=== PATIENT | female | born 1955 | race Caucasian/White ===

== ENCOUNTER 2017-08-08 10:49 | Day surgery (SDC) | payer MEDICARE, SELFPAY | END 2017-08-08 18:00 | disposition home or self-care (01) | PROVIDERS: Family Provider Family Medicine; PCP Family Medicine; Visit Provider Orthopaedic Surgery ==

== ENCOUNTER 2017-10-08 12:11 | Emergency (ER) | payer MEDICARE, MEDICAID, SELFPAY ==
[2017-10-08 12:27] VITALS: BP 122/83; PULSE 80; RESP 14; O2SAT 99
--- NOTE | 2017-10-08 12:49 | DI.CT.S_ITS ---
PROCEDURE: CT HEAD/BRAIN WO CON INDICATIONS: hx of cva headache one week TECHNIQUE: Noncontrast 4.5 mm thick angled axial sections acquired from the foramen magnum to the vertex, with coronal and sagittal reformats. For radiation dose reduction, the following was used: automated exposure control, adjustment of mA and/or kV according to patient size. COMPARISON: [facility], MR, STROKE PROTOCOL, 08/10/2017, 11:24. [facility], CT, HEAD WITHOUT CONTRAST, 08/10/2017, 6:31. [facility], CT, HEAD WITHOUT CONTRAST, 12/25/2014, 15:03. FINDINGS: Image quality: Excellent. CSF spaces: Basal cisterns are patent. No extra-axial fluid collections. The ventricles are symmetric in size and shape. Brain: No intracranial bleeds or masses. There is cerebral volume loss for age, with resultant ventricular and sulcal prominence. There are periventricular and deep white matter chronic small vessel ischemic changes. Old, small, lacunar infarcts involving the right globus pallidus, right internal capsule, right thalamus and right erickson radiata are stable compared to prior CT scan obtained 08/10/2017. Chronic infarct involving the left frontal centrum semiovale noted has undergone expected evolution in the interval since prior MRI obtained 08/10/17. There is intracranial internal carotid artery atherosclerosis. Skull and face: Calvarium and visualized facial bones appear intact, without suspicious lesions. Sinuses: Visualized sinuses and mastoids are clear. IMPRESSION: No acute intracranial disease process. Dictated by: Rosalinda Suazo MD, PhD on 10/08/2017 at 12:04 Approved by: Rosalinda Suazo MD, PhD on 10/08/2017 at 12:09
[2017-10-08 12:59] LABS: Hematocrit 39.6 % (36-46); Hemoglobin 13.3 g/dL (12.0-16.0); White Blood Cell Count 11.5 X10^3/uL (4.5-11.0)
[2017-10-08 13:00] VITALS: BP 122/83; PULSE 80; RESP 14; TEMP 36.9; O2SAT 99
[2017-10-08 13:00] LABS: Add Manual Diff / Slide Review NO; Basophils Percent Auto 0.2 % (0-2); Eosinophils Percent Auto 0.3 % (2-4); Mean Corpuscular HGB Conc 33.6 % (30-36); Mean Corpuscular Hemoglobin 30.9 PG (26-34); Mean Corpuscular Volume 92.1 fL (80-100); Monocytes Percent Auto 9.3 % (3-14); Neutrophils Absolute Auto 8600 /uL (3000-5900); Neutrophils Percent Auto 75.2 % (50-75); Platelet Count 269 X10^3/uL (150-400); Prothrombin Time 10.7 SECONDS (10.1-12.7); Red Cell Distribution Width 14.2 % (11.6-14.8)
--- NOTE | 2017-10-08 13:00 | ED_ITS ---
HPI - General Adult <Chucky GarciaGARY - Last Filed: 10/08/17 21:46> General Chief complaint: Diabetic Problem Stated complaint: LOW BLOOD PRESSURE, HIGH BLOOD SUGAR Time Seen by Provider: 10/08/17 12:16 History of Present Illness HPI narrative: 62-year-old female here for complaint of having high blood sugar and low blood pressure she was seen at her primary care provider office and sent to the emergency room for further evaluation. She was recently in [facility] due to recent history of a CVA secondary to hypertension. She reports that while she was there she was able to gain a 8-10 lb. However over the last few weeks she has been at home and she reports that she has lost 8 lb that she has not been eating while she just not has had the desire to eat and also having nausea. She denies any chest pain or shortness of breath she does report that she has had a headache on and off over the past week. No fevers or chills. She denies having any headache at this current time. She has a history of a poor diabetic control. She reports that she has been taking her insulin as prescribed and her blood pressure medicines as prescribed. Patient also complains that her left shoulder has been causing her pain and she is currently awaiting repair surgery to a previous fracture repair to left humerus. She states that she has a bump that feels different than it has before to her left shoulder she denies any trauma. She is alert and awake no acute distress Related Data Home Medications Medication Instructions Recorded Confirmed Marijuana 1 ea DAILY 10/08/17 10/08/17 acetaminophen 325 mg PO Q4HP PRN 10/08/17 10/08/17 atorvastatin 40 mg PO QPM 10/08/17 10/08/17 cholecalciferol (vitamin D3) 1,000 unit PO DAILY 10/08/17 10/08/17 [Vitamin D3] hydrocodone-acetaminophen 1 tab PO Q4H PRN 10/08/17 10/08/17 insulin aspart U-100 [Novolog 5 - 10 unit SQ QIDACHS 10/08/17 10/08/17 Flexpen U-100 Insulin] insulin glargine [Lantus Solostar 15 unit SQ HS 10/08/17 10/08/17 U-100 Insulin] multivitamin 1 tab PO DAILY 10/08/17 10/08/17 zolpidem 2.5 mg PO QHS 10/08/17 10/08/17 Previous Rx's Medication Instructions Recorded aspirin 325 mg PO QDAY #30 tab 08/13/17 mirtazapine 7.5 mg PO HS #30 d 08/13/17 ondansetron 4 mg PO Q6H PRN #10 tab 10/08/17 Allergies Allergy/AdvReac Type Severity Reaction Status Date / Time Iodine and Iodide Containing Allergy Unknown Verified 10/08/17 13:57 Produc [IODINE AND IODIDE CONTAINING PRODUC] latex [LATEX] Allergy Unknown Verified 10/08/17 13:57 Review of Systems <GARY Vincent - Last Filed: 10/08/17 21:46> Constitutional Reports headache(s) Eyes Denies change in vision, Denies eye discharge, Denies irritation and Denies loss of vision ENT Ears, Nose, Mouth, and Throat: Reports headache(s) Cardiovascular Denies dyspnea and Denies dyspnea on exertion Comments: Low blood pressure Respiratory Denies cough, Denies dyspnea, Denies dyspnea on exertion and Denies wheezing Gastrointestinal Gastrointestinal: Reports nausea Genitourinary Denies hematuria, Denies flank pain, Denies urinary incontinence and Denies urinary urgency Musculoskeletal Denies back pain, Denies muscle weakness, Denies numbness and Denies tingling Integumentary/Breasts Denies pruritus, Denies erythema, Denies rash and Denies wounds Neurologic Reports headache(s), Denies loss of vision, Denies numbness and Denies tingling Endocrine Comments: Elevated blood sugar Allergic/Immunologic Denies wheezing Exam <GARY Vincent - Last Filed: 10/08/17 21:46> Initial Vital Signs Initial Vital Signs: Vital Signs Pulse Rate 80 10/08/17 12:27 Respiratory Rate 14 10/08/17 12:27 Blood Pressure 122/83 H 10/08/17 12:27 Pulse Oximetry 99 10/08/17 12:27 Const General: frail appearing Nutritional Appearance: thin Orientation: alert, awake and oriented x3 HENMT Mouth: oral mucosae normal and moist mucous membranes Eyes General: appearance normal, both eyes and all related structures Eyelids: eyelids normal Conjunctivae: conjunctivae normal Sclera: sclerae normal Pupils: PERRL EOM: EOM intact bilaterally and No nystagmus Resp Effort & Inspection: normal respiratory effort, able to speak in complete sentences, no respiratory distress and no use of accessory muscles Auscultation: clear to auscultation bilaterally, no rales, no rhonchi and no wheezes Cardio Rate: regular rate Rhythm: regular rhythm Heart Sounds: no click, no gallops, no murmurs and no rubs GI Inspection: non-distended Palpation: soft, no hepatosplenomegaly, No guarding, No pulsatile mass and No tender Auscultation: normal bowel sounds Skin General: no rashes or lesions noted, No jaundice and No petechiae Neuro General: CN's II-XI intact bilaterally Cranial Nerves: tongue midline, hearing normal, able to rotate head bilaterally and No nystagmus Cognition: normal cognition Speech: speech normal Motor: strength 5/5 throughout Sensory Exam: no sensory deficits noted <Brown Gonsales DO - Last Filed: 10/15/17 18:12> Initial Vital Signs Initial Vital Signs: Vital Signs Pulse Rate 80 10/08/17 12:27 Respiratory Rate 14 10/08/17 12:27 Blood Pressure 122/83 H 10/08/17 12:27 Pulse Oximetry 99 10/08/17 12:27 Course <GARY Vincent - Last Filed: 10/08/17 21:46> Orders Ordered: Discontinued Medications Hydromorphone HCl (Dilaudid) 0.5 mg IV NOW ONE Stop: 10/08/17 13:47 Last Admin: 10/08/17 14:00 Dose: 0.5 mg Sodium Chloride (Normal Saline 0.9%) 1,000 mls @ 150 mls/hr IV CONT MIRIAM Last Infusion: 10/08/17 15:55 Dose: 150 mls/hr Admin: 10/08/17 14:01 Dose: 150 mls/hr Sodium Chloride (Normal Saline 0.9%) 500 mls @ 1,000 mls/hr IV BOLUS ONE Stop: 10/08/17 13:12 Last Infusion: 10/08/17 13:57 Dose: 0 mls/hr Admin: 10/08/17 13:41 Dose: 1,000 mls/hr Insulin Human Regular (Humulin R) 10 unit IV NOW ONE Stop: 10/08/17 12:45 Last Admin: 10/08/17 13:41 Dose: 10 unit Ondansetron HCl (Zofran) 4 mg IV NOW ONE Stop: 10/08/17 12:38 Last Admin: 10/08/17 13:41 Dose: 4 mg Vital Signs - 8 hr 10/08/17 14:00 10/08/17 14:53 10/08/17 15:46 Pulse Rate 81 73 76 Respiratory Rate 20 14 16 Blood Pressure [Left Arm] 112/64 106/70 107/69 Pulse Oximetry 98 98 98 <Brown Gonsales DO - Last Filed: 10/15/17 18:12> Orders Ordered: Discontinued Medications Hydromorphone HCl (Dilaudid) 0.5 mg IV NOW ONE Stop: 10/08/17 13:47 Last Admin: 10/08/17 14:00 Dose: 0.5 mg Sodium Chloride (Normal Saline 0.9%) 1,000 mls @ 150 mls/hr IV CONT MIRIAM Last Infusion: 10/08/17 15:55 Dose: 150 mls/hr Admin: 10/08/17 14:01 Dose: 150 mls/hr Sodium Chloride (Normal Saline 0.9%) 500 mls @ 1,000 mls/hr IV BOLUS ONE Stop: 10/08/17 13:12 Last Infusion: 10/08/17 13:57 Dose: 0 mls/hr Admin: 10/08/17 13:41 Dose: 1,000 mls/hr Insulin Human Regular (Humulin R) 10 unit IV NOW ONE Stop: 10/08/17 12:45 Last Admin: 10/08/17 13:41 Dose: 10 unit Ondansetron HCl (Zofran) 4 mg IV NOW ONE Stop: 10/08/17 12:38 Last Admin: 10/08/17 13:41 Dose: 4 mg Vital Signs - 8 hr 10/08/17 14:00 10/08/17 14:53 10/08/17 15:46 Pulse Rate 81 73 76 Respiratory Rate 20 14 16 Blood Pressure [Left Arm] 112/64 106/70 107/69 Pulse Oximetry 98 98 98 Medical Decision Making <GARY Vincent - Last Filed: 10/08/17 21:46> MDM Narrative Medical decision making narrative: Patient was given 500 mL fluids in the emergency room and 10 units of regular insulin which reduced her blood sugar. She had negative ketones in her urine or in her serum. Head CT was obtained and was negative for any acute findings. The x-ray of the left shoulder was obtained was also negative for any acute findings. Due to patient's weight loss and elevated blood sugar discussed case with hospitalist Dr. Vu about admission for failure to thrive and hyperglycemia and he would rather patient follow up with primary care provider with no admission at this time. Discussed case with Dr. Streeter for primary care provider who will follow up with patient here in the next day or 2. She is prescribed Zofran to help with the nausea.. She is instructed to hold her blood pressure medications until follow-up with primary care. Take insulin as directed. For any worsening symptoms return to the emergency room. Lab Data Result diagrams: 10/08/17 12:30 10/08/17 12:30 Lab Results 10/08/17 10/08/17 10/08/17 Range/Units 12:30 12:30 12:30 WBC 11.5 H (4.5-11.0) X10^3/uL RBC 4.30 (4.0-5.2) X10^6/uL Hgb 13.3 (12.0-16.0) g/dL Hct 39.6 (36-46) % MCV 92.1 (80-100) fL MCH 30.9 (26-34) PG MCHC 33.6 (30-36) % RDW 14.2 (11.6-14.8) % Plt Count 269 (150-400) X10^3/uL Neut % (Auto) 75.2 H (50-75) % Lymph % (Auto) 15.0 L (25-40) % Antelope % (Auto) 9.3 (3-14) % Eos % (Auto) 0.3 L (2-4) % Baso % (Auto) 0.2 (0-2) % Neut # (Auto) 8600 H (5085-9604) /uL PT (10.1-12.7) SECONDS INR (0.9-1.3) Sodium 133 L (137-145) mmol/L Potassium 5.5 H (3.4-5.1) mmol/L Chloride 93.0 L (98-107) mmol/L Carbon Dioxide 26.0 (22-32) mmol/L BUN 26.0 H (7-17) mg/dL Creatinine 0.70 (0.52-1.04) mg/dL Estimated GFR > 60.0 (>60) mL/min BUN/Creatinine Ratio 37.1 H (6-22) Glucose 477 H (80-110) mg/dL Calcium 9.4 (8.4-10.2) mg/dL Total Bilirubin 0.9 (0.2-1.3) mg/dL AST 74 H (14-36) IU/L ALT 113 H (9-52) IU/L Alkaline Phosphatase 127 H (38-126) U/L Total Creatine Kinase 42 (30-135) U/L Troponin I < 0.012 (0.01-0.034) ng/mL Total Protein 6.6 (6.3-8.2) g/dL Albumin 3.8 (3.5-5.0) g/dL Globulin 2.8 (1.7-4.1) g/dL Albumin/Globulin Ratio 1.4 (1.0-2.8) Ketones 0.09 (<0.27) mmol/L 10/08/17 Range/Units 12:30 WBC (4.5-11.0) X10^3/uL RBC (4.0-5.2) X10^6/uL Hgb (12.0-16.0) g/dL Hct (36-46) % MCV (80-100) fL MCH (26-34) PG MCHC (30-36) % RDW (11.6-14.8) % Plt Count (150-400) X10^3/uL Neut % (Auto) (50-75) % Lymph % (Auto) (25-40) % Antelope % (Auto) (3-14) % Eos % (Auto) (2-4) % Baso % (Auto) (0-2) % Neut # (Auto) (6562-7175) /uL PT 10.7 (10.1-12.7) SECONDS INR 1.0 (0.9-1.3) Sodium (137-145) mmol/L Potassium (3.4-5.1) mmol/L Chloride (98-107) mmol/L Carbon Dioxide (22-32) mmol/L BUN (7-17) mg/dL Creatinine (0.52-1.04) mg/dL Estimated GFR (>60) mL/min BUN/Creatinine Ratio (6-22) Glucose (80-110) mg/dL Calcium (8.4-10.2) mg/dL Total Bilirubin (0.2-1.3) mg/dL AST (14-36) IU/L ALT (9-52) IU/L Alkaline Phosphatase (38-126) U/L Total Creatine Kinase (30-135) U/L Troponin I (0.01-0.034) ng/mL Total Protein (6.3-8.2) g/dL Albumin (3.5-5.0) g/dL Globulin (1.7-4.1) g/dL Albumin/Globulin Ratio (1.0-2.8) Ketones (<0.27) mmol/L Imaging Data CT scan - head: Radiologist's impression: PROCEDURE: CT HEAD/BRAIN WO CON INDICATIONS: hx of cva headache one week TECHNIQUE: Noncontrast 4.5 mm thick angled axial sections acquired from the foramen magnum to the vertex, with coronal and sagittal reformats. For radiation dose reduction, the following was used: automated exposure control, adjustment of mA and/or kV according to patient size. COMPARISON: [facility], MR, STROKE PROTOCOL, 08/10/2017, 11:24. [facility], CT, HEAD WITHOUT CONTRAST, 08/10/2017, 6:31. [facility], CT, HEAD WITHOUT CONTRAST, 12/25/2014, 15:03. FINDINGS: Image quality: Excellent. CSF spaces: Basal cisterns are patent. No extra-axial fluid collections. The ventricles are symmetric in size and shape. Brain: No intracranial bleeds or masses. There is cerebral volume loss for age , with resultant ventricular and sulcal prominence. There are periventricular and deep white matter chronic small vessel ischemic changes. Old, small, lacunar infarcts involving the right globus pallidus, right internal capsule, right thalamus and right erickson radiata are stable compared to prior CT scan obtained 08/10/2017. Chronic infarct involving the left frontal centrum semiovale noted has undergone expected evolution in the interval since prior MRI obtained 08/10/17. There is intracranial internal carotid artery atherosclerosis. Skull and face: Calvarium and visualized facial bones appear intact, without suspicious lesions. Sinuses: Visualized sinuses and mastoids are clear. IMPRESSION: No acute intracranial disease process. Dictated by: Rosalinda Suazo MD, PhD on 10/08/2017 at 12:04 Approved by: Rosalinda Suazo MD, PhD on 10/08/2017 at 12:09 left shoulder: Radiologist's impression: PROCEDURE: XR SHOULDER LT MIN 2V INDICATIONS: ongoing pain to left shoulder TECHNIQUE: 3 views of the shoulder were acquired. COMPARISON: [facility], CR, SHOULDER MINIMUM 2 VIEW LEFT, 07/14/2017, 12: 42. [facility], CR, HUMERUS 2V LEFT, 07/17/2017, 20:04. [facility] [place], CR, XR SHOULDER 2+ VIEWS LEFT, 08/07/2017, 13:20. FINDINGS: Bones: There is a humeral head and neck fracture with superior migration of the humeral shaft. There is internal fixation with a surgical plate and multiple surgical screws. The alignment is unchanged from 08/07/18. No suspicious bony lesions. Visualized ribs appear intact. Soft tissues: No suspicious soft tissue calcifications. IMPRESSION: Stable alignment of left humeral head and neck fracture which is internally fixated. ECG Data Interpretation: EKG shows sinus rhythm with no ST elevation or depression. No ectopy. Ventricular rate is 75. Pr interval 158. QRS duration of 82. QTC of 422. <Brown Gonsales, DO - Last Filed: 10/15/17 18:12> Lab Data Lab Results 10/08/17 10/08/17 10/08/17 Range/Units 12:30 12:30 12:30 WBC 11.5 H (4.5-11.0) X10^3/uL RBC 4.30 (4.0-5.2) X10^6/uL Hgb 13.3 (12.0-16.0) g/dL Hct 39.6 (36-46) % MCV 92.1 (80-100) fL MCH 30.9 (26-34) PG MCHC 33.6 (30-36) % RDW 14.2 (11.6-14.8) % Plt Count 269 (150-400) X10^3/uL Neut % (Auto) 75.2 H (50-75) % Lymph % (Auto) 15.0 L (25-40) % Antelope % (Auto) 9.3 (3-14) % Eos % (Auto) 0.3 L (2-4) % Baso % (Auto) 0.2 (0-2) % Neut # (Auto) 8600 H (3322-3777) /uL PT (10.1-12.7) SECONDS INR (0.9-1.3) Sodium 133 L (137-145) mmol/L Potassium 5.5 H (3.4-5.1) mmol/L Chloride 93.0 L (98-107) mmol/L Carbon Dioxide 26.0 (22-32) mmol/L BUN 26.0 H (7-17) mg/dL Creatinine 0.70 (0.52-1.04) mg/dL Estimated GFR > 60.0 (>60) mL/min BUN/Creatinine Ratio 37.1 H (6-22) Glucose 477 H (80-110) mg/dL Calcium 9.4 (8.4-10.2) mg/dL Total Bilirubin 0.9 (0.2-1.3) mg/dL AST 74 H (14-36) IU/L ALT 113 H (9-52) IU/L Alkaline Phosphatase 127 H (38-126) U/L Total Creatine Kinase 42 (30-135) U/L Troponin I < 0.012 (0.01-0.034) ng/mL Total Protein 6.6 (6.3-8.2) g/dL Albumin 3.8 (3.5-5.0) g/dL Globulin 2.8 (1.7-4.1) g/dL Albumin/Globulin Ratio 1.4 (1.0-2.8) Ketones 0.09 (<0.27) mmol/L 10/08/17 Range/Units 12:30 WBC (4.5-11.0) X10^3/uL RBC (4.0-5.2) X10^6/uL Hgb (12.0-16.0) g/dL Hct (36-46) % MCV (80-100) fL MCH (26-34) PG MCHC (30-36) % RDW (11.6-14.8) % Plt Count (150-400) X10^3/uL Neut % (Auto) (50-75) % Lymph % (Auto) (25-40) % Antelope % (Auto) (3-14) % Eos % (Auto) (2-4) % Baso % (Auto) (0-2) % Neut # (Auto) (7396-5826) /uL PT 10.7 (10.1-12.7) SECONDS INR 1.0 (0.9-1.3) Sodium (137-145) mmol/L Potassium (3.4-5.1) mmol/L Chloride (98-107) mmol/L Carbon Dioxide (22-32) mmol/L BUN (7-17) mg/dL Creatinine (0.52-1.04) mg/dL Estimated GFR (>60) mL/min BUN/Creatinine Ratio (6-22) Glucose (80-110) mg/dL Calcium (8.4-10.2) mg/dL Total Bilirubin (0.2-1.3) mg/dL AST (14-36) IU/L ALT (9-52) IU/L Alkaline Phosphatase (38-126) U/L Total Creatine Kinase (30-135) U/L Troponin I (0.01-0.034) ng/mL Total Protein (6.3-8.2) g/dL Albumin (3.5-5.0) g/dL Globulin (1.7-4.1) g/dL Albumin/Globulin Ratio (1.0-2.8) Ketones (<0.27) mmol/L Discharge Plan Departure Patient Disposition: Home, Self-Care Clinical Impression: Hyperglycemia, Weight loss, non-intentional Discharge Date/Time: 10/08/17 15:59 Interventions: ED Discharge Assessment Last Done: 10/08/17 15:54 Instructions: DI for Hyperglycemia -- Adult Activity Restrictions/Additional Instructions: CT of the head was obtained was negative for any acute findings. X-ray of the left shoulder was also obtained was also negative. Blood sugar was elevated on arrival today year given fluids and insulin and it was able to lower the blood sugar. Blood pressure was normal today in the emergency room. However due to reported her blood pressure being low prior to arrival hold your blood pressure medicines until follow-up with primary care provider. Follow up with primary care provider tomorrow or the next day for re-evaluation. Continue use insulin as directed. You are prescribed Zofran to help with nausea also use as directed. Call primary care office tomorrow to schedule follow-up appointment tomorrow or the following day. For any worsening symptoms return to the emergency room. Prescriptions: New ondansetron 4 mg tablet,disintegrating 4 mg PO Q6H PRN (Reason: nausea and vomiting) Qty: 10 RF: 0 No Action aspirin 325 MG tablet,delayed release (DR/EC) 325 mg PO QDAY Qty: 30 RF: 0 mirtazapine 7.5 MG tablet 7.5 mg PO HS Qty: 30 RF: 0 Marijuana 1 ea DAILY RF: 0 multivitamin Tablet 1 tab PO DAILY RF: 0 atorvastatin 40 mg tablet 40 mg PO QPM RF: 0 hydrocodone-acetaminophen 5-325 mg tablet 1 tab PO Q4H PRN (Reason: humerus fx pain) RF: 0 zolpidem 5 mg tablet 2.5 mg PO QHS RF: 0 cholecalciferol (vitamin D3) [Vitamin D3] 1,000 unit Capsule 1,000 unit PO DAILY RF: 0 insulin aspart U-100 [Novolog Flexpen U-100 Insulin] 100 UNIT/1 ML insulin pen 5 - 10 unit SQ QIDACHS RF: 0 insulin glargine [Lantus Solostar U-100 Insulin] 100 UNIT/1 ML insulin pen 15 unit SQ HS RF: 0 acetaminophen 325 MG tablet 325 mg PO Q4HP PRN (Reason: Pain, Mild) RF: 0 Referrals: Jyoti Streeter MD [Primary Care Provider] - <Brown Gonsales DO - Last Filed: 10/15/17 18:12> Cosign ED Attending Shari Attestation: I was available for consultation during this patient's emergency department encounter
[2017-10-08 13:08] LABS: Alanine Aminotransferase 113 IU/L (9-52); Albumin 3.8 g/dL (3.5-5.0); Albumin Globulin Ratio 1.4 (1.0-2.8); Alkaline Phosphatase 127 U/L (38-126); Aspartate Aminotransferase 74 IU/L (14-36); BUN Creatinine Ratio 37.1 (6-22); Bilirubin Total 0.9 mg/dL (0.2-1.3); Calcium 9.4 mg/dL (8.4-10.2); Creatine Kinase 42 U/L (30-135); Estimated Glomerular Filt Rate > 60.0 mL/min (>60); Globulin 2.8 g/dL (1.7-4.1); Glucose 477 mg/dL (80-110); HEMOLYSIS < 15 (0-50); Sodium 133 mmol/L (137-145); Total Protein 6.6 g/dL (6.3-8.2)
[2017-10-08 13:18] LABS: Potassium 5.5 mmol/L (3.4-5.1)
[2017-10-08 13:20] LABS: Troponin I < 0.012 ng/mL (0.01-0.034)
[2017-10-08] MEDS: INSULIN REGULAR 100 UNIT/ML 3 ML VIAL 10 UNIT IV (13:41)
[2017-10-08] MEDS: ONDANSETRON 4 MG/2 ML INJ IV (13:41)
[2017-10-08] MEDS: SODIUM CHLORIDE 0.9% 500 ML 1000 ML IV (13:41)
[2017-10-08 13:43] LABS: Ketones (Beta-Hydroxybutyrate) 0.09 mmol/L (<0.27)
[2017-10-08 14:00] VITALS: BP 112/64; PULSE 81; RESP 20; O2SAT 98
[2017-10-08] MEDS: HYDROMORPHONE 0.5 MG INJ IV (14:00)
[2017-10-08] MEDS: SODIUM CHLORIDE 0.9% 1,000 ML 150 ML IV (14:01)
--- NOTE | 2017-10-08 14:14 | DI.RAD.S_ITS ---
PROCEDURE: XR SHOULDER LT MIN 2V INDICATIONS: ongoing pain to left shoulder TECHNIQUE: 3 views of the shoulder were acquired. COMPARISON: [facility], , SHOULDER MINIMUM 2 VIEW LEFT, 07/14/2017, 12:42. [facility], CR, HUMERUS 2V LEFT, 07/17/2017, 20:04. [facility] [place], CR, XR SHOULDER 2+ VIEWS LEFT, 08/07/2017, 13:20. FINDINGS: Bones: There is a humeral head and neck fracture with superior migration of the humeral shaft. There is internal fixation with a surgical plate and multiple surgical screws. The alignment is unchanged from 08/07/18. No suspicious bony lesions. Visualized ribs appear intact. Soft tissues: No suspicious soft tissue calcifications. IMPRESSION: Stable alignment of left humeral head and neck fracture which is internally fixated. Dictated by: Aristeo Mendoza M.D. on 10/08/2017 at 14:48 Approved by: Aristeo Mendoza M.D. on 10/08/2017 at 15:06
[2017-10-08 14:53] VITALS: BP 106/70; PULSE 73; RESP 14; O2SAT 98
[2017-10-08 15:46] VITALS: BP 107/69; PULSE 76; RESP 16; O2SAT 98
== END 2017-10-08 15:59 | disposition home or self-care (01) ==
PROVIDERS: Emergency Provider Nurse Practitioner Family; Family Provider Family Medicine; PCP Family Medicine
DX: R73.9 Hyperglycemia, unspecified (principal); R63.4 Abnormal weight loss; R51 Headache; R11.0 Nausea
CPT/HCPCS: 36591; 70450; 73030; 80053; 81003; 82009; 82550; 82553; 82962; 84484; 85025; 85610; 93005; 93041; 96361; 96374; 96375; 99285; J1170; J2405

== ENCOUNTER 2017-10-14 14:05 | Emergency (ER) | payer MEDICARE, MEDICAID, SELFPAY ==
[2017-10-14 14:12] VITALS: BP 130/75; PULSE 81; RESP 20; TEMP 36.6; O2SAT 100
[2017-10-14] MEDS: SODIUM CHLORIDE 0.9% 1,000 ML 1000 ML IV (14:25)
[2017-10-14 14:30] VITALS: BP 116/74; PULSE 76; RESP 18; O2SAT 99
[2017-10-14 14:35] LABS: pH VBG 7.37 (7.31-7.41)
--- NOTE | 2017-10-14 14:36 | PC.NURSE ---
bg >500 md aware
[2017-10-14 14:37] LABS: Add Manual Diff / Slide Review NO; Basophils Percent Auto 0.4 % (0-2); Eosinophils Percent Auto 0.8 % (2-4); Hematocrit 36.1 % (36-46); Lymphocytes Percent Auto 21.3 % (25-40); Mean Corpuscular HGB Conc 33.3 % (30-36); Mean Corpuscular Hemoglobin 31.5 PG (26-34); Mean Corpuscular Volume 94.5 fL (80-100); Monocytes Percent Auto 7.9 % (3-14); Neutrophils Absolute Auto 6000 /uL (3000-5900); Neutrophils Percent Auto 69.6 % (50-75); Platelet Count 191 X10^3/uL (150-400); Red Blood Cell Count 3.82 X10^6/uL (4.0-5.2); Red Cell Distribution Width 13.8 % (11.6-14.8); White Blood Cell Count 8.6 X10^3/uL (4.5-11.0)
[2017-10-14 14:52] LABS: Alanine Aminotransferase 170 IU/L (9-52); Albumin 3.1 g/dL (3.5-5.0); Albumin Globulin Ratio 1.1 (1.0-2.8); Alkaline Phosphatase 104 U/L (38-126); Aspartate Aminotransferase 187 IU/L (14-36); BUN Creatinine Ratio 23.3 (6-22); Bilirubin Total 0.5 mg/dL (0.2-1.3); Calcium 8.7 mg/dL (8.4-10.2); Estimated Glomerular Filt Rate > 60.0 mL/min (>60); Globulin 2.7 g/dL (1.7-4.1); HEMOLYSIS < 15 (0-50); Lactate (Lactic Acid) 2.7 mmol/L (0.7-2.1); Potassium 3.7 mmol/L (3.4-5.1); Sodium 134 mmol/L (137-145); Total Protein 5.8 g/dL (6.3-8.2)
[2017-10-14 14:58] LABS: Glucose 545 mg/dL (80-110)
[2017-10-14 15:13] LABS: Procalcitonin 0.08 ng/mL (<0.5)
[2017-10-14] MEDS: INSULIN REGULAR 100 UNIT/ML 3 ML VIAL 15 UNIT SUBCUT (15:20)
[2017-10-14 16:40] VITALS: BP 117/69; PULSE 67; RESP 18; O2SAT 99
[2017-10-14 16:57] VITALS: BP 109/61; PULSE 75; RESP 15; O2SAT 98
[2017-10-14 18:29] LABS: Reflexed Lactate in 2 Hours Y
--- NOTE | 2017-10-14 19:17 | ED_ITS ---
HPI - General Adult General Chief complaint: Diabetic Problem Stated complaint: 'SUGAR LVL IS OVER 600 AND WONT GO DOWN' Time Seen by Provider: 10/14/17 14:12 Source: patient and RN notes reviewed Mode of arrival: ambulatory Limitations: no limitations History of Present Illness HPI narrative: Patient is a 62-year-old female who presents with a high glucose. She is a very poorly controlled diabetic. She says she able of cinnamon toast crunch this morning on the noted that her blood sugar was more than 500. She denies any abdominal pain nausea or vomiting. They just noted that her Accu-Chek read high and they came to the emergency department. Her blood sugars yesterday have been about 250. Which is normal for her. She has no fever chills cough on or any other symptoms. Relieving factors: none Exacerbating factors: none Related Data Home Medications Medication Instructions Recorded Confirmed Marijuana 1 ea DAILY 10/08/17 10/08/17 acetaminophen 325 mg PO Q4HP PRN 10/08/17 10/08/17 atorvastatin 40 mg PO QPM 10/08/17 10/08/17 cholecalciferol (vitamin D3) 1,000 unit PO DAILY 10/08/17 10/08/17 [Vitamin D3] hydrocodone-acetaminophen 1 tab PO Q4H PRN 10/08/17 10/08/17 insulin aspart U-100 [Novolog 5 - 10 unit SQ QIDACHS 10/08/17 10/08/17 Flexpen U-100 Insulin] insulin glargine [Lantus Solostar 15 unit SQ HS 10/08/17 10/08/17 U-100 Insulin] multivitamin 1 tab PO DAILY 10/08/17 10/08/17 zolpidem 2.5 mg PO QHS 10/08/17 10/08/17 Previous Rx's Medication Instructions Recorded aspirin 325 mg PO QDAY #30 tab 08/13/17 mirtazapine 7.5 mg PO HS #30 d 08/13/17 ondansetron 4 mg PO Q6H PRN #10 tab 10/08/17 Allergies Allergy/AdvReac Type Severity Reaction Status Date / Time Iodine and Iodide Containing Allergy Unknown Verified 10/08/17 13:57 Produc [IODINE AND IODIDE CONTAINING PRODUC] latex [LATEX] Allergy Unknown Verified 10/08/17 13:57 Review of Systems Review of Systems All systems reviewed & are unremarkable except as noted in HPI and below Constitutional Denies chills, Denies fever(s), Denies lethargy and Denies weakness Cardiovascular Denies chest pain, Denies irregular heart rhythm, Denies lightheadedness, Denies palpitations, Denies dyspnea, Denies dyspnea on exertion and Denies orthopnea Respiratory Denies cough, Denies dyspnea, Denies dyspnea on exertion and Denies wheezing Gastrointestinal Gastrointestinal: Denies abdominal pain, Denies change in bowel habits, Denies diarrhea, Denies nausea and Denies vomiting Musculoskeletal Denies back pain, Denies muscle weakness, Denies numbness and Denies tingling Integumentary/Breasts Denies pruritus, Denies erythema, Denies rash and Denies wounds Neurologic Denies numbness, Denies tingling and Denies weakness Endocrine Denies palpitations Allergic/Immunologic Denies wheezing [facility] Medical History Diabetes (Acute) Exam Initial Vital Signs Initial Vital Signs: Vital Signs Temperature 97.8 F 10/14/17 14:12 Pulse Rate 81 10/14/17 14:12 Respiratory Rate 20 10/14/17 14:12 Blood Pressure 130/75 H 10/14/17 14:12 Pulse Oximetry 100 10/14/17 14:12 Const General: cooperative and well developed Nutritional Appearance: well nourished Orientation: alert, awake, oriented x3 and not confused Chest Chest: normal inspection of the chest Resp Effort & Inspection: normal respiratory effort, able to speak in complete sentences, no respiratory distress and no use of accessory muscles Auscultation: clear to auscultation bilaterally, no rales, no rhonchi and no wheezes Cardio Rate: regular rate Rhythm: regular rhythm Heart Sounds: no click, no gallops, no murmurs and no rubs Pulses: normal peripheral pulses GI Inspection: non-distended Palpation: soft, no hepatosplenomegaly, No guarding, No pulsatile mass and No tender Auscultation: normal bowel sounds Skin General: no rashes or lesions noted, No jaundice and No petechiae Neuro General: alert, oriented x3, gait normal and no focal motor deficits Speech: speech normal Course Orders Ordered: ED Orders 10/14/17 14:25 Complete Blood Count AUTO DIFF Stat Comprehensive Metabolic Panel Stat Ketones (Beta-Hydroxybutyrate) Stat Lactate (Lactic Acid) Stat Procalcitonin Stat 10/14/17 14:26 pH VBG Stat Discontinued Medications Sodium Chloride (Normal Saline 0.9%) 1,000 mls @ 1,000 mls/hr IV BOLUS ONE Stop: 10/14/17 15:13 Last Infusion: 10/14/17 16:18 Dose: 0 mls/hr Admin: 10/14/17 14:25 Dose: 1,000 mls/hr Insulin Human Regular (Humulin R) 15 unit SUBCUT NOW ONE Stop: 10/14/17 15:03 Last Admin: 10/14/17 15:20 Dose: 15 unit Vital Signs - 8 hr 10/14/17 14:12 10/14/17 14:30 10/14/17 16:40 Temperature 97.8 F Pulse Rate 81 76 67 Respiratory Rate 20 18 18 Blood Pressure 130/75 H 117/69 Blood Pressure [Right Arm] 116/74 Pulse Oximetry 100 99 99 10/14/17 16:57 Temperature Pulse Rate 75 Respiratory Rate 15 Blood Pressure Blood Pressure [Right Arm] 109/61 Pulse Oximetry 98 Medical Decision Making MDM Narrative Medical decision making narrative: She is given insulin Accu-Chek glucose is still falling. I recommended that she eat her dinner tonight and recheck her glucose. She probably does not need insulin tonight. This is follow her instructions from her primary care provider. She has no sign of DKA she is not acidotic. Lab Data Result diagrams: 10/14/17 14:25 10/14/17 14:25 Lab Results 10/14/17 10/14/17 10/14/17 Range/Units 14:25 14:25 14:25 WBC 8.6 (4.5-11.0) X10^3/uL RBC 3.82 L (4.0-5.2) X10^6/uL Hgb 12.0 (12.0-16.0) g/dL Hct 36.1 (36-46) % MCV 94.5 (80-100) fL MCH 31.5 (26-34) PG MCHC 33.3 (30-36) % RDW 13.8 (11.6-14.8) % Plt Count 191 (150-400) X10^3/uL Neut % (Auto) 69.6 (50-75) % Lymph % (Auto) 21.3 L (25-40) % [place] % (Auto) 7.9 (3-14) % Eos % (Auto) 0.8 L (2-4) % Baso % (Auto) 0.4 (0-2) % Neut # (Auto) 6000 H (0634-4836) /uL VBG pH (7.31-7.41) Sodium 134 L (137-145) mmol/L Potassium 3.7 D (3.4-5.1) mmol/L Chloride 97.0 L (98-107) mmol/L Carbon Dioxide 26.0 (22-32) mmol/L BUN 14.0 (7-17) mg/dL Creatinine 0.60 (0.52-1.04) mg/dL Estimated GFR > 60.0 (>60) mL/min BUN/Creatinine Ratio 23.3 H (6-22) Glucose 545 H* (80-110) mg/dL Lactate 2.7 H (0.7-2.1) mmol/L Calcium 8.7 (8.4-10.2) mg/dL Total Bilirubin 0.5 (0.2-1.3) mg/dL AST 187 H (14-36) IU/L ALT 170 H (9-52) IU/L Alkaline Phosphatase 104 (38-126) U/L Total Protein 5.8 L (6.3-8.2) g/dL Albumin 3.1 L (3.5-5.0) g/dL Globulin 2.7 (1.7-4.1) g/dL Albumin/Globulin Ratio 1.1 (1.0-2.8) Procalcitonin (<0.5) ng/mL Ketones 0.10 (<0.27) mmol/L 10/14/17 10/14/17 Range/Units 14:25 14:26 WBC (4.5-11.0) X10^3/uL RBC (4.0-5.2) X10^6/uL Hgb (12.0-16.0) g/dL Hct (36-46) % MCV (80-100) fL MCH (26-34) PG MCHC (30-36) % RDW (11.6-14.8) % Plt Count (150-400) X10^3/uL Neut % (Auto) (50-75) % Lymph % (Auto) (25-40) % [place] % (Auto) (3-14) % Eos % (Auto) (2-4) % Baso % (Auto) (0-2) % Neut # (Auto) (4735-5955) /uL VBG pH 7.37 (7.31-7.41) Sodium (137-145) mmol/L Potassium (3.4-5.1) mmol/L Chloride (98-107) mmol/L Carbon Dioxide (22-32) mmol/L BUN (7-17) mg/dL Creatinine (0.52-1.04) mg/dL Estimated GFR (>60) mL/min BUN/Creatinine Ratio (6-22) Glucose (80-110) mg/dL Lactate (0.7-2.1) mmol/L Calcium (8.4-10.2) mg/dL Total Bilirubin (0.2-1.3) mg/dL AST (14-36) IU/L ALT (9-52) IU/L Alkaline Phosphatase (38-126) U/L Total Protein (6.3-8.2) g/dL Albumin (3.5-5.0) g/dL Globulin (1.7-4.1) g/dL Albumin/Globulin Ratio (1.0-2.8) Procalcitonin 0.08 (<0.5) ng/mL Ketones (<0.27) mmol/L Discharge Plan Departure Patient Disposition: Home, Self-Care Clinical Impression: Hyperglycemia, Poorly controlled diabetes mellitus Discharge Date/Time: 10/14/17 16:40 Interventions: ED Discharge Assessment Last Done: 10/14/17 16:40 Instructions: Complications of Type 2 Diabetes, DI for Diabetes Type 1 -- Adult Activity Restrictions/Additional Instructions: *You have been diagnosed with hyperglycemia *What to do: -be sure to eat dinner tonight, check of glucose before dinner -Check glucose 3 times a day before meals, follow instructions from your primary care about when to give insulin *Take medications as directed *Follow up with your primary care provider in 2-3 days *Return to ER if you should have any new, worsening or concerning symptoms Prescriptions: No Action aspirin 325 MG tablet,delayed release (DR/EC) 325 mg PO QDAY Qty: 30 RF: 0 mirtazapine 7.5 MG tablet 7.5 mg PO HS Qty: 30 RF: 0 Marijuana 1 ea DAILY RF: 0 multivitamin Tablet 1 tab PO DAILY RF: 0 atorvastatin 40 mg tablet 40 mg PO QPM RF: 0 hydrocodone-acetaminophen 5-325 mg tablet 1 tab PO Q4H PRN (Reason: humerus fx pain) RF: 0 zolpidem 5 mg tablet 2.5 mg PO QHS RF: 0 cholecalciferol (vitamin D3) [Vitamin D3] 1,000 unit Capsule 1,000 unit PO DAILY RF: 0 insulin aspart U-100 [Novolog Flexpen U-100 Insulin] 100 UNIT/1 ML insulin pen 5 - 10 unit SQ QIDACHS RF: 0 insulin glargine [Lantus Solostar U-100 Insulin] 100 UNIT/1 ML insulin pen 15 unit SQ HS RF: 0 acetaminophen 325 MG tablet 325 mg PO Q4HP PRN (Reason: Pain, Mild) RF: 0 ondansetron 4 mg tablet,disintegrating 4 mg PO Q6H PRN (Reason: nausea and vomiting) Qty: 10 RF: 0 Referrals: Jyoti Streeter MD [Primary Care Provider] -
== END 2017-10-14 16:40 | disposition home or self-care (01) ==
PROVIDERS: Emergency Provider Emergency Medicine; Family Provider Family Medicine; PCP Family Medicine
DX: R73.9 Hyperglycemia, unspecified (principal); E10.65 Type 1 diabetes mellitus with hyperglycemia
CPT/HCPCS: 36415; 80053; 82009; 82962; 83605; 83986; 84145; 85025; 96360; 96361; 96372; 99283; 99284

== ENCOUNTER 2017-10-30 13:32 | Emergency (ER) | payer MEDICARE, MEDICAID, SELFPAY ==
--- NOTE | 2017-10-30 12:52 | PC.NURSE ---
pt having headche x 2 days, and a little out of it, smells of etoh, having hallucinations.
[2017-10-30 13:33] VITALS: BP 183/83; PULSE 64; RESP 17; TEMP 36.8; O2SAT 100
[2017-10-30 13:43] VITALS: BP 183/83; PULSE 64; RESP 17; TEMP 36.8; O2SAT 100; BMI 19.2
[2017-10-30 13:46] LABS: Bacteria Urine None Seen; WBC Urine None Seen (0-5/HPF)
--- NOTE | 2017-10-30 13:48 | ED.GENADULT ---
HPI - General Adult General Chief complaint: Hypertension Stated complaint: HALLUCINATIONS Time Seen by Provider: 10/30/17 13:48 Source: patient, family and EMS Mode of arrival: EMS Limitations: no limitations History of Present Illness HPI narrative: Patient is a 62-year-old female presenting with headache mom off and on for the last 2 days. She. Headache and then had a major stroke. She has no weakness no numbness or tingling or speech difficulty. Initial blood pressure was elevated but it does seem to be coming down now. She has not taken anything for her blood pressure. Home health thought that she was hallucinating. Her does not think that she has had change in mental status she does not seem to be hallucinating now. He appears alert and awake and not in any severe distress. She says this is not the worst headache of her life. Related Data Home Medications Medication Instructions Recorded Confirmed Marijuana 1 ea DAILY 10/08/17 10/30/17 acetaminophen 325 mg PO Q4HP PRN 10/08/17 10/30/17 atorvastatin 40 mg PO QPM 10/08/17 10/30/17 cholecalciferol (vitamin D3) 1,000 unit PO DAILY 10/08/17 10/30/17 [Vitamin D3] hydrocodone-acetaminophen 1 tab PO Q4H PRN 10/08/17 10/30/17 insulin aspart U-100 [Novolog 5 - 10 unit SQ QIDACHS 10/08/17 10/30/17 Flexpen U-100 Insulin] insulin glargine [Lantus Solostar 15 unit SQ HS 10/08/17 10/30/17 U-100 Insulin] multivitamin 1 tab PO DAILY 10/08/17 10/30/17 zolpidem 2.5 mg PO QHS 10/08/17 10/30/17 gabapentin 200 mg PO BID 10/30/17 10/30/17 lisinopril 40 mg PO DAILY 10/30/17 10/30/17 pen needle, diabetic [BD 10/30/17 10/30/17 Ultra-Fine Manuela Pen Needle] Previous Rx's Medication Instructions Recorded aspirin 325 mg PO QDAY #30 tab 08/13/17 mirtazapine 7.5 mg PO HS #30 d 08/13/17 Allergies Allergy/AdvReac Type Severity Reaction Status Date / Time Iodine and Iodide Containing Allergy Unknown Verified 10/08/17 13:57 Produc [IODINE AND IODIDE CONTAINING PRODUC] latex [LATEX] Allergy Unknown Verified 10/08/17 13:57 Review of Systems Review of Systems All systems reviewed & are unremarkable except as noted in HPI and below Constitutional Denies chills, Denies fever(s), Denies lethargy and Denies weakness Eyes Denies blurry vision, Denies change in vision, Denies diplopia, Denies eye discharge, Denies irritation and Denies loss of vision Cardiovascular Denies chest pain, Denies irregular heart rhythm, Denies lightheadedness, Denies palpitations, Denies dyspnea, Denies dyspnea on exertion and Denies orthopnea Respiratory Denies cough, Denies dyspnea, Denies dyspnea on exertion and Denies wheezing Musculoskeletal Denies back pain, Denies muscle weakness, Denies numbness and Denies tingling Integumentary/Breasts Denies pruritus, Denies erythema, Denies rash and Denies wounds Neurologic Reports system reviewed and no additional complaints, except as docu, Reports as per HPI, Denies loss of vision, Denies numbness, Denies tingling and Denies weakness Endocrine Denies palpitations Allergic/Immunologic Denies wheezing PFSH Medical History CVA (cerebral vascular accident) (Acute) Diabetes (Acute) Hypertension (Acute) Social History Smoking Status: Current every day smoker Exam Initial Vital Signs Initial Vital Signs: Vital Signs Temperature 98.2 F 10/30/17 13:33 Pulse Rate 64 10/30/17 13:33 Respiratory Rate 17 10/30/17 13:33 Blood Pressure 183/83 H 10/30/17 13:33 Pulse Oximetry 100 10/30/17 13:33 GENERAL: Well-appearing, well-nourished and in no acute distress. HEENT: Head atraumatic,EOMI, pupils reactive, face symmetric, CARDIOVASCULAR: Regular rate and rhythm without murmurs, rubs or gallops. RESPIRATORY: Breath sounds equal bilaterally, no wheezes rales or rhonchi. ABDOMEN: Soft, nontender. Normoactive bowel sounds all 4 quadrants. No guarding or rebound. EXTREMITIES: Normal range of motion, no clubbing or edema. Neurovascularly intact NEUROLOGICAL: Alert and oriented x4.Normal gait and speech. Cranial nerves II through XII grossly intact. Good [id number], good [id number], strength equal bilaterally, no dysarthria or aphasia, sensation in tact to soft touch bilaterally, no visual changes, no facial droop SKIN: Warm, dry, no laceration, no petechiae, no rashes or lesions. Scores NIH Stroke Scale Level of Conciousness: Alert, keenly responsive Ask month/age: Answers both questions correctly. Open/close eyes, close hand: Performs both tasks correctly Best gaze horizontal: Normal Visual cuevas: No visual loss Facial palsy: Normal symetrical movement Left arm drift: No drift for full 10 sec Right arm drift: No drift for full 10 sec Left leg drift: No drift for full 10 sec Right leg drift: No drift for full 10 sec Limb ataxia: Absent Sensory on face/arms/legs: Normal, no sensory loss Best language: No aphasia, normal Dysarthria: Normal Extinction or inattention: No abnormality Total NIH Stroke scale score: 0 Course Orders Ordered: ED Orders 10/30/17 13:30 Rapid Drug Screen, Urine Stat Urine Microscopic Stat 10/30/17 13:57 EKG-12 Lead Stat 10/30/17 14:03 CT head/brain wo con Stat 10/30/17 14:07 Complete Blood Count MAN DIFF Stat Comprehensive Metabolic Panel Stat Partial Thromboplastin Time Stat Prothrombin Time INR Stat Troponin I Stat Discontinued Medications Acetaminophen (Tylenol) 650 mg PO NOW ONE Stop: 10/30/17 13:59 Last Admin: 10/30/17 14:50 Dose: 650 mg Sodium Chloride (Normal Saline 0.9%) 1,000 mls @ 150 mls/hr IV CONT MIRIAM Last Infusion: 10/30/17 16:26 Dose: 0 mls/hr Infusion: 10/30/17 16:24 Dose: 150 mls/hr Admin: 10/30/17 14:50 Dose: 150 mls/hr Labetalol HCl (Trandate) 10 mg IV NOW ONE Stop: 10/30/17 14:55 Last Admin: 10/30/17 16:04 Dose: Not Given Vital Signs - 8 hr 10/30/17 13:33 10/30/17 13:43 10/30/17 14:30 Temperature 98.2 F 98.2 F Pulse Rate 64 64 63 Respiratory Rate 17 17 14 Blood Pressure 183/83 H Blood Pressure [Right Arm] 183/83 H 158/82 H Pulse Oximetry 100 100 98 10/30/17 15:00 10/30/17 15:30 10/30/17 16:00 Temperature Pulse Rate 62 63 63 Respiratory Rate 13 14 16 Blood Pressure Blood Pressure [Right Arm] 161/86 H 154/84 H 159/83 H Pulse Oximetry 98 98 98 Medical Decision Making MDM Narrative Medical decision making narrative: Patient's blood pressure has decreased without any intervention she has no focal deficits. She has a appears alert nontoxic her says that she is at baseline. Recommend continue with blood pressure medication. No changes at this time. Both feel ready and able to go. Lab Data Result diagrams: 10/30/17 14:07 10/30/17 14:07 Lab Results 10/30/17 10/30/17 10/30/17 Range/Units 13:30 13:30 13:30 WBC (4.5-11.0) X10^3/uL RBC (4.0-5.2) X10^6/uL Hgb (12.0-16.0) g/dL Hct (36-46) % MCV (80-100) fL MCH (26-34) PG MCHC (30-36) % RDW (11.6-14.8) % Plt Count (150-400) X10^3/uL Total Counted Seg Neutrophils % (38-70) % Lymphocytes % (Manual) (25-45) % Atypical Lymphs % ( - 0) % Monocytes % (Manual) (2-11) % Neutrophils # (Manual) ([id number]) /uL RBC Morphology PT (10.1-12.7) SECONDS INR (0.9-1.3) APTT (26.4-36.2) SECONDS Sodium (137-145) mmol/L Potassium (3.4-5.1) mmol/L Chloride (98-107) mmol/L Carbon Dioxide (22-32) mmol/L BUN (7-17) mg/dL Creatinine (0.52-1.04) mg/dL Estimated GFR (>60) mL/min BUN/Creatinine Ratio (6-22) Glucose (80-110) mg/dL Calcium (8.4-10.2) mg/dL Total Bilirubin (0.2-1.3) mg/dL AST (14-36) IU/L ALT (9-52) IU/L Alkaline Phosphatase (38-126) U/L Troponin I (0.01-0.034) ng/mL Total Protein (6.3-8.2) g/dL Albumin (3.5-5.0) g/dL Globulin (1.7-4.1) g/dL Albumin/Globulin Ratio (1.0-2.8) Urine RBC Cancelled 0-1/hpf Urine WBC Cancelled None seen Ur Squamous Epith Cells Cancelled 0-1 /hpf Ur Transition Epith Cell Cancelled Ur Renal Epithelial Cell Cancelled Calcium Oxalate Crystal Cancelled Uric Acid Crystals Cancelled Triple Phos Crystals Cancelled Other Crystals Cancelled Amorphous Sediment Cancelled Urine Bacteria Cancelled None seen Hyaline Casts Cancelled Granular Casts Cancelled RBC Casts Cancelled WBC Casts Cancelled Other Casts Cancelled Urine Mucus Cancelled Urine Trichomonas Cancelled Urine Yeast Cancelled Urine Sperm Cancelled Ur Culture Indicated? Cancelled Cult not indicated Micro UA Comment Cancelled Not Reportable Urine Opiates Screen Negative (Negative) Ur Oxycodone Screen Negative (Negative) Urine Methadone Screen Negative (Negative) Ur Barbiturates Screen Negative (Negative) U Tricyclic Antidepress Negative (Negative) Ur Phencyclidine Scrn Negative (Negative) Ur Amphetamines Screen Negative (Negative) U Methamphetamines Scrn Negative (Negative) Ur MDMA Scrn (Ecstasy) Negative (Negative) U Benzodiazepines Scrn Negative (Negative) Urine Cocaine Screen Negative (Negative) U Marijuana (THC) Screen Positive H (Negative) 10/30/17 10/30/17 10/30/17 Range/Units 14:07 14:07 14:07 WBC 9.6 (4.5-11.0) X10^3/uL RBC 3.56 L (4.0-5.2) X10^6/uL Hgb 11.3 L (12.0-16.0) g/dL Hct 32.9 L (36-46) % MCV 92.7 (80-100) fL MCH 31.7 (26-34) PG MCHC 34.2 (30-36) % RDW 14.4 (11.6-14.8) % Plt Count 197 (150-400) X10^3/uL Total Counted 100 Seg Neutrophils % 68.0 (38-70) % Lymphocytes % (Manual) 24.0 L (25-45) % Atypical Lymphs % 1.0 H ( - 0) % Monocytes % (Manual) 7.0 (2-11) % Neutrophils # (Manual) 6528 H (8309-4381) /uL RBC Morphology Normal morphology PT 10.9 (10.1-12.7) SECONDS INR 1.0 (0.9-1.3) APTT 25 L (26.4-36.2) SECONDS Sodium 140 (137-145) mmol/L Potassium 3.4 (3.4-5.1) mmol/L Chloride 105 (98-107) mmol/L Carbon Dioxide 25 (22-32) mmol/L BUN 8 (7-17) mg/dL Creatinine 0.40 L (0.52-1.04) mg/dL Estimated GFR > 60.0 (>60) mL/min BUN/Creatinine Ratio 20.0 (6-22) Glucose 120 H (80-110) mg/dL Calcium 8.8 (8.4-10.2) mg/dL Total Bilirubin 0.8 (0.2-1.3) mg/dL AST 48 H (14-36) IU/L ALT 71 H (9-52) IU/L Alkaline Phosphatase 82 (38-126) U/L Troponin I < 0.012 (0.01-0.034) ng/mL Total Protein 6.3 (6.3-8.2) g/dL Albumin 3.3 L (3.5-5.0) g/dL Globulin 3.0 (1.7-4.1) g/dL Albumin/Globulin Ratio 1.1 (1.0-2.8) Urine RBC Urine WBC Ur Squamous Epith Cells Ur Transition Epith Cell Ur Renal Epithelial Cell Calcium Oxalate Crystal Uric Acid Crystals Triple Phos Crystals Other Crystals Amorphous Sediment Urine Bacteria Hyaline Casts Granular Casts RBC Casts WBC Casts Other Casts Urine Mucus Urine Trichomonas Urine Yeast Urine Sperm Ur Culture Indicated? Micro UA Comment Urine Opiates Screen (Negative) Ur Oxycodone Screen (Negative) Urine Methadone Screen (Negative) Ur Barbiturates Screen (Negative) U Tricyclic Antidepress (Negative) Ur Phencyclidine Scrn (Negative) Ur Amphetamines Screen (Negative) U Methamphetamines Scrn (Negative) Ur MDMA Scrn (Ecstasy) (Negative) U Benzodiazepines Scrn (Negative) Urine Cocaine Screen (Negative) U Marijuana (THC) Screen (Negative) Imaging Data CT scan - head: Radiologist's impression: PROCEDURE: CT HEAD/BRAIN WO CON INDICATIONS: headache hx of cva TECHNIQUE: Noncontrast 4.5 mm thick angled axial sections acquired from the foramen magnum to the vertex, with coronal and sagittal reformats. For radiation dose reduction, the following was used: automated exposure control, adjustment of mA and/or kV according to patient size. COMPARISON: [facility], CT, CT HEAD/BRAIN WO CON, 10/08/2017, 12:43. FINDINGS: Image quality: Excellent. CSF spaces: Basal cisterns are patent. No extra-axial fluid collections. The ventricles are symmetric in size and shape. Brain: No intracranial bleeds or masses. There is cerebral volume loss for age, with resultant ventricular and sulcal prominence. There are periventricular and deep white matter chronic small vessel ischemic changes. There are small, comparing right basal ganglia lacunar infarcts. There is intracranial internal carotid artery atherosclerosis. Skull and face: Calvarium and visualized facial bones appear intact, without suspicious lesions. Sinuses: Visualized sinuses and mastoids are clear. IMPRESSION: 1. No acute intracranial findings. 2. Findings likely associated with chronic microvascular ischemic changes and old right basal ganglia lacunar infarcts. Dictated by: Marzena Starkey M.D. on 10/30/2017 at 14:12 ECG Data Attestation: I personally reviewed and interpreted this ECG as follows: Prior ECG tracings: available for review Interpretation: Normal sinus rhythm rate 55 no acute ischemia similar to previous EKGs Discharge Plan Departure Patient Disposition: Home, Self-Care Clinical Impression: Hypertension Discharge Date/Time: 10/30/17 16:27 Interventions: ED Discharge Assessment Last Done: 10/30/17 16:27 Activity Restrictions/Additional Instructions: *You have been diagnosed with high blood pressure *Continue to take medications as directed *Follow up with your primary care provider in 2-3 days *Return to ER if you should have weakness, worsening headache, persistent vomiting or any new, worsening or concerning symptoms Prescriptions: No Action aspirin 325 MG tablet,delayed release (DR/EC) 325 mg PO QDAY Qty: 30 RF: 0 mirtazapine 7.5 MG tablet 7.5 mg PO HS Qty: 30 RF: 0 Marijuana 1 ea DAILY RF: 0 multivitamin Tablet 1 tab PO DAILY RF: 0 atorvastatin 40 mg tablet 40 mg PO QPM RF: 0 hydrocodone-acetaminophen 5-325 mg tablet 1 tab PO Q4H PRN (Reason: humerus fx pain) RF: 0 zolpidem 5 mg tablet 2.5 mg PO QHS RF: 0 cholecalciferol (vitamin D3) [Vitamin D3] 1,000 unit Capsule 1,000 unit PO DAILY RF: 0 insulin aspart U-100 [Novolog Flexpen U-100 Insulin] 100 UNIT/1 ML insulin pen 5 - 10 unit SQ QIDACHS RF: 0 insulin glargine [Lantus Solostar U-100 Insulin] 100 UNIT/1 ML insulin pen 15 unit SQ HS RF: 0 acetaminophen 325 MG tablet 325 mg PO Q4HP PRN (Reason: Pain, Mild) RF: 0 gabapentin 100 mg Capsule 200 mg PO BID RF: 0 lisinopril 40 mg tablet 40 mg PO DAILY RF: 0 pen needle, diabetic [BD Ultra-Fine Manuela Pen Needle] 32 gauge x 5/32 needle RF: 0 Referrals: Jyoti Streeter MD [Primary Care Provider] -
[2017-10-30 13:54] LABS: Culture Indicated Urine Cult Not Indicated; RBC Urine 0-1/HPF (0-5/HPF); Squamous Epithelial Cell Urine 0-1 /HPF
[2017-10-30 13:55] LABS: Urine Amphetamines Negative (Negative); Urine Barbiturates Negative (Negative); Urine Benzodiazepines Negative (Negative); Urine Cocaine Negative (Negative); Urine MDMA Negative (Negative); Urine Methadone Negative (Negative); Urine Methamphetamines Negative (Negative); Urine Morphine/Opi cutoff 2000 Negative (Negative); Urine Oxycodone Negative (Negative); Urine Phencyclidine Negative (Negative); Urine Tetrahydrocannabinol Positive (Negative); Urine Tricyclic Antidepressant Negative (Negative)
--- NOTE | 2017-10-30 14:03 | DI.CT.S_ITS ---
PROCEDURE: CT HEAD/BRAIN WO CON INDICATIONS: headache hx of cva TECHNIQUE: Noncontrast 4.5 mm thick angled axial sections acquired from the foramen magnum to the vertex, with coronal and sagittal reformats. For radiation dose reduction, the following was used: automated exposure control, adjustment of mA and/or kV according to patient size. COMPARISON: [facility], CT, CT HEAD/BRAIN WO CON, 10/08/2017, 12:43. FINDINGS: Image quality: Excellent. CSF spaces: Basal cisterns are patent. No extra-axial fluid collections. The ventricles are symmetric in size and shape. Brain: No intracranial bleeds or masses. There is cerebral volume loss for age, with resultant ventricular and sulcal prominence. There are periventricular and deep white matter chronic small vessel ischemic changes. There are small, comparing right basal ganglia lacunar infarcts. There is intracranial internal carotid artery atherosclerosis. Skull and face: Calvarium and visualized facial bones appear intact, without suspicious lesions. Sinuses: Visualized sinuses and mastoids are clear. IMPRESSION: 1. No acute intracranial findings. 2. Findings likely associated with chronic microvascular ischemic changes and old right basal ganglia lacunar infarcts. Dictated by: Marzena Starkey M.D. on 10/30/2017 at 14:12 Approved by: Marzena Starkey M.D. on 10/30/2017 at 14:16
[2017-10-30 14:21] LABS: Hematocrit 32.9 % (36-46); Hemoglobin 11.3 g/dL (12.0-16.0); Mean Corpuscular HGB Conc 34.2 % (30-36); Mean Corpuscular Hemoglobin 31.7 PG (26-34); Mean Corpuscular Volume 92.7 fL (80-100); Platelet Count 197 X10^3/uL (150-400); Red Blood Cell Count 3.56 X10^6/uL (4.0-5.2); Red Cell Distribution Width 14.4 % (11.6-14.8); White Blood Cell Count 9.6 X10^3/uL (4.5-11.0)
[2017-10-30 14:29] LABS: Alanine Aminotransferase 71 IU/L (9-52); Albumin 3.3 g/dL (3.5-5.0); Albumin Globulin Ratio 1.1 (1.0-2.8); Alkaline Phosphatase 82 U/L (38-126); Aspartate Aminotransferase 48 IU/L (14-36); Bilirubin Total 0.8 mg/dL (0.2-1.3); Blood Urea Nitrogen 8 mg/dL (7-17); Calcium 8.8 mg/dL (8.4-10.2); Carbon Dioxide 25 mmol/L (22-32); Chloride 105 mmol/L (98-107); Estimated Glomerular Filt Rate > 60.0 mL/min (>60); Glucose 120 mg/dL (80-110); HEMOLYSIS < 15 (0-50); Potassium 3.4 mmol/L (3.4-5.1); Sodium 140 mmol/L (137-145); Total Protein 6.3 g/dL (6.3-8.2)
[2017-10-30 14:30] VITALS: BP 158/82; PULSE 63; RESP 14; O2SAT 98
[2017-10-30 14:40] LABS: Prothrombin Time 10.9 SECONDS (10.1-12.7); Troponin I < 0.012 ng/mL (0.01-0.034)
[2017-10-30 14:43] LABS: Neutrophils Absolute Manual 6528 /uL (3000-5900); PTT Partial Thromboplastin Tim 25 SECONDS (26.4-36.2); Total Cells Counted 100
[2017-10-30 14:44] LABS: RBC Morphology Normal Morphology
[2017-10-30] MEDS: ACETAMINOPHEN 325 MG TABLET 650 MG PO (14:50)
[2017-10-30] MEDS: SODIUM CHLORIDE 0.9% 1,000 ML 150 ML IV (14:50)
[2017-10-30 15:00] VITALS: BP 161/86; PULSE 62; RESP 13; O2SAT 98
[2017-10-30 15:30] VITALS: BP 154/84; PULSE 63; RESP 14; O2SAT 98
[2017-10-30 16:00] VITALS: BP 159/83; PULSE 63; RESP 16; O2SAT 98
== END 2017-10-30 16:27 | disposition home or self-care (01) ==
PROVIDERS: Nurse Practitioner Family; Emergency Provider Emergency Medicine; Family Provider Family Medicine; PCP Family Medicine
DX: I10 Essential (primary) hypertension (principal)
CPT/HCPCS: 36591; 70450; 80053; 80305; 81003; 81015; 84484; 85025; 85610; 85730; 93005; 96360; 96361; 99284; 99285

== ENCOUNTER 2017-11-10 15:20 | Emergency (ER) | payer MEDICARE, MEDICAID, SELFPAY ==
[2017-11-10 15:25] VITALS: BP 172/85; PULSE 81; RESP 16; TEMP 37.2; O2SAT 99; BMI 20.2
--- NOTE | 2017-11-10 15:45 | ED.HA ---
HPI - Headache General Chief Complaint: Headache Stated Complaint: Elevated BP Time Seen by Provider: 11/10/17 15:22 Source: patient Mode of arrival: EMS Limitations: no limitations History of Present Illness HPI Narrative: 62-year-old female who states that she has had a stroke in the past and since then has had high blood pressure and a daily headache here for evaluation by EMS for elevated blood pressure. Patient states that she is on 4 different blood pressure medicines that is managed by her primary doctor. She states that she did take her medicines this morning. She states that she is at her baseline headache. She is at her baseline numbness in her left hand. States that she took her blood pressure earlier today and the systolic blood pressure was in the 140s. She is unsure what her normal blood pressure runs at home. She called the hospital to see if she could come into the emergency department and was brought in by EMS. Related Data Home Medications Medication Instructions Recorded Confirmed Marijuana 1 ea DAILY 10/08/17 10/30/17 acetaminophen 325 mg PO Q4HP PRN 10/08/17 10/30/17 atorvastatin 40 mg PO QPM 10/08/17 10/30/17 cholecalciferol (vitamin D3) 1,000 unit PO DAILY 10/08/17 10/30/17 [Vitamin D3] hydrocodone-acetaminophen 1 tab PO Q4H PRN 10/08/17 10/30/17 insulin aspart U-100 [Novolog 5 - 10 unit SQ QIDACHS 10/08/17 10/30/17 Flexpen U-100 Insulin] insulin glargine [Lantus Solostar 15 unit SQ HS 10/08/17 10/30/17 U-100 Insulin] multivitamin 1 tab PO DAILY 10/08/17 10/30/17 zolpidem 2.5 mg PO QHS 10/08/17 10/30/17 gabapentin 200 mg PO BID 10/30/17 10/30/17 lisinopril 40 mg PO DAILY 10/30/17 10/30/17 pen needle, diabetic [BD 10/30/17 10/30/17 Ultra-Fine Manuela Pen Needle] Previous Rx's Medication Instructions Recorded aspirin 325 mg PO QDAY #30 tab 08/13/17 mirtazapine 7.5 mg PO HS #30 d 08/13/17 Allergies Allergy/AdvReac Type Severity Reaction Status Date / Time Iodine and Iodide Containing Allergy Unknown Verified 10/08/17 13:57 Produc [IODINE AND IODIDE CONTAINING PRODUC] latex [LATEX] Allergy Unknown Verified 10/08/17 13:57 Review of Systems Constitutional Denies fatigue, Denies fever(s), Reports headache(s) and Denies lethargy Eyes Denies blurry vision and Denies diplopia ENT Ears, Nose, Mouth, and Throat: Denies vertigo, Denies dizziness and Reports headache(s) Cardiovascular Denies chest pain, Denies edema, Denies palpitations, Denies dyspnea and Denies slow heart rate Respiratory Denies cough and Denies dyspnea Gastrointestinal Gastrointestinal: Denies constipation, Denies diarrhea, Denies nausea and Denies vomiting Genitourinary Denies dyspareunia and Denies dysuria Musculoskeletal Denies abnormal gait, Denies myalgias, Denies arthralgias and Reports numbness (Left hand but this is not new since her stroke) Integumentary/Breasts Denies lesions and Denies rash Neurologic Denies abnormal speech, Denies abnormal gait, Denies vertigo, Denies dizziness, Reports headache(s), Denies focal weakness, Reports numbness (Left hand but this is not new since her stroke) and Denies tremor(s) Endocrine Denies fatigue and Denies palpitations Hematologic/Lymphatic Denies easy bleeding and Denies easy bruising [facility] Medical History CVA (cerebral vascular accident) (Acute) Diabetes (Acute) Hypertension (Acute) Social History Smoking Status: Current every day smoker Exam Initial Vital Signs Initial Vital Signs: Vital Signs Temperature 98.9 F 11/10/17 15:25 Pulse Rate 81 11/10/17 15:25 Respiratory Rate 16 11/10/17 15:25 Blood Pressure 172/85 H 11/10/17 15:25 Pulse Oximetry 99 11/10/17 15:25 Const General: cooperative, healthy appearing, comfortable, well developed, well groomed and No acute distress Nutritional Appearance: average body habitus Orientation: alert, awake and oriented x3 Limitations: mental status not altered HENKY Head: normal to inspection, normocephalic and atraumatic Nose: external nose normal Face and sinus: normal facial exam Mouth: oral mucosae normal Resp Effort & Inspection: normal respiratory effort Auscultation: clear to auscultation bilaterally Cardio Rate: regular rate Rhythm: regular rhythm Pulses: radial pulses present GI Inspection: non-distended Palpation: soft, No firm and No guarding Back/Spine/Pelvis Back: normal to inspection and No CVA tenderness Skin Lesions: no lesions Rashes: no rashes Neuro General: alert, awake and oriented x3 Cranial Nerves: CN's II-XI intact bilaterally Cognition: normal cognition Speech: speech normal Gait: normal gait Motor: muscle tone normal throughout Other: Patient is alert oriented x3 GCS of 15 Numbness to palpation of the left hand from the fingers to the wrist circumferential otherwise normal neurologic exam Strength 5/5 bilateral upper and lower extremities Extrem General: normal to inspection Course Orders Ordered: Discontinued Medications Tramadol HCl (Ultram) 50 mg PO NOW ONE Stop: 11/10/17 15:53 Last Admin: 11/10/17 16:04 Dose: 50 mg Vital Signs - 8 hr 11/10/17 15:25 11/10/17 15:49 11/10/17 16:29 Temperature 98.9 F Pulse Rate 81 74 70 Respiratory Rate 16 14 12 Blood Pressure 172/85 H Blood Pressure [Right Arm] 171/90 H 171/82 H Pulse Oximetry 99 99 99 MDM - Headache MDM Narrative Medical decision making narrative: Patient arrived hypertensive with systolic blood pressures in the 180s. She is at her baseline with regard to her headache in her neurologic status. She is not having any chest pain or shortness of breath. During her stay here she did receive a tramadol for her headache. This was given because of elevated liver function test and the fact that she was told in the past that she should not take Tylenol. She states her headache is improving. Her blood pressure is improving as well. Had a long discussion with the patient and her who was at bedside regarding her symptoms and regarding blood pressure. She is on 4 different blood pressure medicine prescribed by her primary doctor. Will hold on head CT or any other workup for now. I have low suspicion for end-organ problem secondary to the blood pressure to include CVA, ACS, or pulmonary edema. Patient was given return precautions. Both the patient and the were in agreement with the plan and expressed understanding. Discharge Plan Departure Patient Disposition: Home, Self-Care Clinical Impression: Hypertension, Headache Instructions: High Blood Pressure (Hypertension) (Alternative Therapy), High Blood Pressure Activity Restrictions/Additional Instructions: I recommend that you take all of your medications as directed. Call your primary doctor tomorrow to discuss follow-up and to discuss your visit today. Return to the emergency department for any new symptoms, chest pain, problems breathing, change in her headache, change in the numbness in her hand, or any other concerning symptoms. Prescriptions: No Action aspirin 325 MG tablet,delayed release (DR/EC) 325 mg PO QDAY Qty: 30 RF: 0 mirtazapine 7.5 MG tablet 7.5 mg PO HS Qty: 30 RF: 0 Marijuana 1 ea DAILY RF: 0 multivitamin Tablet 1 tab PO DAILY RF: 0 atorvastatin 40 mg tablet 40 mg PO QPM RF: 0 hydrocodone-acetaminophen 5-325 mg tablet 1 tab PO Q4H PRN (Reason: humerus fx pain) RF: 0 zolpidem 5 mg tablet 2.5 mg PO QHS RF: 0 cholecalciferol (vitamin D3) [Vitamin D3] 1,000 unit Capsule 1,000 unit PO DAILY RF: 0 insulin aspart U-100 [Novolog Flexpen U-100 Insulin] 100 UNIT/1 ML insulin pen 5 - 10 unit SQ QIDACHS RF: 0 insulin glargine [Lantus Solostar U-100 Insulin] 100 UNIT/1 ML insulin pen 15 unit SQ HS RF: 0 acetaminophen 325 MG tablet 325 mg PO Q4HP PRN (Reason: Pain, Mild) RF: 0 gabapentin 100 mg Capsule 200 mg PO BID RF: 0 lisinopril 40 mg tablet 40 mg PO DAILY RF: 0 pen needle, diabetic [BD Ultra-Fine Manuela Pen Needle] 32 gauge x 5/32 needle RF: 0
[2017-11-10 15:49] VITALS: BP 171/90; PULSE 74; RESP 14; O2SAT 99
[2017-11-10] MEDS: TRAMADOL 50 MG TABLET PO (16:04)
[2017-11-10 16:29] VITALS: BP 171/82; PULSE 70; RESP 12; O2SAT 99
== END 2017-11-10 17:19 | disposition home or self-care (01) ==
PROVIDERS: Emergency Provider Emergency Medicine; Family Provider Family Medicine; PCP Family Medicine
DX: I10 Essential (primary) hypertension (principal); R51 Headache
CPT/HCPCS: 99282; 99283

== ENCOUNTER 2018-02-19 06:45 | Inpatient (IN) | payer MEDICARE, MEDICAID, SELFPAY ==
[2018-02-19] VITALS (8 sets, daily range): BP systolic 124–155; BP diastolic 71–88; PULSE 98–107; RESP 15–22; TEMP 36.4–36.8; O2SAT 96–99; BMI 18.2
--- NOTE | 2018-02-19 07:41 | ED.ABDPAIN ---
HPI - Abdominal Pain General Chief Complaint: Abdominal Pain Stated Complaint: vomiting not feeling well stroke in jun Time Seen by Provider: 02/19/18 07:00 Source: patient Mode of arrival: ambulatory Limitations: no limitations History of Present Illness HPI narrative: Patient states that she has been feeling that she has low energy lately. thinks this has been about 2 weeks. He also states that she has been a little more confused than usual for the last few days. Patient denies associated symptoms, other than vomiting, which has been going on for the last few days as. She has had no fevers; no abdominal pain, dysuria, cough, chest pain, shortness of breath, or back pain. Patient states she had a stroke back in June, and was in a rehab facility for several weeks. Since then, she has been home with her . She has had home health assistance several days a week since returning home, as well. states the patient has had some do agree of confusion since her CVA. He states that her manifestation of the CVA was aphasic, but that she did not have any motor deficits at the time. Patient and both deny any new symptoms concerning for a new CVA. No sick contacts. Severity scale (1-10): 1 Context: other ( See above) Related Data Home Medications Medication Instructions Recorded Confirmed Marijuana 1 ea DAILY 10/08/17 02/19/18 acetaminophen 325 mg PO Q4HP PRN 10/08/17 02/19/18 atorvastatin 40 mg PO QPM 10/08/17 02/19/18 cholecalciferol (vitamin D3) 3,000 unit PO DAILY 10/08/17 02/19/18 [Vitamin D3] insulin aspart U-100 [Novolog 5 - 10 unit SQ QIDACHS 10/08/17 02/19/18 Flexpen U-100 Insulin] insulin glargine [Lantus Solostar 16 unit SQ HS 10/08/17 02/19/18 U-100 Insulin] multivitamin 1 tab PO DAILY 10/08/17 02/19/18 zolpidem 2.5 mg PO QHS 10/08/17 02/19/18 lisinopril 40 mg PO DAILY 10/30/17 02/19/18 pen needle, diabetic [BD 10/30/17 02/19/18 Ultra-Fine Manuela Pen Needle] amlodipine 10 mg PO DAILY 02/19/18 02/19/18 chlorthalidone 25 mg PO DAILY 02/19/18 02/19/18 mirtazapine 3.75 mg PO HS 02/19/18 02/19/18 Allergies Allergy/AdvReac Type Severity Reaction Status Date / Time Iodine and Iodide Containing Allergy Unknown Verified 02/19/18 07:18 Produc [IODINE AND IODIDE CONTAINING PRODUC] latex [LATEX] Allergy Unknown Verified 02/19/18 07:18 Review of Systems Review of Systems All systems reviewed & are unremarkable except as noted in HPI and below Constitutional Denies chills, Denies fever(s), Denies lethargy and Denies weakness Eyes Denies change in vision, Denies eye discharge, Denies irritation and Denies loss of vision ENT Ears, Nose, Mouth, and Throat: Denies change in voice, Denies neck pain and Denies sore throat Cardiovascular Denies chest pain, Denies irregular heart rhythm, Denies lightheadedness, Denies palpitations, Denies dyspnea, Denies dyspnea on exertion and Denies orthopnea Respiratory Denies cough, Denies dyspnea, Denies dyspnea on exertion and Denies wheezing Gastrointestinal Gastrointestinal: Denies abdominal pain, Denies change in bowel habits, Denies diarrhea, Reports nausea and Reports vomiting Genitourinary Denies hematuria, Denies flank pain, Denies urinary incontinence and Denies urinary urgency Musculoskeletal Denies neck pain Integumentary/Breasts Denies pruritus, Denies erythema, Denies rash and Denies wounds Neurologic Denies confusion, Denies loss of vision and Denies weakness Psychiatric Denies anxiety, Denies confusion, Denies depression, Denies homicidal ideation and Denies suicidal ideation Endocrine Denies palpitations Hematologic/Lymphatic Denies easy bruising Allergic/Immunologic Denies wheezing [facility] Medical History CVA (cerebral vascular accident) (Acute) Diabetes (Acute) Hypertension (Acute) Surgical History No pertinent past surgical history (Acute) Social History household members: spouse Smoking Status: Current every day smoker alcohol intake: current Exam Initial Vital Signs Initial Vital Signs: Vital Signs Temperature 97.7 F 02/19/18 06:48 Pulse Rate 102 H 02/19/18 06:48 Respiratory Rate 18 02/19/18 06:48 Blood Pressure 124/86 02/19/18 06:48 Pulse Oximetry 99 02/19/18 06:48 Const General: cooperative and well developed Nutritional Appearance: well nourished Orientation: alert, awake, oriented x3 and not confused [facility] Head: normocephalic and atraumatic Ears: external ears normal Nose: external nose normal and No nasal discharge Face and sinus: face symmetric and No dry mucous membranes Mouth: oral mucosae normal and moist mucous membranes Teeth and gingiva: dentition normal Eyes General: appearance normal, both eyes and all related structures Eyelids: eyelids normal Conjunctivae: conjunctivae normal Sclera: sclerae normal Pupils: PERRL EOM: EOM intact bilaterally Neck Neck: normal visual inspection, trachea midline, No lymphadenopathy, No midline deformity and No JVD Lymphatic: No lymphedema Chest Chest: normal inspection of the chest Resp Effort & Inspection: normal respiratory effort, able to speak in complete sentences, no respiratory distress and no use of accessory muscles Auscultation: clear to auscultation bilaterally, no rales, no rhonchi and no wheezes Cardio Rate: regular rate Rhythm: regular rhythm Heart Sounds: no click, no gallops, no murmurs and no rubs Pulses: normal peripheral pulses GI Inspection: non-distended Palpation: soft, no hepatosplenomegaly, No guarding, No pulsatile mass and No tender Auscultation: normal bowel sounds Back/Spine/Pelvis Back: No CVA tenderness Cervical Spine: cervical ROM normal and No pain with cervical ROM Thoracic/Lumbar Spine: thoracic and lumbar spine normal to inspection Skin General: no rashes or lesions noted, No jaundice and No petechiae Neuro General: alert, oriented x3, gait normal and no focal motor deficits Speech: speech normal Extrem General: full ROM, no clubbing, cyanosis or edema, no pedal edema and no calf tenderness Psych Appearance: well kempt Mental Status: mental status grossly normal Attitude: cooperative Thought Content: normal and suicidality Judgment: judgment good Course Course Narrative: Patient was worked up with labs and UA. She was without specific complaints, other than the vomiting and weakness. She was given IV fluids and Zofran for symptomatic relief. The patient was found to have a creatinine that was elevated above her baseline. She was also found have a blood sugar of 522. She was given regular insulin 10 units IV for this, and this did bring her blood sugar down to 327. I did discuss the findings with the patient, and after speaking with patient and her , and felt that she patient should be admitted for observation, given her debility since her CVA, as well as her poorly controlled diabetes and recent vomiting. I am concerned that either her vomiting illness will cause her blood sugar to continued to climb, or that her use of the sliding scale as usual will be to severe, given her lack of p.o. intake with this illness. I feel this is better monitored in an inpatient setting. I spoke with Dr. Wolf, who agrees, and has agreed to admit the patient to her service. Patient is in agreement with this plan as is her . Orders Ordered: ED Orders 02/19/18 15:31 Consult to Dietitian, Adult Routine 02/19/18 15:36 Education, smoking cessation ONGOING 02/19/18 15:38 Consult to Occupational Therapy Evaluate & Treat Consult to Physical Therapy Evaluate & Treat 02/19/18 17:31 Amylase Routine CPK [Creatine Kinase] Routine Hemoglobin A1C % Routine Lipase Routine 02/20/18 05:00 Complete Blood Count AUTO DIFF Routine Comprehensive Metabolic Panel Routine Acetaminophen (Tylenol) 650 mg PO Q6HR PRN PRN Reason: As Needed for Fever/Mild Pain Hydrocodone Bitart/Acetaminophen ([place] 5/325) 1 tab PO Q4HR PRN PRN Reason: Pain, Moderate (4-6) Al Hydrox/Mg Hydrox/Simethicone (Maalox Plus) 30 ml PO Q6HR PRN PRN Reason: Dyspepsia Amlodipine Besylate (Norvasc) 10 mg PO DAILY MIRIAM Atorvastatin Calcium (Lipitor) 40 mg PO BEDTIME MIRIAM Chlorthalidone (Hygroton) 25 mg PO DAILY MIRIAM Dextrose (D50w) 25 gm IV PRN PRN; Protocol PRN Reason: Hypoglycemia Enoxaparin Sodium (Lovenox) 40 mg SUBCUT DAILY [facility] Sodium Chloride (Normal Saline 0.45%) 1,000 mls @ 100 mls/hr IV CONT MIRIAM Last Admin: 02/19/18 15:58 Dose: 100 mls/hr Insulin Aspart (Novolog Flexpen) 0 unit SUBCUT ACHS MIRIAM; Protocol Last Admin: 02/19/18 17:08 Dose: 4 unit Insulin Glargine (Lantus Solostar (Pen)) 20 unit SUBCUT BEDTIME [facility] Lisinopril (Zestril) 40 mg PO DAILY MIRIAM Metoclopramide HCl (Reglan) 10 mg IV Q6HR PRN PRN Reason: Nausea And Vomiting Mirtazapine (Remeron) 3.75 mg PO BEDTIME MIRIAM Morphine Sulfate (Morphine) 2 mg IV Q4HR PRN PRN Reason: Pain, Moderate (4-6) Ondansetron HCl (Zofran) 4 mg IV Q8HR PRN PRN Reason: Nausea And Vomiting Last Admin: 02/19/18 19:11 Dose: 4 mg Vitamin D (Vitamin D3) 4,000 unit PO DAILY [facility] Zolpidem Tartrate (Ambien) 2.5 mg PO BEDTIME PRN PRN Reason: Sleep Discontinued Medications Sodium Chloride (Normal Saline 0.9%) 1,000 mls @ 1,000 mls/hr IV BOLUS ONE Stop: 02/19/18 08:54 Last Infusion: 02/19/18 11:40 Dose: 0 mls/hr Admin: 02/19/18 08:43 Dose: 1,000 mls/hr Influenza Virus Vaccine (Flu Vaccine) 0.5 ml IM .ONCE ONE Stop: 02/19/18 15:32 Last Admin: 02/19/18 17:12 Dose: Insulin Human Regular (Humulin R) 10 unit IV NOW ONE Stop: 02/19/18 08:31 Last Admin: 02/19/18 09:17 Dose: 10 unit Ondansetron HCl (Zofran) 4 mg IV NOW ONE Stop: 02/19/18 07:56 Last Admin: 02/19/18 08:39 Dose: 4 mg Vital Signs - 8 hr 02/19/18 14:39 02/19/18 14:49 02/19/18 15:42 Temperature 97.6 F Pulse Rate 102 H 99 H 98 H Respiratory Rate 15 18 16 Blood Pressure 136/75 145/85 H Blood Pressure [Right Arm] 136/75 Pulse Oximetry 97 99 98 02/19/18 18:34 02/19/18 19:38 Temperature 97.7 F Pulse Rate 98 H Respiratory Rate 16 Blood Pressure 152/71 H Blood Pressure [Right Arm] Pulse Oximetry 96 98 MDM - Abdominal Pain Medical Records Attestation: I reviewed the patient's medical records. Lab Data Attestation: I reviewed the patient's lab results. Result diagrams: 02/19/18 07:50 02/19/18 07:50 Lab Results 02/19/18 02/19/18 02/19/18 Range/Units 07:50 07:50 07:50 WBC 11.7 H (4.5-11.0) X10^3/uL RBC 4.78 (4.0-5.2) X10^6/uL Hgb 14.8 (12.0-16.0) g/dL Hct 44.5 (36-46) % MCV 93.2 (80-100) fL MCH 31.0 (26-34) PG MCHC 33.3 (30-36) % RDW 14.0 (11.6-14.8) % Plt Count 252 (150-400) X10^3/uL Neut % (Auto) 74.8 (50-75) % Lymph % (Auto) 18.3 L (25-40) % [place] % (Auto) 6.5 (3-14) % Eos % (Auto) 0.1 L (2-4) % Baso % (Auto) 0.3 (0-2) % Neut # (Auto) 8800 H (2183-4048) /uL Sodium 136 L (137-145) mmol/L Potassium 4.8 (3.4-5.1) mmol/L Chloride 87 L (98-107) mmol/L Carbon Dioxide 17 L (22-32) mmol/L BUN 32 H (7-17) mg/dL Creatinine 1.10 H (0.52-1.04) mg/dL Estimated GFR 50.3 L (>60) mL/min BUN/Creatinine Ratio 29.1 H (6-22) Glucose 522 H* (80-110) mg/dL Hemoglobin A1c (4.0-6.0) % Calcium 9.4 (8.4-10.2) mg/dL Total Bilirubin 1.1 (0.2-1.3) mg/dL AST 68 H (14-36) IU/L ALT 58 H (9-52) IU/L Alkaline Phosphatase 114 (38-126) U/L Total Creatine Kinase (30-135) U/L Total Protein 7.3 (6.3-8.2) g/dL Albumin 4.5 (3.5-5.0) g/dL Globulin 2.8 (1.7-4.1) g/dL Albumin/Globulin Ratio 1.6 (1.0-2.8) Amylase (30-110) U/L Lipase (23-300) U/L Urine Color Yellow Urine Appearance Clear Urine pH 5.0 (4.5-8.0) Ur Specific [place] 1.025 (1.000-1.035) Urine Protein Trace H (Negative) Urine Glucose (UA) 2+ (Normal) g/dL Urine Ketones 3+ H (NEGATIVE) Urine Occult Blood Trace-lysed (Negative) Urine Nitrate Negative (Negative) Urine Bilirubin 1+ H (NEGATIVE) Urine Ictotest Negative (Negative) Urine Urobilinogen 0.2 (0.2) E.U./dL Ur Leukocyte Esterase Negative (NEGATIVE) Urine RBC 0-1/hpf (0-5/HPF) Urine WBC 0-1/hpf (0-5/HPF) Ur Squamous Epith Cells 1-5 /hpf Urine Bacteria Occasional (0-1) (None) Urine Yeast 1-5/hpf H (None) Ur Culture Indicated? Cult not indicated Micro UA Comment Not Reportable 02/19/18 02/19/18 02/19/18 Range/Units 17:31 17:31 17:31 WBC (4.5-11.0) X10^3/uL RBC (4.0-5.2) X10^6/uL Hgb (12.0-16.0) g/dL Hct (36-46) % MCV (80-100) fL MCH (26-34) PG MCHC (30-36) % RDW (11.6-14.8) % Plt Count (150-400) X10^3/uL Neut % (Auto) (50-75) % Lymph % (Auto) (25-40) % [place] % (Auto) (3-14) % Eos % (Auto) (2-4) % Baso % (Auto) (0-2) % Neut # (Auto) (1454-5029) /uL Sodium (137-145) mmol/L Potassium (3.4-5.1) mmol/L Chloride (98-107) mmol/L Carbon Dioxide (22-32) mmol/L BUN (7-17) mg/dL Creatinine (0.52-1.04) mg/dL Estimated GFR (>60) mL/min BUN/Creatinine Ratio (6-22) Glucose (80-110) mg/dL Hemoglobin A1c 11.3 H (4.0-6.0) % Calcium (8.4-10.2) mg/dL Total Bilirubin (0.2-1.3) mg/dL AST (14-36) IU/L ALT (9-52) IU/L Alkaline Phosphatase (38-126) U/L Total Creatine Kinase 104 (30-135) U/L Total Protein (6.3-8.2) g/dL Albumin (3.5-5.0) g/dL Globulin (1.7-4.1) g/dL Albumin/Globulin Ratio (1.0-2.8) Amylase 46 (30-110) U/L Lipase 20 L (23-300) U/L Urine Color Urine Appearance Urine pH (4.5-8.0) Ur Specific [place] (1.000-1.035) Urine Protein (Negative) Urine Glucose (UA) (Normal) g/dL Urine Ketones (NEGATIVE) Urine Occult Blood (Negative) Urine Nitrate (Negative) Urine Bilirubin (NEGATIVE) Urine Ictotest (Negative) Urine Urobilinogen (0.2) E.U./dL Ur Leukocyte Esterase (NEGATIVE) Urine RBC (0-5/HPF) Urine WBC (0-5/HPF) Ur Squamous Epith Cells Urine Bacteria (None) Urine Yeast (None) Ur Culture Indicated? Micro UA Comment Point of care testing: Point of Care Testing Glucose POC 348 Discharge Plan Departure Patient Disposition: Admitted as Observation Clinical Impression: Poorly controlled diabetes mellitus, Acute dehydration, Vomiting Discharge Date/Time: 02/19/18 14:49 Interventions: ED Discharge Assessment Last Done: 02/19/18 14:55 Admit Date/Time: 02/19/18 14:02 Admit Provider: Eliana Wolf
[2018-02-19 08:08] LABS: Add Manual Diff / Slide Review NO; Basophils Percent Auto 0.3 % (0-2); Eosinophils Percent Auto 0.1 % (2-4); Hematocrit 44.5 % (36-46); Hemoglobin 14.8 g/dL (12.0-16.0); Lymphocytes Percent Auto 18.3 % (25-40); Mean Corpuscular HGB Conc 33.3 % (30-36); Mean Corpuscular Volume 93.2 fL (80-100); Monocytes Percent Auto 6.5 % (3-14); Neutrophils Absolute Auto 8800 /uL (3000-5900); Neutrophils Percent Auto 74.8 % (50-75); Platelet Count 252 X10^3/uL (150-400); Red Blood Cell Count 4.78 X10^6/uL (4.0-5.2); White Blood Cell Count 11.7 X10^3/uL (4.5-11.0)
[2018-02-19 08:17] LABS: Alanine Aminotransferase 58 IU/L (9-52); Albumin 4.5 g/dL (3.5-5.0); Albumin Globulin Ratio 1.6 (1.0-2.8); Alkaline Phosphatase 114 U/L (38-126); Aspartate Aminotransferase 68 IU/L (14-36); BUN Creatinine Ratio 29.1 (6-22); Bilirubin Total 1.1 mg/dL (0.2-1.3); Blood Urea Nitrogen 32 mg/dL (7-17); Calcium 9.4 mg/dL (8.4-10.2); Carbon Dioxide 17 mmol/L (22-32); Chloride 87 mmol/L (98-107); Estimated Glomerular Filt Rate 50.3 mL/min (>60); Globulin 2.8 g/dL (1.7-4.1); Potassium 4.8 mmol/L (3.4-5.1); Sodium 136 mmol/L (137-145); Total Protein 7.3 g/dL (6.3-8.2)
[2018-02-19 08:27] LABS: HEMOLYSIS 43 (0-50)
[2018-02-19 08:29] LABS: Glucose 522 mg/dL (80-110)
[2018-02-19] MEDS: ONDANSETRON 4 MG/2 ML INJ IV ×2 (08:39→19:11)
[2018-02-19] MEDS: SODIUM CHLORIDE 0.9% 1,000 ML 1000 ML IV (08:43)
[2018-02-19] MEDS: INSULIN REGULAR 100 UNIT/ML 3 ML VIAL 10 UNIT IV (09:17)
[2018-02-19 09:33] LABS: Appearance Urine UA CLEAR; Bilirubin Urine UA 1+ (NEGATIVE); Color Urine UA YELLOW; Glucose Urine UA 2+ g/dL (Normal); Ketones Urine UA 3+ (NEGATIVE); Leukocyte Esterase Urine UA NEGATIVE (NEGATIVE); Nitrite Urine UA Negative (Negative); Occult Blood Urine UA TRACE-LYSED (Negative); Protein Urine UA TRACE (Negative); Specific Gravity Urine UA 1.025 (1.000-1.035); Urobilinogen Urine UA 0.2 E.U./dL (0.2)
[2018-02-19 09:38] LABS: RBC Urine 0-1/HPF (0-5/HPF); Squamous Epithelial Cell Urine 1-5 /HPF; WBC Urine 0-1/HPF (0-5/HPF)
[2018-02-19 09:39] LABS: Bacteria Urine Occasional (0-1); Ictotest Urine Negative (Negative)
[2018-02-19 09:40] LABS: Culture Indicated Urine Cult Not Indicated
--- NOTE | 2018-02-19 15:50 | PM.PN.1 ---
Subjective Date Patient Seen: 02/19/18 Interval history: Patient is a 63-year-old female with type 2 diabetes, hypertension, hyperlipidemia, recent stroke 4 months ago, who was previously at a rehab facility. Patient reports a week after she got home she became very weak. Since that time she has had persistent nausea. She had emesis x1 yesterday. She has been taking her insulin. However the patient does admit to being forgetful. She is unclear about what her blood sugars have been. And it is unclear whether she has been taking her sliding scale insulin appropriately. She does report taking 16 units of NPH at night. The patient reports 1 episode of vomiting yesterday.no hematemesis, melena, or bright red blood per rectum. Patient denies any dysphagia, odynophagia, or heartburn. She reports she has lost 10 lb since leaving rehab. She has poor appetite. She denies any shortness of breath. She denies chest pain. She denies palpitations. She denies fever or chills. She has no headache. She has chronic blurred vision. Patient is weak in her left arm and leg since her stroke. She has a walker at home which she uses intermittently. The patient denies any dysuria hematuria or pyuria. She has no joint pains or rashes. She denies any lower extremities. Further review of systems is negative. Exam Vital Signs (past 8 hours): - 02/19/18 11:29 02/19/18 14:39 02/19/18 14:49 Temperature Pulse Rate 107 H 102 H 99 H Respiratory Rate 15 15 18 Blood Pressure 136/75 Blood Pressure [Right Arm] 125/80 136/75 Pulse Oximetry 98 97 99 02/19/18 15:42 Temperature 97.6 F Pulse Rate 98 H Respiratory Rate 16 Blood Pressure 145/85 H Blood Pressure [Right Arm] Pulse Oximetry 98 Oxygen Delivery Method Room Air Narrative Exam Narrative: Pleasant female in no acute distress HEENT, normocephalic atraumatic, pupils equal and reactive to light, extraocular muscles are intact, no facial asymmetry, mucous membranes are moist. Neck neck supple, without adenopathy Lungs: Clear to auscultation Cardiac exam: Regular rate rhythm normal S1 and S2 Abdomen: Soft nontender nondistended without hepatosplenomegaly Extremities: No edema Neuro exam: Cranial nerves are intact, strength is 4/5 in the left upper extremity and left lower extremity, sensation grossly intact, reflexes are equal, gait is not assessed Objective Labs Result Diagrams: 02/19/18 07:50 02/19/18 07:50 Labs: Laboratory Results - last 24 hr 02/19/18 02/19/18 02/19/18 07:50 07:50 07:50 WBC 11.7 H RBC 4.78 Hgb 14.8 Hct 44.5 MCV 93.2 MCH 31.0 MCHC 33.3 RDW 14.0 Plt Count 252 Neut % (Auto) 74.8 Lymph % (Auto) 18.3 L [place] % (Auto) 6.5 Eos % (Auto) 0.1 L Baso % (Auto) 0.3 Neut # (Auto) 8800 H Sodium 136 L Potassium 4.8 Chloride 87 L Carbon Dioxide 17 L BUN 32 H Creatinine 1.10 H Estimated GFR 50.3 L BUN/Creatinine Ratio 29.1 H Glucose 522 H* Calcium 9.4 Total Bilirubin 1.1 AST 68 H ALT 58 H Alkaline Phosphatase 114 Total Protein 7.3 Albumin 4.5 Globulin 2.8 Albumin/Globulin Ratio 1.6 Urine Color Yellow Urine Appearance Clear Urine pH 5.0 Ur Specific [place] 1.025 Urine Protein Trace H Urine Glucose (UA) 2+ Urine Ketones 3+ H Urine Occult Blood Trace-lysed Urine Nitrate Negative Urine Bilirubin 1+ H Urine Ictotest Negative Urine Urobilinogen 0.2 Ur Leukocyte Esterase Negative Urine RBC 0-1/hpf Urine WBC 0-1/hpf Ur Squamous Epith Cells 1-5 /hpf Urine Bacteria Occasional (0-1) Urine Yeast 1-5/hpf H Ur Culture Indicated? Cult not indicated Micro UA Comment Not Reportable Assessment & Plan (1) Acute dehydration: Problem details: Continue IV hydration Current visit: Yes Status: Acute (2) Vomiting: Problem details: Continue Reglan. Will obtain abdominal ultrasound to rule out intra-abdominal pathology Qualifiers: Nausea presence: with nausea Vomiting Intractability: non-intractable Vomiting type: unspecified Qualified Code(s): R11.2 - Nausea with vomiting, unspecified Current visit: Yes Status: Acute (3) Poorly controlled diabetes mellitus: Problem details: Will start her on Lantus at 20 units. Will cover her with a sliding scale of insulin at and HS Current visit: Yes Status: Acute (4) Weight loss, non-intentional: Problem details: Likely related to poor oral intake Current visit: No Status: Acute (5) Nausea: Problem details: Continue Reglan Current visit: No Status: Acute (6) Fatigue: Problem details: PT OT consultation will obtain a CPK to rule out the possibility of myositis Current visit: No Status: Acute (7) Hypertension: Problem details: Continue usual medications Current visit: Yes Status: Acute (8) CVA, old, alterations of sensations: Current visit: Yes Status: Acute (9) Memory change: Current visit: Yes Status: Acute (10) Hyperlipidemia: Problem details: Continue statin Current visit: Yes Status: Acute Quality VTE Deep Vein Thrombosis/Pulmonary Embolism Present on Admission: No
[2018-02-19] MEDS: SODIUM CHLORIDE 0.45% 1,000 ML 100 ML IV (15:58)
[2018-02-19] MEDS: INSULIN ASPART 100 UNIT/ML INSULN PEN SUBCUT ×2 (17:08→21:14)
--- NOTE | 2018-02-19 17:32 | PT.IIE ---
Current Diagnoses Type 2 diabetes mellitus with hyperglycemia (02/19/18) Hyperlipidemia, unspecified (02/19/18) Dehydration (02/19/18) Essential (primary) hypertension (02/19/18) Other sequelae of cerebral infarction (02/19/18) Nausea (02/19/18) Nausea with vomiting, unspecified (02/19/18) Unspecified disturbances of skin sensation (02/19/18) Other amnesia (02/19/18) Other fatigue (02/19/18) Abnormal weight loss (02/19/18) Surgical History (Last Reviewed 02/19/18 @ 08:00 by Rosalie Peterson MD) No pertinent past surgical history (Acute) Medical History (Last Reviewed 02/19/18 @ 08:00 by Rosalie Peterson MD) CVA (cerebral vascular accident) (Acute) Diabetes (Acute) Hypertension (Acute) Physical Therapy Inpatient Evaluation/Re-Eval M1 PT/OT-IP Prior Functional Status Start: 02/19/18 17:06 Freq: NEEDED Status: Active Protocol: Document 02/19/18 17:08 EA (Rec: 02/19/18 17:32 EA [id number]) Medical Review Prior Functional Status Medical History Reviewed Yes Diet/Fluid Consistency Regular Communication Slight memory issue. Mobility and Gait Indep with no AD with abulity to ambulate withing the back yard Prior Functional Level (Other details) Lives with her Social History Household Members spouse Living Arrangements House Number of Floors (Floors) One Floor Home Equipment Four Wheel Walker Quad Cane Employment Status Retired M2 PT-IP Current Condition Start: 02/19/18 17:06 Freq: NEEDED Status: Active Protocol: Document 02/19/18 17:08 EA (Rec: 02/19/18 17:32 EA [id number]) Physical Therapy Current Condition Current Condition Evaluation Date 02/19/18 Treatment Diagnosis Muscle weakness Onset Date weeks ago Weight Bearing Status Weight Bearing Status Full Weight Bearing M3 PT-IP Subjective Start: 02/19/18 17:06 Freq: NEEDED Status: Active Protocol: Document 02/19/18 17:08 EA (Rec: 02/19/18 17:32 EA [id number]) Subjective Physical Therapy Visit Type Type Initial Evaluation Visit Start Time 16:35 Visit Stop Time 17:05 Total Visit Minutes 30 Physical Therapy Visit Comments Patient Comments Patient states that she was able to transfer in the bathroom with no support and assistive device today but with standy by assist; states she had no fall in the past 2- 3 months. Patient also reports she uses walker at home if she likes it. Patient Goals Patient wants to go home once nauseated feeling disappear. M4 PT-IP Mobility and Gait Start: 02/19/18 17:06 Freq: NEEDED Status: Active Protocol: Document 02/19/18 17:08 EA (Rec: 02/19/18 17:32 EA [id number]) PT-Bed Mobility Assessment Rolling Level of Assist Independent Supine to Sit Supine to Sit Independent Sit to Supine Sit to Supine Independent Scooting Scooting to Edge of Bed Independent PT-Transfer Assessment Sit to and From Stand Sit to and from Stand Standby Assistance Equipment Transfer Assistive Device None Transfers Transfer Destination Bed Chair Toilet Transfer Technique stepping Transfer Ability Level of Assist Standby Assistance Comments Mobility Comments Patient was able to mobilize with no sings of instability or SOB and able to navigate bathroom. Gait Assessment Gait Gait Assistance Required: Standby Assistance Distance (Feet) 30 Assistive Devices Assistive Device None Gait Deviations General Gait Pattern Within Normal Limits Comments Gait Comments No gait deviation noted at this time. PT-Balance Assessment Sitting Balance and Reactions Static Sitting Balance Ability Good Dynamic Sitting Balance Ability Good Standing Balance and Reactions Static Standing Balance Ability Good Dynamic Standing Balance Ability Good M5 PT-IP Objective Assessments Start: 02/19/18 17:06 Freq: NEEDED Status: Active Protocol: Document 02/19/18 17:08 EA (Rec: 02/19/18 17:32 EA [id number]) Orientation Orientation/Cognition Level of Alertness Alert Orientation Age Month Date Year Place Language Function Ability No Deficits Noted Safety Awareness Understands Safety Issues Memory Description No Deficits Noted Gross Range of Motion Upper Extremity ROM Assessment Left Impaired Impairments shoulder injury/pain Lower Extremity ROM Assessment Within Functional Limits Strength Upper Extremity Strength Assessment Left Impaired Shoulder LOM with pain Lower Extremity Strength Assessment Within Functional Limits Comments Strength Comments Patient strength to both LE's are WFL. Coordination Assessment Assessment Finger to Nose Test Normal Performance Heel on Price Test Normal Performance Sensation Assessment Sensation Gross Sensation WNL Light Touch Intact Proprioception (Position) Intact M6 PT-IP Treatment Start: 02/19/18 17:06 Freq: NEEDED Status: Active Protocol: Document 02/19/18 17:08 EA (Rec: 02/19/18 17:32 EA [id number]) Physical Therapy Treatment Education Education Provided Precautions M7 PT-IP Assessment and Plan Start: 02/19/18 17:06 Freq: NEEDED Status: Active Protocol: Document 02/19/18 17:08 KONSTANTIN (Rec: 02/19/18 17:32 EA [id number]) PT Summary Assessment and Plan Potential Status of Condition at Evaluation Stable Summary Impairments ROM Strength Assessment Summary Pt demonstrates safe mobility during transfers and ambulation with no use of assistive device with SBA. No instability and difficulty during mobility noted. Patient is not a good candidate for skilled physical therapy at this time. Patient will benefit with nursing staff hallway ambulation as tolerated to maintain mobility endurance. Frequency of Treatment Frequency Of Treatment Discharge Recommendations To Nursing Amount of Assist Needed Standby Assistance Discharge Recommendations PT Discharge Recommendations Outpatient PT
[2018-02-19 18:10] LABS: Hemoglobin A1C% w Est Avg Glu 11.3 % (4.0-6.0)
[2018-02-19 18:20] LABS: Amylase 46 U/L (30-110); Lipase 20 U/L (23-300)
[2018-02-19 18:27] LABS: Creatine Kinase 104 U/L (30-135)
[2018-02-19] MEDS: MIRTAZAPINE 7.5 MG TABLET 3.75 MG PO (21:13)
[2018-02-19] MEDS: ATORVASTATIN 20 MG TABLET 40 MG PO (21:13)
[2018-02-19] MEDS: INSULIN GLARGINE 100 UNIT/ML 3ML PEN 20 UNIT SUBCUT (21:13)
[2018-02-20] VITALS (8 sets, daily range): BP systolic 98–156; BP diastolic 62–86; PULSE 81–102; RESP 16–20; TEMP 36.5–36.9; O2SAT 94–97; BMI 16.5
--- NOTE | 2018-02-20 | DI.US.S_ITS ---
PROCEDURE: US ABDOMEN COMPLETE INDICATIONS: nausea/weightloss TECHNIQUE: Real-time scanning was performed of the abdominal and retroperitoneal organs, with image documentation. COMPARISON: [facility], CT, ABDOMEN/PELVIS WITH CONTRAST, 04/11/2017, 12:38. [facility], US, ABDOMEN COMPLETE, 08/04/2015, 16:15. FINDINGS: Liver: The liver is normal in size and echogenicity. No focal liver lesions are identified. Multiple thoracostomy his are identified within the region of the andreina hepatis, similar to the prior CT. Gallbladder: The gallbladder is surgically absent. Biliary ducts: No intrahepatic biliary dilatation is evident. The common bile duct was not definitely seen related to overlying bowel gas. Pancreas: Obscured by bowel gas. Spleen: Spleen is normal in size and homogeneous in echotexture. Kidneys: Kidneys are normal in size and echotexture. Right kidney measures 12.0 cm long; left kidney measures 12.0 cm long. No hydronephrosis or nephrolithiasis. No solid masses. Aorta: Obscured by bowel gas. Iliacs: Obscured by bowel gas. IVC: Obscured by bowel gas. Miscellaneous: No free abdominal fluid. Prominent gastric varicosities are evident. IMPRESSION: 1. 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 This is not well evaluated on this exam. The need for better characterization, utilizing three-phase contrast-enhanced CT of the abdomen may be determined clinically. 2. Status post cholecystectomy. 3. No ascites. Dictated by: Marvin Perez M.D. on 02/20/2018 at 9:59 Approved by: Marvin Perez M.D. on 02/20/2018 at 10:03
[2018-02-20 06:02] LABS: Add Manual Diff / Slide Review NO; Basophils Percent Auto 0.5 % (0-2); Hematocrit 40.7 % (36-46); Hemoglobin 13.8 g/dL (12.0-16.0); Mean Corpuscular HGB Conc 33.9 % (30-36); Mean Corpuscular Hemoglobin 30.6 PG (26-34); Mean Corpuscular Volume 90.1 fL (80-100); Monocytes Percent Auto 8.8 % (3-14); Neutrophils Absolute Auto 15600 /uL (3000-5900); Neutrophils Percent Auto 82.7 % (50-75); Platelet Count 226 X10^3/uL (150-400); Red Blood Cell Count 4.51 X10^6/uL (4.0-5.2); Red Cell Distribution Width 13.5 % (11.6-14.8); White Blood Cell Count 18.8 X10^3/uL (4.5-11.0)
[2018-02-20 06:30] LABS: Alanine Aminotransferase 49 IU/L (9-52); Albumin 3.6 g/dL (3.5-5.0); Albumin Globulin Ratio 1.3 (1.0-2.8); Alkaline Phosphatase 85 U/L (38-126); Aspartate Aminotransferase 43 IU/L (14-36); BUN Creatinine Ratio 38.9 (6-22); Bilirubin Total 0.8 mg/dL (0.2-1.3); Blood Urea Nitrogen 35 mg/dL (7-17); Calcium 8.6 mg/dL (8.4-10.2); Carbon Dioxide 28 mmol/L (22-32); Chloride 96 mmol/L (98-107); Estimated Glomerular Filt Rate > 60.0 mL/min (>60); Globulin 2.7 g/dL (1.7-4.1); Glucose 196 mg/dL (80-110); HEMOLYSIS < 15 (0-50); Potassium 3.4 mmol/L (3.4-5.1); Sodium 136 mmol/L (137-145); Total Protein 6.3 g/dL (6.3-8.2)
[2018-02-20] MEDS: ONDANSETRON 4 MG/2 ML INJ IV (08:36)
[2018-02-20] MEDS: ENOXAPARIN 40 MG/0.4 ML SYRINGE SUBCUT (08:50)
[2018-02-20] MEDS: CHLORTHALIDONE 25 MG TABLET PO (09:00)
[2018-02-20] MEDS: AMLODIPINE 5 MG TABLET 10 MG PO (09:00)
[2018-02-20] MEDS: LISINOPRIL 20 MG TABLET 40 MG PO (09:01)
[2018-02-20] MEDS: CHOLECALCIFEROL (VITAMIN D3) 1,000 UNIT TABLET 4000 UNIT PO (09:01)
[2018-02-20] MEDS: INSULIN ASPART 100 UNIT/ML INSULN PEN SUBCUT ×3 (09:02→21:26)
[2018-02-20] MEDS: HYDROCODONE/ACET 5/325 TABLET 1 TAB PO (09:03)
[2018-02-20] MEDS: MORPHINE 2 MG/ML INJ IV (11:33)
[2018-02-20] MEDS: METOCLOPRAMIDE 10 MG/2 ML INJ IV (11:34)
--- NOTE | 2018-02-20 11:46 | CM.DANOTE ---
DCP: Case received, EMR reviewed and met with patient. Introduced self and role. DCP template completed with information currently available. Patient is a 63 year old female who admitted yesterday afternoon to the care of the hospitalist team. PCP: Dr. Streeter, works for [email or web address]. Payer: confirmed: Medicare/Medicaid. Patient came in with symptoms of vomiting, as well as generalized weakness. Was noted to have high blood sugars as well. Patient lives at home with spouse, spouse is gone cardiology tech until afternoon, and patient is home along. Is to be checking her blood sugars 4 times a day. P: Discussed home health with in room. Stated that she has had [facility] before, but was not happy with them not always being on time. Stated that she had therapy last August. Gave him the Medicare Choice List, and he feels that [facility] may be beneficial for patient. Is in agreement that patient would benefit with some nursing visits to go over medications, and note blood sugars. DCP will continue to assess. If plan is for home health, will have provider sign face to face when ready to discharge. Anika Camarillo RN/[employer]
--- NOTE | 2018-02-20 12:02 | PC.NURSE ---
Am shift note Pt is A/o x2, forgetful at times. Spouse at bedside to assist in assessment. L sided weakness CVA Hx 4 months ago. Pain to ABD 5/10 Mild nausea. Medicated for both. IVF infusing. Call light in reach. BA active.
[2018-02-20] MEDS: SODIUM CHLORIDE 0.45% 1,000 ML 100 ML IV (12:32)
--- NOTE | 2018-02-20 15:37 | ST.IPIE ---
Current Diagnoses Type 2 diabetes mellitus with hyperglycemia (02/19/18) Hyperlipidemia, unspecified (02/19/18) Dehydration (02/19/18) Essential (primary) hypertension (02/19/18) Other sequelae of cerebral infarction (02/19/18) Nausea (02/19/18) Nausea with vomiting, unspecified (02/19/18) Unspecified disturbances of skin sensation (02/19/18) Other amnesia (02/19/18) Other fatigue (02/19/18) Abnormal weight loss (02/19/18) Past Medical History (Last Updated 02/20/18 @ 11:27 by Marnie Osborne RN) Gallbladder disease (Chronic Medical) Pt had gallbladder removed in 2009, reports the Surgeon clipped too close to the bile duct requiring stent procedures every 3 months x3 years, Pt stopped stents d/t financial strain, and overall lack of improvement after surgeries. CVA (cerebral vascular accident) (Acute Medical) Diabetes (Acute Medical) Hypertension (Acute Medical) ST IP Initial Evaulation Report PEDIATRIC UROLOGIST Cognitive/Memory Evaluation Start: 02/20/18 15:20 Freq: Status: Active Protocol: Document 02/20/18 15:20 TLC (Rec: 02/20/18 15:30 TLC [id number]) Evaluation of Cognition Session Time Visit Start Time 14:15 Visit Stop Time 14:50 Total Visit Minutes 35 Next Note Type Next Note Type Treatment Note Referral Referring Physician Dr. Wolf Reason for Referral Cognitive evaluation for discharge planning Past Medical History Patient History Medical History: see above Vision Comments Reading glasses Previous Therapy Previous Speech-Language Therapy Yes History of Therapy At [facility] in July during previous stay and at [facility] - - Cognition Orientation Skill Level WFL Attention Skill Level Mildly Impaired Problem Solving/Reasoning/Judgment Skill Level Moderately Impaired Divergent Naming Skill Level Mildly Impaired Auditory Math Skill Level Moderately Impaired Clock Drawing Skill Level Moderately Impaired - Memory Short Term Memory Skill Level Moderately Impaired Immediate Recall Skill Level Moderately Impaired - Findings Cognitive/Memory Impressions Patient scored 17/30 on Alcides Cognitive Assessment indicating moderate cognitive impairment. Patient had most difficulty completing executive function and short term memory tasks. She was oriented to self, place and date. She had difficulty with simple math such as 100-7 and was not able to recall 5 items immediately after presentation on 3 trials. Recommendations Recommendations It is recommended that patient receive speech therapy services upon discharge in order to assist in cognitive training for functional tasks such as medication management and managing finances at home and to increase safety awareness in her home environment. Patient would benefit from 1:1 supervision if she returns home in order to ensure her safety and compliance with medical recommendations including use of a sliding scale for managing her diabetes. Treatment Goals Short Term Goals Kristine will participate in immediate and short term memory tasks in order to improve functional recall related to medication management at home. Kristine will complete executive function tasks related to home activities (planning, sequencing tasks) in order to improve overall cognitive function for improved safety at home. Total Time Full Evaluation Time 35
--- NOTE | 2018-02-20 15:45 | PT.IPRE ---
Current Diagnoses Type 2 diabetes mellitus with hyperglycemia (02/19/18) Hyperlipidemia, unspecified (02/19/18) Dehydration (02/19/18) Essential (primary) hypertension (02/19/18) Other sequelae of cerebral infarction (02/19/18) Nausea (02/19/18) Nausea with vomiting, unspecified (02/19/18) Unspecified disturbances of skin sensation (02/19/18) Other amnesia (02/19/18) Other fatigue (02/19/18) Abnormal weight loss (02/19/18) Surgical History (Last Updated 02/20/18 @ 11:27 by Marnie Osborne, RN) No pertinent past surgical history (Acute) Medical History (Last Updated 02/20/18 @ 11:27 by Marnie Osborne, RN) Gallbladder disease (Chronic) CVA (cerebral vascular accident) (Acute) Diabetes (Acute) Hypertension (Acute) Physical Therapy Inpatient Evaluation/Re-Eval M1 PT/OT-IP Prior Functional Status Start: 02/19/18 17:06 Freq: NEEDED Status: Active Protocol: Document 02/20/18 15:45 DLM (Rec: 02/20/18 17:47 DLM [id number]) Medical Review Prior Functional Status Medical History Reviewed Yes Diet/Fluid Consistency Regular Communication Slight memory issue. Mobility and Gait Indep with no AD with ability to ambulate in the house, holds to furniture and holly, intermittently uses a wheeled walker but does not like it, more likely to use wheeled walker in community Activities of Daily Living and IADL's Pt states able to do all ADl' s and per pt only needing assist for medication management. Pt states at times uses 4WW. She pays bills online. She lets the dog out using a sliding patio door. She stands for showers but has a rail to hold. Has difficulty with sit-stand from toilet so using a raised seat . Prior Functional Level (Other details) Lives with her , works from 4AM to 3pm. Social History Household Members spouse Living Arrangements House Number of Floors (Floors) One Floor Home Environment Standard Height Toilet Tub/Shower Home Equipment Four Wheel Walker Straight Cane Shower Seat with Backrest Hand Held Shower Employment Status Retired Additional Social History Comment went to SNF then had HHC after her stroke M1 PT/OT-IP Prior Functional Status Start: 02/20/18 12:34 Freq: NEEDED Status: Active Protocol: Document 02/20/18 10:23 [facility] (Rec: 02/20/18 16:48 [facility] [id number]) Medical Review Prior Functional Status Medical History Reviewed Yes Diet/Fluid Consistency Regular Communication Slight memory issue. Mobility and Gait Indep with no AD with abulity to ambulate withing the back yard Activities of Daily Living and IADL's Pt states able to do all ADl' s and per pt only needing assist for medication management. Pt states at times uses 4WW. Prior Functional Level (Other details) Lives with her , works from 4AM to 3pm. Social History Household Members spouse Living Arrangements House Home Environment Standard Height Toilet Tub/Shower Home Equipment Four Wheel Walker Straight Cane Shower Seat with Backrest Hand Held Shower M2 PT-IP Current Condition Start: 02/19/18 17:06 Freq: NEEDED Status: Active Protocol: Document 02/20/18 15:45 DLM (Rec: 02/20/18 17:47 DLM [id number]) Physical Therapy Current Condition Current Condition Evaluation Date 02/19/18 Treatment Diagnosis Muscle weakness Onset Date 02/19/18 Weight Bearing Status Weight Bearing Status Full Weight Bearing M3 PT-IP Subjective Start: 02/19/18 17:06 Freq: NEEDED Status: Active Protocol: Document 02/20/18 15:45 DLM (Rec: 02/20/18 17:47 DLM [id number]) Subjective Physical Therapy Visit Type Type Re-Evaluation Visit Start Time 15:10 Visit Stop Time 15:45 Total Visit Minutes 35 Notes request by OT to reassess due to increased difficulty ambulating during OT eval Number of MULTI SKILLED OPERATOR Visits 0 Physical Therapy Visit Comments Patient Comments She reports she is tired Patient Goals wants to go back home Therapy Pain Assessment Pain When Pain Assessed At Rest Pain Present Pain Present Pain Reported Location Abdomen Intensity 4 Scale Used Numeric (1 - 10) Description Aching M4 PT-IP Mobility and Gait Start: 02/19/18 17:06 Freq: NEEDED Status: Active Protocol: Document 02/20/18 15:45 DLM (Rec: 02/20/18 17:47 DLM [id number]) PT-Bed Mobility Assessment Rolling Type of Rolling Roll to Right Level of Assist Independent Supine to Sit Supine to Sit Independent Sit to Supine Sit to Supine Independent Scooting Scooting to Edge of Bed Independent PT-Transfer Assessment Sit to and From Stand Sit to and from Stand Standby Assistance Equipment Transfer Assistive Device None Transfers Transfer Destination Chair Transfer Technique Stand Step Pivot Transfer Ability Level of Assist Standby Assistance Comments Mobility Comments lateral instability identified during mobility, pt reaches for things to hold to steady self Gait Assessment Gait Gait Assistance Required: Standby Assistance Distance (Feet) 240 Assistive Devices Assistive Device None Gait Deviations General Gait Pattern Wide Based Gait Factors Limiting Gait Function Factors Limiting Gait Function Decreased Activity Tolerance Decreased Strength Poor Balance Comments Gait Comments she shows decreased weight shift to left side and even in bilateral stance has most of her weight on the right side, lateral instability noted during gait and she reaches out for furniture and holly to steady herself, inconsistent step pattern during gait PT-Balance Assessment Sitting Balance and Reactions Static Sitting Balance Ability Good Dynamic Sitting Balance Ability Good Standing Balance and Reactions Static Standing Balance Ability Good Dynamic Standing Balance Ability Fair Balance Tests Single Limb Standing right can hold 3 sec, unable to hold on left Romberg increased sway but no loss of balance M5 PT-IP Objective Assessments Start: 02/19/18 17:06 Freq: NEEDED Status: Active Protocol: Document 02/20/18 15:45 DLM (Rec: 02/20/18 17:47 DLM [id number]) Orientation Orientation/Cognition Level of Alertness Alert Orientation Name Age Birthday Month Date Year Day of Week Place Situation Language Function Ability No Deficits Noted Safety Awareness Understands Safety Issues Memory Description Short Term Impaired Test Technician Impaired Comments slow speed of mental processing noted, cooperative, good effort with therapy, verbalizes frustration with her health problems but states no understanding of them Gross Range of Motion Upper Extremity ROM Assessment Left Impaired Impairments shoulder injury/pain Lower Extremity ROM Assessment Within Functional Limits Strength Upper Extremity Strength Assessment Left Impaired Lower Extremity Strength Assessment Bilaterally Impaired Hip hip flexion 4/5 Knee knees 4+/5 Ankle DF 5/5 Coordination Assessment Gross Coordination Gross Coordination WNL Sensation Assessment Sensation Gross Sensation WNL Muscle Tone Muscle Tone WNL Yes M6 PT-IP Treatment Start: 02/19/18 17:06 Freq: NEEDED Status: Active Protocol: Document 02/20/18 15:45 DLM (Rec: 02/20/18 17:47 DLM [id number]) Physical Therapy Treatment Education Education Provided Safety M7 PT-IP Assessment and Plan Start: 02/19/18 17:06 Freq: NEEDED Status: Active Protocol: Document 02/20/18 15:45 DLM (Rec: 02/20/18 17:47 DLM [id number]) PT Summary Assessment and Plan Potential Rehabilitation Potential Good Status of Condition at Evaluation Evolving Summary Impairments Pain ROM Strength Balance Transfers Gait Activity Tolerance Assessment Summary Per staff reports pt has been inconsistant in her ability to ambulate and her activity tolerance today. Unclear if fatigue is a significant factor in this variability. She is resistant to using an assistive device for gait and prefers to hold furniture when needed. Her was not present so home safety issues could not be discussed with him. Recommend home health PT at discharge to continue to address her deficits and assess her home safety. Goals Transfer Goal Independent Gait Goal Independent Cane Gait Distance 300 feet Days to Meet Goals 2 Frequency of Treatment Frequency Of Treatment Once a Day Treatment Plan Physical Therapy Treatment Plan Transfer Training Gait Training Therapeutic Exercise Balance Retraining Discharge Planning Neuromuscular Re-ed Recommendations To Nursing Amount of Assist Needed Standby Assistance Discharge Recommendations PT Discharge Recommendations Home with Assistance Home Health Other Discharge Recommendations she does not have rides to get to and from out-pt PT Equipment Needed for Home Before assess for possible cane Discharge
--- NOTE | 2018-02-20 16:17 | PM.PN.1 ---
Subjective Date Patient Seen: 02/20/18 Interval history: Still no appetite, No significant vomiting today. Patient is awake and alert, blood sugars are elevated. Exam Vital Signs (past 8 hours): - 02/20/18 10:51 02/20/18 12:00 02/20/18 15:34 Temperature 98.1 F 97.7 F Pulse Rate 86 84 Respiratory Rate 16 20 Blood Pressure 98/62 133/77 Pulse Oximetry 94 96 96 Oxygen Delivery Method Room Air Narrative Exam Narrative: Ill appearing female Lungs: clear to auscultation CV: RRR nl Sl S2 Abd: soft/nontender/non distended Ext: no edema Objective Labs Result Diagrams: 02/20/18 05:55 02/20/18 06:00 Labs: Laboratory Results - last 24 hr 02/19/18 02/19/18 02/19/18 17:31 17:31 17:31 WBC RBC Hgb Hct MCV MCH MCHC RDW Plt Count Neut % (Auto) Lymph % (Auto) [place] % (Auto) Eos % (Auto) Baso % (Auto) Neut # (Auto) Sodium Potassium Chloride Carbon Dioxide BUN Creatinine Estimated GFR BUN/Creatinine Ratio Glucose Hemoglobin A1c 11.3 H Calcium Total Bilirubin AST ALT Alkaline Phosphatase Total Creatine Kinase 104 Total Protein Albumin Globulin Albumin/Globulin Ratio Amylase 46 Lipase 20 L 02/20/18 02/20/18 05:55 06:00 WBC 18.8 H D RBC 4.51 Hgb 13.8 Hct 40.7 MCV 90.1 D MCH 30.6 MCHC 33.9 RDW 13.5 Plt Count 226 Neut % (Auto) 82.7 H Lymph % (Auto) 8.0 L [place] % (Auto) 8.8 Eos % (Auto) 0.0 L Baso % (Auto) 0.5 Neut # (Auto) 04976 H Sodium 136 L Potassium 3.4 D Chloride 96 L Carbon Dioxide 28 BUN 35 H Creatinine 0.90 Estimated GFR > 60.0 BUN/Creatinine Ratio 38.9 H Glucose 196 H D Hemoglobin A1c Calcium 8.6 Total Bilirubin 0.8 AST 43 H ALT 49 Alkaline Phosphatase 85 Total Creatine Kinase Total Protein 6.3 Albumin 3.6 Globulin 2.7 Albumin/Globulin Ratio 1.3 Amylase Lipase Assessment & Plan (1) Acute dehydration: Problem details: Continue IV hydration Current visit: Yes Status: Acute (2) Vomiting: Problem details: Continue Reglan. Will obtain abdominal ultrasound to rule out intra-abdominal pathology. Ultrasound negative. consider Surgery consult for EGD to r/o gastritis/ulcer etc Patient may benefit from solid food gastric emptying study as well Qualifiers: Nausea presence: with nausea Vomiting Intractability: non-intractable Vomiting type: unspecified Qualified Code(s): R11.2 - Nausea with vomiting, unspecified Current visit: Yes Status: Acute (3) Poorly controlled diabetes mellitus: Problem details: Will start her on Lantus at 20 units. Will cover her with a sliding scale of insulin at and HS Will adjust lantus Current visit: Yes Status: Acute (4) Hypertension: Problem details: Continue usual medications Current visit: Yes Status: Acute (5) Hyperlipidemia: Problem details: Continue statin Current visit: Yes Status: Acute (6) Memory change: Current visit: Yes Status: Acute Plan: Assessment/Plan Narrative: Hypokalemia- will replace Quality VTE Deep Vein Thrombosis/Pulmonary Embolism Present on Admission: No
--- NOTE | 2018-02-20 16:48 | OT.IP.EVAL ---
Current Diagnoses Type 2 diabetes mellitus with hyperglycemia (02/19/18) Hyperlipidemia, unspecified (02/19/18) Dehydration (02/19/18) Essential (primary) hypertension (02/19/18) Other sequelae of cerebral infarction (02/19/18) Nausea (02/19/18) Nausea with vomiting, unspecified (02/19/18) Unspecified disturbances of skin sensation (02/19/18) Other amnesia (02/19/18) Other fatigue (02/19/18) Abnormal weight loss (02/19/18) Past Medical History (Last Updated 02/20/18 @ 11:27 by Marnie Osborne, RN) Gallbladder disease (Chronic) CVA (cerebral vascular accident) (Acute) Diabetes (Acute) Hypertension (Acute) Surgical History (Last Updated 02/20/18 @ 11:27 by Marnie Osborne, RN) No pertinent past surgical history (Acute) Occupational Therapy Inpatient Evaluation/Re-Eval M1 PT/OT-IP Prior Functional Status Start: 02/19/18 17:06 Freq: NEEDED Status: Active Protocol: Document 02/19/18 17:08 EA (Rec: 02/19/18 17:32 EA [id number]) Medical Review Prior Functional Status Medical History Reviewed Yes Diet/Fluid Consistency Regular Communication Slight memory issue. Mobility and Gait Indep with no AD with ability to ambulate withing the back yard Prior Functional Level (Other details) Lives with her Social History Household Members spouse Living Arrangements House Number of Floors (Floors) One Floor Home Equipment Four Wheel Walker Quad Cane Employment Status Retired M1 PT/OT-IP Prior Functional Status Start: 02/20/18 12:34 Freq: NEEDED Status: Active Protocol: Document 02/20/18 10:23 [facility] (Rec: 02/20/18 16:48 [facility] [id number]) Medical Review Prior Functional Status Medical History Reviewed Yes Diet/Fluid Consistency Regular Communication Slight memory issue. Mobility and Gait Indep with no AD with ability to ambulate withing the back yard Activities of Daily Living and IADL's Pt states able to do all ADl' s and per pt only needing assist for medication management. Pt states at times uses 4WW. Prior Functional Level (Other details) Lives with her , works from 4AM to 3pm. Social History Household Members spouse Living Arrangements House Home Environment Standard Height Toilet Tub/Shower Home Equipment Four Wheel Walker Straight Cane Shower Seat with Backrest Hand Held Shower M2 OT-IP Current Condition Start: 02/20/18 12:34 Freq: Status: Active Protocol: Document 02/20/18 10:23 [facility] (Rec: 02/20/18 16:48 [facility] [id number]) Occupational Therapy Current Condition Current Condition Evaluation Date 02/20/18 Treatment Diagnosis Acuter dehydration, weakness Diagnosis Onset Date 02/19/18 Weight Bearing Status Weight Bearing Status Full Weight Bearing M3 OT- IP Subjective and Pain Start: 02/20/18 12:34 Freq: Status: Active Protocol: Document 02/20/18 10:23 [facility] (Rec: 02/20/18 16:48 [facility] [id number]) OT- Subjective Occupational Therapy Visit Type Type Initial Evaluation Visit Start Time 10: Visit Stop Time 11:00 Total Visit Minutes 47 Occupational Therapy Visit Comments Patient/Caregiver Goals Pt states would like to go home when medically stable. Pt 's states would like for pt to have home health nursing to assist for medication needs. OT Pain Assessment Pain When Pain Assessed At Rest Pain Present Pain Present Denied Pain M4 OT- IP ADL's Start: 02/20/18 12:34 Freq: Status: Active Protocol: Document 02/20/18 10:23 [facility] (Rec: 02/20/18 16:48 [facility] [id number]) OT ADL-Grooming General Evaluation Grooming Ability Standby Assistance Areas Needing Assistance Retrieving/Set-up of Grooming Items Comments OT Grooming Comments SBA at sink without device, pt needing to hold to counter for balance. OT ADL-Oral Care General Eval Oral Care Ability Independent OT ADL-Dressing General Eval Lower Body Dressing Ability Standby Assistance Comments OT Dressing Comments Pt able to bravo/doff socks from the edge of the bed. OT ADL-Toileting General Evaluation Toileting Ability Standby Assistance Comments OT Toileting Comments SBA for safety and to manage IV pole. M5 OT- IP IADL's Start: 02/20/18 12:34 Freq: Status: Active Protocol: Document 02/20/18 10:23 [facility] (Rec: 02/20/18 16:48 [facility] [id number]) OT-Instrumental Activities of Daily Living Home Safety Awareness Home Safety Comments Pt able to accurately answer home safety questions 75%. Medication Management Medication Management Caregiver Administers Money Management Money Management Comments Pt does automatic bill payment . Pt having trouble with subtracting two digit numbers. Driving Driving Comments Pt states no longer drives due to blurred vision. M6 OT- IP Functional Cognition Start: 02/20/18 12:34 Freq: Status: Active Protocol: Document 02/20/18 10:23 [facility] (Rec: 02/20/18 16:48 [facility] [id number]) Cognitive Factors Limiting Selfcare Function Cognitive Ability Level of Alertness Alert Patient Orientation Name Place Situation Attention Span Ability Capable of Focused Attention Capable of Sustained Attention Ability to Follow Commands Able to Follow One Step Commands Memory Description Short Term Impaired Working Impaired Safety Awareness Underestimates Need for Assistance Problem Solving Ability Needs Assist to Identify Solutions Executive Function Ability Unable to Make Plans Unable to Organize Plans Unable to Remember Details Cognitive Comments Cognitive Assessment Comments Per pt's , pt having increased difficulty with memory and thinking at home. OT- Vision and Hearing OT- Hearing Assessment OT- Hearing Assessment WFL OT- Vision Assessment Vision History Blurred Vision M7 OT- IP Mobility and Balance Start: 02/20/18 12:34 Freq: Status: Active Protocol: Document 02/20/18 10:23 [facility] (Rec: 02/20/18 16:48 [facility] [id number]) OT- Bed Mobility Assessment Rolling Type of Rolling Roll to Left Level of Assistance Standby Assistance Supine to Sit Supine to Sit Assist Standby Assistance Sit to Supine Sit to Supine Assist Standby Assistance OT-Transfer Assessment Sit to and From Stand Sit to and from Stand Standby Assistance Contact Guard Assistance Transfers Transfer Ability Standby Assistance Contact Guard Assistance Technique Transfer Destination Bed Chair Transfer Technique Stand Step Pivot Devices Transfer Assistive Devices None Gait Belt Comments Mobility Comments Pt has wide base of support for walking and at times needing CGA for unsteadiness while walking in the hallway. OT- Balance Assessment Sitting Balance and Reactions Static Sitting Balance Ability Normal Dynamic Sitting Balance Ability Normal Standing Balance and Reactions Static Standing Balance Ability Good Dynamic Standing Balance Ability Fair Comments Other Balance Tests/Deviations/Treatment Pt able to reach over to pick : up item from the floor, withstand min. perturbations, unable to stand on one foot. Pt states has been getting weaker and now has raised toilet seat to help stand from the toilet. M8 OT- IP Objective Assessments Start: 02/20/18 12:34 Freq: Status: Active Protocol: Document 02/20/18 10:23 [facility] (Rec: 02/20/18 16:48 [facility] [id number]) OT Gross Range of Motion Upper Extremity Range of Motion Assessment Left Impaired ROM Impairments LUE unable to raise arm up due to history of left proximal humerus fracture. OT Strength Comments Strength Comments RUE 4-/5 throughtout, LUE from elbow to distal 4-/5. M9 OT- IP Assessment and Plan Start: 02/20/18 12:34 Freq: Status: Active Protocol: Document 02/20/18 10:23 [facility] (Rec: 02/20/18 16:48 [facility] [id number]) OT Summary Assessment and Plan Potential Rehabilitation Potential Good Analytic Complexity at Evaluation Low Summary OT Impairments Range of Motion Strength Balance Functional Cognition Functional Mobility Dressing Toileting Bathing Shower Transfers Progress Towards Goals Slow Progress due to Medical Issues Slow Progress due to Activity Tolerance Slow Progress due to Cognition Assessment Summary Pt low complexity main barriers is decreased functional cognition, dynamic balance, strength, and safety awareness and would benefit from home health and 24/7 assist at this time at home. STG: Distant SBA for all dressing and toileting needs. LTG: see below Goals Grooming Goal Independent Dressing Goal Independent Toileting Goal Independent Bathing Goal Standby Assistance Toilet Transfer Goal Independent Shower Transfer Goal Standby Assistance Patient/Caregiver Education Goal Caregiver Independent Assisting Patient Days to Meet Goals 7 Frequency of Treatment Frequency Of Treatment Once a Day Treatment Plan OT Treatment Plan ADL Training Functional Cognition Training Functional Mobility Patient/Family Education Discharge Planning Other Treatment Recommendations and Next shower Treatment Focus Discharge Recommendations OT Discharge Recommendations Home with 24/7 Assist Home Health
--- NOTE | 2018-02-20 17:52 | PC.NURSE ---
Addendum entered by Cyndy Martínez R.N. 02/20/18 22:15: Appetite improved during dinner meal, tolerated clear diet. No nausea, no c/o abdominal discomfort. Original Note: Syeda shift note: Patient awake, and alert with slow to respond to questions. Reports generalized abdominal discomfort, unable to describe. Lack of appetite with poor PO intake. Sitting up in bed, taking small sips of soup. No nausea or vomiting. States she feels sleepy but not weak, however much improved from previous day. IVF infusing. ambulated to bathroom independently with SBA, steady gait.
[2018-02-20] MEDS: KCL 20 MEQ IN NS 1,000 ML 84 MEQ IV (19:04)
[2018-02-20] MEDS: MIRTAZAPINE 7.5 MG TABLET 3.75 MG PO (21:25)
[2018-02-20] MEDS: ATORVASTATIN 20 MG TABLET 40 MG PO (21:25)
[2018-02-20] MEDS: INSULIN GLARGINE 100 UNIT/ML 3ML PEN 30 UNIT SUBCUT (21:26)
[2018-02-21] VITALS (10 sets, daily range): BP systolic 113–131; BP diastolic 63–78; PULSE 72–89; RESP 14–20; TEMP 36.4–37; O2SAT 94–99
[2018-02-21] MEDS: KCL 20 MEQ IN NS 1,000 ML 84 MEQ IV ×2 (05:11→18:45)
[2018-02-21 05:39] LABS: Blood Urea Nitrogen 18 mg/dL (7-17); Calcium 8.3 mg/dL (8.4-10.2); Carbon Dioxide 26 mmol/L (22-32); Chloride 105 mmol/L (98-107); Estimated Glomerular Filt Rate > 60.0 mL/min (>60); HEMOLYSIS < 15 (0-50); Potassium 3.1 mmol/L (3.4-5.1); Sodium 139 mmol/L (137-145)
[2018-02-21 06:05] LABS: Glucose 38 mg/dL (80-110)
[2018-02-21] MEDS: DEXTROSE 50 % IN WATER 25 GM/50 ML SYRINGE IV (06:24)
--- NOTE | 2018-02-21 06:30 | PC.NURSE ---
assistant shift supervisor: 0600 notified by lab that glucose on AM labs was 38. Pt checks and easily aroused and alert and oriented, states that she is cold by is asymptomatic. Pt drinking apple juice with addition sugar. 0620 CBG 34, 1/2 amp Dextrose given as pt continues to be A/O. Will recheck CBG in 20 minutes.
[2018-02-21] MEDS: INSULIN ASPART 100 UNIT/ML INSULN PEN SUBCUT ×4 (08:46→21:28)
[2018-02-21] MEDS: LISINOPRIL 20 MG TABLET 40 MG PO (10:05)
[2018-02-21] MEDS: CHLORTHALIDONE 25 MG TABLET PO (10:05)
[2018-02-21] MEDS: CHOLECALCIFEROL (VITAMIN D3) 1,000 UNIT TABLET 4000 UNIT PO (10:05)
[2018-02-21] MEDS: ENOXAPARIN 40 MG/0.4 ML SYRINGE SUBCUT (10:05)
[2018-02-21] MEDS: AMLODIPINE 5 MG TABLET 10 MG PO (10:05)
--- NOTE | 2018-02-21 10:15 | OT.IP.TRT ---
Current Diagnoses Type 2 diabetes mellitus with hyperglycemia (02/19/18) Hyperlipidemia, unspecified (02/19/18) Dehydration (02/19/18) Essential (primary) hypertension (02/19/18) Other sequelae of cerebral infarction (02/19/18) Nausea (02/19/18) Nausea with vomiting, unspecified (02/19/18) Unspecified disturbances of skin sensation (02/19/18) Other amnesia (02/19/18) Other fatigue (02/19/18) Abnormal weight loss (02/19/18) Occupational Therapy Treatment Note M2 OT-IP Current Condition Start: 02/20/18 12:34 Freq: Status: Active Protocol: Document 02/20/18 10:23 [facility] (Rec: 02/20/18 16:48 [facility] [id number]) Occupational Therapy Current Condition Current Condition Evaluation Date 02/20/18 Treatment Diagnosis Acuter dehydration, weakness Diagnosis Onset Date 02/19/18 Weight Bearing Status Weight Bearing Status Full Weight Bearing M3 OT- IP Subjective and Pain Start: 02/20/18 12:34 Freq: Status: Active Protocol: Document 02/21/18 09:49 [facility] (Rec: 02/21/18 10:15 [facility] [id number]) OT- Subjective Occupational Therapy Visit Type Type Treatment Note Visit Start Time 09:00 Visit Stop Time 09:45 Total Visit Minutes 45 Occupational Therapy Visit Comments Patient/Caregiver Goals Pt wanting to go home when stable and would like to have PT and nursing for home health . OT Pain Assessment Pain When Pain Assessed At Rest Pain Present Pain Present Denied Pain M4 OT- IP ADL's Start: 02/20/18 12:34 Freq: Status: Active Protocol: Document 02/21/18 09:49 [facility] (Rec: 02/21/18 10:15 [facility] [id number]) OT ADL-Grooming General Evaluation Grooming Ability Independent Comments OT Grooming Comments Distant SBA, pt able to do all grooming need without device and good safety. OT ADL-Oral Care General Eval Oral Care Ability Independent OT ADL-Dressing General Eval Upper Body Dressing Ability Independent Lower Body Dressing Ability Standby Assistance Comments OT Dressing Comments vc for orientation of brief otherwise increased time for LB dressing needs. OT ADL-Toileting General Evaluation Toileting Ability Independent OT ADL-Bathing Bathing Type Bathing Type Shower General Evaluation Bathing Ability Minimal Assistance Areas Needing Assistance Wash/Dry Back Devices Bathing Equipment Hand Held Shower Sprayer Shower Chair without Arms Grab Bars Comments OT Bathing Comments Pt able to stand for most of showering needs and needing use of grab bar for balance to turn and while washing pericare needs. Pt having to sit while drying off and to bravo brief initially over hier feet. Suggested to shower at home when significant other present. M5 OT- IP IADL's Start: 02/20/18 12:34 Freq: Status: Active Protocol: Document 02/20/18 10:23 [facility] (Rec: 02/20/18 16:48 [facility] [id number]) OT-Instrumental Activities of Daily Living Home Safety Awareness Home Safety Comments Pt able to accurately answer home safety questions 75%. Medication Management Medication Management Caregiver Administers Money Management Money Management Comments Pt does automatic bill payment . Pt having trouble with subtracting two digit numbers. Driving Driving Comments Pt states no longer drives due to blurred vision. M6 OT- IP Functional Cognition Start: 02/20/18 12:34 Freq: Status: Active Protocol: Document 02/21/18 09:49 [facility] (Rec: 02/21/18 10:15 [facility] [id number]) Cognitive Factors Limiting Selfcare Function Cognitive Ability Level of Alertness Alert Patient Orientation Name Year Place Situation Attention Span Ability Capable of Focused Attention Capable of Sustained Attention Ability to Follow Commands Able to Follow Multi-Step Commands Memory Description Short Term Impaired Safety Awareness Underestimates Need for Assistance Cognitive Comments Cognitive Assessment Comments Pt's significant other had to remind pt that she has a shower chair at home. Pt intiating better for thinking and movement today. Pt still needing occasional vc for safety, sit ot dry off and bravo brief. M7 OT- IP Mobility and Balance Start: 02/20/18 12:34 Freq: Status: Active Protocol: Document 02/21/18 09:49 [facility] (Rec: 02/21/18 10:15 [facility] [id number]) OT- Bed Mobility Assessment Rolling Type of Rolling Roll to Left Level of Assistance Independent Supine to Sit Supine to Sit Assist Independent Sit to Supine Sit to Supine Assist Independent OT-Transfer Assessment Sit to and From Stand Sit to and from Stand Standby Assistance Transfers Transfer Ability Standby Assistance Technique Transfer Destination Bed Chair Shower Stall Toilet Transfer Technique Stand Step Pivot Devices Transfer Assistive Devices None Comments Mobility Comments Pt steadier on her feet today and only having to hold to wall to steady herself before sitting to the toilet. Pt states feels that she is moving better but still feeling weak. OT- Balance Assessment Sitting Balance and Reactions Static Sitting Balance Ability Normal Dynamic Sitting Balance Ability Normal Standing Balance and Reactions Static Standing Balance Ability Normal Dynamic Standing Balance Ability Good Comments Other Balance Tests/Deviations/Treatment Today pt able to carry flower : container from the sink counter to the ledge in front of the window witih good balance and safety. Still recommend pt to use 4WW as needed at home for safety. M8 OT- IP Objective Assessments Start: 02/20/18 12:34 Freq: Status: Active Protocol: Document 02/20/18 10:23 [facility] (Rec: 02/20/18 16:48 [facility] [id number]) OT Gross Range of Motion Upper Extremity Range of Motion Assessment Left Impaired ROM Impairments LUE unable to raise arm up due to history of left proximal humerus fracture. OT Strength Comments Strength Comments RUE 4-/5 throughtout, LUE from elbow to distal 4-/5. M9 OT- IP Assessment and Plan Start: 02/20/18 12:34 Freq: Status: Active Protocol: Document 02/21/18 09:49 [facility] (Rec: 02/21/18 10:15 [facility] [id number]) OT Summary Assessment and Plan Potential Rehabilitation Potential Excellent Analytic Complexity at Evaluation Low Summary OT Impairments Range of Motion Strength Balance Functional Cognition Functional Mobility Bathing Shower Transfers Progress Towards Goals Progressing Toward Goals Assessment Summary Pt much improved with initiation for thinking and movement today. Pt feels that she is closer to baseline, but still feeling weak overall. Pt would benefit from 24/7 at home and home health. Goals OT-Other Goals Pt to be independent for safety awareness, be able to state accurately what to do for her blood sugar needs, what to eat, etc... Days to Meet Goals 3 Frequency of Treatment Frequency Of Treatment Once a Day Treatment Plan OT Treatment Plan ADL Training Functional Cognition Training Functional Mobility Patient/Family Education Discharge Planning Discharge Recommendations OT Discharge Recommendations Home with 24/7 Assist Home Health
--- NOTE | 2018-02-21 12:15 | PT.IPTN ---
Current Diagnoses Type 2 diabetes mellitus with hyperglycemia (02/19/18) Hyperlipidemia, unspecified (02/19/18) Dehydration (02/19/18) Essential (primary) hypertension (02/19/18) Other sequelae of cerebral infarction (02/19/18) Nausea (02/19/18) Nausea with vomiting, unspecified (02/19/18) Unspecified disturbances of skin sensation (02/19/18) Other amnesia (02/19/18) Other fatigue (02/19/18) Abnormal weight loss (02/19/18) Physical Therapy Treatment Note M2 PT-IP Current Condition Start: 02/19/18 17:06 Freq: NEEDED Status: Active Protocol: Document 02/20/18 15:45 [facility] (Rec: 02/20/18 17:47 [facility] [id number]) Physical Therapy Current Condition Current Condition Evaluation Date 02/19/18 Treatment Diagnosis Muscle weakness Onset Date 02/19/18 Weight Bearing Status Weight Bearing Status Full Weight Bearing M3 PT-IP Subjective Start: 02/19/18 17:06 Freq: NEEDED Status: Active Protocol: Document 02/21/18 12:15 [facility] (Rec: 02/21/18 12:37 [facility] [id number]) Subjective Physical Therapy Visit Type Type Treatment Note Visit Start Time 11:55 Visit Stop Time 12:15 Total Visit Minutes 20 Number of RAILROAD TRACK MECHANIC Visits 1 Physical Therapy Visit Comments Patient Comments Pt states she would like to walk. M4 PT-IP Mobility and Gait Start: 02/19/18 17:06 Freq: NEEDED Status: Active Protocol: Document 02/21/18 12:15 [facility] (Rec: 02/21/18 12:37 [facility] [id number]) PT-Bed Mobility Assessment Supine to Sit Supine to Sit Independent Scooting Scooting to Edge of Bed Independent PT-Transfer Assessment Sit to and From Stand Sit to and from Stand Standby Assistance Equipment Transfer Assistive Device Gait Belt Transfers Transfer Destination Bed Gait Assessment Gait Gait Assistance Required: Standby Assistance Distance (Feet) 600 Assistive Devices Assistive Device Gait Belt Gait Deviations General Gait Pattern Wide Based Gait Factors Limiting Gait Function Factors Limiting Gait Function Decreased Sensation Poor Balance Comments Gait Comments Pt had mild unsteadiness with turning head during gait. M5 PT-IP Objective Assessments Start: 02/19/18 17:06 Freq: NEEDED Status: Active Protocol: Document 02/20/18 15:45 [facility] (Rec: 02/20/18 17:47 [facility] [id number]) Orientation Orientation/Cognition Level of Alertness Alert Orientation Name Age Birthday Month Date Year Day of Week Place Situation Language Function Ability No Deficits Noted Safety Awareness Understands Safety Issues Memory Description Short Term Impaired Custodial Impaired Comments slow speed of mental processing noted, cooperative, good effort with therapy, verbalizes frustration with her health problems but states no understanding of them Gross Range of Motion Upper Extremity ROM Assessment Left Impaired Impairments shoulder injury/pain Lower Extremity ROM Assessment Within Functional Limits Strength Upper Extremity Strength Assessment Left Impaired Lower Extremity Strength Assessment Bilaterally Impaired Hip hip flexion 4/5 Knee knees 4+/5 Ankle DF 5/5 Coordination Assessment Gross Coordination Gross Coordination WNL Sensation Assessment Sensation Gross Sensation WNL Muscle Tone Muscle Tone WNL Yes M6 PT-IP Treatment Start: 02/19/18 17:06 Freq: NEEDED Status: Active Protocol: Document 02/21/18 12:15 [facility] (Rec: 02/21/18 12:37 [facility] [id number]) Physical Therapy Treatment Education Education Provided Safety M7 PT-IP Assessment and Plan Start: 02/19/18 17:06 Freq: NEEDED Status: Active Protocol: Document 02/21/18 12:15 [facility] (Rec: 02/21/18 12:37 [facility] [id number]) PT Summary Assessment and Plan Summary Assessment Summary Pt improved with ambulation tolerance. She did have mild unsteadiness with gait with her turns left > Right. She is resistant to using an assistive device for gait and prefers to hold furniture when needed. Frequency of Treatment Frequency Of Treatment Once a Day Treatment Plan Physical Therapy Treatment Plan Transfer Training Gait Training Therapeutic Exercise Balance Retraining Discharge Planning Neuromuscular Re-ed Recommendations To Nursing Amount of Assist Needed Standby Assistance Discharge Recommendations PT Discharge Recommendations Home with Assistance Home Health
--- NOTE | 2018-02-21 12:42 | PC.NURSE ---
Monserrat's AM blood sugar was 278. Monserrat has been able to take in clear liquids today without any nausea/vomitting. She ate 75% of her breakfast and is asking for more solid food now. She was able to perform her own fingerstick blood sugar testing prior to lunch, which was 234, with staff observing. She then followed the Insulin protocol for administration of 2 units Aspart SQ herself with staff observing. Her supportive , Pablo, is at bedside. Per Dr. Cochran the gastric emptying test has been cancelled. (Radiology not able to schedule test until at least Saturday.) Will continue to closely monitor blood sugars and men's swim coach pt. in self-management as needed.
--- NOTE | 2018-02-21 13:18 | PM.PN.1 ---
Subjective Date Patient Seen: 02/21/18 Time Patient Seen: 08:24 Interval history: History of present illness Follow up on patient with uncontrolled diabetes on admission with a hemoglobin A1c of 11.3% Adjustments being made to the basal insulin. I adjusted the Lantus to 12 units subcu b.i.d. In view of the low serum glucose this morning will obtain a fasting cortisol level in a.m. tomorrow. I doubt there is a adrenal gland insufficiency. Review of system No chest pain or shortness of breath no nausea Exam Vital Signs (past 8 hours): - 02/21/18 07:58 02/21/18 11:58 Temperature 97.6 F 97.8 F Pulse Rate 79 87 Respiratory Rate 14 15 Blood Pressure 128/78 119/77 Pulse Oximetry 98 94 Oxygen Delivery Method Room Air Oxygen Flow Rate 0 Narrative Exam Narrative: General appearance patient is not awake and alert no apparent distress Respiratory fairly clear to auscultation no wheezes no crackles good air flow Psychiatric well oriented to time place person mood is pleasant patient is cooperative affect is appropriate Cardiovascular regular rate rhythm no murmurs +3 pulses to extremities GI is benign soft nontender positive bowel sounds no new masses no distention no bruits Neurologic no focal neurologic changes cranial nerves 2-12 grossly intact Objective Labs Result Diagrams: 02/20/18 05:55 02/21/18 05:21 Labs: Laboratory Results - last 24 hr 02/21/18 05:21 Sodium 139 Potassium 3.1 L Chloride 105 Carbon Dioxide 26 BUN 18 H Creatinine 0.60 Estimated GFR > 60.0 BUN/Creatinine Ratio 30.0 H Glucose 38 L* D Calcium 8.3 L Assessment & Plan Plan: Assessment/Plan Narrative: Uncontrolled Diabetes type 2 on long-term insulin therapy Note the hemoglobin A1c of 11.3% and a glucose level of 522 on admission Patient had a blood sugar of only 38 this morning at 5:30 a.m. Lantus was increased from 20 units up to 30 units last night and may have caused this morning's hypoglycemia Will adjust the insulin Lantus to 12 units subcu b.i.d. and closely monitor Insulin sliding scale as needed Advanced diet to ADA diet 1800 calorie per day Requested to nursing staff that patient's self administer all insulin as possible to demonstrate she can do so Gastric emptying study cannot be done until Saturday of next week. Nursing staff notes patient eating seemingly okay with no intolerance. Weakness and dehydration IV fluids being provided Continue to monitor labs PT requested to follow patient. History of stroke Patient had CVA 4 months ago. According to patient's significant other no cognitive decline over the past 4 months Time Spent With Patient Time with patient: 25 - 35 minutes (25 min) Quality VTE Deep Vein Thrombosis/Pulmonary Embolism Present on Admission: No
--- NOTE | 2018-02-21 13:25 | ST.IPTN ---
Care Team Visit Care Team Role Provider Type Jyoti Streeter MD Family Provider Physician Primary Care Provider Address: [address], [address] Rosalie Peterson MD Emergency Provider Physician Address: [address] [place] [address], [id number] Eliana Wolf MD Admit Provider Physician Attending Provider Address: [address] [place] [address], [id number] WRAPPING MACHINE HELPER Treatment Note WRAPPING MACHINE HELPER Treatment Note Start: 02/20/18 15:20 Freq: Status: Active Protocol: Document 02/21/18 13:06 [facility] (Rec: 02/21/18 13:24 [facility] [id number]) Speech Pathology Treatment Note Session Time Visit Start Time 09:30 Visit Stop Time 10:00 Total Visit Minutes 30 Setting Treatment Setting Acute Care Visit Type Note Type Treatment Note Next Note Type Next Note Type Treatment Note General Information General Information Pt has a history of CVA in June 2017. Cognition was assessed t aid in discharge planning. WRAPPING MACHINE HELPER reported that the patient scored 17/30 on Alcides Cognitive Assessment indicating moderate cognitive impairment. She had most difficulty completing executive function and short term memory tasks. She was oriented to self, place and date. She had difficulty with simple math such as 100-7 and was not able to recall 5 items immediately after presentation on 3 trials. Subjective Identification Type Name ID Wristband Others Present Family Observations/Patient Presentation Pt was in bed with at bedside. Chief Complaint(s) Cognitive Patient Knowledge/Awareness of WRAPPING MACHINE HELPER Role Fair in Treatment Objective Short Term Goals Pt will correctly recall three words immediately and after 5 minutes without error. Pt will participate in activities targeting working memory to improve cognitive skills. Prison Goals Pt will participate in outpatient therapy following discharge for cognitive skills addressing higher executive function skills (planning, memory, problem-solving) Treatment Activities Pt had difficulty remembering the WRAPPING MACHINE HELPER that saw her yesterday . She remembered some of the questions from the cognitive test. Additionally the pt noted that she has poor math skills and always uses a calculator She prefers lists to recalling items. Given 3 words to remember, the pt was able to recall 3/3 immediately after being told the words. After 5 minutes, the pt recalled 0/3 words. The pt was provided with activities she could do to improve her memory as well as improve memory (recite alphabet/months of the year/days of the week, etc., backwards). Assessment Patient Response to Treatment Fair Rehab Potential Good Impairments Identified Cognitive-Linguistic Skills Memory - Short Term Memory - Working Reviewed with Patient Goals Home Exercise Program Patient/Caregiver Understanding Good Plan Amount of Therapy Recommended 2-4 Weeks Frequency of Treatment Once a Week Length of Session 45 Minutes Therapeutic Contents Cognitive-Linguistic Training Provided Patient/Caregiver Instruction Home Exercise Program
--- NOTE | 2018-02-21 15:23 | DIET.PN ---
Met with patient to discuss home insulin regimen and dietary habits. Provided nutrition counseling related to carbohydrate counting, recommended amounts per meal, and encouraged to monitor BG prior to meals. Handouts provided. Pt with good understanding.
--- NOTE | 2018-02-21 15:49 | CM.DPC ---
DCP Cont: UR nurse will send status to EHR to review if patient's observation status could be changed, due to some co-morbidities. At this time, is still under observation status. Nursing staff is having patient administer her own insulin under their supervision. P: DCP continue to follow. Plan may change if her observation status changes. Otherwise, home health through [facility] may be the best option at discharge. Anika Camarillo RN/General Car Supervisor Yard
--- NOTE | 2018-02-21 18:24 | PC.NURSE ---
AMBULATING IN HALLS SBA WITH IRON PLASTIC BULLET MAKER,STEADY ON FEET
[2018-02-21] MEDS: POTASSIUM CHLORIDE 20 MEQ TAB 40 MEQ PO (18:46)
[2018-02-21] MEDS: INSULIN GLARGINE 100 UNIT/ML 3ML PEN 12 UNIT SUBCUT (21:27)
[2018-02-21] MEDS: MIRTAZAPINE 7.5 MG TABLET 3.75 MG PO (21:27)
[2018-02-21] MEDS: ATORVASTATIN 20 MG TABLET 40 MG PO (21:27)
[2018-02-22] VITALS (10 sets, daily range): BP systolic 122–132; BP diastolic 76–79; PULSE 69–84; RESP 14–21; TEMP 36.3–36.7; O2SAT 95–99
[2018-02-22] MEDS: HYDROCODONE/ACET 5/325 TABLET 1 TAB PO ×2 (00:02→15:37)
[2018-02-22] MEDS: ZOLPIDEM 5 MG TABLET 2.5 MG PO ×2 (00:02→20:17)
[2018-02-22] MEDS: KCL 20 MEQ IN NS 1,000 ML 84 MEQ IV (05:44)
[2018-02-22 05:49] LABS: Add Manual Diff / Slide Review NO; Basophils Percent Auto 0.3 % (0-2); Eosinophils Percent Auto 1.2 % (2-4); Hematocrit 33.1 % (36-46); Hemoglobin 11.2 g/dL (12.0-16.0); Lymphocytes Percent Auto 26.9 % (25-40); Mean Corpuscular Hemoglobin 31.1 PG (26-34); Mean Corpuscular Volume 91.5 fL (80-100); Monocytes Percent Auto 10.7 % (3-14); Neutrophils Absolute Auto 4000 /uL (3000-5900); Neutrophils Percent Auto 60.9 % (50-75); Platelet Count 135 X10^3/uL (150-400); Red Blood Cell Count 3.62 X10^6/uL (4.0-5.2); Red Cell Distribution Width 13.7 % (11.6-14.8); White Blood Cell Count 6.6 X10^3/uL (4.5-11.0)
[2018-02-22 06:01] LABS: Alanine Aminotransferase 49 IU/L (9-52); Albumin 2.5 g/dL (3.5-5.0); Alkaline Phosphatase 65 U/L (38-126); Aspartate Aminotransferase 47 IU/L (14-36); Bilirubin Total 0.6 mg/dL (0.2-1.3); Blood Urea Nitrogen 11 mg/dL (7-17); Calcium 7.9 mg/dL (8.4-10.2); Carbon Dioxide 27 mmol/L (22-32); Chloride 104 mmol/L (98-107); Estimated Glomerular Filt Rate > 60.0 mL/min (>60); Globulin 2.4 g/dL (1.7-4.1); Glucose 225 mg/dL (80-110); HEMOLYSIS < 15 (0-50); Potassium 3.7 mmol/L (3.4-5.1); Sodium 136 mmol/L (137-145); Total Protein 4.9 g/dL (6.3-8.2)
[2018-02-22 06:35] LABS: Cortisol AM (Before 10AM) 12.3 ug/dL (4.46-22.7)
[2018-02-22] MEDS: CHOLECALCIFEROL (VITAMIN D3) 1,000 UNIT TABLET 4000 UNIT PO (08:26)
[2018-02-22] MEDS: ENOXAPARIN 40 MG/0.4 ML SYRINGE SUBCUT (08:27)
[2018-02-22] MEDS: AMLODIPINE 5 MG TABLET 10 MG PO (08:27)
[2018-02-22] MEDS: CHLORTHALIDONE 25 MG TABLET PO (08:27)
[2018-02-22] MEDS: LISINOPRIL 20 MG TABLET 40 MG PO (08:27)
[2018-02-22] MEDS: INSULIN GLARGINE 100 UNIT/ML 3ML PEN 12 UNIT SUBCUT ×2 (08:35→21:44)
[2018-02-22] MEDS: INSULIN ASPART 100 UNIT/ML INSULN PEN SUBCUT ×4 (08:36→21:44)
--- NOTE | 2018-02-22 11:21 | CM.DPC ---
DCP: continued: Case received, EMR reviewed including PT/OT/TEMPORARY STAFF ACCOUNTANT notes and met with pt and her . Pt notes that she is pleased her is present as My memory is not reliable since the stroke and I like him to be present for any discussions. Went over the issues and options for d/c planning. OT and PT are both recommending pt have 24/7 assist at home. She does not have this. Her is gone from 0400 to 1700 most days. He works in [employer] at [employer]. They both see Dr. Jyoti Srteeter who is the [facility] physician. She has been working with both of them to manage the diabetes around the routine they have at home. Both acknowledge the impact the CVA pt had in Jun 2017. Pt reports she did her rehab at [facility] and it was an excellent experience. Both agree that a stay there again for continued PT/OT/TEMPORARY STAFF ACCOUNTANT plus intensive work on diabetic management would be very helpful. Conferred with UR RN re admission status: She states referral was sent to EHR review yesterday: determination: appropriate for INPT admission. She spoke with Dr. Cochran this morning just before Team Rounds and the order has now changed from OBS: as of 02/19 to INPT 02/22. Discussed case with Dr. Cochran in Team Rounds. He agrees a snf setting before home would be best unless pt over the next few days shows ability to manage all in her home setting with HH. (would benefit from HH RN after snf stay also). Discussed again with pt: SNF choice list: given: decision: [facility]: referral: [facility]: will review but expects to be able to take pt 02/25 or >. Pt is updated and states she is very pleased. P: FCC: 02/25 or > Need: [facility]
--- NOTE | 2018-02-22 11:25 | PT.IPTN ---
Current Diagnoses Type 2 diabetes mellitus with hyperglycemia (02/22/18) Hyperlipidemia, unspecified (02/22/18) Dehydration (02/22/18) Essential (primary) hypertension (02/22/18) Other sequelae of cerebral infarction (02/22/18) Nausea (02/22/18) Nausea with vomiting, unspecified (02/22/18) Unspecified disturbances of skin sensation (02/22/18) Other amnesia (02/22/18) Other fatigue (02/22/18) Abnormal weight loss (02/22/18) Physical Therapy Treatment Note M2 PT-IP Current Condition Start: 02/19/18 17:06 Freq: NEEDED Status: Active Protocol: Document 02/20/18 15:45 [facility] (Rec: 02/20/18 17:47 [facility] [id number]) Physical Therapy Current Condition Current Condition Evaluation Date 02/19/18 Treatment Diagnosis Muscle weakness Onset Date 02/19/18 Weight Bearing Status Weight Bearing Status Full Weight Bearing M3 PT-IP Subjective Start: 02/19/18 17:06 Freq: NEEDED Status: Active Protocol: Document 02/22/18 11:25 [facility] (Rec: 02/22/18 12:01 [facility] [email or web address]) Subjective Physical Therapy Visit Type Type Treatment Note Visit Start Time 11:00 Visit Stop Time 11:25 Total Visit Minutes 25 Number of [employer]PER[employer]ENT [employer] Visits 2 Physical Therapy Visit Comments Patient Comments Pt states she would like to use the bathroom without having to call for help. She states that she has tried a SPC and not able to use it. M4 PT-IP Mobility and Gait Start: 02/19/18 17:06 Freq: NEEDED Status: Active Protocol: Document 02/22/18 11:25 [facility] (Rec: 02/22/18 12:01 [facility] [email or web address]) PT-Bed Mobility Assessment Supine to Sit Supine to Sit Independent Sit to Supine Sit to Supine Independent Scooting Scooting to Edge of Bed Independent PT-Transfer Assessment Sit to and From Stand Sit to and from Stand Standby Assistance Equipment Transfer Assistive Device Gait Belt Transfers Transfer Destination Bed Gait Assessment Gait Gait Assistance Required: Standby Assistance Distance (Feet) 600 Assistive Devices Assistive Device Gait Belt Gait Deviations General Gait Pattern Wide Based Gait Factors Limiting Gait Function Factors Limiting Gait Function Decreased Sensation Poor Balance Comments Gait Comments pt pushed IV pole during gait. M5 PT-IP Objective Assessments Start: 02/19/18 17:06 Freq: NEEDED Status: Active Protocol: Document 02/20/18 15:45 [facility] (Rec: 02/20/18 17:47 DLM [id number]) Orientation Orientation/Cognition Level of Alertness Alert Orientation Name Age Birthday Month Date Year Day of Week Place Situation Language Function Ability No Deficits Noted Safety Awareness Understands Safety Issues Memory Description Short Term Impaired Stud Master/Mistress Impaired Comments slow speed of mental processing noted, cooperative, good effort with therapy, verbalizes frustration with her health problems but states no understanding of them Gross Range of Motion Upper Extremity ROM Assessment Left Impaired Impairments shoulder injury/pain Lower Extremity ROM Assessment Within Functional Limits Strength Upper Extremity Strength Assessment Left Impaired Lower Extremity Strength Assessment Bilaterally Impaired Hip hip flexion 4/5 Knee knees 4+/5 Ankle DF 5/5 Coordination Assessment Gross Coordination Gross Coordination WNL Sensation Assessment Sensation Gross Sensation WNL Muscle Tone Muscle Tone WNL Yes M6 PT-IP Treatment Start: 02/19/18 17:06 Freq: NEEDED Status: Active Protocol: Document 02/22/18 11:25 GGD (Rec: 02/22/18 12:01 GGD [email or web address]) Physical Therapy Treatment Education Education Provided Safety M7 PT-IP Assessment and Plan Start: 02/19/18 17:06 Freq: NEEDED Status: Active Protocol: Document 02/22/18 11:25 GGD (Rec: 02/22/18 12:01 [facility]GD [email or web address]) PT Summary Assessment and Plan Summary Assessment Summary Pt had improved stability with gait pushing the IV pull. She would benifit from a cane or walking stick for gait. She did refuse trial of SPC, state that she doesn't have the coordination. Frequency of Treatment Frequency Of Treatment Once a Day Treatment Plan Physical Therapy Treatment Plan Transfer Training Gait Training Therapeutic Exercise Balance Retraining Discharge Planning Neuromuscular Re-ed Recommendations To Nursing Amount of Assist Needed Standby Assistance Discharge Recommendations PT Discharge Recommendations Home with Assistance Home Health SNF Rehab
--- NOTE | 2018-02-22 15:48 | OT.IP.TRT ---
Current Diagnoses Type 2 diabetes mellitus with hyperglycemia (02/22/18) Hyperlipidemia, unspecified (02/22/18) Dehydration (02/22/18) Essential (primary) hypertension (02/22/18) Other sequelae of cerebral infarction (02/22/18) Nausea (02/22/18) Nausea with vomiting, unspecified (02/22/18) Unspecified disturbances of skin sensation (02/22/18) Other amnesia (02/22/18) Other fatigue (02/22/18) Abnormal weight loss (02/22/18) Occupational Therapy Treatment Note M2 OT-IP Current Condition Start: 02/20/18 12:34 Freq: Status: Active Protocol: Document 02/20/18 10:23 [facility] (Rec: 02/20/18 16:48 [facility] [email or web address]) Occupational Therapy Current Condition Current Condition Evaluation Date 02/20/18 Treatment Diagnosis Acuter dehydration, weakness Diagnosis Onset Date 02/19/18 Weight Bearing Status Weight Bearing Status Full Weight Bearing M3 OT- IP Subjective and Pain Start: 02/20/18 12:34 Freq: Status: Active Protocol: Document 02/22/18 15:37 [facility] (Rec: 02/22/18 15:47 [facility] [email or web address]) OT- Subjective Occupational Therapy Visit Type Type Treatment Note Visit Start Time 14:45 Visit Stop Time 15:10 Total Visit Minutes 25 Occupational Therapy Visit Comments Patient/Caregiver Goals Pt status has changed to inpt and would like to go to skilled rehab prior to going home. Pt's works and not able to provide 24/7 assist. OT Pain Assessment Pain When Pain Assessed During Mobility Pain Present Pain Present Pain Reported Location Left Shoulder Intensity 6 Scale Used Numeric (1 - 10) Description Throbbing With Movement Management Techniques Re-positioning Timing of Activity with Medications M4 OT- IP ADL's Start: 02/20/18 12:34 Freq: Status: Active Protocol: Document 02/22/18 15:37 [facility] (Rec: 02/22/18 15:47 [facility] [email or web address]) OT ADL-Toileting General Evaluation Toileting Ability Independent Comments OT Toileting Comments Pt able to safefy do toileting needs when BSC placed next to the bed. Nurse agreed that pt okay from bed to BSC transfer on her own and pt will call for assist when needed. M5 OT- IP IADL's Start: 02/20/18 12:34 Freq: Status: Active Protocol: Document 02/20/18 10:23 [facility] (Rec: 02/20/18 16:48 [facility] [email or web address]) OT-Instrumental Activities of Daily Living Home Safety Awareness Home Safety Comments Pt able to accurately answer home safety questions 75%. Medication Management Medication Management Caregiver Administers Money Management Money Management Comments Pt does automatic bill payment . Pt having trouble with subtracting two digit numbers. Driving Driving Comments Pt states no longer drives due to blurred vision. M6 OT- IP Functional Cognition Start: 02/20/18 12:34 Freq: Status: Active Protocol: Document 02/21/18 09:49 [facility] (Rec: 02/21/18 10:15 [facility] [id number]) Cognitive Factors Limiting Selfcare Function Cognitive Ability Level of Alertness Alert Patient Orientation Name Year Place Situation Attention Span Ability Capable of Focused Attention Capable of Sustained Attention Ability to Follow Commands Able to Follow Multi-Step Commands Memory Description Short Term Impaired Safety Awareness Underestimates Need for Assistance Cognitive Comments Cognitive Assessment Comments Pt's significant other had to remind pt that she has a shower chair at home. Pt intiating better for thinking and movement today. Pt still needing occasional vc for safety, sit ot dry off and bravo brief. M7 OT- IP Mobility and Balance Start: 02/20/18 12:34 Freq: Status: Active Protocol: Document 02/22/18 15:37 [facility] (Rec: 02/22/18 15:47 [facility] [email or web address]) OT- Bed Mobility Assessment Rolling Type of Rolling Roll to Right Level of Assistance Independent Supine to Sit Supine to Sit Assist Independent Sit to Supine Sit to Supine Assist Independent OT-Transfer Assessment Sit to and From Stand Sit to and from Stand Independent Standby Assistance Transfers Transfer Ability Independent Standby Assistance Technique Transfer Destination Bed Bedside Commode Transfer Technique Stand Step Pivot Devices Transfer Assistive Devices None Comments Mobility Comments Due to left shoulder pain it was determined with pt to get up from the right side of the bed and therefore easier to transfer/reach [facility]. OT- Balance Assessment Sitting Balance and Reactions Static Sitting Balance Ability Normal Dynamic Sitting Balance Ability Normal Standing Balance and Reactions Static Standing Balance Ability Normal Dynamic Standing Balance Ability Good M8 OT- IP Objective Assessments Start: 02/20/18 12:34 Freq: Status: Active Protocol: Document 02/20/18 10:23 [facility] (Rec: 02/20/18 16:48 [facility] [email or web address]) OT Gross Range of Motion Upper Extremity Range of Motion Assessment Left Impaired ROM Impairments LUE unable to raise arm up due to history of left proximal humerus fracture. OT Strength Comments Strength Comments RUE 4-/5 throughtout, LUE from elbow to distal 4-/5. M9 OT- IP Assessment and Plan Start: 02/20/18 12:34 Freq: Status: Active Protocol: Document 02/22/18 15:37 [facility] (Rec: 02/22/18 15:47 [facility] [email or web address]) OT Summary Assessment and Plan Potential Rehabilitation Potential Excellent Analytic Complexity at Evaluation Low Summary Assessment Summary Pt would benefit from skilled rehab to continues to work on blood sugar needs, increase overall safety and endurance, and increase function for LUE, and functional cognition for bill payment and medication management needs. Goals Bathing Goal Independent Shower Transfer Goal Independent OT-Other Goals Pt to be independent for safety awareness, be able to state accurately what to do for her blood sugar needs, what to eat, etc... Days to Meet Goals 5 Frequency of Treatment Frequency Of Treatment Once a Day Treatment Plan OT Treatment Plan ADL Training Functional Cognition Training Functional Mobility Patient/Family Education Discharge Planning Discharge Recommendations OT Discharge Recommendations SNF Rehab
--- NOTE | 2018-02-22 16:49 | P.PN_ITS ---
Subjective Date Patient Seen: 02/22/18 Time Patient Seen: 13:47 Interval history: History of present illness Follow-up on patient with uncontrolled diabetes. Note patient normally takes Lantus at 16 units at night. Patient has had varying dosing of her Lantus at night. 20 units did not seem sufficient. 30 units of Lantus at bedtime resulted in a sugar of 38 the following morning. I next played it safe by splitting the Lantus to 12 units b.i.d. Since his sugar in a.m. today was 250 I will give 20 units tonight since 12 units were given this morning and tomorrow night will have patient take 24 units At bedtime and thereafter if this turns out to be the appropriate dosing of Lantus Review of systems No chest pain or shortness of breath no nausea Appetite is good bowel movements are okay Exam Vital Signs (past 8 hours): - 02/22/18 11:50 02/22/18 15:27 Temperature 98.1 F 98.0 F Pulse Rate 84 74 Respiratory Rate 16 21 Blood Pressure 122/76 132/77 Pulse Oximetry 97 97 Oxygen Delivery Method Room Air Oxygen Flow Rate 0 Narrative Exam Narrative: General appearance patient is awake and alert no apparent distress at rest Psychiatric patient is well oriented to time place and person mood is pleasant Respiratory clear to auscultation with good airflow no wheezes no crackles Cardiovascular regular rate rhythm no murmurs +3 pulses to extremities GI is benign soft nontender positive bowel sounds no masses no distention no bruits Neurologic no focal neurologic changes cranial nerves 2-12 grossly intact Objective Labs Result Diagrams: 02/22/18 05:39 02/22/18 05:39 Labs: Laboratory Results - last 24 hr 02/22/18 02/22/18 02/22/18 05:39 05:39 05:39 WBC 6.6 D RBC 3.62 L Hgb 11.2 L Hct 33.1 L MCV 91.5 MCH 31.1 MCHC 34.0 RDW 13.7 Plt Count 135 L Neut % (Auto) 60.9 D Lymph % (Auto) 26.9 [place] % (Auto) 10.7 Eos % (Auto) 1.2 L Baso % (Auto) 0.3 Neut # (Auto) 4000 Sodium 136 L Potassium 3.7 Chloride 104 Carbon Dioxide 27 BUN 11 Creatinine 0.50 L Estimated GFR > 60.0 BUN/Creatinine Ratio 22.0 Glucose 225 H D Calcium 7.9 L Total Bilirubin 0.6 AST 47 H ALT 49 Alkaline Phosphatase 65 Total Protein 4.9 L Albumin 2.5 L Globulin 2.4 Albumin/Globulin Ratio 1.0 Cortisol AM Sample 12.3 Assessment & Plan Plan: Assessment/Plan Narrative: Uncontrolled Diabetes type 2 on long-term insulin therapy Note the hemoglobin A1c of 11.3% and a glucose level of 522 on admission Patient had a blood sugar of only 38 this morning at 5:30 a.m. 02/21 which may be explained by the increased dose of Lantus given at night, the night before hand Lantus was increased from 20 units up to 30 units at bedtime 02/20 and may have caused the hypoglycemia and a.m. on 02/21 On 02/21 adjusted the Lantus to 12 units b.i.d.. Insulin sliding scale as needed. Advanced diet to ADA diet 1800 calorie per day Requested to nursing staff that patient's self administer all insulin as possible to demonstrate she can do so Gastric emptying study cannot be done until Saturday of next week. Nursing staff notes patient eating seemingly okay with no intolerance. Will give 20 units of Lantus this evening on 02/22 and tomorrow evening increased to 24 units of Lantus at bedtime subcu. This may be the appropriate dosing at bedtime This remains to be seen Note an a.m. a fasting cortisol 02/22 was 12.3 Weakness and dehydration IV fluids being provided initially IV fluids to saline lock in a.m. on 02/22 since patient is taking fluids and by mouth adequately History of stroke Patient had CVA 4 months ago. According to patient's significant other no cognitive decline over the past 4 months Time Spent With Patient Time with patient: 25 - 35 minutes (30 min) Quality VTE Deep Vein Thrombosis/Pulmonary Embolism Present on Admission: No
[2018-02-22] MEDS: MIRTAZAPINE 7.5 MG TABLET 3.75 MG PO (20:17)
[2018-02-22] MEDS: ATORVASTATIN 20 MG TABLET 40 MG PO (20:17)
[2018-02-23 03:50] VITALS: BP 141/80; PULSE 73; RESP 14; TEMP 36.6; O2SAT 97
--- NOTE | 2018-02-23 04:12 | PC.NURSE ---
Addendum entered by Padmini Rodriguez R.N. 02/23/18 04:51: patient AO and able to tell me who she is, where she is, and what the date is appropriately, however did not use her call light when she needed to get up. Original Note: NOC patient has been up to BSC several times this shift and hasn't gotten a lot of sleep. Patient alert, but hasn't been using her call light appropriately and seems to be more confused now (701) then at the start of shift. Patient unsure of time, even after WELDING MANAGER and I have reoriented her to place and time. I pointed out the clock, yet she still asked if we wanted dinner. We have responded to the patient's bed alarm several times in the last couple hours, even though we asked her to use her call light.
[2018-02-23 06:07] LABS: Add Manual Diff / Slide Review NO; Basophils Percent Auto 0.1 % (0-2); Eosinophils Percent Auto 0.7 % (2-4); Hematocrit 35.6 % (36-46); Lymphocytes Percent Auto 13.4 % (25-40); Mean Corpuscular HGB Conc 33.9 % (30-36); Mean Corpuscular Hemoglobin 30.7 PG (26-34); Mean Corpuscular Volume 90.5 fL (80-100); Monocytes Percent Auto 7.1 % (3-14); Neutrophils Absolute Auto 9000 /uL (3000-5900); Neutrophils Percent Auto 78.7 % (50-75); Platelet Count 136 X10^3/uL (150-400); Red Blood Cell Count 3.93 X10^6/uL (4.0-5.2); Red Cell Distribution Width 13.9 % (11.6-14.8); White Blood Cell Count 11.4 X10^3/uL (4.5-11.0)
[2018-02-23 06:23] LABS: Alanine Aminotransferase 44 IU/L (9-52); Albumin 2.7 g/dL (3.5-5.0); Alkaline Phosphatase 68 U/L (38-126); Aspartate Aminotransferase 29 IU/L (14-36); Bilirubin Total 0.9 mg/dL (0.2-1.3); Blood Urea Nitrogen 11 mg/dL (7-17); Calcium 8.4 mg/dL (8.4-10.2); Carbon Dioxide 28 mmol/L (22-32); Chloride 100 mmol/L (98-107); Estimated Glomerular Filt Rate > 60.0 mL/min (>60); Globulin 2.7 g/dL (1.7-4.1); Glucose 158 mg/dL (80-110); HEMOLYSIS < 15 (0-50); Potassium 3.4 mmol/L (3.4-5.1); Sodium 135 mmol/L (137-145); Total Protein 5.4 g/dL (6.3-8.2)
[2018-02-23 07:30] VITALS: O2SAT 98
[2018-02-23 07:36] VITALS: BP 128/79; PULSE 73; RESP 16; TEMP 36.7; O2SAT 95
[2018-02-23 08:21] VITALS: BP 128/79; PULSE 73
[2018-02-23] MEDS: LISINOPRIL 20 MG TABLET 40 MG PO (08:21)
[2018-02-23] MEDS: AMLODIPINE 5 MG TABLET 10 MG PO (08:22)
[2018-02-23] MEDS: CHOLECALCIFEROL (VITAMIN D3) 1,000 UNIT TABLET 4000 UNIT PO (08:22)
[2018-02-23] MEDS: INSULIN ASPART 100 UNIT/ML INSULN PEN SUBCUT ×2 (08:22→12:22)
[2018-02-23] MEDS: ENOXAPARIN 40 MG/0.4 ML SYRINGE SUBCUT (08:22)
[2018-02-23] MEDS: CHLORTHALIDONE 25 MG TABLET PO (08:22)
--- NOTE | 2018-02-23 10:57 | OT.IP.TRT ---
Current Diagnoses Type 2 diabetes mellitus with hyperglycemia (02/22/18) Hyperlipidemia, unspecified (02/22/18) Dehydration (02/22/18) Essential (primary) hypertension (02/22/18) Other sequelae of cerebral infarction (02/22/18) Nausea (02/22/18) Nausea with vomiting, unspecified (02/22/18) Unspecified disturbances of skin sensation (02/22/18) Other amnesia (02/22/18) Other fatigue (02/22/18) Abnormal weight loss (02/22/18) Occupational Therapy Treatment Note M2 OT-IP Current Condition Start: 02/20/18 12:34 Freq: Status: Active Protocol: Document 02/20/18 10:23 [facility] (Rec: 02/20/18 16:48 [facility] [email or web address]) Occupational Therapy Current Condition Current Condition Evaluation Date 02/20/18 Treatment Diagnosis Acuter dehydration, weakness Diagnosis Onset Date 02/19/18 Weight Bearing Status Weight Bearing Status Full Weight Bearing M3 OT- IP Subjective and Pain Start: 02/20/18 12:34 Freq: Status: Active Protocol: Document 02/23/18 10:52 [facility] (Rec: 02/23/18 10:57 [facility] [email or web address]) OT- Subjective Occupational Therapy Visit Type Type Administrative Note Notes Pt now wanting to go home and agrees that pt is doing much better now. assistant department manager also present, pt and still requesting home health for nursing needs. Pt feels that she does not want any OT/PT home health at this time.
[2018-02-23 11:34] VITALS: BP 123/74; PULSE 82; RESP 14; TEMP 36.7; O2SAT 96
--- NOTE | 2018-02-23 13:11 | CM.DPC ---
Addendum entered by Verona Joya LPN 02/23/18 13:48: Spoke now with RN Glenda. She states she has been working with pt today on her insulin management and using tools such as the specifics of pen click and magnifying glass. Pt notes part of her issue have been her eyesight and she found all of this very helpful today. Pablo confirms his cell: [phone]. says he does not pick it up on ring. a vm must be left for him. Have provided the [facility] number and encouraged him to call them tomorrow to see when they will be out to see his . Original Note: DCP: continued: discussed case in Team Rounds this morning with Dr. Cochran. OT Carmen was also present. Dr. Cochran noted that the d/c dispo would be left to PT to decide as he stated that pt had a good grasp of her diabetic management and her was attentive. He stated he planned to d/c pt home today as her was off today. Requested consideration of HH RN and Dr. Cochran agreed and signed the Face/Face. Met then with pt and her in company of REJI Morales. Pt was found lying in bed looking lethargic. Discussed d/c dispo. Pt now says he wants to go home and her says she is actually doing much better that she has in quite some time. He does continue to want a HH RN and pt will only consider [facility]. They are cautioned that [facility] is closed today so that the referral can be called in and faxed (done) but that this DCPlanner cannot confirm when they will be able to see pt. They express understanding of same. Have left a vm with [facility] requesting that pt be called tomorrow with information on when [facility] would be able to see her. Checked in again now. Pt and are waiting to see Dr. Cochran. The d/c is still expected today.
--- NOTE | 2018-02-23 14:49 | PT.IPTN ---
Current Diagnoses Type 2 diabetes mellitus with hyperglycemia (02/22/18) Hyperlipidemia, unspecified (02/22/18) Dehydration (02/22/18) Essential (primary) hypertension (02/22/18) Other sequelae of cerebral infarction (02/22/18) Nausea (02/22/18) Nausea with vomiting, unspecified (02/22/18) Unspecified disturbances of skin sensation (02/22/18) Other amnesia (02/22/18) Other fatigue (02/22/18) Abnormal weight loss (02/22/18) Physical Therapy Treatment Note M2 PT-IP Current Condition Start: 02/19/18 17:06 Freq: NEEDED Status: Active Protocol: Document 02/20/18 15:45 [facility] (Rec: 02/20/18 17:47 [facility] [id number]) Physical Therapy Current Condition Current Condition Evaluation Date 02/19/18 Treatment Diagnosis Muscle weakness Onset Date 02/19/18 Weight Bearing Status Weight Bearing Status Full Weight Bearing M3 PT-IP Subjective Start: 02/19/18 17:06 Freq: NEEDED Status: Active Protocol: Document 02/23/18 13:45 [facility] (Rec: 02/23/18 14:49 [facility] [id number]) Subjective Physical Therapy Visit Type Type Treatment Note Visit Start Time 13:45 Visit Stop Time 14:05 Total Visit Minutes 20 Number of CHASSIS DRIVER Visits 3 Physical Therapy Visit Comments Patient Comments Pt states she wants to go home . M4 PT-IP Mobility and Gait Start: 02/19/18 17:06 Freq: NEEDED Status: Active Protocol: Document 02/23/18 13:45 [facility] (Rec: 02/23/18 14:49 [facility] [id number]) PT-Bed Mobility Assessment Sit to Supine Sit to Supine Independent Scooting Scooting to Edge of Bed Independent PT-Transfer Assessment Sit to and From Stand Sit to and from Stand Standby Assistance Equipment Transfer Assistive Device None Gait Belt 4 Wheeled Walker Transfers Transfer Destination Bed Transfer Technique Stand Step Pivot Transfer Ability Level of Assist Standby Assistance Comments Mobility Comments Pt steady with transfers using 4WW. Gait Assessment Gait Gait Assistance Required: Standby Assistance Distance (Feet) 250 Able to Maintain Weight Bearing Status Yes During Gait Assistive Devices Assistive Device Gait Belt 4 Wheeled Walker Factors Limiting Gait Function Factors Limiting Gait Function Decreased Activity Tolerance Decreased Strength Comments Gait Comments Pt trialed 4WW. Pt has 4WW at home that she uses when she is fatigued or going to the grocery store. Stair Climbing Assessment Evaluation Level of Assist On Stairs Contact Guard Assistance Technique/Endurance Stair Climbing Direction Ascend and Descend Stair Climbing Technique Step to Step Number of Steps Climbed 1 Query Text: Stair Climbing Set # Repetitions (reps) 2 Comments Stair Climbing Comments Pt able to step up onto platform step with CGA. M5 PT-IP Objective Assessments Start: 02/19/18 17:06 Freq: NEEDED Status: Active Protocol: Document 02/20/18 15:45 [facility] (Rec: 02/20/18 17:47 [facility] [id number]) Orientation Orientation/Cognition Level of Alertness Alert Orientation Name Age Birthday Month Date Year Day of Week Place Situation Language Function Ability No Deficits Noted Safety Awareness Understands Safety Issues Memory Description Short Term Impaired Dough Molder Hand Impaired Comments slow speed of mental processing noted, cooperative, good effort with therapy, verbalizes frustration with her health problems but states no understanding of them Gross Range of Motion Upper Extremity ROM Assessment Left Impaired Impairments shoulder injury/pain Lower Extremity ROM Assessment Within Functional Limits Strength Upper Extremity Strength Assessment Left Impaired Lower Extremity Strength Assessment Bilaterally Impaired Hip hip flexion 4/5 Knee knees 4+/5 Ankle DF 5/5 Coordination Assessment Gross Coordination Gross Coordination WNL Sensation Assessment Sensation Gross Sensation WNL Muscle Tone Muscle Tone WNL Yes M6 PT-IP Treatment Start: 02/19/18 17:06 Freq: NEEDED Status: Active Protocol: Document 02/22/18 11:25 [facility] (Rec: 02/22/18 12:01 [facility] [email or web address]) Physical Therapy Treatment Education Education Provided Safety M7 PT-IP Assessment and Plan Start: 02/19/18 17:06 Freq: NEEDED Status: Active Protocol: Document 02/23/18 13:45 [facility] (Rec: 02/23/18 14:49 [facility] [id number]) PT Summary Assessment and Plan Summary Assessment Summary Pt with improved gait with use of 4WW. Pt has 4WW at home that she uses at home and out in town. Pt was able to safely perform stair training and seems safe to d/c home with assist when medically stable. Goals Transfer Goal Independent Gait Goal Independent Cane Gait Distance 300 feet Days to Meet Goals 2 Frequency of Treatment Frequency Of Treatment Once a Day Treatment Plan Physical Therapy Treatment Plan Transfer Training Gait Training Therapeutic Exercise Balance Retraining Discharge Planning Neuromuscular Re-ed Recommendations To Nursing Amount of Assist Needed Standby Assistance Discharge Recommendations PT Discharge Recommendations Home with Assistance Home Health
--- NOTE | 2018-02-23 15:03 | PM.DS.1 ---
History of Present Illness Date Patient Seen: 02/23/18 Time Patient Seen: 15:04 Chief complaint: vomiting not feeling well stroke in jun Narrative: Patient is a very pleasant 63 years of age female that is admitted to the hospital with complaints of weakness. Patient is noted on admission to have a glucose level of 522 with a hemoglobin A1c of 11.3%. Initially there was a concern that patient may have been noncompliant her medication. Patient had a stroke about 4 months ago and patient was feared as having progressive cognitive decline and inability to self administer her insulin. Patient has a who is at work during the day and would not be able to attend to the patient's insulin needs himself. Patient was admitted to the hospital to manage her uncontrolled diabetes and to further assess her cognitive ability in terms of self administration of insulin. Discharge Providers Date of admission: 02/22/18 08:48 Primary care physician: Jyoti Streeter MD Consults: 02/19/18 15:31 Consult to Dietitian, Adult Routine Comment: Reason For Exam: decrease po intake 02/19/18 15:38 Consult to Occupational Therapy Evaluate & Treat Comment: Physician Instructions: Evaluate and treat Consult to Physical Therapy Evaluate & Treat Comment: Physician Instructions: Evaluate and Treat 02/20/18 11:14 Consult to Physical Therapy Evaluate & Treat Comment: cont. treatment from 02/19 Physician Instructions: Evaluate and Treat 02/20/18 13:22 Consult to Speech Therapy Evaluate & Treat Comment: congitive eval Physician Instructions: Evaluate and treat 02/23/18 13:35 Consult to Home Health Routine Comment: diabetic management. insulin dependent Reason For Exam: home health RN at d/c Discharge provider: Antonio Cochran MD Discharge Date: 02/23/18 Summary Discharge Diagnosis: Uncontrolled Diabetes type 2 on long-term insulin therapy Will discharge patient home on Lantus at 24 units each evening subcu With her usual sliding scale as needed Follow with the PCP advised in the next 1 week for next available Weakness and dehydration IV fluids provided initially. History of stroke Patient had CVA 4 months ago. Short-term memory loss problem since the stroke apparently Hospital Course: During the hospitalization patient was established as being capable of self administering her insulin. This was witnessed by the nursing staff repeatedly. Patient's cognitive function appears to be stable since her stroke. She does have memory problem but is fully aware of this limitation and has her instructions out to do her insulin. When her 's at work she actually text her the let him know she took her insulin and perhaps even how much. That reassures her that everything is okay at home. The problem was that patient was not taking a sufficient amount of Lantus. Patient was on 16 units at bedtime. It appears at 24 units at bedtime would be more effective for the patient. Eight dose of 30 units of Lantus was given 1 night and the following morning her sugar was 38. Has noted by the physical therapist the patient is safe for discharge to home. As noted by the nursing staff patient can self administer her insulin safely. Will proceed to discharge to home today Status at Discharge Cognitive/behavioral status at discharge: Patient is awake and alert no apparent distress with good cognitive function for time place and person. She does have some short-term memory issues but she appears to overcome did with being meticulous regarding her insulin therapy Functional status at discharge: independent ambulation Time Spent with Patient Greater than 30 minutes (40 min to discharge) Exam Vital Signs (past 8 hours): - 02/23/18 07:30 02/23/18 07:36 02/23/18 08:21 Temperature 98.1 F Pulse Rate 73 73 Respiratory Rate 16 Blood Pressure 128/79 128/79 Pulse Oximetry 98 95 02/23/18 11:34 Temperature 98.1 F Pulse Rate 82 Respiratory Rate 14 Blood Pressure 123/74 Pulse Oximetry 96 Oxygen Delivery Method Room Air Oxygen Flow Rate 0 Narrative Exam Narrative: Awake alert no apparent distress Psychiatric well oriented to time place person Respiratory clear to auscultation with good air flow Cardiovascular regular rate rhythm no murmurs +3 pulses GI is benign and soft nontender Neurologic no focal neurologic changes cranial nerves 2-12 grossly intact Objective Labs Result Diagrams: 02/23/18 05:26 02/23/18 05:26 Labs: Laboratory Results - last 24 hr 02/23/18 02/23/18 05:26 05:26 WBC 11.4 H D RBC 3.93 L Hgb 12.0 Hct 35.6 L MCV 90.5 MCH 30.7 MCHC 33.9 RDW 13.9 Plt Count 136 L Neut % (Auto) 78.7 H Lymph % (Auto) 13.4 L [place] % (Auto) 7.1 Eos % (Auto) 0.7 L Baso % (Auto) 0.1 Neut # (Auto) 9000 H Sodium 135 L Potassium 3.4 Chloride 100 Carbon Dioxide 28 BUN 11 Creatinine 0.50 L Estimated GFR > 60.0 BUN/Creatinine Ratio 22.0 Glucose 158 H Calcium 8.4 Total Bilirubin 0.9 AST 29 ALT 44 Alkaline Phosphatase 68 Total Protein 5.4 L Albumin 2.7 L Globulin 2.7 Albumin/Globulin Ratio 1.0 Discharge Plan Discharge Plan Patient Disposition: Home Discharge Med Rec/Prescriptions Prescriptions: New insulin glargine [Lantus Solostar U-100 Insulin] 100 unit/mL (3 mL) insulin pen 24 unit SUBCUT DAILY Qty: 15 RF: 1 Continue Marijuana 1 ea DAILY RF: 0 multivitamin Tablet 1 tab PO DAILY RF: 0 atorvastatin 40 mg tablet 40 mg PO QPM RF: 0 zolpidem 5 mg tablet 2.5 mg PO QHS RF: 0 cholecalciferol (vitamin D3) [Vitamin D3] 1,000 unit Capsule 3,000 unit PO DAILY RF: 0 insulin aspart U-100 [Novolog Flexpen U-100 Insulin] 100 UNIT/1 ML insulin pen 5 - 10 unit SQ QIDACHS RF: 0 acetaminophen 325 MG tablet 325 mg PO Q4HP PRN (Reason: Pain, Mild) RF: 0 lisinopril 40 mg tablet 40 mg PO DAILY RF: 0 pen needle, diabetic 32 gauge x 5/32 needle RF: 0 chlorthalidone 25 mg tablet 25 mg PO DAILY RF: 0 amlodipine 10 mg tablet 10 mg PO DAILY RF: 0 mirtazapine 7.5 MG tablet 3.75 mg PO HS RF: 0 Discontinued insulin glargine [Lantus Solostar U-100 Insulin] 100 UNIT/1 ML insulin pen 16 unit SQ HS RF: 0 Follow up/Referrals: Jyoti Streeter MD [Primary Care Provider] - Provider Discharge Instructions Diet: Carb-consistent/Diabetic Skin/Wound/Dressing Care Report to your healthcare provider any signs of infection, such as:: chills, fever, increased pain and unusual drainage Visit Report/Discharge Packet Instructions: Blood Glucose, How to Check Your Blood Glucose, Complications of Type 2 Diabetes, Complications of Diabetes (Alternative Therapy), Hypoglycemia, Type 2 Diabetes, DI for Hyperglycemia -- Adult Discharge Data Primary Care Provider: Jyoti Streeter Attending Provider: Eliana Wolf Admit Date/Time: 02/22/18 08:48 Quality VTE Deep Vein Thrombosis/Pulmonary Embolism Present on Admission: No
--- NOTE | 2018-02-23 15:22 | PC.NURSE ---
pt alert and oriented, answers questions appropriately, involved in care and accepting to teaching. VSS on RA. Education provided on insulin administration and habits at home with insulin management. Verified pt was able to self administer. Had trouble selecting dose on insulin pen. Utilized supplementary methods (counting clicks during rotation) and re-verification of dose with magnifying glass and was able to satisfactorily select correct doses during a practice section. Physical therapy also state pt is safe with ambulation to discharge today
--- NOTE | 2018-02-23 15:50 | PC.NURSE ---
Discharge Note Pt A&O, VSS, no complaints of pain or discomfort. IV removed by day shift nurse. Belongings packed and taken by pt's . Discharge instructions given to pt along w/ new prescription for Lantus. No questions or concerns from pt and . Pt wheeled down via wheelchair to personal vehicle.
== END 2018-02-23 15:45 | disposition home or self-care (01) | DRG 637 ==
LOC: ED 13:34 → AC 14:06
PROVIDERS: Internal Medicine; Admitting Provider Internal Medicine; Emergency Provider Emergency Medicine; Family Provider Family Medicine; PCP Family Medicine; Visit Provider Internal Medicine
DX: E11.65 Type 2 diabetes mellitus with hyperglycemia (principal); E43 Unspecified severe protein-calorie malnutrition; I69.354 Hemiplegia and hemiparesis following cerebral infarction affecting left non-dominant side; Z68.1 Body mass index [BMI] 19.9 or less, adult; Z79.4 Long term (current) use of insulin; E86.0 Dehydration; I10 Essential (primary) hypertension; F17.210 Nicotine dependence, cigarettes, uncomplicated; E78.5 Hyperlipidemia, unspecified
CPT/HCPCS: 36415; 76700; 80048; 80053; 81001; 82150; 82533; 82550; 82962; 83036; 83690; 85025; 96125; 96361; 96374; 96375; 97116; 97164; 97165; 97530; 97535; 99283; 99284; 99406; G0378; J1650; J2270; J2405; J2765; J7050

== ENCOUNTER 2018-07-25 07:16 | Emergency (ER) | payer MEDICARE, MEDICAID, SELFPAY ==
[2018-02-19 15:21] VITALS: BMI 18.2
[2018-07-25 07:22] VITALS: BP 164/83; PULSE 59; RESP 18; TEMP 36.3; O2SAT 100
[2018-07-25 07:35] VITALS: BP 148/85; PULSE 62; RESP 18; TEMP 36.3; O2SAT 100
--- NOTE | 2018-07-25 07:46 | DI.RAD.S_ITS ---
PROCEDURE: XR CHEST 1V INDICATIONS: hypoglycemia, altered mental status TECHNIQUE: One view of the chest was acquired. COMPARISON: [facility], CR, XR CHEST 1 VIEW, 05/13/2018, 16:02. FINDINGS: Surgical changes and devices: Status post ORIF of left proximal humerus fracture. Cholecystectomy clips. Lungs and pleura: Lungs are clear. No pleural effusions or pneumothorax. Mediastinum: Mediastinal contours appear normal. Heart size is normal. Bones and chest wall: No suspicious bony lesions. Overlying soft tissues appear unremarkable. IMPRESSION: No acute cardiopulmonary disease process. Dictated by: Rosalinda Suazo MD, PhD on 07/25/2018 at 8:17 Approved by: Rosalinda Suazo MD, PhD on 07/25/2018 at 8:18
[2018-07-25 08:10] LABS: Add Manual Diff / Slide Review NO; Basophils Absolute Auto 0 /uL (0-100); Basophils Percent Auto 0.2 % (0-2); Eosinophils Absolute Auto 0 /uL (0-450); Eosinophils Percent Auto 0.1 % (2-4); Hematocrit 34.5 % (36-46); Hemoglobin 11.5 g/dL (12.0-16.0); Lymphocytes Absolute Auto 900 /uL (1100-4500); Lymphocytes Percent Auto 8.4 % (25-40); Mean Corpuscular HGB Conc 33.2 % (30-36); Mean Corpuscular Hemoglobin 32.1 PG (26-34); Mean Corpuscular Volume 96.7 fL (80-100); Monocytes Absolute Auto 600 /uL (0-900); Monocytes Percent Auto 5.7 % (3-14); Neutrophils Absolute Auto 8700 /uL (1500-7000); Neutrophils Percent Auto 85.6 % (50-75); Platelet Count 161 X10^3/uL (150-400); Red Blood Cell Count 3.57 X10^6/uL (4.0-5.2); Red Cell Distribution Width 15.3 % (11.6-14.8); White Blood Cell Count 10.2 X10^3/uL (4.5-11.0)
[2018-07-25 08:13] LABS: INR 0.9 (0.9-1.3); Prothrombin Time 10.6 SECONDS (10.1-12.7)
[2018-07-25 08:16] LABS: PTT Partial Thromboplastin Tim 32 SECONDS (26.4-36.2)
[2018-07-25 08:18] LABS: Alanine Aminotransferase 199 IU/L (9-52); Albumin 3.7 g/dL (3.5-5.0); Albumin Globulin Ratio 1.2 (1.0-2.8); Alkaline Phosphatase 109 U/L (38-126); Aspartate Aminotransferase 165 IU/L (14-36); BUN Creatinine Ratio 32.9 (6-22); Bilirubin Total 0.7 mg/dL (0.2-1.3); Blood Urea Nitrogen 23 mg/dL (7-17); Calcium 8.4 mg/dL (8.4-10.2); Carbon Dioxide 23 mmol/L (22-32); Chloride 109 mmol/L (98-107); Estimated Glomerular Filt Rate > 60.0 mL/min (>60); Ethanol (ETOH) < 10 mg/dL; Glucose 85 mg/dL (80-110); HEMOLYSIS < 15 (0-50); Potassium 4.1 mmol/L (3.4-5.1); Sodium 142 mmol/L (137-145); Total Protein 6.7 g/dL (6.3-8.2)
--- NOTE | 2018-07-25 08:18 | ED.GENADULT ---
HPI - General Adult General Chief complaint: Diabetic Problem Stated complaint: change in LOC, hypoglycemia Time Seen by Provider: 07/25/18 07:37 Source: patient Mode of arrival: ambulatory Limitations: no limitations History of Present Illness HPI narrative: This is a 63-year-old female comes to the emergency department with complaint of hypoglycemia. Today she was sort of staring not really focusing, her states she would answer questions but was very slow to answer. I did initially check sugar and it was 150 but when EMS arrived was 29. Patient was given dextrose and immediately improved. Patient states that she seems sort of foggy. EMS states she was able to answer questions except she got the day of the week and thought it was Saturday. She stated later after the dextrose that she thought about Saturday because her was home and he is usually at work on a Saturday. She states that she realized that he had told her last night that he was not going to work today. She had low blood sugar yesterday as well EMS arrived was treated and patient stated home at that time. asked for her to be transported today because of the recurrent episode of hypoglycemia. Patient denies any headaches, no vision changes, no chest pain, no shortness of breath, no nausea no vomiting. No diarrhea or constipation. No major urinary issues. Patient has not had any new changes to her medications other than her Lantus was decreased to 10 units in the morning and evening yesterday after seeing her primary care physician Dr. Streeter. She was on 12 units morning and evening before. She has been on this dosage along with her sliding scale regularly for several months. She has not had any other new medication changes. No recent illnesses. Patient states she is feeling back to normal at this time and her agrees. Related Data Home Medications Medication Instructions Recorded Confirmed Marijuana 1 ea MISCELLANEOUS DAILY 10/08/17 07/25/18 Novolog Flexpen U-100 Insulin 1 dose SUBCUT QIDACHS 10/08/17 07/25/18 acetaminophen 325 mg PO Q4HP PRN 10/08/17 07/25/18 atorvastatin 40 mg PO QPM 10/08/17 07/25/18 cholecalciferol (vitamin D3) 3,000 unit PO DAILY 10/08/17 07/25/18 [Vitamin D3] lisinopril 40 mg PO DAILY 10/30/17 07/25/18 pen needle, diabetic 10/30/17 07/25/18 amlodipine 10 mg PO DAILY 02/19/18 07/25/18 mirtazapine 7.5 mg PO BEDTIME 02/19/18 07/25/18 Vitamin B-12 1 tab PO DAILY 07/25/18 07/25/18 aspirin 325 mg PO DAILY 07/25/18 07/25/18 insulin glargine [Lantus Solostar 12 unit SUBCUT BEDTIME 07/25/18 07/25/18 U-100 Insulin] Allergies Allergy/AdvReac Type Severity Reaction Status Date / Time Iodine and Iodide Containing Allergy Unknown Verified 02/19/18 07:18 Produc [IODINE AND IODIDE CONTAINING PRODUC] latex [LATEX] Allergy Unknown Verified 02/19/18 07:18 Review of Systems Constitutional Reports other (slow to answers, had hard time answering.) [facility] Medical History Gallbladder disease (Chronic) CVA (cerebral vascular accident) (Acute) Diabetes (Acute) Hypertension (Acute) Surgical History No pertinent past surgical history (Acute) Social History household members: spouse Smoking Status: Current every day smoker alcohol intake: current Social History household members: spouse Smoking Status: Current every day smoker alcohol intake: current Exam Narrative Exam Narrative: GEN: well nourished, well appearing female, alert and oriented x 3, patient appears to be in no acute distress. HEENT: Atraumatic, pupils are equal round reactive to light, extraocular movements are intact, nares are clear, throat is clear without any exudates, erythema, tonsillar enlargement or uvular deviation, no facial droop. HEART: Regular rate and rhythm without murmur, clicks, rubs. LUNGS:Lungs clear to auscultation, no wheezes, rales, crackles, chest moves symmetrically ABD:bowel sounds normal, soft, non-tender, no guarding, rebound, rigidity, no masses noted, no hepatosplenomegaly :No CVA tenderness MSCL: Non-tender, no muscle atrophy, muscles strength 5/5 upper and lower extremities, full range of motion, patient holds left arm closer to her side she had injury with fracture and surgical repair in the last couple months But during discussion patient was actually able to extend without issue. NEURO:CN 2-12 intact, sensation normal Initial Vital Signs Initial Vital Signs: Vital Signs Temperature 97.4 F L 07/25/18 07:22 Pulse Rate 59 L 07/25/18 07:22 Respiratory Rate 18 07/25/18 07:22 Blood Pressure 164/83 H 07/25/18 07:22 Pulse Oximetry 100 07/25/18 07:22 Course Orders Ordered: ED Orders 07/25/18 07:45 EKG-12 Lead Stat 07/25/18 07:46 XR chest 1V Stat 07/25/18 07:58 Complete Blood Count AUTO DIFF Stat Comprehensive Metabolic Panel Stat Ethanol (ETOH) Stat Partial Thromboplastin Time Stat Prothrombin Time INR Stat Thyroid Stimulating Hormone Stat Troponin I Stat 07/25/18 09:00 Urine Microscopic Stat 07/25/18 09:08 US abdomen complete Stat Discontinued Medications Sodium Chloride (Normal Saline 0.9%) 1,000 mls @ 150 mls/hr IV CONT MIRIAM Last Admin: 07/25/18 08:28 Dose: 150 mls/hr Vital Signs - 8 hr 07/25/18 07:22 07/25/18 07:35 07/25/18 10:15 Temperature 97.4 F L 97.4 F L Pulse Rate 59 L 62 68 Respiratory Rate 18 18 18 Blood Pressure 148/85 H Blood Pressure [Right Arm] 164/83 H 148/84 H Pulse Oximetry 100 100 99 07/25/18 11:02 Temperature Pulse Rate 67 Respiratory Rate 18 Blood Pressure Blood Pressure [Right Arm] 161/71 H Pulse Oximetry 98 Medical Decision Making Lab Data Lab results reviewed: Yes I reviewed the patient's lab results. Result diagrams: 07/25/18 07:58 07/25/18 07:58 Lab Results 07/25/18 07/25/18 07/25/18 Range/Units 07:58 07:58 07:58 WBC 10.2 (4.5-11.0) X10^3/uL RBC 3.57 L (4.0-5.2) X10^6/uL Hgb 11.5 L (12.0-16.0) g/dL Hct 34.5 L (36-46) % MCV 96.7 (80-100) fL MCH 32.1 (26-34) PG MCHC 33.2 (30-36) % RDW 15.3 H (11.6-14.8) % Plt Count 161 (150-400) X10^3/uL Neut % (Auto) 85.6 H (50-75) % Lymph % (Auto) 8.4 L (25-40) % [place] % (Auto) 5.7 (3-14) % Eos % (Auto) 0.1 L (2-4) % Baso % (Auto) 0.2 (0-2) % Neut # (Auto) 8700 H (8412-1645) /uL Lymph # (Auto) 900 L (5654-0153) /uL [place] # (Auto) 600 (0-900) /uL Eos # (Auto) 0 (0-450) /uL Baso # (Auto) 0 (0-100) /uL PT 10.6 (10.1-12.7) SECONDS INR 0.9 (0.9-1.3) APTT 32 D (26.4-36.2) SECONDS Sodium 142 (137-145) mmol/L Potassium 4.1 (3.4-5.1) mmol/L Chloride 109 H (98-107) mmol/L Carbon Dioxide 23 (22-32) mmol/L BUN 23 H (7-17) mg/dL Creatinine 0.70 (0.52-1.04) mg/dL Estimated GFR > 60.0 (>60) mL/min BUN/Creatinine Ratio 32.9 H (6-22) Glucose 85 (80-110) mg/dL Calcium 8.4 (8.4-10.2) mg/dL Total Bilirubin 0.7 (0.2-1.3) mg/dL AST 165 H (14-36) IU/L ALT 199 H (9-52) IU/L Alkaline Phosphatase 109 (38-126) U/L Troponin I < 0.012 (0.01-0.034) ng/mL Total Protein 6.7 (6.3-8.2) g/dL Albumin 3.7 (3.5-5.0) g/dL Globulin 3.0 (1.7-4.1) g/dL Albumin/Globulin Ratio 1.2 (1.0-2.8) TSH (0.47-4.68) uIU/mL Urine RBC (0-5/HPF) Urine WBC (0-5/HPF) Ur Squamous Epith Cells Urine Bacteria (None) Ur Culture Indicated? Ethyl Alcohol < 10 mg/dL 07/25/18 07/25/18 Range/Units 07:58 09:00 WBC (4.5-11.0) X10^3/uL RBC (4.0-5.2) X10^6/uL Hgb (12.0-16.0) g/dL Hct (36-46) % MCV (80-100) fL MCH (26-34) PG MCHC (30-36) % RDW (11.6-14.8) % Plt Count (150-400) X10^3/uL Neut % (Auto) (50-75) % Lymph % (Auto) (25-40) % [place] % (Auto) (3-14) % Eos % (Auto) (2-4) % Baso % (Auto) (0-2) % Neut # (Auto) (7291-0199) /uL Lymph # (Auto) (7739-8317) /uL [place] # (Auto) (0-900) /uL Eos # (Auto) (0-450) /uL Baso # (Auto) (0-100) /uL PT (10.1-12.7) SECONDS INR (0.9-1.3) APTT (26.4-36.2) SECONDS Sodium (137-145) mmol/L Potassium (3.4-5.1) mmol/L Chloride (98-107) mmol/L Carbon Dioxide (22-32) mmol/L BUN (7-17) mg/dL Creatinine (0.52-1.04) mg/dL Estimated GFR (>60) mL/min BUN/Creatinine Ratio (6-22) Glucose (80-110) mg/dL Calcium (8.4-10.2) mg/dL Total Bilirubin (0.2-1.3) mg/dL AST (14-36) IU/L ALT (9-52) IU/L Alkaline Phosphatase (38-126) U/L Troponin I (0.01-0.034) ng/mL Total Protein (6.3-8.2) g/dL Albumin (3.5-5.0) g/dL Globulin (1.7-4.1) g/dL Albumin/Globulin Ratio (1.0-2.8) TSH 1.80 (0.47-4.68) uIU/mL Urine RBC 5-10/hpf H (0-5/HPF) Urine WBC 0-1/hpf (0-5/HPF) Ur Squamous Epith Cells 0-1 /hpf Urine Bacteria None seen (None) Ur Culture Indicated? Cult not indicated Ethyl Alcohol mg/dL Point of Care Testing Glucose POC 108 Urine Dip Bedside Urine Glucose 100 mg/dl Bedside Urine Bilirubin - Negative Bedside Urine Ketone - Negative Urine Specific [place] 1.030 Bedside Urine Occult Blood ++ Bedside Urine pH 5.5 Bedside Urine Protein ++ 100 Bedside Urine Urobilinogen - Negative Bedside Urine Nitrite - Negative Bedside Urine Leukocytes - Negative Esterase Point of care testing: Point of Care Testing Glucose POC 108 Urine Dip Bedside Urine Glucose 100 mg/dl Bedside Urine Bilirubin - Negative Bedside Urine Ketone - Negative Urine Specific [place] 1.030 Bedside Urine Occult Blood ++ Bedside Urine pH 5.5 Bedside Urine Protein ++ 100 Bedside Urine Urobilinogen - Negative Bedside Urine Nitrite - Negative Bedside Urine Leukocytes - Negative Esterase Imaging Data Chest x-ray: Radiologist's impression: Kristine Moon Allyson 63 F 1955 [place] [address] XRay Report Signed Patient: Kristine Moon R#: [id number] : [id number]:[id number] Age/Sex: 63 / FDate of Service: 07/25/18 Loc: ED Accession Number: [id number] Procedure: XR chest 1V Ordering Provider: Shwetha Taylor D.O. PROCEDURE: XR CHEST 1V INDICATIONS: hypoglycemia, altered mental status TECHNIQUE: One view of the chest was acquired. COMPARISON: [facility], , XR CHEST 1 VIEW, 05/13/2018, 16:02. FINDINGS: Surgical changes and devices: Status post ORIF of left proximal humerus fracture. Cholecystectomy clips. Lungs and pleura: Lungs are clear. No pleural effusions or pneumothorax. Mediastinum: Mediastinal contours appear normal. Heart size is normal. Bones and chest wall: No suspicious bony lesions. Overlying soft tissues appear unremarkable. IMPRESSION: No acute cardiopulmonary disease process. Dictated by: Rosalinda Suazo MD, PhD on 07/25/2018 at 8:17 Approved by: Rosalinda Suazo MD, PhD on 07/25/2018 at 8:18 abd US: Radiologist's impression: Kristine Moon 63 F 1955 [place] [address] Ultrasound Report Signed Patient: Kristine Moon RMR#: [id number] : [id number]:[id number] Age/Sex: 63 / FDate of Service: 07/25/18 Loc: ED Accession Number: [id number] Procedure: US abdomen complete Ordering Provider: Shwetha Taylor D.O. PROCEDURE: US ABDOMEN COMPLETE INDICATIONS: ELEVATED LFT's, HX OF ETOH USE, HYPOGLYCEMIA TECHNIQUE: Real-time scanning was performed of the abdominal and retroperitoneal organs, with image documentation. COMPARISON: [facility], US, US ABDOMEN COMPLETE, 02/20/2018, 9:12. FINDINGS: Liver: Liver is at the upper limits of normal in size. There is a somewhat coarsened appearance. No focal mass is identified. There is appearance of varicosities at the andreina hepatis. Gallbladder: The gallbladder has been removed. Biliary ducts: Intrahepatic bile ducts are non-dilated. Extrahepatic bile duct caliber measures 4.8 mm. Normal is 6-7 mm or less in diameter, or 10 mm or less post-cholecystectomy. Pancreas: Visualized portions of the pancreas are sonographically normal. Spleen: Spleen is normal in size, measuring 8.9 cm. It is homogeneous in echotexture. No splenic varices are identified. Kidneys: Kidneys are normal in size and echotexture. Right kidney measures 11.9 cm long; left kidney measures 12.3 cm long. No hydronephrosis or nephrolithiasis. No solid masses. Aorta: Visualized aorta is normal in caliber at less than 3 cm. Iliacs: Proximal common iliac arteries are not well seen. IVC: Intrahepatic inferior vena cava is patent. Miscellaneous: No free abdominal fluid. IMPRESSION: 1. Heterogeneous appearance of the liver with varicosities at the andreina hepatis suggestive of cirrhosis with portal venous hypertension. Dictated by: Autumn Robledo M.D. on 07/25/2018 at 10:06 Approved by: Autumn Robledo M.D. on 07/25/2018 at 10:10 ECG Data Attestation: I personally reviewed and interpreted this ECG as follows: Interpretation: Sinus rhythm with a rate of 62 P are interval 161 QRS 89 and QTC of 477. T-wave changes in 1 and aVL. Patient has prior from 10/2017 that Appears somewhat similar but not as distinct and 1 in aVL. MDM Narrative Medical decision making narrative: Discussed with patient she does have cirrhotic like changes on ultrasound with elevated LFTs. She does continue to drink although per her and her significantly less than she did before. Discussed that this could be related to her hypoglycemia although not clearly the only potential cause. We did discussed backing off on her Lantus I recommended starting with 8 units but if they were uncomfortable we did discuss they could decrease to 5 units. I also asked him to call her primary care to continue to titrate her medications. Patient has been asymptomatic since arrival. Repeat glucose is in a appropriate range. Patient's lab work does not show any other major changes. Patient does not have any source of infection or other causes that are clearly causing her hypoglycemia. Discharge Plan Departure Patient Disposition: Home Clinical Impression: Hypoglycemia, Elevated LFTs Discharge Date/Time: 07/25/18 11:05 Interventions: ED Discharge Assessment Last Done: 07/25/18 11:05 Instructions: DI for Hypoglycemia Activity Restrictions/Additional Instructions: Follow-up with your primary care physician in next 3-4 days for recheck. Call this afternoon for an appointment. Decrease your Lantus to 8 units at bedtime. You may continue with your normal Lantus dose in the morning. Continue to monitor sugars closely. Your liver enzymes are elevated, they have been intermittently elevated according to her past labs this is likely secondary to prior alcohol use and current alcohol use. Return to the emergency department for fevers greater than 100.4, recurrent hypoglycemia, new chest pain, shortness of breath, persistent nausea or vomiting, weakness or other new or concerning symptoms. Prescriptions: No Action Marijuana 1 ea miscellaneous DAILY RF: 0 atorvastatin 40 mg tablet 40 mg PO QPM RF: 0 cholecalciferol (vitamin D3) [Vitamin D3] 1,000 unit Capsule 3,000 unit PO DAILY RF: 0 Novolog Flexpen U-100 Insulin 100 UNIT/1 ML insulin pen 1 dose subcut QIDACHS RF: 0 acetaminophen 325 MG tablet 325 mg PO Q4HP PRN (Reason: Pain, Mild) RF: 0 aspirin 325 mg Tablet 325 mg PO DAILY RF: 0 Vitamin B-12 1 tab PO DAILY RF: 0 Lantus Solostar U-100 Insulin 100 unit/mL (3 mL) insulin pen 12 unit SUBCUT BEDTIME RF: 0 lisinopril 40 mg tablet 40 mg PO DAILY RF: 0 pen needle, diabetic 32 gauge x 5/32 needle RF: 0 amlodipine 10 mg tablet 10 mg PO DAILY RF: 0 mirtazapine 7.5 MG tablet 7.5 mg PO BEDTIME RF: 0 Referrals: Jyoti Streeter MD [Primary Care Provider] -
[2018-07-25] MEDS: SODIUM CHLORIDE 0.9% 1,000 ML 150 ML IV (08:28)
[2018-07-25 08:29] LABS: Troponin I < 0.012 ng/mL (0.01-0.034)
--- NOTE | 2018-07-25 09:08 | DI.US.S_ITS ---
PROCEDURE: US ABDOMEN COMPLETE INDICATIONS: ELEVATED LFT's, HX OF ETOH USE, HYPOGLYCEMIA TECHNIQUE: Real-time scanning was performed of the abdominal and retroperitoneal organs, with image documentation. COMPARISON: [facility], , US ABDOMEN COMPLETE, 02/20/2018, 9:12. FINDINGS: Liver: Liver is at the upper limits of normal in size. There is a somewhat coarsened appearance. No focal mass is identified. There is appearance of varicosities at the andreina hepatis. Gallbladder: The gallbladder has been removed. Biliary ducts: Intrahepatic bile ducts are non-dilated. Extrahepatic bile duct caliber measures 4.8 mm. Normal is 6-7 mm or less in diameter, or 10 mm or less post-cholecystectomy. Pancreas: Visualized portions of the pancreas are sonographically normal. Spleen: Spleen is normal in size, measuring 8.9 cm. It is homogeneous in echotexture. No splenic varices are identified. Kidneys: Kidneys are normal in size and echotexture. Right kidney measures 11.9 cm long; left kidney measures 12.3 cm long. No hydronephrosis or nephrolithiasis. No solid masses. Aorta: Visualized aorta is normal in caliber at less than 3 cm. Iliacs: Proximal common iliac arteries are not well seen. IVC: Intrahepatic inferior vena cava is patent. Miscellaneous: No free abdominal fluid. IMPRESSION: 1. Heterogeneous appearance of the liver with varicosities at the andreina hepatis suggestive of cirrhosis with portal venous hypertension. Dictated by: Autumn Robledo M.D. on 07/25/2018 at 10:06 Approved by: Autumn Robledo M.D. on 07/25/2018 at 10:10
[2018-07-25 09:09] LABS: Bacteria Urine None Seen
[2018-07-25 09:16] LABS: RBC Urine 5-10/HPF (0-5/HPF); Squamous Epithelial Cell Urine 0-1 /HPF; WBC Urine 0-1/HPF (0-5/HPF)
[2018-07-25 09:17] LABS: Culture Indicated Urine Cult Not Indicated
[2018-07-25 10:15] VITALS: BP 148/84; PULSE 68; RESP 18; O2SAT 99
[2018-07-25 11:02] VITALS: BP 161/71; PULSE 67; RESP 18; O2SAT 98
--- NOTE | 2018-08-15 17:02 | PC.NURSE ---
normal saline 300 cc infused at 1100 wtihout incident.
== END 2018-07-25 11:05 | disposition home or self-care (01) ==
PROVIDERS: Emergency Provider Emergency Medicine; Family Provider Family Medicine; PCP Family Medicine
DX: E16.2 Hypoglycemia, unspecified (principal); R94.5 Abnormal results of liver function studies; I63.9 Cerebral infarction, unspecified; I10 Essential (primary) hypertension
CPT/HCPCS: 36415; 71045; 76700; 80053; 80320; 81003; 81015; 82962; 84443; 84484; 85025; 85610; 85730; 93005; 93010; 96360; 96361; 99283; 99285

== ENCOUNTER 2018-08-02 13:14 | Emergency (ER) | payer MEDICARE, SELFPAY ==
[2018-02-19 15:21] VITALS: BMI 18.2
[2018-08-02 13:17] VITALS: BP 136/79; PULSE 82; RESP 21; O2SAT 98
--- NOTE | 2018-08-02 13:42 | ED.AMS ---
HPI - Altered Mental Status General Chief Complaint: Altered Mental Status Stated Complaint: TIA Time Seen by Provider: 08/02/18 13:37 Source: patient Mode of arrival: ambulatory Limitations: no limitations History of Present Illness HPI narrative: This is a 63-year-old female comes to the emergency department with complaint that she could not remember her 's last name. states that has happened about noon. They did not notice any other changes. She did have a difficulty with speech she did have any word salad, no dysarthria, no other aphasia. Patient did not seem altered in any other way. She denies headache, no vision changes. No chest pain or shortness of breath. No nausea no vomiting no other GI symptoms. Patient had several hypoglycemic episodes recently which she was seen at the hospital for. She has not had any since. Today her sugar was 168 with this happened and was shortly checked afterwards by EMS and found to be 170. She has not continued to have any other symptoms. She has a history of alcohol abuse and per her has decreased alcohol intake but still does drink. She also uses marijuana daily. Related Data Home Medications Medication Instructions Recorded Confirmed Marijuana 1 ea MISCELLANEOUS DAILY 10/08/17 08/02/18 Novolog Flexpen U-100 Insulin 1 dose SUBCUT QIDACHS 10/08/17 08/02/18 acetaminophen 325 mg PO Q4HP PRN 10/08/17 08/02/18 atorvastatin 40 mg PO QPM 10/08/17 08/02/18 cholecalciferol (vitamin D3) 3,000 unit PO DAILY 10/08/17 08/02/18 [Vitamin D3] lisinopril 40 mg PO DAILY 10/30/17 08/02/18 pen needle, diabetic 10/30/17 08/02/18 amlodipine 10 mg PO DAILY 02/19/18 08/02/18 mirtazapine 7.5 mg PO BEDTIME 02/19/18 08/02/18 aspirin 325 mg PO DAILY 07/25/18 08/02/18 insulin glargine [Lantus Solostar 12 unit SUBCUT BEDTIME 07/25/18 08/02/18 U-100 Insulin] vitamin B complex [B 1 tab PO DAILY 08/02/18 08/02/18 Complex-Vitamin B12] Allergies Allergy/AdvReac Type Severity Reaction Status Date / Time Iodine and Iodide Containing Allergy Unknown Verified 08/02/18 13:25 Produc [IODINE AND IODIDE CONTAINING PRODUC] latex [LATEX] Allergy Unknown Verified 08/02/18 13:25 Review of Systems Review of Systems ROS Unobtainable: All systems reviewed & are unremarkable except as noted in HPI and below Constitutional Denies chills, Denies fever(s), Denies lethargy and Denies weakness ENT Ears, Nose, Mouth, and Throat: Denies other (Facial droop) Cardiovascular Denies chest pain, Denies diaphoresis, Denies syncope, Denies rapid heart rate, Denies edema, Denies irregular heart rhythm, Denies lightheadedness, Denies palpitations, Denies dyspnea, Denies dyspnea on exertion and Denies orthopnea Respiratory Denies chest congestion, Denies cough, Denies dyspnea, Denies dyspnea on exertion and Denies wheezing Gastrointestinal Gastrointestinal: Denies abdominal pain, Denies change in bowel habits, Denies diarrhea, Denies nausea and Denies vomiting Genitourinary Denies hematuria, Denies urinary frequency, Denies dysuria, Denies flank pain, Denies urinary incontinence and Denies urinary urgency Musculoskeletal Denies back pain, Denies muscle weakness, Denies numbness and Denies tingling Integumentary/Breasts Denies rash Neurologic Reports confusion (Could not remember significant others last name), Denies syncope, Denies focal weakness, Denies numbness, Denies sensory deficit, Denies tingling and Denies weakness Psychiatric Reports confusion (Could not remember significant others last name) Endocrine Denies palpitations Allergic/Immunologic Denies wheezing Exam Narrative Exam Narrative: GEN: well nourished, well appearing female, alert and oriented x 3, patient appears to be in no acute distress. HEENT: Atraumatic, pupils are equal round reactive to light, extraocular movements are intact, nares are clear, TMs are clear with no fluid, there is no conjunctival pallor. Throat is clear without any exudates, erythema, tonsillar enlargement or uvular deviation, no facial droop. HEART: Regular rate and rhythm without murmur, clicks, rubs. Pulses are equal in upper and lower extremities LUNGS:Lungs clear to auscultation, no wheezes, rales, crackles, chest moves symmetrically. ABD:bowel sounds normal, soft, non-tender, no guarding, rebound, rigidity, no masses noted, no hepatosplenomegaly :No CVA tenderness MSCL: Non-tender, no muscle atrophy, muscles strength 5/5 upper and lower extremities, full range of motion NEURO:CN 2-12 intact, sensation normal, reflexes 2/4 upper and lower extremities. finger nose finger test normal, heel lozada test normal Initial Vital Signs Initial Vital Signs: Vital Signs Pulse Rate 82 08/02/18 13:17 Respiratory Rate 21 08/02/18 13:17 Blood Pressure 136/79 08/02/18 13:17 Pulse Oximetry 98 08/02/18 13:17 Scores NIH Stroke Scale Level of Conciousness: Alert, keenly responsive Ask month/age: Answers both questions correctly. Open/close eyes, close hand: Performs both tasks correctly Best gaze horizontal: Normal Visual cuevas: No visual loss Facial palsy: Normal symetrical movement Left arm drift: No drift for full 10 sec Right arm drift: No drift for full 10 sec Left leg drift: No drift for full 10 sec Right leg drift: No drift for full 10 sec Limb ataxia: Absent Sensory on face/arms/legs: Normal, no sensory loss Best language: No aphasia, normal Dysarthria: Normal Extinction or inattention: No abnormality Total NIH Stroke scale score: 0 Course Orders Ordered: ED Orders 08/02/18 13:53 CT head/brain wo con Stat EKG-12 Lead Stat 08/02/18 14:10 Complete Blood Count AUTO DIFF Stat Comprehensive Metabolic Panel Stat Partial Thromboplastin Time Stat Prothrombin Time INR Stat Troponin I Stat 08/02/18 16:00 Urine Drug Screen, Rapid Stat Discontinued Medications Sodium Chloride (Normal Saline 0.9%) 1,000 mls @ 150 mls/hr IV CONT MIRIAM Last Admin: 08/02/18 16:16 Dose: Not Given Vital Signs - 8 hr 08/02/18 13:17 08/02/18 14:14 08/02/18 16:32 Temperature 98.2 F Pulse Rate 82 79 77 Respiratory Rate 21 16 18 Blood Pressure 136/79 123/80 Blood Pressure [Right Arm] 140/80 Pulse Oximetry 98 96 96 MDM - Altered Mental Status Lab Data Attestation: I reviewed the patient's lab results. Result diagrams: 08/02/18 14:10 08/02/18 14:10 Lab Results 08/02/18 08/02/18 08/02/18 Range/Units 14:10 14:10 14:10 WBC 7.0 (4.5-11.0) X10^3/uL RBC 4.08 (4.0-5.2) X10^6/uL Hgb 12.9 (12.0-16.0) g/dL Hct 38.4 (36-46) % MCV 93.9 (80-100) fL MCH 31.5 (26-34) PG MCHC 33.5 (30-36) % RDW 15.4 H (11.6-14.8) % Plt Count 115 L (150-400) X10^3/uL Neut % (Auto) 57.8 (50-75) % Lymph % (Auto) 24.0 L (25-40) % Porter % (Auto) 17.4 H (3-14) % Eos % (Auto) 0.1 L (2-4) % Baso % (Auto) 0.7 (0-2) % Neut # (Auto) 4000 (3245-2988) /uL Lymph # (Auto) 1700 (1648-8896) /uL Porter # (Auto) 1200 H (0-900) /uL Eos # (Auto) 0 (0-450) /uL Baso # (Auto) 100 (0-100) /uL PT 10.7 (10.1-12.7) SECONDS INR 0.9 (0.9-1.3) APTT 30 D (26.4-36.2) SECONDS Sodium 139 (137-145) mmol/L Potassium 3.7 (3.4-5.1) mmol/L Chloride 108 H (98-107) mmol/L Carbon Dioxide 20 L (22-32) mmol/L BUN 16 (7-17) mg/dL Creatinine 0.80 (0.52-1.04) mg/dL Estimated GFR > 60.0 (>60) mL/min BUN/Creatinine Ratio 20.0 (6-22) Glucose 184 H (80-110) mg/dL Calcium 8.4 (8.4-10.2) mg/dL Total Bilirubin 1.1 (0.2-1.3) mg/dL AST 49 H (14-36) IU/L ALT 49 (9-52) IU/L Alkaline Phosphatase 94 (38-126) U/L Troponin I < 0.012 (0.01-0.034) ng/mL Total Protein 6.4 (6.3-8.2) g/dL Albumin 3.2 L (3.5-5.0) g/dL Globulin 3.2 (1.7-4.1) g/dL Albumin/Globulin Ratio 1.0 (1.0-2.8) Urine Opiates Screen (Negative) Ur Oxycodone Screen (Negative) Urine Methadone Screen (Negative) Ur Barbiturates Screen (Negative) U Tricyclic Antidepress (Negative) Ur Phencyclidine Scrn (Negative) Ur Amphetamines Screen (Negative) U Methamphetamines Scrn (Negative) Ur MDMA Scrn (Ecstasy) (Negative) U Benzodiazepines Scrn (Negative) Urine Cocaine Screen (Negative) U Marijuana (THC) Screen (Negative) 08/02/18 Range/Units 16:00 WBC (4.5-11.0) X10^3/uL RBC (4.0-5.2) X10^6/uL Hgb (12.0-16.0) g/dL Hct (36-46) % MCV (80-100) fL MCH (26-34) PG MCHC (30-36) % RDW (11.6-14.8) % Plt Count (150-400) X10^3/uL Neut % (Auto) (50-75) % Lymph % (Auto) (25-40) % Porter % (Auto) (3-14) % Eos % (Auto) (2-4) % Baso % (Auto) (0-2) % Neut # (Auto) (4769-5917) /uL Lymph # (Auto) (2289-4195) /uL Porter # (Auto) (0-900) /uL Eos # (Auto) (0-450) /uL Baso # (Auto) (0-100) /uL PT (10.1-12.7) SECONDS INR (0.9-1.3) APTT (26.4-36.2) SECONDS Sodium (137-145) mmol/L Potassium (3.4-5.1) mmol/L Chloride (98-107) mmol/L Carbon Dioxide (22-32) mmol/L BUN (7-17) mg/dL Creatinine (0.52-1.04) mg/dL Estimated GFR (>60) mL/min BUN/Creatinine Ratio (6-22) Glucose (80-110) mg/dL Calcium (8.4-10.2) mg/dL Total Bilirubin (0.2-1.3) mg/dL AST (14-36) IU/L ALT (9-52) IU/L Alkaline Phosphatase (38-126) U/L Troponin I (0.01-0.034) ng/mL Total Protein (6.3-8.2) g/dL Albumin (3.5-5.0) g/dL Globulin (1.7-4.1) g/dL Albumin/Globulin Ratio (1.0-2.8) Urine Opiates Screen Negative (Negative) Ur Oxycodone Screen Negative (Negative) Urine Methadone Screen Negative (Negative) Ur Barbiturates Screen Negative (Negative) U Tricyclic Antidepress Negative (Negative) Ur Phencyclidine Scrn Negative (Negative) Ur Amphetamines Screen Negative (Negative) U Methamphetamines Scrn Negative (Negative) Ur MDMA Scrn (Ecstasy) Negative (Negative) U Benzodiazepines Scrn Negative (Negative) Urine Cocaine Screen Negative (Negative) U Marijuana (THC) Screen Positive H (Negative) Point of Care Testing Glucose POC 171 Urine Dip Bedside Urine Glucose Negative Bedside Urine Bilirubin + 1 Bedside Urine Ketone + 15 Urine Specific [place] 1.030 Bedside Urine Occult Blood + Bedside Urine pH 5.5 Bedside Urine Protein +++ 300 Bedside Urine Urobilinogen - Negative Bedside Urine Nitrite - Negative Bedside Urine Leukocytes - Negative Esterase Imaging Data CT scan - head: Radiologist's impression: [address] [address] [address] Scan Report Signed Patient: Kristine Moon RMR#: [id number] : 6Acct:[id number] Age/Sex: 63 / FDate of Service: 08/02/18 Loc: ED Accession Number: [id number] Procedure: CT head/brain wo con Ordering Provider: Shwetha Taylor D.O. PROCEDURE: CT HEAD/BRAIN WO CON INDICATIONS: confused, very short period, couldn't remember name TECHNIQUE: Noncontrast 4.5 mm thick angled axial sections acquired from the foramen magnum to the vertex, with coronal and sagittal reformats. For radiation dose reduction, the following was used: automated exposure control, adjustment of mA and/or kV according to patient size. COMPARISON: [facility], CT, CT HEAD/BRAIN WO YOHANNES, 10/08/2017, 12:43. FINDINGS: Image quality: Excellent. CSF spaces: Basal cisterns are patent. No extra-axial fluid collections. The ventricles are symmetric in size and shape. Brain: No intracranial bleeds or masses. There is cerebral volume loss for age, with resultant ventricular and sulcal prominence. There are periventricular and deep white matter chronic small vessel ischemic changes. Old, small, lacunar infarcts involving the right thalamus, right globus pallidus and right internal capsule are stable compared to 10/08/2017. Small, chronic heart sounds developed in the left erickson radiata and the milton the interval since prior exam. No acute infarcts are identified. There is intracranial internal carotid artery atherosclerosis. Skull and face: Calvarium and visualized facial bones appear intact, without suspicious lesions. Sinuses: Visualized sinuses and mastoids are clear. IMPRESSION: No acute intracranial disease process. Dictated by: Rosalinda Suazo MD, PhD on 08/02/2018 at 14:31 Approved by: Rosalinda Suazo MD, PhD on 08/02/2018 at 14:34 ECG Data Attestation: I personally reviewed and interpreted this ECG as follows: Interpretation: Sinus rhythm with short ME interval, nonspecific ST and T-wave abnormality. Ventricular rate of 75 P are interval of 107 QRS of 93 and QTC of 456. MDM Narrative Medical decision making narrative: patient's altered mental status was that she could not remember her 's or significant other's last name. She did not have any other neurologic changes by description from her or her . She also did not have any other type of confusion or altered mental. Discussed with patient and had CT was negative, lab work does not show major changes. Urine shows some ketones as well as hematuria, proteinuria but nothing such as a UTI. Discussed with Dr. Streeter her primary care who states she is continuing to drink alcohol regularly which she had told me although she had stated she drinks for less than she used to when she was an alcoholic, she also continues to use marijuana regularly. Um we discussed that these could be causing some of her symptoms although her states she has not had any more alcohol since last week. When she was last here for hypoglycemia. She has also not had any other hypoglycemic episodes and per EMS numbers as well as patient family checking her sugar they were normal at home. Plan to DC home with follow-up with Dr. Streeter who states that she has also been in process of setting up home health care so that she can be with them during the day. Dr. Arenas has been following with her and we discussed the wide differential for possible causes of her altered mental status and general medical problems including metabolic, neurologic, toxicologic, ect. Discharge Plan Departure Patient Disposition: Home Clinical Impression: Confusion Discharge Date/Time: 08/02/18 16:33 Interventions: ED Discharge Assessment Last Done: 08/02/18 16:32 Instructions: DI for Altered Mental Status Activity Restrictions/Additional Instructions: Follow-up with Dr. Streeter in the next week for recheck. Also follow up with home health, I spoke with Dr. Streeter and you should expect to see them either Saturday or Saturday. Continue home medication as prescribed. I would recommend avoiding marijuana and alcohol as this may exacerbate any symptoms. Return to the emergency department for fevers been 100.4, new confusion, no chest pain, shortness of breath, no vision changes, weakness or inability your arms or legs particularly on one side versus the other, persistent vomiting black or bloody stools or other new or concerning symptoms. Prescriptions: No Action Marijuana 1 ea miscellaneous DAILY RF: 0 atorvastatin 40 mg tablet 40 mg PO QPM RF: 0 cholecalciferol (vitamin D3) [Vitamin D3] 1,000 unit Capsule 3,000 unit PO DAILY RF: 0 Novolog Flexpen U-100 Insulin 100 UNIT/1 ML insulin pen 1 dose subcut QIDACHS RF: 0 acetaminophen 325 MG tablet 325 mg PO Q4HP PRN (Reason: Pain, Mild) RF: 0 aspirin 325 mg Tablet 325 mg PO DAILY RF: 0 Lantus Solostar U-100 Insulin 100 unit/mL (3 mL) insulin pen 12 unit SUBCUT BEDTIME RF: 0 lisinopril 40 mg tablet 40 mg PO DAILY RF: 0 pen needle, diabetic 32 gauge x 5/32 needle RF: 0 amlodipine 10 mg tablet 10 mg PO DAILY RF: 0 mirtazapine 7.5 MG tablet 7.5 mg PO BEDTIME RF: 0 vitamin B complex [B Complex-Vitamin B12] Tablet 1 tab PO DAILY RF: 0 Referrals: Jyoti Streeter MD [Primary Care Provider] -
--- NOTE | 2018-08-02 13:53 | DI.CT.S_ITS ---
PROCEDURE: CT HEAD/BRAIN WO CON INDICATIONS: confused, very short period, couldn't remember name TECHNIQUE: Noncontrast 4.5 mm thick angled axial sections acquired from the foramen magnum to the vertex, with coronal and sagittal reformats. For radiation dose reduction, the following was used: automated exposure control, adjustment of mA and/or kV according to patient size. COMPARISON: [facility], CT, CT HEAD/BRAIN WO CON, 10/08/2017, 12:43. FINDINGS: Image quality: Excellent. CSF spaces: Basal cisterns are patent. No extra-axial fluid collections. The ventricles are symmetric in size and shape. Brain: No intracranial bleeds or masses. There is cerebral volume loss for age, with resultant ventricular and sulcal prominence. There are periventricular and deep white matter chronic small vessel ischemic changes. Old, small, lacunar infarcts involving the right thalamus, right globus pallidus and right internal capsule are stable compared to 10/08/2017. Small, chronic heart sounds developed in the left erickson radiata and the milton the interval since prior exam. No acute infarcts are identified. There is intracranial internal carotid artery atherosclerosis. Skull and face: Calvarium and visualized facial bones appear intact, without suspicious lesions. Sinuses: Visualized sinuses and mastoids are clear. IMPRESSION: No acute intracranial disease process. Dictated by: Rosalinda Suazo MD, PhD on 08/02/2018 at 14:31 Approved by: Rosalinda Suazo MD, PhD on 08/02/2018 at 14:34
[2018-08-02 14:14] VITALS: BP 140/80; PULSE 79; RESP 16; O2SAT 96
[2018-08-02 14:19] LABS: Add Manual Diff / Slide Review NO; Basophils Absolute Auto 100 /uL (0-100); Basophils Percent Auto 0.7 % (0-2); Eosinophils Absolute Auto 0 /uL (0-450); Eosinophils Percent Auto 0.1 % (2-4); Hematocrit 38.4 % (36-46); Hemoglobin 12.9 g/dL (12.0-16.0); Lymphocytes Absolute Auto 1700 /uL (1100-4500); Mean Corpuscular HGB Conc 33.5 % (30-36); Mean Corpuscular Hemoglobin 31.5 PG (26-34); Mean Corpuscular Volume 93.9 fL (80-100); Monocytes Absolute Auto 1200 /uL (0-900); Monocytes Percent Auto 17.4 % (3-14); Neutrophils Absolute Auto 4000 /uL (1500-7000); Neutrophils Percent Auto 57.8 % (50-75); Platelet Count 115 X10^3/uL (150-400); Red Blood Cell Count 4.08 X10^6/uL (4.0-5.2); Red Cell Distribution Width 15.4 % (11.6-14.8)
[2018-08-02 14:22] LABS: INR 0.9 (0.9-1.3); Prothrombin Time 10.7 SECONDS (10.1-12.7)
[2018-08-02 14:24] LABS: PTT Partial Thromboplastin Tim 30 SECONDS (26.4-36.2)
[2018-08-02 14:28] LABS: Alanine Aminotransferase 49 IU/L (9-52); Albumin 3.2 g/dL (3.5-5.0); Alkaline Phosphatase 94 U/L (38-126); Aspartate Aminotransferase 49 IU/L (14-36); Bilirubin Total 1.1 mg/dL (0.2-1.3); Blood Urea Nitrogen 16 mg/dL (7-17); Calcium 8.4 mg/dL (8.4-10.2); Carbon Dioxide 20 mmol/L (22-32); Chloride 108 mmol/L (98-107); Estimated Glomerular Filt Rate > 60.0 mL/min (>60); Globulin 3.2 g/dL (1.7-4.1); Glucose 184 mg/dL (80-110); HEMOLYSIS < 15 (0-50); Potassium 3.7 mmol/L (3.4-5.1); Sodium 139 mmol/L (137-145); Total Protein 6.4 g/dL (6.3-8.2)
[2018-08-02 14:38] LABS: Troponin I < 0.012 ng/mL (0.01-0.034)
[2018-08-02 16:26] LABS: Urine Amphetamines Negative (Negative); Urine Barbiturates Negative (Negative); Urine Benzodiazepines Negative (Negative); Urine Cocaine Negative (Negative); Urine MDMA Negative (Negative); Urine Methadone Negative (Negative); Urine Methamphetamines Negative (Negative); Urine Morphine/Opi cutoff 2000 Negative (Negative); Urine Oxycodone Negative (Negative); Urine Phencyclidine Negative (Negative); Urine Tetrahydrocannabinol Positive (Negative); Urine Tricyclic Antidepressant Negative (Negative)
[2018-08-02 16:32] VITALS: BP 123/80; PULSE 77; RESP 18; TEMP 36.8; O2SAT 96
== END 2018-08-02 16:33 | disposition home or self-care (01) ==
PROVIDERS: Emergency Provider Emergency Medicine; PCP Family Medicine
DX: R41.0 Disorientation, unspecified (principal)
CPT/HCPCS: 36415; 70450; 80053; 80305; 81003; 84484; 85025; 85610; 85730; 93005; 99283; 99285

== ENCOUNTER 2019-02-20 12:53 | Emergency (ER) | payer MEDICARE, MEDICAID, SELFPAY ==
[2018-02-19 15:21] VITALS: BMI 18.2
[2019-02-20 13:05] VITALS: BP 137/73; PULSE 80; RESP 14; TEMP 36.6; O2SAT 98
[2019-02-20 13:57] LABS: Add Manual Diff / Slide Review NO; Basophils Absolute Auto 0 /uL (0-100); Basophils Percent Auto 0.3 % (0-2); Eosinophils Absolute Auto 0 /uL (0-450); Eosinophils Percent Auto 0.4 % (2-4); Hematocrit 43.3 % (36-46); Hemoglobin 14.4 g/dL (12.0-16.0); Lymphocytes Absolute Auto 1600 /uL (1100-4500); Mean Corpuscular HGB Conc 33.2 % (30-36); Mean Corpuscular Hemoglobin 30.8 PG (26-34); Mean Corpuscular Volume 92.9 fL (80-100); Monocytes Absolute Auto 800 /uL (0-900); Monocytes Percent Auto 9.3 % (3-14); Neutrophils Absolute Auto 6000 /uL (1500-7000); Platelet Count 215 X10^3/uL (150-400); Red Blood Cell Count 4.66 X10^6/uL (4.0-5.2); Red Cell Distribution Width 14.7 % (11.6-14.8); White Blood Cell Count 8.5 X10^3/uL (4.5-11.0)
[2019-02-20 14:00] VITALS: BP 136/80; PULSE 74; RESP 15; O2SAT 98
[2019-02-20 14:02] LABS: Alanine Aminotransferase 31 IU/L (9-52); Albumin 3.8 g/dL (3.5-5.0); Albumin Globulin Ratio 1.1 (1.0-2.8); Alkaline Phosphatase 109 U/L (38-126); Aspartate Aminotransferase 43 IU/L (14-36); BUN Creatinine Ratio 25.8 (6-22); Bilirubin Total 1.4 mg/dL (0.2-1.3); Blood Urea Nitrogen 31 mg/dL (7-17); Calcium 8.8 mg/dL (8.4-10.2); Carbon Dioxide 27 mmol/L (22-32); Chloride 91 mmol/L (98-107); Estimated Glomerular Filt Rate 45.4 mL/min (>60); Globulin 3.5 g/dL (1.7-4.1); Glucose 181 mg/dL (80-110); HEMOLYSIS 29 (0-50); Potassium 3.2 mmol/L (3.4-5.1); Sodium 135 mmol/L (137-145); Total Protein 7.3 g/dL (6.3-8.2)
[2019-02-20] MEDS: SODIUM CHLORIDE 0.9% 1,000 ML 1000 ML IV (14:02)
--- NOTE | 2019-02-20 14:02 | ED.DIZZY ---
HPI - Dizziness General Chief Complaint: Dizziness Stated Complaint: does not feel well, low blood sugar Time Seen by Provider: 02/20/19 13:07 Source: patient Mode of arrival: Wheelchair Limitations: no limitations History of Present Illness HPI Narrative: Patient is a 64-year-old female diabetic with history of hypo glycemia presenting with abdominal pain ongoing for about 4 days. She kept thinking that her sugar was low she took a glucose tablet this morning glucose seems to be normal. She is not eating or drinking very much she has not had a bowel movement for 4 days she feels nauseous but she is not vomiting. She feels a little dizzy and lightheaded whenever she stands up, it resolves if she sits down. She denies any still passing out. MD complaint: lightheadedness Related Data Home Medications Medication Instructions Recorded Confirmed Marijuana 1 ea INHALATION DAILY 10/08/17 02/20/19 Novolog Flexpen U-100 Insulin 1 dose SUBCUT QIDACHS 10/08/17 02/20/19 acetaminophen 325 mg PO Q4HP PRN 10/08/17 02/20/19 atorvastatin 40 mg PO QPM 10/08/17 02/20/19 cholecalciferol (vitamin D3) 3,000 unit PO DAILY 10/08/17 02/20/19 [Vitamin D3] lisinopril 40 mg PO DAILY 10/30/17 02/20/19 pen needle, diabetic 10/30/17 02/20/19 amlodipine 10 mg PO DAILY 02/19/18 02/20/19 mirtazapine 7.5 mg PO BEDTIME 02/19/18 02/20/19 aspirin 325 mg PO DAILY 07/25/18 02/20/19 vitamin B complex [B 1 tab PO DAILY 08/02/18 02/20/19 Complex-Vitamin B12] insulin glargine [Basaglar KwikPen 10 unit SUBCUT BID 02/20/19 02/20/19 U-100 Insulin] Allergies Allergy/AdvReac Type Severity Reaction Status Date / Time Iodine and Iodide Containing Allergy Unknown Verified 02/20/19 13:05 Produc [IODINE AND IODIDE CONTAINING PRODUC] latex [LATEX] Allergy Unknown Verified 02/20/19 13:05 Review of Systems Review of Systems Narrative: GENERAL: Denies chills, fatigue, malaise, fever, sweats, travel HEENT: Denies sinus pain, ear pain, sore throat, difficulty swallowing, neck pain RESPIRATORY: Denies dyspnea, cough, wheezing, hemoptysis, sputum. CARDIOVASCULAR: Denies chest pain, palpitations, orthopnea, edema GASTROINTESTINAL: See HPI : Denies dysuria, frequency, incontinence, hematuria, urinary retention, flank pain. MUSCULOSKELETAL: Denies weakness, joint pain, or bony pain SKIN: No rash, no erythema, no pruritus NEUROLOGIC: Denies weakness, dizziness, headache, numbness, change in speech, confusion PSYCHIATRIC: No concerning psychosocial issues. 12 point review of systems is negative except for those stated above and HPI [facility] Medical History CVA (cerebral vascular accident) (Acute) Diabetes (Acute) Gallbladder disease (Chronic) Hypertension (Acute) Surgical History No pertinent past surgical history (Acute) Social History household members: spouse Smoking Status: Current every day smoker alcohol intake: current Social History household members: spouse Smoking Status: Current every day smoker alcohol intake: current Exam Initial Vital Signs Initial Vital Signs: Vital Signs Temperature 97.8 F 02/20/19 13:05 Pulse Rate 80 02/20/19 13:05 Respiratory Rate 14 02/20/19 13:05 Blood Pressure 137/73 02/20/19 13:05 Pulse Oximetry 98 02/20/19 13:05 GENERAL: Well-appearing, well-nourished and in no acute distress. HEENT: Head atraumatic,EOMI, pupils reactive, face symmetric, moist mucous membranes CARDIOVASCULAR: Regular rate and rhythm without murmurs, rubs or gallops. RESPIRATORY: Breath sounds equal bilaterally, no wheezes rales or rhonchi. ABDOMEN: Soft, nontender. Normoactive bowel sounds all 4 quadrants. No guarding or rebound. EXTREMITIES: Normal range of motion, no clubbing or edema. Neurovascularly intact NEUROLOGICAL: Alert and oriented x4.Normal gait and speech. Cranial nerves II through XII grossly intact. SKIN: Warm, dry, no laceration, no petechiae, no rashes or lesions. Course Orders Ordered: ED Orders 02/20/19 13:37 Complete Blood Count AUTO DIFF Stat Comprehensive Metabolic Panel Stat Lipase Stat 02/20/19 14:15 CT abdomen pelvis w con Stat Discontinued Medications Diphenhydramine HCl (Benadryl) 25 mg IV NOW ONE Stop: 02/20/19 14:25 Last Admin: 02/20/19 14:36 Dose: 25 mg Documented by: FRANKO Sodium Chloride (Normal Saline 0.9%) 1,000 mls @ 1,000 mls/hr IV CONT MIRIAM Last Infusion: 02/20/19 15:52 Dose: 0 mls/hr Documented by: Admin: 02/20/19 14:02 Dose: 1,000 mls/hr Documented by: FRANKO Methylprednisolone (Solu-Medrol 125 Mg Vial) 125 mg IV NOW ONE Stop: 02/20/19 14:25 Last Admin: 02/20/19 14:36 Dose: 125 mg Documented by: FRANKO Vital Signs Vital signs: Vital Signs - 8 hr 02/20/19 13:05 02/20/19 14:00 02/20/19 15:00 Temperature 97.8 F Pulse Rate 80 74 69 Respiratory Rate 14 15 15 Blood Pressure 137/73 Blood Pressure [Left Arm] 136/80 166/81 H Pulse Oximetry 98 98 100 02/20/19 16:00 02/20/19 16:38 02/20/19 17:01 Temperature 98.0 F Pulse Rate 71 72 80 Respiratory Rate 15 15 16 Blood Pressure 154/84 H Blood Pressure [Left Arm] 163/82 H 158/84 H Pulse Oximetry 97 97 95 MDM - Dizziness Lab Data Attestation: I reviewed the patient's lab results. Result diagrams: 02/20/19 13:37 02/20/19 13:37 Labs: Lab Results 02/20/19 02/20/19 Range/Units 13:37 13:37 WBC 8.5 (4.5-11.0) X10^3/uL RBC 4.66 (4.0-5.2) X10^6/uL Hgb 14.4 (12.0-16.0) g/dL Hct 43.3 (36-46) % MCV 92.9 (80-100) fL MCH 30.8 (26-34) PG MCHC 33.2 (30-36) % RDW 14.7 (11.6-14.8) % Plt Count 215 (150-400) X10^3/uL Neut % (Auto) 71.0 (50-75) % Lymph % (Auto) 19.0 L (25-40) % [place] % (Auto) 9.3 (3-14) % Eos % (Auto) 0.4 L (2-4) % Baso % (Auto) 0.3 (0-2) % Neut # (Auto) 6000 (1343-6932) /uL Lymph # (Auto) 1600 (5861-1814) /uL [place] # (Auto) 800 (0-900) /uL Eos # (Auto) 0 (0-450) /uL Baso # (Auto) 0 (0-100) /uL Sodium 135 L (137-145) mmol/L Potassium 3.2 L (3.4-5.1) mmol/L Chloride 91 L (98-107) mmol/L Carbon Dioxide 27 (22-32) mmol/L BUN 31 H (7-17) mg/dL Creatinine 1.20 H (0.52-1.04) mg/dL Estimated GFR 45.4 L (>60) mL/min BUN/Creatinine Ratio 25.8 H (6-22) Glucose 181 H (80-110) mg/dL Calcium 8.8 (8.4-10.2) mg/dL Total Bilirubin 1.4 H (0.2-1.3) mg/dL AST 43 H (14-36) IU/L ALT 31 (9-52) IU/L Alkaline Phosphatase 109 (38-126) U/L Total Protein 7.3 (6.3-8.2) g/dL Albumin 3.8 (3.5-5.0) g/dL Globulin 3.5 (1.7-4.1) g/dL Albumin/Globulin Ratio 1.1 (1.0-2.8) Lipase < 10 L (23-300) U/L Point of Care Testing Glucose POC [address] scan - abdomen: Radiologist's impression: PROCEDURE: CT ABDOMEN PELVIS W CON INDICATIONS: ab pain TECHNIQUE: After the administration of intravenous contrast, 5 mm thick sections acquired from the diaphragm to the symphysis. 5 mm coronal and sagittal reformats were acquired. For radiation dose reduction, the following was used: automated exposure control, adjustment of mA and/or kV according to patient size. COMPARISON: [facility], CT, ABDOMEN/PELVIS WITH CONTRAST, 02/27/2016, 16:07. [facility], CT, ABDOMEN/PELVIS WITH CONTRAST, 04/11/2017, 12:38. FINDINGS: Image quality: Excellent. ABDOMEN: Lung bases: Lung bases are clear. Heart size is normal. Solid organs: Liver is normal in size and enhancement. Gallbladder is surgically absent. Chronically dilated biliary tree with air present in the biliary system, likely from remote surgery at the biliary sphincter. Extensive pancreatic calcifications from chronic pancreatitis. Spleen is normal in size and enhancement. No adrenal nodules. Kidneys demonstrate normal size and enhancement, without hydronephrosis. Peritoneum and bowel: Chronic marked thickening of the duodenal C-loop, not significantly changed. No free fluid or air. Nodes and vessels: No retroperitoneal or mesenteric adenopathy by size criteria. Aorta and inferior vena cava are normal in size. Extensive atherosclerotic calcifications of the aorta and bilateral iliac arteries. 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 Extensive periportal varicosities and anterior abdominal varicosities. Miscellaneous: No ventral hernias. PELVIS: Genitourinary: Bladder wall thickness is normal. Miscellaneous: No inguinal hernias or adenopathy. Bones: No suspicious bony lesions. No vertebral body compression fractures. Severe canal stenosis at L3-L4 and L4-L5. IMPRESSION: 1. Extensive changes of chronic pancreatitis. 2. Remote cholecystectomy, air in the biliary tree 3. 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 4. Marked thickening of the second portion of the duodenum, not significantly changed from the most recent prior study. This may potentially represent peritonitis. Duodenal lymphoma is not excluded. 5. Advanced aorto-biiliac atherosclerotic calcifications. 6. Severe canal stenosis at L3-L4 and L4-L5. Dictated by: Chito Arroyo M.D. on 02/20/2019 at 15:33 Approved by: Chito Arroyo M.D. on 02/20/2019 at 15:45 ECG Data Attestation: I personally reviewed and interpreted this ECG as follows: Prior ECG tracings: available for review Interpretation: Sinus rhythm rate 78 p.r. interval 144 QRS [address] elevations no T-wave inversions no ST depressions similar to previous EKG MDM Narrative Medical decision making narrative: Patient is noted to be slightly dehydrated creatinine of 1.2 previously 0.8 in July given a L of IV fluids tolerated oral fluids. CT showed chronic pancreatitis which she is known to have but lipase is negative and her pain is overall controlled. At this time no sign of acute pancreatitis. I recommended increasing her oral intake and fluids. Discussing strict return instructions with her and her . She has no localization of right upper quadrant pain bilirubin also noted to be slightly elevated 1.4 Discharge Plan Departure Patient Disposition: Home Clinical Impression: Acute dehydration Abdominal pain Qualifiers: Abdominal location: generalized Qualified Code(s): R10.84 - Generalized abdominal pain Discharge Date/Time: 02/20/19 17:02 Instructions: Dehydration, Acute Abdominal Pain Activity Restrictions/Additional Instructions: *You have been diagnosed with abdominal pain, dehydration *What to do: Increase fluid intake, recommend Gatorade or Gatorade like substance, Jell-O, applesauce. may advance diet as tolerated. CT and blood work overall reassuring today except showing some mild dehydration *Continue to take medications as directed *Follow up with your primary care provider in 2-3 days *Return to ER if you should have inability to tolerate fluids, worsening pain, persistent vomiting or any new, worsening or concerning symptoms Prescriptions: No Action Marijuana 1 ea inhalation DAILY RF: 0 atorvastatin 40 mg tablet 40 mg PO QPM RF: 0 cholecalciferol (vitamin D3) [Vitamin D3] 1,000 unit Capsule 3,000 unit PO DAILY RF: 0 Novolog Flexpen U-100 Insulin 100 UNIT/1 ML insulin pen 1 dose subcut QIDACHS RF: 0 acetaminophen 325 MG tablet 325 mg PO Q4HP PRN (Reason: Pain, Mild) RF: 0 aspirin 325 mg Tablet 325 mg PO DAILY RF: 0 Basaglar KwikPen U-100 Insulin 100 unit/mL (3 mL) insulin pen 10 unit SUBCUT BID RF: 0 lisinopril 40 mg tablet 40 mg PO DAILY RF: 0 (DME) pen needle, diabetic 32 gauge x 5/32 needle RF: 0 amlodipine 10 mg tablet 10 mg PO DAILY RF: 0 mirtazapine 7.5 MG tablet 7.5 mg PO BEDTIME RF: 0 vitamin B complex [B Complex-Vitamin B12] Tablet 1 tab PO DAILY RF: 0 Referrals: Jyoti Streeter MD [Primary Care Provider] -
[2019-02-20 14:03] LABS: Lipase < 10 U/L (23-300)
--- NOTE | 2019-02-20 14:15 | DI.CT.S_ITS ---
PROCEDURE: CT ABDOMEN PELVIS W CON INDICATIONS: ab pain TECHNIQUE: After the administration of intravenous contrast, 5 mm thick sections acquired from the diaphragm to the symphysis. 5 mm coronal and sagittal reformats were acquired. For radiation dose reduction, the following was used: automated exposure control, adjustment of mA and/or kV according to patient size. COMPARISON: [facility], CT, ABDOMEN/PELVIS WITH CONTRAST, 02/27/2016, 16:07. [facility], CT, ABDOMEN/PELVIS WITH CONTRAST, 04/11/2017, 12:38. FINDINGS: Image quality: Excellent. ABDOMEN: Lung bases: Lung bases are clear. Heart size is normal. Solid organs: Liver is normal in size and enhancement. Gallbladder is surgically absent. Chronically dilated biliary tree with air present in the biliary system, likely from remote surgery at the biliary sphincter. Extensive pancreatic calcifications from chronic pancreatitis. Spleen is normal in size and enhancement. No adrenal nodules. Kidneys demonstrate normal size and enhancement, without hydronephrosis. Peritoneum and bowel: Chronic marked thickening of the duodenal C-loop, not significantly changed. No free fluid or air. Nodes and vessels: No retroperitoneal or mesenteric adenopathy by size criteria. Aorta and inferior vena cava are normal in size. Extensive atherosclerotic calcifications of the aorta and bilateral iliac arteries. 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 Extensive periportal varicosities and anterior abdominal varicosities. Miscellaneous: No ventral hernias. PELVIS: Genitourinary: Bladder wall thickness is normal. Miscellaneous: No inguinal hernias or adenopathy. Bones: No suspicious bony lesions. No vertebral body compression fractures. Severe canal stenosis at L3-L4 and L4-L5. IMPRESSION: 1. Extensive changes of chronic pancreatitis. 2. Remote cholecystectomy, air in the biliary tree 3. 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 4. Marked thickening of the second portion of the duodenum, not significantly changed from the most recent prior study. This may potentially represent peritonitis. Duodenal lymphoma is not excluded. 5. Advanced aorto-biiliac atherosclerotic calcifications. 6. Severe canal stenosis at L3-L4 and L4-L5. Dictated by: Chito Arroyo M.D. on 02/20/2019 at 15:33 Approved by: Chito Arroyo M.D. on 02/20/2019 at 15:45
[2019-02-20] MEDS: diphenhydrAMINE 50 MG/ML VIAL 25 MG IV (14:36)
[2019-02-20] MEDS: methylPREDNISolone 125 MG/2 ML VIAL IV (14:36)
[2019-02-20 15:00] VITALS: BP 166/81; PULSE 69; RESP 15; O2SAT 100
[2019-02-20 16:00] VITALS: BP 163/82; PULSE 71; RESP 15; O2SAT 97
[2019-02-20 16:38] VITALS: BP 158/84; PULSE 72; RESP 15; O2SAT 97
[2019-02-20 17:01] VITALS: BP 154/84; PULSE 80; RESP 16; TEMP 36.7; O2SAT 95
== END 2019-02-20 17:02 | disposition home or self-care (01) ==
PROVIDERS: Emergency Provider Emergency Medicine; PCP Family Medicine
DX: E86.0 Dehydration (principal); R10.84 Generalized abdominal pain
CPT/HCPCS: 36415; 74177; 80053; 82962; 83690; 85025; 93005; 96361; 96374; 96375; 99283; 99285; J1200; J2930; Q9967

== ENCOUNTER 2019-04-12 19:03 | Emergency (ER) | payer MEDICARE, MEDICAID, SELFPAY ==
[2018-02-19 15:21] VITALS: BMI 18.2
[2019-04-12 19:10] VITALS: BP 178/97; PULSE 80; RESP 14; TEMP 36.8; O2SAT 98; BMI 20.2
--- NOTE | 2019-04-12 19:31 | DI.RAD.S_ITS ---
PROCEDURE: XR CHEST 1V INDICATIONS: chest pain TECHNIQUE: One view of the chest was acquired. COMPARISON: [facility], CR, XR CHEST 1V, 07/25/2018, 8:07. FINDINGS: Surgical changes and devices: ORIF of the left humerus is present. Lungs and pleura: Lungs are clear. No pleural effusions or pneumothorax. Mediastinum: Mediastinal contours appear normal. Heart size is normal. Bones and chest wall: No suspicious bony lesions. Overlying soft tissues appear unremarkable. IMPRESSION: No acute pulmonary process. Dictated by: Autumn Robledo M.D. on 04/12/2019 at 19:45 Approved by: Autumn Robledo M.D. on 04/12/2019 at 19:45
--- NOTE | 2019-04-12 19:34 | DI.CT.S_ITS ---
PROCEDURE: CT FACIAL BONES WO CON INDICATIONS: fall with trauma left orbit, memory issues TECHNIQUE: Noncontrast 2.5 mm thick axial images acquired from the mandible through the frontal sinuses, with coronal and sagittal reformatting. For radiation dose reduction, the following was used: automated exposure control, adjustment of mA and/or kV according to patient size. COMPARISON: [facility], CT, CT HEAD/BRAIN WO CON, 04/12/2019, 19:45. FINDINGS: Image quality: Excellent. Bones and teeth: Orbital holly are intact. Sinus holly show no fracture or deformity. Nasal bones and septum are intact. Visualized portions of the mandible demonstrate no fractures or subluxation. Zygomatic arches are intact. Pterygoid plates are intact. Visualized portions of the skull base and auditory canals are intact. Sinuses: Paranasal sinuses are aerated, without fluid levels, mucosal thickening, or mucoceles. Mastoid air cells are aerated. Soft tissues: Left facial soft tissue edema. No enlarged lymph nodes. No soft tissue lacerations or debris. Vascular: Visualized vascular structures appear normal in the absence of contrast. Bony vascular foramina and canals are intact. IMPRESSION: 1. Left facial soft tissue edema. No visualized underlying fracture. Dictated by: Autumn Robledo M.D. on 04/12/2019 at 20:03 Approved by: Autumn Robledo M.D. on 04/12/2019 at 20:05
--- NOTE | 2019-04-12 19:34 | DI.CT.S_ITS ---
PROCEDURE: CT HEAD/BRAIN WO CON INDICATIONS: glf, confused TECHNIQUE: Noncontrast 4.5 mm thick angled axial sections acquired from the foramen magnum to the vertex, with coronal and sagittal reformats. For radiation dose reduction, the following was used: automated exposure control, adjustment of mA and/or kV according to patient size. COMPARISON: [facility], CT, CT HEAD/BRAIN WO CON, 08/02/2018, 14:21. FINDINGS: Image quality: Excellent. CSF spaces: Basal cisterns are patent. No extra-axial fluid collections. The ventricles are symmetric in size and shape. Brain: No intracranial bleeds or masses. There is cerebral volume loss for age, with resultant ventricular and sulcal prominence. There are periventricular and deep white matter chronic small vessel ischemic changes. There is intracranial internal carotid artery atherosclerosis. Old ischemia is noted within the right basal ganglia and right thalamus. Skull and face: Calvarium and visualized facial bones appear intact, without suspicious lesions. Left facial scalp hematoma. Sinuses: Visualized sinuses and mastoids are clear. IMPRESSION: 1. No acute intracranial process. 2. Moderate atrophy and chronic microvascular ischemic changes, greater than expected for patient's stated age. 3. Left facial scalp hematoma. Dictated by: Autumn Robledo M.D. on 04/12/2019 at 20:00 Approved by: Autumn Robledo M.D. on 04/12/2019 at 20:02
[2019-04-12 19:41] LABS: Add Manual Diff / Slide Review NO; Basophils Absolute Auto 0 /uL (0-100); Basophils Percent Auto 0.4 % (0-2); Eosinophils Absolute Auto 100 /uL (0-450); Eosinophils Percent Auto 0.8 % (2-4); Hematocrit 41.6 % (36-46); Hemoglobin 13.9 g/dL (12.0-16.0); Lymphocytes Absolute Auto 2000 /uL (1100-4500); Lymphocytes Percent Auto 24.3 % (25-40); Mean Corpuscular HGB Conc 33.3 % (30-36); Mean Corpuscular Hemoglobin 30.9 PG (26-34); Mean Corpuscular Volume 92.8 fL (80-100); Monocytes Absolute Auto 700 /uL (0-900); Monocytes Percent Auto 8.9 % (3-14); Neutrophils Absolute Auto 5400 /uL (1500-7000); Neutrophils Percent Auto 65.6 % (50-75); Platelet Count 207 X10^3/uL (150-400); Red Blood Cell Count 4.48 X10^6/uL (4.0-5.2); Red Cell Distribution Width 15.8 % (11.6-14.8); White Blood Cell Count 8.2 X10^3/uL (4.5-11.0)
[2019-04-12 19:42] LABS: INR 0.9 (0.9-1.3); Prothrombin Time 10.1 SECONDS (10.1-12.7)
[2019-04-12 19:45] LABS: Alanine Aminotransferase 102 IU/L (<35); Albumin Globulin Ratio 1.1 (1.0-2.8); Alkaline Phosphatase 142 U/L (38-126); Aspartate Aminotransferase 78 IU/L (14-36); BUN Creatinine Ratio 17.8 (6-22); Blood Urea Nitrogen 16 mg/dL (7-17); Calcium 9.5 mg/dL (8.4-10.2); Carbon Dioxide 26 mmol/L (22-32); Chloride 104 mmol/L (98-107); Creatine Kinase 107 U/L (30-135); Estimated Glomerular Filt Rate > 60.0 mL/min (>60); Globulin 3.5 g/dL (1.7-4.1); Glucose 200 mg/dL (80-110); HEMOLYSIS 20 (0-50); Lipase 29 U/L (23-300); Potassium 3.3 mmol/L (3.4-5.1); Sodium 141 mmol/L (137-145); Total Protein 7.5 g/dL (6.3-8.2)
[2019-04-12 19:56] LABS: Troponin I < 0.012 ng/mL (0.01-0.034)
[2019-04-12 20:00] LABS: B Type Natriuretic Peptide 282 (<100); CKMB % Relative Index 1.5 % (1.5-5.0); Creatine Kinase MB 1.57 ng/mL (<2.37)
[2019-04-12 20:09] LABS: Magnesium 1.9 mg/dL (1.6-2.3)
--- NOTE | 2019-04-12 20:16 | ED_ITS ---
HPI - Fall <Shwetha Garcia CAREER TECHNICAL EDUCATION INSTRUCTOR-BC - Last Filed: 04/12/19 21:27> General Chief Complaint: Fall Stated Complaint: fall, hit head, does not feel well Time Seen by Provider: 04/12/19 19:24 Source: patient and family Mode of arrival: Wheelchair Limitations: no limitations History of Present Illness HPI Narrative: The patient is a 64-year-old female current smoker with history of stroke, diabetes, DKA, who presents with a chief complaint of a syncopal episode. She states she was walking to the bathroom, and her significant other heard her fall. He states that she was locked in the bathroom for 5 minutes or so and he was unable to open the door because she was either passed out, or too weak to get up. She denies remembering the incident states she does not know she felt dizzy or anything beforehand she states she feels chronically dizzy since her most recent stroke. She denies any neck pain she complains of pain around her left eye where she states she either hit the floor [id number]. Denies any visual deficit. Of note the patient did take her Remeron for sleep prior to this incident. She denies any fevers chest pain shortness of breath nausea vomiting diarrhea dysuria. The patient does have an DESIREE her for indicating multiple visits for alcohol abuse, chronic pancreatitis, DKA etc Related Data Home Medications Medication Instructions Recorded Confirmed Marijuana 1 ea INHALATION DAILY 10/08/17 02/20/19 Novolog Flexpen U-100 Insulin 1 dose SUBCUT QIDACHS 10/08/17 02/20/19 acetaminophen 325 mg PO Q4HP PRN 10/08/17 02/20/19 atorvastatin 40 mg PO QPM 10/08/17 02/20/19 cholecalciferol (vitamin D3) 3,000 unit PO DAILY 10/08/17 02/20/19 [Vitamin D3] lisinopril 40 mg PO DAILY 10/30/17 02/20/19 pen needle, diabetic 10/30/17 02/20/19 amlodipine 10 mg PO DAILY 02/19/18 02/20/19 mirtazapine 7.5 mg PO BEDTIME 02/19/18 02/20/19 aspirin 325 mg PO DAILY 07/25/18 02/20/19 vitamin B complex [B 1 tab PO DAILY 08/02/18 02/20/19 Complex-Vitamin B12] insulin glargine [Basaglar KwikPen 10 unit SUBCUT BID 02/20/19 02/20/19 U-100 Insulin] Allergies Allergy/AdvReac Type Severity Reaction Status Date / Time Iodine and Iodide Containing Allergy Unknown Verified 04/12/19 19:14 Produc [IODINE AND IODIDE CONTAINING PRODUC] latex [LATEX] Allergy Unknown Verified 04/12/19 19:14 Review of Systems <BEATA Mcdonnell - Last Filed: 04/12/19 21:27> Review of Systems Narrative: GENERAL: Denies chills, fatigue, malaise, fever, sweats. HEENT: Denies sinus pain, ear pain, sore throat, difficulty swallowing, dizziness. RESPIRATORY: Denies dyspnea, cough, wheezing, hemoptysis, sputum. CARDIOVASCULAR: Denies chest pain, palpitations, orthopnea, edema, GASTROINTESTINAL: Denies nausea, vomiting, abdominal pain, diarrhea, constipation, melena. : Denies dysuria, frequency, incontinence, hematuria, urinary retention. MUSCULOSKELETAL: denies weakness, joint pain, or bony pain SKIN: See HPI NEUROLOGIC: See HPI PSYCHIATRIC: No concerning psychosocial issues. 12 point review of systems is negative except for those stated above Patient History <BEATA Mcdonnell - Last Filed: 04/12/19 21:27> Medical History CVA (cerebral vascular accident) (Acute) Diabetes (Acute) Gallbladder disease (Chronic) Hypertension (Acute) Surgical History No pertinent past surgical history (Acute) Social History household members: spouse Smoking Status: Current every day smoker alcohol intake: current tobacco type: cigarettes alcohol intake frequency: holidays/special occasions only Alcohol type: hard liquor Substance Use Type: marijuana Exam <BEATA Mcdonnell - Last Filed: 04/12/19 21:27> Narrative Exam Narrative: GENERAL: This is a well-nourished, well-developed patient, no acute distress HEAD: Ecchymosis noted left lateral orbit. Pain patient. No pain to palpation rest of facial bones. EYES: Pupils equal round and reactive. Extraocular motions intact. No scleral icterus. No injection or drainage. ENT: Nose without bleeding, purulent drainage or septal hematoma. Throat without erythema, tonsillar hypertrophy or exudate. Uvula midline. Airway patent. NECK: Trachea midline. No JVD or lymphadenopathy. Supple, nontender, no men ingeal signs. CARDIOVASCULAR: Regular rate and rhythm RESPIRATORY: Coarse bilaterally to auscultation. Breath sounds equal bilaterally. No wheezes, rales, or rhonchi. No cough. No increased respiratory effort. No accessory muscle use GASTROINTESTINAL: Abdomen soft, non-tender, nondistended. No hepato- splenomegaly, or palpable masses. No guarding. EXTREMITIES: No clubbing, cyanosis, or edema. No joint tenderness, effusion, or edema noted. No pain to palpation of bilateral hips. Strength is equal upper and lower extremities bilaterally. No pain to palpation left hand by contusion. BACK: Nontender without deformity or crepitance. No flank tenderness. No pain to CT or L-spine palpation. NEURO: AOx3. Strength is equal upper and lower extremities bilaterally. Stable gait. No gross cranial nerve deficit. SKIN: No rash or erythema on visible skin. Ecchymosis noted to left lateral orb it. Contusion noted distal to left pointer finger, skin is intact Initial Vital Signs Initial Vital Signs: Vital Signs Temperature 98.3 F 04/12/19 19:10 Pulse Rate 80 04/12/19 19:10 Respiratory Rate 14 04/12/19 19:10 Blood Pressure 178/97 H 04/12/19 19:10 Pulse Oximetry 98 04/12/19 19:10 <Brown Gonsales DO - Last Filed: 04/12/19 21:47> Initial Vital Signs Initial Vital Signs: Vital Signs Temperature 98.3 F 04/12/19 19:10 Pulse Rate 80 04/12/19 19:10 Respiratory Rate 14 04/12/19 19:10 Blood Pressure 178/97 H 04/12/19 19:10 Pulse Oximetry 98 04/12/19 19:10 Course <OSKAR Mcdonnell-BC - Last Filed: 04/12/19 21:27> Orders Ordered: ED Orders 04/12/19 19:13 B Type Natriuretic Peptide Stat Complete Blood Count AUTO DIFF Stat Comprehensive Metabolic Panel Stat Ethanol (ETOH) Stat Lipase Stat Magnesium Stat Prothrombin Time INR Stat Troponin & CK Cardiac Panel Stat 04/12/19 19:31 XR chest 1V Stat 04/12/19 19:34 CT facial bones wo con Stat CT head/brain wo con Stat 04/12/19 20:40 Urinalysis Sreen (Dip Only) Stat Urine Drug Screen, Rapid Stat Urine Microscopic Stat Discontinued Medications Sodium Chloride (Normal Saline 0.9%) 500 mls @ 1,000 mls/hr IV BOLUS ONE Stop: 04/12/19 20:45 Last Infusion: 04/12/19 21:15 Dose: 0 mls/hr Documented by: Admin: 04/12/19 20:32 Dose: 1,000 mls/hr Documented by: DAVIDA Potassium Chloride (Potassium Chloride) 40 meq PO NOW ONE Stop: 04/12/19 21:01 Last Admin: 04/12/19 21:11 Dose: 40 meq Documented by: ADVIDA Vital Signs Vital signs: Vital Signs - 8 hr 04/12/19 19:10 04/12/19 20:32 04/12/19 21:28 Temperature 98.3 F Pulse Rate 80 74 76 Respiratory Rate 14 16 19 Blood Pressure 178/97 H Blood Pressure [Right Arm] 155/85 H 169/86 H Pulse Oximetry 98 97 97 04/12/19 21:46 Temperature Pulse Rate 96 H Respiratory Rate 16 Blood Pressure 159/91 H Blood Pressure [Right Arm] Pulse Oximetry 97 <Brown Gonsales, DO - Last Filed: 04/12/19 21:47> Orders Ordered: ED Orders 04/12/19 19:13 B Type Natriuretic Peptide Stat Complete Blood Count AUTO DIFF Stat Comprehensive Metabolic Panel Stat Ethanol (ETOH) Stat Lipase Stat Magnesium Stat Prothrombin Time INR Stat Troponin & CK Cardiac Panel Stat 04/12/19 19:31 XR chest 1V Stat 04/12/19 19:34 CT facial bones wo con Stat CT head/brain wo con Stat 04/12/19 20:40 Urinalysis Sreen (Dip Only) Stat Urine Drug Screen, Rapid Stat Urine Microscopic Stat Discontinued Medications Sodium Chloride (Normal Saline 0.9%) 500 mls @ 1,000 mls/hr IV BOLUS ONE Stop: 04/12/19 20:45 Last Infusion: 04/12/19 21:15 Dose: 0 mls/hr Documented by: Admin: 04/12/19 20:32 Dose: 1,000 mls/hr Documented by: DAVIDA Potassium Chloride (Potassium Chloride) 40 meq PO NOW ONE Stop: 04/12/19 21:01 Last Admin: 04/12/19 21:11 Dose: 40 meq Documented by: DAVIDA Vital Signs Vital signs: Vital Signs - 8 hr 04/12/19 19:10 04/12/19 20:32 04/12/19 21:28 Temperature 98.3 F Pulse Rate 80 74 76 Respiratory Rate 14 16 19 Blood Pressure 178/97 H Blood Pressure [Right Arm] 155/85 H 169/86 H Pulse Oximetry 98 97 97 04/12/19 21:46 Temperature Pulse Rate 96 H Respiratory Rate 16 Blood Pressure 159/91 H Blood Pressure [Right Arm] Pulse Oximetry 97 MDM - Fall <OSKAR Mcdonnell-BC - Last Filed: 04/12/19 21:27> Lab Data Result diagrams: 04/12/19 19:13 04/12/19 19:13 Labs: Lab Results 04/12/19 04/12/19 04/12/19 Range/Units 19:13 19:13 19:13 WBC 8.2 (4.5-11.0) X10^3/uL RBC 4.48 (4.0-5.2) X10^6/uL Hgb 13.9 (12.0-16.0) g/dL Hct 41.6 (36-46) % MCV 92.8 (80-100) fL MCH 30.9 (26-34) PG MCHC 33.3 (30-36) % RDW 15.8 H (11.6-14.8) % Plt Count 207 (150-400) X10^3/uL Neut % (Auto) 65.6 (50-75) % Lymph % (Auto) 24.3 L (25-40) % [place] % (Auto) 8.9 (3-14) % Eos % (Auto) 0.8 L (2-4) % Baso % (Auto) 0.4 (0-2) % Neut # (Auto) 5400 (5967-9604) /uL Lymph # (Auto) 2000 (7868-8415) /uL [place] # (Auto) 700 (0-900) /uL Eos # (Auto) 100 (0-450) /uL Baso # (Auto) 0 (0-100) /uL PT 10.1 (10.1-12.7) SECONDS INR 0.9 (0.9-1.3) Sodium 141 (137-145) mmol/L Potassium 3.3 L (3.4-5.1) mmol/L Chloride 104 (98-107) mmol/L Carbon Dioxide 26 (22-32) mmol/L BUN 16 (7-17) mg/dL Creatinine 0.90 (0.52-1.04) mg/dL Estimated GFR > 60.0 (>60) mL/min BUN/Creatinine Ratio 17.8 (6-22) Glucose 200 H (80-110) mg/dL Calcium 9.5 (8.4-10.2) mg/dL Magnesium (1.6-2.3) mg/dL Total Bilirubin 1.0 (0.2-1.3) mg/dL AST 78 H (14-36) IU/L ALT 102 H (<35) IU/L Alkaline Phosphatase 142 H (38-126) U/L Total Creatine Kinase 107 (30-135) U/L CK-MB (CK-2) 1.57 (<2.37) ng/mL CK-MB (CK-2) Rel Index 1.5 (1.5-5.0) % Troponin I < 0.012 (0.01-0.034) ng/mL B-Natriuretic Peptide (<100) Total Protein 7.5 (6.3-8.2) g/dL Albumin 4.0 (3.5-5.0) g/dL Globulin 3.5 (1.7-4.1) g/dL Albumin/Globulin Ratio 1.1 (1.0-2.8) Lipase (23-300) U/L Urine Color Urine Appearance Urine pH (4.5-8.0) Ur Specific [place] (1.000-1.035) Urine Protein (Negative) Urine Glucose (UA) (Negative) g/dL Urine Ketones (NEGATIVE) Urine Occult Blood (Negative) Urine Nitrate (Negative) Urine Bilirubin (NEGATIVE) Urine Urobilinogen (0.2) E.U./dL Ur Leukocyte Esterase (NEGATIVE) Urine RBC (0-5/HPF) Urine WBC (0-5/HPF) Ur Squamous Epith Cells (0-5/HPF) Urine Bacteria (None) Ur Culture Indicated? U Morph 300 ng/mL cutoff (Negative) Ur Oxycodone Screen (Negative) Urine Methadone Screen (Negative) Ur Barbiturates Screen (Negative) U Tricyclic Antidepress (Negative) Ur Phencyclidine Scrn (Negative) Ur Amphetamines Screen (Negative) U Methamphetamines Scrn (Negative) Ur MDMA Scrn (Ecstasy) (Negative) U Benzodiazepines Scrn (Negative) Urine Cocaine Screen (Negative) U Marijuana (THC) Screen (Negative) Ethyl Alcohol ( - 10) mg/dL 04/12/19 04/12/19 04/12/19 Range/Units 19:13 19:13 19:13 WBC (4.5-11.0) X10^3/uL RBC (4.0-5.2) X10^6/uL Hgb (12.0-16.0) g/dL Hct (36-46) % MCV (80-100) fL MCH (26-34) PG MCHC (30-36) % RDW (11.6-14.8) % Plt Count (150-400) X10^3/uL Neut % (Auto) (50-75) % Lymph % (Auto) (25-40) % [place] % (Auto) (3-14) % Eos % (Auto) (2-4) % Baso % (Auto) (0-2) % Neut # (Auto) (2639-9847) /uL Lymph # (Auto) (6828-1164) /uL [place] # (Auto) (0-900) /uL Eos # (Auto) (0-450) /uL Baso # (Auto) (0-100) /uL PT (10.1-12.7) SECONDS INR (0.9-1.3) Sodium (137-145) mmol/L Potassium (3.4-5.1) mmol/L Chloride (98-107) mmol/L Carbon Dioxide (22-32) mmol/L BUN (7-17) mg/dL Creatinine (0.52-1.04) mg/dL Estimated GFR (>60) mL/min BUN/Creatinine Ratio (6-22) Glucose (80-110) mg/dL Calcium (8.4-10.2) mg/dL Magnesium 1.9 (1.6-2.3) mg/dL Total Bilirubin (0.2-1.3) mg/dL AST (14-36) IU/L ALT (<35) IU/L Alkaline Phosphatase (38-126) U/L Total Creatine Kinase (30-135) U/L CK-MB (CK-2) (<2.37) ng/mL CK-MB (CK-2) Rel Index (1.5-5.0) % Troponin I (0.01-0.034) ng/mL B-Natriuretic Peptide 282 H (<100) Total Protein (6.3-8.2) g/dL Albumin (3.5-5.0) g/dL Globulin (1.7-4.1) g/dL Albumin/Globulin Ratio (1.0-2.8) Lipase 29 (23-300) U/L Urine Color Urine Appearance Urine pH (4.5-8.0) Ur Specific [place] (1.000-1.035) Urine Protein (Negative) Urine Glucose (UA) (Negative) g/dL Urine Ketones (NEGATIVE) Urine Occult Blood (Negative) Urine Nitrate (Negative) Urine Bilirubin (NEGATIVE) Urine Urobilinogen (0.2) E.U./dL Ur Leukocyte Esterase (NEGATIVE) Urine RBC (0-5/HPF) Urine WBC (0-5/HPF) Ur Squamous Epith Cells (0-5/HPF) Urine Bacteria (None) Ur Culture Indicated? U Morph 300 ng/mL cutoff (Negative) Ur Oxycodone Screen (Negative) Urine Methadone Screen (Negative) Ur Barbiturates Screen (Negative) U Tricyclic Antidepress (Negative) Ur Phencyclidine Scrn (Negative) Ur Amphetamines Screen (Negative) U Methamphetamines Scrn (Negative) Ur MDMA Scrn (Ecstasy) (Negative) U Benzodiazepines Scrn (Negative) Urine Cocaine Screen (Negative) U Marijuana (THC) Screen (Negative) Ethyl Alcohol ( - 10) mg/dL 04/12/19 04/12/19 04/12/19 Range/Units 19:13 20:40 20:40 WBC (4.5-11.0) X10^3/uL RBC (4.0-5.2) X10^6/uL Hgb (12.0-16.0) g/dL Hct (36-46) % MCV (80-100) fL MCH (26-34) PG MCHC (30-36) % RDW (11.6-14.8) % Plt Count (150-400) X10^3/uL Neut % (Auto) (50-75) % Lymph % (Auto) (25-40) % [place] % (Auto) (3-14) % Eos % (Auto) (2-4) % Baso % (Auto) (0-2) % Neut # (Auto) (8069-9119) /uL Lymph # (Auto) (1215-5403) /uL [place] # (Auto) (0-900) /uL Eos # (Auto) (0-450) /uL Baso # (Auto) (0-100) /uL PT (10.1-12.7) SECONDS INR (0.9-1.3) Sodium (137-145) mmol/L Potassium (3.4-5.1) mmol/L Chloride (98-107) mmol/L Carbon Dioxide (22-32) mmol/L BUN (7-17) mg/dL Creatinine (0.52-1.04) mg/dL Estimated GFR (>60) mL/min BUN/Creatinine Ratio (6-22) Glucose (80-110) mg/dL Calcium (8.4-10.2) mg/dL Magnesium (1.6-2.3) mg/dL Total Bilirubin (0.2-1.3) mg/dL AST (14-36) IU/L ALT (<35) IU/L Alkaline Phosphatase (38-126) U/L Total Creatine Kinase (30-135) U/L CK-MB (CK-2) (<2.37) ng/mL CK-MB (CK-2) Rel Index (1.5-5.0) % Troponin I (0.01-0.034) ng/mL B-Natriuretic Peptide (<100) Total Protein (6.3-8.2) g/dL Albumin (3.5-5.0) g/dL Globulin (1.7-4.1) g/dL Albumin/Globulin Ratio (1.0-2.8) Lipase (23-300) U/L Urine Color Yellow Urine Appearance Clear Urine pH 5.5 (4.5-8.0) Ur Specific [place] 1.010 (1.000-1.035) Urine Protein 3+ H (Negative) Urine Glucose (UA) Trace H (Negative) g/dL Urine Ketones Negative (NEGATIVE) Urine Occult Blood 3+ H (Negative) Urine Nitrate Negative (Negative) Urine Bilirubin Negative (NEGATIVE) Urine Urobilinogen 0.2 (0.2) E.U./dL Ur Leukocyte Esterase Negative (NEGATIVE) Urine RBC 1-5/hpf (0-5/HPF) Urine WBC 0-1/hpf (0-5/HPF) Ur Squamous Epith Cells 0-1 /hpf (0-5/HPF) Urine Bacteria None seen (None) Ur Culture Indicated? Cult not indicated U Morph 300 ng/mL cutoff Negative (Negative) Ur Oxycodone Screen Negative (Negative) Urine Methadone Screen Negative (Negative) Ur Barbiturates Screen Negative (Negative) U Tricyclic Antidepress Negative (Negative) Ur Phencyclidine Scrn Negative (Negative) Ur Amphetamines Screen Negative (Negative) U Methamphetamines Scrn Negative (Negative) Ur MDMA Scrn (Ecstasy) Negative (Negative) U Benzodiazepines Scrn Negative (Negative) Urine Cocaine Screen Negative (Negative) U Marijuana (THC) Screen Positive H (Negative) Ethyl Alcohol 117 H ( - 10) mg/dL Point of Care Testing Glucose POC 173 Urine Dip Bedside Urine Glucose 100 mg/dl Bedside Urine Bilirubin - Negative Bedside Urine Ketone - Negative Urine Specific [place] 1.015 Bedside Urine Occult Blood ++ Bedside Urine pH 6.0 Bedside Urine Protein +++ 300 Bedside Urine Urobilinogen - Negative Bedside Urine Nitrite - Negative Bedside Urine Leukocytes - Negative Esterase Imaging Data Chest x-ray: Radiologist's impression: [address] [address] XRay Report Signed Patient: Kristine Moon RMR#: [id number] : [id number]:[id number] Age/Sex: 64 / FDate of Service: 04/12/19 Loc: ED Accession Number: [id number] Procedure: XR chest 1V Ordering Provider: Brown Gonsales D.O. PROCEDURE: XR CHEST 1V INDICATIONS: chest pain TECHNIQUE: One view of the chest was acquired. COMPARISON: [facility], JOSÉ, XR CHEST 1V, 07/25/2018, 8:07. FINDINGS: Surgical changes and devices: ORIF of the left humerus is present. Lungs and pleura: Lungs are clear. No pleural effusions or pneumothorax. Mediastinum: Mediastinal contours appear normal. Heart size is normal. Bones and chest wall: No suspicious bony lesions. Overlying soft tissues appear unremarkable. IMPRESSION: No acute pulmonary process. Dictated by: Autumn Robledo M.D. on 04/12/2019 at 19:45 Approved by: Autumn Robledo M.D. on 04/12/2019 at 19:[address]: Radiologist's impression: Kristine Moon 64 F 1955 [place] [address] CT Scan Report Signed Patient: Kristine Moon RMR#: [id number] : 1955cct:[id number] Age/Sex: 64 / FDate of Service: 04/12/19 Loc: ED Accession Number: [id number] Procedure: CT facial bones wo con Ordering Provider: Shwetha Garcia- PROCEDURE: CT FACIAL BONES WO CON INDICATIONS: fall with trauma left orbit, memory issues TECHNIQUE: Noncontrast 2.5 mm thick axial images acquired from the mandible through the frontal sinuses, with coronal and sagittal reformatting. For radiation dose reduction, the following was used: automated exposure control, adjustment of mA and/or kV according to patient size. COMPARISON: [facility], CT, CT HEAD/BRAIN WO CON, 04/12/2019, 19:45. FINDINGS: Image quality: Excellent. Bones and teeth: Orbital holly are intact. Sinus holly show no fracture or deformity. Nasal bones and septum are intact. Visualized portions of the mandible demonstrate no fractures or subluxation. Zygomatic arches are intact. Pterygoid plates are intact. Visualized portions of the skull base and auditory canals are intact. Sinuses: Paranasal sinuses are aerated, without fluid levels, mucosal thickening, or mucoceles. Mastoid air cells are aerated. Soft tissues: Left facial soft tissue edema. No enlarged lymph nodes. No soft tissue lacerations or debris. Vascular: Visualized vascular structures appear normal in the absence of contrast. Bony vascular foramina and canals are intact. IMPRESSION: 1. Left facial soft tissue edema. No visualized underlying fracture. Dictated by: Autumn Robledo M.D. on 04/12/2019 at 20:03 Approved by: Autumn Robledo M.D. on 04/12/2019 at 20:05 CT scan - head: Radiologist's impression: [address] [address] [address] Scan Report Signed Patient: Kristine Moon RMR#: [id number] : [id number]:[id number] Age/Sex: 64 / FDate of Service: 04/12/19 Loc: ED Accession Number: [id number] Procedure: CT head/brain wo con Ordering Provider: Shwetha Garcia PROCEDURE: CT HEAD/BRAIN WO CON INDICATIONS: glf, confused TECHNIQUE: Noncontrast 4.5 mm thick angled axial sections acquired from the foramen magnum to the vertex, with coronal and sagittal reformats. For radiation dose reduction, the following was used: automated exposure control, adjustment of mA and/or kV according to patient size. COMPARISON: [facility], CT, CT HEAD/BRAIN WO CON, 08/02/2018, 14:21. FINDINGS: Image quality: Excellent. CSF spaces: Basal cisterns are patent. No extra-axial fluid collections. The ventricles are symmetric in size and shape. Brain: No intracranial bleeds or masses. There is cerebral volume loss for age, with resultant ventricular and sulcal prominence. There are periventricular and deep white matter chronic small vessel ischemic changes. There is intracranial internal carotid artery atherosclerosis. Old ischemia is noted within the right basal ganglia and right thalamus. Skull and face: Calvarium and visualized facial bones appear intact, without suspicious lesions. Left facial scalp hematoma. Sinuses: Visualized sinuses and mastoids are clear. IMPRESSION: 1. No acute intracranial process. 2. Moderate atrophy and chronic microvascular ischemic changes, greater than expected for patient's stated age. 3. Left facial scalp hematoma. Dictated by: Autumn Robledo M.D. on 04/12/2019 at 20:00 Approved by: Autumn Robledo M.D. on 04/12/2019 at 20:02 [facility] Narrative Medical decision making narrative: The patient is a 64-year-old female with extensive medical history presents after syncopal episode in the bathroom. She presents with ecchymosis to her face, and does not remember the event. Thus imaging was obtained of her head and face which came back with no acute findings or indications of a head bleed. EKG is normal sinus rhythm, troponin is negative. Overall her lab work is benign, worse passing a slightly low so was replaced in the emergency department. It is concerning that the patient is intoxicated at this point, has marijuana in her system and took her Remeron tonight. I believe that her syncopal episode could likely be related to combining alcohol and Remeron. I discussed at length that this is very dangerous, that she should not drink alcohol when taking sleep medication. Also discussed the being intoxicated increases or chance of falling. The patient was able to ambulate around the emergency department with no complication. <Brown Gonsales, DO - Last Filed: 04/12/19 21:47> Lab Data Labs: Lab Results 04/12/19 04/12/19 04/12/19 Range/Units 19:13 19:13 19:13 WBC 8.2 (4.5-11.0) X10^3/uL RBC 4.48 (4.0-5.2) X10^6/uL Hgb 13.9 (12.0-16.0) g/dL Hct 41.6 (36-46) % MCV 92.8 (80-100) fL MCH 30.9 (26-34) PG MCHC 33.3 (30-36) % RDW 15.8 H (11.6-14.8) % Plt Count 207 (150-400) X10^3/uL Neut % (Auto) 65.6 (50-75) % Lymph % (Auto) 24.3 L (25-40) % [place] % (Auto) 8.9 (3-14) % Eos % (Auto) 0.8 L (2-4) % Baso % (Auto) 0.4 (0-2) % Neut # (Auto) 5400 (7425-7435) /uL Lymph # (Auto) 2000 (8395-5689) /uL [place] # (Auto) 700 (0-900) /uL Eos # (Auto) 100 (0-450) /uL Baso # (Auto) 0 (0-100) /uL PT 10.1 (10.1-12.7) SECONDS INR 0.9 (0.9-1.3) Sodium 141 (137-145) mmol/L Potassium 3.3 L (3.4-5.1) mmol/L Chloride 104 (98-107) mmol/L Carbon Dioxide 26 (22-32) mmol/L BUN 16 (7-17) mg/dL Creatinine 0.90 (0.52-1.04) mg/dL Estimated GFR > 60.0 (>60) mL/min BUN/Creatinine Ratio 17.8 (6-22) Glucose 200 H (80-110) mg/dL Calcium 9.5 (8.4-10.2) mg/dL Magnesium (1.6-2.3) mg/dL Total Bilirubin 1.0 (0.2-1.3) mg/dL AST 78 H (14-36) IU/L ALT 102 H (<35) IU/L Alkaline Phosphatase 142 H (38-126) U/L Total Creatine Kinase 107 (30-135) U/L CK-MB (CK-2) 1.57 (<2.37) ng/mL CK-MB (CK-2) Rel Index 1.5 (1.5-5.0) % Troponin I < 0.012 (0.01-0.034) ng/mL B-Natriuretic Peptide (<100) Total Protein 7.5 (6.3-8.2) g/dL Albumin 4.0 (3.5-5.0) g/dL Globulin 3.5 (1.7-4.1) g/dL Albumin/Globulin Ratio 1.1 (1.0-2.8) Lipase (23-300) U/L Urine Color Urine Appearance Urine pH (4.5-8.0) Ur Specific [place] (1.000-1.035) Urine Protein (Negative) Urine Glucose (UA) (Negative) g/dL Urine Ketones (NEGATIVE) Urine Occult Blood (Negative) Urine Nitrate (Negative) Urine Bilirubin (NEGATIVE) Urine Urobilinogen (0.2) E.U./dL Ur Leukocyte Esterase (NEGATIVE) Urine RBC (0-5/HPF) Urine WBC (0-5/HPF) Ur Squamous Epith Cells (0-5/HPF) Urine Bacteria (None) Ur Culture Indicated? U Morph 300 ng/mL cutoff (Negative) Ur Oxycodone Screen (Negative) Urine Methadone Screen (Negative) Ur Barbiturates Screen (Negative) U Tricyclic Antidepress (Negative) Ur Phencyclidine Scrn (Negative) Ur Amphetamines Screen (Negative) U Methamphetamines Scrn (Negative) Ur MDMA Scrn (Ecstasy) (Negative) U Benzodiazepines Scrn (Negative) Urine Cocaine Screen (Negative) U Marijuana (THC) Screen (Negative) Ethyl Alcohol ( - 10) mg/dL 04/12/19 04/12/19 04/12/19 Range/Units 19:13 19:13 19:13 WBC (4.5-11.0) X10^3/uL RBC (4.0-5.2) X10^6/uL Hgb (12.0-16.0) g/dL Hct (36-46) % MCV (80-100) fL MCH (26-34) PG MCHC (30-36) % RDW (11.6-14.8) % Plt Count (150-400) X10^3/uL Neut % (Auto) (50-75) % Lymph % (Auto) (25-40) % [place] % (Auto) (3-14) % Eos % (Auto) (2-4) % Baso % (Auto) (0-2) % Neut # (Auto) (0787-0366) /uL Lymph # (Auto) (0691-4401) /uL [place] # (Auto) (0-900) /uL Eos # (Auto) (0-450) /uL Baso # (Auto) (0-100) /uL PT (10.1-12.7) SECONDS INR (0.9-1.3) Sodium (137-145) mmol/L Potassium (3.4-5.1) mmol/L Chloride (98-107) mmol/L Carbon Dioxide (22-32) mmol/L BUN (7-17) mg/dL Creatinine (0.52-1.04) mg/dL Estimated GFR (>60) mL/min BUN/Creatinine Ratio (6-22) Glucose (80-110) mg/dL Calcium (8.4-10.2) mg/dL Magnesium 1.9 (1.6-2.3) mg/dL Total Bilirubin (0.2-1.3) mg/dL AST (14-36) IU/L ALT (<35) IU/L Alkaline Phosphatase (38-126) U/L Total Creatine Kinase (30-135) U/L CK-MB (CK-2) (<2.37) ng/mL CK-MB (CK-2) Rel Index (1.5-5.0) % Troponin I (0.01-0.034) ng/mL B-Natriuretic Peptide 282 H (<100) Total Protein (6.3-8.2) g/dL Albumin (3.5-5.0) g/dL Globulin (1.7-4.1) g/dL Albumin/Globulin Ratio (1.0-2.8) Lipase 29 (23-300) U/L Urine Color Urine Appearance Urine pH (4.5-8.0) Ur Specific [place] (1.000-1.035) Urine Protein (Negative) Urine Glucose (UA) (Negative) g/dL Urine Ketones (NEGATIVE) Urine Occult Blood (Negative) Urine Nitrate (Negative) Urine Bilirubin (NEGATIVE) Urine Urobilinogen (0.2) E.U./dL Ur Leukocyte Esterase (NEGATIVE) Urine RBC (0-5/HPF) Urine WBC (0-5/HPF) Ur Squamous Epith Cells (0-5/HPF) Urine Bacteria (None) Ur Culture Indicated? U Morph 300 ng/mL cutoff (Negative) Ur Oxycodone Screen (Negative) Urine Methadone Screen (Negative) Ur Barbiturates Screen (Negative) U Tricyclic Antidepress (Negative) Ur Phencyclidine Scrn (Negative) Ur Amphetamines Screen (Negative) U Methamphetamines Scrn (Negative) Ur MDMA Scrn (Ecstasy) (Negative) U Benzodiazepines Scrn (Negative) Urine Cocaine Screen (Negative) U Marijuana (THC) Screen (Negative) Ethyl Alcohol ( - 10) mg/dL 04/12/19 04/12/19 04/12/19 Range/Units 19:13 20:40 20:40 WBC (4.5-11.0) X10^3/uL RBC (4.0-5.2) X10^6/uL Hgb (12.0-16.0) g/dL Hct (36-46) % MCV (80-100) fL MCH (26-34) PG MCHC (30-36) % RDW (11.6-14.8) % Plt Count (150-400) X10^3/uL Neut % (Auto) (50-75) % Lymph % (Auto) (25-40) % [place] % (Auto) (3-14) % Eos % (Auto) (2-4) % Baso % (Auto) (0-2) % Neut # (Auto) (6884-0290) /uL Lymph # (Auto) (3903-5614) /uL [place] # (Auto) (0-900) /uL Eos # (Auto) (0-450) /uL Baso # (Auto) (0-100) /uL PT (10.1-12.7) SECONDS INR (0.9-1.3) Sodium (137-145) mmol/L Potassium (3.4-5.1) mmol/L Chloride (98-107) mmol/L Carbon Dioxide (22-32) mmol/L BUN (7-17) mg/dL Creatinine (0.52-1.04) mg/dL Estimated GFR (>60) mL/min BUN/Creatinine Ratio (6-22) Glucose (80-110) mg/dL Calcium (8.4-10.2) mg/dL Magnesium (1.6-2.3) mg/dL Total Bilirubin (0.2-1.3) mg/dL AST (14-36) IU/L ALT (<35) IU/L Alkaline Phosphatase (38-126) U/L Total Creatine Kinase (30-135) U/L CK-MB (CK-2) (<2.37) ng/mL CK-MB (CK-2) Rel Index (1.5-5.0) % Troponin I (0.01-0.034) ng/mL B-Natriuretic Peptide (<100) Total Protein (6.3-8.2) g/dL Albumin (3.5-5.0) g/dL Globulin (1.7-4.1) g/dL Albumin/Globulin Ratio (1.0-2.8) Lipase (23-300) U/L Urine Color Yellow Urine Appearance Clear Urine pH 5.5 (4.5-8.0) Ur Specific [place] 1.010 (1.000-1.035) Urine Protein 3+ H (Negative) Urine Glucose (UA) Trace H (Negative) g/dL Urine Ketones Negative (NEGATIVE) Urine Occult Blood 3+ H (Negative) Urine Nitrate Negative (Negative) Urine Bilirubin Negative (NEGATIVE) Urine Urobilinogen 0.2 (0.2) E.U./dL Ur Leukocyte Esterase Negative (NEGATIVE) Urine RBC 1-5/hpf (0-5/HPF) Urine WBC 0-1/hpf (0-5/HPF) Ur Squamous Epith Cells 0-1 /hpf (0-5/HPF) Urine Bacteria None seen (None) Ur Culture Indicated? Cult not indicated U Morph 300 ng/mL cutoff Negative (Negative) Ur Oxycodone Screen Negative (Negative) Urine Methadone Screen Negative (Negative) Ur Barbiturates Screen Negative (Negative) U Tricyclic Antidepress Negative (Negative) Ur Phencyclidine Scrn Negative (Negative) Ur Amphetamines Screen Negative (Negative) U Methamphetamines Scrn Negative (Negative) Ur MDMA Scrn (Ecstasy) Negative (Negative) U Benzodiazepines Scrn Negative (Negative) Urine Cocaine Screen Negative (Negative) U Marijuana (THC) Screen Positive H (Negative) Ethyl Alcohol 117 H ( - 10) mg/dL Point of Care Testing Glucose POC 173 Urine Dip Bedside Urine Glucose 100 mg/dl Bedside Urine Bilirubin - Negative Bedside Urine Ketone - Negative Urine Specific [place] 1.015 Bedside Urine Occult Blood ++ Bedside Urine pH 6.0 Bedside Urine Protein +++ 300 Bedside Urine Urobilinogen - Negative Bedside Urine Nitrite - Negative Bedside Urine Leukocytes - Negative Esterase Discharge Plan Departure Patient Disposition: Home Clinical Impression: Fall from ground level Syncope Qualifiers: Syncope type: unspecified Qualified Code(s): R55 - Syncope and collapse Alcohol intoxication Qualifiers: Complication of substance-induced condition: uncomplicated Qualified Code(s): F10.920 - Alcohol use, unspecified with intoxication, uncomplicated Discharge Date/Time: 04/12/19 21:46 Instructions: DI for Syncope in Adults (Fainting), DI for Alcohol Abuse, How to Prevent Falls Activity Restrictions/Additional Instructions: Please follow up with primary care provider in the next few days All of your imaging and lab work came back grossly normal. Please come back to the emergency department for any acute concerns such as chest pain, shortness of breath Please do not combine alcohol in sleep medications. This is very dangerous. Please rest and use [id number] medications as needed and able. Prescriptions: No Action Marijuana 1 ea inhalation DAILY RF: 0 atorvastatin 40 mg tablet 40 mg PO QPM RF: 0 cholecalciferol (vitamin D3) [Vitamin D3] 1,000 unit Capsule 3,000 unit PO DAILY RF: 0 Novolog Flexpen U-100 Insulin 100 UNIT/1 ML insulin pen 1 dose subcut QIDACHS RF: 0 acetaminophen 325 MG tablet 325 mg PO Q4HP PRN (Reason: Pain, Mild) RF: 0 aspirin 325 mg Tablet 325 mg PO DAILY RF: 0 Basaglar KwikPen U-100 Insulin 100 unit/mL (3 mL) insulin pen 10 unit SUBCUT BID RF: 0 lisinopril 40 mg tablet 40 mg PO DAILY RF: 0 (DME) pen needle, diabetic 32 gauge x 5/32 needle RF: 0 amlodipine 10 mg tablet 10 mg PO DAILY RF: 0 mirtazapine 7.5 MG tablet 7.5 mg PO BEDTIME RF: 0 vitamin B complex [B Complex-Vitamin B12] Tablet 1 tab PO DAILY RF: 0 Referrals: Jyoti Streeter MD [Primary Care Provider] - <Brown Gonsales DO - Last Filed: 04/12/19 21:47> Sign Out Provider Sign Out Attestation: Dr Gonsales Co-Sign Statement: I was available for consultation during this patient's emergency department visit. This chart is signed by myself for administrative purposes only. I did not have direct contact with this patient during this visit. They were seen independently by the APC.
[2019-04-12 20:31] LABS: Ethanol (ETOH) 117 mg/dL
[2019-04-12 20:32] VITALS: BP 155/85; PULSE 74; RESP 16; O2SAT 97
[2019-04-12] MEDS: SODIUM CHLORIDE 0.9% 500 ML 1000 ML IV (20:32)
[2019-04-12 20:59] LABS: Appearance Urine UA CLEAR; Bilirubin Urine UA NEGATIVE (NEGATIVE); Color Urine UA YELLOW; Glucose Urine UA TRACE g/dL (Negative); Ketones Urine UA NEGATIVE (NEGATIVE); Leukocyte Esterase Urine UA NEGATIVE (NEGATIVE); Nitrite Urine UA NEGATIVE (Negative); Occult Blood Urine UA 3+ (Negative); Protein Urine UA 3+ (Negative); Urobilinogen Urine UA 0.2 E.U./dL (0.2)
[2019-04-12 21:00] LABS: pH Urine UA 5.5 (4.5-8.0)
[2019-04-12 21:01] LABS: Bacteria Urine None Seen
[2019-04-12 21:06] LABS: UR Morphine/Opiate cutoff 300 Negative (Negative); Ur Creatinine 20 (Normal); Ur Specific Gravity 1.015 (Normal); Urine Amphetamines Negative (Negative); Urine Barbiturates Negative (Negative); Urine Benzodiazepines Negative (Negative); Urine Cocaine Negative (Negative); Urine MDMA Negative (Negative); Urine Methadone Negative (Negative); Urine Methamphetamines Negative (Negative); Urine Phencyclidine Negative (Negative); Urine Tetrahydrocannabinol Positive (Negative); Urine Tricyclic Antidepressant Negative (Negative); Urine pH 5 (Normal)
[2019-04-12 21:07] LABS: Urine Oxycodone Negative (Negative)
--- NOTE | 2019-04-12 21:09 | PC.NURSE ---
SBA with walker. Walked down the hallway and back.
[2019-04-12] MEDS: POTASSIUM CHLORIDE 20 MEQ/15 ML UDC 40 MEQ PO (21:11)
[2019-04-12 21:28] VITALS: BP 169/86; PULSE 76; RESP 19; O2SAT 97
[2019-04-12 21:46] VITALS: BP 159/91; PULSE 96; RESP 16; O2SAT 97
[2019-04-12 21:46] LABS: Culture Indicated Urine Cult Not Indicated; RBC Urine 1-5/HPF (0-5/HPF); Squamous Epithelial Cell Urine 0-1 /HPF (0-5/HPF); WBC Urine 0-1/HPF (0-5/HPF)
== END 2019-04-12 21:46 | disposition home or self-care (01) ==
PROVIDERS: Emergency Provider Nurse Practitioner Family; PCP Family Medicine
DX: R55 Syncope and collapse (principal); F10.920 Alcohol use, unspecified with intoxication, uncomplicated; W18.30XA Fall on same level, unspecified, initial encounter; E11.9 Type 2 diabetes mellitus without complications; Z79.4 Long term (current) use of insulin; R07.9 Chest pain, unspecified; R41.0 Disorientation, unspecified; F12.99 Cannabis use, unspecified with unspecified cannabis-induced disorder; S09.90XA Unspecified injury of head, initial encounter; S05.92XA Unspecified injury of left eye and orbit, initial encounter
CPT/HCPCS: 36415; 70450; 70486; 71045; 80053; 80305; 80320; 81003; 81015; 82550; 82553; 82962; 83690; 83735; 83880; 84484; 85025; 85610; 93005; 96360; 99283; 99285

== ENCOUNTER 2019-04-19 11:27 | Emergency (ER) | payer MEDICARE, MEDICAID, SELFPAY ==
[2018-02-19 15:21] VITALS: BMI 18.2
--- NOTE | 2019-04-19 11:32 | DI.RAD.S_ITS ---
PROCEDURE: XR THORACIC SPINE 2V INDICATIONS: fall pain TECHNIQUE: 2 views of the thoracic spine were acquired. COMPARISON: [facility], CT, CT CHEST WITHOUT CONTRAST, 05/13/2018, 18:40. FINDINGS: Bones: No acute fractures or dislocations. Wedge compression deformities at T10 and T11 are unchanged from prior studies. No suspicious bony lesions. 12 pairs of ribs are noted, and appear intact where visualized. Soft tissues: No paravertebral stripe thickening. IMPRESSION: No acute radiographic findings. If there is continued pain, followup exam or additional imaging such as MRI or CT could be performed for further assessment. Dictated by: Marzena Starkey M.D. on 04/19/2019 at 10:53 Approved by: Marzena Starkey M.D. on 04/19/2019 at 10:58
--- NOTE | 2019-04-19 11:32 | DI.CT.S_ITS ---
PROCEDURE: CT HEAD/BRAIN WO CON INDICATIONS: syncope etoh TECHNIQUE: Noncontrast 4.5 mm thick angled axial sections acquired from the foramen magnum to the vertex, with coronal and sagittal reformats. For radiation dose reduction, the following was used: automated exposure control, adjustment of mA and/or kV according to patient size. COMPARISON: [facility], CT, CT HEAD/BRAIN WO CON, 04/12/2019, 19:45. FINDINGS: Image quality: Excellent. High density fluid layers along the posterior falx cerebri and the left aspect of the tentorium consistent with subdural bleed. A convex 0.9 x 2.8 cm high density fluid collection is present adjacent to the left temporal lobe anterior to the left lambdoid suture. It is unclear whether this is within the subdural or epidural space. There is mild sulcal effacement suggesting mild mass effect on the adjacent temporal lobe. No midline shift. No intraparenchymal hemorrhage. There is marked cerebral volume loss for age, with resultant ventricular and sulcal prominence. There are extensive periventricular and deep white matter chronic small vessel ischemic changes. There is intracranial internal carotid artery atherosclerosis. Calvarium and visualized facial bones appear intact, without suspicious lesions. Visualized sinuses and mastoids are clear. IMPRESSION: 1. Subdural hematoma as above. Convex high density fluid likely within the subdural space; however epidural hematoma cannot be excluded. The findings were discussed with Dr. Guerrero at 11:11 AM on 04/19/19. Dictated by: Marzena Starkey M.D. on 04/19/2019 at 11:08 Approved by: Marzena Starkey M.D. on 04/19/2019 at 11:15
--- NOTE | 2019-04-19 11:32 | DI.CT.S_ITS ---
PROCEDURE: CT CERVICAL SPINE WO CON INDICATIONS: pain syncope TECHNIQUE: Noncontrast 3 mm thick sections acquired from the skull base to the T4 level. Sagittal and coronal reformats were then constructed. For radiation dose reduction, the following was used: automated exposure control, adjustment of mA and/or kV according to patient size. COMPARISON: None. FINDINGS: Image quality: Excellent. Bones: No fractures or dislocations. Degenerative change is present in the lower cervical spine. Visualized superior ribs are intact. Soft tissues: Prevertebral soft tissues are normal in thickness. No paravertebral hematomas. No apical pneumothoraces. Scattered atheromatous calcifications are present within the aortic arch. IMPRESSION: 1. No acute cervical spine injury. 2. Degenerative changes. Dictated by: Marzena Starkey M.D. on 04/19/2019 at 10:59 Approved by: Marzena Starkey M.D. on 04/19/2019 at 11:03
--- NOTE | 2019-04-19 11:37 | ED_ITS ---
HPI - Syncope General Chief Complaint: GI Bleed Stated Complaint: Possible GI Bleed Time Seen by Provider: 04/19/19 11:31 Source: EMS Mode of arrival: EMS Limitations: no limitations History of Present Illness HPI narrative: Patient is a 64-year-old female history alcoholism, diabetes, CVA presenting with syncopal episode. She states she does not remember what happened but she fell in the bathroom. She is unsure if she hit her head she does have a contusion noted over her left eye however she says that is old from her last fall. She is also having some neck pain as well. EMS reports that she vomited coffee-ground like emesis while in route. She states she has not had anything to eat or drink for about 1 week she vomits at least 3 to 4 times a day. She has had normal bowel movements. She was actually seen evaluated here 04/12/2019 after syncopal episode combining Remeron with alcohol. During today 's fall she is unsure if she lost consciousness she has has no numbness tingling or weakness MD complaint: collapsed Onset (ago): hour(s) Related Data Home Medications Medication Instructions Recorded Confirmed Marijuana 1 ea INHALATION DAILY 10/08/17 02/20/19 Novolog Flexpen U-100 Insulin 1 dose SUBCUT QIDACHS 10/08/17 02/20/19 acetaminophen 325 mg PO Q4HP PRN 10/08/17 02/20/19 atorvastatin 40 mg PO QPM 10/08/17 02/20/19 cholecalciferol (vitamin D3) 3,000 unit PO DAILY 10/08/17 02/20/19 [Vitamin D3] lisinopril 40 mg PO DAILY 10/30/17 02/20/19 pen needle, diabetic 10/30/17 02/20/19 amlodipine 10 mg PO DAILY 02/19/18 02/20/19 mirtazapine 7.5 mg PO BEDTIME 02/19/18 02/20/19 aspirin 325 mg PO DAILY 07/25/18 02/20/19 vitamin B complex [B 1 tab PO DAILY 08/02/18 02/20/19 Complex-Vitamin B12] insulin glargine [Basaglar KwikPen 10 unit SUBCUT BID 02/20/19 02/20/19 U-100 Insulin] Allergies Allergy/AdvReac Type Severity Reaction Status Date / Time Iodine and Iodide Containing Allergy Unknown Verified 04/12/19 19:14 Produc [IODINE AND IODIDE CONTAINING PRODUC] latex [LATEX] Allergy Unknown Verified 04/12/19 19:14 Review of Systems Constitutional Constitutional: Denies chills, Denies fever(s), Denies lethargy and Denies weakness Eyes Eyes: Denies change in vision, Denies eye discharge, Denies irritation and Denies loss of vision ENT Ears, Nose, Mouth, and Throat: Denies change in voice, Denies vertigo, Denies dizziness, Denies neck pain and Denies sore throat Cardiovascular Cardiovascular: Denies chest pain, Reports syncope, Denies edema and Denies dyspnea on exertion Respiratory Respiratory: Denies dyspnea on exertion Gastrointestinal Gastrointestinal: Reports as per HPI Genitourinary Genitourinary: Denies hematuria, Denies flank pain, Denies urinary incontinence and Denies urinary urgency Musculoskeletal Musculoskeletal: Denies neck pain Integumentary/Breasts Skin/Breast: Denies pruritus, Denies erythema, Denies rash and Denies wounds Neurologic Neurologic: Denies vertigo, Denies dizziness, Reports syncope, Denies loss of vision, Denies convulsions and Denies weakness Patient History Medical History CVA (cerebral vascular accident) (Acute) Diabetes (Acute) Gallbladder disease (Chronic) Hypertension (Acute) Surgical History No pertinent past surgical history (Acute) Social History household members: spouse Smoking Status: Current every day smoker alcohol intake: current tobacco type: cigarettes alcohol intake frequency: holidays/special occasions only Alcohol type: hard liquor Substance Use Type: marijuana Exam Initial Vital Signs Initial Vital Signs: Vital Signs Temperature 97.6 F 04/19/19 11:42 Pulse Rate 117 H 04/19/19 11:42 Respiratory Rate 14 04/19/19 11:42 Blood Pressure 100/67 04/19/19 11:42 Pulse Oximetry 96 04/19/19 11:42 GENERAL: Chronically ill week pale female HEENT: Head atraumatic,EOMI, pupils reactive, contusion noted around left eye no swelling appears to be healing face symmetric, moist mucous membranes CARDIOVASCULAR: Regular rate and rhythm without murmurs, rubs or gallops. RESPIRATORY: Breath sounds equal bilaterally, no wheezes rales or rhonchi. ABDOMEN: Soft, nontender. Normoactive bowel sounds all 4 quadrants. No guarding or rebound. BACK: Mid thoracic pain no sign of trauma no vertebral tenderness EXTREMITIES: Normal range of motion, no clubbing or edema. Neurovascularly intact NEUROLOGICAL: Alert and oriented x4.Normal gait and speech. Cranial nerves II through XII grossly intact. production pattern maker strength equal bilaterally SKIN: Warm, dry, no laceration, no petechiae, no rashes or lesions. contusion over left shoulder also appears to be healed Scores NIH Stroke Scale Level of Conciousness: Alert, keenly responsive Ask month/age: Answers both questions correctly. Open/close eyes, close hand: Performs both tasks correctly Best gaze horizontal: Normal Visual cuevas: No visual loss Facial palsy: Normal symetrical movement Left arm drift: No drift for full 10 sec Right arm drift: No drift for full 10 sec Left leg drift: No drift for full 10 sec Right leg drift: No drift for full 10 sec Limb ataxia: Absent Sensory on face/arms/legs: Normal, no sensory loss Best language: No aphasia, normal Dysarthria: Normal Extinction or inattention: No abnormality Total NIH Stroke scale score: 0 Course Orders Ordered: ED Orders 04/19/19 11:32 CT cervical spine wo con Stat CT head/brain wo con Stat XR thoracic spine 2V Stat 04/19/19 12:10 Complete Blood Count AUTO DIFF Stat Comprehensive Metabolic Panel Stat Ethanol (ETOH) Stat Lactate (Lactic Acid) Stat Lipase Stat Partial Thromboplastin Time Stat Prothrombin Time INR Stat Troponin I Stat Type and Screen Stat 04/19/19 13:02 EKG-12 Lead Stat Discontinued Medications Sodium Chloride (Normal Saline 0.9%) 1,000 mls @ 150 mls/hr IV CONT MIRIAM Last Admin: 04/19/19 11:59 Dose: 150 mls/hr Documented by: AARON Ondansetron HCl (Zofran) 4 mg IV NOW ONE Stop: 04/19/19 11:33 Last Admin: 04/19/19 12:00 Dose: 4 mg Documented by: AARON Pantoprazole Sodium (Protonix) 40 mg IV NOW ONE Stop: 04/19/19 11:33 Last Admin: 04/19/19 12:00 Dose: 40 mg Documented by: AARON Consultations Consultation #1: Dr. De Dios trauma surgeon, updated on patient's symptoms test results accepts for transfer Time: 12:55 Consultation #2: Dr. Samuels, ER physician at [place] updated on patient's symptoms test results accepts for transfer Time: 12:55 Vital Signs Vital signs: Vital Signs - 8 hr 04/19/19 11:42 04/19/19 12:00 04/19/19 12:55 Temperature 97.6 F Pulse Rate 117 H 104 H 105 H Respiratory Rate 14 20 18 Blood Pressure 100/67 Blood Pressure [Right Arm] 103/63 104/65 Pulse Oximetry 96 97 98 04/19/19 13:25 Temperature Pulse Rate 114 H Respiratory Rate 20 Blood Pressure Blood Pressure [Right Arm] 88/62 L Pulse Oximetry 98 MDM - Syncope Lab Data Attestation: I reviewed the patient's lab results. Result diagrams: 04/19/19 12:10 04/19/19 12:10 Labs: Lab Results 04/19/19 04/19/19 04/19/19 Range/Units 12:10 12:10 12:10 WBC 22.5 H (4.5-11.0) X10^3/uL RBC 3.08 L (4.0-5.2) X10^6/uL Hgb 9.4 L (12.0-16.0) g/dL Hct 28.1 L (36-46) % MCV 91.5 (80-100) fL MCH 30.7 (26-34) PG MCHC 33.5 (30-36) % RDW 15.6 H (11.6-14.8) % Plt Count 252 (150-400) X10^3/uL Neut % (Auto) 87.4 H (50-75) % Lymph % (Auto) 5.4 L (25-40) % [place] % (Auto) 7.0 (3-14) % Eos % (Auto) 0.0 L (2-4) % Baso % (Auto) 0.2 (0-2) % Neut # (Auto) 36413 H (0512-5104) /uL Lymph # (Auto) 1200 (9769-3850) /uL [place] # (Auto) 1600 H (0-900) /uL Eos # (Auto) 0 (0-450) /uL Baso # (Auto) 100 (0-100) /uL PT (10.1-12.7) SECONDS INR (0.9-1.3) APTT (26.4-36.2) SECONDS Sodium (137-145) mmol/L Potassium (3.4-5.1) mmol/L Chloride (98-107) mmol/L Carbon Dioxide (22-32) mmol/L BUN (7-17) mg/dL Creatinine (0.52-1.04) mg/dL Estimated GFR (>60) mL/min BUN/Creatinine Ratio (6-22) Glucose (80-110) mg/dL Lactate 1.4 (0.7-2.1) mmol/L Calcium (8.4-10.2) mg/dL Total Bilirubin (0.2-1.3) mg/dL AST (14-36) IU/L ALT (<35) IU/L Alkaline Phosphatase (38-126) U/L Troponin I (0.01-0.034) ng/mL Total Protein (6.3-8.2) g/dL Albumin (3.5-5.0) g/dL Globulin (1.7-4.1) g/dL Albumin/Globulin Ratio (1.0-2.8) Lipase 12 L D (23-300) U/L Ethyl Alcohol ( - 10) mg/dL Blood Type Antibody Screen 04/19/19 04/19/19 04/19/19 Range/Units 12:10 12:10 12:10 WBC (4.5-11.0) X10^3/uL RBC (4.0-5.2) X10^6/uL Hgb (12.0-16.0) g/dL Hct (36-46) % MCV (80-100) fL MCH (26-34) PG MCHC (30-36) % RDW (11.6-14.8) % Plt Count (150-400) X10^3/uL Neut % (Auto) (50-75) % Lymph % (Auto) (25-40) % [place] % (Auto) (3-14) % Eos % (Auto) (2-4) % Baso % (Auto) (0-2) % Neut # (Auto) (9628-2849) /uL Lymph # (Auto) (2416-0486) /uL [place] # (Auto) (0-900) /uL Eos # (Auto) (0-450) /uL Baso # (Auto) (0-100) /uL PT 11.6 (10.1-12.7) SECONDS INR 1.0 (0.9-1.3) APTT 26 L D (26.4-36.2) SECONDS Sodium 134 L (137-145) mmol/L Potassium 3.3 L (3.4-5.1) mmol/L Chloride 93 L (98-107) mmol/L Carbon Dioxide 32 (22-32) mmol/L BUN 35 H (7-17) mg/dL Creatinine 0.90 (0.52-1.04) mg/dL Estimated GFR > 60.0 (>60) mL/min BUN/Creatinine Ratio 38.9 H (6-22) Glucose 358 H D (80-110) mg/dL Lactate (0.7-2.1) mmol/L Calcium 8.0 L (8.4-10.2) mg/dL Total Bilirubin 1.3 (0.2-1.3) mg/dL AST 29 (14-36) IU/L ALT 41 H (<35) IU/L Alkaline Phosphatase 124 (38-126) U/L Troponin I 0.070 H (0.01-0.034) ng/mL Total Protein 5.3 L (6.3-8.2) g/dL Albumin 2.7 L (3.5-5.0) g/dL Globulin 2.6 (1.7-4.1) g/dL Albumin/Globulin Ratio 1.0 (1.0-2.8) Lipase (23-300) U/L Ethyl Alcohol ( - 10) mg/dL Blood Type A Positive Antibody Screen Negative 04/19/19 Range/Units 12:10 WBC (4.5-11.0) X10^3/uL RBC (4.0-5.2) X10^6/uL Hgb (12.0-16.0) g/dL Hct (36-46) % MCV (80-100) fL MCH (26-34) PG MCHC (30-36) % RDW (11.6-14.8) % Plt Count (150-400) X10^3/uL Neut % (Auto) (50-75) % Lymph % (Auto) (25-40) % [place] % (Auto) (3-14) % Eos % (Auto) (2-4) % Baso % (Auto) (0-2) % Neut # (Auto) (9605-5272) /uL Lymph # (Auto) (1343-3268) /uL [place] # (Auto) (0-900) /uL Eos # (Auto) (0-450) /uL Baso # (Auto) (0-100) /uL PT (10.1-12.7) SECONDS INR (0.9-1.3) APTT (26.4-36.2) SECONDS Sodium (137-145) mmol/L Potassium (3.4-5.1) mmol/L Chloride (98-107) mmol/L Carbon Dioxide (22-32) mmol/L BUN (7-17) mg/dL Creatinine (0.52-1.04) mg/dL Estimated GFR (>60) mL/min BUN/Creatinine Ratio (6-22) Glucose (80-110) mg/dL Lactate (0.7-2.1) mmol/L Calcium (8.4-10.2) mg/dL Total Bilirubin (0.2-1.3) mg/dL AST (14-36) IU/L ALT (<35) IU/L Alkaline Phosphatase (38-126) U/L Troponin I (0.01-0.034) ng/mL Total Protein (6.3-8.2) g/dL Albumin (3.5-5.0) g/dL Globulin (1.7-4.1) g/dL Albumin/Globulin Ratio (1.0-2.8) Lipase (23-300) U/L Ethyl Alcohol < 10 ( - 10) mg/dL Blood Type Antibody Screen Point of Care Testing Glucose POC [address] scan - head: Radiologist's impression: PROCEDURE: CT HEAD/BRAIN WO CON INDICATIONS: syncope etoh TECHNIQUE: Noncontrast 4.5 mm thick angled axial sections acquired from the foramen magnum to the vertex, with coronal and sagittal reformats. For radiation dose reduction, the following was used: automated exposure control, adjustment of mA and/or kV according to patient size. COMPARISON: [facility], CT, CT HEAD/BRAIN WO CON, 04/12/2019, 19:45. FINDINGS: Image quality: Excellent. High density fluid layers along the posterior falx cerebri and the left aspect of the tentorium consistent with subdural bleed. A convex 0.9 x 2.8 cm high density fluid collection is present adjacent to the left temporal lobe anterior to the left lambdoid suture. It is unclear whether this is within the subdural or epidural space. There is mild sulcal effacement suggesting mild mass effect on the adjacent temporal lobe. No midline shift. No intraparenchymal hemorrhage. There is marked cerebral volume loss for age, with resultant ventricular and sulcal prominence. There are extensive periventricular and deep white matter chronic small vessel ischemic changes. There is intracranial internal carotid artery atherosclerosis. Calvarium and visualized facial bones appear intact, without suspicious lesions. Visualized sinuses and mastoids are clear. IMPRESSION: 1. Subdural hematoma as above. Convex high density fluid likely within the subdural space; however epidural hematoma cannot be excluded. The findings were discussed with Dr. Guerrero at 11:11 AM on 04/19/19. Dictated by: Marzena Starkey M.D. on 04/19/2019 at 11:08 Approved by: Marzena Starkey M.D. on 04/19/2019 at 11:15 CT cervical: Radiologist's impression: PROCEDURE: CT CERVICAL SPINE WO CON INDICATIONS: pain syncope TECHNIQUE: Noncontrast 3 mm thick sections acquired from the skull base to the T4 level. Sagittal and coronal reformats were then constructed. For radiation dose reduction, the following was used: automated exposure control, adjustment of mA and/or kV according to patient size. COMPARISON: None. FINDINGS: Image quality: Excellent. Bones: No fractures or dislocations. Degenerative change is present in the lower cervical spine. Visualized superior ribs are intact. Soft tissues: Prevertebral soft tissues are normal in thickness. No paravertebral hematomas. No apical pneumothoraces. Scattered atheromatous calcifications are present within the aortic arch. IMPRESSION: 1. No acute cervical spine injury. 2. Degenerative changes. Dictated by: Marzena Starkey M.D. on 04/19/2019 at 10:59 thoracic XR: Radiologist's impression: PROCEDURE: XR THORACIC SPINE 2V INDICATIONS: fall pain TECHNIQUE: 2 views of the thoracic spine were acquired. COMPARISON: [facility], CT, CT CHEST WITHOUT CONTRAST, 05/13/2018, 18:40. FINDINGS: Bones: No acute fractures or dislocations. Wedge compression deformities at T10 and T11 are unchanged from prior studies. No suspicious bony lesions. 12 pairs of ribs are noted, and appear intact where visualized. Soft tissues: No paravertebral stripe thickening. IMPRESSION: No acute radiographic findings. If there is continued pain, fol lowup exam or additional imaging such as MRI or CT could be performed for further assessment. Dictated by: Marzena Starkey M.D. on 04/19/2019 at 10:53 Approved by: Marzena Starkey M.D. on 04/19/2019 at 10:58 ECG Data Attestation: I personally reviewed and interpreted this ECG as follows: Prior ECG tracings: available for review Interpretation: Sinus tachycardia rate [address] elevation, slight depression noted in precordial leads V5 and V6, no T-wave inversion MDM Narrative Medical decision making narrative: Patient is neurovascularly intact and hemodynamically stable. She is found to have a subdural on CT radiologist could not completely exclude an epidural. The patient also likely has GI bleed. She has had vomiting and diarrhea every day for about the last week she had coffee-ground emesis per EMS no vomiting in the ED she is given a dose of Protonix. Hemoglobin hematocrit dropped slightly previously 13.9/41, today 9.4/28. The patient does take aspirin for history of CVA. No other blood thinners Noted to have leukocytosis, no obvious source of infection she is afebrile do n ot think sepsis at this time normal acid Troponin is noted to be indeterminate (cut off is 0.12), possibly related to demand ischemia or stress Patient being transferred to [facility] for high level of care for subdural and is all likely GI bleed. Critical Care Time Critical Care Time Critical Care Time: Yes Total Critical Care Time: 30 Attestation: The high probability of a clinically significant, sudden or life threatening deterioration of the [cardiovascular] system(s) required my full and direct attention, intervention and personal management. The aggregate critical care time was 30 minutes. This time is in addition to time spent performing reported procedures but includes the following: [x] Data Review and interpretation [x] Patient assessment and monitoring of vital signs [x] Documentation [x] Medication orders and management Discharge Plan Departure Patient Disposition: [facility] Clinical Impression: Acute subdural hematoma, Acute GI bleeding Discharge Date/Time: 04/19/19 13:44 Prescriptions: No Action Marijuana 1 ea inhalation DAILY RF: 0 atorvastatin 40 mg tablet 40 mg PO QPM RF: 0 cholecalciferol (vitamin D3) [Vitamin D3] 1,000 unit Capsule 3,000 unit PO DAILY RF: 0 Novolog Flexpen U-100 Insulin 100 UNIT/1 ML insulin pen 1 dose subcut QIDACHS RF: 0 acetaminophen 325 MG tablet 325 mg PO Q4HP PRN (Reason: Pain, Mild) RF: 0 aspirin 325 mg Tablet 325 mg PO DAILY RF: 0 Basaglar KwikPen U-100 Insulin 100 unit/mL (3 mL) insulin pen 10 unit SUBCUT BID RF: 0 lisinopril 40 mg tablet 40 mg PO DAILY RF: 0 (DME) pen needle, diabetic 32 gauge x 5/32 needle RF: 0 amlodipine 10 mg tablet 10 mg PO DAILY RF: 0 mirtazapine 7.5 MG tablet 7.5 mg PO BEDTIME RF: 0 vitamin B complex [B Complex-Vitamin B12] Tablet 1 tab PO DAILY RF: 0 Referrals: Jyoti Streeter MD [Primary Care Provider] -
[2019-04-19 11:42] VITALS: BP 100/67; PULSE 117; RESP 14; TEMP 36.4; O2SAT 96; BMI 19.3
[2019-04-19] MEDS: SODIUM CHLORIDE 0.9% 1,000 ML 150 ML IV (11:59)
[2019-04-19 12:00] VITALS: BP 103/63; PULSE 104; RESP 20; O2SAT 97
[2019-04-19] MEDS: ONDANSETRON 4 MG/2 ML INJ IV (12:00)
[2019-04-19] MEDS: PANTOPRAZOLE 40 MG VIAL IV (12:00)
[2019-04-19 12:23] LABS: Add Manual Diff / Slide Review NO; Basophils Absolute Auto 100 /uL (0-100); Basophils Percent Auto 0.2 % (0-2); Eosinophils Absolute Auto 0 /uL (0-450); Hematocrit 28.1 % (36-46); Hemoglobin 9.4 g/dL (12.0-16.0); Lymphocytes Absolute Auto 1200 /uL (1100-4500); Lymphocytes Percent Auto 5.4 % (25-40); Mean Corpuscular HGB Conc 33.5 % (30-36); Mean Corpuscular Hemoglobin 30.7 PG (26-34); Mean Corpuscular Volume 91.5 fL (80-100); Monocytes Absolute Auto 1600 /uL (0-900); Neutrophils Absolute Auto 19700 /uL (1500-7000); Neutrophils Percent Auto 87.4 % (50-75); Platelet Count 252 X10^3/uL (150-400); Red Blood Cell Count 3.08 X10^6/uL (4.0-5.2); Red Cell Distribution Width 15.6 % (11.6-14.8); White Blood Cell Count 22.5 X10^3/uL (4.5-11.0)
[2019-04-19 12:30] LABS: Prothrombin Time 11.6 SECONDS (10.1-12.7)
[2019-04-19 12:32] LABS: PTT Partial Thromboplastin Tim 26 SECONDS (26.4-36.2)
[2019-04-19 12:34] LABS: Alanine Aminotransferase 41 IU/L (<35); Albumin 2.7 g/dL (3.5-5.0); Alkaline Phosphatase 124 U/L (38-126); Aspartate Aminotransferase 29 IU/L (14-36); BUN Creatinine Ratio 38.9 (6-22); Bilirubin Total 1.3 mg/dL (0.2-1.3); Blood Urea Nitrogen 35 mg/dL (7-17); Carbon Dioxide 32 mmol/L (22-32); Chloride 93 mmol/L (98-107); Estimated Glomerular Filt Rate > 60.0 mL/min (>60); Globulin 2.6 g/dL (1.7-4.1); Glucose 358 mg/dL (80-110); HEMOLYSIS 21 (0-50); Lactate (Lactic Acid) 1.4 mmol/L (0.7-2.1); Potassium 3.3 mmol/L (3.4-5.1); Sodium 134 mmol/L (137-145); Total Protein 5.3 g/dL (6.3-8.2)
[2019-04-19 12:35] LABS: Ethanol (ETOH) < 10 mg/dL
[2019-04-19 12:47] LABS: Lipase 12 U/L (23-300)
[2019-04-19 12:55] VITALS: BP 104/65; PULSE 105; RESP 18; O2SAT 98
[2019-04-19 13:25] VITALS: BP 88/62; PULSE 114; RESP 20; O2SAT 98
== END 2019-04-19 13:44 | disposition short-term general hospital (02) ==
PROVIDERS: Emergency Provider Emergency Medicine; PCP Family Medicine
DX: S06.5X9A Traumatic subdural hemorrhage with loss of consciousness of unspecified duration, initial encounter (principal); K92.2 Gastrointestinal hemorrhage, unspecified; W19.XXXA Unspecified fall, initial encounter
CPT/HCPCS: 36415; 70450; 72070; 72125; 80053; 80320; 83605; 83690; 84484; 85025; 85610; 85730; 86850; 86900; 86901; 93005; 96374; 96375; 99283; 99291; C9113; J2405

== ENCOUNTER → 2019-06-28 15:06 | Outpatient (ROUT) | payer MEDICARE, MEDICAID, SELFPAY ==
[2018-02-19 15:21] VITALS: BMI 18.2
[2019-06-28 15:13] LABS: Add Manual Diff / Slide Review NO; Basophils Absolute Auto 0 /uL (0-100); Basophils Percent Auto 0.4 % (0-2); Eosinophils Absolute Auto 0 /uL (0-450); Eosinophils Percent Auto 0.6 % (2-4); Hemoglobin 9.8 g/dL (12.0-16.0); Lymphocytes Absolute Auto 1600 /uL (1100-4500); Lymphocytes Percent Auto 23.4 % (25-40); Mean Corpuscular HGB Conc 33.5 % (30-36); Mean Corpuscular Hemoglobin 30.9 PG (26-34); Mean Corpuscular Volume 92.3 fL (80-100); Monocytes Absolute Auto 500 /uL (0-900); Neutrophils Absolute Auto 4600 /uL (1500-7000); Neutrophils Percent Auto 67.6 % (50-75); Platelet Count 264 X10^3/uL (150-400); Red Blood Cell Count 3.17 X10^6/uL (4.0-5.2); Red Cell Distribution Width 14.7 % (11.6-14.8); White Blood Cell Count 6.8 X10^3/uL (4.5-11.0)
[2019-06-28 15:16] LABS: Hematocrit 29.2 % (36-46)
[2019-06-28 15:24] LABS: Blood Urea Nitrogen 20 mg/dL (7-17); Calcium 8.1 mg/dL (8.4-10.2); Carbon Dioxide 26 mmol/L (22-32); Chloride 105 mmol/L (98-107); Glucose 368 mg/dL (80-110); HEMOLYSIS < 15 (0-50); Potassium 4.6 mmol/L (3.4-5.1); Sodium 134 mmol/L (137-145)
== END ==
PROVIDERS: PCP Family Medicine; Visit Provider Nurse Practitioner
DX: R41.3 Other amnesia (principal); R41.0 Disorientation, unspecified
CPT/HCPCS: 80048; 85025

== ENCOUNTER → 2019-06-30 09:36 | Outpatient (CLI) | payer MEDICARE, MEDICAID, SELFPAY ==
[2018-02-19 15:21] VITALS: BMI 18.2
--- NOTE | 2019-06-30 | DI.CT.S_ITS ---
PROCEDURE: CT HEAD/BRAIN WO CON INDICATIONS: Other amnesia TECHNIQUE: Noncontrast 4.5 mm thick angled axial sections acquired from the foramen magnum to the vertex, with coronal and sagittal reformats. For radiation dose reduction, the following was used: automated exposure control, adjustment of mA and/or kV according to patient size. COMPARISON: [facility], CT, CT HEAD/BRAIN WO CON, 04/19/2019, 11:38. [facility], CT, CT HEAD/BRAIN WO CON, 04/12/2019, 19:45. [facility], CT, CT HEAD/BRAIN WO CON, 08/02/2018, 14:21. FINDINGS: Image quality: Excellent. CSF spaces: Basal cisterns are patent. No extra-axial fluid collections. The ventricles are symmetric in size and shape. Brain: No intracranial bleeds or masses. There is cerebral volume loss for age, with resultant ventricular and sulcal prominence. There are periventricular and deep white matter chronic small vessel ischemic changes. There is intracranial internal carotid artery atherosclerosis. Skull and face: Calvarium and visualized facial bones appear intact, without suspicious lesions. Sinuses: Visualized sinuses and mastoids are clear. IMPRESSION: Unremarkable intracranial study. No acute intracranial hemorrhage is seen. The previously seen hemorrhage has resolved. Dictated by: Chase Mensah M.D. on 06/30/2019 at 8:50 Approved by: Chase Mensah M.D. on 06/30/2019 at 8:52
== END ==
PROVIDERS: PCP Family Medicine; Referring Provider Licensed Practical Nurse; Visit Provider Licensed Practical Nurse
DX: R41.3 Other amnesia (principal)
CPT/HCPCS: 70450

== ENCOUNTER 2019-07-23 04:43 | Emergency (ER) | payer MEDICARE, MEDICAID, SELFPAY ==
[2018-02-19 15:21] VITALS: BMI 18.2
[2019-07-23 04:53] VITALS: BP 231/119; PULSE 90; RESP 18; TEMP 36.4; O2SAT 99
--- NOTE | 2019-07-23 04:54 | DI.RAD.S_ITS ---
PROCEDURE: XR CHEST 1V INDICATIONS: chest pain TECHNIQUE: One view of the chest was acquired. COMPARISON: [facility], CR, XR CHEST 1V, 04/12/2019, 19:34. FINDINGS: Surgical changes and devices: Status post ORIF of left humerus fracture and cholecystectomy. Lungs and pleura: Lungs are clear. No pleural effusions or pneumothorax. Mediastinum: Mediastinal contours appear normal. Heart size is normal. Bones and chest wall: No suspicious bony lesions. Overlying soft tissues appear unremarkable. IMPRESSION: No acute cardiopulmonary disease process. Dictated by: Rosalinda Suazo MD, PhD on 07/23/2019 at 8:21 Approved by: Rosalinda Suazo MD, PhD on 07/23/2019 at 8:22
--- NOTE | 2019-07-23 04:55 | ED_ITS ---
HPI - Nausea/Vomiting/Diarrhea General Chief complaint: Weakness Stated complaint: really sick/throwing up 3 days/high bp Time Seen by Provider: 07/23/19 04:45 Source: patient and family Mode of arrival: Ambulatory Limitations: no limitations History of Present Illness HPI Narrative: 64-year-old female smoker with history of hypertension diabetes and stroke presents with her in the chief complaint of 2-3 days of nausea, vomiting, diarrhea, headache and feeling generally unwell. She feels fatigued and weak. She states she has been taking all of her medications as directed. She denies any fever or chills nor exposure to ill persons. She denies any recent antibiotics, bad food or other significant risk MD complaint: nausea, vomiting and diarrhea Onset (ago): day(s) Description of Vomiting: food contents Description of Diarrhea: watery Associated Abdominal Pain: No Severity: mild Quality: cramping Exacerbating factors: none Associated symptoms: headaches, malaise and nausea/vomiting Related Data Home Medications Medication Instructions Recorded Confirmed Marijuana 1 ea INHALATION DAILY 10/08/17 02/20/19 Novolog Flexpen U-100 Insulin 1 dose SUBCUT QIDACHS 10/08/17 02/20/19 acetaminophen 325 mg PO Q4HP PRN 10/08/17 02/20/19 atorvastatin 40 mg PO QPM 10/08/17 02/20/19 cholecalciferol (vitamin D3) 3,000 unit PO DAILY 10/08/17 02/20/19 [Vitamin D3] lisinopril 40 mg PO DAILY 10/30/17 02/20/19 pen needle, diabetic 10/30/17 02/20/19 amlodipine 10 mg PO DAILY 02/19/18 02/20/19 mirtazapine 7.5 mg PO BEDTIME 02/19/18 02/20/19 aspirin 325 mg PO DAILY 07/25/18 02/20/19 vitamin B complex [B 1 tab PO DAILY 08/02/18 02/20/19 Complex-Vitamin B12] insulin glargine [Basaglar KwikPen 10 unit SUBCUT BID 02/20/19 02/20/19 U-100 Insulin] Previous Rx's Medication Instructions Recorded cephalexin [Keflex] 500 mg PO QID 7 Days #28 cap 07/23/19 Allergies Allergy/AdvReac Type Severity Reaction Status Date / Time Iodine and Iodide Containing Allergy Unknown Verified 04/12/19 19:14 Produc [IODINE AND IODIDE CONTAINING PRODUC] latex [LATEX] Allergy Unknown Verified 04/12/19 19:14 Review of Systems Constitutional Constitutional: Denies chills, Denies fatigue, Denies fever(s), Denies frequent falls, Reports headache(s), Denies lethargy and Denies weakness Eyes Eyes: Denies change in vision, Denies eye discharge, Denies irritation and Denies loss of vision ENT Ears, Nose, Mouth, and Throat: Denies change in voice, Denies dizziness, Reports headache(s), Denies neck pain, Denies sore throat and Denies throat swelling Cardiovascular Cardiovascular: Denies chest pain, Denies irregular heart rhythm, Denies lightheadedness, Denies palpitations, Denies dyspnea, Denies dyspnea on exertion and Denies orthopnea Respiratory Respiratory: Denies cough, Denies dyspnea, Denies dyspnea on exertion and Denies wheezing Gastrointestinal Gastrointestinal: Denies abdominal pain, Denies change in bowel habits, Reports diarrhea, Reports nausea and Reports vomiting Genitourinary Genitourinary: Denies hematuria, Denies flank pain, Denies urinary incontinence and Denies urinary urgency Musculoskeletal Musculoskeletal: Denies back pain, Denies muscle weakness, Denies neck pain, Denies numbness and Denies tingling Integumentary/Breasts Skin/Breast: Denies pruritus, Denies erythema, Denies rash and Denies wounds Neurologic Neurologic: Denies behavioral changes, Denies confusion, Denies dizziness, Denies frequent falls, Reports headache(s), Denies loss of vision, Denies numbness, Denies tingling and Denies weakness Psychiatric Psychiatric: Denies anxiety, Denies behavioral changes, Denies confusion, Denies depression, Denies homicidal ideation and Denies suicidal ideation Endocrine Endocrine: Denies fatigue, Denies flushing and Denies palpitations Hematologic/Lymphatic Hematologic/Lymphatic: Denies easy bruising Allergic/Immunologic Allergic/Immunologic: Denies urticaria, Denies throat swelling and Denies wheezing Patient History Medical History CVA (cerebral vascular accident) (Acute) Diabetes (Acute) Gallbladder disease (Chronic) Hypertension (Acute) Surgical History No pertinent past surgical history (Acute) Social History household members: spouse Smoking Status: Current every day smoker alcohol intake: current Smoking Status: Current every day smoker tobacco type: cigarettes alcohol intake frequency: holidays/special occasions only Alcohol type: hard liquor Substance Use Type: marijuana Exam Narrative Exam Narrative: GENERAL: [64] year old patient appears stated age. Well- nourished, well-developed patient, in mild distress. HEAD: Atraumatic. Normocephalic. EYES: Pupils equal round and reactive. Extraocular motions intact. No scleral icterus. No injection or drainage. ENT: Nose without bleeding, purulent drainage. Throat without erythema, tonsillar hypertrophy or exudate. Airway patent. NECK: Trachea midline. Non tender CARDIOVASCULAR: Regular rate and rhythm without murmurs, gallops, or rubs. RESPIRATORY: Clear to auscultation. Breath sounds equal bilaterally. No wheezes, rales, or rhonchi. GASTROINTESTINAL: Abdomen soft, non-tender, nondistended. EXTREMITIES: No edema or joint tenderness. BACK: Nontender without deformity or crepitance. No flank tenderness. NEURO: AOx3. SKIN: No rash or erythema of visible areas Initial Vital Signs Initial Vital Signs: Vital Signs Temperature 97.5 F L 07/23/19 04:53 Pulse Rate 90 07/23/19 04:53 Respiratory Rate 18 07/23/19 04:53 Blood Pressure 231/119 H 07/23/19 04:53 Pulse Oximetry 99 07/23/19 04:53 Course Orders Ordered: Discontinued Medications Cefazolin Sodium (Keflex 250 Mg Prepack) 1 bottle MISC SEEINSTR ONE Stop: 07/23/19 06:49 Last Admin: 07/23/19 06:55 Dose: 1 bottle Documented by: MMCFARL Sodium Chloride (Normal Saline 0.9%) 1,000 mls @ 1,000 mls/hr IV BOLUS ONE Stop: 07/23/19 07:09 Last Infusion: 07/23/19 06:56 Dose: 0 mls/hr Documented by: Admin: 07/23/19 06:14 Dose: 1,000 mls/hr Documented by: MMCFARL Labetalol HCl (Trandate) 10 mg IV NOW ONE Stop: 07/23/19 05:23 Last Admin: 07/23/19 05:34 Dose: 10 mg Documented by: MMCFARL MDM - Nausea/Vomiting/Diarrhea Lab Data Result diagrams: 07/23/19 05:30 07/23/19 05:00 Labs: Lab Results 07/23/19 07/23/19 07/23/19 Range/Units 05:00 05:00 05:30 WBC 17.4 H (4.5-11.0) X10^3/uL RBC 3.61 L (4.0-5.2) X10^6/uL Hgb 10.9 L (12.0-16.0) g/dL Hct 33.3 L (36-46) % MCV 92.4 (80-100) fL MCH 30.3 (26-34) PG MCHC 32.8 (30-36) % RDW 14.4 (11.6-14.8) % Plt Count 322 (150-400) X10^3/uL Neut % (Auto) 87.4 H (50-75) % Lymph % (Auto) 5.3 L (25-40) % [place] % (Auto) 6.4 (3-14) % Eos % (Auto) 0.0 L (2-4) % Baso % (Auto) 0.9 (0-2) % Neut # (Auto) 21611 H (3399-0310) /uL Lymph # (Auto) 900 L (7767-2641) /uL [place] # (Auto) 1100 H (0-900) /uL Eos # (Auto) 0 (0-450) /uL Baso # (Auto) 200 H (0-100) /uL Sodium 140 (137-145) mmol/L Potassium 3.4 (3.4-5.1) mmol/L Chloride 101 (98-107) mmol/L Carbon Dioxide 31 (22-32) mmol/L BUN 23 H (7-17) mg/dL Creatinine 0.90 (0.52-1.04) mg/dL Estimated GFR > 60.0 (>60) mL/min BUN/Creatinine Ratio 25.6 H (6-22) Glucose 185 H (80-110) mg/dL Lactate (0.7-2.1) mmol/L Calcium 8.8 (8.4-10.2) mg/dL Total Bilirubin 0.9 (0.2-1.3) mg/dL AST 36 (14-36) IU/L ALT 20 (<35) IU/L Alkaline Phosphatase 97 (38-126) U/L Total Creatine Kinase 70 (30-135) U/L CK-MB (CK-2) TNP CK-MB (CK-2) Rel Index TNP Troponin I 0.028 (0.01-0.034) ng/mL NT-Pro-B Natriuret Pep 30677 H (<125) pg/mL Total Protein 7.5 (6.3-8.2) g/dL Albumin 3.8 (3.5-5.0) g/dL Globulin 3.7 (1.7-4.1) g/dL Albumin/Globulin Ratio 1.0 (1.0-2.8) Urine Color Urine Appearance Urine pH (4.5-8.0) Ur Specific [place] (1.000-1.035) Urine Protein (Negative) Urine Glucose (UA) (Negative) g/dL Urine Ketones (NEGATIVE) Urine Occult Blood (Negative) Urine Nitrate (Negative) Urine Bilirubin (NEGATIVE) Urine Urobilinogen (0.2) E.U./dL Ur Leukocyte Esterase (NEGATIVE) Urine RBC (0-5/HPF) Urine WBC (0-5/HPF) Ur Squamous Epith Cells (0-5/HPF) Urine Bacteria (None) Ur Culture Indicated? Influenza A (RT-PCR) Flu a negative (NEGATIVE) Influenza B (RT-PCR) Flu b negative (NEGATIVE) 07/23/19 07/23/19 Range/Units 05:30 06:15 WBC (4.5-11.0) X10^3/uL RBC (4.0-5.2) X10^6/uL Hgb (12.0-16.0) g/dL Hct (36-46) % MCV (80-100) fL MCH (26-34) PG MCHC (30-36) % RDW (11.6-14.8) % Plt Count (150-400) X10^3/uL Neut % (Auto) (50-75) % Lymph % (Auto) (25-40) % [place] % (Auto) (3-14) % Eos % (Auto) (2-4) % Baso % (Auto) (0-2) % Neut # (Auto) (9766-6231) /uL Lymph # (Auto) (7593-6821) /uL [place] # (Auto) (0-900) /uL Eos # (Auto) (0-450) /uL Baso # (Auto) (0-100) /uL Sodium (137-145) mmol/L Potassium (3.4-5.1) mmol/L Chloride (98-107) mmol/L Carbon Dioxide (22-32) mmol/L BUN (7-17) mg/dL Creatinine (0.52-1.04) mg/dL Estimated GFR (>60) mL/min BUN/Creatinine Ratio (6-22) Glucose (80-110) mg/dL Lactate 1.7 (0.7-2.1) mmol/L Calcium (8.4-10.2) mg/dL Total Bilirubin (0.2-1.3) mg/dL AST (14-36) IU/L ALT (<35) IU/L Alkaline Phosphatase (38-126) U/L Total Creatine Kinase (30-135) U/L CK-MB (CK-2) CK-MB (CK-2) Rel Index Troponin I (0.01-0.034) ng/mL NT-Pro-B Natriuret Pep (<125) pg/mL Total Protein (6.3-8.2) g/dL Albumin (3.5-5.0) g/dL Globulin (1.7-4.1) g/dL Albumin/Globulin Ratio (1.0-2.8) Urine Color Yellow Urine Appearance Slightly cloudy Urine pH 7.0 (4.5-8.0) Ur Specific [place] 1.020 (1.000-1.035) Urine Protein 3+ H (Negative) Urine Glucose (UA) Negative (Negative) g/dL Urine Ketones Negative (NEGATIVE) Urine Occult Blood 2+ H (Negative) Urine Nitrate Negative (Negative) Urine Bilirubin Negative (NEGATIVE) Urine Urobilinogen 0.2 (0.2) E.U./dL Ur Leukocyte Esterase Negative (NEGATIVE) Urine RBC 10-30/hpf H (0-5/HPF) Urine WBC 30-100/hpf H (0-5/HPF) Ur Squamous Epith Cells 1-5 /hpf (0-5/HPF) Urine Bacteria Many (>30) H (None) Ur Culture Indicated? Specimen cultured Influenza A (RT-PCR) (NEGATIVE) Influenza B (RT-PCR) (NEGATIVE) Discharge Plan Departure Patient Disposition: Home Clinical Impression: Nausea, Acute dehydration, Acute UTI Hypertension Qualifiers: Hypertension type: essential hypertension Qualified Code(s): I10 - Essential (primary) hypertension Discharge Date/Time: 07/23/19 07:00 Instructions: DI for Dehydration -- Adult, DI for Urinary Tract Infection (UTI) Activity Restrictions/Additional Instructions: 1. Drink plenty of fluids with frequent small sips. 2. For the next 24 hours a clear liquid diet is advised. After that please employ a brat diet which would include bananas, rice, apples, toast. 3. Please take medications as directed. 4. Please follow-up with your doctor in the next 1-2 days. Call the office for an appointment. 5. Please return to the emergency Department for any worsening or persistent symptoms, such as increasing pain or fever. Prescriptions: New cephalexin [Keflex] 500 mg capsule 500 mg PO QID 7 Days Qty: 28 RF: 0 No Action Marijuana 1 ea inhalation DAILY RF: 0 atorvastatin 40 mg tablet 40 mg PO QPM RF: 0 cholecalciferol (vitamin D3) [Vitamin D3] 1,000 unit Capsule 3,000 unit PO DAILY RF: 0 Novolog Flexpen U-100 Insulin 100 UNIT/1 ML insulin pen 1 dose subcut QIDACHS RF: 0 acetaminophen 325 MG tablet 325 mg PO Q4HP PRN (Reason: Pain, Mild) RF: 0 aspirin 325 mg Tablet 325 mg PO DAILY RF: 0 Basaglar KwikPen U-100 Insulin 100 unit/mL (3 mL) insulin pen 10 unit SUBCUT BID RF: 0 lisinopril 40 mg tablet 40 mg PO DAILY RF: 0 (DME) pen needle, diabetic 32 gauge x needle RF: 0 amlodipine 10 mg tablet 10 mg PO DAILY RF: 0 mirtazapine 7.5 MG tablet 7.5 mg PO BEDTIME RF: 0 vitamin B complex [B Complex-Vitamin B12] Tablet 1 tab PO DAILY RF: 0 Referrals: Jyoti Streeter MD [Primary Care Provider] -
--- NOTE | 2019-07-23 04:56 | DI.CT.S_ITS ---
PROCEDURE: CT HEAD/BRAIN WO CON INDICATIONS: Hypertension, headache, confusion, vomiting TECHNIQUE: Noncontrast 4.5 mm thick angled axial sections acquired from the foramen magnum to the vertex, with coronal and sagittal reformats. For radiation dose reduction, the following was used: automated exposure control, adjustment of mA and/or kV according to patient size. COMPARISON: [facility], CT, CT HEAD/BRAIN WO CON, 06/30/2019, 9:38. FINDINGS: Image quality: Excellent. CSF spaces: Basal cisterns are patent. No extra-axial fluid collections. The ventricles are symmetric in size and shape. Brain: No intracranial bleeds or masses. There is cerebral volume loss for age, with resultant ventricular and sulcal prominence. There are periventricular and deep white matter chronic small vessel ischemic changes. Small chronic right thalamic and right globus pallidus lacunar infarcts are stable compared to prior exam. There is intracranial internal carotid artery atherosclerosis. Skull and face: Calvarium and visualized facial bones appear intact, without suspicious lesions. Sinuses: Visualized sinuses and mastoids are clear. IMPRESSION: No acute intracranial disease process. Dictated by: Rosalinda Suazo MD, PhD on 07/23/2019 at 7:33 Approved by: Rosalinda Suazo MD, PhD on 07/23/2019 at 7:35
[2019-07-23 05:13] VITALS: BP 219/107; PULSE 86; RESP 15; O2SAT 99
[2019-07-23 05:34] VITALS: BP 219/107; PULSE 86
[2019-07-23] MEDS: LABETALOL 20 MG/4 ML SYRINGE 10 MG IV (05:34)
[2019-07-23 05:49] LABS: Add Manual Diff / Slide Review NO; Basophils Absolute Auto 200 /uL (0-100); Basophils Percent Auto 0.9 % (0-2); Eosinophils Absolute Auto 0 /uL (0-450); Hematocrit 33.3 % (36-46); Hemoglobin 10.9 g/dL (12.0-16.0); Lymphocytes Absolute Auto 900 /uL (1100-4500); Lymphocytes Percent Auto 5.3 % (25-40); Mean Corpuscular HGB Conc 32.8 % (30-36); Mean Corpuscular Hemoglobin 30.3 PG (26-34); Mean Corpuscular Volume 92.4 fL (80-100); Monocytes Absolute Auto 1100 /uL (0-900); Monocytes Percent Auto 6.4 % (3-14); Neutrophils Absolute Auto 15200 /uL (1500-7000); Neutrophils Percent Auto 87.4 % (50-75); Platelet Count 322 X10^3/uL (150-400); Red Blood Cell Count 3.61 X10^6/uL (4.0-5.2); Red Cell Distribution Width 14.4 % (11.6-14.8); White Blood Cell Count 17.4 X10^3/uL (4.5-11.0)
[2019-07-23 05:58] LABS: Lactate (Lactic Acid) 1.7 mmol/L (0.7-2.1)
[2019-07-23 05:59] VITALS: BP 200/98; PULSE 72; RESP 15; O2SAT 98
[2019-07-23 05:59] LABS: Alanine Aminotransferase 20 IU/L (<35); Albumin 3.8 g/dL (3.5-5.0); Alkaline Phosphatase 97 U/L (38-126); Aspartate Aminotransferase 36 IU/L (14-36); BUN Creatinine Ratio 25.6 (6-22); Bilirubin Total 0.9 mg/dL (0.2-1.3); Blood Urea Nitrogen 23 mg/dL (7-17); Calcium 8.8 mg/dL (8.4-10.2); Carbon Dioxide 31 mmol/L (22-32); Chloride 101 mmol/L (98-107); Creatine Kinase 70 U/L (30-135); Estimated Glomerular Filt Rate > 60.0 mL/min (>60); Globulin 3.7 g/dL (1.7-4.1); Glucose 185 mg/dL (80-110); HEMOLYSIS 34 (0-50); Potassium 3.4 mmol/L (3.4-5.1); Sodium 140 mmol/L (137-145); Total Protein 7.5 g/dL (6.3-8.2)
[2019-07-23 06:05] VITALS: BP 196/99; PULSE 72; RESP 15; O2SAT 98
[2019-07-23 06:11] LABS: NT-proBNP (BNP-Adult 18+) 13000 pg/mL (<125); Troponin I 0.028 ng/mL (0.01-0.034)
[2019-07-23] MEDS: SODIUM CHLORIDE 0.9% 1,000 ML 1000 ML IV (06:14)
[2019-07-23 06:17] LABS: Influenza A - CEPHEID Flu A NEGATIVE (NEGATIVE); Influenza B - CEPHEID Flu B NEGATIVE (NEGATIVE)
[2019-07-23 06:42] LABS: Bilirubin Urine UA NEGATIVE (NEGATIVE); Color Urine UA YELLOW; Glucose Urine UA NEGATIVE (Negative); Ketones Urine UA NEGATIVE (NEGATIVE); Leukocyte Esterase Urine UA NEGATIVE (NEGATIVE); Nitrite Urine UA NEGATIVE (Negative); Occult Blood Urine UA 2+ (Negative); Protein Urine UA 3+ (Negative); Urobilinogen Urine UA 0.2 E.U./dL (0.2)
[2019-07-23] MEDS: cephALEXin 250 MG PREPACK 1 BOTTLE MISC (06:55)
[2019-07-23 06:57] LABS: Appearance Urine UA Slightly Cloudy
[2019-07-23 06:58] LABS: Bacteria Urine Many (>30); Culture Indicated Urine Specimen Cultured; RBC Urine 10-30/HPF (0-5/HPF); Squamous Epithelial Cell Urine 1-5 /HPF (0-5/HPF); WBC Urine 30-100/HPF (0-5/HPF)
[2019-07-23 07:00] VITALS: BP 189/93; PULSE 70; RESP 15; O2SAT 99
== END 2019-07-23 07:00 | disposition home or self-care (01) ==
PROVIDERS: Emergency Provider Emergency Medicine; PCP Family Medicine
DX: N39.0 Urinary tract infection, site not specified (principal); R11.0 Nausea; E86.0 Dehydration; I10 Essential (primary) hypertension; R07.9 Chest pain, unspecified; R51 Headache; R53.1 Weakness; R41.0 Disorientation, unspecified
CPT/HCPCS: 36415; 70450; 71045; 80053; 81001; 82550; 83605; 83880; 84484; 85025; 87077; 87086; 87186; 87502; 93005; 93010; 96361; 96374; 99285

== ENCOUNTER 2019-08-01 06:32 | Inpatient (IN) | payer MEDICARE, MEDICAID, SELFPAY ==
[2018-02-19 15:21] VITALS: BMI 18.2
[2019-08-01] VITALS (8 sets, daily range): BP systolic 128–159; BP diastolic 68–87; PULSE 91–107; RESP 10–20; TEMP 36.6–37.1; O2SAT 95–100; BMI 20.7
--- NOTE | 2019-08-01 06:46 | ED_ITS ---
HPI - General Adult General Chief complaint: Abdominal Pain Stated complaint: possible stomach bleeding Time Seen by Provider: 08/01/19 06:33 Source: patient Mode of arrival: Wheelchair Limitations: no limitations History of Present Illness HPI narrative: 64-year-old female. Insulin-dependent diabetic. Has a history of alcohol use but has not had anything to drink since the end of last year. Also has a history of high blood pressure. Not on anticoagulation. Currently being treated with antibiotics for urinary tract infection. Came in today with for evaluation of 3-4 days of vomiting and abdominal pain associated with vomiting. Over the past 24-36 hours has noticed some dark colored vomit. No diarrhea. No recent travel. Related Data Home Medications Medication Instructions Recorded Confirmed Marijuana 1 ea INHALATION DAILY 10/08/17 02/20/19 Novolog Flexpen U-100 Insulin 1 dose SUBCUT QIDACHS 10/08/17 02/20/19 acetaminophen 325 mg PO Q4HP PRN 10/08/17 02/20/19 atorvastatin 40 mg PO QPM 10/08/17 02/20/19 cholecalciferol (vitamin D3) 3,000 unit PO DAILY 10/08/17 02/20/19 [Vitamin D3] lisinopril 40 mg PO DAILY 10/30/17 02/20/19 pen needle, diabetic 10/30/17 02/20/19 amlodipine 10 mg PO DAILY 02/19/18 02/20/19 mirtazapine 7.5 mg PO BEDTIME 02/19/18 02/20/19 aspirin 325 mg PO DAILY 07/25/18 02/20/19 vitamin B complex [B 1 tab PO DAILY 08/02/18 02/20/19 Complex-Vitamin B12] insulin glargine [Basaglar KwikPen 10 unit SUBCUT BID 02/20/19 02/20/19 U-100 Insulin] Previous Rx's Medication Instructions Recorded cephalexin [Keflex] 500 mg PO QID 7 Days #28 cap 07/23/19 Allergies Allergy/AdvReac Type Severity Reaction Status Date / Time Iodine and Iodide Containing Allergy Unknown Verified 04/12/19 19:14 Produc [IODINE AND IODIDE CONTAINING PRODUC] latex [LATEX] Allergy Unknown Verified 04/12/19 19:14 Review of Systems Constitutional Constitutional: Denies fever(s) and Denies headache(s) ENT Ears, Nose, Mouth, and Throat: Denies headache(s) Cardiovascular Cardiovascular: Denies chest pain and Denies dyspnea Respiratory Respiratory: Denies dyspnea Gastrointestinal Gastrointestinal: Reports abdominal pain, Denies melena, Reports hematochezia, Denies change in stool character, Reports coffee ground emesis, Reports nausea and Reports vomiting Genitourinary Genitourinary: Denies dysuria Musculoskeletal Musculoskeletal: Denies myalgias and Denies arthralgias Integumentary/Breasts Skin/Breast: Denies lesions and Denies rash Neurologic Neurologic: Denies behavioral changes and Denies headache(s) Psychiatric Psychiatric: Denies behavioral changes Hematologic/Lymphatic Hematologic/Lymphatic: Denies easy bleeding and Denies easy bruising Patient History Medical History CVA (cerebral vascular accident) (Acute) Diabetes (Acute) Gallbladder disease (Chronic) Hypertension (Acute) Social History household members: significant other Smoking Status: Current every day smoker alcohol intake: former Smoking Status: Current every day smoker tobacco type: cigarettes alcohol intake frequency: holidays/special occasions only Alcohol type: hard liquor Substance Use Type: marijuana Exam Initial Vital Signs Initial Vital Signs: Vital Signs Temperature 98 F 08/01/19 06:42 Pulse Rate 107 H 08/01/19 06:42 Respiratory Rate 20 08/01/19 06:42 Blood Pressure 128/82 08/01/19 06:42 Pulse Oximetry 100 08/01/19 06:42 Const General: No acute distress and frail appearing Limitations: mental status not altered HENDE Head: normal to inspection and normocephalic Resp Effort & Inspection: normal respiratory effort Auscultation: clear to auscultation bilaterally Cardio Rate: tachycardic Rhythm: regular rhythm GI Inspection: non-distended Palpation: soft and No firm Skin General: pallor Lesions: no lesions Rashes: no rashes Neuro General: alert, awake and oriented x3 Cognition: normal cognition Speech: speech normal Gait: normal gait Extrem General: normal to inspection and capillary refill normal Psych Appearance: grossly normal and well kempt Course Orders Ordered: ED Orders 08/01/19 10:22 XR chest 2V Stat Dextrose (D50w) 25 gm IV PRN PRN PRN Reason: Hypoglycemia Enoxaparin Sodium (Lovenox) 40 mg SUBCUT DAILY [facility] Insulin Aspart (Novolog Flexpen) 0 unit SUBCUT ACHS [facility]; Protocol Last Admin: 08/01/19 17:11 Dose: 2 unit Documented by: SIMONA Cosigned by: CHAY Insulin Glargine (Lantus Solostar (Pen)) 8 unit SUBCUT 0800 [facility] Ondansetron HCl (Zofran) 4 mg IV Q8HR PRN PRN Reason: Nausea And Vomiting Pantoprazole Sodium (Protonix) 40 mg IV BID [facility] Discontinued Medications Al Hydrox/Mg Hydrox/Simethicone 30 ml/ Lidocaine HCl 15 ml 0 ml PO NOW ONE Stop: 08/01/19 07:57 Last Admin: 08/01/19 08:19 Dose: 45 ml Documented by: FRANKO Sodium Chloride (Normal Saline 0.9%) 1,000 mls @ 500 mls/hr IV BOLUS ONE Stop: 08/01/19 08:36 Last Infusion: 08/01/19 12:02 Dose: 0 mls/hr Documented by: Admin: 08/01/19 07:10 Dose: 500 mls/hr Documented by: AVNI Insulin Human Regular (Humulin R) 4 unit IV NOW ONE Stop: 08/01/19 07:42 Last Admin: 08/01/19 08:18 Dose: 4 unit Documented by: FRANKO Cosigned by: BENNY Pantoprazole Sodium (Protonix) 40 mg IV NOW ONE Stop: 08/01/19 06:51 Last Admin: 08/01/19 07:11 Dose: 40 mg Documented by: AVNI Vital Signs Vital signs: Vital Signs - 8 hr 08/01/19 06:42 Temperature 98 F Pulse Rate 107 H Respiratory Rate 20 Blood Pressure 128/82 Pulse Oximetry 100 Medical Decision Making Lab Data Result diagrams: 08/01/19 12:40 08/01/19 12:40 Labs: Lab Results 08/01/19 08/01/19 08/01/19 Range/Units 06:56 06:56 06:56 WBC 20.6 H (4.5-11.0) X10^3/uL RBC 3.94 L (4.0-5.2) X10^6/uL Hgb 11.8 L (12.0-16.0) g/dL Hct 36.2 (36-46) % MCV 92.0 (80-100) fL MCH 30.0 (26-34) PG MCHC 32.6 (30-36) % RDW 14.2 (11.6-14.8) % Plt Count 463 H (150-400) X10^3/uL Neut % (Auto) 89.9 H (50-75) % Lymph % (Auto) 4.8 L (25-40) % [place] % (Auto) 4.9 (3-14) % Eos % (Auto) 0.0 L (2-4) % Baso % (Auto) 0.4 (0-2) % Neut # (Auto) 94598 H (4061-4390) /uL Lymph # (Auto) 1000 L (0157-8543) /uL [place] # (Auto) 1000 H (0-900) /uL Eos # (Auto) 0 (0-450) /uL Baso # (Auto) 100 (0-100) /uL PT 10.2 (10.1-12.7) SECONDS INR 0.9 (0.9-1.3) APTT 17 L D (26.4-36.2) SECONDS VBG pH (7.33-7.43) VBG pCO2 (45-50) mmHg VBG pO2 (35-45) mmHg VBG HCO3 (23-28) mmol/L VBG Total CO2 (24-29) mmol/L VBG O2 Saturation (70-75) % VBG Base Excess (0-4) mmol/L Sodium 138 (137-145) mmol/L Potassium 3.9 (3.4-5.1) mmol/L Chloride 92 L (98-107) mmol/L Carbon Dioxide 27 (22-32) mmol/L BUN 33 H (7-17) mg/dL Creatinine 1.34 H (0.52-1.04) mg/dL Estimated GFR 39.9 L (>60) mL/min BUN/Creatinine Ratio 24.6 H (6-22) Glucose 302 H D (80-110) mg/dL Lactate (0.7-2.1) mmol/L Calcium 9.0 (8.4-10.2) mg/dL Phosphorus (2.8-4.1) mg/dL Magnesium (1.6-2.3) mg/dL Total Bilirubin 0.7 (0.2-1.3) mg/dL AST 31 (14-36) IU/L ALT 20 (<35) IU/L Alkaline Phosphatase 88 (38-126) U/L Total Protein 6.9 (6.3-8.2) g/dL Albumin 3.7 (3.5-5.0) g/dL Globulin 3.2 (1.7-4.1) g/dL Albumin/Globulin Ratio 1.2 (1.0-2.8) Lipase (23-300) U/L Ethyl Alcohol < 10 ( - 10) mg/dL Ketones (<0.27) mmol/L Blood Type Antibody Screen 08/01/19 08/01/19 08/01/19 Range/Units 06:56 06:56 06:56 WBC (4.5-11.0) X10^3/uL RBC (4.0-5.2) X10^6/uL Hgb (12.0-16.0) g/dL Hct (36-46) % MCV (80-100) fL MCH (26-34) PG MCHC (30-36) % RDW (11.6-14.8) % Plt Count (150-400) X10^3/uL Neut % (Auto) (50-75) % Lymph % (Auto) (25-40) % [place] % (Auto) (3-14) % Eos % (Auto) (2-4) % Baso % (Auto) (0-2) % Neut # (Auto) (1666-3318) /uL Lymph # (Auto) (8808-7388) /uL [place] # (Auto) (0-900) /uL Eos # (Auto) (0-450) /uL Baso # (Auto) (0-100) /uL PT (10.1-12.7) SECONDS INR (0.9-1.3) APTT (26.4-36.2) SECONDS VBG pH (7.33-7.43) VBG pCO2 (45-50) mmHg VBG pO2 (35-45) mmHg VBG HCO3 (23-28) mmol/L VBG Total CO2 (24-29) mmol/L VBG O2 Saturation (70-75) % VBG Base Excess (0-4) mmol/L Sodium (137-145) mmol/L Potassium (3.4-5.1) mmol/L Chloride (98-107) mmol/L Carbon Dioxide (22-32) mmol/L BUN (7-17) mg/dL Creatinine (0.52-1.04) mg/dL Estimated GFR (>60) mL/min BUN/Creatinine Ratio (6-22) Glucose (80-110) mg/dL Lactate 1.5 (0.7-2.1) mmol/L Calcium (8.4-10.2) mg/dL Phosphorus (2.8-4.1) mg/dL Magnesium (1.6-2.3) mg/dL Total Bilirubin (0.2-1.3) mg/dL AST (14-36) IU/L ALT (<35) IU/L Alkaline Phosphatase (38-126) U/L Total Protein (6.3-8.2) g/dL Albumin (3.5-5.0) g/dL Globulin (1.7-4.1) g/dL Albumin/Globulin Ratio (1.0-2.8) Lipase < 10 L (23-300) U/L Ethyl Alcohol ( - 10) mg/dL Ketones (<0.27) mmol/L Blood Type A Positive Antibody Screen Negative 08/01/19 08/01/19 Range/Units 06:56 07:45 WBC (4.5-11.0) X10^3/uL RBC (4.0-5.2) X10^6/uL Hgb (12.0-16.0) g/dL Hct (36-46) % MCV (80-100) fL MCH (26-34) PG MCHC (30-36) % RDW (11.6-14.8) % Plt Count (150-400) X10^3/uL Neut % (Auto) (50-75) % Lymph % (Auto) (25-40) % [place] % (Auto) (3-14) % Eos % (Auto) (2-4) % Baso % (Auto) (0-2) % Neut # (Auto) (8600-2042) /uL Lymph # (Auto) (5095-9815) /uL [place] # (Auto) (0-900) /uL Eos # (Auto) (0-450) /uL Baso # (Auto) (0-100) /uL PT (10.1-12.7) SECONDS INR (0.9-1.3) APTT (26.4-36.2) SECONDS VBG pH 7.48 H (7.33-7.43) VBG pCO2 39.2 L (45-50) mmHg VBG pO2 34 L (35-45) mmHg VBG HCO3 29 H (23-28) mmol/L VBG Total CO2 31 H (24-29) mmol/L VBG O2 Saturation 71 (70-75) % VBG Base Excess 6.0 H (0-4) mmol/L Sodium (137-145) mmol/L Potassium (3.4-5.1) mmol/L Chloride (98-107) mmol/L Carbon Dioxide (22-32) mmol/L BUN (7-17) mg/dL Creatinine (0.52-1.04) mg/dL Estimated GFR (>60) mL/min BUN/Creatinine Ratio (6-22) Glucose (80-110) mg/dL Lactate (0.7-2.1) mmol/L Calcium (8.4-10.2) mg/dL Phosphorus 4.3 H (2.8-4.1) mg/dL Magnesium 1.9 (1.6-2.3) mg/dL Total Bilirubin (0.2-1.3) mg/dL AST (14-36) IU/L ALT (<35) IU/L Alkaline Phosphatase (38-126) U/L Total Protein (6.3-8.2) g/dL Albumin (3.5-5.0) g/dL Globulin (1.7-4.1) g/dL Albumin/Globulin Ratio (1.0-2.8) Lipase (23-300) U/L Ethyl Alcohol ( - 10) mg/dL Ketones 6.81 H (<0.27) mmol/L Blood Type Antibody Screen Point of Care Testing Glucose POC 227 Point of care testing: Point of Care Testing Glucose POC 227 [facility] Narrative Medical decision making narrative: Patient with 3-4 days of vomiting however only about 1 day of dark colored vomit. No diarrhea. Denies use of alcohol. Does take ibuprofen every now and then but it has been several days since she has taken any. Epigastric abdominal pain. Labs ordered. Protonix ordered. Care turned over to Dr. Rowell at 0700 to follow-up on labs and disposition. Discharge Plan Departure Patient Disposition: Admitted as Observation Clinical Impression: Pneumobilia, Chronic alcoholic pancreatitis, Epigastric abdominal pain, Sinus tachycardia Leukocytosis Qualifiers: Leukocytosis type: bandemia Qualified Code(s): D72.825 - Bandemia Nausea and vomiting Qualifiers: Vomiting type: unspecified Vomiting Intractability: non-intractable Qualified Code(s): R11.2 - Nausea with vomiting, unspecified Discharge Date/Time: 08/01/19 12:10 Referrals: Jyoti Streeter MD [Primary Care Provider] - Admit Date/Time: 08/01/19 11:51 Admit Provider: Fabio Pichardo
[2019-08-01 07:02] LABS: Add Manual Diff / Slide Review NO; Basophils Absolute Auto 100 /uL (0-100); Basophils Percent Auto 0.4 % (0-2); Eosinophils Absolute Auto 0 /uL (0-450); Hematocrit 36.2 % (36-46); Hemoglobin 11.8 g/dL (12.0-16.0); Lymphocytes Absolute Auto 1000 /uL (1100-4500); Lymphocytes Percent Auto 4.8 % (25-40); Mean Corpuscular HGB Conc 32.6 % (30-36); Monocytes Absolute Auto 1000 /uL (0-900); Monocytes Percent Auto 4.9 % (3-14); Neutrophils Absolute Auto 18500 /uL (1500-7000); Neutrophils Percent Auto 89.9 % (50-75); Platelet Count 463 X10^3/uL (150-400); Red Blood Cell Count 3.94 X10^6/uL (4.0-5.2); Red Cell Distribution Width 14.2 % (11.6-14.8); White Blood Cell Count 20.6 X10^3/uL (4.5-11.0)
[2019-08-01 07:07] LABS: INR 0.9 (0.9-1.3); Prothrombin Time 10.2 SECONDS (10.1-12.7)
[2019-08-01 07:10] LABS: Lactate (Lactic Acid) 1.5 mmol/L (0.7-2.1); PTT Partial Thromboplastin Tim 17 SECONDS (26.4-36.2)
[2019-08-01] MEDS: SODIUM CHLORIDE 0.9% 1,000 ML 500 ML IV (07:10)
[2019-08-01 07:11] LABS: Lipase < 10 U/L (23-300); Magnesium 1.9 mg/dL (1.6-2.3); Phosphorous 4.3 mg/dL (2.8-4.1)
[2019-08-01] MEDS: PANTOPRAZOLE 40 MG VIAL IV ×2 (07:11→21:49)
[2019-08-01 07:12] LABS: Alanine Aminotransferase 20 IU/L (<35); Albumin 3.7 g/dL (3.5-5.0); Albumin Globulin Ratio 1.2 (1.0-2.8); Alkaline Phosphatase 88 U/L (38-126); Aspartate Aminotransferase 31 IU/L (14-36); BUN Creatinine Ratio 24.6 (6-22); Bilirubin Total 0.7 mg/dL (0.2-1.3); Blood Urea Nitrogen 33 mg/dL (7-17); Carbon Dioxide 27 mmol/L (22-32); Chloride 92 mmol/L (98-107); Estimated Glomerular Filt Rate 39.9 mL/min (>60); Ethanol (ETOH) < 10 mg/dL; Globulin 3.2 g/dL (1.7-4.1); Glucose 302 mg/dL (80-110); HEMOLYSIS < 15 (0-50); Potassium 3.9 mmol/L (3.4-5.1); Sodium 138 mmol/L (137-145); Total Protein 6.9 g/dL (6.3-8.2)
[2019-08-01 07:14] LABS: Ketones (Beta-Hydroxybutyrate) 6.81 mmol/L (<0.27)
--- NOTE | 2019-08-01 07:42 | ED_ITS ---
HPI - Abdominal Pain General Chief Complaint: Abdominal Pain Stated Complaint: possible stomach bleeding Time Seen by Provider: 08/01/19 06:33 Source: patient Mode of arrival: Wheelchair Limitations: no limitations History of Present Illness HPI narrative: The patient is a 64-year-old female with past history of alcohol consumption who presents to the emergency department with midepigastric abdominal pain persistent nausea and vomiting. She is also an insulin-dependent diabetic. The patient was seen and evaluated by Dr. Gonsales and report provided me at the change of shift. Related Data Home Medications Medication Instructions Recorded Confirmed Marijuana 1 ea INHALATION DAILY 10/08/17 08/02/19 atorvastatin 40 mg PO QPM 10/08/17 08/02/19 cholecalciferol (vitamin D3) 3,000 unit PO DAILY 10/08/17 08/02/19 [Vitamin D3] insulin aspart U-100 [Novolog 1 dose SUBCUT QIDACHS 10/08/17 08/02/19 Flexpen U-100 Insulin] pen needle, diabetic 10/30/17 08/02/19 mirtazapine 15 mg PO BEDTIME 02/19/18 08/02/19 aspirin 325 mg PO DAILY 07/25/18 08/02/19 insulin glargine [Basaglar KwikPen 8 unit SUBCUT BID 02/20/19 08/02/19 U-100 Insulin] amlodipine 2.5 mg PO DAILY 08/02/19 08/02/19 cyanocobalamin (vitamin B-12) 1,000 mcg PO DAILY 08/02/19 08/02/19 hydralazine 20 mg PO BID 08/02/19 08/02/19 lisinopril 30 mg PO DAILY 08/02/19 08/02/19 mirabegron [Myrbetriq] 25 mg PO DAILY 08/02/19 08/02/19 oxybutynin chloride 5 mg PO BEDTIME 08/02/19 08/02/19 sucralfate 1 g PO QID 08/02/19 08/02/19 tizanidine 2 mg PO Q8H PRN 08/02/19 08/02/19 Allergies Allergy/AdvReac Type Severity Reaction Status Date / Time Iodine and Iodide Containing Allergy Unknown Verified 04/12/19 19:14 Produc [IODINE AND IODIDE CONTAINING PRODUC] latex [LATEX] Allergy Unknown Verified 04/12/19 19:14 Review of Systems Constitutional Constitutional: Denies headache(s) ENT Ears, Nose, Mouth, and Throat: Denies headache(s) Neurologic Neurologic: Denies behavioral changes and Denies headache(s) Psychiatric Psychiatric: Denies behavioral changes Patient History Medical History CVA (cerebral vascular accident) (Acute) Diabetes (Acute) Gallbladder disease (Chronic) Hypertension (Acute) Social History household members: significant other Smoking Status: Current every day smoker alcohol intake: former Smoking Status: Current every day smoker tobacco type: cigarettes alcohol intake frequency: holidays/special occasions only Alcohol type: hard liquor Substance Use Type: marijuana Exam Narrative Exam Narrative: PHYSICAL EXAM: Re-examination. CONSTITUTIONAL: Awake, Alert, Oriented, Coherent, Cooperative in NAD. Appears chronically ill, pale, thin. Heart rate monitor reveals the patient's heart rate is 109. LUNGS: Clear with symmetrical breath sounds without respiratory distress HEART: Normal heart tones, regular rhythm mildly tachycardic. Distant heart tones. No murmur. ABDOMEN: Soft, tender in the epigastrium and right upper quadrant with mild guarding no rebound no rigidity no palpable organomegaly NEURO: Awake, alert, oriented, conversive, cranial nerves II-XII are symmetrical and normal, moves all 4 extremities and is ambulatory Initial Vital Signs Initial Vital Signs: Vital Signs Temperature 98 F 08/01/19 06:42 Pulse Rate 107 H 08/01/19 06:42 Respiratory Rate 20 08/01/19 06:42 Blood Pressure 128/82 08/01/19 06:42 Pulse Oximetry 100 08/01/19 06:42 Course Course Course Narrative: 0744 the patient has an anion gap of 19. Glucose is 300 into magnesium 1.9 lactate 1.5 [place] [address].6 which is probably secondary to her retching vomiting and de margination. She was started on Protonix 40 mg IV. Venous pH has been ordered on the patient. The patient's hemoglobin is 11.8. 0753 the patient was complaining of persistent pain and discomfort. She pointed to the epigastric area. Because of the physical findings being very tender and her elevated white blood count I will obtain a CT of the abdomen without IV contrast since the patient has a GFR of only 39.9. Her venous pH is 7.483. Lipase is less than 10. [address] scan of the abdomen pelvis have been completed however the report remains pending. 0901 the patient is sleeping so I assume her pain and discomfort has improved after receiving her GI cocktail. Her heart rate has also slow to 90 [address]. 0927: CT scan is limited because the patient cannot have IV contrast. CT scan of the solid organs reveals the liver to be normal in size. The gallbladder has been surgically removed. Biliary gas can be seen. Pancreas is normal in contours. Dense calcifications can be seen throughout the pancreas. Spleen is normal in size. No adrenal nodules. Kidneys are normal in size without hydronephrosis or nephrolithiasis. Appendix is normal. There is no free air and no fluid seen in the abdomen. No active process is identified, chronic pancreatitis without nicolette findings of active pancreatitis. Status post cholecystectomy with biliary gas. There are remote left posterior rib fractures. And there are focal lumbar spine degenerative changes. There are no acute diagnostic findings. The plan is to discharge the patient home on Protonix 40 mg per day and antacids as necessary every 4 hours. If the patient develops fever, worsening pain or discomfort, bloody stools she would will need to return to the emergency department. She needs to be re-evaluated by her primary care physician in 48-72 hours. 0938 I discussed the patient with general surgery on-call. He agrees that the patient should not have air in the biliary tree. Even though the jimbo ent's lipase is normal and CT scan of the pancreas reveals chronic pancreatitis the patient may have acute on chronic pancreatitis with epigastric pain. With a normal bilirubin and normal liver function tests the patient does not require surgery. There was no dilated bile ducts noted. He recommended discussing it with medicine and admitting the patient observation status. 1021 Discussed the patient with Dr. Naqvi who will come down and examine the patient and discussed the patient with GI himself before he decides to admit the patient. He would like us to check a urinalysis on the patient and will order a chest x-ray. Orders Ordered: Dextrose (D50w) 25 gm IV PRN PRN PRN Reason: Hypoglycemia Sodium Chloride (Normal Saline 0.9%) 1,000 mls @ 75 mls/hr IV CONT MIRIAM Last Admin: 08/02/19 06:34 Dose: 75 mls/hr Documented by: Infusion: 08/02/19 06:34 Dose: 75 mls/hr Documented by: Admin: 08/02/19 00:00 Dose: 75 mls/hr Documented by: NATALIA Insulin Aspart (Novolog Flexpen) 0 unit SUBCUT Q6H MIRIAM; Protocol Insulin Glargine (Lantus Solostar (Pen)) 8 unit SUBCUT 0800 MIRIAM Ondansetron HCl (Zofran) 4 mg IV Q8HR PRN PRN Reason: Nausea And Vomiting Pantoprazole Sodium (Protonix) 40 mg IV BID [facility] Last Admin: 08/01/19 21:49 Dose: 40 mg Documented by: SIMONA Discontinued Medications Al Hydrox/Mg Hydrox/Simethicone 30 ml/ Lidocaine HCl 15 ml 0 ml PO NOW ONE Stop: 08/01/19 07:57 Last Admin: 08/01/19 08:19 Dose: 45 ml Documented by: FRANKO Enoxaparin Sodium (Lovenox) 40 mg SUBCUT DAILY [facility] Sodium Chloride (Normal Saline 0.9%) 1,000 mls @ 500 mls/hr IV BOLUS ONE Stop: 08/01/19 08:36 Last Infusion: 08/01/19 12:02 Dose: 0 mls/hr Documented by: Admin: 08/01/19 07:10 Dose: 500 mls/hr Documented by: AVNI Insulin Aspart (Novolog Flexpen) 0 unit SUBCUT ACHS [facility]; Protocol Last Admin: 08/02/19 08:27 Dose: Not Given Documented by: Admin: 08/01/19 21:13 Dose: Not Given Documented by: Admin: 08/01/19 17:11 Dose: 2 unit Documented by: SIMONA Cosigned by: CHAY Insulin Human Regular (Humulin R) 4 unit IV NOW ONE Stop: 08/01/19 07:42 Last Admin: 08/01/19 08:18 Dose: 4 unit Documented by: FRANKO Cosigned by: BENNY Pantoprazole Sodium (Protonix) 40 mg IV NOW ONE Stop: 08/01/19 06:51 Last Admin: 08/01/19 07:11 Dose: 40 mg Documented by: AVNI Vital Signs Vital signs: Vital Signs - 8 hr 08/01/19 06:42 08/01/19 08:05 08/01/19 08:39 Temperature 98 F Pulse Rate 107 H 91 H 97 H Respiratory Rate 20 18 18 Blood Pressure 128/82 Blood Pressure [Right Arm] 128/82 159/76 H Pulse Oximetry 100 99 98 08/01/19 10:19 Temperature Pulse Rate 98 H Respiratory Rate 14 Blood Pressure Blood Pressure [Right Arm] 159/87 H Pulse Oximetry 100 MDM - Abdominal Pain Medical Records Attestation: I reviewed the patient's medical records. Lab Data Attestation: I reviewed the patient's lab results. Result diagrams: 08/02/19 04:30 08/02/19 04:30 Labs: Lab Results 08/01/19 08/01/19 08/01/19 Range/Units 06:56 06:56 06:56 WBC 20.6 H (4.5-11.0) X10^3/uL RBC 3.94 L (4.0-5.2) X10^6/uL Hgb 11.8 L (12.0-16.0) g/dL Hct 36.2 (36-46) % MCV 92.0 (80-100) fL MCH 30.0 (26-34) PG MCHC 32.6 (30-36) % RDW 14.2 (11.6-14.8) % Plt Count 463 H (150-400) X10^3/uL Neut % (Auto) 89.9 H (50-75) % Lymph % (Auto) 4.8 L (25-40) % [place] % (Auto) 4.9 (3-14) % Eos % (Auto) 0.0 L (2-4) % Baso % (Auto) 0.4 (0-2) % Neut # (Auto) 03551 H (6750-3602) /uL Lymph # (Auto) 1000 L (5470-5776) /uL [place] # (Auto) 1000 H (0-900) /uL Eos # (Auto) 0 (0-450) /uL Baso # (Auto) 100 (0-100) /uL PT 10.2 (10.1-12.7) SECONDS INR 0.9 (0.9-1.3) APTT 17 L D (26.4-36.2) SECONDS VBG pH (7.33-7.43) VBG pCO2 (45-50) mmHg VBG pO2 (35-45) mmHg VBG HCO3 (23-28) mmol/L VBG Total CO2 (24-29) mmol/L VBG O2 Saturation (70-75) % VBG Base Excess (0-4) mmol/L Sodium 138 (137-145) mmol/L Potassium 3.9 (3.4-5.1) mmol/L Chloride 92 L (98-107) mmol/L Carbon Dioxide 27 (22-32) mmol/L BUN 33 H (7-17) mg/dL Creatinine 1.34 H (0.52-1.04) mg/dL Estimated GFR 39.9 L (>60) mL/min BUN/Creatinine Ratio 24.6 H (6-22) Glucose 302 H D (80-110) mg/dL Lactate (0.7-2.1) mmol/L Calcium 9.0 (8.4-10.2) mg/dL Phosphorus (2.8-4.1) mg/dL Magnesium (1.6-2.3) mg/dL Total Bilirubin 0.7 (0.2-1.3) mg/dL AST 31 (14-36) IU/L ALT 20 (<35) IU/L Alkaline Phosphatase 88 (38-126) U/L Total Protein 6.9 (6.3-8.2) g/dL Albumin 3.7 (3.5-5.0) g/dL Globulin 3.2 (1.7-4.1) g/dL Albumin/Globulin Ratio 1.2 (1.0-2.8) Lipase (23-300) U/L Ethyl Alcohol < 10 ( - 10) mg/dL Ketones (<0.27) mmol/L Blood Type Antibody Screen 08/01/19 08/01/19 08/01/19 Range/Units 06:56 06:56 06:56 WBC (4.5-11.0) X10^3/uL RBC (4.0-5.2) X10^6/uL Hgb (12.0-16.0) g/dL Hct (36-46) % MCV (80-100) fL MCH (26-34) PG MCHC (30-36) % RDW (11.6-14.8) % Plt Count (150-400) X10^3/uL Neut % (Auto) (50-75) % Lymph % (Auto) (25-40) % [place] % (Auto) (3-14) % Eos % (Auto) (2-4) % Baso % (Auto) (0-2) % Neut # (Auto) (6035-1954) /uL Lymph # (Auto) (5784-4442) /uL [place] # (Auto) (0-900) /uL Eos # (Auto) (0-450) /uL Baso # (Auto) (0-100) /uL PT (10.1-12.7) SECONDS INR (0.9-1.3) APTT (26.4-36.2) SECONDS VBG pH (7.33-7.43) VBG pCO2 (45-50) mmHg VBG pO2 (35-45) mmHg VBG HCO3 (23-28) mmol/L VBG Total CO2 (24-29) mmol/L VBG O2 Saturation (70-75) % VBG Base Excess (0-4) mmol/L Sodium (137-145) mmol/L Potassium (3.4-5.1) mmol/L Chloride (98-107) mmol/L Carbon Dioxide (22-32) mmol/L BUN (7-17) mg/dL Creatinine (0.52-1.04) mg/dL Estimated GFR (>60) mL/min BUN/Creatinine Ratio (6-22) Glucose (80-110) mg/dL Lactate 1.5 (0.7-2.1) mmol/L Calcium (8.4-10.2) mg/dL Phosphorus (2.8-4.1) mg/dL Magnesium (1.6-2.3) mg/dL Total Bilirubin (0.2-1.3) mg/dL AST (14-36) IU/L ALT (<35) IU/L Alkaline Phosphatase (38-126) U/L Total Protein (6.3-8.2) g/dL Albumin (3.5-5.0) g/dL Globulin (1.7-4.1) g/dL Albumin/Globulin Ratio (1.0-2.8) Lipase < 10 L (23-300) U/L Ethyl Alcohol ( - 10) mg/dL Ketones (<0.27) mmol/L Blood Type A Positive Antibody Screen Negative 08/01/19 08/01/19 Range/Units 06:56 07:45 WBC (4.5-11.0) X10^3/uL RBC (4.0-5.2) X10^6/uL Hgb (12.0-16.0) g/dL Hct (36-46) % MCV (80-100) fL MCH (26-34) PG MCHC (30-36) % RDW (11.6-14.8) % Plt Count (150-400) X10^3/uL Neut % (Auto) (50-75) % Lymph % (Auto) (25-40) % [place] % (Auto) (3-14) % Eos % (Auto) (2-4) % Baso % (Auto) (0-2) % Neut # (Auto) (0646-6025) /uL Lymph # (Auto) (9462-7989) /uL [place] # (Auto) (0-900) /uL Eos # (Auto) (0-450) /uL Baso # (Auto) (0-100) /uL PT (10.1-12.7) SECONDS INR (0.9-1.3) APTT (26.4-36.2) SECONDS VBG pH 7.48 H (7.33-7.43) VBG pCO2 39.2 L (45-50) mmHg VBG pO2 34 L (35-45) mmHg VBG HCO3 29 H (23-28) mmol/L VBG Total CO2 31 H (24-29) mmol/L VBG O2 Saturation 71 (70-75) % VBG Base Excess 6.0 H (0-4) mmol/L Sodium (137-145) mmol/L Potassium (3.4-5.1) mmol/L Chloride (98-107) mmol/L Carbon Dioxide (22-32) mmol/L BUN (7-17) mg/dL Creatinine (0.52-1.04) mg/dL Estimated GFR (>60) mL/min BUN/Creatinine Ratio (6-22) Glucose (80-110) mg/dL Lactate (0.7-2.1) mmol/L Calcium (8.4-10.2) mg/dL Phosphorus 4.3 H (2.8-4.1) mg/dL Magnesium 1.9 (1.6-2.3) mg/dL Total Bilirubin (0.2-1.3) mg/dL AST (14-36) IU/L ALT (<35) IU/L Alkaline Phosphatase (38-126) U/L Total Protein (6.3-8.2) g/dL Albumin (3.5-5.0) g/dL Globulin (1.7-4.1) g/dL Albumin/Globulin Ratio (1.0-2.8) Lipase (23-300) U/L Ethyl Alcohol ( - 10) mg/dL Ketones 6.81 H (<0.27) mmol/L Blood Type Antibody Screen Point of care testing: Point of Care Testing Glucose POC 227 Discharge Plan Departure Patient Disposition: Admitted as Observation Clinical Impression: Pneumobilia, Chronic alcoholic pancreatitis, Epigastric abdominal pain, Sinus tachycardia Leukocytosis Qualifiers: Leukocytosis type: bandemia Qualified Code(s): D72.825 - Bandemia Nausea and vomiting Qualifiers: Vomiting type: unspecified Vomiting Intractability: non-intractable Qualified Code(s): R11.2 - Nausea with vomiting, unspecified Discharge Date/Time: 08/01/19 12:10 Referrals: Jyoti Streeter MD [Primary Care Provider] - Admit Date/Time: 08/01/19 11:51 Admit Provider: Fabio Pichardo
--- NOTE | 2019-08-01 07:55 | DI.CT.S_ITS ---
PROCEDURE: CT ABDOMEN PELVIS WO CON INDICATIONS: persistent epigastric abdominal pain with leukocytosis TECHNIQUE: Noncontrast 5 mm thick sections acquired from the diaphragms to the symphysis. 5 mm coronal and sagittal reformats were then performed. For radiation dose reduction, the following was used: automated exposure control, adjustment of mA and/or kV according to patient size. COMPARISON: [facility], CT, CT ABDOMEN PELVIS W CON, 02/20/2019, 14:58. [facility], CT, ABDOMEN/PELVIS WITHOUT CONTRAS, 04/08/2013, 15:53. FINDINGS: Image quality: Excellent. ABDOMEN: Lung bases: Lung bases are clear. Heart size is normal. Coronary artery calcifications are seen. Remote left posterior rib fractures can be seen. Solid organs: Liver is normal in size. The gallbladder has been removed. Biliary gas can be seen. Pancreas is normal in contours. Dense calcification can be seen throughout the pancreas. Spleen is normal in size. No adrenal nodules. Kidneys are normal in size, without hydronephrosis or nephrolithiasis. Peritoneum and bowel: Unenhanced bowel loops demonstrate normal wall thickness and caliber. No free fluid or air. Incidental note is made of a normal-appearing appendix. Nodes and vessels: No retroperitoneal or mesenteric adenopathy by size criteria. Aorta and inferior vena cava are normal in caliber. Atherosclerotic calcification is noted. Miscellaneous: No ventral hernias. PELVIS: Genitourinary: Bladder wall thickness is normal. Gas can be seen within the urinary bladder. Please correlate with recent instrumentation. Miscellaneous: No inguinal hernias or adenopathy. Bones: No suspicious bony lesions. There is a remote T11 central compression deformity. Mild grade 1 anterolisthesis is seen at L3-L4, without associated pars defects. No acute vertebral body compression fractures. Degenerative changes are seen throughout, particularly affecting the lower lumbar spine. IMPRESSION: No active process is identified, to the limits of the study performed without IV or oral contrast. Chronic pancreatitis, without nicolette findings of active pancreatitis. Status post cholecystectomy, with biliary gas. Incidental note is made of: Dense atherosclerotic calcification, including coronary artery calcification Remote left posterior rib fractures Focal lumbar spine degenerative change Dictated by: Chase Mensah M.D. on 08/01/2019 at 7:51 Approved by: Chase Mensah M.D. on 08/01/2019 at 7:55
[2019-08-01 08:05] LABS: HCO3 VBG 29 mmol/L (23-28); PCO2 VBG 39.2 mmHg (45-50); PO2 VBG 34 mmHg (35-45); Total CO2 VBG 31 mmol/L (24-29); pH VBG 7.48 (7.33-7.43)
[2019-08-01 08:08] LABS: Oxygen Saturation VBG 71 % (70-75)
[2019-08-01] MEDS: INSULIN REGULAR 100 UNIT/ML 3 ML VIAL IV (08:18)
[2019-08-01] MEDS: MAG HYDROX/ALUMINUM/SIMETH SUS 30 ML, LIDOCAINE VISCOUS 2% 15 ML PO (08:19)
--- NOTE | 2019-08-01 10:22 | DI.RAD.S_ITS ---
PROCEDURE: XR CHEST 2V INDICATIONS: epigastric pain with leukocytosis TECHNIQUE: 2 views of the chest were acquired. COMPARISON: [facility], CR, XR CHEST 1V, 07/23/2019, 4:57. FINDINGS: Surgical changes and devices: ORIF left proximal humerus. Surgical clips in the gallbladder fossa. Lungs and pleura: Lungs are clear. No pleural effusions or pneumothorax. Mediastinum: Mediastinal contours are normal. Heart size is normal. Bones and chest wall: No suspicious bony abnormalities. Soft tissues appear unremarkable. IMPRESSION: No acute cardiopulmonary disease. Dictated by: Sun Jiang M.D. on 08/01/2019 at 10:51 Approved by: Sun Jiang M.D. on 08/01/2019 at 10:53
--- NOTE | 2019-08-01 12:28 | PC.NURSE ---
ADMISSION COMPLETE, PT ALERT/ORIENTED BUT FORGETFUL- IVF RUNNING AT 150CC/H SHE DENIES PAIN OR NEED TO VOID- WILL COLLECT SPEC UPON VOID- SHE DID REPORT BEING RELEASED FROM [facility] 2 WEEKS AGO TO HOME FOLLOWING 2 MONTH STAY FOLLOWING 10DAY TREATMENT FOR FALL AT HOME AT [facility]. SHE IS ALSO WISHING FOR FLU VACCINE THIS ADMISSION- AWAITING LABS TO BE RESULTED TO DETERMINE COURSE OF CARE
--- NOTE | 2019-08-01 12:35 | P.HP_ITS ---
History of Present Illness History of Present Illness Date Patient Seen: 08/01/19 Time Patient Seen: 13:22 Chief complaint: possible stomach bleeding Narrative: Kristine Moon is a 64-year-old female with past medical history of diabetes, hypertension, hyperlipidemia, prior CVA, subdural hematoma, peptic ulcer disease (recently with endoscopy 04/2019), Cholecystectomy complicated by biliary duct injury with prior stent placement who presented with nausea and possible brown vomiting for the past 2 days, subjective fever, and 1 day of epigastric abdominal pain. Patient states that she has been nauseous and having clear emesis for the past 2 days. did measure her temperature and it was reportedly 102.8 a couple of days ago but has not been elevated since. She had a recent ER presentation with similar symptoms and was diagnosed with a urinary tract infection and was discharged on oral cephalexin on July 22. She came into the emergency room today because her vomiting became more dark and possibly coffee-ground in nature and began developing a dull epigastric abdominal pain. Her pain does not radiate, but she does complain of a back ache as well. It does not seem to be better or worse with anything. She states her glucoses have been elevated in the 270s for the past couple of days at home, and she has been taking her usual dose of 8 units of Lantus in the morning. She denies any chest pain, cough, shortness of breath, recent sick contacts, muscle aches or joint pains, lower extremity edema. She denies any dysuria or urinary frequency. In the emergency room, patient was afebrile, mildly hypertensive, and tachycardic. She was saturating well on room air. Laboratory evaluation was notable for a WBC of 20.6, hemoglobin of 11.8 (increased from prior ED visit), platelet 463. VBG showed a pH of 7.48, pCO2 of 39. Chemistries initially showed an anion gap 19, glucose of 302, positive ketones, negative lipase, and normal hepatic function testing. Troponin was not obtained but is currently pending. Initial CT abdomen pelvis showed evidence chronic pancreatitis, but no active pancreatitis as well as pneumobilia which is present on prior abdominal CTs. Chest x-ray was negative. EKG was not obtained but is currently pending. Patient was given a small dose of regular insulin, 4 units, as well as fluids, and her anion gap closed upon repeat evaluation on the floor. Patient was admitted under observation status for likely mild DKA on admission that quickly resolved and possible upper GI bleeding. Patient History Medical History CVA (cerebral vascular accident) (Acute) Diabetes (Acute) Gallbladder disease (Chronic) Hypertension (Acute) Family & Social History Social History: household members significant other Prior Living Arrangements House Safety & Behavioral: Feels Safe in Current Yes Environment Been Physically Hurt or No Threatened By a Person Suicidal Ideation Description None Suicide Plan Description No Plan Tobacco & Substance use: Tobacco type cigarettes,cannabis/marijuana Smoking Status Current every day smoker alcohol intake former alcohol intake frequency holiday/special occasion Substance Use Type marijuana Meds Home Medications and Allergies Home Medications Medication Instructions Recorded Confirmed Type Marijuana 1 ea INHALATION DAILY 10/08/17 02/20/19 History Novolog Flexpen U-100 Insulin 1 dose SUBCUT QIDACHS 10/08/17 02/20/19 History acetaminophen 325 mg PO Q4HP PRN 10/08/17 02/20/19 History atorvastatin 40 mg PO QPM 10/08/17 02/20/19 History cholecalciferol (vitamin D3) 3,000 unit PO DAILY 10/08/17 02/20/19 History [Vitamin D3] lisinopril 40 mg PO DAILY 10/30/17 02/20/19 History pen needle, diabetic 10/30/17 02/20/19 History amlodipine 10 mg PO DAILY 02/19/18 02/20/19 History mirtazapine 7.5 mg PO BEDTIME 02/19/18 02/20/19 History aspirin 325 mg PO DAILY 07/25/18 02/20/19 History vitamin B complex [B 1 tab PO DAILY 08/02/18 02/20/19 History Complex-Vitamin B12] insulin glargine [Basaglar KwikPen 10 unit SUBCUT BID 02/20/19 02/20/19 History U-100 Insulin] cephalexin [Keflex] 500 mg PO QID 7 Days #28 cap 07/23/19 Rx Allergies Allergy/AdvReac Type Severity Reaction Status Date / Time Iodine and Iodide Containing Allergy Unknown Verified 04/12/19 19:14 Produc [IODINE AND IODIDE CONTAINING PRODUC] latex [LATEX] Allergy Unknown Verified 04/12/19 19:14 Review of Systems Review of Systems Narrative: All other systems reviewed with the patient and are negative unless otherwise stated. Exam Vital Signs (past 8 hours): - 08/01/19 06:42 08/01/19 08:05 08/01/19 08:39 Temperature 98 F Pulse Rate 107 H 91 H 97 H Respiratory Rate 20 18 18 Blood Pressure 128/82 Blood Pressure [Right Arm] 128/82 159/76 H Pulse Oximetry 100 99 98 08/01/19 10:19 08/01/19 11:59 Temperature Pulse Rate 98 H 101 H Respiratory Rate 14 18 Blood Pressure Blood Pressure [Right Arm] 159/87 H 142/68 H Pulse Oximetry 100 95 Oxygen Delivery Method Room Air Narrative Exam Narrative: GENERAL APPEARANCE: Thin appearing elderly female in no acute distress. Appears mildly pale. SKIN: Inspection of the skin reveals no rashes, ulcerations or petechiae. HEENT: Normocephalic atraumatic, extraocular muscles are intact, oropharynx is clear and mucous membranes are moist, neck is supple without adenopathy NECK: Supple and symmetric. There was no thyroid enlargement, and no tenderness, or masses were felt. CHEST: Normal AP diameter and normal contour without any kyphoscoliosis. LUNGS: Auscultation of the lungs revealed no wheezes, rhonchi, or rales. CARDIOVASCULAR: There was a regular rate and rhythm without any murmurs, gallops, rubs. Peripheral pulses were 2+ and symmetric. ABDOMEN: Soft, mild epigastric tenderness. No ascites was noted. MUSCULOSKELETAL: There was no tenderness or effusions noted. Muscle strength and tone were normal. EXTREMITIES: No cyanosis, clubbing or edema. NEUROLOGIC: Alert and oriented x 3. Normal affect. Sensation to touch was normal. Objective ECG Impression: pending Imaging CT scan - abdomen: Radiologist's impression: No active process is identified, to the limits of the study performed without IV or oral contrast. Chronic pancreatitis, without nicolette findings of active pancreatitis. Status post cholecystectomy, with biliary gas. Incidental note is made of: Dense atherosclerotic calcification, including coronary artery calcification Remote left posterior rib fractures Focal lumbar spine degenerative change Chest x-ray: My impression: No acute cardiopulmonary process Radiologist's impression: No acute cardiopulmonary disease Labs Result Diagrams: 08/01/19 06:56 08/01/19 12:40 Labs: Laboratory Results - last 24 hr 08/01/19 08/01/19 08/01/19 06:56 06:56 06:56 WBC 20.6 H RBC 3.94 L Hgb 11.8 L Hct 36.2 MCV 92.0 MCH 30.0 MCHC 32.6 RDW 14.2 Plt Count 463 H Neut % (Auto) 89.9 H Lymph % (Auto) 4.8 L [place] % (Auto) 4.9 Eos % (Auto) 0.0 L Baso % (Auto) 0.4 Neut # (Auto) 84459 H Lymph # (Auto) 1000 L [place] # (Auto) 1000 H Eos # (Auto) 0 Baso # (Auto) 100 PT 10.2 INR 0.9 APTT 17 L D VBG pH VBG pCO2 VBG pO2 VBG HCO3 VBG Total CO2 VBG O2 Saturation VBG Base Excess Sodium 138 Potassium 3.9 Chloride 92 L Carbon Dioxide 27 BUN 33 H Creatinine 1.34 H Estimated GFR 39.9 L BUN/Creatinine Ratio 24.6 H Glucose 302 H D Lactate Calcium 9.0 Phosphorus Magnesium Total Bilirubin 0.7 AST 31 ALT 20 Alkaline Phosphatase 88 Total Protein 6.9 Albumin 3.7 Globulin 3.2 Albumin/Globulin Ratio 1.2 Lipase Ethyl Alcohol < 10 Ketones Blood Type Antibody Screen 08/01/19 08/01/19 08/01/19 06:56 06:56 06:56 WBC RBC Hgb Hct MCV MCH MCHC RDW Plt Count Neut % (Auto) Lymph % (Auto) [place] % (Auto) Eos % (Auto) Baso % (Auto) Neut # (Auto) Lymph # (Auto) [place] # (Auto) Eos # (Auto) Baso # (Auto) PT INR APTT VBG pH VBG pCO2 VBG pO2 VBG HCO3 VBG Total CO2 VBG O2 Saturation VBG Base Excess Sodium Potassium Chloride Carbon Dioxide BUN Creatinine Estimated GFR BUN/Creatinine Ratio Glucose Lactate 1.5 Calcium Phosphorus Magnesium Total Bilirubin AST ALT Alkaline Phosphatase Total Protein Albumin Globulin Albumin/Globulin Ratio Lipase < 10 L Ethyl Alcohol Ketones Blood Type A Positive Antibody Screen Negative 08/01/19 08/01/19 06:56 07:45 WBC RBC Hgb Hct MCV MCH MCHC RDW Plt Count Neut % (Auto) Lymph % (Auto) [place] % (Auto) Eos % (Auto) Baso % (Auto) Neut # (Auto) Lymph # (Auto) [place] # (Auto) Eos # (Auto) Baso # (Auto) PT INR APTT VBG pH 7.48 H VBG pCO2 39.2 L VBG pO2 34 L VBG HCO3 29 H VBG Total CO2 31 H VBG O2 Saturation 71 VBG Base Excess 6.0 H Sodium Potassium Chloride Carbon Dioxide BUN Creatinine Estimated GFR BUN/Creatinine Ratio Glucose Lactate Calcium Phosphorus 4.3 H Magnesium 1.9 Total Bilirubin AST ALT Alkaline Phosphatase Total Protein Albumin Globulin Albumin/Globulin Ratio Lipase Ethyl Alcohol Ketones 6.81 H Blood Type Antibody Screen Assessment & Plan Assessment & Plan narrative: Kristine Moon is a 64-year-old female with past medical history of diabetes, hypertension, hyperlipidemia, prior CVA, subdural hematoma, peptic ulcer disease (recently with endoscopy 04/2019), Cholecys tectomy complicated by biliary duct injury with prior stent placement who presented with nausea and possible brown vomiting for the past 2 days, subjective fever, and 1 day of epigastric abdominal pain who was admitted under observation status for possible upper GI bleeding. 1. Possible upper GI bleeding, acute -patient presented with change in her vomiting with possible coffee-grounds this morning. She has that history of peptic ulcer disease with recent endoscopy a few months ago at [place]. She has prescriptions for a PPI and sucralfate, however she is clear if she is still taking this. -etiology includes possible viral gastroenteritis that is resolving with a corresponding gastritis or Joyce-Cifuentes tear, previous peptic ulcer disease. -repeat h/h to see if Hg is decreasing, if stable can recheck in the morning, although I do expect a drop after receiving IV fluids. -continue IV PPI BID, okay for clear liquids at this time given no further emesis and that patient is well appearing but low threshold to restart NPO diet. -other etiology of abdominal pain and emesis may be mild DKA as noted below. 2. Diabetes, type 2, with long-term insulin use, with hyperglycemia, present on admission -patient did present with an elevated anion gap, elevated glucose in the 300s. However, there was no acidosis however this may be secondary to a metabolic alkalosis from her volume loss. She was given 4 units of regular insulin in the emergency room with improvement of her glucose as well as anion gap. This may represent 80 very mild diabetic ketoacidosis as she also has ketones. Lactate was also normal ruling out that as a cause of her elevated anion gap. -continue Lantus 8 units in the morning, with low-dose insulin sliding scale and fingersticks a.c. HS. 3. Leukocytosis, present on admission -patient does report a fever 2 days ago, but none since. Her elevated WBC count may be in the setting of mild DKA. She does have pneumobilia but this is chronic and there are no elevations in her LFTs. Chest x-ray is negative, and UA is pending given that she was recently treated for urinary tract infection. 4. Hypertension -will obtain and reconcile home medication list when returns but will resume as able given possible GI bleeding. 5. Chronic pancreatitis -seen on abdominal imaging before, however patient does not relate a history of pancreatitis. She has had multiple ERCPs however and this may be her source. She has no evidence of active disease currently, other than epigastric pain which can be in the setting of vomiting as noted above. Further evidence against active pancreatitis include a low lipase level. 6. Acute kidney injury, present on admission -patient with baseline creatinine of 0.9 and on admission creatinine was 1.34. -patient received adequate IV fluids, will encourage oral rehydration at this time. 7. HLD - hold home lipitor given pancreatitis. 8. Prior CVA - hold home asa given bleeding 9. Nausea / vomiting - - likely viral gastroenteritis as noted above. However other etiologies include mild DKA, PUD, acute on chronic pancreatitis. - EKG and troponin to rule out atypical presentation of [place] Code: Full, states significant other is surrogate decision maker, Pablo Dowd. Dispo: Admitted under observation status. If patient improves and tolerates diet she may be able to be discharged home later today or more likely tomorrow AM.
[2019-08-01 13:09] LABS: Alanine Aminotransferase 17 IU/L (<35); Albumin 3.4 g/dL (3.5-5.0); Albumin Globulin Ratio 1.1 (1.0-2.8); Alkaline Phosphatase 79 U/L (38-126); Aspartate Aminotransferase 27 IU/L (14-36); BUN Creatinine Ratio 29.5 (6-22); Bilirubin Total 0.6 mg/dL (0.2-1.3); Bilirubin Unconjugated 0.3 mg/dL (0.0-1.1); Blood Urea Nitrogen 38 mg/dL (7-17); Calcium 8.7 mg/dL (8.4-10.2); Carbon Dioxide 32 mmol/L (22-32); Chloride 94 mmol/L (98-107); Estimated Glomerular Filt Rate 41.7 mL/min (>60); Globulin 3.1 g/dL (1.7-4.1); Glucose 188 mg/dL (80-110); HEMOLYSIS < 15 (0-50); Magnesium 1.9 mg/dL (1.6-2.3); Potassium 3.9 mmol/L (3.4-5.1); Sodium 136 mmol/L (137-145); Total Protein 6.5 g/dL (6.3-8.2)
[2019-08-01 14:20] LABS: Troponin I 0.053 ng/mL (0.01-0.034)
[2019-08-01 14:30] LABS: Add Manual Diff / Slide Review NO; Basophils Absolute Auto 0 /uL (0-100); Basophils Percent Auto 0.3 % (0-2); Eosinophils Absolute Auto 0 /uL (0-450); Eosinophils Percent Auto 0.1 % (2-4); Hematocrit 35.4 % (36-46); Hemoglobin 11.4 g/dL (12.0-16.0); Lymphocytes Absolute Auto 1400 /uL (1100-4500); Lymphocytes Percent Auto 7.4 % (25-40); Mean Corpuscular HGB Conc 32.1 % (30-36); Mean Corpuscular Hemoglobin 29.7 PG (26-34); Mean Corpuscular Volume 92.7 fL (80-100); Monocytes Absolute Auto 1800 /uL (0-900); Monocytes Percent Auto 9.4 % (3-14); Neutrophils Absolute Auto 15400 /uL (1500-7000); Neutrophils Percent Auto 82.8 % (50-75); Platelet Count 414 X10^3/uL (150-400); Red Blood Cell Count 3.82 X10^6/uL (4.0-5.2); Red Cell Distribution Width 14.3 % (11.6-14.8); White Blood Cell Count 18.6 X10^3/uL (4.5-11.0)
[2019-08-01 15:03] LABS: Appearance Urine UA CLEAR; Bacteria Urine None Seen; Bilirubin Urine UA 1+ (NEGATIVE); Color Urine UA YELLOW; Glucose Urine UA TRACE g/dL (Negative); Ketones Urine UA 1+ (NEGATIVE); Leukocyte Esterase Urine UA NEGATIVE (NEGATIVE); Nitrite Urine UA NEGATIVE (Negative); Occult Blood Urine UA TRACE-LYSED (Negative); Protein Urine UA 3+ (Negative); Specific Gravity Urine UA 1.025 (1.000-1.035); Urobilinogen Urine UA 0.2 E.U./dL (0.2)
[2019-08-01 15:17] LABS: Culture Indicated Urine Cult Not Indicated; Hyaline Casts Urine 5-10/LPF; Ictotest Urine Positive (Negative); RBC Urine 1-5/HPF (0-5/HPF); Squamous Epithelial Cell Urine 5-10 /HPF (0-5/HPF); WBC Urine 1-5/HPF (0-5/HPF)
[2019-08-01] MEDS: INSULIN ASPART 100 UNIT/ML INSULN PEN SUBCUT (17:11)
[2019-08-01 20:46] LABS: Add Manual Diff / Slide Review NO; Basophils Absolute Auto 100 /uL (0-100); Basophils Percent Auto 0.5 % (0-2); Eosinophils Absolute Auto 0 /uL (0-450); Eosinophils Percent Auto 0.1 % (2-4); Hematocrit 28.4 % (36-46); Hemoglobin 9.2 g/dL (12.0-16.0); Lymphocytes Absolute Auto 2300 /uL (1100-4500); Lymphocytes Percent Auto 12.7 % (25-40); Mean Corpuscular HGB Conc 32.3 % (30-36); Mean Corpuscular Hemoglobin 29.6 PG (26-34); Mean Corpuscular Volume 91.4 fL (80-100); Monocytes Absolute Auto 1800 /uL (0-900); Monocytes Percent Auto 9.9 % (3-14); Neutrophils Absolute Auto 13900 /uL (1500-7000); Neutrophils Percent Auto 76.8 % (50-75); Platelet Count 334 X10^3/uL (150-400); Red Blood Cell Count 3.11 X10^6/uL (4.0-5.2); Red Cell Distribution Width 14.2 % (11.6-14.8); White Blood Cell Count 18.1 X10^3/uL (4.5-11.0)
[2019-08-01 21:09] LABS: Troponin I 0.059 ng/mL (0.01-0.034)
--- NOTE | 2019-08-01 22:21 | PC.NURSE ---
Pt with decreased H/H 02/14. Asymptomatic. IVF @75cc/hr via new PIV. NPO for now. Pt denies pain. Sleeping well when not disturbed. HR 81. BP 130/73
[2019-08-02] VITALS (7 sets, daily range): BP systolic 114–160; BP diastolic 55–82; PULSE 70–92; RESP 10–22; TEMP 36–37.2; O2SAT 95–99
[2019-08-02 05:03] LABS: Add Manual Diff / Slide Review NO; Basophils Absolute Auto 0 /uL (0-100); Basophils Percent Auto 0.2 % (0-2); Eosinophils Absolute Auto 0 /uL (0-450); Eosinophils Percent Auto 0.3 % (2-4); Hematocrit 27.3 % (36-46); Hemoglobin 8.8 g/dL (12.0-16.0); Lymphocytes Absolute Auto 2300 /uL (1100-4500); Lymphocytes Percent Auto 18.1 % (25-40); Mean Corpuscular HGB Conc 32.3 % (30-36); Mean Corpuscular Hemoglobin 29.8 PG (26-34); Mean Corpuscular Volume 92.3 fL (80-100); Monocytes Absolute Auto 1300 /uL (0-900); Monocytes Percent Auto 9.8 % (3-14); Neutrophils Absolute Auto 9300 /uL (1500-7000); Neutrophils Percent Auto 71.6 % (50-75); Platelet Count 299 X10^3/uL (150-400); Red Blood Cell Count 2.95 X10^6/uL (4.0-5.2); Red Cell Distribution Width 14.2 % (11.6-14.8); White Blood Cell Count 12.9 X10^3/uL (4.5-11.0)
[2019-08-02 05:09] LABS: Alanine Aminotransferase 11 IU/L (<35); Albumin 2.3 g/dL (3.5-5.0); Albumin Globulin Ratio 0.9 (1.0-2.8); Alkaline Phosphatase 63 U/L (38-126); Aspartate Aminotransferase 21 IU/L (14-36); BUN Creatinine Ratio 27.5 (6-22); Bilirubin Total 0.4 mg/dL (0.2-1.3); Bilirubin Unconjugated 0.4 mg/dL (0.0-1.1); Blood Urea Nitrogen 33 mg/dL (7-17); Carbon Dioxide 31 mmol/L (22-32); Chloride 98 mmol/L (98-107); Estimated Glomerular Filt Rate 45.4 mL/min (>60); Globulin 2.6 g/dL (1.7-4.1); Glucose 152 mg/dL (80-110); HEMOLYSIS < 15 (0-50); Magnesium 2.3 mg/dL (1.6-2.3); Potassium 3.6 mmol/L (3.4-5.1); Sodium 132 mmol/L (137-145); Total Protein 4.9 g/dL (6.3-8.2)
[2019-08-02 05:19] LABS: Troponin I 0.052 ng/mL (0.01-0.034)
[2019-08-02] MEDS: SODIUM CHLORIDE 0.9% 1,000 ML 75 ML IV ×3 (06:34→19:27)
[2019-08-02] MEDS: PANTOPRAZOLE 40 MG VIAL IV ×2 (08:52→22:04)
[2019-08-02] MEDS: INSULIN GLARGINE 100 UNIT/ML 3ML PEN 8 UNIT SUBCUT ×2 (08:53→22:05)
--- NOTE | 2019-08-02 09:05 | CM.DANOTE ---
Addendum entered by Anika Camarillo R.N. 08/02/19 13:01: Met with patient in her room during team rounds. She was laying in bed, pleasant, alert and oriented. She stated that [facility] has worked wonders with her at home, for she has been improving in her walking. Miguelito from [facility] confirmed that patient is receiving P.T, O.T, and nursing. Original Note: DCP: Case received, EMR reviewed and met with patient. Patient sleeping, but significant other, Pablo, was at bedside. Introduced self and role. He confirmed that he is also patient's DPOA, as well as daughter, Amelia. He was able to provide information regarding baseline activity, health, and living situation. DCP assessment completed with information currently available. Patient is a 64 year old female who admitted yesterday morning to the care of the hospitalist team. PCP: Dr. Streeter. Payer: confirmed: Medicare/Medicaid. Patient came to the hospital via private vehicle secondary to abdominal pain, emesis that was coffee ground colored. Patient has history of diabetes, as well as alcohol use. Patient holds current diagnosis of acute alcoholic pancreatitis, as well as mild DKA. She also has history of CVA, according to significant other, and is stated that she has smoking history, as well as cannabis use. Met with Pablo in patient's room. He stated that he is also caregiver for patient. Stated that she had recently been at [facility], and was just discharged on 's day. He stated that he and daughter, Amelia, hold patient's DPOA. Patient is currently under home health services with [facility]. Left Kay a message to confirm type of services that she is receiving, and how often. At this time, is unclear if patient has any Medicare days left, if she needed to go back to skilled. Patient uses a walker at home, and has history of falls. She also has life alert, that Pablo stated, was recently set up. He assists her with showers, have shower bars in the bathroom, drives her to appointments, and helps with meals. P: DCP to follow closely. Will discuss at team rounds, and will ask if P.T/O.T. can be ordered. Anika Camarillo RN/Producer Assistant
--- NOTE | 2019-08-02 12:29 | PM.PN.1 ---
Subjective Subjective Date Patient Seen: 08/02/19 Time Patient Seen: 12:29 Interval history: Kristine Moon is a 64-year-old female with past medical history of diabetes, hypertension, hyperlipidemia, prior CVA, subdural hematoma, peptic ulcer disease (recently with endoscopy 04/2019), Cholecystectomy complicated by biliary duct injury with prior stent placement who presented with nausea and possible brown vomiting for the past 2 days, subjective fever, and 1 day of epigastric abdominal pain. She was admitted under observation status, however her hemoglobin has continued to decline. She is still pending a stool guaiac. Hemoglobin of 11.8 on admission has now fallen to 8.8. She has been started on Protonix and is NPO at this time. Medications were able to be reconciled, and it appears she was not taking an oral PPI. Exam Vital Signs (past 8 hours): - 08/02/19 04:35 08/02/19 09:07 08/02/19 11:39 Temperature 97.3 F L 98.7 F 98.9 F Pulse Rate 92 H 88 82 Respiratory Rate 18 18 16 Blood Pressure 160/82 H 144/77 H 147/77 H Pulse Oximetry 99 99 97 Oxygen Delivery Method Room Air Oxygen Flow Rate 0 Narrative Exam Narrative: GENERAL APPEARANCE: Thin appearing elderly female in no acute distress. Appears mildly pale. SKIN: Inspection of the skin reveals no rashes, ulcerations or petechiae. HEENT: Normocephalic atraumatic, extraocular muscles are intact, oropharynx is clear and mucous membranes are moist, neck is supple without adenopathy NECK: Supple and symmetric. There was no thyroid enlargement, and no tenderness, or masses were felt. CHEST: Normal AP diameter and normal contour without any kyphoscoliosis. LUNGS: Auscultation of the lungs revealed no wheezes, rhonchi, or rales. CARDIOVASCULAR: There was a regular rate and rhythm without any murmurs, gallops, rubs. Peripheral pulses were 2+ and symmetric. ABDOMEN: Soft, mild epigastric tenderness. No ascites was noted. MUSCULOSKELETAL: There was no tenderness or effusions noted. Muscle strength and tone were normal. EXTREMITIES: No cyanosis, clubbing or edema. NEUROLOGIC: Alert and oriented x 3. Normal affect. Sensation to touch was normal. Objective Labs Result Diagrams: 08/02/19 04:30 08/02/19 04:30 Labs: Laboratory Results - last 24 hr 08/01/19 08/01/19 08/01/19 12:20 12:40 12:40 WBC RBC Hgb Hct MCV MCH MCHC RDW Plt Count Neut % (Auto) Lymph % (Auto) [place] % (Auto) Eos % (Auto) Baso % (Auto) Neut # (Auto) Lymph # (Auto) [place] # (Auto) Eos # (Auto) Baso # (Auto) Sodium 136 L Potassium 3.9 Chloride 94 L Carbon Dioxide 32 BUN 38 H Creatinine 1.29 H Estimated GFR 41.7 L BUN/Creatinine Ratio 29.5 H Glucose 188 H D Calcium 8.7 Magnesium 1.9 Total Bilirubin 0.6 Conjugated Bilirubin 0.0 Unconjugated Bilirubin 0.3 AST 27 ALT 17 Alkaline Phosphatase 79 Troponin I 0.053 H Total Protein 6.5 Albumin 3.4 L Globulin 3.1 Albumin/Globulin Ratio 1.1 Urine Color Urine Appearance Urine pH Ur Specific [place] Urine Protein Urine Glucose (UA) Urine Ketones Urine Occult Blood Urine Nitrate Urine Bilirubin Ur Bilirubin Confirm Urine Urobilinogen Ur Leukocyte Esterase Urine RBC Urine WBC Ur Squamous Epith Cells Urine Bacteria Hyaline Casts Ur Culture Indicated? Nasal Screen MRSA (PCR) Negative for mrsa 08/01/19 08/01/19 08/01/19 12:40 14:59 20:34 WBC 18.6 H 18.1 H RBC 3.82 L 3.11 L Hgb 11.4 L 9.2 L Hct 35.4 L 28.4 L MCV 92.7 91.4 MCH 29.7 29.6 MCHC 32.1 32.3 RDW 14.3 14.2 Plt Count 414 H 334 Neut % (Auto) 82.8 H 76.8 H Lymph % (Auto) 7.4 L 12.7 L [place] % (Auto) 9.4 9.9 Eos % (Auto) 0.1 L 0.1 L Baso % (Auto) 0.3 0.5 Neut # (Auto) 48866 H 21677 H Lymph # (Auto) 1400 2300 [place] # (Auto) 1800 H 1800 H Eos # (Auto) 0 0 Baso # (Auto) 0 100 Sodium Potassium Chloride Carbon Dioxide BUN Creatinine Estimated GFR BUN/Creatinine Ratio Glucose Calcium Magnesium Total Bilirubin Conjugated Bilirubin Unconjugated Bilirubin AST ALT Alkaline Phosphatase Troponin I Total Protein Albumin Globulin Albumin/Globulin Ratio Urine Color Yellow Urine Appearance Clear Urine pH 5.0 Ur Specific [place] 1.025 Urine Protein 3+ H Urine Glucose (UA) Trace H Urine Ketones 1+ H Urine Occult Blood Trace-lysed Urine Nitrate Negative Urine Bilirubin 1+ H Ur Bilirubin Confirm Positive H Urine Urobilinogen 0.2 Ur Leukocyte Esterase Negative Urine RBC 1-5/hpf D Urine WBC 1-5/hpf Ur Squamous Epith Cells 5-10 /hpf H Urine Bacteria None seen Hyaline Casts 5-10/lpf Ur Culture Indicated? Cult not indicated Nasal Screen MRSA (PCR) 08/01/19 08/02/19 08/02/19 20:34 04:30 04:30 WBC 12.9 H RBC 2.95 L Hgb 8.8 L Hct 27.3 L MCV 92.3 MCH 29.8 MCHC 32.3 RDW 14.2 Plt Count 299 Neut % (Auto) 71.6 Lymph % (Auto) 18.1 L [place] % (Auto) 9.8 Eos % (Auto) 0.3 L Baso % (Auto) 0.2 Neut # (Auto) 9300 H Lymph # (Auto) 2300 [place] # (Auto) 1300 H Eos # (Auto) 0 Baso # (Auto) 0 Sodium 132 L Potassium 3.6 Chloride 98 Carbon Dioxide 31 BUN 33 H Creatinine 1.20 H Estimated GFR 45.4 L BUN/Creatinine Ratio 27.5 H Glucose 152 H Calcium 8.0 L Magnesium 2.3 Total Bilirubin 0.4 Conjugated Bilirubin 0.0 Unconjugated Bilirubin 0.4 AST 21 ALT 11 Alkaline Phosphatase 63 Troponin I 0.059 H Total Protein 4.9 L Albumin 2.3 L Globulin 2.6 Albumin/Globulin Ratio 0.9 L Urine Color Urine Appearance Urine pH Ur Specific [place] Urine Protein Urine Glucose (UA) Urine Ketones Urine Occult Blood Urine Nitrate Urine Bilirubin Ur Bilirubin Confirm Urine Urobilinogen Ur Leukocyte Esterase Urine RBC Urine WBC Ur Squamous Epith Cells Urine Bacteria Hyaline Casts Ur Culture Indicated? Nasal Screen MRSA (PCR) 08/02/19 04:30 WBC RBC Hgb Hct MCV MCH MCHC RDW Plt Count Neut % (Auto) Lymph % (Auto) [place] % (Auto) Eos % (Auto) Baso % (Auto) Neut # (Auto) Lymph # (Auto) [place] # (Auto) Eos # (Auto) Baso # (Auto) Sodium Potassium Chloride Carbon Dioxide BUN Creatinine Estimated GFR BUN/Creatinine Ratio Glucose Calcium Magnesium Total Bilirubin Conjugated Bilirubin Unconjugated Bilirubin AST ALT Alkaline Phosphatase Troponin I 0.052 H Total Protein Albumin Globulin Albumin/Globulin Ratio Urine Color Urine Appearance Urine pH Ur Specific [place] Urine Protein Urine Glucose (UA) Urine Ketones Urine Occult Blood Urine Nitrate Urine Bilirubin Ur Bilirubin Confirm Urine Urobilinogen Ur Leukocyte Esterase Urine RBC Urine WBC Ur Squamous Epith Cells Urine Bacteria Hyaline Casts Ur Culture Indicated? Nasal Screen MRSA (PCR) Assessment & Plan Assessment & Plan narrative: Kristine Moon is a 64-year-old female with past medical history of diabetes, hypertension, hyperlipidemia, prior CVA, subdural hematoma, peptic ulcer disease (recently with endoscopy 04/2019), Cholecystectomy complicated by biliary duct injury with prior stent placement who presented with nausea and possible brown vomiting for the past 2 days, subjective fever, and 1 day of epigastric abdominal pain who was admitted under observation status for possible upper GI bleeding. 1. Acute blood loss anemia, present on admission, active -patient presented with change in her vomiting with possible coffee-grounds. She has that history of peptic ulcer disease with recent endoscopy a few months ago at [facility]. She has prescriptions for a PPI and sucralfate however no PPI on her medication list. She appears to be taking sucralfate only. -etiology includes possible viral gastroenteritis that is resolving with a corresponding gastritis or Joyce-Cifuentes tear, previous peptic ulcer disease. Tbili is normal and not consistent with hemolysis. Differential does include lower GI bleeding. -Hg has fallen from 11.8 > 8.8 today, continue to trend, a component of her presenting h/h is likely due to dehydration. -continue IV PPI BID, NPO for now, resume clears if h/h is stable -other etiology of abdominal pain and emesis on admission may be mild DKA as noted below. -consider surgical consultation if continued decline, did discuss today with solution design and analysis manager surgeon and would not scope at this point. 2. Diabetes, type 2, with long-term insulin use, with hyperglycemia, present on admission -patient did present with an elevated anion gap, elevated glucose in the 300s. However, there was no acidosis however this may be secondary to a metabolic alkalosis from her volume loss. She was given 4 units of regular insulin in the emergency room with improvement of her glucose as well as anion gap. This may represent a very mild diabetic ketoacidosis as she also has ketones. Lactate was also normal ruling out that as a cause of her elevated anion gap. -continue Lantus 8 units BID, with low-dose insulin sliding scale and fingersticks a.c. HS. 3. Leukocytosis, present on admission -patient does report a fever 2 days ago, but none since. Her elevated WBC count may be in the setting of mild DKA. She does have pneumobilia but this is chronic and there are no elevations in her LFTs. Chest x-ray is negative, and UA was unremarkable for infection. 4. Hypertension -home amlodipine 2.5, hydralazine 20 mg BID, and lisinopril 30 mg daily. Will hold for now given possible GI bleeding. BPs currently are in the 140s. 5. Chronic pancreatitis -seen on abdominal imaging before, however patient does not relate a history of pancreatitis in the past. She has had multiple ERCPs after bile duct injury in the past and this may be her source. She has no evidence of active disease currently, other than epigastric pain which can be in the setting of vomiting as noted above. Further evidence against active pancreatitis include a low lipase level. 6. Acute kidney injury, present on admission -patient with baseline creatinine of 0.9 and on admission creatinine was 1.34. Improved to 1.2 today. -patient received adequate IV fluids, will encourage oral rehydration at this time. 7. HLD - hold home lipitor given pancreatitis on abdominal imaging. 8. Prior CVA - hold home asa given bleeding, lipitor held as well. 9. Nausea / vomiting, improved - - possibly viral etiology, mild DKA, PUD, acute on chronic pancreatitis. - EKG and troponin were negative for evidence of ischemia. She did have mild troponinemia to 0.059 but downtrended. Code: Full, states significant other is surrogate decision maker, Pablo Dowd. Dispo: Patient changed to inpatient status for persistent Hg decline.
--- NOTE | 2019-08-02 15:02 | PT.IIE ---
Surgical History (Last Reviewed 07/23/19 @ 04:58 by Bruce Nguyễn DO) No pertinent past surgical history (Acute) Medical History (Last Reviewed 08/01/19 @ 06:48 by Brown Gonsales DO) CVA (cerebral vascular accident) (Acute) Diabetes (Acute) Gallbladder disease (Chronic) Hypertension (Acute) Physical Therapy Inpatient Evaluation/Re-Eval M1 PT/OT-IP Prior Functional Status Start: 08/02/19 11:47 Freq: NEEDED Status: Active Protocol: Document 08/02/19 14:30 AW (Rec: 08/02/19 15:02 AW [id number]) Medical Review Prior Functional Status Medical History Reviewed Yes Diet/Fluid Consistency NPO Communication Pt is an effective verbal communicator. She has history of CVA and subdural hematoma. Unable to determine if any known cognitive impairments resulting from those events. Mobility and Gait Pt reports she is modified independent with quad cane and 4WW. She states she could walk around [facility] with her cane. Activities of Daily Living and IADL's Pt states she is independent with all dressing, shower, and toileting tasks without the use of any modifications other than a shower chair. However, per CM notes, pt's partner Pablo, states he assists with showers, drives her to appointments, and helps with meals Social History Household Members significant other Living Arrangements House Number of Floors (Floors) One Floor Number of Stairs To Enter/Railing? 1 JOSE with no railing but house can be contacted on the right side (ascending) for support if needed. Home Environment Standard Height Toilet Home Equipment Four Wheel Walker,Quad Cane, Shower Seat with Backrest,Hand Held Shower,Grab Bars In Shower Additional Social History Comment Pt lives with her partner, Pablo, who works maritime officer at [employer]. While he is gone , she is home alone though she notes her neighbor, Altaf, and Pablo's sister check in on her occasionally. M2 PT-IP Current Condition Start: 08/02/19 11:47 Freq: NEEDED Status: Active Protocol: Document 08/02/19 14:30 AW (Rec: 08/02/19 15:02 AW [id number]) Physical Therapy Current Condition Current Condition Evaluation Date 08/02/19 Treatment Diagnosis acute anemia, possible upper GI bleed, weakness, difficulty walking Onset Date 08/01/2019 M3 PT-IP Subjective Start: 08/02/19 11:47 Freq: NEEDED Status: Active Protocol: Document 08/02/19 14:30 AW (Rec: 08/02/19 15:02 AW [id number]) Subjective Physical Therapy Visit Type Type Initial Evaluation Visit Start Time 13:57 Visit Stop Time 14:23 Total Visit Minutes 26 Physical Therapy Visit Comments Patient Comments Pt willing to participate with PT Patient Goals Pt hopes to return home with resumed home health Therapy Pain Assessment Pain When Pain Assessed At Rest Pain Present Pain Present Denied Pain M4 PT-IP Mobility and Gait Start: 08/02/19 11:47 Freq: NEEDED Status: Active Protocol: Document 08/02/19 14:30 AW (Rec: 08/02/19 15:02 AW [id number]) PT-Bed Mobility Assessment Rolling Type of Rolling Roll to Left Level of Assist Standby Assistance Supine to Sit Supine to Sit Standby Assistance Scooting Scooting to Edge of Bed Standby Assistance PT-Transfer Assessment Sit to and From Stand Sit to and from Stand Contact Guard Assistance,Use of Upper Extremities Equipment Transfer Assistive Device Gait Belt,Front Wheeled Walker Orthotic/Prosthetic Devices or Brace: No Transfers Transfer Destination Chair Transfer Technique Stand Step Pivot Transfer Ability Level of Assist Contact Guard Assistance Comments Mobility Comments Pt completed bed mobility SBA and sat EOB without UE support , good seated balance. She stood using FWW CGA for slight unsteadiness and transferred to chair CGA using FWW. She was positioned in the chair with call light and all needs within reach. BP prior to activity was 144/103 HR 97. BP sitting after activity was 142/70 HR 92. Gait Assessment Gait Gait Assistance Required: Contact Guard Assist Distance (Feet) 10 Able to Maintain Weight Bearing Status Yes During Gait Assistive Devices Assistive Device Gait Belt,Front Wheeled Walker Orthotic/Prosthetic Devices or Brace: No Gait Deviations General Gait Pattern Antalgic,Decreased Stride Length,Decreased Feet Clearance,Flexed Trunk,Narrow Based Gait Factors Limiting Gait Function Factors Limiting Gait Function Decreased Activity Tolerance, Decreased Strength,Poor Balance,Poor Safety Awareness Comments Gait Comments Pt ambulated ~10 feet in the room with FWW CGA, requiring cues to keep walker closer to her trunk and to keep the walker with her during turns and transfers. Stair Climbing Assessment Comments Stair Climbing Comments Not assessed. PT-Balance Assessment Sitting Balance and Reactions Static Sitting Balance Ability Good Dynamic Sitting Balance Ability Good Standing Balance and Reactions Static Standing Balance Ability Fair Dynamic Standing Balance Ability Fair Device Used FWW M5 PT-IP Objective Assessments Start: 08/02/19 11:47 Freq: NEEDED Status: Active Protocol: Document 08/02/19 14:30 AW (Rec: 08/02/19 15:02 AW [id number]) Orientation Orientation/Cognition Level of Alertness Alert Orientation Name,Date,Day of Week,Place, Situation Language Function Ability No Deficits Noted Safety Awareness Decreased Safety Awareness Comments Pt alert and oriented but vague in some details of history. She required cues for walker and line management due to decreased safety awareness. Gross Range of Motion Lower Extremity ROM Assessment Within Functional Limits Strength Lower Extremity Strength Assessment Bilaterally Impaired Hip 4-/5 Knee 4-/5 Ankle 4/5 Comments Strength Comments Strength was symmetrical Coordination Assessment Gross Coordination Gross Coordination WNL Sensation Assessment Sensation Gross Sensation WNL Muscle Tone Muscle Tone WNL Yes M6 PT-IP Treatment Start: 08/02/19 11:47 Freq: NEEDED Status: Active Protocol: Document 08/02/19 14:30 AW (Rec: 08/02/19 15:02 AW [id number]) Physical Therapy Treatment Education Education Provided Precautions,Safety M7 PT-IP Assessment and Plan Start: 08/02/19 11:47 Freq: NEEDED Status: Active Protocol: Document 08/02/19 14:30 AW (Rec: 08/02/19 15:02 AW [id number]) PT Summary Assessment and Plan Potential Rehabilitation Potential Good Status of Condition at Evaluation Stable Summary Impairments Strength,Balance,Cognition,Bed Mobility,Transfers,Gait, Activity Tolerance Assessment Summary Monserrat is a 64 yo woman admitted with acute anemia due to possible upper GI bleed. She has history of CVA and subdural hematoma but it is unclear is she had any residual deficits. She had a recent stay at [facility] following a fall and was discharged on 07/03/19. At baseline, pt requires standby assist with showers and ambulates modified independent with quad cane or 4WW. On evaluation, she required CGA for transfers and demonstrated poor safety awareness requiring cues and assist for safe use of FWW and line management. She will likely be safe to discharge home with increased mcc support and resumption of home health services. PT will continue to assess and refine discharge recommendation. Goals Bed Mobility Goal Independent Transfer Goal Independent,Four Wheeled Walker Gait Goal Independent,Four Wheel Walker Gait Distance 150 Other Goals - up/down platform step without railing and with least restrictive assistive device SBA Days to Meet Goals 5 Frequency of Treatment Frequency Of Treatment Once a Day Treatment Plan Physical Therapy Treatment Plan Bed Mobility Training,Transfer Training,Gait Training, Therapeutic Exercise,Balance Retraining,Discharge Planning, Hot or Cold Pack,Neuromuscular Re-ed Other Recommendations and Next Treatment transfers and ambulation Focus Recommendations To Nursing Amount of Assist Needed 1 Person Assist Discharge Recommendations PT Discharge Recommendations Home with Assistance,Home Health Transportation Needs at Discharge Private Vehicle
[2019-08-02 16:22] LABS: Add Manual Diff / Slide Review NO; Basophils Absolute Auto 0 /uL (0-100); Basophils Percent Auto 0.2 % (0-2); Eosinophils Absolute Auto 0 /uL (0-450); Eosinophils Percent Auto 0.1 % (2-4); Hematocrit 29.2 % (36-46); Hemoglobin 9.6 g/dL (12.0-16.0); Lymphocytes Absolute Auto 700 /uL (1100-4500); Lymphocytes Percent Auto 4.9 % (25-40); Mean Corpuscular Hemoglobin 31.6 PG (26-34); Mean Corpuscular Volume 95.8 fL (80-100); Monocytes Absolute Auto 700 /uL (0-900); Monocytes Percent Auto 4.4 % (3-14); Neutrophils Absolute Auto 13700 /uL (1500-7000); Neutrophils Percent Auto 90.4 % (50-75); Platelet Count 196 X10^3/uL (150-400); Red Blood Cell Count 3.05 X10^6/uL (4.0-5.2); Red Cell Distribution Width 14.6 % (11.6-14.8); White Blood Cell Count 15.2 X10^3/uL (4.5-11.0)
[2019-08-03] VITALS (20 sets, daily range): BP systolic 118–187; BP diastolic 67–95; PULSE 64–89; RESP 12–24; TEMP 36.4–37.1; O2SAT 96–100
--- NOTE | 2019-08-03 01:09 | PC.NURSE ---
Addendum entered by Rafa Ram R.N. 08/03/19 07:04: 0700: KCL 40mEq given. Pt c/o chest pain. RT notified and coming to do EKG. Benja VEGA also notified. Addendum entered by Rafa Ram R.N. 08/03/19 06:30: 0625: Benja VEGA notified of 0300 low blood sugar and of this mornings K+ reported by lab of 2.7. New orders are to hold this dose of sliding scale insulin, and give KCL 40 mEq po. Addendum entered by Rafa Ram R.N. 08/03/19 06:21: 0300: CBG 49. Pt given Ensure Clear juice to drink. 0600: CBG 216. Original Note: [employer] Note: 0030: Awake, resting in bed. Vital signs stable. CBG 114. IV in place in rt finger. Remains on telemetry.
[2019-08-03 05:14] LABS: Add Manual Diff / Slide Review NO; Basophils Absolute Auto 0 /uL (0-100); Basophils Percent Auto 0.3 % (0-2); Eosinophils Absolute Auto 100 /uL (0-450); Eosinophils Percent Auto 0.7 % (2-4); Hematocrit 24.6 % (36-46); Lymphocytes Absolute Auto 1900 /uL (1100-4500); Mean Corpuscular HGB Conc 32.7 % (30-36); Mean Corpuscular Hemoglobin 30.3 PG (26-34); Mean Corpuscular Volume 92.5 fL (80-100); Monocytes Absolute Auto 700 /uL (0-900); Monocytes Percent Auto 9.3 % (3-14); Neutrophils Absolute Auto 5000 /uL (1500-7000); Neutrophils Percent Auto 64.7 % (50-75); Platelet Count 264 X10^3/uL (150-400); Red Blood Cell Count 2.65 X10^6/uL (4.0-5.2); Red Cell Distribution Width 14.2 % (11.6-14.8); White Blood Cell Count 7.7 X10^3/uL (4.5-11.0)
[2019-08-03 05:22] LABS: Alanine Aminotransferase 12 IU/L (<35); Albumin 2.2 g/dL (3.5-5.0); Albumin Globulin Ratio 0.8 (1.0-2.8); Alkaline Phosphatase 54 U/L (38-126); Aspartate Aminotransferase 28 IU/L (14-36); BUN Creatinine Ratio 22.7 (6-22); Bilirubin Total 0.3 mg/dL (0.2-1.3); Bilirubin Unconjugated 0.3 mg/dL (0.0-1.1); Blood Urea Nitrogen 20 mg/dL (7-17); Calcium 7.6 mg/dL (8.4-10.2); Carbon Dioxide 30 mmol/L (22-32); Chloride 103 mmol/L (98-107); Estimated Glomerular Filt Rate > 60.0 mL/min (>60); Globulin 2.7 g/dL (1.7-4.1); Glucose 164 mg/dL (80-110); HEMOLYSIS < 15 (0-50); Sodium 133 mmol/L (137-145); Total Protein 4.9 g/dL (6.3-8.2)
[2019-08-03 05:36] LABS: Potassium 2.7 mmol/L (3.4-5.1)
[2019-08-03] MEDS: POTASSIUM CHLORIDE 20 MEQ TAB 40 MEQ PO (06:53)
[2019-08-03] MEDS: NITROGLYCERIN 0.4 MG SL TAB SL ×6 (07:25→14:40)
[2019-08-03] MEDS: MORPHINE 2 MG/ML INJ (07:52)
[2019-08-03] MEDS: MORPHINE 2 MG/ML INJ IV ×4 (08:09→14:39)
[2019-08-03 08:24] LABS: INR 0.9 (0.9-1.3); Prothrombin Time 10.1 SECONDS (10.1-12.7)
[2019-08-03 08:27] LABS: Creatine Kinase 44 U/L (30-135); PTT Partial Thromboplastin Tim 26 SECONDS (26.4-36.2)
[2019-08-03] MEDS: PANTOPRAZOLE 40 MG VIAL IV ×2 (08:29→21:07)
[2019-08-03 08:30] LABS: Troponin I 0.038 ng/mL (0.01-0.034)
[2019-08-03] MEDS: INSULIN GLARGINE 100 UNIT/ML 3ML PEN 8 UNIT SUBCUT (08:34)
[2019-08-03 08:40] LABS: Troponin I 0.033 ng/mL (0.01-0.034)
[2019-08-03] MEDS: SODIUM CHLORIDE 0.9% 1,000 ML 75 ML IV (08:49)
--- NOTE | 2019-08-03 09:53 | PC.NURSE ---
Addendum entered by Giorgio Enriquez R.N. 08/03/19 15:29: Pt again c/o CP 9/[address] Wolf notified and orders received for ntg, morphine, O2, troponin, and transfuse 2 units PRBCs. Pt rec'd ntg x3 and 2 doses of morphine with only mild improvement in pain level. Dr. Wolf instructs to administer PRBCs per order. Dr. Wolf notified of UOP 175 this shift. Will monitor. Original Note: Rec'd pt laying in bed AAO x 3 with c/o r side chest pain radiating to back. She rates the pain as 10/10 and sharp. EKG and VS obtained and Dr. Wolf notified of pt c/o chest pain with EKG results and VS. Orders received for SL NTG, morphine, O2 and repeat EKG after interventions. Pt was given ntg SL x3 as well as morphine x3 with CP decreasing to 7/10 evaluated 5 minutes post 3rd morphine dose. Pt states she feels like she could go to sleep at this point and appears quite drowsy. Pt able to rest and on f/u at 0900, pt reports complete relief of CP. VSS. Pt removed O2 and remains 98-100% on RA. Placed call light in reach and bed alarm on. Instructed pt to call for any further CP or concerns and prior to getting OOB. She verbalizes understanding.
--- NOTE | 2019-08-03 11:53 | OT.IP.EVAL ---
Past Medical History (Last Reviewed 08/01/19 @ 06:48 by Brown Gonsales DO) CVA (cerebral vascular accident) (Acute) Diabetes (Acute) Gallbladder disease (Chronic) Hypertension (Acute) Surgical History (Last Reviewed 07/23/19 @ 04:58 by Bruce Nguyễn DO) No pertinent past surgical history (Acute) Occupational Therapy Inpatient Evaluation/Re-Eval M1 PT/OT-IP Prior Functional Status Start: 08/03/19 12:21 Freq: NEEDED Status: Active Protocol: Document 08/03/19 11:35 [facility] (Rec: 08/03/19 12:50 [facility] [id number]) Medical Review Prior Functional Status Medical History Reviewed Yes Diet/Fluid Consistency NPO Communication Pt is an effective verbal communicator. She has history of CVA and subdural hematoma. Unable to determine if any known cognitive impairments resulting from those events. Mobility and Gait Pt reports she is modified independent with quad cane and 4WW. She states she could walk around [facility] with her cane. Activities of Daily Living and IADL's Pt states she is independent with all dressing, shower, and toileting tasks without the use of any modifications other than a shower chair. However, per CM notes, pt's partner Pablo, states he assists with showers, drives her to appointments, and helps with meals, finances and medications. Pt states makes a sandwich or has soup with Pablo is at work. Social History Household Members significant other Living Arrangements House Number of Floors (Floors) One Floor Number of Stairs To Enter/Railing? 1 JOSE with no railing but house can be contacted on the right side (ascending) for support if needed. Home Environment Standard Height Toilet Home Equipment Four Wheel Walker,Quad Cane, Shower Seat with Backrest,Hand Held Shower,Grab Bars In Shower Additional Social History Comment Pt lives with her partner, Pablo, who works fork operator at [employer]. While he is gone , she is home alone though she notes her neighbor, Altaf, and Pablo's sister check in on her occasionally. M2 OT-IP Current Condition Start: 08/03/19 12:21 Freq: Status: Active Protocol: Document 08/03/19 11:35 [facility] (Rec: 08/03/19 12:50 [facility] [id number]) Occupational Therapy Current Condition Current Condition Evaluation Date 08/03/19 Treatment Diagnosis Acute anemia Diagnosis Onset Date 08/02/19 Weight Bearing Status Weight Bearing Status Weight Bear as Tolerated M3 OT- IP Subjective and Pain Start: 08/03/19 12:21 Freq: Status: Active Protocol: Document 08/03/19 11:35 [facility] (Rec: 08/03/19 12:50 [facility] [id number]) OT- Subjective Occupational Therapy Visit Type Type Initial Evaluation Visit Start Time 11:35 Visit Stop Time 11:53 Total Visit Minutes 18 Occupational Therapy Visit Comments Patient Comments Initially pt refusing to get out of bed, however when [employer] DRIVER states that pt having to use the BSC and then was agreeable to get up with OT for OT eval . Patient/Caregiver Goals To go home. OT Pain Assessment Pain When Pain Assessed At Rest Pain Present Pain Present Denied Pain M4 OT- IP ADL's Start: 08/03/19 12:21 Freq: Status: Active Protocol: Document 08/03/19 11:35 [facility] (Rec: 08/03/19 12:50 [facility] [id number]) OT ADL-Grooming Comments OT Grooming Comments Not performed. OT ADL-Dressing General Eval Lower Body Dressing Ability Standby Assistance Comments OT Dressing Comments SBA while pt able to bravo/doff socks and brief while sitting on the BSC. OT ADL-Toileting General Evaluation Toileting Ability Standby Assistance Comments OT Toileting Comments SBA mainly for set-up of wipes . OT ADL-Bathing Comments OT Bathing Comments Pt states too tired at this time. M5 OT- IP IADL's Start: 08/03/19 12:21 Freq: Status: Active Protocol: Document 08/03/19 11:35 [facility] (Rec: 08/03/19 12:50 [facility] [id number]) OT-Instrumental Activities of Daily Living Home Safety Awareness Home Safety Comments Pt able to answer all home safety situations with good accuracy what to do in case of a fire, stranger at the door, someone asking for credit card information, and what to do if the toilet floods. Medication Management Medication Management Caregiver Administers Money Management Money Management Caregiver Provides Assistance Audio Specialist Audio Specialist Caregiver Provides Assist Driving Driving Caregiver Provides Assist M6 OT- IP Functional Cognition Start: 08/03/19 12:21 Freq: Status: Active Protocol: Document 08/03/19 11:35 [facility] (Rec: 08/03/19 12:50 [facility] [id number]) Cognitive Factors Limiting Selfcare Function Cognitive Ability Level of Alertness Alert,Confusional State Patient Orientation Name,Place,Situation Attention Span Ability Capable of Focused Attention, Capable of Sustained Attention Ability to Follow Commands Able to Follow One Step Commands Memory Description Short Term Impaired Cognitive Comments Cognitive Assessment Comments When therapist stepped out of the room to talk to nursing and when coming back, pt did not recall that therapist was the same person and preceded to said, the OT was just here but I did not want to get up as I was too tired. However, pt also just given Morphine earlier due to chest pain. Nursing states okay to work with pt. Pt however able to follow directions appropriately to use the commode and answer all home safety appropriately. OT- Vision and Hearing OT- Hearing Assessment OT- Hearing Assessment WFL OT- Vision Assessment Visual Acuity Glasses For Reading M7 OT- IP Mobility and Balance Start: 08/03/19 12:21 Freq: Status: Active Protocol: Document 08/03/19 11:35 [facility] (Rec: 08/03/19 12:50 [facility] [id number]) OT- Bed Mobility Assessment Rolling Type of Rolling Roll to Left Level of Assistance Independent Supine to Sit Supine to Sit Assist Independent Sit to Supine Sit to Supine Assist Independent OT-Transfer Assessment Sit to and From Stand Sit to and from Stand Standby Assistance Transfers Transfer Ability Standby Assistance Technique Transfer Destination Bed,Bedside Commode Transfer Technique Stand Step Pivot Devices Transfer Assistive Devices Gait Belt Comments Mobility Comments Pt able to independently get into and out of the bed and SBA for stand pivot to the from the commode, mainly assist to help manage all the hospital lines for the pt. OT- Balance Assessment Sitting Balance and Reactions Static Sitting Balance Ability Normal Dynamic Sitting Balance Ability Good Standing Balance and Reactions Static Standing Balance Ability Good M8 OT- IP Objective Assessments Start: 08/03/19 12:21 Freq: Status: Active Protocol: Document 08/03/19 11:35 [facility] (Rec: 08/03/19 12:50 [facility] [id number]) OT Gross Range of Motion Upper Extremity Range of Motion Assessment Left Impaired ROM Impairments Pt from elbow to distal mostly WFL. Pt has swollen left and difficulty to close her hand all the way. Pt unable to lift her left shoulder up against gravity. Pt has history of left proximal humerus fracture 07/17/2017. OT Strength Upper Extremity Strength Assessment Left Impaired OT-Muscle Tone Assessment Muscle Tone WNL Yes M9 OT- IP Assessment and Plan Start: 08/03/19 12:21 Freq: Status: Active Protocol: Document 08/03/19 11:35 [facility] (Rec: 08/03/19 12:50 [facility] [id number]) OT Summary Assessment and Plan Potential Rehabilitation Potential Good Analytic Complexity at Evaluation Low Summary OT Impairments Functional Mobility,Grooming, Dressing,Toileting,Bathing, Toilet Transfers,Shower Transfers,Activity Tolerance Progress Towards Goals Slow Progress due to Medical Issues,Slow Progress due to Activity Tolerance Assessment Summary Pt low complexity and main barrier is decreased activity tolerance and feeling tired. Pt's Hgb 8.0 and Hct 24.6 at this time. Pt lives with who assists pt when not at work, otherwise pt has a neighbor and 's sister that check on her occasionally. Suggest home with assist when medically stable. Goals Self-Feeding Goal Independent Grooming Goal Independent Dressing Goal Independent Toileting Goal Independent Bathing Goal Standby Assistance Toilet Transfer Goal Independent Shower Transfer Goal Standby Assistance Days to Meet Goals 7 Frequency of Treatment Frequency Of Treatment Once a Day Treatment Plan OT Treatment Plan ADL Training,Functional Mobility,Patient/Family Education,Discharge Planning Other Treatment Recommendations and Next Standing for grooming, toilet Treatment Focus in the bathroom. Discharge Recommendations OT Discharge Recommendations Home with Assistance Transportation Needs at Discharge Private Vehicle
--- NOTE | 2019-08-03 14:18 | DI.ECHO.S_ITS ---
[place] +---------+ [facility] +---------+ : : [address] : : : : [id number] : : : : Phone: [phone] Echocardiogram Report + + :Name: KIMBERLY BONILLA Study Date: 08/04/2019 Height: 63 in : :[facility] Weight: 143 lb : : Gender: Female BSA: 1.7 m2 : :: 1955 Age: 64 yrs BP: 156/84 mmHg: :Reason For Study: Acute TN : :Ordering Physician: Emilie : :Hospitalist Performed By: Juju Rosado : :Referring: AUBRIE BELTRÁN : + + Interpretation Summary Sinus bradycardia; heart rate is 50-60 bpm. Normal LV size and mild concentric LVH. There is mild distal septal and mid- anteroseptal hypokinesis. EF is 50-55%. Stage I diastolic dysfunction. There is mild MAC. Aortic sclerosis with mild associated AI. Compared to prior study 08/12/2017 no significant changes have occurred. Procedure: A two-dimensional transthoracic echocardiogram with color flow and Doppler was performed. There is no prior echocardiogram noted for this patient. The study quality was technically adequate. The patient was in normal sinus rhythm during the exam. Left Ventricle: The left ventricle is normal in size. Left ventricular wall thickness is mildly increased. Proximal septal thickening is noted. The ejection fraction is estimated to be 50-55%. Right Ventricle: The right ventricle is normal in size and function. Atria: The left atrium is borderline dilated. Right atrial size is normal. The interatrial septum is intact with no evidence for an atrial septal defect. Mitral Valve: The mitral valve is normal in structure and function. There is mild mitral annular calcification. There is mild mitral regurgitation. Aortic Valve: The aortic valve is trileaflet. The aortic valve opens well. There is no aortic valve stenosis. There is mild aortic regurgitation. Tricuspid Valve: The tricuspid valve is normal in structure and function. There is trace tricuspid regurgitation. The right ventricular systolic pressure is estimated to be at least 22 mmHg based on an estimated right atrial pressure of 3 mm Hg. Pulmonic Valve: The pulmonic valve is normal in structure and function. There is trace pulmonic regurgitation. Great Vessels: The aortic root is normal size. The aortic root is mildly dilated. The ascending aorta could not be visualized. The IVC is of normal diameter and collapses greater than 50% with a sniff. This suggests a low right atrial pressure of 3 mm Hg. Pericardium/ Pleura There is no pericardial effusion. There is no pleural effusion. MMode/2D Measurements & Calculations LVIDd: 4.6 cm LVOT diam: 2.0 cm LVIDs: 3.2 cm Ao root diam: 3.8 cm FS: 30.8 % Ao Arch Diam (Prox Trans): 2.6 cm EPSS: 1.4 cm IVSd: 1.2 cm LVPWd: 1.1 cm LV barrios. diameter/BSA (cm/m^2): 2.7 LV sys. diameter/BSA (cm/m^2): 1.9 LA A2 area: 22.3 cm2 RA long axis: 5.0 cm LA A4 area: 14.7 cm2 RA area: 12.5 cm2 LA length (vol): 5.0 cm RA vol: 26.4 ml LA vol: 56.0 ml RA : 15.8 ml/m2 LA vol index: 33.4 ml/m2 IVC diam: 1.7 cm RVD1 (basal): 2.1 cm TAPSE: 2.0 cm Doppler Measurements & Calculations Ao V2 max: 131.8 cm/sec LVOT Max Krunal: 114.8 cm/sec Ao V2 mean: 93.5 cm/sec LV V1 max P.3 mmHg Ao max P.0 mmHg LV V1 VTI: 24.2 cm Ao mean P.9 mmHg ARETHA(I,D): 2.6 cm2 Ao V2 VTI: 28.5 cm ARETHA(V,D): 2.7 cm2 sev ratio: 0.85 ARETHA indexed to BSA (cm^2/m^2): 1.6 AI P1/2t: 846.4 msec AI dec slope: 158.9 cm/sec2 MV E max krunal: 62.4 cm/sec TR max krunal: 217.2 cm/sec MV A max krunal: 122.7 cm/sec TR max P.9 mmHg MV E/A: 0.51 PA V2 max: 75.4 cm/sec Med Peak E' Krunal: 3.4 cm/sec PA V2 mean: 51.6 cm/sec E/E' med: 18.5 PA mean P.2 mmHg Lat Peak E' Krunal: 5.3 cm/sec PA pr(Accel): 26.1 mmHg E/E' lat: 11.8 E/e' average: 15.2 MV dec time: 0.21 sec MV P1/2t: 64.1 msec MV P1/2t max krunal: 63.3 cm/sec SV(LVOT): 75.2 ml MVA(P12t): 3.4 cm2 Electronically signed by: Isidra Zheng M.D. on Reading Physician:08/04/2019 12:52 PM
[2019-08-03] MEDS: DEXTROSE 50 % IN WATER 25 GM/50 ML SYRINGE IV ×3 (14:31→21:07)
[2019-08-03 14:41] LABS: Add Manual Diff / Slide Review NO; Basophils Absolute Auto 0 /uL (0-100); Basophils Percent Auto 0.3 % (0-2); Eosinophils Absolute Auto 0 /uL (0-450); Eosinophils Percent Auto 0.4 % (2-4); Hematocrit 27.1 % (36-46); Hemoglobin 8.7 g/dL (12.0-16.0); Lymphocytes Absolute Auto 2200 /uL (1100-4500); Lymphocytes Percent Auto 25.6 % (25-40); Mean Corpuscular HGB Conc 32.1 % (30-36); Mean Corpuscular Hemoglobin 29.9 PG (26-34); Monocytes Absolute Auto 700 /uL (0-900); Monocytes Percent Auto 8.5 % (3-14); Neutrophils Absolute Auto 5600 /uL (1500-7000); Neutrophils Percent Auto 65.2 % (50-75); Platelet Count 299 X10^3/uL (150-400); Red Blood Cell Count 2.92 X10^6/uL (4.0-5.2); Red Cell Distribution Width 14.5 % (11.6-14.8); White Blood Cell Count 8.6 X10^3/uL (4.5-11.0)
[2019-08-03 14:44] LABS: Creatine Kinase 43 U/L (30-135)
[2019-08-03 14:57] LABS: Troponin I 0.023 ng/mL (0.01-0.034)
[2019-08-03] MEDS: ONDANSETRON 4 MG/2 ML INJ IV (15:39)
--- NOTE | 2019-08-03 16:44 | PT-IP ANOTE ---
Checked on pt three times today. On first and second attempts, nitro was being administered for acute chest pain. On third attempt, pt was vomiting and about to receive blood transfusion. PT will follow up morning of 08/04/19.
--- NOTE | 2019-08-03 17:59 | P.PN_ITS ---
Subjective Subjective Date Patient Seen: 08/03/19 Interval history: Patient is a 64-year-old female with a history of hypertension hyperlipidemia type 2 diabetes admitted to the hospital after having dark- colored emesis. The patient did have a drop in her hemoglobin and hematocrit. Today she complained of substernal chest pain. The pain did not radiate. Is not associated with shortness of breath. Her hemoglobin was 8. At 1 point her EKG showed some ST T wave abnormalities. Her cardiac enzymes were unremarkable. Patient is currently getting 2 units of packed RBCs. Plans are underway for an upper endoscopy to evaluate for upper GI bleeding. Patient has had 1 stool, that was guaiac positive Exam Vital Signs (past 8 hours): - 08/03/19 11:00 08/03/19 14:07 08/03/19 14:24 Temperature 98.4 F Pulse Rate 73 72 76 Respiratory Rate 16 Blood Pressure 139/80 126/79 119/68 Pulse Oximetry 99 08/03/19 14:40 08/03/19 16:57 08/03/19 17:32 Temperature 98.1 F 98.2 F Pulse Rate 78 69 68 Respiratory Rate 12 14 Blood Pressure 118/67 120/77 120/77 Pulse Oximetry 100 08/03/19 17:46 Temperature 98.0 F Pulse Rate 70 Respiratory Rate 14 Blood Pressure 123/88 Pulse Oximetry Oxygen Delivery Method Room Air Oxygen Flow Rate 0 Narrative Exam Narrative: Pale ill-appearing female lying in bed Lungs: Clear to auscultation Cardiac exam: Regular rate and rhythm normal S1-S2 with a 2/6 systolic ejection murmur Abdomen: Soft nontender nondistended Extremities: No edema Objective Labs Result Diagrams: 08/03/19 14:20 08/03/19 04:50 Labs: Laboratory Results - last 24 hr 08/01/19 08/03/19 08/03/19 06:56 04:50 04:50 WBC 7.7 RBC 2.65 L Hgb 8.0 L Hct 24.6 L MCV 92.5 D MCH 30.3 MCHC 32.7 RDW 14.2 Plt Count 264 Neut % (Auto) 64.7 D Lymph % (Auto) 25.0 D [place] % (Auto) 9.3 Eos % (Auto) 0.7 L Baso % (Auto) 0.3 Neut # (Auto) 5000 Lymph # (Auto) 1900 [place] # (Auto) 700 Eos # (Auto) 100 Baso # (Auto) 0 PT INR APTT Sodium 133 L Potassium 2.7 L* Chloride 103 Carbon Dioxide 30 BUN 20 H Creatinine 0.88 Estimated GFR > 60.0 BUN/Creatinine Ratio 22.7 H Glucose 164 H Calcium 7.6 L Magnesium 2.0 Total Bilirubin 0.3 Conjugated Bilirubin 0.0 Unconjugated Bilirubin 0.3 AST 28 ALT 12 Alkaline Phosphatase 54 Total Creatine Kinase CK-MB (CK-2) CK-MB (CK-2) Rel Index Troponin I Total Protein 4.9 L Albumin 2.2 L Globulin 2.7 Albumin/Globulin Ratio 0.8 L Blood Type A Positive Antibody Screen Negative Crossmatch See Detail 08/03/19 08/03/19 08/03/19 04:50 07:43 07:43 WBC RBC Hgb Hct MCV MCH MCHC RDW Plt Count Neut % (Auto) Lymph % (Auto) [place] % (Auto) Eos % (Auto) Baso % (Auto) Neut # (Auto) Lymph # (Auto) [place] # (Auto) Eos # (Auto) Baso # (Auto) PT 10.1 INR 0.9 APTT 26 L D Sodium Potassium Chloride Carbon Dioxide BUN Creatinine Estimated GFR BUN/Creatinine Ratio Glucose Calcium Magnesium Total Bilirubin Conjugated Bilirubin Unconjugated Bilirubin AST ALT Alkaline Phosphatase Total Creatine Kinase 44 CK-MB (CK-2) TNP CK-MB (CK-2) Rel Index TNP Troponin I 0.038 H 0.033 Total Protein Albumin Globulin Albumin/Globulin Ratio Blood Type Antibody Screen Crossmatch 08/03/19 08/03/19 14:20 14:20 WBC 8.6 RBC 2.92 L Hgb 8.7 L Hct 27.1 L MCV 93.0 MCH 29.9 MCHC 32.1 RDW 14.5 Plt Count 299 Neut % (Auto) 65.2 Lymph % (Auto) 25.6 [place] % (Auto) 8.5 Eos % (Auto) 0.4 L Baso % (Auto) 0.3 Neut # (Auto) 5600 Lymph # (Auto) 2200 [place] # (Auto) 700 Eos # (Auto) 0 Baso # (Auto) 0 PT INR APTT Sodium Potassium Chloride Carbon Dioxide BUN Creatinine Estimated GFR BUN/Creatinine Ratio Glucose Calcium Magnesium Total Bilirubin Conjugated Bilirubin Unconjugated Bilirubin AST ALT Alkaline Phosphatase Total Creatine Kinase 43 CK-MB (CK-2) TNP CK-MB (CK-2) Rel Index TNP Troponin I 0.023 Total Protein Albumin Globulin Albumin/Globulin Ratio Blood Type Antibody Screen Crossmatch Assessment & Plan Assessment & Plan narrative: 64-year-old female admitted to the hospital with dark colored emesis, question upper GI bleed -patient had a significant drop in her hemoglobin from 11-8 -no further evidence of bleeding, no melena or bright red blood per rectum, 1 guaiac-positive stool last night -given her cardiac risk factors chest pain, and EKG changes will transfuse 2 units -as her cardiac enzymes are negative anticipate EGD to look for source of bleeding -will recheck hemoglobin and hematocrit -continue proton pump inhibitor Chest pain -EKG showed some hyperdynamic ST changes in V2 V3 -cardiac enzymes negative -will transfuse -await cardiac echo -no intervention at this time given possible upper GI bleed Hypertension -continue on low Hypokalemia -will Type 2 diabetes -patient hypoglycemic earlier today -will decrease her Lantus -continue sliding scale Discharge home depending on EGD finding
--- NOTE | 2019-08-03 20:17 | P.CONS_ITS ---
History of Present Illness Consult details Date Patient Seen: 08/03/19 Time Patient Seen: 20:17 Chief complaint: possible stomach bleeding Reason for consult: upper gi bleed Requesting provider: Eliana Wolf Narrative: The patient is a 64-year-old woman who was admitted with a history of dark brown emesis and chest pain developed. Her chest 50 pain is felt to be related to anemia from her GI bleed causing ischemic heart symptoms. His not felt that she has had an IN. It is felt that this would resolve with tra nsfusion. I was asked to see her regarding her intestinal bleeding. She denies having had this before. She denies any abdominal pain. She told me that she has not vomited today but affect the nurse reports that she had some very dark emesis but not coffee-ground emesis. She had a guaiac positive stool yesterday. It apparently however was not black. Meds Home Medications and Allergies Home Medications Medication Instructions Recorded Confirmed Type Marijuana 1 ea INHALATION DAILY 10/08/17 08/02/19 History atorvastatin 40 mg PO QPM 10/08/17 08/02/19 History cholecalciferol (vitamin D3) 3,000 unit PO DAILY 10/08/17 08/02/19 History [Vitamin D3] insulin aspart U-100 [Novolog 1 dose SUBCUT QIDACHS 10/08/17 08/02/19 History Flexpen U-100 Insulin] pen needle, diabetic 10/30/17 08/02/19 History mirtazapine 15 mg PO BEDTIME 02/19/18 08/02/19 History aspirin 325 mg PO DAILY 07/25/18 08/02/19 History insulin glargine [Basaglar KwikPen 8 unit SUBCUT BID 02/20/19 08/02/19 History U-100 Insulin] amlodipine 2.5 mg PO DAILY 08/02/19 08/02/19 History cyanocobalamin (vitamin B-12) 1,000 mcg PO DAILY 08/02/19 08/02/19 History hydralazine 20 mg PO BID 08/02/19 08/02/19 History lisinopril 30 mg PO DAILY 08/02/19 08/02/19 History mirabegron [Myrbetriq] 25 mg PO DAILY 08/02/19 08/02/19 History oxybutynin chloride 5 mg PO BEDTIME 08/02/19 08/02/19 History sucralfate 1 g PO QID 08/02/19 08/02/19 History tizanidine 2 mg PO Q8H PRN 08/02/19 08/02/19 History Allergies Allergy/AdvReac Type Severity Reaction Status Date / Time Iodine and Iodide Containing Allergy Unknown Verified 04/12/19 19:14 Produc [IODINE AND IODIDE CONTAINING PRODUC] latex [LATEX] Allergy Unknown Verified 04/12/19 19:14 Review of Systems Review of Systems Narrative: No cough or cold at this time. No bloody bowel movements. She has not had a bowel movement today. No seizures or blackouts. She does suffer from hypertension. She is a diabetic. Exam Vital Signs (past 8 hours): - 08/03/19 14:07 08/03/19 14:24 08/03/19 14:40 Temperature Pulse Rate 72 76 78 Respiratory Rate Blood Pressure 126/79 119/68 118/67 Pulse Oximetry 08/03/19 16:57 08/03/19 17:32 08/03/19 17:46 Temperature 98.1 F 98.2 F 98.0 F Pulse Rate 69 68 70 Respiratory Rate 12 14 14 Blood Pressure 120/77 120/77 123/88 Pulse Oximetry 100 08/03/19 19:48 08/03/19 20:03 Temperature 98.7 F 98.6 F Pulse Rate 66 64 Respiratory Rate 24 14 Blood Pressure 152/77 H 148/71 H Pulse Oximetry 100 Oxygen Delivery Method Room Air Oxygen Flow Rate 0 Narrative Exam Narrative: Thin very pale woman in no apparent distress. Lungs are clear to auscultation no rales or rhonchi could percussion heart regular rate and rhythm no murmur gallop no bruit in the neck there are no masses in the neck or supraclavicular areas no nodes abdomen is soft and doughy no obvious hernias no tenderness no guarding Objective Labs Result Diagrams: 08/03/19 14:20 08/03/19 04:50 Labs: Laboratory Results - last 24 hr 08/01/19 08/03/19 08/03/19 06:56 04:50 04:50 WBC 7.7 RBC 2.65 L Hgb 8.0 L Hct 24.6 L MCV 92.5 D MCH 30.3 MCHC 32.7 RDW 14.2 Plt Count 264 Neut % (Auto) 64.7 D Lymph % (Auto) 25.0 D [place] % (Auto) 9.3 Eos % (Auto) 0.7 L Baso % (Auto) 0.3 Neut # (Auto) 5000 Lymph # (Auto) 1900 [place] # (Auto) 700 Eos # (Auto) 100 Baso # (Auto) 0 PT INR APTT Sodium 133 L Potassium 2.7 L* Chloride 103 Carbon Dioxide 30 BUN 20 H Creatinine 0.88 Estimated GFR > 60.0 BUN/Creatinine Ratio 22.7 H Glucose 164 H Calcium 7.6 L Magnesium 2.0 Total Bilirubin 0.3 Conjugated Bilirubin 0.0 Unconjugated Bilirubin 0.3 AST 28 ALT 12 Alkaline Phosphatase 54 Total Creatine Kinase CK-MB (CK-2) CK-MB (CK-2) Rel Index Troponin I Total Protein 4.9 L Albumin 2.2 L Globulin 2.7 Albumin/Globulin Ratio 0.8 L Blood Type A Positive Antibody Screen Negative Crossmatch See Detail 08/03/19 08/03/19 08/03/19 04:50 07:43 07:43 WBC RBC Hgb Hct MCV MCH MCHC RDW Plt Count Neut % (Auto) Lymph % (Auto) [place] % (Auto) Eos % (Auto) Baso % (Auto) Neut # (Auto) Lymph # (Auto) [place] # (Auto) Eos # (Auto) Baso # (Auto) PT 10.1 INR 0.9 APTT 26 L D Sodium Potassium Chloride Carbon Dioxide BUN Creatinine Estimated GFR BUN/Creatinine Ratio Glucose Calcium Magnesium Total Bilirubin Conjugated Bilirubin Unconjugated Bilirubin AST ALT Alkaline Phosphatase Total Creatine Kinase 44 CK-MB (CK-2) TNP CK-MB (CK-2) Rel Index TNP Troponin I 0.038 H 0.033 Total Protein Albumin Globulin Albumin/Globulin Ratio Blood Type Antibody Screen Crossmatch 08/03/19 08/03/19 14:20 14:20 WBC 8.6 RBC 2.92 L Hgb 8.7 L Hct 27.1 L MCV 93.0 MCH 29.9 MCHC 32.1 RDW 14.5 Plt Count 299 Neut % (Auto) 65.2 Lymph % (Auto) 25.6 [place] % (Auto) 8.5 Eos % (Auto) 0.4 L Baso % (Auto) 0.3 Neut # (Auto) 5600 Lymph # (Auto) 2200 [place] # (Auto) 700 Eos # (Auto) 0 Baso # (Auto) 0 PT INR APTT Sodium Potassium Chloride Carbon Dioxide BUN Creatinine Estimated GFR BUN/Creatinine Ratio Glucose Calcium Magnesium Total Bilirubin Conjugated Bilirubin Unconjugated Bilirubin AST ALT Alkaline Phosphatase Total Creatine Kinase 43 CK-MB (CK-2) TNP CK-MB (CK-2) Rel Index TNP Troponin I 0.023 Total Protein Albumin Globulin Albumin/Globulin Ratio Blood Type Antibody Screen Crossmatch Assessment & Plan Assessment & Plan narrative: Patient with anemia chest pain felt related to that anemia with a possible upper GI source of her bleeding. I recommended an EGD will probably do this in conjunction with anesthesia. I have discussed the procedure with her including risks of bleeding, perforation heart problems I would like her transfusions to be completed and a stable crit before a subject her to an endoscopy. That process is underway. I presume her potassium is being corrected as it is quite low.
--- NOTE | 2019-08-03 23:16 | PC.NURSE ---
Patient is alert but very forgetful, bed alarm is on. Emesis x1 100ml, dark brown. Voided only 200, SALES DEPARTMENT MANAGER aware. Received 2 units PRBCs. Room air. No complaints of chest pain for evening. NPO, two low blood sugars that responded well to 25ml dextrose. Asked SALES DEPARTMENT MANAGER for continuous D5,1/2 to help manage sugars, awaiting order. EGD planned for tomorrow.
[2019-08-03 23:30] LABS: Add Manual Diff / Slide Review NO; Basophils Absolute Auto 0 /uL (0-100); Basophils Percent Auto 0.3 % (0-2); Eosinophils Absolute Auto 100 /uL (0-450); Hemoglobin 11.6 g/dL (12.0-16.0); Lymphocytes Absolute Auto 2100 /uL (1100-4500); Lymphocytes Percent Auto 25.4 % (25-40); Mean Corpuscular HGB Conc 33.4 % (30-36); Mean Corpuscular Hemoglobin 30.1 PG (26-34); Monocytes Absolute Auto 700 /uL (0-900); Monocytes Percent Auto 8.9 % (3-14); Neutrophils Absolute Auto 5300 /uL (1500-7000); Neutrophils Percent Auto 64.4 % (50-75); Platelet Count 274 X10^3/uL (150-400); Red Blood Cell Count 3.85 X10^6/uL (4.0-5.2); White Blood Cell Count 8.2 X10^3/uL (4.5-11.0)
[2019-08-03 23:38] LABS: Hematocrit 34.7 % (36-46)
[2019-08-03 23:41] LABS: BUN Creatinine Ratio 16.7 (6-22); Blood Urea Nitrogen 14 mg/dL (7-17); Calcium 7.9 mg/dL (8.4-10.2); Carbon Dioxide 29 mmol/L (22-32); Chloride 106 mmol/L (98-107); Estimated Glomerular Filt Rate > 60.0 mL/min (>60); Glucose 73 mg/dL (80-110); HEMOLYSIS < 15 (0-50); Potassium 3.2 mmol/L (3.4-5.1); Sodium 137 mmol/L (137-145)
[2019-08-04] VITALS (13 sets, daily range): BP systolic 111–169; BP diastolic 59–87; PULSE 64–87; RESP 11–18; TEMP 36.2–37.1; O2SAT 90–100; BMI 27.3
--- NOTE | 2019-08-04 | PATH_ITS ---
[facility] Accession Number: [id number] . 01 Material submitted: . PART A: esophagus, E-G Junction - GE JUNCTION PART B: esophagus - ESOPHAGEAL BIOPSY . 01 Clinical history: . POSSIBLE STOMACH BLEEDING . 02 Diagnosis: A. Gastroesophageal Junction, Biopsy: Squamocolumnar junctional mucosa with specialized intestinal metaplasia; please see comment. Negative for dysplasia and malignancy. . B. Esophagus, Biopsy: Predominantly fibrinopurulent exudate/ulcer. Fragment of proximal gastric-type mucosa with no diagnostic abnormality. No fungal organisms or specialized intestinal metaplasia identified on AB/PAS stain. Negative for dysplasia or malignancy. [facility] 08/06/2019 1452 Local . 02 Comment: A) The findings in the GE junction biopsy would be consistent with Barretts esophagus in the appropriate endoscopic setting. . 02 Electronically signed: . Jonathon Gray MD, PhD, Pathologist NPI- [id number] . 01 Gross description: . Part A: GE JUNCTION: Received in formalin are 4 fragment(s) of ceron, soft tissue measuring 0.1 x 0.1 x 0.1 cm to 0.2 x 0.2 x 0.2 cm submitted entirely in 1 cassette(s) Part B: ESOPHAGEAL BIOPSY: Received in formalin are 2 fragment(s) of ceron, soft tissue measuring 0.1 x 0.1 x 0.1 cm to 0.2 x 0.2 x 0.1 cm submitted entirely in 1 cassette(s) [place] [place]20192027 Local . 02 Microscopic: . A. An Alcian blue stain is performed to evaluate for specialized intestinal metaplasia, and highlights a focus of goblet cells. A control stain shows appropriate reactivity. . B. No fungal organisms or goblet cells are identified on an AB/PAS stain. A control stain shows appropriate reactivity. . 02 Pathologist provided ICD-10: K22.70, K20.9 . 02 CPT . 060111, [id number], [id number], [id number] Performed at: 01 [facility] [address] [address], [place], [place] [id number] MD Landon Grier MD Phone: [phone] Performed at: 02 [facility] [address] [place], [place] [id number] MD Nasima Correia MD Phone: [phone]
[2019-08-04] MEDS: MORPHINE 2 MG/ML INJ IV (00:54)
[2019-08-04] MEDS: DEXTROSE 5%-0.45% NS 1,000 ML 100 ML IV (01:15)
--- NOTE | 2019-08-04 01:49 | PC.NURSE ---
Night Notes-0000 CBG 61, gave patient oj, attempt to page Martín VEGA, rechecked CBG=57, called Kelly VEGA via cell phone, received order to start D5 1/2NS @ 100ml/hr, patient denies lightheadedness, she is calm but forgetful and c/o back pain, IV morphine given with effect.
[2019-08-04 04:46] LABS: Add Manual Diff / Slide Review NO; Basophils Absolute Auto 0 /uL (0-100); Basophils Percent Auto 0.4 % (0-2); Eosinophils Absolute Auto 100 /uL (0-450); Hematocrit 32.8 % (36-46); Hemoglobin 10.9 g/dL (12.0-16.0); Lymphocytes Absolute Auto 1900 /uL (1100-4500); Lymphocytes Percent Auto 25.4 % (25-40); Mean Corpuscular HGB Conc 33.1 % (30-36); Mean Corpuscular Hemoglobin 29.9 PG (26-34); Mean Corpuscular Volume 90.2 fL (80-100); Monocytes Absolute Auto 800 /uL (0-900); Neutrophils Absolute Auto 4700 /uL (1500-7000); Neutrophils Percent Auto 63.2 % (50-75); Platelet Count 247 X10^3/uL (150-400); Red Blood Cell Count 3.64 X10^6/uL (4.0-5.2); Red Cell Distribution Width 16.1 % (11.6-14.8); White Blood Cell Count 7.5 X10^3/uL (4.5-11.0)
[2019-08-04 04:51] LABS: Alanine Aminotransferase 15 IU/L (<35); Albumin 2.2 g/dL (3.5-5.0); Albumin Globulin Ratio 0.8 (1.0-2.8); Alkaline Phosphatase 59 U/L (38-126); Aspartate Aminotransferase 31 IU/L (14-36); BUN Creatinine Ratio 15.5 (6-22); Bilirubin Total 1.2 mg/dL (0.2-1.3); Bilirubin Unconjugated 1.3 mg/dL (0.0-1.1); Blood Urea Nitrogen 13 mg/dL (7-17); Calcium 7.7 mg/dL (8.4-10.2); Carbon Dioxide 29 mmol/L (22-32); Chloride 105 mmol/L (98-107); Estimated Glomerular Filt Rate > 60.0 mL/min (>60); Globulin 2.8 g/dL (1.7-4.1); Glucose 202 mg/dL (80-110); HEMOLYSIS < 15 (0-50); Magnesium 1.8 mg/dL (1.6-2.3); Potassium 3.4 mmol/L (3.4-5.1); Sodium 134 mmol/L (137-145)
[2019-08-04] MEDS: INSULIN ASPART 100 UNIT/ML INSULN PEN SUBCUT (05:50)
[2019-08-04] MEDS: INSULIN GLARGINE 100 UNIT/ML 3ML PEN 8 UNIT SUBCUT (09:18)
[2019-08-04] MEDS: PANTOPRAZOLE 40 MG VIAL IV (09:19)
--- NOTE | 2019-08-04 10:29 | PC.NURSE ---
Addendum entered by Giorgio Enriquez R.N. 08/04/19 13:15: Rec'd pt to room 228 from PACU s/p EGD. Pt was assisted from stretcher to bed with CGA and slow/steady gait. Denies pain. VSS. RA. SR on bedside monitor. Per order, pt able to have clear liquids and is requesting apple juice and chicken broth. Will monitor. Original Note: Pt transferred from bed to w/c with SBA. Escorted to pre-op area by RN at 1028 in no apparent distress. Bedside report given. Reported pt is diabetic with frequent hypoglycemic episodes.
--- NOTE | 2019-08-04 11:02 | PM.PREOP ---
Pre-operative Note Interval Note History & Physical reviewed/Exam performed by Physician: Yes Changes to H&P: Yes H&P completed within 30 days and has changed as indicated here:: Hematocrit markedly improved post transfusion. Patient asymptomatic. ASA Class (for procedural sedation): III
[2019-08-04] MEDS: LIDOCAINE 4% SOLN 50 ML 20 ML TOP (11:20)
[2019-08-04] MEDS: fentaNYL 250 MCG/5 ML INJ IV (11:42)
--- NOTE | 2019-08-04 11:42 | PM.OP.ENDO ---
Operative Date/Time/Diagnoses Date of procedure: 08/04/19 Time of procedure: 11:42 Pre-op diagnosis: Upper GI bleed Post-op diagnosis: same (Severe esophageal mucosal ischemia with deformed duodenum) Procedure & Clinicians Study performed: EGD with cold biopsy Same procedure as scheduled: Yes Indications: Determine cause of upper GI bleed/hematemesis Surgeon: Cruz Serrano Procedure Notes SCOAP/Timeout: Performed Procedure in detail: The patient is placed in left lateral decubitus position underwent IV sedation directed by the surgeon consisting of fentanyl and Versed. A bite block was inserted and the scope was advanced through it into the esophagus under direct vision. The esophagus was normal to lay reach the distal 3rd. There was circumferential fibrinous exudate and areas that appeared ischemic from here to the GE junction. There was fleshy growth at the GE junction suggesting inflammation or possibly tumor. It however was quite soft. The stomach insufflated well. The GE junction was noted at 30 6 cm from the incisors. The stomach was unremarkable. There were no ulcers seen there was no blood in the stomach the duodenal bulb was quite deformed the pyloric channel was widely patent. I could actually not negotiate out of the 1st part of the duodenum. I could not dilate the intestine enough to find the lumen. I do not know if this is because of primary duodenal pathology or perhaps due to the patient's alcoholic pancreatitis causing a mass effect adjacent to the duodenum. In any event after trying to repeatedly to negotiate through the bulb into the 2nd part of the duodenum I finally abandoned the attempt. The scope was brought back into the stomach and retroflexed. There was a small hiatal hernia seen from below. The scope was straightened and brought up through to the distal esophagus. I biopsied the fleshy appearing area just below the GE junction and then biopsied the esophagus. The mucosa was covered in a blankenship issue exudate and there were streaks of dark material suggesting ischemia. The scope was removed and the patient tolerated the procedure well. No blood was seen in the upper tract at this time. Scope withdrawal time: Not applicable Sedation minutes: 18 Findings: other findings (Esophagitis suggesting ischemia. Biopsies taken. Deformed duodenum. Unable to get outside of the 1st part of the duodenum) Specimen(s): other (Biopsies near the GE junction and of the esophagus) Complications: none Post-procedure Recommendations: Continue medication(s) (Recommend double doses proton pump inhibitor for at least 12 weeks and a repeat EGD at that time.) and Other recommendation (Consider evaluation of her duodenum with a CT scan and a upper GI. I would wait a week or 2 for her to recover from this episode of bleeding) Plan for aftercare: Follow up with her primary care provider more acutely and with me in a month. Follow up: months (One) Disposition: PACU
[2019-08-04] MEDS: MIDAZOLAM 5 MG/5 ML VIAL IV (11:43)
--- NOTE | 2019-08-04 13:36 | PT-IP ANOTE ---
Unavailable pt scheduled for EGD @ 7248. Will check back with pt later today or tomorrow morning.
--- NOTE | 2019-08-04 13:37 | OT.IP.TRT ---
Surgery Performed Operation Date: 08/04/19 13:45 Actual Procedures p Esophagogastroduodenoscopy w/biopsy - Cruz Serrano MD Occupational Therapy Treatment Note M2 OT-IP Current Condition Start: 08/03/19 12:21 Freq: Status: Active Protocol: Document 08/03/19 11:35 [facility] (Rec: 08/03/19 12:50 [facility] [id number]) Occupational Therapy Current Condition Current Condition Evaluation Date 08/03/19 Treatment Diagnosis Acute anemia Diagnosis Onset Date 08/02/19 Weight Bearing Status Weight Bearing Status Weight Bear as Tolerated M3 OT- IP Subjective and Pain Start: 08/03/19 12:21 Freq: Status: Active Protocol: Document 08/04/19 13:31 [facility] (Rec: 08/04/19 13:37 [facility] [id number]) OT- Subjective Occupational Therapy Visit Type Type Administrative Note Visit Start Time 09:10 Notes Attempted to see pt for self care tasks but she adamantly declined stating she was too tired. Attempted later but pt out of room at EGD.
--- NOTE | 2019-08-04 13:38 | P.DS_ITS ---
History of Present Illness History of Present Illness Chief complaint: possible stomach bleeding Narrative: Kristine Moon is a 64-year-old female with past medical history of diabetes, hypertension, hyperlipidemia, prior CVA, subdural hematoma, peptic ulcer disease (recently with endoscopy 04/2019), Cholecystectomy complicated by biliary duct injury with prior stent placement who presented with nausea and possible brown vomiting for the past 2 days, subjective fever, and 1 day of epigastric abdominal pain. Patient states that she has been nauseous and having clear emesis for the past 2 days. did measure her temperature and it was reportedly 102.8 a couple of days ago but has not been elevated since. She had a recent ER presentation with similar symptoms and was diagnosed with a urinary tract infection and was discharged on oral cephalexin on July 22. She came into the emergency room today because her vomiting became more dark and possibly coffee-ground in nature and began developing a dull epigastric abdominal pain. Her pain does not radiate, but she does complain of a back ache as well. It does not seem to be better or worse with anything. She states her glucoses have been elevated in the 270s for the past couple of days at home, and she has been taking her usual dose of 8 units of Lantus in the morning. She denies any chest pain, cough, shortness of breath, recent sick contacts, muscle aches or joint pains, lower extremity edema. She denies any dysuria or urinary frequency. In the emergency room, patient was afebrile, mildly hypertensive, and tachycardic. She was saturating well on room air. Laboratory evaluation was notable for a WBC of 20.6, hemoglobin of 11.8 (increased from prior ED visit), platelet 463. VBG showed a pH of 7.48, pCO2 of 39. Chemistries initially showed an anion gap 19, glucose of 302, positive ketones, negative lipase, and normal hepatic function testing. Troponin was not obtained but is currently pending. Initial CT abdomen pelvis showed evidence chronic pancreatitis, but no active pancreatitis as well as pneumobilia which is present on prior abdominal CTs. Chest x-ray was negative. EKG was not obtained but is currently pending. Patient was given a small dose of regular insulin, 4 units, as well as fluids, and her anion gap closed upon repeat evaluation on the floor. Patient was admitted under observation status for likely mild DKA on admission that quickly resolved and possible upper GI bleeding. Discharge Providers Provider Date of admission: 08/02/19 14:10 Discharge Date: 08/04/19 Primary care physician: Jyoti Sloan MD Consults: 08/02/19 11:44 Consult to Occupational Therapy Evaluate & Treat Comment: Physician Instructions: Evaluate and treat Consult to Physical Therapy Evaluate & Treat Comment: Physician Instructions: Evaluate and Treat Discharge provider: Harsh Huber MD Summary Hospital Course Discharge Diagnosis: 1. Acute blood loss anemia secondary to upper GI bleed 2. Severe esophagitis 3. Hypertension 4. Diabetes insulin dependent 5. Acute chest pain, cardiac source, secondary to anemia Hospital Course: Patient was admitted due to GI bleed. She dropped her hemoglobin from 11 down to 8 and got transfused 2 units PRBC. Her hemoglobin on a.m. of discharge is 10.9. Dr. Serrano was consulted and performed upper endoscopy which showed changes of severe esophagitis and appearance of esophageal ischemia in the distal 3rd of the esophagus. He did not see any gastric ulcers. He also was unable to advance the scope into the 2nd portion of the duodenum due to duodenal deformity. He thought possibly patient has duodenal deformity secondary to previous history of pancreatitis. Patient quit smoking and drinking any alcohol a few months ago. Patient is stable for discharge. She needs to stay on twice daily PPI for at least the next [address] Serrano recommended a CT scan and barium upper GI in a couple of weeks to further evaluate the duodenal deformity. The studies can be scheduled through PCP. Dr. Serrano would like to see patient in a month for follow-up. Patient has history of CVA a couple of years ago. I lowered her aspirin dose from 325 mg down to 81 mg daily to reduce risk of GI bleed. Patient had episode of acute chest pain in hospital with mild nonspecific ST-T wave changes. She had negative serial troponin. The chest pain was thought secondary to severe anemia and she had no further incidence after her gonzalez sfusions. Her echo showed LVEF 50-55%, mild MAC, aortic sclerosis with mild associated AI, stage I diastolic dysfunction, and mild distal septal and mid anteroseptal hypokinesis. There was no change in comparison to echo study 08/12/2017. Patient is on appropriate treatments with statin, antihypertensive, and as noted above aspirin was changed to 81 mg daily. Status at Discharge Cognitive/behavioral status at discharge: oriented Functional status at discharge: independent ambulation Overall status at discharge: patient is back to baseline Time Spent with Patient Time spent: Greater than 30 minutes Exam Vital Signs (past 8 hours): - 08/04/19 08:12 08/04/19 10:20 08/04/19 10:39 Temperature 97.6 F 98.0 F Pulse Rate 66 66 68 Respiratory Rate 16 16 16 Blood Pressure 156/84 H 138/75 151/87 H Pulse Oximetry 100 99 99 08/04/19 11:47 08/04/19 11:50 08/04/19 11:53 Temperature 97.2 F L Pulse Rate 76 73 73 Respiratory Rate 13 12 12 Blood Pressure 123/73 122/69 120/75 Pulse Oximetry 91 92 90 L 08/04/19 11:56 08/04/19 12:05 08/04/19 12:21 Temperature Pulse Rate 67 67 87 Respiratory Rate 14 13 15 Blood Pressure 121/71 120/68 111/59 L Pulse Oximetry 92 92 94 08/04/19 12:25 08/04/19 13:00 08/04/19 13:07 Temperature 98.1 F 98.7 F Pulse Rate 72 65 67 Respiratory Rate 15 12 18 Blood Pressure 142/73 H 126/65 169/79 H Pulse Oximetry 92 94 98 Oxygen Delivery Method Room Air Oxygen Flow Rate 0 Objective Labs Result Diagrams: 08/04/19 04:25 08/04/19 04:25 Labs: Laboratory Results - last 24 hr 08/01/19 08/03/19 08/03/19 06:56 14:20 14:20 WBC 8.6 RBC 2.92 L Hgb 8.7 L Hct 27.1 L MCV 93.0 MCH 29.9 MCHC 32.1 RDW 14.5 Plt Count 299 Neut % (Auto) 65.2 Lymph % (Auto) 25.6 [place] % (Auto) 8.5 Eos % (Auto) 0.4 L Baso % (Auto) 0.3 Neut # (Auto) 5600 Lymph # (Auto) 2200 [place] # (Auto) 700 Eos # (Auto) 0 Baso # (Auto) 0 Sodium Potassium Chloride Carbon Dioxide BUN Creatinine Estimated GFR BUN/Creatinine Ratio Glucose Calcium Magnesium Total Bilirubin Conjugated Bilirubin Unconjugated Bilirubin AST ALT Alkaline Phosphatase Total Creatine Kinase 43 CK-MB (CK-2) TNP CK-MB (CK-2) Rel Index TNP Troponin I 0.023 Total Protein Albumin Globulin Albumin/Globulin Ratio Blood Type A Positive Antibody Screen Negative Crossmatch See Detail 08/03/19 08/03/19 08/04/19 23:20 23:20 04:25 WBC 8.2 7.5 RBC 3.85 L 3.64 L Hgb 11.6 L 10.9 L Hct 34.7 L 32.8 L MCV 90.0 D 90.2 MCH 30.1 29.9 MCHC 33.4 33.1 RDW 16.0 H 16.1 H Plt Count 274 247 Neut % (Auto) 64.4 63.2 Lymph % (Auto) 25.4 25.4 [place] % (Auto) 8.9 10.0 Eos % (Auto) 1.0 L 1.0 L Baso % (Auto) 0.3 0.4 Neut # (Auto) 5300 4700 Lymph # (Auto) 2100 1900 [place] # (Auto) 700 800 Eos # (Auto) 100 100 Baso # (Auto) 0 0 Sodium 137 Potassium 3.2 L Chloride 106 Carbon Dioxide 29 BUN 14 Creatinine 0.84 Estimated GFR > 60.0 BUN/Creatinine Ratio 16.7 Glucose 73 L Calcium 7.9 L Magnesium Total Bilirubin Conjugated Bilirubin Unconjugated Bilirubin AST ALT Alkaline Phosphatase Total Creatine Kinase CK-MB (CK-2) CK-MB (CK-2) Rel Index Troponin I Total Protein Albumin Globulin Albumin/Globulin Ratio Blood Type Antibody Screen Crossmatch 08/04/19 04:25 WBC RBC Hgb Hct MCV MCH MCHC RDW Plt Count Neut % (Auto) Lymph % (Auto) [place] % (Auto) Eos % (Auto) Baso % (Auto) Neut # (Auto) Lymph # (Auto) [place] # (Auto) Eos # (Auto) Baso # (Auto) Sodium 134 L Potassium 3.4 Chloride 105 Carbon Dioxide 29 BUN 13 Creatinine 0.84 Estimated GFR > 60.0 BUN/Creatinine Ratio 15.5 Glucose 202 H D Calcium 7.7 L Magnesium 1.8 Total Bilirubin 1.2 Conjugated Bilirubin 0.0 Unconjugated Bilirubin 1.3 H AST 31 ALT 15 Alkaline Phosphatase 59 Total Creatine Kinase CK-MB (CK-2) CK-MB (CK-2) Rel Index Troponin I Total Protein 5.0 L Albumin 2.2 L Globulin 2.8 Albumin/Globulin Ratio 0.8 L Blood Type Antibody Screen Crossmatch Discharge Plan Discharge Plan Patient Disposition: Home Discharge comment: You were admitted due to upper GI bleed. We gave you [address] Serrano performed EGD which showed severe inflammation in your esophagus as well as deformed duodenum. Biopsies were obtained. You have been prescribed pantoprazole twice daily which you will need to take for at least 12 weeks. I have also reduced your aspirin dose to 81 mg daily. Avoid NSAID pain relievers (ibuprofen, naproxen) but okay to take acetaminophen (Tylenol) as needed. You should continue not smoking and avoiding any alcohol because these can cause severe damage your esophagus. Dr Serrano recommended an abdominal CT scan and upper GI barium in a couple of weeks to further evaluate deformity of duodenum (could be due to previous pancreatitis). Your PCP can schedule these studies. Dr Serrano would like to see you back in 1 month for follow up. Discharge orders & Medications Prescriptions: New aspirin [Aspirin Low Dose] 81 mg tablet,delayed release (DR/EC) 81 mg PO DAILY Qty: 30 RF: 0 pantoprazole 40 mg tablet,delayed release (DR/EC) 40 mg PO BID 60 Days Qty: 120 RF: 0 Continued Marijuana 1 ea inhalation DAILY RF: 0 atorvastatin 40 mg tablet 40 mg PO QPM RF: 0 cholecalciferol (vitamin D3) [Vitamin D3] 1,000 unit Capsule 3,000 unit PO DAILY RF: 0 insulin aspart U-100 [Novolog Flexpen U-100 Insulin] 100 UNIT/1 ML insulin pen 1 dose subcut QIDACHS RF: 0 Basaglar KwikPen U-100 Insulin 100 unit/mL (3 mL) insulin pen 8 unit SUBCUT BID RF: 0 hydralazine 10 mg Tablet 20 mg PO BID RF: 0 tizanidine 2 mg Tablet 2 mg PO Q8H PRN (Reason: Muscle Spasm) RF: 0 sucralfate 1 gram Tablet 1 g PO QID RF: 0 cyanocobalamin (vitamin B-12) 1,000 mcg Tablet 1,000 mcg PO DAILY RF: 0 amlodipine 2.5 mg Tablet 2.5 mg PO DAILY RF: 0 lisinopril 30 mg Tablet 30 mg PO DAILY RF: 0 oxybutynin chloride 5 mg Tablet 5 mg PO BEDTIME RF: 0 Myrbetriq 25 mg Tablet Extended Release 24 Hr 25 mg PO DAILY RF: 0 (DME) pen needle, diabetic 32 gauge x 5/32 needle RF: 0 mirtazapine 7.5 MG tablet 15 mg PO BEDTIME RF: 0 Discontinued aspirin 325 mg Tablet 325 mg PO DAILY RF: 0 Follow up/Referrals: Jyoti Sloan MD [Primary Care Provider] - 1 Week (appt:08/10 @ [address] sloan if this will not work please call clinic to reschedule) Cruz Serrano MD [Physician] - 1 Month (please call & schedule follow up appointment with dr serrano for 1 month) Diet/Activity/Treatments Diet: Diet as Tolerated Visit Report/Discharge Packet Instructions: Taking Care of Your Diabetes When You Are Sick, DI for Chest Diamante n, Diabetes and Alcohol: Caution When Mixing, DI for Esophagitis, Pantoprazole (By mouth) Discharge Data Primary Care Provider: Jyoti Sloan
--- NOTE | 2019-08-04 13:47 | PT-IP ANOTE ---
Attempted to see pt as pt had returned from EDG. 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 Pt currently had discharge order for today.
--- NOTE | 2019-08-04 14:48 | CM.DPC ---
DCP: continued: case received, EMR reviewed. Discussed in Team Rounds with Dr. Huber noting pt may be stable to d/c today after her procedure with Dr. Serrano. A d/c order in now noted. Went to room to check in. CARY Alvares states pt has already left for home. [facility] is updated via phone discussion with Antony. DC order specifics and resume HH orders are being faxed today by [facility]. She will also fax d/c summary when available.
--- NOTE | 2019-08-04 14:53 | PC.NURSE ---
Pt d/c'ing home per MD order. S/O, Pablo, present for d/c teaching. Provided written and verbal instruction. Reviewed need for f/u and scheduled appt, need to schedule appt with Dr. Serrano for 1 month. Reviewed new rx and provided education on same. Reviewed continued med list. Provided education regarding disease process, stroke, diabetes. Pt and s/o verbalize understanding and have no questions at this time. Pt transferred from bed to w/c with steady gait and was escorted to POV (by this RN) with all belongings and in no acute distress. D/c time 1430.
== END 2019-08-04 14:30 | disposition home health service (06) | DRG 391 ==
LOC: ED 11:23 → ICU 08-02 08:39
PROVIDERS: Emergency Medicine; Internal Medicine; Nurse Practitioner Family; Specialist; Admitting Provider Internal Medicine; Emergency Provider Emergency Medicine; PCP Family Medicine; Referring Provider Emergency Medicine; Visit Provider Internal Medicine
PROC: 0DJ08ZZ Inspection of Upper Intestinal Tract, Via Natural or Artificial Opening Endoscopic (ICD-10-PCS; CPT 43235; principal; 2019-08-04 13:45)
DX: K20.8 Other esophagitis (principal); I21.A1 Myocardial infarction type 2; D62 Acute posthemorrhagic anemia; N17.9 Acute kidney failure, unspecified; Q43.9 Congenital malformation of intestine, unspecified; K22.8 Other specified diseases of esophagus; E11.65 Type 2 diabetes mellitus with hyperglycemia; I10 Essential (primary) hypertension; E78.5 Hyperlipidemia, unspecified; Z86.73 Personal history of transient ischemic attack (TIA), and cerebral infarction without residual deficits; F17.210 Nicotine dependence, cigarettes, uncomplicated; F12.90 Cannabis use, unspecified, uncomplicated; Z79.4 Long term (current) use of insulin; R07.9 Chest pain, unspecified
CPT/HCPCS: 36415; 36430; 43239; 71046; 74176; 80048; 80053; 80076; 80320; 81001; 82009; 82550; 82805; 82962; 83605; 83690; 83735; 84100; 84484; 85025; 85610; 85730; 86850; 86900; 86901; 87797; 93005; 93306; 96361; 96374; 96375; 97161; 97165; 99152; 99232; 99284; 99285; G0378; P9016; C9113; J2250; J2270; J2405; J3010

== ENCOUNTER 2019-08-23 18:39 | Observation (INO) | payer MEDICARE, MEDICAID, SELFPAY ==
[2019-08-01 12:07] VITALS: BMI 20.7
[2019-08-23 18:50] VITALS: BP 176/91; PULSE 75; RESP 17; TEMP 36.6; O2SAT 100
--- NOTE | 2019-08-23 18:52 | ED_ITS ---
HPI - Abdominal Pain General Chief Complaint: Headache Stated Complaint: Not Feeling Good Time Seen by Provider: 08/23/19 18:40 Source: patient Mode of arrival: Wheelchair Limitations: no limitations History of Present Illness HPI narrative: 64F smoker and daily drinker presents with her in the chief complaint of generally not feeling well. She tends to be a terrible historian and has little to contribute to the story other than this. She does have bit of a headache and denies any provocation or palliation. She denies any recent falls or injuries. She denies chest pain or shortness of breath. She denies any nausea, vomiting or diarrhea. She feels weak and fatigued. She denies any new medications or dietary change. MD complaint: other Related Data Home Medications Medication Instructions Recorded Confirmed Marijuana 1 ea INHALATION DAILY 10/08/17 08/02/19 atorvastatin 40 mg PO QPM 10/08/17 08/02/19 cholecalciferol (vitamin D3) 3,000 unit PO DAILY 10/08/17 08/02/19 [Vitamin D3] insulin aspart U-100 [Novolog 1 dose SUBCUT QIDACHS 10/08/17 08/02/19 Flexpen U-100 Insulin] pen needle, diabetic 10/30/17 08/02/19 mirtazapine 15 mg PO BEDTIME 02/19/18 08/02/19 Basaglar KwikPen U-100 Insulin 8 unit SUBCUT BID 02/20/19 08/02/19 Myrbetriq 25 mg PO DAILY 08/02/19 08/02/19 amlodipine 2.5 mg PO DAILY 08/02/19 08/02/19 cyanocobalamin (vitamin B-12) 1,000 mcg PO DAILY 08/02/19 08/02/19 hydralazine 20 mg PO BID 08/02/19 08/02/19 lisinopril 30 mg PO DAILY 08/02/19 08/02/19 oxybutynin chloride 5 mg PO BEDTIME 08/02/19 08/02/19 sucralfate 1 g PO QID 08/02/19 08/02/19 tizanidine 2 mg PO Q8H PRN 08/02/19 08/02/19 Previous Rx's Medication Instructions Recorded aspirin [Aspirin Low Dose] 81 mg PO DAILY #30 tab 03/17/20 pantoprazole 40 mg PO BID 60 Days #120 tab 08/04/19 Allergies Allergy/AdvReac Type Severity Reaction Status Date / Time Iodine and Iodide Containing Allergy Unknown Verified 04/12/19 19:14 Produc [IODINE AND IODIDE CONTAINING PRODUC] latex [LATEX] Allergy Unknown Verified 04/12/19 19:14 Review of Systems Constitutional Constitutional: Denies chills, Reports fatigue, Denies fever(s), Denies frequent falls, Reports headache(s), Denies lethargy and Reports weakness Eyes Eyes: Denies change in vision, Denies eye discharge, Denies irritation and Denies loss of vision ENT Ears, Nose, Mouth, and Throat: Denies change in voice, Denies dizziness, Reports headache(s), Denies neck pain, Denies sore throat and Denies throat swelling Cardiovascular Cardiovascular: Denies chest pain, Denies irregular heart rhythm, Denies lightheadedness, Denies palpitations, Denies dyspnea, Denies dyspnea on exertion and Denies orthopnea Respiratory Respiratory: Denies cough, Denies dyspnea, Denies dyspnea on exertion and Denies wheezing Gastrointestinal Gastrointestinal: Denies abdominal pain, Denies change in bowel habits, Denies diarrhea, Denies nausea and Denies vomiting Genitourinary Genitourinary: Denies hematuria, Denies flank pain, Denies urinary incontinence and Denies urinary urgency Musculoskeletal Musculoskeletal: Denies back pain, Denies muscle weakness, Denies neck pain, Denies numbness and Denies tingling Integumentary/Breasts Skin/Breast: Denies pruritus, Denies erythema, Denies rash and Denies wounds Neurologic Neurologic: Denies behavioral changes, Denies confusion, Denies dizziness, Denies frequent falls, Reports headache(s), Denies loss of vision, Denies numbness, Denies tingling and Reports weakness Psychiatric Psychiatric: Denies anxiety, Denies behavioral changes, Denies confusion, Denies depression, Denies homicidal ideation and Denies suicidal ideation Endocrine Endocrine: Reports fatigue, Denies flushing and Denies palpitations Hematologic/Lymphatic Hematologic/Lymphatic: Denies easy bruising Allergic/Immunologic Allergic/Immunologic: Denies urticaria, Denies throat swelling and Denies wheezing Patient History Medical History CVA (cerebral vascular accident) (Acute) Diabetes (Acute) Gallbladder disease (Chronic) Hypertension (Acute) Surgical History No pertinent past surgical history (Acute) Tubal ligation status (Acute) Family History Mother Heart disease Social History household members: significant other Smoking Status: Current every day smoker alcohol intake: former Smoking Status: Current every day smoker tobacco type: cigarettes alcohol intake frequency: holidays/special occasions only Alcohol type: hard liquor Substance Use Type: marijuana Exam Narrative Exam Narrative: GENERAL: [64] year old patient appears stated age. Well-nourish ed, well-developed patient, in mild distress. Flat affect HEAD: Atraumatic. Normocephalic. EYES: Pupils equal round and reactive. Extraocular motions intact. No scleral icterus. No injection or drainage. ENT: Dry mucous membranes Nose without bleeding, purulent drainage. Throat without erythema, tonsillar hypertrophy or exudate. Airway patent. NECK: Trachea midline. Non tender CARDIOVASCULAR: Regular rate and rhythm without murmurs, gallops, or rubs. RESPIRATORY: Clear to auscultation. Breath sounds equal bilaterally. No wheezes, rales, or rhonchi. GASTROINTESTINAL: Abdomen soft, non-tender, nondistended. EXTREMITIES: No edema or joint tenderness. BACK: Nontender without deformity or crepitance. No flank tenderness. NEURO: AOx3. SKIN: No rash or erythema of visible areas Initial Vital Signs Initial Vital Signs: Vital Signs Temperature 97.9 F 08/23/19 18:50 Pulse Rate 75 08/23/19 18:50 Respiratory Rate 17 08/23/19 18:50 Blood Pressure 176/91 H 08/23/19 18:50 Pulse Oximetry 100 08/23/19 18:50 Course Orders Ordered: ED Orders 08/23/19 18:55 CT head/brain wo con Stat 08/23/19 19:02 C-Reactive Protein Quant Stat Complete Blood Count AUTO DIFF Stat Comprehensive Metabolic Panel Stat Ethanol (ETOH) Stat Ferritin Stat Ketones (Beta-Hydroxybutyrate) Stat Lactate (Lactic Acid) Stat Lipase Stat Magnesium Stat NT-proBNP (BNP-Adult 18+) Stat Prothrombin Time INR Stat Troponin & CK Cardiac Panel Stat 08/23/19 19:20 Venous Blood Gas Stat 08/23/19 19:32 Blood Culture Stat 08/23/19 20:47 EKG-12 Lead Stat Acetaminophen (Tylenol) 650 mg PO Q6HR PRN PRN Reason: Fever/Mild Pain (1-3) Amlodipine Besylate (Norvasc) 2.5 mg PO DAILY [facility] Aspirin (Aspirin Ec) 81 mg PO DAILY [facility] Atorvastatin Calcium (Lipitor) 40 mg PO QPM [facility] Dextrose (D50w) 25 gm IV PRN PRN PRN Reason: Hypoglycemia Enoxaparin Sodium (Lovenox) 40 mg SUBCUT DAILY [facility] Potassium Chloride 80 meq/ (Sodium Chloride) 1,040 mls @ 130 mls/hr IV NOW ONE Stop: 08/24/19 04:14 Last Infusion: 08/23/19 21:10 Dose: 130 mls/hr Documented by: DONALD Cosigned by: JAYSON Admin: 08/23/19 21:03 Dose: 130 mls/hr Documented by: DONALD Cosigned by: JAYSON Insulin Aspart (Novolog Flexpen) 0 unit SUBCUT ACHS [facility]; Protocol Insulin Glargine (Lantus Solostar (Pen)) 8 unit SUBCUT BID [facility] Lisinopril (Zestril) 30 mg PO DAILY [facility] Naloxone HCl (Narcan) 0.2 mg IV Q2MIN PRN PRN Reason: Opiate Reversal Ondansetron HCl (Zofran) 4 mg IV Q8HR PRN PRN Reason: Nausea And Vomiting Discontinued Medications Amlodipine Besylate (Norvasc) 2.5 mg PO NOW ONE Stop: 08/23/19 23:45 Last Admin: 08/24/19 00:57 Dose: Not Given Documented by: LYNNE Amlodipine Besylate (Norvasc) 2.5 mg PO NOW ONE Stop: 08/23/19 23:45 Last Admin: 08/24/19 00:42 Dose: 2.5 mg Documented by: LYNNE Dextrose (D50w) 25 gm IV NOW ONE Stop: 08/23/19 20:16 Last Admin: 08/23/19 20:25 Dose: 25 gm Documented by: DONALD Potassium Chloride (Potassium Chloride) 40 meq PO NOW ONE Stop: 08/23/19 20:16 Last Admin: 04/05/20 20:26 Dose: 40 meq Documented by: DONALD Potassium Chloride (Potassium Chloride) 20 meq PO NOW ONE Stop: 08/23/19 20:32 Last Admin: 08/23/19 21:02 Dose: Not Given Documented by: DONALD Vital Signs Vital signs: Vital Signs - 8 hr 08/23/19 19:57 08/23/19 20:35 Pulse Rate 67 67 Respiratory Rate 19 23 Blood Pressure [Right Arm] 143/75 H 187/100 H Pulse Oximetry 97 99 MDM - Abdominal Pain Lab Data Result diagrams: 08/23/19 19:02 08/23/19 23:46 Labs: Lab Results 08/23/19 08/23/19 08/23/19 Range/Units 19:02 19:02 19:02 WBC 10.3 (4.5-11.0) X10^3/uL RBC 4.04 (4.0-5.2) X10^6/uL Hgb 12.0 (12.0-16.0) g/dL Hct 36.1 (36-46) % MCV 89.4 (80-100) fL MCH 29.7 (26-34) PG MCHC 33.2 (30-36) % RDW 15.0 H (11.6-14.8) % Plt Count 239 (150-400) X10^3/uL Neut % (Auto) 72.3 (50-75) % Lymph % (Auto) 20.0 L (25-40) % Becker % (Auto) 6.9 (3-14) % Eos % (Auto) 0.4 L (2-4) % Baso % (Auto) 0.4 (0-2) % Neut # (Auto) 7400 H (6375-1767) /uL Lymph # (Auto) 2100 (1302-6218) /uL Becker # (Auto) 700 (0-900) /uL Eos # (Auto) 0 (0-450) /uL Baso # (Auto) 0 (0-100) /uL PT 10.8 (10.1-12.7) SECONDS INR 0.9 (0.9-1.3) VBG pH (7.33-7.43) VBG pCO2 (45-50) mmHg VBG pO2 (35-45) mmHg VBG HCO3 (23-28) mmol/L VBG Total CO2 (24-29) mmol/L VBG O2 Saturation (70-75) % VBG Base Excess (0-4) mmol/L Sodium (137-145) mmol/L Potassium (3.4-5.1) mmol/L Chloride (98-107) mmol/L Carbon Dioxide (22-32) mmol/L BUN (7-17) mg/dL Creatinine (0.52-1.04) mg/dL Estimated GFR (>60) mL/min BUN/Creatinine Ratio (6-22) Glucose (80-110) mg/dL Lactate (0.7-2.1) mmol/L Calcium (8.4-10.2) mg/dL Magnesium (1.6-2.3) mg/dL Ferritin (11-264) ng/mL Total Bilirubin (0.2-1.3) mg/dL AST (14-36) IU/L ALT (<35) IU/L Alkaline Phosphatase (38-126) U/L Total Creatine Kinase (30-135) U/L CK-MB (CK-2) CK-MB (CK-2) Rel Index Troponin I (0.01-0.034) ng/mL C-Reactive Protein (<1.0) mg/dL NT-Pro-B Natriuret Pep (<125) pg/mL Total Protein (6.3-8.2) g/dL Albumin (3.5-5.0) g/dL Globulin (1.7-4.1) g/dL Albumin/Globulin Ratio (1.0-2.8) Lipase (23-300) U/L Ethyl Alcohol < 10 ( - 10) mg/dL Ketones 0.16 (<0.27) mmol/L 08/23/19 08/23/19 08/23/19 Range/Units 19:02 19:02 19:20 WBC (4.5-11.0) X10^3/uL RBC (4.0-5.2) X10^6/uL Hgb (12.0-16.0) g/dL Hct (36-46) % MCV (80-100) fL MCH (26-34) PG MCHC (30-36) % RDW (11.6-14.8) % Plt Count (150-400) X10^3/uL Neut % (Auto) (50-75) % Lymph % (Auto) (25-40) % Becker % (Auto) (3-14) % Eos % (Auto) (2-4) % Baso % (Auto) (0-2) % Neut # (Auto) (1133-6192) /uL Lymph # (Auto) (0236-8447) /uL Becker # (Auto) (0-900) /uL Eos # (Auto) (0-450) /uL Baso # (Auto) (0-100) /uL PT (10.1-12.7) SECONDS INR (0.9-1.3) VBG pH 7.44 H (7.33-7.43) VBG pCO2 39.9 L (45-50) mmHg VBG pO2 43 (35-45) mmHg VBG HCO3 27 (23-28) mmol/L VBG Total CO2 29 (24-29) mmol/L VBG O2 Saturation 81 H (70-75) % VBG Base Excess 3.0 (0-4) mmol/L Sodium 138 (137-145) mmol/L Potassium 2.6 L* (3.4-5.1) mmol/L Chloride 108 H (98-107) mmol/L Carbon Dioxide 27 (22-32) mmol/L BUN 10 (7-17) mg/dL Creatinine 0.71 (0.52-1.04) mg/dL Estimated GFR > 60.0 (>60) mL/min BUN/Creatinine Ratio 14.1 (6-22) Glucose 43 L* (80-110) mg/dL Lactate 0.6 L (0.7-2.1) mmol/L Calcium 8.1 L (8.4-10.2) mg/dL Magnesium 1.7 (1.6-2.3) mg/dL Ferritin 47 (11-264) ng/mL Total Bilirubin 0.6 (0.2-1.3) mg/dL AST 30 (14-36) IU/L ALT 15 (<35) IU/L Alkaline Phosphatase 81 (38-126) U/L Total Creatine Kinase 47 (30-135) U/L CK-MB (CK-2) TNP CK-MB (CK-2) Rel Index TNP Troponin I < 0.012 (0.01-0.034) ng/mL C-Reactive Protein < 0.5 (<1.0) mg/dL NT-Pro-B Natriuret Pep 6030 H (<125) pg/mL Total Protein 5.9 L (6.3-8.2) g/dL Albumin 2.7 L (3.5-5.0) g/dL Globulin 3.2 (1.7-4.1) g/dL Albumin/Globulin Ratio 0.8 L (1.0-2.8) Lipase 11 L (23-300) U/L Ethyl Alcohol ( - 10) mg/dL Ketones (<0.27) mmol/L Point of care testing: Point of Care Testing Glucose POC [address] scan - head: Radiologist's Impression: Kristine Moon 64 F 1955 [place] [address] CT Scan Report Signed Patient: Kristine Moon RMR#: [id number] : [id number] Age/Sex: 64 / FDate of Service: 08/23/19 Loc: ED Accession Number: [id number] Procedure: CT head/brain wo con Ordering Provider: Bruce Nguyễn D.O. PROCEDURE: CT HEAD/BRAIN WO CON INDICATIONS: headache, alcohol history, mental status change TECHNIQUE: Noncontrast 4.5 mm thick angled axial sections acquired from the foramen magnum to the vertex, with coronal and sagittal reformats. For radiation dose reduction, the following was used: automated exposure control, adjustment of mA and/or kV according to patient size. COMPARISON: [facility], CT, CT HEAD/BRAIN WO CON, 07/23/2019, 5:12. FINDINGS: Image quality: Excellent. CSF spaces: Basal cisterns are patent. No extra-axial fluid collections. The ventricles are symmetric in size and shape. Brain: No intracranial bleeds or masses. There is cerebral volume loss for age, with resultant ventricular and sulcal prominence. There are moderate periventricular and deep white matter chronic small vessel ischemic changes. Small lacunar infarcts are present bilaterally in the basal ganglia and thalami. There is intracranial internal carotid artery atherosclerosis. Skull and face: Calvarium and visualized facial bones appear intact, without suspicious lesions. Sinuses: Visualized sinuses and mastoids are clear. IMPRESSION: 1. No CT evidence of acute intracranial process. 2. Cerebral cortical volume loss and chronic changes of moderate microvascular ischemic disease. This includes multiple bilateral lacunar infarcts in the deep blank[place] lynette er. Dictated by: Sun Jiang M.D. on 08/23/2019 at 19:44 Approved by: Sun Jiang M.D. on 08/23/2019 at 19:47 Discharge Plan Departure Patient Disposition: Admitted As Inpatient Clinical Impression: Acute hypokalemia, Hypoglycemia Discharge Date/Time: 08/23/19 21:10 Admit Date/Time: 08/23/19 20:40 Admit Provider: Kelly Resendiz
--- NOTE | 2019-08-23 18:55 | DI.CT.S_ITS ---
PROCEDURE: CT HEAD/BRAIN WO CON INDICATIONS: headache, alcohol history, mental status change TECHNIQUE: Noncontrast 4.5 mm thick angled axial sections acquired from the foramen magnum to the vertex, with coronal and sagittal reformats. For radiation dose reduction, the following was used: automated exposure control, adjustment of mA and/or kV according to patient size. COMPARISON: [facility], CT, CT HEAD/BRAIN WO CON, 07/23/2019, 5:12. FINDINGS: Image quality: Excellent. CSF spaces: Basal cisterns are patent. No extra-axial fluid collections. The ventricles are symmetric in size and shape. Brain: No intracranial bleeds or masses. There is cerebral volume loss for age, with resultant ventricular and sulcal prominence. There are moderate periventricular and deep white matter chronic small vessel ischemic changes. Small lacunar infarcts are present bilaterally in the basal ganglia and thalami. There is intracranial internal carotid artery atherosclerosis. Skull and face: Calvarium and visualized facial bones appear intact, without suspicious lesions. Sinuses: Visualized sinuses and mastoids are clear. IMPRESSION: 1. No CT evidence of acute intracranial process. 2. Cerebral cortical volume loss and chronic changes of moderate microvascular ischemic disease. This includes multiple bilateral lacunar infarcts in the deep blank[place] matter. Dictated by: Sun Jiang M.D. on 08/23/2019 at 19:44 Approved by: Sun Jiang M.D. on 08/23/2019 at 19:47
[2019-08-23 19:36] LABS: Add Manual Diff / Slide Review NO; Basophils Absolute Auto 0 /uL (0-100); Basophils Percent Auto 0.4 % (0-2); Eosinophils Absolute Auto 0 /uL (0-450); Eosinophils Percent Auto 0.4 % (2-4); Hematocrit 36.1 % (36-46); Lymphocytes Absolute Auto 2100 /uL (1100-4500); Mean Corpuscular HGB Conc 33.2 % (30-36); Mean Corpuscular Hemoglobin 29.7 PG (26-34); Mean Corpuscular Volume 89.4 fL (80-100); Monocytes Absolute Auto 700 /uL (0-900); Monocytes Percent Auto 6.9 % (3-14); Neutrophils Absolute Auto 7400 /uL (1500-7000); Neutrophils Percent Auto 72.3 % (50-75); Platelet Count 239 X10^3/uL (150-400); Red Blood Cell Count 4.04 X10^6/uL (4.0-5.2); White Blood Cell Count 10.3 X10^3/uL (4.5-11.0)
[2019-08-23 19:51] LABS: INR 0.9 (0.9-1.3); Prothrombin Time 10.8 SECONDS (10.1-12.7)
[2019-08-23 19:53] LABS: Lactate (Lactic Acid) 0.6 mmol/L (0.7-2.1)
[2019-08-23 19:55] LABS: Ethanol (ETOH) < 10 mg/dL
[2019-08-23 19:57] VITALS: BP 143/75; PULSE 67; RESP 19; O2SAT 97
[2019-08-23 19:59] LABS: Alanine Aminotransferase 15 IU/L (<35); Albumin 2.7 g/dL (3.5-5.0); Albumin Globulin Ratio 0.8 (1.0-2.8); Alkaline Phosphatase 81 U/L (38-126); Aspartate Aminotransferase 30 IU/L (14-36); BUN Creatinine Ratio 14.1 (6-22); Bilirubin Total 0.6 mg/dL (0.2-1.3); Blood Urea Nitrogen 10 mg/dL (7-17); Calcium 8.1 mg/dL (8.4-10.2); Carbon Dioxide 27 mmol/L (22-32); Chloride 108 mmol/L (98-107); Creatine Kinase 47 U/L (30-135); Estimated Glomerular Filt Rate > 60.0 mL/min (>60); Globulin 3.2 g/dL (1.7-4.1); HEMOLYSIS < 15 (0-50); Lipase 11 U/L (23-300); Magnesium 1.7 mg/dL (1.6-2.3); Sodium 138 mmol/L (137-145); Total Protein 5.9 g/dL (6.3-8.2)
[2019-08-23 20:08] LABS: NT-proBNP (BNP-Adult 18+) 6030 pg/mL (<125); Troponin I < 0.012 ng/mL (0.01-0.034)
[2019-08-23 20:13] LABS: C-Reactive Protein Quant < 0.5 mg/dL (<1.0)
[2019-08-23 20:14] LABS: Glucose 43 mg/dL (80-110); Potassium 2.6 mmol/L (3.4-5.1)
[2019-08-23 20:16] LABS: Ketones (Beta-Hydroxybutyrate) 0.16 mmol/L (<0.27)
[2019-08-23 20:16] LABS: PCO2 VBG 39.9 mmHg (45-50); PO2 VBG 43 mmHg (35-45); pH VBG 7.44 (7.33-7.43)
[2019-08-23 20:17] LABS: HCO3 VBG 27 mmol/L (23-28); Oxygen Saturation VBG 81 % (70-75); Total CO2 VBG 29 mmol/L (24-29)
[2019-08-23] MEDS: DEXTROSE 50 % IN WATER 25 GM/50 ML SYRINGE IV (20:25)
[2019-08-23] MEDS: POTASSIUM CHLORIDE 20 MEQ/15 ML UDC 40 MEQ PO (20:26)
[2019-08-23 20:31] LABS: Ferritin 47 ng/mL (11-264)
[2019-08-23 20:35] VITALS: BP 187/100; PULSE 67; RESP 23; O2SAT 99
[2019-08-23 21:00] VITALS: BP 181/90; PULSE 69; RESP 19; O2SAT 100
--- NOTE | 2019-08-23 21:00 | PC.NURSE ---
Pt Pablo updated on pt admission status and can be reached at [phone] for additional updates and or questions.
[2019-08-23] MEDS: POTASSIUM CHLORIDE 80 MEQ in SODIUM CHLORIDE 0.9% 1,000 ML 130 ML IV (21:03)
[2019-08-23 21:25] VITALS: BP 107/97; PULSE 71; RESP 14; TEMP 36.7; O2SAT 99
[2019-08-23 22:02] VITALS: BMI 18.5
[2019-08-23 23:42] VITALS: BP 177/110; PULSE 73; RESP 16; TEMP 36.4; O2SAT 95
[2019-08-24 00:09] LABS: HEMOLYSIS < 15 (0-50); Potassium 3.7 mmol/L (3.4-5.1)
[2019-08-24] MEDS: AMLODIPINE 2.5 MG TABLET PO ×2 (00:42→06:23)
[2019-08-24 01:02] LABS: Appearance Urine UA CLEAR; Bilirubin Urine UA NEGATIVE (NEGATIVE); Color Urine UA YELLOW; Glucose Urine UA TRACE g/dL (Negative); Ketones Urine UA NEGATIVE (NEGATIVE); Leukocyte Esterase Urine UA NEGATIVE (NEGATIVE); Nitrite Urine UA NEGATIVE (Negative); Occult Blood Urine UA TRACE-INTACT (Negative); Protein Urine UA 3+ (Negative); Urobilinogen Urine UA 0.2 E.U./dL (0.2)
[2019-08-24 01:09] LABS: Bacteria Urine Few (2-10); RBC Urine 1-5/HPF (0-5/HPF); Squamous Epithelial Cell Urine 1-5 /HPF (0-5/HPF); WBC Urine 0-1/HPF (0-5/HPF)
[2019-08-24 01:11] LABS: Culture Indicated Urine Cult Not Indicated; Hyaline Casts Urine 1-5/LPF
[2019-08-24 01:53] VITALS: BMI 18.5
--- NOTE | 2019-08-24 02:20 | PM.HP.1 ---
History of Present Illness History of Present Illness Date Patient Seen: 08/23/19 Time Patient Seen: 23:15 Chief complaint: Not Feeling Good Narrative: Kristine Moon is a 64-year-old female with multiple ED visits and admissions presents today with a headache. She states that she has been sick for week mostly staying at home. She is a difficult historian and does not seem to remember details of why she is even here. She states that her boyfriend gives her insulin daily however review of previous records indicate that it sexually her that she texts every day with her glucose readings and how much insulin she has given herself so it is unclear as to what her story really is. The ED requested admission due to the patient's hypokalemia of 2.6 and a blood sugar of 40. They did give her juice and her blood sugar went back up to 80. Patient denies fevers sweats or chills, vision changes, chest pain, shortness of breath, nausea or vomiting, dysuria, muscle aches and pains, skin lesions, she does endorse having numbness in her left hand for the past few months. Patient History Medical History CVA (cerebral vascular accident) (Acute) Diabetes (Acute) Gallbladder disease (Chronic) Hypertension (Acute) Surgical History No pertinent past surgical history (Acute) Tubal ligation status (Acute) Family & Social History Family History Mother Heart disease Social History: household members significant other Prior Living Arrangements House Safety & Behavioral: Feels Safe in Current Yes Environment Been Physically Hurt or No Threatened By a Person Suicidal Ideation Description None Suicide Plan Description No Plan Tobacco & Substance use: Tobacco type cigarettes,cannabis/marijuana states 2 cigarettes a day Smoking Status Current every day smoker alcohol intake former alcohol intake frequency holiday/special occasion Substance Use Type marijuana Meds Home Medications and Allergies Home Medications Medication Instructions Recorded Confirmed Type Marijuana 1 ea INHALATION DAILY 10/08/17 08/02/19 History atorvastatin 40 mg PO QPM 10/08/17 08/02/19 History cholecalciferol (vitamin D3) 3,000 unit PO DAILY 10/08/17 08/02/19 History [Vitamin D3] insulin aspart U-100 [Novolog 1 dose SUBCUT QIDACHS 10/08/17 08/02/19 History Flexpen U-100 Insulin] pen needle, diabetic 10/30/17 08/02/19 History mirtazapine 15 mg PO BEDTIME 02/19/18 08/02/19 History Basaglar KwikPen U-100 Insulin 8 unit SUBCUT BID 02/20/19 08/02/19 History Myrbetriq 25 mg PO DAILY 08/02/19 08/02/19 History amlodipine 2.5 mg PO DAILY 08/02/19 08/02/19 History cyanocobalamin (vitamin B-12) 1,000 mcg PO DAILY 08/02/19 08/02/19 History hydralazine 20 mg PO BID 08/02/19 08/02/19 History lisinopril 30 mg PO DAILY 08/02/19 08/02/19 History oxybutynin chloride 5 mg PO BEDTIME 08/02/19 08/02/19 History sucralfate 1 g PO QID 08/02/19 08/02/19 History tizanidine 2 mg PO Q8H PRN 08/02/19 08/02/19 History aspirin [Aspirin Low Dose] 81 mg PO DAILY #30 tab 08/04/19 Rx pantoprazole 40 mg PO BID 60 Days #120 tab 08/04/19 Rx Allergies Allergy/AdvReac Type Severity Reaction Status Date / Time Iodine and Iodide Containing Allergy Unknown Verified 04/12/19 19:14 Produc [IODINE AND IODIDE CONTAINING PRODUC] latex [LATEX] Allergy Unknown Verified 04/12/19 19:14 Review of Systems Review of Systems ROS: Yes All systems reviewed with the patient and are negative except as otherwise documented Exam Vital Signs (past 8 hours): - 08/23/19 18:50 08/23/19 19:57 08/23/19 20:35 Temperature 97.9 F Pulse Rate 75 67 67 Respiratory Rate 17 19 23 Blood Pressure 176/91 H Blood Pressure [Right Arm] 143/75 H 187/100 H Pulse Oximetry 100 97 99 08/23/19 21:00 08/23/19 21:25 08/23/19 23:42 Temperature 98.0 F 97.5 F L Pulse Rate 69 71 73 Respiratory Rate 19 14 16 Blood Pressure 107/97 H 177/110 H Blood Pressure [Right Arm] 181/90 H Pulse Oximetry 100 99 95 Oxygen Delivery Method Room Air Narrative Exam Narrative: Gen: Alert, oriented, well-developed 64 y.o. female, appears older than stated a HEENT: normocephalic, atraumatic, conjunctiva clear, sclera non-icteric, oral mucosa pink and moist Neck: supple, full ROM, no JVD Resp: Lungs CTA, non-labored breathing CV: RRR, no murmur or rubs Abd: soft, non-tender, normoactive BTs Skin: no lesions or rashes, dry and intact Neuro: Appears mildly delayed. Alert and oriented X 4 w/no focal deficits Extremities: moves all 4 extremities, is ambulatory, negative Driss?s sign Psyche: normal mood and affect. Objective Labs Result Diagrams: 08/23/19 19:02 08/23/19 23:46 Labs: Laboratory Results - last 24 hr 08/23/19 08/23/19 08/23/19 19:02 19:02 19:02 WBC 10.3 RBC 4.04 Hgb 12.0 Hct 36.1 MCV 89.4 MCH 29.7 MCHC 33.2 RDW 15.0 H Plt Count 239 Neut % (Auto) 72.3 Lymph % (Auto) 20.0 L [place] % (Auto) 6.9 Eos % (Auto) 0.4 L Baso % (Auto) 0.4 Neut # (Auto) 7400 H Lymph # (Auto) 2100 [place] # (Auto) 700 Eos # (Auto) 0 Baso # (Auto) 0 PT 10.8 INR 0.9 VBG pH VBG pCO2 VBG pO2 VBG HCO3 VBG Total CO2 VBG O2 Saturation VBG Base Excess Sodium Potassium Chloride Carbon Dioxide BUN Creatinine Estimated GFR BUN/Creatinine Ratio Glucose Lactate Calcium Magnesium Ferritin Total Bilirubin AST ALT Alkaline Phosphatase Total Creatine Kinase CK-MB (CK-2) CK-MB (CK-2) Rel Index Troponin I C-Reactive Protein NT-Pro-B Natriuret Pep Total Protein Albumin Globulin Albumin/Globulin Ratio Lipase Urine Color Urine Appearance Urine pH Ur Specific [place] Urine Protein Urine Glucose (UA) Urine Ketones Urine Occult Blood Urine Nitrate Urine Bilirubin Urine Urobilinogen Ur Leukocyte Esterase Urine RBC Urine WBC Ur Squamous Epith Cells Urine Bacteria Hyaline Casts Ur Culture Indicated? Ethyl Alcohol < 10 Ketones 0.16 08/23/19 08/23/19 08/23/19 19:02 19:02 19:20 WBC RBC Hgb Hct MCV MCH MCHC RDW Plt Count Neut % (Auto) Lymph % (Auto) [place] % (Auto) Eos % (Auto) Baso % (Auto) Neut # (Auto) Lymph # (Auto) [place] # (Auto) Eos # (Auto) Baso # (Auto) PT INR VBG pH 7.44 H VBG pCO2 39.9 L VBG pO2 43 VBG HCO3 27 VBG Total CO2 29 VBG O2 Saturation 81 H VBG Base Excess 3.0 Sodium 138 Potassium 2.6 L* Chloride 108 H Carbon Dioxide 27 BUN 10 Creatinine 0.71 Estimated GFR > 60.0 BUN/Creatinine Ratio 14.1 Glucose 43 L* Lactate 0.6 L Calcium 8.1 L Magnesium 1.7 Ferritin 47 Total Bilirubin 0.6 AST 30 ALT 15 Alkaline Phosphatase 81 Total Creatine Kinase 47 CK-MB (CK-2) TNP CK-MB (CK-2) Rel Index TNP Troponin I < 0.012 C-Reactive Protein < 0.5 NT-Pro-B Natriuret Pep 6030 H Total Protein 5.9 L Albumin 2.7 L Globulin 3.2 Albumin/Globulin Ratio 0.8 L Lipase 11 L Urine Color Urine Appearance Urine pH Ur Specific [place] Urine Protein Urine Glucose (UA) Urine Ketones Urine Occult Blood Urine Nitrate Urine Bilirubin Urine Urobilinogen Ur Leukocyte Esterase Urine RBC Urine WBC Ur Squamous Epith Cells Urine Bacteria Hyaline Casts Ur Culture Indicated? Ethyl Alcohol Ketones 08/23/19 08/24/19 23:46 00:59 WBC RBC Hgb Hct MCV MCH MCHC RDW Plt Count Neut % (Auto) Lymph % (Auto) [place] % (Auto) Eos % (Auto) Baso % (Auto) Neut # (Auto) Lymph # (Auto) [place] # (Auto) Eos # (Auto) Baso # (Auto) PT INR VBG pH VBG pCO2 VBG pO2 VBG HCO3 VBG Total CO2 VBG O2 Saturation VBG Base Excess Sodium Potassium 3.7 Chloride Carbon Dioxide BUN Creatinine Estimated GFR BUN/Creatinine Ratio Glucose Lactate Calcium Magnesium Ferritin Total Bilirubin AST ALT Alkaline Phosphatase Total Creatine Kinase CK-MB (CK-2) CK-MB (CK-2) Rel Index Troponin I C-Reactive Protein NT-Pro-B Natriuret Pep Total Protein Albumin Globulin Albumin/Globulin Ratio Lipase Urine Color Yellow Urine Appearance Clear Urine pH 7.0 Ur Specific [place] 1.020 Urine Protein 3+ H Urine Glucose (UA) Trace H Urine Ketones Negative Urine Occult Blood Trace-intact Urine Nitrate Negative Urine Bilirubin Negative Urine Urobilinogen 0.2 Ur Leukocyte Esterase Negative Urine RBC 1-5/hpf Urine WBC 0-1/hpf Ur Squamous Epith Cells 1-5 /hpf Urine Bacteria Few (2-10) H Hyaline Casts 1-5/lpf Ur Culture Indicated? Cult not indicated Ethyl Alcohol Ketones Assessment & Plan Assessment & Plan narrative: Kristine Moon is admitted as an inpatient for metabolic encephalopathy associated with severe hypokalemia and hypoglycemia. Acute metabolic encephalopathy secondary to electrolyte disturbances -patient will be admitted as inpatient tonight, but may need to change to observation if she shows enough improvement to be discharged tomorrow. Acute hypokalemia with a potassium of 2.6, acute, present on admission now resolved -she was given potassium 40 mEq orally and 80 mEq IV in the ED -potassium was corrected to 3.7. -repeat potassium in the morning as part of a BMP panel Acute hypoglycemia with a glucose of 43, acute, present on admission -reportedly normalized per ED Potential medical noncompliance -I have requested a social work consult to find out who is monitoring her insulin and glucose readings as the patient was unable to tell me what she was actually taking Consults: none Patient is admitted to an inpatient bed. Stay is likely to exceed 2 midnights. FEN: IV saline lock, carb control diet, C/BMP in the am. VTE prophylaxis: Bilateral SCDs Enoxaparin 40 mg subQ daily Dispo: Probable discharge to home Code Status: Full Code as discussed with patient Quality VTE Deep Vein Thrombosis/Pulmonary Embolism Present on Admission: No
[2019-08-24 04:21] VITALS: BP 187/94; PULSE 70; RESP 16; TEMP 36.2; O2SAT 95
[2019-08-24 05:42] LABS: Add Manual Diff / Slide Review NO; Basophils Absolute Auto 0 /uL (0-100); Basophils Percent Auto 0.3 % (0-2); Eosinophils Absolute Auto 100 /uL (0-450); Eosinophils Percent Auto 1.3 % (2-4); Hematocrit 33.6 % (36-46); Hemoglobin 11.2 g/dL (12.0-16.0); Lymphocytes Absolute Auto 1700 /uL (1100-4500); Lymphocytes Percent Auto 27.9 % (25-40); Mean Corpuscular HGB Conc 33.4 % (30-36); Mean Corpuscular Hemoglobin 29.9 PG (26-34); Mean Corpuscular Volume 89.6 fL (80-100); Monocytes Absolute Auto 500 /uL (0-900); Monocytes Percent Auto 8.2 % (3-14); Neutrophils Absolute Auto 3800 /uL (1500-7000); Neutrophils Percent Auto 62.3 % (50-75); Platelet Count 211 X10^3/uL (150-400); Red Blood Cell Count 3.75 X10^6/uL (4.0-5.2); Red Cell Distribution Width 15.4 % (11.6-14.8); White Blood Cell Count 6.1 X10^3/uL (4.5-11.0)
[2019-08-24 05:52] LABS: BUN Creatinine Ratio 13.2 (6-22); Blood Urea Nitrogen 9 mg/dL (7-17); Carbon Dioxide 25 mmol/L (22-32); Chloride 111 mmol/L (98-107); Estimated Glomerular Filt Rate > 60.0 mL/min (>60); Glucose 132 mg/dL (80-110); HEMOLYSIS < 15 (0-50); Potassium 4.4 mmol/L (3.4-5.1); Sodium 136 mmol/L (137-145)
[2019-08-24 05:57] LABS: Hemoglobin A1C% w Est Avg Glu 7.7 % (4.0-6.0)
[2019-08-24 06:05] VITALS: BP 185/84
[2019-08-24 08:00] VITALS: BP 161/97; PULSE 73; RESP 17; TEMP 37.3; O2SAT 98
[2019-08-24] MEDS: INSULIN ASPART 100 UNIT/ML INSULN PEN SUBCUT (08:31)
[2019-08-24] MEDS: lisinopriL 10 MG TABLET 30 MG PO (08:35)
[2019-08-24] MEDS: ENOXAPARIN 40 MG/0.4 ML SYRINGE SUBCUT (08:35)
[2019-08-24] MEDS: ASPIRIN EC 81 MG TABLET PO (08:35)
[2019-08-24] MEDS: INSULIN GLARGINE 100 UNIT/ML 3ML PEN 8 UNIT SUBCUT (08:35)
--- NOTE | 2019-08-24 11:50 | DIET.PN ---
Dietary Progress Note Assessment: Ms. Moon is a 64-year-old female with multiple ED visits and admissions presents 1 day ago with a headache. She is a history of type 2 diabetes. She states that her boyfriend gives her insulin daily or she texts him with her glucose readings and he advises on how much insulin is needed. The ED requested admission due to the patient's hypokalemia of 2.6 and a blood sugar of 40. They did give her juice and her blood sugar went back up to 80. Pt reports no formal diabetes education, but her PCP Dr. Streeter at [facility] manages her diabetes care. HT: 162.56cm WT: 48.9kg UBW: 53.5kg BMI: 18.5 Labs: A1c: 7.7 Gluc: 43, 132 K: 2.6 MNA: 10 Ty: 20 Nutrition Diagnosis: Altered Nutrition related labs related to impaired glucose metabolism, lack of previous exposure to accurate nutrition information as evidenced by pt report, dx of diabetes, previous diet high in refined carbohydrates.? Interventions: 1. Reviewed pathophysiology of diabetes. Reviewed A1c and its correlation to blood glucose numbers. Discussed recommended BG ranges. 2. Discussed importance of self-monitoring, how often, and when to check. Recommended pt check before each meal to determine SSI. 3. Reviewed hyper/hypoglycemia and treatment. 4. Discussed impact of nutrition/diet on blood sugar control.? Discussed fed versus non-fed state. 5. Discussed the effect of carbohydrates/protein/fat on blood sugar control.? Stressed importance of consistent carbohydrate intake at each meal and provided instructions for recommended servings/portions of carbohydrates/protein per meal. Provided pt with educational material. 6. Reviewed carbohydrate counting and measuring carbohydrate content via serving sizes and reading nutrition labels.? Provided handouts.?? 7. Stressed importance of meal timing and not going >4-5 hours between meals. Encouraged adding protein to each meal to support glucose control. 8. Suggested pt request referral for [facility] diabetes education program. Pt interested and agreeable. Provided brochure and this RD's contact information. Diet Order: CCD Monitoring/Evaluations: weight, PO's, BG, rec referral to outpatient diabetes education program.
--- NOTE | 2019-08-24 11:59 | PC.NURSE ---
Day shift: Pt left unit in WC with VENDING SERVICE TECHNICIAN to car driven by Pt's spouse at approx 1150. Paperwork signed and all questions answered. Pt has personal belongings as well as MD scrips. Pt also was able to talk with field operations technician prior to leaving today.
--- NOTE | 2019-08-24 12:27 | CM.DANOTE ---
DCP assessment: EMR Reviewed: Patient is a 64 yr old female who was admitted for Hypoglycemia and Hypokalemia. Patients PCP is Dr Streeter with the [facility]. CM/RN met with patient briefly prior to D/C. Patient was alert and oriented x3 at time of CM/Rn visit. Patient currently lives with her significant other Pablo. Patient states she is feeling much better today and wants to go home. Patient states she is currently independent with all ADL's and can drive at baseline. patient states she preferrs not to drive and Pablo gives her daily DM medications including her insulin. patient states that she was interested in the DM education course here at and might be taking it with her but wants to talk with her PCP first. I: Medicare and Medicaid Plan: D/C home with Significant other Pablo. Patient intends to follow up with PCP within the next week. No identified D/C planning needs noted at this time. Asia Castaneda RN Discharge Planning/Care Management CM Discharge Assessment Start: 08/24/19 12:25 Freq: Status: Active Protocol: Document 08/24/19 12:25 HS (Rec: 08/24/19 12:27 HS [id number]) Discharge Planning Assessment Assigned Community Youth Secretary Asia Castaneda Rn DPOA/Assigned Designee Name Pablo (Significant other) Contact Information [phone] Advance Directives? Yes: DPOA, CPR RESUSCITATION Advance Directives on File Yes History Provided By Patient,Family Member,Medical Record Has Patient been admitted in last 30 No days? Prior Living Arrangements House Household Members significant other Type of transporation used prior to Relies on Others admit Independent with ADL's Yes Is patient alert and oriented? Yes Caregiver for Another No Patient/Family Preference Home with Home Health Comment Patient is weak, if she needs long term, may have used up her Medicare services at [facility]. Will need to follow up with [facility] Discharge Plan Home with Home Health Transportation Arrangement Spouse Additional Comment Patient is already under home health services, with [facility] Updated in Patient Room with Yes name and ext. # of Community Youth Secretary Review Status In Process Next Review Type Continued Stay Review
--- NOTE | 2019-08-24 15:53 | P.DS_ITS ---
History of Present Illness History of Present Illness Date Patient Seen: 08/24/19 Chief complaint: Not Feeling Good Narrative: Kristine Moon is a 64-year-old female with multiple ED visits and admissions presents today with a headache. She states that she has been sick for week mostly staying at home. She is a difficult historian and does not seem to remember details of why she is even here. She states that her boyfriend gives her insulin daily however review of previous records indicate that it sexually her that she texts every day with her glucose readings and how much insulin she has given herself so it is unclear as to what her story really is. The ED requested admission due to the patient's hypokalemia of 2.6 and a blood sugar of 40. They did give her juice and her blood sugar went back up to 80. Patient denies fevers sweats or chills, vision changes, chest pain, shortness of breath, nausea or vomiting, dysuria, muscle aches and pains, skin lesions, she does endorse having numbness in her left hand for the past few months. Discharge Providers Provider Date of admission: 08/23/19 20:40 Discharge Date: 08/24/19 Primary care physician: Jyoti Streeter MD Consults: 08/23/19 23:14 Consult to [facility] [place] - Automatic Buffer Routine Comment: Concern previous admissions and now of her complia 08/24/19 10:48 Consult to Dietitian, Adult Routine Comment: Reason For Exam: diabetic education Discharge provider: Eliana Wolf MD Summary Hospital Course Discharge Diagnosis: 1. Hypoglycemia secondary to poor compliance with insulin regimen 2. Hypokalemia 3. Hypertension 4 hyperlipidemia 5. GERD 6. History of GI bleed 7. Urge incontinence Hospital Course: Patient was admitted to the hospital with a chief complaint of not feeling well. She was found have a blood sugar of 43 on admission, and a potassium of 2.6. Her potassium was replaced in the emergency department, and her glucose improved with IV dextrose and IV fluids. In discussion with the patient she reports that her manages her blood sugars. She takes 8 units of Lantus in the morning plus a sliding scale. She does admit to intermittently not eating when her is at work and she is home alone. Patient has poor insight in to her diabetic regimen and insulin management. I did speak to her primary care provider Dr. Streeter. She confirmed that the patient is a type 1 diabetic. As such she will require insulin despite difficulty in doing so. We agreed that the patient should be discharged home on 8 units of Lantus, in addition to her sliding scale of insulin as before. The patient has a home health nurse who will check on her. The patient and her were instructed to call Dr. Streeter is office daily with her blood sugars for instructions on how to manage her blood sugars. The patient was seen by a public health prior to discharge. The goal was diabetic Education regarding her diet and blood sugars. Patient was awake alert and agreeable. She was deemed appropriate for discharge home. Status at Discharge Cognitive/behavioral status at discharge: oriented Functional status at discharge: independent ambulation Overall status at discharge: patient is back to baseline Time Spent with Patient Time spent: Less than 30 minutes Exam Vital Signs (past 8 hours): - 08/24/19 08:00 Temperature 99.1 F Pulse Rate 73 Respiratory Rate 17 Blood Pressure 161/97 H Pulse Oximetry 98 Oxygen Delivery Method Room Air Oxygen Flow Rate 0 Narrative Exam Narrative: Pleasant female resting comfortably in no obvious distress Lungs: Clear to auscultation Cardiac exam: Regular rate and rhythm normal S1-S2 with a 2/6 systolic ejection murmur Abdomen: Soft nontender nondistended Extremities: No edema Objective Labs Result Diagrams: 08/24/19 05:11 08/24/19 05:11 Labs: Laboratory Results - last 24 hr 08/23/19 08/23/19 08/23/19 19:02 19:02 19:02 WBC 10.3 RBC 4.04 Hgb 12.0 Hct 36.1 MCV 89.4 MCH 29.7 MCHC 33.2 RDW 15.0 H Plt Count 239 Neut % (Auto) 72.3 Lymph % (Auto) 20.0 L [place] % (Auto) 6.9 Eos % (Auto) 0.4 L Baso % (Auto) 0.4 Neut # (Auto) 7400 H Lymph # (Auto) 2100 [place] # (Auto) 700 Eos # (Auto) 0 Baso # (Auto) 0 PT 10.8 INR 0.9 VBG pH VBG pCO2 VBG pO2 VBG HCO3 VBG Total CO2 VBG O2 Saturation VBG Base Excess Sodium Potassium Chloride Carbon Dioxide BUN Creatinine Estimated GFR BUN/Creatinine Ratio Glucose Hemoglobin A1c Lactate Calcium Magnesium Ferritin Total Bilirubin AST ALT Alkaline Phosphatase Total Creatine Kinase CK-MB (CK-2) CK-MB (CK-2) Rel Index Troponin I C-Reactive Protein NT-Pro-B Natriuret Pep Total Protein Albumin Globulin Albumin/Globulin Ratio Lipase Urine Color Urine Appearance Urine pH Ur Specific [place] Urine Protein Urine Glucose (UA) Urine Ketones Urine Occult Blood Urine Nitrate Urine Bilirubin Urine Urobilinogen Ur Leukocyte Esterase Urine RBC Urine WBC Ur Squamous Epith Cells Urine Bacteria Hyaline Casts Ur Culture Indicated? Ethyl Alcohol < 10 Ketones 0.16 08/23/19 08/23/19 08/23/19 19:02 19:02 19:20 WBC RBC Hgb Hct MCV MCH MCHC RDW Plt Count Neut % (Auto) Lymph % (Auto) [place] % (Auto) Eos % (Auto) Baso % (Auto) Neut # (Auto) Lymph # (Auto) [place] # (Auto) Eos # (Auto) Baso # (Auto) PT INR VBG pH 7.44 H VBG pCO2 39.9 L VBG pO2 43 VBG HCO3 27 VBG Total CO2 29 VBG O2 Saturation 81 H VBG Base Excess 3.0 Sodium 138 Potassium 2.6 L* Chloride 108 H Carbon Dioxide 27 BUN 10 Creatinine 0.71 Estimated GFR > 60.0 BUN/Creatinine Ratio 14.1 Glucose 43 L* Hemoglobin A1c Lactate 0.6 L Calcium 8.1 L Magnesium 1.7 Ferritin 47 Total Bilirubin 0.6 AST 30 ALT 15 Alkaline Phosphatase 81 Total Creatine Kinase 47 CK-MB (CK-2) TNP CK-MB (CK-2) Rel Index TNP Troponin I < 0.012 C-Reactive Protein < 0.5 NT-Pro-B Natriuret Pep 6030 H Total Protein 5.9 L Albumin 2.7 L Globulin 3.2 Albumin/Globulin Ratio 0.8 L Lipase 11 L Urine Color Urine Appearance Urine pH Ur Specific [place] Urine Protein Urine Glucose (UA) Urine Ketones Urine Occult Blood Urine Nitrate Urine Bilirubin Urine Urobilinogen Ur Leukocyte Esterase Urine RBC Urine WBC Ur Squamous Epith Cells Urine Bacteria Hyaline Casts Ur Culture Indicated? Ethyl Alcohol Ketones 08/23/19 08/24/19 08/24/19 23:46 00:59 05:11 WBC 6.1 RBC 3.75 L Hgb 11.2 L Hct 33.6 L MCV 89.6 MCH 29.9 MCHC 33.4 RDW 15.4 H Plt Count 211 Neut % (Auto) 62.3 Lymph % (Auto) 27.9 [place] % (Auto) 8.2 Eos % (Auto) 1.3 L Baso % (Auto) 0.3 Neut # (Auto) 3800 Lymph # (Auto) 1700 [place] # (Auto) 500 Eos # (Auto) 100 Baso # (Auto) 0 PT INR VBG pH VBG pCO2 VBG pO2 VBG HCO3 VBG Total CO2 VBG O2 Saturation VBG Base Excess Sodium Potassium 3.7 Chloride Carbon Dioxide BUN Creatinine Estimated GFR BUN/Creatinine Ratio Glucose Hemoglobin A1c Lactate Calcium Magnesium Ferritin Total Bilirubin AST ALT Alkaline Phosphatase Total Creatine Kinase CK-MB (CK-2) CK-MB (CK-2) Rel Index Troponin I C-Reactive Protein NT-Pro-B Natriuret Pep Total Protein Albumin Globulin Albumin/Globulin Ratio Lipase Urine Color Yellow Urine Appearance Clear Urine pH 7.0 Ur Specific [place] 1.020 Urine Protein 3+ H Urine Glucose (UA) Trace H Urine Ketones Negative Urine Occult Blood Trace-intact Urine Nitrate Negative Urine Bilirubin Negative Urine Urobilinogen 0.2 Ur Leukocyte Esterase Negative Urine RBC 1-5/hpf Urine WBC 0-1/hpf Ur Squamous Epith Cells 1-5 /hpf Urine Bacteria Few (2-10) H Hyaline Casts 1-5/lpf Ur Culture Indicated? Cult not indicated Ethyl Alcohol Ketones 08/24/19 08/24/19 05:11 05:11 WBC RBC Hgb Hct MCV MCH MCHC RDW Plt Count Neut % (Auto) Lymph % (Auto) [place] % (Auto) Eos % (Auto) Baso % (Auto) Neut # (Auto) Lymph # (Auto) [place] # (Auto) Eos # (Auto) Baso # (Auto) PT INR VBG pH VBG pCO2 VBG pO2 VBG HCO3 VBG Total CO2 VBG O2 Saturation VBG Base Excess Sodium 136 L Potassium 4.4 Chloride 111 H Carbon Dioxide 25 BUN 9 Creatinine 0.68 Estimated GFR > 60.0 BUN/Creatinine Ratio 13.2 Glucose 132 H Hemoglobin A1c 7.7 H Lactate Calcium 8.0 L Magnesium Ferritin Total Bilirubin AST ALT Alkaline Phosphatase Total Creatine Kinase CK-MB (CK-2) CK-MB (CK-2) Rel Index Troponin I C-Reactive Protein NT-Pro-B Natriuret Pep Total Protein Albumin Globulin Albumin/Globulin Ratio Lipase Urine Color Urine Appearance Urine pH Ur Specific [place] Urine Protein Urine Glucose (UA) Urine Ketones Urine Occult Blood Urine Nitrate Urine Bilirubin Urine Urobilinogen Ur Leukocyte Esterase Urine RBC Urine WBC Ur Squamous Epith Cells Urine Bacteria Hyaline Casts Ur Culture Indicated? Ethyl Alcohol Ketones Discharge Plan Discharge Plan Patient Disposition: Home Discharge orders & Medications Prescriptions: New insulin aspart U-100 [Novolog Flexpen U-100 Insulin] 100 unit/mL (3 mL) Insulin Pen 0 unit SUBCUT ACHS 30 Days RF: 0 Lantus U-100 Insulin 100 unit/mL solution 8 unit SUBCUT BEDTIME 30 Days RF: 0 Continued Marijuana 1 ea inhalation DAILY RF: 0 atorvastatin 40 mg tablet 40 mg PO QPM RF: 0 cholecalciferol (vitamin D3) [Vitamin D3] 1,000 unit Capsule 3,000 unit PO DAILY RF: 0 insulin aspart U-100 [Novolog Flexpen U-100 Insulin] 100 UNIT/1 ML insulin pen 1 dose subcut QIDACHS RF: 0 Basaglar KwikPen U-100 Insulin 100 unit/mL (3 mL) insulin pen 8 unit SUBCUT BID RF: 0 hydralazine 10 mg Tablet 20 mg PO BID RF: 0 tizanidine 2 mg Tablet 2 mg PO Q8H PRN (Reason: Muscle Spasm) RF: 0 sucralfate 1 gram Tablet 1 g PO QID RF: 0 cyanocobalamin (vitamin B-12) 1,000 mcg Tablet 1,000 mcg PO DAILY RF: 0 amlodipine 2.5 mg Tablet 2.5 mg PO DAILY RF: 0 lisinopril 30 mg Tablet 30 mg PO DAILY RF: 0 oxybutynin chloride 5 mg Tablet 5 mg PO BEDTIME RF: 0 Myrbetriq 25 mg Tablet Extended Release 24 Hr 25 mg PO DAILY RF: 0 aspirin [Aspirin Low Dose] 81 mg tablet,delayed release (DR/EC) 81 mg PO DAILY Qty: 30 RF: 0 pantoprazole 40 mg tablet,delayed release (DR/EC) 40 mg PO BID 60 Days Qty: 120 RF: 0 mirtazapine 7.5 MG tablet 15 mg PO BEDTIME RF: 0 No Action (DME) pen needle, diabetic 32 gauge x 5/32 needle RF: 0 Follow up/Referrals: Jyoti Streeter MD [Primary Care Provider] - Diet/Activity/Treatments Diet: Carb-consistent/Diabetic Activity: as tolerated Other treatments: Please have Home Health RN notify Dr. Brumfield for all Hypoglycemic episodes ( especially when Medics are called_) Patient or to call Dr. Brumfield daily regarding Diabetic Management. [phone] Visit Report/Discharge Packet Instructions: Blood Glucose, Insulin, How to Check Your Blood Glucose, Type 2 Diabetes, DI for Hypoglycemia, How to Prevent Falls Visit Report Forms: Patient Portal/API, Stroke Signs & Symptoms Discharge Data Primary Care Provider: Jyoti Streeter Attending Provider: Kelly Resendiz Admit Date/Time: 08/23/19 20:40 Discharges patient from system. Discharge Date/Time: 08/24/19 12:01 Quality VTE Deep Vein Thrombosis/Pulmonary Embolism Present on Admission: No
== END 2019-08-24 12:01 | disposition home or self-care (01) ==
LOC: ED 18:49 → AC 22:55
PROVIDERS: Admitting Provider Nurse Practitioner Family; Emergency Provider Emergency Medicine; PCP Family Medicine; Referring Provider Emergency Medicine; Visit Provider Nurse Practitioner Family
DX: E10.649 Type 1 diabetes mellitus with hypoglycemia without coma (principal); R51 Headache; E87.6 Hypokalemia; I10 Essential (primary) hypertension; E78.5 Hyperlipidemia, unspecified; K21.9 Gastro-esophageal reflux disease without esophagitis; N39.41 Urge incontinence; F17.210 Nicotine dependence, cigarettes, uncomplicated; Z86.73 Personal history of transient ischemic attack (TIA), and cerebral infarction without residual deficits; Z79.4 Long term (current) use of insulin
CPT/HCPCS: 36415; 70450; 80048; 80053; 80320; 81001; 82009; 82550; 82728; 82805; 82962; 83036; 83605; 83690; 83735; 83880; 84132; 84484; 85025; 85610; 86140; 87040; 93005; 96372; 96374; 99284; G0378; J1650; J3480

== ENCOUNTER 2019-08-26 17:46 | Emergency (ER) | payer MEDICARE, MEDICAID, SELFPAY ==
[2019-08-26 18:03] VITALS: BP 192/103; PULSE 78; RESP 15; TEMP 36.7; O2SAT 98; BMI 18.5
--- NOTE | 2019-08-26 18:17 | ED.DIZZY ---
HPI - Dizziness General Chief Complaint: Dizziness Stated Complaint: dizzy, exhausted Time Seen by Provider: 08/26/19 18:05 Source: patient Mode of arrival: Wheelchair Limitations: no limitations History of Present Illness HPI Narrative: The patient fell April 2019. She suffered a left shoulder injury, and a subdural hematoma. Following the subdural hematoma she has had issues with recurring periods of dizziness. She has no focal numbness weakness. 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 She is diabetic, her glucose has been elevated. She has had no associated URI symptoms, respiratory illness, abdominal discomfort, nausea vomiting. She has a history of UTI, she currently has no dysuria. She drinks alcohol daily and continues to smoke daily. She was recently admitted with hypoglycemia. Related Data Home Medications Medication Instructions Recorded Confirmed Marijuana 1 ea INHALATION DAILY 10/08/17 08/02/19 atorvastatin 40 mg PO QPM 10/08/17 08/02/19 cholecalciferol (vitamin D3) 3,000 unit PO DAILY 10/08/17 08/02/19 [Vitamin D3] insulin aspart U-100 [Novolog 1 dose SUBCUT QIDACHS 10/08/17 08/02/19 Flexpen U-100 Insulin] pen needle, diabetic 10/30/17 08/02/19 mirtazapine 15 mg PO BEDTIME 02/19/18 08/02/19 Basaglar KwikPen U-100 Insulin 8 unit SUBCUT BID 02/20/19 08/02/19 Myrbetriq 25 mg PO DAILY 08/02/19 08/02/19 amlodipine 2.5 mg PO DAILY 08/02/19 08/02/19 cyanocobalamin (vitamin B-12) 1,000 mcg PO DAILY 08/02/19 08/02/19 hydralazine 20 mg PO BID 08/02/19 08/02/19 lisinopril 30 mg PO DAILY 08/02/19 08/02/19 oxybutynin chloride 5 mg PO BEDTIME 08/02/19 08/02/19 sucralfate 1 g PO QID 08/02/19 08/02/19 tizanidine 2 mg PO Q8H PRN 08/02/19 08/02/19 Previous Rx's Medication Instructions Recorded aspirin [Aspirin Low Dose] 81 mg PO DAILY #30 tab 08/04/19 pantoprazole 40 mg PO BID 60 Days #120 tab 08/04/19 insulin aspart U-100 [Novolog 0 unit SUBCUT ACHS 30 Days ml 08/24/19 Flexpen U-100 Insulin] insulin glargine [Lantus U-100 8 unit SUBCUT BEDTIME 30 Days ml 08/24/19 Insulin] Allergies Allergy/AdvReac Type Severity Reaction Status Date / Time Iodine and Iodide Containing Allergy Unknown Verified 08/26/19 18:03 Produc [IODINE AND IODIDE CONTAINING PRODUC] latex [LATEX] Allergy Unknown Verified 08/26/19 18:03 Review of Systems Review of Systems ROS Unobtainable: All systems reviewed & are unremarkable except as noted in HPI and below Constitutional Constitutional: Denies chills, Denies fever(s), Denies lethargy and Denies weakness Eyes Eyes: Denies change in vision and Denies loss of vision ENT Ears, Nose, Mouth, and Throat: Denies change in voice, Denies vertigo, Reports dizziness, Denies neck pain and Denies sore throat Cardiovascular Cardiovascular: Denies chest pain, Denies irregular heart rhythm, Denies lightheadedness, Denies palpitations, Denies dyspnea, Denies dyspnea on exertion and Denies orthopnea Respiratory Respiratory: Denies cough, Denies dyspnea, Denies dyspnea on exertion and Denies wheezing Gastrointestinal Gastrointestinal: Denies abdominal pain, Denies change in bowel habits, Denies diarrhea, Denies nausea and Denies vomiting Genitourinary Genitourinary: Denies dysuria Musculoskeletal Musculoskeletal: Denies back pain, Denies myalgias, Denies arthralgias and Denies neck pain Integumentary/Breasts Skin/Breast: Denies erythema and Denies rash Neurologic Neurologic: Reports confusion, Denies vertigo, Reports dizziness, Denies loss of vision and Denies weakness Psychiatric Psychiatric: Reports confusion Endocrine Endocrine: Denies palpitations Allergic/Immunologic Allergic/Immunologic: Denies wheezing Patient History Medical History CVA (cerebral vascular accident) (Acute) Diabetes (Acute) Gallbladder disease (Chronic) Hypertension (Acute) Surgical History No pertinent past surgical history (Acute) Tubal ligation status (Acute) Family History Mother Heart disease Social History household members: significant other Smoking Status: Current every day smoker alcohol intake: former Smoking Status: Current every day smoker tobacco type: cigarettes alcohol intake frequency: holidays/special occasions only Alcohol type: hard liquor Substance Use Type: marijuana Exam Initial Vital Signs Initial Vital Signs: Vital Signs Temperature 98.0 F 08/26/19 18:03 Pulse Rate 78 08/26/19 18:03 Respiratory Rate 15 08/26/19 18:03 Blood Pressure 192/103 H 08/26/19 18:03 Pulse Oximetry 98 08/26/19 18:03 Const General: cooperative and well developed Nutritional Appearance: well nourished Other: Limited historian. Her helps quite a bit. [facility] Head: normocephalic and atraumatic Nose: external nose normal Face and sinus: sinuses nontender, face symmetric, no sinus tenderness and No dry mucous membranes Mouth: oral mucosae normal and moist mucous membranes Teeth and gingiva: dentition normal Throat: tonsils normal and uvula midline Eyes General: appearance normal, both eyes and all related structures Eyelids: eyelids normal Conjunctivae: conjunctivae normal Sclera: sclerae normal Pupils: PERRL EOM: EOM intact bilaterally Neck Neck: supple, No midline deformity and No tender Thyroid: thyroid normal Chest Chest: normal inspection of the chest Resp Effort & Inspection: normal respiratory effort and able to speak in complete sentences Auscultation: clear to auscultation bilaterally, no rales, no rhonchi and no wheezes Cardio Rate: regular rate Rhythm: regular rhythm Heart Sounds: S1 normal, S2 normal, no click, no gallops, no murmurs and no rubs Pulses: normal peripheral pulses GI Inspection: non-distended Palpation: soft, no hepatosplenomegaly, No guarding and No tender Auscultation: normal bowel sounds Skin General: no rashes or lesions noted and No jaundice Neuro General: alert, oriented x3, gait normal and no focal motor deficits Speech: speech normal Extrem General: full ROM, no pedal edema and no calf tenderness Psych Appearance: well kempt Mental Status: mental status grossly normal Attitude: cooperative Thought Content: normal Course Course Course Narrative: The patient was IV hydrated. Hyperglycemia improved after receiving a small dose of insulin. Her glucose improved from 379 to 276. She was clinically feeling better after the IV fluids were given. But is a stable time of discharge. She is more alert, better historian. Orders Ordered: ED Orders 08/26/19 18:25 Basic Metabolic Panel Stat Complete Blood Count AUTO DIFF Stat Prothrombin Time INR Stat Troponin I Stat 08/26/19 19:06 Urine Microscopic Stat Discontinued Medications Sodium Chloride (Normal Saline 0.9%) 1,000 mls @ 150 mls/hr IV CONT MIRIAM Last Infusion: 08/26/19 21:07 Dose: 0 mls/hr Documented by: Infusion: 08/26/19 20:18 Dose: 999 mls/hr Documented by: Admin: 08/26/19 18:24 Dose: 150 mls/hr Documented by: CRISTA Sodium Chloride (Normal Saline 0.9%) 1,000 mls @ 1,000 mls/hr IV BOLUS ONE Stop: 08/26/19 20:44 Last Admin: 08/26/19 20:17 Dose: Not Given Documented by: CRISTA Insulin Human Regular (Humulin R) 5 unit IV NOW ONE Stop: 08/26/19 19:46 Last Admin: 08/26/19 20:50 Dose: Not Given Documented by: CRISTA Insulin Human Regular (Humulin R) 5 unit SUBCUT NOW ONE Stop: 08/26/19 20:43 Last Admin: 08/26/19 21:01 Dose: 2 unit Documented by: CRISTA Cosigned by: AVNI Vital Signs Vital signs: Vital Signs - 8 hr 08/26/19 20:36 08/26/19 21:49 Pulse Rate 71 77 Respiratory Rate 15 Blood Pressure 172/91 H Blood Pressure [Right Arm] 170/97 H Pulse Oximetry 98 99 MDM - Dizziness Lab Data Result diagrams: 08/26/19 18:25 08/26/19 18:25 Labs: Lab Results 08/26/19 08/26/19 08/26/19 Range/Units 18:25 18:25 18:25 WBC 5.7 (4.5-11.0) X10^3/uL RBC 3.65 L (4.0-5.2) X10^6/uL Hgb 10.8 L (12.0-16.0) g/dL Hct 32.8 L (36-46) % MCV 89.8 (80-100) fL MCH 29.7 (26-34) PG MCHC 33.0 (30-36) % RDW 15.2 H (11.6-14.8) % Plt Count 224 (150-400) X10^3/uL Neut % (Auto) 60.4 (50-75) % Lymph % (Auto) 28.4 (25-40) % [place] % (Auto) 9.9 (3-14) % Eos % (Auto) 0.9 L (2-4) % Baso % (Auto) 0.4 (0-2) % Neut # (Auto) 3400 (0490-3883) /uL Lymph # (Auto) 1600 (2888-4386) /uL [place] # (Auto) 600 (0-900) /uL Eos # (Auto) 100 (0-450) /uL Baso # (Auto) 0 (0-100) /uL PT 10.8 (10.1-12.7) SECONDS INR 0.9 (0.9-1.3) Sodium 132 L (137-145) mmol/L Potassium 3.8 (3.4-5.1) mmol/L Chloride 105 (98-107) mmol/L Carbon Dioxide 24 (22-32) mmol/L BUN 17 (7-17) mg/dL Creatinine 0.96 (0.52-1.04) mg/dL Estimated GFR 58.7 L (>60) mL/min BUN/Creatinine Ratio 17.7 (6-22) Glucose 379 H D (80-110) mg/dL Calcium 8.1 L (8.4-10.2) mg/dL Troponin I < 0.012 (0.01-0.034) ng/mL Urine RBC (0-5/HPF) Urine WBC (0-5/HPF) Ur Squamous Epith Cells (0-5/HPF) Urine Bacteria (None) Ur Culture Indicated? 08/26/19 Range/Units 19:06 WBC (4.5-11.0) X10^3/uL RBC (4.0-5.2) X10^6/uL Hgb (12.0-16.0) g/dL Hct (36-46) % MCV (80-100) fL MCH (26-34) PG MCHC (30-36) % RDW (11.6-14.8) % Plt Count (150-400) X10^3/uL Neut % (Auto) (50-75) % Lymph % (Auto) (25-40) % [place] % (Auto) (3-14) % Eos % (Auto) (2-4) % Baso % (Auto) (0-2) % Neut # (Auto) (4259-8333) /uL Lymph # (Auto) (4337-2939) /uL [place] # (Auto) (0-900) /uL Eos # (Auto) (0-450) /uL Baso # (Auto) (0-100) /uL PT (10.1-12.7) SECONDS INR (0.9-1.3) Sodium (137-145) mmol/L Potassium (3.4-5.1) mmol/L Chloride (98-107) mmol/L Carbon Dioxide (22-32) mmol/L BUN (7-17) mg/dL Creatinine (0.52-1.04) mg/dL Estimated GFR (>60) mL/min BUN/Creatinine Ratio (6-22) Glucose (80-110) mg/dL Calcium (8.4-10.2) mg/dL Troponin I (0.01-0.034) ng/mL Urine RBC 1-5/hpf (0-5/HPF) Urine WBC 0-1/hpf (0-5/HPF) Ur Squamous Epith Cells 1-5 /hpf (0-5/HPF) Urine Bacteria Few (2-10) H (None) Ur Culture Indicated? Cult not indicated Point of Care Testing Glucose POC 276 Urine Dip Bedside Urine Glucose 1000 mg/dl Bedside Urine Bilirubin - Negative Bedside Urine Ketone - Negative Urine Specific [place] 1.020 Bedside Urine Occult Blood + Bedside Urine pH 6.0 Bedside Urine Protein + 30 Bedside Urine Urobilinogen - Negative Bedside Urine Nitrite - Negative Bedside Urine Leukocytes - Negative Esterase Discharge Plan Departure Patient Disposition: Home Clinical Impression: Acute hyperglycemia, Dizziness, Dehydration, History of subdural hematoma Discharge Date/Time: 08/26/19 21:58 Instructions: DI for Hyperglycemia -- Adult, DI for Dizziness-Nonvertigo Activity Restrictions/Additional Instructions: Be sure you are drinking plenty of water daily, you should have to urinate several times through the course of the day. Avoid drinks with glucose in them, such as Gatorade. Be sure you are on a well-balanced diabetic diet. Call your doctor Saturday for follow-up. Return the ER as needed steady. Prescriptions: No Action Marijuana 1 ea inhalation DAILY RF: 0 atorvastatin 40 mg tablet 40 mg PO QPM RF: 0 cholecalciferol (vitamin D3) [Vitamin D3] 1,000 unit Capsule 3,000 unit PO DAILY RF: 0 insulin aspart U-100 [Novolog Flexpen U-100 Insulin] 100 UNIT/1 ML insulin pen 1 dose subcut QIDACHS RF: 0 Basaglar KwikPen U-100 Insulin 100 unit/mL (3 mL) insulin pen 8 unit SUBCUT BID RF: 0 hydralazine 10 mg Tablet 20 mg PO BID RF: 0 tizanidine 2 mg Tablet 2 mg PO Q8H PRN (Reason: Muscle Spasm) RF: 0 sucralfate 1 gram Tablet 1 g PO QID RF: 0 cyanocobalamin (vitamin B-12) 1,000 mcg Tablet 1,000 mcg PO DAILY RF: 0 amlodipine 2.5 mg Tablet 2.5 mg PO DAILY RF: 0 lisinopril 30 mg Tablet 30 mg PO DAILY RF: 0 oxybutynin chloride 5 mg Tablet 5 mg PO BEDTIME RF: 0 Myrbetriq 25 mg Tablet Extended Release 24 Hr 25 mg PO DAILY RF: 0 aspirin [Aspirin Low Dose] 81 mg tablet,delayed release (DR/EC) 81 mg PO DAILY Qty: 30 RF: 0 pantoprazole 40 mg tablet,delayed release (DR/EC) 40 mg PO BID 60 Days Qty: 120 RF: 0 (DME) pen needle, diabetic 32 gauge x 5/32 needle RF: 0 mirtazapine 7.5 MG tablet 15 mg PO BEDTIME RF: 0 insulin aspart U-100 [Novolog Flexpen U-100 Insulin] 100 unit/mL (3 mL) Insulin Pen 0 unit SUBCUT ACHS 30 Days RF: 0 Lantus U-100 Insulin 100 unit/mL solution 8 unit SUBCUT BEDTIME 30 Days RF: 0 Referrals: Jyoti Streeter MD [Primary Care Provider] -
[2019-08-26] MEDS: SODIUM CHLORIDE 0.9% 1,000 ML 150 ML IV (18:24)
[2019-08-26 18:50] LABS: Add Manual Diff / Slide Review NO; Basophils Absolute Auto 0 /uL (0-100); Basophils Percent Auto 0.4 % (0-2); Eosinophils Absolute Auto 100 /uL (0-450); Eosinophils Percent Auto 0.9 % (2-4); Hematocrit 32.8 % (36-46); Hemoglobin 10.8 g/dL (12.0-16.0); Lymphocytes Absolute Auto 1600 /uL (1100-4500); Lymphocytes Percent Auto 28.4 % (25-40); Mean Corpuscular Hemoglobin 29.7 PG (26-34); Mean Corpuscular Volume 89.8 fL (80-100); Monocytes Absolute Auto 600 /uL (0-900); Monocytes Percent Auto 9.9 % (3-14); Neutrophils Absolute Auto 3400 /uL (1500-7000); Neutrophils Percent Auto 60.4 % (50-75); Platelet Count 224 X10^3/uL (150-400); Red Blood Cell Count 3.65 X10^6/uL (4.0-5.2); Red Cell Distribution Width 15.2 % (11.6-14.8); White Blood Cell Count 5.7 X10^3/uL (4.5-11.0)
[2019-08-26 18:54] LABS: INR 0.9 (0.9-1.3); Prothrombin Time 10.8 SECONDS (10.1-12.7)
[2019-08-26 18:57] LABS: BUN Creatinine Ratio 17.7 (6-22); Blood Urea Nitrogen 17 mg/dL (7-17); Calcium 8.1 mg/dL (8.4-10.2); Carbon Dioxide 24 mmol/L (22-32); Chloride 105 mmol/L (98-107); Estimated Glomerular Filt Rate 58.7 mL/min (>60); Glucose 379 mg/dL (80-110); HEMOLYSIS < 15 (0-50); Potassium 3.8 mmol/L (3.4-5.1); Sodium 132 mmol/L (137-145)
[2019-08-26 19:09] LABS: Troponin I < 0.012 ng/mL (0.01-0.034)
[2019-08-26 19:59] LABS: Bacteria Urine Few (2-10); Culture Indicated Urine Cult Not Indicated; RBC Urine 1-5/HPF (0-5/HPF); Squamous Epithelial Cell Urine 1-5 /HPF (0-5/HPF); WBC Urine 0-1/HPF (0-5/HPF)
[2019-08-26 20:36] VITALS: BP 170/97; PULSE 71; RESP 15; O2SAT 98
[2019-08-26] MEDS: INSULIN REGULAR 100 UNIT/ML 3 ML VIAL SUBCUT (21:01)
[2019-08-26 21:49] VITALS: BP 172/91; PULSE 77; O2SAT 99
== END 2019-08-26 21:58 | disposition home or self-care (01) ==
PROVIDERS: Emergency Provider Emergency Medicine; PCP Family Medicine
DX: E11.65 Type 2 diabetes mellitus with hyperglycemia (principal); Z79.4 Long term (current) use of insulin; R42 Dizziness and giddiness; E86.0 Dehydration; Z86.79 Personal history of other diseases of the circulatory system
CPT/HCPCS: 36415; 80048; 81003; 81015; 82962; 84484; 85025; 85610; 93005; 96360; 96361; 96372; 99284

== ENCOUNTER 2019-09-05 13:50 | Emergency (ER) | payer MEDICARE, MEDICAID, SELFPAY ==
[2019-09-05 14:20] VITALS: BP 183/100; PULSE 88; RESP 13; TEMP 37.3; O2SAT 98
--- NOTE | 2019-09-05 14:31 | ED_ITS ---
HPI - General Adult General Chief complaint: Diabetic Problem Stated complaint: blood sugar level not good and dont feel good Time Seen by Provider: 09/05/19 14:30 Source: patient and family Mode of arrival: Wheelchair Limitations: no limitations History of Present Illness HPI narrative: This is a 64-year-old female comes to the emergency department with complaint of not feeling well and hyperglycemia. Patient's sugar was in the 500 range at home. She had her normal 80 units of Lantus as well as 2 doses of Humalog. Patient came down to the 300 range at home and has not been check since. Patient has not had any fevers. No cold, cough or congestion. No chest pain, no chest pressure or shortness of breath. Her abdomen felt a little bloated. She has not had any vomiting but has felt slightly nauseated. She denies any changes to bowel movements. No diarrhea, no constipation, no black or bloody stools. She has noticed some frequency with urination but no dysuria, urgency or large or small amounts of urine output. She does have a [id number] headache today. She states that she was treated for a bladder infection about 3 weeks ago and has completed her antibiotics. Patient family were concerned because of her hyperglycemia and that she just was not feeling well so she is brought in for eval. She has not had any other medication changes other than her Lantus dose was increased to 80 units. Related Data Home Medications Medication Instructions Recorded Confirmed Marijuana 1 ea INHALATION DAILY 10/08/17 08/02/19 atorvastatin 40 mg PO QPM 10/08/17 08/02/19 cholecalciferol (vitamin D3) 3,000 unit PO DAILY 10/08/17 08/02/19 [Vitamin D3] insulin aspart U-100 [Novolog 1 dose SUBCUT QIDACHS 10/08/17 08/02/19 Flexpen U-100 Insulin] pen needle, diabetic 10/30/17 08/02/19 mirtazapine 15 mg PO BEDTIME 02/19/18 08/02/19 Basaglar KwikPen U-100 Insulin 8 unit SUBCUT BID 02/20/19 08/02/19 Myrbetriq 25 mg PO DAILY 08/02/19 08/02/19 amlodipine 2.5 mg PO DAILY 08/02/19 08/02/19 cyanocobalamin (vitamin B-12) 1,000 mcg PO DAILY 08/02/19 08/02/19 hydralazine 20 mg PO BID 08/02/19 08/02/19 lisinopril 30 mg PO DAILY 08/02/19 08/02/19 oxybutynin chloride 5 mg PO BEDTIME 08/02/19 08/02/19 sucralfate 1 g PO QID 08/02/19 08/02/19 tizanidine 2 mg PO Q8H PRN 08/02/19 08/02/19 Previous Rx's Medication Instructions Recorded aspirin [Aspirin Low Dose] 81 mg PO DAILY #30 tab 08/04/19 pantoprazole 40 mg PO BID 60 Days #120 tab 08/04/19 insulin aspart U-100 [Novolog 0 unit SUBCUT ACHS 30 Days ml 08/24/19 Flexpen U-100 Insulin] insulin glargine [Lantus U-100 8 unit SUBCUT BEDTIME 30 Days ml 08/24/19 Insulin] Allergies Allergy/AdvReac Type Severity Reaction Status Date / Time Iodine and Iodide Containing Allergy Unknown Verified 08/26/19 18:03 Produc [IODINE AND IODIDE CONTAINING PRODUC] latex [LATEX] Allergy Unknown Verified 08/26/19 18:03 Review of Systems Review of Systems ROS Unobtainable: All systems reviewed & are unremarkable except as noted in HPI and below Patient History Medical History CVA (cerebral vascular accident) (Acute) Diabetes (Acute) Gallbladder disease (Chronic) Hypertension (Acute) Surgical History No pertinent past surgical history (Acute) Tubal ligation status (Acute) Social History household members: significant other Smoking Status: Current every day smoker alcohol intake: former Smoking Status: Current every day smoker tobacco type: cigarettes alcohol intake frequency: holidays/special occasions only Alcohol type: hard liquor Substance Use Type: marijuana Exam Narrative Exam Narrative: GENERAL: Alert and oriented x three, well-appearing female in mild distress. HEENT: Head normocephalic, atraumatic, EOMI, pupils reactive, face symmetric, moist mucous membranes NECK: Supple, full range of motion CARDIOVASCULAR: Regular rate and rhythm without murmurs, rubs or gallops. RESPIRATORY: Breath sounds equal bilaterally, no wheezes rales or rhonchi. ABDOMEN: Soft, nontender. Mildly distended. Normoactive bowel sounds all 4 quadrants. No guarding or rebound, rigidity, no mass. : No CVA tenderness EXTREMITIES: Normal range of motion, no clubbing or edema. Neurovascularly intact NEUROLOGICAL: Cranial nerves II through XII grossly intact. Moving all extremities SKIN: Warm, dry, no petechiae, no rashes or lesions. Initial Vital Signs Initial Vital Signs: Vital Signs Temperature 99.1 F 09/05/19 14:20 Pulse Rate 88 09/05/19 14:20 Respiratory Rate 13 09/05/19 14:20 Blood Pressure 183/100 H 09/05/19 14:20 Pulse Oximetry 98 09/05/19 14:20 Course Orders Ordered: ED Orders 09/05/19 14:00 CBC Auto Diff [Complete Blood Count AUTO DIFF] Stat Comprehensive Metabolic Panel Stat Ketones (Beta-Hydroxybutyrate) Stat Lipase Stat 09/05/19 14:55 US abdomen complete Stat 09/05/19 15:17 EKG-12 Lead Stat 09/05/19 15:34 UA dip and micro [Urinalysis and Microscopic] Stat Discontinued Medications Sodium Chloride (Normal Saline 0.9%) 1,000 mls @ 1,000 mls/hr IV BOLUS ONE Stop: 09/05/19 15:54 Last Infusion: 09/05/19 17:26 Dose: 0 mls/hr Documented by: Admin: 09/05/19 15:34 Dose: 1,000 mls/hr Documented by: ALETA Tramadol HCl (Ultram) 50 mg PO NOW ONE Stop: 09/05/19 15:21 Last Admin: 09/05/19 15:34 Dose: 50 mg Documented by: ALETA Vital Signs Vital signs: Vital Signs - 8 hr 09/05/19 14:20 09/05/19 16:46 Temperature 99.1 F Pulse Rate 88 76 Respiratory Rate 13 16 Blood Pressure 183/100 H Blood Pressure [Right Arm] 187/97 H Pulse Oximetry 98 99 Medical Decision Making Lab Data Lab results reviewed: Yes I reviewed the patient's lab results. Result diagrams: 09/05/19 14:00 09/05/19 14:00 Labs: Lab Results 09/05/19 09/05/19 09/05/19 Range/Units 14:00 14:00 14:00 WBC 9.8 (4.5-11.0) X10^3/uL RBC 3.86 L (4.0-5.2) X10^6/uL Hgb 11.3 L (12.0-16.0) g/dL Hct 34.9 L (36-46) % MCV 90.2 (80-100) fL MCH 29.3 (26-34) PG MCHC 32.4 (30-36) % RDW 15.4 H (11.6-14.8) % Plt Count 256 (150-400) X10^3/uL Neut % (Auto) 68.6 (50-75) % Lymph % (Auto) 22.1 L (25-40) % Glasscock % (Auto) 7.9 (3-14) % Eos % (Auto) 0.6 L (2-4) % Baso % (Auto) 0.8 (0-2) % Neut # (Auto) 6700 (8386-0199) /uL Lymph # (Auto) 2200 (2690-5983) /uL Glasscock # (Auto) 800 (0-900) /uL Eos # (Auto) 100 (0-450) /uL Baso # (Auto) 100 (0-100) /uL Sodium 137 (137-145) mmol/L Potassium 3.4 (3.4-5.1) mmol/L Chloride 109 H (98-107) mmol/L Carbon Dioxide 26 (22-32) mmol/L BUN 16 (7-17) mg/dL Creatinine 0.83 (0.52-1.04) mg/dL Estimated GFR > 60.0 (>60) mL/min BUN/Creatinine Ratio 19.3 (6-22) Glucose 217 H D (80-110) mg/dL Calcium 8.6 (8.4-10.2) mg/dL Total Bilirubin 0.5 (0.2-1.3) mg/dL AST 36 (14-36) IU/L ALT 29 (<35) IU/L Alkaline Phosphatase 79 (38-126) U/L Total Protein 6.4 (6.3-8.2) g/dL Albumin 3.0 L (3.5-5.0) g/dL Globulin 3.4 (1.7-4.1) g/dL Albumin/Globulin Ratio 0.9 L (1.0-2.8) Lipase (23-300) U/L Urine Color Urine Appearance Urine pH (4.5-8.0) Ur Specific Elgin (1.000-1.035) Urine Protein (Negative) Urine Glucose (UA) (Negative) g/dL Urine Ketones (NEGATIVE) Urine Occult Blood (Negative) Urine Nitrate (Negative) Urine Bilirubin (NEGATIVE) Urine Urobilinogen (0.2) E.U./dL Ur Leukocyte Esterase (NEGATIVE) Urine RBC (0-5/HPF) Urine WBC (0-5/HPF) Ur Squamous Epith Cells (0-5/HPF) Amorphous Sediment Urine Bacteria (None) Urine Mucus (Negative) Ur Culture Indicated? Ketones 0.09 (<0.27) mmol/L 09/05/19 09/05/19 Range/Units 14:00 15:34 WBC (4.5-11.0) X10^3/uL RBC (4.0-5.2) X10^6/uL Hgb (12.0-16.0) g/dL Hct (36-46) % MCV (80-100) fL MCH (26-34) PG MCHC (30-36) % RDW (11.6-14.8) % Plt Count (150-400) X10^3/uL Neut % (Auto) (50-75) % Lymph % (Auto) (25-40) % Glasscock % (Auto) (3-14) % Eos % (Auto) (2-4) % Baso % (Auto) (0-2) % Neut # (Auto) (8625-2022) /uL Lymph # (Auto) (3328-4879) /uL Glasscock # (Auto) (0-900) /uL Eos # (Auto) (0-450) /uL Baso # (Auto) (0-100) /uL Sodium (137-145) mmol/L Potassium (3.4-5.1) mmol/L Chloride (98-107) mmol/L Carbon Dioxide (22-32) mmol/L BUN (7-17) mg/dL Creatinine (0.52-1.04) mg/dL Estimated GFR (>60) mL/min BUN/Creatinine Ratio (6-22) Glucose (80-110) mg/dL Calcium (8.4-10.2) mg/dL Total Bilirubin (0.2-1.3) mg/dL AST (14-36) IU/L ALT (<35) IU/L Alkaline Phosphatase (38-126) U/L Total Protein (6.3-8.2) g/dL Albumin (3.5-5.0) g/dL Globulin (1.7-4.1) g/dL Albumin/Globulin Ratio (1.0-2.8) Lipase 19 L (23-300) U/L Urine Color Yellow Urine Appearance Clear Urine pH 5.5 (4.5-8.0) Ur Specific Elgin 1.020 (1.000-1.035) Urine Protein 2+ H (Negative) Urine Glucose (UA) 1+ H (Negative) g/dL Urine Ketones Negative (NEGATIVE) Urine Occult Blood 1+ H (Negative) Urine Nitrate Negative (Negative) Urine Bilirubin Negative (NEGATIVE) Urine Urobilinogen 0.2 (0.2) E.U./dL Ur Leukocyte Esterase Negative (NEGATIVE) Urine RBC 1-5/hpf (0-5/HPF) Urine WBC 1-5/hpf (0-5/HPF) Ur Squamous Epith Cells 5-10 /hpf H (0-5/HPF) Amorphous Sediment 1+ Urine Bacteria None seen (None) Urine Mucus 1+ H (Negative) Ur Culture Indicated? Cult not indicated Ketones (<0.27) mmol/L Point of Care Testing Glucose POC 213 Urine Dip Bedside Urine Glucose 250 mg/dl Bedside Urine Bilirubin - Negative Bedside Urine Ketone - Negative Urine Specific Elgin 1.025 Bedside Urine Occult Blood - Negative Bedside Urine pH 6.0 Bedside Urine Protein +++ 300 Bedside Urine Urobilinogen - Negative Bedside Urine Nitrite - Negative Bedside Urine Leukocytes - Negative Esterase Point of care testing: Point of Care Testing Glucose POC 213 Urine Dip Bedside Urine Glucose 250 mg/dl Bedside Urine Bilirubin - Negative Bedside Urine Ketone - Negative Urine Specific Elgin 1.025 Bedside Urine Occult Blood - Negative Bedside Urine pH 6.0 Bedside Urine Protein +++ 300 Bedside Urine Urobilinogen - Negative Bedside Urine Nitrite - Negative Bedside Urine Leukocytes - Negative Esterase Imaging Data US - abdomen: Radiologist's Impression: 25 Shwetha Taylor, DO Find Patient Imaging - Kristine Moon 64 F 1955 ACTIVITY DATE EXAM STATUS AUTHOR 09/05/19 14:55 Signed Marvin Perez [address] [address] Ultrasound Report Signed Patient: Kristine Moon RMR#: [id number] : 1955cct:[id number] Age/Sex: 64 / FDate of Service: 09/05/19 Loc: ED Accession Number: [id number] Procedure: US abdomen complete Ordering Provider: Shwetha Taylor D.O. PROCEDURE: US ABDOMEN COMPLETE INDICATIONS: BLOATED,NOT FEELING WELL,HYPERGLYCEMIA TECHNIQUE: Real-time scanning was performed of the abdominal and retroperitoneal organs, with image documentation. COMPARISON: [facility], CT, CT ABDOMEN PELVIS WO CON, 08/01/2019, 8:04. FINDINGS: Liver: The liver appears to be normal in size. No obvious liver lesions are identified. Increased vascularity is identified within the region of the andreina hepatis. The portal vein was not adequately evaluated, however. Gallbladder: Surgically absent Biliary ducts: Mild intrahepatic biliary dilatation is identified. The common bile duct was not definitely identified. Pancreas: Visualized portions of the pancreas are sonographically normal. Spleen: Spleen is normal in size and homogeneous in echotexture. Kidneys: Kidneys are normal in size and echotexture. Right kidney measures 11.6 cm long; left kidney measures 11.4 cm long. No hydronephrosis or shadowing nephrolithiasis. No solid masses. Aorta: Obscured by bowel gas Iliacs: Obscured by bowel gas IVC: Intrahepatic inferior vena cava is patent. Miscellaneous: There is a moderate amount of a parenchymal ascites. IMPRESSION: 1. Moderate amount of abdominal ascites. The origin is uncertain. 2. Increased vascularity within the region of the andreina hepatis is not adequately evaluated, but may be seen in the setting of portal venous hypertension or chronic portal vein thrombosis with corresponding cavernous transformation. Please consider contrast enhanced CT or MRI of the abdomen following a liver protocol, which may be performed on an outpatient basis, if indicated. Dictated by: Marvin Perez M.D. on 09/05/2019 at 15:46 Approved by: Marvin Perez M.D. on 09/05/2019 at 15:49 ECG Data Attestation: I personally reviewed and interpreted this ECG as follows: Interpretation: Sinus rhythm with a rate 81, P are 156 QRS of 95 and QTC of 428. Nonspecific ST change. Patient has prior EKG from 08/23/2019 that appears similar. MDM Narrative Medical decision making narrative: Patient poc glucose was 213 in department on arrival. Labs show anemia with hemoglobin 11 which appears stable. No elevation in white count. RDW is a little bit left. Platelets are normal. Patient does have 22% lymphocytes, sodiums 137 with a normal potassium chloride 109 with normal CO2 of 26. Renal function is in normal range and glucose is 217 serum. Calcium is improved from priors to 8.6 and LFTs are normal. Lipase shows no acute change. Urine does not show any infectious changes. Abdominal US shows moderate ascites. Increased vascularity in the origin of the andreina hepatis could be seen with portal venous hypertension or chronic portal venous thrombosis with corresponding cavernous transformation. Patient may bennett efit from contrast CT or MRI of the abdomen with liver protocol on outpatient basis. A CT of abdomen pelvis without ascites noted in July 2019. Discussed findings with patient. No clear cause, discussed need for follow up. Repeat glucose is appropriate with no other major changes. Patient states she is feeling much better at this time. She was given a dose of tramadol which I did verify with her pharmacy at [facility] she has taken in the past for pain and she felt much improved. Discharge Plan Departure Patient Disposition: Home Clinical Impression: Hyperglycemia, Ascites Discharge Date/Time: 09/05/19 17:42 Instructions: Ascites Activity Restrictions/Additional Instructions: Follow-up with your physician, your labs today do not show any major changes to her liver but you do have some fluid in her abdomen called ascites. This is likely why her abdomen is distended. Call Saturday morning to set up follow up. Radiology recommends you may benefit from a CT or MRI of your abdomen with a liver protocol to evaluate for portal venous hypertension or chronic portal vein thrombosis, call to discuss with your physician. Continue your home medications as prescribed. Return to the ER for fevers, altered mental status, new abdominal pain, rapidly worsening swelling of belly, persistent vomiting, black or bloody stools or other new or concerning symptoms. Prescriptions: No Action Marijuana 1 ea inhalation DAILY RF: 0 atorvastatin 40 mg tablet 40 mg PO QPM RF: 0 cholecalciferol (vitamin D3) [Vitamin D3] 1,000 unit Capsule 3,000 unit PO DAILY RF: 0 insulin aspart U-100 [Novolog Flexpen U-100 Insulin] 100 UNIT/1 ML insulin pen 1 dose subcut QIDACHS RF: 0 Basaglar KwikPen U-100 Insulin 100 unit/mL (3 mL) insulin pen 8 unit SUBCUT BID RF: 0 hydralazine 10 mg Tablet 20 mg PO BID RF: 0 tizanidine 2 mg Tablet 2 mg PO Q8H PRN (Reason: Muscle Spasm) RF: 0 sucralfate 1 gram Tablet 1 g PO QID RF: 0 cyanocobalamin (vitamin B-12) 1,000 mcg Tablet 1,000 mcg PO DAILY RF: 0 amlodipine 2.5 mg Tablet 2.5 mg PO DAILY RF: 0 lisinopril 30 mg Tablet 30 mg PO DAILY RF: 0 oxybutynin chloride 5 mg Tablet 5 mg PO BEDTIME RF: 0 Myrbetriq 25 mg Tablet Extended Release 24 Hr 25 mg PO DAILY RF: 0 aspirin [Aspirin Low Dose] 81 mg tablet,delayed release (DR/EC) 81 mg PO DAILY Qty: 30 RF: 0 pantoprazole 40 mg tablet,delayed release (DR/EC) 40 mg PO BID 60 Days Qty: 120 RF: 0 (DME) pen needle, diabetic 32 gauge x 5/32 needle RF: 0 mirtazapine 7.5 MG tablet 15 mg PO BEDTIME RF: 0 insulin aspart U-100 [Novolog Flexpen U-100 Insulin] 100 unit/mL (3 mL) Insulin Pen 0 unit SUBCUT ACHS 30 Days RF: 0 Lantus U-100 Insulin 100 unit/mL solution 8 unit SUBCUT BEDTIME 30 Days RF: 0 Referrals: Jyoti Streeter MD [Primary Care Provider] -
[2019-09-05 14:43] LABS: Add Manual Diff / Slide Review NO; Basophils Absolute Auto 100 /uL (0-100); Basophils Percent Auto 0.8 % (0-2); Eosinophils Absolute Auto 100 /uL (0-450); Eosinophils Percent Auto 0.6 % (2-4); Hematocrit 34.9 % (36-46); Hemoglobin 11.3 g/dL (12.0-16.0); Lymphocytes Absolute Auto 2200 /uL (1100-4500); Lymphocytes Percent Auto 22.1 % (25-40); Mean Corpuscular HGB Conc 32.4 % (30-36); Mean Corpuscular Hemoglobin 29.3 PG (26-34); Mean Corpuscular Volume 90.2 fL (80-100); Monocytes Absolute Auto 800 /uL (0-900); Monocytes Percent Auto 7.9 % (3-14); Neutrophils Absolute Auto 6700 /uL (1500-7000); Neutrophils Percent Auto 68.6 % (50-75); Platelet Count 256 X10^3/uL (150-400); Red Blood Cell Count 3.86 X10^6/uL (4.0-5.2); Red Cell Distribution Width 15.4 % (11.6-14.8); White Blood Cell Count 9.8 X10^3/uL (4.5-11.0)
[2019-09-05 14:53] LABS: Alanine Aminotransferase 29 IU/L (<35); Albumin Globulin Ratio 0.9 (1.0-2.8); Alkaline Phosphatase 79 U/L (38-126); Aspartate Aminotransferase 36 IU/L (14-36); BUN Creatinine Ratio 19.3 (6-22); Bilirubin Total 0.5 mg/dL (0.2-1.3); Blood Urea Nitrogen 16 mg/dL (7-17); Calcium 8.6 mg/dL (8.4-10.2); Carbon Dioxide 26 mmol/L (22-32); Chloride 109 mmol/L (98-107); Estimated Glomerular Filt Rate > 60.0 mL/min (>60); Globulin 3.4 g/dL (1.7-4.1); Glucose 217 mg/dL (80-110); HEMOLYSIS 31 (0-50); Potassium 3.4 mmol/L (3.4-5.1); Sodium 137 mmol/L (137-145); Total Protein 6.4 g/dL (6.3-8.2)
--- NOTE | 2019-09-05 14:55 | DI.US.S_ITS ---
PROCEDURE: US ABDOMEN COMPLETE INDICATIONS: BLOATED,NOT FEELING WELL,HYPERGLYCEMIA TECHNIQUE: Real-time scanning was performed of the abdominal and retroperitoneal organs, with image documentation. COMPARISON: [facility], CT, CT ABDOMEN PELVIS WO CON, 08/01/2019, 8:04. FINDINGS: Liver: The liver appears to be normal in size. No obvious liver lesions are identified. Increased vascularity is identified within the region of the andreina hepatis. The portal vein was not adequately evaluated, however. Gallbladder: Surgically absent Biliary ducts: Mild intrahepatic biliary dilatation is identified. The common bile duct was not definitely identified. Pancreas: Visualized portions of the pancreas are sonographically normal. Spleen: Spleen is normal in size and homogeneous in echotexture. Kidneys: Kidneys are normal in size and echotexture. Right kidney measures 11.6 cm long; left kidney measures 11.4 cm long. No hydronephrosis or shadowing nephrolithiasis. No solid masses. Aorta: Obscured by bowel gas Iliacs: Obscured by bowel gas IVC: Intrahepatic inferior vena cava is patent. Miscellaneous: There is a moderate amount of a parenchymal ascites. IMPRESSION: 1. Moderate amount of abdominal ascites. The origin is uncertain. 2. Increased vascularity within the region of the andreina hepatis is not adequately evaluated, but may be seen in the setting of portal venous hypertension or chronic portal vein thrombosis with corresponding cavernous transformation. Please consider contrast enhanced CT or MRI of the abdomen following a liver protocol, which may be performed on an outpatient basis, if indicated. Dictated by: Marvin Perez M.D. on 09/05/2019 at 15:46 Approved by: Marvin Perez M.D. on 09/05/2019 at 15:49
[2019-09-05 15:13] LABS: Lipase 19 U/L (23-300)
[2019-09-05 15:15] LABS: Ketones (Beta-Hydroxybutyrate) 0.09 mmol/L (<0.27)
[2019-09-05] MEDS: SODIUM CHLORIDE 0.9% 1,000 ML 1000 ML IV (15:34)
[2019-09-05] MEDS: TRAMADOL 50 MG TABLET PO (15:34)
[2019-09-05 15:51] LABS: Bacteria Urine None Seen
[2019-09-05 15:57] LABS: Appearance Urine UA CLEAR; Bilirubin Urine UA NEGATIVE (NEGATIVE); Color Urine UA YELLOW; Glucose Urine UA 1+ g/dL (Negative); Ketones Urine UA NEGATIVE (NEGATIVE); Leukocyte Esterase Urine UA NEGATIVE (NEGATIVE); Nitrite Urine UA NEGATIVE (Negative); Occult Blood Urine UA 1+ (Negative); Protein Urine UA 2+ (Negative); Urobilinogen Urine UA 0.2 E.U./dL (0.2)
[2019-09-05 15:59] LABS: pH Urine UA 5.5 (4.5-8.0)
[2019-09-05 16:01] LABS: Amorphous Sediment Urine 1+; Culture Indicated Urine Cult Not Indicated; Mucus Urine 1+ (Negative); RBC Urine 1-5/HPF (0-5/HPF); Squamous Epithelial Cell Urine 5-10 /HPF (0-5/HPF); WBC Urine 1-5/HPF (0-5/HPF)
[2019-09-05 16:46] VITALS: BP 187/97; PULSE 76; RESP 16; O2SAT 99
== END 2019-09-05 17:42 | disposition home or self-care (01) ==
PROVIDERS: Emergency Provider Emergency Medicine; PCP Family Medicine
DX: E11.65 Type 2 diabetes mellitus with hyperglycemia (principal); Z79.4 Long term (current) use of insulin; R18.8 Other ascites; D64.9 Anemia, unspecified; R51 Headache; I10 Essential (primary) hypertension; E11.10 Type 2 diabetes mellitus with ketoacidosis without coma
CPT/HCPCS: 36415; 76700; 80053; 81001; 81003; 82009; 82962; 83690; 85025; 93005; 93010; 96360; 96361; 99285

== ENCOUNTER → 2019-10-26 08:41 | Outpatient (CLI) | payer MEDICARE, MEDICAID, SELFPAY ==
--- NOTE | 2019-10-26 08:44 | DI.MRI.S_ITS ---
PROCEDURE: MR ABDOMEN WO/W CON INDICATIONS: Malignant ascites TECHNIQUE: Coronal HASTE, axial 2D FLASH in- and [id number]; axial breath-hold T2 FSE. Dynamic axial VIBE during the administration of contrast; post-contrast coronal VIBE or 2D FLASH with fat saturation from the hepatic dome to the iliac crests. Optional diffusion weighted imaging and ADC may be performed. COMPARISON: [facility], US, US ABDOMEN COMPLETE, 09/05/2019, 16:13. [facility], CT, CT ABDOMEN PELVIS W CON, 02/20/2019, 14:58. [facility], CT, CT ABDOMEN PELVIS WO CON, 08/01/2019, 8:04. FINDINGS: Image quality: Excellent. Lung bases: No basal pleural effusions. Heart size is normal. Solid organs: Liver is normal in size and enhancement. Punctate cysts in segment 4. Gallbladder is absent. Biliary system is non dilated. Pneumobilia is again seen. Pancreas is atrophic with susceptibility artifact related to chronic calcific pancreatitis as seen on prior CT. No focal enhancement or restricted diffusion appreciated within the pancreas or andreina hepatis. Spleen is normal in size and enhancement. No adrenal nodules. Both kidneys demonstrate normal size and enhancement, without hydronephrosis. Nodes and vessels: No retroperitoneal or mesenteric adenopathy by size criteria. 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 Multiple varices. Aorto iliac atherosclerotic plaque. No aortic aneurysm. Bowel and peritoneum: Unenhanced bowel loops are normal in caliber. No free fluid. Bones and soft tissues: No ventral hernias. Bone marrow is normal in overall signal. IMPRESSION: 1. Resolution of the previously seen ascites on ultrasound 08/26/2019. 2. No enhancing mass or suspicious restricted diffusion. 3. Cavernous transformation. 4. Findings of chronic calcific pancreatitis. 5. Expected pneumobilia from presumed prior sphincterotomy. Dictated by: Eagle Alonso M.D. on 10/26/2019 at 10:40 Approved by: Eagle Alonso M.D. on 10/26/2019 at 11:12
== END ==
PROVIDERS: PCP Family Medicine; Referring Provider Family Medicine; Visit Provider Family Medicine
DX: R18.0 Malignant ascites (principal); K86.1 Other chronic pancreatitis
CPT/HCPCS: 74183; A9579

== ENCOUNTER 2019-11-12 10:48 | Emergency (ER) | payer MEDICARE, MEDICAID, SELFPAY ==
[2019-11-12 11:14] VITALS: BP 184/86; PULSE 64; RESP 16; TEMP 36.2; O2SAT 100; BMI 18.5
[2019-11-12 13:56] LABS: Add Manual Diff / Slide Review NO; Basophils Absolute Auto 0 /uL (0-100); Basophils Percent Auto 0.6 % (0-2); Eosinophils Absolute Auto 0 /uL (0-450); Eosinophils Percent Auto 0.6 % (2-4); Hematocrit 34.4 % (36-46); Hemoglobin 11.4 g/dL (12.0-16.0); Lymphocytes Absolute Auto 1600 /uL (1100-4500); Lymphocytes Percent Auto 23.5 % (25-40); Mean Corpuscular Hemoglobin 28.7 PG (26-34); Mean Corpuscular Volume 86.8 fL (80-100); Monocytes Absolute Auto 400 /uL (0-900); Monocytes Percent Auto 6.4 % (3-14); Neutrophils Absolute Auto 4700 /uL (1500-7000); Neutrophils Percent Auto 68.9 % (50-75); Platelet Count 222 X10^3/uL (150-400); Red Blood Cell Count 3.96 X10^6/uL (4.0-5.2); Red Cell Distribution Width 15.4 % (11.6-14.8); White Blood Cell Count 6.7 X10^3/uL (4.5-11.0)
[2019-11-12 14:01] LABS: PTT Partial Thromboplastin Tim 28 SECONDS (26.4-36.2)
[2019-11-12 14:03] VITALS: BP 180/103; PULSE 62; RESP 16; O2SAT 98
[2019-11-12 14:03] LABS: Alanine Aminotransferase 21 IU/L (<35); Albumin Globulin Ratio 0.9 (1.0-2.8); Alkaline Phosphatase 82 U/L (38-126); Aspartate Aminotransferase 35 IU/L (14-36); BUN Creatinine Ratio 12.3 (6-22); Bilirubin Total 0.8 mg/dL (0.2-1.3); Blood Urea Nitrogen 13 mg/dL (7-17); Calcium 8.7 mg/dL (8.4-10.2); Carbon Dioxide 23 mmol/L (22-32); Chloride 104 mmol/L (98-107); Estimated Glomerular Filt Rate 52.4 mL/min (>60); Globulin 3.2 g/dL (1.7-4.1); Glucose 156 mg/dL (80-110); HEMOLYSIS < 15 (0-50); Lipase < 10 U/L (23-300); Potassium 3.8 mmol/L (3.4-5.1); Sodium 133 mmol/L (137-145); Total Protein 6.2 g/dL (6.3-8.2)
[2019-11-12 14:30] VITALS: BP 225/105; PULSE 72; RESP 18; O2SAT 98
[2019-11-12 14:36] VITALS: BP 197/97; PULSE 70; RESP 17; O2SAT 98
[2019-11-12 14:41] LABS: Ethanol (ETOH) < 10 mg/dL
--- NOTE | 2019-11-12 15:07 | DI.RAD.S_ITS ---
PROCEDURE: XR ACUTE ABDOMEN SERIES INDICATIONS: vomiting TECHNIQUE: One view chest and two views of the abdomen were acquired. COMPARISON: [facility], , ABDOMEN ACUTE SERIES, 09/09/2014, 19:52. FINDINGS: Surgical changes and devices: Cholecystectomy clips. Chest: Lungs are clear. Heart size is normal. No pleural effusions. No pneumoperitoneum. Abdomen: Bowel gas pattern is normal. No suspicious calcifications. Visualized solid organ contours appear normal. Bones: No suspicious bony lesions. IMPRESSION: Nonobstructive gas pattern. No free air. Dictated by: Autumn Robledo M.D. on 11/12/2019 at 15:49 Approved by: Autumn Robledo M.D. on 11/12/2019 at 15:49
[2019-11-12] MEDS: ONDANSETRON 4 MG ODT SL (15:17)
[2019-11-12 16:04] VITALS: BP 191/96; PULSE 63; RESP 16; O2SAT 98
[2019-11-12 17:10] VITALS: BP 196/92; PULSE 64; RESP 18; O2SAT 98
--- NOTE | 2019-11-12 17:35 | ED.NAVMDI ---
HPI - Nausea/Vomiting/Diarrhea <Shwetha Garcia, [employer] - Last Filed: 11/12/19 17:39> General Chief complaint: Nausea/Vomiting/Diarrhea Stated complaint: HAD FLU FOR COUPLE OF DAYS Time Seen by Provider: 11/12/19 14:27 Source: patient Mode of arrival: Wheelchair Limitations: no limitations History of Present Illness HPI Narrative: The patient is a 64-year-old female current smoker with a complicated medical history including hypertension, acute dehydration, CVA who presents with a chief complaint of nausea for the past few days. She states that 2 days ago she had some nausea and vomiting and diarrhea. She had a normal bowel movement last night. She vomited a few times yesterday and once today. She has been able to keep down 3 bottles of water today. She denies any fevers. She denies any dysuria urgency or frequency. She denies any chest pain or shortness of breath. She denies any abdominal pain, though notes that she had some cramping when she had diarrhea few days ago. Related Data Home Medications Medication Instructions Recorded Confirmed Marijuana 1 ea INHALATION DAILY 10/08/17 08/02/19 atorvastatin 40 mg PO QPM 10/08/17 08/02/19 cholecalciferol (vitamin D3) 3,000 unit PO DAILY 10/08/17 08/02/19 [Vitamin D3] insulin aspart U-100 [Novolog 1 dose SUBCUT QIDACHS 10/08/17 08/02/19 Flexpen U-100 Insulin] pen needle, diabetic 10/30/17 08/02/19 mirtazapine 15 mg PO BEDTIME 02/19/18 08/02/19 Basaglar KwikPen U-100 Insulin 8 unit SUBCUT BID 02/20/19 08/02/19 Myrbetriq 25 mg PO DAILY 08/02/19 08/02/19 amlodipine 2.5 mg PO DAILY 08/02/19 08/02/19 cyanocobalamin (vitamin B-12) 1,000 mcg PO DAILY 08/02/19 08/02/19 hydralazine 20 mg PO BID 08/02/19 08/02/19 lisinopril 30 mg PO DAILY 08/02/19 08/02/19 oxybutynin chloride 5 mg PO BEDTIME 08/02/19 08/02/19 sucralfate 1 g PO QID 08/02/19 08/02/19 tizanidine 2 mg PO Q8H PRN 08/02/19 08/02/19 Previous Rx's Medication Instructions Recorded aspirin [Aspirin Low Dose] 81 mg PO DAILY #30 tab 08/04/19 ondansetron 4 mg PO Q6H PRN #14 tab 11/12/19 Allergies Allergy/AdvReac Type Severity Reaction Status Date / Time Iodine and Iodide Containing Allergy Unknown Verified 08/26/19 18:03 Produc [IODINE AND IODIDE CONTAINING PRODUC] latex [LATEX] Allergy Unknown Verified 08/26/19 18:03 Review of Systems <BEATA Mcdonnell - Last Filed: 11/12/19 17:39> Review of Systems Narrative: GENERAL: Denies chills, fatigue, malaise, fever, sweats. HEENT: Denies sinus pain, ear pain, sore throat, difficulty swallowing, dizziness. RESPIRATORY: Denies dyspnea, cough, wheezing, hemoptysis, sputum. CARDIOVASCULAR: Denies chest pain, palpitations, orthopnea, edema, GASTROINTESTINAL: See HPI : Denies dysuria, frequency, incontinence, hematuria, urinary retention. MUSCULOSKELETAL: denies weakness, joint pain, or bony pain SKIN: Denies rash, skin lesions, or other NEUROLOGIC: Denies weakness, headache, numbness, change in speech, confusion, seizures, incoordination. PSYCHIATRIC: No concerning psychosocial issues. 12 point review of systems is negative except for those stated above Patient History <BEATA Mcdonnell - Last Filed: 11/12/19 17:39> Medical History CVA (cerebral vascular accident) (Acute) Diabetes (Acute) Gallbladder disease (Chronic) Hypertension (Acute) Surgical History No pertinent past surgical history (Acute) Tubal ligation status (Acute) Family History Mother Heart disease Social History household members: significant other Smoking Status: Current every day smoker alcohol intake: former Smoking Status: Current every day smoker tobacco type: cigarettes alcohol intake frequency: holidays/special occasions only Alcohol type: hard liquor Substance Use Type: marijuana Exam <BEATA Mcdonnell - Last Filed: 11/12/19 17:39> Narrative Exam Narrative: GENERAL: Elderly chronically ill-appearing female in no acute distress HEAD: Atraumatic. Normocephalic. No temporal or scalp tenderness. EYES: Pupils equal round and reactive. Extraocular motions intact. No scleral icterus. No injection or drainage. ENT: Nose without bleeding, purulent drainage or septal hematoma. Throat without erythema, tonsillar hypertrophy or exudate. Uvula midline. Airway patent. NECK: Trachea midline. No JVD or lymphadenopathy. Supple, nontender, no meningeal signs. CARDIOVASCULAR: Regular rate and rhythm RESPIRATORY: Coarse to auscultation. Breath sounds equal bilaterally. No wheezes, rales, or rhonchi. No cough. No increased respiratory effort. No accessory muscle use. GASTROINTESTINAL: Abdomen soft, non-tender, nondistended. No hepato-splenomegaly, or palpable masses. No guarding. Soft nontender to palpation. Active bowel sounds all 4 quadrants. EXTREMITIES: No clubbing, cyanosis, or edema. No joint tenderness, effusion, or edema noted. BACK: Nontender without deformity or crepitance. No flank tenderness. NEURO: AOx3. SKIN: No rash or erythema on visible skin Initial Vital Signs Initial Vital Signs: Vital Signs Temperature 97.2 F L 11/12/19 11:14 Pulse Rate 64 11/12/19 11:14 Respiratory Rate 16 11/12/19 11:14 Blood Pressure 184/86 H 11/12/19 11:14 Pulse Oximetry 100 11/12/19 11:14 <Rafaela Guerrero DO - Last Filed: 11/15/19 08:17> Initial Vital Signs Initial Vital Signs: Vital Signs Temperature 97.2 F L 11/12/19 11:14 Pulse Rate 64 11/12/19 11:14 Respiratory Rate 16 11/12/19 11:14 Blood Pressure 184/86 H 11/12/19 11:14 Pulse Oximetry 100 11/12/19 11:14 Scores <BEATA Mcdonnell - Last Filed: 11/12/19 17:39> GCS [place] coma scale eye opening: Spontaneous [place] coma scale verbal response: Orientated Maira coma scale motor response: Obey commands [place] coma scale total score: 15 Course <BEATA Mcdonnell - Last Filed: 11/12/19 17:39> Orders Ordered: Discontinued Medications Ondansetron HCl (Zofran Odt) 4 mg SL NOW ONE Stop: 11/12/19 15:08 Last Admin: 11/12/19 15:17 Dose: 4 mg Documented by: KAMALJIT Vital Signs Vital signs: Vital Signs - 8 hr 11/12/19 11:14 11/12/19 14:03 11/12/19 14:30 Temperature 97.2 F L Pulse Rate 64 62 72 Respiratory Rate 16 16 18 Blood Pressure 184/86 H Blood Pressure [Right Arm] 180/103 H 225/105 H Pulse Oximetry 100 98 98 11/12/19 14:36 11/12/19 16:04 11/12/19 17:10 Temperature Pulse Rate 70 63 64 Respiratory Rate 17 16 18 Blood Pressure 196/92 H Blood Pressure [Right Arm] 197/97 H 191/96 H Pulse Oximetry 98 98 98 <Rafaela Guerrero DO - Last Filed: 11/15/19 08:17> Orders Ordered: Discontinued Medications Ondansetron HCl (Zofran Odt) 4 mg SL NOW ONE Stop: 11/12/19 15:08 Last Admin: 11/12/19 15:17 Dose: 4 mg Documented by: KAMALJIT Vital Signs Vital signs: Vital Signs - 8 hr 11/12/19 11:14 11/12/19 14:03 11/12/19 14:30 Temperature 97.2 F L Pulse Rate 64 62 72 Respiratory Rate 16 16 18 Blood Pressure 184/86 H Blood Pressure [Right Arm] 180/103 H 225/105 H Pulse Oximetry 100 98 98 11/12/19 14:36 11/12/19 16:04 11/12/19 17:10 Temperature Pulse Rate 70 63 64 Respiratory Rate 17 16 18 Blood Pressure 196/92 H Blood Pressure [Right Arm] 197/97 H 191/96 H Pulse Oximetry 98 98 98 MDM - Nausea/Vomiting/Diarrhea <BEATA Mcdonnell - Last Filed: 11/12/19 17:39> Lab Data Result diagrams: 11/12/19 13:40 06/25/20 13:40 Labs: Lab Results 11/12/19 11/12/19 11/12/19 Range/Units 13:40 13:40 13:40 WBC 6.7 (4.5-11.0) X10^3/uL RBC 3.96 L (4.0-5.2) X10^6/uL Hgb 11.4 L (12.0-16.0) g/dL Hct 34.4 L (36-46) % MCV 86.8 (80-100) fL MCH 28.7 (26-34) PG MCHC 33.0 (30-36) % RDW 15.4 H (11.6-14.8) % Plt Count 222 (150-400) X10^3/uL Neut % (Auto) 68.9 (50-75) % Lymph % (Auto) 23.5 L (25-40) % [place] % (Auto) 6.4 (3-14) % Eos % (Auto) 0.6 L (2-4) % Baso % (Auto) 0.6 (0-2) % Neut # (Auto) 4700 (9894-7439) /uL Lymph # (Auto) 1600 (1333-7096) /uL [place] # (Auto) 400 (0-900) /uL Eos # (Auto) 0 (0-450) /uL Baso # (Auto) 0 (0-100) /uL PT 11.0 (10.1-12.7) SECONDS INR 1.0 (0.9-1.3) APTT 28 D (26.4-36.2) SECONDS Sodium 133 L (137-145) mmol/L Potassium 3.8 (3.4-5.1) mmol/L Chloride 104 (98-107) mmol/L Carbon Dioxide 23 (22-32) mmol/L BUN 13 (7-17) mg/dL Creatinine 1.06 H (0.52-1.04) mg/dL Estimated GFR 52.4 L (>60) mL/min BUN/Creatinine Ratio 12.3 (6-22) Glucose 156 H (80-110) mg/dL Calcium 8.7 (8.4-10.2) mg/dL Total Bilirubin 0.8 (0.2-1.3) mg/dL AST 35 (14-36) IU/L ALT 21 (<35) IU/L Alkaline Phosphatase 82 (38-126) U/L Total Protein 6.2 L (6.3-8.2) g/dL Albumin 3.0 L (3.5-5.0) g/dL Globulin 3.2 (1.7-4.1) g/dL Albumin/Globulin Ratio 0.9 L (1.0-2.8) Lipase < 10 L (23-300) U/L Ethyl Alcohol ( - 10) mg/dL 11/11/ Range/Units 14:32 WBC (4.5-11.0) X10^3/uL RBC (4.0-5.2) X10^6/uL Hgb (12.0-16.0) g/dL Hct (36-46) % MCV (80-100) fL MCH (26-34) PG MCHC (30-36) % RDW (11.6-14.8) % Plt Count (150-400) X10^3/uL Neut % (Auto) (50-75) % Lymph % (Auto) (25-40) % [place] % (Auto) (3-14) % Eos % (Auto) (2-4) % Baso % (Auto) (0-2) % Neut # (Auto) (9588-3689) /uL Lymph # (Auto) (2366-4462) /uL [place] # (Auto) (0-900) /uL Eos # (Auto) (0-450) /uL Baso # (Auto) (0-100) /uL PT (10.1-12.7) SECONDS INR (0.9-1.3) APTT (26.4-36.2) SECONDS Sodium (137-145) mmol/L Potassium (3.4-5.1) mmol/L Chloride (98-107) mmol/L Carbon Dioxide (22-32) mmol/L BUN (7-17) mg/dL Creatinine (0.52-1.04) mg/dL Estimated GFR (>60) mL/min BUN/Creatinine Ratio (6-22) Glucose (80-110) mg/dL Calcium (8.4-10.2) mg/dL Total Bilirubin (0.2-1.3) mg/dL AST (14-36) IU/L ALT (<35) IU/L Alkaline Phosphatase (38-126) U/L Total Protein (6.3-8.2) g/dL Albumin (3.5-5.0) g/dL Globulin (1.7-4.1) g/dL Albumin/Globulin Ratio (1.0-2.8) Lipase (23-300) U/L Ethyl Alcohol < 10 ( - 10) mg/dL Imaging Data Abdominal x-ray: Radiologist's Impression: [address] [place] [id number] XRay Report Signed Patient: Kristine Moon RMR#: [id number] : 6Acct:[id number] Age/Sex: 64 / FDate of Service: 11/12/19 Loc: ED Accession Number: [id number] Procedure: XR acute abdomen series Ordering Provider: Shwetha Garcia PROCEDURE: XR ACUTE ABDOMEN SERIES INDICATIONS: vomiting TECHNIQUE: One view chest and two views of the abdomen were acquired. COMPARISON: [facility], , ABDOMEN ACUTE SERIES, 09/09/2014, 19:52. FINDINGS: Surgical changes and devices: Cholecystectomy clips. Chest: Lungs are clear. Heart size is normal. No pleural effusions. No pneumoperitoneum. Abdomen: Bowel gas pattern is normal. No suspicious calcifications. Visualized solid organ contours appear normal. Bones: No suspicious bony lesions. IMPRESSION: Nonobstructive gas pattern. No free air. Dictated by: Autumn Robledo M.D. on 11/12/2019 at 15:49 Approved by: Autumn Robledo M.D. on 11/12/2019 at 15:49 [facility] Narrative Medical decision making narrative: The patient is a 64-year-old female who presents with a chief complaint of abdominal pain, nausea vomiting and diarrhea. Her abdominal pain has resolved, she states it was only a few days ago when she was having diarrhea. She has had 1 episode of vomiting today, but is keeping down fluids well and feels much improved after single dose of Zofran. Her labs are overall well, with no leukocytosis. Her abdominal exam is not acute, she is soft and nontender throughout. X-ray of abdomen has no findings indicating obstruction. I discussed at length the importance of following up with primary care provider, especially given that she is slightly hypertensive during her stay in the emergency department. However she is asymptomatic with no headache chest pain shortness of breath etcetera. I encouraged her to follow up and have a blood pressure recheck. I also discussed come back to the emergency department for any acute concerns such as chest pain, shortness of breath, abdominal pain with fever, inability keep down fluids etcetera. Patient has no questions or concerns upon discharge and states understanding of return precautions as well as follow-up care. <Rafaela Guerrero, DO - Last Filed: 11/15/19 08:17> Lab Data Labs: Lab Results 11/12/19 11/12/19 11/12/19 Range/Units 13:40 13:40 13:40 WBC 6.7 (4.5-11.0) X10^3/uL RBC 3.96 L (4.0-5.2) X10^6/uL Hgb 11.4 L (12.0-16.0) g/dL Hct 34.4 L (36-46) % MCV 86.8 (80-100) fL MCH 28.7 (26-34) PG MCHC 33.0 (30-36) % RDW 15.4 H (11.6-14.8) % Plt Count 222 (150-400) X10^3/uL Neut % (Auto) 68.9 (50-75) % Lymph % (Auto) 23.5 L (25-40) % [place] % (Auto) 6.4 (3-14) % Eos % (Auto) 0.6 L (2-4) % Baso % (Auto) 0.6 (0-2) % Neut # (Auto) 4700 (0324-6124) /uL Lymph # (Auto) 1600 (4131-6702) /uL [place] # (Auto) 400 (0-900) /uL Eos # (Auto) 0 (0-450) /uL Baso # (Auto) 0 (0-100) /uL PT 11.0 (10.1-12.7) SECONDS INR 1.0 (0.9-1.3) APTT 28 D (26.4-36.2) SECONDS Sodium 133 L (137-145) mmol/L Potassium 3.8 (3.4-5.1) mmol/L Chloride 104 (98-107) mmol/L Carbon Dioxide 23 (22-32) mmol/L BUN 13 (7-17) mg/dL Creatinine 1.06 H (0.52-1.04) mg/dL Estimated GFR 52.4 L (>60) mL/min BUN/Creatinine Ratio 12.3 (6-22) Glucose 156 H (80-110) mg/dL Calcium 8.7 (8.4-10.2) mg/dL Total Bilirubin 0.8 (0.2-1.3) mg/dL AST 35 (14-36) IU/L ALT 21 (<35) IU/L Alkaline Phosphatase 82 (38-126) U/L Total Protein 6.2 L (6.3-8.2) g/dL Albumin 3.0 L (3.5-5.0) g/dL Globulin 3.2 (1.7-4.1) g/dL Albumin/Globulin Ratio 0.9 L (1.0-2.8) Lipase < 10 L (23-300) U/L Ethyl Alcohol ( - 10) mg/dL // Range/Units 14:32 WBC (4.5-11.0) X10^3/uL RBC (4.0-5.2) X10^6/uL Hgb (12.0-16.0) g/dL Hct (36-46) % MCV (80-100) fL MCH (26-34) PG MCHC (30-36) % RDW (11.6-14.8) % Plt Count (150-400) X10^3/uL Neut % (Auto) (50-75) % Lymph % (Auto) (25-40) % [place] % (Auto) (3-14) % Eos % (Auto) (2-4) % Baso % (Auto) (0-2) % Neut # (Auto) (8139-6163) /uL Lymph # (Auto) (6099-8767) /uL [place] # (Auto) (0-900) /uL Eos # (Auto) (0-450) /uL Baso # (Auto) (0-100) /uL PT (10.1-12.7) SECONDS INR (0.9-1.3) APTT (26.4-36.2) SECONDS Sodium (137-145) mmol/L Potassium (3.4-5.1) mmol/L Chloride (98-107) mmol/L Carbon Dioxide (22-32) mmol/L BUN (7-17) mg/dL Creatinine (0.52-1.04) mg/dL Estimated GFR (>60) mL/min BUN/Creatinine Ratio (6-22) Glucose (80-110) mg/dL Calcium (8.4-10.2) mg/dL Total Bilirubin (0.2-1.3) mg/dL AST (14-36) IU/L ALT (<35) IU/L Alkaline Phosphatase (38-126) U/L Total Protein (6.3-8.2) g/dL Albumin (3.5-5.0) g/dL Globulin (1.7-4.1) g/dL Albumin/Globulin Ratio (1.0-2.8) Lipase (23-300) U/L Ethyl Alcohol < 10 ( - 10) mg/dL Discharge Plan Departure Patient Disposition: Home Clinical Impression: Nausea Discharge Date/Time: 11/12/19 17:10 Instructions: DI for Nausea -- Adult, DI for Vomiting -- Adult, DI for Vomiting -- Activity Restrictions/Additional Instructions: Thank you for trusting us with your care today. As I discussed, your lab work and imaging came back well. You feel much improved throughout your stay here. I sent a prescription of nausea medicine to [facility]. Please come back to the emergency department for any acute concerns. Please follow-up with primary care provider. Please especially do this as your blood pressure has been elevated and will need to be rechecked. Prescriptions: New ondansetron 4 mg tablet,disintegrating 4 mg PO Q6H PRN (Reason: nausea and vomiting) Qty: 14 RF: 0 No Action Marijuana 1 ea inhalation DAILY RF: 0 atorvastatin 40 mg tablet 40 mg PO QPM RF: 0 cholecalciferol (vitamin D3) [Vitamin D3] 1,000 unit Capsule 3,000 unit PO DAILY RF: 0 insulin aspart U-100 [Novolog Flexpen U-100 Insulin] 100 UNIT/1 ML insulin pen 1 dose subcut QIDACHS RF: 0 Basaglar KwikPen U-100 Insulin 100 unit/mL (3 mL) insulin pen 8 unit SUBCUT BID RF: 0 hydralazine 10 mg Tablet 20 mg PO BID RF: 0 tizanidine 2 mg Tablet 2 mg PO Q8H PRN (Reason: Muscle Spasm) RF: 0 sucralfate 1 gram Tablet 1 g PO QID RF: 0 cyanocobalamin (vitamin B-12) 1,000 mcg Tablet 1,000 mcg PO DAILY RF: 0 amlodipine 2.5 mg Tablet 2.5 mg PO DAILY RF: 0 lisinopril 30 mg Tablet 30 mg PO DAILY RF: 0 oxybutynin chloride 5 mg Tablet 5 mg PO BEDTIME RF: 0 Myrbetriq 25 mg Tablet Extended Release 24 Hr 25 mg PO DAILY RF: 0 aspirin [Aspirin Low Dose] 81 mg tablet,delayed release (DR/EC) 81 mg PO DAILY Qty: 30 RF: 0 (DME) pen needle, diabetic 32 gauge x 5/32 needle RF: 0 mirtazapine 7.5 MG tablet 15 mg PO BEDTIME RF: 0 Referrals: Jyoti Streeter MD [Primary Care Provider] - <Rafaela Guerrero DO - Last Filed: 11/15/19 08:17> Cosign ED Attending Amaature Attestation: I was immediately available in the department for consultation. Documentation has been reviewed. I agree with assessment and plan.
== END 2019-11-12 17:10 | disposition home or self-care (01) ==
PROVIDERS: Emergency Medicine; Emergency Provider Nurse Practitioner Family; PCP Family Medicine
DX: R11.2 Nausea with vomiting, unspecified (principal); R10.9 Unspecified abdominal pain; I10 Essential (primary) hypertension
CPT/HCPCS: 36415; 74022; 80053; 80320; 83690; 85025; 85610; 85730; 93005; 99284

== ENCOUNTER 2019-12-26 07:57 | Inpatient (IN) | payer MEDICARE, MEDICAID, SELFPAY ==
[2019-12-26] VITALS (26 sets, daily range): BP systolic 132–212; BP diastolic 62–98; PULSE 52–94; RESP 13–20; TEMP 36.1–37.1; O2SAT 95–100; BMI 20.2; BMI 19.1
--- NOTE | 2019-12-26 | DI.RAD.S_ITS ---
PROCEDURE: XR PELVIS 1-2V INDICATIONS: INTER OP UNIPOLAR LEFT HIP PLACEMENT TECHNIQUE: 1 view of the lower pelvis acquired. COMPARISON: None. FINDINGS: Bones: Patient is status post left hip arthroplasty, with hardware components in expected positions. The hip joint appears congruent. The visualized bony structures appear intact. Soft tissues: Overlying postoperative changes are noted. No suspicious soft tissue densities. Vascular calcifications. IMPRESSION: Expected immediate postoperative appearance of left hip arthroplasty. Dictated by: Sun Jiang M.D. on 12/26/2019 at 14:57 Approved by: Sun Jiang M.D. on 12/26/2019 at 14:58
--- NOTE | 2019-12-26 08:20 | ED_ITS ---
HPI - Extremity Injury (Lower) General Chief Complaint: Extremity Injury, Lower Stated Complaint: GLF Time Seen by Provider: 12/26/19 08:17 Source: patient and EMS Mode of arrival: Ambulatory Limitations: no limitations History of Present Illness HPI Narrative: The patient fell at her bedside about midnight last night, she apparently just slipped. She went to the floor and has left hip pain. She did not feel a snap or pop the cannot use the left leg. There was no head, neck, or chest injury. She has no discomfort in her head, neck, back or torso. She denies chest pain or dyspnea. There are no other injuries. She denies recent URI symptoms, sore throat, cough for fever. She has no dyspnea. She has no obvious exposure to COVID-19. She is on multiple medications, but has taken only a dose of insulin this morning. Her other morning meds are pending. She is currently treated hyperlipidemia, hypertension and diabetes. She has a prior history of stroke. She has no cardiac history. Related Data Home Medications Medication Instructions Recorded Confirmed atorvastatin 40 mg PO QPM 10/08/17 12/26/19 cholecalciferol (vitamin D3) 3,000 unit PO DAILY 10/08/17 12/26/19 [Vitamin D3] insulin aspart U-100 [Novolog 1 dose SUBCUT QIDACHS 10/08/17 12/26/19 Flexpen U-100 Insulin] mirtazapine 15 mg PO BEDTIME 02/19/18 12/26/19 Basaglar KwikPen U-100 Insulin 11 unit SUBCUT BID 02/20/19 12/26/19 cyanocobalamin (vitamin B-12) 1,000 mcg PO DAILY 08/02/19 12/26/19 hydralazine 20 mg PO BID 08/02/19 12/26/19 lisinopril 30 mg PO DAILY 08/02/19 12/26/19 oxybutynin chloride 5 mg PO BEDTIME 08/02/19 12/26/19 sucralfate 1 g PO QID 08/02/19 12/26/19 tizanidine 2 mg PO Q8H PRN 08/02/19 12/26/19 ondansetron 8 mg PO Q6H PRN 12/26/19 12/26/19 pantoprazole 40 mg PO POSTTR 12/26/19 12/26/19 propranolol 20 mg PO DAILY 12/26/19 12/26/19 spironolactone 25 mg PO DAILY 12/26/19 12/26/19 tramadol 50 mg PO BID PRN 12/26/19 12/26/19 Previous Rx's Medication Instructions Recorded aspirin [Aspirin Low Dose] 81 mg PO DAILY #30 tab 08/04/19 Allergies Allergy/AdvReac Type Severity Reaction Status Date / Time Iodine and Iodide Containing Allergy Unknown Verified 12/26/19 12:01 Produc [IODINE AND IODIDE CONTAINING PRODUC] latex [LATEX] Allergy Unknown Verified 12/26/19 12:01 Review of Systems Constitutional Constitutional: Denies chills, Denies fever(s), Denies lethargy and Denies weakness Comments: No recent illness. Eyes Eyes: Denies change in vision ENT Ears, Nose, Mouth, and Throat: Denies dizziness Comments: No ENT complaints. Cardiovascular Cardiovascular: Denies chest pain, Denies syncope and Denies dyspnea Respiratory Respiratory: Denies cough and Denies dyspnea Gastrointestinal Gastrointestinal: Denies abdominal pain, Denies nausea and Denies vomiting Genitourinary Comments: No urinary complaints. Musculoskeletal Comments: No neck or back pain. No extremity injuries. She has left hip pain with decreased motion left leg. There are no injuries to to the right leg. Integumentary/Breasts Skin/Breast: Denies pruritus, Denies erythema, Denies rash and Denies wounds Neurologic Neurologic: Denies confusion, Denies dizziness, Denies syncope and Denies weakness Psychiatric Psychiatric: Denies anxiety and Denies confusion Patient History Medical History (Updated 12/26/19 @ 15:14 by Socrates Faustin MD) CVA (cerebral vascular accident) (Acute) Diabetes (Acute) Esophagitis (Acute) Gallbladder disease (Chronic) GERD (gastroesophageal reflux disease) (Acute) Hyperlipidemia (Acute) Hypertension (Acute) Overactive bladder (Acute) Upper GI bleed (Acute) Surgical History History of cholecystectomy (Acute) Tubal ligation status (Acute) Family History Mother Heart disease Father No problems noted. Social History household members: significant other Smoking Status: Current every day smoker alcohol intake: former Smoking Status: Current every day smoker tobacco type: cigarettes alcohol intake frequency: holidays/special occasions only Alcohol type: hard liquor Substance Use Type: marijuana Exam Initial Vital Signs Initial Vital Signs: Vital Signs Temperature 98.1 F 12/26/19 08:13 Pulse Rate 94 H 12/26/19 08:13 Respiratory Rate 16 12/26/19 08:13 Blood Pressure 212/98 H 12/26/19 08:13 Pulse Oximetry 99 12/26/19 08:13 Const General: cooperative and well developed Nutritional Appearance: well nourished [facility] Head: normal to inspection, normocephalic and atraumatic Eyes Pupils: PERRL EOM: EOM intact bilaterally Neck Neck: No tender Chest Chest: normal palpation of entire chest wall and No crepitus Resp Effort & Inspection: normal respiratory effort and able to speak in complete sentences Auscultation: clear to auscultation bilaterally Cardio Rate: regular rate Rhythm: regular rhythm Heart Sounds: S1 normal, S2 normal, no click, no gallops, no murmurs and no rubs Pulses: normal peripheral pulses GI Inspection: non-distended Palpation: soft, no hepatosplenomegaly, No guarding and No tender Auscultation: normal bowel sounds Back/Spine/Pelvis Back: No back tenderness and other (No obvious injury) Skin General: no rashes or lesions noted Neuro General: patient alert, patient oriented x3, gait normal and no focal motor deficits Speech: speech normal Extrem Other: Upper extremities are atraumatic. The left hip is acutely tender, with significant decreased motion due to hip pain. There is shortening to the left leg, with no significant malrotation. The right leg is atraumatic. Both lower extremities are neurovascularly intact. Psych Appearance: well kempt Mental Status: mental status grossly normal Attitude: cooperative Judgment: judgment good Course Course Course Narrative: The patient was advised she had a left hip fracture. Of note, she has not had her morning medications, initial systolic pressure is greater than 200, her glucose levels greater than 400. Orthopedic consultation was obtained from Dr. Lopez, he has seen the patient ER. In our initial discussion he indicated he would be a day or 2 before he did surgery, allowing comprehensive medical evaluation. I initially treated her hypertension with her listed oral meds, hydralazine, lisinopril, and Norvasc. She is asymptomatic of chest pain, dyspnea, headache, or visual changes. He had an initial poor response to the medications, her blood pressure was addressed again when she remain in the 190s despite the oral meds. Labetalol 10 mg IV was given. Her systolic blood pressure improved to 146/81 prior to admission. Her told me insulin was given this morning, initial POC testing was greater than 400. Lab testing confirmed glucose level of 495. Insulin 10 mg IV was given. Her glucose level improved to [address] Lopez, orthopedic surgery, was consulted. I discussed the patient with the hospitalist, Dr. Gauthier. Dr. Gauthier and I had a couple discussions about her blood pressure and glucose. Dr. Lopez had indicated to Dr. Gauthier that he may do surgery later today, different than the 1st indication I received. Her numbers have improved as indicated prior to admission. Her pain is reasonably controlled prior to admission. Dr. Gauthier accepted the patient as the admitting physician. Orders Ordered: ED Orders 12/26/19 08:25 XR hip w pel if done LT 2V Stat 12/26/19 08:26 XR chest 1V Stat 12/26/19 10:00 Complete Blood Count AUTO DIFF Stat 12/26/19 11:18 Comprehensive Metabolic Panel Stat Partial Thromboplastin Time Stat Prothrombin Time INR Stat Acetaminophen (Tylenol) 650 mg PO Q6HR MIRIAM Al Hydrox/Mg Hydrox/Simethicone (Maalox Plus) 30 ml PO Q6HR PRN PRN Reason: Dyspepsia Bisacodyl (Dulcolax) 10 mg [place] DAILY PRN PRN Reason: Constipation Calcium Carbonate (Tums) 1,000 mg PO Q4HR PRN PRN Reason: Dyspepsia Docusate Sodium (Colace) 100 mg PO BID MIRIAM Hydromorphone HCl (Dilaudid) 0.5 mg IV Q6HR PRN PRN Reason: Pain, Moderate (4-6) Sodium Chloride (Normal Saline 0.9%) 1,000 mls @ 100 mls/hr IV CONT MIRIAM Last Infusion: 12/26/19 12:38 Dose: 100 mls/hr Documented by: Infusion: 12/26/19 12:03 Dose: 0 mls/hr Documented by: Infusion: 12/26/19 11:50 Dose: 100 mls/hr Documented by: Admin: 12/26/19 09:00 Dose: 150 mls/hr Documented by: TOMER INSULIN DRIP PREMIX (Myxredlin Drip Premix) 100 unit in 100 mls @ 1 mls/hr IV TITRATE MIRIAM; Protocol Last Admin: 12/26/19 13:25 Dose: Not Given Documented by: PETTY Ketorolac Tromethamine (Toradol) 30 mg IV Q6HR PRN PRN Reason: Pain, Severe (7-10) Stop: 12/31/19 11:37 Labetalol HCl (Trandate) 10 mg IV Q4HR PRN PRN Reason: Hypertension Magnesium Hydroxide (Milk Of Magnesia) 30 ml PO DAILY PRN PRN Reason: Constipation Naloxone HCl (Narcan) 0.2 mg IV Q2MIN PRN PRN Reason: Opiate Reversal Ondansetron HCl (Zofran) 4 mg IV Q6HR PRN PRN Reason: Nausea And Vomiting Discontinued Medications Amlodipine Besylate (Norvasc) 2.5 mg PO NOW ONE Stop: 12/26/19 08:29 Last Admin: 12/26/19 09:03 Dose: 2.5 mg Documented by: TOMER Hydralazine HCl (Apresoline) 20 mg PO NOW ONE Stop: 12/26/19 08:29 Last Admin: 12/26/19 09:06 Dose: 20 mg Documented by: ANURAGARTIN Hydromorphone HCl (Dilaudid) 0.5 mg IV NOW ONE Stop: 12/26/19 08:27 Last Admin: 12/26/19 09:01 Dose: 0.5 mg Documented by: ANURAGARTIN Hydromorphone HCl (Dilaudid) 0.5 mg IV NOW ONE Stop: 12/26/19 11:30 Last Admin: 12/26/19 11:37 Dose: 0.5 mg Documented by: YARIEL Cefazolin Sodium/Dextrose (Ancef) 1 gm in 50 mls @ 200 mls/hr IV NOW ONE Stop: 12/26/19 14:17 Insulin Human Regular (Humulin R) 10 unit IV NOW ONE Stop: 12/26/19 10:32 Last Admin: 12/26/19 11:14 Dose: 10 unit Documented by: YARIEL Cosigned by: SANDRINE Insulin Human Regular (Humulin R) 5 unit IV NOW ONE Stop: 12/26/19 13:46 Last Admin: 12/26/19 13:37 Dose: 5 unit Documented by: PETTY Cosigned by: VERONA Labetalol HCl (Trandate) 10 mg IV NOW ONE Stop: 12/26/19 11:34 Last Admin: 12/26/19 11:37 Dose: 10 mg Documented by: YARIEL Lisinopril (Zestril) 30 mg PO NOW ONE Stop: 12/26/19 08:29 Last Admin: 12/26/19 09:04 Dose: 30 mg Documented by: TOMER Vital Signs Vital signs: Vital Signs - 8 hr 12/26/19 08:13 12/26/19 09:04 12/26/19 10:29 Temperature 98.1 F Pulse Rate 94 H 88 85 Respiratory Rate 16 20 Blood Pressure 212/98 H 202/94 H 203/95 H Pulse Oximetry 99 97 MDM - Extremity Injury (Lower) Lab Data Result diagrams: 12/26/19 10:00 12/26/19 11:18 Labs: Lab Results 12/26/19 12/26/19 Range/Units 10:00 10:25 WBC 13.9 H (4.5-11.0) X10^3/uL RBC 4.13 (4.0-5.2) X10^6/uL Hgb 11.6 L (12.0-16.0) g/dL Hct 36.0 (36-46) % MCV 87.2 (80-100) fL MCH 28.1 (26-34) PG MCHC 32.2 (30-36) % RDW 16.5 H (11.6-14.8) % Plt Count 193 (150-400) X10^3/uL Neut % (Auto) 86.9 H (50-75) % Lymph % (Auto) 4.7 L (25-40) % [place] % (Auto) 8.0 (3-14) % Eos % (Auto) 0.0 L (2-4) % Baso % (Auto) 0.4 (0-2) % Neut # (Auto) 55530 H (1919-2109) /uL Lymph # (Auto) 700 L (3008-3883) /uL [place] # (Auto) 1100 H (0-900) /uL Eos # (Auto) 0 (0-450) /uL Baso # (Auto) 100 (0-100) /uL COVID-19 PCR Negative (Negative) Point of Care Testing Glucose POC 295 Imaging Data Chest x-ray: Radiologist's Impression: [address] [address] XRay Report Signed Patient: Kristine Moon RMR#: [id number] : [id number]:[id number] Age/Sex: 64 / FDate of Service: 12/26/19 Loc: ED Accession Number: [id number] Procedure: XR chest 1V Ordering Provider: Socrates Faustin MD PROCEDURE: XR CHEST 1V INDICATIONS: Fall. TECHNIQUE: One view of the chest was acquired. COMPARISON: [facility], , XR CHEST 2V, 08/01/2019, 10:23. FINDINGS: Surgical changes and devices: Partially imaged left proximal humerus hardware. Lungs and pleura: Lungs are clear. No pleural effusions or pneumothorax. Mediastinum: Mediastinal contours appear normal for patient's supine position. Heart size is normal. Bones and chest wall: No suspicious bony lesions. Overlying soft tissues appear unremarkable. IMPRESSION: No acute cardiopulmonary disease. Dictated by: Sun Jiang M.D. on 12/26/2019 at 8:03 Approved by: Sun Jiang M.D. on 12/26/2019 at 8:04 Pelvis/left hip x-ray:: Radiologist's Impression: [address] [address] XRay Report Signed Patient: Kristine Moon RMR#: [id number] : [id number]:[id number] Age/Sex: 64 / FDate of Service: 12/26/19 Loc: ED Accession Number: [id number] Procedure: XR hip w pel if done LT 2V Ordering Provider: Socrates Faustin MD PROCEDURE: XR HIP W PEL IF DONE LT 2V INDICATIONS: Fall. Left hip pain. TECHNIQUE: AP pelvis with lateral view(s) of the left hip(s). COMPARISON: None. FINDINGS: Bones: Decreased mineralization. There is no impacted subcapital left femoral neck fracture or resulting in slightly valgus deformity of the left hip. No other fractures identified. Pelvic ring appears intact. No suspicious bony lesions. Soft tissues: The visualized bowel gas pattern is normal. No suspicious soft tissue calcifications. Heavy abdominal aortic and iliac calcification. IMPRESSION: 1. Impacted subcapital left femoral neck fracture. Dictated by: Sun Jiang M.D. on 12/26/2019 at 8:01 Approved by: Sun Jiang M.D. on 12/26/2019 at 8:02 Critical Care Time Critical Care Time Critical Care Time: Yes Total Critical Care Time: 50 Attestation: Critical care time included initial evaluation of patient, evaluation past medical records, evaluation of lab and x-ray data. Time included reviewing the data with the patient as well as consultation with the orthopedic surgeon and admitting hospitalist. Discharge Plan Departure Patient Disposition: Admitted As Inpatient Clinical Impression: Closed fracture of left hip Qualifiers: Encounter type: initial encounter Qualified Code(s): S72.002A - Fracture of unspecified part of neck of left femur, initial encounter for closed fracture Hypertension Qualifiers: Hypertension type: essential hypertension Qualified Code(s): I10 - Essential (primary) hypertension Type 2 diabetes mellitus Qualifiers: Diabetes mellitus intermodal customer service insulin use: with intermodal customer service use Diabetes mellitus complication status: with hyperglycemia Qualified Code(s): E11.65 - Type 2 diabetes mellitus with hyperglycemia Admit Date/Time: 12/26/19 10:39 Admit Provider: Sivan Gauthier
--- NOTE | 2019-12-26 08:25 | DI.RAD.S_ITS ---
PROCEDURE: XR HIP W PEL IF DONE LT 2V INDICATIONS: Fall. Left hip pain. TECHNIQUE: AP pelvis with lateral view(s) of the left hip(s). COMPARISON: None. FINDINGS: Bones: Decreased mineralization. There is no impacted subcapital left femoral neck fracture or resulting in slightly valgus deformity of the left hip. No other fractures identified. Pelvic ring appears intact. No suspicious bony lesions. Soft tissues: The visualized bowel gas pattern is normal. No suspicious soft tissue calcifications. Heavy abdominal aortic and iliac calcification. IMPRESSION: 1. Impacted subcapital left femoral neck fracture. Dictated by: Sun Jiang M.D. on 12/26/2019 at 8:01 Approved by: Sun Jiang M.D. on 12/26/2019 at 8:02
--- NOTE | 2019-12-26 08:26 | DI.RAD.S_ITS ---
PROCEDURE: XR CHEST 1V INDICATIONS: Fall. TECHNIQUE: One view of the chest was acquired. COMPARISON: [facility], CR, XR CHEST 2V, 08/01/2019, 10:23. FINDINGS: Surgical changes and devices: Partially imaged left proximal humerus hardware. Lungs and pleura: Lungs are clear. No pleural effusions or pneumothorax. Mediastinum: Mediastinal contours appear normal for patient's supine position. Heart size is normal. Bones and chest wall: No suspicious bony lesions. Overlying soft tissues appear unremarkable. IMPRESSION: No acute cardiopulmonary disease. Dictated by: Sun Jiang M.D. on 12/26/2019 at 8:03 Approved by: Sun Jiang M.D. on 12/26/2019 at 8:04
[2019-12-26] MEDS: SODIUM CHLORIDE 0.9% 1,000 ML 150 ML IV (09:00)
[2019-12-26] MEDS: HYDROMORPHONE 1 MG INJ 0.5 MG IV (09:01)
[2019-12-26] MEDS: AMLODIPINE 2.5 MG TABLET PO (09:03)
[2019-12-26] MEDS: lisinopriL 20 MG TABLET 30 MG PO (09:04)
[2019-12-26] MEDS: HYDRALAZINE 10 MG TABLET 20 MG PO ×2 (09:06→20:35)
[2019-12-26 10:10] LABS: Add Manual Diff / Slide Review NO; Basophils Absolute Auto 100 /uL (0-100); Basophils Percent Auto 0.4 % (0-2); Eosinophils Absolute Auto 0 /uL (0-450); Hemoglobin 11.6 g/dL (12.0-16.0); Lymphocytes Absolute Auto 700 /uL (1100-4500); Lymphocytes Percent Auto 4.7 % (25-40); Mean Corpuscular HGB Conc 32.2 % (30-36); Mean Corpuscular Hemoglobin 28.1 PG (26-34); Mean Corpuscular Volume 87.2 fL (80-100); Monocytes Absolute Auto 1100 /uL (0-900); Neutrophils Absolute Auto 12100 /uL (1500-7000); Neutrophils Percent Auto 86.9 % (50-75); Platelet Count 193 X10^3/uL (150-400); Red Blood Cell Count 4.13 X10^6/uL (4.0-5.2); Red Cell Distribution Width 16.5 % (11.6-14.8); White Blood Cell Count 13.9 X10^3/uL (4.5-11.0)
--- NOTE | 2019-12-26 10:48 | PM.CN ---
History of Present Illness Consult details Date Patient Seen: 12/26/19 Time Patient Seen: 10:48 Chief complaint: GLF Reason for consult: Left hip pain, left subcapital femoral fracture. 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 She fell from bed last night sustaining an injury to her left hip. She was unable to get up independently and emergency services were called for transport to [facility] Emergency Department. Radiographs have revealed a significant angulated, impacted left femoral neck fracture. Meds Home Medications and Allergies Home Medications Medication Instructions Recorded Confirmed Type Marijuana 1 ea INHALATION DAILY 10/08/17 08/02/19 History atorvastatin 40 mg PO QPM 10/08/17 08/02/19 History cholecalciferol (vitamin D3) 3,000 unit PO DAILY 10/08/17 08/02/19 History [Vitamin D3] insulin aspart U-100 [Novolog 1 dose SUBCUT QIDACHS 10/08/17 08/02/19 History Flexpen U-100 Insulin] pen needle, diabetic 10/30/17 08/02/19 History mirtazapine 15 mg PO BEDTIME 02/19/18 08/02/19 History Basaglar KwikPen U-100 Insulin 8 unit SUBCUT BID 02/20/19 08/02/19 History Myrbetriq 25 mg PO DAILY 08/02/19 08/02/19 History amlodipine 2.5 mg PO DAILY 08/02/19 08/02/19 History cyanocobalamin (vitamin B-12) 1,000 mcg PO DAILY 08/02/19 08/02/19 History hydralazine 20 mg PO BID 08/02/19 08/02/19 History lisinopril 30 mg PO DAILY 08/02/19 08/02/19 History oxybutynin chloride 5 mg PO BEDTIME 08/02/19 08/02/19 History sucralfate 1 g PO QID 08/02/19 08/02/19 History tizanidine 2 mg PO Q8H PRN 08/02/19 08/02/19 History aspirin [Aspirin Low Dose] 81 mg PO DAILY #30 tab 08/04/19 Rx ondansetron 4 mg PO Q6H PRN #14 tab 11/12/19 Rx Allergies Allergy/AdvReac Type Severity Reaction Status Date / Time Iodine and Iodide Containing Allergy Unknown Verified 08/26/19 18:03 Produc [IODINE AND IODIDE CONTAINING PRODUC] latex [LATEX] Allergy Unknown Verified 08/26/19 18:03 Review of Systems Review of Systems ROS: Yes All systems reviewed with the patient and are negative except as otherwise documented Exam Vital Signs (past 8 hours): - 12/26/19 08:13 12/26/19 09:04 12/26/19 10:29 Temperature 98.1 F Pulse Rate 94 H 88 85 Respiratory Rate 16 20 Blood Pressure 212/98 H 202/94 H 203/95 H Pulse Oximetry 99 97 Oxygen Delivery Method Room Air Narrative Exam Narrative: HEENT examination is normocephalic atraumatic. Chest is clear to auscultation. Coronary exam is regular rate and rhythm. Abdomen is soft nontender. Left leg is at appropriate length. There are no skin lesions over the proposed site of incision. Rotation of the leg is painful. Light touch and motion are intact in the left foot. She has a 1+ dorsalis pedis and posterior tibial pulse. Objective Labs Result Diagrams: 12/26/19 10:00 12/26/19 10:00 Labs: Laboratory Results - last 24 hr 12/26/19 10:00 WBC 13.9 H RBC 4.13 Hgb 11.6 L Hct 36.0 MCV 87.2 MCH 28.1 MCHC 32.2 RDW 16.5 H Plt Count 193 Neut % (Auto) 86.9 H Lymph % (Auto) 4.7 L [place] % (Auto) 8.0 Eos % (Auto) 0.0 L Baso % (Auto) 0.4 Neut # (Auto) 30037 H Lymph # (Auto) 700 L [place] # (Auto) 1100 H Eos # (Auto) 0 Baso # (Auto) 100 Assessment & Plan Assessment & Plan narrative: The patient has brittle diabetes and hypertension as well as a impacted but moderately angulated subcapital femoral fracture. This would be best addressed with a hemiarthroplasty. I have discussed her medical care with the hospitalist on duty and they believe they can get her blood sugar into reasonable control by this afternoon. We will plan to proceed at that point with the hemiarthroplasty. The risks benefits and alternatives to surgery were discussed with the patient. Risks discussed included but were not limited to: Failure to provide pain relief, dislocation, infection, stiffness, leg-length discrepancy, nerve damage, deep venous thrombosis, pulmonary embolism, stroke, myocardial infarction, permanent paralysis and . A COVID-19 test has been ordered but is pending at the time of this dictation.
[2019-12-26] MEDS: INSULIN REGULAR 100 UNIT/ML 3 ML VIAL 10 UNIT IV (11:14)
[2019-12-26 11:36] LABS: INR 0.9 (0.9-1.3); Prothrombin Time 10.8 SECONDS (10.1-12.7)
[2019-12-26] MEDS: LABETALOL 20 MG/4 ML SYRINGE 10 MG IV (11:37)
[2019-12-26] MEDS: HYDROMORPHONE 0.5 MG INJ IV (11:37)
[2019-12-26 11:39] LABS: PTT Partial Thromboplastin Tim 31 SECONDS (26.4-36.2)
[2019-12-26 11:41] LABS: Alanine Aminotransferase 23 IU/L (<35); Albumin 3.3 g/dL (3.5-5.0); Albumin Globulin Ratio 1.1 (1.0-2.8); Alkaline Phosphatase 121 U/L (38-126); Aspartate Aminotransferase 26 IU/L (14-36); BUN Creatinine Ratio 27.2 (6-22); Bilirubin Total 1.1 mg/dL (0.2-1.3); Blood Urea Nitrogen 28 mg/dL (7-17); Calcium 9.5 mg/dL (8.4-10.2); Carbon Dioxide 28 mmol/L (22-32); Chloride 104 mmol/L (98-107); Estimated Glomerular Filt Rate 54.1 mL/min (>60); Globulin 3.1 g/dL (1.7-4.1); Potassium 3.9 mmol/L (3.4-5.1); Sodium 135 mmol/L (137-145); Total Protein 6.4 g/dL (6.3-8.2)
[2019-12-26 11:52] LABS: COVID19 -Nasal RAPID Negative (Negative)
[2019-12-26 11:58] LABS: HEMOLYSIS 28 (0-50)
[2019-12-26 12:07] LABS: Glucose 495 mg/dL (80-110)
--- NOTE | 2019-12-26 12:17 | PC.NURSE ---
Catheter placed by Mandi TOWNSEND
--- NOTE | 2019-12-26 12:35 | PC.NURSE ---
Day shift: Pt on unit from ED at approx 1220. Justin in [address]. Oriented to room and call light. Hip surgery planned for 1400 today. Call light in reach. Pt agrees to not get OOB w/o help from staff. BP elevated as well as BG and Dr Gauthier is aware. Will continue to monitor.
[2019-12-26 12:37] LABS: Magnesium 1.6 mg/dL (1.6-2.3)
[2019-12-26 12:45] LABS: Hemoglobin A1C% w Est Avg Glu 10.4 % (4.0-6.0)
[2019-12-26] MEDS: INSULIN REGULAR 100 UNIT/ML 3 ML VIAL IV (13:37)
--- NOTE | 2019-12-26 13:50 | PC.NURSE ---
Day shift: Pt off unit for surgery at approx 1345.
[2019-12-26] MEDS: CEFAZOLIN 1 GM/50 ML FROZ.PIGGY IV (14:04)
--- NOTE | 2019-12-26 14:36 | PM.HP.1 ---
History of Present Illness History of Present Illness Date Patient Seen: 12/26/19 Chief complaint: GLF Narrative: Kristine Moon is a 64-year-old female is a poor historian with a past medical history significant for hypertension, hyperlipidemia, prior CVA with residual left-sided weakness and subdural hematoma (04/2019) with probable yugj-yt-ogqwasgs dementia, diabetes mellitus type 2, insulin using, former alcohol dependence reportedly in remission with history of chronic calcific pancreatitis, peptic ulcer disease with prior GI bleed, GERD, Dow's esophagitis, and cholecystectomy complicated by biliary ductal injury with prior stenting and pneumobilia, and overactive bladder who presented to the ED via EMS after ground level fall with subsequent left hip pain and inability to ambulate. The patient reports that last night around 10:30 she was walking into her bedroom and sat down at the edge of the bed and slid off the bed onto the floor due to her silk underwear. She began having immediate left hip pain. She was unable to walk and her significant other, Pablo Dowd, helped her into bed. She reports she went to sleep but then her significant other Pablo Dowd decided to call EMS due to intractable pain. The patient is a poor historian and has what appears to be sdzf-np-ndlrezep dementia with short and long-term memory impairment. She is alert oriented to person and place. She is unable to tell me the current date and time of year or the current season of year. She reports that she believes it is May 2001. She endorses previous alcoholism with alcohol dependence that has been in remission since she broke her left humerus and had a protracted stay at [facility] which she believes was recently but appears to be dated back to 2017. Previous speech therapy evaluation documented MOCA of +17/30 which would put her in dementia category. She has no complaints other than chronic daily headache. She denies sore throat, chest pain or pressure, shortness of breath, abdominal pain, nausea, vomiting, fever, chills, dysuria, diarrhea or constipation. She denied nausea but then had an episode of emesis in the room with food contents. She reports she has not eaten since yesterday and reports she did not eat dinner last night. PCP is Jyoti Streeter MD Patient History Medical History (Updated 12/26/19 @ 15:38 by Sivan Gauthier DO) Dow's esophagus with esophagitis (Acute) CVA (cerebral vascular accident) (Acute) Dementia (Acute) Diabetes (Acute) Gallbladder disease (Chronic) GERD (gastroesophageal reflux disease) (Acute) Hyperlipidemia (Acute) Hypertension (Acute) Overactive bladder (Acute) Subdural hematoma (Acute) Upper GI bleed (Acute) Surgical History History of cholecystectomy (Acute) Tubal ligation status (Acute) Family & Social History Family History Mother Heart disease Father No problems noted. Social History: household members significant other Safety & Behavioral: Feels Safe in Current Yes Environment Been Physically Hurt or No Threatened By a Person Tobacco & Substance use: Tobacco type 1 PPD x 40 years cigarettes,cannabis/marijuana Smoking Status Current every day smoker alcohol intake former alcohol intake frequency holiday/special occasion Substance Use Type marijuana The patient has a significant other, Pablo Dowd, for 10 years and designates him her surrogate decision maker. She has 3 children, 2 sons and 1 daughter, who are all healthy. Meds Home Medications and Allergies Home Medications Medication Instructions Recorded Confirmed Type atorvastatin 40 mg PO QPM 10/08/17 12/26/19 History cholecalciferol (vitamin D3) 3,000 unit PO DAILY 10/08/17 12/26/19 History [Vitamin D3] insulin aspart U-100 [Novolog 1 dose SUBCUT QIDACHS 10/08/17 12/26/19 History Flexpen U-100 Insulin] mirtazapine 15 mg PO BEDTIME 02/19/18 12/26/19 History Basaglar KwikPen U-100 Insulin 11 unit SUBCUT BID 02/20/19 12/26/19 History cyanocobalamin (vitamin B-12) 1,000 mcg PO DAILY 08/02/19 12/26/19 History hydralazine 20 mg PO BID 08/02/19 12/26/19 History lisinopril 30 mg PO DAILY 08/02/19 12/26/19 History sucralfate 1 g PO QID 08/02/19 12/26/19 History tizanidine 2 mg PO Q8H PRN 08/02/19 12/26/19 History aspirin [Aspirin Low Dose] 81 mg PO DAILY #30 tab 08/04/19 12/26/19 Rx ondansetron 8 mg PO Q6H PRN 12/26/19 12/26/19 History pantoprazole 40 mg PO POSTTR 12/26/19 12/26/19 History propranolol 20 mg PO DAILY 12/26/19 12/26/19 History spironolactone 25 mg PO DAILY 12/26/19 12/26/19 History tramadol 50 mg PO BID PRN 12/26/19 12/26/19 History Allergies Allergy/AdvReac Type Severity Reaction Status Date / Time Iodine and Iodide Containing Allergy Unknown Verified 12/26/19 12:01 Produc [IODINE AND IODIDE CONTAINING PRODUC] latex [LATEX] Allergy Unknown Verified 12/26/19 12:01 Review of Systems Review of Systems Narrative: A 10 system comprehensive review of systems was conducted with the patient and found to be negative except as above in the History of Present Illness. Exam Vital Signs (past 8 hours): - 12/26/19 08:13 12/26/19 09:04 12/26/19 10:29 Temperature 98.1 F Pulse Rate 94 H 88 85 Respiratory Rate 16 20 Blood Pressure 212/98 H 202/94 H 203/95 H Pulse Oximetry 99 97 12/26/19 10:41 12/26/19 11:37 12/26/19 11:49 Temperature Pulse Rate 88 80 82 Respiratory Rate 15 Blood Pressure 196/95 H 209/75 H 204/96 H Pulse Oximetry 95 12/26/19 12:01 12/26/19 12:04 12/26/19 12:30 Temperature 98.8 F Pulse Rate 81 82 79 Respiratory Rate 18 18 Blood Pressure 146/81 H 146/67 H 151/89 H Pulse Oximetry 98 99 12/26/19 13:54 Temperature Pulse Rate 78 Respiratory Rate 16 Blood Pressure 151/69 H Pulse Oximetry 100 Oxygen Delivery Method Room Air Oxygen Flow Rate 98 Narrative Exam Narrative: General: Older thin and frail-appearing female lying in bed and in no acute distress, appears older than stated age in chronically ill, zzaq-na-pcgyohlb dementia with short and long-term memory impairment otherwise appropriately interactive HEENT: Normocephalic, atraumatic. External ears without defect. Pupils equal, round, and reactive to light. Anicteric sclerae, moist conjunctivae, and no lid lag. Oropharynx free of erythema and cobble stoning with moist mucosa. Neck: Supple with full range of motion. No jugular venous distension. No lymphadenopathy or thyromegaly. Cardiovascular: Regular rate and rhythm without murmurs, rubs, or gallops appreciated Pulmonary: Clear to auscultation bilaterally without crackles, wheezes, or rhonchi. Normal respiratory effort with no use of accessory muscles. Abdomen: Soft, bowel sounds present, nontender, nondistended. No hepatosplenomegaly or masses appreciated. Extremities: No clubbing, cyanosis, or edema. No palpable tenderness or obvious deformity of left hip. Distal pulses and movement intact. Skin: Normal temperature, turgor, and texture; no rash, ulcers, or subcutaneous nodules appreciated. Neurological: Cranial nerves grossly intact. Psychiatric: Normal mood and affect. Alert and oriented to person and place. Wgvy-lr-lgovmvsw dementia with short and long-term memory impairment. Objective Labs Result Diagrams: 12/26/19 10:00 12/26/19 11:18 Labs: Laboratory Results - last 24 hr 12/26/19 12/26/19 12/26/19 10:00 10:25 11:18 WBC 13.9 H RBC 4.13 Hgb 11.6 L Hct 36.0 MCV 87.2 MCH 28.1 MCHC 32.2 RDW 16.5 H Plt Count 193 Neut % (Auto) 86.9 H Lymph % (Auto) 4.7 L [place] % (Auto) 8.0 Eos % (Auto) 0.0 L Baso % (Auto) 0.4 Neut # (Auto) 20541 H Lymph # (Auto) 700 L [place] # (Auto) 1100 H Eos # (Auto) 0 Baso # (Auto) 100 PT 10.8 INR 0.9 APTT 31 D Sodium Potassium Chloride Carbon Dioxide BUN Creatinine Estimated GFR BUN/Creatinine Ratio Glucose Hemoglobin A1c Calcium Magnesium Total Bilirubin AST ALT Alkaline Phosphatase Total Protein Albumin Globulin Albumin/Globulin Ratio COVID-19 PCR Negative 12/26/19 12/26/19 12/26/19 11:18 11:18 11:18 WBC RBC Hgb Hct MCV MCH MCHC RDW Plt Count Neut % (Auto) Lymph % (Auto) Harnett % (Auto) Eos % (Auto) Baso % (Auto) Neut # (Auto) Lymph # (Auto) [place] # (Auto) Eos # (Auto) Baso # (Auto) PT INR APTT Sodium 135 L Potassium 3.9 Chloride 104 Carbon Dioxide 28 BUN 28 H Creatinine 1.03 Estimated GFR 54.1 L BUN/Creatinine Ratio 27.2 H Glucose 495 H* Hemoglobin A1c 10.4 H Calcium 9.5 Magnesium 1.6 Total Bilirubin 1.1 AST 26 ALT 23 Alkaline Phosphatase 121 Total Protein 6.4 Albumin 3.3 L Globulin 3.1 Albumin/Globulin Ratio 1.1 COVID-19 PCR Assessment & Plan Assessment & Plan narrative: Kristine Moon is a 64-year-old female is a poor historian with a past medical history significant for hypertension, hyperlipidemia, prior CVA with residual left-sided weakness and subdural hematoma (04/2019) with probable gmuv-vx-cqbdznec dementia, diabetes mellitus type 2, insulin using, former alcohol dependence reportedly in remission with history of chronic calcific pancreatitis, peptic ulcer disease with prior GI bleed, GERD, Dow's esophagitis, and cholecystectomy complicated by biliary ductal injury with prior stenting and pneumobilia, and overactive bladder who presented to the ED via EMS after ground level fall with subsequent left hip pain and inability to ambulate. 1. Acute pathological left hip fracture, present on admission. Active. -Patient presented after ground level fall with left hip pain and inability to ambulate. -Left hip x-ray demonstrated impacted subcapital left femoral neck fracture. -Continue vitamin D3 and calcium supplementation. Patient will need be treated for osteoporosis as an outpatient by her PCP or orthopedic surgery. -Orthopedic surgery consulted, Dr. Lopez, who plans to perform surgical repair later this afternoon as long as blood glucose and blood pressure have improved. Continue postoperative management, pain control and DVT prophylaxis per Orthopedic surgery. 2. Hypertension, chronic, present on admission. Stable. -Patient's initial blood pressure was highly elevated 212/98 likely due to pain response. -Orthopedic surgery allowed for patient to have previous listed antihypertensives including amlodipine 2.5 mg x1, hydralazine 20 mg x 1, and lisinopril 30 mg x 1 with a sip of water and additionally received labetalol 10 mg IV x1 with improvement in SBP 140s. -Continue home antihypertensives (list updated) which include: Hydralazine 20 mg twice daily, lisinopril 30 mg daily, propanolol 20 mg daily and spironolactone 25 mg daily. 3. Diabetes mellitus type 2, insulin using, chronic, present on admission. Stable. -Hemoglobin A1c 10.4% indicative of poor glycemic control. -Initial blood glucose of 495 on admission and received regular insulin 10 units IV x1 with improvement of blood glucose to 345. Plan to give another regular insulin 5 units IV x1 preoperatively. -Continue every 6 hour blood glucose checks while NPO and then ACHS once patient taking in PO intake and low-dose correctional scale insulin. -Plan to restart home Lantus once patient is taking in PO intake adequately possibly tonight postoperatively. -Continue heart healthy/carbohydrate consistent diet. 4. Hyperlipidemia and history of CVA with residual left-sided weakness and subdural hematoma with probable gjwm-cl-cnfbgakl dementia, chronic, present on admission. Stable. -Continue home aspirin 81 mg daily and atorvastatin 40 mg daily at bedtime. -Continue home mirtazapine 15 mg daily at bedtime. -Continue to reorient frequently and limit PANTRY WORKER active medications as much as possible. -Ordered occupational therapy to evaluate cognition with SLUMS, pending. Previously speech therapy evaluated patient with MO CA in 2018 which the patient scored a +17/30. 5. GERD with history of Dow's esophagitis and peptic ulcer disease with previous GI bleed, chronic, present on admission. Stable. -Continue Protonix 40 mg daily and Carafate 1 g 4 times daily. 6. Overactive bladder, chronic, present on admission. Stable. -Continue oxybutynin 5 mg daily at bedtime. 7. Underweight, chronic, present on admission. Stable. -BMI 19.1. -Consulted dietitian, pending. We appreciate her time and recommendations. Code status: Full code, patient designates her significant other Pablo Dowd as heard surrogate decision maker VTE prophylaxis: SCDs, held chemical prophylaxis for planned surgery Patient is admitted under inpatient status with expected length of stay greater than 2 midnights due to severity of presenting symptoms, risk of adverse event, and complexity of treatment plan.
[2019-12-26] MEDS: TRANEXAMIC ACID 1,000 MG VIAL 2000 MG INJ (14:42)
--- NOTE | 2019-12-26 15:02 | SUR.OPER ---
BG 188 AT 1456
--- NOTE | 2019-12-26 15:09 | SUR.OPER ---
Lateral on padded OR bed. Gel axillary roll. Arms secured on padded armboard with pillow supporting top arm. Padded hip positioner braces x4 - anterior and posterior chest and pelvis. Additional gel pad used anterior pelvis. Gel pad under bottom leg from knee to foot and secured with tape over sheet.
[2019-12-26] MEDS: BUPIVACAINE 0.5% W/ EPI (PF) 30 ML VIAL INJ (15:24)
[2019-12-26] MEDS: SODIUM CHLORIDE IRRIG SOLUTION 250 ML, EPINEPHrine 1 MG IRR (15:24)
--- NOTE | 2019-12-26 15:52 | P.OP_ITS ---
Operative Date/Time/Diagnoses Date of procedure: 12/26/19 Time of procedure: 15:52 Pre-op diagnosis: Left subcapital femoral fracture Post-op diagnosis: same Procedure & Clinicians Procedure: Left hip hemiarthroplasty Same procedure as scheduled: Yes Indications: The patient is a debilitated 64-year-old woman who suffered a fall from bed last night and was unable to arise. Radiographs revealed a impacted but significantly angulated subcapital femoral neck fracture of the left hip. She has agreed to hemiarthroplasty after discussion the risks benefits and alternatives. Risks are documented in my preoperative consult note. Surgeon: Enrique Lopez [employer] Sales Agent: Ankit Andrew Click Yes if Unassisted: No Anesthesia Type: General, Spinal and Local Operative Notes Findings: Significantly valgus and retroverted femoral head with soft, osteoporotic bone. Closure Type: primary Specimen(s): none sent Prosthetic devices, grafts, tissues, transplants, or devices: Implants used in this procedure were manufactured by the [employer] and included a cemented Synergy total hip stem, size 13, with a 10 mm distal cement centralizer, a +0 modular sleeve and a 45 mm Tandem unipolar cobalt chromium femoral head. Applied: catheter and implant(s) Estimated Blood Loss (mL): 150 Blood products transfused: none Procedure in detail: The patient was seen in the pre-operative area, where the patient identified the left hip as the operative site and this was marked with my initials. The patient received pre-operative antibiotics and was taken to the operating room and placed on the operative table in the right lateral decubitus position after satisfactory anesthesia. A full timeout was performed. The left leg was prepared from the ankle to the iliac crest with ChloroPrep in the usual fashion and draped through sterile drapes. The hip was approached through an approximately 15 cm incision centered over the greater trochanter and curving gently posteriorly as it went proximally. This was carried sharply to the fascia rex, which was divided and retracted with a self-retaining retractor. The trochanteric bursa was excised with care being taken to avoid the sciatic nerve, which was identified and protected throughout the case. The short external rotators were incised and the capsulomuscular flap was raised and tagged for later repair. The hip was dislocated, and a femoral neck osteotomy performed approximately 15 mm above the lesser trochanter. Retractors were placed to expose the acetabulum. The femoral head was measured and a trial femoral head inserted into the acetabulum. The appropriate size was chosen. We then turned our attention to the femur. The canal was opened with a box cutting osteotome, followed by a T-handled reamer and a lateralizing reamer. The tapered reamers were then used, followed by sequential broaching. A trial head and neck were then placed and the hip relocated and checked for leg length and stability. The patient was stable in the position of sleep, of squatting, and could be put through a range of motion with 45 degrees internal rotation without dislocation. At 90 degrees flexion, internal rotation to 70? was possible before dislocation. This was felt to be satisfactory and the appropriate components were opened, and the trials were removed. The femoral canal was plugged with a distal cement plug and irrigated with pulsatile lavaged and dried with a vaginal packing sponge. Cement was then retrograde injected and pressurized. The final stem was then impacted into the prepared femoral canal. Finally the femoral head was impacted onto the stem. The acetabulum was cleared of all material and the hip relocated one final time. Radiographs were obtained intra- operatively confirming the position of all components and confirming that there were no iatrogenic fractures. The capsulomuscular flap was then repaired to the greater trochanter though an awl hole using the tag sutures. The fascia rex was closed with running and interrupted 0 Vicryl. A subcutaneous drain was placed. The subcutaneous layer was closed with interrupted 3-0 Vicryl, and the skin with a running 3-0 V-Lock suture and SteriStrips. An Aquacel Ag dressing was applied and the patient was taken to recovery having tolerated the procedure well. Complications: none Post-operative Condition: stable Disposition: PACU Plan for aftercare: The patient will be maintained on posterior hip precautions. She will likely be maintained in the hospital for approximately 3 days but may be discharged earlier should she make satisfactory progress with physical therapy. Her brittle diabetes will be under the evaluation and treatment of the medical service.
[2019-12-26] MEDS: LACTATED RINGERS 1,000 ML 125 ML IV (17:00)
[2019-12-26] MEDS: ONDANSETRON 4 MG/2 ML INJ IV (17:26)
[2019-12-26] MEDS: ATORVASTATIN 20 MG TABLET 40 MG PO (20:05)
[2019-12-26] MEDS: MIRTAZAPINE 15 MG TABLET PO (20:05)
[2019-12-26] MEDS: ASPIRIN EC 81 MG TABLET PO (20:06)
[2019-12-26] MEDS: ACETAMINOPHEN 325 MG TABLET 650 MG PO (20:06)
[2019-12-26] MEDS: SUCRALFATE 1 GM TABLET PO (20:33)
[2019-12-26] MEDS: OXYBUTYNIN 5 MG TABLET PO (20:33)
[2019-12-26] MEDS: IBUPROFEN 400 MG TABLET PO (20:40)
[2019-12-26] MEDS: DOCUSATE 100 MG CAPSULE PO (20:53)
--- NOTE | 2019-12-26 21:11 | PC.NURSE ---
Addendum entered by Faiza Liu R.N. 12/26/19 21:16: Tele shows NSR/BBB per ICU staff. Original Note: Pt arrived back to floor @ 1640. Alert/oriented, denies any discomfort. IV LR infusing via pump @ 125cc/hr into LAC w/o incidence. Med @ 1730 w/zofran for nausea, w/good relief. Aquacell dsg to left hip CDI. Anderson cath patent emi urine. Satisfactory post op course. Call light w/in reach, bed alarm on for pt safety.
[2019-12-26] MEDS: MAGNESIUM SULFATE 2 GM/50 ML PIGGYBACK IV (22:41)
[2019-12-27] VITALS (15 sets, daily range): BP systolic 142–162; BP diastolic 75–99; PULSE 69–90; RESP 15–18; TEMP 36.1–36.9; O2SAT 95–100
[2019-12-27] MEDS: IBUPROFEN 400 MG TABLET PO ×3 (00:34→08:48)
[2019-12-27] MEDS: LACTATED RINGERS 1,000 ML 125 ML IV (02:38)
--- NOTE | 2019-12-27 05:33 | PC.NURSE ---
Addendum entered by Mellisa Zelaya R.N. 12/27/19 06:55: Dressing on L hip is C/D/I. Pt has had no c/o of pain throughout shift. Addendum entered by Mellisa Zelaya R.N. 12/27/19 05:54: CHASIDY Resendiz notified, no new orders Original Note: Pt terrazas draining 125mL emi clear urine. Bladder scan = 9mL. Pt encouraged to drink water.
[2019-12-27 06:20] LABS: Add Manual Diff / Slide Review NO; Basophils Absolute Auto 0 /uL (0-100); Basophils Percent Auto 0.2 % (0-2); Eosinophils Absolute Auto 0 /uL (0-450); Eosinophils Percent Auto 0.4 % (2-4); Hematocrit 30.5 % (36-46); Lymphocytes Absolute Auto 1800 /uL (1100-4500); Lymphocytes Percent Auto 14.2 % (25-40); Mean Corpuscular Hemoglobin 28.6 PG (26-34); Mean Corpuscular Volume 86.7 fL (80-100); Monocytes Absolute Auto 1100 /uL (0-900); Monocytes Percent Auto 8.8 % (3-14); Neutrophils Absolute Auto 9500 /uL (1500-7000); Neutrophils Percent Auto 76.4 % (50-75); Platelet Count 160 X10^3/uL (150-400); Red Blood Cell Count 3.52 X10^6/uL (4.0-5.2); Red Cell Distribution Width 16.5 % (11.6-14.8); White Blood Cell Count 12.5 X10^3/uL (4.5-11.0)
[2019-12-27 06:31] LABS: BUN Creatinine Ratio 23.3 (6-22); Blood Urea Nitrogen 27 mg/dL (7-17); Calcium 8.1 mg/dL (8.4-10.2); Carbon Dioxide 25 mmol/L (22-32); Chloride 107 mmol/L (98-107); Estimated Glomerular Filt Rate 47.2 mL/min (>60); Glucose 155 mg/dL (80-110); HEMOLYSIS < 15 (0-50); Magnesium 2.2 mg/dL (1.6-2.3); Potassium 3.2 mmol/L (3.4-5.1); Sodium 136 mmol/L (137-145)
--- NOTE | 2019-12-27 08:04 | P.PN_ITS ---
Subjective Subjective Date Patient Seen: 12/27/19 Time Patient Seen: 08:05 Interval history: The patient reports she feels like her hip is ?bruised? but that her pain level is less than when it was originally fractured. Exam Vital Signs (past 8 hours): - 12/27/19 00:10 12/27/19 03:03 12/27/19 04:00 Temperature 96.9 F L 96.9 F L Pulse Rate 90 86 Respiratory Rate 16 16 Blood Pressure 147/75 H 142/89 H Pulse Oximetry 99 100 100 12/27/19 07:29 Temperature Pulse Rate Respiratory Rate Blood Pressure Pulse Oximetry 99 Oxygen Delivery Method Room Air Oxygen Flow Rate 0 Narrative Exam Narrative: Leg length and rotation appear appropriate. No pain on logroll of the left lower extremity. Calf is soft. Light touch and motion are intact in the left foot. Objective Labs Result Diagrams: 12/27/19 06:09 12/27/19 06:09 Labs: Laboratory Results - last 24 hr 12/26/19 12/26/19 12/26/19 10:00 10:25 11:18 WBC 13.9 H RBC 4.13 Hgb 11.6 L Hct 36.0 MCV 87.2 MCH 28.1 MCHC 32.2 RDW 16.5 H Plt Count 193 Neut % (Auto) 86.9 H Lymph % (Auto) 4.7 L [place] % (Auto) 8.0 Eos % (Auto) 0.0 L Baso % (Auto) 0.4 Neut # (Auto) 30076 H Lymph # (Auto) 700 L [place] # (Auto) 1100 H Eos # (Auto) 0 Baso # (Auto) 100 PT 10.8 INR 0.9 APTT 31 D Sodium Potassium Chloride Carbon Dioxide BUN Creatinine Estimated GFR BUN/Creatinine Ratio Glucose Hemoglobin A1c Calcium Magnesium Total Bilirubin AST ALT Alkaline Phosphatase Total Protein Albumin Globulin Albumin/Globulin Ratio COVID-19 PCR Negative 12/26/19 12/26/19 12/26/19 11:18 11:18 11:18 WBC RBC Hgb Hct MCV MCH MCHC RDW Plt Count Neut % (Auto) Lymph % (Auto) [place] % (Auto) Eos % (Auto) Baso % (Auto) Neut # (Auto) Lymph # (Auto) [place] # (Auto) Eos # (Auto) Baso # (Auto) PT INR APTT Sodium 135 L Potassium 3.9 Chloride 104 Carbon Dioxide 28 BUN 28 H Creatinine 1.03 Estimated GFR 54.1 L BUN/Creatinine Ratio 27.2 H Glucose 495 H* Hemoglobin A1c 10.4 H Calcium 9.5 Magnesium 1.6 Total Bilirubin 1.1 AST 26 ALT 23 Alkaline Phosphatase 121 Total Protein 6.4 Albumin 3.3 L Globulin 3.1 Albumin/Globulin Ratio 1.1 COVID-19 PCR 12/27/19 12/27/19 06:09 06:09 WBC 12.5 H RBC 3.52 L Hgb 10.0 L Hct 30.5 L MCV 86.7 MCH 28.6 MCHC 33.0 RDW 16.5 H Plt Count 160 Neut % (Auto) 76.4 H Lymph % (Auto) 14.2 L [place] % (Auto) 8.8 Eos % (Auto) 0.4 L Baso % (Auto) 0.2 Neut # (Auto) 9500 H Lymph # (Auto) 1800 [place] # (Auto) 1100 H Eos # (Auto) 0 Baso # (Auto) 0 PT INR APTT Sodium 136 L Potassium 3.2 L Chloride 107 Carbon Dioxide 25 BUN 27 H Creatinine 1.16 H Estimated GFR 47.2 L BUN/Creatinine Ratio 23.3 H Glucose 155 H D Hemoglobin A1c Calcium 8.1 L Magnesium 2.2 Total Bilirubin AST ALT Alkaline Phosphatase Total Protein Albumin Globulin Albumin/Globulin Ratio COVID-19 PCR Assessment & Plan Post-op Postoperative Procedures: Procedures Operation Date: 12/26/19 14:00 Actual Procedures Side Surgeon p Hip Hemiarthroplasty Left Enrique Lopez MD Postoperative day: 1 Postoperative status: doing well and anemia Postoperative status narrative: The patient is stable with the anticipated postoperative blood loss anemia. She is debilitated and has difficulty with her vision. She will require physical therapy prior to discharge and may require senior care. Postoperative plan: routine post-op care and ambulate Postoperative plan narrative: Up with physical therapy. Depending on her progr ess with therapy her discharge disposition will be determined as home versus senior care. Time Spent With Patient Time with patient: less than 15 minutes
[2019-12-27] MEDS: INSULIN ASPART 100 UNIT/ML INSULN PEN SUBCUT ×3 (08:42→16:41)
[2019-12-27] MEDS: SUCRALFATE 1 GM TABLET PO ×4 (08:42→20:21)
[2019-12-27] MEDS: HYDRALAZINE 10 MG TABLET 20 MG PO ×2 (08:42→20:22)
[2019-12-27] MEDS: PROPRANOLOL 10 MG TABLET 20 MG PO (08:43)
[2019-12-27] MEDS: INSULIN GLARGINE 100 UNIT/ML 3ML PEN 11 UNIT SUBCUT ×2 (08:43→20:24)
[2019-12-27] MEDS: CYANOCOBALAMIN (VITAMIN B-12) 500 MCG TABLET 1000 MCG PO (08:47)
[2019-12-27] MEDS: ACETAMINOPHEN 325 MG TABLET 650 MG PO ×3 (08:47→20:17)
[2019-12-27] MEDS: SPIRONOLACTONE 25 MG TABLET PO (08:47)
[2019-12-27] MEDS: DOCUSATE 100 MG CAPSULE PO ×2 (08:47→20:17)
[2019-12-27] MEDS: ASPIRIN EC 81 MG TABLET PO ×2 (08:47→20:17)
[2019-12-27] MEDS: lisinopriL 10 MG TABLET 30 MG PO (08:48)
[2019-12-27] MEDS: CHOLECALCIFEROL (VITAMIN D3) 1,000 UNIT TABLET 3000 UNIT PO (08:48)
[2019-12-27] MEDS: PANTOPRAZOLE 40 MG TABLET PO ×2 (08:48→20:17)
--- NOTE | 2019-12-27 10:15 | PT.IIE ---
Surgery Performed Operation Date: 12/26/19 14:00 Actual Procedures p Hip Hemiarthroplasty(Left) - Enrique Lopez MD Surgical History (Last Reviewed 12/26/19 @ 15:33 by Sivan Gauthier DO) History of cholecystectomy (Acute) Tubal ligation status (Acute) Medical History (Last Updated 12/26/19 @ 15:38 by Sivan Gauthier DO) Dow's esophagus with esophagitis (Acute) CVA (cerebral vascular accident) (Acute) Dementia (Acute) Diabetes (Acute) Gallbladder disease (Chronic) GERD (gastroesophageal reflux disease) (Acute) Hyperlipidemia (Acute) Hypertension (Acute) Overactive bladder (Acute) Subdural hematoma (Acute) Upper GI bleed (Acute) Physical Therapy Inpatient Evaluation/Re-Eval M1 PT/OT-IP Prior Functional Status Start: 12/27/19 08:38 Freq: NEEDED Status: Active Protocol: Document 12/27/19 10:00 AW (Rec: 12/27/19 11:58 AW [id number]) Medical Review Prior Functional Status Medical History Reviewed Yes Communication Pt had a CVA in 2018 and subdural hematoma in 2019. She has residual memory deficits vs dementia. Thought and speech content are tangential at baseline. Speech is intelligible. Mobility and Gait Pt and her significant other, Pablo, report the patient is very limited in her mobility. She spends most of her time in the bed. Her bathroom is located <10 feet from the bed. She has residual left-sided weakness from her stroke. When she walks, she typically does not use an assistive device. Instead, she depends on furniture or holly for support as needed. Activities of Daily Living and IADL's Pt claims she is independent to modified independent with ADL's. She uses a shower chair for showers. Pt's partner, Pablo, states he assists with showers, drives her to appointments, and helps with meals. Prior Functional Level (Other details) Pt has caregiver support ( Peyman) on , , for ~2.5 hours each day. Pt's partner, Pablo, also states that there is a PT who comes to the house but they are unable to provide agency name. Social History Household Members significant other Living Arrangements House Number of Stairs To Enter/Railing? 1 short step to enter through the garage with no railing. Home Environment Standard Height Toilet,Tub/ Shower Home Equipment Four Wheel Walker,Quad Cane, Bedside Commode,Shower Seat with Backrest,Hand Held Shower ,Grab Bars In Shower Additional Social History Comment Pt lives with her partner, Pablo, who works multimedia teacher at [employer] (4 10-hour days). While he is gone , she is home alone though she notes her neighbor, Altaf, and Pablo's sister check in on her occasionally. She also has caregiver assist ~2.5 hours per day, three days per week. M2 PT-IP Current Condition Start: 12/27/19 08:38 Freq: NEEDED Status: Active Protocol: Document 12/27/19 10:00 AW (Rec: 12/27/19 11:58 AW [id number]) Physical Therapy Current Condition Current Condition Evaluation Date 12/27/19 Treatment Diagnosis L femur fracture s/p hemiarthroplasty; difficulty in walking Onset Date 12/26/19 Precautions Posterior Hip Precautions No Hip Flexion > 90 degrees,No Hip Internal Rotation,No Hip Adduction Other Precautions high falls risk; osteoporosis Weight Bearing Status Weight Bearing Status Weight Bear as Tolerated M3 PT-IP Subjective Start: 12/27/19 08:38 Freq: NEEDED Status: Active Protocol: Document 12/27/19 10:00 AW (Rec: 12/27/19 11:58 AW [id number]) Subjective Physical Therapy Visit Type Type Initial Evaluation Visit Start Time 09:13 Visit Stop Time 09:56 Total Visit Minutes 43 Notes Pt's partner, Pablo, present throughout evaluation. He contributed heavily to PLOF information as pt is a difficult historian. Physical Therapy Visit Comments Patient Comments Pt willing to participate with PT Therapy Pain Assessment Pain When Pain Assessed During Mobility Pain Present Pain Present Pain Reported Location left hip Scale Used pain not rated Pain Behaviors Facial Grimacing,Wincing Pain Management Techniques Re-positioning,Timing of Activity with Medications M4 PT-IP Mobility and Gait Start: 12/27/19 08:38 Freq: NEEDED Status: Active Protocol: Document 12/27/19 10:00 AW (Rec: 12/27/19 11:58 AW [id number]) PT-Bed Mobility Assessment Supine to Sit Supine to Sit Minimal Assistance,Bedrails Scooting Scooting to Edge of Bed Moderate Assistance PT-Transfer Assessment Sit to and From Stand Sit to and from Stand Minimal Assistance,1 Person Assistance,Use of Upper Extremities Equipment Transfer Assistive Device Gait Belt,Front Wheeled Walker Orthotic/Prosthetic Devices or Brace: No Transfers Transfer Destination Chair Transfer Technique Stand Step Pivot Transfer Ability Level of Assist Minimal Assistance,1 Person Assistance,Use of Upper Extremities Comments Mobility Comments Pt was sitting up in bed upon PT arrival. With HOB flat, pt was able to complete supine to sit with heavy use of bed rail and therapist min assist to move her operative leg. She scooted toward EOB min assist with PT using draw sheet to pull forward enough to get pt' s feet on the floor. Pt was educated about posterior hip precautions but pt has poor recall, requiring frequent reminders and cues. Pt then stood at EOB with FWW min assist x 1. She was able to bear weight bilaterally and to take small marching steps in place. She then ambulated ~3 feet to the chair with short, shuffling steps. She required cues to set up for transfer to the chair and to reach back with her arms to contact the chair prior to sitting. Pt sat with poor eccentric control requiring min assist. She was positioned on the chair with call light and all needs within reach. Chair alarm was armed for safety. Gait Assessment Gait Gait Assistance Required: Minimum Assistance,1 Person Assist Distance (Feet) 3 Able to Maintain Weight Bearing Status Yes During Gait Assistive Devices Assistive Device Gait Belt,Front Wheeled Walker Orthotic/Prosthetic Devices or Brace: No Gait Deviations General Gait Pattern Antalgic,Decreased Stride Length,Decreased Feet Clearance,Flexed Trunk,Step-to Gait Factors Limiting Gait Function Factors Limiting Gait Function Decreased Activity Tolerance, Decreased Sensation,Decreased Strength,Difficulty Following Directions,Limited Range of Motion,Pain,Poor Balance,Poor Safety Awareness Comments Gait Comments See mobility comments for details. Stair Climbing Assessment Comments Stair Climbing Comments Not assessed PT-Balance Assessment Sitting Balance and Reactions Static Sitting Balance Ability Normal Dynamic Sitting Balance Ability Good Standing Balance and Reactions Static Standing Balance Ability Fair Dynamic Standing Balance Ability Poor Device Used FWW M5 PT-IP Objective Assessments Start: 12/27/19 08:38 Freq: NEEDED Status: Active Protocol: Document 12/27/19 10:00 AW (Rec: 12/27/19 11:58 AW [id number]) Orientation Orientation/Cognition Level of Alertness Confusional State Orientation Name,Situation Safety Awareness Decreased Safety Awareness Memory Description Short Term Impaired,[facility] Impaired Comments Pt is unable to tell this PT where she is or the year. Gross Range of Motion Upper Extremity ROM Assessment Left Impaired Impairments History of left humerus fracture Lower Extremity ROM Assessment Within Functional Limits Strength Lower Extremity Strength Assessment Bilaterally Impaired Hip 3+/5 Knee 4-/5 Ankle 4-/5 Coordination Assessment Gross Coordination Gross Coordination WNL Sensation Assessment Sensation Gross Sensation WNL Muscle Tone Muscle Tone WNL Yes M6 PT-IP Treatment Start: 12/27/19 08:38 Freq: NEEDED Status: Active Protocol: Document 12/27/19 10:00 AW (Rec: 12/27/19 11:58 AW [id number]) Physical Therapy Treatment Exercises Exercises Ankle Pumps,Gluteal Sets,Quad Sets,Heel Slides Education Education Provided Precautions,Weight Bearing Status,Post-Op Packet,Safety Other Treatments Other Treatment Performed Provided eduation on role of PT, plan of care, and safe use of FWW. Spent considerable time reviewing posterior hip precautions with pt unable to retain much for carryover. M7 PT-IP Assessment and Plan Start: 12/27/19 08:38 Freq: NEEDED Status: Active Protocol: Document 12/27/19 10:00 AW (Rec: 12/27/19 11:58 AW [id number]) PT Summary Assessment and Plan Potential Rehabilitation Potential Fair Status of Condition at Evaluation Evolving Summary Impairments Pain,ROM,Strength,Balance, Sensation,Cognition,Bed Mobility,Transfers,Gait, Activity Tolerance Assessment Summary Kristine is a 64 yo woman seen for PT evaluation on POD1 following left hemiarthroplasty for repair of subcapital femur fracture. She is on posterior hip precautions. She has history of CVA and subdural hematoma with cognitive impairments vs dementia and left-sided weakness noted in her chart. She has limited mobility at baseline. She and her partner, Pablo, agree that she walks a maximum of 50 feet without assistive device and that she uses furniture and holly to balance as necessary. Pt has caregiver support ~35 hours per month and her partner works full-time. On evaluation , pt required min assist for all mobility. Due to the nature of her injury, posterior hip precautions, pt' s cognitive status, and need for increased assist with mobility, she will require SNF rehab to increase her functional strength and indepenence before return to home with eventual resumption of home health services. Goals Bed Mobility Goal Standby Assistance Transfer Goal Standby Assistance,Front Wheeled Walker Gait Goal Standby Assistance,Front Wheel Walker Gait Distance 50 Other Goals - up/down one step with FWW SBA Days to Meet Goals 10 Frequency of Treatment Frequency Of Treatment Twice a Day Treatment Plan Physical Therapy Treatment Plan Bed Mobility Training,Transfer Training,Gait Training, Therapeutic Exercise,Balance Retraining,Post Op Education, Discharge Planning,Hot or Cold Pack,Neuromuscular Re-ed Other Recommendations and Next Treatment ther ex; transfers, gait Focus training with FWW Recommendations To Nursing Amount of Assist Needed 1 Person Assist Discharge Recommendations PT Discharge Recommendations SNF Rehab Transportation Needs at Discharge Wheelchair/Cabulance
[2019-12-27] MEDS: POTASSIUM CHLORIDE 20 MEQ TAB 40 MEQ PO ×2 (11:55→16:40)
[2019-12-27] MEDS: OXYCODONE IR 5 MG TABLET PO (12:19)
--- NOTE | 2019-12-27 12:47 | P.PN_ITS ---
Subjective Subjective Date Patient Seen: 12/27/19 Interval history: Kristine Moon is a 64-year-old female is a poor historian with a past medical history significant for hypertension, hyperlipidemia, prior CVA with residual left-sided weakness and subdural hematoma (04/2019) with probable nkoc-im-vksesybh dementia, diabetes mellitus type 2, insulin using, former alcohol dependence reportedly in remission with history of chronic calcific pancreatitis, peptic ulcer disease with prior GI bleed, GERD, Dow's esophagitis, and cholecystectomy complicated by biliary ductal injury with prior stenting and , pneumobilia, and overactive bladder who presented to the ED via EMS after ground level fall with subsequent left hip pain and inability to ambulate. The patient is resting in bedside chair comfortably. She reports her bottom hurts because of the surgery. Her left hip pain is a +6/10 and control with pain medication. She has no other complaints and denies headache, chest pain, shortness of breath, abdominal pain, nausea, vomiting, fever, chills, dysuria, diarrhea or constipation. She is voiding via Anderson catheter. She has not had a bowel movement since admission and a bowel regimen has been implemented. Plan for PT and OT. Exam Vital Signs (past 8 hours): - 12/27/19 07:29 12/27/19 07:40 12/27/19 10:09 Temperature 97.8 F Pulse Rate 86 73 Respiratory Rate 15 Blood Pressure 151/77 H 162/99 H Pulse Oximetry 99 99 12/27/19 10:56 12/27/19 11:35 Temperature 98.5 F Pulse Rate 69 Respiratory Rate 16 Blood Pressure 156/92 H Pulse Oximetry 99 98 Oxygen Delivery Method Room Air Oxygen Flow Rate 0 Narrative Exam Narrative: General: Older thin and frail-appearing female sitting in bedside chair and in no acute distress, appears older than stated age and chronically ill, appropriately interactive HEENT: Normocephalic, atraumatic. External ears without defect. Pupils equal, round, and reactive to light. Anicteric sclerae, moist conjunctivae, and no lid lag. Oropharynx free of erythema and cobble stoning with moist mucosa. Neck: Supple with full range of motion. No jugular venous distension. No lymphadenopathy or thyromegaly. Cardiovascular: Regular rate and rhythm without murmurs, rubs, or gallops appreciated. Pulmonary: Clear to auscultation bilaterally without crackles, wheezes, or rhonchi. Normal respiratory effort with no use of accessory muscles. Abdomen: Soft, bowel sounds present, nontender, nondistended. No hepatosplenomegaly or masses appreciated. Extremities: No clubbing, cyanosis, or edema. Left hip with dressing in place C/D/I without surrounding erythema or edema and distal movement and pulses inta ct. Skin: Normal temperature, turgor, and texture; no rash, ulcers, or subcutaneous nodules appreciated. Neurological: Cranial nerves grossly intact. Psychiatric: Normal mood and affect. Alert and oriented to person and place. Probable tctz-rq-ngihmmlx dementia with short and long-term memory impairment. Objective Labs Result Diagrams: 12/27/19 06:09 12/27/19 06:09 Labs: Laboratory Results - last 24 hr 12/27/19 12/27/19 06:09 06:09 WBC 12.5 H RBC 3.52 L Hgb 10.0 L Hct 30.5 L MCV 86.7 MCH 28.6 MCHC 33.0 RDW 16.5 H Plt Count 160 Neut % (Auto) 76.4 H Lymph % (Auto) 14.2 L [place] % (Auto) 8.8 Eos % (Auto) 0.4 L Baso % (Auto) 0.2 Neut # (Auto) 9500 H Lymph # (Auto) 1800 [place] # (Auto) 1100 H Eos # (Auto) 0 Baso # (Auto) 0 Sodium 136 L Potassium 3.2 L Chloride 107 Carbon Dioxide 25 BUN 27 H Creatinine 1.16 H Estimated GFR 47.2 L BUN/Creatinine Ratio 23.3 H Glucose 155 H D Calcium 8.1 L Magnesium 2.2 Assessment & Plan Assessment & Plan narrative: Kristine Moon is a 64-year-old female is a poor historian with a past medical history significant for hypertension, hyperlipidemia, prior CVA with residual left-sided weakness and subdural hematoma (04/2019) with probable omud-av-wehjhtir dementia, diabetes mellitus type 2, insulin using, former alcohol dependence reportedly in remission with history of chronic calcific pancreatitis, peptic ulcer disease with prior GI bleed, GERD, Dow's esophagi tis, and cholecystectomy complicated by biliary ductal injury with prior stenting and , pneumobilia, and overactive bladder who presented to the ED via EMS after ground level fall with subsequent left hip pain and inability to ambulate. 1. Acute pathological left hip fracture, status post left hip hemiarthroplasty, present on admission. Active. -Patient presented after ground level fall with left hip pain and inability to ambulate. -Left hip x-ray demonstrated impacted subcapital left femoral neck fracture. -Continue vitamin D3 and calcium supplementation. Patient will need be treated for osteoporosis as an outpatient by her PCP or orthopedic surgery. -Orthopedic surgery consulted, Dr. Lopez, who performed left hip hemiarthroplasty. Continue postoperative management, pain control and DVT prophylaxis per Orthopedic surgery. -Ordered physical and occupational therapy evaluation treatment, pending. Continue posterior hip precautions. 2. Acute blood loss anemia on anemia of chronic disease, present on admission. Active. -Initial hemoglobin 11.6 which is baseline. Hemoglobin trended down now 10.0 likely due to hemodilution and acute blood loss from left hemiarthroplasty. No overt signs of bleeding. Transfusion goal < 8.0 due to cardiovascular disease. -Continue to monitor CBC daily. 3. Hypertension, chronic, present on admission. Stable. -Continue home hydralazine 20 mg twice daily, lisinopril 30 mg daily, propanolol 20 mg daily and spironolactone 25 mg daily. 4. Diabetes mellitus type 2, insulin using, chronic, present on admission. Stable. -Hemoglobin A1c 10.4% indicative of poor glycemic control. -Continue [facility] blood glucose checks and low-dose correctional scale insulin. -Continue home Lantus 11 units daily. -Continue heart healthy/carbohydrate consistent diet. 5. Hyperlipidemia and history of CVA with residual left-sided weakness and subdural hematoma with probable dementia, chronic, present on admission. Stable. -Continue home aspirin 81 mg increased to twice daily by orthopedic surgery for VTE prophylaxis (decrease back to once daily in 6 weeks or at discretion of orthopedic surgery) and atorvastatin 40 mg daily at bedtime. -Continue home mirtazapine 15 mg daily at bedtime (unclear what patient takes for depression versus insomnia versus headaches). -Continue to reorient frequently and limit [employer]IOR AUT[employer]ATION [employer] active medications as much as possible. -Ordered occupational therapy to evaluate cognition with SLUMS, pending. Previously speech therapy evaluated patient with MOCA in 2018 which the patient scored a +17/30. 6. GERD with history of Dow's esophagitis and peptic ulcer disease with previous GI bleed, chronic, present on admission. Stable. -Continue home Protonix 40 mg increased from once to twice daily for GI prophylaxis in setting of aspirin 81 mg twice daily for VTE prophylaxis as above. Continue home Carafate 1 g 4 times daily. 7. Overactive bladder, chronic, present on admission. Stable. -Continue oxybutynin 5 mg daily at bedtime. 8. Underweight with probable protein calorie malnutrition, chronic, present on admission. Stable. -BMI 19.1. -Consulted dietitian, pending. We appreciate her time and recommendations. Code status: Full code, patient designates her significant other Pablo Dowd as heard surrogate decision maker VTE prophylaxis: ASA, SCDs Disposition:
--- NOTE | 2019-12-27 13:32 | PT.IPTN ---
Surgery Performed Operation Date: 12/26/19 14:00 Actual Procedures p Hip Hemiarthroplasty(Left) - Enrique Lopez MD Physical Therapy Treatment Note M2 PT-IP Current Condition Start: 12/27/19 08:38 Freq: NEEDED Status: Active Protocol: Document 12/27/19 10:00 AW (Rec: 12/27/19 11:58 AW [id number]) Physical Therapy Current Condition Current Condition Evaluation Date 12/27/19 Treatment Diagnosis L femur fracture s/p hemiarthroplasty; difficulty in walking Onset Date 12/26/19 Precautions Posterior Hip Precautions No Hip Flexion > 90 degrees,No Hip Internal Rotation,No Hip Adduction Other Precautions high falls risk; osteoporosis Weight Bearing Status Weight Bearing Status Weight Bear as Tolerated M3 PT-IP Subjective Start: 12/27/19 08:38 Freq: NEEDED Status: Active Protocol: Document 12/27/19 13:10 CLB (Rec: 12/27/19 15:28 CLB [id number]) Subjective Physical Therapy Visit Type Type Treatment Note Visit Start Time 13:10 Visit Stop Time 13:32 Total Visit Minutes 22 Notes In room extended time as pt was emotional and discussing her disappointment about losing the gains she had made physically before her fall. Physical Therapy Visit Comments Patient Comments Pt had just returned to bed and respectfully refused ambulation but was agreeable to therapeutic exercises in bed. Therapy Pain Assessment Pain When Pain Assessed At Rest Pain Present Pain Present Pain Reported Location left hip Scale Used pain not rated M4 PT-IP Mobility and Gait Start: 12/27/19 08:38 Freq: NEEDED Status: Active Protocol: Document 12/27/19 13:10 CLB (Rec: 12/27/19 15:28 CLB [id number]) PT-Transfer Assessment Comments Mobility Comments Pt refused to get up OOB. Pt performed therapeutic exercises in bed. Pt left in bed with bed alarm on, call light and all other needs within reach, SCD's on. Gait Assessment Comments Gait Comments pt refused. Stair Climbing Assessment Comments Stair Climbing Comments Not assessed M5 PT-IP Objective Assessments Start: 12/27/19 08:38 Freq: NEEDED Status: Active Protocol: Document 12/27/19 10:00 AW (Rec: 12/27/19 11:58 AW [id number]) Orientation Orientation/Cognition Level of Alertness Confusional State Orientation Name,Situation Safety Awareness Decreased Safety Awareness Memory Description Short Term Impaired,[facility] Impaired Comments Pt is unable to tell this PT where she is or the year. Gross Range of Motion Upper Extremity ROM Assessment Left Impaired Impairments History of left humerus fracture Lower Extremity ROM Assessment Within Functional Limits Strength Lower Extremity Strength Assessment Bilaterally Impaired Hip 3+/5 Knee 4-/5 Ankle 4-/5 Coordination Assessment Gross Coordination Gross Coordination WNL Sensation Assessment Sensation Gross Sensation WNL Muscle Tone Muscle Tone WNL Yes M6 PT-IP Treatment Start: 12/27/19 08:38 Freq: NEEDED Status: Active Protocol: Document 12/27/19 13:10 CLB (Rec: 12/27/19 15:28 CLB [id number]) Physical Therapy Treatment Exercises Exercises Ankle Pumps,Gluteal Sets,Quad Sets,Heel Slides,Supine Hip Abduction Education Education Provided Precautions,Weight Bearing Status,Post-Op Packet,Safety Other Treatments Other Treatment Performed Educated pt on posterior hip precautions. M7 PT-IP Assessment and Plan Start: 12/27/19 08:38 Freq: NEEDED Status: Active Protocol: Document 12/27/19 13:10 CLB (Rec: 12/27/19 15:28 CLB [id number]) PT Summary Assessment and Plan Potential Rehabilitation Potential Fair Status of Condition at Evaluation Evolving Summary Impairments Pain,ROM,Strength,Balance, Sensation,Cognition,Bed Mobility,Transfers,Gait, Activity Tolerance Assessment Summary Pt required extra time for education of posterior hip precautions, pt able to perform posterior hip therapeutic exercises with cues for muscle activation and AAROM for hip abduction. Pt is very talkative and gets emotional about feeling she has lost all the gains she made before her fall. Goals Bed Mobility Goal Standby Assistance Transfer Goal Standby Assistance,Front Wheeled Walker Gait Goal Standby Assistance,Front Wheel Walker Gait Distance 50 Other Goals - up/down one step with FWW SBA Days to Meet Goals 10 Frequency of Treatment Frequency Of Treatment Twice a Day Treatment Plan Physical Therapy Treatment Plan Bed Mobility Training,Transfer Training,Gait Training, Therapeutic Exercise,Balance Retraining,Post Op Education, Discharge Planning,Hot or Cold Pack,Neuromuscular Re-ed Other Recommendations and Next Treatment ther ex; transfers, gait Focus training with FWW Recommendations To Nursing Amount of Assist Needed 1 Person Assist Discharge Recommendations PT Discharge Recommendations SNF Rehab Transportation Needs at Discharge Wheelchair/Cabulance
--- NOTE | 2019-12-27 16:16 | PC.NURSE ---
Addendum entered by Faiza Liu R.N. 12/27/19 21:00: Pt resting at intervals. Denies discomfort when asked. HS CBG = 118, no coverage required, Recieved 11u lantus as usual HS dose. Dsg remains CDI. Stable post op course. Call light w/in reach, bed alarm on for pt safety. Continue w/plan of care. Original Note: Pt watching TV. Denies discomfort @ this time. Pt alert/forgetful. thinking she is at home. Reorients easily. HL LAC intact/patent. Dsh to left hip CDI Anderson cath patent emi urine. Stable post op course. Call light w/in reach, bed alarm on for pt safety.
[2019-12-27] MEDS: polyethylene glycoL 3350 17 GM POWD.PACK PO (18:52)
[2019-12-27] MEDS: ATORVASTATIN 20 MG TABLET 40 MG PO (20:17)
[2019-12-27] MEDS: MIRTAZAPINE 15 MG TABLET PO (20:18)
[2019-12-27] MEDS: OXYBUTYNIN 5 MG TABLET PO (21:06)
[2019-12-28] VITALS (15 sets, daily range): BP systolic 145–201; BP diastolic 76–102; PULSE 63–76; RESP 14–19; TEMP 36.1–37.3; O2SAT 96–100
--- NOTE | 2019-12-28 02:36 | PC.NURSE ---
INTERNAL CONTROL SPECIALIST noted that pt. was diaphoretic, checked her CBG only 28. Pt. was wide awake given snacks 1/2 egg sandwich, apple & cranberry juice, milk & yogurt. Pt. also pulled out her IV access. GARY Resendiz notified ordered to leave IV access out, states she's going to transfer to SNF today'. Also ordered to report to her the second recheck of her CBG. Will cont. POC & monitor.
--- NOTE | 2019-12-28 03:13 | PC.NURSE ---
GARY Resendiz notified with the second CBG of 57. Pt. requested chocolate Ensure, will recheck her CBG again & monitor.
[2019-12-28 06:56] LABS: Add Manual Diff / Slide Review NO; Basophils Absolute Auto 100 /uL (0-100); Basophils Percent Auto 0.7 % (0-2); Eosinophils Absolute Auto 0 /uL (0-450); Eosinophils Percent Auto 0.1 % (2-4); Hematocrit 35.7 % (36-46); Hemoglobin 11.5 g/dL (12.0-16.0); Lymphocytes Absolute Auto 800 /uL (1100-4500); Lymphocytes Percent Auto 6.5 % (25-40); Mean Corpuscular HGB Conc 32.2 % (30-36); Mean Corpuscular Hemoglobin 27.8 PG (26-34); Mean Corpuscular Volume 86.4 fL (80-100); Monocytes Absolute Auto 900 /uL (0-900); Monocytes Percent Auto 7.1 % (3-14); Neutrophils Absolute Auto 11100 /uL (1500-7000); Neutrophils Percent Auto 85.6 % (50-75); Platelet Count 112 X10^3/uL (150-400); Red Blood Cell Count 4.13 X10^6/uL (4.0-5.2); Red Cell Distribution Width 16.5 % (11.6-14.8)
[2019-12-28 07:08] LABS: Alanine Aminotransferase 19 IU/L (<35); Albumin Globulin Ratio 0.9 (1.0-2.8); Alkaline Phosphatase 110 U/L (38-126); Aspartate Aminotransferase 32 IU/L (14-36); BUN Creatinine Ratio 25.2 (6-22); Bilirubin Total 0.8 mg/dL (0.2-1.3); Blood Urea Nitrogen 29 mg/dL (7-17); Calcium 8.7 mg/dL (8.4-10.2); Carbon Dioxide 24 mmol/L (22-32); Chloride 105 mmol/L (98-107); Estimated Glomerular Filt Rate 47.7 mL/min (>60); Globulin 3.4 g/dL (1.7-4.1); Glucose 260 mg/dL (80-110); HEMOLYSIS 37 (0-50); Magnesium 2.3 mg/dL (1.6-2.3); Sodium 133 mmol/L (137-145); Total Protein 6.4 g/dL (6.3-8.2)
[2019-12-28 07:24] LABS: Potassium 5.1 mmol/L (3.4-5.1)
--- NOTE | 2019-12-28 08:26 | P.PN_ITS ---
Subjective Subjective Date Patient Seen: 12/28/19 Time Patient Seen: 08:26 Interval history: The patient reports that she is comfortable in having minimal pain from her left hip. Exam Vital Signs (past 8 hours): - 12/28/19 04:00 12/28/19 08:00 12/28/19 08:20 Temperature 97.0 F L 97.6 F Pulse Rate 76 66 Respiratory Rate 18 16 Blood Pressure 166/78 H 189/88 H Pulse Oximetry 98 98 96 Oxygen Delivery Method Room Air Oxygen Flow Rate 0 Narrative Exam Narrative: Left hip wound is dressed with no significant drainage on the bandage. [place]roll of the left hip is without pain. Leg length and rotation appear appropriate. Calf is soft. Light touch and motion are intact in the left foot. Objective Labs Result Diagrams: 12/28/19 06:40 12/28/19 06:40 Labs: Laboratory Results - last 24 hr 12/28/19 12/28/19 06:40 06:40 WBC 13.0 H RBC 4.13 Hgb 11.5 L Hct 35.7 L MCV 86.4 MCH 27.8 MCHC 32.2 RDW 16.5 H Plt Count 112 L Neut % (Auto) 85.6 H Lymph % (Auto) 6.5 L [place] % (Auto) 7.1 Eos % (Auto) 0.1 L Baso % (Auto) 0.7 Neut # (Auto) 12097 H Lymph # (Auto) 800 L [place] # (Auto) 900 Eos # (Auto) 0 Baso # (Auto) 100 Sodium 133 L Potassium 5.1 D Chloride 105 Carbon Dioxide 24 BUN 29 H Creatinine 1.15 H Estimated GFR 47.7 L BUN/Creatinine Ratio 25.2 H Glucose 260 H D Calcium 8.7 Magnesium 2.3 Total Bilirubin 0.8 AST 32 ALT 19 Alkaline Phosphatase 110 Total Protein 6.4 Albumin 3.0 L Globulin 3.4 Albumin/Globulin Ratio 0.9 L Assessment & Plan Post-op Postoperative Procedures: Procedures Operation Date: 12/26/19 14:00 Actual Procedures Side Surgeon p Hip Hemiarthroplasty Left Enrique Lopez MD Postoperative day: 2 Postoperative status: doing well and anemia Postoperative status narrative: Patient is stable postoperative day 2 status post left hip hemiarthroplasty for a femoral neck fracture. She has the anticipated post hemorrhagic anemia. Her progress with physical therapy has been slow. She was minimally ambulatory and had extensive physical therapy in order to be safe at home prior to surgery. Patient also has brittle diabetes mellitus. Postoperative plan: routine post-op care and ambulate Postoperative plan narrative: Continue physical therapy. She is not a safe candidate for discharge to home and will require care home facility care for rehab. She will be eligible for transfer tomorrow. She is under the care of the hospitalist service for her diabetes. Time Spent With Patient Time with patient: less than 15 minutes
[2019-12-28] MEDS: INSULIN ASPART 100 UNIT/ML INSULN PEN SUBCUT ×3 (09:22→16:58)
[2019-12-28] MEDS: PROPRANOLOL 10 MG TABLET 20 MG PO (09:23)
[2019-12-28] MEDS: SUCRALFATE 1 GM TABLET PO ×4 (09:23→20:29)
[2019-12-28] MEDS: DOCUSATE 100 MG CAPSULE PO ×2 (09:23→20:33)
[2019-12-28] MEDS: CYANOCOBALAMIN (VITAMIN B-12) 500 MCG TABLET 1000 MCG PO (09:35)
[2019-12-28] MEDS: lisinopriL 10 MG TABLET 30 MG PO (09:35)
[2019-12-28] MEDS: ASPIRIN EC 81 MG TABLET PO ×2 (09:35→20:32)
[2019-12-28] MEDS: polyethylene glycoL 3350 17 GM POWD.PACK PO (09:35)
[2019-12-28] MEDS: CHOLECALCIFEROL (VITAMIN D3) 1,000 UNIT TABLET 3000 UNIT PO (09:35)
[2019-12-28] MEDS: ACETAMINOPHEN 325 MG TABLET 650 MG PO ×3 (09:36→20:32)
[2019-12-28] MEDS: INSULIN GLARGINE 100 UNIT/ML 3ML PEN 11 UNIT SUBCUT (09:36)
[2019-12-28] MEDS: SPIRONOLACTONE 25 MG TABLET PO (09:36)
[2019-12-28] MEDS: PANTOPRAZOLE 40 MG TABLET PO ×2 (09:36→20:32)
[2019-12-28] MEDS: HYDRALAZINE 10 MG TABLET 20 MG PO ×2 (09:37→20:28)
[2019-12-28] MEDS: OXYCODONE IR 5 MG TABLET PO ×3 (10:14→23:19)
--- NOTE | 2019-12-28 11:19 | OT.IP.EVAL ---
Current Diagnoses Age-related osteoporosis with current pathological fracture, left femur, initial encounter for fracture (12/26/19) Surgery Performed Operation Date: 12/26/19 14:00 Actual Procedures p Hip Hemiarthroplasty(Left) - Enrique Lopez MD Past Medical History (Last Updated 12/26/19 @ 15:38 by Sivan Gauthier DO) Dow's esophagus with esophagitis (Acute) CVA (cerebral vascular accident) (Acute) Dementia (Acute) Diabetes (Acute) Gallbladder disease (Chronic) GERD (gastroesophageal reflux disease) (Acute) Hyperlipidemia (Acute) Hypertension (Acute) Overactive bladder (Acute) Subdural hematoma (Acute) Upper GI bleed (Acute) Surgical History (Last Reviewed 12/26/19 @ 15:33 by Sivan Gauthier DO) History of cholecystectomy (Acute) Tubal ligation status (Acute) Occupational Therapy Inpatient Evaluation/Re-Eval M1 PT/OT-IP Prior Functional Status Start: 12/27/19 08:38 Freq: NEEDED Status: Active Protocol: Document 12/28/19 15:36 CGR (Rec: 12/28/19 15:50 CGR [email or web address]) Medical Review Prior Functional Status Medical History Reviewed Yes Communication Pt had a CVA in 2018 and subdural hematoma in 2019. She has residual memory deficits vs dementia. Thought and speech content are tangential at baseline. Speech is intelligible. Mobility and Gait Pt and her significant other, Pablo, report the patient is very limited in her mobility. She spends most of her time in the bed. Her bathroom is located <10 feet from the bed. She has residual left-sided weakness from her stroke. When she walks, she typically does not use an assistive device. Instead, she depends on furniture or holly for support as needed. Activities of Daily Living and IADL's Pt claims she is independent to modified independent with ADL's. She uses a shower chair for showers. Pt's partner, Pablo, states he assists with showers, drives her to appointments, and helps with meals. Prior Functional Level (Other details) Pt has caregiver support ( [place]yman) on M, W, Th for ~2.5 hours each day. Pt's partner, Pablo, also states that there is a PT who comes to the house but they are unable to provide agency name. All information obtained from P.T. note and confirmed with pt and pt's significant other. Social History Household Members significant other Living Arrangements House Number of Floors (Floors) One Floor Number of Stairs To Enter/Railing? 1 step to enter Home Environment Standard Height Toilet,Tub/ Shower Doors Home Equipment Four Wheel Walker,Straight Cane,Bedside Commode,Shower Seat with Backrest,Hand Held Shower,Grab Bars In Shower Employment Status Retired Additional Social History Comment Pt states that she typically stays in bed for most of the day but is able to get up and down to the toilet as needed. M2 OT-IP Current Condition Start: 12/28/19 15:32 Freq: Status: Active Protocol: Document 12/28/19 15:36 CGR (Rec: 12/28/19 15:50 CGR [email or web address]) Occupational Therapy Current Condition Current Condition Evaluation Date 12/28/19 Treatment Diagnosis GLF with hip fx s/p sx. Diagnosis Onset Date 12/26/19 Weight Bearing Status Weight Bearing Status Weight Bear as Tolerated M3 OT- IP Subjective and Pain Start: 12/28/19 15:32 Freq: Status: Active Protocol: Document 12/28/19 15:36 CGR (Rec: 12/28/19 15:50 CGR [email or web address]) OT- Subjective Occupational Therapy Visit Type Type Initial Evaluation Visit Start Time 10:08 Visit Stop Time 11:19 Total Visit Minutes 71 Notes Pt's sig other present for most of session except cog assessment. Occupational Therapy Visit Comments Patient Comments I just woke up so my brain isn 't working yet. OT Pain Assessment Pain When Pain Assessed At Rest Pain Present Pain Present Pain Reported Location left hip Scale Used did not rate Management Techniques Modification of Treatment,Re- positioning,Timing of Activity with Medications M4 OT- IP ADL's Start: 12/28/19 15:32 Freq: Status: Active Protocol: Document 12/28/19 15:36 CGR (Rec: 12/28/19 15:50 CGR [email or web address]) OT [id number] General Evaluation Self-Feeding Ability Independent OT ADL-Grooming General Evaluation Grooming Ability Standby Assistance Areas Needing Assistance Combing/Brushing Hair,Face Washing Comments OT Grooming Comments standing at sink OT ADL-Oral Care General Eval Oral Care Ability Standby Assistance Comments Oral Care Comments standing at sink OT ADL-Dressing General Eval Lower Body Dressing Ability Total Assistance Areas Needing Assistance Socks OT ADL-Toileting General Evaluation Toileting Ability Minimal Assistance Areas Needing Assistance Manage Clothing Devices Toileting Assistive Devices Grab Bars Comments OT Toileting Comments urination and BM seated on toilet. Nursing notified. OT ADL-Bathing Comments OT Bathing Comments Not performed M5 OT- IP IADL's Start: 12/28/19 15:32 Freq: Status: Active Protocol: Document 12/28/19 15:36 CGR (Rec: 12/28/19 15:50 CGR [email or web address]) OT-Instrumental Activities of Daily Living Deficits IADL Deficits Identified Deficits Home Safety Awareness Awareness of Need for Assistance at Home Decreased Awareness Ability to Problem Solve Emergency Unable to Problem Solve Situations Medication Management Medication Management Caregiver Administers Money Management Money Management Caregiver Provides Assistance Meal Preparation Meal Preparation Caregiver Provides Assist Head Trimmer Head Trimmer Caregiver Provides Assist Driving Driving Comments Pt does not drive M6 OT- IP Functional Cognition Start: 12/28/19 15:32 Freq: Status: Active Protocol: Document 12/28/19 15:36 CGR (Rec: 12/28/19 15:50 CGR [email or web address]) Cognitive Factors Limiting Selfcare Function Cognitive Ability Level of Alertness Alert Patient Orientation Name,Age,Birthday,Year,Day of Week,Place,Situation Attention Span Ability Capable of Focused Attention Ability to Follow Commands Able to Follow One Step Commands with Increased Time, Able to Follow One Step Commands with Repetition Memory Description Immediate Impaired,Short Term Impaired,Working Impaired Safety Awareness No Deficits Noted,Decreased Recall of Precautions, Decreased Ability to Apply Precautions,Underestimates Need for Assistance Problem Solving Ability Unable to Identify Errors, Needs Assist to Identify Solutions Cognitive Tests MOCA MOCA performed for easy comparison to previous score of 20/30 ~2 years ago. On this date pt scored a 10/30 achievign a full score only on abstraction. OT- Vision and Hearing OT- Hearing Assessment OT- Hearing Assessment WFL OT- Vision Assessment Visual Acuity Glasses For Reading Visual Attentiveness WFL Occular Pursuits WFL M7 OT- IP Mobility and Balance Start: 12/28/19 15:32 Freq: Status: Active Protocol: Document 12/28/19 15:36 CGR (Rec: 12/28/19 15:50 CGR [email or web address]) OT- Bed Mobility Assessment Supine to Sit Supine to Sit Assist Maximum Assistance,Bedrails Scooting Scooting to Edge of Bed Moderate Assistance OT-Transfer Assessment Sit to and From Stand Sit to and from Stand Minimal Assistance Transfers Transfer Ability Minimal Assistance Technique Transfer Destination Bed,Chair,Toilet Transfer Technique Stand Step Pivot Devices Transfer Assistive Devices Gait Belt,Front Wheeled Walker Comments Mobility Comments Pt mobilized around the room with min a but needed more assist for bed mobility. OT- Balance Assessment Sitting Balance and Reactions Static Sitting Balance Ability Good Dynamic Sitting Balance Ability Fair M8 OT- IP Objective Assessments Start: 12/28/19 15:32 Freq: Status: Active Protocol: Document 12/28/19 15:36 CGR (Rec: 12/28/19 15:50 CGR [email or web address]) OT Gross Range of Motion Upper Extremity Range of Motion Assessment Within Functional Limits OT Strength Upper Extremity Strength Assessment Within Functional Limits OT- Coordination Assessment Upper Extremity Finger to Nose Test Within Functional Limits Finger Tapping Test Within Functional Limits OT-Muscle Tone Assessment Muscle Tone WNL Yes OT Sensation Assessment Edema Edema Absent M9 OT- IP Assessment and Plan Start: 12/28/19 15:32 Freq: Status: Active Protocol: Document 12/28/19 15:36 CGR (Rec: 12/28/19 15:50 CGR [email or web address]) OT Summary Assessment and Plan Potential Rehabilitation Potential Good Analytic Complexity at Evaluation Moderate Summary OT Impairments Pain,Balance,Functional Cognition,Functional Mobility, Dressing,Toileting,Bathing, Toilet Transfers,Shower Transfers,Activity Tolerance Progress Towards Goals Slow Progress due to Pain,Slow Progress due to Cognition Assessment Summary Pt presents as a mod complexity evaluation s/p fall and hip fx requiring sx. Pt is progressing with activity but will benefit from further OT services. Pt would benefit from SNF upon discharge. Updated MOCA performed on this date with score of 10/30. Goals Grooming Goal Independent Dressing Goal Independent Toileting Goal Independent Bathing Goal Independent Toilet Transfer Goal Independent Shower Transfer Goal Independent Days to Meet Goals 10 Frequency of Treatment Frequency Of Treatment Once a Day Treatment Plan OT Treatment Plan ADL Training,Functional Cognition Training,Functional Mobility,Patient/Family Education,Discharge Planning Other Treatment Recommendations and Next LB dressing and shower Treatment Focus Discharge Recommendations OT Discharge Recommendations SNF Rehab Home Equipment Needs TBD Transportation Needs at Discharge Private Vehicle
[2019-12-28] MEDS: LABETALOL 20 MG/4 ML SYRINGE 10 MG IV ×2 (11:59→14:47)
--- NOTE | 2019-12-28 11:59 | PT.IPTN ---
Current Diagnoses Age-related osteoporosis with current pathological fracture, left femur, initial encounter for fracture (12/26/19) Surgery Performed Operation Date: 12/26/19 14:00 Actual Procedures p Hip Hemiarthroplasty(Left) - Enrique Lopez MD Physical Therapy Treatment Note M2 PT-IP Current Condition Start: 12/27/19 08:38 Freq: NEEDED Status: Active Protocol: Document 12/27/19 10:00 AW (Rec: 12/27/19 11:58 AW [id number]) Physical Therapy Current Condition Current Condition Evaluation Date 12/27/19 Treatment Diagnosis L femur fracture s/p hemiarthroplasty; difficulty in walking Onset Date 12/26/19 Precautions Posterior Hip Precautions No Hip Flexion > 90 degrees,No Hip Internal Rotation,No Hip Adduction Other Precautions high falls risk; osteoporosis Weight Bearing Status Weight Bearing Status Weight Bear as Tolerated M3 PT-IP Subjective Start: 12/27/19 08:38 Freq: NEEDED Status: Active Protocol: Document 12/28/19 11:42 CLB (Rec: 12/28/19 12:23 CLB [id number]) Subjective Physical Therapy Visit Type Type Treatment Note Visit Start Time 11:42 Visit Stop Time 11:59 Total Visit Minutes 17 Number of DIRECTOR SECURITY MANAGEMENT Visits 2 Physical Therapy Visit Comments Patient Comments After encouragement pt agreeable to work with therapy . Therapy Pain Assessment Pain When Pain Assessed At Rest Pain Present Pain Present Pain Reported Location left hip Scale Used pain not rated Pain Behaviors Facial Grimacing,Wincing Pain Management Techniques Re-positioning,Timing of Activity with Medications M4 PT-IP Mobility and Gait Start: 12/27/19 08:38 Freq: NEEDED Status: Active Protocol: Document 12/28/19 11:42 CLB (Rec: 12/28/19 12:23 CLB [id number]) PT-Transfer Assessment Sit to and From Stand Sit to and from Stand Minimal Assistance,1 Person Assistance,Use of Upper Extremities Equipment Transfer Assistive Device Gait Belt,Front Wheeled Walker Orthotic/Prosthetic Devices or Brace: No Transfers Transfer Destination Chair Transfer Ability Level of Assist Minimal Assistance,1 Person Assistance,Use of Upper Extremities Comments Mobility Comments Pt in chair upon arrival, SO Pablo present, with encouragement from Pablo pt agreed to participate with therapy.Pt unable to recall any of the three posterior hip precautions. CARY Pichardo requested BP during tx due to hypertension. BP in sitting 188/99, BP in standing 193/100 , due to BP pt returned to seated position RN informed. BP in sitting after sit<>stand 162/97. Pt required Min A for sit<>stand and max cues for pushing up from arms of chair and reaching back for arms of chair for controlled descent. Pt was left in chair upright with lunch on table, call light within reach and chair alarm on. RN informed of all BP readings. Gait Assessment Comments Gait Comments unable due to BP Stair Climbing Assessment Comments Stair Climbing Comments Not assessed M5 PT-IP Objective Assessments Start: 12/27/19 08:38 Freq: NEEDED Status: Active Protocol: Document 12/27/19 10:00 AW (Rec: 12/27/19 11:58 AW [id number]) Orientation Orientation/Cognition Level of Alertness Confusional State Orientation Name,Situation Safety Awareness Decreased Safety Awareness Memory Description Short Term Impaired,Merchandising Assistant Impaired Comments Pt is unable to tell this PT where she is or the year. Gross Range of Motion Upper Extremity ROM Assessment Left Impaired Impairments History of left humerus fracture Lower Extremity ROM Assessment Within Functional Limits Strength Lower Extremity Strength Assessment Bilaterally Impaired Hip 3+/5 Knee 4-/5 Ankle 4-/5 Coordination Assessment Gross Coordination Gross Coordination WNL Sensation Assessment Sensation Gross Sensation WNL Muscle Tone Muscle Tone WNL Yes M6 PT-IP Treatment Start: 12/27/19 08:38 Freq: NEEDED Status: Active Protocol: Document 12/27/19 13:10 CLB (Rec: 12/27/19 15:28 CLB [id number]) Physical Therapy Treatment Exercises Exercises Ankle Pumps,Gluteal Sets,Quad Sets,Heel Slides,Supine Hip Abduction Education Education Provided Precautions,Weight Bearing Status,Post-Op Packet,Safety Other Treatments Other Treatment Performed Educated pt on posterior hip precautions. M7 PT-IP Assessment and Plan Start: 12/27/19 08:38 Freq: NEEDED Status: Active Protocol: Document 12/28/19 11:42 CLB (Rec: 12/28/19 12:23 CLB [id number]) PT Summary Assessment and Plan Potential Rehabilitation Potential Fair Status of Condition at Evaluation Evolving Summary Impairments Pain,ROM,Strength,Balance, Sensation,Cognition,Bed Mobility,Transfers,Gait, Activity Tolerance Goals Bed Mobility Goal Standby Assistance Transfer Goal Standby Assistance,Front Wheeled Walker Gait Goal Standby Assistance,Front Wheel Walker Gait Distance 50 Other Goals - up/down one step with FWW SBA Days to Meet Goals 10 Frequency of Treatment Frequency Of Treatment Twice a Day Treatment Plan Physical Therapy Treatment Plan Bed Mobility Training,Transfer Training,Gait Training, Therapeutic Exercise,Balance Retraining,Post Op Education, Discharge Planning,Hot or Cold Pack,Neuromuscular Re-ed Other Recommendations and Next Treatment monitor BP, ther ex; transfers Focus , gait training with FWW Recommendations To Nursing Amount of Assist Needed 1 Person Assist Discharge Recommendations PT Discharge Recommendations SNF Rehab Transportation Needs at Discharge Wheelchair/Cabulance
--- NOTE | 2019-12-28 13:12 | CM.DANOTE ---
Addendum entered by THALIA Oscar 12/28/19 15:56: ADD: SW contacted evening RN and updated that new COVID needed for d/c tomorrow to SNF as it expires at 1000 tomorrow and likely will not be discharged in time. Evening RN kindly will plan to get new COVID tonight. BF Original Note: Patient is a 64 yo female who was admitted on 12/26/19 for GLF. Pt has [facility] and [facility] for insurance and her PCP is Dr. Jyoti Streeter. EMR was reviewed. Per Ortho Consult, pt in need of L Hip Hemiarthroplasty. Per PT, recommending d/c to SNF prior to home. SW met bedside with pt and sig other Pablo during MD rounding and they confirm that they live at home and Pablo provides a good amount of assist with ADL's although pt ambulates with the use of furniture surfing and has begun showing signs of increased memory issues. Pt has hx of [facility] previously and [facility] and currently has assist of Sig Other Pablo and a caregiver who comes in about 3x a week for about 2 hours to help assist. Pt and Sig Other agreeable with SNF at d/c and preference is [facility] from SNF Choice List. SW called [facility] admissions with new referral and they reviewed and can accept pt when stable for d/c, likely tomorrow if pt remains stable overnight. PASRR completed in anticipation of SNF tomorrow. OT ordered to complete another SLUMS/MOKA as last one was around 2018 and score was 17/30. Pt pleasant but forgetful and easily redirectable. Plan: SW to follow for likely d/c to [facility] tomorrow if remains medically stable. THALIA Oscar Discharge Planning/Care Management CM Discharge Assessment Start: 12/28/19 13:09 Freq: Status: Active Protocol: Document 12/28/19 13:10 BF (Rec: 12/28/19 13:12 [id number]) Discharge Planning Assessment Assigned Grain Broker THALIA Altamirano Advance Directives? Yes: DPOA, CPR RESUSCITATION Advance Directives on File Yes History Provided By Patient,Family Member,Medical Record Has Patient been admitted in last 30 No days? Prior Living Arrangements House Household Members significant other Type of transporation used prior to Relies on Others admit Comment May still drive at times? Independent with ADL's No: SO provides assist Is patient alert and oriented? No: dementia, memory issues Needs Assistance With Meal Prep,Managing Medications ,Home Chores / Shopping Caregiver for Another No Patient/Family Preference Senior Care Facility Barriers to Discharge No Discharge Plan Senior Care Facility Transportation Arrangement SNF w/c van Referrals Initiated Senior Care If patient plan is SNF: Has PASSR been Yes completed? Medicare Choice List Provided Yes SNF/HH Preference [facility] Has Agency SNF been contacted Yes Review Status In Process Please Provide Date Initial DC 12/28/19 Assessment Was Performed Next Review Type Continued Stay Review
--- NOTE | 2019-12-28 14:39 | PM.PN.1 ---
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 The patient is resting in bed comfortably. 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 She continues to have left hip pain controlled with pain medication. She has no other complaints and denies headache, chest pain, shortness of breath, abdominal pain, nausea, vomiting, fever, chills, dysuria, diarrhea or constipation. She is voiding via Anderson catheter and eliminating without difficulty. Continue PT and OT. Exam Vital Signs (past 8 hours): - 12/28/19 08:00 12/28/19 08:20 12/28/19 10:56 Temperature 97.6 F Pulse Rate 66 71 Respiratory Rate 16 Blood Pressure 189/88 H 201/102 H Pulse Oximetry 98 96 12/28/19 12:00 12/28/19 12:10 Temperature 98.7 F Pulse Rate 75 Respiratory Rate 17 Blood Pressure 188/99 H Pulse Oximetry 97 97 Oxygen Delivery Method Room Air Oxygen Flow Rate 0 Narrative Exam Narrative: General: Older thin and frail-appearing female sitting in bedside chair and in no acute distress, appears older than stated age and chronically ill, pale, appropriately interactive. HEENT: Normocephalic, atraumatic. External ears without defect. Pupils equal, round, and reactive to light. Anicteric sclerae, moist conjunctivae, and no lid lag. Oropharynx free of erythema and cobble stoning with moist mucosa. Neck: Supple with full range of motion. No lymphadenopathy or thyromegaly. Cardiovascular: Regular rate and rhythm without murmurs, rubs, or gallops appreciated. Pulmonary: Clear to auscultation bilaterally without crackles, wheezes, or rhonchi. Normal respiratory effort with no use of accessory muscles. Abdomen: Soft, bowel sounds present, nontender, nondistended. No hepatosplenomegaly or masses appreciated. Extremities: No clubbing, cyanosis, or edema. Left hip with dressing in place C/D/I without surrounding erythema or edema and distal movement and pulses intact. Skin: Normal temperature, turgor, and texture; no rash, ulcers, or subcutaneous nodules appreciated. Neurological: Cranial nerves grossly intact. Psychiatric: Normal mood and affect. Alert and oriented to person and place. Moderate dementia with short and long-term memory impairment. Objective Labs Result Diagrams: 12/28/19 06:40 12/28/19 06:40 Labs: Laboratory Results - last 24 hr 12/28/19 12/28/19 06:40 06:40 WBC 13.0 H RBC 4.13 Hgb 11.5 L Hct 35.7 L MCV 86.4 MCH 27.8 MCHC 32.2 RDW 16.5 H Plt Count 112 L Neut % (Auto) 85.6 H Lymph % (Auto) 6.5 L Fergus % (Auto) 7.1 Eos % (Auto) 0.1 L Baso % (Auto) 0.7 Neut # (Auto) 81501 H Lymph # (Auto) 800 L Fergus # (Auto) 900 Eos # (Auto) 0 Baso # (Auto) 100 Sodium 133 L Potassium 5.1 D Chloride 105 Carbon Dioxide 24 BUN 29 H Creatinine 1.15 H Estimated GFR 47.7 L BUN/Creatinine Ratio 25.2 H Glucose 260 H D Calcium 8.7 Magnesium 2.3 Total Bilirubin 0.8 AST 32 ALT 19 Alkaline Phosphatase 110 Total Protein 6.4 Albumin 3.0 L Globulin 3.4 Albumin/Globulin Ratio 0.9 L Assessment & Plan Assessment & Plan narrative: Kristine Moon is a 64-year-old female is a poor historian with a past medical history significant for hypertension, hyperlipidemia, 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 1. Acute pathological left hip fracture, status post left hip hemiarthroplasty, present on admission. Active. -Patient presented after ground level fall with left hip pain and inability to ambulate. -Left hip x-ray demonstrated impacted subcapital left femoral neck fracture. -Continue vitamin D3 and calcium supplementation. Patient will need be treated for osteoporosis as an outpatient by her PCP or orthopedic surgery. -Orthopedic surgery consulted, Dr. Lopez, who performed left hip hemiarthroplasty. Continue postoperative management, pain control and DVT prophylaxis per Orthopedic surgery. -Continue physical and occupational therapy evaluation treatment. Continue posterior hip precautions. 2. Acute blood loss anemia on anemia of chronic disease, present on admission. Stable. Secondary to hemodilution from IV fluids and acute blood loss from left hemiarthroplasty. -Initial hemoglobin 11.6 which is baseline. Hemoglobin trended down and now trending back up to 11.5. No overt signs of bleeding. Transfusion goal < 8.0 due to cardiovascular disease. -Continue to monitor CBC daily. 3. Hypertension, chronic, present on admission. Stable. -Continue home hydralazine 20 mg twice daily, lisinopril increased from 30 mg to 40 mg daily for better BP control, propanolol 20 mg daily and spironolactone 25 mg daily. 4. Diabetes mellitus type 2, insulin using, chronic, present on admission. Stable. -Hemoglobin A1c 10.4% indicative of poor glycemic control. -Continue [facility] blood glucose checks and high-dose correctional scale insulin. Patient should likely be on correctional at home but has moderate dementia and spouse works throughout the day with caregiver a couple days a week so environment is not the safest. -Continue home Lantus 11 units daily (NOT twice daily). -Continue heart healthy/carbohydrate consistent diet. 5. ASCVD, hyperlipidemia, with previous CVA with residual left-sided weakness and subdural hematoma with dementia, chronic, present on admission. Stable. -Continue home aspirin 81 mg increased to twice daily by orthopedic surgery for VTE prophylaxis (decrease back to once daily in 6 weeks or at discretion of orthopedic surgery) and atorvastatin 40 mg daily at bedtime. -Continue home mirtazapine 15 mg daily at bedtime (unclear what patient takes for depression versus insomnia versus headaches). -Continue to reorient frequently and limit DEPUTY BAILIFF active medications as much as possible. -Occupational therapy to evaluate cognition with MOCA which is now 10/30 and previously speech therapy evaluated patient with MOCA in 2018 which the patient scored a +17/30 so memory impairment has significantly declined since subdural hematoma in 04/2019. 6. GERD with history of Dow's esophagitis and peptic ulcer disease with previous GI bleed, chronic, present on admission. Stable. -Continue home Protonix 40 mg increased from once to twice daily for GI prophylaxis in setting of aspirin 81 mg twice daily for VTE prophylaxis as above. Continue home Carafate 1 g 4 times daily. 7. Overactive bladder, chronic, present on admission. Stable. -Continue oxybutynin 5 mg daily at bedtime. 8. Underweight with probable protein calorie malnutrition, chronic, present on admission. Stable. -BMI 19.1. -Consulted dietitian and we appreciate her time and recommendations. Code status: Full code, patient designates her significant other Pablo Dowd as heard surrogate decision maker VTE prophylaxis: ASA, SCDs Disposition: Patient will likely discharge to longterm facility for continued rehabilitation tomorrow.
--- NOTE | 2019-12-28 14:59 | DIET.PN ---
Dietary Progress Note Assessment: is a 64-year-old female with a past medical history significant for hypertension, hyperlipidemia, prior CVA with residual left-sided weakness and with probable ksbo-ey-avhdqmop dementia, diabetes mellitus type 2, insulin using, former alcohol dependence, peptic ulcer disease with prior GI bleed, GERD, Dow's esophagitis, and cholecystectomy who presented to the ED after ground level fall with subsequent left hip pain. She is SP day 2 for hip hemiarthroplasty. She is a poor historian and admits she is becoming increasingly forgetful. She was very tearful during out interaction stating everything is going wrong with her health. She states she has been experiencing hypoglycemia lately and she is very scared of related to poor glycemia control. Nearly all evening meals are take out as she no longer does any cooking due to fearfulness of forgetting she is cooking. She will sometimes make a sandwich or eggs during the day, but most evening meals her significant other picks up [employer], pizza, or burgers. HT: 64in WT: 112lb UBW: 120lb BMI: 19.3 Labs: A1c: 10.4 Gluc: 495, 155, 260 MNA: 11 Ty: 18 Nutrition Diagnosis: Altered nutrition related lab values r/t endocrine dysfunction aeb elevated a1c and plasma glucose levels, food- and nutrition-related knowledge deficit, history of alcohol abuse. Underweight r/t inadequate energy intake aeb pt report difficulty with meal preparation, reduced appetite. Interventions: 1. Discussed high calorie/high protein nutrition therapy. Provided handout on high protein/majo food list. 2. Reviewed carb counting and high fiber food sources. Recommended purchasing easy to prepare produce for eating during the day. 3. Discussed easy prep meal options including crockpotting, frozen vegetables, canned protein (chicken/tuna salad sandwiches) 4. ONS glucerna or ensure max BID. Provided coupons. Diet Order: [facility] EER: [id number] majo (30-33cal/kg); 60g Pro (1.2) Monitoring/Evaluations: weight, PO's, ons acceptance, labs.
--- NOTE | 2019-12-28 15:58 | PT.IPTN ---
Current Diagnoses Age-related osteoporosis with current pathological fracture, left femur, initial encounter for fracture (12/26/19) Surgery Performed Operation Date: 12/26/19 14:00 Actual Procedures p Hip Hemiarthroplasty(Left) - Enrique Lopez MD Physical Therapy Treatment Note M2 PT-IP Current Condition Start: 12/27/19 08:38 Freq: NEEDED Status: Active Protocol: Document 12/27/19 10:00 AW (Rec: 12/27/19 11:58 AW [id number]) Physical Therapy Current Condition Current Condition Evaluation Date 12/27/19 Treatment Diagnosis L femur fracture s/p hemiarthroplasty; difficulty in walking Onset Date 12/26/19 Precautions Posterior Hip Precautions No Hip Flexion > 90 degrees,No Hip Internal Rotation,No Hip Adduction Other Precautions high falls risk; osteoporosis Weight Bearing Status Weight Bearing Status Weight Bear as Tolerated M3 PT-IP Subjective Start: 12/27/19 08:38 Freq: NEEDED Status: Active Protocol: Document 12/28/19 15:21 CLB (Rec: 12/28/19 16:32 CLB [id number]) Subjective Physical Therapy Visit Type Type Treatment Note Visit Start Time 15:21 Visit Stop Time 15:58 Total Visit Minutes 37 Number of INDIGO VAT TENDER CLOTH Visits 3 Physical Therapy Visit Comments Patient Comments Pt agreeable to participate with therapy. Therapy Pain Assessment Pain When Pain Assessed During Mobility Pain Present Pain Present Pain Reported Location left hip Intensity 8 Scale Used Numeric (0 - 10) Pain Behaviors Facial Grimacing,Wincing Pain Management Techniques Re-positioning,Timing of Activity with Medications M4 PT-IP Mobility and Gait Start: 12/27/19 08:38 Freq: NEEDED Status: Active Protocol: Document 12/28/19 15:21 CLB (Rec: 12/28/19 16:32 CLB [id number]) PT-Bed Mobility Assessment Supine to Sit Supine to Sit Moderate Assistance,1 Person Assistance Sit to Supine Sit to Supine Moderate Assistance,2 Person Assistance Scooting Scooting to Edge of Bed Moderate Assistance,Maximum Assistance PT-Transfer Assessment Sit to and From Stand Sit to and from Stand Contact Guard Assistance,Use of Upper Extremities Equipment Transfer Assistive Device Gait Belt,Front Wheeled Walker Orthotic/Prosthetic Devices or Brace: No Transfers Transfer Destination Bed Transfer Technique Stand Step Pivot Transfer Ability Level of Assist Minimal Assistance,1 Person Assistance,Use of Upper Extremities Comments Mobility Comments Pt BP in supine 174/68, pt performed HS and AP in supine. Continued education of posterior hip precautions, pt can not recall any of her precautions. Pt required max cuing for sequencing to sit and Max A to come to EOB. Pt BP in sitting 158/95, BP in standing 130/93. Pt able to stand CGA with cues for hand placement for safety. Pt ambulated ~60ft w/FWW/CGA with cues to stay inside walker and making turns to the right. Pt returned to room sitting on EOB CGA, pt required Mod A x2 for sit-supine. Pt BP in supine at end of tx 153/85. Left pt in bed with bed alarm and SCD's on, call light and all needs within reach. Gait Assessment Gait Gait Assistance Required: Contact Guard Assist,1 Person Assist Distance (Feet) 60 Able to Maintain Weight Bearing Status Yes During Gait Assistive Devices Assistive Device Gait Belt,Front Wheeled Walker Orthotic/Prosthetic Devices or Brace: No Gait Deviations General Gait Pattern Antalgic,Decreased Stride Length,Decreased Feet Clearance,Flexed Trunk,Narrow Based Gait,Step-to Gait Factors Limiting Gait Function Factors Limiting Gait Function Decreased Activity Tolerance, Decreased Strength,Difficulty Following Directions,Limited Range of Motion,Pain,Poor Balance,Poor Safety Awareness Comments Gait Comments Pt required CGA for gait with cues to stay inside walker, pt walked with small step through gait pattern then step to with fatigue. Stair Climbing Assessment Comments Stair Climbing Comments Not assessed M5 PT-IP Objective Assessments Start: 12/27/19 08:38 Freq: NEEDED Status: Active Protocol: Document 12/27/19 10:00 AW (Rec: 12/27/19 11:58 AW [id number]) Orientation Orientation/Cognition Level of Alertness Confusional State Orientation Name,Situation Safety Awareness Decreased Safety Awareness Memory Description Short Term Impaired,Fci Impaired Comments Pt is unable to tell this PT where she is or the year. Gross Range of Motion Upper Extremity ROM Assessment Left Impaired Impairments History of left humerus fracture Lower Extremity ROM Assessment Within Functional Limits Strength Lower Extremity Strength Assessment Bilaterally Impaired Hip 3+/5 Knee 4-/5 Ankle 4-/5 Coordination Assessment Gross Coordination Gross Coordination WNL Sensation Assessment Sensation Gross Sensation WNL Muscle Tone Muscle Tone WNL Yes M6 PT-IP Treatment Start: 12/27/19 08:38 Freq: NEEDED Status: Active Protocol: Document 12/28/19 15:21 CLB (Rec: 12/28/19 16:32 CLB [id number]) Physical Therapy Treatment Exercises Exercises Ankle Pumps,Heel Slides Education Education Provided Precautions,Weight Bearing Status,Safety Other Treatments Other Treatment Performed Educated pt on posterior hip precautions. Pt cannot recall precautions. M7 PT-IP Assessment and Plan Start: 12/27/19 08:38 Freq: NEEDED Status: Active Protocol: Document 12/28/19 15:21 CLB (Rec: 12/28/19 16:32 CLB [id number]) PT Summary Assessment and Plan Potential Rehabilitation Potential Fair Status of Condition at Evaluation Evolving Summary Impairments Pain,ROM,Strength,Balance, Sensation,Cognition,Bed Mobility,Transfers,Gait, Activity Tolerance Assessment Summary Pt does not recall hip precautions, pt has increased pain in WB but was able to increase gait distance to ~ 60ft with CGA but continues to require max cues for safety during bed mobility, transfers and gait. Goals Bed Mobility Goal Standby Assistance Transfer Goal Standby Assistance,Front Wheeled Walker Gait Goal Standby Assistance,Front Wheel Walker Gait Distance 50 Other Goals - up/down one step with FWW SBA Days to Meet Goals 10 Frequency of Treatment Frequency Of Treatment Twice a Day Treatment Plan Physical Therapy Treatment Plan Bed Mobility Training,Transfer Training,Gait Training, Therapeutic Exercise,Balance Retraining,Post Op Education, Discharge Planning,Hot or Cold Pack,Neuromuscular Re-ed Other Recommendations and Next Treatment monitor BP, ther ex; transfers Focus , gait training with FWW Recommendations To Nursing Amount of Assist Needed 1 Person Assist Discharge Recommendations PT Discharge Recommendations SNF Rehab Transportation Needs at Discharge Wheelchair/Cabulance
--- NOTE | 2019-12-28 16:18 | PC.NURSE ---
Addendum entered by Faiza Liu R.N. 12/28/19 22:34: Pt had uneventful evening, Resting at intervals. Satifactory post op course. Call light w/in reach, bed alarm on for pt safety Continue w/plan of care. Original Note: Pt amb. in hallway w/PT w/o incidence. Lungs clear/slightly dim @ bases, SpO2 6% RA. Aquacell dsg left hip CDI HL RAC intact/patent. Anderson cath patent clear yellow urine. B/P currently 157/93. Call light w/in reach, bed alarm on for pt safety.
[2019-12-28] MEDS: CALCIUM CARB/VIT D3 500/200 TABLET 1 EACH PO (17:34)
[2019-12-28 18:47] LABS: COVID19 -Nasal RAPID Negative (Negative)
[2019-12-28] MEDS: OXYBUTYNIN 5 MG TABLET PO (20:29)
[2019-12-28] MEDS: ATORVASTATIN 20 MG TABLET 40 MG PO (20:32)
[2019-12-28] MEDS: MIRTAZAPINE 15 MG TABLET PO (20:33)
[2019-12-29 00:20] VITALS: BP 147/67; PULSE 66; RESP 18; TEMP 36.5; O2SAT 100
--- NOTE | 2019-12-29 01:53 | PC.NURSE ---
0043 Patient seen and assessed. Is oriented to self, birthdate, place, month and situation. Is very animated and goes into great detail about everything. Breath sounds CTA with RA sat of 100%. HRR. BP elevated at 147/67 but trends high. Denies nausea. BT present and states she had a BM yesterday. Indwelling catheter is patent; urine is clear yellow. Needs assistance to reposition q2h. Aquacel dressing to left hip is CDI. Had pain medication at shift change and states pain has improved to 5/10 and is currently asleep. Has chronic numbness in left hand. Reports numbness in bilateral feet left > right; pedal pulses are weak. Unable to lift left leg off bed. Adhering to posterior hip precautions. Wearing bilateral calf SCD's. Fall risk score is high and bed alarm is activated.
[2019-12-29 04:27] VITALS: BP 152/87; PULSE 63; RESP 15; TEMP 36.4; O2SAT 99
[2019-12-29] MEDS: OXYCODONE IR 5 MG TABLET PO ×2 (05:17→09:08)
[2019-12-29 06:59] LABS: Add Manual Diff / Slide Review NO; Basophils Absolute Auto 0 /uL (0-100); Basophils Percent Auto 0.3 % (0-2); Eosinophils Absolute Auto 100 /uL (0-450); Eosinophils Percent Auto 1.6 % (2-4); Hematocrit 30.3 % (36-46); Lymphocytes Absolute Auto 1600 /uL (1100-4500); Lymphocytes Percent Auto 18.9 % (25-40); Mean Corpuscular HGB Conc 33.1 % (30-36); Mean Corpuscular Hemoglobin 28.5 PG (26-34); Monocytes Absolute Auto 800 /uL (0-900); Monocytes Percent Auto 9.3 % (3-14); Neutrophils Absolute Auto 6000 /uL (1500-7000); Neutrophils Percent Auto 69.9 % (50-75); Platelet Count 178 X10^3/uL (150-400); Red Blood Cell Count 3.52 X10^6/uL (4.0-5.2); Red Cell Distribution Width 16.3 % (11.6-14.8); White Blood Cell Count 8.5 X10^3/uL (4.5-11.0)
[2019-12-29 07:08] LABS: BUN Creatinine Ratio 24.4 (6-22); Blood Urea Nitrogen 30 mg/dL (7-17); Calcium 8.6 mg/dL (8.4-10.2); Carbon Dioxide 27 mmol/L (22-32); Chloride 104 mmol/L (98-107); Estimated Glomerular Filt Rate 44.1 mL/min (>60); Glucose 209 mg/dL (80-110); HEMOLYSIS 27 (0-50); Potassium 4.3 mmol/L (3.4-5.1); Sodium 132 mmol/L (137-145)
--- NOTE | 2019-12-29 07:52 | P.PN_ITS ---
Subjective Subjective Date Patient Seen: 12/29/19 Time Patient Seen: 07:52 Interval history: The patient continues to be comfortable with her left hip. She has made slow progress with therapy but will require additional rehab before going home. Exam Vital Signs (past 8 hours): - 12/29/19 00:20 12/29/19 04:27 Temperature 97.7 F 97.6 F Pulse Rate 66 63 Respiratory Rate 18 15 Blood Pressure 147/67 H 152/87 H Pulse Oximetry 100 99 Oxygen Delivery Method Room Air Oxygen Flow Rate 0 Narrative Exam Narrative: Left leg length appears appropriate. There is no significant pain with logroll of the hip. Calf is soft. Light touch and motion are intact in the left lower extremity. 2+ dorsalis pedis pulse. Objective Labs Result Diagrams: 12/29/19 06:48 12/29/19 06:48 Labs: Laboratory Results - last 24 hr 12/28/19 12/29/19 12/29/19 17:40 06:48 06:48 WBC 8.5 RBC 3.52 L Hgb 10.0 L Hct 30.3 L MCV 86.0 MCH 28.5 MCHC 33.1 RDW 16.3 H Plt Count 178 Neut % (Auto) 69.9 Lymph % (Auto) 18.9 L Clare % (Auto) 9.3 Eos % (Auto) 1.6 L Baso % (Auto) 0.3 Neut # (Auto) 6000 Lymph # (Auto) 1600 Clare # (Auto) 800 Eos # (Auto) 100 Baso # (Auto) 0 Sodium 132 L Potassium 4.3 Chloride 104 Carbon Dioxide 27 BUN 30 H Creatinine 1.23 H Estimated GFR 44.1 L BUN/Creatinine Ratio 24.4 H Glucose 209 H Calcium 8.6 Magnesium COVID-19 PCR Negative 12/29/19 06:48 WBC RBC Hgb Hct MCV MCH MCHC RDW Plt Count Neut % (Auto) Lymph % (Auto) Clare % (Auto) Eos % (Auto) Baso % (Auto) Neut # (Auto) Lymph # (Auto) Clare # (Auto) Eos # (Auto) Baso # (Auto) Sodium Potassium Chloride Carbon Dioxide BUN Creatinine Estimated GFR BUN/Creatinine Ratio Glucose Calcium Magnesium 2.0 COVID-19 PCR Assessment & Plan Post-op Postoperative Procedures: Procedures Operation Date: 12/26/19 14:00 Actual Procedures Side Surgeon p Hip Hemiarthroplasty Left Enrique Lopez MD Postoperative day: 3 Postoperative status: doing well and anemia Postoperative status narrative: Patient is stable postoperative day 3 status post left hip hemiarthroplasty for femoral neck fracture. She has the anticipated post hemorrhagic anemia. She has not made enough progress in physical therapy to be safe to go home and will require residential facility placement. She also has diabetes mellitus which is being cared for by the hospitalist service. Postoperative plan: routine post-op care, ambulate and discharge Postoperative plan narrative: The patient will be transferred today to residential. She should follow up with me in 2 weeks. If she is still at the [facility] this can be accomplished by video consultation. Would continue low-dose aspirin prophylaxis for DVT for 6 weeks. Time Spent With Patient Time with patient: less than 15 minutes
[2019-12-29 08:15] VITALS: O2SAT 96
--- NOTE | 2019-12-29 08:32 | P.DS_ITS ---
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 The patient reports that last night around 10:30 she was walking into her bedroom and sat down at the edge of the bed and slid off the bed onto the floor due to her silk underwear. She began having immediate left hip pain. She was unable to walk and her significant other, Pablo Dowd, helped her into bed. She reports she went to sleep but then her significant other Pablo Dowd dec ided to call EMS due to intractable pain. The patient is a poor historian and has what appears to be leeb-go-rihqopee dementia with short and long-term memory impairment. She is alert oriented to person and place. She is unable to tell me the current date and time of year or the current season of year. She reports that she believes it is May 2001. She endorses previous alcoholism with alco hol dependence that has been in remission since she broke her left humerus and had a protracted stay at [facility] nursing [facility] which she believes was recently but appears to be dated back to 2018. Previous speech therapy evaluation documented MOCA of +17/30 which would put her in dementia category. She has no complaints other than chronic daily headache. She denies sore throat, chest pain or pressure, shortness of breath, abdominal pain, nausea, vomiting, fever, chills, dysuria, diarrhea or constipation. She denied nausea but then had an episode of emesis in the room with food contents. She reports she has not eaten since yesterday and reports she did not eat dinner last night. Discharge Providers Provider Date of admission: 12/26/19 10:39 Discharge Date: 12/29/19 Primary care physician: Jyoti Streeter MD Consults: 12/26/19 17:15 Consult to Discharge Planning Routine Comment: Consult to Physical Therapy Evaluate & Treat Comment: Physician Instructions: post op SHARMIN protocol Consult to Respiratory Therapy Evaluate & Treat Comment: Physician Instructions: Evaluate and treat 12/27/19 12:25 Consult to Occupational Therapy Evaluate & Treat Comment: Please perform SLUMS Physician Instructions: Evaluate and treat 12/28/19 09:00 Consult to Dietitian, Adult Routine Comment: OK to see Pt on Saturday Reason For Exam: BMI 19.4 Discharge provider: Eliana Wolf MD Summary Hospital Course Discharge Diagnosis: 1. Status post left hip hemiarthroplasty for a left subcapital fracture 2. Osteoporosis 3. Anemia of chronic disease versus acute blood loss, no transfusion required 4. Hyperlipidemia 5. CVA with residual left-sided weakness 6. Protein calorie malnutrition 7. Type 2 diabetes 8. Dementia 9. History of subdural hematoma April 2019 10. Overactive bladder 11. Peptic ulcer disease, Dow's esophagitis, and GERD 12. Hyponatremia 13. Stage 3 chronic kidney disease Hospital Course: Patient is a 64-year-old female who was admitted to the hospital following a fall. She had intractable left hip pain and was brought into the hospital for evaluation. She was diagnosed with a left subcapital fracture. The patient underwent operative repair to include a left hip E me arthroplasty. She tolerated the procedure without difficulty. Patient does have some known moderate dementia. She had an episode of constipation which improved with bowel regimen. She was able to ambulate with PT and OT. Her chronic medical problems were managed medically. She was deemed to have osteoporosis and anemia of chronic disease. Patient was placed on vitamin D and calcium for this. The patient had a drop in her hemoglobin from 11.5-10. This was felt to be acute blood loss anemia. She did not require transfusion. The patient made slow but steady progress. She was deemed appropriate for discharge. Arrangements were made for her to discharge to correction at [facility]. At the time of this dictation she has no specific complaints. Her pain is well controlled. Status at Discharge Cognitive/behavioral status at discharge: confused Functional status at discharge: uses cane/walker Overall status at discharge: patient is back to baseline Time Spent with Patient Time spent: Less than 30 minutes Exam Vital Signs (past 8 hours): - 12/29/19 04:27 08/11/20 08:15 Temperature 97.6 F Pulse Rate 63 Respiratory Rate 15 Blood Pressure 152/87 H Pulse Oximetry 99 96 Oxygen Delivery Method Room Air Oxygen Flow Rate 0 Narrative Exam Narrative: Pleasant elderly female in no obvious distress Lungs: Clear to auscultation Cardiac exam: Regular rate and rhythm normal S1-S2 with a 2/6 systolic ejection murmur Abdomen: Soft nontender nondistended Extremities: No edema, left hip with bandage in place, no oozing, Objective Labs Result Diagrams: 12/29/19 06:48 12/29/19 06:48 Labs: Laboratory Results - last 24 hr 12/28/19 12/29/19 12/29/19 17:40 06:48 06:48 WBC 8.5 RBC 3.52 L Hgb 10.0 L Hct 30.3 L MCV 86.0 MCH 28.5 MCHC 33.1 RDW 16.3 H Plt Count 178 Neut % (Auto) 69.9 Lymph % (Auto) 18.9 L [place] % (Auto) 9.3 Eos % (Auto) 1.6 L Baso % (Auto) 0.3 Neut # (Auto) 6000 Lymph # (Auto) 1600 [place] # (Auto) 800 Eos # (Auto) 100 Baso # (Auto) 0 Sodium 132 L Potassium 4.3 Chloride 104 Carbon Dioxide 27 BUN 30 H Creatinine 1.23 H Estimated GFR 44.1 L BUN/Creatinine Ratio 24.4 H Glucose 209 H Calcium 8.6 Magnesium COVID-19 PCR Negative 12/29/19 06:48 WBC RBC Hgb Hct MCV MCH MCHC RDW Plt Count Neut % (Auto) Lymph % (Auto) [place] % (Auto) Eos % (Auto) Baso % (Auto) Neut # (Auto) Lymph # (Auto) [place] # (Auto) Eos # (Auto) Baso # (Auto) Sodium Potassium Chloride Carbon Dioxide BUN Creatinine Estimated GFR BUN/Creatinine Ratio Glucose Calcium Magnesium 2.0 COVID-19 PCR Discharge Assessment & Plan Assessment and Plan Assessment: 1. Left subcapital fracture, status post left hemiarthroplasty 2. Hypertension 3. Hyperlipidemia 4. Moderate dementia 5. Type 2 diabetes Plan of Treatment: Continue current treatment plan Discharged to [facility] for ongoing care Discharge Plan Discharge Plan Patient Disposition: SNF Transfer to: [facility] Consult as needed: Dental and Hearing Discharge orders & Medications Prescriptions: New oxycodone 5 mg Tablet 5 mg PO Q3HR PRN (Reason: Pain, Moderate (4-6)) Qty: 15 RF: 0 aspirin 81 mg Tablet,Delayed Release (Dr/Ec) 81 mg PO BID Qty: 30 RF: 0 polyethylene glycol 3350 17 gram Powder In Packet 17 gm PO DAILY 15 Days RF: 0 docusate sodium [DOK] 100 mg Capsule 100 mg PO BID Qty: 14 RF: 0 mirtazapine 15 mg Tablet 15 mg PO BEDTIME 30 Days RF: 0 oxybutynin chloride 5 mg Tablet 5 mg PO BEDTIME 30 Days RF: 0 calcium carbonate-vitamin D3 [Oyster Shell Calcium-Vit D3] 500 mg(1,250mg) - 200 unit Tablet 1 ea PO BIDWM 30 Days Qty: 30 RF: 0 lisinopril 20 mg Tablet 40 mg PO DAILY 30 Days RF: 0 Continued atorvastatin 40 mg tablet 40 mg PO QPM RF: 0 cholecalciferol (vitamin D3) [Vitamin D3] 1,000 unit Capsule 3,000 unit PO DAILY RF: 0 insulin aspart U-100 [Novolog Flexpen U-100 Insulin] 100 UNIT/1 ML insulin pen 1 dose subcut QIDACHS RF: 0 hydralazine 10 mg Tablet 20 mg PO BID RF: 0 tizanidine 2 mg Tablet 2 mg PO Q8H PRN (Reason: Muscle Spasm) RF: 0 sucralfate 1 gram Tablet 1 g PO QID RF: 0 cyanocobalamin (vitamin B-12) 1,000 mcg Tablet 1,000 mcg PO DAILY RF: 0 tramadol 50 mg tablet 50 mg PO BID PRN (Reason: Pain (Scale Score 7-10)) RF: 0 spironolactone 25 mg tablet 25 mg PO DAILY RF: 0 pantoprazole 40 mg tablet,delayed release (DR/EC) 40 mg PO BID RF: 0 ondansetron 4 mg tablet,disintegrating 8 mg PO Q6H PRN (Reason: nausea and vomiting) RF: 0 propranolol 20 mg tablet 20 mg PO DAILY RF: 0 Lantus U-100 Insulin 100 unit/mL Solution 11 unit SUBCUT DAILY RF: 0 Discontinued lisinopril 30 mg Tablet 30 mg PO DAILY RF: 0 aspirin [Aspirin Low Dose] 81 mg tablet,delayed release (DR/EC) 81 mg PO DAILY Qty: 30 RF: 0 mirtazapine 7.5 MG tablet 15 mg PO BEDTIME RF: 0 Follow up/Referrals: Jyoti Streeter MD [Primary Care Provider] - Enrique Lopez MD [Physician] - 2 Weeks (Can do a video consultation for follow up if still at correction facility.) Discharge Health Status Multidrug resistant organism: No MDRO Diet/Activity/Treatments Diet: Carb-consistent/Diabetic and Low-sodium Liquid consistency: Normal/Thin Food texture: Regular Activity: per ortho [facility] Reason for rehabilitation: Post-operative therapy Rehab type: Physical therapy and Occupational therapy Discharge Data Primary Care Provider: Jyoti Streeter
[2019-12-29 08:52] VITALS: BP 157/89; PULSE 68; RESP 16; TEMP 36.4; O2SAT 97
[2019-12-29] MEDS: INSULIN ASPART 100 UNIT/ML INSULN PEN SUBCUT (08:52)
[2019-12-29] MEDS: INSULIN GLARGINE 100 UNIT/ML 3ML PEN 11 UNIT SUBCUT (08:52)
[2019-12-29 08:53] VITALS: BP 153/96; PULSE 74
[2019-12-29] MEDS: CALCIUM CARB/VIT D3 500/200 TABLET 1 EACH PO (08:53)
[2019-12-29] MEDS: HYDRALAZINE 10 MG TABLET 20 MG PO (08:53)
[2019-12-29] MEDS: SUCRALFATE 1 GM TABLET PO (08:53)
[2019-12-29] MEDS: PROPRANOLOL 10 MG TABLET 20 MG PO (08:53)
[2019-12-29 08:56] VITALS: BP 153/96; PULSE 74
[2019-12-29] MEDS: lisinopriL 20 MG TABLET 40 MG PO (08:56)
[2019-12-29] MEDS: ASPIRIN EC 81 MG TABLET PO (08:56)
[2019-12-29] MEDS: CYANOCOBALAMIN (VITAMIN B-12) 500 MCG TABLET 1000 MCG PO (08:56)
[2019-12-29] MEDS: PANTOPRAZOLE 40 MG TABLET PO (08:56)
[2019-12-29] MEDS: SPIRONOLACTONE 25 MG TABLET PO (08:57)
[2019-12-29] MEDS: ACETAMINOPHEN 325 MG TABLET 650 MG PO (08:57)
[2019-12-29] MEDS: DOCUSATE 100 MG CAPSULE PO (08:57)
--- NOTE | 2019-12-29 09:11 | CM.DPC ---
DCP continued: EMR reviewed: D/C orders placed and Cm/RN called [facility] at [facility] and they can pick patient up at 11:30 AM. Nurse report number is [phone]- RN miah will take report- PRODUCT MARKETING CONSULTANT notified, RN notified and COVID results, PASRR, D/C summary, SNF Order and medication list faxed to [facility]. PASRR original placed in folder to go to [facility] and copy given to Maria Teresa DELEON to scan into patients record. Asia mcallister RN
--- NOTE | 2019-12-29 09:42 | OT.IP.TRT ---
Current Diagnoses Age-related osteoporosis with current pathological fracture, left femur, initial encounter for fracture (12/26/19) Surgery Performed Operation Date: 12/26/19 14:00 Actual Procedures p Hip Hemiarthroplasty(Left) - Enrique Lopez MD Occupational Therapy Treatment Note M2 OT-IP Current Condition Start: 12/28/19 15:32 Freq: Status: Active Protocol: Document 12/28/19 15:36 CGR (Rec: 12/28/19 15:50 CGR [email or web address]) Occupational Therapy Current Condition Current Condition Evaluation Date 12/28/19 Treatment Diagnosis GLF with hip fx s/p sx. Diagnosis Onset Date 12/26/19 Weight Bearing Status Weight Bearing Status Weight Bear as Tolerated M3 OT- IP Subjective and Pain Start: 12/28/19 15:32 Freq: Status: Active Protocol: Document 12/29/19 10:52 CCC (Rec: 12/29/19 11:00 CCC [email or web address]) OT- Subjective Occupational Therapy Visit Type Type Treatment Note Visit Start Time 08:44 Visit Stop Time 09:42 Total Visit Minutes 58 Occupational Therapy Visit Comments Patient Comments Pt agreeable to shower. Pt not remembering that she is going to rehab and at times thinks she is going home. Patient/Caregiver Goals Pt wanting to go home. OT Pain Assessment Pain When Pain Assessed At Rest Pain Present Pain Present Pain Reported Location left hip Intensity 8 Scale Used Numeric (0 - 10) M4 OT- IP ADL's Start: 12/28/19 15:32 Freq: Status: Active Protocol: Document 12/29/19 10:52 CCC (Rec: 12/29/19 11:00 [facility] [email or web address]) OT ADL-Grooming General Evaluation Grooming Ability Standby Assistance Areas Needing Assistance Combing/Brushing Hair,Face Washing OT ADL-Dressing General Eval Lower Body Dressing Ability Maximum Assistance Areas Needing Assistance Underpants/Brief,Pants/Shorts, Socks OT ADL-Bathing Bathing Type Bathing Type Shower General Evaluation Bathing Ability Moderate Assistance Areas Needing Assistance Retrieving/Setting Up Items, Wash/Dry Back,Wash/Dry Lower Extremities Comments OT Bathing Comments Due to posterior hip precautions, pt needing assist to wash LE, educated would be beneficial to have a long handled sponge. Pt does not recall her hip precautions and at this time best for pt to have assist for all her needs. M5 OT- IP IADL's Start: 12/28/19 15:32 Freq: Status: Active Protocol: Document 12/28/19 15:36 CGR (Rec: 12/28/19 15:50 CGR [email or web address]) OT-Instrumental Activities of Daily Living Deficits IADL Deficits Identified Deficits Home Safety Awareness Awareness of Need for Assistance at Home Decreased Awareness Ability to Problem Solve Emergency Unable to Problem Solve Situations Medication Management Medication Management Caregiver Administers Money Management Money Management Caregiver Provides Assistance Meal Preparation Meal Preparation Caregiver Provides Assist Analysis Reporting Developer Analysis Reporting Developer Caregiver Provides Assist Driving Driving Comments Pt does not drive M6 OT- IP Functional Cognition Start: 12/28/19 15:32 Freq: Status: Active Protocol: Document 12/29/19 10:52 [facility] (Rec: 12/29/19 11:00 [facility] [email or web address]) Cognitive Factors Limiting Selfcare Function Cognitive Ability Level of Alertness Alert Patient Orientation Name,Place,Situation Attention Span Ability Capable of Focused Attention Ability to Follow Commands Able to Follow One Step Commands with Increased Time, Able to Follow One Step Commands with Repetition Memory Description Short Term Impaired,Working Impaired Safety Awareness No Deficits Noted,Decreased Recall of Precautions, Decreased Ability to Apply Precautions,Underestimates Need for Assistance Problem Solving Ability Unable to Identify Errors, Needs Assist to Identify Solutions Cognitive Comments Cognitive Assessment Comments Pt decreased memory and not able to recall hip precautions and needing step by step cues to incorporate hip precautions during ADl and functional mobility needs. M7 OT- IP Mobility and Balance Start: 12/28/19 15:32 Freq: Status: Active Protocol: Document 12/29/19 10:52 [facility] (Rec: 12/29/19 11:00 [facility] [email or web address]) OT- Bed Mobility Assessment Scooting Scooting to Edge of Bed Moderate Assistance OT-Transfer Assessment Sit to and From Stand Sit to and from Stand Minimal Assistance Transfers Transfer Ability Minimal Assistance,Moderate Assistance Technique Transfer Destination Bed,Chair,Shower Stall Devices Transfer Assistive Devices Gait Belt,Front Wheeled Walker Comments Mobility Comments Assist for balance especially when stepping over the threshold of the shower. MODA to stand from lower surfaces especially if not able to use armrest of grab bar to assist. OT- Balance Assessment Sitting Balance and Reactions Static Sitting Balance Ability Good Dynamic Sitting Balance Ability Fair M8 OT- IP Objective Assessments Start: 12/28/19 15:32 Freq: Status: Active Protocol: Document 12/28/19 15:36 CGR (Rec: 12/28/19 15:50 CGR [email or web address]) OT Gross Range of Motion Upper Extremity Range of Motion Assessment Within Functional Limits OT Strength Upper Extremity Strength Assessment Within Functional Limits OT- Coordination Assessment Upper Extremity Finger to Nose Test Within Functional Limits Finger Tapping Test Within Functional Limits OT-Muscle Tone Assessment Muscle Tone WNL Yes OT Sensation Assessment Edema Edema Absent M9 OT- IP Assessment and Plan Start: 12/28/19 15:32 Freq: Status: Active Protocol: Document 12/29/19 10:52 [facility] (Rec: 12/29/19 11:00 [facility] [email or web address]) OT Summary Assessment and Plan Potential Rehabilitation Potential Good Analytic Complexity at Evaluation Moderate Summary OT Impairments Pain,Balance,Functional Cognition,Functional Mobility, Dressing,Toileting,Bathing, Toilet Transfers,Shower Transfers,Activity Tolerance Progress Towards Goals Slow Progress due to Pain,Slow Progress due to Cognition Assessment Summary Pt able to tolerate shower and dressing today. Pt will strongly benefit from skilled rehab continue to practice hip precautions for all ADl and functional mobility needs. Pt looking to discharge to SNF today. Treatment Plan OT Treatment Plan ADL Training,Functional Cognition Training,Functional Mobility,Patient/Family Education,Discharge Planning Discharge Recommendations OT Discharge Recommendations SNF Rehab Home Equipment Needs TBD Transportation Needs at Discharge Private Vehicle
--- NOTE | 2019-12-29 10:06 | PT.IPTN ---
Current Diagnoses Age-related osteoporosis with current pathological fracture, left femur, initial encounter for fracture (12/26/19) Surgery Performed Operation Date: 12/26/19 14:00 Actual Procedures p Hip Hemiarthroplasty(Left) - Enrique Lopez MD Physical Therapy Treatment Note M2 PT-IP Current Condition Start: 12/27/19 08:38 Freq: NEEDED Status: Active Protocol: Document 12/27/19 10:00 AW (Rec: 12/27/19 11:58 AW [id number]) Physical Therapy Current Condition Current Condition Evaluation Date 12/27/19 Treatment Diagnosis L femur fracture s/p hemiarthroplasty; difficulty in walking Onset Date 12/26/19 Precautions Posterior Hip Precautions No Hip Flexion > 90 degrees,No Hip Internal Rotation,No Hip Adduction Other Precautions high falls risk; osteoporosis Weight Bearing Status Weight Bearing Status Weight Bear as Tolerated M3 PT-IP Subjective Start: 12/27/19 08:38 Freq: NEEDED Status: Active Protocol: Document 12/28/19 15:21 CLB (Rec: 12/28/19 16:32 CLB [id number]) Subjective Physical Therapy Visit Type Type Treatment Note Visit Start Time 15:21 Visit Stop Time 15:58 Total Visit Minutes 37 Number of IT AUDIT MANAGER Visits 3 Physical Therapy Visit Comments Patient Comments Pt agreeable to participate with therapy. Therapy Pain Assessment Pain When Pain Assessed During Mobility Pain Present Pain Present Pain Reported Location left hip Intensity 8 Scale Used Numeric (0 - 10) Pain Behaviors Facial Grimacing,Wincing Pain Management Techniques Re-positioning,Timing of Activity with Medications M4 PT-IP Mobility and Gait Start: 12/27/19 08:38 Freq: NEEDED Status: Active Protocol: Document 12/28/19 15:21 CLB (Rec: 12/28/19 16:32 CLB [id number]) PT-Bed Mobility Assessment Supine to Sit Supine to Sit Moderate Assistance,1 Person Assistance Sit to Supine Sit to Supine Moderate Assistance,2 Person Assistance Scooting Scooting to Edge of Bed Moderate Assistance,Maximum Assistance PT-Transfer Assessment Sit to and From Stand Sit to and from Stand Contact Guard Assistance,Use of Upper Extremities Equipment Transfer Assistive Device Gait Belt,Front Wheeled Walker Orthotic/Prosthetic Devices or Brace: No Transfers Transfer Destination Bed Transfer Technique Stand Step Pivot Transfer Ability Level of Assist Minimal Assistance,1 Person Assistance,Use of Upper Extremities Comments Mobility Comments Pt BP in supine 174/68, pt performed HS and AP in supine. Continued education of posterior hip precautions, pt can not recall any of her precautions. Pt required max cuing for sequencing to sit and Max A to come to EOB. Pt BP in sitting 158/95, BP in standing 130/93. Pt able to stand CGA with cues for hand placement for safety. Pt ambulated ~60ft w/FWW/CGA with cues to stay inside walker and making turns to the right. Pt returned to room sitting on EOB CGA, pt required Mod A x2 for sit-supine. Pt BP in supine at end of tx 153/85. Left pt in bed with bed alarm and SCD's on, call light and all needs within reach. Gait Assessment Gait Gait Assistance Required: Contact Guard Assist,1 Person Assist Distance (Feet) 60 Able to Maintain Weight Bearing Status Yes During Gait Assistive Devices Assistive Device Gait Belt,Front Wheeled Walker Orthotic/Prosthetic Devices or Brace: No Gait Deviations General Gait Pattern Antalgic,Decreased Stride Length,Decreased Feet Clearance,Flexed Trunk,Narrow Based Gait,Step-to Gait Factors Limiting Gait Function Factors Limiting Gait Function Decreased Activity Tolerance, Decreased Strength,Difficulty Following Directions,Limited Range of Motion,Pain,Poor Balance,Poor Safety Awareness Comments Gait Comments Pt required CGA for gait with cues to stay inside walker, pt walked with small step through gait pattern then step to with fatigue. Stair Climbing Assessment Comments Stair Climbing Comments Not assessed M5 PT-IP Objective Assessments Start: 12/27/19 08:38 Freq: NEEDED Status: Active Protocol: Document 12/27/19 10:00 AW (Rec: 12/27/19 11:58 AW [id number]) Orientation Orientation/Cognition Level of Alertness Confusional State Orientation Name,Situation Safety Awareness Decreased Safety Awareness Memory Description Short Term Impaired,[place] Impaired Comments Pt is unable to tell this PT where she is or the year. Gross Range of Motion Upper Extremity ROM Assessment Left Impaired Impairments History of left humerus fracture Lower Extremity ROM Assessment Within Functional Limits Strength Lower Extremity Strength Assessment Bilaterally Impaired Hip 3+/5 Knee 4-/5 Ankle 4-/5 Coordination Assessment Gross Coordination Gross Coordination WNL Sensation Assessment Sensation Gross Sensation WNL Muscle Tone Muscle Tone WNL Yes M6 PT-IP Treatment Start: 12/27/19 08:38 Freq: NEEDED Status: Active Protocol: Document 12/28/19 15:21 CLB (Rec: 12/28/19 16:32 CLB [id number]) Physical Therapy Treatment Exercises Exercises Ankle Pumps,Heel Slides Education Education Provided Precautions,Weight Bearing Status,Safety Other Treatments Other Treatment Performed Educated pt on posterior hip precautions. Pt cannot recall precautions. M7 PT-IP Assessment and Plan Start: 12/27/19 08:38 Freq: NEEDED Status: Active Protocol: Document 12/28/19 15:21 CLB (Rec: 12/28/19 16:32 CLB [id number]) PT Summary Assessment and Plan Potential Rehabilitation Potential Fair Status of Condition at Evaluation Evolving Summary Impairments Pain,ROM,Strength,Balance, Sensation,Cognition,Bed Mobility,Transfers,Gait, Activity Tolerance Assessment Summary Pt does not recall hip precautions, pt has increased pain in WB but was able to increase gait distance to ~ 60ft with CGA but continues to require max cues for safety during bed mobility, transfers and gait. Goals Bed Mobility Goal Standby Assistance Transfer Goal Standby Assistance,Front Wheeled Walker Gait Goal Standby Assistance,Front Wheel Walker Gait Distance 50 Other Goals - up/down one step with FWW SBA Days to Meet Goals 10 Frequency of Treatment Frequency Of Treatment Twice a Day Treatment Plan Physical Therapy Treatment Plan Bed Mobility Training,Transfer Training,Gait Training, Therapeutic Exercise,Balance Retraining,Post Op Education, Discharge Planning,Hot or Cold Pack,Neuromuscular Re-ed Other Recommendations and Next Treatment monitor BP, ther ex; transfers Focus , gait training with FWW Recommendations To Nursing Amount of Assist Needed 1 Person Assist Discharge Recommendations PT Discharge Recommendations SNF Rehab Transportation Needs at Discharge Wheelchair/Cabulance Note reviewed by Neha Curry PTA
--- NOTE | 2019-12-29 10:58 | PC.NURSE ---
Day shift: [facility] at approx [facility].
--- NOTE | 2019-12-29 11:59 | PC.NURSE ---
Day shift: Pt left unit at approx 1200 to [facility]. Paperwork is w/ transport person in packet. Pt has all personal belongings. SO is here as well and will go to [facility] today to help. Irvin is CDI. No c/o of pain when moved to .
== END 2019-12-29 12:02 | DRG 470 ==
LOC: ED 08:30 → AC 10:40
PROVIDERS: Admitting Provider Internal Medicine; Emergency Provider Emergency Medicine; PCP Family Medicine; Referring Provider Orthopaedic Surgery; Visit Provider Internal Medicine
PROC: 0SRS0JZ Replacement of Left Hip Joint, Femoral Surface with Synthetic Substitute, Open Approach (ICD-10-PCS; CPT 27125; principal; 2019-12-26 14:00)
DX: M80.052A Age-related osteoporosis with current pathological fracture, left femur, initial encounter for fracture (principal); D62 Acute posthemorrhagic anemia; I69.354 Hemiplegia and hemiparesis following cerebral infarction affecting left non-dominant side; Z68.1 Body mass index [BMI] 19.9 or less, adult; E87.1 Hypo-osmolality and hyponatremia; F03.90 Unspecified dementia, unspecified severity, without behavioral disturbance, psychotic disturbance, mood disturbance, and anxiety; N18.3 Chronic kidney disease, stage 3 (moderate); E11.65 Type 2 diabetes mellitus with hyperglycemia; R63.6 Underweight; E11.22 Type 2 diabetes mellitus with diabetic chronic kidney disease; I12.9 Hypertensive chronic kidney disease with stage 1 through stage 4 chronic kidney disease, or unspecified chronic kidney disease; K21.9 Gastro-esophageal reflux disease without esophagitis; W18.30XA Fall on same level, unspecified, initial encounter; F17.210 Nicotine dependence, cigarettes, uncomplicated; N32.81 Overactive bladder; Z79.4 Long term (current) use of insulin; Z11.59 Encounter for screening for other viral diseases
CPT/HCPCS: 36415; 51701; 71045; 72170; 73502; 80048; 80053; 82962; 83036; 83735; 85025; 85610; 85730; 87635; 96361; 96374; 96375; 97110; 97116; 97162; 97166; 97530; 97535; 99285; 99291; C1776; J0171; J1170; J2250; J2405; J2704; J3010

== ENCOUNTER 2020-01-05 12:09 | Emergency (ER) | payer MEDICARE, MEDICAID, SELFPAY ==
[2019-12-26 16:38] VITALS: BMI 19.1
[2020-01-05] VITALS (13 sets, daily range): BP systolic 142–206; BP diastolic 83–103; PULSE 65–80; RESP 14–25; O2SAT 97–99
--- NOTE | 2020-01-05 12:25 | DI.RAD.S_ITS ---
PROCEDURE: XR CHEST 1V INDICATIONS: chest pain TECHNIQUE: One view of the chest was acquired. COMPARISON: [facility], [place], CHEST 2 VIEW, 04/11/2017, 10:46. [facility], [place], SHOULDER MINIMUM 2 VIEW LEFT, 07/14/2017, 12:42. [facility], [place], XR CHEST 1V, 12/26/2019, 8:18. FINDINGS: Surgical changes and devices: None. Lungs and pleura: Lungs are clear. No pleural effusions or pneumothorax. Mediastinum: Mediastinal contours appear normal. Heart size is normal. Bones and chest wall: No suspicious bony lesions. Overlying soft tissues appear unremarkable. IMPRESSION: No acute cardiopulmonary disease. Dictated by: Aristeo Mendoza M.D. on 01/05/2020 at 13:18 Approved by: Aristeo Mendoza M.D. on 01/05/2020 at 13:23
--- NOTE | 2020-01-05 12:26 | ED.GENADULT ---
HPI - General Adult <ROBIN CisnerosP - Last Filed: 01/05/20 20:17> General Chief complaint: Hypertension Stated complaint: Hypertension Time Seen by Provider: 01/05/20 12:18 Source: patient and EMS Mode of arrival: EMS Limitations: no limitations History of Present Illness HPI narrative: 64yo female with a history of left femur fracture CVA with left hemiplegia, osteoporosis, high blood pressure, chronic kidney disease, anemia, depression, hypertension, presents to the emergency department via EMS for elevated blood pressure. Patient states she woke up this morning with a slight headache, she frequently has headaches and this felt similar. Patient states she is from [facility], initially the staff noticed high blood pressure. She was given blood pressure medication that her BP did not decreased. Patient denies any symptoms at this time such as headache, double vision, difficulty moving, recent falls, chest pain, shortness of breath, dizziness, nausea, vomiting, diarrhea, or other concerns. Related Data Home Medications Medication Instructions Recorded Confirmed atorvastatin 40 mg PO QPM 10/08/17 12/26/19 cholecalciferol (vitamin D3) 3,000 unit PO DAILY 10/08/17 12/26/19 [Vitamin D3] insulin aspart U-100 [Novolog 1 dose SUBCUT QIDACHS 10/08/17 12/26/19 Flexpen U-100 Insulin] cyanocobalamin (vitamin B-12) 1,000 mcg PO DAILY 08/02/19 12/26/19 hydralazine 20 mg PO BID 08/02/19 12/26/19 sucralfate 1 g PO QID 08/02/19 12/26/19 tizanidine 2 mg PO Q8H PRN 08/02/19 12/26/19 Lantus U-100 Insulin 11 unit SUBCUT DAILY 12/26/19 12/26/19 ondansetron 8 mg PO Q6H PRN 12/26/19 12/26/19 pantoprazole 40 mg PO BID 12/26/19 12/26/19 propranolol 20 mg PO DAILY 12/26/19 12/26/19 spironolactone 25 mg PO DAILY 12/26/19 12/26/19 tramadol 50 mg PO BID PRN 12/26/19 12/26/19 Previous Rx's Medication Instructions Recorded aspirin 81 mg PO BID #30 tab 12/29/19 calcium carbonate-vitamin D3 1 ea PO BIDWM 30 Days #30 tab 12/29/19 [Oyster Shell Calcium-Vit D3] docusate sodium [DOK] 100 mg PO BID #14 cap 12/29/19 lisinopril 40 mg PO DAILY 30 Days tab 12/29/19 mirtazapine 15 mg PO BEDTIME 30 Days tab 12/29/19 oxybutynin chloride 5 mg PO BEDTIME 30 Days tab 12/29/19 oxycodone 5 mg PO Q3HR PRN #15 tab 12/29/19 polyethylene glycol 3350 17 gm PO DAILY 15 Days each 12/29/19 Allergies Allergy/AdvReac Type Severity Reaction Status Date / Time Iodine and Iodide Containing Allergy Unknown Verified 01/05/20 12:16 Produc [IODINE AND IODIDE CONTAINING PRODUC] latex [LATEX] Allergy Unknown Verified 01/05/20 12:16 Review of Systems <GARY Cisneros - Last Filed: 01/05/20 20:17> Review of Systems Narrative: REVIEW OF SYSTEMS: GENERAL: Denies fever or chills. HENT: No head trauma, hearing loss or sore throat. EYES: No loss of vision, double vision, eye pain, or irritation. CARDIOVASCULAR: No chest pain or syncope. RESPIRATORY: No shortness of breath or cough. GASTROINTESTINAL: No nausea, vomiting, diarrhea, or constipation. GENITOURINARY: No flank pain or dysuria. MUSCULOSKELETAL: No pain. INTEGUMENTARY: No rash, lesions, or pruritus. NEURO: No numbness, tingling, memory loss, or confusion. PSYCH: No behavior or mood changes. Patient History <GARY Cisneros - Last Filed: 01/05/20 20:17> Medical History Dow's esophagus with esophagitis (Acute) CVA (cerebral vascular accident) (Acute) Dementia (Acute) Diabetes (Acute) Gallbladder disease (Chronic) GERD (gastroesophageal reflux disease) (Acute) Hyperlipidemia (Acute) Hypertension (Acute) Overactive bladder (Acute) Subdural hematoma (Acute) Upper GI bleed (Acute) Surgical History History of cholecystectomy (Acute) Tubal ligation status (Acute) Family History Mother Heart disease Father No problems noted. Social History household members: significant other Smoking Status: Current every day smoker alcohol intake: former Smoking Status: Current every day smoker tobacco type: cigarettes alcohol intake frequency: holidays/special occasions only Alcohol type: hard liquor Substance Use Type: does not use Exam <GARY Cisneros - Last Filed: 01/05/20 20:17> Initial Vital Signs Initial Vital Signs: Vital Signs Pulse Rate 69 01/05/20 12:11 Respiratory Rate 14 01/05/20 12:11 Blood Pressure 203/103 H 01/05/20 12:11 Pulse Oximetry 99 01/05/20 12:11 PHYSICAL EXAMINATION: GENERAL: Well groomed, alert, and cooperative. Answers questions promptly and appropriately. Vital signs noted. HENT: Normocephalic, atraumatic. Ear canals patent. Oral mucosa is pink and moist. EYES: Conjunctiva pink, sclera white, no periorbital swelling. CHEST: Normal to inspection and without deformities. CARDIOVASCULAR: S1 and S2 sounds normal. Regular rate and rhythm, no murmurs, clicks, or bruits. No pedal edema. RESPIRATORY: Normal respiratory rate, trachea midline, airway patent. No stridor, nasal flaring or accessory muscle use. Lungs are clear in all cuevas without wheeze, rhonchi, or crackles. GASTROINTESTINAL: Bowel sounds normoactive. Abdomen is soft and non-tender. No organomegaly. MUSCULOSKELETAL: Normal gait and coordination. Equal tone and mass bilaterally. EXTREMITIES: CMS intact. Moves all extremities. SKIN: Warm, dry, soft, appropriate color for ethnicity. No lesions, rashes, or wounds. NEURO: Alert and Oriented X 3. Good coordination. No ataxia, or sensory deficits, or cognitive issues. PSYCH: Appropriate affect and mood. <Corey Leon MD - Last Filed: 01/06/20 13:19> Initial Vital Signs Initial Vital Signs: Vital Signs Pulse Rate 69 01/05/20 12:11 Respiratory Rate 14 01/05/20 12:11 Blood Pressure 203/103 H 01/05/20 12:11 Pulse Oximetry 99 01/05/20 12:11 Course <GARY Cisneros - Last Filed: 01/05/20 20:17> Course Course Narrative: 10 mg of hydralazine given, blood pressure significantly improved with her time in the emergency department. Continued to deny symptoms. Orders Ordered: Discontinued Medications Hydralazine HCl (Apresoline) 10 mg IV NOW ONE Stop: 01/05/20 13:30 Last Admin: 01/05/20 13:38 Dose: 10 mg Documented by: DAVIDA Vital Signs Vital signs: Vital Signs - 8 hr 01/05/20 12:16 01/05/20 12:30 01/05/20 13:00 Pulse Rate 69 68 65 Respiratory Rate 18 25 H 20 Blood Pressure 206/102 H 200/97 H Pulse Oximetry 98 97 99 01/05/20 13:30 01/05/20 13:38 01/05/20 13:56 Pulse Rate 67 78 79 Respiratory Rate 21 20 Blood Pressure 184/100 H 183/100 H 142/83 H Pulse Oximetry 98 97 01/05/20 14:00 01/05/20 14:20 01/05/20 14:30 Pulse Rate 77 75 77 Respiratory Rate 21 23 21 Blood Pressure 158/88 H 155/90 H Pulse Oximetry 99 98 98 01/05/20 14:40 01/05/20 15:00 01/05/20 15:01 Pulse Rate 77 78 80 Respiratory Rate 17 19 Blood Pressure 149/88 H 152/89 H 148/85 H Pulse Oximetry 98 98 <Corey Leon MD - Last Filed: 01/06/20 13:19> Orders Ordered: Discontinued Medications Hydralazine HCl (Apresoline) 10 mg IV NOW ONE Stop: 01/05/20 13:30 Last Admin: 01/05/20 13:38 Dose: 10 mg Documented by: DAVIDA Vital Signs Vital signs: Vital Signs - 8 hr 01/05/20 12:16 01/05/20 12:30 01/05/20 13:00 Pulse Rate 69 68 65 Respiratory Rate 18 25 H 20 Blood Pressure 206/102 H 200/97 H Pulse Oximetry 98 97 99 01/05/20 13:30 01/05/20 13:38 01/05/20 13:56 Pulse Rate 67 78 79 Respiratory Rate 21 20 Blood Pressure 184/100 H 183/100 H 142/83 H Pulse Oximetry 98 97 01/05/20 14:00 01/05/20 14:20 01/05/20 14:30 Pulse Rate 77 75 77 Respiratory Rate 21 23 21 Blood Pressure 158/88 H 155/90 H Pulse Oximetry 99 98 98 01/05/20 14:40 01/05/20 15:00 01/05/20 15:01 Pulse Rate 77 78 80 Respiratory Rate 17 19 Blood Pressure 149/88 H 152/89 H 148/85 H Pulse Oximetry 98 98 Medical Decision Making <AmeliaGARY Anguiano - Last Filed: 01/05/20 20:17> Medical Records Medical records reviewed: Yes I reviewed the patient's medical records. Lab Data Lab results reviewed: Yes I reviewed the patient's lab results. Result diagrams: 01/05/20 12:23 01/05/20 12:23 Labs: Lab Results 01/05/20 01/05/20 01/05/20 Range/Units 12:23 12:23 12:23 WBC 10.7 (4.5-11.0) X10^3/uL RBC 3.98 L (4.0-5.2) X10^6/uL Hgb 11.0 L (12.0-16.0) g/dL Hct 33.9 L (36-46) % MCV 85.2 (80-100) fL MCH 27.6 (26-34) PG MCHC 32.3 (30-36) % RDW 15.8 H (11.6-14.8) % Plt Count 485 H (150-400) X10^3/uL Neut % (Auto) 69.6 (50-75) % Lymph % (Auto) 20.2 L (25-40) % Rhea % (Auto) 7.4 (3-14) % Eos % (Auto) 2.3 (2-4) % Baso % (Auto) 0.5 (0-2) % Neut # (Auto) 7400 H (2077-3174) /uL Lymph # (Auto) 2200 (8885-0016) /uL Rhea # (Auto) 800 (0-900) /uL Eos # (Auto) 200 (0-450) /uL Baso # (Auto) 100 (0-100) /uL PT 9.7 L (10.1-12.7) SECONDS INR 0.8 L (0.9-1.3) APTT 24 L D (26.4-36.2) SECONDS Sodium 135 L (137-145) mmol/L Potassium 4.4 (3.4-5.1) mmol/L Chloride 107 (98-107) mmol/L Carbon Dioxide 25 (22-32) mmol/L BUN 18 H (7-17) mg/dL Creatinine 1.13 H (0.52-1.04) mg/dL Estimated GFR 48.6 L (>60) mL/min BUN/Creatinine Ratio 15.9 (6-22) Glucose 142 H (80-110) mg/dL Calcium 8.9 (8.4-10.2) mg/dL Magnesium (1.6-2.3) mg/dL Total Bilirubin 0.6 (0.2-1.3) mg/dL AST 27 (14-36) IU/L ALT 14 (<35) IU/L Alkaline Phosphatase 94 (38-126) U/L Total Creatine Kinase 57 (30-135) U/L CK-MB (CK-2) TNP CK-MB (CK-2) Rel Index TNP Troponin I 0.020 (0.01-0.034) ng/mL Total Protein 6.6 (6.3-8.2) g/dL Albumin 3.1 L (3.5-5.0) g/dL Globulin 3.5 (1.7-4.1) g/dL Albumin/Globulin Ratio 0.9 L (1.0-2.8) Lipase 12 L (23-300) U/L 01/05/20 Range/Units 12:23 WBC (4.5-11.0) X10^3/uL RBC (4.0-5.2) X10^6/uL Hgb (12.0-16.0) g/dL Hct (36-46) % MCV (80-100) fL MCH (26-34) PG MCHC (30-36) % RDW (11.6-14.8) % Plt Count (150-400) X10^3/uL Neut % (Auto) (50-75) % Lymph % (Auto) (25-40) % Rhea % (Auto) (3-14) % Eos % (Auto) (2-4) % Baso % (Auto) (0-2) % Neut # (Auto) (3409-7396) /uL Lymph # (Auto) (3732-6437) /uL Rhea # (Auto) (0-900) /uL Eos # (Auto) (0-450) /uL Baso # (Auto) (0-100) /uL PT (10.1-12.7) SECONDS INR (0.9-1.3) APTT (26.4-36.2) SECONDS Sodium (137-145) mmol/L Potassium (3.4-5.1) mmol/L Chloride (98-107) mmol/L Carbon Dioxide (22-32) mmol/L BUN (7-17) mg/dL Creatinine (0.52-1.04) mg/dL Estimated GFR (>60) mL/min BUN/Creatinine Ratio (6-22) Glucose (80-110) mg/dL Calcium (8.4-10.2) mg/dL Magnesium 1.7 (1.6-2.3) mg/dL Total Bilirubin (0.2-1.3) mg/dL AST (14-36) IU/L ALT (<35) IU/L Alkaline Phosphatase (38-126) U/L Total Creatine Kinase (30-135) U/L CK-MB (CK-2) CK-MB (CK-2) Rel Index Troponin I (0.01-0.034) ng/mL Total Protein (6.3-8.2) g/dL Albumin (3.5-5.0) g/dL Globulin (1.7-4.1) g/dL Albumin/Globulin Ratio (1.0-2.8) Lipase (23-300) U/L Imaging Data Chest x-ray: Radiologist's Impression: [address] [address] XRay Report Signed Patient: Kristine Moon RMR#: [id number] : 6Acct:[id number] Age/Sex: 64 / FDate of Service: 01/05/20 Loc: ED Accession Number: [id number] Procedure: XR chest 1V Ordering Provider: Amelia Schultz PROCEDURE: XR CHEST 1V INDICATIONS: chest pain TECHNIQUE: One view of the chest was acquired. COMPARISON: [facility], CR, CHEST 2 VIEW, 04/11/2017, 10:46. [facility], CR, SHOULDER MINIMUM 2 VIEW LEFT, 07/14/2017, 12:42. [facility], CR, XR CHEST 1V, 12/26/2019, 8:18. FINDINGS: Surgical changes and devices: None. Lungs and pleura: Lungs are clear. No pleural effusions or pneumothorax. Mediastinum: Mediastinal contours appear normal. Heart size is normal. Bones and chest wall: No suspicious bony lesions. Overlying soft tissues appear unremarkable. IMPRESSION: No acute cardiopulmonary disease. Dictated by: Aristeo Mendoza M.D. on 01/05/2020 at 13:18 Approved by: Aristeo Mendoza M.D. on 01/05/2020 at 13:23 ECG Data Interpretation: 1229: Sinus rhythm, rate 63, FL interval 151, QTC 439. No ST elevation or ST depression. T-wave inversion noted in Lead III and V@ which is consistent with past EKGs, however, T-wave inversion also noted in V2, new since past EKG in10/11/2018. EKG also viewed by Dr. Leon per protocol. 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 Patient is asymptomatic on arrival, mentating appropriately. Blood pressure lowered with an additional dose of hydralazine. No concerns for cardiac compromise or cranial etiology. Laboratory work is within normal limits for patient. Chest x-ray is non-remarkable. Patient was discharged with instruction to follow-up for continued management and further treatment of hypertension. Return precautions given for new or worsening symptoms. Patient agreed to plan of care verbalized understanding. <Corey Leon MD - Last Filed: 01/06/20 13:19> Lab Data Labs: Lab Results 01/05/20 01/05/20 01/05/20 Range/Units 12:23 12:23 12:23 WBC 10.7 (4.5-11.0) X10^3/uL RBC 3.98 L (4.0-5.2) X10^6/uL Hgb 11.0 L (12.0-16.0) g/dL Hct 33.9 L (36-46) % MCV 85.2 (80-100) fL MCH 27.6 (26-34) PG MCHC 32.3 (30-36) % RDW 15.8 H (11.6-14.8) % Plt Count 485 H (150-400) X10^3/uL Neut % (Auto) 69.6 (50-75) % Lymph % (Auto) 20.2 L (25-40) % Rhea % (Auto) 7.4 (3-14) % Eos % (Auto) 2.3 (2-4) % Baso % (Auto) 0.5 (0-2) % Neut # (Auto) 7400 H (5315-3922) /uL Lymph # (Auto) 2200 (7306-1056) /uL Rhea # (Auto) 800 (0-900) /uL Eos # (Auto) 200 (0-450) /uL Baso # (Auto) 100 (0-100) /uL PT 9.7 L (10.1-12.7) SECONDS INR 0.8 L (0.9-1.3) APTT 24 L D (26.4-36.2) SECONDS Sodium 135 L (137-145) mmol/L Potassium 4.4 (3.4-5.1) mmol/L Chloride 107 (98-107) mmol/L Carbon Dioxide 25 (22-32) mmol/L BUN 18 H (7-17) mg/dL Creatinine 1.13 H (0.52-1.04) mg/dL Estimated GFR 48.6 L (>60) mL/min BUN/Creatinine Ratio 15.9 (6-22) Glucose 142 H (80-110) mg/dL Calcium 8.9 (8.4-10.2) mg/dL Magnesium (1.6-2.3) mg/dL Total Bilirubin 0.6 (0.2-1.3) mg/dL AST 27 (14-36) IU/L ALT 14 (<35) IU/L Alkaline Phosphatase 94 (38-126) U/L Total Creatine Kinase 57 (30-135) U/L CK-MB (CK-2) TNP CK-MB (CK-2) Rel Index TNP Troponin I 0.020 (0.01-0.034) ng/mL Total Protein 6.6 (6.3-8.2) g/dL Albumin 3.1 L (3.5-5.0) g/dL Globulin 3.5 (1.7-4.1) g/dL Albumin/Globulin Ratio 0.9 L (1.0-2.8) Lipase 12 L (23-300) U/L /18/ Range/Units 12:23 WBC (4.5-11.0) X10^3/uL RBC (4.0-5.2) X10^6/uL Hgb (12.0-16.0) g/dL Hct (36-46) % MCV (80-100) fL MCH (26-34) PG MCHC (30-36) % RDW (11.6-14.8) % Plt Count (150-400) X10^3/uL Neut % (Auto) (50-75) % Lymph % (Auto) (25-40) % Rhea % (Auto) (3-14) % Eos % (Auto) (2-4) % Baso % (Auto) (0-2) % Neut # (Auto) (9123-7571) /uL Lymph # (Auto) (5438-7525) /uL Rhea # (Auto) (0-900) /uL Eos # (Auto) (0-450) /uL Baso # (Auto) (0-100) /uL PT (10.1-12.7) SECONDS INR (0.9-1.3) APTT (26.4-36.2) SECONDS Sodium (137-145) mmol/L Potassium (3.4-5.1) mmol/L Chloride (98-107) mmol/L Carbon Dioxide (22-32) mmol/L BUN (7-17) mg/dL Creatinine (0.52-1.04) mg/dL Estimated GFR (>60) mL/min BUN/Creatinine Ratio (6-22) Glucose (80-110) mg/dL Calcium (8.4-10.2) mg/dL Magnesium 1.7 (1.6-2.3) mg/dL Total Bilirubin (0.2-1.3) mg/dL AST (14-36) IU/L ALT (<35) IU/L Alkaline Phosphatase (38-126) U/L Total Creatine Kinase (30-135) U/L CK-MB (CK-2) CK-MB (CK-2) Rel Index Troponin I (0.01-0.034) ng/mL Total Protein (6.3-8.2) g/dL Albumin (3.5-5.0) g/dL Globulin (1.7-4.1) g/dL Albumin/Globulin Ratio (1.0-2.8) Lipase (23-300) U/L Discharge Plan Departure Patient Disposition: Home Clinical Impression: Hypertension Qualifiers: Hypertension type: unspecified Qualified Code(s): I10 - Essential (primary) hypertension Clinical Impression: (Ruled Out): Nausea and vomiting Discharge Date/Time: 01/05/20 15:15 Instructions: DI for High Blood Pressure Activity Restrictions/Additional Instructions: Thank you for entrusting me with your care today. As discussed, your blood pressure was high today. However, your laboratory work, chest x-ray, and EKG are non-remarkable. Please follow-up with your primary care provider in the next few days for further evaluation and continued management of your high blood pressure. Return emergency department for any new or worsening symptoms such as has severe headaches, vision changes, uncontrollable vomiting, or any other concerns. Prescriptions: No Action atorvastatin 40 mg tablet 40 mg PO QPM RF: 0 cholecalciferol (vitamin D3) [Vitamin D3] 1,000 unit Capsule 3,000 unit PO DAILY RF: 0 insulin aspart U-100 [Novolog Flexpen U-100 Insulin] 100 UNIT/1 ML insulin pen 1 dose subcut QIDACHS RF: 0 hydralazine 10 mg Tablet 20 mg PO BID RF: 0 tizanidine 2 mg Tablet 2 mg PO Q8H PRN (Reason: Muscle Spasm) RF: 0 sucralfate 1 gram Tablet 1 g PO QID RF: 0 cyanocobalamin (vitamin B-12) 1,000 mcg Tablet 1,000 mcg PO DAILY RF: 0 tramadol 50 mg tablet 50 mg PO BID PRN (Reason: Pain (Scale Score 7-10)) RF: 0 spironolactone 25 mg tablet 25 mg PO DAILY RF: 0 pantoprazole 40 mg tablet,delayed release (DR/EC) 40 mg PO BID RF: 0 ondansetron 4 mg tablet,disintegrating 8 mg PO Q6H PRN (Reason: nausea and vomiting) RF: 0 propranolol 20 mg tablet 20 mg PO DAILY RF: 0 Lantus U-100 Insulin 100 unit/mL Solution 11 unit SUBCUT DAILY RF: 0 polyethylene glycol 3350 17 gram Powder In Packet 17 gm PO DAILY 15 Days RF: 0 lisinopril 20 mg Tablet 40 mg PO DAILY 30 Days RF: 0 aspirin 81 mg Tablet,Delayed Release (Dr/Ec) 81 mg PO BID Qty: 30 RF: 0 docusate sodium [DOK] 100 mg Capsule 100 mg PO BID Qty: 14 RF: 0 mirtazapine 15 mg Tablet 15 mg PO BEDTIME 30 Days RF: 0 oxybutynin chloride 5 mg Tablet 5 mg PO BEDTIME 30 Days RF: 0 oxycodone 5 mg Tablet 5 mg PO Q3HR PRN (Reason: Pain, Moderate (4-6)) Qty: 15 RF: 0 calcium carbonate-vitamin D3 [Oyster Shell Calcium-Vit D3] 500 mg(1,250mg) -200 unit Tablet 1 ea PO BIDWM 30 Days Qty: 30 RF: 0 Referrals: Jyoti Streeter MD [Primary Care Provider] - <Corey Leon MD - Last Filed: 01/06/20 13:19> Cosign ED Attending Cosignature Attestation: I was immediately available in the department for consultation. This documentation has been reviewed and I agree with assessment and plan. Supervised by Corey Leon MD
[2020-01-05 12:40] LABS: HEMOLYSIS 15 (0-50)
[2020-01-05 12:41] LABS: INR 0.8 (0.9-1.3); Prothrombin Time 9.7 SECONDS (10.1-12.7)
[2020-01-05 12:42] LABS: Add Manual Diff / Slide Review NO; Basophils Absolute Auto 100 /uL (0-100); Basophils Percent Auto 0.5 % (0-2); Eosinophils Absolute Auto 200 /uL (0-450); Eosinophils Percent Auto 2.3 % (2-4); Hematocrit 33.9 % (36-46); Lymphocytes Absolute Auto 2200 /uL (1100-4500); Lymphocytes Percent Auto 20.2 % (25-40); Mean Corpuscular HGB Conc 32.3 % (30-36); Mean Corpuscular Hemoglobin 27.6 PG (26-34); Mean Corpuscular Volume 85.2 fL (80-100); Monocytes Absolute Auto 800 /uL (0-900); Monocytes Percent Auto 7.4 % (3-14); Neutrophils Absolute Auto 7400 /uL (1500-7000); Neutrophils Percent Auto 69.6 % (50-75); Platelet Count 485 X10^3/uL (150-400); Red Blood Cell Count 3.98 X10^6/uL (4.0-5.2); Red Cell Distribution Width 15.8 % (11.6-14.8); White Blood Cell Count 10.7 X10^3/uL (4.5-11.0)
[2020-01-05 12:44] LABS: PTT Partial Thromboplastin Tim 24 SECONDS (26.4-36.2)
[2020-01-05 12:45] LABS: Alanine Aminotransferase 14 IU/L (<35); Albumin 3.1 g/dL (3.5-5.0); Albumin Globulin Ratio 0.9 (1.0-2.8); Alkaline Phosphatase 94 U/L (38-126); Aspartate Aminotransferase 27 IU/L (14-36); BUN Creatinine Ratio 15.9 (6-22); Bilirubin Total 0.6 mg/dL (0.2-1.3); Blood Urea Nitrogen 18 mg/dL (7-17); Calcium 8.9 mg/dL (8.4-10.2); Carbon Dioxide 25 mmol/L (22-32); Chloride 107 mmol/L (98-107); Creatine Kinase 57 U/L (30-135); Estimated Glomerular Filt Rate 48.6 mL/min (>60); Globulin 3.5 g/dL (1.7-4.1); Glucose 142 mg/dL (80-110); Lipase 12 U/L (23-300); Potassium 4.4 mmol/L (3.4-5.1); Sodium 135 mmol/L (137-145); Total Protein 6.6 g/dL (6.3-8.2)
[2020-01-05 12:46] LABS: Magnesium 1.7 mg/dL (1.6-2.3)
[2020-01-05] MEDS: HYDRALAZINE 20 MG/ML VIAL 10 MG IV (13:38)
== END 2020-01-05 15:15 | disposition home or self-care (01) ==
PROVIDERS: Emergency Provider Nurse Practitioner; PCP Family Medicine
DX: I12.9 Hypertensive chronic kidney disease with stage 1 through stage 4 chronic kidney disease, or unspecified chronic kidney disease (principal); N18.9 Chronic kidney disease, unspecified; R07.9 Chest pain, unspecified
CPT/HCPCS: 36415; 71045; 80053; 82550; 83690; 83735; 84484; 85025; 85610; 85730; 93005; 93010; 96374; 99284; J0360

== ENCOUNTER → 2020-01-08 10:32 | Outpatient (ROUT) | payer MEDICARE, MEDICAID, SELFPAY ==
[2019-12-26 16:38] VITALS: BMI 19.1
[2020-01-09 08:59] LABS: COVID19 Sendout Not Detected (Not Detect)
== END ==
PROVIDERS: PCP Family Medicine; Visit Provider Internal Medicine
DX: Z11.59 Encounter for screening for other viral diseases (principal)
CPT/HCPCS: 87635

== ENCOUNTER → 2020-01-13 11:43 | Outpatient (CLI) | payer MEDICARE, MEDICAID, SELFPAY ==
[2019-12-26 16:38] VITALS: BMI 19.1
--- NOTE | 2020-01-13 | DI.RAD.S_ITS ---
PROCEDURE: XR HIP W PEL IF DONE LT 2V INDICATIONS: XR AP PELVIS AND LEFT HIP TECHNIQUE: AP pelvis and lateral view of the left hip acquired. COMPARISON: [facility], [place], XR PELVIS 1-2V, 12/26/2019, 15:27. [facility], [place], XR HIP W PEL IF DONE LT 2V, 12/26/2019, 8:18. FINDINGS: Bones: Patient is status post left hip arthroplasty, with hardware components in expected positions. The hip joint appears congruent. The visualized bony structures appear intact. Soft tissues: Recent postoperative changes are noted. No suspicious soft tissue densities. IMPRESSION: Normal alignment maintained after left total hip arthroplasty 12/26/19. Dictated by: Merrick Toussaint M.D. on 01/13/2020 at 12:19 Approved by: Merrick Toussaint M.D. on 01/13/2020 at 12:20
== END ==
PROVIDERS: PCP Family Medicine; Referring Provider Family Medicine; Visit Provider Orthopaedic Surgery
DX: M84.452D Pathological fracture, left femur, subsequent encounter for fracture with routine healing (principal); Z96.642 Presence of left artificial hip joint
CPT/HCPCS: 73502

== ENCOUNTER 2020-03-07 15:26 | Emergency (ER) | payer MEDICARE, MEDICAID, SELFPAY ==
[2019-12-26 16:38] VITALS: BMI 19.1
[2020-03-07] VITALS (10 sets, daily range): BP systolic 133–167; BP diastolic 62–82; PULSE 62–81; RESP 8–26; TEMP 36.8; O2SAT 97–100; BMI 20.5
--- NOTE | 2020-03-07 15:57 | DI.RAD.S_ITS ---
PROCEDURE: XR CHEST 1V INDICATIONS: fall TECHNIQUE: One view of the chest was acquired. COMPARISON: [facility], CR, XR CHEST 1V, 01/05/2020, 12:34. FINDINGS: Surgical changes and devices: None. Lungs and pleura: Lungs are clear. No pleural effusions or pneumothorax. Mediastinum: Mediastinal contours appear normal. Heart size is normal. Bones and chest wall: There is an old left femoral neck fracture with internal fixation. No suspicious bony lesions. Overlying soft tissues appear unremarkable. IMPRESSION: No acute cardiopulmonary disease. Dictated by: Aristeo Mendoza M.D. on 03/07/2020 at 17:11 Approved by: Aristeo Mendoza M.D. on 03/07/2020 at 17:12
--- NOTE | 2020-03-07 15:57 | DI.RAD.S_ITS ---
PROCEDURE: XR PELVIS 1-2V INDICATIONS: fall TECHNIQUE: 1 view(s) of the pelvis acquired. COMPARISON: [facility], CR, XR HIP W PEL IF DONE LT 2V, 01/13/2020, 11:37. [facility], CR, XR PELVIS 1-2V, 12/26/2019, 15:27. FINDINGS: Bones: No fractures or dislocations. No suspicious bony lesions. There is moderate bilateral SI joint and right hip joint degeneration. Soft tissues: Visualized bowel gas pattern is normal. Vascular calcifications consistent with atherosclerosis. IMPRESSION: No fracture or dislocation. If clinical symptoms persist or clinical suspicion for fracture is high, advanced imaging such as CT or MRI is suggested for further evaluation. Dictated by: Aristeo Mendoza M.D. on 03/07/2020 at 17:15 Approved by: Aristeo Mendoza M.D. on 03/07/2020 at 17:17
--- NOTE | 2020-03-07 15:57 | DI.CT.S_ITS ---
PROCEDURE: CT CERVICAL SPINE WO CON INDICATIONS: fall, cofusion TECHNIQUE: Noncontrast 3 mm thick sections acquired from the skull base to the T4 level. Sagittal and coronal reformats were then constructed. For radiation dose reduction, the following was used: automated exposure control, adjustment of mA and/or kV according to patient size. COMPARISON: [facility], CT, CT CHEST WITHOUT CONTRAST, 05/13/2018, 18:40. [facility], CT, CT CERVICAL SPINE WO CON, 04/19/2019, 11:38. FINDINGS: Image quality: Excellent. Bones: No fractures or dislocations. There is grade 1 anterolisthesis of C4 on C5 and C5 on C6. Mild -to-moderate degenerative disc disease is present in cervical spine, most pronounced at C6-C7. There is bilateral facet arthropathy at C3-C4, C4-C5, C5-C6 and C6-C7. Visualized superior ribs are intact. Soft tissues: Prevertebral soft tissues are normal in thickness. No paravertebral hematomas. No apical pneumothoraces. There is a 7 mm ground-glass density in the left upper lobe. Moderate atherosclerosis. IMPRESSION: 1. No cervical spine fractures. 2. A 7 mm ground-glass density in the left upper lobe. Please see in close follow-up recommendation. Fleischner Society criteria for SUB-SOLID lung nodule followup. Solitary pure ground-glass nodules5 mm or lessNo followup needed. >5 mm3 mo follow-up CT to confirm persistence. Then annual CT for 3 years. Part-solid nodules3 mo follow-up CT to confirm persistence. If persistent with solid component <5 mm, annual CT for at least 3 years. If solid component is 5 mm or more, biopsy or surgical resection. Consider PET-CT for lesions > 10 mm. Multiple sub-solid nodulesPure ground glass nodules [address] at 2 and 4 years. Pure ground glass nodules >5 mm without dominant lesion. [address] to confirm persistence, then annual followup CT for at least 3 years. Dominant nodule(s) with part-solid or solid component. [address] to confirm persistence. If persistent, consider biopsy or surgical resection, cole if lesions have >5 mm solid component. Dictated by: Aristeo Mendoza M.D. on 03/07/2020 at 16:59 Approved by: Aristeo Mendoza M.D. on 03/07/2020 at 17:11
--- NOTE | 2020-03-07 15:58 | DI.CT.S_ITS ---
PROCEDURE: CT HEAD/BRAIN WO CON INDICATIONS: confusion, fall TECHNIQUE: Noncontrast 4.5 mm thick angled axial sections acquired from the foramen magnum to the vertex, with coronal and sagittal reformats. For radiation dose reduction, the following was used: automated exposure control, adjustment of mA and/or kV according to patient size. COMPARISON: [facility], CT, CT HEAD/BRAIN WO CON, 08/23/2019, 19:19. FINDINGS: Image quality: Excellent. CSF spaces: Basal cisterns are patent. No extra-axial fluid collections. The ventricles are symmetric in size and shape. Brain: No intracranial bleeds or masses. Old lacunar infarcts are noted in bilateral basal ganglia and right thalamus. There is cerebral volume loss for age, with resultant ventricular and sulcal prominence. There are periventricular and deep white matter chronic small vessel ischemic changes. There is intracranial internal carotid artery atherosclerosis. Skull and face: Calvarium and visualized facial bones appear intact, without suspicious lesions. Sinuses: Visualized sinuses and mastoids are clear. IMPRESSION: 1. No CT evidence of acute intracranial pathology. 2. No significant changes from 2019 study. Dictated by: Antwon Redd M.D. on 03/07/2020 at 15:32 Approved by: Antwon Redd M.D. on 03/07/2020 at 15:33
[2020-03-07 16:49] LABS: Add Manual Diff / Slide Review NO; Basophils Absolute Auto 0 /uL (0-100); Basophils Percent Auto 0.2 % (0-2); Eosinophils Absolute Auto 0 /uL (0-450); Hematocrit 33.5 % (36-46); Lymphocytes Absolute Auto 1000 /uL (1100-4500); Lymphocytes Percent Auto 7.2 % (25-40); Mean Corpuscular HGB Conc 32.8 % (30-36); Mean Corpuscular Hemoglobin 27.9 PG (26-34); Mean Corpuscular Volume 84.9 fL (80-100); Monocytes Absolute Auto 1100 /uL (0-900); Monocytes Percent Auto 7.8 % (3-14); Neutrophils Absolute Auto 12400 /uL (1500-7000); Neutrophils Percent Auto 84.8 % (50-75); Platelet Count 245 X10^3/uL (150-400); Red Blood Cell Count 3.94 X10^6/uL (4.0-5.2); Red Cell Distribution Width 16.7 % (11.6-14.8); White Blood Cell Count 14.6 X10^3/uL (4.5-11.0)
[2020-03-07 16:59] LABS: Prothrombin Time 11.6 SECONDS (10.1-12.7)
[2020-03-07 17:02] LABS: PTT Partial Thromboplastin Tim 26 SECONDS (26.4-36.2)
[2020-03-07 17:04] LABS: Alanine Aminotransferase 479 IU/L (<35); Albumin 3.2 g/dL (3.5-5.0); Alkaline Phosphatase 290 U/L (38-126); Aspartate Aminotransferase 576 IU/L (14-36); BUN Creatinine Ratio 29.1 (6-22); Bilirubin Total 0.7 mg/dL (0.2-1.3); Blood Urea Nitrogen 30 mg/dL (7-17); Calcium 9.2 mg/dL (8.4-10.2); Carbon Dioxide 17 mmol/L (22-32); Chloride 108 mmol/L (98-107); Creatine Kinase 46 U/L (30-135); Estimated Glomerular Filt Rate 53.9 mL/min (>60); Ethanol (ETOH) < 10 mg/dL; Globulin 3.1 g/dL (1.7-4.1); Glucose 289 mg/dL (80-110); HEMOLYSIS 26 (0-50); Potassium 3.3 mmol/L (3.4-5.1); Sodium 131 mmol/L (137-145); Total Protein 6.3 g/dL (6.3-8.2)
[2020-03-07 17:05] LABS: Lactate (Lactic Acid) 1.8 mmol/L (0.7-2.1)
[2020-03-07 17:15] LABS: NT-proBNP (BNP-Adult 18+) 12900 pg/mL (<125); Troponin I 0.029 ng/mL (0.01-0.034)
[2020-03-07 17:33] LABS: Ammonia (NH3) < 9 umol/L (9-30)
[2020-03-07 17:35] LABS: Thyroid Stimulating Hormone 1.45 uIU/mL (0.47-4.68)
[2020-03-07 18:09] LABS: Lipase 11 U/L (23-300)
[2020-03-07] MEDS: SODIUM CHLORIDE 0.9% 500 ML 1000 ML IV (18:20)
[2020-03-07 19:23] LABS: UR Morphine/Opiate cutoff 300 Negative (Negative); Ur Creatinine Normal (Normal); Ur Specific Gravity Normal (Normal); Urine Amphetamines Negative (Negative); Urine Barbiturates Negative (Negative); Urine Benzodiazepines Negative (Negative); Urine Cocaine Negative (Negative); Urine MDMA Negative (Negative); Urine Methadone Negative (Negative); Urine Methamphetamines Negative (Negative); Urine Oxycodone Negative (Negative); Urine Phencyclidine Negative (Negative); Urine Tetrahydrocannabinol Negative (Negative); Urine Tricyclic Antidepressant Negative (Negative); Urine pH Normal (Normal)
[2020-03-07 20:00] LABS: RBC Urine 0-1/HPF (0-5/HPF); Squamous Epithelial Cell Urine 1-5 /HPF (0-5/HPF); WBC Urine 0-1/HPF (0-5/HPF)
[2020-03-07 20:01] LABS: Amorphous Sediment Urine 1+; Bacteria Urine Occasional (0-1); Culture Indicated Urine Cult Not Indicated
--- NOTE | 2020-03-07 20:19 | PC.NURSE ---
pt walked with walker, steady gait without assist
--- NOTE | 2020-03-07 20:55 | ED.FALL ---
HPI - Fall <Shwetha Garcia AMMUNITION OFFICER-BC - Last Filed: 03/07/20 21:11> General Chief Complaint: Fall Stated Complaint: GLF Time Seen by Provider: 03/07/20 15:37 Source: patient and EMS Mode of arrival: EMS Limitations: no limitations History of Present Illness HPI Narrative: The patient is a 65-year-old female current smoker with a complicated medical history including type 2 diabetes, hyperlipidemia, memory changes, chronic alcoholic pancreatitis, alcohol abuse, early cirrhosis, and a head bleed who presents with a chief complaint concern after sliding out of bed. She has history of a hip fracture and is concerned that she slid out of her bed while sitting on the side landing on her backside. Her is also concerned about her steady decline in mental status and physical capabilities ongoing since 2007. He states that today she ?shit her pants and did not know why. The patient admits that she had a bowel movement in her briefs today. Additionally her blood sugars for over 600 at home this morning. He is concerned that the patient does not know year it is and is concerned about her mental status. The patient herself denies any pain, denies any complaints. She denies any chest pain shortness of breath nausea vomiting diarrhea abdominal pain. She is requesting that her hips be checked because she fell. She denies hitting her head, any neck or back pain. Related Data Home Medications Medication Instructions Recorded Confirmed atorvastatin 40 mg PO QPM 10/08/17 12/26/19 cholecalciferol (vitamin D3) 3,000 unit PO DAILY 10/08/17 12/26/19 [Vitamin D3] insulin aspart U-100 [Novolog 1 dose SUBCUT QIDACHS 10/08/17 12/26/19 Flexpen U-100 Insulin] cyanocobalamin (vitamin B-12) 1,000 mcg PO DAILY 08/02/19 12/26/19 hydralazine 20 mg PO BID 08/02/19 12/26/19 sucralfate 1 g PO QID 08/02/19 12/26/19 tizanidine 2 mg PO Q8H PRN 08/02/19 12/26/19 Lantus U-100 Insulin 11 unit SUBCUT DAILY 12/26/19 12/26/19 ondansetron 8 mg PO Q6H PRN 12/26/19 12/26/19 pantoprazole 40 mg PO BID 12/26/19 12/26/19 propranolol 20 mg PO DAILY 12/26/19 12/26/19 spironolactone 25 mg PO DAILY 12/26/19 12/26/19 tramadol 50 mg PO BID PRN 12/26/19 12/26/19 Previous Rx's Medication Instructions Recorded aspirin 81 mg PO BID #30 tab 12/29/19 docusate sodium [DOK] 100 mg PO BID #14 cap 12/29/19 oxycodone 5 mg PO Q3HR PRN #15 tab 12/29/19 Allergies Allergy/AdvReac Type Severity Reaction Status Date / Time Iodine and Iodide Containing Allergy Unknown Verified 01/05/20 12:16 Produc [IODINE AND IODIDE CONTAINING PRODUC] latex [LATEX] Allergy Unknown Verified 01/05/20 12:16 Review of Systems <BEATA Mcdonnell - Last Filed: 03/07/20 21:11> Review of Systems Narrative: GENERAL: See HPI. HEENT: Denies sinus pain, ear pain, sore throat, difficulty swallowing, dizziness. RESPIRATORY: Denies dyspnea, cough, wheezing, hemoptysis, sputum. CARDIOVASCULAR: Denies chest pain, palpitations, orthopnea, edema, GASTROINTESTINAL: See HPI : Denies dysuria, frequency, incontinence, hematuria, urinary retention. MUSCULOSKELETAL: denies weakness, joint pain, or bony pain SKIN: Denies rash, skin lesions, or other NEUROLOGIC: See HPI PSYCHIATRIC: No concerning psychosocial issues. 12 point review of systems is negative except for those stated above Patient History <BEATA Mcdonnell - Last Filed: 03/07/20 21:11> Medical History Dow's esophagus with esophagitis (Acute) CVA (cerebral vascular accident) (Acute) Dementia (Acute) Diabetes (Acute) Gallbladder disease (Chronic) GERD (gastroesophageal reflux disease) (Acute) Hyperlipidemia (Acute) Hypertension (Acute) Overactive bladder (Acute) Subdural hematoma (Acute) Upper GI bleed (Acute) Surgical History History of cholecystectomy (Acute) Tubal ligation status (Acute) Family History Mother Heart disease Father No problems noted. Social History household members: significant other Smoking Status: Current some day smoker alcohol intake: former Smoking Status: Current some day smoker tobacco type: cigarettes alcohol intake frequency: holidays/special occasions only Alcohol type: hard liquor Substance Use Type: does not use Exam <BEATA Mcdonnell - Last Filed: 03/07/20 21:11> Narrative Exam Narrative: GENERAL: This is a well-nourished, well-developed patient, no acute distress HEAD: Atraumatic. Normocephalic. No temporal or scalp tenderness. EYES: Pupils equal round and reactive. Extraocular motions intact. No scleral icterus. No injection or drainage. ENT: Nose without bleeding, purulent drainage or septal hematoma. Throat without erythema, tonsillar hypertrophy or exudate. Uvula midline. Airway patent. Dry mucous membranes noted NECK: Trachea midline. No JVD or lymphadenopathy. Supple, nontender, no meningeal signs. CARDIOVASCULAR: Regular rate and rhythm RESPIRATORY: Clear to auscultation. Breath sounds equal bilaterally. No wheezes, rales, or rhonchi. No cough. No increased respiratory effort. No accessory muscle use. GASTROINTESTINAL: Abdomen soft, non-tender, nondistended. No hepato-splenomegaly, or palpable masses. No guarding. EXTREMITIES: No clubbing, cyanosis, or edema. No joint tenderness, effusion, or edema noted. BACK: No CT or L-spine pain to palpation Nontender without deformity or crepitance. No flank tenderness. NEURO: Alert to name, location, month, day of week. Not oriented to year. Knows her birthday but not her spouse's. Negative Romberg. Steady gait. Strength is equal upper and lower extremities bilaterally. SKIN: No rash or erythema. Initial Vital Signs Initial Vital Signs: Vital Signs Temperature 98.3 F 03/07/20 15:26 Pulse Rate 81 03/07/20 15:26 Respiratory Rate 16 03/07/20 15:26 Blood Pressure 154/76 H 03/07/20 15:26 Pulse Oximetry 99 03/07/20 15:26 <Brown Gonsales DO - Last Filed: 03/08/20 07:04> Initial Vital Signs Initial Vital Signs: Vital Signs Temperature 98.3 F 03/07/20 15:26 Pulse Rate 81 03/07/20 15:26 Respiratory Rate 16 03/07/20 15:26 Blood Pressure 154/76 H 03/07/20 15:26 Pulse Oximetry 99 03/07/20 15:26 Scores <BEATA Mcdonnell - Last Filed: 03/07/20 21:11> GCS Maira coma scale eye opening: Spontaneous Jackson coma scale verbal response: Orientated Jackson coma scale motor response: Obey commands Maira coma scale total score: 15 NIH Stroke Scale Level of Conciousness: Alert, keenly responsive Ask month/age: Answers both questions correctly. Open/close eyes, close hand: Performs both tasks correctly Best gaze horizontal: Normal Visual cuevas: No visual loss Facial palsy: Normal symetrical movement Left arm drift: No drift for full 10 sec Right arm drift: No drift for full 10 sec Left leg drift: No drift for full 5 sec Right leg drift: No drift for full 5 sec Limb ataxia: Absent Sensory on face/arms/legs: Normal, no sensory loss Best language: No aphasia, normal Dysarthria: Normal Extinction or inattention: No abnormality Total NIH Stroke scale score: 0 Course <EBATA Mcdonnell - Last Filed: 03/07/20 21:11> Orders Ordered: Discontinued Medications Sodium Chloride (Normal Saline 0.9%) 500 mls @ 1,000 mls/hr IV BOLUS ONE Stop: 03/07/20 18:54 Last Infusion: 03/07/20 19:30 Dose: 0 mls/hr Documented by: Admin: 03/07/20 18:20 Dose: 1,000 mls/hr Documented by: BREANNE Vital Signs Vital signs: Vital Signs - 8 hr 03/07/20 15:26 03/07/20 16:22 03/07/20 16:30 Temperature 98.3 F Pulse Rate 81 72 70 Respiratory Rate 16 8 L Blood Pressure 154/76 H 167/80 H 154/82 H Pulse Oximetry 99 99 99 03/07/20 17:00 03/07/20 17:30 03/07/20 18:00 Temperature Pulse Rate 68 66 69 Respiratory Rate 25 H 24 24 Blood Pressure 167/80 H 161/73 H 149/68 H Pulse Oximetry 100 100 99 03/07/20 18:30 03/07/20 19:00 03/07/20 19:30 Temperature Pulse Rate 67 64 64 Respiratory Rate 22 26 H 18 Blood Pressure 133/62 142/78 H 138/73 Pulse Oximetry 100 97 100 03/07/20 20:00 Temperature Pulse Rate 62 Respiratory Rate 21 Blood Pressure 135/74 Pulse Oximetry 100 <Brown Gonsales DO - Last Filed: 03/08/20 07:04> Orders Ordered: Discontinued Medications Sodium Chloride (Normal Saline 0.9%) 500 mls @ 1,000 mls/hr IV BOLUS ONE Stop: 03/07/20 18:54 Last Infusion: 03/07/20 19:30 Dose: 0 mls/hr Documented by: Admin: 03/07/20 18:20 Dose: 1,000 mls/hr Documented by: BREANNE Vital Signs Vital signs: Vital Signs - 8 hr 03/07/20 15:26 03/07/20 16:22 03/07/20 16:30 Temperature 98.3 F Pulse Rate 81 72 70 Respiratory Rate 16 8 L Blood Pressure 154/76 H 167/80 H 154/82 H Pulse Oximetry 99 99 99 03/07/20 17:00 03/07/20 17:30 03/07/20 18:00 Temperature Pulse Rate 68 66 69 Respiratory Rate 25 H 24 24 Blood Pressure 167/80 H 161/73 H 149/68 H Pulse Oximetry 100 100 99 03/07/20 18:30 03/07/20 19:00 03/07/20 19:30 Temperature Pulse Rate 67 64 64 Respiratory Rate 22 26 H 18 Blood Pressure 133/62 142/78 H 138/73 Pulse Oximetry 100 97 100 03/07/20 20:00 Temperature Pulse Rate 62 Respiratory Rate 21 Blood Pressure 135/74 Pulse Oximetry 100 MDM - Fall <NESSA McdonnellBC - Last Filed: 03/07/20 21:11> Lab Data Attestation: I reviewed the patient's lab results. Result diagrams: 03/07/20 16:39 03/07/20 16:39 Labs: Lab Results 03/07/20 03/07/20 03/07/20 Range/Units 16:39 16:39 16:39 WBC 14.6 H (4.5-11.0) X10^3/uL RBC 3.94 L (4.0-5.2) X10^6/uL Hgb 11.0 L (12.0-16.0) g/dL Hct 33.5 L (36-46) % MCV 84.9 (80-100) fL MCH 27.9 (26-34) PG MCHC 32.8 (30-36) % RDW 16.7 H (11.6-14.8) % Plt Count 245 (150-400) X10^3/uL Neut % (Auto) 84.8 H (50-75) % Lymph % (Auto) 7.2 L (25-40) % [place] % (Auto) 7.8 (3-14) % Eos % (Auto) 0.0 L (2-4) % Baso % (Auto) 0.2 (0-2) % Neut # (Auto) 23517 H (1976-8899) /uL Lymph # (Auto) 1000 L (2139-8863) /uL [place] # (Auto) 1100 H (0-900) /uL Eos # (Auto) 0 (0-450) /uL Baso # (Auto) 0 (0-100) /uL PT 11.6 (10.1-12.7) SECONDS INR 1.0 (0.9-1.3) APTT 26 L D (26.4-36.2) SECONDS Sodium 131 L (137-145) mmol/L Potassium 3.3 L (3.4-5.1) mmol/L Chloride 108 H (98-107) mmol/L Carbon Dioxide 17 L (22-32) mmol/L BUN 30 H (7-17) mg/dL Creatinine 1.03 (0.52-1.04) mg/dL Estimated GFR 53.9 L (>60) mL/min BUN/Creatinine Ratio 29.1 H (6-22) Glucose 289 H (80-110) mg/dL Lactate (0.7-2.1) mmol/L Calcium 9.2 (8.4-10.2) mg/dL Total Bilirubin 0.7 (0.2-1.3) mg/dL AST 576 H (14-36) IU/L ALT 479 H (<35) IU/L Alkaline Phosphatase 290 H (38-126) U/L Ammonia (9-30) umol/L Total Creatine Kinase 46 (30-135) U/L CK-MB (CK-2) TNP CK-MB (CK-2) Rel Index TNP Troponin I 0.029 (0.01-0.034) ng/mL NT-Pro-B Natriuret Pep 10821 H (<125) pg/mL Total Protein 6.3 (6.3-8.2) g/dL Albumin 3.2 L (3.5-5.0) g/dL Globulin 3.1 (1.7-4.1) g/dL Albumin/Globulin Ratio 1.0 (1.0-2.8) Lipase (23-300) U/L TSH (0.47-4.68) uIU/mL Urine RBC (0-5/HPF) Urine WBC (0-5/HPF) Ur Squamous Epith Cells (0-5/HPF) Amorphous Sediment Urine Bacteria (None) Ur Culture Indicated? U Opiates 300ng/mL cut (Negative) Ur Oxycodone Screen (Negative) Urine Methadone Screen (Negative) Ur Barbiturates Screen (Negative) U Tricyclic Antidepress (Negative) Ur Phencyclidine Scrn (Negative) Ur Amphetamines Screen (Negative) U Methamphetamines Scrn (Negative) Ur MDMA Scrn (Ecstasy) (Negative) U Benzodiazepines Scrn (Negative) Urine Cocaine Screen (Negative) U Marijuana (THC) Screen (Negative) Ethyl Alcohol < 10 ( - 10) mg/dL 03/07/20 03/07/20 03/07/20 Range/Units 16:39 16:39 16:39 WBC (4.5-11.0) X10^3/uL RBC (4.0-5.2) X10^6/uL Hgb (12.0-16.0) g/dL Hct (36-46) % MCV (80-100) fL MCH (26-34) PG MCHC (30-36) % RDW (11.6-14.8) % Plt Count (150-400) X10^3/uL Neut % (Auto) (50-75) % Lymph % (Auto) (25-40) % [place] % (Auto) (3-14) % Eos % (Auto) (2-4) % Baso % (Auto) (0-2) % Neut # (Auto) (1268-6172) /uL Lymph # (Auto) (6878-7677) /uL [place] # (Auto) (0-900) /uL Eos # (Auto) (0-450) /uL Baso # (Auto) (0-100) /uL PT (10.1-12.7) SECONDS INR (0.9-1.3) APTT (26.4-36.2) SECONDS Sodium (137-145) mmol/L Potassium (3.4-5.1) mmol/L Chloride (98-107) mmol/L Carbon Dioxide (22-32) mmol/L BUN (7-17) mg/dL Creatinine (0.52-1.04) mg/dL Estimated GFR (>60) mL/min BUN/Creatinine Ratio (6-22) Glucose (80-110) mg/dL Lactate 1.8 (0.7-2.1) mmol/L Calcium (8.4-10.2) mg/dL Total Bilirubin (0.2-1.3) mg/dL AST (14-36) IU/L ALT (<35) IU/L Alkaline Phosphatase (38-126) U/L Ammonia (9-30) umol/L Total Creatine Kinase (30-135) U/L CK-MB (CK-2) CK-MB (CK-2) Rel Index Troponin I (0.01-0.034) ng/mL NT-Pro-B Natriuret Pep (<125) pg/mL Total Protein (6.3-8.2) g/dL Albumin (3.5-5.0) g/dL Globulin (1.7-4.1) g/dL Albumin/Globulin Ratio (1.0-2.8) Lipase 11 L (23-300) U/L TSH 1.45 (0.47-4.68) uIU/mL Urine RBC (0-5/HPF) Urine WBC (0-5/HPF) Ur Squamous Epith Cells (0-5/HPF) Amorphous Sediment Urine Bacteria (None) Ur Culture Indicated? U Opiates 300ng/mL cut (Negative) Ur Oxycodone Screen (Negative) Urine Methadone Screen (Negative) Ur Barbiturates Screen (Negative) U Tricyclic Antidepress (Negative) Ur Phencyclidine Scrn (Negative) Ur Amphetamines Screen (Negative) U Methamphetamines Scrn (Negative) Ur MDMA Scrn (Ecstasy) (Negative) U Benzodiazepines Scrn (Negative) Urine Cocaine Screen (Negative) U Marijuana (THC) Screen (Negative) Ethyl Alcohol ( - 10) mg/dL 03/07/20 03/07/20 03/07/20 Range/Units 17:06 18:45 18:45 WBC (4.5-11.0) X10^3/uL RBC (4.0-5.2) X10^6/uL Hgb (12.0-16.0) g/dL Hct (36-46) % MCV (80-100) fL MCH (26-34) PG MCHC (30-36) % RDW (11.6-14.8) % Plt Count (150-400) X10^3/uL Neut % (Auto) (50-75) % Lymph % (Auto) (25-40) % [place] % (Auto) (3-14) % Eos % (Auto) (2-4) % Baso % (Auto) (0-2) % Neut # (Auto) (4534-7885) /uL Lymph # (Auto) (7863-2386) /uL [place] # (Auto) (0-900) /uL Eos # (Auto) (0-450) /uL Baso # (Auto) (0-100) /uL PT (10.1-12.7) SECONDS INR (0.9-1.3) APTT (26.4-36.2) SECONDS Sodium (137-145) mmol/L Potassium (3.4-5.1) mmol/L Chloride (98-107) mmol/L Carbon Dioxide (22-32) mmol/L BUN (7-17) mg/dL Creatinine (0.52-1.04) mg/dL Estimated GFR (>60) mL/min BUN/Creatinine Ratio (6-22) Glucose (80-110) mg/dL Lactate (0.7-2.1) mmol/L Calcium (8.4-10.2) mg/dL Total Bilirubin (0.2-1.3) mg/dL AST (14-36) IU/L ALT (<35) IU/L Alkaline Phosphatase (38-126) U/L Ammonia < 9 L (9-30) umol/L Total Creatine Kinase (30-135) U/L CK-MB (CK-2) CK-MB (CK-2) Rel Index Troponin I (0.01-0.034) ng/mL NT-Pro-B Natriuret Pep (<125) pg/mL Total Protein (6.3-8.2) g/dL Albumin (3.5-5.0) g/dL Globulin (1.7-4.1) g/dL Albumin/Globulin Ratio (1.0-2.8) Lipase (23-300) U/L TSH (0.47-4.68) uIU/mL Urine RBC 0-1/hpf (0-5/HPF) Urine WBC 0-1/hpf (0-5/HPF) Ur Squamous Epith Cells 1-5 /hpf (0-5/HPF) Amorphous Sediment 1+ Urine Bacteria Occasional (0-1) (None) Ur Culture Indicated? Cult not indicated U Opiates 300ng/mL cut Negative (Negative) Ur Oxycodone Screen Negative (Negative) Urine Methadone Screen Negative (Negative) Ur Barbiturates Screen Negative (Negative) U Tricyclic Antidepress Negative (Negative) Ur Phencyclidine Scrn Negative (Negative) Ur Amphetamines Screen Negative (Negative) U Methamphetamines Scrn Negative (Negative) Ur MDMA Scrn (Ecstasy) Negative (Negative) U Benzodiazepines Scrn Negative (Negative) Urine Cocaine Screen Negative (Negative) U Marijuana (THC) Screen Negative (Negative) Ethyl Alcohol ( - 10) mg/dL Point of Care Testing Glucose POC 272 Urine Dip Bedside Urine Glucose 1000 mg/dl Bedside Urine Bilirubin - Negative Bedside Urine Ketone - Negative Urine Specific [place] 1.025 Bedside Urine Occult Blood + Bedside Urine pH 6.0 Bedside Urine Protein ++ 100 Bedside Urine Urobilinogen - Negative Bedside Urine Nitrite - Negative Bedside Urine Leukocytes - Negative Esterase Imaging Data CT scan - head: Radiologist's Impression: [address] [place] [id number] Scan Report Signed Patient: Kristine Moon RMR#: [id number] : 6Acct:[id number] Age/Sex: 65 / FDate of Service: 03/07/20 Loc: ED Accession Number: [id number] Procedure: CT head/brain wo con Ordering Provider: Shwetha Garcia-BC PROCEDURE: CT HEAD/BRAIN WO CON INDICATIONS: confusion, fall TECHNIQUE: Noncontrast 4.5 mm thick angled axial sections acquired from the foramen magnum to the vertex, with coronal and sagittal reformats. For radiation dose reduction, the following was used: automated exposure control, adjustment of mA and/or kV according to patient size. COMPARISON: [facility], CT, CT HEAD/BRAIN WO CON, 08/23/2019, 19:19. FINDINGS: Image quality: Excellent. CSF spaces: Basal cisterns are patent. No extra-axial fluid collections. The ventricles are symmetric in size and shape. Brain: No intracranial bleeds or masses. Old lacunar infarcts are noted in bilateral basal ganglia and right thalamus. There is cerebral volume loss for age, with resultant ventricular and sulcal prominence. There are periventricular and deep white matter chronic small vessel ischemic changes. There is intracranial internal carotid artery atherosclerosis. Skull and face: Calvarium and visualized facial bones appear intact, without suspicious lesions. Sinuses: Visualized sinuses and mastoids are clear. IMPRESSION: 1. No CT evidence of acute intracranial pathology. 2. No significant changes from 2019 study. Dictated by: Antwon Redd M.D. on 03/07/2020 at 15:32 Approved by: Antwon Redd M.D. on 03/07/2020 at 15:33 Pelvis x-ray: Radiologist's Impression: [address] [place] [address] XRay Report Signed Patient: Kristine Moon R#: [id number] : 6Acct:[id number] Age/Sex: 65 / FDate of Service: 03/07/20 Loc: ED Accession Number: [id number] Procedure: XR pelvis 1-2V Ordering Provider: Shwetha Garcia AMMUNITION OFFICER-BC PROCEDURE: XR PELVIS 1-2V INDICATIONS: fall TECHNIQUE: 1 view(s) of the pelvis acquired. COMPARISON: [facility], CR, XR HIP W PEL IF DONE LT 2V, 01/13/2020, 11:37. [facility], CR, XR PELVIS 1-2V, 12/26/2019, 15:27. FINDINGS: Bones: No fractures or dislocations. No suspicious bony lesions. There is moderate bilateral SI joint and right hip joint degeneration. Soft tissues: Visualized bowel gas pattern is normal. Vascular calcifications consistent with atherosclerosis. IMPRESSION: No fracture or dislocation. If clinical symptoms persist or clinical suspicion for fracture is high, advanced imaging such as CT or MRI is suggested for further evaluation. Dictated by: Aristeo Mendoza M.D. on 03/07/2020 at 17:15 Approved by: Aristeo Mendoza M.D. on 03/07/2020 at 17:17 Chest x-ray: Radiologist's Impression: [address] [place] [id number] XRay Report Signed Patient: Kristine Moon RMR#: [id number] : 1955cct:[id number] Age/Sex: 65 / FDate of Service: 03/07/20 Loc: ED Accession Number: [id number] Procedure: XR chest 1V Ordering Provider: Shwetha Garcia PROCEDURE: XR CHEST 1V INDICATIONS: fall TECHNIQUE: One view of the chest was acquired. COMPARISON: [facility], XR CHEST 1V, 01/05/2020, 12:34. FINDINGS: Surgical changes and devices: None. Lungs and pleura: Lungs are clear. No pleural effusions or pneumothorax. Mediastinum: Mediastinal contours appear normal. Heart size is normal. Bones and chest wall: There is an old left femoral neck fracture with internal fixation. No suspicious bony lesions. Overlying soft tissues appear unremarkable. IMPRESSION: No acute cardiopulmonary disease. Dictated by: Aristeo Mendoza M.D. on 03/07/2020 at 17:11 Approved by: Aristeo Mendoza M.D. on 03/07/2020 at 17:12 CT - cervical spine: Radiologist's Impression: [address] [place] [id number] Scan Report Signed Patient: Kristine Moon RMR#: [id number] : 6Acct:[id number] Age/Sex: 65 / FDate of Service: 03/07/20 Loc: ED Accession Number: [id number] Procedure: CT cervical spine wo con Ordering Provider: Shwetha Garcia PROCEDURE: CT CERVICAL SPINE WO CON INDICATIONS: fall, cofusion TECHNIQUE: Noncontrast 3 mm thick sections acquired from the skull base to the T4 level. Sagittal and coronal reformats were then constructed. For radiation dose reduction, the following was used: automated exposure control, adjustment of mA and/or kV according to patient size. COMPARISON: [facility], CT, CT CHEST WITHOUT CONTRAST, 05/13/2018, 18:40. [facility], CT, CT CERVICAL SPINE WO CON, 04/19/2019, 11:38. FINDINGS: Image quality: Excellent. Bones: No fractures or dislocations. There is grade 1 anterolisthesis of C4 on C5 and C5 on C6. Mild -to-moderate degenerative disc disease is present in cervical spine, most pronounced at C6-C7. There is bilateral facet arthropathy at C3-C4, C4-C5, C5-C6 and C6-C7. Visualized superior ribs are intact. Soft tissues: Prevertebral soft tissues are normal in thickness. No paravertebral hematomas. No apical pneumothoraces. There is a 7 mm ground-glass density in the left upper lobe. Moderate atherosclerosis. IMPRESSION: 1. No cervical spine fractures. 2. A 7 mm ground-glass density in the left upper lobe. Please see in close follow-up recommendation. Fleischner Society criteria for SUB-SOLID lung nodule followup. Solitary pure ground-glass nodules5 mm or lessNo followup needed. >5 mm3 mo follow-up CT to confirm persistence. Then annual CT for 3 years. Part-solid nodules3 mo follow-up CT to confirm persistence. If persistent with solid component <5 mm, annual CT for at least 3 years. If solid component is 5 mm or more, biopsy or surgical resection. Consider PET-CT for lesions > 10 mm. Multiple sub-solid nodulesPure ground glass nodules [address] at 2 and 4 years. Pure ground glass nodules >5 mm without dominant lesion. [address] to confirm persistence, then annual followup CT for at least 3 years. Dominant nodule(s) with part-solid or solid component. [address] to confirm persistence. If persistent, consider biopsy or surgical resection, cole if lesions have >5 mm solid component. Dictated by: Aristeo Mendoza M.D. on 03/07/2020 at 16:59 Approved by: Aristeo Mendoza M.D. on 03/07/2020 at 17:11 ECG Data Attestation: I personally reviewed and interpreted this ECG as follows: Interpretation: Sinus rhythm. Ventricular rate 72. P.r. interval 170. QRS 87.Viewed By Dr Gonsales MDM Narrative Medical decision making narrative: The patient is a 65-year-old female with a complicated medical history who presents with multiple concerns. The patient fell out of bed earlier today, does have history of a hip fracture. X-rays came back negative and the patient is ambulatory with steady gait and her walker. Her is concerned that her blood sugar was elevated over 600, but her anion gap is 6 in the emergency department, so she is not diabetic ketoacidosis. He is concerned about her mental status, but her urine has no signs of infection, her head CT is negative, and her NIH is 0. Her chest x-ray did find a lung nodule which I encouraged them to follow up with primary care provider regarding as she may need repeat imaging. Her labs illustrated transaminitis, but she has no abdominal pain to palpation has history of a cholecystectomy. She is afebrile slight leukocytosis but no obvious infection source. The patient denies pain throughout her stay in the emergency department requesting to go home. I discussed at length the patient's workup, lab work, transaminitis and findings with Dr Gonsales. Given that the patient does not have any acute findings, and is able to ambulate steadily with a walker, she was discharged with strict return precautions for any acute concerns as well as follow-up with primary care provider in the next few days. Her blood sugars have been in the 200s throughout her stay in the ER. I encouraged close follow-up of her blood sugars at home as well as coming back to the ER for any acute concerns. Patient has been of no questions or concerns upon discharge and state understanding of return precautions as well as follow-up care. <Brown Gonsales, DO - Last Filed: 03/08/20 07:04> Lab Data Labs: Lab Results 03/07/20 03/07/20 03/07/20 Range/Units 16:39 16:39 16:39 WBC 14.6 H (4.5-11.0) X10^3/uL RBC 3.94 L (4.0-5.2) X10^6/uL Hgb 11.0 L (12.0-16.0) g/dL Hct 33.5 L (36-46) % MCV 84.9 (80-100) fL MCH 27.9 (26-34) PG MCHC 32.8 (30-36) % RDW 16.7 H (11.6-14.8) % Plt Count 245 (150-400) X10^3/uL Neut % (Auto) 84.8 H (50-75) % Lymph % (Auto) 7.2 L (25-40) % [place] % (Auto) 7.8 (3-14) % Eos % (Auto) 0.0 L (2-4) % Baso % (Auto) 0.2 (0-2) % Neut # (Auto) 06756 H (7227-6520) /uL Lymph # (Auto) 1000 L (8448-9302) /uL [place] # (Auto) 1100 H (0-900) /uL Eos # (Auto) 0 (0-450) /uL Baso # (Auto) 0 (0-100) /uL PT 11.6 (10.1-12.7) SECONDS INR 1.0 (0.9-1.3) APTT 26 L D (26.4-36.2) SECONDS Sodium 131 L (137-145) mmol/L Potassium 3.3 L (3.4-5.1) mmol/L Chloride 108 H (98-107) mmol/L Carbon Dioxide 17 L (22-32) mmol/L BUN 30 H (7-17) mg/dL Creatinine 1.03 (0.52-1.04) mg/dL Estimated GFR 53.9 L (>60) mL/min BUN/Creatinine Ratio 29.1 H (6-22) Glucose 289 H (80-110) mg/dL Lactate (0.7-2.1) mmol/L Calcium 9.2 (8.4-10.2) mg/dL Total Bilirubin 0.7 (0.2-1.3) mg/dL AST 576 H (14-36) IU/L ALT 479 H (<35) IU/L Alkaline Phosphatase 290 H (38-126) U/L Ammonia (9-30) umol/L Total Creatine Kinase 46 (30-135) U/L CK-MB (CK-2) TNP CK-MB (CK-2) Rel Index TNP Troponin I 0.029 (0.01-0.034) ng/mL NT-Pro-B Natriuret Pep 61167 H (<125) pg/mL Total Protein 6.3 (6.3-8.2) g/dL Albumin 3.2 L (3.5-5.0) g/dL Globulin 3.1 (1.7-4.1) g/dL Albumin/Globulin Ratio 1.0 (1.0-2.8) Lipase (23-300) U/L TSH (0.47-4.68) uIU/mL Urine RBC (0-5/HPF) Urine WBC (0-5/HPF) Ur Squamous Epith Cells (0-5/HPF) Amorphous Sediment Urine Bacteria (None) Ur Culture Indicated? U Opiates 300ng/mL cut (Negative) Ur Oxycodone Screen (Negative) Urine Methadone Screen (Negative) Ur Barbiturates Screen (Negative) U Tricyclic Antidepress (Negative) Ur Phencyclidine Scrn (Negative) Ur Amphetamines Screen (Negative) U Methamphetamines Scrn (Negative) Ur MDMA Scrn (Ecstasy) (Negative) U Benzodiazepines Scrn (Negative) Urine Cocaine Screen (Negative) U Marijuana (THC) Screen (Negative) Ethyl Alcohol < 10 ( - 10) mg/dL 03/07/20 03/07/20 03/07/20 Range/Units 16:39 16:39 16:39 WBC (4.5-11.0) X10^3/uL RBC (4.0-5.2) X10^6/uL Hgb (12.0-16.0) g/dL Hct (36-46) % MCV (80-100) fL MCH (26-34) PG MCHC (30-36) % RDW (11.6-14.8) % Plt Count (150-400) X10^3/uL Neut % (Auto) (50-75) % Lymph % (Auto) (25-40) % [place] % (Auto) (3-14) % Eos % (Auto) (2-4) % Baso % (Auto) (0-2) % Neut # (Auto) (8670-4223) /uL Lymph # (Auto) (3732-9566) /uL [place] # (Auto) (0-900) /uL Eos # (Auto) (0-450) /uL Baso # (Auto) (0-100) /uL PT (10.1-12.7) SECONDS INR (0.9-1.3) APTT (26.4-36.2) SECONDS Sodium (137-145) mmol/L Potassium (3.4-5.1) mmol/L Chloride (98-107) mmol/L Carbon Dioxide (22-32) mmol/L BUN (7-17) mg/dL Creatinine (0.52-1.04) mg/dL Estimated GFR (>60) mL/min BUN/Creatinine Ratio (6-22) Glucose (80-110) mg/dL Lactate 1.8 (0.7-2.1) mmol/L Calcium (8.4-10.2) mg/dL Total Bilirubin (0.2-1.3) mg/dL AST (14-36) IU/L ALT (<35) IU/L Alkaline Phosphatase (38-126) U/L Ammonia (9-30) umol/L Total Creatine Kinase (30-135) U/L CK-MB (CK-2) CK-MB (CK-2) Rel Index Troponin I (0.01-0.034) ng/mL NT-Pro-B Natriuret Pep (<125) pg/mL Total Protein (6.3-8.2) g/dL Albumin (3.5-5.0) g/dL Globulin (1.7-4.1) g/dL Albumin/Globulin Ratio (1.0-2.8) Lipase 11 L (23-300) U/L TSH 1.45 (0.47-4.68) uIU/mL Urine RBC (0-5/HPF) Urine WBC (0-5/HPF) Ur Squamous Epith Cells (0-5/HPF) Amorphous Sediment Urine Bacteria (None) Ur Culture Indicated? U Opiates 300ng/mL cut (Negative) Ur Oxycodone Screen (Negative) Urine Methadone Screen (Negative) Ur Barbiturates Screen (Negative) U Tricyclic Antidepress (Negative) Ur Phencyclidine Scrn (Negative) Ur Amphetamines Screen (Negative) U Methamphetamines Scrn (Negative) Ur MDMA Scrn (Ecstasy) (Negative) U Benzodiazepines Scrn (Negative) Urine Cocaine Screen (Negative) U Marijuana (THC) Screen (Negative) Ethyl Alcohol ( - 10) mg/dL 1003/07/20 03/07/20 Range/Units 17:06 18:45 18:45 WBC (4.5-11.0) X10^3/uL RBC (4.0-5.2) X10^6/uL Hgb (12.0-16.0) g/dL Hct (36-46) % MCV (80-100) fL MCH (26-34) PG MCHC (30-36) % RDW (11.6-14.8) % Plt Count (150-400) X10^3/uL Neut % (Auto) (50-75) % Lymph % (Auto) (25-40) % [place] % (Auto) (3-14) % Eos % (Auto) (2-4) % Baso % (Auto) (0-2) % Neut # (Auto) (8463-6445) /uL Lymph # (Auto) (6500-1676) /uL [place] # (Auto) (0-900) /uL Eos # (Auto) (0-450) /uL Baso # (Auto) (0-100) /uL PT (10.1-12.7) SECONDS INR (0.9-1.3) APTT (26.4-36.2) SECONDS Sodium (137-145) mmol/L Potassium (3.4-5.1) mmol/L Chloride (98-107) mmol/L Carbon Dioxide (22-32) mmol/L BUN (7-17) mg/dL Creatinine (0.52-1.04) mg/dL Estimated GFR (>60) mL/min BUN/Creatinine Ratio (6-22) Glucose (80-110) mg/dL Lactate (0.7-2.1) mmol/L Calcium (8.4-10.2) mg/dL Total Bilirubin (0.2-1.3) mg/dL AST (14-36) IU/L ALT (<35) IU/L Alkaline Phosphatase (38-126) U/L Ammonia < 9 L (9-30) umol/L Total Creatine Kinase (30-135) U/L CK-MB (CK-2) CK-MB (CK-2) Rel Index Troponin I (0.01-0.034) ng/mL NT-Pro-B Natriuret Pep (<125) pg/mL Total Protein (6.3-8.2) g/dL Albumin (3.5-5.0) g/dL Globulin (1.7-4.1) g/dL Albumin/Globulin Ratio (1.0-2.8) Lipase (23-300) U/L TSH (0.47-4.68) uIU/mL Urine RBC 0-1/hpf (0-5/HPF) Urine WBC 0-1/hpf (0-5/HPF) Ur Squamous Epith Cells 1-5 /hpf (0-5/HPF) Amorphous Sediment 1+ Urine Bacteria Occasional (0-1) (None) Ur Culture Indicated? Cult not indicated U Opiates 300ng/mL cut Negative (Negative) Ur Oxycodone Screen Negative (Negative) Urine Methadone Screen Negative (Negative) Ur Barbiturates Screen Negative (Negative) U Tricyclic Antidepress Negative (Negative) Ur Phencyclidine Scrn Negative (Negative) Ur Amphetamines Screen Negative (Negative) U Methamphetamines Scrn Negative (Negative) Ur MDMA Scrn (Ecstasy) Negative (Negative) U Benzodiazepines Scrn Negative (Negative) Urine Cocaine Screen Negative (Negative) U Marijuana (THC) Screen Negative (Negative) Ethyl Alcohol ( - 10) mg/dL Point of Care Testing Glucose POC 272 Urine Dip Bedside Urine Glucose 1000 mg/dl Bedside Urine Bilirubin - Negative Bedside Urine Ketone - Negative Urine Specific [place] 1.025 Bedside Urine Occult Blood + Bedside Urine pH 6.0 Bedside Urine Protein ++ 100 Bedside Urine Urobilinogen - Negative Bedside Urine Nitrite - Negative Bedside Urine Leukocytes - Negative Esterase Discharge Plan Departure Patient Disposition: Home Clinical Impression: Transaminitis Fall Qualifiers: Encounter type: initial encounter Qualified Code(s): W19.XXXA - Unspecified fall, initial encounter Discharge Date/Time: 03/07/20 20:40 Instructions: How to Prevent Falls, DI for Muscle Weakness, Liver Function Tests Activity Restrictions/Additional Instructions: I thank you for trusting us with your care today. As discussed, please follow-up with primary care provider in the next few days regarding your emergency department visit and elevated liver enzymes. Today we found no evidence of hip fracture, heart attack, stroke, head injury urinary tract infection or other concerning findings Please come back to the emergency department for any acute concerns. As discussed, we did note a small lung nodule in your left upper lobe that might need follow-up Prescriptions: No Action atorvastatin 40 mg tablet 40 mg PO QPM RF: 0 cholecalciferol (vitamin D3) [Vitamin D3] 1,000 unit Capsule 3,000 unit PO DAILY RF: 0 insulin aspart U-100 [Novolog Flexpen U-100 Insulin] 100 UNIT/1 ML insulin pen 1 dose subcut QIDACHS RF: 0 hydralazine 10 mg Tablet 20 mg PO BID RF: 0 tizanidine 2 mg Tablet 2 mg PO Q8H PRN (Reason: Muscle Spasm) RF: 0 sucralfate 1 gram Tablet 1 g PO QID RF: 0 cyanocobalamin (vitamin B-12) 1,000 mcg Tablet 1,000 mcg PO DAILY RF: 0 tramadol 50 mg tablet 50 mg PO BID PRN (Reason: Pain (Scale Score 7-10)) RF: 0 spironolactone 25 mg tablet 25 mg PO DAILY RF: 0 pantoprazole 40 mg tablet,delayed release (DR/EC) 40 mg PO BID RF: 0 ondansetron 4 mg tablet,disintegrating 8 mg PO Q6H PRN (Reason: nausea and vomiting) RF: 0 propranolol 20 mg tablet 20 mg PO DAILY RF: 0 Lantus U-100 Insulin 100 unit/mL Solution 11 unit SUBCUT DAILY RF: 0 aspirin 81 mg Tablet,Delayed Release (Dr/Ec) 81 mg PO BID Qty: 30 RF: 0 docusate sodium [DOK] 100 mg Capsule 100 mg PO BID Qty: 14 RF: 0 oxycodone 5 mg Tablet 5 mg PO Q3HR PRN (Reason: Pain, Moderate (4-6)) Qty: 15 RF: 0 Referrals: Jyoti Streeter MD [Primary Care Provider] - <Brown Gonsales DO - Last Filed: 03/08/20 07:04> [facility]: Dr Gonsales Co-Sign Statement: I was available for consultation during this patient's emergency department visit. This chart is signed by myself for administrative purposes only. I did not have direct contact with this patient during this visit. They were seen independently by the APC.
== END 2020-03-07 20:40 | disposition home or self-care (01) ==
PROVIDERS: Emergency Provider Nurse Practitioner Family; PCP Family Medicine
DX: R74.01 Elevation of levels of liver transaminase levels (principal); R41.0 Disorientation, unspecified; M54.2 Cervicalgia; W19.XXXA Unspecified fall, initial encounter; E11.9 Type 2 diabetes mellitus without complications; E78.5 Hyperlipidemia, unspecified; K70.30 Alcoholic cirrhosis of liver without ascites; K86.0 Alcohol-induced chronic pancreatitis
CPT/HCPCS: 36415; 70450; 71045; 72125; 72170; 80053; 80305; 80320; 81003; 81015; 82140; 82550; 82962; 83605; 83690; 83880; 84443; 84484; 85025; 85610; 85730; 93005; 93010; 96360; 99284; 99285

== ENCOUNTER 2020-04-04 05:07 | Emergency (ER) | payer MEDICARE, MEDICAID, SELFPAY ==
[2019-12-26 16:38] VITALS: BMI 19.1
[2020-04-04 05:15] VITALS: BP 184/84; PULSE 90; RESP 18; TEMP 36.8; O2SAT 98
--- NOTE | 2020-04-04 06:47 | ED_ITS ---
HPI - General Adult General Chief complaint: GI Bleed Stated complaint: blood in stool Time Seen by Provider: 04/04/20 06:45 Source: patient Mode of arrival: Wheelchair Limitations: no limitations History of Present Illness HPI narrative: Patient is a 65-year-old female here in the emergency department with her for evaluation of diarrhea and dizziness blood in her stool. Patient reports that she woke up this morning had 1 episode of diarrhea that she states was red in color. She is also dizzy but this is not new for her. Has had issues with GI bleeding in the past that she reports this was secondary to alcohol use. She no longer uses alcohol. She states the dizziness she is having this morning is slightly more intense than what it normally is for her. Related Data Home Medications Medication Instructions Recorded Confirmed atorvastatin 40 mg PO QPM 10/08/17 12/26/19 cholecalciferol (vitamin D3) 3,000 unit PO DAILY 10/08/17 12/26/19 [Vitamin D3] insulin aspart U-100 [Novolog 1 dose SUBCUT QIDACHS 10/08/17 12/26/19 Flexpen U-100 Insulin] cyanocobalamin (vitamin B-12) 1,000 mcg PO DAILY 08/02/19 12/26/19 hydralazine 20 mg PO BID 08/02/19 12/26/19 sucralfate 1 g PO QID 08/02/19 12/26/19 tizanidine 2 mg PO Q8H PRN 08/02/19 12/26/19 Lantus U-100 Insulin 11 unit SUBCUT DAILY 12/26/19 12/26/19 ondansetron 8 mg PO Q6H PRN 12/26/19 12/26/19 pantoprazole 40 mg PO BID 12/26/19 12/26/19 propranolol 20 mg PO DAILY 12/26/19 12/26/19 spironolactone 25 mg PO DAILY 12/26/19 12/26/19 tramadol 50 mg PO BID PRN 12/26/19 12/26/19 Previous Rx's Medication Instructions Recorded aspirin 81 mg PO BID #30 tab 12/29/19 docusate sodium [DOK] 100 mg PO BID #14 cap 12/29/19 oxycodone 5 mg PO Q3HR PRN #15 tab 08/11/20 Allergies Allergy/AdvReac Type Severity Reaction Status Date / Time Iodine and Iodide Containing Allergy Unknown Verified 01/05/20 12:16 Produc [IODINE AND IODIDE CONTAINING PRODUC] latex [LATEX] Allergy Unknown Verified 01/05/20 12:16 Review of Systems Constitutional Constitutional: Denies chills, Denies fever(s) and Reports headache(s) Eyes Eyes: Denies change in vision ENT Ears, Nose, Mouth, and Throat: Reports vertigo, Reports dizziness, Reports headache(s), Denies tinnitus, Denies sinus pain and Denies sore throat Cardiovascular Cardiovascular: Denies chest pain, Reports lightheadedness and Denies dyspnea Respiratory Respiratory: Denies cough and Denies dyspnea Gastrointestinal Gastrointestinal: Denies abdominal pain, Reports hematochezia, Reports diarrhea, Denies nausea and Denies vomiting Genitourinary Genitourinary: Denies dysuria Genitourinary: Denies dysuria Musculoskeletal Musculoskeletal: Denies arthralgias and Denies myalgias Integumentary/Breasts Skin/Breast: Denies lesions and Denies rash Neurologic Neurologic: Reports vertigo, Reports dizziness and Reports headache(s) Hematologic/Lymphatic Hematologic/Lymphatic: Denies easy bleeding and Denies easy bruising Allergic/Immunologic Allergic/Immunologic: Denies urticaria Patient History Medical History (Updated 04/04/20 @ 08:24 by Shwetha Taylor DO) Dow's esophagus with esophagitis CVA (cerebral vascular accident) Dementia Diabetes Gallbladder disease GERD (gastroesophageal reflux disease) Hyperlipidemia Hypertension Overactive bladder Subdural hematoma Upper GI bleed Surgical History History of cholecystectomy Tubal ligation status Family History Mother Heart disease Father No problems noted. Social History household members: significant other Smoking Status: Current some day smoker alcohol intake: former Smoking Status: Current some day smoker tobacco type: cigarettes alcohol intake frequency: holidays/special occasions only Alcohol type: hard liquor Substance Use Type: does not use Exam Initial Vital Signs Initial Vital Signs: Vital Signs Temperature 98.2 F 04/04/20 05:15 Pulse Rate 90 04/04/20 05:15 Respiratory Rate 18 04/04/20 05:15 Blood Pressure 184/84 H 04/04/20 05:15 Pulse Oximetry 98 04/04/20 05:15 Const General: cooperative, comfortable and well developed Limitations: mental status not altered HENIL Head: normal to inspection and normocephalic Resp Effort & Inspection: normal respiratory effort Auscultation: clear to auscultation bilaterally Cardio Rate: regular rate Rhythm: regular rhythm GI Inspection: non-distended Palpation: soft and No tender Rectal Exam: heme positive stool Skin Lesions: no lesions Rashes: no rashes Neuro General: patient alert, patient awake and patient oriented x3 Cranial Nerves: CN's II-XI intact bilaterally Cognition: normal cognition Speech: speech normal Sensory Exam: no sensory deficits noted Extrem General: normal to inspection and capillary refill normal Psych Appearance: grossly normal and well kempt Scores GCS [place] coma scale eye opening: Spontaneous [place] coma scale verbal response: Orientated [place] coma scale motor response: Obey commands [place] coma scale total score: 15 Course Orders Ordered: ED Orders 04/04/20 05:22 EKG-12 Lead Stat 04/04/20 06:21 Complete Blood Count AUTO DIFF Stat Comprehensive Metabolic Panel Stat Ethanol (ETOH) Stat Lipase Stat Troponin & CK Cardiac Panel Stat Medical Decision Making Lab Data Result diagrams: 04/04/20 06:21 04/04/20 06:21 Labs: Lab Results 04/04/20 04/04/20 04/04/20 Range/Units 06:21 06:21 06:21 WBC 10.0 (4.5-11.0) X10^3/uL RBC 3.95 L (4.0-5.2) X10^6/uL Hgb 10.9 L (12.0-16.0) g/dL Hct 33.9 L (36-46) % MCV 86.0 (80-100) fL MCH 27.6 (26-34) PG MCHC 32.1 (30-36) % RDW 16.9 H (11.6-14.8) % Plt Count 281 (150-400) X10^3/uL Neut % (Auto) Not Reportable Lymph % (Auto) Not Reportable [place] % (Auto) Not Reportable Eos % (Auto) Not Reportable Baso % (Auto) Not Reportable Lymph # (Auto) Not Reportable [place] # (Auto) Not Reportable Baso # (Auto) Not Reportable Total Counted 100 Seg Neutrophils % 79.0 H (38-70) % Band Neutrophils % 1.0 L (3-7) % Lymphocytes % (Manual) 11.0 L (25-45) % Monocytes % (Manual) 7.0 (2-11) % Eosinophils % (Manual) 1.0 L (2-4) % Basophils % (Manual) 1.0 (0-1) % Neutrophils # (Manual) 8000 H (1758-5509) /uL RBC Morphology See below Poikilocytosis 1+ H Anisocytosis 1+ H Sodium 135 L (137-145) mmol/L Potassium 4.4 (3.4-5.1) mmol/L Chloride 112 H (98-107) mmol/L Carbon Dioxide 24 (22-32) mmol/L BUN 25 H (7-17) mg/dL Creatinine 1.14 H (0.52-1.04) mg/dL Estimated GFR 48.0 L (>60) mL/min BUN/Creatinine Ratio 21.9 (6-22) Glucose 45 L* (80-110) mg/dL Calcium 8.5 (8.4-10.2) mg/dL Total Bilirubin 0.5 (0.2-1.3) mg/dL AST 186 H (14-36) IU/L ALT 158 H (<35) IU/L Alkaline Phosphatase 315 H (38-126) U/L Total Creatine Kinase 74 (30-135) U/L CK-MB (CK-2) TNP CK-MB (CK-2) Rel Index TNP Troponin I 0.018 (0.01-0.034) ng/mL Total Protein 6.2 L (6.3-8.2) g/dL Albumin 3.1 L (3.5-5.0) g/dL Globulin 3.1 (1.7-4.1) g/dL Albumin/Globulin Ratio 1.0 (1.0-2.8) Lipase 14 L (23-300) U/L Ethyl Alcohol < 10 ( - 10) mg/dL Point of Care Testing Stool Occult Blood Positive Glucose POC 180 Point of care testing: Point of Care Testing Stool Occult Blood Positive Glucose POC 180 ECG Data Attestation: I personally reviewed and interpreted this ECG as follows: Prior ECG tracings: not available for review Interpretation: Sinus rhythm Ventricular rate 87 LVH Normal axis Normal QRS Normal QTC Nonspecific ST T wave changes MDM Narrative Medical decision making narrative: Patient states that the dizziness that she is experiencing is not new for her but potentially more intense than what her baseline is. She has had 1 episode of bright red blood in she was Hemoccult positive. She has benign exam. Her EKG is unremarkable. He had an H unremarkable. Has a nonfocal neurologic exam. Patient is an insulin-dependent diabetic. The asked that we check a blood sugar and a point of care blood sugar was 38. She was given glucose replacement by mouth as she did not have an IV secondary to difficulty with obtaining blood and starting an IV. Car e turned over to Dr. Taylor at change shift to follow up. Discharge Plan Departure Patient Disposition: Home Clinical Impression: Hypoglycemia, Acute GI bleeding Instructions: DI for Hypoglycemia Activity Restrictions/Additional Instructions: Follow-up with your physician for recheck, if you continue to noticed any black or bloody stools I would recommend a colonoscopy. I would hold any blood thinners at this time including aspirin until seen by your physician. You may continue your other home medications as prescribed. Return to the ER for fevers, lightheadedness, abdominal pain, recurrent bloody or black stools especially with large clots, lightheadedness, passing out, new chest pain or shortness of breath or other new or concerning symptoms. Prescriptions: No Action atorvastatin 40 mg tablet 40 mg PO QPM RF: 0 cholecalciferol (vitamin D3) [Vitamin D3] 1,000 unit Capsule 3,000 unit PO DAILY RF: 0 insulin aspart U-100 [Novolog Flexpen U-100 Insulin] 100 UNIT/1 ML insulin pen 1 dose subcut QIDACHS RF: 0 hydralazine 10 mg Tablet 20 mg PO BID RF: 0 tizanidine 2 mg Tablet 2 mg PO Q8H PRN (Reason: Muscle Spasm) RF: 0 sucralfate 1 gram Tablet 1 g PO QID RF: 0 cyanocobalamin (vitamin B-12) 1,000 mcg Tablet 1,000 mcg PO DAILY RF: 0 tramadol 50 mg tablet 50 mg PO BID PRN (Reason: Pain (Scale Score 7-10)) RF: 0 spironolactone 25 mg tablet 25 mg PO DAILY RF: 0 pantoprazole 40 mg tablet,delayed release (DR/EC) 40 mg PO BID RF: 0 ondansetron 4 mg tablet,disintegrating 8 mg PO Q6H PRN (Reason: nausea and vomiting) RF: 0 propranolol 20 mg tablet 20 mg PO DAILY RF: 0 Lantus U-100 Insulin 100 unit/mL Solution 11 unit SUBCUT DAILY RF: 0 aspirin 81 mg Tablet,Delayed Release (Dr/Ec) 81 mg PO BID Qty: 30 RF: 0 docusate sodium [DOK] 100 mg Capsule 100 mg PO BID Qty: 14 RF: 0 oxycodone 5 mg Tablet 5 mg PO Q3HR PRN (Reason: Pain, Moderate (4-6)) Qty: 15 RF: 0 Referrals: Jyoti Streeter MD [Primary Care Provider] -
--- NOTE | 2020-04-04 06:48 | PC.NURSE ---
See Downtime Paper charting
[2020-04-04 06:50] LABS: Add Manual Diff / Slide Review YES; Hematocrit 33.9 % (36-46); Hemoglobin 10.9 g/dL (12.0-16.0); Mean Corpuscular HGB Conc 32.1 % (30-36); Mean Corpuscular Hemoglobin 27.6 PG (26-34); Platelet Count 281 X10^3/uL (150-400); Red Blood Cell Count 3.95 X10^6/uL (4.0-5.2); Red Cell Distribution Width 16.9 % (11.6-14.8)
[2020-04-04 06:52] LABS: Anisocytosis 1+; Neutrophils Absolute Manual 8000 /uL (3000-5900); Total Cells Counted 100
[2020-04-04 06:53] LABS: Poikilocytosis 1+
[2020-04-04 06:56] LABS: Alanine Aminotransferase 158 IU/L (<35); Albumin 3.1 g/dL (3.5-5.0); Alkaline Phosphatase 315 U/L (38-126); Aspartate Aminotransferase 186 IU/L (14-36); BUN Creatinine Ratio 21.9 (6-22); Bilirubin Total 0.5 mg/dL (0.2-1.3); Blood Urea Nitrogen 25 mg/dL (7-17); Calcium 8.5 mg/dL (8.4-10.2); Carbon Dioxide 24 mmol/L (22-32); Chloride 112 mmol/L (98-107); Creatine Kinase 74 U/L (30-135); Globulin 3.1 g/dL (1.7-4.1); HEMOLYSIS < 15 (0-50); Lipase 14 U/L (23-300); Potassium 4.4 mmol/L (3.4-5.1); Sodium 135 mmol/L (137-145); Total Protein 6.2 g/dL (6.3-8.2)
[2020-04-04 06:58] LABS: Ethanol (ETOH) < 10 mg/dL
[2020-04-04 07:01] LABS: Troponin I 0.018 ng/mL (0.01-0.034)
[2020-04-04 07:07] LABS: Glucose 45 mg/dL (80-110)
[2020-04-04 07:08] VITALS: BP 144/67; PULSE 87; RESP 18; O2SAT 98
--- NOTE | 2020-04-04 07:10 | PC.NURSE ---
+ Dr. Ilda Yanes aware Pt cool, pale, dry Unable to obtain IV access; Dr Gonsales made aware
--- NOTE | 2020-04-04 08:16 | ED_ITS ---
HPI - GI Bleed General Chief complaint: GI Bleed Stated complaint: blood in stool Time Seen by Provider: 04/04/20 06:45 Source: patient Mode of arrival: Wheelchair Limitations: no limitations Related Data Home Medications Medication Instructions Recorded Confirmed atorvastatin 40 mg PO QPM 10/08/17 12/26/19 cholecalciferol (vitamin D3) 3,000 unit PO DAILY 10/08/17 12/26/19 [Vitamin D3] insulin aspart U-100 [Novolog 1 dose SUBCUT QIDACHS 10/08/17 12/26/19 Flexpen U-100 Insulin] cyanocobalamin (vitamin B-12) 1,000 mcg PO DAILY 08/02/19 12/26/19 hydralazine 20 mg PO BID 08/02/19 12/26/19 sucralfate 1 g PO QID 08/02/19 12/26/19 tizanidine 2 mg PO Q8H PRN 08/02/19 12/26/19 Lantus U-100 Insulin 11 unit SUBCUT DAILY 12/26/19 12/26/19 ondansetron 8 mg PO Q6H PRN 12/26/19 12/26/19 pantoprazole 40 mg PO BID 12/26/19 12/26/19 propranolol 20 mg PO DAILY 12/26/19 12/26/19 spironolactone 25 mg PO DAILY 12/26/19 12/26/19 tramadol 50 mg PO BID PRN 12/26/19 12/26/19 Previous Rx's Medication Instructions Recorded aspirin 81 mg PO BID #30 tab 12/29/19 docusate sodium [DOK] 100 mg PO BID #14 cap 12/29/19 oxycodone 5 mg PO Q3HR PRN #15 tab 12/29/19 Allergies Allergy/AdvReac Type Severity Reaction Status Date / Time Iodine and Iodide Containing Allergy Unknown Verified 01/05/20 12:16 Produc [IODINE AND IODIDE CONTAINING PRODUC] latex [LATEX] Allergy Unknown Verified 01/05/20 12:16 Review of Systems Constitutional Constitutional: Reports headache(s) ENT Ears, Nose, Mouth, and Throat: Reports vertigo, Reports dizziness and Reports headache(s) Neurologic Neurologic: Reports vertigo, Reports dizziness and Reports headache(s) Patient History Medical History (Updated 04/04/20 @ 08:24 by Shwetha Taylor DO) Dow's esophagus with esophagitis CVA (cerebral vascular accident) Dementia Diabetes Gallbladder disease GERD (gastroesophageal reflux disease) Hyperlipidemia Hypertension Overactive bladder Subdural hematoma Upper GI bleed Surgical History History of cholecystectomy Tubal ligation status Family History Mother Heart disease Father No problems noted. Social History household members: significant other Smoking Status: Current some day smoker alcohol intake: former Smoking Status: Current some day smoker tobacco type: cigarettes alcohol intake frequency: holidays/special occasions only Alcohol type: hard liquor Substance Use Type: does not use Exam Initial Vital Signs Initial Vital Signs: Vital Signs Temperature 98.2 F 04/04/20 05:15 Pulse Rate 90 04/04/20 05:15 Respiratory Rate 18 04/04/20 05:15 Blood Pressure 184/84 H 04/04/20 05:15 Pulse Oximetry 98 04/04/20 05:15 Course Orders Ordered: ED Orders 04/04/20 05:22 EKG-12 Lead Stat 04/04/20 06:21 Complete Blood Count AUTO DIFF Stat Comprehensive Metabolic Panel Stat Ethanol (ETOH) Stat Lipase Stat Troponin & CK Cardiac Panel Stat Vital Signs Vital signs: Vital Signs - 8 hr 04/04/20 05:15 04/04/20 07:08 04/04/20 09:01 Temperature 98.2 F Pulse Rate 90 87 84 Respiratory Rate 18 18 24 Blood Pressure 184/84 H 144/67 H 145/71 H Pulse Oximetry 98 98 99 MDM - GI Bleed Lab Data Attestation: I reviewed the patient's lab results. Result diagrams: 04/04/20 06:21 04/04/20 06:21 Labs: Lab Results 04/04/20 04/04/20 04/04/20 Range/Units 06:21 06:21 06:21 WBC 10.0 (4.5-11.0) X10^3/uL RBC 3.95 L (4.0-5.2) X10^6/uL Hgb 10.9 L (12.0-16.0) g/dL Hct 33.9 L (36-46) % MCV 86.0 (80-100) fL MCH 27.6 (26-34) PG MCHC 32.1 (30-36) % RDW 16.9 H (11.6-14.8) % Plt Count 281 (150-400) X10^3/uL Neut % (Auto) Not Reportable Lymph % (Auto) Not Reportable [place] % (Auto) Not Reportable Eos % (Auto) Not Reportable Baso % (Auto) Not Reportable Lymph # (Auto) Not Reportable [place] # (Auto) Not Reportable Baso # (Auto) Not Reportable Total Counted 100 Seg Neutrophils % 79.0 H (38-70) % Band Neutrophils % 1.0 L (3-7) % Lymphocytes % (Manual) 11.0 L (25-45) % Monocytes % (Manual) 7.0 (2-11) % Eosinophils % (Manual) 1.0 L (2-4) % Basophils % (Manual) 1.0 (0-1) % Neutrophils # (Manual) 8000 H (2383-4842) /uL RBC Morphology See below Poikilocytosis 1+ H Anisocytosis 1+ H Sodium 135 L (137-145) mmol/L Potassium 4.4 (3.4-5.1) mmol/L Chloride 112 H (98-107) mmol/L Carbon Dioxide 24 (22-32) mmol/L BUN 25 H (7-17) mg/dL Creatinine 1.14 H (0.52-1.04) mg/dL Estimated GFR 48.0 L (>60) mL/min BUN/Creatinine Ratio 21.9 (6-22) Glucose 45 L* (80-110) mg/dL Calcium 8.5 (8.4-10.2) mg/dL Total Bilirubin 0.5 (0.2-1.3) mg/dL AST 186 H (14-36) IU/L ALT 158 H (<35) IU/L Alkaline Phosphatase 315 H (38-126) U/L Total Creatine Kinase 74 (30-135) U/L CK-MB (CK-2) TNP CK-MB (CK-2) Rel Index TNP Troponin I 0.018 (0.01-0.034) ng/mL Total Protein 6.2 L (6.3-8.2) g/dL Albumin 3.1 L (3.5-5.0) g/dL Globulin 3.1 (1.7-4.1) g/dL Albumin/Globulin Ratio 1.0 (1.0-2.8) Lipase 14 L (23-300) U/L Ethyl Alcohol < 10 ( - 10) mg/dL Point of Care Testing Stool Occult Blood Positive Glucose POC 180 MDM Narrative Medical decision making narrative: Patient comes in for complaint of dizziness and one episode of diarrhea with blood. Was initially seen by Dr. Gonsales followed by myself. Patient is on daily aspirin, she has had issues GI bleeding the past states it was secondary to alcohol use. She no longer uses alcohol. She also is feeling slightly dizzy which she normally has and this is not new for her. But that she felt it was slightly worse. It was noted that her glucose was quite low, she was given oral sugar replacement and recheck here in the department x2 was in normal range. She did have positive stool occult, her hemoglobin is stable with normal vitals in the department. She has had a EGD in July [address] Serrano and there was noted of esophagitis and a deformed what numb with biopsies taken but no varices. Discussed with patient she has had not had any new changes to her insulin dosing. They did give her her insulin at 4:30 a.m. this morning she had not had anything to eat prior 0 or overnight. Plan to hold her aspirin, she is on a PPI, and have her follow-up for colonoscopy. She sees Jyoti Streeter they will talk to her about getting this arranged. Patient has been both feel comfortable here in the department. We did discuss rechecking hemoglobin if they were anxious but her vitals have been stable and she has had no additional bowel movements. Discharge Plan Departure Clinical Impression: Hypoglycemia, Acute GI bleeding Instructions: DI for Hypoglycemia Activity Restrictions/Additional Instructions: Follow-up with your physician for recheck, if you continue to noticed any black or bloody stools I would recommend a colonoscopy. I would hold any blood thinners at this time including aspirin until seen by your physician. You may continue your other home medications as prescribed. Return to the ER for fevers, lightheadedness, abdominal pain, recurrent bloody or black stools especially with large clots, lightheadedness, passing out, new chest pain or shortness of breath or other new or concerning symptoms. Prescriptions: No Action atorvastatin 40 mg tablet 40 mg PO QPM RF: 0 cholecalciferol (vitamin D3) [Vitamin D3] 1,000 unit Capsule 3,000 unit PO DAILY RF: 0 insulin aspart U-100 [Novolog Flexpen U-100 Insulin] 100 UNIT/1 ML insulin pen 1 dose subcut QIDACHS RF: 0 hydralazine 10 mg Tablet 20 mg PO BID RF: 0 tizanidine 2 mg Tablet 2 mg PO Q8H PRN (Reason: Muscle Spasm) RF: 0 sucralfate 1 gram Tablet 1 g PO QID RF: 0 cyanocobalamin (vitamin B-12) 1,000 mcg Tablet 1,000 mcg PO DAILY RF: 0 tramadol 50 mg tablet 50 mg PO BID PRN (Reason: Pain (Scale Score 7-10)) RF: 0 spironolactone 25 mg tablet 25 mg PO DAILY RF: 0 pantoprazole 40 mg tablet,delayed release (DR/EC) 40 mg PO BID RF: 0 ondansetron 4 mg tablet,disintegrating 8 mg PO Q6H PRN (Reason: nausea and vomiting) RF: 0 propranolol 20 mg tablet 20 mg PO DAILY RF: 0 Lantus U-100 Insulin 100 unit/mL Solution 11 unit SUBCUT DAILY RF: 0 aspirin 81 mg Tablet,Delayed Release (Dr/Ec) 81 mg PO BID Qty: 30 RF: 0 docusate sodium [DOK] 100 mg Capsule 100 mg PO BID Qty: 14 RF: 0 oxycodone 5 mg Tablet 5 mg PO Q3HR PRN (Reason: Pain, Moderate (4-6)) Qty: 15 RF: 0 Referrals: Jyoti Streeter MD [Primary Care Provider] -
[2020-04-04 09:01] VITALS: BP 145/71; PULSE 84; RESP 24; O2SAT 99
== END 2020-04-04 09:20 | disposition home or self-care (01) ==
PROVIDERS: Emergency Medicine; Emergency Provider Emergency Medicine; PCP Family Medicine
DX: E11.649 Type 2 diabetes mellitus with hypoglycemia without coma (principal); Z79.4 Long term (current) use of insulin; K92.2 Gastrointestinal hemorrhage, unspecified; R19.5 Other fecal abnormalities; R19.7 Diarrhea, unspecified; R42 Dizziness and giddiness; R07.9 Chest pain, unspecified
CPT/HCPCS: 36415; 80053; 80320; 82272; 82550; 82962; 83690; 84484; 85025; 93005; 99283; 99284

== ENCOUNTER → 2020-05-02 13:23 | Outpatient (ROUT) | payer MEDICARE, MEDICAID, SELFPAY ==
[2020-05-02 13:45] LABS: COVID19 -Nasal RAPID Negative (Negative)
== END ==
PROVIDERS: PCP Family Medicine; Visit Provider Family Medicine
DX: R05 Cough (principal)
CPT/HCPCS: 87635

== ENCOUNTER 2020-07-09 22:48 | Emergency (ER) | payer MEDICARE, MEDICAID, SELFPAY ==
[2019-12-26 16:38] VITALS: BMI 19.1
[2020-07-09 22:58] VITALS: BP 135/68; PULSE 84; RESP 17; TEMP 36.6; O2SAT 98; BMI 26.4
--- NOTE | 2020-07-09 23:31 | ED_ITS ---
HPI - Weakness General Chief complaint: Weakness Stated complaint: weakness, speech trouble Time Seen by Provider: 07/09/20 23:13 Source: patient Mode of arrival: Ambulatory Limitations: no limitations History of Present Illness HPI Narrative: This is a 65-year-old female comes emergency department complaint of generalized weakness, some difficulty with word finding and speech. Per patient and she has seems slower and has had more memory issues than normal for the past few days. Patient denies any fevers or chills. No cold, cough or congestion. Patient denies any chest pain or shortness of breath. She states she did have some nausea and vomited yesterday. She ate without any issues today. She has had decreased appetite. Um she initially denies any abdominal within states she has tenderness with palpation. She denies any black or bloody she has been having regular bowel movements. She denies any frequency, dysuria or urgency. Patient denies any swelling in her extremities. She denies any localized or lateralized weakness in her extremities. No numbness or tingling. Patient has a history of cirrhosis secondary to alcohol abuse. She stopped drinking in May of last year. She has type 2 diabetes, dyslipidemia, prior CVA or TIA and had a left hip fracture which was repaired in July of 2019. Patient has also had a cholecystectomy. She is accompanied by her . No current tobacco, alcohol or illicit. She is on aspirin daily. She see's Dr. Streeter for her primary care. Related Data Home Medications Medication Instructions Recorded Confirmed atorvastatin 40 mg PO QPM 10/08/17 12/26/19 cholecalciferol (vitamin D3) 3,000 unit PO DAILY 10/08/17 12/26/19 [Vitamin D3] insulin aspart U-100 [Novolog 1 dose SUBCUT QIDACHS 10/08/17 12/26/19 Flexpen U-100 Insulin] cyanocobalamin (vitamin B-12) 1,000 mcg PO DAILY 08/02/19 12/26/19 hydralazine 20 mg PO BID 08/02/19 12/26/19 sucralfate 1 g PO QID 08/02/19 12/26/19 tizanidine 2 mg PO Q8H PRN 08/02/19 12/26/19 Lantus U-100 Insulin 11 unit SUBCUT DAILY 12/26/19 12/26/19 ondansetron 8 mg PO Q6H PRN 12/26/19 12/26/19 pantoprazole 40 mg PO BID 12/26/19 12/26/19 propranolol 20 mg PO DAILY 12/26/19 12/26/19 spironolactone 25 mg PO DAILY 12/26/19 12/26/19 tramadol 50 mg PO BID PRN 12/26/19 12/26/19 Previous Rx's Medication Instructions Recorded aspirin 81 mg PO BID #30 tab 12/29/19 docusate sodium [DOK] 100 mg PO BID #14 cap 12/29/19 oxycodone 5 mg PO Q3HR PRN #15 tab 12/29/19 Allergies Allergy/AdvReac Type Severity Reaction Status Date / Time Iodine and Iodide Containing Allergy Unknown Verified 05/02/20 14:24 Produc [IODINE AND IODIDE CONTAINING PRODUC] latex [LATEX] Allergy Unknown Verified 05/02/20 14:24 Review of Systems Review of Systems ROS Unobtainable: All systems reviewed & are unremarkable except as noted in HPI and below Patient History Medical History Dow's esophagus with esophagitis CVA (cerebral vascular accident) Dementia Diabetes Gallbladder disease GERD (gastroesophageal reflux disease) Hyperlipidemia Hypertension Overactive bladder Subdural hematoma Upper GI bleed Surgical History History of cholecystectomy Tubal ligation status Family History (System 05/02/20 @ 14:24 by Shauna Moyer) Mother Heart disease Father No problems noted. Social History household members: significant other Smoking Status: Current some day smoker alcohol intake: former Smoking Status: Current some day smoker tobacco type: cigarettes alcohol intake frequency: holidays/special occasions only Alcohol type: hard liquor Substance Use Type: does not use Exam Narrative Exam Narrative: GEN: Frail, elderly appearing female, alert and oriented, patient appears to be in mild distress. HEENT: Atraumatic, pupils are equal round reactive to light, extraocular movements are intact, nares are clear, TMs are clear with no fluid, there is no conjunctival pallor. Throat is clear without any exudates, erythema, tonsillar enlargement or uvular deviation, no facial droop is appreciated with smile but when she puffs her cheeks her right nasal labial fold does appears slightly less obvious than the left but this is very mild. Her is unsure if this is new or old. HEART: Regular rate and rhythm without murmur, clicks, rubs. Pulses are equal in upper and lower extremities LUNGS:Lungs clear to auscultation, no wheezes, rales, crackles, chest moves symmetrically, no tachypnea, speaks in full sentences. ABD:bowel sounds normal, soft, mild right upper quadrant tenderness to palpation, no guarding, rebound, rigidity, no masses noted, + hepatomegaly :No CVA tenderness MSCL: Non-tender, no muscle atrophy, muscles strength 5/5 upper and lower extremities, full range of motion. NEURO:CN 2-12 intact, sensation normal, finger nose finger test normal, heel lozada test normal SKIN: Pale, no rashes, erythema or other skin changes appreciated. Initial Vital Signs Initial Vital Signs: Vital Signs Temperature 98 F 07/09/20 22:58 Pulse Rate 84 07/09/20 22:58 Respiratory Rate 17 07/09/20 22:58 Blood Pressure 135/68 07/09/20 22:58 Pulse Oximetry 98 07/09/20 22:58 Scores NIH Stroke Scale Level of Conciousness: Alert, keenly responsive Ask month/age: Answers both questions correctly. Open/close eyes, close hand: Performs both tasks correctly Best gaze horizontal: Normal Visual cuevas: No visual loss Facial palsy: Normal symetrical movement (? flattened but no asymmetry w/ smiling) Left arm drift: No drift for full 10 sec Right arm drift: No drift for full 10 sec Left leg drift: No drift for full 5 sec Right leg drift: No drift for full 5 sec Limb ataxia: Absent Sensory on face/arms/legs: Normal, no sensory loss Best language: No aphasia, normal Dysarthria: Normal Extinction or inattention: No abnormality Total NIH Stroke scale score: 0 Course Orders Ordered: ED Orders 07/09/20 23:31 CT head/brain wo con Stat EKG-12 Lead Stat 07/09/20 23:55 Blood Culture Stat Complete Blood Count AUTO DIFF Stat Comprehensive Metabolic Panel Stat Ethanol (ETOH) Stat Lactate (Lactic Acid) Stat Lipase Stat Troponin & CK Cardiac Panel Stat 07/09/20 23:59 Ammonia (NH3) Stat Partial Thromboplastin Time Stat Prothrombin Time INR Stat 07/10/20 00:52 XR chest 1V Stat 07/10/20 01:15 COVID19 Stat 07/10/20 02:11 EKG-12 Lead Stat 07/10/20 02:20 Troponin & CK Cardiac Panel Stat Discontinued Medications Aspirin (Aspirin 81 Mg Chew Tab) 324 mg PO NOW ONE Stop: 07/10/20 00:53 Last Admin: 07/10/20 01:06 Dose: 324 mg Documented by: [employer] [facility] Heparin Sodium (Porcine) (Heparin 5,000 Unit/Ml Vial) 5,400 unit 80 unit/kg (5400 unit) IV NOW ONE Stop: 07/10/20 03:33 Last Admin: 07/10/20 03:37 Dose: 5,400 unit Documented by: [employer] Sodium Chloride (Normal Saline 0.9%) 1,000 mls @ 150 mls/hr IV CONT MIRIAM Last Infusion: 07/10/20 04:51 Dose: 0 mls/hr Documented by: Admin: 07/10/20 01:05 Dose: 150 mls/hr Documented by: [employer] Heparin Sodium/Dextrose (Heparin Drip) 25,000 unit in 500 mls @ 20 mls/hr IV CONT MIRIAM; Protocol Last Titration: 07/10/20 04:51 Dose: 0 units/hr, 0 mls/hr Documented by: Admin: 07/10/20 03:36 Dose: 1,000 units/hr, 20 mls/hr Documented by: [employer] [facility] Consultations Consultation #1: Dr. Hernadez, discussed patients findings, labs an EKG as well as recent history. Recommends observation, serial enzymes, echo tomorrow and stress testing on Saturday. Time: 01:58 Consultation #2: CHASIDY Resendiz asks for repeat troponin if trending upwards she asked for transfer. Consultation #3: Dr. Stratton from [facility], he accepts for transfer. Plan for heparin drip. Patient and family aware of plan and comfortable with plan at this time. Patient continues to be asymptomatic. Vital Signs Vital signs: Vital Signs - 8 hr 07/09/20 22:58 07/10/20 02:29 07/10/20 03:05 Temperature 98 F Pulse Rate 84 75 72 Respiratory Rate 17 15 18 Blood Pressure 135/68 123/68 109/67 Pulse Oximetry 98 97 07/10/20 03:30 07/10/20 04:00 07/10/20 04:30 Temperature Pulse Rate 72 76 71 Respiratory Rate 19 25 H 12 Blood Pressure 112/68 113/68 118/69 Pulse Oximetry 98 99 MDM - Weakness Lab Data Attestation: I reviewed the patient's lab results. Result diagrams: 07/09/20 23:55 07/09/20 23:55 Labs: Lab Results 07/09/20 07/09/20 07/09/20 Range/Units 23:55 23:55 23:55 WBC 8.7 (4.5-11.0) X10^3/uL RBC 4.27 (4.0-5.2) X10^6/uL Hgb 11.8 L (12.0-16.0) g/dL Hct 36.9 (36-46) % MCV 86.4 (80-100) fL MCH 27.6 (26-34) PG MCHC 32.0 (30-36) % RDW 16.0 H (11.6-14.8) % Plt Count 259 (150-400) X10^3/uL Neut % (Auto) 65.7 (50-75) % Lymph % (Auto) 23.7 L (25-40) % [place] % (Auto) 8.8 (3-14) % Eos % (Auto) 0.8 L (2-4) % Baso % (Auto) 1.0 (0-2) % Neut # (Auto) 5700 (4267-1721) /uL Lymph # (Auto) 2100 (9346-3631) /uL [place] # (Auto) 800 (0-900) /uL Eos # (Auto) 100 (0-450) /uL Baso # (Auto) 100 (0-100) /uL PT (10.1-12.7) SECONDS INR (0.9-1.3) APTT (26.4-36.2) SECONDS Sodium 135 L (137-145) mmol/L Potassium 4.0 (3.4-5.1) mmol/L Chloride 111 H (98-107) mmol/L Carbon Dioxide 22 (22-32) mmol/L BUN 30 H (7-17) mg/dL Creatinine 1.58 H (0.52-1.04) mg/dL Estimated GFR 32.9 L (>60) mL/min BUN/Creatinine Ratio 19.0 (6-22) Glucose 213 H (80-110) mg/dL Lactate 1.0 (0.7-2.1) mmol/L Calcium 9.4 (8.4-10.2) mg/dL Total Bilirubin 0.3 (0.2-1.3) mg/dL AST 31 (14-36) IU/L ALT 14 (<35) IU/L Alkaline Phosphatase 64 (38-126) U/L Ammonia (9-30) umol/L Total Creatine Kinase 84 (30-135) U/L CK-MB (CK-2) TNP CK-MB (CK-2) Rel Index TNP Troponin I 0.426 H* (0.01-0.034) ng/mL Total Protein 6.0 L (6.3-8.2) g/dL Albumin 3.0 L (3.5-5.0) g/dL Globulin 3.0 (1.7-4.1) g/dL Albumin/Globulin Ratio 1.0 (1.0-2.8) Lipase (23-300) U/L Ethyl Alcohol < 10 ( - 10) mg/dL SARS-CoV-2 (PCR) (Negative) 07/09/20 07/09/20 07/09/20 Range/Units 23:55 23:59 23:59 WBC (4.5-11.0) X10^3/uL RBC (4.0-5.2) X10^6/uL Hgb (12.0-16.0) g/dL Hct (36-46) % MCV (80-100) fL MCH (26-34) PG MCHC (30-36) % RDW (11.6-14.8) % Plt Count (150-400) X10^3/uL Neut % (Auto) (50-75) % Lymph % (Auto) (25-40) % [place] % (Auto) (3-14) % Eos % (Auto) (2-4) % Baso % (Auto) (0-2) % Neut # (Auto) (6112-7447) /uL Lymph # (Auto) (0195-0483) /uL [place] # (Auto) (0-900) /uL Eos # (Auto) (0-450) /uL Baso # (Auto) (0-100) /uL PT 10.7 (10.1-12.7) SECONDS INR 0.9 (0.9-1.3) APTT 33 D (26.4-36.2) SECONDS Sodium (137-145) mmol/L Potassium (3.4-5.1) mmol/L Chloride (98-107) mmol/L Carbon Dioxide (22-32) mmol/L BUN (7-17) mg/dL Creatinine (0.52-1.04) mg/dL Estimated GFR (>60) mL/min BUN/Creatinine Ratio (6-22) Glucose (80-110) mg/dL Lactate (0.7-2.1) mmol/L Calcium (8.4-10.2) mg/dL Total Bilirubin (0.2-1.3) mg/dL AST (14-36) IU/L ALT (<35) IU/L Alkaline Phosphatase (38-126) U/L Ammonia < 9 L (9-30) umol/L Total Creatine Kinase (30-135) U/L CK-MB (CK-2) CK-MB (CK-2) Rel Index Troponin I (0.01-0.034) ng/mL Total Protein (6.3-8.2) g/dL Albumin (3.5-5.0) g/dL Globulin (1.7-4.1) g/dL Albumin/Globulin Ratio (1.0-2.8) Lipase 14 L (23-300) U/L Ethyl Alcohol ( - 10) mg/dL SARS-CoV-2 (PCR) (Negative) 07/10/20 07/10/20 Range/Units 01:15 02:20 WBC (4.5-11.0) X10^3/uL RBC (4.0-5.2) X10^6/uL Hgb (12.0-16.0) g/dL Hct (36-46) % MCV (80-100) fL MCH (26-34) PG MCHC (30-36) % RDW (11.6-14.8) % Plt Count (150-400) X10^3/uL Neut % (Auto) (50-75) % Lymph % (Auto) (25-40) % [place] % (Auto) (3-14) % Eos % (Auto) (2-4) % Baso % (Auto) (0-2) % Neut # (Auto) (2732-7711) /uL Lymph # (Auto) (3085-9643) /uL [place] # (Auto) (0-900) /uL Eos # (Auto) (0-450) /uL Baso # (Auto) (0-100) /uL PT (10.1-12.7) SECONDS INR (0.9-1.3) APTT (26.4-36.2) SECONDS Sodium (137-145) mmol/L Potassium (3.4-5.1) mmol/L Chloride (98-107) mmol/L Carbon Dioxide (22-32) mmol/L BUN (7-17) mg/dL Creatinine (0.52-1.04) mg/dL Estimated GFR (>60) mL/min BUN/Creatinine Ratio (6-22) Glucose (80-110) mg/dL Lactate (0.7-2.1) mmol/L Calcium (8.4-10.2) mg/dL Total Bilirubin (0.2-1.3) mg/dL AST (14-36) IU/L ALT (<35) IU/L Alkaline Phosphatase (38-126) U/L Ammonia (9-30) umol/L Total Creatine Kinase 90 (30-135) U/L CK-MB (CK-2) TNP CK-MB (CK-2) Rel Index TNP Troponin I 0.461 H* (0.01-0.034) ng/mL Total Protein (6.3-8.2) g/dL Albumin (3.5-5.0) g/dL Globulin (1.7-4.1) g/dL Albumin/Globulin Ratio (1.0-2.8) Lipase (23-300) U/L Ethyl Alcohol ( - 10) mg/dL SARS-CoV-2 (PCR) Negative (Negative) Point of Care Testing Glucose POC [address] scan - head: Radiologist Impression: No acute disease in the brain. Remote infarcts in the right thalamus and right lentiform nucleoli. Chronic small-vessel ischemic changes and parenchymal atrophy noted. Chest x-ray: Radiologist Impression: No cardiomegaly. Normal mediastinal contours. No pneumo. No opacity. No pleural effusion. Normal upper abdomen. No acute fracture. Fixation of the left proximal humerus. No acute findings. ECG Data Attestation: I personally reviewed and interpreted this ECG as follows: Interpretation: Sinus rhythm rate of 81, NH 152 QRS 88 QTC of 450. T wave inversion 1 and avL, flattened t waves lateral leads. Similar appearing EKG from 04/04/2020 with no new EKG changes appreciated today. EKG2. Sinus rhythm rate of 72, NH 52 QRS 86 and QTC 442. Patient has T-wave inversion in 1 and aVL once again demonstrated. She also has the 1-3 changes still present, patient may have some increased depression in 4,5,6. Discharge Plan Departure Patient Disposition: [facility] Clinical Impression: Myocardial infarction, Weakness, Acute on chronic kidney failure, Elevated troponin Prescriptions: No Action atorvastatin 40 mg tablet 40 mg PO QPM RF: 0 cholecalciferol (vitamin D3) [Vitamin D3] 1,000 unit Capsule 3,000 unit PO DAILY RF: 0 insulin aspart U-100 [Novolog Flexpen U-100 Insulin] 100 UNIT/1 ML insulin pen 1 dose subcut QIDACHS RF: 0 hydralazine 10 mg Tablet 20 mg PO BID RF: 0 tizanidine 2 mg Tablet 2 mg PO Q8H PRN (Reason: Muscle Spasm) RF: 0 sucralfate 1 gram Tablet 1 g PO QID RF: 0 cyanocobalamin (vitamin B-12) 1,000 mcg Tablet 1,000 mcg PO DAILY RF: 0 tramadol 50 mg tablet 50 mg PO BID PRN (Reason: Pain (Scale Score 7-10)) RF: 0 spironolactone 25 mg tablet 25 mg PO DAILY RF: 0 pantoprazole 40 mg tablet,delayed release (DR/EC) 40 mg PO BID RF: 0 ondansetron 4 mg tablet,disintegrating 8 mg PO Q6H PRN (Reason: nausea and vomiting) RF: 0 propranolol 20 mg tablet 20 mg PO DAILY RF: 0 Lantus U-100 Insulin 100 unit/mL Solution 11 unit SUBCUT DAILY RF: 0 aspirin 81 mg Tablet,Delayed Release (Dr/Ec) 81 mg PO BID Qty: 30 RF: 0 docusate sodium [DOK] 100 mg Capsule 100 mg PO BID Qty: 14 RF: 0 oxycodone 5 mg Tablet 5 mg PO Q3HR PRN (Reason: Pain, Moderate (4-6)) Qty: 15 RF: 0 Referrals: Jyoti Streeter MD [Primary Care Provider] -
--- NOTE | 2020-07-09 23:31 | DI.CT.S_ITS ---
PROCEDURE: CT HEAD/BRAIN WO CON INDICATIONS: weakness generalized TECHNIQUE: Noncontrast 4.5 mm thick angled axial sections acquired from the foramen magnum to the vertex, with coronal and sagittal reformats. For radiation dose reduction, the following was used: automated exposure control, adjustment of mA and/or kV according to patient size. COMPARISON: [facility], CT, CT HEAD/BRAIN WO CON, 03/07/2020, 16:08. FINDINGS: Image quality: Excellent. CSF spaces: Basal cisterns are patent. No extra-axial fluid collections. The ventricles are symmetric in size and shape. Brain: No intracranial bleeds or masses. There is moderate cerebral volume loss for age, with resultant ventricular and sulcal prominence. There are severe periventricular and deep white matter chronic small vessel ischemic changes. Small chronic right thalamic and right internal capsule lacunar infarcts. There is intracranial internal carotid artery atherosclerosis. Skull and face: Calvarium and visualized facial bones appear intact, without suspicious lesions. Sinuses: Visualized sinuses and mastoids are clear. IMPRESSION: No acute intracranial disease process. Dictated by: Rosalinda Suazo MD, PhD on 07/10/2020 at 7:23 Approved by: Rosalinda Suazo MD, PhD on 07/10/2020 at 7:25
[2020-07-10 00:17] LABS: Add Manual Diff / Slide Review NO; Basophils Absolute Auto 100 /uL (0-100); Eosinophils Absolute Auto 100 /uL (0-450); Eosinophils Percent Auto 0.8 % (2-4); Hematocrit 36.9 % (36-46); Hemoglobin 11.8 g/dL (12.0-16.0); Lymphocytes Absolute Auto 2100 /uL (1100-4500); Lymphocytes Percent Auto 23.7 % (25-40); Mean Corpuscular Hemoglobin 27.6 PG (26-34); Mean Corpuscular Volume 86.4 fL (80-100); Monocytes Absolute Auto 800 /uL (0-900); Monocytes Percent Auto 8.8 % (3-14); Neutrophils Absolute Auto 5700 /uL (1500-7000); Neutrophils Percent Auto 65.7 % (50-75); Platelet Count 259 X10^3/uL (150-400); Red Blood Cell Count 4.27 X10^6/uL (4.0-5.2); White Blood Cell Count 8.7 X10^3/uL (4.5-11.0)
[2020-07-10 00:29] LABS: Alanine Aminotransferase 14 IU/L (<35); Alkaline Phosphatase 64 U/L (38-126); Aspartate Aminotransferase 31 IU/L (14-36); Bilirubin Total 0.3 mg/dL (0.2-1.3); Blood Urea Nitrogen 30 mg/dL (7-17); Calcium 9.4 mg/dL (8.4-10.2); Carbon Dioxide 22 mmol/L (22-32); Chloride 111 mmol/L (98-107); Creatine Kinase 84 U/L (30-135); Estimated Glomerular Filt Rate 32.9 mL/min (>60); Glucose 213 mg/dL (80-110); HEMOLYSIS < 15 (0-50); Sodium 135 mmol/L (137-145)
[2020-07-10 00:31] LABS: INR 0.9 (0.9-1.3); Prothrombin Time 10.7 SECONDS (10.1-12.7)
[2020-07-10 00:34] LABS: PTT Partial Thromboplastin Tim 33 SECONDS (26.4-36.2)
[2020-07-10 00:43] LABS: Lipase 14 U/L (23-300)
[2020-07-10 00:51] LABS: Ammonia (NH3) < 9 umol/L (9-30)
--- NOTE | 2020-07-10 00:52 | DI.RAD.S_ITS ---
PROCEDURE: XR CHEST 1V INDICATIONS: weakness TECHNIQUE: One view of the chest was acquired. COMPARISON: [facility], CR, XR CHEST 1 VIEW, 07/10/2020, 7:38. [facility], CT, CT HEAD/BRAIN WO CON, 07/10/2020, 0:06. [facility], CR, XR CHEST 1V, 03/07/2020, 15:50. FINDINGS: Surgical changes and devices: Left proximal humerus postoperative change can be seen. Lungs and pleura: On this semiupright portable chest examination, no large pneumothorax or large pleural effusions are seen. No focal infiltrates are seen. Mediastinum: The cardiac contours are within normal limits. The aorta demonstrates calcification and tortuosity. Bones and chest wall: No suspicious bony lesions. Overlying soft tissues appear unremarkable. IMPRESSION: No nicolette, acute abnormality can be seen. Postoperative and degenerative changes are seen. Note: No significant discrepancy from the preliminary report. Dictated by: Chase Mensah M.D. on 07/10/2020 at 7:09 Approved by: Chase Mensah M.D. on 07/10/2020 at 7:10
[2020-07-10 00:55] LABS: Ethanol (ETOH) < 10 mg/dL
[2020-07-10 01:05] LABS: Troponin I 0.426 ng/mL (0.01-0.034)
[2020-07-10] MEDS: SODIUM CHLORIDE 0.9% 1,000 ML 150 ML IV (01:05)
[2020-07-10] MEDS: ASPIRIN 81 MG CHEW TAB 324 MG PO (01:06)
[2020-07-10 01:39] LABS: COVID19 -Nasal RAPID Negative (Negative)
[2020-07-10 02:29] VITALS: BP 123/68; PULSE 75; RESP 15; O2SAT 97
[2020-07-10 02:41] LABS: Creatine Kinase 90 U/L (30-135)
[2020-07-10 02:55] LABS: Troponin I 0.461 ng/mL (0.01-0.034)
[2020-07-10 03:05] VITALS: BP 109/67; PULSE 72; RESP 18
[2020-07-10 03:30] VITALS: BP 112/68; PULSE 72; RESP 19
[2020-07-10] MEDS: HEPARIN DRIP 25,000 UNIT/500 ML IV.SOLN 20 UNIT IV (03:36)
[2020-07-10] MEDS: HEPARIN 5,000 UNIT/ML VIAL 5400 UNIT IV (03:37)
[2020-07-10 04:00] VITALS: BP 113/68; PULSE 76; RESP 25; O2SAT 98
[2020-07-10 04:30] VITALS: BP 118/69; PULSE 71; RESP 12; O2SAT 99
== END 2020-07-10 04:50 | disposition short-term general hospital (02) ==
PROVIDERS: Emergency Provider Emergency Medicine; PCP Family Medicine
DX: I21.9 Acute myocardial infarction, unspecified (principal); R77.8 Other specified abnormalities of plasma proteins; N17.9 Acute kidney failure, unspecified; R53.1 Weakness; E11.9 Type 2 diabetes mellitus without complications; E78.5 Hyperlipidemia, unspecified; Z86.73 Personal history of transient ischemic attack (TIA), and cerebral infarction without residual deficits; Z79.82 Long term (current) use of aspirin; K70.30 Alcoholic cirrhosis of liver without ascites; I10 Essential (primary) hypertension; Z20.822 Contact with and (suspected) exposure to COVID-19
CPT/HCPCS: 36415; 70450; 71045; 80053; 80320; 82140; 82550; 82962; 83605; 83690; 84484; 85025; 85610; 85730; 87040; 87635; 93005; 93010; 96361; 96365; 96375; 99284; C9803; J1644

== ENCOUNTER 2020-08-17 16:26 | Inpatient (IN) | payer MEDICARE, MEDICAID, SELFPAY ==
[2019-12-26 16:38] VITALS: BMI 19.1
[2020-08-17] VITALS (15 sets, daily range): BP systolic 74–132; BP diastolic 50–72; PULSE 114–130; RESP 14–30; TEMP 36.3–37; O2SAT 93–100; BMI 24.7
--- NOTE | 2020-08-17 16:42 | ED_ITS ---
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 has been keeping track of glucose 2 days ago it was doing well in the 100 yesterday it seemed to creep up to about 250 and today day this morning it was 523 and has increased to greater than 600. They have home health available who has come in to check on her today home health noted that her heart rate was quite elevated and had a glucose greater than 600 at which point she was transferred to the ER for further evaluation. Patient is feeling weak but has actually no complaints. She denies palpitations chest pain shortness of breath nausea or vomiting. She does have cirrhosis but has not had paracentesis it is managed currently with diuretics. She has no abdominal pain and has not had any increase in abdominal distention. She was at [facility] July 10 through the with CVA and and STEMI. Related Data Home Medications Medication Instructions Recorded Confirmed atorvastatin 40 mg PO QPM 10/08/17 12/26/19 cholecalciferol (vitamin D3) 3,000 unit PO DAILY 10/08/17 12/26/19 [Vitamin D3] insulin aspart U-100 [Novolog 1 dose SUBCUT QIDACHS 10/08/17 12/26/19 Flexpen U-100 Insulin] cyanocobalamin (vitamin B-12) 1,000 mcg PO DAILY 08/02/19 12/26/19 hydralazine 20 mg PO BID 08/02/19 12/26/19 sucralfate 1 g PO QID 08/02/19 12/26/19 tizanidine 2 mg PO Q8H PRN 08/02/19 12/26/19 Lantus U-100 Insulin 11 unit SUBCUT DAILY 12/26/19 12/26/19 ondansetron 8 mg PO Q6H PRN 12/26/19 12/26/19 pantoprazole 40 mg PO BID 12/26/19 12/26/19 propranolol 20 mg PO DAILY 12/26/19 12/26/19 spironolactone 25 mg PO DAILY 12/26/19 12/26/19 tramadol 50 mg PO BID PRN 12/26/19 12/26/19 Previous Rx's Medication Instructions Recorded aspirin 81 mg PO BID #30 tab 12/29/19 docusate sodium [DOK] 100 mg PO BID #14 cap 12/29/19 oxycodone 5 mg PO Q3HR PRN #15 tab 12/29/19 Allergies Allergy/AdvReac Type Severity Reaction Status Date / Time Iodine and Iodide Containing Allergy Unknown Verified 05/02/20 14:24 Produc [IODINE AND IODIDE CONTAINING PRODUC] latex [LATEX] Allergy Unknown Verified 05/02/20 14:24 Review of Systems Review of Systems ROS Unobtainable: All systems reviewed & are unremarkable except as noted in HPI and below Constitutional Constitutional: Denies chills, Denies fever(s), Denies lethargy and Reports weakness Cardiovascular Cardiovascular: Denies chest pain, Denies syncope, Denies leg edema, Denies lightheadedness, Denies dyspnea and Denies dyspnea on exertion Respiratory Respiratory: Denies cough, Denies dyspnea, Denies dyspnea on exertion and Denies wheezing Gastrointestinal Gastrointestinal: Denies abdominal pain, Denies change in bowel habits, Denies diarrhea, Denies nausea and Denies vomiting Musculoskeletal Musculoskeletal: Denies back pain and Denies myalgias Integumentary/Breasts Skin/Breast: Denies pruritus, Denies erythema, Denies rash and Denies wounds Neurologic Neurologic: Denies syncope and Reports weakness Allergic/Immunologic Allergic/Immunologic: Denies wheezing Patient History Medical History Dow's esophagus with esophagitis CVA (cerebral vascular accident) Dementia Diabetes Gallbladder disease GERD (gastroesophageal reflux disease) Hyperlipidemia Hypertension Overactive bladder Subdural hematoma Upper GI bleed Surgical History History of cholecystectomy Tubal ligation status Family History Mother Heart disease Father No problems noted. Social History household members: significant other Smoking Status: Current some day smoker alcohol intake: former Smoking Status: Current some day smoker tobacco type: cigarettes alcohol intake frequency: holidays/special occasions only Alcohol type: hard liquor Substance Use Type: does not use Exam Initial Vital Signs Initial Vital Signs: Vital Signs Pulse Rate 125 H 08/17/20 16:32 Respiratory Rate 26 H 08/17/20 16:32 Pulse Oximetry 97 08/17/20 16:32 GENERAL: Week 65-year-old female HEENT: Head atraumatic,EOMI, pupils reactive, face symmetric, moist mucous membranes CARDIOVASCULAR: Regular rate and rhythm without murmurs, rubs or gallops. RESPIRATORY: Breath sounds equal bilaterally, no wheezes rales or rhonchi. ABDOMEN: Soft, mild distention but no tenderness no guarding no rebound EXTREMITIES: Normal range of motion, no clubbing or edema. Neurovascularly intact NEUROLOGICAL: Alert and oriented x3, java jsf developer strength equal bilaterally SKIN: Warm, dry, no laceration, no petechiae, no rashes or lesions. Course Orders Ordered: ED Orders 08/17/20 16:30 Blood Culture Stat 08/17/20 16:41 XR chest 1V Stat 08/17/20 16:42 Venous Blood Gas Stat 08/17/20 16:53 Complete Blood Count AUTO DIFF Stat Comprehensive Metabolic Panel Stat Ketones (Beta-Hydroxybutyrate) Stat Lactate (Lactic Acid) Stat Lipase Stat Procalcitonin Stat Troponin & CK Cardiac Panel Stat 08/17/20 17:05 COVID19 - ADMIT (IT INVESTMENT/PORTFOLIO MANAGER swab/PCR) Stat 08/17/20 18:00 Urinalysis and Microscopic Stat Urine Culture Stat Discontinued Medications Sodium Chloride (Normal Saline 0.9%) 1,000 mls @ 1,000 mls/hr IV BOLUS ONE Stop: 08/17/20 17:39 Last Infusion: 08/17/20 19:06 Dose: 0 mls/hr Documented by: Admin: 08/17/20 17:03 Dose: 1,000 mls/hr Documented by: FRANKO Insulin Human Regular (Insulin Regular 100 Unit/Ml 3 Ml Vial) 10 unit SUBCUT NOW ONE Stop: 08/17/20 18:47 Last Admin: 08/17/20 18:56 Dose: 10 unit Documented by: FRANKO Cosigned by: SHERRIE Vital Signs Vital signs: Vital Signs - 8 hr 08/17/20 16:32 08/17/20 16:40 08/17/20 17:00 Temperature 98.6 F Pulse Rate 125 H 125 H 125 H Respiratory Rate 26 H 14 25 H Blood Pressure 111/66 111/66 Pulse Oximetry 97 97 95 08/17/20 17:30 08/17/20 18:00 08/17/20 18:30 Temperature Pulse Rate 126 H 123 H 115 H Respiratory Rate 28 H 28 H 21 Blood Pressure 117/69 101/68 Pulse Oximetry 98 MDM - Altered Mental Status Lab Data Attestation: I reviewed the patient's lab results. Result diagrams: 08/17/20 16:53 08/17/20 16:53 Labs: Lab Results 08/17/20 08/17/20 08/17/20 Range/Units 16:42 16:53 16:53 WBC 26.6 H (4.5-11.0) X10^3/uL RBC 3.32 L (4.0-5.2) X10^6/uL Hgb 9.3 L (12.0-16.0) g/dL Hct 29.7 L (36-46) % MCV 89.6 (80-100) fL MCH 28.1 (26-34) PG MCHC 31.3 (30-36) % RDW 15.6 H (11.6-14.8) % Plt Count 261 (150-400) X10^3/uL Neut % (Auto) 90.0 H (50-75) % Lymph % (Auto) 3.6 L (25-40) % [place] % (Auto) 6.1 (3-14) % Eos % (Auto) 0.0 L (2-4) % Baso % (Auto) 0.3 (0-2) % Neut # (Auto) 51289 H (5666-3955) /uL Lymph # (Auto) 1000 L (5533-8266) /uL [place] # (Auto) 1600 H (0-900) /uL Eos # (Auto) 0 (0-450) /uL Baso # (Auto) 100 (0-100) /uL VBG pH 7.41 (7.33-7.43) VBG pCO2 30.0 L (45-50) mmHg VBG pO2 46 H (35-45) mmHg VBG HCO3 19 L (23-28) mmol/L VBG Total CO2 20 L (24-29) mmol/L VBG O2 Saturation 83 H (70-75) % VBG Base Excess -6.0 L (0-4) mmol/L Sodium 129 L (137-145) mmol/L Potassium 4.4 (3.4-5.1) mmol/L Chloride 88 L (98-107) mmol/L Carbon Dioxide 16 L (22-32) mmol/L BUN 86 H (7-17) mg/dL Creatinine 2.18 H (0.52-1.04) mg/dL Estimated GFR 22.7 L (>60) mL/min BUN/Creatinine Ratio 39.4 H (6-22) Glucose 773 H* (80-110) mg/dL Lactate (0.7-2.1) mmol/L Calcium 9.0 (8.4-10.2) mg/dL Total Bilirubin 0.7 (0.2-1.3) mg/dL AST 30 (14-36) IU/L ALT 21 (<35) IU/L Alkaline Phosphatase 63 (38-126) U/L Total Creatine Kinase 132 (30-135) U/L CK-MB (CK-2) 10.90 H (<2.37) ng/mL CK-MB (CK-2) Rel Index 8.3 H* (1.5-5.0) % Troponin I 0.192 H* (0.01-0.034) ng/mL Total Protein 5.7 L (6.3-8.2) g/dL Albumin 3.4 L (3.5-5.0) g/dL Globulin 2.3 (1.7-4.1) g/dL Albumin/Globulin Ratio 1.5 (1.0-2.8) Lipase (23-300) U/L Procalcitonin 0.33 (<0.5) ng/mL Urine Color Urine Appearance Urine pH (4.5-8.0) Ur Specific [place] (1.000-1.035) Urine Protein (Negative) Urine Glucose (UA) (Negative) g/dL Urine Ketones (NEGATIVE) Urine Occult Blood (Negative) Urine Nitrate (Negative) Urine Bilirubin (NEGATIVE) Urine Urobilinogen (0.2) E.U./dL Ur Leukocyte Esterase (NEGATIVE) Urine RBC (0-5/HPF) Urine WBC (0-5/HPF) Ur Squamous Epith Cells (0-5/HPF) Amorphous Sediment Urine Bacteria (None) Urine Mucus (Negative) Ur Culture Indicated? Ketones 9.33 H (<0.27) mmol/L SARS-CoV-2 (PCR) (Negative) 08/17/20 08/17/20 08/17/20 Range/Units 16:53 16:53 17:05 WBC (4.5-11.0) X10^3/uL RBC (4.0-5.2) X10^6/uL Hgb (12.0-16.0) g/dL Hct (36-46) % MCV (80-100) fL MCH (26-34) PG MCHC (30-36) % RDW (11.6-14.8) % Plt Count (150-400) X10^3/uL Neut % (Auto) (50-75) % Lymph % (Auto) (25-40) % [place] % (Auto) (3-14) % Eos % (Auto) (2-4) % Baso % (Auto) (0-2) % Neut # (Auto) (9747-1497) /uL Lymph # (Auto) (6127-2791) /uL [place] # (Auto) (0-900) /uL Eos # (Auto) (0-450) /uL Baso # (Auto) (0-100) /uL VBG pH (7.33-7.43) VBG pCO2 (45-50) mmHg VBG pO2 (35-45) mmHg VBG HCO3 (23-28) mmol/L VBG Total CO2 (24-29) mmol/L VBG O2 Saturation (70-75) % VBG Base Excess (0-4) mmol/L Sodium (137-145) mmol/L Potassium (3.4-5.1) mmol/L Chloride (98-107) mmol/L Carbon Dioxide (22-32) mmol/L BUN (7-17) mg/dL Creatinine (0.52-1.04) mg/dL Estimated GFR (>60) mL/min BUN/Creatinine Ratio (6-22) Glucose (80-110) mg/dL Lactate 2.5 H (0.7-2.1) mmol/L Calcium (8.4-10.2) mg/dL Total Bilirubin (0.2-1.3) mg/dL AST (14-36) IU/L ALT (<35) IU/L Alkaline Phosphatase (38-126) U/L Total Creatine Kinase (30-135) U/L CK-MB (CK-2) (<2.37) ng/mL CK-MB (CK-2) Rel Index (1.5-5.0) % Troponin I (0.01-0.034) ng/mL Total Protein (6.3-8.2) g/dL Albumin (3.5-5.0) g/dL Globulin (1.7-4.1) g/dL Albumin/Globulin Ratio (1.0-2.8) Lipase 20 L (23-300) U/L Procalcitonin (<0.5) ng/mL Urine Color Urine Appearance Urine pH (4.5-8.0) Ur Specific [place] (1.000-1.035) Urine Protein (Negative) Urine Glucose (UA) (Negative) g/dL Urine Ketones (NEGATIVE) Urine Occult Blood (Negative) Urine Nitrate (Negative) Urine Bilirubin (NEGATIVE) Urine Urobilinogen (0.2) E.U./dL Ur Leukocyte Esterase (NEGATIVE) Urine RBC (0-5/HPF) Urine WBC (0-5/HPF) Ur Squamous Epith Cells (0-5/HPF) Amorphous Sediment Urine Bacteria (None) Urine Mucus (Negative) Ur Culture Indicated? Ketones (<0.27) mmol/L SARS-CoV-2 (PCR) Negative (Negative) 08/17/20 Range/Units 18:00 WBC (4.5-11.0) X10^3/uL RBC (4.0-5.2) X10^6/uL Hgb (12.0-16.0) g/dL Hct (36-46) % MCV (80-100) fL MCH (26-34) PG MCHC (30-36) % RDW (11.6-14.8) % Plt Count (150-400) X10^3/uL Neut % (Auto) (50-75) % Lymph % (Auto) (25-40) % [place] % (Auto) (3-14) % Eos % (Auto) (2-4) % Baso % (Auto) (0-2) % Neut # (Auto) (4247-6839) /uL Lymph # (Auto) (4313-8589) /uL [place] # (Auto) (0-900) /uL Eos # (Auto) (0-450) /uL Baso # (Auto) (0-100) /uL VBG pH (7.33-7.43) VBG pCO2 (45-50) mmHg VBG pO2 (35-45) mmHg VBG HCO3 (23-28) mmol/L VBG Total CO2 (24-29) mmol/L VBG O2 Saturation (70-75) % VBG Base Excess (0-4) mmol/L Sodium (137-145) mmol/L Potassium (3.4-5.1) mmol/L Chloride (98-107) mmol/L Carbon Dioxide (22-32) mmol/L BUN (7-17) mg/dL Creatinine (0.52-1.04) mg/dL Estimated GFR (>60) mL/min BUN/Creatinine Ratio (6-22) Glucose (80-110) mg/dL Lactate (0.7-2.1) mmol/L Calcium (8.4-10.2) mg/dL Total Bilirubin (0.2-1.3) mg/dL AST (14-36) IU/L ALT (<35) IU/L Alkaline Phosphatase (38-126) U/L Total Creatine Kinase (30-135) U/L CK-MB (CK-2) (<2.37) ng/mL CK-MB (CK-2) Rel Index (1.5-5.0) % Troponin I (0.01-0.034) ng/mL Total Protein (6.3-8.2) g/dL Albumin (3.5-5.0) g/dL Globulin (1.7-4.1) g/dL Albumin/Globulin Ratio (1.0-2.8) Lipase (23-300) U/L Procalcitonin (<0.5) ng/mL Urine Color Yellow Urine Appearance Cloudy Urine pH 5.5 (4.5-8.0) Ur Specific [place] 1.015 (1.000-1.035) Urine Protein 2+ H (Negative) Urine Glucose (UA) 2+ H (Negative) g/dL Urine Ketones 1+ H (NEGATIVE) Urine Occult Blood 1+ H (Negative) Urine Nitrate Negative (Negative) Urine Bilirubin Negative (NEGATIVE) Urine Urobilinogen 0.2 (0.2) E.U./dL Ur Leukocyte Esterase Trace H (NEGATIVE) Urine RBC 1-5/hpf (0-5/HPF) Urine WBC 30-100/hpf H (0-5/HPF) Ur Squamous Epith Cells 0-1 /hpf (0-5/HPF) Amorphous Sediment 1+ Urine Bacteria Many (>30) H (None) Urine Mucus 1+ H (Negative) Ur Culture Indicated? Specimen cultured Ketones (<0.27) mmol/L SARS-CoV-2 (PCR) (Negative) Point of Care Testing Glucose POC 500 Imaging Data Chest x-ray: Radiologist's Impression: PROCEDURE: XR CHEST 1V INDICATIONS: dka TECHNIQUE: One view of the chest was acquired. COMPARISON: [facility], CR, XR CHEST 1V, 03/07/2020, 15:50. [facility], CR, XR CHEST 1 VIEW, 07/10/2020, 7:38. [facility], CR, XR CHEST 1V, 07/10/2020, 0:59. FINDINGS: Surgical changes and devices: Postoperative change of the left proximal humerus can be seen. Cholecystectomy clips are seen. Lungs and pleura: Lungs are clear. No pleural effusions or pneumothorax. Mediastinum: Mediastinal contours appear normal. Heart size is normal. Bones and chest wall: No suspicious bony lesions. Age-appropriate bony degenerative changes are seen. Overlying soft tissues appear unremarkable. IMPRESSION: Clear lungs. Postoperative and degenerative changes are seen. Dictated by: Chase Mensah M.D. on 08/17/2020 at 16:06 ECG Data Attestation: I personally reviewed and interpreted this ECG as follows: Prior ECG tracings: available for review Interpretation: Sinus tachycardia rate 118 p.r. interval 146 QRS [address] changes MDM Narrative Medical decision making narrative: Anion gap of 25 but pH of 7.4 lactic acid 2.5 and glucose of 773. Patient does have ketones. She is found to be hyperglycemic. She is also found to have positive troponin. I have discussed case with Dr. Charles mcqueen on-call Cardiology, he has reviewed records from [facility] last month. He does suspect that there is probably coronary artery disease patient states he has multiple risk factors for it. However at this time he states patient diabetes should get better under controlled. At this time he does not recommend heparin or Lovenox but agrees with aspirin and Plavix. Patient does have leukocytosis of 26,000 however no acute infection has been found. Possibly from elevated glucose chest x-ray is clear. She has been afebrile. His at this time I have discussed case with Dr. wolf who agrees with no antibiotics. She has been updated on Cardiology recommendations and will follow troponin. Discharge Plan Departure Patient Disposition: Admitted As Inpatient Clinical Impression: Acute hyperglycemia, Non-ST elevation [place] (NSTEMI) Admit Date/Time: 08/17/20 18:44 Admit Provider: Eliana Wolf
[2020-08-17 16:50] LABS: pH VBG 7.41 (7.33-7.43)
[2020-08-17 16:51] LABS: HCO3 VBG 19 mmol/L (23-28); Oxygen Saturation VBG 83 % (70-75); PO2 VBG 46 mmHg (35-45); Total CO2 VBG 20 mmol/L (24-29)
[2020-08-17] MEDS: SODIUM CHLORIDE 0.9% 1,000 ML 1000 ML IV (17:03)
[2020-08-17 17:18] LABS: Add Manual Diff / Slide Review NO; Basophils Absolute Auto 100 /uL (0-100); Basophils Percent Auto 0.3 % (0-2); Eosinophils Absolute Auto 0 /uL (0-450); Hematocrit 29.7 % (36-46); Hemoglobin 9.3 g/dL (12.0-16.0); Lactate (Lactic Acid) 2.5 mmol/L (0.7-2.1); Lipase 20 U/L (23-300); Lymphocytes Absolute Auto 1000 /uL (1100-4500); Lymphocytes Percent Auto 3.6 % (25-40); Mean Corpuscular HGB Conc 31.3 % (30-36); Mean Corpuscular Hemoglobin 28.1 PG (26-34); Mean Corpuscular Volume 89.6 fL (80-100); Monocytes Absolute Auto 1600 /uL (0-900); Monocytes Percent Auto 6.1 % (3-14); Neutrophils Absolute Auto 24000 /uL (1500-7000); Platelet Count 261 X10^3/uL (150-400); Red Blood Cell Count 3.32 X10^6/uL (4.0-5.2); Red Cell Distribution Width 15.6 % (11.6-14.8); White Blood Cell Count 26.6 X10^3/uL (4.5-11.0)
[2020-08-17 17:35] LABS: Alanine Aminotransferase 21 IU/L (<35); Albumin 3.4 g/dL (3.5-5.0); Albumin Globulin Ratio 1.5 (1.0-2.8); Alkaline Phosphatase 63 U/L (38-126); Aspartate Aminotransferase 30 IU/L (14-36); BUN Creatinine Ratio 39.4 (6-22); Bilirubin Total 0.7 mg/dL (0.2-1.3); Blood Urea Nitrogen 86 mg/dL (7-17); Carbon Dioxide 16 mmol/L (22-32); Chloride 88 mmol/L (98-107); Creatine Kinase 132 U/L (30-135); Estimated Glomerular Filt Rate 22.7 mL/min (>60); Globulin 2.3 g/dL (1.7-4.1); HEMOLYSIS < 15 (0-50); Potassium 4.4 mmol/L (3.4-5.1); Sodium 129 mmol/L (137-145); Total Protein 5.7 g/dL (6.3-8.2)
[2020-08-17 17:37] LABS: Ketones (Beta-Hydroxybutyrate) 9.33 mmol/L (<0.27)
[2020-08-17 17:45] LABS: Glucose 773 mg/dL (80-110)
[2020-08-17 17:51] LABS: Procalcitonin 0.33 ng/mL (<0.5)
[2020-08-17 18:14] LABS: Troponin I 0.192 ng/mL (0.01-0.034)
[2020-08-17 18:15] LABS: CKMB % Relative Index 8.3 % (1.5-5.0)
[2020-08-17 18:39] LABS: Appearance Urine UA CLOUDY; Bilirubin Urine UA NEGATIVE (NEGATIVE); Color Urine UA YELLOW; Glucose Urine UA 2+ g/dL (Negative); Ketones Urine UA 1+ (NEGATIVE); Leukocyte Esterase Urine UA TRACE (NEGATIVE); Nitrite Urine UA NEGATIVE (Negative); Occult Blood Urine UA 1+ (Negative); Protein Urine UA 2+ (Negative); Specific Gravity Urine UA 1.015 (1.000-1.035); Urobilinogen Urine UA 0.2 E.U./dL (0.2)
[2020-08-17 18:49] LABS: pH Urine UA 5.5 (4.5-8.0)
[2020-08-17 18:53] LABS: Amorphous Sediment Urine 1+; Bacteria Urine Many (>30); Culture Indicated Urine Specimen Cultured; Mucus Urine 1+ (Negative); RBC Urine 1-5/HPF (0-5/HPF); Squamous Epithelial Cell Urine 0-1 /HPF (0-5/HPF); WBC Urine 30-100/HPF (0-5/HPF)
[2020-08-17] MEDS: INSULIN REGULAR 100 UNIT/ML 3 ML VIAL 10 UNIT SUBCUT (18:56)
[2020-08-17 18:57] LABS: Reflexed Lactate in 2 Hours Y
[2020-08-17 19:03] LABS: COVID19 - ADMIT (NP swab/PCR) Negative (Negative)
[2020-08-17 19:36] LABS: Lactate 2HR (Lactic Acid Rflx) 2.3 mmol/L (0.7-2.1)
--- NOTE | 2020-08-17 20:03 | PC.NURSE ---
BG greater than 500, finger stick blood glucose unable to read. glucose lab draw ordered.
[2020-08-17 20:50] LABS: Hemoglobin A1C% w Est Avg Glu 10.8 % (4.0-6.0)
[2020-08-17 20:53] LABS: Glucose 750 mg/dL (80-110)
[2020-08-17 20:55] LABS: Salicylate 1.2 mg/dL (<20)
[2020-08-17 20:56] LABS: Amylase 41 U/L (30-110); Creatine Kinase 138 U/L (30-135)
[2020-08-17 21:06] LABS: Glucose 757 mg/dL (80-110)
[2020-08-17] MEDS: SODIUM CHLORIDE 0.45% 1,000 ML 150 ML IV (21:10)
[2020-08-17 21:11] LABS: Troponin I 0.275 ng/mL (0.01-0.034)
[2020-08-17] MEDS: INSULIN REGULAR, HUMAN 100 UNIT in SODIUM CHLORIDE 0.9% 100 ML 8.48 ML IV (21:13)
[2020-08-17 21:15] LABS: CKMB % Relative Index 7.8 % (1.5-5.0)
[2020-08-17] MEDS: ONDANSETRON 4 MG/2 ML INJ IV (21:17)
[2020-08-17 21:28] LABS: Carbon Dioxide 16 mmol/L (22-32); Chloride 90 mmol/L (98-107); HEMOLYSIS < 15 (0-50); Lipase 19 U/L (23-300); Potassium 4.2 mmol/L (3.4-5.1); Sodium 129 mmol/L (137-145)
--- NOTE | 2020-08-17 21:44 | PM.HP.1 ---
History of Present Illness History of Present Illness Date Patient Seen: 08/17/20 Time Patient Seen: 20:11 Chief complaint: Tachycardia Narrative: Patient is a 65-year-old female who is insulin-dependent diabetic who is known to be a brittle diabetic she also has a history of cirrhosis is presented to the ED with elevated heart rate in decreasing mental status. ED reported that has been keeping track of glucose 2 days ago it was doing well in the 100 yesterday it seemed to creep up to about 250 and today day this morning it was 523 and has increased to greater than 600. They have home health available who has come in to check on her today home health noted that her heart rate was quite elevated and had a glucose greater than 600 at which point she was transferred to the ER for further evaluation. Patient is feeling weak but has actually no complaints. She denies palpitations chest pain shortness of breath nausea or vomiting. She does have cirrhosis but has not had paracentesis it is managed currently with diuretics. She has no abdominal pain and has not had any increase in abdominal distention. She was at [facility] July 10 through the with CVA and and STEMI. ED Consult note:Anion gap of 25 but pH of 7.4 lactic acid 2.5 and glucose of 773. Patient does have ketones. She is found to be hyperglycemic. She is also found to have positive troponin. I have discussed case with Dr. Hernadez on-call Cardiology, he has reviewed records from [facility] last month. He does suspect that there is probably coronary artery disease patient states he has multiple risk factors for it. However at this time he states patient diabetes should get better under controlled. At this time he does not recommend heparin or Lovenox but agrees with aspirin and Plavix. Patient has a history of Cardiovascular disease, gallbladder disease, hypertention, Hyperlipidemia, insulin dependent type 2 diabetes, GERD, Cirrhosis, and Barrettes esophagus. Upon admit to the floor patient is lethargic, pale, skin is cool to the touch, arousable and responds to questions, some appropriately others are word salads, patient has impaired cognitive function baseline due to dementia. pt denies any CP, SOB, abd Pain, fever, body aches, or chills. Pt did complain of some mild nausea and feeling sick, pt never demonstrated vomiting or dry heaves, pt demonstarates no discomfort -pt was sent up from the ER without IV fluids running or insulin drip. admitting vital signs from ER temp 98.6? BP 108/72, HR 115, RR 20, O2 saturation 100% on room air. EKG: Sinus tachycardia rate 118 p.r. interval 146 QRS [address] changes. Patient had a glucose of 773 in ER was given 10 units of insulin and 1 bolus of fluid, repeat glucose on floor at 9:00 p.m. was 750. Patient's labs are as follows VBG pCO2 30 PO2 46 HC03 19, total CO2 20, O2 saturation 83%, base excess -6, WBC 26.6 with Neut# 20431, RBC 3.32 RDW 15.6, HGB 9.3, HCT 29.7, sodium 129, Cl 88, BUN 86, HC03 16, creatinine 2.18, EGFR 22.7, BUN creatinine ratio 39.4, lactic acid 2.3, albumin 3.4, initial troponin 0.192, repeat demonstrated an increase of 0.275, initial CK 10.90, repeat 10.80, CK-MB initial 8.3 repeat 7.8, lipase 20, procal 0.33, Ketones 9.33, u/a positive with glucose, ketones, blood, and wbc- culture pending. I suspect UTI causing sepsis/MARY Sofa score 6, anion gap 25, Patient's vital signs once on the floor for admit BP 87/55, HR 119, RR 22, O2 saturation 97% on room air. Patient's IV infiltrated, placed a 2nd line very tenious in the right hand after multiple attempts,PICC line team has been called & ordered. Pt was puling at the IV site and tubing, attempted to bandage hand & applied socks, had to apply wrist restraints to maintain IV access. Trop #1 0.192, #2 0.275 ordered EKG and compared with EKG from ED interupitation ealier today and reviewed 07/10/2020 EKG and EKG: Sinus tachycardia with PACs ventricular rate 120, TN interval 138, QRS duration 86, noted increased voltage in ST and T-wave changes in lead II, III, and AVF possible ischemia. Consulted with Dr. Cox on-call Cardioligist:I provided cardiac enzymes trends and ekg ST & T wave changes on EKG, pt denies CP or SOB, he advised to no longer track cardiac enzymes unless pt develops symptoms of cardiac distress, if patient becomes symptomatic start heparin drip. As transfer would not be approriate until DKA and sepsis stabalized. Patient History Medical History Dow's esophagus with esophagitis CVA (cerebral vascular accident) Dementia Diabetes Gallbladder disease GERD (gastroesophageal reflux disease) Hyperlipidemia Hypertension Overactive bladder Subdural hematoma Upper GI bleed Surgical History History of cholecystectomy Tubal ligation status Family & Social History Family History Mother Heart disease Father No problems noted. Social History: household members spouse Prior Living Arrangements House Safety & Behavioral: Feels Safe in Current Yes Environment Been Physically Hurt or No Threatened By a Person Tobacco & Substance use: Tobacco type cigarettes,cannabis/marijuana Smoking Status Current some day smoker alcohol intake former alcohol intake frequency holiday/special occasion Substance Use Type does not use Meds Home Medications and Allergies Home Medications Medication Instructions Recorded Confirmed Type atorvastatin 40 mg PO QPM 10/08/17 08/17/20 History cholecalciferol (vitamin D3) 3,000 unit PO DAILY 10/08/17 08/17/20 History [Vitamin D3] insulin aspart U-100 [Novolog 1 dose SUBCUT QIDACHS 10/08/17 08/17/20 History Flexpen U-100 Insulin] cyanocobalamin (vitamin B-12) 1,000 mcg PO DAILY 08/02/19 08/17/20 History hydralazine 20 mg PO BID 08/02/19 08/17/20 History sucralfate 1 g PO QID 08/02/19 08/17/20 History tizanidine 2 mg PO Q8H PRN 08/02/19 08/17/20 History Lantus U-100 Insulin 11 unit SUBCUT DAILY 12/26/19 08/17/20 History ondansetron 8 mg PO Q6H PRN 12/26/19 08/17/20 History pantoprazole 40 mg PO BID 12/26/19 08/17/20 History propranolol 20 mg PO DAILY 12/26/19 08/17/20 History spironolactone 25 mg PO DAILY 12/26/19 08/17/20 History tramadol 50 mg PO BID PRN 12/26/19 08/17/20 History aspirin 81 mg PO BID #30 tab 12/29/19 08/17/20 Rx docusate sodium [DOK] 100 mg PO BID #14 cap 12/29/19 08/17/20 Rx oxycodone 5 mg PO Q3HR PRN #15 tab 12/29/19 08/17/20 Rx Allergies Allergy/AdvReac Type Severity Reaction Status Date / Time Iodine and Iodide Containing Allergy Unknown Verified 05/02/20 14:24 Produc [IODINE AND IODIDE CONTAINING PRODUC] latex [LATEX] Allergy Unknown Verified 05/02/20 14:24 Review of Systems Review of Systems ROS: Yes unobtainable due to mental status Exam Vital Signs (past 8 hours): - 08/17/20 16:32 08/17/20 16:40 08/17/20 17:00 Temperature 98.6 F Pulse Rate 125 H 125 H 125 H Respiratory Rate 26 H 14 25 H Blood Pressure 111/66 111/66 Pulse Oximetry 97 97 95 08/17/20 17:30 08/17/20 18:00 08/17/20 18:30 Temperature Pulse Rate 126 H 123 H 115 H Respiratory Rate 28 H 28 H 21 Blood Pressure 117/69 101/68 Pulse Oximetry 98 08/17/20 19:00 08/17/20 20:13 Temperature 97.3 F L Pulse Rate 115 H 114 H Respiratory Rate 20 20 Blood Pressure 108/72 132/69 Pulse Oximetry 100 100 Oxygen Delivery Method Room Air Oxygen Flow Rate 0 Narrative Exam Narrative: General: Patient is a thin fragile apnic lethargic female poorly mourished who verbally denies distress but is in clear clinical distress at this time. HEENT: Normocephalic, atraumatic, extraocular muscles intact, oral pharynx is clear and mucous membranes are dry. Neck is supple and symmetric, trachea is midline, no adenopathy, Negative for JVD Chest: Normal AP diameter and contour without kyphoscoliosis, no nasal flaring, retractions, or tachypneic labored Lungs: Auscultation of all lung cuevas are clear without adventitious sounds, wheezes, rhonchi, or rales. Cardio: Tachy irregular rate and rhythm without murmur, rubs, or gallops, no carotid bruit, no cardiac pulsations present. Abdomen: Soft nontender, negative for organomegaly, or masses. Bowel sounds are hypoactive present in all 4 quadrants without guarding or rebound, no CVA tenderness. Musculoskeletal: Muscle strength and tone are equal within normal limits, no deformity, crepitus, effusions, cyanosis, clubbing or edema present. Full range of motion intact radial and pedal pulses are normal. Skin: Cool pale dry decreased turger and intact without rashes, ulcerations or petechiae. Neuro: Lethargic but wakes to stimuli, orientated x3, strength is +5/5 in all extremities, sensation to touch intact, no gross deficits noted of cranial nerves. Psych: Patient has a well-kept appearance, flat affect, impaired cognitive function. Objective Labs Result Diagrams: 08/17/20 16:53 08/17/20 20:30 Labs: Laboratory Results - last 24 hr 08/17/20 08/17/20 08/17/20 16:42 16:53 16:53 WBC 26.6 H RBC 3.32 L Hgb 9.3 L Hct 29.7 L MCV 89.6 MCH 28.1 MCHC 31.3 RDW 15.6 H Plt Count 261 Neut % (Auto) 90.0 H Lymph % (Auto) 3.6 L [place] % (Auto) 6.1 Eos % (Auto) 0.0 L Baso % (Auto) 0.3 Neut # (Auto) 07677 H Lymph # (Auto) 1000 L [place] # (Auto) 1600 H Eos # (Auto) 0 Baso # (Auto) 100 VBG pH 7.41 VBG pCO2 30.0 L VBG pO2 46 H VBG HCO3 19 L VBG Total CO2 20 L VBG O2 Saturation 83 H VBG Base Excess -6.0 L Sodium 129 L Potassium 4.4 Chloride 88 L Carbon Dioxide 16 L BUN 86 H Creatinine 2.18 H Estimated GFR 22.7 L BUN/Creatinine Ratio 39.4 H Glucose 773 H* Hemoglobin A1c Lactate Calcium 9.0 Total Bilirubin 0.7 AST 30 ALT 21 Alkaline Phosphatase 63 Total Creatine Kinase 132 CK-MB (CK-2) 10.90 H CK-MB (CK-2) Rel Index 8.3 H* Troponin I 0.192 H* Total Protein 5.7 L Albumin 3.4 L Globulin 2.3 Albumin/Globulin Ratio 1.5 Amylase Lipase Procalcitonin 0.33 Urine Color Urine Appearance Urine pH Ur Specific [place] Urine Protein Urine Glucose (UA) Urine Ketones Urine Occult Blood Urine Nitrate Urine Bilirubin Urine Urobilinogen Ur Leukocyte Esterase Urine RBC Urine WBC Ur Squamous Epith Cells Amorphous Sediment Urine Bacteria Urine Mucus Ur Culture Indicated? Salicylates Ketones 9.33 H SARS-CoV-2 (PCR) 08/17/20 08/17/20 08/17/20 16:53 16:53 17:05 WBC RBC Hgb Hct MCV MCH MCHC RDW Plt Count Neut % (Auto) Lymph % (Auto) [place] % (Auto) Eos % (Auto) Baso % (Auto) Neut # (Auto) Lymph # (Auto) [place] # (Auto) Eos # (Auto) Baso # (Auto) VBG pH VBG pCO2 VBG pO2 VBG HCO3 VBG Total CO2 VBG O2 Saturation VBG Base Excess Sodium Potassium Chloride Carbon Dioxide BUN Creatinine Estimated GFR BUN/Creatinine Ratio Glucose Hemoglobin A1c Lactate 2.5 H Calcium Total Bilirubin AST ALT Alkaline Phosphatase Total Creatine Kinase CK-MB (CK-2) CK-MB (CK-2) Rel Index Troponin I Total Protein Albumin Globulin Albumin/Globulin Ratio Amylase Lipase 20 L Procalcitonin Urine Color Urine Appearance Urine pH Ur Specific [place] Urine Protein Urine Glucose (UA) Urine Ketones Urine Occult Blood Urine Nitrate Urine Bilirubin Urine Urobilinogen Ur Leukocyte Esterase Urine RBC Urine WBC Ur Squamous Epith Cells Amorphous Sediment Urine Bacteria Urine Mucus Ur Culture Indicated? Salicylates Ketones SARS-CoV-2 (PCR) Negative 08/17/20 08/17/20 08/17/20 18:00 19:14 20:18 WBC RBC Hgb Hct MCV MCH MCHC RDW Plt Count Neut % (Auto) Lymph % (Auto) [place] % (Auto) Eos % (Auto) Baso % (Auto) Neut # (Auto) Lymph # (Auto) [place] # (Auto) Eos # (Auto) Baso # (Auto) VBG pH VBG pCO2 VBG pO2 VBG HCO3 VBG Total CO2 VBG O2 Saturation VBG Base Excess Sodium Potassium Chloride Carbon Dioxide BUN Creatinine Estimated GFR BUN/Creatinine Ratio Glucose 750 H* Hemoglobin A1c Lactate 2.3 H Calcium Total Bilirubin AST ALT Alkaline Phosphatase Total Creatine Kinase CK-MB (CK-2) CK-MB (CK-2) Rel Index Troponin I Total Protein Albumin Globulin Albumin/Globulin Ratio Amylase Lipase Procalcitonin Urine Color Yellow Urine Appearance Cloudy Urine pH 5.5 Ur Specific [place] 1.015 Urine Protein 2+ H Urine Glucose (UA) 2+ H Urine Ketones 1+ H Urine Occult Blood 1+ H Urine Nitrate Negative Urine Bilirubin Negative Urine Urobilinogen 0.2 Ur Leukocyte Esterase Trace H Urine RBC 1-5/hpf Urine WBC 30-100/hpf H Ur Squamous Epith Cells 0-1 /hpf Amorphous Sediment 1+ Urine Bacteria Many (>30) H Urine Mucus 1+ H Ur Culture Indicated? Specimen cultured Salicylates Ketones SARS-CoV-2 (PCR) 08/17/20 08/17/20 08/17/20 20:30 20:30 20:30 WBC RBC Hgb Hct MCV MCH MCHC RDW Plt Count Neut % (Auto) Lymph % (Auto) [place] % (Auto) Eos % (Auto) Baso % (Auto) Neut # (Auto) Lymph # (Auto) [place] # (Auto) Eos # (Auto) Baso # (Auto) VBG pH VBG pCO2 VBG pO2 VBG HCO3 VBG Total CO2 VBG O2 Saturation VBG Base Excess Sodium Potassium Chloride Carbon Dioxide BUN Creatinine Estimated GFR BUN/Creatinine Ratio Glucose Hemoglobin A1c 10.8 H Lactate Calcium Total Bilirubin AST ALT Alkaline Phosphatase Total Creatine Kinase CK-MB (CK-2) CK-MB (CK-2) Rel Index Troponin I Total Protein Albumin Globulin Albumin/Globulin Ratio Amylase 41 Lipase Procalcitonin Urine Color Urine Appearance Urine pH Ur Specific [place] Urine Protein Urine Glucose (UA) Urine Ketones Urine Occult Blood Urine Nitrate Urine Bilirubin Urine Urobilinogen Ur Leukocyte Esterase Urine RBC Urine WBC Ur Squamous Epith Cells Amorphous Sediment Urine Bacteria Urine Mucus Ur Culture Indicated? Salicylates 1.2 Ketones SARS-CoV-2 (PCR) 08/17/20 08/17/20 08/17/20 20:30 20:30 20:30 WBC RBC Hgb Hct MCV MCH MCHC RDW Plt Count Neut % (Auto) Lymph % (Auto) [place] % (Auto) Eos % (Auto) Baso % (Auto) Neut # (Auto) Lymph # (Auto) [place] # (Auto) Eos # (Auto) Baso # (Auto) VBG pH VBG pCO2 VBG pO2 VBG HCO3 VBG Total CO2 VBG O2 Saturation VBG Base Excess Sodium 129 L Potassium 4.2 Chloride 90 L Carbon Dioxide 16 L BUN Creatinine Estimated GFR BUN/Creatinine Ratio Glucose 757 H* Hemoglobin A1c Lactate Calcium Total Bilirubin AST ALT Alkaline Phosphatase Total Creatine Kinase 138 H CK-MB (CK-2) 10.80 H CK-MB (CK-2) Rel Index 7.8 H* Troponin I 0.275 H* Total Protein Albumin Globulin Albumin/Globulin Ratio Amylase Lipase 19 L Procalcitonin Urine Color Urine Appearance Urine pH Ur Specific [place] Urine Protein Urine Glucose (UA) Urine Ketones Urine Occult Blood Urine Nitrate Urine Bilirubin Urine Urobilinogen Ur Leukocyte Esterase Urine RBC Urine WBC Ur Squamous Epith Cells Amorphous Sediment Urine Bacteria Urine Mucus Ur Culture Indicated? Salicylates Ketones SARS-CoV-2 (PCR) Assessment & Plan Assessment & Plan narrative: This patient requires acute ICU care inpatient hospital management for DKA, MARY, sepsis, and hypomagnesium, fter failing outpatient management. The patient is at much higher risk for medical and surgical complications because of patient's June 2020 history of CVA and STEMI, dementia, insulin-dependent type 2 diabetes, hypertension, hyperlipidemia, cirrhosis, gallbladder disease, Dow's esophagus, and history of a subdural hematoma. These factors increase the difficulty and complexity of medical and surgical interventions and increases the chances of poor outcomes such as morbidity and mortality. 1. DKA, acute, present on admission secondary to insulin-dependent type 2 diabetes, acute, present admission, uncontrolled Patient's labs: VBG pCO2 30 PO2 46 HC03 19, total CO2 20, O2 saturation 83%, base excess -6,RBC 3.32 RDW 15.6, HGB 9.3, HCT 29.7, sodium 129, Cl 88, BUN 86, HC03 16, creatinine 2.18, EGFR 22.7, BUN creatinine ratio 39.4, lactic acid 2.3, albumin 3.4, initial troponin 0.192, repeat demonstrated an increase of 0.275, initial CK 10.90, repeat 10.80, CK-MB initial 8.3 repeat 7.8, lipase 20, procal 0.33, Ketones 9.33, u/a positive with glucose, ketones, blood, and wbc- culture pending. I suspect UTI causing sepsis/MARY Sofa score 6, anion gap 25, Patient's vital signs once on the floor for admit BP 87/55, HR 119, RR 22, O2 saturation 97% on room air. Patient's IV infiltrated, placed a 2nd line very tenious in the right hand after multiple attempts,PICC line team has been called & ordered. Pt was puling at the IV site and tubing, attempted to bandage hand & applied socks, had to apply wrist restraints to maintain IV access. Trop #1 0.192, #2 0.275 ordered EKG and compared with EKG from ED interupitation ealier today and reviewed 07/10/2020 EKG and EKG: noted increased voltage in ST and T-wave changes in lead II, III, and AVF possible ischemia. Consulted with Dr. Cox on-call Cardioligist:I provided cardiac enzymes trends and ekg ST & T wave changes on EKG, pt denies CP or SOB, he advised to no longer track cardiac enzymes unless pt develops symptoms of cardiac distress, then begin heparin drip. As transfer would not be approriate until DKA and sepsis stabalized. -patient to be monitored on tele medicine, vital signs q.4 hours, blood sugar checks Q 1 hour, BNP q.4 hours, intake and output monitored Q shift, weight measure daily, diet: low carbohydrate, -IV fluid initial normal saline 150 cc/hour-patient's initial blood sugar was 773 in the ER, was given 10 units R insulin SQ, -blood sugar 750 with an anion gap 25, ketones -Insulin drip was initiated at 6 units/hour with half-normal saline continue to titrate up to 15 units an hour. Check blood sugar Q 4 hour monitoring for the acidosis, PICC line was ordered. Midline placed @ 1215am ordered a norepinephrine 8 mcg/min drip to titrate to a map>65 -once blood sugar is below 250 change IV fluids to D5 and half at 150 cc, keep potassium above 3.3, once anion gap is less than 18 started on regular diet. -monitor blood sugar checks q.1 hour until blood sugar below 150, BMP q.4 hours checking for closing of the anion gap and potassium also monitor phosphorus and bicarb and assess for acute pancreatitis, cardiac arrhythmias and hyper osmolality -medications and IV fluids provided in the emergency room: Patient had 1000 cc normal saline bolus & 10 units R insulin subQ -labs ordered in a.m. ketones lactate, phosphorus, Mag, C-peptide, osmolality, salicylate 2.Sepsis, acute, present on admission, unstable SOFA score 6 -suspect sepsis secondary to UTI, urine and blood cultures pending Sepsis protocol initiated, Levophed drip 4 mg, normal saline 50 cc/hour Of 1 g Rocephin acute 24 hours 1st dose given Sepsis bundle not initiated in 3.Acute kidney injury:condition guarded -Abrupt increase in creatinine within the past 48 hours greater than 0.3, increasing creatinine >1.5x above -BUN 86, Framing Inspector 2.18, EGFR 22.7, Bun/Framing Inspector Ratio 39.4, total lidding machine operator Kinase 138. - High BUN and creatinine next pre renal, - admit to ICU- terrazas placed in ED, Terrazas care Q shift, strict I&O, daily weights, call for urinary output less than 200 mL per shift or an SaO2 less than 92%. -AVOID- nephrotoxic medications 4. Acute upper GI bleed, acute, not present on admission that demonstrated during in-patient stay -at approximately 2:10 a.m. the patient vomited up dark coffee ground blood approximately 300 cc, V/S BP 91/42 MAP (56) , HR 120, RR 23, O2 saturation 95% on room air -to be BC 25.9, RBC 2.49, HGB 6.8, HCT 21.5, PLT 263, PT 15.2, INR 1.3, VBG is a pH 7.38, pCO2 27.5, PO2 23, HC03 16 total CO2 17, O2 sat 41%, base excess -9.0, sodium 133, K 2.8, chlo97, bicarb 19, BUN 106, creatinine 2.45 E GFR 19.8., 20 units drip -Medications initiated: Reglan 10 mg, Protonix 80 mg IV drip, vasopressin 20 units drip,Octreotide 50mcg drip Levophed 4 mg IV drip -2 units of O-negative blood initiated type and cross ordered but not could be completed in a timely manner. -patient vomited 2 additional times coffee-grounds approximately 4-500 cc in total 5. Hypomagnesium, acute, not present on admission -Mag 1.2, Mag rider 6 g initiated. 6. Hypokalemia, acute, not present on admission Consult: Spoke to the hospitalist business intelligence administrator/ Dr. Kubisty hospitalist and ITZEL Silva who ED individually except patient for transfer-patient to be transferred to [facility] via [facility] Code status:Full Surrogate/plan of care:Arturo Guido spouse COVID PCR:negative VTE prophylaxis: Scores GCS [place] coma scale eye opening: Spontaneous [place] coma scale verbal response: Words [place] coma scale motor response: Localising [place] coma scale total score: 12 SOFA PaO2/FIO2: >=400 mmHg Platelets: >= 150 Bilirubin: < 1.2 mg/dL Hypotension: MAP >= 70 mmHg [place]a Coma Scale: 13-14 Renal: Creatinine 2.0-3.4 mg/dL SOFA Score: 3
[2020-08-17 22:38] LABS: Glucose 707 mg/dL (80-110)
[2020-08-18] VITALS (28 sets, daily range): BP systolic 75–145; BP diastolic 50–80; PULSE 92–126; RESP 18–37; TEMP 36.6; O2SAT 93–100
[2020-08-18 00:03] LABS: Glucose 586 mg/dL (80-110)
[2020-08-18] MEDS: SODIUM CHLORIDE 0.9% 1,000 ML 1000 ML IV (00:54)
[2020-08-18] MEDS: NOREPINEPHRINE 4 MG in DEXTROSE 5% IN WATER 250 ML IV (01:02)
[2020-08-18 01:06] LABS: Ketones (Beta-Hydroxybutyrate) 2.28 mmol/L (<0.27)
[2020-08-18 01:08] LABS: Glucose 475 mg/dL (80-110)
[2020-08-18] MEDS: CEFTRIAXONE 1 GM/50 ML FROZ.PIGGY IV (01:20)
[2020-08-18 01:43] LABS: Magnesium 1.2 mg/dL (1.6-2.3)
[2020-08-18] MEDS: MAGNESIUM SULFATE 2 GM/50 ML PIGGYBACK IV (02:09)
[2020-08-18 02:47] LABS: Basophils Absolute Auto 100 /uL (0-100); Basophils Percent Auto 0.2 % (0-2); Eosinophils Absolute Auto 0 /uL (0-450); Hematocrit 21.5 % (36-46); Lymphocytes Absolute Auto 2000 /uL (1100-4500); Lymphocytes Percent Auto 7.5 % (25-40); Mean Corpuscular HGB Conc 31.7 % (30-36); Mean Corpuscular Hemoglobin 27.4 PG (26-34); Mean Corpuscular Volume 86.5 fL (80-100); Monocytes Absolute Auto 2100 /uL (0-900); Monocytes Percent Auto 7.9 % (3-14); Neutrophils Absolute Auto 21800 /uL (1500-7000); Neutrophils Percent Auto 84.4 % (50-75); Platelet Count 263 X10^3/uL (150-400); Red Blood Cell Count 2.49 X10^6/uL (4.0-5.2); Red Cell Distribution Width 15.2 % (11.6-14.8); White Blood Cell Count 25.9 X10^3/uL (4.5-11.0)
[2020-08-18 02:48] LABS: Reflexed Lactate in 2 Hours Y
[2020-08-18 02:48] LABS: Add Manual Diff / Slide Review SLIDE REVIEW; Hemoglobin 6.8 g/dL (12.0-16.0)
[2020-08-18 02:49] LABS: INR 1.3 (0.9-1.3); Prothrombin Time 15.2 SECONDS (10.1-12.7)
[2020-08-18 02:53] LABS: Albumin 2.5 g/dL (3.5-5.0); Albumin Globulin Ratio 1.2 (1.0-2.8); Alkaline Phosphatase 51 U/L (38-126); Aspartate Aminotransferase 32 IU/L (14-36); BUN Creatinine Ratio 43.3 (6-22); Bilirubin Total 0.3 mg/dL (0.2-1.3); Calcium 8.1 mg/dL (8.4-10.2); Carbon Dioxide 19 mmol/L (22-32); Chloride 97 mmol/L (98-107); Estimated Glomerular Filt Rate 19.8 mL/min (>60); Globulin 2.1 g/dL (1.7-4.1); Glucose 315 mg/dL (80-110); HEMOLYSIS < 15 (0-50); Sodium 133 mmol/L (137-145); Total Protein 4.6 g/dL (6.3-8.2)
[2020-08-18 02:55] LABS: Blood Urea Nitrogen 106 mg/dL (7-17)
[2020-08-18 02:56] LABS: Potassium 2.8 mmol/L (3.4-5.1)
[2020-08-18 03:00] LABS: Alanine Aminotransferase 25 IU/L (<35)
--- NOTE | 2020-08-18 03:03 | DI.RAD.S_ITS ---
PROCEDURE: XR CHEST 1V INDICATIONS: mental status change TECHNIQUE: One view of the chest was acquired. COMPARISON: [facility], CR, XR CHEST 1V, 08/17/2020, 16:53. FINDINGS: Surgical changes and devices: Stable left humerus fixation hardware. Lungs and pleura: Lungs are clear. No pleural effusions or pneumothorax. Mediastinum: Mediastinal contours appear normal. Heart size is normal. Bones and chest wall: No suspicious bony lesions. Overlying soft tissues appear unremarkable. IMPRESSION: No acute cardiopulmonary disease process. Dictated by: Rosalinda Suazo MD, PhD on 08/18/2020 at 7:11 Approved by: Rosalinda Suazo MD, PhD on 08/18/2020 at 7:13
[2020-08-18] MEDS: PANTOPRAZOLE 80 MG in SODIUM CHLORIDE 0.9% 100 ML 10 ML IV (03:17)
[2020-08-18 03:18] LABS: HCO3 VBG 16 mmol/L (23-28); PCO2 VBG 27.5 mmHg (45-50); PO2 VBG 23 mmHg (35-45); Total CO2 VBG 17 mmol/L (24-29); pH VBG 7.38 (7.33-7.43)
[2020-08-18 03:19] LABS: Oxygen Saturation VBG 41 % (70-75)
[2020-08-18] MEDS: OCTREOTIDE 100 MCG/ML VIAL 50 MCG IV (03:27)
[2020-08-18] MEDS: OCTREOTIDE 500 MCG in SODIUM CHLORIDE 0.9% 100 ML 5.05 ML IV (03:34)
[2020-08-18] MEDS: METOCLOPRAMIDE 10 MG/2 ML INJ IV (03:47)
[2020-08-18] MEDS: VASOPRESSIN 20 UNIT in SODIUM CHLORIDE 0.9% 100 ML 60.6 ML IV (04:30)
[2020-08-18] MEDS: POTASSIUM CHLORIDE 40 MEQ in SODIUM CHLORIDE 0.9% 500 ML 130 ML IV (04:47)
[2020-08-18 05:22] LABS: Anisocytosis 2+; Ovalocytes 1+; Schistocytes 1+
--- NOTE | 2020-08-18 05:24 | PM.DDS.1 ---
Discharge Summary History of Illness Narrative: Patient is a 65-year-old female who is insulin-dependent diabetic who is known to be a brittle diabetic she also has a history of cirrhosis is presented to the ED with elevated heart rate in decreasing mental status. ED reported that has been keeping track of glucose 2 days ago it was doing well in the 100 yesterday it seemed to creep up to about 250 and today day this morning it was 523 and has increased to greater than 600. They have home health available who has come in to check on her today home health noted that her heart rate was quite elevated and had a glucose greater than 600 at which point she was transferred to the ER for further evaluation. Patient is feeling weak but has actually no complaints. She denies palpitations chest pain shortness of breath nausea or vomiting. She does have cirrhosis but has not had paracentesis it is managed currently with diuretics. She has no abdominal pain and has not had any increase in abdominal distention. She was at [facility] July 10 through the with CVA and and STEMI. ED Consult note:Anion gap of 25 but pH of 7.4 lactic acid 2.5 and glucose of 773. Patient does have ketones. She is found to be hyperglycemic. She is also found to have positive troponin. I have discussed case with Dr. Hernadez on-call Cardiology, he has reviewed records from [facility] last month. He does suspect that there is probably coronary artery disease patient states he has multiple risk factors for it. However at this time he states patient diabetes should get better under controlled. At this time he does not recommend heparin or Lovenox but agrees with aspirin and Plavix. Patient has a history of Cardiovascular disease, gallbladder disease, hypertention, Hyperlipidemia, insulin dependent type 2 diabetes, GERD, Cirrhosis, and Barrettes esophagus. Upon admit to the floor patient is lethargic, pale, skin is cool to the touch, arousable and responds to questions, some appropriately others are word salads, patient has impaired cognitive function baseline due to dementia. pt denies any CP, SOB, abd Pain, fever, body aches, or chills. Pt did complain of some mild nausea and feeling sick, pt never demonstrated vomiting or dry heaves, pt demonstarates no discomfort -pt was sent up from the ER without IV fluids running or insulin drip. admitting vital signs from ER temp 98.6? BP 108/72, HR 115, RR 20, O2 saturation 100% on room air. EKG: Sinus tachycardia rate 118 p.r. interval 146 QRS [address] changes. Patient had a glucose of 773 in ER was given 10 units of insulin and 1 bolus of fluid, repeat glucose on floor at 9:00 p.m. was 750. Patient's labs are as follows VBG pCO2 30 PO2 46 HC03 19, total CO2 20, O2 saturation 83%, base excess -6, WBC 26.6 with Neut# [id number], RBC 3.32 RDW 15.6, HGB 9.3, HCT 29.7, sodium 129, Cl 88, BUN 86, HC03 16, creatinine 2.18, EGFR 22.7, BUN creatinine ratio 39.4, lactic acid 2.3, albumin 3.4, initial troponin 0.192, repeat demonstrated an increase of 0.275, initial CK 10.90, repeat 10.80, CK-MB initial 8.3 repeat 7.8, lipase 20, procal 0.33, Ketones 9.33, u/a positive with glucose, ketones, blood, and wbc- culture pending. I suspect UTI causing sepsis/MARY Sofa score 6, anion gap 25, Patient's vital signs once on the floor for admit BP 87/55, HR 119, RR 22, O2 saturation 97% on room air. Patient's IV infiltrated, placed a 2nd line very tenious in the right hand after multiple attempts,PICC line team has been called & ordered. Pt was puling at the IV site and tubing, attempted to bandage hand & applied socks, had to apply wrist restraints to maintain IV access. Trop #1 0.192, #2 0.275 ordered EKG and compared with EKG from ED interupitation ealier today and reviewed 07/10/2020 EKG and EKG: Sinus tachycardia with PACs ventricular rate 120, DE interval 138, QRS duration 86, noted increased voltage in ST and T-wave changes in lead II, III, and AVF possible ischemia. Consulted with Dr. Cox on-call Cardioligist:I provided cardiac enzymes trends and ekg ST & T wave changes on EKG, pt denies CP or SOB, he advised to no longer track cardiac enzymes unless pt develops symptoms of cardiac distress, if patient becomes symptomatic start heparin drip. As transfer would not be approriate until DKA and sepsis stabalized. Hospital Course Date of Admission: 08/17/20 18:44Assessment & Plan narrative: This patient requires acute ICU care inpatient hospital management for DKA, MARY, sepsis, and hypomagnesium, fter failing outpatient management. The patient is at much higher risk for medical and surgical complications because of patient's June 2020 history of CVA and STEMI, dementia, insulin-dependent type 2 diabetes, hypertension, hyperlipidemia, cirrhosis, gallbladder disease, Dow's esophagus, and history of a subdural hematoma. These factors increase the difficulty and complexity of medical and surgical interventions and increases the chances of poor outcomes such as morbidity and mortality. 1. DKA, acute, present on admission secondary to insulin-dependent type 2 diabetes, acute, present admission, uncontrolled Patient's labs: VBG pCO2 30 PO2 46 HC03 19, total CO2 20, O2 saturation 83%, base excess -6,RBC 3.32 RDW 15.6, HGB 9.3, HCT 29.7, sodium 129, Cl 88, BUN 86, HC03 16, creatinine 2.18, EGFR 22.7, BUN creatinine ratio 39.4, lactic acid 2.3, albumin 3.4, initial troponin 0.192, repeat demonstrated an increase of 0.275, initial CK 10.90, repeat 10.80, CK-MB initial 8.3 repeat 7.8, lipase 20, procal 0.33, Ketones 9.33, u/a positive with glucose, ketones, blood, and wbc- culture pending. I suspect UTI causing sepsis/MARY Sofa score 6, anion gap 25, Patient's vital signs once on the floor for admit BP 87/55, HR 119, RR 22, O2 saturation 97% on room air. Patient's IV infiltrated, placed a 2nd line very tenious in the right hand after multiple attempts,PICC line team has been called & ordered. Pt was puling at the IV site and tubing, attempted to bandage hand & applied socks, had to apply wrist restraints to maintain IV access. Trop #1 0.192, #2 0.275 ordered EKG and compared with EKG from ED interupitation ealier today and reviewed 07/10/2020 EKG and EKG: noted increased voltage in ST and T-wave changes in lead II, III, and AVF possible ischemia. Consulted with Dr. Cox on-call Cardioligist:I provided cardiac enzymes trends and ekg ST & T wave changes on EKG, pt denies CP or SOB, he advised to no longer track cardiac enzymes unless pt develops symptoms of cardiac distress, then begin heparin drip. As transfer would not be approriate until DKA and sepsis stabalized. -patient to be monitored on tele medicine, vital signs q.4 hours, blood sugar checks Q 1 hour, BNP q.4 hours, intake and output monitored Q shift, weight measure daily, diet: low carbohydrate, -IV fluid initial normal saline 150 cc/hour-patient's initial blood sugar was 773 in the ER, was given 10 units R insulin SQ, -blood sugar 750 with an anion gap 25, ketones -Insulin drip was initiated at 6 units/hour with half-normal saline continue to titrate up to 15 units an hour. Check blood sugar Q 4 hour monitoring for the acidosis, PICC line was ordered. Midline placed @ 1215am ordered a norepinephrine 8 mcg/min drip to titrate to a map>65 -once blood sugar is below 250 change IV fluids to D5 and half at 150 cc, keep potassium above 3.3, once anion gap is less than 18 started on regular diet. -monitor blood sugar checks q.1 hour until blood sugar below 150, BMP q.4 hours checking for closing of the anion gap and potassium also monitor phosphorus and bicarb and assess for acute pancreatitis, cardiac arrhythmias and hyper osmolality -medications and IV fluids provided in the emergency room: Patient had 1000 cc normal saline bolus & 10 units R insulin subQ -labs ordered in a.m. ketones lactate, phosphorus, Mag, C-peptide, osmolality, salicylate 2.Sepsis, acute, present on admission, unstable SOFA score 6 -suspect sepsis secondary to UTI, urine and blood cultures pending Sepsis protocol initiated, Levophed drip 4 mg, normal saline 50 cc/hour Of 1 g Rocephin acute 24 hours 1st dose given Sepsis bundle not initiated in 3.Acute kidney injury:condition guarded -Abrupt increase in creatinine within the past 48 hours greater than 0.3, increasing creatinine >1.5x above -BUN 86, Cooperative Education Director 2.18, EGFR 22.7, Bun/Cooperative Education Director Ratio 39.4, total meter reader inspector Kinase 138. - High BUN and creatinine next pre renal, - admit to ICU- terrazas placed in ED, Terrazas care Q shift, strict I&O, daily weights, call for urinary output less than 200 mL per shift or an SaO2 less than 92%. -AVOID- nephrotoxic medications 4. Acute upper GI bleed, acute, not present on admission that demonstrated during in-patient stay -at approximately 2:10 a.m. the patient vomited up dark coffee ground blood approximately 300 cc, V/S BP 91/42 MAP (56) , HR 120, RR 23, O2 saturation 95% on room air -to be BC 25.9, RBC 2.49, HGB 6.8, HCT 21.5, PLT 263, PT 15.2, INR 1.3, VBG is a pH 7.38, pCO2 27.5, PO2 23, HC03 16 total CO2 17, O2 sat 41%, base excess -9.0, sodium 133, K 2.8, chlo97, bicarb 19, BUN 106, creatinine 2.45 E GFR 19.8., 20 units drip -Medications initiated: Reglan 10 mg, Protonix 80 mg IV drip, vasopressin 20 units drip,Octreotide 50mcg drip Levophed 4 mg IV drip -2 units of O-negative blood initiated type and cross ordered but not could be completed in a timely manner. -patient vomited 2 additional times coffee-grounds approximately 4-500 cc in total 5. Hypomagnesium, acute, not present on admission -Mag 1.2, Mag rider 6 g initiated. 6. Hypokalemia, acute, not present on admission Consult: Spoke to the hospitalist collection administrator/ Dr. Young hospitalist and GI Dr. Silva who ED individually except patient for transfer-patient to be transferred to [facility] via [facility] [id number] pt being transferred by EMS at this time Code status:Full Surrogate/plan of care:Arturo Guido spouse COVID PCR:negative VTE prophylaxis: Scores GCS Maira coma scale eye opening: Spontaneous Maira coma scale verbal response: Words Roberts coma scale motor response: Localising Maira coma scale total score: 12 SOFA PaO2/FIO2: >=400 mmHg Platelets: >= 150 Bilirubin: < 1.2 mg/dL Hypotension: MAP >= 70 mmHg Maira Coma Scale: 13-14 Renal: Creatinine 2.0-3.4 mg/dL SOFA Score: 3 Primary care provider: Jyoti Streeter MD Objective Labs Result Diagrams: 08/18/20 02:25 08/18/20 02:25 Labs: Laboratory Results - last 24 hr 08/17/20 08/17/20 08/17/20 16:42 16:53 16:53 WBC 26.6 H RBC 3.32 L Hgb 9.3 L Hct 29.7 L MCV 89.6 MCH 28.1 MCHC 31.3 RDW 15.6 H Plt Count 261 Neut % (Auto) 90.0 H Lymph % (Auto) 3.6 L [place] % (Auto) 6.1 Eos % (Auto) 0.0 L Baso % (Auto) 0.3 Neut # (Auto) 49988 H Lymph # (Auto) 1000 L [place] # (Auto) 1600 H Eos # (Auto) 0 Baso # (Auto) 100 RBC Morphology Anisocytosis Ovalocytes Schistocytes PT INR VBG pH 7.41 VBG pCO2 30.0 L VBG pO2 46 H VBG HCO3 19 L VBG Total CO2 20 L VBG O2 Saturation 83 H VBG Base Excess -6.0 L Sodium 129 L Potassium 4.4 Chloride 88 L Carbon Dioxide 16 L BUN 86 H Creatinine 2.18 H Estimated GFR 22.7 L BUN/Creatinine Ratio 39.4 H Glucose 773 H* Hemoglobin A1c Lactate Calcium 9.0 Magnesium Total Bilirubin 0.7 AST 30 ALT 21 Alkaline Phosphatase 63 Total Creatine Kinase 132 CK-MB (CK-2) 10.90 H CK-MB (CK-2) Rel Index 8.3 H* Troponin I 0.192 H* Total Protein 5.7 L Albumin 3.4 L Globulin 2.3 Albumin/Globulin Ratio 1.5 Amylase Lipase Procalcitonin 0.33 Urine Color Urine Appearance Urine pH Ur Specific [place] Urine Protein Urine Glucose (UA) Urine Ketones Urine Occult Blood Urine Nitrate Urine Bilirubin Urine Urobilinogen Ur Leukocyte Esterase Urine RBC Urine WBC Ur Squamous Epith Cells Amorphous Sediment Urine Bacteria Urine Mucus Ur Culture Indicated? Nasal Screen MRSA (PCR) Salicylates Ketones 9.33 H SARS-CoV-2 (PCR) Blood Type Antibody Screen Crossmatch 08/17/20 08/17/20 08/17/20 16:53 16:53 17:05 WBC RBC Hgb Hct MCV MCH MCHC RDW Plt Count Neut % (Auto) Lymph % (Auto) [place] % (Auto) Eos % (Auto) Baso % (Auto) Neut # (Auto) Lymph # (Auto) [place] # (Auto) Eos # (Auto) Baso # (Auto) RBC Morphology Anisocytosis Ovalocytes Schistocytes PT INR VBG pH VBG pCO2 VBG pO2 VBG HCO3 VBG Total CO2 VBG O2 Saturation VBG Base Excess Sodium Potassium Chloride Carbon Dioxide BUN Creatinine Estimated GFR BUN/Creatinine Ratio Glucose Hemoglobin A1c Lactate 2.5 H Calcium Magnesium Total Bilirubin AST ALT Alkaline Phosphatase Total Creatine Kinase CK-MB (CK-2) CK-MB (CK-2) Rel Index Troponin I Total Protein Albumin Globulin Albumin/Globulin Ratio Amylase Lipase 20 L Procalcitonin Urine Color Urine Appearance Urine pH Ur Specific [place] Urine Protein Urine Glucose (UA) Urine Ketones Urine Occult Blood Urine Nitrate Urine Bilirubin Urine Urobilinogen Ur Leukocyte Esterase Urine RBC Urine WBC Ur Squamous Epith Cells Amorphous Sediment Urine Bacteria Urine Mucus Ur Culture Indicated? Nasal Screen MRSA (PCR) Salicylates Ketones SARS-CoV-2 (PCR) Negative Blood Type Antibody Screen Crossmatch 08/17/20 08/17/20 08/17/20 18:00 19:14 20:18 WBC RBC Hgb Hct MCV MCH MCHC RDW Plt Count Neut % (Auto) Lymph % (Auto) [place] % (Auto) Eos % (Auto) Baso % (Auto) Neut # (Auto) Lymph # (Auto) [place] # (Auto) Eos # (Auto) Baso # (Auto) RBC Morphology Anisocytosis Ovalocytes Schistocytes PT INR VBG pH VBG pCO2 VBG pO2 VBG HCO3 VBG Total CO2 VBG O2 Saturation VBG Base Excess Sodium Potassium Chloride Carbon Dioxide BUN Creatinine Estimated GFR BUN/Creatinine Ratio Glucose 750 H* Hemoglobin A1c Lactate 2.3 H Calcium Magnesium Total Bilirubin AST ALT Alkaline Phosphatase Total Creatine Kinase CK-MB (CK-2) CK-MB (CK-2) Rel Index Troponin I Total Protein Albumin Globulin Albumin/Globulin Ratio Amylase Lipase Procalcitonin Urine Color Yellow Urine Appearance Cloudy Urine pH 5.5 Ur Specific [place] 1.015 Urine Protein 2+ H Urine Glucose (UA) 2+ H Urine Ketones 1+ H Urine Occult Blood 1+ H Urine Nitrate Negative Urine Bilirubin Negative Urine Urobilinogen 0.2 Ur Leukocyte Esterase Trace H Urine RBC 1-5/hpf Urine WBC 30-100/hpf H Ur Squamous Epith Cells 0-1 /hpf Amorphous Sediment 1+ Urine Bacteria Many (>30) H Urine Mucus 1+ H Ur Culture Indicated? Specimen cultured Nasal Screen MRSA (PCR) Salicylates Ketones SARS-CoV-2 (PCR) Blood Type Antibody Screen Crossmatch 08/17/20 08/17/20 08/17/20 20:30 20:30 20:30 WBC RBC Hgb Hct MCV MCH MCHC RDW Plt Count Neut % (Auto) Lymph % (Auto) [place] % (Auto) Eos % (Auto) Baso % (Auto) Neut # (Auto) Lymph # (Auto) [place] # (Auto) Eos # (Auto) Baso # (Auto) RBC Morphology Anisocytosis Ovalocytes Schistocytes PT INR VBG pH VBG pCO2 VBG pO2 VBG HCO3 VBG Total CO2 VBG O2 Saturation VBG Base Excess Sodium Potassium Chloride Carbon Dioxide BUN Creatinine Estimated GFR BUN/Creatinine Ratio Glucose Hemoglobin A1c 10.8 H Lactate Calcium Magnesium Total Bilirubin AST ALT Alkaline Phosphatase Total Creatine Kinase CK-MB (CK-2) CK-MB (CK-2) Rel Index Troponin I Total Protein Albumin Globulin Albumin/Globulin Ratio Amylase 41 Lipase Procalcitonin Urine Color Urine Appearance Urine pH Ur Specific [place] Urine Protein Urine Glucose (UA) Urine Ketones Urine Occult Blood Urine Nitrate Urine Bilirubin Urine Urobilinogen Ur Leukocyte Esterase Urine RBC Urine WBC Ur Squamous Epith Cells Amorphous Sediment Urine Bacteria Urine Mucus Ur Culture Indicated? Nasal Screen MRSA (PCR) Salicylates 1.2 Ketones SARS-CoV-2 (PCR) Blood Type Antibody Screen Crossmatch 08/17/20 08/17/20 08/17/20 20:30 20:30 20:30 WBC RBC Hgb Hct MCV MCH MCHC RDW Plt Count Neut % (Auto) Lymph % (Auto) [place] % (Auto) Eos % (Auto) Baso % (Auto) Neut # (Auto) Lymph # (Auto) [place] # (Auto) Eos # (Auto) Baso # (Auto) RBC Morphology Anisocytosis Ovalocytes Schistocytes PT INR VBG pH VBG pCO2 VBG pO2 VBG HCO3 VBG Total CO2 VBG O2 Saturation VBG Base Excess Sodium 129 L Potassium 4.2 Chloride 90 L Carbon Dioxide 16 L BUN Creatinine Estimated GFR BUN/Creatinine Ratio Glucose 757 H* Hemoglobin A1c Lactate Calcium Magnesium Total Bilirubin AST ALT Alkaline Phosphatase Total Creatine Kinase 138 H CK-MB (CK-2) 10.80 H CK-MB (CK-2) Rel Index 7.8 H* Troponin I 0.275 H* Total Protein Albumin Globulin Albumin/Globulin Ratio Amylase Lipase 19 L Procalcitonin Urine Color Urine Appearance Urine pH Ur Specific [place] Urine Protein Urine Glucose (UA) Urine Ketones Urine Occult Blood Urine Nitrate Urine Bilirubin Urine Urobilinogen Ur Leukocyte Esterase Urine RBC Urine WBC Ur Squamous Epith Cells Amorphous Sediment Urine Bacteria Urine Mucus Ur Culture Indicated? Nasal Screen MRSA (PCR) Salicylates Ketones SARS-CoV-2 (PCR) Blood Type Antibody Screen Crossmatch 08/17/20 08/17/20 08/17/20 20:43 22:10 23:45 WBC RBC Hgb Hct MCV MCH MCHC RDW Plt Count Neut % (Auto) Lymph % (Auto) [place] % (Auto) Eos % (Auto) Baso % (Auto) Neut # (Auto) Lymph # (Auto) [place] # (Auto) Eos # (Auto) Baso # (Auto) RBC Morphology Anisocytosis Ovalocytes Schistocytes PT INR VBG pH VBG pCO2 VBG pO2 VBG HCO3 VBG Total CO2 VBG O2 Saturation VBG Base Excess Sodium Potassium Chloride Carbon Dioxide BUN Creatinine Estimated GFR BUN/Creatinine Ratio Glucose 707 H* 586 H* Hemoglobin A1c Lactate Calcium Magnesium Total Bilirubin AST ALT Alkaline Phosphatase Total Creatine Kinase CK-MB (CK-2) CK-MB (CK-2) Rel Index Troponin I Total Protein Albumin Globulin Albumin/Globulin Ratio Amylase Lipase Procalcitonin Urine Color Urine Appearance Urine pH Ur Specific [place] Urine Protein Urine Glucose (UA) Urine Ketones Urine Occult Blood Urine Nitrate Urine Bilirubin Urine Urobilinogen Ur Leukocyte Esterase Urine RBC Urine WBC Ur Squamous Epith Cells Amorphous Sediment Urine Bacteria Urine Mucus Ur Culture Indicated? Nasal Screen MRSA (PCR) Negative for mrsa Salicylates Ketones SARS-CoV-2 (PCR) Blood Type Antibody Screen Crossmatch 08/18/20 08/18/20 08/18/20 00:40 00:40 00:40 WBC RBC Hgb Hct MCV MCH MCHC RDW Plt Count Neut % (Auto) Lymph % (Auto) [place] % (Auto) Eos % (Auto) Baso % (Auto) Neut # (Auto) Lymph # (Auto) [place] # (Auto) Eos # (Auto) Baso # (Auto) RBC Morphology Anisocytosis Ovalocytes Schistocytes PT INR VBG pH VBG pCO2 VBG pO2 VBG HCO3 VBG Total CO2 VBG O2 Saturation VBG Base Excess Sodium Potassium Chloride Carbon Dioxide BUN Creatinine Estimated GFR BUN/Creatinine Ratio Glucose 475 H D Hemoglobin A1c Lactate 6.0 H* Calcium Magnesium 1.2 L Total Bilirubin AST ALT Alkaline Phosphatase Total Creatine Kinase CK-MB (CK-2) CK-MB (CK-2) Rel Index Troponin I Total Protein Albumin Globulin Albumin/Globulin Ratio Amylase Lipase Procalcitonin Urine Color Urine Appearance Urine pH Ur Specific [place] Urine Protein Urine Glucose (UA) Urine Ketones Urine Occult Blood Urine Nitrate Urine Bilirubin Urine Urobilinogen Ur Leukocyte Esterase Urine RBC Urine WBC Ur Squamous Epith Cells Amorphous Sediment Urine Bacteria Urine Mucus Ur Culture Indicated? Nasal Screen MRSA (PCR) Salicylates Ketones SARS-CoV-2 (PCR) Blood Type Antibody Screen Crossmatch 08/18/20 08/18/20 08/18/20 00:40 02:25 02:25 WBC 25.9 H RBC 2.49 L Hgb 6.8 L* Hct 21.5 L MCV 86.5 D MCH 27.4 MCHC 31.7 RDW 15.2 H Plt Count 263 Neut % (Auto) 84.4 H Lymph % (Auto) 7.5 L [place] % (Auto) 7.9 Eos % (Auto) 0.0 L Baso % (Auto) 0.2 Neut # (Auto) 04227 H Lymph # (Auto) 2000 [place] # (Auto) 2100 H Eos # (Auto) 0 Baso # (Auto) 100 RBC Morphology See below Anisocytosis 2+ H Ovalocytes 1+ H Schistocytes 1+ H PT INR VBG pH VBG pCO2 VBG pO2 VBG HCO3 VBG Total CO2 VBG O2 Saturation VBG Base Excess Sodium 133 L Potassium 2.8 L D Chloride 97 L Carbon Dioxide 19 L BUN 106 H* Creatinine 2.45 H Estimated GFR 19.8 L BUN/Creatinine Ratio 43.3 H Glucose 315 H D Hemoglobin A1c Lactate Calcium 8.1 L Magnesium Total Bilirubin 0.3 AST 32 ALT 25 Alkaline Phosphatase 51 Total Creatine Kinase CK-MB (CK-2) CK-MB (CK-2) Rel Index Troponin I Total Protein 4.6 L Albumin 2.5 L Globulin 2.1 Albumin/Globulin Ratio 1.2 Amylase Lipase Procalcitonin Urine Color Urine Appearance Urine pH Ur Specific [place] Urine Protein Urine Glucose (UA) Urine Ketones Urine Occult Blood Urine Nitrate Urine Bilirubin Urine Urobilinogen Ur Leukocyte Esterase Urine RBC Urine WBC Ur Squamous Epith Cells Amorphous Sediment Urine Bacteria Urine Mucus Ur Culture Indicated? Nasal Screen MRSA (PCR) Salicylates Ketones 2.28 H SARS-CoV-2 (PCR) Blood Type Antibody Screen Crossmatch 08/18/20 08/18/20 08/18/20 02:25 02:25 02:32 WBC RBC Hgb Hct MCV MCH MCHC RDW Plt Count Neut % (Auto) Lymph % (Auto) [place] % (Auto) Eos % (Auto) Baso % (Auto) Neut # (Auto) Lymph # (Auto) [place] # (Auto) Eos # (Auto) Baso # (Auto) RBC Morphology Anisocytosis Ovalocytes Schistocytes PT 15.2 H INR 1.3 VBG pH 7.38 VBG pCO2 27.5 L VBG pO2 23 L VBG HCO3 16 L VBG Total CO2 17 L VBG O2 Saturation 41 L VBG Base Excess -9.0 L Sodium Potassium Chloride Carbon Dioxide BUN Creatinine Estimated GFR BUN/Creatinine Ratio Glucose Hemoglobin A1c Lactate Calcium Magnesium Total Bilirubin AST ALT Alkaline Phosphatase Total Creatine Kinase CK-MB (CK-2) CK-MB (CK-2) Rel Index Troponin I Total Protein Albumin Globulin Albumin/Globulin Ratio Amylase Lipase Procalcitonin Urine Color Urine Appearance Urine pH Ur Specific [place] Urine Protein Urine Glucose (UA) Urine Ketones Urine Occult Blood Urine Nitrate Urine Bilirubin Urine Urobilinogen Ur Leukocyte Esterase Urine RBC Urine WBC Ur Squamous Epith Cells Amorphous Sediment Urine Bacteria Urine Mucus Ur Culture Indicated? Nasal Screen MRSA (PCR) Salicylates Ketones SARS-CoV-2 (PCR) Blood Type A Positive Antibody Screen Negative Crossmatch See Detail
--- NOTE | 2020-08-18 05:30 | PM.DS.1 ---
History of Present Illness History of Present Illness Date Patient Seen: 08/18/20 Time Patient Seen: 05:00 Chief complaint: Tachycardia Narrative: Patient is a 65-year-old female who is insulin-dependent diabetic who is known to be a brittle diabetic she also has a history of cirrhosis is presented to the ED with elevated heart rate in decreasing mental status. ED reported that has been keeping track of glucose 2 days ago it was doing well in the 100 yesterday it seemed to creep up to about 250 and today day this morning it was 523 and has increased to greater than 600. They have home health available who has come in to check on her today home health noted that her heart rate was quite elevated and had a glucose greater than 600 at which point she was transferred to the ER for further evaluation. Patient is feeling weak but has actually no complaints. She denies palpitations chest pain shortness of breath nausea or vomiting. She does have cirrhosis but has not had paracentesis it is managed currently with diuretics. She has no abdominal pain and has not had any increase in abdominal distention. She was at [facility] July 10 through the with CVA and and STEMI. ED Consult note:Anion gap of 25 but pH of 7.4 lactic acid 2.5 and glucose of 773. Patient does have ketones. She is found to be hyperglycemic. She is also found to have positive troponin. I have discussed case with Dr. Hernadez on-call Cardiology, he has reviewed records from [facility] last month. He does suspect that there is probably coronary artery disease patient states he has multiple risk factors for it. However at this time he states patient diabetes should get better under controlled. At this time he does not recommend heparin or Lovenox but agrees with aspirin and Plavix. Patient has a history of Cardiovascular disease, gallbladder disease, hypertention, Hyperlipidemia, insulin dependent type 2 diabetes, GERD, Cirrhosis, and Barrettes esophagus. Upon admit to the floor patient is lethargic, pale, skin is cool to the touch, arousable and responds to questions, some appropriately others are word salads, patient has impaired cognitive function baseline due to dementia. pt denies any CP, SOB, abd Pain, fever, body aches, or chills. Pt did complain of some mild nausea and feeling sick, pt never demonstrated vomiting or dry heaves, pt demonstarates no discomfort -pt was sent up from the ER without IV fluids running or insulin drip. admitting vital signs from ER temp 98.6? BP 108/72, HR 115, RR 20, O2 saturation 100% on room air. EKG: Sinus tachycardia rate 118 p.r. interval 146 QRS [address] changes. Patient had a glucose of 773 in ER was given 10 units of insulin and 1 bolus of fluid, repeat glucose on floor at 9:00 p.m. was 750. Patient's labs are as follows VBG pCO2 30 PO2 46 HC03 19, total CO2 20, O2 saturation 83%, base excess -6, WBC 26.6 with Neut# [id number], RBC 3.32 RDW 15.6, HGB 9.3, HCT 29.7, sodium 129, Cl 88, BUN 86, HC03 16, creatinine 2.18, EGFR 22.7, BUN creatinine ratio 39.4, lactic acid 2.3, albumin 3.4, initial troponin 0.192, repeat demonstrated an increase of 0.275, initial CK 10.90, repeat 10.80, CK-MB initial 8.3 repeat 7.8, lipase 20, procal 0.33, Ketones 9.33, u/a positive with glucose, ketones, blood, and wbc- culture pending. I suspect UTI causing sepsis/MARY Sofa score 3, and pt deteriorating in to DKA anion gap 25. Patient admitted for DKA, MARY, and sepsis. Patient's vital signs once on the floor for admit BP 87/55, HR 119, RR 22, O2 saturation 97% on room air MAP 60. Discharge Providers Provider Date of admission: 08/17/20 18:44 Discharge Date: 08/18/20 Primary care physician: Jyoti Streeter MD [facility] Hospital Course Discharge Diagnosis: Acute onset during hospitalization upper GI bleed, likely secondary to patient's hx of Dow's esophagus, GERD, history of alcohol abuse and cirrhosis secondary to DKA resulting in MARY due to uncontrolled insulin-dependent diabetes, in addition to sepsis likely caused by UTI. Hospital Course: See assessment and plan below Status at Discharge Cognitive/behavioral status at discharge: at baseline, confused and calm Functional status at discharge: bed bound Overall status at discharge: other (Patient's cognitive behavioral status was deteriorating due to upper GI bleed, and deteriorating hemodynamics.) Time Spent with Patient Time spent: Greater than 30 minutes Exam Vital Signs (past 8 hours): - 08/17/20 22:52 08/17/20 23:00 08/17/20 23:05 Temperature Pulse Rate 118 H 125 H 130 H Respiratory Rate 28 H 29 H 22 Blood Pressure 74/50 L 89/54 L Pulse Oximetry 97 97 99 08/17/20 23:15 08/17/20 23:30 08/17/20 23:46 Temperature Pulse Rate 123 H 119 H 120 H Respiratory Rate 30 H 25 H 30 H Blood Pressure 82/50 L 83/51 L 74/50 L Pulse Oximetry 97 93 95 08/17/20 23:55 08/18/20 00:00 08/18/20 00:15 Temperature Pulse Rate 120 H 123 H 121 H Respiratory Rate 28 H 27 H 18 Blood Pressure 75/51 L 79/52 L Pulse Oximetry 95 97 98 08/18/20 00:19 08/18/20 01:00 08/18/20 01:01 Temperature 97.8 F Pulse Rate 107 H 126 H Respiratory Rate 24 22 Blood Pressure 81/50 L Pulse Oximetry 93 08/18/20 01:08 08/18/20 01:30 08/18/20 01:45 Temperature Pulse Rate 108 H 101 H 104 H Respiratory Rate 26 H 28 H 30 H Blood Pressure 77/51 L 92/50 L 92/50 L Pulse Oximetry 97 100 100 08/18/20 02:55 08/18/20 03:00 08/18/20 04:00 Temperature Pulse Rate 119 H 117 H 106 H Respiratory Rate 33 H 22 26 H Blood Pressure 93/59 L 96/53 L 85/53 L Pulse Oximetry 97 96 96 08/18/20 04:05 08/18/20 04:10 08/18/20 04:15 Temperature Pulse Rate 104 H 104 H 102 H Respiratory Rate 28 H 37 H 33 H Blood Pressure 78/52 L 89/55 L 87/51 L Pulse Oximetry 97 94 94 08/18/20 04:20 08/18/20 04:25 08/18/20 04:29 Temperature Pulse Rate 100 H 98 H 99 H Respiratory Rate 34 H 34 H 32 H Blood Pressure 87/53 L 87/51 L Pulse Oximetry 95 95 96 08/18/20 04:30 04/01/21 04:31 08/18/20 04:35 Temperature Pulse Rate 97 H 99 H Respiratory Rate 27 H 29 H Blood Pressure 87/52 L 95/52 L Pulse Oximetry 97 95 08/18/20 04:40 08/18/20 04:45 08/18/20 04:50 Temperature Pulse Rate 97 H 92 H 92 H Respiratory Rate 26 H 23 22 Blood Pressure 96/56 L 96/60 103/67 Pulse Oximetry 96 95 96 08/18/20 04:55 08/18/20 05:00 08/18/20 05:05 Temperature Pulse Rate 92 H 94 H 92 H Respiratory Rate 27 H 31 H 28 H Blood Pressure 110/69 145/78 H 118/71 Pulse Oximetry 96 96 95 Oxygen Delivery Method Room Air Oxygen Flow Rate 0 Narrative Exam Narrative: General: Patient is a thin fragile apnic lethargic female poorly mourished who verbally denies distress but is in clear clinical distress at this time. HEENT: Normocephalic, atraumatic, extraocular muscles intact, oral pharynx is clear and mucous membranes are dry with coffee ground sediment. Neck is supple and symmetric, trachea is midline, no adenopathy, Negative for JVD Chest: Normal AP diameter and contour without kyphoscoliosis, no nasal flaring, retractions, or tachypneic labored Lungs: Auscultation of all lung cuevas are clear without adventitious sounds, wheezes, rhonchi, or rales. no aspiration noted on physical exam Cardio: regular rate and rhythm without murmur, rubs, or gallops, no carotid bruit, no cardiac pulsations present. Abdomen: Soft nontender, negative for organomegaly, or masses. Bowel sounds are hypoactive present in all 4 quadrants without guarding or rebound, no CVA tenderness. Musculoskeletal: no deformity, crepitus, effusions, cyanosis, clubbing or edema present. Full range of motion intact radial and pedal pulses are normal. Skin: Cool pale dry decreased turger and intact without rashes, ulcerations or petechiae. Neuro: Lethargic but wakes to stimuli, confused, no gross deficits noted of cranial nerves. Psych: Patient is stuporous, impaired cognitive function. Objective Labs Result Diagrams: 08/18/20 02:25 04/01/21 02:25 Labs: Laboratory Results - last 24 hr 08/17/20 08/17/20 08/17/20 16:42 16:53 16:53 WBC 26.6 H RBC 3.32 L Hgb 9.3 L Hct 29.7 L MCV 89.6 MCH 28.1 MCHC 31.3 RDW 15.6 H Plt Count 261 Neut % (Auto) 90.0 H Lymph % (Auto) 3.6 L [place] % (Auto) 6.1 Eos % (Auto) 0.0 L Baso % (Auto) 0.3 Neut # (Auto) 98304 H Lymph # (Auto) 1000 L [place] # (Auto) 1600 H Eos # (Auto) 0 Baso # (Auto) 100 RBC Morphology Anisocytosis Ovalocytes Schistocytes PT INR VBG pH 7.41 VBG pCO2 30.0 L VBG pO2 46 H VBG HCO3 19 L VBG Total CO2 20 L VBG O2 Saturation 83 H VBG Base Excess -6.0 L Sodium 129 L Potassium 4.4 Chloride 88 L Carbon Dioxide 16 L BUN 86 H Creatinine 2.18 H Estimated GFR 22.7 L BUN/Creatinine Ratio 39.4 H Glucose 773 H* Hemoglobin A1c Lactate Calcium 9.0 Magnesium Total Bilirubin 0.7 AST 30 ALT 21 Alkaline Phosphatase 63 Total Creatine Kinase 132 CK-MB (CK-2) 10.90 H CK-MB (CK-2) Rel Index 8.3 H* Troponin I 0.192 H* Total Protein 5.7 L Albumin 3.4 L Globulin 2.3 Albumin/Globulin Ratio 1.5 Amylase Lipase Procalcitonin 0.33 Urine Color Urine Appearance Urine pH Ur Specific [place] Urine Protein Urine Glucose (UA) Urine Ketones Urine Occult Blood Urine Nitrate Urine Bilirubin Urine Urobilinogen Ur Leukocyte Esterase Urine RBC Urine WBC Ur Squamous Epith Cells Amorphous Sediment Urine Bacteria Urine Mucus Ur Culture Indicated? Nasal Screen MRSA (PCR) Salicylates Ketones 9.33 H SARS-CoV-2 (PCR) Blood Type Antibody Screen Crossmatch 08/17/20 08/17/20 08/17/20 16:53 16:53 17:05 WBC RBC Hgb Hct MCV MCH MCHC RDW Plt Count Neut % (Auto) Lymph % (Auto) [place] % (Auto) Eos % (Auto) Baso % (Auto) Neut # (Auto) Lymph # (Auto) [place] # (Auto) Eos # (Auto) Baso # (Auto) RBC Morphology Anisocytosis Ovalocytes Schistocytes PT INR VBG pH VBG pCO2 VBG pO2 VBG HCO3 VBG Total CO2 VBG O2 Saturation VBG Base Excess Sodium Potassium Chloride Carbon Dioxide BUN Creatinine Estimated GFR BUN/Creatinine Ratio Glucose Hemoglobin A1c Lactate 2.5 H Calcium Magnesium Total Bilirubin AST ALT Alkaline Phosphatase Total Creatine Kinase CK-MB (CK-2) CK-MB (CK-2) Rel Index Troponin I Total Protein Albumin Globulin Albumin/Globulin Ratio Amylase Lipase 20 L Procalcitonin Urine Color Urine Appearance Urine pH Ur Specific [place] Urine Protein Urine Glucose (UA) Urine Ketones Urine Occult Blood Urine Nitrate Urine Bilirubin Urine Urobilinogen Ur Leukocyte Esterase Urine RBC Urine WBC Ur Squamous Epith Cells Amorphous Sediment Urine Bacteria Urine Mucus Ur Culture Indicated? Nasal Screen MRSA (PCR) Salicylates Ketones SARS-CoV-2 (PCR) Negative Blood Type Antibody Screen Crossmatch 08/17/20 08/17/20 08/17/20 18:00 19:14 20:18 WBC RBC Hgb Hct MCV MCH MCHC RDW Plt Count Neut % (Auto) Lymph % (Auto) [place] % (Auto) Eos % (Auto) Baso % (Auto) Neut # (Auto) Lymph # (Auto) [place] # (Auto) Eos # (Auto) Baso # (Auto) RBC Morphology Anisocytosis Ovalocytes Schistocytes PT INR VBG pH VBG pCO2 VBG pO2 VBG HCO3 VBG Total CO2 VBG O2 Saturation VBG Base Excess Sodium Potassium Chloride Carbon Dioxide BUN Creatinine Estimated GFR BUN/Creatinine Ratio Glucose 750 H* Hemoglobin A1c Lactate 2.3 H Calcium Magnesium Total Bilirubin AST ALT Alkaline Phosphatase Total Creatine Kinase CK-MB (CK-2) CK-MB (CK-2) Rel Index Troponin I Total Protein Albumin Globulin Albumin/Globulin Ratio Amylase Lipase Procalcitonin Urine Color Yellow Urine Appearance Cloudy Urine pH 5.5 Ur Specific [place] 1.015 Urine Protein 2+ H Urine Glucose (UA) 2+ H Urine Ketones 1+ H Urine Occult Blood 1+ H Urine Nitrate Negative Urine Bilirubin Negative Urine Urobilinogen 0.2 Ur Leukocyte Esterase Trace H Urine RBC 1-5/hpf Urine WBC 30-100/hpf H Ur Squamous Epith Cells 0-1 /hpf Amorphous Sediment 1+ Urine Bacteria Many (>30) H Urine Mucus 1+ H Ur Culture Indicated? Specimen cultured Nasal Screen MRSA (PCR) Salicylates Ketones SARS-CoV-2 (PCR) Blood Type Antibody Screen Crossmatch 08/17/20 08/17/20 08/17/20 20:30 20:30 20:30 WBC RBC Hgb Hct MCV MCH MCHC RDW Plt Count Neut % (Auto) Lymph % (Auto) [place] % (Auto) Eos % (Auto) Baso % (Auto) Neut # (Auto) Lymph # (Auto) [place] # (Auto) Eos # (Auto) Baso # (Auto) RBC Morphology Anisocytosis Ovalocytes Schistocytes PT INR VBG pH VBG pCO2 VBG pO2 VBG HCO3 VBG Total CO2 VBG O2 Saturation VBG Base Excess Sodium Potassium Chloride Carbon Dioxide BUN Creatinine Estimated GFR BUN/Creatinine Ratio Glucose Hemoglobin A1c 10.8 H Lactate Calcium Magnesium Total Bilirubin AST ALT Alkaline Phosphatase Total Creatine Kinase CK-MB (CK-2) CK-MB (CK-2) Rel Index Troponin I Total Protein Albumin Globulin Albumin/Globulin Ratio Amylase 41 Lipase Procalcitonin Urine Color Urine Appearance Urine pH Ur Specific [place] Urine Protein Urine Glucose (UA) Urine Ketones Urine Occult Blood Urine Nitrate Urine Bilirubin Urine Urobilinogen Ur Leukocyte Esterase Urine RBC Urine WBC Ur Squamous Epith Cells Amorphous Sediment Urine Bacteria Urine Mucus Ur Culture Indicated? Nasal Screen MRSA (PCR) Salicylates 1.2 Ketones SARS-CoV-2 (PCR) Blood Type Antibody Screen Crossmatch 08/17/20 08/17/20 08/17/20 20:30 20:30 20:30 WBC RBC Hgb Hct MCV MCH MCHC RDW Plt Count Neut % (Auto) Lymph % (Auto) [place] % (Auto) Eos % (Auto) Baso % (Auto) Neut # (Auto) Lymph # (Auto) [place] # (Auto) Eos # (Auto) Baso # (Auto) RBC Morphology Anisocytosis Ovalocytes Schistocytes PT INR VBG pH VBG pCO2 VBG pO2 VBG HCO3 VBG Total CO2 VBG O2 Saturation VBG Base Excess Sodium 129 L Potassium 4.2 Chloride 90 L Carbon Dioxide 16 L BUN Creatinine Estimated GFR BUN/Creatinine Ratio Glucose 757 H* Hemoglobin A1c Lactate Calcium Magnesium Total Bilirubin AST ALT Alkaline Phosphatase Total Creatine Kinase 138 H CK-MB (CK-2) 10.80 H CK-MB (CK-2) Rel Index 7.8 H* Troponin I 0.275 H* Total Protein Albumin Globulin Albumin/Globulin Ratio Amylase Lipase 19 L Procalcitonin Urine Color Urine Appearance Urine pH Ur Specific [place] Urine Protein Urine Glucose (UA) Urine Ketones Urine Occult Blood Urine Nitrate Urine Bilirubin Urine Urobilinogen Ur Leukocyte Esterase Urine RBC Urine WBC Ur Squamous Epith Cells Amorphous Sediment Urine Bacteria Urine Mucus Ur Culture Indicated? Nasal Screen MRSA (PCR) Salicylates Ketones SARS-CoV-2 (PCR) Blood Type Antibody Screen Crossmatch 08/17/20 08/17/20 08/17/20 20:43 22:10 23:45 WBC RBC Hgb Hct MCV MCH MCHC RDW Plt Count Neut % (Auto) Lymph % (Auto) [place] % (Auto) Eos % (Auto) Baso % (Auto) Neut # (Auto) Lymph # (Auto) [place] # (Auto) Eos # (Auto) Baso # (Auto) RBC Morphology Anisocytosis Ovalocytes Schistocytes PT INR VBG pH VBG pCO2 VBG pO2 VBG HCO3 VBG Total CO2 VBG O2 Saturation VBG Base Excess Sodium Potassium Chloride Carbon Dioxide BUN Creatinine Estimated GFR BUN/Creatinine Ratio Glucose 707 H* 586 H* Hemoglobin A1c Lactate Calcium Magnesium Total Bilirubin AST ALT Alkaline Phosphatase Total Creatine Kinase CK-MB (CK-2) CK-MB (CK-2) Rel Index Troponin I Total Protein Albumin Globulin Albumin/Globulin Ratio Amylase Lipase Procalcitonin Urine Color Urine Appearance Urine pH Ur Specific [place] Urine Protein Urine Glucose (UA) Urine Ketones Urine Occult Blood Urine Nitrate Urine Bilirubin Urine Urobilinogen Ur Leukocyte Esterase Urine RBC Urine WBC Ur Squamous Epith Cells Amorphous Sediment Urine Bacteria Urine Mucus Ur Culture Indicated? Nasal Screen MRSA (PCR) Negative for mrsa Salicylates Ketones SARS-CoV-2 (PCR) Blood Type Antibody Screen Crossmatch 08/18/20 08/18/20 08/18/20 00:40 00:40 00:40 WBC RBC Hgb Hct MCV MCH MCHC RDW Plt Count Neut % (Auto) Lymph % (Auto) [place] % (Auto) Eos % (Auto) Baso % (Auto) Neut # (Auto) Lymph # (Auto) [place] # (Auto) Eos # (Auto) Baso # (Auto) RBC Morphology Anisocytosis Ovalocytes Schistocytes PT INR VBG pH VBG pCO2 VBG pO2 VBG HCO3 VBG Total CO2 VBG O2 Saturation VBG Base Excess Sodium Potassium Chloride Carbon Dioxide BUN Creatinine Estimated GFR BUN/Creatinine Ratio Glucose 475 H D Hemoglobin A1c Lactate 6.0 H* Calcium Magnesium 1.2 L Total Bilirubin AST ALT Alkaline Phosphatase Total Creatine Kinase CK-MB (CK-2) CK-MB (CK-2) Rel Index Troponin I Total Protein Albumin Globulin Albumin/Globulin Ratio Amylase Lipase Procalcitonin Urine Color Urine Appearance Urine pH Ur Specific [place] Urine Protein Urine Glucose (UA) Urine Ketones Urine Occult Blood Urine Nitrate Urine Bilirubin Urine Urobilinogen Ur Leukocyte Esterase Urine RBC Urine WBC Ur Squamous Epith Cells Amorphous Sediment Urine Bacteria Urine Mucus Ur Culture Indicated? Nasal Screen MRSA (PCR) Salicylates Ketones SARS-CoV-2 (PCR) Blood Type Antibody Screen Crossmatch 08/18/20 08/18/20 08/18/20 00:40 02:25 02:25 WBC 25.9 H RBC 2.49 L Hgb 6.8 L* Hct 21.5 L MCV 86.5 D MCH 27.4 MCHC 31.7 RDW 15.2 H Plt Count 263 Neut % (Auto) 84.4 H Lymph % (Auto) 7.5 L [place] % (Auto) 7.9 Eos % (Auto) 0.0 L Baso % (Auto) 0.2 Neut # (Auto) 06287 H Lymph # (Auto) 2000 [place] # (Auto) 2100 H Eos # (Auto) 0 Baso # (Auto) 100 RBC Morphology See below Anisocytosis 2+ H Ovalocytes 1+ H Schistocytes 1+ H PT INR VBG pH VBG pCO2 VBG pO2 VBG HCO3 VBG Total CO2 VBG O2 Saturation VBG Base Excess Sodium 133 L Potassium 2.8 L D Chloride 97 L Carbon Dioxide 19 L BUN 106 H* Creatinine 2.45 H Estimated GFR 19.8 L BUN/Creatinine Ratio 43.3 H Glucose 315 H D Hemoglobin A1c Lactate Calcium 8.1 L Magnesium Total Bilirubin 0.3 AST 32 ALT 25 Alkaline Phosphatase 51 Total Creatine Kinase CK-MB (CK-2) CK-MB (CK-2) Rel Index Troponin I Total Protein 4.6 L Albumin 2.5 L Globulin 2.1 Albumin/Globulin Ratio 1.2 Amylase Lipase Procalcitonin Urine Color Urine Appearance Urine pH Ur Specific [place] Urine Protein Urine Glucose (UA) Urine Ketones Urine Occult Blood Urine Nitrate Urine Bilirubin Urine Urobilinogen Ur Leukocyte Esterase Urine RBC Urine WBC Ur Squamous Epith Cells Amorphous Sediment Urine Bacteria Urine Mucus Ur Culture Indicated? Nasal Screen MRSA (PCR) Salicylates Ketones 2.28 H SARS-CoV-2 (PCR) Blood Type Antibody Screen Crossmatch 08/18/20 08/18/20 08/18/20 02:25 02:25 02:32 WBC RBC Hgb Hct MCV MCH MCHC RDW Plt Count Neut % (Auto) Lymph % (Auto) [place] % (Auto) Eos % (Auto) Baso % (Auto) Neut # (Auto) Lymph # (Auto) [place] # (Auto) Eos # (Auto) Baso # (Auto) RBC Morphology Anisocytosis Ovalocytes Schistocytes PT 15.2 H INR 1.3 VBG pH 7.38 VBG pCO2 27.5 L VBG pO2 23 L VBG HCO3 16 L VBG Total CO2 17 L VBG O2 Saturation 41 L VBG Base Excess -9.0 L Sodium Potassium Chloride Carbon Dioxide BUN Creatinine Estimated GFR BUN/Creatinine Ratio Glucose Hemoglobin A1c Lactate Calcium Magnesium Total Bilirubin AST ALT Alkaline Phosphatase Total Creatine Kinase CK-MB (CK-2) CK-MB (CK-2) Rel Index Troponin I Total Protein Albumin Globulin Albumin/Globulin Ratio Amylase Lipase Procalcitonin Urine Color Urine Appearance Urine pH Ur Specific [place] Urine Protein Urine Glucose (UA) Urine Ketones Urine Occult Blood Urine Nitrate Urine Bilirubin Urine Urobilinogen Ur Leukocyte Esterase Urine RBC Urine WBC Ur Squamous Epith Cells Amorphous Sediment Urine Bacteria Urine Mucus Ur Culture Indicated? Nasal Screen MRSA (PCR) Salicylates Ketones SARS-CoV-2 (PCR) Blood Type A Positive Antibody Screen Negative Crossmatch See Detail [facility] Medical History Dow's esophagus with esophagitis CVA (cerebral vascular accident) Dementia Diabetes Gallbladder disease GERD (gastroesophageal reflux disease) Hyperlipidemia Hypertension Overactive bladder Subdural hematoma Upper GI bleed Surgical History History of cholecystectomy Tubal ligation status Family History Mother Heart disease Father No problems noted. Social History household members: spouse Smoking Status: Current some day smoker alcohol intake: former Discharge Assessment & Plan Assessment and Plan Assessment: This patient requires acute ICU care inpatient hospital management for DKA, MARY, sepsis, and hypomagnesium, after failing outpatient management. In the course of the cut off machine helper hours patient developed acute onset upper GI bleed, the patient continued to deteriorate requiring transfer to [facility] for a higher level of care for gastroenterology. As patient was being transported out via EMS the patient began to have onset of lower acute GI bleed. Consult: Spoke to the hospitalist siebel administrator/ Dr. Young hospitalist and GI who all excepted care of the patient for transfer-patient to be transferred to [facility] via [facility] The patient is at much higher risk for medical and surgical complications because of patient's June 2020 history of CVA and STEMI, dementia, insulin-dependent type 2 diabetes, hypertension, hyperlipidemia, cirrhosis, gallbladder disease, Dow's esophagus, and history of a subdural hematoma. These factors increase the difficulty and complexity of medical and surgical interventions and increases the chances of poor outcomes such as morbidity and mortality. - Patient's IV infiltrated after arriving to the floor at which time the patient had no fluids running and insulin drip at not been initiated yet, placed a 2nd line very tenuous in the right hand after multiple attempts,PICC line team has been called & ordered. Pt was puling at the IV site and tubing, attempted to bandage hand & applied socks, had to apply wrist restraints to maintain IV access. Please see note under DKA as to final placement of main line at 12:15 a.m.. Patients acute upper GI bleed did not present until vomiting of blood began approximately 2:10 a.m. when a ariana walker was called. ED Dr. Bingham responded to code, based on ongoing assessments patient did not require intubation or ACLS interventions. Nor did patient require oxygenation, respiratory function remained stable throughout the night. 1.Acute onset upper GI bleed during inpatient hospitalization, acute, not present on admission, uncontrolled -at approximately 2:10 a.m. the patient vomited up dark coffee ground blood approximately 300 cc, V/S BP 91/42 MAP (56) , HR 120, RR 23, O2 saturation 95% on room air -to be WBC 25.9, RBC 2.49, HGB 6.8, HCT 21.5, PLT 263, PT 15.2, INR 1.3, VBG is a pH 7.38, pCO2 27.5, PO2 23, HC03 16 total CO2 17, O2 sat 41%, base excess -9.0, sodium 133, K 2.8, chlo97, bicarb 19, BUN 106, creatinine 2.45 E GFR 19.8., 20 units drip -Medications initiated: Reglan 10 mg, Protonix 80 mg IV drip, vasopressin 20 units drip,Octreotide 50mcg drip, Levophed 4 mg IV drip -2 units of O-negative blood initiated type and cross ordered but not could be completed in a timely manner. -patient vomited 2 additional times coffee-grounds approximately 4-500 cc in total, CXR ordered to evaluate for aspiration, lung sounds remained clear patient's respiratory status remained stable as evidence by O2 saturation remained in the 90s on room air. 2. DKA, acute, present on admission secondary to insulin-dependent type 2 diabetes, acute, present admission, uncontrolled Patient's labs: VBG pCO2 30 PO2 46 HC03 19, total CO2 20, O2 saturation 83%, base excess -6,RBC 3.32 RDW 15.6, HGB 9.3, HCT 29.7, sodium 129, Cl 88, BUN 86, HC03 16, creatinine 2.18, EGFR 22.7, BUN creatinine ratio 39.4, lactic acid 2.3, albumin 3.4, initial troponin 0.192, repeat demonstrated an increase of 0.275, initial CK 10.90, repeat 10.80, CK-MB initial 8.3 repeat 7.8, lipase 20, procal 0.33, Ketones 9.33, u/a positive with glucose, ketones, blood, and wbc- culture pending. I suspect UTI causing sepsis/MARY Sofa score 3, anion gap 25, Patient's vital signs once on the floor for admit BP 87/55, HR 119, RR 22, O2 saturation 97% on room air. Patient's IV infiltrated, placed a 2nd line very tenious in the right hand after multiple attempts,PICC line team has been called & ordered. Pt was puling at the IV site and tubing, attempted to bandage hand & applied socks, had to apply wrist restraints to maintain IV access. -patient to be monitored on tele medicine, vital signs q.4 hours, blood sugar checks Q 1 hour, BNP q.4 hours, intake and output monitored Q shift, weight measure daily, diet: low carbohydrate, -IV fluid initial normal saline 150 cc/hour-patient's initial blood sugar was 773 in the ER, was given 10 units R insulin SQ, -blood sugar 750 with an anion gap 25, ketones 9.33 -Insulin drip was initiated at 6 units/hour with half-normal saline continue to titrate up to 15 units an hour. Check blood sugar Q 4 hour monitoring for the acidosis, PICC line was ordered. Midline placed @ 1215am ordered a norepinephrine 8 mcg/min drip to titrate to a map>65 -once blood sugar is below 250 change IV fluids to D5 and half at 150 cc, keep potassium above 3.3, once anion gap is less than 18 started on regular diet. -monitor blood sugar checks q.1 hour until blood sugar below 150, BMP q.4 hours checking for closing of the anion gap and potassium also monitor phosphorus and bicarb and assess for acute pancreatitis, cardiac arrhythmias and hyper osmolality -medications and IV fluids provided in the emergency room: Patient had 1000 cc normal saline bolus & 10 units R insulin subQ -labs ordered in a.m. ketones lactate, phosphorus, Mag, C-peptide, osmolality, salicylate 3..Sepsis with profound hypotension, acute, present on admission, unstable SOFA score 3, patient demonstrated a b/p as low as 74/50 with a map of 55, and heart rate as high as 130 -suspect sepsis secondary to UTI, urine and blood cultures pending -initial WBC 26.6,Neut % 90, Lymph % 3.6, Eos% 0, Neut# [id number], Lymph #1000, [place] # 1600, anisocytosis 2+, ovalocytes 1+, Schistocytes 1+. Sepsis protocol initiated, Levophed drip 4 mg, normal saline Bolus then 150 cc/hour -Rocephin 1 g provided for broad-spectrum UTI possible covered. 4..Acute kidney injury, acute, present on admission, condition guarded -Abrupt increase in creatinine within the past 48 hours greater than 0.3, increasing creatinine >1.5x above -BUN 86, Offset Lithographic Press Setter 2.18, EGFR 22.7, Bun/Offset Lithographic Press Setter Ratio 39.4, total language translator Kinase 138. - High BUN and creatinine next pre renal, - admit to ICU- terrazas placed in ED, Terrazas care Q shift, strict I&O, daily weights, call for urinary output less than 200 mL per shift or an SaO2 less than 92%. -AVOID- nephrotoxic medications 5. Elevated troponins with noted EKG ST and T-wave changes with a history of CVA an NSTEMI treated at [facility] June of 2020, acute, present on admission ED Consult Dr. Guerrero:She is also found to have positive troponin. I have discussed case with Dr. Hernadez on-call Cardiology, he has reviewed records from [facility] last month. He does suspect that there is probably coronary artery disease patient states he has multiple risk factors for it. However at this time he states patient diabetes should get better under controlled. At this time he does not recommend heparin or Lovenox but agrees with aspirin and Plavix. -CK-MB #10.90, #10.80 CK-MB relative in tax #1. 8.3, #2 7.8 -Trop #1 0.192, #2 0.275 ordered EKG and compared with EKG from ED interupitation ealier today and reviewed 07/10/2020 EKG and EKG: Sinus tachycardia with a ventricular rate 120, AR interval 138, QRS duration 86, noted increased voltage in ST and T-wave changes in lead II, III, and AVF possible ischemia. Consulted with Dr. Cox on-call Cardioligist: Approximately 2129 I provided cardiac enzymes trends and ekg ST & T wave changes on EKG, pt denies CP or SOB, he advised to no longer track cardiac enzymes unless pt develops symptoms of cardiac distress, then begin heparin drip. As transfer would not be approriate until DKA and sepsis resolved. Patient remains on symptomatic for cardiac issues. 5. Hypomagnesium, acute, not present on admission -Mag 1.2, Mag rider 6 g initiated. 6. Hypokalemia, acute, not present on admission -potassium 2.8 -potassium rider initiated Consult: Spoke to the hospitalist siebel administrator/ Dr. Young hospitalist and GI who all excepted care of the patient for transfer-patient to be transferred to [facility] via [facility] EMS Code status:Full Surrogate/plan of care:Arturo spouse COVID PCR:negative VTE prophylaxis: Contraindicated, SCDs in place Scores SOFA PaO2/FIO2: >=400 mmHg Platelets: >= 150 Bilirubin: < 1.2 mg/dL Hypotension: MAP >= 70 mmHg Anchor Coma Scale: 13-14 Renal: Creatinine 2.0-3.4 mg/dL SOFA Score: 3 Discharge Plan Discharge Plan Patient Disposition: [facility] Other facility: [facility] Under care of provider: Dr. Kramer Provider Discharge Comment: Patient has developed a lower GI bleed as patient is being transferred on to [facility] for transport Discharge Health Status Multidrug resistant organism: No MDRO Diet/Activity/Treatments Diet: Nothing by Mouth Discharge Data Primary Care Provider: Jyoti Streeter
--- NOTE | 2020-08-18 06:33 | PC.NURSE ---
Patient admitted to from ER to [facility] ([id number]). Patient A/O to self only and would respond to some questions appropriately and to others with word salad. Patient has hx of dementia, cirrhosis, and esophageal varices. Due to BG being in the 700's, ketones and bacteria in the urine, and an anion gap of 24, the patient was moved to the ICU. At this time the patient had one peripheral IV and nothing running. The insulin drip was started however the IV access was compromised. After multiple attempts at restarting the IV, a midline was ordered and [facility] was called (2099), they were 2 hours away. While waiting, a 22g IV was successfully placed and the insulin and 150 NS .45% was started. Urine output was approximately 300ml since admission. The patient's BP began to drop significantly, the lowest MAP approximately 56, HR was sustaining in 120-130's ST but SpO2 steady upper 90's on RA. HOSPITAL RECEIVING CLERK was aware and at bedside, however it was decided that it was not worth the risk of losing the small IV to run a bolus through it. Once the midline was placed a 1L bolus NS and zofran was given and levophed started, titrating to MAP of >65. Patient's BP became more stable. Multiple labs drawn, mag was low and was replaced. At approximately 2am patient began projectile vomiting what appeared to be a mix of coffee emesis and nicolette blood. Patient was still responding to name but her mentation was significantly decreased and she was pale. A rapid response was called, patient was turned to side and was suctioned. ER doc, hospitalist, RT, lab, and multiple RNs from and ED responded. Orders were received for ceftriaxone, reglan, octreotide IV, vasopressin IV, protonix IV were received and two units PRBCs of O- to be given stat. Later potassium IV was ordered for a drop in potassium from 4.2 to 2.8. Patient got a chest xray due to possible aspiration when vomiting. At this time the decision was made to transfer the patient and hospitalist/coordinator began to make arrangements. Patient's BP began to stabilize until she began to vomit blood again. [facility] output had decreased to less than 25ml/hr. The levophed drip was titrated ranging 1-5 mcg/min. Patient had two more episodes of vomiting before [facility] arrived at 5am to transfer patient to [facility] CCU Room 2020 (Sakshi RN called for report). At this time patient was sometimes responding to name and sometimes requiring sternal rub to get a response. Significant other, Pablo came to bedside just prior to EMS's arrival and was informed about transfer and patient's new room/location. While transferring patient from bed to [facility] it was discovered that she was having bloody stool. HOSPITAL RECEIVING CLERK aware. Meanwhile, patient's BG has been decreasing and insulin drip was titrated accordingly. Last BG checked was 171 and insulin drip was turned off before transfer. Patient's BP was also WNL before transfer and levophed was titrated off and blood finished. Potassium, protonix, octreotide, and vasopressin transferred with patient. HOSPITAL RECEIVING CLERK Marnie Douglas was at bedside throughout and ER MD Nguyễn was at bedside intermittently. See nurse note, MAR, and chart for more details.
[2020-08-19 12:14] LABS: Osmolality, Serum 356 mOsmol/kg (280-301)
== END 2020-08-18 06:32 | disposition short-term general hospital (02) | DRG 637 ==
LOC: ED 16:57 → AC 18:45 → ICU 20:51 → AC 08-22 09:02
PROVIDERS: Emergency Medicine; Nurse Practitioner Family; Admitting Provider Internal Medicine; Emergency Provider Emergency Medicine; PCP Family Medicine; Referring Provider Emergency Medicine; Visit Provider Internal Medicine
DX: E11.10 Type 2 diabetes mellitus with ketoacidosis without coma (principal); A41.9 Sepsis, unspecified organism; R57.1 Hypovolemic shock; R65.21 Severe sepsis with septic shock; G93.41 Metabolic encephalopathy; N39.0 Urinary tract infection, site not specified; N17.9 Acute kidney failure, unspecified; K92.0 Hematemesis; D62 Acute posthemorrhagic anemia; Z79.899 Other long term (current) drug therapy; E87.6 Hypokalemia; E83.42 Hypomagnesemia; F03.90 Unspecified dementia, unspecified severity, without behavioral disturbance, psychotic disturbance, mood disturbance, and anxiety; I10 Essential (primary) hypertension; E78.5 Hyperlipidemia, unspecified; K22.70 Barrett's esophagus without dysplasia; Z86.73 Personal history of transient ischemic attack (TIA), and cerebral infarction without residual deficits; Z20.822 Contact with and (suspected) exposure to COVID-19; I25.2 Old myocardial infarction; I25.9 Chronic ischemic heart disease, unspecified
CPT/HCPCS: 36415; 36430; 71045; 80051; 80053; 80329; 81001; 82009; 82150; 82550; 82553; 82805; 82947; 82962; 83036; 83605; 83690; 83735; 83930; 84145; 84484; 85025; 85610; 86850; 86900; 86901; 87040; 87077; 87086; 87186; 87635; 87797; 93005; 96360; 96361; 96372; 99284; 99285; P9016; C9113; G0480; J2354; J2405; J2765; J3475; J3480; J7050

== ENCOUNTER 2020-09-18 19:40 | Emergency (ER) | payer MEDICARE, MEDICAID, SELFPAY ==
[2020-08-17 19:42] VITALS: BMI 24.7
[2020-09-18] VITALS (11 sets, daily range): BP systolic 123–186; BP diastolic 65–93; PULSE 74–114; RESP 8–28; TEMP 36.9; O2SAT 94–100
--- NOTE | 2020-09-18 19:42 | ED.CHESTPAIN ---
HPI - Chest Pain General Chief Complaint: GI Bleed Stated Complaint: coughing up brown stuff Time Seen by Provider: 09/18/20 19:41 Source: patient and family Mode of arrival: Ambulatory Limitations: no limitations History of Present Illness HPI narrative: 65-year-old female smoker, former heavy drinker with history of recent extended hospitalization including myocardial infarction, kidney failure, sepsis, upper GI bleed, she was transferred to [facility] for definitive care and recently was discharged home from detention. Patient presents with her and a chief complaint of feeling weak and lightheaded over the course of the day and having multiple episodes of nausea and vomiting. She is a poor historian at baseline which is normal per her . She states that there has been no bright red blood but she has had coffee-ground type emesis on a few occasions. She has had no fever chills. She denies any chest pain but does have some mild shortness of breath. She denies of abdominal pain, diarrhea or constipation. Related Data Home Medications Medication Instructions Recorded Confirmed atorvastatin 40 mg PO QPM 10/08/17 08/17/20 cholecalciferol (vitamin D3) 3,000 unit PO DAILY 10/08/17 08/17/20 [Vitamin D3] insulin aspart U-100 [Novolog 1 dose SUBCUT QIDACHS 10/08/17 08/17/20 Flexpen U-100 Insulin] cyanocobalamin (vitamin B-12) 1,000 mcg PO DAILY 08/02/19 08/17/20 hydralazine 20 mg PO BID 08/02/19 08/17/20 sucralfate 1 g PO QID 08/02/19 08/17/20 tizanidine 2 mg PO Q8H PRN 08/02/19 08/17/20 Lantus U-100 Insulin 11 unit SUBCUT DAILY 12/26/19 08/17/20 ondansetron 8 mg PO Q6H PRN 12/26/19 08/17/20 pantoprazole 40 mg PO BID 12/26/19 08/17/20 propranolol 20 mg PO DAILY 12/26/19 08/17/20 spironolactone 25 mg PO DAILY 12/26/19 08/17/20 tramadol 50 mg PO BID PRN 12/26/19 08/17/20 Previous Rx's Medication Instructions Recorded aspirin 81 mg PO BID #30 tab 12/29/19 docusate sodium [DOK] 100 mg PO BID #14 cap 12/29/19 oxycodone 5 mg PO Q3HR PRN #15 tab 12/29/19 Allergies Allergy/AdvReac Type Severity Reaction Status Date / Time Iodine and Iodide Containing Allergy Unknown Verified 05/02/20 14:24 Produc [IODINE AND IODIDE CONTAINING PRODUC] latex [LATEX] Allergy Unknown Verified 05/02/20 14:24 Review of Systems Constitutional Constitutional: Denies chills, Reports fatigue, Denies fever(s), Denies frequent falls, Denies lethargy and Reports weakness Eyes Eyes: Denies change in vision, Denies eye discharge, Denies irritation and Denies loss of vision ENT Ears, Nose, Mouth, and Throat: Denies change in voice, Denies dizziness, Denies neck pain, Denies sore throat and Denies throat swelling Cardiovascular Cardiovascular: Denies chest pain, Denies irregular heart rhythm, Denies lightheadedness, Denies palpitations, Denies dyspnea, Denies dyspnea on exertion and Denies orthopnea Respiratory Respiratory: Denies cough, Denies dyspnea, Denies dyspnea on exertion and Denies wheezing Gastrointestinal Gastrointestinal: Denies abdominal pain, Denies change in bowel habits, Reports coffee ground emesis, Denies diarrhea, Reports nausea and Reports vomiting Musculoskeletal Musculoskeletal: Denies neck pain and Denies numbness Integumentary/Breasts Skin/Breast: Denies pruritus, Denies erythema, Denies rash and Denies wounds Neurologic Neurologic: Denies behavioral changes, Denies confusion, Denies dizziness, Denies frequent falls, Denies loss of vision, Denies numbness and Reports weakness Psychiatric Psychiatric: Denies anxiety, Denies behavioral changes, Denies confusion, Denies depression, Denies homicidal ideation and Denies suicidal ideation Endocrine Endocrine: Reports fatigue, Denies flushing and Denies palpitations Hematologic/Lymphatic Hematologic/Lymphatic: Denies easy bruising Allergic/Immunologic Allergic/Immunologic: Denies urticaria, Denies throat swelling and Denies wheezing Patient History Medical History Dow's esophagus with esophagitis CVA (cerebral vascular accident) Dementia Diabetes Gallbladder disease GERD (gastroesophageal reflux disease) Hyperlipidemia Hypertension Overactive bladder Subdural hematoma Upper GI bleed Surgical History History of cholecystectomy Tubal ligation status Family History Mother Heart disease Father No problems noted. Social History household members: spouse Smoking Status: Current some day smoker alcohol intake: former Smoking Status: Current some day smoker tobacco type: cigarettes alcohol intake frequency: holidays/special occasions only Alcohol type: hard liquor Substance Use Type: does not use Exam Narrative Exam Narrative: GENERAL: [] 65 year old patient appears older than stated age. Thin, pale, ill-appearing HEAD: Atraumatic. Normocephalic. EYES: Pale conjunctiva Pupils equal round and reactive. Extraocular motions intact. No scleral icterus. No injection or drainage. ENT: Nose without bleeding, purulent drainage. Throat without erythema, tonsillar hypertrophy or exudate. Airway patent. NECK: Trachea midline. Non tender CARDIOVASCULAR: Regular rate and rhythm without murmurs, gallops, or rubs. RESPIRATORY: Clear to auscultation. Breath sounds equal bilaterally. No wheezes, rales, or rhonchi. GASTROINTESTINAL: Abdomen soft, mild generalized tender, nondistended. EXTREMITIES: No edema or joint tenderness. BACK: Nontender without deformity or crepitance. No flank tenderness. NEURO: AOx3, but slow to respond, this is baseline per SKIN: No rash or erythema of visible areas Initial Vital Signs Initial Vital Signs: Vital Signs Temperature 98.5 F 09/18/20 19:47 Pulse Rate 114 H 09/18/20 19:47 Respiratory Rate 16 09/18/20 19:47 Blood Pressure 123/65 09/18/20 19:47 Pulse Oximetry 100 09/18/20 19:47 Course Orders Ordered: ED Orders 09/18/20 19:43 XR chest 1V Stat EKG-12 Lead Stat 09/18/20 20:22 Complete Blood Count AUTO DIFF Stat Comprehensive Metabolic Panel Stat D Dimer Stat Lipase Stat Magnesium Stat NT-proBNP (BNP-Adult 18+) Stat Prothrombin Time INR Stat Troponin & CK Cardiac Panel Stat 09/18/20 20:47 Blood Culture Stat 09/18/20 21:02 CT angio chest PE protocol Stat 09/18/20 23:00 COVID19 -Nasal swab/Pre-Proc Stat Sodium Chloride (Normal Saline 0.9%) 1,000 mls @ 125 mls/hr IV CONT MIRIAM Last Infusion: 09/19/20 02:23 Dose: 0 mls/hr Documented by: Admin: 09/18/20 20:56 Dose: 125 mls/hr Documented by: UTE Sodium Chloride (Normal Saline 0.9%) 1,000 mls @ 125 mls/hr IV CONT MIRIAM Last Admin: 09/18/20 20:59 Dose: Not Given Documented by: UTE Pantoprazole Sodium 80 mg/ (Sodium Chloride) 100 mls @ 10 mls/hr IV CONT MIRIAM Last Admin: 09/19/20 00:16 Dose: 8 mg/hr, 10 mls/hr Documented by: AWAIS Octreotide Acetate 500 mcg/ (Sodium Chloride) 101 mls @ 5.05 mls/hr IV CONT MIRIAM; Protocol Last Admin: 09/19/20 02:05 Dose: 25 mcg/hr, 5.05 mls/hr Documented by: AWAIS Discontinued Medications Diphenhydramine HCl (Diphenhydramine 50 Mg/Ml Vial) 25 mg IV NOW ONE Stop: 09/18/20 19:43 Last Admin: 09/18/20 20:55 Dose: 25 mg Documented by: UTE Diphenhydramine HCl (Diphenhydramine 50 Mg/Ml Vial) 25 mg IV NOW ONE Stop: 09/18/20 20:52 Last Admin: 09/18/20 20:59 Dose: Not Given Documented by: UTE Methylprednisolone (Methylprednisolone 125 Mg/2 Ml Vial) 125 mg IV NOW ONE Stop: 09/18/20 19:43 Last Admin: 09/18/20 20:56 Dose: 125 mg Documented by: UTE Methylprednisolone (Methylprednisolone 125 Mg/2 Ml Vial) 125 mg IV NOW ONE Stop: 09/18/20 20:52 Last Admin: 09/18/20 20:59 Dose: Not Given Documented by: UTE Metoclopramide HCl (Metoclopramide 10 Mg/2 Ml Inj) 10 mg IV NOW ONE Stop: 09/18/20 21:10 Last Admin: 09/18/20 21:14 Dose: 10 mg Documented by: UTE Octreotide Acetate (Octreotide 100 Mcg/Ml Vial) 50 mcg IV NOW ONE Stop: 09/18/20 21:10 Last Admin: 09/18/20 21:23 Dose: 50 mcg Documented by: UTE Pantoprazole Sodium (Pantoprazole 40 Mg Vial) 40 mg IV NOW ONE Stop: 09/18/20 21:10 Last Admin: 09/18/20 21:14 Dose: 40 mg Documented by: UTE Consultations Consultation #1: call to [facility] given hx GI bleed, they cannot accept given question of esophageal abnormality and possible Boerhaave syndrome Consultation #2: call to [place]. Initial call to thoracic surgery, they have reviewed the images and case and have low suspicion of perforation given lack of pneumomediastinum, fever, elevated white blood cell count or chest pain. They do state that they would be happy to be involved in consultation but suggest gastroenterology is a more important consultation initially call to GI. Happy to accept. Happy with PPI/octreotide. Will evaluate patient and likely coordinate oral contrasted study prior to endoscopy. Request admission to hospitalist Hospitalist at [facility] happy to accept patient. Vital Signs Vital signs: Vital Signs - 8 hr 09/18/20 19:47 09/18/20 19:48 09/18/20 20:27 Temperature 98.5 F Pulse Rate 114 H 104 H Respiratory Rate 16 16 Blood Pressure 123/65 180/86 H 177/88 H Pulse Oximetry 100 100 09/18/20 20:30 09/18/20 21:00 09/18/20 21:30 Temperature Pulse Rate 104 H 104 H 110 H Respiratory Rate 8 L 28 H 16 Blood Pressure 172/89 H 179/88 H 186/93 H Pulse Oximetry 99 99 99 09/18/20 22:15 09/18/20 22:24 09/18/20 22:30 Temperature Pulse Rate 87 84 83 Respiratory Rate 16 22 22 Blood Pressure 164/79 H 164/74 H 142/70 H Pulse Oximetry 98 99 97 09/18/20 23:00 09/18/20 23:30 09/19/20 00:00 Temperature Pulse Rate 83 74 72 Respiratory Rate 20 21 21 Blood Pressure 142/77 H 136/71 149/72 H Pulse Oximetry 94 96 09/19/20 00:30 09/19/20 01:00 09/19/20 02:01 Temperature Pulse Rate 68 66 66 Respiratory Rate 21 12 Blood Pressure 141/74 H 136/75 163/76 H Pulse Oximetry 96 97 97 MDM - Chest Pain Lab Data Result diagrams: 09/18/20 20:22 09/18/20 20:22 Labs: Lab Results 09/18/20 09/18/20 09/18/20 Range/Units 20:22 20:22 20:22 WBC 9.6 (4.5-11.0) X10^3/uL RBC 3.86 L (4.0-5.2) X10^6/uL Hgb 11.4 L (12.0-16.0) g/dL Hct 33.8 L (36-46) % MCV 87.4 (80-100) fL MCH 29.5 (26-34) PG MCHC 33.8 (30-36) % RDW 15.2 H (11.6-14.8) % Plt Count 215 (150-400) X10^3/uL Neut % (Auto) 83.8 H (50-75) % Lymph % (Auto) 8.2 L (25-40) % [place] % (Auto) 7.6 (3-14) % Eos % (Auto) 0.2 L (2-4) % Baso % (Auto) 0.2 (0-2) % Neut # (Auto) 8000 H (5877-8179) /uL Lymph # (Auto) 800 L (6355-0394) /uL [place] # (Auto) 700 (0-900) /uL Eos # (Auto) 0 (0-450) /uL Baso # (Auto) 0 (0-100) /uL PT 11.6 (10.1-12.7) SECONDS INR 1.0 (0.9-1.3) D-Dimer 874 H (<230) ng/mL Sodium (137-145) mmol/L Potassium (3.4-5.1) mmol/L Chloride (98-107) mmol/L Carbon Dioxide (22-32) mmol/L BUN (7-17) mg/dL Creatinine (0.52-1.04) mg/dL Estimated GFR (>60) mL/min BUN/Creatinine Ratio (6-22) Glucose (80-110) mg/dL Calcium (8.4-10.2) mg/dL Magnesium (1.6-2.3) mg/dL Total Bilirubin (0.2-1.3) mg/dL AST (14-36) IU/L ALT (<35) IU/L Alkaline Phosphatase (38-126) U/L Total Creatine Kinase (30-135) U/L CK-MB (CK-2) CK-MB (CK-2) Rel Index Troponin I (0.01-0.034) ng/mL NT-Pro-B Natriuret Pep (<125) pg/mL Total Protein (6.3-8.2) g/dL Albumin (3.5-5.0) g/dL Globulin (1.7-4.1) g/dL Albumin/Globulin Ratio (1.0-2.8) Lipase (23-300) U/L SARS-CoV-2 (PCR) (Negative) 09/18/20 09/18/20 Range/Units 20:22 23:00 WBC (4.5-11.0) X10^3/uL RBC (4.0-5.2) X10^6/uL Hgb (12.0-16.0) g/dL Hct (36-46) % MCV (80-100) fL MCH (26-34) PG MCHC (30-36) % RDW (11.6-14.8) % Plt Count (150-400) X10^3/uL Neut % (Auto) (50-75) % Lymph % (Auto) (25-40) % [place] % (Auto) (3-14) % Eos % (Auto) (2-4) % Baso % (Auto) (0-2) % Neut # (Auto) (3062-0699) /uL Lymph # (Auto) (2986-2817) /uL [place] # (Auto) (0-900) /uL Eos # (Auto) (0-450) /uL Baso # (Auto) (0-100) /uL PT (10.1-12.7) SECONDS INR (0.9-1.3) D-Dimer (<230) ng/mL Sodium 138 (137-145) mmol/L Potassium 3.7 (3.4-5.1) mmol/L Chloride 110 H (98-107) mmol/L Carbon Dioxide 19 L (22-32) mmol/L BUN 19 H (7-17) mg/dL Creatinine 1.11 H (0.52-1.04) mg/dL Estimated GFR 49.5 L (>60) mL/min BUN/Creatinine Ratio 17.1 (6-22) Glucose 156 H (80-110) mg/dL Calcium 9.6 (8.4-10.2) mg/dL Magnesium 1.6 (1.6-2.3) mg/dL Total Bilirubin 1.2 (0.2-1.3) mg/dL AST 1249 H (14-36) IU/L ALT 624 H (<35) IU/L Alkaline Phosphatase 365 H (38-126) U/L Total Creatine Kinase 41 (30-135) U/L CK-MB (CK-2) TNP CK-MB (CK-2) Rel Index TNP Troponin I 0.018 (0.01-0.034) ng/mL NT-Pro-B Natriuret Pep 2230 H (<125) pg/mL Total Protein 7.4 (6.3-8.2) g/dL Albumin 3.9 (3.5-5.0) g/dL Globulin 3.5 (1.7-4.1) g/dL Albumin/Globulin Ratio 1.1 (1.0-2.8) Lipase 22 L (23-300) U/L SARS-CoV-2 (PCR) Negative (Negative) Point of Care Testing Glucose POC [address] scan - chest: Radiologist's Impression: Esophagitis, consider Boerhaave syndrome. No PE seen MDM Narrative Medical decision making narrative: Patient with longstanding history of alcoholic cirrhosis presents with what initially sounds like emoptysis, with elevated D-dimer and recent hospitalizations patient sent to CT scan for CT angiogram and PE rule out. Patient clarifies that it was coffee-ground emesis and not cough which is consistent with her findings. Vitals remain stable, H&H remained stable Patient with known liver disease is high risk upper GI bleed and possible esophageal perforation requires a higher level of care and we thank the various providers and staff at [facility] for helping care for this unfortunate patient. Critical Care Time Critical Care Time Critical Care Time: Yes Total Critical Care Time: 30 Attestation: The high probability of a clinically significant, sudden or life threatening deterioration of the [GI/CV] system(s) required my full and direct attention, intervention and personal management. The aggregate critical care time was [30] minutes. This time is in addition to time spent performing reported procedures but includes the following: [x] Data Review and interpretation [x] Patient assessment and monitoring of vital signs [x] Documentation [x] Medication orders and management Discharge Plan Departure [facility] Clinical Impression: Acute upper gastrointestinal bleeding, Esophagitis Prescriptions: No Action atorvastatin 40 mg tablet 40 mg PO QPM RF: 0 cholecalciferol (vitamin D3) [Vitamin D3] 1,000 unit Capsule 3,000 unit PO DAILY RF: 0 insulin aspart U-100 [Novolog Flexpen U-100 Insulin] 100 UNIT/1 ML insulin pen 1 dose subcut QIDACHS RF: 0 hydralazine 10 mg Tablet 20 mg PO BID RF: 0 tizanidine 2 mg Tablet 2 mg PO Q8H PRN (Reason: Muscle Spasm) RF: 0 sucralfate 1 gram Tablet 1 g PO QID RF: 0 cyanocobalamin (vitamin B-12) 1,000 mcg Tablet 1,000 mcg PO DAILY RF: 0 tramadol 50 mg tablet 50 mg PO BID PRN (Reason: Pain (Scale Score 7-10)) RF: 0 spironolactone 25 mg tablet 25 mg PO DAILY RF: 0 pantoprazole 40 mg tablet,delayed release (DR/EC) 40 mg PO BID RF: 0 ondansetron 4 mg tablet,disintegrating 8 mg PO Q6H PRN (Reason: nausea and vomiting) RF: 0 propranolol 20 mg tablet 20 mg PO DAILY RF: 0 Lantus U-100 Insulin 100 unit/mL Solution 11 unit SUBCUT DAILY RF: 0 aspirin 81 mg Tablet,Delayed Release (Dr/Ec) 81 mg PO BID Qty: 30 RF: 0 docusate sodium [DOK] 100 mg Capsule 100 mg PO BID Qty: 14 RF: 0 oxycodone 5 mg Tablet 5 mg PO Q3HR PRN (Reason: Pain, Moderate (4-6)) Qty: 15 RF: 0 Referrals: Jyoti Streeter MD [Primary Care Provider] -
--- NOTE | 2020-09-18 19:43 | DI.RAD.S_ITS ---
PROCEDURE: XR CHEST 1V INDICATIONS: cough, hemoptysis TECHNIQUE: One view of the chest was acquired. COMPARISON: [facility], CR, XR CHEST 1V, 08/18/2020, 3:09. FINDINGS: Surgical changes and devices: None. Lungs and pleura: Lungs are clear. No pleural effusions or pneumothorax. Mediastinum: Mediastinal contours appear normal. Heart size is normal. Aortic calcifications. Bones and chest wall: No suspicious bony lesions. Overlying soft tissues appear unremarkable. IMPRESSION: No acute cardiopulmonary disease. Dictated by: Aristeo Mendoza M.D. on 09/18/2020 at 20:25 Approved by: Aristeo Mendoza M.D. on 09/18/2020 at 20:25
[2020-09-18 20:40] LABS: Add Manual Diff / Slide Review NO; Basophils Absolute Auto 0 /uL (0-100); Basophils Percent Auto 0.2 % (0-2); Eosinophils Absolute Auto 0 /uL (0-450); Eosinophils Percent Auto 0.2 % (2-4); Hematocrit 33.8 % (36-46); Hemoglobin 11.4 g/dL (12.0-16.0); Lymphocytes Absolute Auto 800 /uL (1100-4500); Lymphocytes Percent Auto 8.2 % (25-40); Mean Corpuscular HGB Conc 33.8 % (30-36); Mean Corpuscular Hemoglobin 29.5 PG (26-34); Mean Corpuscular Volume 87.4 fL (80-100); Monocytes Absolute Auto 700 /uL (0-900); Monocytes Percent Auto 7.6 % (3-14); Neutrophils Absolute Auto 8000 /uL (1500-7000); Neutrophils Percent Auto 83.8 % (50-75); Platelet Count 215 X10^3/uL (150-400); Red Blood Cell Count 3.86 X10^6/uL (4.0-5.2); Red Cell Distribution Width 15.2 % (11.6-14.8); White Blood Cell Count 9.6 X10^3/uL (4.5-11.0)
[2020-09-18 20:46] LABS: Prothrombin Time 11.6 SECONDS (10.1-12.7)
[2020-09-18 20:52] LABS: Alanine Aminotransferase 624 IU/L (<35); Albumin 3.9 g/dL (3.5-5.0); Albumin Globulin Ratio 1.1 (1.0-2.8); Alkaline Phosphatase 365 U/L (38-126); BUN Creatinine Ratio 17.1 (6-22); Bilirubin Total 1.2 mg/dL (0.2-1.3); Blood Urea Nitrogen 19 mg/dL (7-17); Calcium 9.6 mg/dL (8.4-10.2); Carbon Dioxide 19 mmol/L (22-32); Chloride 110 mmol/L (98-107); Creatine Kinase 41 U/L (30-135); Estimated Glomerular Filt Rate 49.5 mL/min (>60); Globulin 3.5 g/dL (1.7-4.1); Glucose 156 mg/dL (80-110); HEMOLYSIS < 15 (0-50); Lipase 22 U/L (23-300); Magnesium 1.6 mg/dL (1.6-2.3); Potassium 3.7 mmol/L (3.4-5.1); Sodium 138 mmol/L (137-145); Total Protein 7.4 g/dL (6.3-8.2)
[2020-09-18] MEDS: diphenhydrAMINE 50 MG/ML VIAL 25 MG IV (20:55)
[2020-09-18] MEDS: methylPREDNISolone 125 MG/2 ML VIAL IV (20:56)
[2020-09-18] MEDS: SODIUM CHLORIDE 0.9% 1,000 ML 125 ML IV (20:56)
[2020-09-18 20:58] LABS: D Dimer 874 ng/mL (<230)
[2020-09-18 20:59] LABS: Aspartate Aminotransferase 1249 IU/L (14-36)
--- NOTE | 2020-09-18 21:02 | DI.CT.S_ITS ---
PROCEDURE: CT ANGIO CHEST PE PROTOCOL INDICATIONS: hemoptysis, recent hospitalization, SOB, tachypnea TECHNIQUE: After the administration of intravenous contrast, 2 mm thick sections acquired from the pulmonary apices to the posterior costophrenic angles. 3-dimensional maximum intensity projection (MIP) coronal and sagittal reformats were then acquired through the thorax. For radiation dose reduction, the following was used: automated exposure control, adjustment of mA and/or kV according to patient size. COMPARISON: [facility], MR, MR ABDOMEN PANCREAS PROTOCOL, 08/22/2020, 10:07. FINDINGS: Image quality: Excellent. Pulmonary arteries: Pulmonary arteries are normal in size, and demonstrate no intraluminal filling defects to suggest central pulmonary embolism. Lungs and pleura: Lungs are clear. No pleural effusions or pneumothorax. Central and peripheral airways are patent. Mediastinum: Heart size is normal, without pericardial effusion. Left ventricular hypertrophy. Atherosclerotic calcifications are noted in the aorta, great vessels and the coronary vasculature. No mediastinal or hilar adenopathy. Thoracic aorta is normal in caliber and enhancement. Esophagus is normal in caliber, without hiatal hernia. Bones and chest wall: Postsurgical changes compatible ORIF of left humerus rib fracture. No suspicious bony lesions. Ribs and thoracic spine appear intact throughout. Spine degenerative disc disease and facet arthropathy. Thyroid gland is within normal limits. No axillary or supraclavicular adenopathy. Abdomen: Small hiatal hernia. Long segment circumferential wall thickening involving the mid and distal thoracic esophagus. Liver has slightly nodular margins suggesting hepatic cirrhosis. Pneumobilia noted which could be related to prior sphincterotomy versus infectious process. IMPRESSION: 1. No pulmonary embolus. 2. No lung consolidation or pleural effusions. 3. Long segment circumferential wall thickening which could be due to esophagitis or neoplastic process. Recommend gastroenterology consultation. 4. Atherosclerosis including the coronary vasculature. 5. Cardiac left ventricular hypertrophy. 6. Hepatic cirrhosis. 7. Pneumobilia which could be due to prior sphincterotomy versus infectious cholangitis. Recommend correlation with clinical history and laboratory data. Dictated by: Rosalinda Suazo MD, PhD on 09/19/2020 at 7:01 Approved by: Rosalinda Suazo MD, PhD on 09/19/2020 at 7:11
[2020-09-18 21:03] LABS: NT-proBNP (BNP-Adult 18+) 2230 pg/mL (<125); Troponin I 0.018 ng/mL (0.01-0.034)
--- NOTE | 2020-09-18 21:06 | PC.NURSE ---
Patient was treated once before for low blood levels. She began throwing up today, what she describes was brown vomit. Today she states that she is not lightheaded, dizzy, SOB, or having any abdominal pain.
[2020-09-18] MEDS: METOCLOPRAMIDE 10 MG/2 ML INJ IV (21:14)
[2020-09-18] MEDS: PANTOPRAZOLE 40 MG VIAL IV (21:14)
[2020-09-18] MEDS: OCTREOTIDE 100 MCG/ML VIAL 50 MCG IV (21:23)
--- NOTE | 2020-09-18 21:28 | PC.NURSE ---
patient was medicated and still continues to vomit. provider aware. Suction at bedside and emesis bag at bedside
[2020-09-19] VITALS: BP 149/72; PULSE 72; RESP 21; O2SAT 96
[2020-09-19] MEDS: PANTOPRAZOLE 80 MG in SODIUM CHLORIDE 0.9% 100 ML 10 ML IV (00:16)
[2020-09-19 00:30] VITALS: BP 141/74; PULSE 68; O2SAT 96
[2020-09-19 00:37] LABS: COVID19 -Nasal RAPID Negative (Negative)
[2020-09-19 01:00] VITALS: BP 136/75; PULSE 66; RESP 21; O2SAT 97
[2020-09-19 02:01] VITALS: BP 163/76; PULSE 66; RESP 12; O2SAT 97
[2020-09-19] MEDS: OCTREOTIDE 500 MCG in SODIUM CHLORIDE 0.9% 100 ML 5.05 ML IV (02:05)
[2020-09-22 14:49] LABS: Acinetobacter baumannii Not Detected (Not Detect); Candida albicans Not Detected (Not Detect); Candida glabrata Not Detected (Not Detect); Candida krusei Not Detected (Not Detect); Candida parapsilosis Not Detected (Not Detect); Candida tropicalis Not Detected (Not Detect); E. coli Not Detected (Not Detect); Enterobacter cloacae complex Not Detected (Not Detect); Enterobacteriaceae species Detected (Not Detect); Enterococcus species Not Detected (Not Detect); Haemophilus influenzae Not Detected (Not Detect); KPC (carbapenem-resist gene) Not Detected (Not Detect); Listeria monocytogenes Not Detected (Not Detect); Methicillin-resistant gene Not Detected (Not Detect); Neisseria meningitidis Not Detected (Not Detect); Proteus species Not Detected (Not Detect); Pseudomonas aeruginosa Not Detected (Not Detect); Serratia marcescens Not Detected (Not Detect); Staphylococcus species Not Detected (Not Detect); Streptococcus agalactiae (Gr B Not Detected (Not Detect); Streptococcus pneumonia Not Detected (Not Detect); Streptococcus pyogenes (Gr A) Not Detected (Not Detect); Streptococcus species Not Detected (Not Detect); Vancomycin-rest genes A/B Not Detected (Not Detect)
== END 2020-09-19 03:40 | disposition short-term general hospital (02) ==
PROVIDERS: Emergency Provider Emergency Medicine; PCP Family Medicine
DX: K92.2 Gastrointestinal hemorrhage, unspecified (principal); K20.90 Esophagitis, unspecified without bleeding; Z20.822 Contact with and (suspected) exposure to COVID-19
CPT/HCPCS: 36415; 71045; 71275; 80053; 82550; 82962; 83690; 83735; 83880; 84484; 85025; 85379; 85610; 87040; 87150; 87186; 87205; 87635; 93005; 96361; 96365; 96366; 96368; 96375; 99284; 99291; C9803; C9113; J1200; J2354; J2765; J2930; Q9967

== ENCOUNTER → 2020-10-03 11:50 | Outpatient (CLI) | payer MEDICARE, MEDICAID, SELFPAY ==
[2020-08-17 19:42] VITALS: BMI 24.7
[2020-10-03 12:37] LABS: Add Manual Diff / Slide Review NO; Basophils Absolute Auto 100 /uL (0-100); Basophils Percent Auto 1.1 % (0-2); Eosinophils Absolute Auto 100 /uL (0-450); Eosinophils Percent Auto 1.1 % (2-4); Hematocrit 26.4 % (36-46); Hemoglobin 8.6 g/dL (12.0-16.0); Lymphocytes Absolute Auto 1500 /uL (1100-4500); Lymphocytes Percent Auto 19.8 % (25-40); Mean Corpuscular HGB Conc 32.6 % (30-36); Mean Corpuscular Hemoglobin 28.5 PG (26-34); Mean Corpuscular Volume 87.5 fL (80-100); Monocytes Absolute Auto 500 /uL (0-900); Monocytes Percent Auto 7.1 % (3-14); Neutrophils Absolute Auto 5300 /uL (1500-7000); Neutrophils Percent Auto 70.9 % (50-75); Platelet Count 289 X10^3/uL (150-400); Red Blood Cell Count 3.02 X10^6/uL (4.0-5.2); Red Cell Distribution Width 15.1 % (11.6-14.8); White Blood Cell Count 7.4 X10^3/uL (4.5-11.0)
[2020-10-03 12:47] LABS: Iron 44 ug/dL (37-170)
[2020-10-03 12:48] LABS: Alanine Aminotransferase 25 IU/L (<35); Albumin 3.1 g/dL (3.5-5.0); Alkaline Phosphatase 100 U/L (38-126); Aspartate Aminotransferase 23 IU/L (14-36); BUN Creatinine Ratio 16.3 (6-22); Bilirubin Total 0.5 mg/dL (0.2-1.3); Blood Urea Nitrogen 20 mg/dL (7-17); Carbon Dioxide 22 mmol/L (22-32); Chloride 110 mmol/L (98-107); Globulin 3.2 g/dL (1.7-4.1); Glucose 177 mg/dL (80-110); HEMOLYSIS < 15 (0-50); Potassium 4.4 mmol/L (3.4-5.1); Sodium 136 mmol/L (137-145); Total Protein 6.3 g/dL (6.3-8.2)
[2020-10-03 12:49] LABS: Hemoglobin A1C% w Est Avg Glu 7.9 % (4.0-6.0)
== END ==
PROVIDERS: PCP Family Medicine; Referring Provider Family Medicine; Visit Provider Family Medicine
DX: E10.8 Type 1 diabetes mellitus with unspecified complications (principal); K20.0 Eosinophilic esophagitis; N18.30 Chronic kidney disease, stage 3 unspecified
CPT/HCPCS: 36415; 80053; 83036; 83540; 85025

== ENCOUNTER 2020-10-22 21:23 | Emergency (ER) | payer MEDICARE, MEDICAID, SELFPAY ==
[2020-08-17 19:42] VITALS: BMI 24.7
[2020-10-22 21:41] VITALS: BP 183/88; PULSE 64; RESP 18; TEMP 36.6; O2SAT 100; BMI 22.4
--- NOTE | 2020-10-22 22:39 | PC.NURSE ---
BG 83
[2020-10-22 22:40] VITALS: PULSE 64; O2SAT 100
[2020-10-22 23:00] VITALS: PULSE 66; O2SAT 100
[2020-10-22] MEDS: ONDANSETRON 4 MG ODT SL (23:12)
--- NOTE | 2020-10-22 23:20 | PC.NURSE ---
Pt given zofran, then crackers with peanut butter and milk. Pt now eating.
[2020-10-22 23:30] VITALS: PULSE 68; O2SAT 99
[2020-10-23] VITALS: PULSE 67; O2SAT 99
[2020-10-23 00:30] VITALS: PULSE 64; O2SAT 99
--- NOTE | 2020-10-23 00:44 | PC.NURSE ---
Pt BG 99
--- NOTE | 2020-10-23 00:45 | ED.GENADULT ---
HPI - General Adult General Chief complaint: Diabetic Problem Stated complaint: low blood sugar - low 60s Time Seen by Provider: 10/22/20 21:35 Source: family Mode of arrival: Wheelchair History of Present Illness HPI narrative: 65-year-old type 1 diabetic with a history of hyperlipidemia hypertension reflux and prior myocardial infarction presents with relative hypoglycemia. Her keeps excellent records of her blood sugars. They use a sliding scale if she is over 200 and 14 units of Lantus either in the morning or the evening if her numbers are high. She has significant dramatic swings in blood sugars and can easily go from 450-45 within a few hours. She has not had any signs or symptoms of infection, fevers, chills, abdominal pain, vomiting, diarrhea, chest pain, dyspnea, lower extremity edema. She has felt like her usual self over the course of the day. Her notes that last evening her blood sugar was in the 400 range and she was given 14 units of Lantus. This morning it was 123 by noon it had not changed and no additional insulin was given today. She does have a history of gastroparesis with associated nausea and vomiting. She had a small dinner and then an episode of nausea with vomiting and afterwards her blood sugar was it 66. Her gave her some orange use which did not change her sugars so he brought her to the emergency department. She was alert and appropriate, no diaphoresis and at time of arrival, with blood sugar still in the mid 60s. Related Data Home Medications Medication Instructions Recorded Confirmed atorvastatin 40 mg PO QPM 10/08/17 08/17/20 cholecalciferol (vitamin D3) 3,000 unit PO DAILY 10/08/17 08/17/20 [Vitamin D3] insulin aspart U-100 [Novolog 1 dose SUBCUT QIDACHS 10/08/17 08/17/20 Flexpen U-100 Insulin] cyanocobalamin (vitamin B-12) 1,000 mcg PO DAILY 08/02/19 08/17/20 hydralazine 20 mg PO BID 08/02/19 08/17/20 sucralfate 1 g PO QID 08/02/19 08/17/20 tizanidine 2 mg PO Q8H PRN 08/02/19 08/17/20 Lantus U-100 Insulin 11 unit SUBCUT DAILY 12/26/19 08/17/20 ondansetron 8 mg PO Q6H PRN 12/26/19 08/17/20 pantoprazole 40 mg PO BID 12/26/19 08/17/20 propranolol 20 mg PO DAILY 12/26/19 08/17/20 spironolactone 25 mg PO DAILY 12/26/19 08/17/20 tramadol 50 mg PO BID PRN 12/26/19 08/17/20 Previous Rx's Medication Instructions Recorded aspirin 81 mg PO BID #30 tab 12/29/19 docusate sodium [DOK] 100 mg PO BID #14 cap 12/29/19 oxycodone 5 mg PO Q3HR PRN #15 tab 12/29/19 Allergies Allergy/AdvReac Type Severity Reaction Status Date / Time Iodine and Iodide Containing Allergy Unknown Verified 05/02/20 14:24 Produc [IODINE AND IODIDE CONTAINING PRODUC] latex [LATEX] Allergy Unknown Verified 05/02/20 14:24 Review of Systems Review of Systems Narrative: Remainder of complete review of systems is otherwise unremarkable except for that included in the HPI. Patient History Medical History Dow's esophagus with esophagitis CVA (cerebral vascular accident) Dementia Diabetes Gallbladder disease GERD (gastroesophageal reflux disease) Hyperlipidemia Hypertension Overactive bladder Subdural hematoma Upper GI bleed Surgical History History of cholecystectomy Tubal ligation status Family History Mother Heart disease Father No problems noted. Social History household members: spouse Smoking Status: Current some day smoker alcohol intake: former Smoking Status: Current some day smoker tobacco type: cigarettes alcohol intake frequency: holidays/special occasions only Alcohol type: hard liquor Substance Use Type: does not use Exam Narrative Exam Narrative: General: Frail-appearing but in no acute distress. Able to give a complete and coherent history. Well-nourished well-developed HEENT: Moist mucous membranes, normal sclera with reactive pupils, Neck: No JVD, supple Respiratory: Lungs are clear to auscultation, no wheezing no rales no rhonchi. Full and symmetrical air movement Cardiac: Regular rate and rhythm no murmurs no bruits Abdomen: Soft, nontender, good bowel tones, no flank pain Skin: Pale, Warm and dry, no rashes Neurologic: Grossly neurologically intact with no obvious asymmetries or abnormalities Extremities: No trauma, well perfused Psych: Cooperative, appropriate insight and affect Initial Vital Signs Initial Vital Signs: Vital Signs Temperature 97.8 F 10/22/20 21:41 Pulse Rate 64 10/22/20 21:41 Respiratory Rate 18 10/22/20 21:41 Blood Pressure 183/88 H 10/22/20 21:41 Pulse Oximetry 100 10/22/20 21:41 Course Orders Ordered: Discontinued Medications Ondansetron HCl (Ondansetron 4 Mg Odt) 4 mg SL NOW ONE Stop: 10/22/20 23:05 Last Admin: 10/22/20 23:12 Dose: 4 mg Documented by: SHIRA Vital Signs Vital signs: Vital Signs - 8 hr 10/22/20 21:41 10/22/20 22:40 10/22/20 23:00 Temperature 97.8 F Pulse Rate 64 64 66 Respiratory Rate 18 Blood Pressure 183/88 H Pulse Oximetry 100 100 100 10/22/20 23:30 10/23/20 00:00 10/23/20 00:30 Temperature Pulse Rate 68 67 64 Respiratory Rate Blood Pressure Pulse Oximetry 99 99 99 10/23/20 01:22 Temperature Pulse Rate 65 Respiratory Rate 18 Blood Pressure 192/90 H Pulse Oximetry 99 Medical Decision Making Medical Records Medical records reviewed: Yes I reviewed the patient's medical records. Lab Data Labs: Point of Care Testing Glucose POC 64 Point of care testing: Point of Care Testing Glucose POC 64 [facility] Narrative Medical decision making narrative: 65-year-old woman presents with hypoglycemia with no additional insulin given today. She has had similar episodes and has no indication of infection or cardiovascular abnormalities such is stroke or myocardial infarction. Multiple attempts were made at starting an IV as well as blood draws and we were not successful. She was able to have some orange juice and her sugars have continued to increase over the course of her ER stay. She was given a dose of Zofran and than a small meal when her sugar is currently up to 100. We shared decision making, we opted to not proceed with more invasive vascular options to obtain additional blood work or not give any fluids. By time of discharge she is alert, feeling back to normal has a blood sugar of 100 and is safe for home discharge. Her will continue to check blood sugars regularly over the course of the evening and make sure that she is having snacks as necessary. They had been seeing Dr. Streeter but he was laid off from [facility] so they are working on establishing care with a new physician. They have an established appointment already with Dr. Arroyo on October 25. Discharge Plan Departure Patient Disposition: Home Clinical Impression: Hypoglycemia Instructions: DI for Diabetes Type 1 -- Adult Activity Restrictions/Additional Instructions: Thank you for coming in today Your blood sugar is now seeming to come up nicely. We did not find any evidence for infection or other significant pathology to explain your low blood sugars. I am going to suggest that you decrease your Lantus dose to 12 units from 14 and continue the regular checking and current short-acting insulin coverage Please make sure you keep your new patient appointment with Dr. Arroyo on the . If it seems like you are getting worse or your having more difficulties with low blood sugars, please feel free to return to the ER Prescriptions: No Action atorvastatin 40 mg tablet 40 mg PO QPM RF: 0 cholecalciferol (vitamin D3) [Vitamin D3] 1,000 unit Capsule 3,000 unit PO DAILY RF: 0 insulin aspart U-100 [Novolog Flexpen U-100 Insulin] 100 UNIT/1 ML insulin pen 1 dose subcut QIDACHS RF: 0 hydralazine 10 mg Tablet 20 mg PO BID RF: 0 tizanidine 2 mg Tablet 2 mg PO Q8H PRN (Reason: Muscle Spasm) RF: 0 sucralfate 1 gram Tablet 1 g PO QID RF: 0 cyanocobalamin (vitamin B-12) 1,000 mcg Tablet 1,000 mcg PO DAILY RF: 0 tramadol 50 mg tablet 50 mg PO BID PRN (Reason: Pain (Scale Score 7-10)) RF: 0 spironolactone 25 mg tablet 25 mg PO DAILY RF: 0 pantoprazole 40 mg tablet,delayed release (DR/EC) 40 mg PO BID RF: 0 ondansetron 4 mg tablet,disintegrating 8 mg PO Q6H PRN (Reason: nausea and vomiting) RF: 0 propranolol 20 mg tablet 20 mg PO DAILY RF: 0 Lantus U-100 Insulin 100 unit/mL Solution 11 unit SUBCUT DAILY RF: 0 aspirin 81 mg Tablet,Delayed Release (Dr/Ec) 81 mg PO BID Qty: 30 RF: 0 docusate sodium [DOK] 100 mg Capsule 100 mg PO BID Qty: 14 RF: 0 oxycodone 5 mg Tablet 5 mg PO Q3HR PRN (Reason: Pain, Moderate (4-6)) Qty: 15 RF: 0 Referrals: Jyoti Streeter MD [Primary Care Provider] -
[2020-10-23 01:22] VITALS: BP 192/90; PULSE 65; RESP 18; O2SAT 99
== END 2020-10-23 01:22 | disposition home or self-care (01) ==
PROVIDERS: Emergency Provider Emergency Medicine; PCP Family Medicine
DX: E10.649 Type 1 diabetes mellitus with hypoglycemia without coma (principal); Z79.4 Long term (current) use of insulin
CPT/HCPCS: 99282; 99283

== ENCOUNTER 2020-12-13 18:36 | Observation (INO) | payer MEDICARE, MEDICAID, SELFPAY ==
[2020-08-17 19:42] VITALS: BMI 24.7
[2020-12-13] VITALS (11 sets, daily range): BP systolic 144–186; BP diastolic 70–91; PULSE 63–75; RESP 14–20; TEMP 37.1; O2SAT 87–99; BMI 23.6
--- NOTE | 2020-12-13 18:58 | DI.CT.S_ITS ---
PROCEDURE: CT HEAD/BRAIN WO CON INDICATIONS: Altered mental status TECHNIQUE: Noncontrast 4.5 mm thick angled axial sections acquired from the foramen magnum to the vertex, with coronal and sagittal reformats. For radiation dose reduction, the following was used: automated exposure control, adjustment of mA and/or kV according to patient size. COMPARISON: [facility], CT, CT HEAD/BRAIN WO CON, 07/10/2020, 0:06. FINDINGS: Image quality: Excellent. CSF spaces: Basal cisterns are patent. No extra-axial fluid collections. The ventricles are symmetric in size and shape. Brain: No intracranial bleeds or masses. Old lacunar infarct is again seen in right basal ganglia and right thalamus. There is cerebral volume loss for age, with resultant ventricular and sulcal prominence. There are periventricular and deep white matter chronic small vessel ischemic changes. There is intracranial internal carotid artery atherosclerosis. Skull and face: Calvarium and visualized facial bones appear intact, without suspicious lesions. Sinuses: Visualized sinuses and mastoids are clear. IMPRESSION: No CT evidence of acute intracranial pathology. No significant changes from previous study. Dictated by: Antwon Redd M.D. on 12/13/2020 at 19:17 Approved by: Antwon Redd M.D. on 12/13/2020 at 19:18
[2020-12-13 19:05] LABS: Add Manual Diff / Slide Review NO; Basophils Absolute Auto 0 /uL (0-100); Basophils Percent Auto 0.6 % (0-2); Eosinophils Absolute Auto 100 /uL (0-450); Eosinophils Percent Auto 1.8 % (2-4); Hematocrit 29.6 % (36-46); Hemoglobin 9.4 g/dL (12.0-16.0); Lymphocytes Absolute Auto 1500 /uL (1100-4500); Lymphocytes Percent Auto 26.6 % (25-40); Mean Corpuscular HGB Conc 31.7 % (30-36); Mean Corpuscular Hemoglobin 25.5 PG (26-34); Mean Corpuscular Volume 80.4 fL (80-100); Monocytes Absolute Auto 600 /uL (0-900); Monocytes Percent Auto 10.5 % (3-14); Neutrophils Absolute Auto 3500 /uL (1500-7000); Neutrophils Percent Auto 60.5 % (50-75); Platelet Count 277 X10^3/uL (150-400); Red Blood Cell Count 3.67 X10^6/uL (4.0-5.2); Red Cell Distribution Width 14.6 % (11.6-14.8); White Blood Cell Count 5.8 X10^3/uL (4.5-11.0)
[2020-12-13 19:30] LABS: Lactate (Lactic Acid) 0.8 mmol/L (0.7-2.1)
[2020-12-13 19:32] LABS: Alanine Aminotransferase 12 IU/L (<35); Albumin Globulin Ratio 0.9 (1.0-2.8); Alkaline Phosphatase 89 U/L (38-126); Aspartate Aminotransferase 20 IU/L (14-36); BUN Creatinine Ratio 10.4 (6-22); Bilirubin Total 0.4 mg/dL (0.2-1.3); Blood Urea Nitrogen 17 mg/dL (7-17); Calcium 8.8 mg/dL (8.4-10.2); Carbon Dioxide 24 mmol/L (22-32); Chloride 108 mmol/L (98-107); Creatine Kinase 56 U/L (30-135); Estimated Glomerular Filt Rate 31.5 mL/min (>60); Ethanol (ETOH) < 10 mg/dL; Globulin 3.2 g/dL (1.7-4.1); Glucose 324 mg/dL (80-110); HEMOLYSIS < 15 (0-50); Potassium 4.5 mmol/L (3.4-5.1); Sodium 136 mmol/L (137-145); Total Protein 6.2 g/dL (6.3-8.2)
[2020-12-13 19:44] LABS: Troponin I < 0.012 ng/mL (0.01-0.034)
[2020-12-13 20:03] LABS: Thyroid Stimulating Hormone 1.69 uIU/mL (0.47-4.68)
[2020-12-13] MEDS: SODIUM CHLORIDE 0.9% 1,000 ML 1000 ML IV (20:03)
--- NOTE | 2020-12-13 20:05 | ED.AMS ---
HPI - Altered Mental Status General Chief Complaint: Altered Mental Status Stated Complaint: tired, weak legs Time Seen by Provider: 12/13/20 18:44 Source: patient Mode of arrival: Wheelchair Limitations: no limitations History of Present Illness HPI narrative: Patient here for altered mental status generalized malaise weakness. Patient and state feels the same when she had UTI earlier this month. Was seen in [place] November 23 and formerly [facility] 5 days for UTI. Improved on traveling by car back home. Has been home and doing well until today she had appointment with a provider and on the way back from the office states she fell sleep. Unusual for her. An all day long very tired and not herself. No nausea vomiting. Patient is awake alert oriented to self date of and where she is at. However month and year is incorrect. Has clear speech no facial droop. Denies any pain, no headache no chest pain abdominal pain or back pain. No numbness tingling or weakness. Patient is baseline incontinent of urine. Stroke in the past and IL in the past. states this is not remnant or any the similarity to stroke in the past 5 years. Had a IL according to because of a esophageal bleed. Denies any alcohol or drug abuse. Otherwise no cough cold congestion fever chills. Related Data Home Medications Medication Instructions Recorded Confirmed cholecalciferol (vitamin D3) 25 1,000 unit PO BID 10/08/17 12/14/20 mcg (1,000 unit) capsule (Vitamin D3) insulin aspart U-100 100 unit/mL 1 dose SUBCUT QIDACHS 10/08/17 12/14/20 (3 mL) subcutaneous pen (Novolog Flexpen U-100 Insulin aspart) cyanocobalamin (vitamin B-12) 1,000 mcg PO DAILY 08/02/19 12/14/20 1,000 mcg tablet sucralfate 1 gram tablet 1 g PO QID 08/02/19 12/14/20 insulin glargine 100 unit/mL 12 unit SUBCUT BID 12/26/19 12/14/20 subcutaneous solution (Lantus U-100 Insulin) pantoprazole 40 mg tablet,delayed 20 mg PO BID 12/26/19 12/14/20 release amlodipine 10 mg tablet 10 mg PO DAILY 12/14/20 12/14/20 lisinopril 20 mg tablet 20 mg PO DAILY 12/14/20 12/14/20 metoclopramide HCl 5 mg tablet 5 mg PO QAC 12/14/20 12/14/20 (Reglan) oxybutynin chloride 5 mg tablet 5 mg PO DAILY 12/14/20 12/14/20 Allergies Allergy/AdvReac Type Severity Reaction Status Date / Time Iodine and Iodide Containing Allergy Unknown Verified 12/13/20 18:54 Produc [IODINE AND IODIDE CONTAINING PRODUC] latex [LATEX] Allergy Unknown Verified 12/13/20 18:54 Review of Systems Review of Systems Narrative: GENERAL: Denies chills, complains fatigue, malaise, denies fever, sweats. HEENT: Denies sinus pain, ear pain, sore throat RESPIRATORY: Denies dyspnea, cough CARDIOVASCULAR: Denies chest pain, palpitations GASTROINTESTINAL: Denies nausea, vomiting, abdominal pain : Denies dysuria, frequency, hematuria MUSCULOSKELETAL: denies muscle or bony pain SKIN: Denies rash, skin lesions NEUROLOGIC: Denies weakness, numbness, complaints altered mental status/confusion Patient History Medical History Dow's esophagus with esophagitis CVA (cerebral vascular accident) Dementia Diabetes Gallbladder disease GERD (gastroesophageal reflux disease) Hyperlipidemia Hypertension Overactive bladder Subdural hematoma Upper GI bleed Surgical History History of cholecystectomy Tubal ligation status Family History Mother Heart disease Father No problems noted. Social History household members: spouse Smoking Status: Former smoker alcohol intake: former Smoking Status: Former smoker tobacco type: cigarettes alcohol intake frequency: holidays/special occasions only Alcohol type: hard liquor Substance Use Type: marijuana Exam Narrative Exam Narrative: GENERAL: in no distress, not toxic not dyspneic HEAD: Normocephalic. EYES: Pupils equal round No scleral icterus. No injection no discharge ENT: Mucous membranes moist. NECK: Trachea midline. CARDIOVASCULAR: Regular rate and rhythm without murmurs RESPIRATORY: Clear to auscultation. Breath sounds equal bilaterally. No wheezes, rales, or rhonchi. GASTROINTESTINAL: Abdomen soft, non-tender EXTREMITIES: No gross deformities. BACK: No flank tenderness. NEURO: AOx4. Clear speech no facial droop. Light touch intact to bilateral face hands and feet. Strong equal rehabilitation worker bilaterally and ankle flexion hip flexion and knee flexion. Strong bilateral patellar reflexes. No pronator drift. Strong bilateral leg lifts SKIN: Warm and dry PSYCH: Not anxious, is cooperative Initial Vital Signs Initial Vital Signs: Vital Signs Temperature 98.7 F 12/13/20 18:54 Pulse Rate 74 12/13/20 18:54 Respiratory Rate 20 12/13/20 18:54 Blood Pressure 150/70 H 12/13/20 18:54 Pulse Oximetry 99 12/13/20 18:54 Course Orders Ordered: Acetaminophen (Acetaminophen 325 Mg Tablet) 650 mg PO Q6HR PRN PRN Reason: Fever/Mild Pain (1-3) Amlodipine Besylate (Amlodipine 5 Mg Tablet) 10 mg PO DAILY [facility] Dextrose (Dextrose 50 % In Water 25 Gm/50 Ml Syringe) 25 gm IV PRN PRN PRN Reason: Hypoglycemia Last Admin: 12/14/20 08:21 Dose: 12.5 gm Documented by: EMMY Hydralazine HCl (Hydralazine 20 Mg/Ml Vial) 10 mg IV Q6HR PRN PRN Reason: Hypertension Last Admin: 12/14/20 04:08 Dose: 10 mg Documented by: JUNIOR Ceftriaxone Sodium 1,000 mg/ (Sodium Chloride) 100 mls @ 200 mls/hr IV Q24H [facility] Stop: 12/16/20 21:59 Last Admin: 12/14/20 23:46 Dose: 200 mls/hr Documented by: MONO Insulin Glargine (Insulin Glargine 100 Unit/Ml 3ml Pen) 9 unit SUBCUT 2100 MIRIAM Last Admin: 12/14/20 20:50 Dose: 9 unit Documented by: OVIDIO Cosigned by: JOHN Insulin Human Lispro (Insulin Lispro 100 Unit/Ml 3ml Vial) 0 unit SUBCUT ACHS [facility]; Protocol Last Admin: 12/14/20 20:49 Dose: 2 unit Documented by: OVIDIO Cosigned by: JOHN Admin: 12/14/20 17:24 Dose: 1 unit Documented by: EUN Cosigned by: ADBIAS Admin: 12/14/20 12:24 Dose: Not Given Documented by: Admin: 12/14/20 07:45 Dose: Not Given Documented by: STARR Lisinopril (Lisinopril 20 Mg Tablet) 20 mg PO DAILY [facility] Metoclopramide HCl (Metoclopramide Hcl 10 Mg Tablet) 5 mg PO AC [facility] Naloxone HCl (Naloxone 0.4 Mg/Ml Vial) 0.2 mg IV Q2MIN PRN PRN Reason: Opiate Reversal Ondansetron HCl (Ondansetron 4 Mg/2 Ml Inj) 4 mg IV Q8HR PRN PRN Reason: Nausea And Vomiting Oxybutynin (Oxybutynin 5 Mg Tablet) 5 mg PO DAILY [facility] Pantoprazole Sodium (Pantoprazole 40 Mg Vial) 20 mg IV DAILY [facility] Last Admin: 12/14/20 09:56 Dose: 20 mg Documented by: EUN Pantoprazole Sodium (Pantoprazole Dr 40 Mg Tablet) 20 mg PO 0700,2100 [facility] Last Admin: 12/14/20 20:46 Dose: 20 mg Documented by: OVIDIO Sodium Chloride (Sodium Chloride 0.9% Flush) 10 ml IV PRN PRN PRN Reason: Flush Sodium Chloride (Sodium Chloride 0.9% Flush) 10 ml IV BID [facility] Last Admin: 12/14/20 20:58 Dose: 10 ml Documented by: OVIDIO Sucralfate (Sucralfate 1 Gm Tablet) 1 gm PO QID [facility] Last Admin: 12/14/20 20:46 Dose: 1 gm Documented by: Admin: 12/14/20 17:17 Dose: 1 gm Documented by: EUN Discontinued Medications Amlodipine Besylate (Amlodipine 5 Mg Tablet) 10 mg PO NOW ONE Stop: 12/14/20 17:10 Last Admin: 12/14/20 17:19 Dose: 10 mg Documented by: EUN Sodium Chloride (Normal Saline 0.9%) 1,000 mls @ 1,000 mls/hr IV BOLUS ONE Stop: 12/13/20 20:56 Last Infusion: 12/13/20 22:07 Dose: 0 mls/hr Documented by: Admin: 12/13/20 20:03 Dose: 1,000 mls/hr Documented by: JUNIOR Ceftriaxone Sodium 2,000 mg/ (Sodium Chloride) 100 mls @ 200 mls/hr IV NOW ONE Stop: 12/13/20 23:08 Last Infusion: 12/14/20 01:08 Dose: 0 mls/hr Documented by: Admin: 12/13/20 23:24 Dose: 200 mls/hr Documented by: NEGRA Sodium Chloride (Normal Saline 0.9%) 1,000 mls @ 1,000 mls/hr IV BOLUS ONE Stop: 12/14/20 00:54 Last Infusion: 12/14/20 02:39 Dose: 0 mls/hr Documented by: Admin: 12/14/20 01:14 Dose: 1,000 mls/hr Documented by: JUNIOR Sodium Chloride (Normal Saline 0.9%) 1,000 mls @ 125 mls/hr IV CONT [facility] Last Admin: 12/14/20 09:55 Dose: 125 mls/hr Documented by: Admin: 12/14/20 01:08 Dose: Not Given Documented by: JUNIOR Ceftriaxone Sodium 1,000 mg/ (Sodium Chloride) 100 mls @ 200 mls/hr IV Q24H [facility] Last Admin: 12/14/20 10:14 Dose: Not Given Documented by: EUN Ceftriaxone Sodium 1,000 mg/ (Sodium Chloride) 100 mls @ 200 mls/hr IV Q24H [facility] Insulin Glargine (Insulin Glargine 100 Unit/Ml 3ml Pen) 20 unit SUBCUT 2100 [facility] Last Admin: 12/14/20 01:14 Dose: 20 unit Documented by: JUNIOR Cosigned by: HGUBERN Insulin Glargine (Insulin Glargine 100 Unit/Ml 3ml Pen) 10 unit SUBCUT 2100 [facility] Reevaluation(s) Reevaluation #1: Reviewed results with patient and . Agree for admit. Time: 23:18 Consultations Consultation #1: Spoke with nurse practitioner hospitalist. Will admit patient. Time: 23:27 Vital Signs Vital signs: Vital Signs - 8 hr 12/13/20 18:54 12/13/20 19:47 12/13/20 20:05 Temperature 98.7 F Pulse Rate 74 66 70 Respiratory Rate 20 18 Blood Pressure 150/70 H Pulse Oximetry 99 96 96 12/13/20 20:30 12/13/20 21:00 12/13/20 21:30 Temperature Pulse Rate 69 67 75 Respiratory Rate 14 17 18 Blood Pressure 186/80 H 144/86 H 164/81 H Pulse Oximetry 99 96 92 12/13/20 22:00 Temperature Pulse Rate 74 Respiratory Rate 18 Blood Pressure 180/91 H Pulse Oximetry 96 MDM - Altered Mental Status Differential Diagnosis Differential diagnosis: Likely altered mental status and other (UTI/stroke/electrolyte imbalance) Lab Data Result diagrams: 12/15/20 05:22 12/15/20 05:22 Labs: Lab Results 12/13/20 12/13/20 12/13/20 Range/Units 19:00 19:00 19:00 WBC 5.8 (4.5-11.0) X10^3/uL RBC 3.67 L (4.0-5.2) X10^6/uL Hgb 9.4 L (12.0-16.0) g/dL Hct 29.6 L (36-46) % MCV 80.4 (80-100) fL MCH 25.5 L (26-34) PG MCHC 31.7 (30-36) % RDW 14.6 (11.6-14.8) % Plt Count 277 (150-400) X10^3/uL Neut % (Auto) 60.5 (50-75) % Lymph % (Auto) 26.6 (25-40) % Warrick % (Auto) 10.5 (3-14) % Eos % (Auto) 1.8 L (2-4) % Baso % (Auto) 0.6 (0-2) % Neut # (Auto) 3500 (3243-6191) /uL Lymph # (Auto) 1500 (8263-7127) /uL Warrick # (Auto) 600 (0-900) /uL Eos # (Auto) 100 (0-450) /uL Baso # (Auto) 0 (0-100) /uL Sodium 136 L (137-145) mmol/L Potassium 4.5 (3.4-5.1) mmol/L Chloride 108 H (98-107) mmol/L Carbon Dioxide 24 (22-32) mmol/L BUN 17 (7-17) mg/dL Creatinine 1.64 H (0.52-1.04) mg/dL Estimated GFR 31.5 L (>60) mL/min BUN/Creatinine Ratio 10.4 (6-22) Glucose 324 H (80-110) mg/dL Hemoglobin A1c (4.0-6.0) % Lactate 0.8 (0.7-2.1) mmol/L Calcium 8.8 (8.4-10.2) mg/dL Magnesium (1.6-2.3) mg/dL Total Bilirubin 0.4 (0.2-1.3) mg/dL AST 20 (14-36) IU/L ALT 12 (<35) IU/L Alkaline Phosphatase 89 (38-126) U/L Total Creatine Kinase 56 (30-135) U/L CK-MB (CK-2) TNP CK-MB (CK-2) Rel Index TNP Troponin I < 0.012 (0.01-0.034) ng/mL Total Protein 6.2 L (6.3-8.2) g/dL Albumin 3.0 L (3.5-5.0) g/dL Globulin 3.2 (1.7-4.1) g/dL Albumin/Globulin Ratio 0.9 L (1.0-2.8) Procalcitonin (<0.5) ng/mL TSH (0.47-4.68) uIU/mL Prolactin 15.0 (3.0-18.6) ng/mL Urine Color Urine Appearance Urine pH (4.5-8.0) Ur Specific Reader (1.000-1.035) Urine Protein (Negative) Urine Glucose (UA) (Negative) g/dL Urine Ketones (NEGATIVE) Urine Occult Blood (Negative) Urine Nitrate (Negative) Urine Bilirubin (NEGATIVE) Urine Urobilinogen (0.2) E.U./dL Ur Leukocyte Esterase (NEGATIVE) Urine RBC (0-5/HPF) Urine WBC (0-5/HPF) Ur Squamous Epith Cells (0-5/HPF) Urine Bacteria (None) Hyaline Casts (None) Urine Yeast (None) Ur Culture Indicated? U Opiates 300ng/mL cut (Negative) Ur Oxycodone Screen (Negative) Urine Methadone Screen (Negative) Ur Barbiturates Screen (Negative) U Tricyclic Antidepress (Negative) Ur Phencyclidine Scrn (Negative) Ur Amphetamines Screen (Negative) U Methamphetamines Scrn (Negative) Ur MDMA Scrn (Ecstasy) (Negative) U Benzodiazepines Scrn (Negative) Urine Cocaine Screen (Negative) U Marijuana (THC) Screen (Negative) Ethyl Alcohol < 10 ( - 10) mg/dL Ketones (<0.27) mmol/L SARS-CoV-2 (PCR) (Negative) 12/13/20 12/13/20 12/13/20 Range/Units 19:00 19:00 19:00 WBC (4.5-11.0) X10^3/uL RBC (4.0-5.2) X10^6/uL Hgb (12.0-16.0) g/dL Hct (36-46) % MCV (80-100) fL MCH (26-34) PG MCHC (30-36) % RDW (11.6-14.8) % Plt Count (150-400) X10^3/uL Neut % (Auto) (50-75) % Lymph % (Auto) (25-40) % Warrick % (Auto) (3-14) % Eos % (Auto) (2-4) % Baso % (Auto) (0-2) % Neut # (Auto) (2484-1215) /uL Lymph # (Auto) (2793-4978) /uL Warrick # (Auto) (0-900) /uL Eos # (Auto) (0-450) /uL Baso # (Auto) (0-100) /uL Sodium (137-145) mmol/L Potassium (3.4-5.1) mmol/L Chloride (98-107) mmol/L Carbon Dioxide (22-32) mmol/L BUN (7-17) mg/dL Creatinine (0.52-1.04) mg/dL Estimated GFR (>60) mL/min BUN/Creatinine Ratio (6-22) Glucose (80-110) mg/dL Hemoglobin A1c 10.9 H (4.0-6.0) % Lactate (0.7-2.1) mmol/L Calcium (8.4-10.2) mg/dL Magnesium 1.7 (1.6-2.3) mg/dL Total Bilirubin (0.2-1.3) mg/dL AST (14-36) IU/L ALT (<35) IU/L Alkaline Phosphatase (38-126) U/L Total Creatine Kinase (30-135) U/L CK-MB (CK-2) CK-MB (CK-2) Rel Index Troponin I (0.01-0.034) ng/mL Total Protein (6.3-8.2) g/dL Albumin (3.5-5.0) g/dL Globulin (1.7-4.1) g/dL Albumin/Globulin Ratio (1.0-2.8) Procalcitonin (<0.5) ng/mL TSH 1.69 (0.47-4.68) uIU/mL Prolactin (3.0-18.6) ng/mL Urine Color Urine Appearance Urine pH (4.5-8.0) Ur Specific Reader (1.000-1.035) Urine Protein (Negative) Urine Glucose (UA) (Negative) g/dL Urine Ketones (NEGATIVE) Urine Occult Blood (Negative) Urine Nitrate (Negative) Urine Bilirubin (NEGATIVE) Urine Urobilinogen (0.2) E.U./dL Ur Leukocyte Esterase (NEGATIVE) Urine RBC (0-5/HPF) Urine WBC (0-5/HPF) Ur Squamous Epith Cells (0-5/HPF) Urine Bacteria (None) Hyaline Casts (None) Urine Yeast (None) Ur Culture Indicated? U Opiates 300ng/mL cut (Negative) Ur Oxycodone Screen (Negative) Urine Methadone Screen (Negative) Ur Barbiturates Screen (Negative) U Tricyclic Antidepress (Negative) Ur Phencyclidine Scrn (Negative) Ur Amphetamines Screen (Negative) U Methamphetamines Scrn (Negative) Ur MDMA Scrn (Ecstasy) (Negative) U Benzodiazepines Scrn (Negative) Urine Cocaine Screen (Negative) U Marijuana (THC) Screen (Negative) Ethyl Alcohol ( - 10) mg/dL Ketones (<0.27) mmol/L SARS-CoV-2 (PCR) (Negative) 12/13/20 12/13/20 12/13/20 Range/Units 19:00 19:00 22:36 WBC (4.5-11.0) X10^3/uL RBC (4.0-5.2) X10^6/uL Hgb (12.0-16.0) g/dL Hct (36-46) % MCV (80-100) fL MCH (26-34) PG MCHC (30-36) % RDW (11.6-14.8) % Plt Count (150-400) X10^3/uL Neut % (Auto) (50-75) % Lymph % (Auto) (25-40) % Warrick % (Auto) (3-14) % Eos % (Auto) (2-4) % Baso % (Auto) (0-2) % Neut # (Auto) (4035-3849) /uL Lymph # (Auto) (0129-3219) /uL Warrick # (Auto) (0-900) /uL Eos # (Auto) (0-450) /uL Baso # (Auto) (0-100) /uL Sodium (137-145) mmol/L Potassium (3.4-5.1) mmol/L Chloride (98-107) mmol/L Carbon Dioxide (22-32) mmol/L BUN (7-17) mg/dL Creatinine (0.52-1.04) mg/dL Estimated GFR (>60) mL/min BUN/Creatinine Ratio (6-22) Glucose (80-110) mg/dL Hemoglobin A1c (4.0-6.0) % Lactate (0.7-2.1) mmol/L Calcium (8.4-10.2) mg/dL Magnesium (1.6-2.3) mg/dL Total Bilirubin (0.2-1.3) mg/dL AST (14-36) IU/L ALT (<35) IU/L Alkaline Phosphatase (38-126) U/L Total Creatine Kinase (30-135) U/L CK-MB (CK-2) CK-MB (CK-2) Rel Index Troponin I (0.01-0.034) ng/mL Total Protein (6.3-8.2) g/dL Albumin (3.5-5.0) g/dL Globulin (1.7-4.1) g/dL Albumin/Globulin Ratio (1.0-2.8) Procalcitonin 0.12 (<0.5) ng/mL TSH (0.47-4.68) uIU/mL Prolactin (3.0-18.6) ng/mL Urine Color Yellow Urine Appearance Clear Urine pH 5.5 (4.5-8.0) Ur Specific Reader 1.015 (1.000-1.035) Urine Protein 3+ H (Negative) Urine Glucose (UA) 2+ H (Negative) g/dL Urine Ketones Negative (NEGATIVE) Urine Occult Blood 1+ H (Negative) Urine Nitrate Negative (Negative) Urine Bilirubin Negative (NEGATIVE) Urine Urobilinogen 0.2 (0.2) E.U./dL Ur Leukocyte Esterase 2+ H (NEGATIVE) Urine RBC 0-1/hpf (0-5/HPF) Urine WBC 1-5/hpf (0-5/HPF) Ur Squamous Epith Cells 5-10 /hpf H (0-5/HPF) Urine Bacteria Moderate (10-30) H (None) Hyaline Casts 0-1/lpf (None) Urine Yeast 5-10/hpf H (None) Ur Culture Indicated? Cult not indicated U Opiates 300ng/mL cut (Negative) Ur Oxycodone Screen (Negative) Urine Methadone Screen (Negative) Ur Barbiturates Screen (Negative) U Tricyclic Antidepress (Negative) Ur Phencyclidine Scrn (Negative) Ur Amphetamines Screen (Negative) U Methamphetamines Scrn (Negative) Ur MDMA Scrn (Ecstasy) (Negative) U Benzodiazepines Scrn (Negative) Urine Cocaine Screen (Negative) U Marijuana (THC) Screen (Negative) Ethyl Alcohol ( - 10) mg/dL Ketones 0.10 (<0.27) mmol/L SARS-CoV-2 (PCR) (Negative) 12/13/20 12/13/20 Range/Units 22:36 23:35 WBC (4.5-11.0) X10^3/uL RBC (4.0-5.2) X10^6/uL Hgb (12.0-16.0) g/dL Hct (36-46) % MCV (80-100) fL MCH (26-34) PG MCHC (30-36) % RDW (11.6-14.8) % Plt Count (150-400) X10^3/uL Neut % (Auto) (50-75) % Lymph % (Auto) (25-40) % Warrick % (Auto) (3-14) % Eos % (Auto) (2-4) % Baso % (Auto) (0-2) % Neut # (Auto) (8943-2553) /uL Lymph # (Auto) (1277-6843) /uL Warrick # (Auto) (0-900) /uL Eos # (Auto) (0-450) /uL Baso # (Auto) (0-100) /uL Sodium (137-145) mmol/L Potassium (3.4-5.1) mmol/L Chloride (98-107) mmol/L Carbon Dioxide (22-32) mmol/L BUN (7-17) mg/dL Creatinine (0.52-1.04) mg/dL Estimated GFR (>60) mL/min BUN/Creatinine Ratio (6-22) Glucose (80-110) mg/dL Hemoglobin A1c (4.0-6.0) % Lactate (0.7-2.1) mmol/L Calcium (8.4-10.2) mg/dL Magnesium (1.6-2.3) mg/dL Total Bilirubin (0.2-1.3) mg/dL AST (14-36) IU/L ALT (<35) IU/L Alkaline Phosphatase (38-126) U/L Total Creatine Kinase (30-135) U/L CK-MB (CK-2) CK-MB (CK-2) Rel Index Troponin I (0.01-0.034) ng/mL Total Protein (6.3-8.2) g/dL Albumin (3.5-5.0) g/dL Globulin (1.7-4.1) g/dL Albumin/Globulin Ratio (1.0-2.8) Procalcitonin (<0.5) ng/mL TSH (0.47-4.68) uIU/mL Prolactin (3.0-18.6) ng/mL Urine Color Urine Appearance Urine pH (4.5-8.0) Ur Specific Reader (1.000-1.035) Urine Protein (Negative) Urine Glucose (UA) (Negative) g/dL Urine Ketones (NEGATIVE) Urine Occult Blood (Negative) Urine Nitrate (Negative) Urine Bilirubin (NEGATIVE) Urine Urobilinogen (0.2) E.U./dL Ur Leukocyte Esterase (NEGATIVE) Urine RBC (0-5/HPF) Urine WBC (0-5/HPF) Ur Squamous Epith Cells (0-5/HPF) Urine Bacteria (None) Hyaline Casts (None) Urine Yeast (None) Ur Culture Indicated? U Opiates 300ng/mL cut Negative (Negative) Ur Oxycodone Screen Negative (Negative) Urine Methadone Screen Negative (Negative) Ur Barbiturates Screen Negative (Negative) U Tricyclic Antidepress Negative (Negative) Ur Phencyclidine Scrn Negative (Negative) Ur Amphetamines Screen Negative (Negative) U Methamphetamines Scrn Negative (Negative) Ur MDMA Scrn (Ecstasy) Negative (Negative) U Benzodiazepines Scrn Negative (Negative) Urine Cocaine Screen Negative (Negative) U Marijuana (THC) Screen Negative (Negative) Ethyl Alcohol ( - 10) mg/dL Ketones (<0.27) mmol/L SARS-CoV-2 (PCR) Negative (Negative) Point of Care Testing Glucose POC [address] scan - head: Radiologist's Impression: [address] [id number] Scan ReportSigned Patient: Kristine Moon RMR#: [id number]: 6Acct:[id number]/Sex: 65 / FDate of Service: 12/13/20Loc: EDAccession Number: [id number] Procedure: CT head/brain wo con Ordering Provider: Corey Leon MD PROCEDURE: CT HEAD/BRAIN WO CON INDICATIONS: Altered mental status TECHNIQUE: Noncontrast 4.5 mm thick angled axial sections acquired from the foramen magnum to the vertex, with coronal and sagittal reformats. For radiation dose reduction, the following was used: automated exposure control, adjustment of mA and/or kV according to patient size. COMPARISON: [facility], CT, CT HEAD/BRAIN WO CON, 07/10/2020, 0:06. FINDINGS: Image quality: Excellent. CSF spaces: Basal cisterns are patent. No extra-axial fluid collections. The ventricles are symmetric in size and shape. Brain: No intracranial bleeds or masses. Old lacunar infarct is again seen in right basal ganglia and right thalamus. There is cerebral volume loss for age, with resultant ventricular and sulcal prominence. There are periventricular and deep white matter chronic small vessel ischemic changes. There is intracranial internal carotid artery atherosclerosis. Skull and face: Calvarium and visualized facial bones appear intact, without suspicious lesions. Sinuses: Visualized sinuses and mastoids are clear. IMPRESSION: No CT evidence of acute intracranial pathology. No significant changes from previous study. Dictated by: Antwon Redd M.D. on 12/13/2020 at 19:17 Approved by: Antwon Redd M.D. on 12/13/2020 at 19:18 ECG Data Interpretation: Normal sinus rhythm rate [address] elevation or depression. MDM Narrative Medical decision making narrative: Appropriate for admission as likely early onset of UTI which may worsen to symptoms as she was admitted earlier this month. Will need IV antibiotics Discharge Plan Departure Patient Disposition: Admitted as Observation Clinical Impression: Poorly controlled diabetes mellitus, Acute UTI Admit Date/Time: 12/13/20 23:36 Admit Provider: Marnie Douglas
[2020-12-13 22:41] LABS: Appearance Urine UA CLEAR; Bilirubin Urine UA NEGATIVE (NEGATIVE); Color Urine UA YELLOW; Glucose Urine UA 2+ g/dL (Negative); Ketones Urine UA NEGATIVE (NEGATIVE); Leukocyte Esterase Urine UA 2+ (NEGATIVE); Nitrite Urine UA NEGATIVE (Negative); Occult Blood Urine UA 1+ (Negative); Protein Urine UA 3+ (Negative); Specific Gravity Urine UA 1.015 (1.000-1.035); Urobilinogen Urine UA 0.2 E.U./dL (0.2)
[2020-12-13 22:45] LABS: UR Morphine/Opiate cutoff 300 Negative (Negative); Ur Creatinine Normal (Normal); Ur Specific Gravity Normal (Normal); Urine Amphetamines Negative (Negative); Urine Barbiturates Negative (Negative); Urine Benzodiazepines Negative (Negative); Urine Cocaine Negative (Negative); Urine MDMA Negative (Negative); Urine Methadone Negative (Negative); Urine Methamphetamines Negative (Negative); Urine Phencyclidine Negative (Negative); Urine Tetrahydrocannabinol Negative (Negative); Urine pH Normal (Normal)
[2020-12-13 22:46] LABS: Urine Oxycodone Negative (Negative); Urine Tricyclic Antidepressant Negative (Negative)
[2020-12-13 22:48] LABS: RBC Urine 0-1/HPF (0-5/HPF); Squamous Epithelial Cell Urine 5-10 /HPF (0-5/HPF); WBC Urine 1-5/HPF (0-5/HPF); pH Urine UA 5.5 (4.5-8.0)
[2020-12-13 22:49] LABS: Bacteria Urine Moderate (10-30); Culture Indicated Urine Cult Not Indicated; Hyaline Casts Urine 0-1/LPF
[2020-12-13] MEDS: cefTRIAXone 2,000 MG in SODIUM CHLORIDE 0.9% 100 ML 200 ML IV (23:24)
[2020-12-14] VITALS (28 sets, daily range): BP systolic 143–196; BP diastolic 72–88; PULSE 59–71; RESP 13–19; TEMP 36–36.8; O2SAT 94–100; BMI 23.3
--- NOTE | 2020-12-14 00:05 | PM.HP.1 ---
History of Present Illness History of Present Illness Date Patient Seen: 12/14/20 Time Patient Seen: 00:05 Chief complaint: tired, weak legs Narrative: Patient is a 65-year-old female Kristine Moon who presented to the ED with altered mental status generalized malaise weakness. Patient and state feels the same when she had UTI earlier this month. Was hospitalized in [facility] on November 23 for 5 days for UTI. Improved on traveling by car back home. Has been home and doing well until today she had appointment with a provider and on the way back from the office states she fell sleep, which was unusual for her. An all day long very tired and not herself. No nausea vomiting. Patient is awake alert oriented to self, date of , and where she is at, however month and year are incorrect. Has clear speech no facial droop. Denies any pain, no headache no chest pain abdominal pain or back pain. No numbness tingling or weakness. Patient is baseline incontinent of urine. Denies any alcohol or drug abuse. No cough cold congestion fever chills. Patient has a history of dementia, cardiovascular disease, gallbladder disease, hypertention, Hyperlipidemia, insulin dependent type 2 diabetes, GERD, Cirrhosis, Barrettes esophagus with Upper GI bleed x2, NSTEMI, and CVA. Patient has a recent admit from 08/2020 of DKA, septic shock with profound hypotension, MARY, NSTEMI and further developed acute upper GI bleed. Patient's vitals upon admit today patient is hypertensive with a BP 180/91, HR 74, R 18, O2 saturation 96% on room air. Patient's HGB 9.4, HCT 29.6, MCV normal at 80.4 and platelets 277. Patient's creatinine in on 10/03/2020 was 1.23, elevated today at 1.64. Patient's GFR on 10/03/2020 44, today GFR is decreased at 31.5, patient's glucose 324, albumin 3. No DKA, and gap 7, sofa score: 1, patient's lactate, prolactin are within normal limits. Urine had +3 protein, negative ketone, negative nitrates, positive leuko Estrace, moderate bacteria 10-30. Neither blood cultures or urine culture ordered in ED prior to Rocephin 2 g given. Patient History Medical History Dow's esophagus with esophagitis CVA (cerebral vascular accident) Dementia Diabetes Gallbladder disease GERD (gastroesophageal reflux disease) Hyperlipidemia Hypertension Overactive bladder Subdural hematoma Upper GI bleed Surgical History History of cholecystectomy Tubal ligation status Family & Social History Family History Mother Heart disease Father No problems noted. Social History: household members spouse Safety & Behavioral: Feels Safe in Current Yes Environment Tobacco & Substance use: Tobacco type cigarettes,cannabis/marijuana Smoking Status Former smoker alcohol intake former alcohol intake frequency holiday/special occasion Substance Use Type marijuana Meds Home Medications and Allergies Home Medications Medication Instructions Recorded Confirmed Type atorvastatin 40 mg tablet 40 mg PO QPM 10/08/17 08/17/20 History cholecalciferol (vitamin D3) 25 3,000 unit PO DAILY 10/08/17 08/17/20 History mcg (1,000 unit) capsule (Vitamin D3) insulin aspart U-100 100 unit/mL 1 dose SUBCUT QIDACHS 10/08/17 08/17/20 History (3 mL) subcutaneous pen (Novolog Flexpen U-100 Insulin aspart) cyanocobalamin (vitamin B-12) 1,000 mcg PO DAILY 08/02/19 08/17/20 History 1,000 mcg tablet hydralazine 10 mg tablet 20 mg PO BID 08/02/19 08/17/20 History sucralfate 1 gram tablet 1 g PO QID 08/02/19 08/17/20 History tizanidine 2 mg tablet 2 mg PO Q8H PRN 08/02/19 08/17/20 History insulin glargine 100 unit/mL 11 unit SUBCUT DAILY 12/26/19 08/17/20 History subcutaneous solution (Lantus U-100 Insulin) ondansetron 4 mg disintegrating 8 mg PO Q6H PRN 12/26/19 08/17/20 History tablet pantoprazole 40 mg tablet,delayed 40 mg PO BID 12/26/19 08/17/20 History release propranolol 20 mg tablet 20 mg PO DAILY 12/26/19 08/17/20 History spironolactone 25 mg tablet 25 mg PO DAILY 12/26/19 08/17/20 History tramadol 50 mg tablet 50 mg PO BID PRN 12/26/19 08/17/20 History aspirin 81 mg tablet,delayed 81 mg PO BID #30 tab 12/29/19 08/17/20 Rx release docusate sodium 100 mg capsule 100 mg PO BID #14 cap 12/29/19 08/17/20 Rx (DOK) oxycodone 5 mg tablet 5 mg PO Q3HR PRN #15 tab 12/29/19 08/17/20 Rx Allergies Allergy/AdvReac Type Severity Reaction Status Date / Time Iodine and Iodide Containing Allergy Unknown Verified 12/13/20 18:54 Produc [IODINE AND IODIDE CONTAINING PRODUC] latex [LATEX] Allergy Unknown Verified 12/13/20 18:54 Exam Vital Signs (past 8 hours): - 12/13/20 18:54 12/13/20 19:47 12/13/20 20:05 Temperature 98.7 F Pulse Rate 74 66 70 Respiratory Rate 20 18 Blood Pressure 150/70 H Pulse Oximetry 99 96 96 12/13/20 20:30 12/13/20 21:00 12/13/20 21:30 Temperature Pulse Rate 69 67 75 Respiratory Rate 14 17 18 Blood Pressure 186/80 H 144/86 H 164/81 H Pulse Oximetry 99 96 92 12/13/20 22:00 12/13/20 23:00 12/13/20 23:02 Temperature Pulse Rate 74 72 65 Respiratory Rate 18 16 Blood Pressure 180/91 H 155/77 H Pulse Oximetry 96 12/13/20 23:30 12/13/20 23:49 Temperature Pulse Rate 63 Respiratory Rate 16 Blood Pressure 158/77 H Pulse Oximetry 87 L 95 Oxygen Delivery Method Nasal Cannula Oxygen Flow Rate 1 Objective Labs Result Diagrams: 12/13/20 19:00 12/13/20 19:00 Labs: Laboratory Results - last 24 hr 12/13/20 12/13/20 12/13/20 19:00 19:00 19:00 WBC 5.8 RBC 3.67 L Hgb 9.4 L Hct 29.6 L MCV 80.4 MCH 25.5 L MCHC 31.7 RDW 14.6 Plt Count 277 Neut % (Auto) 60.5 Lymph % (Auto) 26.6 [place] % (Auto) 10.5 Eos % (Auto) 1.8 L Baso % (Auto) 0.6 Neut # (Auto) 3500 Lymph # (Auto) 1500 [place] # (Auto) 600 Eos # (Auto) 100 Baso # (Auto) 0 Sodium 136 L Potassium 4.5 Chloride 108 H Carbon Dioxide 24 BUN 17 Creatinine 1.64 H Estimated GFR 31.5 L BUN/Creatinine Ratio 10.4 Glucose 324 H Lactate 0.8 Calcium 8.8 Total Bilirubin 0.4 AST 20 ALT 12 Alkaline Phosphatase 89 Total Creatine Kinase 56 CK-MB (CK-2) TNP CK-MB (CK-2) Rel Index TNP Troponin I < 0.012 Total Protein 6.2 L Albumin 3.0 L Globulin 3.2 Albumin/Globulin Ratio 0.9 L TSH Prolactin 15.0 Urine Color Urine Appearance Urine pH Ur Specific [place] Urine Protein Urine Glucose (UA) Urine Ketones Urine Occult Blood Urine Nitrate Urine Bilirubin Urine Urobilinogen Ur Leukocyte Esterase Urine RBC Urine WBC Ur Squamous Epith Cells Urine Bacteria Hyaline Casts Urine Yeast Ur Culture Indicated? U Opiates 300ng/mL cut Ur Oxycodone Screen Urine Methadone Screen Ur Barbiturates Screen U Tricyclic Antidepress Ur Phencyclidine Scrn Ur Amphetamines Screen U Methamphetamines Scrn Ur MDMA Scrn (Ecstasy) U Benzodiazepines Scrn Urine Cocaine Screen U Marijuana (THC) Screen Ethyl Alcohol < 10 12/13/20 12/13/20 12/13/20 19:00 22:36 22:36 WBC RBC Hgb Hct MCV MCH MCHC RDW Plt Count Neut % (Auto) Lymph % (Auto) [place] % (Auto) Eos % (Auto) Baso % (Auto) Neut # (Auto) Lymph # (Auto) [place] # (Auto) Eos # (Auto) Baso # (Auto) Sodium Potassium Chloride Carbon Dioxide BUN Creatinine Estimated GFR BUN/Creatinine Ratio Glucose Lactate Calcium Total Bilirubin AST ALT Alkaline Phosphatase Total Creatine Kinase CK-MB (CK-2) CK-MB (CK-2) Rel Index Troponin I Total Protein Albumin Globulin Albumin/Globulin Ratio TSH 1.69 Prolactin Urine Color Yellow Urine Appearance Clear Urine pH 5.5 Ur Specific [place] 1.015 Urine Protein 3+ H Urine Glucose (UA) 2+ H Urine Ketones Negative Urine Occult Blood 1+ H Urine Nitrate Negative Urine Bilirubin Negative Urine Urobilinogen 0.2 Ur Leukocyte Esterase 2+ H Urine RBC 0-1/hpf Urine WBC 1-5/hpf Ur Squamous Epith Cells 5-10 /hpf H Urine Bacteria Moderate (10-30) H Hyaline Casts 0-1/lpf Urine Yeast 5-10/hpf H Ur Culture Indicated? Cult not indicated U Opiates 300ng/mL cut Negative Ur Oxycodone Screen Negative Urine Methadone Screen Negative Ur Barbiturates Screen Negative U Tricyclic Antidepress Negative Ur Phencyclidine Scrn Negative Ur Amphetamines Screen Negative U Methamphetamines Scrn Negative Ur MDMA Scrn (Ecstasy) Negative U Benzodiazepines Scrn Negative Urine Cocaine Screen Negative U Marijuana (THC) Screen Negative Ethyl Alcohol
[2020-12-14 00:39] LABS: COVID19 - ADMIT (NP swab/PCR) Negative (Negative)
[2020-12-14 00:48] LABS: Magnesium 1.7 mg/dL (1.6-2.3)
[2020-12-14 01:07] LABS: Procalcitonin 0.12 ng/mL (<0.5)
[2020-12-14] MEDS: INSULIN GLARGINE 100 UNIT/ML 3ML PEN 20 UNIT SUBCUT (01:14)
[2020-12-14] MEDS: SODIUM CHLORIDE 0.9% 1,000 ML 1000 ML IV (01:14)
[2020-12-14 02:01] LABS: Hemoglobin A1C% w Est Avg Glu 10.9 % (4.0-6.0)
[2020-12-14] MEDS: HYDRALAZINE 20 MG/ML VIAL 10 MG IV (04:08)
[2020-12-14 07:05] LABS: Add Manual Diff / Slide Review NO; Basophils Absolute Auto 100 /uL (0-100); Basophils Percent Auto 1.1 % (0-2); Eosinophils Absolute Auto 100 /uL (0-450); Hematocrit 29.8 % (36-46); Hemoglobin 9.6 g/dL (12.0-16.0); Lymphocytes Absolute Auto 1500 /uL (1100-4500); Lymphocytes Percent Auto 25.8 % (25-40); Mean Corpuscular HGB Conc 32.1 % (30-36); Mean Corpuscular Hemoglobin 25.8 PG (26-34); Mean Corpuscular Volume 80.3 fL (80-100); Monocytes Absolute Auto 700 /uL (0-900); Monocytes Percent Auto 11.6 % (3-14); Neutrophils Absolute Auto 3500 /uL (1500-7000); Neutrophils Percent Auto 59.5 % (50-75); Platelet Count 277 X10^3/uL (150-400); Red Cell Distribution Width 14.8 % (11.6-14.8); White Blood Cell Count 5.9 X10^3/uL (4.5-11.0)
[2020-12-14 07:27] LABS: Alanine Aminotransferase 12 IU/L (<35); Albumin 2.7 g/dL (3.5-5.0); Albumin Globulin Ratio 0.8 (1.0-2.8); Alkaline Phosphatase 69 U/L (38-126); Aspartate Aminotransferase 22 IU/L (14-36); BUN Creatinine Ratio 13.1 (6-22); Bilirubin Total 0.2 mg/dL (0.2-1.3); Blood Urea Nitrogen 18 mg/dL (7-17); Calcium 8.6 mg/dL (8.4-10.2); Carbon Dioxide 24 mmol/L (22-32); Chloride 114 mmol/L (98-107); Estimated Glomerular Filt Rate 38.8 mL/min (>60); Globulin 3.3 g/dL (1.7-4.1); Glucose 74 mg/dL (80-110); HEMOLYSIS 20 (0-50); Magnesium 1.7 mg/dL (1.6-2.3); Potassium 3.6 mmol/L (3.4-5.1); Sodium 141 mmol/L (137-145)
[2020-12-14] MEDS: DEXTROSE 50 % IN WATER 25 GM/50 ML SYRINGE IV (08:21)
[2020-12-14] MEDS: SODIUM CHLORIDE 0.9% 1,000 ML 125 ML IV (09:55)
[2020-12-14] MEDS: PANTOPRAZOLE 40 MG VIAL 20 MG IV (09:56)
--- NOTE | 2020-12-14 10:27 | PM.HP.1 ---
History of Present Illness History of Present Illness Date Patient Seen: 12/14/20 Time Patient Seen: 10:29 Chief complaint: tired, weak legs Narrative: Kristine Moon is a 64-year-old female is a poor historian with a past medical history significant for hypertension, hyperlipidemia, prior CVA with prior residual left-sided weakness (now seemingly improved) and subdural hematoma (04/2019) with dementia (SLUMS testing 03/18 last year), diabetes mellitus type 2, insulin using, former alcohol dependence reportedly in remission with history of chronic calcific pancreatitis, peptic ulcer disease with prior GI bleed, probable alcoholic cirrhosis with recent admit and transfer for esophageal bleeding, GERD, Dow's esophagitis, and cholecystectomy complicated by biliary ductal injury with prior stenting and pneumobilia, and overactive bladder and apparent recent admission for UTI in [place] who presented to the ER with fatigue and weakness and possible confusion per ER report. Patient is unaware as to why she is in the hospital. Patient's spouse not available for review at the moment. She denies current chest pain, shortness of breath, nausea, vomiting, abdominal pain, LE edema, orthopnea. Denies dysuria or urinary frequency. Despite her baseline dementia prior documentation from 4 months ago show the patient as alert and oriented x3 when she was admitted for GI bleeding. In the emergency room, initially she was hypertensive, with the remainder of her vital signs being unremarkable. Her UA was positive for infection. She was planned to be admitted for possible encephalopathy due to acute cystitis. She also had a mild bump in her creatinine due to probable dehydration from her UTI. Her home medications were ordered as best as able overnight, in the ER she became hypoglycemic in the ER to 30, improved with treatment. She had been given 20 units of lantus yesterday evening, which appears to be more than her usual home dose. Patient does admit now that her sugars are quite variable at home. Patient History Medical History Dow's esophagus with esophagitis CVA (cerebral vascular accident) Dementia Diabetes Gallbladder disease GERD (gastroesophageal reflux disease) Hyperlipidemia Hypertension Overactive bladder Subdural hematoma Upper GI bleed Surgical History History of cholecystectomy Tubal ligation status Comment: review of history limited to chart review, patient's history is unreliable due to possible delirium and / or dementia. Family & Social History Family History Mother Heart disease Father No problems noted. Social History: household members spouse Safety & Behavioral: Feels Safe in Current Yes Environment Tobacco & Substance use: Tobacco type cigarettes,cannabis/marijuana Smoking Status Former smoker alcohol intake former alcohol intake frequency holiday/special occasion Substance Use Type marijuana Meds Home Medications and Allergies Home Medications Medication Instructions Recorded Confirmed Type cholecalciferol (vitamin D3) 25 1,000 unit PO BID 10/08/17 12/14/20 History mcg (1,000 unit) capsule (Vitamin D3) insulin aspart U-100 100 unit/mL 1 dose SUBCUT QIDACHS 10/08/17 12/14/20 History (3 mL) subcutaneous pen (Novolog Flexpen U-100 Insulin aspart) cyanocobalamin (vitamin B-12) 1,000 mcg PO DAILY 08/02/19 12/14/20 History 1,000 mcg tablet sucralfate 1 gram tablet 1 g PO QID 08/02/19 12/14/20 History insulin glargine 100 unit/mL 12 unit SUBCUT BID 12/26/19 12/14/20 History subcutaneous solution (Lantus U-100 Insulin) pantoprazole 40 mg tablet,delayed 20 mg PO BID 12/26/19 12/14/20 History release amlodipine 10 mg tablet 10 mg PO DAILY 12/14/20 12/14/20 History lisinopril 20 mg tablet 20 mg PO DAILY 12/14/20 12/14/20 History metoclopramide HCl 5 mg tablet 5 mg PO QAC 12/14/20 12/14/20 History (Reglan) oxybutynin chloride 5 mg tablet 5 mg PO DAILY 12/14/20 12/14/20 History Allergies Allergy/AdvReac Type Severity Reaction Status Date / Time Iodine and Iodide Containing Allergy Unknown Verified 12/13/20 18:54 Produc [IODINE AND IODIDE CONTAINING PRODUC] latex [LATEX] Allergy Unknown Verified 12/13/20 18:54 Review of Systems Review of Systems Narrative: All other systems reviewed with the patient and are negative unless otherwise stated. However, this is limited due the patient's underlying baseline dementia Exam Vital Signs (past 8 hours): - 12/14/20 02:30 12/14/20 03:00 12/14/20 03:30 Temperature Pulse Rate 68 64 68 Respiratory Rate 17 16 16 Blood Pressure 150/83 H 168/77 H 152/86 H Blood Pressure [Right Arm] Pulse Oximetry 98 98 12/14/20 04:00 12/14/20 04:08 12/14/20 04:30 Temperature Pulse Rate 63 59 L 70 Respiratory Rate 15 15 Blood Pressure 193/83 H 193/83 H 159/75 H Blood Pressure [Right Arm] Pulse Oximetry 100 98 12/14/20 05:00 12/14/20 05:10 12/14/20 05:19 Temperature Pulse Rate 68 63 64 Respiratory Rate 15 14 Blood Pressure 151/85 H 151/85 H Blood Pressure [Right Arm] Pulse Oximetry 98 99 12/14/20 05:30 12/14/20 06:00 12/14/20 06:30 Temperature Pulse Rate 67 63 62 Respiratory Rate 15 14 13 Blood Pressure 148/82 H 145/73 H 158/72 H Blood Pressure [Right Arm] Pulse Oximetry 99 99 98 12/14/20 07:00 12/14/20 07:30 12/14/20 07:35 Temperature Pulse Rate 63 61 63 Respiratory Rate 16 13 13 Blood Pressure 152/74 H 158/75 H Blood Pressure [Right Arm] Pulse Oximetry 99 100 100 12/14/20 07:46 12/14/20 09:04 12/14/20 10:01 Temperature 97.4 F L Pulse Rate 67 69 Respiratory Rate 17 16 Blood Pressure 146/78 H Blood Pressure [Right Arm] 158/75 H Pulse Oximetry 99 100 95 Oxygen Delivery Method Room Air Oxygen Flow Rate 0 Narrative Exam Narrative: Gen: Alert, oriented, well-developed 64 y.o. female, appears older than stated age HEENT: normocephalic, atraumatic, conjunctiva clear, sclera non-icteric, oral mucosa pink and moist Neck: supple, full ROM, no JVD Resp: Lungs CTA, non-labored breathing CV: RRR, no murmur or rubs Abd: soft, non-tender, normoactive BTs Skin: no lesions or rashes, dry and intact Neuro: alert, oriented to name and hospital, incorrect date and stated [place] as location. No focal deficits, strength +5/5 bilateral upper and lower extremities. Extremities: moves all 4 extremities, no tenderness Psyche: normal mood and affect. Objective Labs Result Diagrams: 12/14/20 06:55 12/14/20 06:55 Labs: Laboratory Results - last 24 hr 12/13/20 12/13/20 12/13/20 19:00 19:00 19:00 WBC 5.8 RBC 3.67 L Hgb 9.4 L Hct 29.6 L MCV 80.4 MCH 25.5 L MCHC 31.7 RDW 14.6 Plt Count 277 Neut % (Auto) 60.5 Lymph % (Auto) 26.6 [place] % (Auto) 10.5 Eos % (Auto) 1.8 L Baso % (Auto) 0.6 Neut # (Auto) 3500 Lymph # (Auto) 1500 [place] # (Auto) 600 Eos # (Auto) 100 Baso # (Auto) 0 Sodium 136 L Potassium 4.5 Chloride 108 H Carbon Dioxide 24 BUN 17 Creatinine 1.64 H Estimated GFR 31.5 L BUN/Creatinine Ratio 10.4 Glucose 324 H Hemoglobin A1c Lactate 0.8 Calcium 8.8 Magnesium Total Bilirubin 0.4 AST 20 ALT 12 Alkaline Phosphatase 89 Total Creatine Kinase 56 CK-MB (CK-2) TNP CK-MB (CK-2) Rel Index TNP Troponin I < 0.012 Total Protein 6.2 L Albumin 3.0 L Globulin 3.2 Albumin/Globulin Ratio 0.9 L Procalcitonin TSH Prolactin 15.0 Urine Color Urine Appearance Urine pH Ur Specific [place] Urine Protein Urine Glucose (UA) Urine Ketones Urine Occult Blood Urine Nitrate Urine Bilirubin Urine Urobilinogen Ur Leukocyte Esterase Urine RBC Urine WBC Ur Squamous Epith Cells Urine Bacteria Hyaline Casts Urine Yeast Ur Culture Indicated? U Opiates 300ng/mL cut Ur Oxycodone Screen Urine Methadone Screen Ur Barbiturates Screen U Tricyclic Antidepress Ur Phencyclidine Scrn Ur Amphetamines Screen U Methamphetamines Scrn Ur MDMA Scrn (Ecstasy) U Benzodiazepines Scrn Urine Cocaine Screen U Marijuana (THC) Screen Ethyl Alcohol < 10 Ketones SARS-CoV-2 (PCR) 12/13/20 12/13/20 12/13/20 19:00 19:00 19:00 WBC RBC Hgb Hct MCV MCH MCHC RDW Plt Count Neut % (Auto) Lymph % (Auto) [place] % (Auto) Eos % (Auto) Baso % (Auto) Neut # (Auto) Lymph # (Auto) [place] # (Auto) Eos # (Auto) Baso # (Auto) Sodium Potassium Chloride Carbon Dioxide BUN Creatinine Estimated GFR BUN/Creatinine Ratio Glucose Hemoglobin A1c 10.9 H Lactate Calcium Magnesium 1.7 Total Bilirubin AST ALT Alkaline Phosphatase Total Creatine Kinase CK-MB (CK-2) CK-MB (CK-2) Rel Index Troponin I Total Protein Albumin Globulin Albumin/Globulin Ratio Procalcitonin TSH 1.69 Prolactin Urine Color Urine Appearance Urine pH Ur Specific [place] Urine Protein Urine Glucose (UA) Urine Ketones Urine Occult Blood Urine Nitrate Urine Bilirubin Urine Urobilinogen Ur Leukocyte Esterase Urine RBC Urine WBC Ur Squamous Epith Cells Urine Bacteria Hyaline Casts Urine Yeast Ur Culture Indicated? U Opiates 300ng/mL cut Ur Oxycodone Screen Urine Methadone Screen Ur Barbiturates Screen U Tricyclic Antidepress Ur Phencyclidine Scrn Ur Amphetamines Screen U Methamphetamines Scrn Ur MDMA Scrn (Ecstasy) U Benzodiazepines Scrn Urine Cocaine Screen U Marijuana (THC) Screen Ethyl Alcohol Ketones SARS-CoV-2 (PCR) 12/13/20 12/13/20 12/13/20 19:00 19:00 22:36 WBC RBC Hgb Hct MCV MCH MCHC RDW Plt Count Neut % (Auto) Lymph % (Auto) [place] % (Auto) Eos % (Auto) Baso % (Auto) Neut # (Auto) Lymph # (Auto) [place] # (Auto) Eos # (Auto) Baso # (Auto) Sodium Potassium Chloride Carbon Dioxide BUN Creatinine Estimated GFR BUN/Creatinine Ratio Glucose Hemoglobin A1c Lactate Calcium Magnesium Total Bilirubin AST ALT Alkaline Phosphatase Total Creatine Kinase CK-MB (CK-2) CK-MB (CK-2) Rel Index Troponin I Total Protein Albumin Globulin Albumin/Globulin Ratio Procalcitonin 0.12 TSH Prolactin Urine Color Yellow Urine Appearance Clear Urine pH 5.5 Ur Specific [place] 1.015 Urine Protein 3+ H Urine Glucose (UA) 2+ H Urine Ketones Negative Urine Occult Blood 1+ H Urine Nitrate Negative Urine Bilirubin Negative Urine Urobilinogen 0.2 Ur Leukocyte Esterase 2+ H Urine RBC 0-1/hpf Urine WBC 1-5/hpf Ur Squamous Epith Cells 5-10 /hpf H Urine Bacteria Moderate (10-30) H Hyaline Casts 0-1/lpf Urine Yeast 5-10/hpf H Ur Culture Indicated? Cult not indicated U Opiates 300ng/mL cut Ur Oxycodone Screen Urine Methadone Screen Ur Barbiturates Screen U Tricyclic Antidepress Ur Phencyclidine Scrn Ur Amphetamines Screen U Methamphetamines Scrn Ur MDMA Scrn (Ecstasy) U Benzodiazepines Scrn Urine Cocaine Screen U Marijuana (THC) Screen Ethyl Alcohol Ketones 0.10 SARS-CoV-2 (PCR) 12/13/20 12/13/20 12/14/20 22:36 23:35 06:55 WBC 5.9 RBC 3.70 L Hgb 9.6 L Hct 29.8 L MCV 80.3 MCH 25.8 L MCHC 32.1 RDW 14.8 Plt Count 277 Neut % (Auto) 59.5 Lymph % (Auto) 25.8 [place] % (Auto) 11.6 Eos % (Auto) 2.0 Baso % (Auto) 1.1 Neut # (Auto) 3500 Lymph # (Auto) 1500 [place] # (Auto) 700 Eos # (Auto) 100 Baso # (Auto) 100 Sodium Potassium Chloride Carbon Dioxide BUN Creatinine Estimated GFR BUN/Creatinine Ratio Glucose Hemoglobin A1c Lactate Calcium Magnesium Total Bilirubin AST ALT Alkaline Phosphatase Total Creatine Kinase CK-MB (CK-2) CK-MB (CK-2) Rel Index Troponin I Total Protein Albumin Globulin Albumin/Globulin Ratio Procalcitonin TSH Prolactin Urine Color Urine Appearance Urine pH Ur Specific [place] Urine Protein Urine Glucose (UA) Urine Ketones Urine Occult Blood Urine Nitrate Urine Bilirubin Urine Urobilinogen Ur Leukocyte Esterase Urine RBC Urine WBC Ur Squamous Epith Cells Urine Bacteria Hyaline Casts Urine Yeast Ur Culture Indicated? U Opiates 300ng/mL cut Negative Ur Oxycodone Screen Negative Urine Methadone Screen Negative Ur Barbiturates Screen Negative U Tricyclic Antidepress Negative Ur Phencyclidine Scrn Negative Ur Amphetamines Screen Negative U Methamphetamines Scrn Negative Ur MDMA Scrn (Ecstasy) Negative U Benzodiazepines Scrn Negative Urine Cocaine Screen Negative U Marijuana (THC) Screen Negative Ethyl Alcohol Ketones SARS-CoV-2 (PCR) Negative 12/14/20 06:55 WBC RBC Hgb Hct MCV MCH MCHC RDW Plt Count Neut % (Auto) Lymph % (Auto) [place] % (Auto) Eos % (Auto) Baso % (Auto) Neut # (Auto) Lymph # (Auto) [place] # (Auto) Eos # (Auto) Baso # (Auto) Sodium 141 Potassium 3.6 Chloride 114 H Carbon Dioxide 24 BUN 18 H Creatinine 1.37 H Estimated GFR 38.8 L BUN/Creatinine Ratio 13.1 Glucose 74 L D Hemoglobin A1c Lactate Calcium 8.6 Magnesium 1.7 Total Bilirubin 0.2 AST 22 ALT 12 Alkaline Phosphatase 69 Total Creatine Kinase CK-MB (CK-2) CK-MB (CK-2) Rel Index Troponin I Total Protein 6.0 L Albumin 2.7 L Globulin 3.3 Albumin/Globulin Ratio 0.8 L Procalcitonin TSH Prolactin Urine Color Urine Appearance Urine pH Ur Specific [place] Urine Protein Urine Glucose (UA) Urine Ketones Urine Occult Blood Urine Nitrate Urine Bilirubin Urine Urobilinogen Ur Leukocyte Esterase Urine RBC Urine WBC Ur Squamous Epith Cells Urine Bacteria Hyaline Casts Urine Yeast Ur Culture Indicated? U Opiates 300ng/mL cut Ur Oxycodone Screen Urine Methadone Screen Ur Barbiturates Screen U Tricyclic Antidepress Ur Phencyclidine Scrn Ur Amphetamines Screen U Methamphetamines Scrn Ur MDMA Scrn (Ecstasy) U Benzodiazepines Scrn Urine Cocaine Screen U Marijuana (THC) Screen Ethyl Alcohol Ketones SARS-CoV-2 (PCR) Assessment & Plan Assessment & Plan narrative: Kristine Moon is a 64-year-old female is a poor historian with a past medical history significant for hypertension, hyperlipidemia, prior CVA with prior residual left-sided weakness (now seemingly improved) and subdural hematoma (04/2019) with dementia (SLUMS testing 03/18 last year), diabetes mellitus type 2, insulin using, former alcohol dependence reportedly in remission with history of chronic calcific pancreatitis, peptic ulcer disease with prior GI bleed, possible cirrhosis with recent admit and transfer for esophageal bleeding, GERD, Dow's esophagitis, and cholecystectomy complicated by biliary ductal injury with prior stenting and pneumobilia, and overactive bladder and apparent recent admission for UTI in [place] who presented to the ER with fatigue and weakness and possible confusion per ER report. She is more confused than her previously documented baseline from 3 months ago. 1. Likely metabolic encephalopathy, acute, present on admission, in the setting of chronic (probable vascular) dementia. - previous documentation has the patient as alert and oriented. Currently only oriented to name. Unable to confirm with patient's partner today about her current mental status today. She has baseline dementia with SLUMS of 03/18 in 2019. - possibilities include hyper or hypoglycemic episodes leading to confusion, or from cystitis, amongst other metabolic issues. - continue IV antibiotics for treatment of acute cystitis. follow up cultures. - DM management as noted below. - will check ammonia level given prior ? dx of cirrhosis however tbili and LFTs are normal. 2. Acute cystitis - follow up urine and blood cultures. continue ceftriaxone x3 days total for uncomplicated cystitis. 3. Type 2 diabetes with insulin use and poor control with hypoglycemia - Difficult to reconcile with patient. Previously patient on 20 on lantus, now apparently 12 per med recc in ER but outside Rx is for basaglar 9 units. She was given 20 units of lantus yesterday evening and BG dropped to 30 in the ER which required treatment. Patient has hypoglycemic unawareness. - continue lantus 9 units at night, continue sliding scale insulin. - A1c >10%, but with hypoglycemia. Recommend endocrine evaluation as an outpatient though control may be difficult with her baseline cognitive impairment. 4. HTN - continue home medications. 5. PUD - continue home PPI and sucralfate. 6. Dementia, chronic Code: Full, surrogate decision maker is the patient's spouse. DPOA is scanned into chart. DVT: Lovenox daily Dispo: Admit under observation, suspect discharge home tomorrow if blood sugars improved and mental status improves. COVID-19 COVID-19 status: Negative Quality MIPS - Admit I confirm the patient?s Advance Care Plan is present, Code status is documented, Surrogate decision maker is in patient?s record [If Yes, STOP here]: Yes
--- NOTE | 2020-12-14 12:52 | PC.NURSE ---
Patient alert, oriented to self, place unsure of why she's here and how she got here. Reoriented, patient is calm cooperative, denies pain.Bed alarm on.
[2020-12-14] MEDS: SUCRALFATE 1 GM TABLET PO ×2 (17:17→20:46)
[2020-12-14] MEDS: AMLODIPINE 5 MG TABLET 10 MG PO (17:19)
[2020-12-14] MEDS: INSULIN LISPRO 100 UNIT/ML 3ML VIAL SUBCUT ×2 (17:24→20:49)
[2020-12-14] MEDS: PANTOPRAZOLE DR 40 MG TABLET 20 MG PO (20:46)
[2020-12-14] MEDS: INSULIN GLARGINE 100 UNIT/ML 3ML PEN 9 UNIT SUBCUT (20:50)
[2020-12-14] MEDS: SODIUM CHLORIDE 0.9% FLUSH 10 ML IV (20:58)
[2020-12-14] MEDS: cefTRIAXone 1,000 MG in SODIUM CHLORIDE 0.9% 100 ML 200 ML IV (23:46)
[2020-12-15] VITALS: BP 157/87; PULSE 80; RESP 18; TEMP 36.3; O2SAT 96
[2020-12-15 03:03] VITALS: O2SAT 96
[2020-12-15 05:37] VITALS: BP 147/77; PULSE 76; RESP 18; TEMP 36.7; O2SAT 97
[2020-12-15 05:37] LABS: Add Manual Diff / Slide Review NO; Basophils Absolute Auto 100 /uL (0-100); Eosinophils Absolute Auto 100 /uL (0-450); Eosinophils Percent Auto 1.5 % (2-4); Hematocrit 27.5 % (36-46); Hemoglobin 8.7 g/dL (12.0-16.0); Lymphocytes Absolute Auto 1300 /uL (1100-4500); Lymphocytes Percent Auto 20.9 % (25-40); Mean Corpuscular HGB Conc 31.6 % (30-36); Mean Corpuscular Hemoglobin 25.3 PG (26-34); Mean Corpuscular Volume 80.2 fL (80-100); Monocytes Absolute Auto 600 /uL (0-900); Monocytes Percent Auto 9.8 % (3-14); Neutrophils Absolute Auto 4300 /uL (1500-7000); Neutrophils Percent Auto 66.8 % (50-75); Platelet Count 257 X10^3/uL (150-400); Red Blood Cell Count 3.43 X10^6/uL (4.0-5.2); White Blood Cell Count 6.4 X10^3/uL (4.5-11.0)
[2020-12-15 05:47] LABS: Ammonia (NH3) < 9 umol/L (9-30)
[2020-12-15 05:48] LABS: Alanine Aminotransferase 11 IU/L (<35); Albumin 2.5 g/dL (3.5-5.0); Albumin Globulin Ratio 0.8 (1.0-2.8); Alkaline Phosphatase 71 U/L (38-126); Aspartate Aminotransferase 18 IU/L (14-36); BUN Creatinine Ratio 16.5 (6-22); Bilirubin Total 0.2 mg/dL (0.2-1.3); Blood Urea Nitrogen 23 mg/dL (7-17); Calcium 8.3 mg/dL (8.4-10.2); Carbon Dioxide 21 mmol/L (22-32); Chloride 112 mmol/L (98-107); Estimated Glomerular Filt Rate 38.2 mL/min (>60); Glucose 217 mg/dL (80-110); HEMOLYSIS < 15 (0-50); Magnesium 1.7 mg/dL (1.6-2.3); Potassium 4.2 mmol/L (3.4-5.1); Sodium 137 mmol/L (137-145); Total Protein 5.5 g/dL (6.3-8.2)
[2020-12-15] MEDS: PANTOPRAZOLE 40 MG VIAL 20 MG IV (06:58)
[2020-12-15 08:20] VITALS: BP 172/93; PULSE 83; RESP 16; TEMP 36.8; O2SAT 97
[2020-12-15 08:27] VITALS: O2SAT 96
[2020-12-15] MEDS: PANTOPRAZOLE DR 40 MG TABLET 20 MG PO (09:18)
[2020-12-15] MEDS: lisinopriL 20 MG TABLET PO (09:19)
[2020-12-15] MEDS: AMLODIPINE 5 MG TABLET 10 MG PO (09:20)
[2020-12-15] MEDS: OXYBUTYNIN 5 MG TABLET PO (09:20)
[2020-12-15] MEDS: METOCLOPRAMIDE HCL 10 MG TABLET 5 MG PO (09:20)
[2020-12-15] MEDS: SUCRALFATE 1 GM TABLET PO (09:20)
[2020-12-15] MEDS: INSULIN LISPRO 100 UNIT/ML 3ML VIAL SUBCUT (09:23)
--- NOTE | 2020-12-15 10:56 | CM.DANOTE ---
Discharge Planning/Care Management DCP: assessment: case received, EMR reviewed, discussed in Team Rounds. PT order was considered and Dr. Wolf said she would decide if this was needed when she met with pt. A dc to home order is now in place. Met with pt and her partner Pablo. Introduced self and role. Both say they are very pleased she is able to d/c home today. PCP: pt's spouse confirmed that this is now: Dr. Villanueva: Deborah Munson is in process of going over final d/c instructions. P: home today as per above. Payer: Medicare and Medicaid. CM Discharge Assessment Start: 12/15/20 10:54 Freq: Status: Active Protocol: Document 12/15/20 10:54 ITV (Rec: 12/15/20 10:56 ITV [id number]) Discharge Planning Assessment Advance Directives? Yes: DPOA, CPR RESUSCITATION Advance Directives on File Yes History Provided By Patient,Significant Other, Medical Record Has Patient been admitted in last 30 No days? Household Members spouse Comment Life Partner: Pablo Nile: [phone] Type of transporation used prior to Relies on Others admit Is patient alert and oriented? Yes Discharge Plan Home
--- NOTE | 2020-12-15 11:58 | PC.NURSE ---
Day shift: Paperwork signed and all questions answered. Pt has all personal belongings. Her SO was in room for d/c teachings as well. MD scripts are at Pt's pharmacy. Sent electronic. Pt denies any pain or nausea. Encouraged to keep heather area clean and dry. Pt stated I'm very happy to be going home now. 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 Pt's SO is driving her home.
--- NOTE | 2020-12-17 14:16 | P.DS_ITS ---
History of Present Illness History of Present Illness Chief complaint: tired, weak legs Narrative: Kristine Moon is a 64-year-old female is a poor historian with a past medical history significant for hypertension, hyperlipidemia, prior CVA with prior residual left-sided weakness (now seemingly improved) and subdural hematoma (04/2019) with dementia (SLUMS testing 03/18 last year), diabetes mellitus type 2, insulin using, former alcohol dependence reportedly in remission with history of chronic calcific pancreatitis, peptic ulcer disease with prior GI bleed, probable alcoholic cirrhosis with recent admit and transfer for esophageal bleeding, GERD, Dow's esophagitis, and cholecystectomy complicated by biliary ductal injury with prior stenting and pneumobilia, and overactive bladder and apparent recent admission for UTI in [place] who presented to the ER with fatigue and weakness and possible confusion per ER report. Patient is unaware as to why she is in the hospital. Patient's spouse not available for review at the moment. She denies current chest pain, shortness of breath, nausea, vomiting, abdominal pain, LE edema, orthopnea. Denies dysuria or urinary frequency. Despite her baseline dementia prior documentation from 4 months ago show the patient as alert and oriented x3 when she was admitted for GI bleeding. In the emergency room, initially she was hypertensive, with the remainder of her vital signs being unremarkable. Her UA was positive for infection. She was planned to be admitted for possible encephalopathy due to acute cystitis. She also had a mild bump in her creatinine due to probable dehydration from her UTI. Her home medications were ordered as best as able overnight, in the ER she became hypoglycemic in the ER to 30, improved with treatment. She had been given 20 units of lantus yesterday evening, which appears to be more than her usual home dose. Patient does admit now that her sugars are quite variable at home. Discharge Providers Provider Date of admission: 12/13/20 23:36 Discharge Date: 12/15/20 Primary care physician: Jyoti Streeter MD Discharge provider: Eliana Wolf MD Summary Hospital Course Discharge Diagnosis: 1. Urinary Tract Infection 2. Acute Metabolic encephalopathy 3. Type 2 diabetes 4. GERD 5. History of Stroke 6. Dementia 7. Hypertension 8. Hyperlipidemia Hospital Course: Patient admitted to the hospital for confusion felt to be secondary to a UTI. The following day both she and her felt she was back to her baseline. Her insulin was adjusted to her usual home regimen ( this was different from her prior regimen) Patient has brittle diabetes and has multiple hypoglycemic episodes. She was discharged on Lantus 8 units in the morning. Her sugars improved in the hospital. She was deemed appropriate to discharge home. Status at Discharge Cognitive/behavioral status at discharge: oriented Exam Vital Signs (past 8 hours): Oxygen Delivery Method Room Air Oxygen Flow Rate 0 Narrative Exam Narrative: Pleasant female in No acute distress Resp Other: Lungs: clear to auscultation Cardio Other: RRR nl Sl S2 GI Other: Abd: Soft/ Non tender/ Nondistended Extrem Other: No edema Objective Labs Result Diagrams: 12/15/20 05:22 12/15/20 05:22 [facility] Medical History Dow's esophagus with esophagitis CVA (cerebral vascular accident) Dementia Diabetes Gallbladder disease GERD (gastroesophageal reflux disease) Hyperlipidemia Hypertension Overactive bladder Subdural hematoma Upper GI bleed Surgical History History of cholecystectomy Tubal ligation status Family History Mother Heart disease Father No problems noted. Social History household members: spouse Smoking Status: Former smoker alcohol intake: former Discharge Plan Discharge Plan Patient Disposition: Home Discharge orders & Medications Prescriptions: New levofloxacin 250 mg tablet 250 mg PO Q24H Qty: 7 RF: 0 Lantus Solostar U-100 Insulin 100 unit/mL (3 mL) insulin pen 8 unit SUBCUT QAM 30 Days Qty: 2.4 RF: 0 Continued cholecalciferol (vitamin D3) [Vitamin D3] 1,000 unit Capsule 1,000 unit PO BID RF: 0 insulin aspart U-100 [Novolog Flexpen U-100 Insulin] 100 UNIT/1 ML insulin pen 1 dose subcut QIDACHS RF: 0 sucralfate 1 gram Tablet 1 g PO QID RF: 0 cyanocobalamin (vitamin B-12) 1,000 mcg Tablet 1,000 mcg PO DAILY RF: 0 pantoprazole 40 mg tablet,delayed release (DR/EC) 20 mg PO BID RF: 0 lisinopril 20 mg Tablet 20 mg PO DAILY RF: 0 oxybutynin chloride 5 mg Tablet 5 mg PO DAILY RF: 0 metoclopramide HCl [Reglan] 5 mg Tablet 5 mg PO QAC RF: 0 amlodipine 10 mg Tablet 10 mg PO DAILY RF: 0 Discontinued Lantus U-100 Insulin 100 unit/mL Solution 8 unit SUBCUT QAM RF: 0 Follow up/Referrals: Jyoti Streeter MD [Primary Care Provider] - Diet/Activity/Treatments Diet: Carb-consistent/Diabetic Visit Report/Discharge Packet Instructions: DI for Urinary Tract Infection (UTI), How to Prevent Falls, Encephalopathy Discharge Data Primary Care Provider: Jyoti Streeter Attending Provider: Marnie Douglas VTE Deep Vein Thrombosis/Pulmonary Embolism Present on Admission: No
--- NOTE | 2020-12-23 17:03 | PC.NURSE ---
Late Entry; NS infusion initiated 12/14 at 09;55, stopped by MD order at 10:23. Ceftriaxone infusion initiated at 23:46, complete at 00:17.
== END 2020-12-15 12:00 | disposition home or self-care (01) ==
LOC: ED 23:19 → AC 12-14 08:20
PROVIDERS: Internal Medicine; Admitting Provider Nurse Practitioner Family; Emergency Provider Emergency Medicine; PCP Family Medicine; Visit Provider Nurse Practitioner Family
DX: N30.00 Acute cystitis without hematuria (principal); R41.82 Altered mental status, unspecified; R53.1 Weakness; R53.81 Other malaise; I10 Essential (primary) hypertension; E78.5 Hyperlipidemia, unspecified; I69.354 Hemiplegia and hemiparesis following cerebral infarction affecting left non-dominant side; Z86.79 Personal history of other diseases of the circulatory system; E11.649 Type 2 diabetes mellitus with hypoglycemia without coma; Z79.4 Long term (current) use of insulin; F03.90 Unspecified dementia, unspecified severity, without behavioral disturbance, psychotic disturbance, mood disturbance, and anxiety; F10.21 Alcohol dependence, in remission; K27.9 Peptic ulcer, site unspecified, unspecified as acute or chronic, without hemorrhage or perforation; Z20.822 Contact with and (suspected) exposure to COVID-19
CPT/HCPCS: 36415; 70450; 80053; 80305; 80320; 81001; 82009; 82140; 82550; 82962; 83036; 83605; 83735; 84145; 84146; 84443; 84484; 85025; 87077; 87086; 87186; 87635; 93005; 96361; 96365; 96366; 96372; 96375; 99285; C9803; G0378; C9113; J0360; J0696; J1815

== ENCOUNTER 2020-12-23 08:11 | Emergency (ER) | payer MEDICARE, MEDICAID, SELFPAY ==
[2020-12-14 10:47] VITALS: BMI 23.3
--- NOTE | 2020-12-23 08:14 | ED_ITS ---
HPI - Skin/Abscess/Foreign Bdy General Chief complaint: Skin/Abscess/Foreign Body Stated complaint: bad rash speading Time Seen by Provider: 12/23/20 08:13 History of Present Illness HPI narrative: 65-year-old Female former smoker with extensive medical history including diabetes, hypertension, hyperlipidemia, stroke, mi presents with a painful, itchy rash in her groin that has been slowly worsening since a recent hospitalization. She presents with a chief complaint of the rash as stated despite the use of a barrier cream. She has had no systemic findings such as fever or chills. She denies any nausea, vomiting or diarrhea. She denies vaginal bleeding, discharge or urinary complaints such as dysuria, frequency or urgency Related Data Home Medications Medication Instructions Recorded Confirmed cholecalciferol (vitamin D3) 25 1,000 unit PO BID 10/08/17 12/14/20 mcg (1,000 unit) capsule (Vitamin D3) insulin aspart U-100 100 unit/mL 1 dose SUBCUT QIDACHS 10/08/17 12/14/20 (3 mL) subcutaneous pen (Novolog Flexpen U-100 Insulin aspart) cyanocobalamin (vitamin B-12) 1,000 mcg PO DAILY 08/02/19 12/14/20 1,000 mcg tablet sucralfate 1 gram tablet 1 g PO QID 08/02/19 12/14/20 pantoprazole 40 mg tablet,delayed 20 mg PO BID 12/26/19 12/14/20 release amlodipine 10 mg tablet 10 mg PO DAILY 12/14/20 12/14/20 lisinopril 20 mg tablet 20 mg PO DAILY 12/14/20 12/14/20 metoclopramide HCl 5 mg tablet 5 mg PO QAC 12/14/20 12/14/20 (Reglan) oxybutynin chloride 5 mg tablet 5 mg PO DAILY 12/14/20 12/14/20 Previous Rx's Medication Instructions Recorded insulin glargine 100 unit/mL (3 8 unit SUBCUT QAM 30 Days #2.4 ml 12/15/20 mL) subcutaneous pen (Lantus Solostar U-100 Insulin) levofloxacin 250 mg tablet 250 mg PO Q24H #7 tab 12/15/20 nystatin 100,000 unit/gram topical 1 applic TOPICAL BID #15 g 12/23/20 ointment Allergies Allergy/AdvReac Type Severity Reaction Status Date / Time Iodine and Iodide Containing Allergy Unknown Verified 12/13/20 18:54 Produc [IODINE AND IODIDE CONTAINING PRODUC] latex [LATEX] Allergy Unknown Verified 12/13/20 18:54 Review of Systems Review of Systems Narrative: GENERAL: Denies chills, fatigue, malaise, fever, sweats. HEENT: Denies sinus pain, ear pain, sore throat, difficulty swallowing, dizziness. RESPIRATORY: Denies dyspnea, cough, wheezing, hemoptysis, sputum. CARDIOVASCULAR: Denies chest pain, palpitations, orthopnea, edema, GASTROINTESTINAL: Denies nausea, vomiting, abdominal pain, diarrhea, constipation, melena. : Denies dysuria, frequency, incontinence, hematuria, urinary retention. MUSCULOSKELETAL: denies weakness, joint pain, or bony pain SKIN: See HPI NEUROLOGIC: Denies weakness, headache, numbness, change in speech, confusion, seizures, incoordination. PSYCHIATRIC: No concerning psychosocial issues. 12 point review of systems is negative except for those stated above Patient History Medical History Dow's esophagus with esophagitis CVA (cerebral vascular accident) Dementia Diabetes Gallbladder disease GERD (gastroesophageal reflux disease) Hyperlipidemia Hypertension Overactive bladder Subdural hematoma Upper GI bleed Surgical History History of cholecystectomy Tubal ligation status Family History Mother Heart disease Father No problems noted. Social History household members: spouse Smoking Status: Former smoker alcohol intake: former Smoking Status: Former smoker tobacco type: cigarettes alcohol intake frequency: holidays/special occasions only Alcohol type: hard liquor Substance Use Type: marijuana Exam Narrative Exam Narrative: GEN: AOx3 and in mild distress EYES: Pupils are equal, round, and reactive to light and accommodation. Extraoccular muscles are intact bilaterally. There is no subconjunctival hemorrhage or exudate. CHEST: Lungs are clear to auscultation bilaterally and free of wheezes, rales, or rhonchi. Heart rate is regular rhythm, there are no murmurs, clicks, rubs, or gallops. There is no chest wall tenderness. ABD: Abdomen is soft and nontender. There is no guarding or rebound. Bowel s ounds are normal in all 4 quadrants. There is no mass or organomegaly. EXT: Full painless ROM of all extremities with no loss of sensation or strength. SKIN: Skin in the folds of her groin is pruritic, with a beefy red rash in the absence of fluctuance, induration or lymphangitis. Otherwise, Warm, pink, and dry. No erythema or rash Initial Vital Signs Initial Vital Signs: Vital Signs Temperature 98.7 F 12/23/20 08:23 Pulse Rate 71 12/23/20 08:23 Respiratory Rate 16 12/23/20 08:23 Blood Pressure 185/90 H 12/23/20 08:23 Pulse Oximetry 98 12/23/20 08:23 Course Orders Ordered: Discontinued Medications Nystatin (Nystatin Cream 30 Gm) 1 applic TOP NOW ONE Stop: 12/23/20 08:27 Last Admin: 12/23/20 08:51 Dose: 1 applic Documented by: CVANCE Vital Signs Vital signs: Vital Signs - 8 hr 12/23/20 08:23 Temperature 98.7 F Pulse Rate 71 Respiratory Rate 16 Blood Pressure 185/90 H Pulse Oximetry 98 Discharge Plan Departure Patient Disposition: Home Clinical Impression: Zhane infection Instructions: DI for Vaginal Yeast Infection Activity Restrictions/Additional Instructions: *You have been diagnosed with [yeast infection of the skin in your groin] *What to do: *Please continue to take your regular medications as directed. [x] New medication prescriptions sent to your pharmacy: [ ] [ ] New medication written as a paper prescription [ ] No new medications given *Please follow up with your primary care provider in 2-3 days, call for an appointment. Let them know you were seen in the Emergency Department and that we ask that you be seen in follow up. We will electronically transmit a record of today's note if your PCP is in our system *If you do not have a primary care provider please contact the [facility] Resource line at [phone]. They will ask some questions about your medical history and help get you set up with a doctor in the community. *Return to Emergency Department if you should have any new, worsening or concerning symptoms, such as [fever greater than 101 F, shaking chills, worsening pain, persistent vomiting or other bothersome symptoms] Prescriptions: New nystatin 100,000 unit/gram ointment 1 applic topical BID Qty: 15 RF: 0 No Action cholecalciferol (vitamin D3) [Vitamin D3] 1,000 unit Capsule 1,000 unit PO BID RF: 0 insulin aspart U-100 [Novolog Flexpen U-100 Insulin] 100 UNIT/1 ML insulin pen 1 dose subcut QIDACHS RF: 0 sucralfate 1 gram Tablet 1 g PO QID RF: 0 cyanocobalamin (vitamin B-12) 1,000 mcg Tablet 1,000 mcg PO DAILY RF: 0 pantoprazole 40 mg tablet,delayed release (DR/EC) 20 mg PO BID RF: 0 lisinopril 20 mg Tablet 20 mg PO DAILY RF: 0 oxybutynin chloride 5 mg Tablet 5 mg PO DAILY RF: 0 metoclopramide HCl [Reglan] 5 mg Tablet 5 mg PO QAC RF: 0 amlodipine 10 mg Tablet 10 mg PO DAILY RF: 0 levofloxacin 250 mg tablet 250 mg PO Q24H Qty: 7 RF: 0 Lantus Solostar U-100 Insulin 100 unit/mL (3 mL) insulin pen 8 unit SUBCUT QAM 30 Days Qty: 2.4 RF: 0 Referrals: Jyoti Streeter MD [Primary Care Provider] -
[2020-12-23 08:23] VITALS: BP 185/90; PULSE 71; RESP 16; TEMP 37.1; O2SAT 98
[2020-12-23] MEDS: NYSTATIN CREAM 30 GM 1 APPLIC TOP (08:51)
[2020-12-23 09:09] VITALS: BP 174/69; PULSE 73; RESP 10; O2SAT 100
[2020-12-23 09:15] VITALS: BP 174/69; PULSE 74; RESP 10; O2SAT 100
== END 2020-12-23 09:16 | disposition home or self-care (01) ==
PROVIDERS: Emergency Provider Emergency Medicine; PCP Family Medicine
DX: B37.2 Candidiasis of skin and nail (principal)
CPT/HCPCS: 99282

== ENCOUNTER → 2021-01-05 15:47 | Outpatient (CLI) | payer MEDICARE, MEDICAID, SELFPAY ==
[2020-12-14 10:47] VITALS: BMI 23.3
--- NOTE | 2021-01-05 | DI.MRI.S_ITS ---
PROCEDURE: MR ABDOMEN WO/W CON INDICATIONS: Abnormal findings on diagnostic imaging of other TECHNIQUE: Coronal HASTE, axial 2D FLASH in- and [id number]; axial breath-hold T2 FSE. Dynamic axial VIBE during the administration of contrast; post-contrast coronal VIBE or 2D FLASH with fat saturation from the hepatic dome to the iliac crests. Optional diffusion weighted imaging and ADC may be performed. COMPARISON: [facility], CT, CT ABDOMEN PELVIS WO CON, 08/01/2019, 8:04. [facility], US, US ABDOMEN COMPLETE, 09/05/2019, 16:13. [facility], MR, MR ABDOMEN WO/W CON, 10/26/2019, 9:40. FINDINGS: Image quality: There is extensive motion artifact limiting evaluation. Lung bases: No basal pleural effusions. Heart size is enlarged. Solid organs: No discrete mass or suspicious enhancement identified in the liver. The gallbladder is surgically absent. No definite biliary ductal dilatation, with evaluation limited by motion artifact. There are foci of magnetic susceptibility artifact redemonstrated consistent with pneumobilia. The pancreas is atrophic in appearance corresponding with sequelae of chronic calcified pancreatitis as seen on the prior CT. Spleen is normal in size. No adrenal nodules. Kidneys demonstrate no hydronephrosis. Nodes and vessels: No retroperitoneal or mesenteric adenopathy by size criteria. Aorta and inferior vena cava are normal in size. There is cavernous transformation redemonstrated in the andreina hepatis, with evaluation limited by motion artifact. Bowel and peritoneum: Visualized bowel loops are normal in caliber. No free fluid within the visualized abdomen. Bones and soft tissues: No ventral hernias. Bone marrow is normal in overall signal. IMPRESSION: 1. Limited evaluation due to extensive motion artifact. 2. No discrete hepatic mass or suspicious enhancement identified. 3. Cavernous transformation again noted. 4. Pneumobilia redemonstrated without definite biliary ductal dilatation. Dictated by: Landon Mcbride M.D. on 01/06/2021 at 10:12 Approved by: Landon Mcbride M.D. on 01/06/2021 at 10:28
== END ==
PROVIDERS: PCP Family Medicine; Referring Provider Nurse Practitioner; Visit Provider Nurse Practitioner
DX: R93.89 Abnormal findings on diagnostic imaging of other specified body structures (principal); I51.7 Cardiomegaly; Z90.49 Acquired absence of other specified parts of digestive tract
CPT/HCPCS: 74183; A9579

== ENCOUNTER 2021-01-15 17:55 | Observation (INO) | payer MEDICARE, MEDICAID, SELFPAY ==
[2020-12-14 10:47] VITALS: BMI 23.3
[2021-01-15] VITALS (10 sets, daily range): BP systolic 198; BP diastolic 93; PULSE 69–88; RESP 19–27; TEMP 36.8; O2SAT 97–99; BMI 21.9
--- NOTE | 2021-01-15 18:58 | ED_ITS ---
HPI - Nausea/Vomiting/Diarrhea General Chief complaint: Nausea/Vomiting/Diarrhea Stated complaint: TROUBLE KEEPING FOOD DOWN Time Seen by Provider: 01/15/21 18:16 Source: patient and family Mode of arrival: Family Vehicle Limitations: no limitations History of Present Illness HPI Narrative: 65-year-old Female former smoker with extensive medical history including diabetes, hypertension, hyperlipidemia, stroke, and PA presents with generally feeling unwell for the past 2 days or so. She states that she had multiple episodes of vomiting 2 days ago and then a few yesterday along with once earlier today. She denies any blood or coffee-ground element to her vomiting and denies any pain. She has a poor appetite and feels weak. She has had no diarrhea and has no urinary complaints. She has no chest pain or shortness of breath and she denies any fever or chills. Related Data Home Medications Medication Instructions Recorded Confirmed cholecalciferol (vitamin D3) 25 1,000 unit PO BID 10/08/17 12/14/20 mcg (1,000 unit) capsule (Vitamin D3) insulin aspart U-100 100 unit/mL 1 dose SUBCUT QIDACHS 10/08/17 12/14/20 (3 mL) subcutaneous pen (Novolog Flexpen U-100 Insulin aspart) cyanocobalamin (vitamin B-12) 1,000 mcg PO DAILY 08/02/19 12/14/20 1,000 mcg tablet sucralfate 1 gram tablet 1 g PO QID 08/02/19 12/14/20 pantoprazole 40 mg tablet,delayed 20 mg PO BID 12/26/19 12/14/20 release amlodipine 10 mg tablet 10 mg PO DAILY 12/14/20 12/14/20 lisinopril 20 mg tablet 20 mg PO DAILY 12/14/20 12/14/20 metoclopramide HCl 5 mg tablet 5 mg PO QAC 12/14/20 12/14/20 (Reglan) oxybutynin chloride 5 mg tablet 5 mg PO DAILY 12/14/20 12/14/20 Previous Rx's Medication Instructions Recorded levofloxacin 250 mg tablet 250 mg PO Q24H #7 tab 12/15/20 nystatin 100,000 unit/gram topical 1 applic TOPICAL BID #15 g 12/23/20 ointment Allergies Allergy/AdvReac Type Severity Reaction Status Date / Time Iodine and Iodide Containing Allergy Unknown Verified 01/15/21 18:26 Produc [IODINE AND IODIDE CONTAINING PRODUC] latex [LATEX] Allergy Unknown Verified 01/15/21 18:26 Review of Systems Review of Systems Narrative: GENERAL: see HPI. HEENT: Denies sinus pain, ear pain, sore throat, difficulty swallowing, dizzines s. RESPIRATORY: Denies dyspnea, cough, wheezing, hemoptysis, sputum. CARDIOVASCULAR: Denies chest pain, palpitations, orthopnea, edema, GASTROINTESTINAL: See HPI : Denies dysuria, frequency, incontinence, hematuria, urinary retention. MUSCULOSKELETAL: denies weakness, joint pain, or bony pain SKIN: Denies rash, skin lesions, or other NEUROLOGIC: Denies weakness, headache, numbness, change in speech, confusion, seizures, incoordination. PSYCHIATRIC: No concerning psychosocial issues. 12 point review of systems is negative except for those stated above Patient History Medical History Dow's esophagus with esophagitis CVA (cerebral vascular accident) Dementia Diabetes Gallbladder disease GERD (gastroesophageal reflux disease) Hyperlipidemia Hypertension Overactive bladder Subdural hematoma Upper GI bleed Surgical History History of cholecystectomy Tubal ligation status Family History Mother Heart disease Father No problems noted. Social History household members: spouse Smoking Status: Former smoker alcohol intake: former Smoking Status: Former smoker tobacco type: cigarettes alcohol intake frequency: holidays/special occasions only Alcohol type: hard liquor Substance Use Type: marijuana Exam Narrative Exam Narrative: GENERAL: [65] year old patient appears older than stated age. Thin, chronically ill, in mild distress HEAD: Atraumatic. Normocephalic. EYES: Pupils equal round and reactive. Extraocular motions intact. No scleral icterus. No injection or drainage. ENT: Moist mucous membranes Nose without bleeding, purulent drainage. Throat without erythema, tonsillar hypertrophy or exudate. Airway patent. NECK: Trachea midline. Non tender CARDIOVASCULAR: Regular rate and rhythm without murmurs, gallops, or rubs. RESPIRATORY: Clear to auscultation. Breath sounds equal bilaterally. No wheezes, rales, or rhonchi. GASTROINTESTINAL: Abdomen soft, non-tender, nondistended. EXTREMITIES: No edema or joint tenderness. BACK: Nontender without deformity or crepitance. No flank tenderness. NEURO: AOx3. Poor skin turgor SKIN: No rash or erythema of visible areas, Initial Vital Signs Initial Vital Signs: Vital Signs Temperature 98.3 F 01/15/21 18:27 Pulse Rate 88 01/15/21 18:27 Respiratory Rate 20 01/15/21 18:27 Blood Pressure 198/93 H 01/15/21 18:27 Pulse Oximetry 97 01/15/21 18:27 Course Orders Ordered: ED Orders 01/15/21 18:27 EKG-12 Lead Stat 01/15/21 19:03 XR acute abdomen series Stat 01/15/21 19:20 Complete Blood Count AUTO DIFF Stat Comprehensive Metabolic Panel Stat Lipase Stat Troponin & CK Cardiac Panel Stat 01/15/21 21:23 EKG-12 Lead Stat 01/15/21 21:30 Troponin I Stat 01/15/21 23:15 Troponin I Q8H 01/16/21 07:15 Troponin I Q8H Acetaminophen (Acetaminophen 325 Mg Tablet) 650 mg PO Q6HR PRN PRN Reason: Fever/Mild Pain (1-3) Sodium Chloride (Normal Saline 0.9%) 1,000 mls @ 125 mls/hr IV CONT MIRIAM Last Admin: 01/15/21 21:43 Dose: 125 mls/hr Documented by: VANI Lactated Ringer's (Lactated Ringers) 1,000 mls @ 100 mls/hr IV CONT MIRIAM Morphine Sulfate (Morphine 2 Mg/Ml Inj) 2 mg IV Q5MIN PRN PRN Reason: Chest Pain Naloxone HCl (Naloxone 0.4 Mg/Ml Vial) 0.2 mg IV Q2MIN PRN PRN Reason: Opiate Reversal Nitroglycerin (Nitroglycerin 0.4 Mg Sl Tab) 0.4 mg SL [id number] PRN PRN Reason: Chest Pain Ondansetron HCl (Ondansetron 4 Mg/2 Ml Inj) 4 mg IV Q8HR PRN PRN Reason: Nausea And Vomiting Discontinued Medications Aspirin (Aspirin 81 Mg Chew Tab) 324 mg PO NOW ONE Stop: 01/15/21 21:24 Last Admin: 01/15/21 21:42 Dose: 324 mg Documented by: AVNI Ondansetron HCl (Ondansetron 4 Mg/2 Ml Inj) 4 mg IV NOW ONE Stop: 01/15/21 21:50 Last Admin: 01/15/21 21:52 Dose: 4 mg Documented by: AVNI Reevaluation(s) Reevaluation #1: patient is feeling better after fluids Consultations Consultation #1: 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 Typical work up Vital Signs Vital signs: Vital Signs - 8 hr 01/15/21 18:27 01/15/21 19:42 01/15/21 20:08 Temperature 98.3 F Pulse Rate 88 81 79 Respiratory Rate 20 22 27 H Blood Pressure 198/93 H Pulse Oximetry 97 99 98 01/15/21 20:30 01/15/21 21:00 01/15/21 21:30 Temperature Pulse Rate 79 77 75 Respiratory Rate 22 23 19 Blood Pressure Pulse Oximetry 99 98 01/15/21 22:00 01/15/21 22:30 Temperature Pulse Rate 75 76 Respiratory Rate 21 26 H Blood Pressure Pulse Oximetry 98 99 MDM - Nausea/Vomiting/Diarrhea Lab Data Result diagrams: 01/15/21 19:20 01/15/21 19:20 Labs: Lab Results 01/15/21 01/15/21 01/15/21 Range/Units 19:20 19:20 21:30 WBC 9.7 (4.5-11.0) X10^3/uL RBC 4.46 (4.0-5.2) X10^6/uL Hgb 10.8 L (12.0-16.0) g/dL Hct 34.2 L (36-46) % MCV 76.7 L (80-100) fL MCH 24.3 L (26-34) PG MCHC 31.7 (30-36) % RDW 16.3 H (11.6-14.8) % Plt Count 292 (150-400) X10^3/uL Neut % (Auto) Not Reportable Lymph % (Auto) Not Reportable Kingfisher % (Auto) Not Reportable Eos % (Auto) Not Reportable Baso % (Auto) Not Reportable Lymph # (Auto) Not Reportable Kingfisher # (Auto) Not Reportable Baso # (Auto) Not Reportable Total Counted 100 Seg Neutrophils % 80.0 H (38-70) % Band Neutrophils % 3.0 (3-7) % Lymphocytes % (Manual) 13.0 L (25-45) % Monocytes % (Manual) 4.0 (2-11) % Neutrophils # (Manual) 8051 H (8379-5705) /uL Differential Comment RBC Morphology See below Microcytosis 2+ H Sodium 134 L (137-145) mmol/L Potassium 3.6 (3.4-5.1) mmol/L Chloride 103 (98-107) mmol/L Carbon Dioxide 22 (22-32) mmol/L BUN 24 H (7-17) mg/dL Creatinine 1.28 H (0.52-1.04) mg/dL Estimated GFR 42.0 L (>60) mL/min BUN/Creatinine Ratio 18.8 (6-22) Glucose 230 H (80-110) mg/dL Calcium 8.8 (8.4-10.2) mg/dL Magnesium (1.6-2.3) mg/dL Total Bilirubin 1.0 (0.2-1.3) mg/dL AST 39 H (14-36) IU/L ALT 15 (<35) IU/L Alkaline Phosphatase 86 (38-126) U/L Total Creatine Kinase 101 (30-135) U/L CK-MB (CK-2) 6.20 H (<2.37) ng/mL CK-MB (CK-2) Rel Index 6.1 H* (1.5-5.0) % Troponin I 0.103 H 0.101 H (0.01-0.034) ng/mL Total Protein 6.9 (6.3-8.2) g/dL Albumin 3.4 L (3.5-5.0) g/dL Globulin 3.5 (1.7-4.1) g/dL Albumin/Globulin Ratio 1.0 (1.0-2.8) Triglycerides (35-150) mg/dL Cholesterol (140-199) mg/dL LDL Cholesterol, Calc (<100) mg/dL HDL Cholesterol (40-60) mg/dL Lipase 11 L (23-300) U/L // Range/Units 21:30 WBC (4.5-11.0) X10^3/uL RBC (4.0-5.2) X10^6/uL Hgb (12.0-16.0) g/dL Hct (36-46) % MCV (80-100) fL MCH (26-34) PG MCHC (30-36) % RDW (11.6-14.8) % Plt Count (150-400) X10^3/uL Neut % (Auto) Lymph % (Auto) Kingfisher % (Auto) Eos % (Auto) Baso % (Auto) Lymph # (Auto) Kingfisher # (Auto) Baso # (Auto) Total Counted Seg Neutrophils % (38-70) % Band Neutrophils % (3-7) % Lymphocytes % (Manual) (25-45) % Monocytes % (Manual) (2-11) % Neutrophils # (Manual) (4091-5148) /uL Differential Comment RBC Morphology Microcytosis Sodium (137-145) mmol/L Potassium (3.4-5.1) mmol/L Chloride (98-107) mmol/L Carbon Dioxide (22-32) mmol/L BUN (7-17) mg/dL Creatinine (0.52-1.04) mg/dL Estimated GFR (>60) mL/min BUN/Creatinine Ratio (6-22) Glucose (80-110) mg/dL Calcium (8.4-10.2) mg/dL Magnesium 1.8 (1.6-2.3) mg/dL Total Bilirubin (0.2-1.3) mg/dL AST (14-36) IU/L ALT (<35) IU/L Alkaline Phosphatase (38-126) U/L Total Creatine Kinase (30-135) U/L CK-MB (CK-2) (<2.37) ng/mL CK-MB (CK-2) Rel Index (1.5-5.0) % Troponin I (0.01-0.034) ng/mL Total Protein (6.3-8.2) g/dL Albumin (3.5-5.0) g/dL Globulin (1.7-4.1) g/dL Albumin/Globulin Ratio (1.0-2.8) Triglycerides 162 H (35-150) mg/dL Cholesterol 226 H (140-199) mg/dL LDL Cholesterol, Calc 138 H (<100) mg/dL HDL Cholesterol 56 (40-60) mg/dL Lipase (23-300) U/L Imaging Data Chest x-ray: Radiologist's Impression: [address] [id number] ReportSigned Patient: Kristine Moon RMR#: [id number]: 6Acct:[id number]/Sex: 65 / FDate of Service: 01/15/21Loc: EDAccession Number: [id number] Procedure: XR acute abdomen series Ordering Provider: Bruce Nguyễn D.O. PROCEDURE: XR ACUTE ABDOMEN SERIES INDICATIONS: N/V, weakness TECHNIQUE: One view chest and two views of the abdomen were acquired. COMPARISON: [facility], MR, MR ABDOMEN PANCREAS PROTOCOL, 08/22/2020, 10:07. [facility], CR, XR ACUTE ABDOMEN SERIES, 11/12/2019, 15:16. FINDINGS: Surgical changes and devices: None. Chest: Lungs are clear. Heart size is normal. No pleural effusions. No pneumoperitoneum. Abdomen: Bowel gas pattern is nonspecific. Numerous calcifications project over the pancreas compatible with sequela of chronic pancreatitis. Visualized solid organ contours appear normal. Bones: No suspicious bony lesions. Left hip arthroplasty. IMPRESSION: Nonspecific bowel gas pattern without evidence of obstruction. Dictated by: Rosalinda Suazo MD, PhD on 01/15/2021 at 20:12 Approved by: Rosalinda Suazo MD, PhD on 01/15/2021 at 20:13 Discharge Plan Departure Patient Disposition: Admitted As Inpatient Clinical Impression: Non-ST elevation PA (NSTEMI) Admit Date/Time: 01/15/21 23:10 Admit Provider: Marnie Douglas
--- NOTE | 2021-01-15 19:03 | DI.RAD.S_ITS ---
PROCEDURE: XR ACUTE ABDOMEN SERIES INDICATIONS: N/V, weakness TECHNIQUE: One view chest and two views of the abdomen were acquired. COMPARISON: [facility], MR, MR ABDOMEN PANCREAS PROTOCOL, 08/22/2020, 10:07. [facility], CR, XR ACUTE ABDOMEN SERIES, 11/12/2019, 15:16. FINDINGS: Surgical changes and devices: None. Chest: Lungs are clear. Heart size is normal. No pleural effusions. No pneumoperitoneum. Abdomen: Bowel gas pattern is nonspecific. Numerous calcifications project over the pancreas compatible with sequela of chronic pancreatitis. Visualized solid organ contours appear normal. Bones: No suspicious bony lesions. Left hip arthroplasty. IMPRESSION: Nonspecific bowel gas pattern without evidence of obstruction. Dictated by: Rosalinda Suazo MD, PhD on 01/15/2021 at 20:12 Approved by: Rosalinda Suazo MD, PhD on 01/15/2021 at 20:13
[2021-01-15 19:25] LABS: Hematocrit 34.2 % (36-46); Hemoglobin 10.8 g/dL (12.0-16.0); Mean Corpuscular HGB Conc 31.7 % (30-36); Mean Corpuscular Hemoglobin 24.3 PG (26-34); Mean Corpuscular Volume 76.7 fL (80-100); Platelet Count 292 X10^3/uL (150-400); Red Blood Cell Count 4.46 X10^6/uL (4.0-5.2); Red Cell Distribution Width 16.3 % (11.6-14.8); White Blood Cell Count 9.7 X10^3/uL (4.5-11.0)
[2021-01-15 19:29] LABS: Add Manual Diff / Slide Review YES
[2021-01-15 19:38] LABS: Alanine Aminotransferase 15 IU/L (<35); Albumin 3.4 g/dL (3.5-5.0); Alkaline Phosphatase 86 U/L (38-126); Aspartate Aminotransferase 39 IU/L (14-36); BUN Creatinine Ratio 18.8 (6-22); Blood Urea Nitrogen 24 mg/dL (7-17); Calcium 8.8 mg/dL (8.4-10.2); Carbon Dioxide 22 mmol/L (22-32); Chloride 103 mmol/L (98-107); Creatine Kinase 101 U/L (30-135); Globulin 3.5 g/dL (1.7-4.1); Glucose 230 mg/dL (80-110); Lipase 11 U/L (23-300); Sodium 134 mmol/L (137-145); Total Protein 6.9 g/dL (6.3-8.2)
[2021-01-15 19:39] LABS: HEMOLYSIS 79 (0-50); Potassium 3.6 mmol/L (3.4-5.1)
[2021-01-15 19:49] LABS: Troponin I 0.103 ng/mL (0.01-0.034)
[2021-01-15 19:54] LABS: Neutrophils Absolute Manual 8051 /uL (3000-5900); Total Cells Counted 100
[2021-01-15 20:02] LABS: CKMB % Relative Index 6.1 % (1.5-5.0)
[2021-01-15 20:09] LABS: Microcytosis 2+
[2021-01-15] MEDS: ASPIRIN 81 MG CHEW TAB 324 MG PO (21:42)
[2021-01-15] MEDS: SODIUM CHLORIDE 0.9% 1,000 ML 125 ML IV (21:43)
[2021-01-15] MEDS: ONDANSETRON 4 MG/2 ML INJ IV (21:52)
[2021-01-15 21:58] LABS: Troponin I 0.101 ng/mL (0.01-0.034)
--- NOTE | 2021-01-15 23:13 | DI.ECHO.S_ITS ---
[facility]---------[facility] +---------+ : : [address] : : : : [id number] : : : : Phone: [phone] Echocardiogram Report + + :Name: KIMBERLY BONILLA Study Date: 01/16/2021 Height: 64 in : :[facility] ReadingLocation: Weight: 228 lb : : Gender: Female BSA: 2.1 m2 : :: 1955 Age: 65 yrs BP: 151/84 mmHg: :Reason For Study: ELEVATED TROPONIN/ AR : :Ordering Physician: MITCHELL, : :CONRADO Performed By: Juju Rosado : :Referring: CONRADO MEDRANO : + + Interpretation Summary Mild concentric left ventricular hypertrophy with ejection fraction 60-65%. Diastolic parameters suggest a relaxation abnormality of the left ventricle, consistent with probable normal filling pressures. Mild aortic regurgitation. Mild mitral annular calcification. The ascending aorta is mild-moderately enlarged (4.2 cm). Comparison is made with the echocardiogram of 08/19/2020, there has been no significant change. Procedure: A two-dimensional transthoracic echocardiogram with color flow and Doppler was performed. The study quality was technically adequate. Comparison is made with the echocardiogram of 08/19/2020. The patient was in sinus rhythm with heart rates between 72-87 bpm during the exam. Left Ventricle: The left ventricle is normal in size. There is mild concentric left ventricular hypertrophy. The ejection fraction is estimated to be 60-65%. There are no focal wall motion abnormalities. Diastolic parameters suggest a relaxation abnormality of the left ventricle, consistent with probable normal filling pressures. Right Ventricle: The right ventricle is normal in size and function. Atria: The left atrial size is normal. Right atrial size is normal. There is no Doppler evidence for an interatrial shunt. Mitral Valve: The mitral valve leaflets appear mildly thickened, but open well. There is mild mitral annular calcification. There is trace mitral regurgitation. Aortic Valve: The aortic valve is trileaflet. The aortic valve opens well. There is no aortic valve stenosis. There is mild aortic regurgitation. Tricuspid Valve: The tricuspid valve is normal in structure and function. There is trace tricuspid regurgitation. Pulmonary artery pressures cannot be estimated because of the lack of a measurable TR jet velocity but the IVC suggests a CVP of around 3 mmHg. Pulmonic Valve: The pulmonic valve is not well seen, but is grossly normal. There is trace pulmonic regurgitation. Great Vessels: The aortic root is normal size. The ascending aorta is mild- moderately enlarged. The IVC is of normal diameter and collapses greater than 50% with a sniff. This suggests a low right atrial pressure of 3 mm Hg. Pericardium/ Pleura There is no pericardial effusion. There is no pleural effusion. MMode/2D Measurements & Calculations LVIDd: 4.4 cm LVOT diam: 2.0 cm LVIDs: 2.9 cm Ao root diam: 3.9 cm FS: 33.5 % asc Aorta Diam: 4.2 cm IVSd: 1.4 cm Ao Arch Diam (Prox Trans): 3.0 cm LVPWd: 1.0 cm LV barrios. diameter/BSA (cm/m^2): 2.1 LV sys. diameter/BSA (cm/m^2): 1.4 LA A2 area: 16.5 cm2 RA long axis: 4.1 cm LA A4 area: 9.4 cm2 RA area: 7.6 cm2 LA length (vol): 4.3 cm RA vol: 11.8 ml LA vol: 30.5 ml RA : 5.7 ml/m2 LA vol index: 14.8 ml/m2 IVC diam: 1.3 cm RVD1 (basal): 2.2 cm TAPSE: 1.7 cm Doppler Measurements & Calculations Ao V2 max: 157.4 cm/sec LVOT Max Krunal: 123.2 cm/sec Ao V2 mean: 108.5 cm/sec LV V1 max P.1 mmHg Ao max P.9 mmHg LV V1 VTI: 16.8 cm Ao mean P.4 mmHg ARETHA(I,D): 2.2 cm2 Ao V2 VTI: 23.8 cm ARETHA(V,D): 2.4 cm2 sev ratio: 0.70 ARETHA indexed to BSA (cm^2/m^2): 1.1 MV E max krunal: 121.0 cm/sec SV(LVOT): 52.0 ml MV A max krunal: 2.3 cm/sec MV E/A: 51.8 Med Peak E' Krunal: 2.3 cm/sec E/E' med: 53.1 Lat Peak E' Krunal: 4.9 cm/sec E/E' lat: 24.7 E/e' average: 38.9 MV dec time: 0.14 sec Electronically signed by: Epifanio Mendez on Reading Physician:01/16/2021 04:37 PM
[2021-01-15 23:45] LABS: Cholesterol 226 mg/dL (140-199); HDL Cholesterol 56 mg/dL (40-60); LDL Cholesterol Calculated 138 mg/dL (<100); Magnesium 1.8 mg/dL (1.6-2.3); Triglycerides 162 mg/dL (35-150)
[2021-01-15 23:53] LABS: NT-proBNP (BNP-Adult 18+) 14700 pg/mL (<125)
[2021-01-16] VITALS (14 sets, daily range): BP systolic 121–179; BP diastolic 61–95; PULSE 67–86; RESP 17–19; TEMP 35.7–36.7; O2SAT 95–100; BMI 19.1
[2021-01-16 00:41] LABS: COVID19 - ADMIT (NP swab/PCR) Negative (Negative)
[2021-01-16 00:47] LABS: Alanine Aminotransferase 12 IU/L (<35); Albumin 2.9 g/dL (3.5-5.0); Albumin Globulin Ratio 0.9 (1.0-2.8); Alkaline Phosphatase 93 U/L (38-126); Aspartate Aminotransferase 30 IU/L (14-36); BUN Creatinine Ratio 16.7 (6-22); Bilirubin Total 0.8 mg/dL (0.2-1.3); Blood Urea Nitrogen 23 mg/dL (7-17); Calcium 8.6 mg/dL (8.4-10.2); Carbon Dioxide 25 mmol/L (22-32); Chloride 104 mmol/L (98-107); Estimated Glomerular Filt Rate 38.5 mL/min (>60); Globulin 3.3 g/dL (1.7-4.1); Glucose 170 mg/dL (80-110); HEMOLYSIS < 15 (0-50); Potassium 3.3 mmol/L (3.4-5.1); Sodium 135 mmol/L (137-145); Total Protein 6.2 g/dL (6.3-8.2)
[2021-01-16 00:58] LABS: Troponin I 0.112 ng/mL (0.01-0.034)
[2021-01-16] MEDS: LACTATED RINGERS 1,000 ML 100 ML IV (01:42)
--- NOTE | 2021-01-16 02:21 | PC.NURSE ---
Patient is unclear on her medications. States her s/o Pablo does them for her. Need a follow up call for current meds,doses, times taken.
--- NOTE | 2021-01-16 05:22 | PM.HP.1 ---
History of Present Illness History of Present Illness Date Patient Seen: 01/15/21 Time Patient Seen: 23:25 Chief complaint: TROUBLE KEEPING FOOD DOWN Narrative: Kristine Moon is a 65-year-old Female former smoker with extensive medical history including vascular dementia, brittle diabetes, hypertension, hyperlipidemia, and lower GI bleed, stroke, and DC presents with generally feeling unwell for the past 2 days or so. She states that she had multiple episodes of vomiting 2 days ago and then a few yesterday along with once earlier today. She denies any blood or coffee-ground element to her vomiting and denies any pain. She has a poor appetite and feels weak. She has had no diarrhea and has no urinary complaints. She has no chest pain or shortness of breath and she denies any fever or chills. Patient on admitted demonstrated HGB 10.8, HCT 34.2, MCV 76, neutrophils 8051, sodium 134, BUN 24, creatinine 1.28-baseline, glucose 230, GFR 42 which is improved, CK-MB 6.2, initial troponin 0.03, repeat 0.101, lipase is low, ED consulted with tele stroke which deemed she was not appropriate for anticoagulation due to history of GI bleed and recommended symptomatic management. Upon admit patient was alert orientated at baseline for her vascular dementia, complaining of a mild headache and continued nausea, denied chest pain shortness of breath, in no distress. I personally reviewed patient's EKG normal sinus rhythm, rate 86, left anterior fascicular possible LVH, nonspecific ST and T-wave changes. Patient's last echo July of 2019. Patient admitted for NSTEMI Patient History Medical History Dow's esophagus with esophagitis CVA (cerebral vascular accident) Dementia Diabetes Gallbladder disease GERD (gastroesophageal reflux disease) Hyperlipidemia Hypertension Overactive bladder Subdural hematoma Upper GI bleed Surgical History History of cholecystectomy Tubal ligation status Family & Social History Family History Mother Heart disease Father No problems noted. Social History: household members significant other Prior Living Arrangements House Safety & Behavioral: Feels Safe in Current Yes Environment Been Physically Hurt or No Threatened By a Person Suicidal Ideation Description None Suicide Plan Description No Plan Tobacco & Substance use: Tobacco type cigarettes,cannabis/marijuana Smoking Status Former smoker Smoking packs per day 1 alcohol intake former alcohol intake frequency holiday/special occasion Substance Use Type marijuana Meds Home Medications and Allergies Home Medications Medication Instructions Recorded Confirmed Type cholecalciferol (vitamin D3) 25 1,000 unit PO BID 10/08/17 01/16/21 History mcg (1,000 unit) capsule (Vitamin D3) insulin aspart U-100 100 unit/mL 1 dose SUBCUT QIDACHS 10/08/17 01/16/21 History (3 mL) subcutaneous pen (Novolog Flexpen U-100 Insulin aspart) cyanocobalamin (vitamin B-12) 1,000 mcg PO DAILY 08/02/19 12/14/20 History 1,000 mcg tablet sucralfate 1 gram tablet 1 g PO QID 08/02/19 12/14/20 History pantoprazole 40 mg tablet,delayed 20 mg PO BID 12/26/19 12/14/20 History release amlodipine 10 mg tablet 10 mg PO DAILY 12/14/20 12/14/20 History lisinopril 20 mg tablet 20 mg PO DAILY 12/14/20 12/14/20 History metoclopramide HCl 5 mg tablet 5 mg PO QAC 12/14/20 12/14/20 History (Reglan) oxybutynin chloride 5 mg tablet 5 mg PO DAILY 12/14/20 12/14/20 History levofloxacin 250 mg tablet 250 mg PO Q24H #7 tab 12/15/20 Rx nystatin 100,000 unit/gram topical 1 applic TOPICAL BID #15 g 12/23/20 Rx ointment Allergies Allergy/AdvReac Type Severity Reaction Status Date / Time Iodine and Iodide Containing Allergy Unknown Verified 01/15/21 18:26 Produc [IODINE AND IODIDE CONTAINING PRODUC] latex [LATEX] Allergy Unknown Verified 01/15/21 18:26 Review of Systems Review of Systems Narrative: All 12 point systems reviewed with the patient and are negative except otherwise documented. Exam Vital Signs (past 8 hours): - 01/15/21 21:30 01/15/21 22:00 01/15/21 22:30 Temperature Pulse Rate 75 75 76 Respiratory Rate 19 21 26 H Blood Pressure Pulse Oximetry 98 98 99 01/15/21 23:00 01/15/21 23:30 01/16/21 00:05 Temperature 97.2 F L Pulse Rate 74 69 67 Respiratory Rate 20 21 18 Blood Pressure 179/93 H Pulse Oximetry 98 99 99 01/16/21 02:24 01/16/21 04:30 Temperature 97.1 F L Pulse Rate 80 Respiratory Rate 18 Blood Pressure 160/90 H Pulse Oximetry 99 100 Oxygen Delivery Method Room Air Oxygen Flow Rate 0 Narrative Exam Narrative: General: Patient is a thin frail female in no distress at this time. HEENT: Normocephalic, atraumatic, extraocular muscles intact, oral pharynx is clear and mucous membranes are moist. Neck is supple and symmetric, trachea is midline, no adenopathy, no thyroid enlargement, nontender, no masses palpated. Negative for JVD Chest: Normal AP diameter and contour without kyphoscoliosis, no nasal flaring, retractions, or tachypneic labored Lungs: Auscultation of all lung cuevas are clear without adventitious sounds, wheezes, rhonchi, or rales. Cardio: regular rate and rhythm without murmur, rubs, or gallops, no carotid bruit, no cardiac pulsations present. Abdomen: Soft nontender, negative for organomegaly, or masses. Bowel sounds are present in all 4 quadrants without guarding or rebound, no CVA tenderness. Musculoskeletal: Extremities no deformity, crepitus, effusions, cyanosis, clubbing or edema present. Full range of motion intact radial and pedal pulses are normal. Skin: Warm dry and intact without rashes, ulcerations or petechiae. Neuro: Alert and orientated x 2 to person and hospital-patient's baseline, global weakness which is patient's baseline, sensation to touch intact, no gross deficits noted of cranial nerves. Psych: Patient has a well-kept appearance, appropriate affect, calm resting comfortably. Objective Labs Result Diagrams: 01/15/21 19:20 01/16/21 00:30 Labs: Laboratory Results - last 24 hr 01/15/21 01/15/21 01/15/21 19:20 19:20 21:30 WBC 9.7 RBC 4.46 Hgb 10.8 L Hct 34.2 L MCV 76.7 L MCH 24.3 L MCHC 31.7 RDW 16.3 H Plt Count 292 Neut % (Auto) Not Reportable Lymph % (Auto) Not Reportable [place] % (Auto) Not Reportable Eos % (Auto) Not Reportable Baso % (Auto) Not Reportable Lymph # (Auto) Not Reportable [place] # (Auto) Not Reportable Baso # (Auto) Not Reportable Total Counted 100 Seg Neutrophils % 80.0 H Band Neutrophils % 3.0 Lymphocytes % (Manual) 13.0 L Monocytes % (Manual) 4.0 Neutrophils # (Manual) 8051 H Differential Comment RBC Morphology See below Microcytosis 2+ H Sodium 134 L Potassium 3.6 Chloride 103 Carbon Dioxide 22 BUN 24 H Creatinine 1.28 H Estimated GFR 42.0 L BUN/Creatinine Ratio 18.8 Glucose 230 H Calcium 8.8 Magnesium Total Bilirubin 1.0 AST 39 H ALT 15 Alkaline Phosphatase 86 Total Creatine Kinase 101 CK-MB (CK-2) 6.20 H CK-MB (CK-2) Rel Index 6.1 H* Troponin I 0.103 H 0.101 H NT-Pro-B Natriuret Pep Total Protein 6.9 Albumin 3.4 L Globulin 3.5 Albumin/Globulin Ratio 1.0 Triglycerides Cholesterol LDL Cholesterol, Calc HDL Cholesterol Lipase 11 L SARS-CoV-2 (PCR) 01/15/21 01/15/21 01/16/21 21:30 23:45 00:30 WBC RBC Hgb Hct MCV MCH MCHC RDW Plt Count Neut % (Auto) Lymph % (Auto) [place] % (Auto) Eos % (Auto) Baso % (Auto) Lymph # (Auto) [place] # (Auto) Baso # (Auto) Total Counted Seg Neutrophils % Band Neutrophils % Lymphocytes % (Manual) Monocytes % (Manual) Neutrophils # (Manual) Differential Comment RBC Morphology Microcytosis Sodium 135 L Potassium 3.3 L Chloride 104 Carbon Dioxide 25 BUN 23 H Creatinine 1.38 H Estimated GFR 38.5 L BUN/Creatinine Ratio 16.7 Glucose 170 H Calcium 8.6 Magnesium 1.8 Total Bilirubin 0.8 AST 30 ALT 12 Alkaline Phosphatase 93 Total Creatine Kinase CK-MB (CK-2) CK-MB (CK-2) Rel Index Troponin I 0.112 H NT-Pro-B Natriuret Pep 91795 H Total Protein 6.2 L Albumin 2.9 L Globulin 3.3 Albumin/Globulin Ratio 0.9 L Triglycerides 162 H Cholesterol 226 H LDL Cholesterol, Calc 138 H HDL Cholesterol 56 Lipase SARS-CoV-2 (PCR) Negative Assessment & Plan Assessment & Plan narrative: Kristine Moon is a 65-year-old Female former smoker with extensive medical history including vascular dementia, brittle diabetes, hypertension, hyperlipidemia, and lower GI bleed, stroke, and DC presents with generally feeling unwell for the past 2 days or so with vomting and nausea. Patient admitted for NSTEMI,with elevated troponin. 1. NSTEMI, acute, with elevated tropinin, present on admission-patient asymptomatic and stable, in the setting of a history of stroke and myocardial infarction, present on admission -CK-MB 6.2, initial troponin 0.03, repeat 0.101, lipase is low, -ED consulted with tele stroke which deemed she was not appropriate for anticoagulation due to history of GI bleed and recommended symptomatic management. Upon -EKG normal sinus rhythm, rate 86, left anterior fascicular possible LVH, nonspecific ST and T-wave changes. Last echo July of 2019. EF 50-55% -Rule out myocardial ischemia, ACS, CAD, aortic dissection -sublingual nitro glycerin 0.4 mg PRN for CP. -PERC score:0, heart score:6 Monitor for hypertensive emergencies with acute end-organ damage, ventricular tachycardia, unstable SVT, hypertension, angina or DC, heart failure, renal function. -trend troponins, telemedicine,lipid panel, BNP - Goals: reducing blood pressure over 24-48 hours, not more than 25-30% in the 1st 24 hours. O2 to keep O2 sats greater than 92% potassium > 4 and Mag > 2 -echo ordered for tomorrow 2. Hyperlipidemia related to Insulin-dependent Type 2 diabetes, with hyperglycemia, acute on chronic, poorly controlled, present on admission - Difficult to reconcile with patient due to dementia. - admitted under DM protocol- continue lantus 9 units at night, continue sliding scale insulin for coverage . - Last A1c >10%, but with hypoglycemia. Recommend endocrine evaluation as an outpatient though control may be difficult with her baseline cognitive impairment. 3. Essential hypertension, uncontrolled, acute on chronic, present on admission - continue amlodipine 5. PUD, chronic, present on admission - continue home pantoprazole and sucralfate. 6. Vascular dementia, chronic, present on admission -patient at baseline at this time Code: Full Code surrogate decision maker: is the patient's spouse. DPOA is scanned into chart. DVT/VTE: Tele stroke consult recommended against medication anticoagulation, SCDs only Disposition: Estimated length of stay greater than 2 midnight I have utilized all available immediate resources to obtain, update, or review the patient's current medications. I confirmed that the patient's advanced care plan is present, Code status is documented and/or surrogate decision maker is listed in the patient's medical record. Quality VTE Deep Vein Thrombosis/Pulmonary Embolism Present on Admission: Yes
[2021-01-16 08:57] LABS: Add Manual Diff / Slide Review NO; Basophils Absolute Auto 100 /uL (0-100); Basophils Percent Auto 0.9 % (0-2); Eosinophils Absolute Auto 100 /uL (0-450); Eosinophils Percent Auto 0.8 % (2-4); Hematocrit 34.5 % (36-46); Lymphocytes Absolute Auto 1600 /uL (1100-4500); Lymphocytes Percent Auto 19.2 % (25-40); Mean Corpuscular HGB Conc 31.8 % (30-36); Mean Corpuscular Hemoglobin 24.7 PG (26-34); Mean Corpuscular Volume 77.6 fL (80-100); Monocytes Absolute Auto 700 /uL (0-900); Monocytes Percent Auto 8.1 % (3-14); Neutrophils Absolute Auto 5800 /uL (1500-7000); Platelet Count 272 X10^3/uL (150-400); Red Blood Cell Count 4.45 X10^6/uL (4.0-5.2); Red Cell Distribution Width 16.3 % (11.6-14.8); White Blood Cell Count 8.1 X10^3/uL (4.5-11.0)
[2021-01-16 09:04] LABS: Prothrombin Time 11.4 SECONDS (10.1-12.7)
[2021-01-16] MEDS: SODIUM CHLORIDE 0.9% FLUSH 10 ML IV ×2 (09:15→22:51)
[2021-01-16 09:24] LABS: Troponin I 0.106 ng/mL (0.01-0.034)
[2021-01-16] MEDS: AMLODIPINE 5 MG TABLET 10 MG PO (10:11)
[2021-01-16] MEDS: POTASSIUM CHLORIDE 20 MEQ TAB 40 MEQ PO (10:11)
[2021-01-16] MEDS: lisinopriL 20 MG TABLET PO (10:11)
[2021-01-16] MEDS: PANTOPRAZOLE DR 40 MG TABLET PO (10:11)
[2021-01-16] MEDS: INSULIN LISPRO 100 UNIT/ML 3ML VIAL SUBCUT ×2 (12:00→17:33)
--- NOTE | 2021-01-16 13:34 | CM.DANOTE ---
Patient is a 65 yo female who was admitted on 01/15/21 for Nausea. Pt has [facility] and [facility] for insurance and her PCP is now Dr. Villanueva in [place]. EMR was reviewed. Per MD, pt with hx of vascular dementia and brittle diabetes and hx of CVA. Admitted now for NSTEMI and to have an Echo. Per MD, pt no longer nauseous so will advance diet and check labs prior to PT being ordered for eval. Pt was last admitted on 12/15/20 and was able to d/c home with Sig Other. Pt admitted Dec 2019 last year and discharged to [facility]. Copy of COVID vaccination card made and scanned into pt chart. SW met bedside with pt and Sig Other, pt with SLUMS of around 03/18 and not able to provide accurate historical information, and Sig Other Pablo confirmed that they still live at home in [place] together and pt now uses a walker for ambulation and occasionally furniture surfs at home. Pt no longer Medicaid [employer] but has Medicaid as well as Medicare. [facility] and Sig Other felt that SNF went well last year for care. Pt has [facility] 5 days a week for 4 hrs a day through [facility] and Elsa at [facility] manages pt's caregivers. Preference is home if safe and PT may be ordered pending new lab results to determine if pt stable for working with PT. Cardiology to be consulted. Plan: SW to follow closely to determine if pt back to baseline for safe d/c back home with Sig Other Pablo and [facility]. THALIA Oscar Discharge Planning/Care Management CM Discharge Assessment Start: 01/16/21 13:31 Freq: Status: Active Protocol: Document 01/16/21 13:31 BF (Rec: 01/16/21 13:34 BF [id number]) Discharge Planning Assessment Assigned Semiconductor Engineer THALIA Altamirano DPOA/Assigned Designee Name Sig Other Pablo Contact Information [phone] Advance Directives? Yes: DPOA, CPR RESUSCITATION Advance Directives on File Yes History Provided By Patient,Significant Other, Medical Record Has Patient been admitted in last 30 No days? Prior Living Arrangements House Household Members significant other Type of transporation used prior to Relies on Others admit Willing to Return to Facility? Lives at home Independent with ADL's No Is patient alert and oriented? No Needs Assistance With Meal Prep,Managing Medications ,Home Chores / Shopping Caregiver for Another No Comment Has [facility] through [facility] Already Rented / Owned FWW / Walker Patient/Family Preference Home with Home Health Comment Pending PT eval Barriers to Discharge No Discharge Plan Home with Home Health Referrals Initiated Home Health Additional Comment pending PT eval and recommendations, hx of Kay MERRITT Whiteboard Updated in Patient Room with Yes name and ext. # of Semiconductor Engineer Review Status In Process Please Provide Date Initial DC 01/16/21 Assessment Was Performed Next Review Type Continued Stay Review
[2021-01-16 14:55] LABS: Hemoglobin A1C% w Est Avg Glu 10.5 % (4.0-6.0)
--- NOTE | 2021-01-16 15:13 | PC.NURSE ---
A&Ox2. Was oriented to self but not to situation, date or place. She has a history of dementia and can be forgetful and confused at times. Denies chest pain or any other pain this shift but did have mild nausea throughout the shift. Incontinent of urine, some maceration and redness of groin and buttocks, applied barrier cream to area with brief changes. B, 355 - alerted provider of later and was given 5 units ss insulin. Call light within reach, bed low. Partner at bedside.
--- NOTE | 2021-01-16 19:43 | P.PN_ITS ---
Subjective Subjective Interval history: Patient reports no further nausea or vomiting. She has a poor appetite and did not eat much breakfast or lunch. Per her , patient has labile blood sugars and sometimes will be greater than 500. Her insulin has been adjusted to prevent hypoglycemia. Patient denies any chest pain. Exam Vital Signs (past 8 hours): - 01/16/21 12:00 01/16/21 14:00 01/16/21 15:45 Temperature 96.7 F L 98.1 F Pulse Rate 67 82 Respiratory Rate 18 18 Blood Pressure 151/84 H 152/87 H Pulse Oximetry 98 98 98 01/16/21 18:00 Temperature Pulse Rate Respiratory Rate Blood Pressure Pulse Oximetry 99 Oxygen Delivery Method Room Air Oxygen Flow Rate 0 Narrative Exam Narrative: Pleasant female in no acute distress Resp Other: Clear to ausculatation Cardio Other: RRR nl Sl S2 GI Other: Abd: soft/ non tender/ non distended Extrem Other: no edema Objective Labs Result Diagrams: 01/16/21 08:45 01/16/21 00:30 Labs: Laboratory Results - last 24 hr 01/15/21 01/15/21 01/15/21 19:20 19:20 21:30 WBC RBC Hgb Hct MCV MCH MCHC RDW Plt Count Neut % (Auto) Lymph % (Auto) [place] % (Auto) Eos % (Auto) Baso % (Auto) Neut # (Auto) Lymph # (Auto) [place] # (Auto) Eos # (Auto) Baso # (Auto) Total Counted 100 Seg Neutrophils % 80.0 H Band Neutrophils % 3.0 Lymphocytes % (Manual) 13.0 L Monocytes % (Manual) 4.0 Neutrophils # (Manual) 8051 H Differential Comment RBC Morphology See below Microcytosis 2+ H PT INR Sodium Potassium Chloride Carbon Dioxide BUN Creatinine Estimated GFR BUN/Creatinine Ratio Glucose Hemoglobin A1c Calcium Magnesium Total Bilirubin AST ALT Alkaline Phosphatase CK-MB (CK-2) 6.20 H CK-MB (CK-2) Rel Index 6.1 H* Troponin I 0.103 H 0.101 H NT-Pro-B Natriuret Pep Total Protein Albumin Globulin Albumin/Globulin Ratio Triglycerides Cholesterol LDL Cholesterol, Calc HDL Cholesterol SARS-CoV-2 (PCR) 01/15/21 01/15/21 01/16/21 21:30 23:45 00:30 WBC RBC Hgb Hct MCV MCH MCHC RDW Plt Count Neut % (Auto) Lymph % (Auto) [place] % (Auto) Eos % (Auto) Baso % (Auto) Neut # (Auto) Lymph # (Auto) [place] # (Auto) Eos # (Auto) Baso # (Auto) Total Counted Seg Neutrophils % Band Neutrophils % Lymphocytes % (Manual) Monocytes % (Manual) Neutrophils # (Manual) Differential Comment RBC Morphology Microcytosis PT INR Sodium 135 L Potassium 3.3 L Chloride 104 Carbon Dioxide 25 BUN 23 H Creatinine 1.38 H Estimated GFR 38.5 L BUN/Creatinine Ratio 16.7 Glucose 170 H Hemoglobin A1c Calcium 8.6 Magnesium 1.8 Total Bilirubin 0.8 AST 30 ALT 12 Alkaline Phosphatase 93 CK-MB (CK-2) CK-MB (CK-2) Rel Index Troponin I 0.112 H NT-Pro-B Natriuret Pep 17537 H Total Protein 6.2 L Albumin 2.9 L Globulin 3.3 Albumin/Globulin Ratio 0.9 L Triglycerides 162 H Cholesterol 226 H LDL Cholesterol, Calc 138 H HDL Cholesterol 56 SARS-CoV-2 (PCR) Negative 01/16/21 01/16/21 01/16/21 08:45 08:45 08:45 WBC 8.1 RBC 4.45 Hgb 11.0 L Hct 34.5 L MCV 77.6 L MCH 24.7 L MCHC 31.8 RDW 16.3 H Plt Count 272 Neut % (Auto) 71.0 Lymph % (Auto) 19.2 L [place] % (Auto) 8.1 Eos % (Auto) 0.8 L Baso % (Auto) 0.9 Neut # (Auto) 5800 Lymph # (Auto) 1600 [place] # (Auto) 700 Eos # (Auto) 100 Baso # (Auto) 100 Total Counted Seg Neutrophils % Band Neutrophils % Lymphocytes % (Manual) Monocytes % (Manual) Neutrophils # (Manual) Differential Comment RBC Morphology Microcytosis PT 11.4 INR 1.0 Sodium Potassium Chloride Carbon Dioxide BUN Creatinine Estimated GFR BUN/Creatinine Ratio Glucose Hemoglobin A1c Calcium Magnesium Total Bilirubin AST ALT Alkaline Phosphatase CK-MB (CK-2) CK-MB (CK-2) Rel Index Troponin I 0.106 H NT-Pro-B Natriuret Pep Total Protein Albumin Globulin Albumin/Globulin Ratio Triglycerides Cholesterol LDL Cholesterol, Calc HDL Cholesterol SARS-CoV-2 (PCR) 01/16/21 08:45 WBC RBC Hgb Hct MCV MCH MCHC RDW Plt Count Neut % (Auto) Lymph % (Auto) [place] % (Auto) Eos % (Auto) Baso % (Auto) Neut # (Auto) Lymph # (Auto) [place] # (Auto) Eos # (Auto) Baso # (Auto) Total Counted Seg Neutrophils % Band Neutrophils % Lymphocytes % (Manual) Monocytes % (Manual) Neutrophils # (Manual) Differential Comment RBC Morphology Microcytosis PT INR Sodium Potassium Chloride Carbon Dioxide BUN Creatinine Estimated GFR BUN/Creatinine Ratio Glucose Hemoglobin A1c 10.5 H Calcium Magnesium Total Bilirubin AST ALT Alkaline Phosphatase CK-MB (CK-2) CK-MB (CK-2) Rel Index Troponin I NT-Pro-B Natriuret Pep Total Protein Albumin Globulin Albumin/Globulin Ratio Triglycerides Cholesterol LDL Cholesterol, Calc HDL Cholesterol SARS-CoV-2 (PCR) [facility] Medical History Dow's esophagus with esophagitis CVA (cerebral vascular accident) Dementia Diabetes Gallbladder disease GERD (gastroesophageal reflux disease) Hyperlipidemia Hypertension Overactive bladder Subdural hematoma Upper GI bleed Surgical History History of cholecystectomy Tubal ligation status Family History Mother Heart disease Father No problems noted. Social History household members: significant other Smoking Status: Former smoker alcohol intake: former Assessment & Plan Assessment & Plan narrative: kingsley Moon is a 65-year-old Female former smoker with extensive medical history including vascular dementia, brittle diabetes, hypertension, hyperlipidemia, and lower GI bleed, stroke, and OH presents with generally feeling unwell for the past 2 days or so with vomting and nausea. Patient admitted for NSTEMI,with elevated troponin. 1. Elevated Troponin- No chest pain, EKG no significant [facility] [place] changes, in the setting of renal iinsufficiency, doubt OH Suspect Demand Ischemia echo- Mild concentric left ventricular hypertrophy with ejection fraction 60- 65%. Diastolic parameters suggest a relaxation abnormality of the left ventricle, consistent with probable normal filling pressures.Mild aortic regurgitation.Mild mitral annular calcification. The ascending aorta is mild-moderately enlarged (4.2 cm). Comparison is made with the echocardiogram of 08/19/2020, there has been no significant change. 2. Hyperlipidemia related to Insulin-dependent Type 2 diabetes, with hyperglycemia, acute on chronic, poorly controlled, present on admission - Difficult to reconcile with patient due to dementia. - admitted under DM protocol- continue lantus 9 units at night, continue sliding scale insulin for coverage . - Last A1c >10%, but with hypoglycemia. Recommend endocrine evaluation as an outpatient though control may be difficult with her baseline cognitive impairment. 3. Essential hypertension, uncontrolled, acute on chronic, present on admission - continue amlodipine 5. PUD, chronic, present on admission - continue home pantoprazole and sucralfate. 6. Vascular dementia, chronic, present on admission -patient at baseline at this time 8. Diabetic Gastroparesis-likely worsening by elevated sugars 9. Type 2 Diabetes- poorly controlled, will increase lantus and continue SSI I have utilized all available resources to review update and confirm current medications Quality VTE Deep Vein Thrombosis/Pulmonary Embolism Present on Admission: Yes
[2021-01-16] MEDS: ATORVASTATIN 20 MG TABLET 40 MG PO (22:44)
[2021-01-16] MEDS: INSULIN GLARGINE 100 UNIT/ML 3ML PEN 10 UNIT SUBCUT (22:46)
--- NOTE | 2021-01-17 02:41 | PC.NURSE ---
Addendum entered by Katie Samano R.N. 01/17/21 06:58: Weight up 4.5kg but was down 7kg yesterday so fairly stable. Appetite, however, has been poor. Original Note: Patient is oriented to self and birthdate. Stated age is 46 and she is on a boat. Respirations shallow but breath sounds CTA with RA sat of 95%. HRR with telemetry reading of SR. Denies nausea. BT present and abdomen is soft. Denies dysuria, frequency or urgency with urination. Is able to turn self in bed and gets up to bathroom with walker and 1 assist. Denies pain. Wearing bilateral calf SCD's. Fall risk score is high and bed alarm is activated.
[2021-01-17 05:00] VITALS: BP 132/81; PULSE 64; RESP 18; TEMP 36.7; O2SAT 98
[2021-01-17] MEDS: PANTOPRAZOLE DR 40 MG TABLET PO (06:27)
[2021-01-17 06:55] LABS: Add Manual Diff / Slide Review NO; Basophils Absolute Auto 0 /uL (0-100); Basophils Percent Auto 0.5 % (0-2); Eosinophils Absolute Auto 100 /uL (0-450); Eosinophils Percent Auto 1.7 % (2-4); Hemoglobin 9.1 g/dL (12.0-16.0); Lymphocytes Absolute Auto 2200 /uL (1100-4500); Lymphocytes Percent Auto 31.7 % (25-40); Mean Corpuscular HGB Conc 32.3 % (30-36); Mean Corpuscular Hemoglobin 24.9 PG (26-34); Monocytes Absolute Auto 700 /uL (0-900); Monocytes Percent Auto 10.3 % (3-14); Neutrophils Absolute Auto 3800 /uL (1500-7000); Neutrophils Percent Auto 55.8 % (50-75); Platelet Count 233 X10^3/uL (150-400); Red Blood Cell Count 3.64 X10^6/uL (4.0-5.2); Red Cell Distribution Width 16.1 % (11.6-14.8); White Blood Cell Count 6.9 X10^3/uL (4.5-11.0)
[2021-01-17 07:02] LABS: Alanine Aminotransferase 11 IU/L (<35); Albumin 2.4 g/dL (3.5-5.0); Albumin Globulin Ratio 0.8 (1.0-2.8); Alkaline Phosphatase 62 U/L (38-126); Aspartate Aminotransferase 32 IU/L (14-36); BUN Creatinine Ratio 16.9 (6-22); Bilirubin Total 0.7 mg/dL (0.2-1.3); Blood Urea Nitrogen 22 mg/dL (7-17); Calcium 8.2 mg/dL (8.4-10.2); Carbon Dioxide 25 mmol/L (22-32); Chloride 108 mmol/L (98-107); Estimated Glomerular Filt Rate 41.2 mL/min (>60); Glucose 101 mg/dL (80-110); HEMOLYSIS 38 (0-50); Potassium 3.5 mmol/L (3.4-5.1); Sodium 134 mmol/L (137-145); Total Protein 5.4 g/dL (6.3-8.2)
[2021-01-17 07:14] LABS: NT-proBNP (BNP-Adult 18+) 9710 pg/mL (<125); Troponin I 0.077 ng/mL (0.01-0.034)
[2021-01-17 07:36] VITALS: O2SAT 98
[2021-01-17 09:00] VITALS: BP 141/78; PULSE 57; RESP 16; TEMP 36.1; O2SAT 97
--- NOTE | 2021-01-17 09:06 | P.DS_ITS ---
History of Present Illness History of Present Illness Chief complaint: TROUBLE KEEPING FOOD DOWN Narrative: Kristine Moon is a 65-year-old Female former smoker with extensive medical history including vascular dementia, brittle diabetes, hypertension, hyperlipidemia, and lower GI bleed, stroke, and LA presents with generally feeling unwell for the past 2 days or so. She states that she had multiple episodes of vomiting 2 days ago and then a few yesterday along with once earlier today. She denies any blood or coffee-ground element to her vomiting and denies any pain. She has a poor appetite and feels weak. She has had no diarrhea and has no urinary complaints. She has no chest pain or shortness of breath and she denies any fever or chills. Patient on admitted demonstrated HGB 10.8, HCT 34.2, MCV 76, neutrophils 8051, sodium 134, BUN 24, creatinine 1.28-baseline, glucose 230, GFR 42 which is impro chan, CK-MB 6.2, initial troponin 0.03, repeat 0.101, lipase is low, ED consulted with tele stroke which deemed she was not appropriate for anticoagulation due to history of GI bleed and recommended symptomatic management. Upon admit patient was alert orientated at baseline for her vascular dementia, complaining of a mild headache and continued nausea, denied chest pain shortness of breath, in no distress. I personally reviewed patient's EKG normal sinus rhythm, rate 86, left anterior fascicular possible LVH, nonspecific ST and T-wave changes. Patient's last echo July of 2019. Patient admitted for NSTEMI Discharge Providers Provider Date of admission: 01/15/21 23:10 Discharge Date: 01/17/21 Primary care physician: Jyoti Streeter MD Consults: 01/16/21 15:53 Consult to Dietitian, Adult Routine Comment: poor appetite Reason For Exam: diabetic Discharge provider: Eliana Wolf MD Summary Hospital Course Discharge Diagnosis: 1. Nausea and vomiting most likely diabetic gastroparesis, now resolved 2. Elevated troponin, suspect demand ischemia. No evidence of NSTEMI are type 2 myocardial infarction, echocardiogram obtained revealed no wall motion abnormalities and was empty unchanged from prior echo 3. Per hypertension 4. Poorly controlled diabetes 5. Urinary incontinence 6. GERD 7. Chronic kidney disease stage 3 Hospital Course: Patient was admitted to the hospital for intractable nausea and vomiting. Upon admission the patient had no further nausea and vomiting. Her diet was advanced. She tolerated without any difficulty. The patient complained of no chest pain. She had no shortness of breath. Patient's blood sugars were erratic during the hospital stay. Blood sugars were markedly 355- 170. Patient's Lantus will be increased from 10 units to 12 units. She will continue with her sliding scale of insulin. Reglan was added to her regimen which she was taking at home. In addition the patient will be seen by dietary. Both her and her will be counseled on appropriate diet based on probability of gastroparesis. The patient will continue to monitor blood sugars and follow-up with her PCP as an outpatient. Of note the patient has had brittle diabetes, she has had either hypo or hyperglycemic. In addition her diet and her appetite appears to be unstable which is likely a factor. Will arrange for home health nursing for her and her . The patient will be seen by dietary. Overall she appears back to her baseline and deemed appropriate for discharge home. During the hospital stay the patient's troponin was elevated at 0.101 peaked at 0.106 and then decreased 2.0 7 7. During the hospital stay the patient had no complaints of chest pain. She did have lipids obtained with an LDL cholesterol 138. Patient will be started on Lipitor as an outpatient Status at Discharge Cognitive/behavioral status at discharge: at baseline, confused Functional status at discharge: independent ambulation Overall status at discharge: patient is back to baseline Exam Vital Signs (past 8 hours): - 01/17/21 05:00 01/17/21 07:36 Temperature 98.0 F Pulse Rate 64 Respiratory Rate 18 Blood Pressure 132/81 Pulse Oximetry 98 98 Oxygen Delivery Method Room Air Oxygen Flow Rate 0 Narrative Exam Narrative: Pleasant female ill-appearing and somewhat confused Resp Other: Lungs: Clear to auscultation Cardio Other: Cardiac exam: Regular rate and rhythm normal S1-S2 with a 2/6 systolic ejection murmur GI Other: Abdomen: Soft nontender nondistended, no palpable masses, no board-like rigidity, no rebound tenderness Extrem Other: No edema Objective ECG Impression: Sinus rhythm, with no acute ST T wave abnormalities Labs Result Diagrams: 01/17/21 06:15 01/17/21 06:15 Labs: Laboratory Results - last 24 hr 01/16/21 01/16/21 01/16/21 08:45 08:45 08:45 WBC RBC Hgb Hct MCV MCH MCHC RDW Plt Count Neut % (Auto) Lymph % (Auto) Boyd % (Auto) Eos % (Auto) Baso % (Auto) Neut # (Auto) Lymph # (Auto) Boyd # (Auto) Eos # (Auto) Baso # (Auto) PT 11.4 INR 1.0 Sodium Potassium Chloride Carbon Dioxide BUN Creatinine Estimated GFR BUN/Creatinine Ratio Glucose Hemoglobin A1c 10.5 H Calcium Total Bilirubin AST ALT Alkaline Phosphatase Troponin I 0.106 H NT-Pro-B Natriuret Pep Total Protein Albumin Globulin Albumin/Globulin Ratio 01/17/21 01/17/21 06:15 06:15 WBC 6.9 RBC 3.64 L Hgb 9.1 L Hct 28.0 L MCV 77.0 L MCH 24.9 L MCHC 32.3 RDW 16.1 H Plt Count 233 Neut % (Auto) 55.8 Lymph % (Auto) 31.7 Boyd % (Auto) 10.3 Eos % (Auto) 1.7 L Baso % (Auto) 0.5 Neut # (Auto) 3800 Lymph # (Auto) 2200 Boyd # (Auto) 700 Eos # (Auto) 100 Baso # (Auto) 0 PT INR Sodium 134 L Potassium 3.5 Chloride 108 H Carbon Dioxide 25 BUN 22 H Creatinine 1.30 H Estimated GFR 41.2 L BUN/Creatinine Ratio 16.9 Glucose 101 Hemoglobin A1c Calcium 8.2 L Total Bilirubin 0.7 AST 32 ALT 11 Alkaline Phosphatase 62 Troponin I 0.077 H NT-Pro-B Natriuret Pep 9710 H Total Protein 5.4 L Albumin 2.4 L Globulin 3.0 Albumin/Globulin Ratio 0.8 L [facility] Medical History Dow's esophagus with esophagitis CVA (cerebral vascular accident) Dementia Diabetes Gallbladder disease GERD (gastroesophageal reflux disease) Hyperlipidemia Hypertension Overactive bladder Subdural hematoma Upper GI bleed Surgical History History of cholecystectomy Tubal ligation status Family History Mother Heart disease Father No problems noted. Social History household members: significant other Smoking Status: Former smoker alcohol intake: former Discharge Assessment & Plan Assessment and Plan Assessment: 1. Nausea and vomiting, suspect diabetic gastroparesis 2. Type 2 diabetes poorly controlled 3. Hyperlipidemia 4. Hypertension 5. Demand ischemia, elevated troponin but no symptoms 6. GERD Plan of Treatment: Medications as prescribed Home health RN and PT visit Follow-up with primary care provider in 1 week Discharge Plan Discharge Plan Patient Disposition: Home Discharge orders & Medications Prescriptions: New atorvastatin [Lipitor] 20 mg Tablet 40 mg PO BEDTIME Qty: 30 RF: 0 Lantus Solostar U-100 Insulin 100 unit/mL (3 mL) insulin pen 12 unit SUBCUT QPM Qty: 15 RF: 0 Continued cholecalciferol (vitamin D3) [Vitamin D3] 1,000 unit Capsule 1,000 unit PO BID RF: 0 insulin aspart U-100 [Novolog Flexpen U-100 Insulin] 100 UNIT/1 ML insulin pen 1 dose subcut QIDACHS RF: 0 sucralfate [Carafate] 1 gram Tablet 1 g PO QID RF: 0 cyanocobalamin (vitamin B-12) [Vitamin B-12] 1,000 mcg Tablet 1,000 mcg PO DAILY RF: 0 pantoprazole [Protonix] 40 mg tablet,delayed release (DR/EC) 20 mg PO BID RF: 0 lisinopril 20 mg Tablet 20 mg PO DAILY RF: 0 oxybutynin chloride 5 mg Tablet 5 mg PO DAILY RF: 0 metoclopramide HCl [Reglan] 5 mg Tablet 5 mg PO QAC RF: 0 amlodipine 10 mg Tablet 10 mg PO DAILY RF: 0 Follow up/Referrals: Jyoti Streeter MD [Primary Care Provider] - Discharge Data Primary Care Provider: Jyoti Streeter Attending Provider: Marnie Douglas VTE Deep Vein Thrombosis/Pulmonary Embolism Present on Admission: Yes
[2021-01-17 09:17] VITALS: BP 141/78; PULSE 60
[2021-01-17] MEDS: lisinopriL 20 MG TABLET PO (09:17)
[2021-01-17] MEDS: SODIUM CHLORIDE 0.9% FLUSH 10 ML IV (09:18)
[2021-01-17] MEDS: AMLODIPINE 5 MG TABLET 10 MG PO (09:18)
[2021-01-17 09:33] VITALS: O2SAT 97
--- NOTE | 2021-01-17 11:04 | DIET.PN1 ---
Dietary Progress Note Assessment: 65 y/o F admitted for NSTEMI with h/o T2DM (10.5% HgA1c) and gastroparesis. PMH of Dow's esophagus, cholecystectomy, GERD, GI bleed, and abdominal pain. Kristine has vascular dementia and her coordinates her care, medications, and meals. States they have been eating red meat to help with anemia, which could be exacerbating slow GI motility. Reports avoiding iron supplements due to h/o constipation. Reports frequent hypoglycemia below 50 mg/dL. Treats with protein foods, ie peanut butter, cheese, and eggs. No education on Rule of 15 for lows. If below 30 mg/dL, calls 911. States he still works and coordinating meals is difficult. Plans to get established with provider after discharge. Ht: 162.56 cm Wt: 55 kg BMI: 19.1 Last BM: 01/14/21 (01/16/21 01:23) Diet: 01/16/21 Lunch Carbohydrate Consistent Diet Diet Modifications: Carbohydrate level: Medium (3 CHO) Bedtime snack: Yes Percent of last meal consumed (last 48h) Percent Meal Consumed 75% 01/17/21 09:15 Labs: RBC 3.64 X10^6/uL (4.0-5.2) L 01/17/21 06:15 Hgb 9.1 g/dL (12.0-16.0) L 01/17/21 06:15 Hct 28.0 % (36-46) L 01/17/21 06:15 Creatinine 1.30 mg/dL (0.52-1.04) H 01/17/21 06:15 Hemoglobin A1c 10.5 % (4.0-6.0) H 01/16/21 08:45 NT-Pro-B Natriuret Pep 9710 pg/mL (<125) H 01/17/21 06:15 Nutrition Diagnosis: Altered GI function r/t hyperglycemia impacting gastroparesis aeb HgA1c 10.5% and GI s/s ; Nutrition and food related knowledge deficit r/t treating lows with protein aeb pt report Interventions: 1. Rule of 15 for hypoglycemia tx. Using appropriate quick carbs for lows. 2. Provided meal/snack examples for gastroparesis 3. Discussed gastroparesis basics: slow gut motility, liquid or soft foods 4. Reviewed OP diabetes ed resource, DM ed provider referral after established with care, and provided my card Monitoring/Evaluations: Plans to call DM ed next week.
--- NOTE | 2021-01-17 11:12 | PC.NURSE ---
A&O to self. Confused about situation, month, and year. BP elevated 141/78. Denies pain, n/v. IV removed. Discharge paperwork reviewed. Questions answered. Wheeled off of unit at 11:15. Partner driving home.
--- NOTE | 2021-01-17 11:32 | CM.DPC ---
DCP: continued: Case discussed in Team Rounds. Dr. Wolf stated she was stable for d/c and would benefit from seeing the community nutrition educator when her was present before she went home. A check in now that above plan was completed and pt left in company of her at about 1115.
== END 2021-01-17 11:10 | disposition home or self-care (01) ==
LOC: ED 23:08 → AC 01-16 07:58
PROVIDERS: Internal Medicine; Admitting Provider Nurse Practitioner Family; Emergency Provider Emergency Medicine; PCP Family Medicine; Referring Provider Emergency Medicine; Visit Provider Nurse Practitioner Family
DX: I21.4 Non-ST elevation (NSTEMI) myocardial infarction (principal); R77.8 Other specified abnormalities of plasma proteins; E11.65 Type 2 diabetes mellitus with hyperglycemia; E11.43 Type 2 diabetes mellitus with diabetic autonomic (poly)neuropathy; K31.84 Gastroparesis; Z87.891 Personal history of nicotine dependence; K27.7 Chronic peptic ulcer, site unspecified, without hemorrhage or perforation; F01.50 Vascular dementia, unspecified severity, without behavioral disturbance, psychotic disturbance, mood disturbance, and anxiety; Z79.4 Long term (current) use of insulin; I10 Essential (primary) hypertension; E78.5 Hyperlipidemia, unspecified; Z86.73 Personal history of transient ischemic attack (TIA), and cerebral infarction without residual deficits; I25.2 Old myocardial infarction; Z20.822 Contact with and (suspected) exposure to COVID-19
CPT/HCPCS: 36415; 74022; 80053; 80061; 82550; 82553; 82962; 83036; 83690; 83735; 83880; 84484; 85007; 85025; 85610; 87077; 87086; 87635; 93005; 93306; 94760; 96361; 96372; 96374; 99284; C9803; G0378; J1815; J2405

== ENCOUNTER 2021-01-26 14:56 | Emergency (ER) | payer MEDICARE, MEDICAID, SELFPAY ==
[2021-01-16 01:23] VITALS: BMI 19.1
[2021-01-26] VITALS (11 sets, daily range): BP systolic 141–203; BP diastolic 81–95; PULSE 58–83; RESP 16–24; TEMP 36.7; O2SAT 97–100; BMI 21.9
--- NOTE | 2021-01-26 17:33 | DI.RAD.S_ITS ---
PROCEDURE: XR CHEST 2V INDICATIONS: Fatigue TECHNIQUE: 2 views of the chest were acquired. COMPARISON: [facility], CR, XR CHEST 1V, 09/18/2020, 20:11. FINDINGS: Surgical changes and devices: Left proximal humeral old healed fracture associated with lateral cortical sideplate with screws, in place and unchanged Lungs and pleura: Lungs are clear. No pleural effusions or pneumothorax. Mediastinum: Mediastinal contours are normal. Heart size is normal. Atherosclerotic vascular calcification noted in the aortic arch. Bones and chest wall: As above. Generalized decrease in osseous mineralization noted. IMPRESSION: No acute cardiopulmonary findings Approved by: Lucio Macias M.D. on 01/26/2021 at 17:37
[2021-01-26 18:15] LABS: Bacteria Urine None Seen
[2021-01-26 18:23] LABS: Appearance Urine UA CLEAR; Bilirubin Urine UA NEGATIVE (NEGATIVE); Color Urine UA YELLOW; Glucose Urine UA 1+ g/dL (Negative); Ketones Urine UA NEGATIVE (NEGATIVE); Leukocyte Esterase Urine UA NEGATIVE (NEGATIVE); Nitrite Urine UA NEGATIVE (Negative); Occult Blood Urine UA TRACE-LYSED (Negative); Protein Urine UA 3+ (Negative); Specific Gravity Urine UA <=1.005 (1.000-1.035); Urobilinogen Urine UA 0.2 E.U./dL (0.2)
[2021-01-26 18:31] LABS: Amorphous Sediment Urine 1+; Culture Indicated Urine Cult Not Indicated; RBC Urine 0-1/HPF (0-5/HPF); Squamous Epithelial Cell Urine 1-5 /HPF (0-5/HPF); WBC Urine 0-1/HPF (0-5/HPF)
--- NOTE | 2021-01-26 19:01 | ED_ITS ---
HPI - Nausea/Vomiting/Diarrhea <Roberto Carlos Patel PA-C - Last Filed: 01/26/21 20:28> General Chief complaint: Nausea/Vomiting/Diarrhea Stated complaint: Don't feel good at all - Nausea Time Seen by Provider: 01/26/21 17:12 Source: patient Mode of arrival: Wheelchair History of Present Illness HPI Narrative: 66-year-old female with past medical history NSTEMI, CVA, alcoholic pancreatitis, memory changes, poorly-controlled diabetes, hypertension, hyperlipidemia presents to the ED with 1 day nausea. Patient states that she has been feeling nauseous since this morning and in that she just does not feel good. Patient denies headache, shortness of breath, chest pain, cough, vomiting, abdominal pain, dysuria, diarrhea, constipation, hematochezia, lightheadedness, dizziness, syncope. Patient endorses that she gave up alcohol 2 years ago. Related Data Home Medications Medication Instructions Recorded Confirmed cholecalciferol (vitamin D3) 25 1,000 unit PO BID 10/08/17 01/16/21 mcg (1,000 unit) capsule (Vitamin D3) insulin aspart U-100 100 unit/mL 1 dose SUBCUT QIDACHS 10/08/17 01/16/21 (3 mL) subcutaneous pen (Novolog Flexpen U-100 Insulin aspart) cyanocobalamin (vitamin B-12) 1,000 mcg PO DAILY 08/02/19 01/16/21 1,000 mcg tablet (Vitamin B-12) sucralfate 1 gram tablet (Carafate) 1 g PO QID 08/02/19 01/16/21 pantoprazole 40 mg tablet,delayed 20 mg PO BID 12/26/19 01/16/21 release (Protonix) amlodipine 10 mg tablet 10 mg PO DAILY 12/14/20 01/16/21 lisinopril 20 mg tablet 20 mg PO DAILY 12/14/20 01/16/21 metoclopramide HCl 5 mg tablet 5 mg PO QAC 12/14/20 01/16/21 (Reglan) oxybutynin chloride 5 mg tablet 5 mg PO DAILY 12/14/20 01/16/21 Previous Rx's Medication Instructions Recorded atorvastatin 20 mg tablet (Lipitor) 40 mg PO BEDTIME #30 tab 01/17/21 insulin glargine 100 unit/mL (3 12 unit SUBCUT QPM #15 ml 01/17/21 mL) subcutaneous pen (Lantus Solostar U-100 Insulin) Allergies Allergy/AdvReac Type Severity Reaction Status Date / Time Iodine and Iodide Containing Allergy Unknown Verified 01/15/21 18:26 Produc [IODINE AND IODIDE CONTAINING PRODUC] latex [LATEX] Allergy Unknown Verified 01/15/21 18:26 Review of Systems <Roberto Carlos Patel PA-C - Last Filed: 01/26/21 20:28> Constitutional Constitutional: Denies chills, Reports fatigue, Denies fever(s), Denies frequent falls, Denies lethargy and Denies weakness Eyes Eyes: Denies change in vision, Denies eye discharge, Denies irritation and Denies loss of vision ENT Ears, Nose, Mouth, and Throat: Denies change in voice, Denies dizziness, Denies neck pain, Denies sore throat and Denies throat swelling Cardiovascular Cardiovascular: Denies chest pain, Denies irregular heart rhythm, Denies lightheadedness, Denies palpitations, Denies dyspnea, Denies dyspnea on exertion and Denies orthopnea Respiratory Respiratory: Denies cough, Denies dyspnea, Denies dyspnea on exertion and Denies wheezing Gastrointestinal Gastrointestinal: Denies abdominal pain, Denies change in bowel habits, Denies diarrhea, Reports nausea and Denies vomiting Musculoskeletal Musculoskeletal: Denies neck pain and Denies numbness Integumentary/Breasts Skin/Breast: Denies pruritus, Denies erythema, Denies rash and Denies wounds Neurologic Neurologic: Denies behavioral changes, Denies confusion, Denies dizziness, Denies frequent falls, Denies loss of vision, Denies numbness and Denies weakness Psychiatric Psychiatric: Denies anxiety, Denies behavioral changes, Denies confusion, Denies depression, Denies homicidal ideation and Denies suicidal ideation Endocrine Endocrine: Reports fatigue, Denies flushing and Denies palpitations Hematologic/Lymphatic Hematologic/Lymphatic: Denies easy bruising Allergic/Immunologic Allergic/Immunologic: Denies urticaria, Denies throat swelling and Denies wheezing Patient History <Roberto Carlos Patel PA-C - Last Filed: 01/26/21 20:28> Medical History Dow's esophagus with esophagitis CVA (cerebral vascular accident) Dementia Diabetes Gallbladder disease GERD (gastroesophageal reflux disease) Hyperlipidemia Hypertension Overactive bladder Subdural hematoma Upper GI bleed Surgical History History of cholecystectomy Tubal ligation status Family History Mother Heart disease Father No problems noted. Social History household members: significant other Smoking Status: Former smoker alcohol intake: former Smoking Status: Former smoker tobacco type: cigarettes alcohol intake frequency: holidays/special occasions only Alcohol type: hard liquor Substance Use Type: marijuana Exam <Roberto Carlos Patel PA-C - Last Filed: 01/26/21 20:28> Initial Vital Signs Initial Vital Signs: Vital Signs Temperature 98.1 F 01/26/21 15:37 Pulse Rate 83 01/26/21 15:37 Respiratory Rate 16 01/26/21 15:37 Blood Pressure 141/81 H 01/26/21 15:37 Pulse Oximetry 97 01/26/21 15:37 Const General: cooperative HENMT Head: normocephalic and atraumatic Ears: external ears normal and TM's normal bilaterally Nose: external nose normal and No nasal discharge Face and sinus: sinuses nontender, face symmetric, no sinus tenderness and No dry mucous membranes Mouth: oral mucosae normal and moist mucous membranes Teeth and gingiva: dentition normal Throat: tonsils normal and uvula midline Eyes General: appearance normal, both eyes and all related structures Eyelids: eyelids normal Conjunctivae: conjunctivae normal Sclera: sclerae normal Pupils: PERRL EOM: EOM intact bilaterally Neck Neck: normal visual inspection, trachea midline, No lymphadenopathy, No midline deformity and No JVD Lymphatic: No lymphedema Chest Chest: normal inspection of the chest Resp Effort & Inspection: normal respiratory effort, able to speak in complete sentences, no respiratory distress and no use of accessory muscles Auscultation: clear to auscultation bilaterally, no rales, no rhonchi and no wheezes Cardio Rate: regular rate Rhythm: regular rhythm Heart Sounds: no click, no gallops, no murmurs and no rubs Pulses: normal peripheral pulses GI Inspection: non-distended Palpation: soft, no hepatosplenomegaly, No guarding, No pulsatile mass and No tender Auscultation: normal bowel sounds Other: Palpable hernia in the epigastric region, which is unchanged per patient and her . Mild tenderness to palpation in the epigastric region. No rebound, guarding. Back/Spine/Pelvis Back: No CVA tenderness Cervical Spine: cervical ROM normal and No pain with cervical ROM Thoracic/Lumbar Spine: thoracic and lumbar spine normal to inspection Skin General: no rashes or lesions noted, No jaundice and No petechiae Neuro General: patient alert, patient oriented x3, gait normal and no focal motor deficits Speech: speech normal Extrem General: full ROM, no clubbing, cyanosis or edema, no pedal edema and no calf tenderness Psych Appearance: well kempt Mental Status: mental status grossly normal Attitude: cooperative Thought Content: normal and suicidality Judgment: judgment good <Brown Gonsales DO - Last Filed: 01/27/21 06:59> Initial Vital Signs Initial Vital Signs: Vital Signs Temperature 98.1 F 01/26/21 15:37 Pulse Rate 83 01/26/21 15:37 Respiratory Rate 16 01/26/21 15:37 Blood Pressure 141/81 H 01/26/21 15:37 Pulse Oximetry 97 01/26/21 15:37 Course <Roberto Carlos Patel PA-C - Last Filed: 01/26/21 20:28> Course Course Narrative: UA negative for UTI, labs within normal limits, lipase negative, troponin negative. Chest x-ray, EKG negative. Patient's symptoms improved after the GI cocktail. Repeat abdominal exam benign. Will discharge home with ED return precautions. Orders Ordered: Discontinued Medications Al Hydrox/Mg Hydrox/Simethicone 20 ml/ Lidocaine HCl 15 ml 0 ml PO NOW ONE Stop: 01/26/21 17:34 Last Admin: 01/26/21 19:38 Dose: 35 ml Documented by: DBROYLE Famotidine (Famotidine 20 Mg/2 Ml Vial) 20 mg IV NOW MIRIAM Sodium Chloride (Normal Saline 0.9%) 1,000 mls @ 1,000 mls/hr IV BOLUS ONE Stop: 01/26/21 18:34 Vital Signs Vital signs: Vital Signs - 8 hr 01/26/21 15:37 01/26/21 17:21 01/26/21 17:30 Temperature 98.1 F Pulse Rate 83 62 60 Respiratory Rate 16 Blood Pressure 141/81 H 193/95 H Pulse Oximetry 97 100 100 01/26/21 18:09 01/26/21 18:30 Temperature Pulse Rate 64 62 Respiratory Rate 17 Blood Pressure Pulse Oximetry 100 100 <Brown Gonsales DO - Last Filed: 01/27/21 06:59> Orders Ordered: Discontinued Medications Al Hydrox/Mg Hydrox/Simethicone 20 ml/ Lidocaine HCl 15 ml 0 ml PO NOW ONE Stop: 01/26/21 17:34 Last Admin: 01/26/21 19:38 Dose: 35 ml Documented by: RHONDA Famotidine (Famotidine 20 Mg/2 Ml Vial) 20 mg IV NOW MIRIAM Sodium Chloride (Normal Saline 0.9%) 1,000 mls @ 1,000 mls/hr IV BOLUS ONE Stop: 01/26/21 18:34 Vital Signs Vital signs: Vital Signs - 8 hr 01/26/21 15:37 01/26/21 17:21 01/26/21 17:30 Temperature 98.1 F Pulse Rate 83 62 60 Respiratory Rate 16 Blood Pressure 141/81 H 193/95 H Pulse Oximetry 97 100 100 01/26/21 18:09 01/26/21 18:30 Temperature Pulse Rate 64 62 Respiratory Rate 17 Blood Pressure Pulse Oximetry 100 100 MDM - Nausea/Vomiting/Diarrhea <Roberto Carlos Patel PA-C - Last Filed: 01/26/21 20:28> Medical Records Attestation: I reviewed the patient's medical records. Lab Data Attestation: I reviewed the patient's lab results. Lab results narrative: No UTI. Labs WNL. Lipase not elevated Result diagrams: 01/26/21 19:01/26/21 19:09 Labs: Lab Results 01/26/21 01/26/21 01/26/21 Range/Units 18:13 19:09 19:09 WBC 7.4 (4.5-11.0) X10^3/uL RBC 3.98 L (4.0-5.2) X10^6/uL Hgb 9.8 L (12.0-16.0) g/dL Hct 31.1 L (36-46) % MCV 78.2 L (80-100) fL MCH 24.6 L (26-34) PG MCHC 31.5 (30-36) % RDW 16.8 H (11.6-14.8) % Plt Count 210 (150-400) X10^3/uL Neut % (Auto) 72.1 (50-75) % Lymph % (Auto) 18.5 L (25-40) % Louisa % (Auto) 7.5 (3-14) % Eos % (Auto) 1.1 L (2-4) % Baso % (Auto) 0.8 (0-2) % Neut # (Auto) 5300 (7362-3974) /uL Lymph # (Auto) 1400 (4297-1906) /uL Louisa # (Auto) 600 (0-900) /uL Eos # (Auto) 100 (0-450) /uL Baso # (Auto) 100 (0-100) /uL Sodium 132 L (137-145) mmol/L Potassium 3.3 L (3.4-5.1) mmol/L Chloride 106 (98-107) mmol/L Carbon Dioxide 21 L (22-32) mmol/L BUN 24 H (7-17) mg/dL Creatinine 1.31 H (0.52-1.04) mg/dL Estimated GFR 40.7 L (>60) mL/min BUN/Creatinine Ratio 18.3 (6-22) Glucose 264 H D (80-110) mg/dL Calcium 8.4 (8.4-10.2) mg/dL Total Bilirubin 0.5 (0.2-1.3) mg/dL AST 25 (14-36) IU/L ALT 15 (<35) IU/L Alkaline Phosphatase 75 (38-126) U/L Troponin I 0.023 (0.01-0.034) ng/mL Total Protein 6.2 L (6.3-8.2) g/dL Albumin 3.0 L (3.5-5.0) g/dL Globulin 3.2 (1.7-4.1) g/dL Albumin/Globulin Ratio 0.9 L (1.0-2.8) Lipase 18 L (23-300) U/L Urine Color Yellow Urine Appearance Clear Urine pH 6.0 (4.5-8.0) Ur Specific [place] <=1.005 (1.000-1.035) Urine Protein 3+ H (Negative) Urine Glucose (UA) 1+ H (Negative) g/dL Urine Ketones Negative (NEGATIVE) Urine Occult Blood Trace-lysed (Negative) Urine Nitrate Negative (Negative) Urine Bilirubin Negative (NEGATIVE) Urine Urobilinogen 0.2 (0.2) E.U./dL Ur Leukocyte Esterase Negative (NEGATIVE) Urine RBC 0-1/hpf (0-5/HPF) Urine WBC 0-1/hpf (0-5/HPF) Ur Squamous Epith Cells 1-5 /hpf (0-5/HPF) Amorphous Sediment 1+ Urine Bacteria None seen (None) Ur Culture Indicated? Cult not indicated SARS-CoV-2 (PCR) (Negative) 01/26/21 Range/Units 19:20 WBC (4.5-11.0) X10^3/uL RBC (4.0-5.2) X10^6/uL Hgb (12.0-16.0) g/dL Hct (36-46) % MCV (80-100) fL MCH (26-34) PG MCHC (30-36) % RDW (11.6-14.8) % Plt Count (150-400) X10^3/uL Neut % (Auto) (50-75) % Lymph % (Auto) (25-40) % Louisa % (Auto) (3-14) % Eos % (Auto) (2-4) % Baso % (Auto) (0-2) % Neut # (Auto) (3572-1693) /uL Lymph # (Auto) (8248-4499) /uL Louisa # (Auto) (0-900) /uL Eos # (Auto) (0-450) /uL Baso # (Auto) (0-100) /uL Sodium (137-145) mmol/L Potassium (3.4-5.1) mmol/L Chloride (98-107) mmol/L Carbon Dioxide (22-32) mmol/L BUN (7-17) mg/dL Creatinine (0.52-1.04) mg/dL Estimated GFR (>60) mL/min BUN/Creatinine Ratio (6-22) Glucose (80-110) mg/dL Calcium (8.4-10.2) mg/dL Total Bilirubin (0.2-1.3) mg/dL AST (14-36) IU/L ALT (<35) IU/L Alkaline Phosphatase (38-126) U/L Troponin I (0.01-0.034) ng/mL Total Protein (6.3-8.2) g/dL Albumin (3.5-5.0) g/dL Globulin (1.7-4.1) g/dL Albumin/Globulin Ratio (1.0-2.8) Lipase (23-300) U/L Urine Color Urine Appearance Urine pH (4.5-8.0) Ur Specific [place] (1.000-1.035) Urine Protein (Negative) Urine Glucose (UA) (Negative) g/dL Urine Ketones (NEGATIVE) Urine Occult Blood (Negative) Urine Nitrate (Negative) Urine Bilirubin (NEGATIVE) Urine Urobilinogen (0.2) E.U./dL Ur Leukocyte Esterase (NEGATIVE) Urine RBC (0-5/HPF) Urine WBC (0-5/HPF) Ur Squamous Epith Cells (0-5/HPF) Amorphous Sediment Urine Bacteria (None) Ur Culture Indicated? SARS-CoV-2 (PCR) Negative (Negative) Point of Care Testing Glucose POC 331 Imaging Data Chest x-ray: Radiologist's Impression: PROCEDURE: XR CHEST 2V INDICATIONS: Fatigue TECHNIQUE: 2 views of the chest were acquired. COMPARISON: [facility], , XR CHEST 1V, 09/18/2020, 20:11. FINDINGS: Surgical changes and devices: Left proximal humeral old healed fracture associated with lateral cortical sideplate with screws, in place and unchanged Lungs and pleura: Lungs are clear. No pleural effusions or pneumothorax. Mediastinum: Mediastinal contours are normal. Heart size is normal. Atherosclerotic vascular calcification noted in the aortic arch. Bones and chest wall: As above. Generalized decrease in osseous mineralization noted. IMPRESSION: No acute cardiopulmonary findings Approved by: Lucio Macias M.D. on 01/26/2021 at 17:37 ECG Data Attestation: I personally reviewed and interpreted this ECG as follows: Interpretation: No ST_T changes. Bradycardic to 58. NSR. L axis deviation. MDM Narrative Medical decision making narrative: 66-year-old female with past medical history NSTEMI, dementia, poorly-controlled diabetes, hypertension, hyperlipidemia presents to the ED with 1 day nausea. Concern for concussion versus gastritis versus pancreatitis versus PUD versus UTI versus ACS versus COVID 19. Will order labs, lipase, EKG, chest x-ray, troponin, COVID-19 test, UA. Imaging not indicated given benign abdominal exam. Will give GI cocktail, Pepcid, IV fluids for symptoms. Will reassess. Will consider CT abdomen pelvis if indicated by repeat abdominal exam. Likely discharge home. <Brown Gonsales DO - Last Filed: 01/27/21 06:59> Lab Data Labs: Lab Results 01/26/21 01/26/21 01/26/21 Range/Units 18:13 19:09 19:09 WBC 7.4 (4.5-11.0) X10^3/uL RBC 3.98 L (4.0-5.2) X10^6/uL Hgb 9.8 L (12.0-16.0) g/dL Hct 31.1 L (36-46) % MCV 78.2 L (80-100) fL MCH 24.6 L (26-34) PG MCHC 31.5 (30-36) % RDW 16.8 H (11.6-14.8) % Plt Count 210 (150-400) X10^3/uL Neut % (Auto) 72.1 (50-75) % Lymph % (Auto) 18.5 L (25-40) % Louisa % (Auto) 7.5 (3-14) % Eos % (Auto) 1.1 L (2-4) % Baso % (Auto) 0.8 (0-2) % Neut # (Auto) 5300 (6424-8220) /uL Lymph # (Auto) 1400 (0127-2525) /uL Louisa # (Auto) 600 (0-900) /uL Eos # (Auto) 100 (0-450) /uL Baso # (Auto) 100 (0-100) /uL Sodium 132 L (137-145) mmol/L Potassium 3.3 L (3.4-5.1) mmol/L Chloride 106 (98-107) mmol/L Carbon Dioxide 21 L (22-32) mmol/L BUN 24 H (7-17) mg/dL Creatinine 1.31 H (0.52-1.04) mg/dL Estimated GFR 40.7 L (>60) mL/min BUN/Creatinine Ratio 18.3 (6-22) Glucose 264 H D (80-110) mg/dL Calcium 8.4 (8.4-10.2) mg/dL Total Bilirubin 0.5 (0.2-1.3) mg/dL AST 25 (14-36) IU/L ALT 15 (<35) IU/L Alkaline Phosphatase 75 (38-126) U/L Troponin I 0.023 (0.01-0.034) ng/mL Total Protein 6.2 L (6.3-8.2) g/dL Albumin 3.0 L (3.5-5.0) g/dL Globulin 3.2 (1.7-4.1) g/dL Albumin/Globulin Ratio 0.9 L (1.0-2.8) Lipase 18 L (23-300) U/L Urine Color Yellow Urine Appearance Clear Urine pH 6.0 (4.5-8.0) Ur Specific [place] <=1.005 (1.000-1.035) Urine Protein 3+ H (Negative) Urine Glucose (UA) 1+ H (Negative) g/dL Urine Ketones Negative (NEGATIVE) Urine Occult Blood Trace-lysed (Negative) Urine Nitrate Negative (Negative) Urine Bilirubin Negative (NEGATIVE) Urine Urobilinogen 0.2 (0.2) E.U./dL Ur Leukocyte Esterase Negative (NEGATIVE) Urine RBC 0-1/hpf (0-5/HPF) Urine WBC 0-1/hpf (0-5/HPF) Ur Squamous Epith Cells 1-5 /hpf (0-5/HPF) Amorphous Sediment 1+ Urine Bacteria None seen (None) Ur Culture Indicated? Cult not indicated SARS-CoV-2 (PCR) (Negative) 01/26/21 Range/Units 19:20 WBC (4.5-11.0) X10^3/uL RBC (4.0-5.2) X10^6/uL Hgb (12.0-16.0) g/dL Hct (36-46) % MCV (80-100) fL MCH (26-34) PG MCHC (30-36) % RDW (11.6-14.8) % Plt Count (150-400) X10^3/uL Neut % (Auto) (50-75) % Lymph % (Auto) (25-40) % Louisa % (Auto) (3-14) % Eos % (Auto) (2-4) % Baso % (Auto) (0-2) % Neut # (Auto) (0712-3020) /uL Lymph # (Auto) (3995-5784) /uL Louisa # (Auto) (0-900) /uL Eos # (Auto) (0-450) /uL Baso # (Auto) (0-100) /uL Sodium (137-145) mmol/L Potassium (3.4-5.1) mmol/L Chloride (98-107) mmol/L Carbon Dioxide (22-32) mmol/L BUN (7-17) mg/dL Creatinine (0.52-1.04) mg/dL Estimated GFR (>60) mL/min BUN/Creatinine Ratio (6-22) Glucose (80-110) mg/dL Calcium (8.4-10.2) mg/dL Total Bilirubin (0.2-1.3) mg/dL AST (14-36) IU/L ALT (<35) IU/L Alkaline Phosphatase (38-126) U/L Troponin I (0.01-0.034) ng/mL Total Protein (6.3-8.2) g/dL Albumin (3.5-5.0) g/dL Globulin (1.7-4.1) g/dL Albumin/Globulin Ratio (1.0-2.8) Lipase (23-300) U/L Urine Color Urine Appearance Urine pH (4.5-8.0) Ur Specific [place] (1.000-1.035) Urine Protein (Negative) Urine Glucose (UA) (Negative) g/dL Urine Ketones (NEGATIVE) Urine Occult Blood (Negative) Urine Nitrate (Negative) Urine Bilirubin (NEGATIVE) Urine Urobilinogen (0.2) E.U./dL Ur Leukocyte Esterase (NEGATIVE) Urine RBC (0-5/HPF) Urine WBC (0-5/HPF) Ur Squamous Epith Cells (0-5/HPF) Amorphous Sediment Urine Bacteria (None) Ur Culture Indicated? SARS-CoV-2 (PCR) Negative (Negative) Point of Care Testing Glucose POC 331 Discharge Plan Departure Patient Disposition: Home Clinical Impression: Nausea Instructions: DI for Nausea -- Adult Activity Restrictions/Additional Instructions: You were evaluated for nausea and fatigue in the ED today. Your lab results, chest x-ray, EKG, urine were all normal. You were also negative for the COVID- 19 infection. Continue to stay hydrated by drinking lots of water. Return to the ED if you have worsening symptoms such as abdominal pain, chest pain, shortn ess of breath. Prescriptions: No Action cholecalciferol (vitamin D3) [Vitamin D3] 1,000 unit Capsule 1,000 unit PO BID RF: 0 insulin aspart U-100 [Novolog Flexpen U-100 Insulin] 100 UNIT/1 ML insulin pen 1 dose subcut QIDACHS RF: 0 sucralfate [Carafate] 1 gram Tablet 1 g PO QID RF: 0 cyanocobalamin (vitamin B-12) [Vitamin B-12] 1,000 mcg Tablet 1,000 mcg PO DAILY RF: 0 pantoprazole [Protonix] 40 mg tablet,delayed release (DR/EC) 20 mg PO BID RF: 0 lisinopril 20 mg Tablet 20 mg PO DAILY RF: 0 oxybutynin chloride 5 mg Tablet 5 mg PO DAILY RF: 0 metoclopramide HCl [Reglan] 5 mg Tablet 5 mg PO QAC RF: 0 amlodipine 10 mg Tablet 10 mg PO DAILY RF: 0 atorvastatin [Lipitor] 20 mg Tablet 40 mg PO BEDTIME Qty: 30 RF: 0 Lantus Solostar U-100 Insulin 100 unit/mL (3 mL) insulin pen 12 unit SUBCUT QPM Qty: 15 RF: 0 <Brown Gonsales, DO - Last Filed: 01/27/21 06:59> [facility] Att[facility]: Dr Gonsales Co-Sign Statement: I was available for consultation during this patient's emergency department visit. This chart is signed by myself for administrative purposes only. I did not have direct contact with this patient during this visit. They were seen independently by the APC.
[2021-01-26 19:15] LABS: Add Manual Diff / Slide Review NO; Basophils Absolute Auto 100 /uL (0-100); Basophils Percent Auto 0.8 % (0-2); Eosinophils Absolute Auto 100 /uL (0-450); Eosinophils Percent Auto 1.1 % (2-4); Hematocrit 31.1 % (36-46); Hemoglobin 9.8 g/dL (12.0-16.0); Lymphocytes Absolute Auto 1400 /uL (1100-4500); Lymphocytes Percent Auto 18.5 % (25-40); Mean Corpuscular HGB Conc 31.5 % (30-36); Mean Corpuscular Hemoglobin 24.6 PG (26-34); Mean Corpuscular Volume 78.2 fL (80-100); Monocytes Absolute Auto 600 /uL (0-900); Monocytes Percent Auto 7.5 % (3-14); Neutrophils Absolute Auto 5300 /uL (1500-7000); Neutrophils Percent Auto 72.1 % (50-75); Platelet Count 210 X10^3/uL (150-400); Red Blood Cell Count 3.98 X10^6/uL (4.0-5.2); Red Cell Distribution Width 16.8 % (11.6-14.8); White Blood Cell Count 7.4 X10^3/uL (4.5-11.0)
[2021-01-26 19:28] LABS: Alanine Aminotransferase 15 IU/L (<35); Albumin Globulin Ratio 0.9 (1.0-2.8); Alkaline Phosphatase 75 U/L (38-126); Aspartate Aminotransferase 25 IU/L (14-36); BUN Creatinine Ratio 18.3 (6-22); Bilirubin Total 0.5 mg/dL (0.2-1.3); Blood Urea Nitrogen 24 mg/dL (7-17); Calcium 8.4 mg/dL (8.4-10.2); Carbon Dioxide 21 mmol/L (22-32); Chloride 106 mmol/L (98-107); Estimated Glomerular Filt Rate 40.7 mL/min (>60); Globulin 3.2 g/dL (1.7-4.1); Glucose 264 mg/dL (80-110); HEMOLYSIS 27 (0-50); Lipase 18 U/L (23-300); Potassium 3.3 mmol/L (3.4-5.1); Sodium 132 mmol/L (137-145); Total Protein 6.2 g/dL (6.3-8.2)
[2021-01-26] MEDS: MAG HYDROX/ALUMINUM/SIMETH SUS 20 ML, LIDOCAINE VISCOUS 2% 15 ML PO (19:38)
[2021-01-26 19:39] LABS: Troponin I 0.023 ng/mL (0.01-0.034)
[2021-01-26 19:47] LABS: COVID19 -Nasal RAPID Negative (Negative)
== END 2021-01-26 20:38 | disposition home or self-care (01) ==
PROVIDERS: Emergency Medicine; Emergency Provider Student in an Organized Health Care Education/Training Program
DX: R11.0 Nausea (principal); R07.9 Chest pain, unspecified; Z20.822 Contact with and (suspected) exposure to COVID-19
CPT/HCPCS: 36415; 71046; 80053; 81001; 82962; 83690; 84484; 85025; 87635; 93005; 99284; C9803

== ENCOUNTER 2021-03-03 10:10 | Emergency (ER) | payer MEDICARE, MEDICAID, SELFPAY ==
[2021-01-16 01:23] VITALS: BMI 19.1
[2021-03-03] VITALS (18 sets, daily range): BP systolic 166–228; BP diastolic 77–107; PULSE 78–97; RESP 18–22; TEMP 36.8; O2SAT 95–100; BMI 21.9
--- NOTE | 2021-03-03 10:44 | ED.GIBLEED ---
HPI - GI Bleed General Chief complaint: GI Bleed Stated complaint: Vomiting blood Time Seen by Provider: 03/03/21 10:30 Source: patient Mode of arrival: Ambulatory Limitations: no limitations History of Present Illness HPI Narrative: Woman with brittle type 1 diabetes, hypertension, hyperlipidemia, vascular dementia, coronary artery disease, with a history of GI bleeding as well as gastroparesis and recurrent episodes of emesis presents with an episode of brown emesis that her is concerned is blood. Patient describes ?feeling sick? with increasing nausea yesterday with similar complaints this morning. Her notes that her sugars have been running high and was at 377 this morning. She did not get her usual oral medications but he did give her her usual insulin. Her is her primary caregiver and keeps detailed records of medications and physical findings. They report no fevers, cough. She does have chronic mild abdominal pain typically associated with her nausea that is unchanged. She is incontinent of urine and stool. No reports of black stools over the last couple of days. She has not had coffee-ground looking or red blood or clot noted in the episodes of emesis this morning. She complains of general weakness. No chest pain, no dyspnea, no palpitations, she has had no headaches and no focal neurologic findings Related Data Home Medications Medication Instructions Recorded Confirmed cholecalciferol (vitamin D3) 25 1,000 unit PO BID 10/08/17 02/10/21 mcg (1,000 unit) capsule (Vitamin D3) cyanocobalamin (vitamin B-12) 1,000 mcg PO DAILY 08/02/19 02/10/21 1,000 mcg tablet (Vitamin B-12) metoclopramide HCl 5 mg tablet 5 mg PO QAC 12/14/20 02/10/21 (Reglan) insulin aspart U-100 100 unit/mL 1 sliding scale dose SUBCUT QIDACHS 01/27/21 02/10/21 (3 mL) subcutaneous pen (Novolog Flexpen U-100 Insulin aspart) Previous Rx's Medication Instructions Recorded insulin glargine 100 unit/mL (3 12 unit SUBCUT QPM #15 ml 01/17/21 mL) subcutaneous pen (Lantus Solostar U-100 Insulin) amlodipine 10 mg tablet 10 mg PO DAILY #30 tab 01/30/21 atorvastatin 20 mg tablet (Lipitor) 40 mg PO BEDTIME #30 tab 01/30/21 lisinopril 20 mg tablet 20 mg PO DAILY #30 tab 01/30/21 oxybutynin chloride 5 mg tablet 5 mg PO DAILY #30 tab 01/30/21 pantoprazole 40 mg tablet,delayed 20 mg PO BID #60 tab 01/30/21 release (Protonix) sucralfate 1 gram tablet (Carafate) 1 g PO QID #30 tab 01/30/21 Allergies Allergy/AdvReac Type Severity Reaction Status Date / Time Iodine and Iodide Containing Allergy Unknown Verified 03/03/21 10:33 Produc [IODINE AND IODIDE CONTAINING PRODUC] latex [LATEX] Allergy Unknown Verified 03/03/21 10:33 Review of Systems Review of Systems Narrative: Remainder of complete review of systems is otherwise unremarkable except for that included in the HPI. Patient History Medical History Dow's esophagus with esophagitis CVA (cerebral vascular accident) Dementia Diabetes Gallbladder disease GERD (gastroesophageal reflux disease) Hyperlipidemia Hypertension Overactive bladder Post-menopausal Screening for malignant neoplasm of colon Subdural hematoma Upper GI bleed Surgical History History of cholecystectomy Tubal ligation status Family History Mother Heart disease Father No problems noted. Social History household members: significant other Smoking Status: Former smoker alcohol intake: former Smoking Status: Former smoker tobacco type: cigarettes alcohol intake frequency: holidays/special occasions only Alcohol type: hard liquor Substance Use Type: marijuana Exam Narrative Exam Narrative: General: Pale, chronically ill-appearing frail woman in no acute distress HEENT: Moist mucous membranes, normal sclera with reactive pupils, Neck: No JVD, supple Respiratory: Lungs are clear to auscultation, no wheezing no rales no rhonchi. Full and symmetrical air movement Cardiac: Regular rate and rhythm no murmurs no bruits Abdomen: Soft, mild diffuse abdominal tenderness without rebound or guarding good bowel tones, no flank pain Skin: Pale, Warm and dry, no rashes Neurologic: Globally weak but Grossly neurologically intact with no obvious asymmetries or abnormalities Extremities: No trauma, well perfused Psych: Cooperative, appropriate insight and affect Initial Vital Signs Initial Vital Signs: Vital Signs Temperature 98.2 F 03/03/21 10:05 Pulse Rate 78 03/03/21 10:05 Respiratory Rate 22 03/03/21 10:05 Blood Pressure 224/103 H 03/03/21 10:05 Pulse Oximetry 100 03/03/21 10:05 Course Orders Ordered: ED Orders 03/03/21 10:22 Complete Blood Count AUTO DIFF Stat EKG-12 Lead Stat 03/03/21 10:23 Troponin I Stat 03/03/21 11:09 Comprehensive Metabolic Panel Stat Hemoglobin and Hematocrit Stat Partial Thromboplastin Time Stat Prothrombin Time INR Stat Type and Screen Stat 03/03/21 15:12 Potassium Stat Discontinued Medications Amlodipine Besylate (Amlodipine 5 Mg Tablet) 10 mg PO NOW ONE Stop: 03/03/21 12:10 Last Admin: 03/03/21 13:26 Dose: 10 mg Documented by: RENATA Sodium Chloride (Normal Saline 0.9%) 1,000 mls @ 1,000 mls/hr IV BOLUS ONE Stop: 03/03/21 13:08 Last Admin: 03/03/21 12:28 Dose: 1,000 mls/hr Documented by: ANNE POTASSIUM CHLORIDE IN WATER (Potassium Cl 10 Meq/100 Ml Miya) 10 meq in 100 mls @ 100 mls/hr IV Q1H MIRIAM Stop: 03/03/21 14:14 Last Admin: 03/03/21 15:00 Dose: 100 mls/hr Documented by: Infusion: 03/03/21 14:05 Dose: 100 mls/hr Documented by: Admin: 03/03/21 13:05 Dose: 100 mls/hr Documented by: ANNE Lisinopril (Lisinopril 20 Mg Tablet) 20 mg PO NOW ONE Stop: 03/03/21 12:10 Last Admin: 03/03/21 13:26 Dose: 20 mg Documented by: RENATA Metoclopramide HCl (Metoclopramide 10 Mg/2 Ml Inj) 10 mg IV NOW ONE Stop: 03/03/21 12:10 Last Admin: 03/03/21 12:29 Dose: 10 mg Documented by: ANNE Ondansetron HCl (Ondansetron 4 Mg/2 Ml Inj) 4 mg IV NOW ONE Stop: 03/03/21 12:10 Last Admin: 03/03/21 12:28 Dose: 4 mg Documented by: ATAYLJEANNETTE Pantoprazole Sodium (Pantoprazole 40 Mg Vial) 80 mg IV NOW ONE Stop: 03/03/21 12:10 Last Admin: 03/03/21 12:28 Dose: 80 mg Documented by: ANNE Potassium Chloride (Potassium Chloride 20 Meq Tab) 40 meq PO NOW ONE Stop: 03/03/21 12:10 Last Admin: 03/03/21 13:26 Dose: 40 meq Documented by: RENATA Vital Signs Vital signs: Vital Signs - 8 hr 03/03/21 10:05 03/03/21 12:01 Temperature 98.2 F Pulse Rate 78 89 Respiratory Rate 22 18 Blood Pressure 224/103 H 210/101 H Pulse Oximetry 100 98 MDM - GI Bleed Lab Data Result diagrams: 03/03/21 11:09 03/03/21 15:12 Labs: Lab Results 03/03/21 03/03/21 03/03/21 Range/Units 10:22 10:23 11:09 WBC 10.7 (4.5-11.0) X10^3/uL RBC 4.30 (4.0-5.2) X10^6/uL Hgb 10.6 L (12.0-16.0) g/dL Hct 33.4 L (36-46) % MCV 77.7 L (80-100) fL MCH 24.7 L (26-34) PG MCHC 31.8 (30-36) % RDW 18.1 H (11.6-14.8) % Plt Count 203 (150-400) X10^3/uL Neut % (Auto) 85.6 H (50-75) % Lymph % (Auto) 8.1 L (25-40) % [place] % (Auto) 6.0 (3-14) % Eos % (Auto) 0.0 L (2-4) % Baso % (Auto) 0.3 (0-2) % Neut # (Auto) 9200 H (1461-0969) /uL Lymph # (Auto) 900 L (0881-7125) /uL [place] # (Auto) 600 (0-900) /uL Eos # (Auto) 0 (0-450) /uL Baso # (Auto) 0 (0-100) /uL PT 11.6 (10.1-12.7) SECONDS INR 1.0 (0.9-1.3) APTT 31 (26.4-36.2) SECONDS Sodium (137-145) mmol/L Potassium (3.4-5.1) mmol/L Chloride (98-107) mmol/L Carbon Dioxide (22-32) mmol/L BUN (7-17) mg/dL Creatinine (0.52-1.04) mg/dL Estimated GFR (>60) mL/min BUN/Creatinine Ratio (6-22) Glucose (80-110) mg/dL Calcium (8.4-10.2) mg/dL Total Bilirubin (0.2-1.3) mg/dL AST (14-36) IU/L ALT (<35) IU/L Alkaline Phosphatase (38-126) U/L Troponin I 0.043 H (0.01-0.034) ng/mL Total Protein (6.3-8.2) g/dL Albumin (3.5-5.0) g/dL Globulin (1.7-4.1) g/dL Albumin/Globulin Ratio (1.0-2.8) Blood Type Antibody Screen 03/03/21 03/03/21 03/03/21 Range/Units 11:09 11:09 11:09 WBC (4.5-11.0) X10^3/uL RBC (4.0-5.2) X10^6/uL Hgb 10.7 L (12.0-16.0) g/dL Hct 33.9 L (36-46) % MCV (80-100) fL MCH (26-34) PG MCHC (30-36) % RDW (11.6-14.8) % Plt Count (150-400) X10^3/uL Neut % (Auto) (50-75) % Lymph % (Auto) (25-40) % [place] % (Auto) (3-14) % Eos % (Auto) (2-4) % Baso % (Auto) (0-2) % Neut # (Auto) (2381-9105) /uL Lymph # (Auto) (8314-9575) /uL [place] # (Auto) (0-900) /uL Eos # (Auto) (0-450) /uL Baso # (Auto) (0-100) /uL PT (10.1-12.7) SECONDS INR (0.9-1.3) APTT (26.4-36.2) SECONDS Sodium 136 L (137-145) mmol/L Potassium 2.5 L* (3.4-5.1) mmol/L Chloride 99 (98-107) mmol/L Carbon Dioxide 26 (22-32) mmol/L BUN 15 (7-17) mg/dL Creatinine 1.20 H (0.52-1.04) mg/dL Estimated GFR 45.1 L (>60) mL/min BUN/Creatinine Ratio 12.5 (6-22) Glucose 299 H (80-110) mg/dL Calcium 9.0 (8.4-10.2) mg/dL Total Bilirubin 1.2 (0.2-1.3) mg/dL AST 25 (14-36) IU/L ALT 17 (<35) IU/L Alkaline Phosphatase 91 (38-126) U/L Troponin I (0.01-0.034) ng/mL Total Protein 6.7 (6.3-8.2) g/dL Albumin 3.5 (3.5-5.0) g/dL Globulin 3.2 (1.7-4.1) g/dL Albumin/Globulin Ratio 1.1 (1.0-2.8) Blood Type A Positive Antibody Screen Negative 03/03/21 Range/Units 15:12 WBC (4.5-11.0) X10^3/uL RBC (4.0-5.2) X10^6/uL Hgb (12.0-16.0) g/dL Hct (36-46) % MCV (80-100) fL MCH (26-34) PG MCHC (30-36) % RDW (11.6-14.8) % Plt Count (150-400) X10^3/uL Neut % (Auto) (50-75) % Lymph % (Auto) (25-40) % [place] % (Auto) (3-14) % Eos % (Auto) (2-4) % Baso % (Auto) (0-2) % Neut # (Auto) (5317-6651) /uL Lymph # (Auto) (6740-6784) /uL [place] # (Auto) (0-900) /uL Eos # (Auto) (0-450) /uL Baso # (Auto) (0-100) /uL PT (10.1-12.7) SECONDS INR (0.9-1.3) APTT (26.4-36.2) SECONDS Sodium (137-145) mmol/L Potassium 3.2 L (3.4-5.1) mmol/L Chloride (98-107) mmol/L Carbon Dioxide (22-32) mmol/L BUN (7-17) mg/dL Creatinine (0.52-1.04) mg/dL Estimated GFR (>60) mL/min BUN/Creatinine Ratio (6-22) Glucose (80-110) mg/dL Calcium (8.4-10.2) mg/dL Total Bilirubin (0.2-1.3) mg/dL AST (14-36) IU/L ALT (<35) IU/L Alkaline Phosphatase (38-126) U/L Troponin I (0.01-0.034) ng/mL Total Protein (6.3-8.2) g/dL Albumin (3.5-5.0) g/dL Globulin (1.7-4.1) g/dL Albumin/Globulin Ratio (1.0-2.8) Blood Type Antibody Screen Point of Care Testing Glucose POC 258 ECG Data Interpretation: Sinus rhythm at a rate of 77 Long QT with a corrected QTC at [address] T wave changes Left ventricular hypertrophy with repolarization changes No acute ischemic changes MDM Narrative Medical decision making narrative: Chronically ill 66-year-old woman presents with nausea vomiting and concerns for GI bleeding. No black stools. Initial H&H actually show an increased hemoglobin and hematocrit most recently 9.8 and 31 today 10.6 and 33.4. Chemistries are reassuring with the exception of a potassium low at 2.5. Creatinine is slightly lower than her baseline of 1.3 currently at 1.2. Exam is benign. At this time I am not convinced that the emesis was in fact bloody. She has not had additional emesis since. There is no sign of overall infection, stroke or acute coronary syndrome. Will treat with a L of fluid, give her her usual morning amlodipine and lisinopril for her elevated blood pressure today. Treat her nausea and replace potassium with both oral and IV potassium. Once both potassium treatment are given will repeat her potassium as well as her EKG. If she has another episode of emesis will check for blood. She may be able to be discharged home with her potassium is in fact trending up. 257pm has had 1 bag of the IV potassium and 200 cc of fluid. She has tolerated oral medication well. Is stable at this time. Will recheck potassium levels. IV access has been an issue with initial wrist IV no longer working and antecubital IV very positional and making infusions quite slow. 430 on re-evaluation, potassium level is increased to 3.2, she is feeling significantly better and H&H has actually increased after a L of saline hydration. At this time, I do not believe she is actively bleeding from her stomach and I believe potassium levels are safe for home discharge at this time. Findings are reviewed with both her and her . Questions are answered and she is safe for home discharge Discharge Plan Departure Patient Disposition: Home Clinical Impression: Acute hypokalemia Vomiting Qualifiers: Vomiting type: unspecified Vomiting Intractability: non-intractable Nausea presence: with nausea Qualified Code(s): R11.2 - Nausea with vomiting, unspecified Activity Restrictions/Additional Instructions: Thank you for coming in today Fortunately, I am not seeing any evidence of bleeding from your stomach at this time. Your red blood cell count has actually increased over the course of your emergency room stay even with fluids being given. Your potassium level was quite low and this was replaced. You are not on medications that would make you potassium decrease so I suspect that that was related to your recent vomiting. I found no evidence of significant diabetic complications or infection. At this time it is safe for you to return home. I would encourage you to follow-up with your primary care physician in the near future. Prescriptions: No Action amlodipine 10 mg tablet 10 mg PO DAILY Qty: 30 RF: 0 lisinopril 20 mg tablet 20 mg PO DAILY Qty: 30 RF: 0 atorvastatin [Lipitor] 20 mg tablet 40 mg PO BEDTIME Qty: 30 RF: 0 oxybutynin chloride 5 mg tablet 5 mg PO DAILY Qty: 30 RF: 0 pantoprazole [Protonix] 40 mg tablet,delayed release (DR/EC) 20 mg PO BID Qty: 60 RF: 0 sucralfate [Carafate] 1 gram tablet 1 g PO QID Qty: 30 RF: 0 cholecalciferol (vitamin D3) [Vitamin D3] 1,000 unit Capsule 1,000 unit PO BID RF: 0 insulin aspart U-100 [Novolog Flexpen U-100 Insulin] 100 unit/mL (3 mL) insulin pen 1 sliding scale dose subcut QIDACHS RF: 0 cyanocobalamin (vitamin B-12) [Vitamin B-12] 1,000 mcg Tablet 1,000 mcg PO DAILY RF: 0 metoclopramide HCl [Reglan] 5 mg Tablet 5 mg PO QAC RF: 0 Lantus Solostar U-100 Insulin 100 unit/mL (3 mL) insulin pen 12 unit SUBCUT QPM Qty: 15 RF: 0 Referrals: Carmina Madrigal ARNP [Primary Care Provider] -
[2021-03-03 11:17] LABS: Add Manual Diff / Slide Review NO; Basophils Absolute Auto 0 /uL (0-100); Basophils Percent Auto 0.3 % (0-2); Eosinophils Absolute Auto 0 /uL (0-450); Hematocrit 33.4 % (36-46); Hemoglobin 10.6 g/dL (12.0-16.0); Lymphocytes Absolute Auto 900 /uL (1100-4500); Lymphocytes Percent Auto 8.1 % (25-40); Mean Corpuscular HGB Conc 31.8 % (30-36); Mean Corpuscular Hemoglobin 24.7 PG (26-34); Mean Corpuscular Volume 77.7 fL (80-100); Monocytes Absolute Auto 600 /uL (0-900); Neutrophils Absolute Auto 9200 /uL (1500-7000); Neutrophils Percent Auto 85.6 % (50-75); Platelet Count 203 X10^3/uL (150-400); Red Cell Distribution Width 18.1 % (11.6-14.8); White Blood Cell Count 10.7 X10^3/uL (4.5-11.0)
[2021-03-03 11:31] LABS: Prothrombin Time 11.6 SECONDS (10.1-12.7)
[2021-03-03 11:34] LABS: PTT Partial Thromboplastin Tim 31 SECONDS (26.4-36.2)
[2021-03-03 11:45] LABS: Alanine Aminotransferase 17 IU/L (<35); Albumin 3.5 g/dL (3.5-5.0); Albumin Globulin Ratio 1.1 (1.0-2.8); Alkaline Phosphatase 91 U/L (38-126); Aspartate Aminotransferase 25 IU/L (14-36); BUN Creatinine Ratio 12.5 (6-22); Bilirubin Total 1.2 mg/dL (0.2-1.3); Blood Urea Nitrogen 15 mg/dL (7-17); Carbon Dioxide 26 mmol/L (22-32); Chloride 99 mmol/L (98-107); Estimated Glomerular Filt Rate 45.1 mL/min (>60); Globulin 3.2 g/dL (1.7-4.1); Glucose 299 mg/dL (80-110); HEMOLYSIS < 15 (0-50); Sodium 136 mmol/L (137-145); Total Protein 6.7 g/dL (6.3-8.2)
[2021-03-03 11:53] LABS: Potassium 2.5 mmol/L (3.4-5.1)
[2021-03-03] MEDS: ONDANSETRON 4 MG/2 ML INJ IV (12:28)
[2021-03-03] MEDS: PANTOPRAZOLE 40 MG VIAL 80 MG IV (12:28)
[2021-03-03] MEDS: SODIUM CHLORIDE 0.9% 1,000 ML 1000 ML IV (12:28)
[2021-03-03] MEDS: METOCLOPRAMIDE 10 MG/2 ML INJ IV (12:29)
[2021-03-03 12:44] LABS: Troponin I 0.043 ng/mL (0.01-0.034)
[2021-03-03] MEDS: POTASSIUM CHLORIDE IN WATER 10 MEQ/100 ML PIGGYBACK 100 MEQ IV ×2 (13:05→15:00)
[2021-03-03] MEDS: POTASSIUM CHLORIDE 20 MEQ TAB 40 MEQ PO (13:26)
[2021-03-03] MEDS: lisinopriL 20 MG TABLET PO (13:26)
[2021-03-03] MEDS: AMLODIPINE 5 MG TABLET 10 MG PO (13:26)
[2021-03-03 15:05] LABS: Hematocrit 33.9 % (36-46); Hemoglobin 10.7 g/dL (12.0-16.0)
[2021-03-03 15:32] LABS: HEMOLYSIS 15 (0-50); Potassium 3.2 mmol/L (3.4-5.1)
== END 2021-03-03 17:05 | disposition home or self-care (01) ==
PROVIDERS: Emergency Provider Emergency Medicine; PCP Registered Nurse
DX: E87.6 Hypokalemia (principal); R11.2 Nausea with vomiting, unspecified; I10 Essential (primary) hypertension; R79.89 Other specified abnormal findings of blood chemistry
CPT/HCPCS: 36415; 80053; 82962; 84132; 84484; 85014; 85018; 85025; 85610; 85730; 86850; 86900; 86901; 93005; 93010; 96365; 96366; 96375; 99284; C9113; J2405; J2765

== ENCOUNTER 2021-03-31 11:36 | Emergency (ER) | payer MEDICARE, MEDICAID, SELFPAY ==
[2021-01-16 01:23] VITALS: BMI 19.1
[2021-03-31] VITALS (34 sets, daily range): BP systolic 146–196; BP diastolic 65–97; PULSE 69–92; RESP 14–27; TEMP 36.2; O2SAT 92–100; BMI 23.1
--- NOTE | 2021-03-31 12:30 | ED_ITS ---
HPI - Extremity Problem General Chief complaint: Extremity Problem,Nontraumatic Stated complaint: Fall, Both Feet Swelling, Sent from [facility] Time Seen by Provider: 03/31/21 12:24 Source: patient Mode of arrival: Wheelchair Limitations: no limitations History of Present Illness HPI Narrative: The patient presents with bilateral lower extremity edema, left greater than right. She has pain in both legs. She denies chest pain, cough or dyspnea. She has no hemoptysis. She has diabetes, hypertension hyperlipidemia. She has liver disease. She has been off medications for a week, until yesterday. She presents with lower extremity edema and tenderness. She has abdominal distension. She denies chest pain, dyspnea, or orthopnea. She has no fever chills. She has no nausea or emesis her abdominal discomfort. She denies acute illness. Related Data Home Medications Medication Instructions Recorded Confirmed cholecalciferol (vitamin D3) 25 1,000 unit PO BID 10/08/17 02/10/21 mcg (1,000 unit) capsule (Vitamin D3) cyanocobalamin (vitamin B-12) 1,000 mcg PO DAILY 08/02/19 02/10/21 1,000 mcg tablet (Vitamin B-12) metoclopramide HCl 5 mg tablet 5 mg PO QAC 12/14/20 02/10/21 (Reglan) Previous Rx's Medication Instructions Recorded Glucose Test strips #100 ea 03/28/21 amlodipine 10 mg tablet 10 mg PO DAILY #90 tab 03/29/21 atorvastatin 20 mg tablet (Lipitor) 40 mg PO BEDTIME #90 tab 03/29/21 insulin aspart U-100 100 unit/mL 1 sliding scale dose SUBCUT 03/29/21 (3 mL) subcutaneous pen (Novolog QIDACHS #15 ml Flexpen U-100 Insulin aspart) insulin glargine 100 unit/mL (3 12 unit SUBCUT QPM #15 ml 03/29/21 mL) subcutaneous pen (Lantus Solostar U-100 Insulin) lisinopril 20 mg tablet 20 mg PO DAILY #90 tab 03/29/21 oxybutynin chloride 5 mg tablet 5 mg PO DAILY #90 tab 03/29/21 pantoprazole 40 mg tablet,delayed 20 mg PO BID #180 tab 03/29/21 release (Protonix) sucralfate 1 gram tablet (Carafate) 1 g PO QID #360 tab 03/30/21 Allergies Allergy/AdvReac Type Severity Reaction Status Date / Time Iodine and Iodide Containing Allergy Unknown Verified 03/31/21 12:17 Produc [IODINE AND IODIDE CONTAINING PRODUC] latex [LATEX] Allergy Unknown Verified 03/31/21 12:17 Review of Systems Constitutional Constitutional: Reports as per HPI, Reports body ache(s), Denies chills, Reports fatigue, Denies fever(s) and Denies headache(s) Eyes Eyes: Denies change in vision ENT Ears, Nose, Mouth, and Throat: Denies dizziness, Denies headache(s) and Denies sore throat Cardiovascular Cardiovascular: Denies chest pain, Denies rapid heart rate, Reports pedal edema, Denies leg ulcers, Reports leg edema and Denies dyspnea Respiratory Respiratory: Denies chest congestion, Denies cough and Denies dyspnea Gastrointestinal Gastrointestinal: Reports abdominal pain (Feels bloated), Denies change in bowel habits, Denies nausea and Denies vomiting Genitourinary Genitourinary: Denies dysuria Musculoskeletal Musculoskeletal: Denies arthralgias, Denies back pain and Denies arthralgias Comments: Leg edema and pain Integumentary/Breasts Skin/Breast: Denies lesions and Denies rash Neurologic Neurologic: Denies confusion, Denies dizziness and Denies headache(s) Psychiatric Psychiatric: Denies confusion Endocrine Endocrine: Reports fatigue Hematologic/Lymphatic On Anticoagulants: No Patient History Medical History Dow's esophagus with esophagitis CVA (cerebral vascular accident) Dementia Diabetes Gallbladder disease GERD (gastroesophageal reflux disease) Hyperlipidemia Hypertension Overactive bladder Post-menopausal Screening for malignant neoplasm of colon Subdural hematoma Swelling of left lower extremity Upper GI bleed Surgical History History of cholecystectomy Tubal ligation status Family History Mother Heart disease Father No problems noted. Social History household members: significant other Smoking Status: Former smoker alcohol intake: former Smoking Status: Former smoker tobacco type: cigarettes alcohol intake frequency: holidays/special occasions only Alcohol type: hard liquor Substance Use Type: marijuana Exam Initial Vital Signs Initial Vital Signs: Vital Signs Temperature 97.2 F L 03/31/21 12:07 Pulse Rate 82 03/31/21 12:07 Respiratory Rate 27 H 03/31/21 12:07 Blood Pressure 188/83 H 03/31/21 12:07 Pulse Oximetry 98 03/31/21 12:07 Const General: cooperative and comfortable [facility] Head: normal to inspection, normocephalic and atraumatic Mouth: oral mucosae normal Eyes Conjunctivae: conjunctivae normal Sclera: sclerae normal Pupils: PERRL Neck Neck: supple and No JVD Resp Auscultation: clear to auscultation bilaterally Cardio Rate: regular rate Rhythm: regular rhythm Heart Sounds: S1 normal, S2 normal and no murmurs GI Other: Abdominal distension. Hyperactive bowel sounds. No significant focal tenderness. No guarding or rebound. No masses. Back/Spine/Pelvis Back: No CVA tenderness Skin General: no rashes or lesions noted Neuro General: patient alert, patient awake and no focal motor deficits Extrem General: full ROM Other: 3+ bilateral lower extremity edema. Mild bilateral calf tenderness. No edema to the feet. Dorsalis pedis pulses are normal bilaterally. Psych Mental Status: mental status grossly normal Course Course Course Narrative: Lab evaluation was initiated. She had a significant elevated D-dimer, ultrasound of the legs was normal. This led to a CTA of the chest, there is no evidence of PE. There is no cardiopulmonary process. In the [facility] she was given IV Lasix, she underwent significant diuresis. She is clinically improved at the time of discharge. Orders Ordered: Discontinued Medications Diphenhydramine HCl (Diphenhydramine 50 Mg/Ml Vial) 50 mg IV NOW ONE Stop: 03/31/21 18:01 Last Admin: 03/31/21 18:10 Dose: 50 mg Documented by: MELISSA Furosemide (Furosemide 40 Mg/4 Ml Vial) 40 mg IV NOW ONE Stop: 03/31/21 14:31 Last Admin: 03/31/21 14:59 Dose: 40 mg Documented by: RENATA Methylprednisolone (Methylprednisolone 125 Mg/2 Ml Vial) 125 mg IV NOW ONE Stop: 03/31/21 18:04 Last Admin: 03/31/21 18:10 Dose: 125 mg Documented by: MELISSA Vital Signs Vital signs: Vital Signs - 8 hr 03/31/21 12:07 03/31/21 12:12 03/31/21 12:13 Temperature 97.2 F L Pulse Rate 82 83 83 Pulse Rate [Bilateral Dorsalis Pedis] Respiratory Rate 27 H Blood Pressure 188/83 H 183/83 H Pulse Oximetry 98 92 100 03/31/21 12:15 03/31/21 12:30 03/31/21 12:45 Temperature Pulse Rate 79 72 70 Pulse Rate [Bilateral Dorsalis Pedis] Respiratory Rate 23 18 22 Blood Pressure 164/79 H 159/78 H 157/86 H Pulse Oximetry 100 100 100 03/31/21 13:00 03/31/21 13:02 03/31/21 13:15 Temperature Pulse Rate 69 70 Pulse Rate [Bilateral Dorsalis Pedis] 74 Respiratory Rate 22 20 Blood Pressure 167/77 H 151/76 H Pulse Oximetry 100 98 03/31/21 13:30 03/31/21 14:00 03/31/21 14:30 Temperature Pulse Rate 69 72 71 Pulse Rate [Bilateral Dorsalis Pedis] Respiratory Rate 23 17 20 Blood Pressure 149/74 H Pulse Oximetry 100 98 98 03/31/21 15:00 03/31/21 15:17 03/31/21 15:30 Temperature Pulse Rate 71 77 71 Pulse Rate [Bilateral Dorsalis Pedis] Respiratory Rate 19 23 15 Blood Pressure 178/87 H 167/86 H Pulse Oximetry 99 100 100 03/31/21 15:45 03/31/21 16:00 03/31/21 16:04 Temperature Pulse Rate 74 92 H 77 Pulse Rate [Bilateral Dorsalis Pedis] Respiratory Rate 20 24 24 Blood Pressure 162/88 H 186/92 H Pulse Oximetry 99 100 03/31/21 16:15 03/31/21 16:30 03/31/21 16:45 Temperature Pulse Rate 74 75 71 Pulse Rate [Bilateral Dorsalis Pedis] Respiratory Rate 21 22 Blood Pressure 177/97 H 178/94 H 174/93 H Pulse Oximetry 99 100 100 03/31/21 17:00 03/31/21 17:15 03/31/21 17:30 Temperature Pulse Rate 69 70 88 Pulse Rate [Bilateral Dorsalis Pedis] Respiratory Rate 21 20 14 Blood Pressure 157/80 H 154/70 H Pulse Oximetry 100 98 99 03/31/21 17:31 03/31/21 17:43 03/31/21 17:45 Temperature Pulse Rate 88 75 69 Pulse Rate [Bilateral Dorsalis Pedis] Respiratory Rate 21 Blood Pressure 146/65 H 177/82 H 176/84 H Pulse Oximetry 99 100 100 03/31/21 18:00 Temperature Pulse Rate 72 Pulse Rate [Bilateral Dorsalis Pedis] Respiratory Rate 25 H Blood Pressure 187/91 H Pulse Oximetry 94 MDM - Extremity (Nontraumatic) Lab Data Result diagrams: 03/31/21 13:46 03/31/21 13:46 Labs: Lab Results 03/31/21 03/31/21 03/31/21 Range/Units 13:46 13:46 13:46 WBC 6.4 (4.5-11.0) X10^3/uL RBC 3.77 L (4.0-5.2) X10^6/uL Hgb 9.4 L (12.0-16.0) g/dL Hct 29.6 L (36-46) % MCV 78.5 L (80-100) fL MCH 24.9 L (26-34) PG MCHC 31.7 (30-36) % RDW 18.2 H (11.6-14.8) % Plt Count 248 (150-400) X10^3/uL Neut % (Auto) 68.4 (50-75) % Lymph % (Auto) 21.2 L (25-40) % [place] % (Auto) 8.7 (3-14) % Eos % (Auto) 1.4 L (2-4) % Baso % (Auto) 0.3 (0-2) % Neut # (Auto) 4400 (0062-5757) /uL Lymph # (Auto) 1400 (5436-0926) /uL [place] # (Auto) 600 (0-900) /uL Eos # (Auto) 100 (0-450) /uL Baso # (Auto) 0 (0-100) /uL D-Dimer (<230) ng/mL Sodium 134 L (137-145) mmol/L Potassium 3.9 (3.4-5.1) mmol/L Chloride 108 H (98-107) mmol/L Carbon Dioxide 20 L (22-32) mmol/L BUN 20 H (7-17) mg/dL Creatinine 1.60 H (0.52-1.04) mg/dL Estimated GFR 32.3 L (>60) mL/min BUN/Creatinine Ratio 12.5 (6-22) Glucose 276 H (80-110) mg/dL Calcium 8.6 (8.4-10.2) mg/dL Total Bilirubin 0.5 (0.2-1.3) mg/dL AST 18 (14-36) IU/L ALT 11 (<35) IU/L Alkaline Phosphatase 84 (38-126) U/L Ammonia (9-30) umol/L NT-Pro-B Natriuret Pep 7280 H (<125) pg/mL Total Protein 6.0 L (6.3-8.2) g/dL Albumin 2.9 L (3.5-5.0) g/dL Globulin 3.1 (1.7-4.1) g/dL Albumin/Globulin Ratio 0.9 L (1.0-2.8) Lipase 18 L (23-300) U/L Urine RBC (0-5/HPF) Urine WBC (0-5/HPF) Ur Squamous Epith Cells (0-5/HPF) Amorphous Sediment Urine Bacteria (None) Ur Culture Indicated? 03/31/21 03/31/21 03/31/21 Range/Units 13:46 13:46 15:25 WBC (4.5-11.0) X10^3/uL RBC (4.0-5.2) X10^6/uL Hgb (12.0-16.0) g/dL Hct (36-46) % MCV (80-100) fL MCH (26-34) PG MCHC (30-36) % RDW (11.6-14.8) % Plt Count (150-400) X10^3/uL Neut % (Auto) (50-75) % Lymph % (Auto) (25-40) % [place] % (Auto) (3-14) % Eos % (Auto) (2-4) % Baso % (Auto) (0-2) % Neut # (Auto) (1162-2856) /uL Lymph # (Auto) (5213-2745) /uL [place] # (Auto) (0-900) /uL Eos # (Auto) (0-450) /uL Baso # (Auto) (0-100) /uL D-Dimer 1377 H (<230) ng/mL Sodium (137-145) mmol/L Potassium (3.4-5.1) mmol/L Chloride (98-107) mmol/L Carbon Dioxide (22-32) mmol/L BUN (7-17) mg/dL Creatinine (0.52-1.04) mg/dL Estimated GFR (>60) mL/min BUN/Creatinine Ratio (6-22) Glucose (80-110) mg/dL Calcium (8.4-10.2) mg/dL Total Bilirubin (0.2-1.3) mg/dL AST (14-36) IU/L ALT (<35) IU/L Alkaline Phosphatase (38-126) U/L Ammonia < 9 L (9-30) umol/L NT-Pro-B Natriuret Pep (<125) pg/mL Total Protein (6.3-8.2) g/dL Albumin (3.5-5.0) g/dL Globulin (1.7-4.1) g/dL Albumin/Globulin Ratio (1.0-2.8) Lipase (23-300) U/L Urine RBC 1-5/hpf (0-5/HPF) Urine WBC 30-100/hpf H (0-5/HPF) Ur Squamous Epith Cells 1-5 /hpf (0-5/HPF) Amorphous Sediment 1+ Urine Bacteria Many (>30) H (None) Ur Culture Indicated? Specimen cultured Urine Dip Bedside Urine Glucose 250 mg/dl Bedside Urine Bilirubin - Negative Bedside Urine Ketone - Negative Urine Specific [place] 1.025 Bedside Urine Occult Blood +/- Bedside Urine pH 6.0 Bedside Urine Protein ++ 100 Bedside Urine Urobilinogen - Negative Bedside Urine Nitrite + Positive Bedside Urine Leukocytes - Negative Esterase Imaging Data CTA Chest: Radiologist's Impression: Launch?[address] [address] [address] Scan Report Signed Patient: Kristine Moon MR#: [id number] : 1955 Acct:[id number] Age/Sex: 66 / F Date of Service: 03/31/21 Loc: ED Accession Number: [id number] ?? Procedure: CT angio chest PE protocol Ordering Provider: Socrates Faustin MD PROCEDURE:? CT ANGIO CHEST PE PROTOCOL ? INDICATIONS:? Elevated D-dimer ? TECHNIQUE:? After the administration of intravenous contrast, 2 mm thick sections acquired from the pulmonary apices to the posterior costophrenic angles.? 3-dimensional maximum intensity projection (MIP) coronal and sagittal reformats were then acquired through the thorax.? For radiation dose reduction, the following was used:? automated exposure control, adjustment of mA and/or kV according to patient size.? ? COMPARISON:? [facility], CT, CT ANGIO CHEST PE PROTOCOL, 09/18/2020, 21:09. ? FINDINGS:? Image quality:? Excellent.? ? Pulmonary arteries:? Pulmonary arteries are prominent in size, and demonstrate no intraluminal filling defects to suggest central pulmonary embolism.? ? Lungs and pleura:? Scattered atelectasis/scarring in periphery of bilateral lung cuevas are seen not significantly changed from prior study.? No focal infiltrate.? No pleural effusions or pneumothorax.? Central and peripheral airways are patent.? ? Mediastinum:? Heart size is enlarged, without pericardial effusion.? No mediastinal or hilar adenopathy.? Ascending thoracic aorta is borderline aneurysmal and measures 4 cm in largest AP diameter.? Moderate atherosclerotic disease in coronary vessels and thoracic aorta is seen.? Esophagus is normal in caliber, with a small hiatal hernia.? ? Bones and chest wall:? No suspicious bony lesions.? Ribs and thoracic spine appear intact throughout.? Thyroid gland is within normal limits.? No axillary or supraclavicular adenopathy.? ? Abdomen:? Visualized upper abdomen shows moderate amount of ascites fluid and cirrhotic appearing liver.? There is prior cholecystectomy. ? IMPRESSION:? 1. No evidence of pulmonary emboli.? Borderline ascending thoracic aortic aneurysm measures 4 cm in largest AP diameter.? No aortic dissection. 2. Prominent pulmonary artery size suggestive of pulmonary vascular hypertension.? Cardiomegaly, no pericardial effusion. 3. Scattered scarring/atelectasis in periphery of bilateral lung cuevas.? No focal infiltrate, pleural effusion or pneumothorax.? Airway is patent. 4. Small hiatal hernia.? Moderate to large ascites fluid in upper abdomen with cirrhotic appearing liver.? Findings are not significantly changed from prior study.? ? ? Dictated by: Antwon Redd M.D. on 03/31/2021 at 18:45 ? ? Approved by: Antwon Redd M.D. on 03/31/2021 at 18:52?? Lower extremity ultrasound:: Radiologist's Impression: No evidence of DVT. Discharge Plan Departure Patient Disposition: Home Clinical Impression: Hypertension, Diabetes, Bilateral edema of lower extremity, D-dimer, elevated Instructions: Essential Hypertension Activity Restrictions/Additional Instructions: He had extensive evaluation. You have no evidence infection. Your heart dysfunction well. He has no blood clots in her lungs or in her legs. The extra medications seem to have removed a significant amount of fluid from her body. Resume your normal medications. Follow-up with your PCM. Return here as needed. Prescriptions: No Action (DME) Glucose Test strips See Rx Instructions .Route .MEDSUPPLY Qty: 100 RF: 11 amlodipine 10 mg tablet 10 mg PO DAILY Qty: 90 RF: 2 atorvastatin [Lipitor] 20 mg tablet 40 mg PO BEDTIME Qty: 90 RF: 2 insulin aspart U-100 [Novolog Flexpen U-100 Insulin] 100 unit/mL (3 mL) insulin pen 1 sliding scale dose subcut QIDACHS Qty: 15 RF: 2 Lantus Solostar U-100 Insulin 100 unit/mL (3 mL) insulin pen 12 unit SUBCUT QPM Qty: 15 RF: 2 lisinopril 20 mg tablet 20 mg PO DAILY Qty: 90 RF: 2 oxybutynin chloride 5 mg tablet 5 mg PO DAILY Qty: 90 RF: 2 pantoprazole [Protonix] 40 mg tablet,delayed release (DR/EC) 20 mg PO BID Qty: 180 RF: 2 sucralfate [Carafate] 1 gram tablet 1 g PO QID Qty: 360 RF: 2 cholecalciferol (vitamin D3) [Vitamin D3] 1,000 unit Capsule 1,000 unit PO BID RF: 0 cyanocobalamin (vitamin B-12) [Vitamin B-12] 1,000 mcg Tablet 1,000 mcg PO DAILY RF: 0 metoclopramide HCl [Reglan] 5 mg Tablet 5 mg PO QAC RF: 0 Referrals: Carmina Madrigal ARNP [Primary Care Provider] -
[2021-03-31 13:58] LABS: Add Manual Diff / Slide Review NO; Basophils Absolute Auto 0 /uL (0-100); Basophils Percent Auto 0.3 % (0-2); Eosinophils Absolute Auto 100 /uL (0-450); Eosinophils Percent Auto 1.4 % (2-4); Hematocrit 29.6 % (36-46); Hemoglobin 9.4 g/dL (12.0-16.0); Lymphocytes Absolute Auto 1400 /uL (1100-4500); Lymphocytes Percent Auto 21.2 % (25-40); Mean Corpuscular HGB Conc 31.7 % (30-36); Mean Corpuscular Hemoglobin 24.9 PG (26-34); Mean Corpuscular Volume 78.5 fL (80-100); Monocytes Absolute Auto 600 /uL (0-900); Monocytes Percent Auto 8.7 % (3-14); Neutrophils Absolute Auto 4400 /uL (1500-7000); Neutrophils Percent Auto 68.4 % (50-75); Platelet Count 248 X10^3/uL (150-400); Red Blood Cell Count 3.77 X10^6/uL (4.0-5.2); Red Cell Distribution Width 18.2 % (11.6-14.8); White Blood Cell Count 6.4 X10^3/uL (4.5-11.0)
[2021-03-31 14:08] LABS: Ammonia (NH3) < 9 umol/L (9-30)
[2021-03-31 14:09] LABS: Alanine Aminotransferase 11 IU/L (<35); Albumin 2.9 g/dL (3.5-5.0); Albumin Globulin Ratio 0.9 (1.0-2.8); Alkaline Phosphatase 84 U/L (38-126); Aspartate Aminotransferase 18 IU/L (14-36); BUN Creatinine Ratio 12.5 (6-22); Bilirubin Total 0.5 mg/dL (0.2-1.3); Blood Urea Nitrogen 20 mg/dL (7-17); Calcium 8.6 mg/dL (8.4-10.2); Carbon Dioxide 20 mmol/L (22-32); Chloride 108 mmol/L (98-107); Estimated Glomerular Filt Rate 32.3 mL/min (>60); Globulin 3.1 g/dL (1.7-4.1); Glucose 276 mg/dL (80-110); HEMOLYSIS < 15 (0-50); Lipase 18 U/L (23-300); Potassium 3.9 mmol/L (3.4-5.1); Sodium 134 mmol/L (137-145)
[2021-03-31 14:18] LABS: NT-proBNP (BNP-Adult 18+) 7280 pg/mL (<125)
[2021-03-31 14:43] LABS: D Dimer 1377 ng/mL (<230)
[2021-03-31] MEDS: FUROSEMIDE 40 MG/4 ML VIAL IV (14:59)
--- NOTE | 2021-03-31 15:12 | DI.US.S_ITS ---
PROCEDURE: US PERIPH VENOUS LOW EXTREM BI INDICATIONS: BILAT LE EDEMA, ELEVATED DDIMER TECHNIQUE: Real-time imaging, as well as color and pulse Doppler interrogation, were performed of the deep veins of both legs from the inguinal ligament to the popliteal fossa. COMPARISON: None. FINDINGS: Right: The common femoral, femoral and popliteal veins are normally compressible, and free of intraluminal thrombus. Color and pulse Doppler demonstrate normal phasic intravascular flow. There is normal augmentation response to distal compression maneuver. Left: The common femoral, femoral and popliteal veins are normally compressible, and free of intraluminal thrombus. Color and pulse Doppler demonstrate normal phasic intravascular flow. There is normal augmentation response to distal compression maneuver. Subcutaneous edema is appreciated bilaterally. IMPRESSION: No lower extremity DVT in either leg. Dictated by: Eagle Alonso M.D. on 03/31/2021 at 16:58 Approved by: Eagle Alonso M.D. on 03/31/2021 at 16:59
[2021-03-31 16:32] LABS: Amorphous Sediment Urine 1+; Bacteria Urine Many (>30); RBC Urine 1-5/HPF (0-5/HPF); Squamous Epithelial Cell Urine 1-5 /HPF (0-5/HPF); WBC Urine 30-100/HPF (0-5/HPF)
[2021-03-31 16:33] LABS: Culture Indicated Urine Specimen Cultured
--- NOTE | 2021-03-31 17:47 | DI.CT.S_ITS ---
PROCEDURE: CT ANGIO CHEST PE PROTOCOL INDICATIONS: Elevated D-dimer TECHNIQUE: After the administration of intravenous contrast, 2 mm thick sections acquired from the pulmonary apices to the posterior costophrenic angles. 3-dimensional maximum intensity projection (MIP) coronal and sagittal reformats were then acquired through the thorax. For radiation dose reduction, the following was used: automated exposure control, adjustment of mA and/or kV according to patient size. COMPARISON: [facility], CT, CT ANGIO CHEST PE PROTOCOL, 09/18/2020, 21:09. FINDINGS: Image quality: Excellent. Pulmonary arteries: Pulmonary arteries are prominent in size, and demonstrate no intraluminal filling defects to suggest central pulmonary embolism. Lungs and pleura: Scattered atelectasis/scarring in periphery of bilateral lung cuevas are seen not significantly changed from prior study. No focal infiltrate. No pleural effusions or pneumothorax. Central and peripheral airways are patent. Mediastinum: Heart size is enlarged, without pericardial effusion. No mediastinal or hilar adenopathy. Ascending thoracic aorta is borderline aneurysmal and measures 4 cm in largest AP diameter. Moderate atherosclerotic disease in coronary vessels and thoracic aorta is seen. Esophagus is normal in caliber, with a small hiatal hernia. Bones and chest wall: No suspicious bony lesions. Ribs and thoracic spine appear intact throughout. Thyroid gland is within normal limits. No axillary or supraclavicular adenopathy. Abdomen: Visualized upper abdomen shows moderate amount of ascites fluid and cirrhotic appearing liver. There is prior cholecystectomy. IMPRESSION: 1. No evidence of pulmonary emboli. Borderline ascending thoracic aortic aneurysm measures 4 cm in largest AP diameter. No aortic dissection. 2. Prominent pulmonary artery size suggestive of pulmonary vascular hypertension. Cardiomegaly, no pericardial effusion. 3. Scattered scarring/atelectasis in periphery of bilateral lung cuevas. No focal infiltrate, pleural effusion or pneumothorax. Airway is patent. 4. Small hiatal hernia. Moderate to large ascites fluid in upper abdomen with cirrhotic appearing liver. Findings are not significantly changed from prior study. Dictated by: Antwon Redd M.D. on 03/31/2021 at 18:45 Approved by: Antwon Redd M.D. on 03/31/2021 at 18:52
[2021-03-31] MEDS: methylPREDNISolone 125 MG/2 ML VIAL IV (18:10)
[2021-03-31] MEDS: diphenhydrAMINE 50 MG/ML VIAL IV (18:10)
== END 2021-03-31 19:36 | disposition home or self-care (01) ==
PROVIDERS: Emergency Provider Emergency Medicine; PCP Registered Nurse
DX: R60.0 Localized edema (principal); I10 Essential (primary) hypertension; R79.1 Abnormal coagulation profile
CPT/HCPCS: 36415; 71275; 80053; 81003; 81015; 82140; 83690; 83880; 85025; 85379; 87077; 87086; 87186; 93005; 93010; 93970; 96374; 96375; 99284; J1200; J1940; J2930; Q9967

== ENCOUNTER 2021-04-08 18:54 | Emergency (ER) | payer MEDICARE, MEDICAID, SELFPAY ==
[2021-01-16 01:23] VITALS: BMI 19.1
[2021-04-08] VITALS (8 sets, daily range): BP systolic 158–236; BP diastolic 77–126; PULSE 72–80; RESP 15–20; TEMP 36.3; O2SAT 96–100; BMI 21.9
[2021-04-08 19:45] LABS: Add Manual Diff / Slide Review NO; Basophils Absolute Auto 0 /uL (0-100); Basophils Percent Auto 0.3 % (0-2); Eosinophils Absolute Auto 100 /uL (0-450); Eosinophils Percent Auto 0.7 % (2-4); Hemoglobin 10.3 g/dL (12.0-16.0); Lymphocytes Absolute Auto 1300 /uL (1100-4500); Lymphocytes Percent Auto 16.4 % (25-40); Mean Corpuscular Hemoglobin 24.9 PG (26-34); Mean Corpuscular Volume 77.9 fL (80-100); Monocytes Absolute Auto 700 /uL (0-900); Monocytes Percent Auto 8.9 % (3-14); Neutrophils Absolute Auto 6000 /uL (1500-7000); Neutrophils Percent Auto 73.7 % (50-75); Platelet Count 302 X10^3/uL (150-400); Red Blood Cell Count 4.11 X10^6/uL (4.0-5.2); Red Cell Distribution Width 17.8 % (11.6-14.8); White Blood Cell Count 8.1 X10^3/uL (4.5-11.0)
[2021-04-08 19:52] LABS: Alanine Aminotransferase 13 IU/L (<35); Albumin 3.4 g/dL (3.5-5.0); Alkaline Phosphatase 97 U/L (38-126); Aspartate Aminotransferase 20 IU/L (14-36); BUN Creatinine Ratio 11.7 (6-22); Bilirubin Total 0.5 mg/dL (0.2-1.3); Blood Urea Nitrogen 20 mg/dL (7-17); Calcium 8.8 mg/dL (8.4-10.2); Carbon Dioxide 17 mmol/L (22-32); Chloride 108 mmol/L (98-107); Globulin 3.4 g/dL (1.7-4.1); Glucose 250 mg/dL (80-110); HEMOLYSIS < 15 (0-50); Lipase 19 U/L (23-300); Potassium 3.9 mmol/L (3.4-5.1); Sodium 134 mmol/L (137-145); Total Protein 6.8 g/dL (6.3-8.2)
[2021-04-08 19:53] LABS: Magnesium 1.7 mg/dL (1.6-2.3)
--- NOTE | 2021-04-08 20:51 | PC.NURSE ---
Pt states she voided prior to arrival and despite attempts on commode has not been able to supply a sample.
--- NOTE | 2021-04-08 20:55 | ED_ITS ---
HPI - General Adult General Chief complaint: Urogenital-Female Stated complaint: possible UTI Time Seen by Provider: 04/08/21 19:08 Source: patient and family Mode of arrival: Ambulatory History of Present Illness HPI narrative: 66-year-old woman with brittle diabetes, vascular dementia, hypertension, hyperlipidemia prior lower GI bleeds history of a stroke and prior myocardial infarction presents with concerns that her urine is more concentrated and foul smelling and she wants to make sure she does not have a bladder infection. She is having no fevers, abdominal pain, flank pain or dysuria. She describes no cough, syncope, palpitations, dyspnea or orthopnea. She does note that her lower extremities have been moderately swollen over the last number of days. Her sugars have been running in the 300 range which is not unusual for her. Related Data Home Medications Medication Instructions Recorded Confirmed cholecalciferol (vitamin D3) 25 1,000 unit PO BID 10/08/17 02/10/21 mcg (1,000 unit) capsule (Vitamin D3) cyanocobalamin (vitamin B-12) 1,000 mcg PO DAILY 08/02/19 02/10/21 1,000 mcg tablet (Vitamin B-12) metoclopramide HCl 5 mg tablet 5 mg PO QAC 12/14/20 02/10/21 (Reglan) Previous Rx's Medication Instructions Recorded Glucose Test strips #100 ea 03/28/21 amlodipine 10 mg tablet 10 mg PO DAILY #90 tab 03/29/21 atorvastatin 20 mg tablet (Lipitor) 40 mg PO BEDTIME #90 tab 03/29/21 insulin aspart U-100 100 unit/mL 1 sliding scale dose SUBCUT 03/29/21 (3 mL) subcutaneous pen (Novolog QIDACHS #15 ml Flexpen U-100 Insulin aspart) insulin glargine 100 unit/mL (3 12 unit (0.12 mL) SUBCUT QPM #15 ml 03/29/21 mL) subcutaneous pen (Lantus Solostar U-100 Insulin) lisinopril 20 mg tablet 20 mg PO DAILY #90 tab 03/29/21 oxybutynin chloride 5 mg tablet 5 mg PO DAILY #90 tab 03/29/21 pantoprazole 40 mg tablet,delayed 20 mg PO BID #180 tab 03/29/21 release (Protonix) sucralfate 1 gram tablet (Carafate) 1 g PO QID #360 tab 03/30/21 cephalexin 500 mg capsule 500 mg PO TID #21 cap 04/08/21 Allergies Allergy/AdvReac Type Severity Reaction Status Date / Time Iodine and Iodide Containing Allergy Unknown Verified 04/08/21 19:06 Produc [IODINE AND IODIDE CONTAINING PRODUC] latex [LATEX] Allergy Unknown Verified 04/08/21 19:06 Review of Systems Review of Systems Narrative: Remainder of complete review of systems is otherwise unremarkable except for that included in the HPI. Patient History Medical History Dow's esophagus with esophagitis CVA (cerebral vascular accident) Dementia Diabetes Gallbladder disease GERD (gastroesophageal reflux disease) Hyperlipidemia Hypertension Overactive bladder Post-menopausal Screening for malignant neoplasm of colon Subdural hematoma Swelling of left lower extremity Upper GI bleed Surgical History History of cholecystectomy Tubal ligation status Family History Mother Heart disease Father No problems noted. Social History household members: significant other Smoking Status: Former smoker alcohol intake: former Smoking Status: Former smoker tobacco type: cigarettes alcohol intake frequency: holidays/special occasions only Alcohol type: hard liquor Substance Use Type: marijuana Exam Narrative Exam Narrative: General: Chronically ill-appearing but in no acute distress. Able to give a complete and coherent history. Well-nourished well-developed HEENT: Moist mucous membranes, normal sclera with reactive pupils, Neck: No JVD, supple Respiratory: Lungs are clear to auscultation, no wheezing no rales no rhonchi. Full and symmetrical air movement Cardiac: Regular rate and rhythm no murmurs no bruits Abdomen: Soft, mildly distended but nontender and good bowel tones, no flank pain Skin: Warm and dry, no rashes Neurologic: Grossly neurologically intact with no obvious asymmetries or abnormalities Extremities: No trauma, well perfused, 2+ bilateral lower extremity edema Psych: Cooperative, appropriate insight and affect Initial Vital Signs Initial Vital Signs: Vital Signs Temperature 97.3 F L 04/08/21 19:06 Pulse Rate 77 04/08/21 19:06 Respiratory Rate 20 04/08/21 19:06 Blood Pressure 201/95 H 04/08/21 19:06 Pulse Oximetry 100 04/08/21 19:06 Course Orders Ordered: ED Orders 04/08/21 19:10 Complete Blood Count AUTO DIFF Stat Comprehensive Metabolic Panel Stat Lipase Stat Magnesium Stat 04/08/21 21:30 Urinalysis and Microscopic Stat Urine Culture Stat Discontinued Medications Furosemide (Furosemide 40 Mg/4 Ml Vial) 20 mg IV NOW ONE Stop: 04/08/21 22:01 Last Admin: 04/08/21 22:13 Dose: 20 mg Documented by: [email or web address] Hydromorphone HCl (Hydromorphone 1 Mg Inj) 1 mg IV NOW ONE Stop: 04/08/21 19:34 Last Admin: 04/08/21 20:35 Dose: Not Given Documented by: ANNE Ceftriaxone Sodium 2,000 mg/ (Sodium Chloride) 100 mls @ 200 mls/hr IV NOW ONE Stop: 04/08/21 22:01 Last Infusion: 04/08/21 22:45 Dose: 0 mls/hr Documented by: Admin: 04/08/21 22:14 Dose: 200 mls/hr Documented by: ANNE Vital Signs Vital signs: Vital Signs - 8 hr 04/08/21 19:06 04/08/21 20:28 04/08/21 20:30 Temperature 97.3 F L Pulse Rate 77 77 72 Respiratory Rate 20 16 15 Blood Pressure 201/95 H 236/126 H 167/81 H Pulse Oximetry 100 100 99 04/08/21 20:55 04/08/21 21:00 04/08/21 21:30 Temperature Pulse Rate 74 74 80 Respiratory Rate Blood Pressure 158/77 H 161/91 H Pulse Oximetry 96 100 100 04/08/21 22:00 04/08/21 22:30 Temperature Pulse Rate 75 75 Respiratory Rate 16 Blood Pressure 167/79 H 162/83 H Pulse Oximetry 98 97 Medical Decision Making Lab Data Result diagrams: 04/08/21 19:10 04/08/21 19:10 Labs: Lab Results 04/08/21 04/08/21 04/08/21 Range/Units 19:10 19:10 19:10 WBC 8.1 (4.5-11.0) X10^3/uL RBC 4.11 (4.0-5.2) X10^6/uL Hgb 10.3 L (12.0-16.0) g/dL Hct 32.0 L (36-46) % MCV 77.9 L (80-100) fL MCH 24.9 L (26-34) PG MCHC 32.0 (30-36) % RDW 17.8 H (11.6-14.8) % Plt Count 302 (150-400) X10^3/uL Neut % (Auto) 73.7 (50-75) % Lymph % (Auto) 16.4 L (25-40) % [place] % (Auto) 8.9 (3-14) % Eos % (Auto) 0.7 L (2-4) % Baso % (Auto) 0.3 (0-2) % Neut # (Auto) 6000 (6541-6539) /uL Lymph # (Auto) 1300 (0426-3830) /uL [place] # (Auto) 700 (0-900) /uL Eos # (Auto) 100 (0-450) /uL Baso # (Auto) 0 (0-100) /uL Sodium 134 L (137-145) mmol/L Potassium 3.9 (3.4-5.1) mmol/L Chloride 108 H (98-107) mmol/L Carbon Dioxide 17 L (22-32) mmol/L BUN 20 H (7-17) mg/dL Creatinine 1.71 H (0.52-1.04) mg/dL Estimated GFR 30.0 L (>60) mL/min BUN/Creatinine Ratio 11.7 (6-22) Glucose 250 H (80-110) mg/dL Calcium 8.8 (8.4-10.2) mg/dL Magnesium 1.7 (1.6-2.3) mg/dL Total Bilirubin 0.5 (0.2-1.3) mg/dL AST 20 (14-36) IU/L ALT 13 (<35) IU/L Alkaline Phosphatase 97 (38-126) U/L Total Protein 6.8 (6.3-8.2) g/dL Albumin 3.4 L (3.5-5.0) g/dL Globulin 3.4 (1.7-4.1) g/dL Albumin/Globulin Ratio 1.0 (1.0-2.8) Lipase 19 L (23-300) U/L Urine Color Urine Appearance Urine pH (4.5-8.0) Ur Specific [place] (1.000-1.035) Urine Protein (Negative) Urine Glucose (UA) (Negative) g/dL Urine Ketones (NEGATIVE) Urine Occult Blood (Negative) Urine Nitrate (Negative) Urine Bilirubin (NEGATIVE) Urine Urobilinogen (0.2) E.U./dL Ur Leukocyte Esterase (NEGATIVE) Urine RBC (0-5/HPF) Urine WBC (0-5/HPF) Ur Squamous Epith Cells (0-5/HPF) Urine Bacteria (None) Ur Culture Indicated? 04/08/21 Range/Units 21:30 WBC (4.5-11.0) X10^3/uL RBC (4.0-5.2) X10^6/uL Hgb (12.0-16.0) g/dL Hct (36-46) % MCV (80-100) fL MCH (26-34) PG MCHC (30-36) % RDW (11.6-14.8) % Plt Count (150-400) X10^3/uL Neut % (Auto) (50-75) % Lymph % (Auto) (25-40) % [place] % (Auto) (3-14) % Eos % (Auto) (2-4) % Baso % (Auto) (0-2) % Neut # (Auto) (5423-1986) /uL Lymph # (Auto) (3872-3246) /uL [place] # (Auto) (0-900) /uL Eos # (Auto) (0-450) /uL Baso # (Auto) (0-100) /uL Sodium (137-145) mmol/L Potassium (3.4-5.1) mmol/L Chloride (98-107) mmol/L Carbon Dioxide (22-32) mmol/L BUN (7-17) mg/dL Creatinine (0.52-1.04) mg/dL Estimated GFR (>60) mL/min BUN/Creatinine Ratio (6-22) Glucose (80-110) mg/dL Calcium (8.4-10.2) mg/dL Magnesium (1.6-2.3) mg/dL Total Bilirubin (0.2-1.3) mg/dL AST (14-36) IU/L ALT (<35) IU/L Alkaline Phosphatase (38-126) U/L Total Protein (6.3-8.2) g/dL Albumin (3.5-5.0) g/dL Globulin (1.7-4.1) g/dL Albumin/Globulin Ratio (1.0-2.8) Lipase (23-300) U/L Urine Color Yellow Urine Appearance Cloudy Urine pH 5.0 (4.5-8.0) Ur Specific [place] 1.020 (1.000-1.035) Urine Protein 3+ H (Negative) Urine Glucose (UA) 1+ H (Negative) g/dL Urine Ketones Negative (NEGATIVE) Urine Occult Blood 2+ H (Negative) Urine Nitrate Negative (Negative) Urine Bilirubin Negative (NEGATIVE) Urine Urobilinogen 0.2 (0.2) E.U./dL Ur Leukocyte Esterase Trace H (NEGATIVE) Urine RBC None seen (0-5/HPF) Urine WBC >100/hpf H (0-5/HPF) Ur Squamous Epith Cells 0-1 /hpf (0-5/HPF) Urine Bacteria Many (>30) H (None) Ur Culture Indicated? Specimen cultured MDM Narrative Medical decision making narrative: 66-year-old woman with complex medical history presents with urine that smells if she is developing a bladder infection with no other complaints. Her urine does in fact look like she is developing a bladder infection, most recent urine from March 31 is growing Citrobacter that is pansensitive. Will give her a dose of 2 g of ceftriaxone in the emergency department. At this time there is no evidence of significant dehydration, dka, sepsis, pyelonephritis, congestive heart failure or acute coronary syndrome. For her lower extremity edema will give her a small dose of Lasix along with the ceftriaxone in the emergency department. Will anticipate discharge home with cephalexin for treatment. Discharge Plan Departure Patient Disposition: Home Clinical Impression: Poorly controlled diabetes mellitus, Urinary tract infection Instructions: DI for Urinary Tract Infection (UTI) Activity Restrictions/Additional Instructions: Thank you for coming in today Your absolutely correct, that strong smelling urine is in fact a bladder infection. Based on a culture that was done on March 31, I have given you IV antibiotics in the emergency department and I am going to heavy complete an additional 7 days of cephalexin 500 mg 3 times a day. Prescription was electronically transmitted to [facility] The remainder of your blood work is very reassuring. I am not seeing any evidence of kidney infection, infection spreading 3 your whole body(sepsis), heart attack, heart failure or other things that might require hospitalization. Keep your scheduled appointment on Saturday with your primary care doctor If you feel that you are getting worse or having new symptoms, please return to the ER. Prescriptions: New cephalexin 500 mg capsule 500 mg PO TID Qty: 21 0RF No Action (DME) Glucose Test strips See Rx Instructions .Route .MEDSUPPLY Qty: 100 11RF Rx Instructions: Use to test blood sugars four times daily. amlodipine 10 mg tablet 10 mg PO DAILY Qty: 90 2RF atorvastatin [Lipitor] 20 mg tablet 40 mg PO BEDTIME Qty: 90 2RF insulin aspart U-100 [Novolog Flexpen U-100 Insulin] 100 unit/mL (3 mL) insulin pen 1 sliding scale dose subcut QIDACHS Qty: 15 2RF Lantus Solostar U-100 Insulin 100 unit/mL (3 mL) insulin pen 12 unit SUBCUT QPM Qty: 15 2RF lisinopril 20 mg tablet 20 mg PO DAILY Qty: 90 2RF oxybutynin chloride 5 mg tablet 5 mg PO DAILY Qty: 90 2RF pantoprazole [Protonix] 40 mg tablet,delayed release (DR/EC) 20 mg PO BID Qty: 180 2RF sucralfate [Carafate] 1 gram tablet 1 g PO QID Qty: 360 2RF cholecalciferol (vitamin D3) [Vitamin D3] 1,000 unit Capsule 1,000 unit PO BID 0RF cyanocobalamin (vitamin B-12) [Vitamin B-12] 1,000 mcg Tablet 1,000 mcg PO DAILY 0RF metoclopramide HCl [Reglan] 5 mg Tablet 5 mg PO QAC 0RF Referrals: Carmina Madrigal ARNP [Primary Care Provider] -
[2021-04-08] MEDS: FUROSEMIDE 40 MG/4 ML VIAL 20 MG IV (22:13)
[2021-04-08] MEDS: cefTRIAXone 2,000 MG in SODIUM CHLORIDE 0.9% 100 ML 200 ML IV (22:14)
[2021-04-08 22:38] LABS: Bilirubin Urine UA NEGATIVE (NEGATIVE); Color Urine UA YELLOW; Glucose Urine UA 1+ g/dL (Negative); Ketones Urine UA NEGATIVE (NEGATIVE); Leukocyte Esterase Urine UA TRACE (NEGATIVE); Nitrite Urine UA NEGATIVE (Negative); Occult Blood Urine UA 2+ (Negative); Protein Urine UA 3+ (Negative); Urobilinogen Urine UA 0.2 E.U./dL (0.2)
[2021-04-08 22:39] LABS: Appearance Urine UA Cloudy
[2021-04-08 22:51] LABS: Bacteria Urine Many (>30); Culture Indicated Urine Specimen Cultured; RBC Urine None Seen (0-5/HPF); Squamous Epithelial Cell Urine 0-1 /HPF (0-5/HPF); WBC Urine >100/HPF (0-5/HPF)
== END 2021-04-08 23:00 | disposition home or self-care (01) ==
PROVIDERS: Emergency Provider Emergency Medicine; PCP Registered Nurse
DX: N39.0 Urinary tract infection, site not specified (principal); E11.65 Type 2 diabetes mellitus with hyperglycemia
CPT/HCPCS: 36415; 51701; 51798; 80053; 81001; 83690; 83735; 85025; 87077; 87086; 87186; 96365; 96375; 99284; J0696; J1940

== ENCOUNTER 2021-04-15 07:23 | Emergency (ER) | payer MEDICARE, MEDICAID, SELFPAY ==
[2021-01-16 01:23] VITALS: BMI 19.1
[2021-04-15] VITALS (22 sets, daily range): BP systolic 149–179; BP diastolic 76–91; PULSE 71–107; RESP 16–20; TEMP 37.2; O2SAT 95–100; BMI 24.0
--- NOTE | 2021-04-15 07:41 | ED_ITS ---
HPI - General Adult General Chief complaint: Weakness Stated complaint: Swollen hands/Feet Time Seen by Provider: 04/15/21 07:32 Source: patient Mode of arrival: EMS Limitations: no limitations History of Present Illness HPI narrative: 66-year-old female with a complicated medical history who was brought in for juan josé luation of swollen hands and feet and face. She has been seen here a couple times over the past month for various issues. The last time was for a urinary tract infection where was mention that she was having swollen feet. She was given Lasix and discharged home on antibiotics and Lasix. Earlier in the month she was seen for swelling as well. Was given Lasix. According to the note she diuresed and was discharged home. Patient denies chest pain. Denies shortness of breath. She did receive 50 of Benadryl by EMS in route for concerns of a potential allergic reaction. Related Data Home Medications Medication Instructions Recorded Confirmed cholecalciferol (vitamin D3) 25 1,000 unit PO BID 10/08/17 02/10/21 mcg (1,000 unit) capsule (Vitamin D3) cyanocobalamin (vitamin B-12) 1,000 mcg PO DAILY 08/02/19 02/10/21 1,000 mcg tablet (Vitamin B-12) metoclopramide HCl 5 mg tablet 5 mg PO QAC 12/14/20 02/10/21 (Reglan) Previous Rx's Medication Instructions Recorded Glucose Test strips #100 ea 03/28/21 amlodipine 10 mg tablet 10 mg PO DAILY #90 tab 03/29/21 atorvastatin 20 mg tablet (Lipitor) 40 mg PO BEDTIME #90 tab 03/29/21 insulin aspart U-100 100 unit/mL 1 sliding scale dose SUBCUT 03/29/21 (3 mL) subcutaneous pen (Novolog QIDACHS #15 ml Flexpen U-100 Insulin aspart) insulin glargine 100 unit/mL (3 12 unit (0.12 mL) SUBCUT QPM #15 ml 03/29/21 mL) subcutaneous pen (Lantus Solostar U-100 Insulin) lisinopril 20 mg tablet 20 mg PO DAILY #90 tab 03/29/21 oxybutynin chloride 5 mg tablet 5 mg PO DAILY #90 tab 03/29/21 pantoprazole 40 mg tablet,delayed 20 mg PO BID #180 tab 03/29/21 release (Protonix) sucralfate 1 gram tablet (Carafate) 1 g PO QID #360 tab 03/30/21 cephalexin 500 mg capsule 500 mg PO TID #21 cap 04/08/21 furosemide 20 mg tablet (Lasix) 20 mg PO DAILY #30 tab 04/15/21 Allergies Allergy/AdvReac Type Severity Reaction Status Date / Time Iodine and Iodide Containing Allergy Unknown Verified 04/08/21 19:06 Produc [IODINE AND IODIDE CONTAINING PRODUC] latex [LATEX] Allergy Unknown Verified 04/08/21 19:06 Review of Systems Constitutional Constitutional: Denies fever(s) Cardiovascular Cardiovascular: Denies chest pain and Denies dyspnea Respiratory Respiratory: Denies dyspnea Gastrointestinal Gastrointestinal: Reports bloating Genitourinary Genitourinary: Reports urinary incontinence Musculoskeletal Comments: Lower extremity swelling Neurologic Neurologic: Reports system reviewed and no additional complaints, except as documented Hematologic/Lymphatic On Anticoagulants: No Patient History Medical History Dow's esophagus with esophagitis CVA (cerebral vascular accident) (~2017) Dementia Diabetes Fractures Gallbladder disease GERD (gastroesophageal reflux disease) History of urinary incontinence (~2017) Hyperlipidemia Hypertension Overactive bladder Partial blindness Post-menopausal Screening for malignant neoplasm of colon Subdural hematoma Swelling of left lower extremity Upper GI bleed Vision disorder Surgical History (Updated 04/09/21 @ 20:07 by Kelly Del Toro) Anesthesia History of cholecystectomy History of hip replacement (~2019) History of surgery on arm Tubal ligation status Family History (Updated 04/09/21 @ 20:09 by Kelly Del Toro) Mother Heart disease Father No problems noted. Sister Cancer Social History household members: significant other Smoking Status: Former smoker alcohol intake: former Smoking Status: Former smoker tobacco type: cigarettes alcohol intake frequency: holidays/special occasions only Alcohol type: hard liquor Substance Use Type: marijuana Exam Initial Vital Signs Initial Vital Signs: Vital Signs Pulse Rate 107 H 04/15/21 07:30 Pulse Oximetry 97 04/15/21 07:30 Const General: cooperative and comfortable Resp Effort & Inspection: normal respiratory effort Auscultation: clear to auscultation bilaterally Cardio Rate: regular rate Rhythm: regular rhythm GI Inspection: distended Palpation: soft, No firm, No guarding and No tender Neuro General: patient alert and patient awake Speech: speech normal Extrem General: capillary refill normal and edema (Hands and feet) Psych Appearance: well kempt Course Orders Ordered: ED Orders 04/15/21 10:02 CT head/brain wo con Stat Discontinued Medications Furosemide (Furosemide 40 Mg/4 Ml Vial) 40 mg IV NOW ONE Stop: 04/15/21 07:45 Last Admin: 04/15/21 09:38 Dose: 40 mg Documented by: GONZALO Vital Signs Vital signs: Vital Signs - 8 hr 04/15/21 11:00 04/15/21 11:30 04/15/21 11:32 Pulse Rate 82 78 78 Respiratory Rate 19 19 20 Blood Pressure 160/82 H Pulse Oximetry 96 98 98 04/15/21 11:43 04/15/21 12:00 04/15/21 12:30 Pulse Rate 76 78 77 Respiratory Rate 19 18 19 Blood Pressure 158/84 H 154/77 H 170/85 H Pulse Oximetry 97 95 100 04/15/21 13:00 04/15/21 13:30 04/15/21 14:00 Pulse Rate 74 75 71 Respiratory Rate 19 19 16 Blood Pressure 156/85 H 156/82 H 179/84 H Pulse Oximetry 97 98 98 04/15/21 14:30 04/15/21 15:00 04/15/21 15:30 Pulse Rate 75 79 77 Respiratory Rate 19 17 19 Blood Pressure 149/76 H 169/80 H Pulse Oximetry 95 96 97 Medical Decision Making Medical Records Medical records reviewed: Yes I reviewed the patient's medical records. Lab Data Lab results reviewed: Yes I reviewed the patient's lab results. Result diagrams: 04/15/21 08:50 04/15/21 08:50 Labs: Lab Results 04/15/21 04/15/21 Range/Units 08:50 08:50 WBC 8.1 (4.5-11.0) X10^3/uL RBC 3.69 L (4.0-5.2) X10^6/uL Hgb 9.2 L (12.0-16.0) g/dL Hct 28.6 L (36-46) % MCV 77.7 L (80-100) fL MCH 25.0 L (26-34) PG MCHC 32.2 (30-36) % RDW 17.5 H (11.6-14.8) % Plt Count 260 (150-400) X10^3/uL Neut % (Auto) 77.0 H (50-75) % Lymph % (Auto) 11.9 L (25-40) % Stephens % (Auto) 6.9 (3-14) % Eos % (Auto) 1.4 L (2-4) % Baso % (Auto) 2.8 H (0-2) % Neut # (Auto) 6200 (7507-6283) /uL Lymph # (Auto) 1000 L (5965-5820) /uL Stephens # (Auto) 600 (0-900) /uL Eos # (Auto) 100 (0-450) /uL Baso # (Auto) 200 H (0-100) /uL Sodium 137 (137-145) mmol/L Potassium 3.6 (3.4-5.1) mmol/L Chloride 109 H (98-107) mmol/L Carbon Dioxide 23 (22-32) mmol/L BUN 25 H (7-17) mg/dL Creatinine 1.69 H (0.52-1.04) mg/dL Estimated GFR 30.4 L (>60) mL/min BUN/Creatinine Ratio 14.8 (6-22) Glucose 233 H (80-110) mg/dL Calcium 8.2 L (8.4-10.2) mg/dL Phosphorus 3.8 (2.8-4.1) mg/dL Magnesium 1.7 (1.6-2.3) mg/dL Total Bilirubin 0.3 (0.2-1.3) mg/dL AST 21 (14-36) IU/L ALT 11 (<35) IU/L Alkaline Phosphatase 80 (38-126) U/L Total Creatine Kinase 78 (30-135) U/L CK-MB (CK-2) TNP CK-MB (CK-2) Rel Index TNP Troponin I 0.028 (0.01-0.034) ng/mL NT-Pro-B Natriuret Pep 6230 H (<125) pg/mL Total Protein 5.7 L (6.3-8.2) g/dL Albumin 2.7 L (3.5-5.0) g/dL Globulin 3.0 (1.7-4.1) g/dL Albumin/Globulin Ratio 0.9 L (1.0-2.8) Lipase 14 L (23-300) U/L Ketones 0.22 (<0.27) mmol/L Point of Care Testing Glucose POC 283 Point of care testing: Point of Care Testing Glucose POC [address] scan - head: Radiologist's Impression: [address] [address] [address] Scan Report Signed Patient: Kristine Moon MR#: [id number] : 1955 Acct:[id number] Age/Sex: 66 / F Date of Service: 04/15/21 Loc: ED Accession Number: [id number] ?? Procedure: CT head/brain wo con Ordering Provider: Brown Gonsales D.O. PROCEDURE:? CT HEAD/BRAIN WO CON ? INDICATIONS:? AMS ? TECHNIQUE:? Noncontrast 4.5 mm thick angled axial sections acquired from the foramen magnum to the vertex, with coronal and sagittal reformats.? For radiation dose reduction, the following was used:? automated exposure control, adjustment of mA and/or kV according to patient size.? ? COMPARISON:? [facility], CT, CT HEAD/BRAIN WO CON, 03/07/2020, 16:08.? [facility], CT, CT HEAD/BRAIN WO CON, 07/10/2020, 0:06.? [facility], MR, MR BRAIN WITHOUT CONTRAST, 07/10/2020, 14:21.? [facility], CT, CT HEAD/BRAIN WO CON, 12/13/2020, 19:01. ? FINDINGS:? Image quality:? Excellent.? ? CSF spaces:? Basal cisterns are patent.? No extra-axial fluid collections.? The ventricles are symmetric in size and shape.? ? Brain:? No intracranial bleeds or masses.? There is cerebral volume loss for age, with resultant ventricular and sulcal prominence.? There are periventricular and deep white matter chronic small vessel ischemic changes.? There is intracranial internal carotid artery atherosclerosis.? ? Skull and face:? Calvarium and visualized facial bones appear intact, without suspicious lesions.? ? Sinuses:? Visualized sinuses and mastoids are clear.? ? IMPRESSION:? Unremarkable intracranial study for age, with note made brain parenchymal volume loss and chronic small vessel ischemic change. ? No significant change from the prior. ? ? Dictated by: Chase Mensah M.D. on 04/15/2021 at 9:41 ? ? Approved by: Chase Mensah M.D. on 04/15/2021 at 9:42? ECG Data Attestation: I personally reviewed and interpreted this ECG as follows: Prior ECG tracings: not available for review Interpretation: Sinus rhythm Ventricular rate 89 Left axis deviation Normal QRS Normal QTC Nonspecific ST T wave changes MDM Narrative Medical decision making narrative: Patient received 50 mg of IV Benadryl prior to arrival for concern of potential allergic reaction. I feel that this is more fluid overload rather than allergic reaction. She has no other indication of anaphylaxis. We will hold on steroids. Patient does have swelling to hands and feet. No swelling to her face although family at bedside showed me a picture of her face earlier today and there was swelling in this area. Patient has had fluid overload in the past has required IV Lasix which has improved things. She is not on Lasix at home. Patient does have mobility difficulties. We are changing the patient she did have excoriation in her perineal area most likely from sitting in a wet brief for extended periods of time a Anderson catheter was placed. She was given Lasix. She diuresed approximately 1 L of fluid. During her extended stay here in the emergency department she did have a period of time where she became difficult to arouse. She was responsive and was able to squeeze her hands and move her toes. Glucose was checked and this was not the issue. No signs of DKA. Head CT was ordered there was no signs of bleed or acute pathology. I suspect that her somnolence was related to the IV Benadryl that she received. This was the reason that she was here in the emergency department for extended period of time. She did recover from this. Was alert oriented. No respiratory distress. Plan of he is to send her home with a Anderson catheter in place because we are going to place her on Lasix for the next couple days and I feel that her perineal area will probably worsen secondary to the expected increase in her urine output. She was instructed to contact her primary doctor for follow-up to have this removed. She was given a prescription for Lasix. Was given return precautions and follow-up instructions. Expressed understanding and agreement. Discharge Plan Departure Patient Disposition: Home Clinical Impression: Edema Instructions: How to Care for Your Anderson Catheter -- Female, Edema Activity Restrictions/Additional Instructions: You can continue to take all of your medications as directed. I do recommend on Saturday you contact your primary doctor for a follow-up. Return to the emergency department for any new or worsening symptoms. Prescriptions: New furosemide [Lasix] 20 mg tablet 20 mg PO DAILY Qty: 30 0RF No Action (DME) Glucose Test strips See Rx Instructions .Route .MEDSUPPLY Qty: 100 11RF Rx Instructions: Use to test blood sugars four times daily. amlodipine 10 mg tablet 10 mg PO DAILY Qty: 90 2RF atorvastatin [Lipitor] 20 mg tablet 40 mg PO BEDTIME Qty: 90 2RF insulin aspart U-100 [Novolog Flexpen U-100 Insulin] 100 unit/mL (3 mL) insulin pen 1 sliding scale dose subcut QIDACHS Qty: 15 2RF Lantus Solostar U-100 Insulin 100 unit/mL (3 mL) insulin pen 12 unit SUBCUT QPM Qty: 15 2RF lisinopril 20 mg tablet 20 mg PO DAILY Qty: 90 2RF oxybutynin chloride 5 mg tablet 5 mg PO DAILY Qty: 90 2RF pantoprazole [Protonix] 40 mg tablet,delayed release (DR/EC) 20 mg PO BID Qty: 180 2RF sucralfate [Carafate] 1 gram tablet 1 g PO QID Qty: 360 2RF cholecalciferol (vitamin D3) [Vitamin D3] 1,000 unit Capsule 1,000 unit PO BID 0RF cyanocobalamin (vitamin B-12) [Vitamin B-12] 1,000 mcg Tablet 1,000 mcg PO DAILY 0RF cephalexin 500 mg capsule 500 mg PO TID Qty: 21 0RF metoclopramide HCl [Reglan] 5 mg Tablet 5 mg PO QAC 0RF Referrals: Carmina Madrigal ARNP [Primary Care Provider] -
[2021-04-15 09:09] LABS: Add Manual Diff / Slide Review NO; Basophils Absolute Auto 200 /uL (0-100); Basophils Percent Auto 2.8 % (0-2); Eosinophils Absolute Auto 100 /uL (0-450); Eosinophils Percent Auto 1.4 % (2-4); Hematocrit 28.6 % (36-46); Hemoglobin 9.2 g/dL (12.0-16.0); Lymphocytes Absolute Auto 1000 /uL (1100-4500); Lymphocytes Percent Auto 11.9 % (25-40); Mean Corpuscular HGB Conc 32.2 % (30-36); Mean Corpuscular Volume 77.7 fL (80-100); Monocytes Absolute Auto 600 /uL (0-900); Monocytes Percent Auto 6.9 % (3-14); Neutrophils Absolute Auto 6200 /uL (1500-7000); Platelet Count 260 X10^3/uL (150-400); Red Blood Cell Count 3.69 X10^6/uL (4.0-5.2); Red Cell Distribution Width 17.5 % (11.6-14.8); White Blood Cell Count 8.1 X10^3/uL (4.5-11.0)
[2021-04-15 09:18] LABS: HEMOLYSIS < 15 (0-50)
[2021-04-15 09:24] LABS: Alanine Aminotransferase 11 IU/L (<35); Albumin 2.7 g/dL (3.5-5.0); Albumin Globulin Ratio 0.9 (1.0-2.8); Alkaline Phosphatase 80 U/L (38-126); Aspartate Aminotransferase 21 IU/L (14-36); BUN Creatinine Ratio 14.8 (6-22); Bilirubin Total 0.3 mg/dL (0.2-1.3); Blood Urea Nitrogen 25 mg/dL (7-17); Calcium 8.2 mg/dL (8.4-10.2); Carbon Dioxide 23 mmol/L (22-32); Chloride 109 mmol/L (98-107); Creatine Kinase 78 U/L (30-135); Estimated Glomerular Filt Rate 30.4 mL/min (>60); Glucose 233 mg/dL (80-110); Lipase 14 U/L (23-300); Magnesium 1.7 mg/dL (1.6-2.3); Phosphorous 3.8 mg/dL (2.8-4.1); Potassium 3.6 mmol/L (3.4-5.1); Sodium 137 mmol/L (137-145); Total Protein 5.7 g/dL (6.3-8.2)
[2021-04-15 09:36] LABS: NT-proBNP (BNP-Adult 18+) 6230 pg/mL (<125); Troponin I 0.028 ng/mL (0.01-0.034)
[2021-04-15] MEDS: FUROSEMIDE 40 MG/4 ML VIAL IV (09:38)
[2021-04-15 09:47] LABS: Ketones (Beta-Hydroxybutyrate) 0.22 mmol/L (<0.27)
--- NOTE | 2021-04-15 10:02 | DI.CT.S_ITS ---
PROCEDURE: CT HEAD/BRAIN WO CON INDICATIONS: AMS TECHNIQUE: Noncontrast 4.5 mm thick angled axial sections acquired from the foramen magnum to the vertex, with coronal and sagittal reformats. For radiation dose reduction, the following was used: automated exposure control, adjustment of mA and/or kV according to patient size. COMPARISON: [facility], CT, CT HEAD/BRAIN WO CON, 03/07/2020, 16:08. [facility], CT, CT HEAD/BRAIN WO CON, 07/10/2020, 0:06. [facility], MR, MR BRAIN WITHOUT CONTRAST, 07/10/2020, 14:21. [facility], CT, CT HEAD/BRAIN WO CON, 12/13/2020, 19:01. FINDINGS: Image quality: Excellent. CSF spaces: Basal cisterns are patent. No extra-axial fluid collections. The ventricles are symmetric in size and shape. Brain: No intracranial bleeds or masses. There is cerebral volume loss for age, with resultant ventricular and sulcal prominence. There are periventricular and deep white matter chronic small vessel ischemic changes. There is intracranial internal carotid artery atherosclerosis. Skull and face: Calvarium and visualized facial bones appear intact, without suspicious lesions. Sinuses: Visualized sinuses and mastoids are clear. IMPRESSION: Unremarkable intracranial study for age, with note made brain parenchymal volume loss and chronic small vessel ischemic change. No significant change from the prior. Dictated by: Chase Mensah M.D. on 04/15/2021 at 9:41 Approved by: Chase Mensah M.D. on 04/15/2021 at 9:42
--- NOTE | 2021-04-15 11:40 | PC.NURSE ---
Patient is less responsive in the past 60 minutes. EMS gave pt 50mg Benedryl, patient increasingly sleepy but responsive to commands, knows her caregiver by name and recognizes him at the bedside, able to squeeze both hands bilaterally and independently, good cad detailer strength.
--- NOTE | 2021-04-15 13:12 | PC.NURSE ---
Patient is alert to place, situation and self. Able to maintain a conversation.
--- NOTE | 2021-04-15 16:23 | PC.NURSE ---
Leg bag attached to terrazas cath and educated pt and on use and how to clean. assisted pt with dressing and assisted into wheelchair.
== END 2021-04-15 16:26 | disposition home or self-care (01) ==
PROVIDERS: Emergency Provider Emergency Medicine; PCP Registered Nurse
DX: R60.1 Generalized edema (principal); R40.0 Somnolence; I10 Essential (primary) hypertension; Z87.891 Personal history of nicotine dependence
CPT/HCPCS: 36415; 70450; 80053; 82009; 82550; 82962; 83690; 83735; 83880; 84100; 84484; 85025; 87086; 93005; 96374; 99284; J1940

== ENCOUNTER → 2021-05-02 12:51 | Outpatient (CLI) | payer MEDICARE, MEDICAID, SELFPAY ==
[2021-04-18 10:04] VITALS: BMI 19.1
[2021-05-02 14:44] LABS: Alanine Aminotransferase 10 IU/L (<35); Albumin 3.4 g/dL (3.5-5.0); Alkaline Phosphatase 106 U/L (38-126); Aspartate Aminotransferase 17 IU/L (14-36); BUN Creatinine Ratio 15.6 (6-22); Bilirubin Total 0.6 mg/dL (0.2-1.3); Blood Urea Nitrogen 28 mg/dL (7-17); Calcium 9.2 mg/dL (8.4-10.2); Carbon Dioxide 24 mmol/L (22-32); Chloride 103 mmol/L (98-107); Estimated Glomerular Filt Rate 28.4 mL/min (>60); Globulin 3.3 g/dL (1.7-4.1); Glucose 203 mg/dL (80-110); HEMOLYSIS < 15 (0-50); Magnesium 1.6 mg/dL (1.6-2.3); Sodium 134 mmol/L (137-145); Total Protein 6.7 g/dL (6.3-8.2)
== END ==
PROVIDERS: PCP Registered Nurse; Referring Provider Nurse Practitioner; Visit Provider Nurse Practitioner
DX: E87.6 Hypokalemia (principal); T50.2X5A Adverse effect of carbonic-anhydrase inhibitors, benzothiadiazides and other diuretics, initial encounter
CPT/HCPCS: 36415; 80053; 83735

== ENCOUNTER → 2021-05-05 13:05 | Outpatient (CLI) | payer MEDICARE, MEDICAID, SELFPAY ==
[2021-04-18 10:04] VITALS: BMI 19.1
[2021-05-05 14:09] LABS: Appearance Urine UA CLOUDY; Bilirubin Urine UA NEGATIVE (NEGATIVE); Color Urine UA YELLOW; Glucose Urine UA 2+ g/dL (Negative); Ketones Urine UA NEGATIVE (NEGATIVE); Leukocyte Esterase Urine UA NEGATIVE (NEGATIVE); Nitrite Urine UA NEGATIVE (Negative); Occult Blood Urine UA TRACE-LYSED (Negative); Protein Urine UA 2+ (Negative); Urobilinogen Urine UA 0.2 E.U./dL (0.2)
[2021-05-05 14:41] LABS: Bacteria Urine Many (>30); Culture Indicated Urine Specimen Cultured; RBC Urine 1-5/HPF (0-5/HPF); Squamous Epithelial Cell Urine 1-5 /HPF (0-5/HPF); Transitional Epi Cells Urine 1-5/HPF (0-5/HPF); WBC Urine 5-10/HPF (0-5/HPF)
== END ==
PROVIDERS: Nurse Practitioner; PCP Registered Nurse; Referring Provider Registered Nurse; Visit Provider Registered Nurse
DX: T83.511A Infection and inflammatory reaction due to indwelling urethral catheter, initial encounter (principal); N39.0 Urinary tract infection, site not specified
CPT/HCPCS: 81001; 87077; 87086; 87186

== ENCOUNTER → 2021-06-09 08:56 | Outpatient (CLI) | payer MEDICARE, MEDICAID, SELFPAY ==
[2021-04-18 10:04] VITALS: BMI 19.1
[2021-06-09 09:28] LABS: Add Manual Diff / Slide Review NO; Basophils Absolute Auto 100 /uL (0-100); Basophils Percent Auto 1.1 % (0-2); Eosinophils Absolute Auto 100 /uL (0-450); Eosinophils Percent Auto 1.7 % (2-4); Hematocrit 27.1 % (36-46); Hemoglobin 8.8 g/dL (12.0-16.0); Lymphocytes Absolute Auto 1400 /uL (1100-4500); Lymphocytes Percent Auto 21.9 % (25-40); Mean Corpuscular HGB Conc 32.5 % (30-36); Mean Corpuscular Hemoglobin 24.8 PG (26-34); Mean Corpuscular Volume 76.5 fL (80-100); Monocytes Absolute Auto 500 /uL (0-900); Neutrophils Absolute Auto 4300 /uL (1500-7000); Neutrophils Percent Auto 67.3 % (50-75); Platelet Count 294 X10^3/uL (150-400); Red Blood Cell Count 3.55 X10^6/uL (4.0-5.2); Red Cell Distribution Width 16.8 % (11.6-14.8); White Blood Cell Count 6.4 X10^3/uL (4.5-11.0)
[2021-06-09 10:06] LABS: HEMOLYSIS 16 (0-50); Iron 40 ug/dL (37-170)
[2021-06-09 10:13] LABS: Alanine Aminotransferase 10 IU/L (<35); Albumin 3.2 g/dL (3.5-5.0); Alkaline Phosphatase 93 U/L (38-126); Aspartate Aminotransferase 17 IU/L (14-36); BUN Creatinine Ratio 17.1 (6-22); Bilirubin Total 0.5 mg/dL (0.2-1.3); Blood Urea Nitrogen 29 mg/dL (7-17); Carbon Dioxide 17 mmol/L (22-32); Chloride 110 mmol/L (98-107); Estimated Glomerular Filt Rate 30.2 mL/min (>60); Globulin 3.3 g/dL (1.7-4.1); Glucose 207 mg/dL (80-110); HEMOLYSIS < 15 (0-50); Potassium 3.9 mmol/L (3.4-5.1); Sodium 136 mmol/L (137-145); Total Protein 6.5 g/dL (6.3-8.2)
[2021-06-09 10:17] LABS: Percent Iron Saturation 13 % (15-50); Total Iron Binding Capacity 301 ug/dL (265-497); Transferrin 245 mg/dL (206-381)
[2021-06-09 10:38] LABS: Ferritin 18 ng/mL (11-264)
[2021-06-09 10:52] LABS: Vitamin B12 > 1000 pg/mL (239-931)
== END ==
PROVIDERS: PCP Registered Nurse; Referring Provider Family Medicine; Visit Provider Family Medicine
DX: I50.33 Acute on chronic diastolic (congestive) heart failure (principal); N18.9 Chronic kidney disease, unspecified; R60.0 Localized edema; D64.9 Anemia, unspecified; N18.32 Chronic kidney disease, stage 3b
CPT/HCPCS: 36415; 80053; 82607; 82728; 83540; 83550; 85025

== ENCOUNTER 2021-06-25 21:31 | Inpatient (IN) | payer MEDICARE, MEDICAID, SELFPAY ==
[2021-04-18 10:04] VITALS: BMI 19.1
[2021-06-25 21:36] VITALS: PULSE 84; O2SAT 98
--- NOTE | 2021-06-25 21:37 | DI.CT.S_ITS ---
PROCEDURE: CT HEAD/BRAIN WO CON INDICATIONS: fall TECHNIQUE: Noncontrast 4.5 mm thick angled axial sections acquired from the foramen magnum to the vertex, with coronal and sagittal reformats. For radiation dose reduction, the following was used: automated exposure control, adjustment of mA and/or kV according to patient size. COMPARISON: [facility], CT, CT HEAD/BRAIN WO CON, 04/15/2021, 10:12. FINDINGS: Image quality: Excellent. CSF spaces: Basal cisterns are patent. No extra-axial fluid collections. The ventricles are symmetric in size and shape. Brain: No intracranial bleeds or masses. There is cerebral volume loss for age, with resultant ventricular and sulcal prominence. There are periventricular and deep white matter chronic small vessel ischemic changes. There is intracranial internal carotid artery atherosclerosis. Skull and face: Calvarium and visualized facial bones appear intact, without suspicious lesions. Sinuses: Visualized sinuses and mastoids are clear. IMPRESSION: 1. No acute intracranial abnormality. 2. Microvascular ischemic disease. Dictated by: Jesús Adorno M.D. on 06/25/2021 at 22:20 Approved by: Jesús Adorno M.D. on 06/25/2021 at 22:22
--- NOTE | 2021-06-25 21:37 | DI.RAD.S_ITS ---
PROCEDURE: XR HIP W PEL IF DONE RT 2V INDICATIONS: fall TECHNIQUE: AP view of the pelvis and 1 views of the hip were acquired. COMPARISON: [facility], CR, XR HIP W PEL IF DONE LT 2V, 01/13/2020, 11:37. FINDINGS: Bones: There is a right intertrochanteric hip fracture. The right hip joint has degenerative changes. The left hip is status post hip replacement. Soft tissues: Vasculature has severe atherosclerotic calcifications, otherwise soft tissues are unremarkable. IMPRESSION: Right intertrochanteric hip fracture. Dictated by: Jesús Adorno M.D. on 06/25/2021 at 22:12 Approved by: Jesús Adorno M.D. on 06/25/2021 at 22:13
--- NOTE | 2021-06-25 21:37 | DI.CT.S_ITS ---
PROCEDURE: CT CERVICAL SPINE WO CON INDICATIONS: fall TECHNIQUE: Noncontrast 3 mm thick sections acquired from the skull base to the T4 level. Sagittal and coronal reformats were then constructed. For radiation dose reduction, the following was used: automated exposure control, adjustment of mA and/or kV according to patient size. COMPARISON: [facility], CT, CT CERVICAL SPINE WO CON, 03/07/2020, 16:08. FINDINGS: Image quality: Excellent. Bones: No fractures or dislocations. Visualized superior ribs are intact. Multilevel degenerative changes and disc disease. Vasculature has atherosclerotic calcifications. Soft tissues: Prevertebral soft tissues are normal in thickness. No paravertebral hematomas. No apical pneumothoraces. IMPRESSION: No acute traumatic abnormality of the cervical spine. Dictated by: Jesús Adorno M.D. on 06/25/2021 at 22:18 Approved by: Jesús Adorno M.D. on 06/25/2021 at 22:20
[2021-06-25 21:38] VITALS: BP 182/86; PULSE 92; RESP 18; TEMP 36.7; O2SAT 99
--- NOTE | 2021-06-25 22:09 | DI.RAD.S_ITS ---
PROCEDURE: XR CHEST 1V INDICATIONS: pre op TECHNIQUE: One view of the chest was acquired. COMPARISON: [facility], CR, XR CHEST 2V, 01/26/2021, 17:45. FINDINGS: Surgical changes and devices: None. Lungs and pleura: Lungs are clear. No pleural effusions or pneumothorax. Mediastinum: Mediastinal contours appear normal. Heart size is normal. The aorta has atherosclerotic calcifications. Bones and chest wall: No suspicious bony lesions. Overlying soft tissues appear unremarkable. IMPRESSION: No acute cardiopulmonary abnormality. Dictated by: Jesús Adorno M.D. on 06/25/2021 at 22:28 Approved by: Jesús Adorno M.D. on 06/25/2021 at 22:29
--- NOTE | 2021-06-25 22:23 | ED.FALL ---
HPI - Fall General Chief Complaint: Fall Stated Complaint: GLF Time Seen by Provider: 06/25/21 21:34 Source: patient and EMS Mode of arrival: EMS History of Present Illness HPI Narrative: 66-year-old woman with a history of kidney disease, diastolic heart failure, chronic anemia, prior CVA, developing dementia, lives with her significant other and suffered a fall this evening where she fell backward and hit the back of her head. Complaining only of right hip pain initially but with further exam is also having right flank and right posterior rib pain. She does not remember feeling short of breath, passing out having any palpitations or any other concerning symptoms prior to her fall. She states that she has not recently had fevers, cough, increase in lower extremity edema, palpitations, vomiting, diarrhea, abdominal pain. Related Data Home Medications Medication Instructions Recorded Confirmed cholecalciferol (vitamin D3) 25 1,000 unit PO BID 10/08/17 06/25/21 mcg (1,000 unit) capsule (Vitamin D3) cyanocobalamin (vitamin B-12) 1,000 mcg PO DAILY 08/02/19 06/25/21 1,000 mcg tablet (Vitamin B-12) lisinopril 20 mg tablet 20 mg PO DAILY 06/25/21 06/25/21 omeprazole 20 mg capsule,delayed 20 mg PO DAILY 06/25/21 06/25/21 release oxybutynin chloride 5 mg 5 mg PO DAILY 06/25/21 06/25/21 tablet,extended release 24 hr pantoprazole 20 mg tablet,delayed 20 mg PO DAILY 06/25/21 06/25/21 release (Protonix) Previous Rx's Medication Instructions Recorded Glucose Test strips #100 ea 03/28/21 amlodipine 10 mg tablet 10 mg PO DAILY #90 tab 03/29/21 atorvastatin 20 mg tablet (Lipitor) 40 mg PO BEDTIME #90 tab 03/29/21 insulin aspart U-100 100 unit/mL 1 sliding scale dose SUBCUT 03/29/21 (3 mL) subcutaneous pen (Novolog QIDACHS #15 ml Flexpen U-100 Insulin aspart) insulin glargine 100 unit/mL (3 12 unit (0.12 mL) SUBCUT QPM #15 ml 03/29/21 mL) subcutaneous pen (Lantus Solostar U-100 Insulin) sucralfate 1 gram tablet (Carafate) 1 g PO QID #360 tab 03/30/21 diaper,brief,adult,disposable #50 ea 05/03/21 (Briefs) furosemide 20 mg tablet (Lasix) 20 mg PO .COMPLEX #30 tab 06/16/21 Allergies Allergy/AdvReac Type Severity Reaction Status Date / Time Iodine and Iodide Containing Allergy Unknown Verified 06/08/21 18:35 Produc [IODINE AND IODIDE CONTAINING PRODUC] latex [LATEX] Allergy Unknown Verified 06/08/21 18:35 Review of Systems Review of Systems Narrative: Remainder of complete review of systems is otherwise unremarkable except for that included in the HPI. Patient History Medical History Acute on chronic diastolic heart failure Anemia Dow's esophagus with esophagitis Bilateral lower extremity edema CKD (chronic kidney disease) stage 3, GFR 30-59 ml/min CVA (cerebral vascular accident) (~2017) Dementia Diabetes Fractures Gallbladder disease GERD (gastroesophageal reflux disease) GERD (gastroesophageal reflux disease) History of urinary incontinence (~2017) Hyperlipidemia Hypertension Overactive bladder Partial blindness Post-menopausal Screening for malignant neoplasm of colon Subdural hematoma Swelling of left lower extremity Upper GI bleed Vision disorder Surgical History Anesthesia History of cholecystectomy History of hip replacement (~2019) History of surgery on arm Tubal ligation status Family History Mother Heart disease Father No problems noted. Sister Cancer Social History household members: significant other Smoking Status: Former smoker alcohol intake: former Smoking Status: Former smoker tobacco type: cigarettes alcohol intake frequency: holidays/special occasions only Alcohol type: hard liquor Substance Use Type: marijuana Exam Initial Vital Signs Initial Vital Signs: Vital Signs Pulse Rate 84 06/25/21 21:36 Pulse Oximetry 98 06/25/21 21:36 General: Frail, chronically ill-appearing complaining of right hip pain with mild cognitive dysfunction HEENT: Moist mucous membranes, normal sclera with reactive pupils, 2 cm linear partial-thickness laceration at the right occiput Neck: No JVD, supple Respiratory: Lungs are clear to auscultation, no wheezing no rales no rhonchi. Full and symmetrical air movement Chest: No obvious contusions or abrasions however she is moderately tender along the right posterior ribs right flank into the right hip and carried down through the right thigh. Cardiac: Regular rate and rhythm no murmurs no bruits Abdomen: Soft, nontender, good bowel tones, no flank pain, minor bruising from subcutaneous insulin over the lower abdomen Skin: Thin, Warm and dry, no rashes Neurologic: Mild chronic right upper extremity weakness, she is able to move all extremities Extremities: Right leg is externally rotated and foreshortened, well perfused with full sensation Psych: Cooperative, for overall insight and limited memory of events this evening Procedures Laceration Repair Right occiput: Time of procedure: 02:35 Site: scalp Side (If applicable): right Size (cm): 2 Description: linear Depth: simple, single layer Skin layer closed with: dermabond (and overlapping hair technique) Course Orders Ordered: ED Orders 06/25/21 21:37 CT cervical spine wo con Stat CT head/brain wo con Stat XR hip w pel if done RT 2V Stat 06/25/21 22:09 XR chest 1V Stat EKG-12 Lead Stat 06/25/21 22:28 COVID19 -Nasal swab/Pre-Proc Stat 06/25/21 22:37 Complete Blood Count AUTO DIFF Stat Comprehensive Metabolic Panel Stat Troponin I Stat 06/25/21 23:15 Urine Culture Stat 06/25/21 23:44 CT chest abd pel wo con Stat 06/26/21 EKG-12 Lead Routine 06/26/21 00:01 Urinalysis and Microscopic Stat 06/26/21 02:24 Education, smoking cessation ONGOING Dextrose (Dextrose 50 % In Water 25 Gm/50 Ml Syringe) 25 gm IV PRN PRN PRN Reason: Hypoglycemia Hydralazine HCl (Hydralazine 20 Mg/Ml Vial) 10 mg IV Q6HR PRN PRN Reason: Hypertension Hydromorphone HCl (Hydromorphone 1 Mg Inj) 0.5 mg IV Q15MIN PRN PRN Reason: pain Last Admin: 06/26/21 00:53 Dose: 0.5 mg Documented by: Admin: 06/25/21 23:22 Dose: 0.5 mg Documented by: Admin: 06/25/21 22:49 Dose: 0.5 mg Documented by: EMMY Hydromorphone HCl (Hydromorphone 0.5 Mg Inj) 0.5 mg IV Q4H PRN PRN Reason: Pain, Moderate (4-6) Sodium Chloride (Normal Saline 0.9%) 1,000 mls @ 150 mls/hr IV CONT [facility] Last Infusion: 06/26/21 03:13 Dose: 0 mls/hr Documented by: Admin: 06/25/21 22:36 Dose: 150 mls/hr Documented by: EMMY Sodium Chloride (Normal Saline 0.9%) 1,000 mls @ 80 mls/hr IV CONT [facility] Insulin Glargine (Insulin Glargine 100 Unit/Ml 3ml Pen) 10 unit SUBCUT 2100 MIRIAM Naloxone HCl (Naloxone 0.4 Mg/Ml Vial) 0.2 mg IV Q2MIN PRN PRN Reason: Opiate Reversal Ondansetron HCl (Ondansetron 4 Mg/2 Ml Inj) 4 mg IV Q8HR PRN PRN Reason: Nausea And Vomiting Discontinued Medications Hydromorphone HCl (Hydromorphone 0.5 Mg Inj) 0.5 mg IV Q15MIN PRN PRN Reason: Pain, Lidocaine HCl (Lidocaine 1% 20 Ml) 10 ml INJ NOW ONE Stop: 06/26/21 00:54 Last Admin: 06/26/21 01:07 Dose: Not Given Documented by: EMMY Morphine Sulfate (Morphine 10 Mg/Ml Inj) 10 mg IV Q4HR PRN PRN Reason: Pain, Severe (7-10) Vital Signs Vital signs: Vital Signs - 8 hr 06/25/21 21:36 06/25/21 21:38 06/25/21 22:51 Temperature 98.0 F Pulse Rate 84 92 H 78 Respiratory Rate 18 Blood Pressure 182/86 H Pulse Oximetry 98 99 99 06/25/21 22:52 06/25/21 23:00 06/25/21 23:30 Temperature Pulse Rate 80 78 72 Respiratory Rate Blood Pressure 149/72 H 157/77 H 148/69 H Pulse Oximetry 99 99 96 06/26/21 00:00 06/26/21 00:30 06/26/21 01:00 Temperature Pulse Rate 78 79 85 Respiratory Rate Blood Pressure 164/77 H Pulse Oximetry 98 97 95 06/26/21 01:05 06/26/21 01:30 06/26/21 02:00 Temperature Pulse Rate 88 83 82 Respiratory Rate Blood Pressure 165/82 H 153/80 H 168/79 H Pulse Oximetry 94 93 94 MDM - Fall Lab Data Result diagrams: 06/25/21 22:37 06/25/21 22:37 Labs: Lab Results 06/25/21 06/25/21 06/25/21 Range/Units 22:28 22:37 22:37 WBC 9.0 (4.5-11.0) X10^3/uL RBC 3.76 L (4.0-5.2) X10^6/uL Hgb 9.3 L (12.0-16.0) g/dL Hct 28.8 L (36-46) % MCV 76.7 L (80-100) fL MCH 24.8 L (26-34) PG MCHC 32.3 (30-36) % RDW 17.1 H (11.6-14.8) % Plt Count 267 (150-400) X10^3/uL Neut % (Auto) 77.6 H (50-75) % Lymph % (Auto) 12.6 L (25-40) % [place] % (Auto) 9.0 (3-14) % Eos % (Auto) 0.4 L (2-4) % Baso % (Auto) 0.4 (0-2) % Neut # (Auto) 7000 (3482-1946) /uL Lymph # (Auto) 1100 (0132-1110) /uL [place] # (Auto) 800 (0-900) /uL Eos # (Auto) 0 (0-450) /uL Baso # (Auto) 0 (0-100) /uL Sodium 132 L (137-145) mmol/L Potassium 3.7 (3.4-5.1) mmol/L Chloride 106 (98-107) mmol/L Carbon Dioxide 19 L (22-32) mmol/L BUN 26 H (7-17) mg/dL Creatinine 1.76 H (0.52-1.04) mg/dL Estimated GFR 29.0 L (>60) mL/min BUN/Creatinine Ratio 14.8 (6-22) Glucose 333 H (80-110) mg/dL Hemoglobin A1c (4.0-6.0) % Calcium 9.0 (8.4-10.2) mg/dL Magnesium (1.6-2.3) mg/dL Total Bilirubin 0.6 (0.2-1.3) mg/dL AST 23 (14-36) IU/L ALT 15 (<35) IU/L Alkaline Phosphatase 92 (38-126) U/L Troponin I < 0.012 (0.01-0.034) ng/mL Total Protein 7.4 (6.3-8.2) g/dL Albumin 3.5 (3.5-5.0) g/dL Globulin 3.9 (1.7-4.1) g/dL Albumin/Globulin Ratio 0.9 L (1.0-2.8) Urine Color Urine Appearance Urine pH (4.5-8.0) Ur Specific [place] (1.000-1.035) Urine Protein (Negative) Urine Glucose (UA) (Negative) g/dL Urine Ketones (NEGATIVE) Urine Occult Blood (Negative) Urine Nitrate (Negative) Urine Bilirubin (NEGATIVE) Urine Urobilinogen (0.2) E.U./dL Ur Leukocyte Esterase (NEGATIVE) Urine RBC (0-5/HPF) Urine WBC (0-5/HPF) Ur Squamous Epith Cells (0-5/HPF) Urine Bacteria (None) Ur Culture Indicated? SARS-CoV-2 (PCR) Negative (Negative) 06/25/21 06/25/21 06/25/21 Range/Units 22:37 22:37 23:15 WBC (4.5-11.0) X10^3/uL RBC (4.0-5.2) X10^6/uL Hgb (12.0-16.0) g/dL Hct (36-46) % MCV (80-100) fL MCH (26-34) PG MCHC (30-36) % RDW (11.6-14.8) % Plt Count (150-400) X10^3/uL Neut % (Auto) (50-75) % Lymph % (Auto) (25-40) % [place] % (Auto) (3-14) % Eos % (Auto) (2-4) % Baso % (Auto) (0-2) % Neut # (Auto) (6609-3290) /uL Lymph # (Auto) (0936-3561) /uL [place] # (Auto) (0-900) /uL Eos # (Auto) (0-450) /uL Baso # (Auto) (0-100) /uL Sodium (137-145) mmol/L Potassium (3.4-5.1) mmol/L Chloride (98-107) mmol/L Carbon Dioxide (22-32) mmol/L BUN (7-17) mg/dL Creatinine (0.52-1.04) mg/dL Estimated GFR (>60) mL/min BUN/Creatinine Ratio (6-22) Glucose (80-110) mg/dL Hemoglobin A1c 11.5 H (4.0-6.0) % Calcium (8.4-10.2) mg/dL Magnesium 1.7 (1.6-2.3) mg/dL Total Bilirubin (0.2-1.3) mg/dL AST (14-36) IU/L ALT (<35) IU/L Alkaline Phosphatase (38-126) U/L Troponin I (0.01-0.034) ng/mL Total Protein (6.3-8.2) g/dL Albumin (3.5-5.0) g/dL Globulin (1.7-4.1) g/dL Albumin/Globulin Ratio (1.0-2.8) Urine Color Yellow Urine Appearance Sl cloudy Urine pH 5.0 (4.5-8.0) Ur Specific [place] 1.015 (1.000-1.035) Urine Protein 3+ H (Negative) Urine Glucose (UA) 2+ H (Negative) g/dL Urine Ketones Negative (NEGATIVE) Urine Occult Blood 1+ H (Negative) Urine Nitrate Negative (Negative) Urine Bilirubin Negative (NEGATIVE) Urine Urobilinogen 0.2 (0.2) E.U./dL Ur Leukocyte Esterase Negative (NEGATIVE) Urine RBC 0-1/hpf (0-5/HPF) Urine WBC 10-30/hpf H (0-5/HPF) Ur Squamous Epith Cells 0-1 /hpf (0-5/HPF) Urine Bacteria Many (>30) H (None) Ur Culture Indicated? Specimen cultured SARS-CoV-2 (PCR) (Negative) Imaging Data Chest x-ray: Radiologist's Impression: FINDINGS:? ? Surgical changes and devices:? None.? ? Lungs and pleura:? Lungs are clear.? No pleural effusions or pneumothorax.? ? Mediastinum:? Mediastinal contours appear normal.? Heart size is normal.? The aorta has atherosclerotic calcifications. ? Bones and chest wall:? No suspicious bony lesions.? Overlying soft tissues appear unremarkable.? ? IMPRESSION:? No acute cardiopulmonary abnormality. ? ? Dictated by: Jesús Adorno M.D. on 06/25/2021 at 22:28? ?? XR hip: Radiologist's Impression: FINDINGS:? ? Bones:? There is a right intertrochanteric hip fracture.? The right hip joint has degenerative changes.? The left hip is status post hip replacement. ? Soft tissues:? Vasculature has severe atherosclerotic calcifications, otherwise soft tissues are unremarkable. ? IMPRESSION:? Right intertrochanteric hip fracture. ? ? Dictated by: Jesús Adorno M.D. on 06/25/2021 at 22:12? ?? CT scan - head: Radiologist's Impression: FINDINGS:? Image quality:? Excellent.? ? CSF spaces:? Basal cisterns are patent.? No extra-axial fluid collections.? The ventricles are symmetric in size and shape.? ? Brain:? No intracranial bleeds or masses.? There is cerebral volume loss for age, with resultant ventricular and sulcal prominence.? There are periventricular and deep white matter chronic small vessel ischemic changes.? There is intracranial internal carotid artery atherosclerosis.? ? Skull and face:? Calvarium and visualized facial bones appear intact, without suspicious lesions.? ? Sinuses:? Visualized sinuses and mastoids are clear.? ? IMPRESSION:? 1. No acute intracranial abnormality. 2. Microvascular ischemic disease.? ? ? Dictated by: Jesús Adorno M.D. on 06/25/2021 at 22:20? ?? CT - cervical spine: Radiologist's Impression: FINDINGS:? Image quality:? Excellent.? ? Bones:? No fractures or dislocations.? Visualized superior ribs are intact.? Multilevel degenerative changes and disc disease.? Vasculature has atherosclerotic calcifications. ? Soft tissues:? Prevertebral soft tissues are normal in thickness.? No paravertebral hematomas.? No apical pneumothoraces.? ? ? IMPRESSION:? No acute traumatic abnormality of the cervical spine. ? Dictated by: Jesús Adorno M.D. on 06/25/2021 at 22:18? ?? CT chest abdomen pelvis: Radiologist's Impression: FINDINGS:? Image quality:? Excellent.? ? CHEST:? Lungs and pleura:? No acute pulmonary opacities.? No pleural effusions or pneumothorax.? Central and peripheral airways are patent are normal in caliber.? ? Mediastinum:? Heart size is normal.? No pericardial effusion.? No mediastinal adenopathy by CT size criteria.? Thoracic aorta and central pulmonary arteries are normal in size.? The aorta has atherosclerosis with no aneurysmal dilatation.? Esophagus is normal in caliber.? No hiatal hernia.? ? Chest wall:? No axillary or supraclavicular adenopathy by size criteria.? Thyroid gland is normal.? ? ABDOMEN:? Solid organs:? On the liver is cirrhotic.? There is pneumobilia, unchanged compared to the prior CT.? Pancreas is normal in contours.? Spleen is normal in size.? No adrenal nodules.? Both kidneys are normal in size, without hydronephrosis or nephrolithiasis.? ? Peritoneum and bowel:? Small and large bowel loops are normal in caliber and wall thickness.? No free fluid or air.? ? Nodes and vessels:? No retroperitoneal or mesenteric adenopathy by size criteria.? The aorta has atherosclerosis with no aneurysmal dilatation. ? Miscellaneous:? No ventral hernias.? ? ? PELVIS:? Genitourinary:? Bladder wall thickness is normal.? ? Miscellaneous:? No inguinal hernias or adenopathy.? ? Bones:? The right hip has an intertrochanteric hip fracture.? No suspicious bony lesions. ?No vertebral body compression fractures.? ? IMPRESSION:? 1. No acute traumatic abnormality of the chest, abdomen, or pelvis. 2. Cirrhosis with ascites and pneumobilia, unchanged compared to the prior CT. 3. Bibasilar atelectasis. 4. Right intertrochanteric hip fracture.? ? ? Dictated by: Jesús Adorno M.D. on 06/26/2021 at 0:22? ?? ECG Data Interpretation: Sinus rhythm at a rate of 77 Normal intervals, normal axis No acute ischemic changes MDM Narrative Medical decision making narrative: 66-year-old woman with a history of dementia, hypertension, cirrhosis with ascites, who had what apparently was a ground level fall lost her balance fell backwards has a small laceration to the back of her head and suffered a right intratrochanteric hip fracture. Remainder of scans of study showed no intracranial bleeding, no acute cervical injury. She does have chronic cirrhosis and chronic pneumobilia, none of which are changed from previous studies. 2am care is reviewed with Dr. Mares who will anticipate surgical intervention later today and asks that the patient be kept NPO from this point forward Will admit to the hospitalist service given her multiple comorbidities and likely need for assisted rehabilitation after her hip surgery. Laceration to the right posterior occiput 2 cm in in length is closed with skin glue and then overlapping hair technique used to secure the area so rowena and sutures are not present and will not need to be removed. The area closed quite nicely. Discharge Plan Departure Patient Disposition: Admitted As Inpatient Clinical Impression: Fall, Dementia, Chronic renal insufficiency, stage III (moderate), Pneumobilia, Abdominal ascites, Laceration Closed hip fracture Qualifiers: Encounter type: initial encounter Laterality: right Qualified Code(s): S72.001A - Fracture of unspecified part of neck of right femur, initial encounter for closed fracture Diabetes Qualifiers: Diabetes mellitus termite exterminator insulin use: with termite exterminator use Anemia Qualifiers: Anemia type: due to chronic kidney disease Admit Date/Time: 06/26/21 02:24 Admit Provider: Marnie Douglas
[2021-06-25] MEDS: SODIUM CHLORIDE 0.9% 1,000 ML 150 ML IV (22:36)
[2021-06-25 22:48] LABS: COVID19 -Nasal RAPID Negative (Negative)
[2021-06-25 22:48] LABS: Add Manual Diff / Slide Review NO; Basophils Absolute Auto 0 /uL (0-100); Basophils Percent Auto 0.4 % (0-2); Eosinophils Absolute Auto 0 /uL (0-450); Eosinophils Percent Auto 0.4 % (2-4); Hematocrit 28.8 % (36-46); Hemoglobin 9.3 g/dL (12.0-16.0); Lymphocytes Absolute Auto 1100 /uL (1100-4500); Lymphocytes Percent Auto 12.6 % (25-40); Mean Corpuscular HGB Conc 32.3 % (30-36); Mean Corpuscular Hemoglobin 24.8 PG (26-34); Mean Corpuscular Volume 76.7 fL (80-100); Monocytes Absolute Auto 800 /uL (0-900); Neutrophils Absolute Auto 7000 /uL (1500-7000); Neutrophils Percent Auto 77.6 % (50-75); Platelet Count 267 X10^3/uL (150-400); Red Blood Cell Count 3.76 X10^6/uL (4.0-5.2); Red Cell Distribution Width 17.1 % (11.6-14.8)
[2021-06-25] MEDS: HYDROMORPHONE 1 MG INJ 0.5 MG IV ×2 (22:49→23:22)
[2021-06-25 22:51] VITALS: PULSE 78; O2SAT 99
[2021-06-25 22:52] VITALS: BP 149/72; PULSE 80; O2SAT 99
[2021-06-25 23:00] VITALS: BP 157/77; PULSE 78; O2SAT 99
[2021-06-25 23:00] LABS: Alanine Aminotransferase 15 IU/L (<35); Albumin 3.5 g/dL (3.5-5.0); Albumin Globulin Ratio 0.9 (1.0-2.8); Alkaline Phosphatase 92 U/L (38-126); Aspartate Aminotransferase 23 IU/L (14-36); BUN Creatinine Ratio 14.8 (6-22); Bilirubin Total 0.6 mg/dL (0.2-1.3); Blood Urea Nitrogen 26 mg/dL (7-17); Carbon Dioxide 19 mmol/L (22-32); Chloride 106 mmol/L (98-107); Globulin 3.9 g/dL (1.7-4.1); Glucose 333 mg/dL (80-110); HEMOLYSIS 44 (0-50); Potassium 3.7 mmol/L (3.4-5.1); Sodium 132 mmol/L (137-145); Total Protein 7.4 g/dL (6.3-8.2)
[2021-06-25 23:11] LABS: Troponin I < 0.012 ng/mL (0.01-0.034)
[2021-06-25 23:30] VITALS: BP 148/69; PULSE 72; O2SAT 96
--- NOTE | 2021-06-25 23:44 | DI.CT.S_ITS ---
PROCEDURE: CT CHEST ABD PEL WO CON INDICATIONS: trauma, right post rib pain, lumbar pain, + right hip fracture TECHNIQUE: After the administration of oral contrast, 5 mm thick sections acquired from the lung apices to the symphysis pubis. 5 mm thick coronal and sagittal reformats acquired, with additional 7 mm coronal MIP reformats through the lungs. For radiation dose reduction, the following was used: automated exposure control, adjustment of mA and/or kV according to patient size. COMPARISON: [facility], CT, CT ANGIO CHEST PE PROTOCOL, 03/31/2021, 18:21. FINDINGS: Image quality: Excellent. CHEST: Lungs and pleura: No acute pulmonary opacities. No pleural effusions or pneumothorax. Central and peripheral airways are patent are normal in caliber. Mediastinum: Heart size is normal. No pericardial effusion. No mediastinal adenopathy by CT size criteria. Thoracic aorta and central pulmonary arteries are normal in size. The aorta has atherosclerosis with no aneurysmal dilatation. Esophagus is normal in caliber. No hiatal hernia. Chest wall: No axillary or supraclavicular adenopathy by size criteria. Thyroid gland is normal. ABDOMEN: Solid organs: On the liver is cirrhotic. There is pneumobilia, unchanged compared to the prior CT. Pancreas is normal in contours. Spleen is normal in size. No adrenal nodules. Both kidneys are normal in size, without hydronephrosis or nephrolithiasis. Peritoneum and bowel: Small and large bowel loops are normal in caliber and wall thickness. No free fluid or air. Nodes and vessels: No retroperitoneal or mesenteric adenopathy by size criteria. The aorta has atherosclerosis with no aneurysmal dilatation. Miscellaneous: No ventral hernias. PELVIS: Genitourinary: Bladder wall thickness is normal. Miscellaneous: No inguinal hernias or adenopathy. Bones: The right hip has an intertrochanteric hip fracture. No suspicious bony lesions. No vertebral body compression fractures. IMPRESSION: 1. No acute traumatic abnormality of the chest, abdomen, or pelvis. 2. Cirrhosis with ascites and pneumobilia, unchanged compared to the prior CT. 3. Bibasilar atelectasis. 4. Right intertrochanteric hip fracture. Dictated by: Jesús Adorno M.D. on 06/26/2021 at 0:22 Approved by: Jesús Adonro M.D. on 06/26/2021 at 0:51
[2021-06-26] VITALS (35 sets, daily range): BP systolic 130–183; BP diastolic 58–106; PULSE 70–100; RESP 14–22; TEMP 36.4–38.2; O2SAT 90–98; BMI 24.7
--- NOTE | 2021-06-26 | DI.RAD.S_ITS ---
PROCEDURE: XR HIP W PEL IF DONE RT 2V INDICATIONS: RT HIP FIXATION TECHNIQUE: 2 views of the hip were acquired. COMPARISON: [facility], CR, XR HIP W PEL IF DONE RT 2V, 06/25/2021, 21:41. FINDINGS: Bones: Postsurgical changes compatible with ORIF of intertrochanteric right femur fracture noted. Intramedullary dena and dynamic compression screws placed for internal fixation. There is anatomic alignment of the fracture fragments. Soft tissues: No suspicious soft tissue calcifications or masses. IMPRESSION: Anatomic alignment following ORIF of intertrochanteric right femur fracture. Dictated by: Rosalinda Suazo MD, PhD on 06/26/2021 at 16:44 Approved by: Rosalinda Suazo MD, PhD on 06/26/2021 at 16:45
[2021-06-26 00:10] LABS: Appearance Urine UA SL CLOUDY; Bilirubin Urine UA NEGATIVE (NEGATIVE); Color Urine UA YELLOW; Glucose Urine UA 2+ g/dL (Negative); Ketones Urine UA NEGATIVE (NEGATIVE); Leukocyte Esterase Urine UA NEGATIVE (NEGATIVE); Nitrite Urine UA NEGATIVE (Negative); Occult Blood Urine UA 1+ (Negative); Protein Urine UA 3+ (Negative); Specific Gravity Urine UA 1.015 (1.000-1.035); Urobilinogen Urine UA 0.2 E.U./dL (0.2)
[2021-06-26 00:13] LABS: RBC Urine 0-1/HPF (0-5/HPF)
[2021-06-26 00:14] LABS: Bacteria Urine Many (>30); Squamous Epithelial Cell Urine 0-1 /HPF (0-5/HPF); WBC Urine 10-30/HPF (0-5/HPF)
[2021-06-26 00:15] LABS: Culture Indicated Urine Specimen Cultured
[2021-06-26] MEDS: ONDANSETRON 4 MG/2 ML INJ (00:19)
[2021-06-26] MEDS: HYDROMORPHONE 1 MG INJ 0.5 MG IV ×3 (00:53→09:35)
[2021-06-26] MEDS: LIDO 1%/SOD BICARB 8.4% (10ML) 10 ML SYRINGE INJ (01:06)
--- NOTE | 2021-06-26 02:39 | P.HP_ITS ---
History of Present Illness History of Present Illness Date Patient Seen: 06/26/21 Time Patient Seen: 02:39 Chief complaint: GLF Narrative: Kristine Moon is a 66-year-old woman with a history of CKD [id number], PUD, diastolic CHF, essential HTN, insulin dependent uncontrolled DMtype2 with gastroporesis, chronic anemia, prior CVA, vascular dementia, who suffered a fall yesterday evening where she fell backward and hit the back of her head without loss of consciousness.? Presenting to the ED complaining of right hip, flank, and posterior rib pain.? Patient denies chest pain, shortness of breath, passing out, palpitations or any other concerning symptoms prior to her fall.? She states that she has not recently had fevers, cough, increase in lower extremity edema, palpitations, vomiting, diarrhea, abdominal pain. Upon admit exam patient is resting comfortably in bed patient is mildly hypertensive temp 98?, BP 182/86, HR 92, R 18, O2 saturation 99% on room air. Patient has a hemoglobin 9.3, hematocrit 28.8 reflective of chronic anemia, mild hyponatremia sodium 132, bicarb 19, BUN 26, creatinine 1.76, GFR 29 these are reflective of patient's baseline CKD stage IIIB. Patient's hyperglycemic glucose 333. Patient's urinalysis is positive culture pending. Patient's chest x-ray is negative for acute cardiopulmonary processes, patient's CT of chest abdomen pelvis is negative for any traumatic abnormalities, patient's head CT is negative for any intracranial acute processes, patient's C-spine is negative for any traumatic abnormalities. Patient is admitted for right introchanter fracture, Dr. Vick orthopedics has been consulted and is planning to take the patient to the OR later this morning. Patient History Medical History Acute on chronic diastolic heart failure Anemia Dow's esophagus with esophagitis Bilateral lower extremity edema CKD (chronic kidney disease) stage 3, GFR 30-59 ml/min CVA (cerebral vascular accident) (~2018) Dementia Diabetes Fractures Gallbladder disease GERD (gastroesophageal reflux disease) GERD (gastroesophageal reflux disease) History of urinary incontinence (~2018) Hyperlipidemia Hypertension Overactive bladder Partial blindness Post-menopausal Screening for malignant neoplasm of colon Subdural hematoma Swelling of left lower extremity Upper GI bleed Vision disorder Surgical History Anesthesia History of cholecystectomy History of hip replacement (~2019) History of surgery on arm Tubal ligation status Family & Social History Family History Mother Heart disease Father No problems noted. Sister Cancer Social History: household members significant other Tobacco & Substance use: Tobacco type cigarettes,cannabis/marijuana Smoking Status Former smoker alcohol intake former alcohol intake frequency holiday/special occasion Substance Use Type marijuana Meds Home Medications and Allergies Home Medications Medication Instructions Recorded Confirmed Type cholecalciferol (vitamin D3) 25 1,000 unit PO BID 10/08/17 06/25/21 History mcg (1,000 unit) capsule (Vitamin D3) cyanocobalamin (vitamin B-12) 1,000 mcg PO DAILY 08/02/19 06/25/21 History 1,000 mcg tablet (Vitamin B-12) Glucose Test strips #100 ea 03/28/21 06/25/21 Rx amlodipine 10 mg tablet 10 mg PO DAILY #90 tab 03/29/21 06/25/21 Rx atorvastatin 20 mg tablet (Lipitor) 40 mg PO BEDTIME #90 tab 03/29/21 06/25/21 Rx insulin aspart U-100 100 unit/mL 1 sliding scale dose SUBCUT 03/29/21 06/25/21 Rx (3 mL) subcutaneous pen (Novolog QIDACHS #15 ml Flexpen U-100 Insulin aspart) insulin glargine 100 unit/mL (3 12 unit (0.12 mL) SUBCUT QPM #15 ml 03/29/21 06/25/21 Rx mL) subcutaneous pen (Lantus Solostar U-100 Insulin) sucralfate 1 gram tablet (Carafate) 1 g PO QID #360 tab 03/30/21 06/25/21 Rx diaper,brief,adult,disposable #50 ea 05/03/21 06/25/21 Rx (Briefs) furosemide 20 mg tablet (Lasix) 20 mg PO .COMPLEX #30 tab 06/16/21 06/25/21 Rx lisinopril 20 mg tablet 20 mg PO DAILY 06/25/21 06/25/21 History omeprazole 20 mg capsule,delayed 20 mg PO DAILY 06/25/21 06/25/21 History release oxybutynin chloride 5 mg 5 mg PO DAILY 06/25/21 06/25/21 History tablet,extended release 24 hr pantoprazole 20 mg tablet,delayed 20 mg PO DAILY 06/25/21 06/25/21 History release (Protonix) Allergies Allergy/AdvReac Type Severity Reaction Status Date / Time Iodine and Iodide Containing Allergy Unknown Verified 06/08/21 18:35 Produc [IODINE AND IODIDE CONTAINING PRODUC] latex [LATEX] Allergy Unknown Verified 06/08/21 18:35 Review of Systems Review of Systems Narrative: All 12 point systems reviewed with the patient and are negative except otherwise documented. Exam Vital Signs (past 8 hours): - 06/25/21 21:36 06/25/21 21:38 06/25/21 22:51 Temperature 98.0 F Pulse Rate 84 92 H 78 Respiratory Rate 18 Blood Pressure 182/86 H Pulse Oximetry 98 99 99 06/25/21 22:52 06/25/21 23:00 06/25/21 23:30 Temperature Pulse Rate 80 78 72 Respiratory Rate Blood Pressure 149/72 H 157/77 H 148/69 H Pulse Oximetry 99 99 96 06/26/21 00:00 06/26/21 00:30 06/26/21 01:00 Temperature Pulse Rate 78 79 85 Respiratory Rate Blood Pressure 164/77 H Pulse Oximetry 98 97 95 06/26/21 01:05 06/26/21 01:30 Temperature Pulse Rate 88 83 Respiratory Rate Blood Pressure 165/82 H 153/80 H Pulse Oximetry 94 93 Oxygen Delivery Method Room Air Narrative Exam Narrative: General:? Patient is a thin frail female, mild cognitive impairment, in no distress at this time. HEENT:? Normocephalic, atraumatic, extraocular muscles intact, 2 cm linear partial-thickness laceration at the right occiput- rowena in place, oral pharynx is clear and mucous membranes are moist.? Neck is supple and symmetric, trachea is midline, no adenopathy, no thyroid enlargement, nontender, no masses palpated.? Negative for JVD Chest:? Normal AP diameter and contour without kyphoscoliosis, no nasal flaring, retractions, or tachypneic labored breathing. Lungs:? Auscultation of all lung cuevas are clear without adventitious sounds, wheezes, rhonchi, or rales. Cardio:? regular rate and rhythm without murmur, rubs, or gallops, no carotid bruit, no cardiac pulsations present. Abdomen:? Soft nontender, negative for organomegaly, or masses.? Bowel sounds are present in all 4 quadrants without guarding or rebound, no CVA tenderness. Musculoskeletal:? Extremities- right lower is shortened and externally rotated, intact radial and pedal pulses are normal. Skin:? Warm dry and intact without rashes, ulcerations or petechiae.? Neuro:? Alert and orientated x 2 to person and hospital-patient's baseline, global weakness which is patient's baseline, sensation to touch intact, no gross deficits noted of cranial nerves. Psych:? Patient has a well-kept appearance, appropriate affect,? calm resting comfortably. Objective Labs Result Diagrams: 06/25/21 22:37 06/25/21 22:37 Labs: Laboratory Results - last 24 hr 06/25/21 06/25/21 06/25/21 22:28 22:37 22:37 WBC 9.0 RBC 3.76 L Hgb 9.3 L Hct 28.8 L MCV 76.7 L MCH 24.8 L MCHC 32.3 RDW 17.1 H Plt Count 267 Neut % (Auto) 77.6 H Lymph % (Auto) 12.6 L [place] % (Auto) 9.0 Eos % (Auto) 0.4 L Baso % (Auto) 0.4 Neut # (Auto) 7000 Lymph # (Auto) 1100 [place] # (Auto) 800 Eos # (Auto) 0 Baso # (Auto) 0 Sodium 132 L Potassium 3.7 Chloride 106 Carbon Dioxide 19 L BUN 26 H Creatinine 1.76 H Estimated GFR 29.0 L BUN/Creatinine Ratio 14.8 Glucose 333 H Calcium 9.0 Total Bilirubin 0.6 AST 23 ALT 15 Alkaline Phosphatase 92 Troponin I < 0.012 Total Protein 7.4 Albumin 3.5 Globulin 3.9 Albumin/Globulin Ratio 0.9 L Urine Color Urine Appearance Urine pH Ur Specific [place] Urine Protein Urine Glucose (UA) Urine Ketones Urine Occult Blood Urine Nitrate Urine Bilirubin Urine Urobilinogen Ur Leukocyte Esterase Urine RBC Urine WBC Ur Squamous Epith Cells Urine Bacteria Ur Culture Indicated? SARS-CoV-2 (PCR) Negative 06/25/21 23:15 WBC RBC Hgb Hct MCV MCH MCHC RDW Plt Count Neut % (Auto) Lymph % (Auto) [place] % (Auto) Eos % (Auto) Baso % (Auto) Neut # (Auto) Lymph # (Auto) [place] # (Auto) Eos # (Auto) Baso # (Auto) Sodium Potassium Chloride Carbon Dioxide BUN Creatinine Estimated GFR BUN/Creatinine Ratio Glucose Calcium Total Bilirubin AST ALT Alkaline Phosphatase Troponin I Total Protein Albumin Globulin Albumin/Globulin Ratio Urine Color Yellow Urine Appearance Sl cloudy Urine pH 5.0 Ur Specific [place] 1.015 Urine Protein 3+ H Urine Glucose (UA) 2+ H Urine Ketones Negative Urine Occult Blood 1+ H Urine Nitrate Negative Urine Bilirubin Negative Urine Urobilinogen 0.2 Ur Leukocyte Esterase Negative Urine RBC 0-1/hpf Urine WBC 10-30/hpf H Ur Squamous Epith Cells 0-1 /hpf Urine Bacteria Many (>30) H Ur Culture Indicated? Specimen cultured SARS-CoV-2 (PCR) Assessment & Plan Assessment & Plan narrative: Kristine Moon is a 66-year-old woman with a history of CKD [id number], PUD, diastolic CHF, essential HTN, insulin dependent uncontrolled DMtype2 with gastroporesis, chronic anemia, prior CVA, vascular dementia, who suffered a fall yesterday evening where she fell backward and hit the back of her head without loss of consciousness.? Patient is admitted for right introchanter fracture, Dr. Vick orthopedics has been consulted and is planning to take the patient to the OR later this morning. 1. Ground level fall resulting in pathologic right intratrochanteric fracture, acute, present on admission -consult Dr. Vick -NPO -pain management -Anderson placed -patient to go to the OR later this morning -all PO meds held until after surgery -Hydralizine IV to control B/P while NPO 2.Insulin-dependent Type 2 diabetes, hyperglycemia, acute on chronic, poorly controlled, diabetic gastroparesis, chronic, present on admission -Glucose 333 on admit -A1C 11.5% increased from last hospitalization -BS Q6Hrs while NPO, resume ACHS checks once eating after surgery -admitted under DM protocol- continue lantus 10 units at night, continue sliding scale insulin for coverage. -No dietary consult ordered- due to patients dementia. -Consider endo referral for spouse to attend. 3. Hyperlipidemia related to diabetes, chronic, present on admission ?-atorvastatin continue after surgery 4. Essential hypertension, uncontrolled, acute on chronic, present on admission ?-continue amlodipine, lisinopril after surgery -while NPO hydralazine tele mg q.6 hours for SBP> 180 and/or DBP>100 5. PUD, chronic, present on admission ?- continue home pantoprazole and sucralfate after surgery. 6. Vascular dementia, acute on chronic, present on admission -patient at baseline at this time 7. CKD stage IIIB, chronic, related to essential hypertension and diabetes, present on admission -creatinine 1.76, GFR 29: baseline creatinine 1.6-1.79, GFR 28.4-30.2 8. Diastolic congestive heart failure,chronic, present on admission -Echo 12/2020: Mild concentric left ventricular hypertrophy with ejection fraction 60-65%. -hold Lasix 9. Overactive bladder, chronic, present on admission -Continue oxybutynin Code Status: Full Code? Surrogate decision maker:?spouse.? DPOA is scanned into chart. Covid PCR: Negative DVT/VTE:? No medication anticoagulation due to pending surgery, SCDs LEFT only Disposition: Estimated length of stay greater than 2 midnights I have utilized all available immediate resources to obtain, update, or review the patient's current medications. I confirmed that the patient's advanced care plan is present, Code status is documented and/or surrogate decision maker is listed in the patient's medical record. Time Spent With Patient Critical Care time: I spent a total of [] minutes of critical care time on this patient's care today; this time is exclusive of procedural time.
--- NOTE | 2021-06-26 02:52 | P.CONS_ITS ---
History of Present Illness Consult details Date Patient Seen: 06/26/21 Time Patient Seen: 12:10 Chief complaint: GLF Reason for consult: right IT hip fracture Requesting provider: Mago Henson Narrative: 66yo F with multiple medical comorbidities including insulin dependent DM, chronic anemia, diastolic HF, CKD stage 3, ascities, cva (2018), Dow's esophagus, Left hip hemiarthroplasty for fracture 2019, orif L proximal humerus: now with GLF and right intertrochanteric hip fracture. also sustained head lac. Her is with her at bedside. Patient makes her own medical decisions but when she is incapacitated her has power of mergers and acquisitions attorney. He notes that she does have Dow's esophagus and was due to get a scope a few weeks ago to check up on it but they missed this appointment it has been rescheduled for September. She typically uses a walker at home but has to be reminded to use it. She has diabetic neuropathy up to about the level of her knees. Meds Home Medications and Allergies Home Medications Medication Instructions Recorded Confirmed Type cholecalciferol (vitamin D3) 25 1,000 unit PO BID 10/08/17 06/25/21 History mcg (1,000 unit) capsule (Vitamin D3) cyanocobalamin (vitamin B-12) 1,000 mcg PO DAILY 08/02/19 06/25/21 History 1,000 mcg tablet (Vitamin B-12) Glucose Test strips #100 ea 03/28/21 06/25/21 Rx amlodipine 10 mg tablet 10 mg PO DAILY #90 tab 03/29/21 06/25/21 Rx atorvastatin 20 mg tablet (Lipitor) 40 mg PO BEDTIME #90 tab 03/29/21 06/25/21 Rx insulin aspart U-100 100 unit/mL 1 sliding scale dose SUBCUT 03/29/21 06/25/21 Rx (3 mL) subcutaneous pen (Novolog QIDACHS #15 ml Flexpen U-100 Insulin aspart) insulin glargine 100 unit/mL (3 12 unit (0.12 mL) SUBCUT QPM #15 ml 03/29/21 06/25/21 Rx mL) subcutaneous pen (Lantus Solostar U-100 Insulin) sucralfate 1 gram tablet (Carafate) 1 g PO QID #360 tab 03/30/21 06/25/21 Rx diaper,brief,adult,disposable #50 ea 05/03/21 06/25/21 Rx (Briefs) furosemide 20 mg tablet (Lasix) 20 mg PO .COMPLEX #30 tab 06/16/21 06/25/21 Rx lisinopril 20 mg tablet 20 mg PO DAILY 06/25/21 06/25/21 History omeprazole 20 mg capsule,delayed 20 mg PO DAILY 06/25/21 06/25/21 History release oxybutynin chloride 5 mg 5 mg PO DAILY 06/25/21 06/25/21 History tablet,extended release 24 hr pantoprazole 20 mg tablet,delayed 20 mg PO DAILY 06/25/21 06/25/21 History release (Protonix) Allergies Allergy/AdvReac Type Severity Reaction Status Date / Time Iodine and Iodide Containing Allergy Unknown Verified 06/08/21 18:35 Produc [IODINE AND IODIDE CONTAINING PRODUC] latex [LATEX] Allergy Unknown Verified 06/08/21 18:35 Review of Systems Review of Systems Narrative: Denies fevers chills nausea or vomiting. Denies headache. Endorses right hip pain. No other complaints at the moment. Does have a history of chronic UTIs, Dow's esophagus and diabetes. Her manages her medications. ROS: Yes All systems reviewed with the patient and are negative except as otherwise documented Exam Vital Signs (past 8 hours): - 06/25/21 21:36 06/25/21 21:38 06/25/21 22:51 Temperature 98.0 F Pulse Rate 84 92 H 78 Respiratory Rate 18 Blood Pressure 182/86 H Pulse Oximetry 98 99 99 06/25/21 22:52 06/25/21 23:00 06/25/21 23:30 Temperature Pulse Rate 80 78 72 Respiratory Rate Blood Pressure 149/72 H 157/77 H 148/69 H Pulse Oximetry 99 99 96 06/26/21 00:00 06/26/21 00:30 06/26/21 01:00 Temperature Pulse Rate 78 79 85 Respiratory Rate Blood Pressure 164/77 H Pulse Oximetry 98 97 95 06/26/21 01:05 06/26/21 01:30 Temperature Pulse Rate 88 83 Respiratory Rate Blood Pressure 165/82 H 153/80 H Pulse Oximetry 94 93 Oxygen Delivery Method Room Air Narrative Exam Narrative: General examination: Resting in bed. Pretty tired today just received some medication. HEENT exam normocephalic atraumatic Respiratory exam nonlabored. Lungs are clear bilaterally auscultation Genitourinary exam fully in place. Musculoskeletal exam. Moves bilateral upper extremities. Limited shoulder range of motion on the right with previous surgery. Demonstrates wrist flexion and extension. Left lower extremity normal range of motion. 5/5 dorsiflexion plantar flexion. Calf is soft. No pain or tenderness to palpation Right lower extremity externally rotated. Calf is soft thigh is soft. Tenderness at the hip. Notes significant swelling or edema. Demonstrates dors iflexion plantar flexion. Bilateral peripheral neuropathy to the knee level. Palpable dorsalis pedis pulse Const General: cooperative Objective Imaging AP pelvis and right lateral hip x-ray: My impression: AP pelvis and right lateral hip demonstrates minimally displaced intertrochanteric hip fracture on the right side there are vascular calcifications noted. Left side demonstrates cemented hemiarthroplasty Radiologist's impression: IMPRESSION: Right intertrochanteric hip fracture. Dictated by: Jesús Adorno M.D. on 06/25/2021 at 22:12 Labs Result Diagrams: 06/26/21 05:27 06/26/21 05:27 Labs: Laboratory Results - last 24 hr 06/25/21 06/25/21 06/25/21 22:28 22:37 22:37 WBC 9.0 RBC 3.76 L Hgb 9.3 L Hct 28.8 L MCV 76.7 L MCH 24.8 L MCHC 32.3 RDW 17.1 H Plt Count 267 Neut % (Auto) 77.6 H Lymph % (Auto) 12.6 L [place] % (Auto) 9.0 Eos % (Auto) 0.4 L Baso % (Auto) 0.4 Neut # (Auto) 7000 Lymph # (Auto) 1100 [place] # (Auto) 800 Eos # (Auto) 0 Baso # (Auto) 0 Sodium 132 L Potassium 3.7 Chloride 106 Carbon Dioxide 19 L BUN 26 H Creatinine 1.76 H Estimated GFR 29.0 L BUN/Creatinine Ratio 14.8 Glucose 333 H Calcium 9.0 Total Bilirubin 0.6 AST 23 ALT 15 Alkaline Phosphatase 92 Troponin I < 0.012 Total Protein 7.4 Albumin 3.5 Globulin 3.9 Albumin/Globulin Ratio 0.9 L Urine Color Urine Appearance Urine pH Ur Specific [place] Urine Protein Urine Glucose (UA) Urine Ketones Urine Occult Blood Urine Nitrate Urine Bilirubin Urine Urobilinogen Ur Leukocyte Esterase Urine RBC Urine WBC Ur Squamous Epith Cells Urine Bacteria Ur Culture Indicated? SARS-CoV-2 (PCR) Negative 06/25/21 23:15 WBC RBC Hgb Hct MCV MCH MCHC RDW Plt Count Neut % (Auto) Lymph % (Auto) [place] % (Auto) Eos % (Auto) Baso % (Auto) Neut # (Auto) Lymph # (Auto) [place] # (Auto) Eos # (Auto) Baso # (Auto) Sodium Potassium Chloride Carbon Dioxide BUN Creatinine Estimated GFR BUN/Creatinine Ratio Glucose Calcium Total Bilirubin AST ALT Alkaline Phosphatase Troponin I Total Protein Albumin Globulin Albumin/Globulin Ratio Urine Color Yellow Urine Appearance Sl cloudy Urine pH 5.0 Ur Specific [place] 1.015 Urine Protein 3+ H Urine Glucose (UA) 2+ H Urine Ketones Negative Urine Occult Blood 1+ H Urine Nitrate Negative Urine Bilirubin Negative Urine Urobilinogen 0.2 Ur Leukocyte Esterase Negative Urine RBC 0-1/hpf Urine WBC 10-30/hpf H Ur Squamous Epith Cells 0-1 /hpf Urine Bacteria Many (>30) H Ur Culture Indicated? Specimen cultured SARS-CoV-2 (PCR) [facility] Medical History Acute on chronic diastolic heart failure Anemia Dow's esophagus with esophagitis Bilateral lower extremity edema CKD (chronic kidney disease) stage 3, GFR 30-59 ml/min CVA (cerebral vascular accident) (~2017) Dementia Diabetes Fractures Gallbladder disease GERD (gastroesophageal reflux disease) GERD (gastroesophageal reflux disease) History of urinary incontinence (~2017) Hyperlipidemia Hypertension Overactive bladder Partial blindness Post-menopausal Screening for malignant neoplasm of colon Subdural hematoma Swelling of left lower extremity Upper GI bleed Vision disorder Surgical History Anesthesia History of cholecystectomy History of hip replacement (~2019) History of surgery on arm Tubal ligation status Family History Mother Heart disease Father No problems noted. Sister Cancer Social History marital status: household members: significant other caregiver/support person: Yes Tobacco & Substance Use Smoking Status: Former smoker alcohol intake: former Assessment & Plan Assessment and plan (1) Closed hip fracture: Problem details: intertrochanteric hip fracture Qualifiers: Encounter type: initial encounter Laterality: right Qualified Code(s): S72.001A - Fracture of unspecified part of neck of right femur, initial encounter for closed fracture Status: Acute Plan: right intertrochanteric fracture in ambulatory but medically complex patient. The patient is indicated for fixation of her extracapusular hip fracture. to allow ambulation/early mobilization. Surgery when medically stable and OR available. Plan for later today, when OR available. NPO except meds. The risks and benefits of the procedure have been discussed with the patient even opportunity to ask questions. The risks of surgery include but are not limited to infection, malunion, nonunion, persistence of pain, damage to nerves and blood vessels, posttraumatic arthritis, DVT, PE, cardiopulmonary complications and . The patient expressed a thorough understanding of the risks and benefits of surgery and has elected to proceed. Consent was signed . (2) CKD (chronic kidney disease) stage 3, GFR 30-59 ml/min: Problem details: Stage 3b Status: Acute Plan: management per medical team - Cr 1.7 --appears consistent with other labs over the last few months (3) Anemia: Problem details: anemia of chronic disease now with hip fracture- expect some acute blood loss anemia on top of the chronic anemia during this hospitalization. symptomatic treatment--hemoglobin 7.8 this morning and discussed with internal medicine -recommended 1 unit of blood preop and discussed possibility for need for additional blood products postoperatively. Qualifiers: Anemia type: due to chronic kidney disease Status: Acute (4) Diabetes: Qualifiers: Diabetes mellitus longterm insulin use: with longterm use Status: Acute Plan medical management, tight glucose control perioperatively COVID-19 COVID-19 status: Negative Time Spent With Patient Critical Care time: I spent a total of [] minutes of critical care time on this patient's care today; this time is exclusive of procedural time.
[2021-06-26 02:57] LABS: Magnesium 1.7 mg/dL (1.6-2.3)
[2021-06-26 03:00] LABS: Hemoglobin A1C% w Est Avg Glu 11.5 % (4.0-6.0)
[2021-06-26] MEDS: SODIUM CHLORIDE 0.9% 1,000 ML 80 ML IV ×2 (03:44→23:19)
[2021-06-26 05:45] LABS: Add Manual Diff / Slide Review NO; Basophils Absolute Auto 0 /uL (0-100); Basophils Percent Auto 0.2 % (0-2); Eosinophils Absolute Auto 0 /uL (0-450); Hemoglobin 7.8 g/dL (12.0-16.0); Lymphocytes Absolute Auto 500 /uL (1100-4500); Lymphocytes Percent Auto 4.3 % (25-40); Mean Corpuscular HGB Conc 31.7 % (30-36); Mean Corpuscular Hemoglobin 24.6 PG (26-34); Mean Corpuscular Volume 77.5 fL (80-100); Monocytes Absolute Auto 900 /uL (0-900); Monocytes Percent Auto 7.5 % (3-14); Neutrophils Absolute Auto 10400 /uL (1500-7000); Platelet Count 235 X10^3/uL (150-400); Red Blood Cell Count 3.18 X10^6/uL (4.0-5.2); Red Cell Distribution Width 17.1 % (11.6-14.8); White Blood Cell Count 11.9 X10^3/uL (4.5-11.0)
[2021-06-26 05:50] LABS: Hematocrit 24.7 % (36-46)
[2021-06-26 05:58] LABS: Alanine Aminotransferase 13 IU/L (<35); Albumin 3.1 g/dL (3.5-5.0); Albumin Globulin Ratio 0.9 (1.0-2.8); Alkaline Phosphatase 93 U/L (38-126); Aspartate Aminotransferase 17 IU/L (14-36); BUN Creatinine Ratio 13.6 (6-22); Bilirubin Total 0.6 mg/dL (0.2-1.3); Blood Urea Nitrogen 24 mg/dL (7-17); Calcium 8.5 mg/dL (8.4-10.2); Carbon Dioxide 18 mmol/L (22-32); Chloride 110 mmol/L (98-107); Globulin 3.4 g/dL (1.7-4.1); Glucose 350 mg/dL (80-110); HEMOLYSIS < 15 (0-50); Potassium 3.7 mmol/L (3.4-5.1); Sodium 134 mmol/L (137-145); Total Protein 6.5 g/dL (6.3-8.2)
--- NOTE | 2021-06-26 06:37 | PC.ADMIT ---
[email or web address] Admission Note: The patient,Kristine Moon,66 y/o, was given written information regarding hospital policies, unit procedures and contact persons. Patient's smoking status: Former smoker. Vital Signs - 8 hr 06/25/21 22:51 06/25/21 22:52 06/25/21 23:00 Temperature Pulse Rate 78 80 78 Respiratory Rate Blood Pressure 149/72 H 157/77 H Pulse Oximetry 99 99 99 06/25/21 23:30 06/26/21 00:00 06/26/21 00:30 Temperature Pulse Rate 72 78 79 Respiratory Rate Blood Pressure 148/69 H 164/77 H Pulse Oximetry 96 98 97 06/26/21 01:00 06/26/21 01:05 06/26/21 01:30 Temperature Pulse Rate 85 88 83 Respiratory Rate Blood Pressure 165/82 H 153/80 H Pulse Oximetry 95 94 93 06/26/21 02:00 06/26/21 02:30 06/26/21 03:00 Temperature Pulse Rate 82 90 88 Respiratory Rate Blood Pressure 168/79 H 162/77 H 166/106 H Pulse Oximetry 94 91 94 06/26/21 03:30 06/26/21 03:45 06/26/21 04:01 Temperature 98.3 F Pulse Rate 100 H 100 H Respiratory Rate 18 18 Blood Pressure 172/89 H Pulse Oximetry 95 95 95 Patient admitted to room 224 at 0330, alert and oriented to person and place, follows directions, tolerated sliding over to bed from stretcher. NPO, IV Dilaudid given for pain-effective, right leg is shortened and externally rotated, warm with strong PP. Anderson catheter in place.
--- NOTE | 2021-06-26 09:26 | PC.NURSE ---
Addendum entered by Alice Lama R.N. 06/26/21 19:26: Patient resting with eyes closed, breathing unlabored. Continuous pulse ox remains on, 97% on room air. Patient has not had emesis since return to floor. HRR, abd mildly distended, BT hypoactive. SCD's on. Patient resting comfortably, call light in reach. Addendum entered by Alice Lama R.N. 06/26/21 18:24: Patient returned to floor, VSS, started on 3L O@ to maintain saturation >90%, titrated to RA, 95-96%. RLE sensation intact per patient, DSG x 2 CDI, pulses equal bilaterally, cap refill <2, patient c/o pain, medication administered. SCD's on bilaterally. Patient CBG obtained, covered with sliding scale (See MAR), patient tolerating water, able to tolerate Popsicle. Bilat hand PIV intact, NS@80cc/hr infusing in L Hand. Anderson intact, draining. Bed alarm on. Call light in reach. Addendum entered by Alice Lama R.N. 06/26/21 13:25: Patient currently off unit for surgery. RLE warm, cap refill<2, pulses intact bilaterally. Patient had multiple bouts of emesis prior to leaving for surgery, CBG remained >300 after sliding scale insulin administration, Dr. Mayo betancourt, IV Insulin ordered, administered. Patient remains A/Ox3, soft spoken, appreciative of care. Anderson intact, securement device replaced, draining clear yellow urine. PIV x 2, bilateral hands, intact. SCD's on. Patient prepared for surgery and off unit at 1300. Original Note: Patient A/O x 3, nausea, emesis ~150cc, PRN Zofran administered. Blood is currently infusing in R Hand PIV, patient tolerating, temp dropped from 99.9 to 98.7. BP remains elevated, within defined parameters. Patient repositioned for comfort, pain medication administered. SCD's on.
[2021-06-26] MEDS: ONDANSETRON 4 MG/2 ML INJ IV ×2 (09:28→23:21)
[2021-06-26] MEDS: INSULIN LISPRO 100 UNIT/ML 3ML VIAL SUBCUT ×3 (10:27→23:08)
[2021-06-26] MEDS: HYDROMORPHONE 1 MG INJ IV ×3 (10:58→23:02)
--- NOTE | 2021-06-26 12:05 | CM.DPNOTE ---
Faxed snf referral packet per Asia to [facility]. Also emailed to [facility] santana. Received conf. on all of them. Moraima Soriano CM Assist.
[2021-06-26] MEDS: INSULIN REGULAR 100 UNIT/ML 3 ML VIAL IV (12:28)
--- NOTE | 2021-06-26 13:54 | CM.DANOTE ---
Addendum entered by Asia Castaneda R.N. 06/26/21 16:26: DEX spoke with Angelica at [facility] she is reviewing and would like PT and OT notes following patients surgery before agreeing to admission. GARRISON would like to see PT and OT notes tomorrow as well but both stated they don't think she will be a problem for admission. DEX did speak with the SO pablo again and restated we are still looking for an accepting facility but that to be prepared to take the patient home with HH if we cannot locate a SNF. patients SO stated understanding and is okay with HH being a back up plan if an accepting SNF cannot be located or [facility] doesn't authorize a SNF placement. Cm also asked if they would like CM to look in [facility] or [facility] for SNF. SO Pablo said no just [facility]. CM department will follow up with reviewing SNFs tomorrow and get PT and OT notes to them when they are available. Asia Castaneda pai gow manager Original Note: DCP Assessment: Patient is a 66 yr old female who is here for Right hip fracture repair preformed by Dr. Mares. CM met with the patient at the bedside and explained role. Patient was A&O x3 during CM visit however didn't seem to recall information previously presented earlier in the day. Patient states she is independent with dressing and ambulating as long as she has her FWW. CM Spoke with her significant other and DULCE Pablo who stated that the patient does have a history of dementia and has been getting more and more confused as of lately. Patients SO stated that he would like her to go to a SNF and would like [facility]. Dex Explained that currently [facility] is not accepting patients due to a covid issue but that there are a few other facilities in [place] that might work for admissions. He agreed and CM will send referrals to [facility], [facility] and [facility] Lieberman for review. ADRIENNE Valera sent clinical information to SNFs. CM also let the patient and her Significant other know that if an accepting SNF cannot be found that home with home health might be needed since SNF availability has been challenging lately. patients SO stated understanding. I: [facility] and medicaid. P: DC to SNF VS HH depending on SNF availability... will need PASRR once accepting facility is found. [facility] Lieberman, [facility], [facility] are reviewing [place] Castaneda RNpai gow manager Discharge Planning/Care Management CM Discharge Assessment Start: 06/26/21 13:43 Freq: Status: Active Protocol: Document 06/26/21 13:44 HS (Rec: 06/26/21 13:48 HS [id number]) Discharge Planning Assessment Assigned Cost Accounting Analyst Asia Castaneda RNpai gow manager DPOA/Assigned Designee Name Pablo Dowd- DPOA- Significant other Contact Information [phone] Advance Directives? Yes: DPOA, CPR RESUSCITATION Advance Directives on File Yes History Provided By Patient,Significant Other, Medical Record Prior Living Arrangements House Household Members significant other Type of transporation used prior to Relies on Others admit Is patient alert and oriented? Yes Needs Assistance With Managing Medications,Home Chores / Shopping Caregiver for Another No DME Already Rented / Owned FWW / Walker Patient/Family Preference Assisted Facility Barriers to Discharge No Comment Patient is weak, if she needs long-term, may have used up her Medicare services at [facility]. Will need to follow up with [facility] Discharge Plan Assisted Facility Transportation Arrangement SNF w/c van Referrals Initiated Assisted Additional Comment pending PT eval and recommendations, hx of Kay MERRITT If patient plan is SNF: Has PASSR been Yes completed? Inpatient Status as of 06/26/21 Medicare Choice List Provided Yes SNF/HH Preference No SNF Preference just where we can get the patient a bed Contact Name/Phone CM called Angelica at [facility] who is reviewing, Sarah at [facility] and [facility] who are all reviewing Has Agency SNF been contacted Yes Whiteboard Updated in Patient Room with Yes name and ext. # of Cost Accounting Analyst Review Status In Process Next Review Type Continued Stay Review
[2021-06-26] MEDS: LACTATED RINGERS 1,000 ML 42 ML IV (14:02)
--- NOTE | 2021-06-26 14:06 | SUR.HOLD ---
Anna made aware of latex allergy. Dr Ramos aware of blood sugars. Pablo called, consent for anesthesia obtained via phone.
[2021-06-26] MEDS: CEFAZOLIN 2 GM/20 ML SYRINGE IV ×2 (14:50→23:03)
[2021-06-26] MEDS: TRANEXAMIC ACID 1,000 MG VIAL 1000 MG INJ ×2 (14:55→15:42)
--- NOTE | 2021-06-26 15:04 | SUR.OPER ---
Supine on padded [place] table with bilateral legs secured in padded positioning boots and suspended in positioning spars, operative leg in traction per surgeon. Head on one pillow. Arm on non-operative side secured on padded armboard <90 degrees abduction. Arm on operative side padded and resting across chest then secured with tape over sheet. Padded perineal post in place per surgeon.
[2021-06-26] MEDS: BUPIVACAINE 0.25% (PF) 30 ML, EPINEPHrine 0.15 MG INJ (15:10)
--- NOTE | 2021-06-26 16:24 | P.OP_ITS ---
Operative Date/Time/Diagnoses Date of procedure: 06/26/21 Time of procedure: 16:24 Pre-op diagnosis: Right intertrochanteric hip fracture S72.00A Chronic kidney disease stage 3 Diabetes uncontrolled Acute on chronic anemia Post-op diagnosis: same Procedure & Clinicians Procedure: Fixation right intertrochanteric hip fracture with cephalomedullary nail. CPT code 72531 Same procedure as scheduled: Yes Indications: Patient is a 66-year-old female had a ground level fall and had a minimally displaced right intertrochanteric hip fracture. She has multiple medical comorbidities including abdominal ascites, chronic kidney disease stage 3, Dow's esophagus, acute on chronic anemia. She sustained a femoral neck fracture 2 years ago and has a cemented hemiarthroplasty on the contralateral side. She has uncontrolled diabetes and ambulates at home with a walker. She sustained a ground level fall and had immediate pain inability to ambulate. She was was diagnosed with a right intertrochanteric hip fracture. She was indicated for surgical fixation of her hip fracture. We discussed this is to allow early mobilization weightbear as tolerated and reduce the risks associated with prolonged immobility. The risks and benefits of the procedure have been discussed with the patient even opportunity to ask questions. The risks of surgery include but are not limited to infection, malunion, nonunion, failure of hardware, need for additional procedures, persistence of pain, damage to nerves and blood vessels, posttraumatic arthritis, DVT, PE, cardiopulmonary complications and . The patient expressed a thorough understanding of the risks and benefits of surgery and has elected to proceed. Consent was signed. Additionally this patient was found to have acute on chronic anemia with a hemoglobin of 7.8 this was discussed with the primary team. Patient was indicated for preoperative transfusion of 1 unit with the knowledge that she may require additional transfusions depending on her blood levels postoperatively. Surgeon: Radha Mares Click Yes if Unassisted: Yes Anesthesia Type: General and Local (0.25% bupivacaine with epinephrine 30 cc) Operative Notes Findings: Minimally displaced intertrochanteric hip fracture, right Closure Type: primary Specimen(s): none sent Prosthetic devices, grafts, tissues, transplants, or devices: S&N Intertan nail, 11.5x18cm. 95/90 compression and lag screw. 5.0x35mm interlocking screw Estimated Blood Loss (mL): 100 Blood products transfused: none Tourniquet time (min): 0 Procedure in detail: Procedure cephalomedullary nail intertrochanteric hip fracture the CPT code 55962 Side: Right Implant Castaneda and Nephew 11.5 x 18 cm cephalomedullary nail intertan Procedure: The patient was seen and the site of surgery was marked in the preoperative area. This was the right hip. Patient was brought to the operating room and placed on the operative table and general anesthesia was administered. The patient was positioned on the fracture table in standard fashion with a well-padded boots and a padded peroneal post. An SCD was on the contralateral leg. A formal time-out was called to confirm the patient's side and site of surgery administration of preoperative antibiotics. All were in agreement. 1 g tranexamic acid was administered IV at the beginning of the case and another 1 at the end of the case to limit blood loss. The operative leg was then gently manipulated under fluoroscopic guidance to obtain a closed reduction in near anatomic alignment. At this point the operative extremity was prepped and draped in the standard sterile manner. The starting point was marked out using fluoroscopic guidance and marked on the skin. A guidewire was placed percutaneously and the starting point was obtained. Incision was made over the guidewire. An opening drill was inserted to the level of the lesser trochanter. The opening Reamer and guidewire were then removed. An 18 cm cephalomedullary nail was selected. The 11.5 x 18 cm nail was then slid into the canal. The nail was advanced to the proper depth and rotation. The guide for the cephalomedullary screw was then inserted into the external handle. An incision was made and the guide was placed down to the bone. A guidewire was placed to the proper depth into the femoral head and this was confirmed on AP and lateral imaging. The tip apex distance was evaluated and appropriate. This was measured. Next the outer cortex was drilled for the interlocking screw and the anti rotation bar was placed. The cephalomedullary screw length was then measured off the drill again. A 95 mm lag screw was selected and the corresponding interlocking compression screw. A guidewire was then over drilled and the lag screw placed. The anti rotation bar was removed and then the locking compression screws were placed and confirmed on biplanar fluoroscopy. The integrated compression screw was tightened. Attention was turned to the dis rahul interlock. 5.0 x 35 mm screw was placed with the guide in the standard technique. AP and lateral images were captured in the or confirming alignment hardware placement. Wounds were irrigated and closed in layers with 0 Vicryl in the deep fascia. 2- 0 in the subcutaneous tissue and rowena in the skin. 0.25% Marcaine with epinephrine was injected into the incision sites for local anesthetic. Sterile dressings were applied. There no immediate complications. Surgical counts were correct. The patient tolerated the procedure well was taken to recovery. Complications: none Post-operative Condition: stable Disposition: PACU Plan for aftercare: Postoperative plan. Weightbear as tolerated to the surgical extremity. Work with physical therapy and occupational therapy. Discharge by primary team. Likely usp. Monitor hemoglobin and hematocrit postoperatively may require transfusion if needed. Encourage incentive spirometry. SCDs and Lovenox for DVT prophylaxis. Recommend Lovenox, renal dosed, 4 weeks for hip fracture, if mobilizing well may consider aspirin 81 b.i.d. Follow-up scheduled [facility] in 2 weeks for wound check, staple removal, and repeat x- rays. Keep dressing clean dry and intact. May change of saturated.
--- NOTE | 2021-06-26 16:46 | SUR.PHASEI ---
1630-Patient more awake and aware. Remains pale pink in coloration. vss. no pain. answers ok to most questions. aware at [facility]. Report to floor RN. MD writing transfer orders, will transfer when done. Dressings x 2 rt femur/leg cdi. patient removed oxygen-sats monitored. 1640-off monitor. ra sats 93-94%. transfer orders completed. to room by Staff , pt in bed,side rails up. iv converted to saline lock. NO belongings.
--- NOTE | 2021-06-26 16:50 | SUR.PHASEI ---
1600-Recieved in pacu via bed. patient non verbalizing. vss. hip rt dresssings cdi x 2 sites. ice to site. no blood sugar check required -per Dr Ramos. Just done in OR 1/2 hr ago. Floor will recheck/treat per protoccal per .
[2021-06-26] MEDS: SUCRALFATE 1 GM TABLET PO ×2 (16:59→23:03)
[2021-06-26] MEDS: ACETAMINOPHEN 325 MG TABLET 975 MG PO (23:02)
[2021-06-26] MEDS: DOCUSATE 100 MG CAPSULE PO (23:03)
[2021-06-26] MEDS: CHOLECALCIFEROL (VITAMIN D3) 1,000 UNIT TABLET 1000 UNIT PO (23:03)
[2021-06-26] MEDS: SODIUM CHLORIDE 0.9% FLUSH 10 ML IV (23:04)
[2021-06-26] MEDS: INSULIN GLARGINE 100 UNIT/ML 3ML PEN 12 UNIT SUBCUT (23:07)
[2021-06-27] VITALS (15 sets, daily range): BP systolic 132–164; BP diastolic 71–86; PULSE 87–97; RESP 14–18; TEMP 37.1–37.7; O2SAT 92–97
[2021-06-27] MEDS: HYDROMORPHONE 1 MG INJ IV ×2 (04:26→08:23)
[2021-06-27] MEDS: CEFAZOLIN 2 GM/20 ML SYRINGE IV (05:40)
[2021-06-27 06:19] LABS: Add Manual Diff / Slide Review NO; Basophils Absolute Auto 0 /uL (0-100); Basophils Percent Auto 0.4 % (0-2); Eosinophils Absolute Auto 0 /uL (0-450); Eosinophils Percent Auto 0.1 % (2-4); Hematocrit 24.5 % (36-46); Hemoglobin 7.9 g/dL (12.0-16.0); Lymphocytes Absolute Auto 1000 /uL (1100-4500); Lymphocytes Percent Auto 9.6 % (25-40); Mean Corpuscular HGB Conc 32.4 % (30-36); Mean Corpuscular Hemoglobin 25.6 PG (26-34); Monocytes Absolute Auto 1300 /uL (0-900); Monocytes Percent Auto 12.5 % (3-14); Neutrophils Absolute Auto 8200 /uL (1500-7000); Neutrophils Percent Auto 77.4 % (50-75); Platelet Count 249 X10^3/uL (150-400); Red Cell Distribution Width 17.9 % (11.6-14.8); White Blood Cell Count 10.6 X10^3/uL (4.5-11.0)
[2021-06-27 06:38] LABS: BUN Creatinine Ratio 12.5 (6-22); Blood Urea Nitrogen 24 mg/dL (7-17); Calcium 8.2 mg/dL (8.4-10.2); Carbon Dioxide 18 mmol/L (22-32); Chloride 112 mmol/L (98-107); Estimated Glomerular Filt Rate 26.2 mL/min (>60); Glucose 155 mg/dL (80-110); HEMOLYSIS < 15 (0-50); Potassium 3.9 mmol/L (3.4-5.1); Sodium 137 mmol/L (137-145)
[2021-06-27] MEDS: INSULIN LISPRO 100 UNIT/ML 3ML VIAL SUBCUT ×2 (08:20→17:13)
[2021-06-27] MEDS: ACETAMINOPHEN 325 MG TABLET 975 MG PO ×3 (08:21→20:44)
[2021-06-27] MEDS: SODIUM CHLORIDE 0.9% FLUSH 10 ML IV ×2 (08:22→20:57)
[2021-06-27] MEDS: OXYBUTYNIN 5 MG ER TAB PO (08:22)
[2021-06-27] MEDS: ENOXAPARIN 30 MG/0.3 ML SYRINGE SUBCUT (08:22)
[2021-06-27] MEDS: CYANOCOBALAMIN (VITAMIN B-12) 500 MCG TABLET 1000 MCG PO (08:22)
[2021-06-27] MEDS: PANTOPRAZOLE DR 20 MG TABLET PO (08:22)
[2021-06-27] MEDS: CHOLECALCIFEROL (VITAMIN D3) 1,000 UNIT TABLET 1000 UNIT PO ×2 (08:22→20:46)
[2021-06-27] MEDS: DOCUSATE 100 MG CAPSULE PO ×2 (08:22→20:44)
[2021-06-27] MEDS: SUCRALFATE 1 GM TABLET PO ×4 (08:23→20:44)
[2021-06-27] MEDS: ONDANSETRON 4 MG/2 ML INJ IV (08:25)
--- NOTE | 2021-06-27 10:50 | PT.IIE ---
Current Diagnoses Anemia, unspecified (06/26/21) Type 2 diabetes mellitus without complications (06/26/21) Pathological fracture, right femur, initial encounter for fracture (06/26/21) Chronic kidney disease, stage 3 unspecified (06/26/21) Fracture of unspecified part of neck of right femur, initial encounter for closed fracture (06/26/21) Surgery Performed Operation Date: 06/26/21 14:15 Actual Procedures p Fixation of intertrochanteric fx(Right) - Radha Mares MD Surgical History (Last Reviewed 06/27/21 @ 11:58 by Ankit Andrew PA-C) Anesthesia Medical History (Last Reviewed 06/27/21 @ 11:58 by Ankit Andrew PA-C) Acute on chronic diastolic heart failure Anemia Dow's esophagus with esophagitis Bilateral lower extremity edema CKD (chronic kidney disease) stage 3, GFR 30-59 ml/min CVA (cerebral vascular accident) (~2018) Dementia Diabetes Fractures Gallbladder disease GERD (gastroesophageal reflux disease) GERD (gastroesophageal reflux disease) History of urinary incontinence (~2017) Hyperlipidemia Hypertension Overactive bladder Partial blindness Post-menopausal Screening for malignant neoplasm of colon Subdural hematoma Swelling of left lower extremity Upper GI bleed Vision disorder Physical Therapy Inpatient Evaluation/Re-Eval M1 PT/OT-IP Prior Functional Status Start: 06/27/21 13:05 Freq: NEEDED Status: Active Protocol: Document 06/27/21 10:50 AB (Rec: 06/27/21 13:18 AB [id number]) Medical Review Prior Functional Status Medical History Reviewed Yes Communication able to make needs known but requires frequent cues Mobility and Gait pt stated that she is modified independent with all mobilities and ambulation using FWW but with h/o falls Social History Household Members significant other Living Arrangements House Number of Floors (Floors) One Floor Number of Stairs To Enter/Railing? 1 step to enter Home Environment High Toilet,Tub/Shower Home Equipment Front Wheel Walker,Shower Seat with Backrest,Hand Held Shower,Grab Bars Near Toilet, Grab Bars In Shower Additional Social History Comment pt lives with spouse Pablo but he usually out working; pt has a caregiver Yeimi who comes in 4x/week for ~ 4 hours to assist pt M2 PT-IP Current Condition Start: 06/27/21 13:05 Freq: NEEDED Status: Active Protocol: Document 06/27/21 10:50 AB (Rec: 06/27/21 13:18 AB [id number]) Physical Therapy Current Condition Current Condition Evaluation Date 06/27/21 Treatment Diagnosis R intertrochanteric hip fx s/p nailing; difficulty in walking Onset Date 06/26/21 M3 PT-IP Subjective Start: 06/27/21 13:05 Freq: NEEDED Status: Active Protocol: Document 06/27/21 10:50 AB (Rec: 06/27/21 13:18 AB [id number]) Subjective Physical Therapy Visit Type Type Initial Evaluation Visit Start Time 10:50 Visit Stop Time 11:25 Total Visit Minutes 35 Number of ROCKET ENGINE COMPONENT MECHANIC Visits 0 Physical Therapy Visit Comments Patient Comments agreed to do PT Therapy Pain Assessment Pain When Pain Assessed At Rest Pain Present Pain Present Pain Reported Location Right Hip Scale Used unable to quantify pain but stated a lot of pain Pain Behaviors Guarding,Holding Area,Wincing Pain Management Techniques Apply Cold,Modification of Treatment,Re-positioning, Timing of Activity with Medications M4 PT-IP Mobility and Gait Start: 06/27/21 13:05 Freq: NEEDED Status: Active Protocol: Document 06/27/21 10:50 AB (Rec: 06/27/21 13:18 AB [id number]) PT-Bed Mobility Assessment Supine to Sit Supine to Sit Maximum Assistance,Head of Bed Elevated Scooting Scooting to Edge of Bed Dependent PT-Transfer Assessment Sit to and From Stand Sit to and from Stand Maximum Assistance,2 Person Assistance,Use of Upper Extremities Equipment Transfer Assistive Device Gait Belt,Front Wheeled Walker Orthotic/Prosthetic Devices or Brace: No Transfers Transfer Destination Chair Transfer Technique Stand Step Pivot Transfer Ability Level of Assist Maximum Assistance,2 Person Assistance,Use of Upper Extremities Comments Mobility Comments pt agreeable to do PT but requires repeated cues and instructions. completed supine to sit max A and max cues with HOB elevated. total A for scooting to EOB. completed sit to stand max A x 2 and max cues. pt instructed to transfer to chair but unable to move LLE. pt with increase guarding and fear of moving. pt sat back on EOB. completed sit to stand again max A x 2 and max cues. completed step transfer to chair max A x 2 and max cues. require manual assist to lift LLE up to move forward and step for transfer. assisted pt to position on chair. call light and table placed within reach. Gait Assessment Comments Gait Comments unable at this time. PT-Balance Assessment Sitting Balance and Reactions Static Sitting Balance Ability Good Dynamic Sitting Balance Ability Fair Standing Balance and Reactions Static Standing Balance Ability Poor Dynamic Standing Balance Ability Poor Device Used FWW M5 PT-IP Objective Assessments Start: 06/27/21 13:05 Freq: NEEDED Status: Active Protocol: Document 06/27/21 10:50 AB (Rec: 06/27/21 13:18 AB [id number]) Orientation Orientation/Cognition Level of Alertness Confusional State Orientation Name Safety Awareness Decreased Safety Awareness Memory Description Short Term Impaired Gross Range of Motion Lower Extremity ROM Assessment Within Functional Limits Impairments increase guarding with movement on BLE Strength Lower Extremity Strength Assessment Bilaterally Impaired Comments Strength Comments RLE: 2+/5 LLE: 3+/5 Muscle Tone Muscle Tone WNL Yes M6 PT-IP Treatment Start: 06/27/21 13:05 Freq: NEEDED Status: Active Protocol: Document 06/27/21 10:50 AB (Rec: 06/27/21 13:18 AB [id number]) Physical Therapy Treatment Education Education Provided Weight Bearing Status,Safety M7 PT-IP Assessment and Plan Start: 06/27/21 13:05 Freq: NEEDED Status: Active Protocol: Document 06/27/21 10:50 AB (Rec: 06/27/21 13:18 AB [id number]) PT Summary Assessment and Plan Potential Rehabilitation Potential Fair Status of Condition at Evaluation Evolving Summary Impairments Pain,ROM,Strength,Balance, Coordination,Sensation,Tone, Cognition,Bed Mobility, Transfers,Gait,Activity Tolerance Assessment Summary pt requiring max Ax2 with transfers using fWW and unable to ambulate at this time. recommending mechanical lift transfers with nursing at this time. pt able to follow one step directions and willing to participate. Pt will require SNF rehab to improve strength and mobility independence. Goals Bed Mobility Goal Minimal Assistance Transfer Goal Minimal Assistance,Front Wheeled Walker Gait Goal Minimal Assistance,Front Wheel Walker Gait Distance 50 Other Goals improve bed mobility, transfers to SBA, ambulation CGA using fWW 100 ft Days to Meet Goals 10 Frequency of Treatment Frequency Of Treatment Twice a Day Treatment Plan Physical Therapy Treatment Plan Bed Mobility Training,Transfer Training,Gait Training, Therapeutic Exercise,Balance Retraining,Post Op Education, Discharge Planning,Hot or Cold Pack,Neuromuscular Re-ed, Coordination Retraining,Manual Therapy Weight Bearing Status Weight Bearing Status Weight Bear as Tolerated Allowed Weight Bearing Amount (enter % RLE WBAT or #) (%) Recommendations To Nursing Amount of Assist Needed Mechanical Lift Discharge Recommendations PT Discharge Recommendations SNF Rehab Transportation Needs at Discharge Wheelchair/Cabulance
--- NOTE | 2021-06-27 10:55 | PC.NURSE ---
Patient resting in bed this morning. A/O x 1, to name and birthdate. Patient endorses nausea and R hip pain, ordered Zofran and Dilaudid administered. Patient tolerated. NS@80cc/hr infusing in L hand PIV at this time. R Hand IV secured with coban. Patent. Patient tolerated pills and sips of water. VSS. RLE DSG CDI x 2, pulses equal, cap refill <2, warm. SCD's on bilaterally. Patient's Anderson is patent, draining. IV Lasix administered, will continue to monitor U/O. Patient up with PT and this RN. Tolerated movement to chair. Administered PO Oxy 10 mg after movement, will monitor for N/V. Chair alarm on. Call light in reach.
[2021-06-27] MEDS: FUROSEMIDE 40 MG/4 ML VIAL IV (11:21)
[2021-06-27] MEDS: OXYCODONE IR 10 MG TABLET PO ×2 (11:21→15:21)
--- NOTE | 2021-06-27 11:56 | PM.PNPO.1 ---
Subjective Subjective Date Patient Seen: 06/27/21 Time Patient Seen: 11:56 Interval history: Pain is been mild to severe. No severe pain with movement of the right hip. Denies fever or chills. Patient has been nauseous and is vomited a couple times this morning. Patient notes she was not able knee much of her breakfast. Denies shortness of breath or chest pain. Exam Vital Signs (past 8 hours): - 06/27/21 04:19 06/27/21 04:27 06/27/21 05:00 Temperature 99.1 F Pulse Rate 96 H 96 H Respiratory Rate 16 16 Blood Pressure 139/71 Pulse Oximetry 95 95 92 06/27/21 07:52 06/27/21 08:21 06/27/21 09:00 Temperature 99.9 F H 99.9 F H Pulse Rate 89 Respiratory Rate 16 Blood Pressure 132/83 Pulse Oximetry 95 95 06/27/21 11:00 06/27/21 11:25 Temperature 98.7 F Pulse Rate 87 94 H Respiratory Rate Blood Pressure 146/82 H Pulse Oximetry 97 Oxygen Delivery Method Room Air Oxygen Flow Rate 0 Narrative Exam Narrative: 66-year-old female sitting in bedside chair in no apparent distress. Right hip dressings are Clean, dry, intact.. Motor functions intact bilateral lower extremities. Sensation grossly intact to light touch bilateral lower extremities. Const General: cooperative Orientation: alert Objective Labs Result Diagrams: 06/27/21 06:05 06/27/21 06:05 Labs: Laboratory Results - last 24 hr 06/27/21 06/27/21 06:05 06:05 WBC 10.6 RBC 3.10 L Hgb 7.9 L Hct 24.5 L MCV 79.0 L MCH 25.6 L MCHC 32.4 RDW 17.9 H Plt Count 249 Neut % (Auto) 77.4 H Lymph % (Auto) 9.6 L [place] % (Auto) 12.5 Eos % (Auto) 0.1 L Baso % (Auto) 0.4 Neut # (Auto) 8200 H Lymph # (Auto) 1000 L [place] # (Auto) 1300 H Eos # (Auto) 0 Baso # (Auto) 0 Sodium 137 Potassium 3.9 Chloride 112 H Carbon Dioxide 18 L BUN 24 H Creatinine 1.92 H Estimated GFR 26.2 L BUN/Creatinine Ratio 12.5 Glucose 155 H D Calcium 8.2 L [facility] [place] Medical History Acute on chronic diastolic heart failure Anemia Dow's esophagus with esophagitis Bilateral lower extremity edema CKD (chronic kidney disease) stage 3, GFR 30-59 ml/min CVA (cerebral vascular accident) (~2017) Dementia Diabetes Fractures Gallbladder disease GERD (gastroesophageal reflux disease) GERD (gastroesophageal reflux disease) History of urinary incontinence (~2017) Hyperlipidemia Hypertension Overactive bladder Partial blindness Post-menopausal Screening for malignant neoplasm of colon Subdural hematoma Swelling of left lower extremity Upper GI bleed Vision disorder Surgical History Anesthesia History of cholecystectomy History of hip replacement (~2019) History of surgery on arm Tubal ligation status Family History Mother Heart disease Father No problems noted. Sister Cancer Social History marital status: household members: significant other caregiver/support person: Yes Smoking Status: Former smoker alcohol intake: former Assessment & Plan Post-op Postoperative Procedures: Procedures Operation Date: 06/26/21 14:15 Actual Procedure Side Surgeon p Fixation of intertrochanteric fx Right Radha Mares MD Postoperative day: 1 Postoperative status narrative: Stable Postoperative plan narrative: Weight bear as tolerated right lower extremity PT, OT Continue monitor hemoglobin and hematocrit Encourage incentive spirometry SCDs and Lovenox for DVT prophylaxis. Recommend Lovenox, renal dosed 4 weeks for hip fracture if mobilizing well may consider aspirin 81 mg b.i.d. Discharge when medically stable per Internal Medicine Follow-up with [facility] in 2 weeks for wound check, staple removal, repeat x-rays Quality VTE Deep Vein Thrombosis/Pulmonary Embolism Present on Admission: No
[2021-06-27] MEDS: CIPROFLOXACIN 250 MG TABLET 500 MG PO (13:39)
--- NOTE | 2021-06-27 13:49 | DIET.CONS ---
Dietary Consultation Note Admission Date: 06/26/2021 02:24 Assessment: 66y F admitted for GLF resulting in hip fracture referred to nutrition for low Ty score. Pt with dementia at baseline, experiencing some post-op nausea/emesis. Pt consumed no breakfast this morning. Upon review, pt has A1c 11.5. Historical A1c vary widely back and forth from 7.7 to 11.5 over past 4y. Pts partner, Pablo not at bedside, hospital phone system down, unable to communicate. Per nursing, pt has some bruises on belly which may be related to insulin administration at home. Regardless, pt would benefit from tighter glucose control both for wound healing and general health. Pts A1c highest now per our records. Pt not appropriate for DM education secondary to dementia, more information needed regarding DM barriers at home. Ht: 160.02 cm Wt: 63.5 kg BMI: 24.7 Last BM: 06/25/21 (06/26/21 13:42) MNA: 10 Ty Score: 13 Diet: 06/26/21 Dinner Carbohydrate Consistent Diet Diet Modifications: Carbohydrate level: Medium (3 CHO) Nutrition Percent Meal Consumed 0% 06/27/21 07:00 Labs: RBC 3.10 X10^6/uL (4.0-5.2) L 06/27/21 06:05 Hgb 7.9 g/dL (12.0-16.0) L 06/27/21 06:05 Hct 24.5 % (36-46) L 06/27/21 06:05 Creatinine 1.92 mg/dL (0.52-1.04) H 06/27/21 06:05 Hemoglobin A1c 11.5 % (4.0-6.0) H 06/25/21 22:37 Nutrition Diagnosis: increased nutrient needs for healing r/t post-op hip repair with immobility, A1c 11.5, and baseline dementia. Interventions: 1. Sending Glucerna tid. Monitoring/Evaluations: Further communication with pts support system needed to optimize pts DM status. Electronically Signed by: Katarzyna Slade 06/27/21 13:49 Clinical Dietitian [address] [id number]
--- NOTE | 2021-06-27 14:50 | PT.IPTN ---
Current Diagnoses Anemia, unspecified (06/26/21) Type 2 diabetes mellitus without complications (06/26/21) Pathological fracture, right femur, initial encounter for fracture (06/26/21) Chronic kidney disease, stage 3 unspecified (06/26/21) Fracture of unspecified part of neck of right femur, initial encounter for closed fracture (06/26/21) Surgery Performed Operation Date: 06/26/21 14:15 Actual Procedures p Fixation of intertrochanteric fx(Right) - Radha Mares MD Physical Therapy Treatment Note M2 PT-IP Current Condition Start: 06/27/21 13:05 Freq: NEEDED Status: Active Protocol: Document 06/27/21 10:50 AB (Rec: 06/27/21 13:18 AB [email or web address]) Physical Therapy Current Condition Current Condition Evaluation Date 06/27/21 Treatment Diagnosis R intertrochanteric hip fx s/p nailing; difficulty in walking Onset Date 06/26/21 M3 PT-IP Subjective Start: 06/27/21 13:05 Freq: NEEDED Status: Active Protocol: Document 06/27/21 14:50 AB (Rec: 06/27/21 17:19 AB [email or web address]) Subjective Physical Therapy Visit Type Type Treatment Note Visit Start Time 14:50 Visit Stop Time 15:11 Total Visit Minutes 21 Number of BLENDER/BRAZE APPLICATOR Visits 0 Physical Therapy Visit Comments Patient Comments agreeable to do PT M4 PT-IP Mobility and Gait Start: 06/27/21 13:05 Freq: NEEDED Status: Active Protocol: Document 06/27/21 14:50 AB (Rec: 06/27/21 17:19 AB [email or web address]) PT-Bed Mobility Assessment Sit to Supine Sit to Supine Maximum Assistance,2 Person Assistance Scooting Scooting Up and Down in Bed Dependent PT-Transfer Assessment Sit to and From Stand Sit to and from Stand Maximum Assistance,1 Person Assistance,2 Person Assistance ,Use of Upper Extremities Equipment Transfer Assistive Device Gait Belt,Front Wheeled Walker Orthotic/Prosthetic Devices or Brace: No Transfers Transfer Destination Bed Transfer Technique Stand Step Pivot Transfer Ability Level of Assist Maximum Assistance,2 Person Assistance,Use of Upper Extremities Comments Mobility Comments completed sit to stand from chair x 2 attempts max A x 1-2 and max cues. attempted ambulation but pt unable despite assistance. instructed to transfer to the bed step transfer using FWW max A x 2 and max cues. assisted for steadiness, balance weight shifting and moving LE. completed sit to supine max A x 2 and max cues. positioned pt in bed total A x 2. call light and table placed within reach. Gait Assessment Comments Gait Comments unable at this time M5 PT-IP Objective Assessments Start: 06/27/21 13:05 Freq: NEEDED Status: Active Protocol: Document 06/27/21 10:50 AB (Rec: 06/27/21 13:18 AB [email or web address]) Orientation Orientation/Cognition Level of Alertness Confusional State Orientation Name Safety Awareness Decreased Safety Awareness Memory Description Short Term Impaired Gross Range of Motion Lower Extremity ROM Assessment Within Functional Limits Impairments increase guarding with movement on BLE Strength Lower Extremity Strength Assessment Bilaterally Impaired Comments Strength Comments RLE: 2+/5 LLE: 3+/5 Muscle Tone Muscle Tone WNL Yes M6 PT-IP Treatment Start: 06/27/21 13:05 Freq: NEEDED Status: Active Protocol: Document 06/27/21 14:50 AB (Rec: 06/27/21 17:19 AB [email or web address]) Physical Therapy Treatment Education Education Provided Safety M7 PT-IP Assessment and Plan Start: 06/27/21 13:05 Freq: NEEDED Status: Active Protocol: Document 06/27/21 14:50 AB (Rec: 06/27/21 17:19 AB [email or web address]) PT Summary Assessment and Plan Potential Rehabilitation Potential Fair Summary Impairments Pain,ROM,Strength,Balance, Coordination,Sensation,Tone, Cognition,Bed Mobility, Transfers,Gait,Activity Tolerance Assessment Summary pt continues to require max A x 2 for mobility and unable to ambulate with increase muscle guarding/stiffness during standing and with difficulty taking steps. pt will require SNF rehab to improve strength and mobility. Goals Bed Mobility Goal Minimal Assistance Transfer Goal Minimal Assistance,Front Wheeled Walker Gait Goal Minimal Assistance,Front Wheel Walker Gait Distance 50 Other Goals improve bed mobility, transfers to SBA, ambulation CGA using fWW 100 ft Days to Meet Goals 10 Frequency of Treatment Frequency Of Treatment Twice a Day Treatment Plan Physical Therapy Treatment Plan Bed Mobility Training,Transfer Training,Gait Training, Therapeutic Exercise,Balance Retraining,Post Op Education, Discharge Planning,Hot or Cold Pack,Neuromuscular Re-ed, Coordination Retraining,Manual Therapy Weight Bearing Status Weight Bearing Status Weight Bear as Tolerated Allowed Weight Bearing Amount (enter % RLE WBAT or #) (%) Recommendations To Nursing Amount of Assist Needed Mechanical Lift Discharge Recommendations PT Discharge Recommendations SNF Rehab Transportation Needs at Discharge Wheelchair/Cabulance
--- NOTE | 2021-06-27 16:26 | P.PN_ITS ---
Subjective Subjective Date Patient Seen: 06/27/21 Interval history: 66-year-old woman with a history of CKD [id number], PUD, diastolic CHF, essential HTN, insulin dependent uncontrolled DMtype2 with gastroporesis, chronic anemia, prior CVA, vascular dementia. She is postop day 1 right hip ORIF. Patient much more alert and seems all around better oriented than yesterday. Denies significant pain. Urinalysis from admission did grow Klebsiella organism. She also got 1 unit transfusion preop. Exam Vital Signs (past 8 hours): - 06/27/21 09:00 06/27/21 11:00 06/27/21 11:25 Temperature 98.7 F Pulse Rate 87 94 H Respiratory Rate Blood Pressure 146/82 H Pulse Oximetry 95 97 06/27/21 13:00 06/27/21 15:00 Temperature 99.1 F Pulse Rate 97 H Respiratory Rate 18 Blood Pressure 163/86 H Pulse Oximetry 94 95 Oxygen Delivery Method Room Air Oxygen Flow Rate 0 Narrative Exam Narrative: General: Alert and NAD sitting in chair Lungs: Clear Extremities: Right hip postop dressing intact, no distal edema Neurological: Appears at baseline mentation Objective Labs Result Diagrams: 06/27/21 06:05 06/27/21 06:05 Labs: Laboratory Results - last 24 hr 06/27/21 06/27/21 06:05 06:05 WBC 10.6 RBC 3.10 L Hgb 7.9 L Hct 24.5 L MCV 79.0 L MCH 25.6 L MCHC 32.4 RDW 17.9 H Plt Count 249 Neut % (Auto) 77.4 H Lymph % (Auto) 9.6 L [place] % (Auto) 12.5 Eos % (Auto) 0.1 L Baso % (Auto) 0.4 Neut # (Auto) 8200 H Lymph # (Auto) 1000 L [place] # (Auto) 1300 H Eos # (Auto) 0 Baso # (Auto) 0 Sodium 137 Potassium 3.9 Chloride 112 H Carbon Dioxide 18 L BUN 24 H Creatinine 1.92 H Estimated GFR 26.2 L BUN/Creatinine Ratio 12.5 Glucose 155 H D Calcium 8.2 L PFSH Medical History Acute on chronic diastolic heart failure Anemia Dow's esophagus with esophagitis Bilateral lower extremity edema CKD (chronic kidney disease) stage 3, GFR 30-59 ml/min CVA (cerebral vascular accident) (~2017) Dementia Diabetes Fractures Gallbladder disease GERD (gastroesophageal reflux disease) GERD (gastroesophageal reflux disease) History of urinary incontinence (~2017) Hyperlipidemia Hypertension Overactive bladder Partial blindness Post-menopausal Screening for malignant neoplasm of colon Subdural hematoma Swelling of left lower extremity Upper GI bleed Vision disorder Surgical History Anesthesia History of cholecystectomy History of hip replacement (~2019) History of surgery on arm Tubal ligation status Family History Mother Heart disease Father No problems noted. Sister Cancer Social History marital status: household members: significant other caregiver/support person: Yes Smoking Status: Former smoker alcohol intake: former Assessment & Plan Assessment & Plan narrative: 1. Pathologic right intratrochanteric fracture, ground level fall, acute -status post ORIF 06/26/2019 to -pain well controlled, continue managing with oral meds -Hep-Lock IV -DC Anderson -PT/OT consult 2. Acute blood loss anemia secondary to hip fracture -received 1 unit PRBC preop -Lasix 40 mg IV x1 on 06/27 somewhat prophylactically based on fluid balance 3. Type 2 diabetes insulin requiring, poor labile control -glucose over 300 on admit -A1c 11.5% -improved control postop, CBG less than 200 -continue patient's Lantus 12 units HS, use sliding scale in hospital 4. Hypertension -holding antihypertensives, amlodipine and lisinopril, perioperatively 5. CKD -slight bump in creatinine 06/27 -recheck BMP in a.m. 6. Diastolic heart failure, stable -monitor fluid status -06/28 resume Lasix 20 mg q.a.m. 7. Dementia -appears at baseline, without evidence acute delirium 8. Urinary tract infection present on admission -urine culture growing Klebsiella -Cipro 500 mg q.d. x3 days prescribed, renal dosing Patient is medically stable and appears close to discharge. Home versus SNF. Time Spent With Patient Critical Care time: I spent a total of [] minutes of critical care time on this patient's care today; this time is exclusive of procedural time. Quality VTE Deep Vein Thrombosis/Pulmonary Embolism Present on Admission: No
--- NOTE | 2021-06-27 16:42 | CM.DANOTE ---
DCP/continued: Reviewed chart. It is anticipated that patient will be medically stable within the next 24hrs for d/c to SNF. Patient evaluated today at bedside by Angelica at [facility]. Angelica does not anticipate any issue with acceptance. Angelica reports that once she confirms acceptance at [facility] she will submit for authorization. P: Yesenia Lieberman evaluating for admit. CM team will need to follow up in AM with Angelica re: acceptance. Patient evaluated at bedside today and [facility] believed they can accept pending administration approval. PASRR needed. LY
[2021-06-27] MEDS: ATORVASTATIN 20 MG TABLET 40 MG PO (20:44)
[2021-06-27] MEDS: INSULIN GLARGINE 100 UNIT/ML 3ML PEN 12 UNIT SUBCUT (20:53)
[2021-06-28] VITALS (9 sets, daily range): BP systolic 160–176; BP diastolic 68–81; PULSE 81–92; RESP 14–18; TEMP 36.9–38.1; O2SAT 91–97
--- NOTE | 2021-06-28 03:44 | PC.NURSE ---
Shift Note: Patient was alert and oriented to self, confused most of the time, denies shortness of breath, at room air. Patient complained pain at the post op site at right hip, dressing noted clean, dry and intact. Lungs bilaterally clear to diminished at the base. Hypoactive bowel sounds but has stated passing flatus. Right leg has good palpable pulses and warm to touch. Afebrile, vital signs are within acceptable limits. Will continue to monitor.
[2021-06-28] MEDS: OXYCODONE IR 10 MG TABLET PO ×2 (05:03→23:22)
[2021-06-28 05:21] LABS: Hematocrit 24.3 % (36-46); Hemoglobin 7.9 g/dL (12.0-16.0)
[2021-06-28 05:32] LABS: BUN Creatinine Ratio 11.1 (6-22); Blood Urea Nitrogen 23 mg/dL (7-17); Calcium 8.4 mg/dL (8.4-10.2); Carbon Dioxide 19 mmol/L (22-32); Chloride 111 mmol/L (98-107); Estimated Glomerular Filt Rate 23.9 mL/min (>60); Glucose 111 mg/dL (80-110); HEMOLYSIS < 15 (0-50); Potassium 3.6 mmol/L (3.4-5.1); Sodium 136 mmol/L (137-145)
[2021-06-28] MEDS: PANTOPRAZOLE DR 20 MG TABLET PO (06:04)
[2021-06-28] MEDS: OXYBUTYNIN 5 MG ER TAB PO (08:37)
[2021-06-28] MEDS: DOCUSATE 100 MG CAPSULE PO ×2 (08:37→23:26)
[2021-06-28] MEDS: CIPROFLOXACIN 250 MG TABLET 500 MG PO (08:37)
[2021-06-28] MEDS: FUROSEMIDE 20 MG TABLET PO (08:37)
[2021-06-28] MEDS: CHOLECALCIFEROL (VITAMIN D3) 1,000 UNIT TABLET 1000 UNIT PO ×2 (08:37→11:08)
[2021-06-28] MEDS: SUCRALFATE 1 GM TABLET PO ×4 (08:37→23:26)
[2021-06-28] MEDS: ENOXAPARIN 30 MG/0.3 ML SYRINGE SUBCUT (08:37)
[2021-06-28] MEDS: ACETAMINOPHEN 325 MG TABLET 975 MG PO ×2 (08:37→23:27)
--- NOTE | 2021-06-28 09:07 | PC.NURSE ---
Addendum entered by Radha Aleman R.N. 06/28/21 15:36: Patient back to bed with 2 PA, gaitbelt when getting up to go back to bed. She was able to take a couple of steps and pivot back to bed. She is napping now. Addendum entered by Radha Aleman R.N. 06/28/21 11:36: Patient up to chair, ot states that she should be a val lift when getting up, she is anxious when getting up. Just given 5mg of oxycodone and helpful. in room and they are watching television together. Original Note: Assess- Patient is alert and oriented x1, she knows her birthday and who she is but not where she is or her surroundings. R.hip dressings are cdi with gauze and tegaderm. BS 111, o insulin needed. Patient will work with physical therapy, we are trying to turn patient but she is hesitant. She did not eat much of her breakfast but drank 100cc of orange juice. Watching the [employer] on tv.
--- NOTE | 2021-06-28 09:30 | OT.IP.EVAL ---
Current Diagnoses Anemia, unspecified (06/26/21) Type 2 diabetes mellitus without complications (06/26/21) Pathological fracture, right femur, initial encounter for fracture (06/26/21) Chronic kidney disease, stage 3 unspecified (06/26/21) Fracture of unspecified part of neck of right femur, initial encounter for closed fracture (06/26/21) Surgery Performed Operation Date: 06/26/21 14:15 Actual Procedures p Fixation of intertrochanteric fx(Right) - Radha Mares MD Past Medical History (Last Reviewed 06/27/21 @ 11:58 by Ankit Andrew PA-C) Acute on chronic diastolic heart failure Anemia Dow's esophagus with esophagitis Bilateral lower extremity edema CKD (chronic kidney disease) stage 3, GFR 30-59 ml/min CVA (cerebral vascular accident) (~2017) Dementia Diabetes Fractures Gallbladder disease GERD (gastroesophageal reflux disease) GERD (gastroesophageal reflux disease) History of cholecystectomy History of hip replacement (~2019) History of surgery on arm History of urinary incontinence (~2017) Hyperlipidemia Hypertension Overactive bladder Partial blindness Post-menopausal Screening for malignant neoplasm of colon Subdural hematoma Swelling of left lower extremity Tubal ligation status Upper GI bleed Vision disorder Surgical History (Last Reviewed 06/27/21 @ 11:58 by Ankit Andrew PA-C) Anesthesia History of cholecystectomy History of hip replacement (~2019) History of surgery on arm Tubal ligation status Occupational Therapy Inpatient Evaluation/Re-Eval M1 PT/OT-IP Prior Functional Status Start: 06/27/21 13:05 Freq: NEEDED Status: Active Protocol: Document 06/28/21 09:30 [facility] (Rec: 06/28/21 12:30 [facility] [id number]) Medical Review Prior Functional Status Medical History Reviewed Yes Communication able to make needs known but requires frequent cues Mobility and Gait pt stated that she is modified independent with all mobilities and ambulation using FWW but with h/o falls Activities of Daily Living and IADL's Pt states that her caregivers assist with her dressing, toileting and bathing needs. Social History Household Members significant other Living Arrangements House Number of Floors (Floors) One Floor Number of Stairs To Enter/Railing? 1 step to enter Home Environment High Toilet,Tub/Shower Home Equipment Front Wheel Walker,Shower Seat with Backrest,Hand Held Shower,Grab Bars Near Toilet, Grab Bars In Shower Additional Social History Comment pt lives with spouse Pablo but he usually out working; pt has a caregiver Yeimi who comes in 4x/week for ~ 4 hours to assist pt M2 OT-IP Current Condition Start: 06/28/21 12:15 Freq: Status: Active Protocol: Document 06/28/21 09:30 [facility] (Rec: 06/28/21 12:30 [facility] [id number]) Occupational Therapy Current Condition Current Condition Evaluation Date 06/28/21 Treatment Diagnosis Right intertrochanteric hip fx s/p nailing Diagnosis Onset Date 06/26/21 Weight Bearing Status Weight Bearing Status Weight Bear as Tolerated M3 OT- IP Subjective and Pain Start: 06/28/21 12:15 Freq: Status: Active Protocol: Document 06/28/21 09:30 [facility] (Rec: 06/28/21 12:30 [facility] [id number]) OT- Subjective Occupational Therapy Visit Type Type Initial Evaluation Visit Start Time 09:30 Visit Stop Time 10:13 Total Visit Minutes 43 Occupational Therapy Visit Comments Patient Comments Pt needing initial encouragement and then agreed to get up with OT/SET UP MECHANIC COATING MACHINES. Patient/Caregiver Goals Pt realizes will be best to go to skilled rehab prior to going home. OT Pain Assessment Pain When Pain Assessed During Mobility Pain Present Pain Present Pain Reported Location Right Hip Intensity 10 Scale Used Numeric (0 - 10) M4 OT- IP ADL's Start: 06/28/21 12:15 Freq: Status: Active Protocol: Document 06/28/21 09:30 [facility] (Rec: 06/28/21 12:30 [facility] [id number]) OT [id number] Comments OT Self-Feeding Comments Not at meal time. OT ADL-Grooming Comments OT Grooming Comments Pt able to wash her face after set-up. OT ADL-Oral Care Comments Oral Care Comments NOt performed. OT ADL-Dressing General Eval Lower Body Dressing Ability Total Assistance Areas Needing Assistance Socks OT ADL-Toileting Comments OT Toileting Comments Anderson in place OT ADL-Bathing Comments OT Bathing Comments Sponge bath more appropriat at this time. M5 OT- IP IADL's Start: 06/28/21 12:15 Freq: Status: Active Protocol: Document 06/28/21 09:30 [facility] (Rec: 06/28/21 12:30 [facility] [id number]) OT-Instrumental Activities of Daily Living Home Safety Awareness Home Safety Comments Pt a little confused and inconsistent when stating how much assist she needs at home. Medication Management Medication Management Caregiver Administers Money Management Money Management Caregiver Provides Assistance Meal Preparation Meal Preparation Caregiver Provides Assist Trash Truck Driver Trash Truck Driver Caregiver Provides Assist M6 OT- IP Functional Cognition Start: 06/28/21 12:15 Freq: Status: Active Protocol: Document 06/28/21 09:30 [facility] (Rec: 06/28/21 12:30 [facility] [id number]) Cognitive Factors Limiting Selfcare Function Cognitive Ability Level of Alertness Alert,Confusional State Patient Orientation Name,Place Attention Span Ability Capable of Focused Attention, Capable of Sustained Attention Ability to Follow Commands Able to Follow One Step Commands with Increased Time, Able to Follow One Step Commands with Repetition Cognitive Comments Cognitive Assessment Comments Pt is very cooperative and needing increased time to get mentally ready and follow commands. Pt also needing lots of encouragement. OT- Vision and Hearing OT- Hearing Assessment OT- Hearing Assessment WFL OT- Vision Assessment Visual Acuity WFL M7 OT- IP Mobility and Balance Start: 06/28/21 12:15 Freq: Status: Active Protocol: Document 06/28/21 09:30 [facility] (Rec: 06/28/21 12:30 [facility] [id number]) OT- Bed Mobility Assessment Supine to Sit Supine to Sit Assist Maximum Assistance,2 Person Assistance,Head of Bed Elevated,Bedrails OT-Transfer Assessment Sit to and From Stand Sit to and from Stand Maximum Assistance,2 Person Assistance Transfers Transfer Ability Maximum Assistance,Total Assistance,2 Person Assistance Technique Transfer Destination Bed,Chair Transfer Technique Squat Pivot Devices Transfer Assistive Devices None,Gait Belt,Front Wheeled Walker Comments Mobility Comments Increased time with lots of rest breaks when assist pt to get to the edge of the bed with assist to lift RLE, assist to use green pad to more her hips and get to the edge of the bed. MAX X 2 to stand to FWW for one minutes and then after a rest break 30 seconds. Pt unable to move her LLE and therefore opted to do squat pivot transfer with pt total A x2. Best for nursing to do val lift or call for therapy to assist. OT- Balance Assessment Sitting Balance and Reactions Static Sitting Balance Ability Fair Standing Balance and Reactions Static Standing Balance Ability Poor M8 OT- IP Objective Assessments Start: 06/28/21 12:15 Freq: Status: Active Protocol: Document 06/28/21 09:30 [facility] (Rec: 06/28/21 12:30 [facility] [id number]) OT Strength Comments Strength Comments Not formally tested noted at least 3-/5 during pt's ability to assist with mobility needs . OT-Muscle Tone Assessment Muscle Tone WNL Yes M9 OT- IP Assessment and Plan Start: 06/28/21 12:15 Freq: Status: Active Protocol: Document 06/28/21 09:30 [facility] (Rec: 06/28/21 12:30 [facility] [id number]) OT Summary Assessment and Plan Potential Rehabilitation Potential Good Analytic Complexity at Evaluation Moderate Summary OT Impairments Pain,Range of Motion,Balance, Functional Cognition, Functional Mobility,Grooming, Dressing,Toileting,Bathing, Toilet Transfers,Shower Transfers,Activity Tolerance Progress Towards Goals Slow Progress due to Pain,Slow Progress due to Activity Tolerance,Slow Progress due to Cognition Assessment Summary Pt MOD complexity and main barriers are pain, step, and now needing extensive two person assist for ADl and mobility needs. Pt is willing to go to skilled rehab as current level too great for her significant other to provide. Pt is very pleasant, cooperative and easily able to encourage her to participate. Pt to go to skilled rehab when medically stable. Goals Grooming Goal Standby Assistance Dressing Goal Minimal Assistance Toileting Goal Minimal Assistance Bathing Goal Minimal Assistance Toilet Transfer Goal Standby Assistance Shower Transfer Goal Contact Guard Assistance Days to Meet Goals 40 Frequency of Treatment Frequency Of Treatment Once a Day Treatment Plan OT Treatment Plan ADL Training,Functional Cognition Training,Functional Mobility,Patient/Family Education,Discharge Planning Other Treatment Recommendations and Next Transfer to [facility] with MAXA x2. Treatment Focus Discharge Recommendations OT Discharge Recommendations SNF Rehab Transportation Needs at Discharge Wheelchair/Cabulance
[2021-06-28] MEDS: OXYCODONE IR 5 MG TABLET PO ×3 (11:07→19:32)
[2021-06-28] MEDS: CYANOCOBALAMIN (VITAMIN B-12) 500 MCG TABLET 1000 MCG PO (11:07)
[2021-06-28] MEDS: SODIUM CHLORIDE 0.9% FLUSH 10 ML IV ×2 (11:10→11:33)
[2021-06-28] MEDS: INSULIN LISPRO 100 UNIT/ML 3ML VIAL SUBCUT ×2 (12:13→17:32)
--- NOTE | 2021-06-28 12:36 | DIET.CONS ---
Dietary Consultation Note Admission Date: 06/26/2021 02:24 RD Note: , Pablo, in room when RD visited this am. States he has been helping with her DM management since 2005. Per , pt is brittle diabetic. If her BGs are under 200 we are happy and we do not treat with insulin because it can send her into the teens and we end up calling 911. Pts spouse checks her BG twice daily, gives 12U Lantus AC and if 300 range uses correctional scale to give half of the reccs. Pt consumes 2 meals daily: B: breakfast burrito containing sausage and eggs D: meat (steak for her anemia, chicken, or pulled pork) as sandwich or with starch. Pts states he has honey packets in house for when she is hypoglycemic and also apple juice. States he purchased large jug apple juice a week ago and it is nearly empty, he thinks she is drinking it during the day. Review of home BGs show 160-500 range over past week with many readings >250. Barrier to better BG control is fear of hypoglycemia. Ht: 160.02 cm Wt: 63.5 kg BMI: 24.7 UBW: Last BM: 06/25/21 (06/26/21 13:42) MNA: 10 Ty Score: 13 Diet: 06/26/21 Dinner Carbohydrate Consistent Diet Diet Modifications: glucerna tid Carbohydrate level: Medium (3 CHO) Nutrition Percent Meal Consumed 0% 06/28/21 09:38 Percent Meal Consumed 25% 06/27/21 18:00 Percent Meal Consumed 0% 06/27/21 07:00 Labs: RBC 3.10 X10^6/uL (4.0-5.2) L 06/27/21 06:05 Hgb 7.9 g/dL (12.0-16.0) L 06/28/21 05:01 Hct 24.3 % (36-46) L 06/28/21 05:01 Creatinine 2.08 mg/dL (0.52-1.04) H 06/28/21 05:01 Hemoglobin A1c 11.5 % (4.0-6.0) H 06/25/21 22:37 Nutrition Diagnosis: altered nutrition related laboratory values r/t endocrine dysfunction and suboptimal BG control aeb A1c 11.5, pt has difficulty c self management secondary to dementia, review of home BG logs show good attempts at management but BGs in 200-500 range. Interventions: 1. Because pts spouse is capable of medication management, recc pt DM med adjustment, whether combination of short and long acting insulin, or other. Pt and spouse could benefit from meeting with Code Official. Electronically Signed by: Katarzyna Slade 06/28/21 12:36 Clinical Dietitian [address] [address]
--- NOTE | 2021-06-28 13:33 | CM.DPNOTE ---
Faxed snf referral packet per Rosalina to: [facility], [place]. Emailed Jeevan DIAZ. Received conf on all Moraima Soriano CM Assist.
--- NOTE | 2021-06-28 14:30 | PT.IPTN ---
Current Diagnoses Anemia, unspecified (06/26/21) Type 2 diabetes mellitus without complications (06/26/21) Pathological fracture, right femur, initial encounter for fracture (06/26/21) Chronic kidney disease, stage 3 unspecified (06/26/21) Fracture of unspecified part of neck of right femur, initial encounter for closed fracture (06/26/21) Surgery Performed Operation Date: 06/26/21 14:15 Actual Procedures p Fixation of intertrochanteric fx(Right) - Radha Mares MD Physical Therapy Treatment Note M2 PT-IP Current Condition Start: 06/27/21 13:05 Freq: NEEDED Status: Active Protocol: Document 06/27/21 10:50 AB (Rec: 06/27/21 13:18 AB [id number]) Physical Therapy Current Condition Current Condition Evaluation Date 06/27/21 Treatment Diagnosis R intertrochanteric hip fx s/p nailing; difficulty in walking Onset Date 06/26/21 M3 PT-IP Subjective Start: 06/27/21 13:05 Freq: NEEDED Status: Active Protocol: Document 06/28/21 15:13 ROSANA (Rec: 06/28/21 15:27 LJ [id number]) Subjective Physical Therapy Visit Type Type Treatment Note Visit Start Time 09:24 Visit Stop Time 09:51 Total Visit Minutes 26 Number of TARIFF COMPILER Visits 1 Physical Therapy Visit Comments Patient Comments agreeable to do PT co treat with OT Therapy Pain Assessment Pain When Pain Assessed During Mobility Pain Present Pain Present Pain Reported Location Right Hip Intensity 10 Scale Used Numeric (0 - 10) Description Aching Pain Behaviors Calling Out,Facial Grimacing, Guarding,Wincing Pain Management Techniques Apply Cold,Modification of Treatment,Re-positioning, Timing of Activity with Medications M4 PT-IP Mobility and Gait Start: 06/27/21 13:05 Freq: NEEDED Status: Active Protocol: Document 06/28/21 15:13 LJ (Rec: 06/28/21 15:27 LJ [id number]) PT-Bed Mobility Assessment Supine to Sit Supine to Sit Maximum Assistance,2 Person Assistance,Head of Bed Elevated Scooting Scooting to Edge of Bed Maximum Assistance PT-Transfer Assessment Sit to and From Stand Sit to and from Stand Maximum Assistance,2 Person Assistance,Use of Upper Extremities Equipment Transfer Assistive Device Gait Belt,Front Wheeled Walker Orthotic/Prosthetic Devices or Brace: No Transfers Transfer Destination Bed,Chair Transfer Technique Squat Pivot Transfer Ability Level of Assist Maximum Assistance,2 Person Assistance,Use of Upper Extremities Comments Mobility Comments Pt assisted with bed exercises heel slides x5 and isometric hip ADD/ABD against TARIFF COMPILER hand. Initially unable to AB/AD but with further explaination, pt able to better follow directions. Pt assisted with LLE to move to side of bed for getting into seated position. Pt was then attempted to stand with FWW and maxA x2 and was unable the foirst time. Second attempt pt able to stand upright for 1 minute prior to sitting back on the bed. Second attempt, pt able to stand for 30 seconds with MaxA x2. Pt then sat on bed to rest for a couple of minutes. She then was assisted into the chair using squat pivot during which she used her Upper extremities to help lower herself into the chair. MaxA x1 to position in chair properly. Pt was sitting in the chair with all needs within reach and OT in room completing the treatment. Gait Assessment Comments Gait Comments unable at this time M5 PT-IP Objective Assessments Start: 06/27/21 13:05 Freq: NEEDED Status: Active Protocol: Document 06/27/21 10:50 AB (Rec: 06/27/21 13:18 AB [id number]) Orientation Orientation/Cognition Level of Alertness Confusional State Orientation Name Safety Awareness Decreased Safety Awareness Memory Description Short Term Impaired Gross Range of Motion Lower Extremity ROM Assessment Within Functional Limits Impairments increase guarding with movement on BLE Strength Lower Extremity Strength Assessment Bilaterally Impaired Comments Strength Comments RLE: 2+/5 LLE: 3+/5 Muscle Tone Muscle Tone WNL Yes M6 PT-IP Treatment Start: 06/27/21 13:05 Freq: NEEDED Status: Active Protocol: Document 06/28/21 15:13 (Rec: 06/28/21 15:27 [id number]) Physical Therapy Treatment Education Education Provided Weight Bearing Status,Safety M7 PT-IP Assessment and Plan Start: 06/27/21 13:05 Freq: NEEDED Status: Active Protocol: Document 06/28/21 15:13 (Rec: 06/28/21 15:27 [id number]) PT Summary Assessment and Plan Potential Rehabilitation Potential Fair Summary Impairments Pain,ROM,Strength,Balance, Coordination,Sensation,Tone, Cognition,Bed Mobility, Transfers,Gait,Activity Tolerance Assessment Summary pt continues to require max A x 2 for mobility and unable to ambulate with increase muscle guarding/stiffness during standing and with difficulty taking steps. pt will require SNF rehab to improve strength and mobility. Goals Bed Mobility Goal Minimal Assistance Transfer Goal Minimal Assistance,Front Wheeled Walker Gait Goal Minimal Assistance,Front Wheel Walker Gait Distance 50 Other Goals improve bed mobility, transfers to SBA, ambulation CGA using fWW 100 ft Days to Meet Goals 10 Frequency of Treatment Frequency Of Treatment Twice a Day Treatment Plan Physical Therapy Treatment Plan Bed Mobility Training,Transfer Training,Gait Training, Therapeutic Exercise,Balance Retraining,Post Op Education, Discharge Planning,Hot or Cold Pack,Neuromuscular Re-ed, Coordination Retraining,Manual Therapy Other Recommendations and Next Treatment monitor BP, ther ex; transfers Focus , gait training with FWW Weight Bearing Status Weight Bearing Status Weight Bear as Tolerated Allowed Weight Bearing Amount (enter % RLE WBAT or #) (%) Recommendations To Nursing Amount of Assist Needed Mechanical Lift Discharge Recommendations PT Discharge Recommendations SNF Rehab Transportation Needs at Discharge Wheelchair/Cabulance
--- NOTE | 2021-06-28 14:47 | PM.PNPO.1 ---
Subjective Subjective Date Patient Seen: 06/28/21 Time Patient Seen: 14:47 Interval history: Patient denies pain. No nausea or vomiting. Denies fever or chills. Exam Vital Signs (past 8 hours): - 06/28/21 07:45 06/28/21 11:00 Temperature 100.5 F H 100.3 F H Pulse Rate 87 84 Respiratory Rate 14 15 Blood Pressure 160/68 H 160/69 H Pulse Oximetry 91 97 Oxygen Delivery Method Room Air Oxygen Flow Rate 0 Narrative Exam Narrative: 66-year-old dementia patient lying comfortably in bed in no apparent distress. Right hip dressings are Clean, dry, intact.. Motor functions intact distal right lower extremity. Sensation grossly intact to light touch distal right lower extremity. Const Orientation: alert and awake Objective Labs Result Diagrams: 06/28/21 05:01 06/28/21 05:01 Labs: Laboratory Results - last 24 hr 06/28/21 06/28/21 05:01 05:01 Hgb 7.9 L Hct 24.3 L Sodium 136 L Potassium 3.6 Chloride 111 H Carbon Dioxide 19 L BUN 23 H Creatinine 2.08 H Estimated GFR 23.9 L BUN/Creatinine Ratio 11.1 Glucose 111 H Calcium 8.4 PFSH Medical History Acute on chronic diastolic heart failure Anemia Dow's esophagus with esophagitis Bilateral lower extremity edema CKD (chronic kidney disease) stage 3, GFR 30-59 ml/min CVA (cerebral vascular accident) (~2017) Dementia Diabetes Fractures Gallbladder disease GERD (gastroesophageal reflux disease) GERD (gastroesophageal reflux disease) History of urinary incontinence (~2017) Hyperlipidemia Hypertension Overactive bladder Partial blindness Post-menopausal Screening for malignant neoplasm of colon Subdural hematoma Swelling of left lower extremity Upper GI bleed Vision disorder Surgical History Anesthesia History of cholecystectomy History of hip replacement (~2019) History of surgery on arm Tubal ligation status Family History Mother Heart disease Father No problems noted. Sister Cancer Social History marital status: household members: significant other caregiver/support person: Yes Smoking Status: Former smoker alcohol intake: former Assessment & Plan Post-op Postoperative Procedures: Procedures Operation Date: 06/26/21 14:15 Actual Procedure Side Surgeon p Fixation of intertrochanteric fx Right Radha Mares MD Postoperative day: 2 Postoperative status narrative: Stable Postoperative plan narrative: status post fixation right intertrochanteric hip fracture with cephalomedullary nail June 26, 2021 weight-bearing as tolerated right lower extremity PT, OT SCDs and Lovenox for DVT prophylaxis, recommend Lovenox, renally dosed, 4 weeks for hip fracture, if mobilizing well may consider aspirin 81 mg b.i.d. disposition likely [facility] facility when stable per hospitalist follow-up with [facility] in 2 weeks for wound check, staple removal, repeat x-rays Quality VTE Deep Vein Thrombosis/Pulmonary Embolism Present on Admission: No
--- NOTE | 2021-06-28 15:23 | CM.DPNOTE ---
DCP Note According to Angelica at [facility]; there has been a resident that has tested C19+ so admissions will shut down for at least 3 days while the building goes through additional testing. ADRIENNE Valera, has kindly faxed alt SNF options and we are awaiting a CB from these facilities Updated patient who states understanding and requests this TROUBLE LOCATOR TEST DESK speak w/partner Pablo when he returns to the room JW
--- NOTE | 2021-06-28 15:29 | PT.IPTN ---
Current Diagnoses Anemia, unspecified (06/26/21) Type 2 diabetes mellitus without complications (06/26/21) Pathological fracture, right femur, initial encounter for fracture (06/26/21) Chronic kidney disease, stage 3 unspecified (06/26/21) Fracture of unspecified part of neck of right femur, initial encounter for closed fracture (06/26/21) Surgery Performed Operation Date: 06/26/21 14:15 Actual Procedures p Fixation of intertrochanteric fx(Right) - Radha Mraes MD Physical Therapy Treatment Note M2 PT-IP Current Condition Start: 06/27/21 13:05 Freq: NEEDED Status: Active Protocol: Document 06/27/21 10:50 AB (Rec: 06/27/21 13:18 AB [id number]) Physical Therapy Current Condition Current Condition Evaluation Date 06/27/21 Treatment Diagnosis R intertrochanteric hip fx s/p nailing; difficulty in walking Onset Date 06/26/21 M3 PT-IP Subjective Start: 06/27/21 13:05 Freq: NEEDED Status: Active Protocol: Document 06/28/21 15:13 ROSANA (Rec: 06/28/21 15:27 LJ [id number]) Subjective Physical Therapy Visit Type Type Treatment Note Visit Start Time 09:24 Visit Stop Time 09:51 Total Visit Minutes 26 Number of MACHINE REPAIRER MAINTENANCE Visits 1 Physical Therapy Visit Comments Patient Comments agreeable to do PT co treat with OT Therapy Pain Assessment Pain When Pain Assessed During Mobility Pain Present Pain Present Pain Reported Location Right Hip Intensity 10 Scale Used Numeric (0 - 10) Description Aching Pain Behaviors Calling Out,Facial Grimacing, Guarding,Wincing Pain Management Techniques Apply Cold,Modification of Treatment,Re-positioning, Timing of Activity with Medications M4 PT-IP Mobility and Gait Start: 06/27/21 13:05 Freq: NEEDED Status: Active Protocol: Document 06/28/21 15:13 LJ (Rec: 06/28/21 15:27 LJ [id number]) PT-Bed Mobility Assessment Supine to Sit Supine to Sit Maximum Assistance,2 Person Assistance,Head of Bed Elevated Scooting Scooting to Edge of Bed Maximum Assistance PT-Transfer Assessment Sit to and From Stand Sit to and from Stand Maximum Assistance,2 Person Assistance,Use of Upper Extremities Equipment Transfer Assistive Device Gait Belt,Front Wheeled Walker Orthotic/Prosthetic Devices or Brace: No Transfers Transfer Destination Bed,Chair Transfer Technique Squat Pivot Transfer Ability Level of Assist Maximum Assistance,2 Person Assistance,Use of Upper Extremities Comments Mobility Comments Pt assisted with bed exercises heel slides x5 and isometric hip ADD/ABD against MACHINE REPAIRER MAINTENANCE hand. Initially unable to AB/AD but with further explaination, pt able to better follow directions. Pt assisted with LLE to move to side of bed for getting into seated position. Pt was then attempted to stand with FWW and maxA x2 and was unable the foirst time. Second attempt pt able to stand upright for 1 minute prior to sitting back on the bed. Second attempt, pt able to stand for 30 seconds with MaxA x2. Pt then sat on bed to rest for a couple of minutes. She then was assisted into the chair using squat pivot during which she used her Upper extremities to help lower herself into the chair. MaxA x1 to position in chair properly. Pt was sitting in the chair with all needs within reach and OT in room completing the treatment. Gait Assessment Comments Gait Comments unable at this time M5 PT-IP Objective Assessments Start: 06/27/21 13:05 Freq: NEEDED Status: Active Protocol: Document 06/27/21 10:50 AB (Rec: 06/27/21 13:18 AB [id number]) Orientation Orientation/Cognition Level of Alertness Confusional State Orientation Name Safety Awareness Decreased Safety Awareness Memory Description Short Term Impaired Gross Range of Motion Lower Extremity ROM Assessment Within Functional Limits Impairments increase guarding with movement on BLE Strength Lower Extremity Strength Assessment Bilaterally Impaired Comments Strength Comments RLE: 2+/5 LLE: 3+/5 Muscle Tone Muscle Tone WNL Yes M6 PT-IP Treatment Start: 06/27/21 13:05 Freq: NEEDED Status: Active Protocol: Document 06/28/21 15:13 (Rec: 06/28/21 15:27 [id number]) Physical Therapy Treatment Education Education Provided Weight Bearing Status,Safety M7 PT-IP Assessment and Plan Start: 06/27/21 13:05 Freq: NEEDED Status: Active Protocol: Document 06/28/21 15:13 (Rec: 06/28/21 15:27 [id number]) PT Summary Assessment and Plan Potential Rehabilitation Potential Fair Summary Impairments Pain,ROM,Strength,Balance, Coordination,Sensation,Tone, Cognition,Bed Mobility, Transfers,Gait,Activity Tolerance Assessment Summary pt continues to require max A x 2 for mobility and unable to ambulate with increase muscle guarding/stiffness during standing and with difficulty taking steps. pt will require SNF rehab to improve strength and mobility. Goals Bed Mobility Goal Minimal Assistance Transfer Goal Minimal Assistance,Front Wheeled Walker Gait Goal Minimal Assistance,Front Wheel Walker Gait Distance 50 Other Goals improve bed mobility, transfers to SBA, ambulation CGA using fWW 100 ft Days to Meet Goals 10 Frequency of Treatment Frequency Of Treatment Twice a Day Treatment Plan Physical Therapy Treatment Plan Bed Mobility Training,Transfer Training,Gait Training, Therapeutic Exercise,Balance Retraining,Post Op Education, Discharge Planning,Hot or Cold Pack,Neuromuscular Re-ed, Coordination Retraining,Manual Therapy Other Recommendations and Next Treatment monitor BP, ther ex; transfers Focus , gait training with FWW Weight Bearing Status Weight Bearing Status Weight Bear as Tolerated Allowed Weight Bearing Amount (enter % RLE WBAT or #) (%) Recommendations To Nursing Amount of Assist Needed Mechanical Lift Discharge Recommendations PT Discharge Recommendations SNF Rehab Transportation Needs at Discharge Wheelchair/Cabulance
--- NOTE | 2021-06-28 16:16 | PM.PN.1 ---
Subjective Subjective Date Patient Seen: 06/28/21 Time Patient Seen: 16:16 Interval history: 66-year-old woman with a history of CKD [id number], PUD, diastolic CHF, essential HTN, insulin dependent uncontrolled DMtype2 with gastroporesis, chronic anemia, prior CVA, vascular dementia. She is postop day 2 right hip ORIF. She continues to improve, denies complaints today. awaiting on possible placement options at this time as she still requires significant assistance. Exam Vital Signs (past 8 hours): - 06/28/21 11:00 Temperature 100.3 F H Pulse Rate 84 Respiratory Rate 15 Blood Pressure 160/69 H Pulse Oximetry 97 Oxygen Delivery Method Room Air Oxygen Flow Rate 0 Narrative Exam Narrative: General:? Alert and NAD sitting in chair Lungs: CTA b/l CV: RRR, no m/r/g. Extremities:? Right hip postop dressing intact, no distal edema Neurological:? Appears at baseline mentation Objective Labs Result Diagrams: 06/28/21 05:01 06/28/21 05:01 Labs: Laboratory Results - last 24 hr 06/28/21 06/28/21 05:01 05:01 Hgb 7.9 L Hct 24.3 L Sodium 136 L Potassium 3.6 Chloride 111 H Carbon Dioxide 19 L BUN 23 H Creatinine 2.08 H Estimated GFR 23.9 L BUN/Creatinine Ratio 11.1 Glucose 111 H Calcium 8.4 PFSH Medical History Acute on chronic diastolic heart failure Anemia Dow's esophagus with esophagitis Bilateral lower extremity edema CKD (chronic kidney disease) stage 3, GFR 30-59 ml/min CVA (cerebral vascular accident) (~2018) Dementia Diabetes Fractures Gallbladder disease GERD (gastroesophageal reflux disease) GERD (gastroesophageal reflux disease) History of urinary incontinence (~2017) Hyperlipidemia Hypertension Overactive bladder Partial blindness Post-menopausal Screening for malignant neoplasm of colon Subdural hematoma Swelling of left lower extremity Upper GI bleed Vision disorder Surgical History Anesthesia History of cholecystectomy History of hip replacement (~2019) History of surgery on arm Tubal ligation status Family History Mother Heart disease Father No problems noted. Sister Cancer Social History marital status: household members: significant other caregiver/support person: Yes Smoking Status: Former smoker alcohol intake: former Assessment & Plan Assessment & Plan narrative: 1. Pathologic right intratrochanteric fracture, ground level fall, acute -status post ORIF 06/26/2019 to -pain well controlled, continue managing with oral meds -Hep-Lock IV -DC'd Anderson -PT/OT consult appreciated, hopeful for SNF. 2.? Acute blood loss anemia secondary to hip fracture -received 1 unit PRBC preop -Lasix 40 mg IV x1 on 06/27 somewhat prophylactically based on fluid balance. Now stablee. 3. Type 2 diabetes insulin requiring, poor labile control -glucose over 300 on admit, now much improved. -A1c 11.5% -improved control postop, CBG less than 200 -continue patient's Lantus 12 units HS, use sliding scale in hospital 4. Hypertension -holding antihypertensives, amlodipine and lisinopril, perioperatively 5.? CKD -slight bump in creatinine 06/27 -recheck BMP in a.m. 6. Diastolic heart failure, stable -monitor fluid status -06/28 resumed Lasix 20 mg q.a.m. 7. Dementia -appears at baseline, without evidence acute delirium 8. Urinary tract infection present on admission -urine culture growing Klebsiella -Cipro 500 mg q.d. x3 days prescribed, renal dosing Dispo: curretly evaluating for SNF options, limited due to COVID outbreaks locally, will continue to work with care management. Time Spent With Patient Critical Care time: I spent a total of [] minutes of critical care time on this patient's care today; this time is exclusive of procedural time. Quality VTE Deep Vein Thrombosis/Pulmonary Embolism Present on Admission: No
[2021-06-28] MEDS: ATORVASTATIN 20 MG TABLET 40 MG PO (23:20)
[2021-06-28] MEDS: INSULIN GLARGINE 100 UNIT/ML 3ML PEN 12 UNIT SUBCUT (23:26)
[2021-06-29] VITALS (10 sets, daily range): BP systolic 122–171; BP diastolic 61–79; PULSE 81–101; RESP 15–16; TEMP 36.8–37.6; O2SAT 94–97
[2021-06-29] MEDS: OXYCODONE IR 5 MG TABLET PO ×2 (08:25→17:04)
[2021-06-29] MEDS: ACETAMINOPHEN 325 MG TABLET 975 MG PO ×2 (08:26→21:24)
[2021-06-29] MEDS: OXYBUTYNIN 5 MG ER TAB PO (08:26)
[2021-06-29] MEDS: CYANOCOBALAMIN (VITAMIN B-12) 500 MCG TABLET 1000 MCG PO (08:26)
[2021-06-29] MEDS: ENOXAPARIN 30 MG/0.3 ML SYRINGE SUBCUT (08:26)
[2021-06-29] MEDS: CIPROFLOXACIN 250 MG TABLET 500 MG PO (08:27)
[2021-06-29] MEDS: DOCUSATE 100 MG CAPSULE PO ×2 (08:28→21:23)
[2021-06-29] MEDS: SUCRALFATE 1 GM TABLET PO ×4 (08:28→21:25)
[2021-06-29] MEDS: FUROSEMIDE 20 MG TABLET PO (08:28)
[2021-06-29] MEDS: CHOLECALCIFEROL (VITAMIN D3) 1,000 UNIT TABLET 1000 UNIT PO ×2 (08:28→21:25)
[2021-06-29] MEDS: PANTOPRAZOLE DR 20 MG TABLET PO (08:31)
[2021-06-29] MEDS: INSULIN LISPRO 100 UNIT/ML 3ML VIAL SUBCUT ×4 (08:33→21:23)
--- NOTE | 2021-06-29 09:12 | PC.NURSE ---
Patient seems frustrated today, per report she thought that her was going to divorce her, she is teary eyed this morning. Patient ate 10% of her breakfast. Two cover site dressings applied to incisions to r.hip, cdi. Patient pulled out both of her iv's to bilateral hands last evening. She does not have iv access now, COMMUNITY RELATIONS REPRESENTATIVE last night states to leave out unless needed. She is resting comfortably now and waiting for her to come and visit her.
--- NOTE | 2021-06-29 10:10 | CM.DPNOTE ---
Addendum entered by Moraima Soriano 06/29/21 12:26: Spoke to Ruby from [facility]. She said they have been following patient prior to hospitalization. Please contact her to resume services or if pt. goes to Snf. Moraima Soriano CM Assist. Addendum entered by Moraima Soriano 06/29/21 10:13: [facility] Moraima Soirano CM Assist. Original Note: Emailed snf referral per [place] to [facility]. Moraima Soriano CM Asst.
--- NOTE | 2021-06-29 11:17 | OT.IP.TRT ---
Current Diagnoses Anemia, unspecified (06/26/21) Type 2 diabetes mellitus without complications (06/26/21) Pathological fracture, right femur, initial encounter for fracture (06/26/21) Chronic kidney disease, stage 3 unspecified (06/26/21) Fracture of unspecified part of neck of right femur, initial encounter for closed fracture (06/26/21) Surgery Performed Operation Date: 06/26/21 14:15 Actual Procedures p Fixation of intertrochanteric fx(Right) - Radha Mares MD Occupational Therapy Treatment Note M2 OT-IP Current Condition Start: 06/28/21 12:15 Freq: Status: Active Protocol: Document 06/28/21 09:30 [facility] (Rec: 06/28/21 12:30 [facility] [id number]) Occupational Therapy Current Condition Current Condition Evaluation Date 06/28/21 Treatment Diagnosis Right intertrochanteric hip fx s/p nailing Diagnosis Onset Date 06/26/21 Weight Bearing Status Weight Bearing Status Weight Bear as Tolerated M3 OT- IP Subjective and Pain Start: 06/28/21 12:15 Freq: Status: Active Protocol: Document 06/29/21 10:50 [facility] (Rec: 06/29/21 14:33 [facility] [id number]) OT- Subjective Occupational Therapy Visit Type Type Treatment Note Visit Start Time 10:50 Visit Stop Time 11:17 Total Visit Minutes 27 Occupational Therapy Visit Comments Patient Comments Pt agreeable to get up and OFFICE HELPER CLERICAL present to assist as pt needing extensive assist for mobility needs. Patient/Caregiver Goals To go home, but realizes would be best to go to skilled rehab prior to going home. OT Pain Assessment Pain When Pain Assessed During Mobility Pain Present Pain Present Pain Reported M4 OT- IP ADL's Start: 06/28/21 12:15 Freq: Status: Active Protocol: Document 06/29/21 10:50 [facility] (Rec: 06/29/21 14:33 [facility] [id number]) OT SDA-Xoir-Vrolqfj Comments OT Self-Feeding Comments NOt at meal time. OT ADL-Grooming General Evaluation Grooming Ability Minimal Assistance Comments OT Grooming Comments CRISTIAN to thoroughly brush her hair and braid it. OT ADL-Oral Care General Eval Oral Care Ability Standby Assistance Areas of Assistance Retrieving/Set-Up of Items OT ADL-Dressing General Eval Lower Body Dressing Ability Maximum Assistance Areas Needing Assistance Socks OT ADL-Bathing Comments OT Bathing Comments sponge bathing more appropriate at this time M5 OT- IP IADL's Start: 06/28/21 12:15 Freq: Status: Active Protocol: Document 06/28/21 09:30 [facility] (Rec: 06/28/21 12:30 [facility] [id number]) OT-Instrumental Activities of Daily Living Home Safety Awareness Home Safety Comments Pt a little confused and inconsistent when stating how much assist she needs at home. Medication Management Medication Management Caregiver Administers Money Management Money Management Caregiver Provides Assistance Meal Preparation Meal Preparation Caregiver Provides Assist Protection Mgr Protection Mgr Caregiver Provides Assist M6 OT- IP Functional Cognition Start: 06/28/21 12:15 Freq: Status: Active Protocol: Document 06/29/21 10:50 [facility] (Rec: 06/29/21 14:33 [facility] [id number]) Cognitive Factors Limiting Selfcare Function Cognitive Ability Level of Alertness Alert Patient Orientation Name,Place Attention Span Ability Capable of Focused Attention, Capable of Sustained Attention Ability to Follow Commands Able to Follow One Step Commands with Increased Time, Able to Follow One Step Commands with Repetition Memory Description Short Term Impaired Cognitive Comments Cognitive Assessment Comments Per pt is baseline for her cognitive needs. M7 OT- IP Mobility and Balance Start: 06/28/21 12:15 Freq: Status: Active Protocol: Document 06/29/21 10:50 [facility] (Rec: 06/29/21 14:33 [facility] [id number]) OT- Bed Mobility Assessment Supine to Sit Supine to Sit Assist Maximum Assistance,2 Person Assistance,Head of Bed Elevated,Bedrails Sit to Supine Sit to Supine Assist Maximum Assistance,2 Person Assistance OT-Transfer Assessment Sit to and From Stand Sit to and from Stand Moderate Assistance,2 Person Assistance Comments Mobility Comments Pt able to stand with MODA X 2 to FWW and able to stand for just over one minute x2. OT- Gait Assessment Comments Gait Ability Comments Pt not able to transfer today. OT- Balance Assessment Sitting Balance and Reactions Static Sitting Balance Ability Fair Standing Balance and Reactions Static Standing Balance Ability Poor M8 OT- IP Objective Assessments Start: 06/28/21 12:15 Freq: Status: Active Protocol: Document 06/28/21 09:30 [facility] (Rec: 06/28/21 12:30 [facility] [id number]) OT Strength Comments Strength Comments Not formally tested noted at least 3-/5 during pt's ability to assist with mobility needs . OT-Muscle Tone Assessment Muscle Tone WNL Yes M9 OT- IP Assessment and Plan Start: 06/28/21 12:15 Freq: Status: Active Protocol: Document 06/29/21 10:50 [facility] (Rec: 06/29/21 14:33 [facility] [id number]) OT Summary Assessment and Plan Potential Rehabilitation Potential Fair Analytic Complexity at Evaluation Moderate Summary OT Impairments Pain,Range of Motion,Balance, Functional Cognition, Functional Mobility,Grooming, Dressing,Toileting,Bathing, Toilet Transfers,Shower Transfers,Activity Tolerance Progress Towards Goals Slow Progress due to Medical Issues,Slow Progress due to Activity Tolerance,Slow Progress due to Cognition Assessment Summary Pt needing constant encouragement, cues and increased time to partake in bed mobility today. To look into timing her pain medication with therapy with nursing tomorrow and set a time with the pt. Pt would benefit skilled rehab. Goals Grooming Goal Standby Assistance Dressing Goal Minimal Assistance Toileting Goal Minimal Assistance Bathing Goal Minimal Assistance Toilet Transfer Goal Standby Assistance Shower Transfer Goal Contact Guard Assistance Days to Meet Goals 39 Frequency of Treatment Frequency Of Treatment Once a Day Treatment Plan OT Treatment Plan ADL Training,Functional Cognition Training,Functional Mobility,Patient/Family Education,Discharge Planning Other Treatment Recommendations and Next Transfer to [facility] with MAXA x2. Treatment Focus Discharge Recommendations OT Discharge Recommendations SNF Rehab Transportation Needs at Discharge Wheelchair/Cabulance
--- NOTE | 2021-06-29 11:17 | PT.IPTN ---
Current Diagnoses Anemia, unspecified (06/26/21) Type 2 diabetes mellitus without complications (06/26/21) Pathological fracture, right femur, initial encounter for fracture (06/26/21) Chronic kidney disease, stage 3 unspecified (06/26/21) Fracture of unspecified part of neck of right femur, initial encounter for closed fracture (06/26/21) Surgery Performed Operation Date: 06/26/21 14:15 Actual Procedures p Fixation of intertrochanteric fx(Right) - Radha Mares MD Physical Therapy Treatment Note M2 PT-IP Current Condition Start: 06/27/21 13:05 Freq: NEEDED Status: Active Protocol: Document 06/27/21 10:50 AB (Rec: 06/27/21 13:18 AB [id number]) Physical Therapy Current Condition Current Condition Evaluation Date 06/27/21 Treatment Diagnosis R intertrochanteric hip fx s/p nailing; difficulty in walking Onset Date 06/26/21 M3 PT-IP Subjective Start: 06/27/21 13:05 Freq: NEEDED Status: Active Protocol: Document 06/29/21 10:48 [place] (Rec: 06/29/21 11:53 KS [id number]) Subjective Physical Therapy Visit Type Type Treatment Note Visit Start Time 10:48 Visit Stop Time 11:17 Total Visit Minutes 29 Notes spouse in room Number of MUSEUM TOUR GUIDE Visits 2 Physical Therapy Visit Comments Patient Comments agreeable to do PT co treat with OT Therapy Pain Assessment Pain When Pain Assessed During Mobility Pain Present Pain Present Pain Reported M4 PT-IP Mobility and Gait Start: 06/27/21 13:05 Freq: NEEDED Status: Active Protocol: Document 06/29/21 10:48 KS (Rec: 06/29/21 11:53 KS [id number]) PT-Bed Mobility Assessment Supine to Sit Supine to Sit Maximum Assistance,2 Person Assistance,Head of Bed Elevated Sit to Supine Sit to Supine Maximum Assistance,2 Person Assistance Scooting Scooting to Edge of Bed Maximum Assistance PT-Transfer Assessment Sit to and From Stand Sit to and from Stand Moderate Assistance,2 Person Assistance,Use of Upper Extremities Equipment Transfer Assistive Device Gait Belt,Front Wheeled Walker Orthotic/Prosthetic Devices or Brace: No Transfers Transfer Destination Bed Transfer Technique STS Transfer Ability Level of Assist Maximum Assistance,2 Person Assistance,Use of Upper Extremities Comments Mobility Comments Pt in bed upon arrival and agreeable to working but needs encouragement. Max A x2 for sup<.sit and scooting EOB. Once EOB, pt sit<>stand w/ Mod A x2 and FWW and able to remain standing `30 seconds but unable to elevate feet off floor for marching in place. Pt took 2 min seated rest break and then performed 2 more sit<>stands w/ FWW and Mod A x2. On the first, she was able to maintain standing 1 min 15 seconds, and on the second 1 min 10 seconds. Max A for sit<>sup. Gait Assessment Comments Gait Comments unable at this time M5 PT-IP Objective Assessments Start: 06/27/21 13:05 Freq: NEEDED Status: Active Protocol: Document 06/27/21 10:50 AB (Rec: 06/27/21 13:18 AB [id number]) Orientation Orientation/Cognition Level of Alertness Confusional State Orientation Name Safety Awareness Decreased Safety Awareness Memory Description Short Term Impaired Gross Range of Motion Lower Extremity ROM Assessment Within Functional Limits Impairments increase guarding with movement on BLE Strength Lower Extremity Strength Assessment Bilaterally Impaired Comments Strength Comments RLE: 2+/5 LLE: 3+/5 Muscle Tone Muscle Tone WNL Yes M6 PT-IP Treatment Start: 06/27/21 13:05 Freq: NEEDED Status: Active Protocol: Document 06/29/21 10:48 KS (Rec: 06/29/21 11:53 KS [id number]) Physical Therapy Treatment Education Education Provided Weight Bearing Status,Safety M7 PT-IP Assessment and Plan Start: 06/27/21 13:05 Freq: NEEDED Status: Active Protocol: Document 06/29/21 10:48 KS (Rec: 06/29/21 11:53 KS [id number]) PT Summary Assessment and Plan Potential Rehabilitation Potential Fair Summary Impairments Pain,ROM,Strength,Balance, Coordination,Sensation,Tone, Cognition,Bed Mobility, Transfers,Gait,Activity Tolerance Progress Towards Goals Slow Progress due to Pain,Slow Progress due to Activity Tolerance,Slow Progress - Other Assessment Summary Pt continues to require Max Ax2 for bed mobility, but was able to perform 3x sit<>stands Mod A x2 w/ FWW today. She will require SNF to improve strength and functional mobility. Goals Bed Mobility Goal Minimal Assistance Transfer Goal Minimal Assistance,Front Wheeled Walker Gait Goal Minimal Assistance,Front Wheel Walker Gait Distance 50 Other Goals improve bed mobility, transfers to SBA, ambulation CGA using fWW 100 ft Days to Meet Goals 10 Frequency of Treatment Frequency Of Treatment Twice a Day Treatment Plan Physical Therapy Treatment Plan Bed Mobility Training,Transfer Training,Gait Training, Therapeutic Exercise,Balance Retraining,Post Op Education, Discharge Planning,Hot or Cold Pack,Neuromuscular Re-ed, Coordination Retraining,Manual Therapy Other Recommendations and Next Treatment monitor BP, ther ex; transfers Focus , gait training with FWW Weight Bearing Status Weight Bearing Status Weight Bear as Tolerated Allowed Weight Bearing Amount (enter % RLE WBAT or #) (%) Recommendations To Nursing Amount of Assist Needed Mechanical Lift Discharge Recommendations PT Discharge Recommendations SNF Rehab Transportation Needs at Discharge Wheelchair/Cabulance
[2021-06-29] MEDS: SODIUM CHLORIDE 0.9% FLUSH 10 ML IV ×2 (12:13→21:26)
--- NOTE | 2021-06-29 14:06 | P.PN_ITS ---
Subjective Subjective Date Patient Seen: 06/29/21 Time Patient Seen: 14:06 Interval history: Patient is complaining of [id number] pain in her right hip. She is using oxy 5-10 mg, Tylenol and Lovenox which is renally dosed. She is requiring a Aman lift. Exam Vital Signs (past 8 hours): - 06/29/21 07:35 06/29/21 11:30 06/29/21 13:43 Temperature 98.2 F 99.3 F Pulse Rate 81 82 Respiratory Rate 15 15 Blood Pressure 171/79 H 122/64 Pulse Oximetry 96 95 95 Oxygen Delivery Method Room Air Oxygen Flow Rate 0 Narrative Exam Narrative: Pleasant 66-year-old female, resting comfortably in bed, no acute distress. D ressing demonstrates a small dried droplet of blood on the proximal dressing, otherwise clean, dry, intact. No surrounding erythema. Bilateral lower extremity: Motor function is grossly intact, sensation is grossly intact to light touch, calves are soft and nontender to palpation. Objective Labs Result Diagrams: 06/28/21 05:01 06/28/21 05:01 [facility] Medical History Acute on chronic diastolic heart failure Anemia Dow's esophagus with esophagitis Bilateral lower extremity edema CKD (chronic kidney disease) stage 3, GFR 30-59 ml/min CVA (cerebral vascular accident) (~2018) Dementia Diabetes Fractures Gallbladder disease GERD (gastroesophageal reflux disease) GERD (gastroesophageal reflux disease) History of urinary incontinence (~2018) Hyperlipidemia Hypertension Overactive bladder Partial blindness Post-menopausal Screening for malignant neoplasm of colon Subdural hematoma Swelling of left lower extremity Upper GI bleed Vision disorder Surgical History Anesthesia History of cholecystectomy History of hip replacement (~2019) History of surgery on arm Tubal ligation status Family History Mother Heart disease Father No problems noted. Sister Cancer Social History marital status: household members: significant other caregiver/support person: Yes Smoking Status: Former smoker alcohol intake: former Assessment & Plan Post-op Postoperative Procedures: Procedures Operation Date: 06/26/21 14:15 Actual Procedure Side Surgeon p Fixation of intertrochanteric fx Right Radha Mares MD Postoperative day: 3 Postoperative status narrative: Stable status post fixation right intert rochanteric hip fracture with cephalomedullary nail June 26, 2021 Postoperative plan narrative: -Mobilize with PT. weight-bearing as tolerated right lower extremity -SCDs and Lovenox for DVT prophylaxis, recommend Lovenox, renally dosed, 4 weeks for hip fracture, if mobilizing well may consider aspirin 81 mg b.i.d. -disposition likely snf facility when stable per hospitalist -follow-up with [facility] in 2 weeks for wound check, staple removal, repeat x-rays Quality VTE Deep Vein Thrombosis/Pulmonary Embolism Present on Admission: No
--- NOTE | 2021-06-29 14:21 | PT-IP ANOTE ---
Pt refused therapy for the second time this PM due to high reported pain. Pt said she is unable to move or do exercises because it just hurts too bad. CREDIT SUPPORT COUNSELOR aware.
--- NOTE | 2021-06-29 15:07 | P.PN_ITS ---
Subjective Subjective Date Patient Seen: 06/29/21 Time Patient Seen: 15:07 Interval history: 6-year-old woman with a history of CKD loreb2d, PUD, diastolic CHF, essential HTN, insulin dependent uncontrolled DMtype2 with gastroporesis, chronic anemia, prior CVA, vascular dementia. She is postop from right hip ORIF. Denies complaints today. awaiting on possible placement options at this time as she still requires significant assistance. Exam Vital Signs (past 8 hours): - 06/29/21 07:35 06/29/21 11:30 06/29/21 13:43 Temperature 98.2 F 99.3 F Pulse Rate 81 82 Respiratory Rate 15 15 Blood Pressure 171/79 H 122/64 Pulse Oximetry 96 95 95 Oxygen Delivery Method Room Air Oxygen Flow Rate 0 Narrative Exam Narrative: General:? Alert and NAD sitting in chair Lungs: CTA b/l CV: RRR, no m/r/g. Extremities:? Right hip postop dressing intact, no distal edema Neurological:? Appears at baseline mentation Objective Labs Result Diagrams: 06/28/21 05:01 06/28/21 05:01 [facility] Medical History Acute on chronic diastolic heart failure Anemia Dow's esophagus with esophagitis Bilateral lower extremity edema CKD (chronic kidney disease) stage 3, GFR 30-59 ml/min CVA (cerebral vascular accident) (~2018) Dementia Diabetes Fractures Gallbladder disease GERD (gastroesophageal reflux disease) GERD (gastroesophageal reflux disease) History of urinary incontinence (~2018) Hyperlipidemia Hypertension Overactive bladder Partial blindness Post-menopausal Screening for malignant neoplasm of colon Subdural hematoma Swelling of left lower extremity Upper GI bleed Vision disorder Surgical History Anesthesia History of cholecystectomy History of hip replacement (~2019) History of surgery on arm Tubal ligation status Family History Mother Heart disease Father No problems noted. Sister Cancer Social History marital status: household members: significant other caregiver/support person: Yes Smoking Status: Former smoker alcohol intake: former Assessment & Plan Assessment & Plan narrative: 1. Pathologic right intratrochanteric fracture, ground level fall, acute -status post ORIF 06/26/2019 to -pain well controlled, continue managing with oral meds -Hep-Lock IV -DC'd Justin -PT/OT consult appreciated, hopeful for SNF. 2.? Acute blood loss anemia secondary to hip fracture -received 1 unit PRBC preop -Lasix 40 mg IV x1 on 06/27 somewhat prophylactically based on fluid balance. Now stablee. 3. Type 2 diabetes insulin requiring, poor labile control -glucose over 300 on admit, now much improved. -A1c 11.5% -improved control postop, CBG less than 200 -continue patient's Lantus 12 units HS, use sliding scale in hospital 4. Hypertension -holding antihypertensives, amlodipine and lisinopril, perioperatively 5.? CKD -slight bump in creatinine 06/27 -recheck BMP in a.m. 6. Diastolic heart failure, stable -monitor fluid status -06/28 resumed Lasix 20 mg q.a.m. 7. Dementia -appears at baseline, without evidence acute delirium 8. Urinary tract infection present on admission -urine culture growing Klebsiella -Cipro 500 mg q.d. x3 days prescribed, renal dosing Dispo: curretly evaluating for SNF options, limited due to COVID outbreaks locally, will continue to work with care management. Time Spent With Patient Critical Care time: I spent a total of [] minutes of critical care time on this patient's care today; this time is exclusive of procedural time. Quality VTE Deep Vein Thrombosis/Pulmonary Embolism Present on Admission: No
[2021-06-29] MEDS: INSULIN GLARGINE 100 UNIT/ML 3ML PEN 12 UNIT SUBCUT (21:23)
[2021-06-29] MEDS: ATORVASTATIN 20 MG TABLET 40 MG PO (21:24)
[2021-06-29] MEDS: OXYCODONE IR 10 MG TABLET PO (21:25)
[2021-06-30] VITALS (8 sets, daily range): BP systolic 135–153; BP diastolic 66–73; PULSE 74–83; RESP 16–17; TEMP 36.2–37.1; O2SAT 94–98
[2021-06-30] MEDS: OXYCODONE IR 10 MG TABLET PO ×3 (00:27→22:45)
[2021-06-30] MEDS: PANTOPRAZOLE DR 20 MG TABLET PO (06:24)
--- NOTE | 2021-06-30 06:42 | PC.NURSE ---
Denies any pain, states I don't need any pain medicine. Will Continue POC & monitor.
[2021-06-30] MEDS: INSULIN LISPRO 100 UNIT/ML 3ML VIAL SUBCUT ×4 (09:18→22:00)
[2021-06-30] MEDS: DOCUSATE 100 MG CAPSULE PO ×2 (09:20→20:35)
[2021-06-30] MEDS: OXYCODONE IR 5 MG TABLET PO ×2 (09:20→20:36)
[2021-06-30] MEDS: SUCRALFATE 1 GM TABLET PO ×3 (09:20→20:36)
[2021-06-30] MEDS: CHOLECALCIFEROL (VITAMIN D3) 1,000 UNIT TABLET 1000 UNIT PO ×2 (09:21→20:36)
[2021-06-30] MEDS: CYANOCOBALAMIN (VITAMIN B-12) 500 MCG TABLET 1000 MCG PO (09:21)
[2021-06-30] MEDS: ENOXAPARIN 30 MG/0.3 ML SYRINGE SUBCUT (09:21)
[2021-06-30] MEDS: FUROSEMIDE 20 MG TABLET PO (09:21)
[2021-06-30] MEDS: ACETAMINOPHEN 325 MG TABLET 975 MG PO ×3 (09:21→22:00)
[2021-06-30] MEDS: CIPROFLOXACIN 250 MG TABLET 500 MG PO (09:21)
[2021-06-30] MEDS: OXYBUTYNIN 5 MG ER TAB PO (09:21)
[2021-06-30] MEDS: SODIUM CHLORIDE 0.9% FLUSH 10 ML IV (09:22)
--- NOTE | 2021-06-30 09:33 | PM.PNPO.1 ---
Subjective Subjective Date Patient Seen: 06/30/21 Time Patient Seen: 09:33 Interval history: Patient states her right hip is sore but pain is controlled. Denies fever or chills. No nausea. Exam Vital Signs (past 8 hours): - 06/30/21 02:00 06/30/21 03:00 06/30/21 06:00 Temperature 97.2 F L Pulse Rate 77 Respiratory Rate 16 Blood Pressure 143/73 H Pulse Oximetry 97 96 94 Oxygen Delivery Method Room Air Oxygen Flow Rate 0 Narrative Exam Narrative: 66-year-old female resting comfortably in bed in no apparent distress. Dressing is intact, clean and dry. Motor functions intact bilateral lower extremities. Sensation grossly intact to light touch bilateral lower extremities. Objective Labs Result Diagrams: 06/28/21 05:01 06/28/21 05:01 [facility] Medical History Acute on chronic diastolic heart failure Anemia Dow's esophagus with esophagitis Bilateral lower extremity edema CKD (chronic kidney disease) stage 3, GFR 30-59 ml/min CVA (cerebral vascular accident) (~2017) Dementia Diabetes Fractures Gallbladder disease GERD (gastroesophageal reflux disease) GERD (gastroesophageal reflux disease) History of urinary incontinence (~2017) Hyperlipidemia Hypertension Overactive bladder Partial blindness Post-menopausal Screening for malignant neoplasm of colon Subdural hematoma Swelling of left lower extremity Upper GI bleed Vision disorder Surgical History Anesthesia History of cholecystectomy History of hip replacement (~2019) History of surgery on arm Tubal ligation status Family History Mother Heart disease Father No problems noted. Sister Cancer Social History marital status: household members: significant other caregiver/support person: Yes Smoking Status: Former smoker alcohol intake: former Assessment & Plan Post-op Postoperative Procedures: Procedures Operation Date: 06/26/21 14:15 Actual Procedure Side Surgeon p Fixation of intertrochanteric fx Right Radha Mares MD Postoperative status narrative: Stable Postoperative plan narrative: status post fixation right intertrochanteric hip fracture with cephalomedullary nail June 26, 2021 weight-bearing as tolerated right lower extremity PT, OT SCDs and Lovenox for DVT prophylaxis, recommend Lovenox, renally dosed, 4 weeks for hip fracture, if mobilizing well may consider aspirin 81 mg b.i.d. disposition likely shelter facility when stable per hospitalist follow-up with [facility] in 2 weeks for wound check, staple removal, repeat x-ray Quality VTE Deep Vein Thrombosis/Pulmonary Embolism Present on Admission: No
--- NOTE | 2021-06-30 10:15 | OT.IP.TRT ---
Current Diagnoses Anemia, unspecified (06/26/21) Type 2 diabetes mellitus without complications (06/26/21) Pathological fracture, right femur, initial encounter for fracture (06/26/21) Chronic kidney disease, stage 3 unspecified (06/26/21) Fracture of unspecified part of neck of right femur, initial encounter for closed fracture (06/26/21) Surgery Performed Operation Date: 06/26/21 14:15 Actual Procedures p Fixation of intertrochanteric fx(Right) - Radha Mares MD Occupational Therapy Treatment Note M2 OT-IP Current Condition Start: 06/28/21 12:15 Freq: Status: Active Protocol: Document 06/28/21 09:30 [facility] (Rec: 06/28/21 12:30 [facility] [id number]) Occupational Therapy Current Condition Current Condition Evaluation Date 06/28/21 Treatment Diagnosis Right intertrochanteric hip fx s/p nailing Diagnosis Onset Date 06/26/21 Weight Bearing Status Weight Bearing Status Weight Bear as Tolerated M3 OT- IP Subjective and Pain Start: 06/28/21 12:15 Freq: Status: Active Protocol: Document 06/30/21 10:15 [facility] (Rec: 06/30/21 11:00 [facility] [id number]) OT- Subjective Occupational Therapy Visit Type Type Treatment Note Visit Start Time 10:15 Visit Stop Time 10:48 Total Visit Minutes 33 Occupational Therapy Visit Comments Patient Comments Pt initially thought she initially had to use the BSC and then not having to. Pt agreed to work with OT/CULL GRADER. Patient/Caregiver Goals To go home, but realizes would be best to go to skilled rehab prior to going home. OT Pain Assessment Pain When Pain Assessed During Mobility Pain Present Pain Present Pain Reported M4 OT- IP ADL's Start: 06/28/21 12:15 Freq: Status: Active Protocol: Document 06/30/21 10:15 [facility] (Rec: 06/30/21 11:00 [facility] [id number]) OT ADL-Grooming Comments OT Grooming Comments Assist thoroughly brush her hair and braid it. OT ADL-Oral Care General Eval Oral Care Ability Standby Assistance Areas of Assistance Retrieving/Set-Up of Items Comments Oral Care Comments while seated on the edge of the bed OT ADL-Dressing General Eval Lower Body Dressing Ability Maximum Assistance Areas Needing Assistance Socks Comments OT Dressing Comments Began to educated pt on use of LB dressing equipment. Pt will need continued practice due to her decreased in STM. OT ADL-Bathing Comments OT Bathing Comments sponge bathing more appropriate at this time M5 OT- IP IADL's Start: 06/28/21 12:15 Freq: Status: Active Protocol: Document 06/28/21 09:30 [facility] (Rec: 06/28/21 12:30 [facility] [id number]) OT-Instrumental Activities of Daily Living Home Safety Awareness Home Safety Comments Pt a little confused and inconsistent when stating how much assist she needs at home. Medication Management Medication Management Caregiver Administers Money Management Money Management Caregiver Provides Assistance Meal Preparation Meal Preparation Caregiver Provides Assist Coffin Maker Coffin Maker Caregiver Provides Assist M6 OT- IP Functional Cognition Start: 06/28/21 12:15 Freq: Status: Active Protocol: Document 06/30/21 10:15 [facility] (Rec: 06/30/21 11:00 [facility] [id number]) Cognitive Factors Limiting Selfcare Function Cognitive Ability Level of Alertness Alert Patient Orientation Name,Place Attention Span Ability Capable of Focused Attention, Capable of Sustained Attention Ability to Follow Commands Able to Follow One Step Commands with Increased Time, Able to Follow One Step Commands with Repetition Memory Description Short Term Impaired Cognitive Comments Cognitive Assessment Comments Pt tends to focus on her pt but able to easily redirect especially when talking about her dog. Pt having a hard time getting over the fact that she fell and broke her hip. Able to encourage pt to focus on getting better versus dwelling on what happened in the past. M7 OT- IP Mobility and Balance Start: 06/28/21 12:15 Freq: Status: Active Protocol: Document 06/30/21 10:15 [facility] (Rec: 06/30/21 11:00 [facility] [id number]) OT- Bed Mobility Assessment Supine to Sit Supine to Sit Assist Maximum Assistance,1 Person Assistance OT-Transfer Assessment Sit to and From Stand Sit to and from Stand Minimal Assistance,2 Person Assistance Comments Mobility Comments MAXAX 1 to the edge of the bed and use of green pad to assist to scoot to the edge of the bed. CRISTIAN x2 to stand to FWW and able to stand from up to 2 min and 50 seconds today . Pt with assist MODA X2 able to slide her feet at little to get to the head on the bed better. OT- Balance Assessment Sitting Balance and Reactions Static Sitting Balance Ability Fair Standing Balance and Reactions Static Standing Balance Ability Poor M9 OT- IP Assessment and Plan Start: 06/28/21 12:15 Freq: Status: Active Protocol: Document 06/30/21 10:15 [facility] (Rec: 06/30/21 11:00 [facility] [id number]) OT Summary Assessment and Plan Potential Rehabilitation Potential Good Analytic Complexity at Evaluation Moderate Summary OT Impairments Pain,Range of Motion,Balance, Functional Cognition, Functional Mobility,Grooming, Dressing,Toileting,Bathing, Toilet Transfers,Shower Transfers,Activity Tolerance Progress Towards Goals Slow Progress due to Pain,Slow Progress due to Activity Tolerance,Slow Progress due to Cognition Assessment Summary Pt doing better able to tolerate standing with FWW for almost 3 minutes with one person assist while stand. Pt able to do grooming needs while seated on the edge of the bed and also able to practice use of LB dressing equipment today. Pt looking to go to skilled rehab. Goals Grooming Goal Standby Assistance Dressing Goal Minimal Assistance Toileting Goal Minimal Assistance Bathing Goal Minimal Assistance Toilet Transfer Goal Standby Assistance Shower Transfer Goal Contact Guard Assistance Days to Meet Goals 35 Frequency of Treatment Frequency Of Treatment Once a Day Treatment Plan OT Treatment Plan ADL Training,Functional Cognition Training,Functional Mobility,Patient/Family Education,Discharge Planning Other Treatment Recommendations and Next [place] [facility] [place] Treatment Focus Discharge Recommendations OT Discharge Recommendations SNF Rehab Transportation Needs at Discharge Wheelchair/Cabulance
--- NOTE | 2021-06-30 10:48 | PT.IPTN ---
Current Diagnoses Anemia, unspecified (06/26/21) Type 2 diabetes mellitus without complications (06/26/21) Pathological fracture, right femur, initial encounter for fracture (06/26/21) Chronic kidney disease, stage 3 unspecified (06/26/21) Fracture of unspecified part of neck of right femur, initial encounter for closed fracture (06/26/21) Surgery Performed Operation Date: 06/26/21 14:15 Actual Procedures p Fixation of intertrochanteric fx(Right) - Radha Mares MD Physical Therapy Treatment Note M2 PT-IP Current Condition Start: 06/27/21 13:05 Freq: NEEDED Status: Active Protocol: Document 06/27/21 10:50 [facility] (Rec: 06/27/21 13:18 [facility] [id number]) Physical Therapy Current Condition Current Condition Evaluation Date 06/27/21 Treatment Diagnosis R intertrochanteric hip fx s/p nailing; difficulty in walking Onset Date 06/26/21 M3 PT-IP Subjective Start: 06/27/21 13:05 Freq: NEEDED Status: Active Protocol: Document 06/30/21 10:16 [facility] (Rec: 06/30/21 11:54 [facility] [id number]) Subjective Physical Therapy Visit Type Type Treatment Note Visit Start Time 10:16 Visit Stop Time 10:48 Total Visit Minutes 32 Notes Co-treat w/ OT Number of CORPORATE PLANNER Visits 3 Physical Therapy Visit Comments Patient Comments agreeable to do PT co treat with OT Therapy Pain Assessment Pain When Pain Assessed During Mobility Pain Present Pain Present Pain Reported M4 PT-IP Mobility and Gait Start: 06/27/21 13:05 Freq: NEEDED Status: Active Protocol: Document 06/30/21 10:16 [facility] (Rec: 06/30/21 11:54 [facility] [id number]) PT-Bed Mobility Assessment Supine to Sit Supine to Sit Maximum Assistance,1 Person Assistance,Bedrails Sit to Supine Sit to Supine Maximum Assistance,1 Person Assistance Scooting Scooting to Edge of Bed Maximum Assistance PT-Transfer Assessment Sit to and From Stand Sit to and from Stand Minimal Assistance,2 Person Assistance,Use of Upper Extremities Equipment Transfer Assistive Device Gait Belt,Front Wheeled Walker Orthotic/Prosthetic Devices or Brace: No Transfers Transfer Destination Bed Transfer Technique STS Transfer Ability Level of Assist Maximum Assistance,1 Person Assistance,Use of Upper Extremities Comments Mobility Comments Pt in bed upon arrival and reporting pain. Max A w/ cues for sup<>sit and scooting EOB. Pt able to maintain sitting balance EOB ~5 min while performing oral and hair care. Pt then sit<>stand Min A x2 w / FWW and was able to maintain standing ~1 min w/ FWW but unable to take steps and c/o increased pain. Following 2 min seated resk break, pt sit< >stand Mod A x1 and was able to maintain standing balance w / FWW and cues for 2 minute 50 seconds and was then able to pivot her feet to move towards HOB prior to sitting Mod A w/ cues. Pt Max A for sit<>sup for LE elevation into bed. Pt left in bed w/ all needs in reach and SCDs on. Gait Assessment Comments Gait Comments unable at this time M5 PT-IP Objective Assessments Start: 06/27/21 13:05 Freq: NEEDED Status: Active Protocol: Document 06/27/21 10:50 [facility] (Rec: 06/27/21 13:18 [facility] [id number]) Orientation Orientation/Cognition Level of Alertness Confusional State Orientation Name Safety Awareness Decreased Safety Awareness Memory Description Short Term Impaired Gross Range of Motion Lower Extremity ROM Assessment Within Functional Limits Impairments increase guarding with movement on BLE Strength Lower Extremity Strength Assessment Bilaterally Impaired Comments Strength Comments RLE: 2+/5 LLE: 3+/5 Muscle Tone Muscle Tone WNL Yes M6 PT-IP Treatment Start: 06/27/21 13:05 Freq: NEEDED Status: Active Protocol: Document 06/30/21 10:16 [place] (Rec: 06/30/21 11:54 [facility] [id number]) Physical Therapy Treatment Education Education Provided Weight Bearing Status,Safety M7 PT-IP Assessment and Plan Start: 06/27/21 13:05 Freq: NEEDED Status: Active Protocol: Document 06/30/21 10:16 [facility] (Rec: 06/30/21 11:54 [facility] [id number]) PT Summary Assessment and Plan Potential Rehabilitation Potential Fair Summary Impairments Pain,ROM,Strength,Balance, Coordination,Sensation,Tone, Cognition,Bed Mobility, Transfers,Gait,Activity Tolerance Progress Towards Goals Slow Progress due to Pain,Slow Progress due to Activity Tolerance,Slow Progress - Other Assessment Summary Pt showed improvement w/ mobility and tolerance for activity this AM. Max A x1 for bed mobility, Min A x2 for sit<>Stand, able to pivot feet to move laterally w/ FWW and able to stand 2 min 50 seconds w/ FWW. She is limited in mobility due to pain and weakness and will require SNF to improve strength and activity tolerance. Goals Bed Mobility Goal Minimal Assistance Transfer Goal Minimal Assistance,Front Wheeled Walker Gait Goal Minimal Assistance,Front Wheel Walker Gait Distance 50 Other Goals improve bed mobility, transfers to SBA, ambulation CGA using fWW 100 ft Days to Meet Goals 10 Frequency of Treatment Frequency Of Treatment Twice a Day Treatment Plan Physical Therapy Treatment Plan Bed Mobility Training,Transfer Training,Gait Training, Therapeutic Exercise,Balance Retraining,Post Op Education, Discharge Planning,Hot or Cold Pack,Neuromuscular Re-ed, Coordination Retraining,Manual Therapy Other Recommendations and Next Treatment monitor BP, ther ex; transfers Focus , gait training with FWW Weight Bearing Status Weight Bearing Status Weight Bear as Tolerated Allowed Weight Bearing Amount (enter % RLE WBAT or #) (%) Recommendations To Nursing Amount of Assist Needed 2 Person Assist,PT/OT Assist Only Discharge Recommendations PT Discharge Recommendations SNF Rehab Transportation Needs at Discharge Wheelchair/Cabulance
--- NOTE | 2021-06-30 11:25 | PC.NURSE ---
Late Entry; PRBC infusion complete 06/26 at 1146. [facility] will not allow late entry documentation.
--- NOTE | 2021-06-30 13:31 | PT.IPTN ---
Current Diagnoses Anemia, unspecified (06/26/21) Type 2 diabetes mellitus without complications (06/26/21) Pathological fracture, right femur, initial encounter for fracture (06/26/21) Chronic kidney disease, stage 3 unspecified (06/26/21) Fracture of unspecified part of neck of right femur, initial encounter for closed fracture (06/26/21) Surgery Performed Operation Date: 06/26/21 14:15 Actual Procedures p Fixation of intertrochanteric fx(Right) - Radha Mares MD Physical Therapy Treatment Note M2 PT-IP Current Condition Start: 06/27/21 13:05 Freq: NEEDED Status: Active Protocol: Document 06/27/21 10:50 AB (Rec: 06/27/21 13:18 AB [id number]) Physical Therapy Current Condition Current Condition Evaluation Date 06/27/21 Treatment Diagnosis R intertrochanteric hip fx s/p nailing; difficulty in walking Onset Date 06/26/21 M3 PT-IP Subjective Start: 06/27/21 13:05 Freq: NEEDED Status: Active Protocol: Document 06/30/21 13:11 KS (Rec: 06/30/21 14:07 KS [id number]) Subjective Physical Therapy Visit Type Type Treatment Note Visit Start Time 13:11 Visit Stop Time 13:31 Total Visit Minutes 20 Notes Co-treat w/ OT Number of BANK REPRESENTATIVE Visits 4 Physical Therapy Visit Comments Patient Comments agreeable to do PT co treat with OT Therapy Pain Assessment Pain When Pain Assessed During Mobility Pain Present Pain Present Pain Reported M4 PT-IP Mobility and Gait Start: 06/27/21 13:05 Freq: NEEDED Status: Active Protocol: Document 06/30/21 13:11 KS (Rec: 06/30/21 14:07 KS [id number]) PT-Bed Mobility Assessment Supine to Sit Supine to Sit Maximum Assistance,1 Person Assistance,Bedrails Sit to Supine Sit to Supine Maximum Assistance,1 Person Assistance Scooting Scooting to Edge of Bed Maximum Assistance PT-Transfer Assessment Sit to and From Stand Sit to and from Stand Minimal Assistance,1 Person Assistance Equipment Transfer Assistive Device Gait Belt,Front Wheeled Walker Orthotic/Prosthetic Devices or Brace: No Transfers Transfer Destination Bed Transfer Technique STS Transfer Ability Level of Assist Maximum Assistance,1 Person Assistance,Use of Upper Extremities Comments Mobility Comments Pt in bed upon arrival, Max A for sup<>sit and scooting EOB. Pt performed 2x sit<>stand w/ FWW Min A and was able to maintain standing balance for two minutes each time and take small steps laterally pivoting L foot towards HOB but c/o increased pain w/ weight bearing. Gait Assessment Comments Gait Comments unable at this time M5 PT-IP Objective Assessments Start: 06/27/21 13:05 Freq: NEEDED Status: Active Protocol: Document 06/27/21 10:50 AB (Rec: 06/27/21 13:18 AB [id number]) Orientation Orientation/Cognition Level of Alertness Confusional State Orientation Name Safety Awareness Decreased Safety Awareness Memory Description Short Term Impaired Gross Range of Motion Lower Extremity ROM Assessment Within Functional Limits Impairments increase guarding with movement on BLE Strength Lower Extremity Strength Assessment Bilaterally Impaired Comments Strength Comments RLE: 2+/5 LLE: 3+/5 Muscle Tone Muscle Tone WNL Yes M6 PT-IP Treatment Start: 06/27/21 13:05 Freq: NEEDED Status: Active Protocol: Document 06/30/21 13:11 KS (Rec: 06/30/21 14:07 KS [id number]) Physical Therapy Treatment Education Education Provided Weight Bearing Status,Safety M7 PT-IP Assessment and Plan Start: 06/27/21 13:05 Freq: NEEDED Status: Active Protocol: Document 06/30/21 13:11 KS (Rec: 06/30/21 14:07 KS [id number]) PT Summary Assessment and Plan Potential Rehabilitation Potential Fair Summary Impairments Pain,ROM,Strength,Balance, Coordination,Sensation,Tone, Cognition,Bed Mobility, Transfers,Gait,Activity Tolerance Progress Towards Goals Slow Progress due to Pain,Slow Progress due to Activity Tolerance,Slow Progress - Other Assessment Summary Pt continues to show improvement w/ mobility only needing Min A for sit<>stand this visit, but still requiring Max A for bed mobility and is reporting high level of pain. She is unable to progress ambulation due to pain and weakness at this time and will require SNF to improve functional mobility. Goals Bed Mobility Goal Minimal Assistance Transfer Goal Minimal Assistance,Front Wheeled Walker Gait Goal Minimal Assistance,Front Wheel Walker Gait Distance 50 Other Goals improve bed mobility, transfers to SBA, ambulation CGA using fWW 100 ft Days to Meet Goals 10 Frequency of Treatment Frequency Of Treatment Twice a Day Treatment Plan Physical Therapy Treatment Plan Bed Mobility Training,Transfer Training,Gait Training, Therapeutic Exercise,Balance Retraining,Post Op Education, Discharge Planning,Hot or Cold Pack,Neuromuscular Re-ed, Coordination Retraining,Manual Therapy Other Recommendations and Next Treatment monitor BP, ther ex; transfers Focus , gait training with FWW Weight Bearing Status Weight Bearing Status Weight Bear as Tolerated Allowed Weight Bearing Amount (enter % RLE WBAT or #) (%) Recommendations To Nursing Amount of Assist Needed 2 Person Assist,PT/OT Assist Only Discharge Recommendations PT Discharge Recommendations SNF Rehab Transportation Needs at Discharge Wheelchair/Cabulance
--- NOTE | 2021-06-30 15:10 | PC.NURSE ---
Patient given one percolone for complaints of pain and helpful. She is lying on her left side and comfortable. She denies discomfort at this time. Dressings to left hip cdi. CMS wnl and ppx2. into see patient earlier and he is gone now.
--- NOTE | 2021-06-30 15:22 | CM.DPC ---
DCP SNF Planning: Per MD, pt remains stable and cooperative and awaiting SNF placement. Per [employer], worked with pt twice today and still remains max A for bed mobility and has been able to stand with assist and FWW and take a few steps but very deconditioned and fatigued and needs SNF. ASHLEIGH called [facility], who has accepted pt, twice to confirm they started [facility] auth process and no return call yet. ASHLEIGH called [facility] to determine if they still had auth from insurance from a day ago when they were accepting her but had COVID positive resident. [facility] had cancelled the auth from insurance once they could not accept and now state that they could accept pt again if needed as their COVID situation was isolated and no longer on stop placement. ASHLEIGH met bedside with pt and explained role and updated her on acceptance at [facility] in [place] and she is agreeable, and maybe slightly confused but agreeable to SW also calling her Sig Other Pablo who is her DPOA to provide update. ASHLEIGH called Pablo and updated on above and he confirms he already has a bag with clothing and belongings in pt room for d/c and knows where [facility] is and aware pending insurance auth pt may d/c this or Saturday whenever auth obtained. Plan: ASHLEIGH to follow closely for d/c plan to [facility] vs [facility] pending insurance auth and bed availability. THALIA Oscar
--- NOTE | 2021-06-30 17:38 | PM.PN.1 ---
Subjective Subjective Date Patient Seen: 06/30/21 Time Patient Seen: 17:38 Interval history: 66-year-old woman with a history of CKD [id number], PUD, diastolic CHF, essential HTN, insulin dependent uncontrolled DM type 2 with gastroporesis, chronic anemia, prior CVA, vascular dementia. She is postop from right hip ORIF. Denies complaints today. awaiting on possible placement options at this time as she still requires significant assistance. Exam Vital Signs (past 8 hours): - 06/30/21 12:00 06/30/21 14:06 Temperature 97.7 F Pulse Rate 81 Respiratory Rate 17 Blood Pressure 153/66 H Pulse Oximetry 97 98 Oxygen Delivery Method Room Air Oxygen Flow Rate 0 Narrative Exam Narrative: General:? Alert and NAD sitting in chair Lungs: CTA b/l CV: RRR, no m/r/g. Extremities:? Right hip postop dressing intact, no distal edema Neurological:? Appears at baseline mentation Objective Labs Result Diagrams: 06/28/21 05:01 06/28/21 05:01 Labs: Laboratory Results - last 24 hr 06/26/21 07:50 Crossmatch See Detail [facility] Medical History Acute on chronic diastolic heart failure Anemia Dow's esophagus with esophagitis Bilateral lower extremity edema CKD (chronic kidney disease) stage 3, GFR 30-59 ml/min CVA (cerebral vascular accident) (~2018) Dementia Diabetes Fractures Gallbladder disease GERD (gastroesophageal reflux disease) GERD (gastroesophageal reflux disease) History of urinary incontinence (~2018) Hyperlipidemia Hypertension Overactive bladder Partial blindness Post-menopausal Screening for malignant neoplasm of colon Subdural hematoma Swelling of left lower extremity Upper GI bleed Vision disorder Surgical History Anesthesia History of cholecystectomy History of hip replacement (~2019) History of surgery on arm Tubal ligation status Family History Mother Heart disease Father No problems noted. Sister Cancer Social History marital status: household members: significant other caregiver/support person: Yes Smoking Status: Former smoker alcohol intake: former Assessment & Plan Assessment & Plan narrative: 1. Pathologic right intratrochanteric fracture, ground level fall, acute -status post ORIF 06/26/2019 to -pain well controlled, continue managing with oral meds -Hep-Lock IV -DC'd Justin -PT/OT consult appreciated, hopeful for SNF. 2.? Acute blood loss anemia secondary to hip fracture -received 1 unit PRBC preop -Lasix 40 mg IV x1 on 06/27 somewhat prophylactically based on fluid balance. Now stable. 3. Type 2 diabetes insulin requiring, poor labile control -glucose over 300 on admit, now much improved. -A1c 11.5% -improved control postop, CBG less than 200 -continue patient's Lantus 12 units HS, use sliding scale in hospital 4. Hypertension -holding antihypertensives, amlodipine and lisinopril. BP slightly elevated today will resume amlodipine tomorrow. 5.? CKD -slight bump in creatinine 06/27, then improved. 6. Diastolic heart failure, stable -monitor fluid status -06/28 resumed Lasix 20 mg q.a.m. 7. Dementia -appears at baseline, without evidence acute delirium 8. Urinary tract infection present on admission, resolved -urine culture growing Klebsiella -Cipro 500 mg q.d. x3 days prescribed, renal dosing Dispo: curretly evaluating for SNF options, limited due to COVID outbreaks locally, will continue to work with care management. Time Spent With Patient Critical Care time: I spent a total of [] minutes of critical care time on this patient's care today; this time is exclusive of procedural time. Quality VTE Deep Vein Thrombosis/Pulmonary Embolism Present on Admission: No
--- NOTE | 2021-06-30 18:43 | DIET.PN1 ---
Dietary Progress Note Assessment: Tried to discuss DM care at home with today, but he was not at bedside at the time. Left my card at bedside for any DM questions after discharge. Electronically Signed by: Enma Cristina 06/30/21 18:43 Clinical Dietitian [address] [address]
[2021-06-30] MEDS: ATORVASTATIN 20 MG TABLET 40 MG PO (20:36)
[2021-06-30] MEDS: INSULIN GLARGINE 100 UNIT/ML 3ML PEN 12 UNIT SUBCUT (22:00)
[2021-07-01] VITALS (9 sets, daily range): BP systolic 117–152; BP diastolic 63–72; PULSE 70–86; RESP 16–17; TEMP 36.9–37.2; O2SAT 94–98
[2021-07-01] MEDS: OXYCODONE IR 10 MG TABLET PO ×4 (03:15→18:54)
[2021-07-01] MEDS: PANTOPRAZOLE DR 20 MG TABLET PO (05:29)
--- NOTE | 2021-07-01 05:33 | PC.NURSE ---
Shift note: Patient was alert and confused, obey commands, still complained of post op pain at right hip, PO pain meds given. Turned and reposition as per request. Patient denies any discomfort/pain, not in respiratory distress. Afebrile, vital signs within acceptable limits. IV access reinserted but pulled out by the patient. Post-op dressing at right hip was clean, dry and intact. Right leg warm to touch and has palpable pulses. No active bleeding noted. Will continue to monitor.
[2021-07-01] MEDS: INSULIN LISPRO 100 UNIT/ML 3ML VIAL SUBCUT ×4 (08:21→20:58)
[2021-07-01] MEDS: SUCRALFATE 1 GM TABLET PO ×4 (08:22→20:34)
[2021-07-01] MEDS: AMLODIPINE 5 MG TABLET 10 MG PO (08:23)
[2021-07-01] MEDS: ACETAMINOPHEN 325 MG TABLET 975 MG PO ×3 (08:23→20:32)
[2021-07-01] MEDS: DOCUSATE 100 MG CAPSULE PO ×2 (08:23→20:35)
[2021-07-01] MEDS: CHOLECALCIFEROL (VITAMIN D3) 1,000 UNIT TABLET 1000 UNIT PO ×2 (08:24→20:35)
[2021-07-01] MEDS: FUROSEMIDE 20 MG TABLET PO (08:24)
[2021-07-01] MEDS: CYANOCOBALAMIN (VITAMIN B-12) 500 MCG TABLET 1000 MCG PO (08:24)
[2021-07-01] MEDS: OXYBUTYNIN 5 MG ER TAB PO (08:24)
[2021-07-01] MEDS: ENOXAPARIN 30 MG/0.3 ML SYRINGE SUBCUT (08:28)
--- NOTE | 2021-07-01 10:40 | OT.IP.TRT ---
Current Diagnoses Anemia, unspecified (06/26/21) Type 2 diabetes mellitus without complications (06/26/21) Pathological fracture, right femur, initial encounter for fracture (06/26/21) Chronic kidney disease, stage 3 unspecified (06/26/21) Fracture of unspecified part of neck of right femur, initial encounter for closed fracture (06/26/21) Surgery Performed Operation Date: 06/26/21 14:15 Actual Procedures p Fixation of intertrochanteric fx(Right) - Radha Mares MD Occupational Therapy Treatment Note M2 OT-IP Current Condition Start: 06/28/21 12:15 Freq: Status: Active Protocol: Document 06/28/21 09:30 [facility] (Rec: 06/28/21 12:30 [facility] [id number]) Occupational Therapy Current Condition Current Condition Evaluation Date 06/28/21 Treatment Diagnosis Right intertrochanteric hip fx s/p nailing Diagnosis Onset Date 06/26/21 Weight Bearing Status Weight Bearing Status Weight Bear as Tolerated M3 OT- IP Subjective and Pain Start: 06/28/21 12:15 Freq: Status: Active Protocol: Document 07/01/21 10:42 [facility] (Rec: 07/01/21 10:50 [facility] [id number]) OT- Subjective Occupational Therapy Visit Type Type Treatment Note Visit Start Time 10:17 Visit Stop Time 10:40 Total Visit Minutes 23 Occupational Therapy Visit Comments Patient Comments Pt agreed to sit up in the recliner, SURVEY RESEARCHER present for the session. Patient/Caregiver Goals To go home, but realizes would be best to go to skilled rehab prior to going home. OT Pain Assessment Pain When Pain Assessed During Mobility Pain Present Pain Present Pain Reported M4 OT- IP ADL's Start: 06/28/21 12:15 Freq: Status: Active Protocol: Document 07/01/21 10:42 [facility] (Rec: 07/01/21 10:50 [facility] [id number]) OT ADL-Grooming Comments OT Grooming Comments Pt states did earlier. OT ADL-Dressing General Eval Lower Body Dressing Ability Maximum Assistance Areas Needing Assistance Underpants/Brief,Socks Comments OT Dressing Comments Practice use of parachute cushion installer , assisted pt to get terrazas into the brief and educated pt to use parachute cushion installer to assist to get brief over her feet. Pt also needing assist to help pull the brief over her hips. OT ADL-Toileting Comments OT Toileting Comments Terrazas in place. OT ADL-Bathing Comments OT Bathing Comments sponge bathing more appropriate at this time M6 OT- IP Functional Cognition Start: 06/28/21 12:15 Freq: Status: Active Protocol: Document 07/01/21 10:42 [facility] (Rec: 07/01/21 10:50 [facility] [id number]) Cognitive Factors Limiting Selfcare Function Cognitive Comments Cognitive Assessment Comments Pt able to follow commands , pleasant and continues to needs encouragement to participate, but able to agree . M7 OT- IP Mobility and Balance Start: 06/28/21 12:15 Freq: Status: Active Protocol: Document 07/01/21 10:42 [facility] (Rec: 07/01/21 10:50 [facility] [id number]) OT- Bed Mobility Assessment Supine to Sit Supine to Sit Assist Maximum Assistance,1 Person Assistance Sit to Supine Sit to Supine Assist Maximum Assistance,1 Person Assistance OT-Transfer Assessment Sit to and From Stand Sit to and from Stand Minimal Assistance,2 Person Assistance Transfers Transfer Ability Moderate Assistance,Maximum Assistance,2 Person Assistance Comments Mobility Comments CRISTIAN x2 to stand to FWW and MODA X 2 to take small steps for the transfer to the recliner. Assist for balance, at times assist to more her feet, and to help guide the FWW. Pt wanting to get back to bed and able to transfer back MOD/MAXA X 2. At this time OT /PT transfer or use of val would be best. OT- Gait Assessment Comments Gait Ability Comments Pt able to transfer twice today. OT- Balance Assessment Sitting Balance and Reactions Static Sitting Balance Ability Good Dynamic Sitting Balance Ability Fair Standing Balance and Reactions Static Standing Balance Ability Poor Dynamic Standing Balance Ability Poor M9 OT- IP Assessment and Plan Start: 06/28/21 12:15 Freq: Status: Active Protocol: Document 07/01/21 10:42 [facility] (Rec: 07/01/21 10:50 [facility] [id number]) OT Summary Assessment and Plan Potential Rehabilitation Potential Good Analytic Complexity at Evaluation Moderate Summary OT Impairments Pain,Range of Motion,Balance, Functional Cognition, Functional Mobility,Grooming, Dressing,Toileting,Bathing, Toilet Transfers,Shower Transfers,Activity Tolerance Progress Towards Goals Progressing Toward Goals,Slow Progress due to Pain,Slow Progress due to Activity Tolerance,Slow Progress due to Cognition Assessment Summary Pt able to transfer twice today. Pt would highly benefit from skilled rehab prior to going home. Pt is cooperative but needs lots of encouragement, cues, and reassurance. Goals Grooming Goal Standby Assistance Dressing Goal Minimal Assistance Toileting Goal Minimal Assistance Bathing Goal Minimal Assistance Toilet Transfer Goal Standby Assistance Shower Transfer Goal Contact Guard Assistance Days to Meet Goals 30 Frequency of Treatment Frequency Of Treatment Once a Day Treatment Plan OT Treatment Plan ADL Training,Functional Cognition Training,Functional Mobility,Patient/Family Education,Discharge Planning Other Treatment Recommendations and Next Transfer to [facility] with MAX AX1 Treatment Focus Discharge Recommendations OT Discharge Recommendations SNF Rehab Transportation Needs at Discharge Wheelchair/Cabulance
--- NOTE | 2021-07-01 10:40 | PM.PNPO.1 ---
Subjective Subjective Date Patient Seen: 07/01/21 Time Patient Seen: 10:40 Interval history: Reports pain with therapy otherwise controlled. Denies fever or chills. No nausea or vomiting. Exam Vital Signs (past 8 hours): - 07/01/21 04:00 07/01/21 08:00 07/01/21 08:42 Temperature 98.7 F 99 F Pulse Rate 75 77 Respiratory Rate 16 16 Blood Pressure 141/72 H 152/72 H Pulse Oximetry 96 96 98 07/01/21 09:23 Temperature Pulse Rate Respiratory Rate Blood Pressure Pulse Oximetry 98 Oxygen Delivery Method Room Air Oxygen Flow Rate 0 Narrative Exam Narrative: 66-year-old female resting comfortably in bed in no apparent distress. Dressing is clean, dry and intact. Motor functions intact bilateral lower extremities. Sensation grossly intact to light touch bilateral lower extremities. Objective Labs Result Diagrams: 06/28/21 05:01 06/28/21 05:01 Labs: Laboratory Results - last 24 hr 06/26/21 07:50 Crossmatch See Detail [facility] Medical History Acute on chronic diastolic heart failure Anemia Dow's esophagus with esophagitis Bilateral lower extremity edema CKD (chronic kidney disease) stage 3, GFR 30-59 ml/min CVA (cerebral vascular accident) (~2017) Dementia Diabetes Fractures Gallbladder disease GERD (gastroesophageal reflux disease) GERD (gastroesophageal reflux disease) History of urinary incontinence (~2017) Hyperlipidemia Hypertension Overactive bladder Partial blindness Post-menopausal Screening for malignant neoplasm of colon Subdural hematoma Swelling of left lower extremity Upper GI bleed Vision disorder Surgical History Anesthesia History of cholecystectomy History of hip replacement (~2019) History of surgery on arm Tubal ligation status Family History Mother Heart disease Father No problems noted. Sister Cancer Social History marital status: household members: significant other caregiver/support person: Yes Smoking Status: Former smoker alcohol intake: former Assessment & Plan Post-op Postoperative Procedures: Procedures Operation Date: 06/26/21 14:15 Actual Procedure Side Surgeon p Fixation of intertrochanteric fx Right Radha Mares MD Postoperative day: 5 Postoperative status narrative: Status Postoperative plan narrative: status post fixation right intertrochanteric hip fracture with cephalomedullary nail June 26, 2021 weight-bearing as tolerated right lower extremity PT, OT SCDs and Lovenox for DVT prophylaxis, recommend Lovenox, renally dosed, 4 weeks for hip fracture, if mobilizing well may consider aspirin 81 mg b.i.d. disposition likely shelter facility when stable per hospitalist follow-up with [facility] in 2 weeks for wound check, staple removal, repeat x-ray Quality VTE Deep Vein Thrombosis/Pulmonary Embolism Present on Admission: No
--- NOTE | 2021-07-01 10:48 | PT.IPTN ---
Current Diagnoses Anemia, unspecified (06/26/21) Type 2 diabetes mellitus without complications (06/26/21) Pathological fracture, right femur, initial encounter for fracture (06/26/21) Chronic kidney disease, stage 3 unspecified (06/26/21) Fracture of unspecified part of neck of right femur, initial encounter for closed fracture (06/26/21) Surgery Performed Operation Date: 06/26/21 14:15 Actual Procedures p Fixation of intertrochanteric fx(Right) - Radha Mares MD Physical Therapy Treatment Note M2 PT-IP Current Condition Start: 06/27/21 13:05 Freq: NEEDED Status: Active Protocol: Document 06/27/21 10:50 AB (Rec: 06/27/21 13:18 AB [id number]) Physical Therapy Current Condition Current Condition Evaluation Date 06/27/21 Treatment Diagnosis R intertrochanteric hip fx s/p nailing; difficulty in walking Onset Date 06/26/21 M3 PT-IP Subjective Start: 06/27/21 13:05 Freq: NEEDED Status: Active Protocol: Document 07/01/21 10:14 KS (Rec: 07/01/21 11:55 KS [id number]) Subjective Physical Therapy Visit Type Type Treatment Note Visit Start Time 10:14 Visit Stop Time 10:48 Total Visit Minutes 34 Notes Co-treat w/ OT Number of GROOMING SALON MANAGER Visits 5 Physical Therapy Visit Comments Patient Comments agreeable to do PT co treat with OT Therapy Pain Assessment Pain When Pain Assessed During Mobility Pain Present Pain Present Pain Reported M4 PT-IP Mobility and Gait Start: 06/27/21 13:05 Freq: NEEDED Status: Active Protocol: Document 07/01/21 10:14 KS (Rec: 07/01/21 11:55 KS [id number]) PT-Bed Mobility Assessment Supine to Sit Supine to Sit Maximum Assistance,1 Person Assistance,Bedrails Sit to Supine Sit to Supine Maximum Assistance,1 Person Assistance Scooting Scooting to Edge of Bed Maximum Assistance PT-Transfer Assessment Sit to and From Stand Sit to and from Stand Minimal Assistance,1 Person Assistance Equipment Transfer Assistive Device Gait Belt,Front Wheeled Walker Orthotic/Prosthetic Devices or Brace: No Transfers Transfer Destination Bed,Chair Transfer Technique Pt ambulated w/ FWW Transfer Ability Level of Assist Moderate Assistance,Maximum Assistance,2 Person Assistance ,Use of Upper Extremities Comments Mobility Comments Pt in bed upon arrival and Max A for sup<>sit and scooting EOB. Pt able to sit<>stand Min A w/ FWW and maintain standing balance for over a minute prior to seated rest break. Pt performed additional sit<>stand Min A and ambulated ~5 ft to chair w/ FWW Mod/Max x2 w/ verbal and tactile cues including assisting pt w/ advancing LE to take steps and step by step sequencing commands. Pt uncomfortable in chair and requested to get back in bed and did so w/ same assist level and cues needed. Max A for sit<>sup. Pt left in bed w / SCDs on and all needs in reach. Gait Assessment Gait Gait Assistance Required: Moderate Assistance,Maximum Assistance,2 Person Assist Distance (Feet) 5 Able to Maintain Weight Bearing Status Yes During Gait Assistive Devices Assistive Device Gait Belt,Front Wheeled Walker Gait Deviations General Gait Pattern Antalgic,Ataxic,Decreased Stride Length,Decreased Feet Clearance,Flexed Trunk Factors Limiting Gait Function Factors Limiting Gait Function Decreased Activity Tolerance, Decreased Strength,Difficulty Following Directions, Incoordination,Pain,Poor Balance,Poor Safety Awareness Comments Gait Comments Pt ambulated 5 ft x2 from bed to chair and back to bed w/ FWW Mod/ Max A x2 w/ step by step commands and verbal and tactile cues. M5 PT-IP Objective Assessments Start: 06/27/21 13:05 Freq: NEEDED Status: Active Protocol: Document 06/27/21 10:50 AB (Rec: 06/27/21 13:18 AB [id number]) Orientation Orientation/Cognition Level of Alertness Confusional State Orientation Name Safety Awareness Decreased Safety Awareness Memory Description Short Term Impaired Gross Range of Motion Lower Extremity ROM Assessment Within Functional Limits Impairments increase guarding with movement on BLE Strength Lower Extremity Strength Assessment Bilaterally Impaired Comments Strength Comments RLE: 2+/5 LLE: 3+/5 Muscle Tone Muscle Tone WNL Yes M6 PT-IP Treatment Start: 06/27/21 13:05 Freq: NEEDED Status: Active Protocol: Document 07/01/21 10:14 KS (Rec: 07/01/21 11:55 KS [id number]) Physical Therapy Treatment Education Education Provided Weight Bearing Status,Safety M7 PT-IP Assessment and Plan Start: 06/27/21 13:05 Freq: NEEDED Status: Active Protocol: Document 07/01/21 10:14 KS (Rec: 07/01/21 11:55 KS [id number]) PT Summary Assessment and Plan Potential Rehabilitation Potential Fair Summary Impairments Pain,ROM,Strength,Balance, Coordination,Sensation,Tone, Cognition,Bed Mobility, Transfers,Gait,Activity Tolerance Progress Towards Goals Slow Progress due to Pain,Slow Progress due to Activity Tolerance,Slow Progress - Other Assessment Summary Pt showing improvement w/ mobility today, still requiring Max A for bed mobility, but sit<>Stand Min A and able to ambulate 5 ft to and from bed to chair w/ FWW Mod/Max A x2. She required step by step commands and verbal and tactile cues for LE advancement. Pt will require SNF to improve strength and functional mobility. Goals Bed Mobility Goal Minimal Assistance Transfer Goal Minimal Assistance,Front Wheeled Walker Gait Goal Minimal Assistance,Front Wheel Walker Gait Distance 50 Other Goals improve bed mobility, transfers to SBA, ambulation CGA using fWW 100 ft Days to Meet Goals 10 Frequency of Treatment Frequency Of Treatment Twice a Day Treatment Plan Physical Therapy Treatment Plan Bed Mobility Training,Transfer Training,Gait Training, Therapeutic Exercise,Balance Retraining,Post Op Education, Discharge Planning,Hot or Cold Pack,Neuromuscular Re-ed, Coordination Retraining,Manual Therapy Other Recommendations and Next Treatment monitor BP, ther ex; transfers Focus , gait training with FWW Weight Bearing Status Weight Bearing Status Weight Bear as Tolerated Allowed Weight Bearing Amount (enter % RLE WBAT or #) (%) Recommendations To Nursing Amount of Assist Needed PT/OT Assist Only,Mechanical Lift Discharge Recommendations PT Discharge Recommendations SNF Rehab Transportation Needs at Discharge Wheelchair/Cabulance
--- NOTE | 2021-07-01 12:07 | PM.PN.1 ---
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 She is postop from right hip ORIF. Denies complaints today. awaiting on possible placement options at this time as she still requires significant assistance. Exam Vital Signs (past 8 hours): - 07/01/21 08:00 07/01/21 08:42 07/01/21 09:23 Temperature 99 F Pulse Rate 77 Respiratory Rate 16 Blood Pressure 152/72 H Pulse Oximetry 96 98 98 Oxygen Delivery Method Room Air Oxygen Flow Rate 0 Narrative Exam Narrative: General:? Alert and NAD sitting in chair HEENT:MMM, slight puffiness around eyes bilaterally. Lungs: CTA b/l CV: RRR, no m/r/g. Extremities:? Right hip postop dressing c/d/i, no distal edema Neurological:? Appears at baseline mentation, confused. No focal deficits. Objective Labs Result Diagrams: 06/28/21 05:01 06/28/21 05:01 [facility] Medical History Acute on chronic diastolic heart failure Anemia Dow's esophagus with esophagitis Bilateral lower extremity edema CKD (chronic kidney disease) stage 3, GFR 30-59 ml/min CVA (cerebral vascular accident) (~2018) Dementia Diabetes Fractures Gallbladder disease GERD (gastroesophageal reflux disease) GERD (gastroesophageal reflux disease) History of urinary incontinence (~2017) Hyperlipidemia Hypertension Overactive bladder Partial blindness Post-menopausal Screening for malignant neoplasm of colon Subdural hematoma Swelling of left lower extremity Upper GI bleed Vision disorder Surgical History Anesthesia History of cholecystectomy History of hip replacement (~2019) History of surgery on arm Tubal ligation status Family History Mother Heart disease Father No problems noted. Sister Cancer Social History marital status: household members: significant other caregiver/support person: Yes Smoking Status: Former smoker alcohol intake: former Assessment & Plan Time Spent With Patient Critical Care time: I spent a total of [] minutes of critical care time on this patient's care today; this time is exclusive of procedural time. Quality VTE Deep Vein Thrombosis/Pulmonary Embolism Present on Admission: No
--- NOTE | 2021-07-01 13:30 | PT-IP ANOTE ---
Attempted to see pt at 13:30, pt refused therapy due to high level of fatigue following treatment this AM.
--- NOTE | 2021-07-01 14:02 | CM.DPC ---
DCP Cont: Per Ortho and Hospitalist, pt remains stable for d/c to SNF. Per PT/OT, pt making some progress but still max1PA and needs SNF but able to participate. Per RN, pt has some minor confusion but redirectable and no behaviors or issues. ASHLEIGH called [facility] again (left multiple msgs yesterday with no return call) and spoke to Evelyn and inquired if they had started auth yet as was our understanding. Evelyn states she meant or attempted to call ASHLEIGH back yesterday to update they did not start auth but she is unsure what happened and wasn't able to leave a msg with ASHLEIGH. Evelyn states they have concerns about pt behaviors and would need to re-review on Saturday and have not started auth. ASHLEIGH states pt has not had behaviors and stable for d/c. Evelyn requests SW call back Saturday. ASHLEIGH called [facility] and left msg as she had stated yesterday that their COVID+ pt was an isolated event and they could likely accept pt if SNF still needed and insurance auth had been cancelled when they couldn't accept with their COVID pt at their facility. ASHLEIGH requested [facility] review updated clinicals just faxed and start on auth as pt is stable for d/c. ASHLEIGH also faxed updated clinicals to [facility] requesting review in case [facility] does not have bed availability. ASHLEIGH called [facility] [phone] to determine if pt's initial SNF auth is in place still or needs to be re-submitted. Provided updated information via phone to [facility]. ASHLEIGH faxed requested clinicals to [facility] to [phone] with reference #[id number] as SNF auth is pending and they will review and then provide auth number. Plan: ASHLEIGH to follow closely for w/e [facility] to provide SNF auth and return call from [facility] and [facility] to determine which can accept. PAS[facility] and COVID vax copy completed. Pt may need updated COVID swab closer to d/c. THALIA Oscar
[2021-07-01] MEDS: OXYCODONE IR 5 MG TABLET PO (20:32)
[2021-07-01] MEDS: ATORVASTATIN 20 MG TABLET 40 MG PO (20:34)
[2021-07-01] MEDS: INSULIN GLARGINE 100 UNIT/ML 3ML PEN 12 UNIT SUBCUT (20:57)
[2021-07-02] VITALS (15 sets, daily range): BP systolic 125–141; BP diastolic 61–80; PULSE 75–79; RESP 16–20; TEMP 36.7–37.3; O2SAT 92–97
--- NOTE | 2021-07-02 04:53 | PC.NURSE ---
Shift note: Patient constantly complained of right hip post op pain, due pain meds given, repositioned to achieve comfort with relief. Post op dressing at right hip maintained clean, dry and intact. Patient was afebrile, vital signs within acceptable limits, no signs of cardiorespiratory distress noted. Anderson cath in placed with adequate urine output. Will continue to monitor.
[2021-07-02] MEDS: PANTOPRAZOLE DR 20 MG TABLET PO (05:47)
--- NOTE | 2021-07-02 06:05 | PC.NURSE ---
IV access reinserted to right forearm but accidentally pulled out by the patient. Patient refused IV reinsertion this time.
[2021-07-02] MEDS: AMLODIPINE 5 MG TABLET 10 MG PO (09:08)
[2021-07-02] MEDS: OXYCODONE IR 5 MG TABLET PO ×4 (09:08→23:40)
[2021-07-02] MEDS: ACETAMINOPHEN 325 MG TABLET 975 MG PO ×3 (09:08→21:09)
[2021-07-02] MEDS: CHOLECALCIFEROL (VITAMIN D3) 1,000 UNIT TABLET 1000 UNIT PO ×2 (09:09→21:09)
[2021-07-02] MEDS: FUROSEMIDE 20 MG TABLET PO (09:09)
[2021-07-02] MEDS: ENOXAPARIN 30 MG/0.3 ML SYRINGE SUBCUT (09:09)
[2021-07-02] MEDS: CYANOCOBALAMIN (VITAMIN B-12) 500 MCG TABLET 1000 MCG PO (09:09)
[2021-07-02] MEDS: DOCUSATE 100 MG CAPSULE PO ×2 (09:09→21:09)
[2021-07-02] MEDS: OXYBUTYNIN 5 MG ER TAB PO (09:09)
[2021-07-02] MEDS: SUCRALFATE 1 GM TABLET PO ×4 (09:09→21:09)
[2021-07-02] MEDS: SODIUM CHLORIDE 0.9% FLUSH 10 ML IV ×2 (09:10→21:10)
--- NOTE | 2021-07-02 10:39 | PT-IP ANOTE ---
Attempted to see pt at 10:39, pt refused PT this AM due to increased pain.
--- NOTE | 2021-07-02 11:22 | P.PN_ITS ---
Subjective Subjective Date Patient Seen: 07/02/21 Time Patient Seen: 10:30 Interval history: She continues to note moderate right hip pain. She is having difficulty mobilizing out of bed to a chair. Exam Vital Signs (past 8 hours): - 07/02/21 04:00 07/02/21 07:30 07/02/21 08:00 Temperature 98.1 F 98.5 F Pulse Rate 78 78 Respiratory Rate 17 16 Blood Pressure 137/72 125/61 Pulse Oximetry 96 94 96 07/02/21 08:15 07/02/21 08:20 07/02/21 08:57 Temperature Pulse Rate Respiratory Rate Blood Pressure Pulse Oximetry 88 L 92 95 07/02/21 09:30 07/02/21 11:17 Temperature Pulse Rate Respiratory Rate Blood Pressure Pulse Oximetry 92 95 Oxygen Delivery Method Room Air Oxygen Flow Rate 1.5 Narrative Exam Narrative: She is resting comfortably in bed she has minimal pain with gentle range of motion in hip, calfs are soft, dressings intact and dry Objective Labs Result Diagrams: 06/28/21 05:01 06/28/21 05:01 [facility] Medical History Acute on chronic diastolic heart failure Anemia Dow's esophagus with esophagitis Bilateral lower extremity edema CKD (chronic kidney disease) stage 3, GFR 30-59 ml/min CVA (cerebral vascular accident) (~2018) Dementia Diabetes Fractures Gallbladder disease GERD (gastroesophageal reflux disease) GERD (gastroesophageal reflux disease) History of urinary incontinence (~2017) Hyperlipidemia Hypertension Overactive bladder Partial blindness Post-menopausal Screening for malignant neoplasm of colon Subdural hematoma Swelling of left lower extremity Upper GI bleed Vision disorder Surgical History Anesthesia History of cholecystectomy History of hip replacement (~2019) History of surgery on arm Tubal ligation status Family History Mother Heart disease Father No problems noted. Sister Cancer Social History marital status: household members: significant other caregiver/support person: Yes Smoking Status: Former smoker alcohol intake: former Assessment & Plan Post-op Postoperative Procedures: Procedures Operation Date: 06/26/21 14:15 Actual Procedure Side Surgeon p Fixation of intertrochanteric fx Right Radha Mares MD Postoperative day: 6 Postoperative status narrative: She is stable postoperatively. She can be weight-bearing as tolerated on the right lower extremity. We will continue to work on mobilizing her out of bed. Postoperative plan: routine post-op care Postoperative plan narrative: Discharge to rehab when bed available. Time Spent With Patient Time with patient: less than 15 minutes Quality VTE Deep Vein Thrombosis/Pulmonary Embolism Present on Admission: No
--- NOTE | 2021-07-02 12:10 | PT-IP ANOTE ---
Pt refusing therapy this PM due to present and trying to set up video call for pt and her father who is on hospice and not doing well. May attempt later this PM if available.
[2021-07-02] MEDS: INSULIN LISPRO 100 UNIT/ML 3ML VIAL SUBCUT ×3 (12:34→21:11)
--- NOTE | 2021-07-02 13:11 | CM.DANOTE ---
DCP/continued: Reviewed chart. Patient medically stable for d/c to SNF. Per notes patient did not go to planned SNF due to COVID outbreak. COMPLAINT OPERATOR spoke with Angelica at [facility] today. She reports that they can now accept tomorrow. Angelica reports that she has received authorization. Transport set up for 1:30pm. COMPLAINT OPERATOR updated provider and COVID test ordered. CM team to confirm with [facility] in AM just in case anything has changed. Spouse given brochure but does not have the time. Left vm with [facility] indicating that the bed is no longer needed. P: [facility] tomorrow 2-14, oyster picker scheduled for 1:30pm but needs to be confirmed. Provider aware and will write final orders in the AM. LY
[2021-07-02] MEDS: BISACODYL 5 MG TABLET 10 MG PO (14:23)
--- NOTE | 2021-07-02 14:27 | PM.PN.1 ---
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 She is postop from right hip ORIF. Denies complaints today other than continued pain. awaiting on possible placement options at this time as she still requires significant assistance. Planned for transfer to SNF tomorrow. Exam Vital Signs (past 8 hours): - 07/02/21 07:30 07/02/21 08:00 07/02/21 08:15 Temperature 98.5 F Pulse Rate 78 Respiratory Rate 16 Blood Pressure 125/61 Pulse Oximetry 94 96 92 07/02/21 08:20 07/02/21 08:57 07/02/21 09:30 Temperature Pulse Rate Respiratory Rate Blood Pressure Pulse Oximetry 92 95 92 07/02/21 11:17 07/02/21 11:35 07/02/21 13:00 Temperature 98.5 F Pulse Rate 78 Respiratory Rate 16 Blood Pressure 137/67 Pulse Oximetry 95 97 97 Oxygen Delivery Method Room Air Oxygen Flow Rate 0 Narrative Exam Narrative: General:? Alert and NAD sitting in chair HEENT:MMM, slight puffiness around eyes bilaterally. Lungs: CTA b/l CV: RRR, no m/r/g. Extremities:? Right hip postop dressing c/d/i, no distal edema Neurological:? Appears at baseline mentation, confused. No focal deficits. Objective Labs Result Diagrams: 06/28/21 05:01 06/28/21 05:01 ON LICENSE OF [facility] Medical History Acute on chronic diastolic heart failure Anemia Dow's esophagus with esophagitis Bilateral lower extremity edema CKD (chronic kidney disease) stage 3, GFR 30-59 ml/min CVA (cerebral vascular accident) (~2018) Dementia Diabetes Fractures Gallbladder disease GERD (gastroesophageal reflux disease) GERD (gastroesophageal reflux disease) History of urinary incontinence (~2018) Hyperlipidemia Hypertension Overactive bladder Partial blindness Post-menopausal Screening for malignant neoplasm of colon Subdural hematoma Swelling of left lower extremity Upper GI bleed Vision disorder Surgical History Anesthesia History of cholecystectomy History of hip replacement (~2019) History of surgery on arm Tubal ligation status Family History Mother Heart disease Father No problems noted. Sister Cancer Social History marital status: household members: significant other caregiver/support person: Yes Smoking Status: Former smoker alcohol intake: former Assessment & Plan Assessment & Plan narrative: 1. Pathologic right intratrochanteric fracture, ground level fall, acute -status post ORIF 06/26/2019 -pain controlled, continue managing with oral meds. Added muscle relaxant today. -Hep-Lock IV -DC'd Anderson -PT/OT consult appreciated, hopeful for SNF. 2.? Acute blood loss anemia secondary to hip fracture -received 1 unit PRBC preop -Lasix 40 mg IV x1 on 06/27 somewhat prophylactically based on fluid balance. Now stable. 3. Type 2 diabetes insulin requiring, poor labile control -glucose over 300 on admit, now much improved. -A1c 11.5% -improved control postop, CBG less than 200 -continue patient's Lantus 12 units HS, use sliding scale in hospital 4. Hypertension -holding antihypertensives, amlodipine and lisinopril. Resumed amlodipine and can resume home lisinopril tomorrow. 5.? CKD -slight bump in creatinine 06/27, then improved. 6. Diastolic heart failure, stable -monitor fluid status -06/28 resumed Lasix 20 mg q.a.m. 7. Dementia -appears at baseline, without evidence acute delirium 8. Urinary tract infection present on admission, resolved -urine culture growing Klebsiella -Cipro 500 mg q.d. x3 days prescribed, renal dosing. Dispo: plan for SNF tomorrow. Time Spent With Patient Critical Care time: I spent a total of [] minutes of critical care time on this patient's care today; this time is exclusive of procedural time. Quality VTE Deep Vein Thrombosis/Pulmonary Embolism Present on Admission: No
[2021-07-02 16:00] LABS: COVID19 - ADMIT (NP swab/PCR) Negative (Negative)
[2021-07-02] MEDS: ATORVASTATIN 20 MG TABLET 40 MG PO (21:09)
[2021-07-02] MEDS: INSULIN GLARGINE 100 UNIT/ML 3ML PEN 12 UNIT SUBCUT (21:11)
[2021-07-03] VITALS (8 sets, daily range): BP systolic 126–137; BP diastolic 64–74; PULSE 76–84; RESP 14–17; TEMP 35.9–37.1; O2SAT 94–97
[2021-07-03] MEDS: methocarbamoL 500 MG TABLET PO (00:56)
--- NOTE | 2021-07-03 01:14 | PC.NURSE ---
Patient voiding well, pain is controlled with PO medications, and is able to communicate needs and thoughts clearly.
[2021-07-03] MEDS: PANTOPRAZOLE DR 20 MG TABLET PO (06:28)
[2021-07-03] MEDS: OXYCODONE IR 5 MG TABLET PO (08:02)
[2021-07-03] MEDS: ENOXAPARIN 30 MG/0.3 ML SYRINGE SUBCUT (09:35)
[2021-07-03] MEDS: lisinopriL 20 MG TABLET PO (09:36)
[2021-07-03] MEDS: CHOLECALCIFEROL (VITAMIN D3) 1,000 UNIT TABLET 1000 UNIT PO (09:36)
[2021-07-03] MEDS: SUCRALFATE 1 GM TABLET PO ×2 (09:36→13:11)
[2021-07-03] MEDS: DOCUSATE 100 MG CAPSULE PO (09:36)
[2021-07-03] MEDS: ACETAMINOPHEN 325 MG TABLET 975 MG PO (09:36)
[2021-07-03] MEDS: BISACODYL 10 MG SUPP PR (09:36)
[2021-07-03] MEDS: SENNOSIDES 8.6 MG TABLET PO (09:36)
[2021-07-03] MEDS: AMLODIPINE 5 MG TABLET 10 MG PO (09:36)
[2021-07-03] MEDS: FUROSEMIDE 20 MG TABLET PO (09:36)
[2021-07-03] MEDS: polyethylene glycoL 3350 17 GM POWD.PACK PO (09:36)
--- NOTE | 2021-07-03 10:11 | PT-IP ANOTE ---
Attempted to see pt at 10:11, pt refused therapy stating she does not want to move out of bed prior to upcoming d/c to SNF.
[2021-07-03] MEDS: CYANOCOBALAMIN (VITAMIN B-12) 500 MCG TABLET 1000 MCG PO (10:15)
[2021-07-03] MEDS: OXYBUTYNIN 5 MG ER TAB PO (10:15)
--- NOTE | 2021-07-03 10:20 | P.DS_ITS ---
History of Present Illness History of Present Illness Chief complaint: GLF Narrative: Per Marnie Douglas: Kristine Moon is a 66-year-old woman with a history of CKD [id number], PUD, diastolic CHF, essential HTN, insulin dependent uncontrolled DMtype2 with gastroporesis, chronic anemia, prior CVA, vascular dementia, who suffered a fall yesterday evening where she fell backward and hit the back of her head without loss of consciousness.? Presenting to the ED complaining of right hip, flank, and posterior rib pain.? Patient denies chest pain, shortness of breath, passing out, palpitations or any other concerning symptoms prior to her fall.? She states that she has not recently had fevers, cough, increase in lower extremity edema, palpitations, vomiting, diarrhea, abdominal pain. Upon admit exam patient is resting comfortably in bed patient is mildly hypertensive temp 98?, BP 182/86, HR 92, R 18, O2 saturation 99% on room air.? Patient has a hemoglobin 9.3, hematocrit 28.8 reflective of chronic anemia, mild hyponatremia sodium 132, bicarb 19, BUN 26, creatinine 1.76, GFR 29 these are reflective of patient's baseline CKD stage IIIB.? Patient's hyperglycemic glucose 333.? Patient's urinalysis is positive culture pending.? Patient's chest x-ray is negative for acute cardiopulmonary processes, patient's CT of chest abdomen pelvis is negative for any traumatic abnormalities, patient's head CT is negative for any intracranial acute processes, patient's C-spine is negative for any traumatic abnormalities.? Patient is admitted for right introchanter fracture, Dr. Vick orthopedics has been consulted and is planning to take the patient to the OR later this morning. Discharge Providers Provider Date of admission: 06/26/21 02:24 Discharge Date: 07/03/21 Primary care physician: GARY Page Consults: 06/26/21 02:32 Consult to Physician Routine Comment: Consulting Provider: Radha Mares Reason for consultation: Right introchanter fracture Has provider been notified: Yes 06/26/21 16:34 Consult to Discharge Planning Routine Comment: Consult to Physical Therapy Evaluate & Treat Comment: wbat Physician Instructions: Evaluate and Treat Consult to Respiratory Therapy Evaluate & Treat Comment: Physician Instructions: Evaluate and treat 06/26/21 17:51 Consult to Dietitian, Adult Routine Comment: Reason For Exam: Ty Scale 06/27/21 14:48 Consult to Occupational Therapy Evaluate & Treat Comment: Physician Instructions: Evaluate and treat 07/02/21 10:45 Consult to Respiratory Therapy Evaluate & Treat Comment: Physician Instructions: Evaluate and treat Discharge provider: Hermelindo Churchill MD Summary Hospital Course Discharge Diagnosis: 1. Pathologic right intratrochanteric fracture 2. Acute blood loss anemia 3. type 2 Diabetes on insulin 4. Hypertension 5. CKD stage 3 6. Diastolic heart failure 7. Dementia 8. UTI Hospital Course: Ms. Moon was admitted for a right hip fracture. She underwent ORIF on 06/26. She did have blood loss anemia and needed a unit of PRBC. She worked with PT and was recommended to discharge to SNF. She was recommended to be on lovenox for 30 days. She did have a UTI in the hospital and received 3 days of antibiotics and this resolved. She does have dementia and she is improved with family at bedside. The rest of her medical issues were stable in the hospital. Exam Vital Signs (past 8 hours): - 07/03/21 04:00 07/03/21 04:49 07/03/21 05:00 Temperature 98.7 F Pulse Rate 84 80 Respiratory Rate 17 16 Blood Pressure 134/64 Pulse Oximetry 94 97 96 07/03/21 08:00 07/03/21 08:14 Temperature 97 F L Pulse Rate 80 Respiratory Rate 14 Blood Pressure 126/65 Pulse Oximetry 97 97 Oxygen Delivery Method Room Air Oxygen Flow Rate 0 Objective Labs Result Diagrams: 06/28/21 05:01 06/28/21 05:01 Labs: Laboratory Results - last 24 hr 07/02/21 14:30 SARS-CoV-2 (PCR) Negative [facility] Medical History Acute on chronic diastolic heart failure Anemia Dow's esophagus with esophagitis Bilateral lower extremity edema CKD (chronic kidney disease) stage 3, GFR 30-59 ml/min CVA (cerebral vascular accident) (~2018) Dementia Diabetes Fractures Gallbladder disease GERD (gastroesophageal reflux disease) GERD (gastroesophageal reflux disease) History of urinary incontinence (~2018) Hyperlipidemia Hypertension Overactive bladder Partial blindness Post-menopausal Screening for malignant neoplasm of colon Subdural hematoma Swelling of left lower extremity Upper GI bleed Vision disorder Surgical History Anesthesia History of cholecystectomy History of hip replacement (~2019) History of surgery on arm Tubal ligation status Family History Mother Heart disease Father No problems noted. Sister Cancer Social History marital status: household members: significant other caregiver/support person: Yes Smoking Status: Former smoker alcohol intake: former Discharge Plan Discharge Plan Patient Disposition: SNF Transfer to: [facility] Discharge orders & Medications Prescriptions: New methocarbamol 500 mg Tablet 500 mg PO TID PRN (Reason: Muscle Spasm) Qty: 20 0RF sennosides [senna] 8.6 mg Tablet 8.6 mg PO DAILY Qty: 20 0RF polyethylene glycol 3350 17 gram Powder In Packet 17 gm PO DAILY Qty: 20 0RF bisacodyl 10 mg Suppository 10 mg MD DAILY PRN (Reason: Constipation) Qty: 30 0RF docusate sodium 100 mg Capsule 100 mg PO BID Qty: 30 0RF oxycodone 5 mg Tablet 5 mg PO Q3HR PRN (Reason: Pain, Moderate (4-6)) Qty: 20 0RF enoxaparin [Lovenox] 30 mg/0.3 mL Syringe 30 mg SUBCUT DAILY Qty: 10 0RF Continued amlodipine 10 mg tablet 10 mg PO DAILY Qty: 90 2RF atorvastatin [Lipitor] 20 mg tablet 40 mg PO BEDTIME Qty: 90 2RF insulin aspart U-100 [Novolog Flexpen U-100 Insulin] 100 unit/mL (3 mL) insulin pen 1 sliding scale dose subcut QIDACHS Qty: 15 2RF Lantus Solostar U-100 Insulin 100 unit/mL (3 mL) insulin pen 12 unit SUBCUT QPM Qty: 15 2RF sucralfate [Carafate] 1 gram tablet 1 g PO QID Qty: 360 2RF (DME) Briefs Misc See Rx Instructions .Route Qty: 50 6RF Rx Instructions: Use daily and as needed for urinary incontinence furosemide [Lasix] 20 mg tablet 20 mg PO .COMPLEX Qty: 30 0RF Rx Instructions: Take 20 mg 1 tab by mouth every Saturday and Saturday. Weigh daily, call if she gains >5lbs in 1 week cholecalciferol (vitamin D3) [Vitamin D3] 1,000 unit Capsule 1,000 unit PO BID 0RF cyanocobalamin (vitamin B-12) [Vitamin B-12] 1,000 mcg Tablet 1,000 mcg PO DAILY 0RF lisinopril 20 mg Tablet 20 mg PO DAILY 0RF pantoprazole [Protonix] 20 mg Tablet,Delayed Release (Dr/Ec) 20 mg PO DAILY 0RF oxybutynin chloride 5 mg Tablet Extended Release 24hr 5 mg PO DAILY 0RF omeprazole 20 mg Capsule,Delayed Release(Dr/Ec) 20 mg PO DAILY 0RF No Action (DME) Glucose Test strips See Rx Instructions .Route .MEDSUPPLY Qty: 100 11RF Rx Instructions: Use to test blood sugars four times daily. Follow up/Referrals: Radha Mares MD [Physician] - (Postop visit in 10-14 days) Carmina Madrigal ARNP [Primary Care Provider] - Diet/Activity/Treatments Diet: Carb-consistent/Diabetic Liquid consistency: Normal/Thin Food texture: Regular Other treatments: Dressing/Wound care: -Keep dressing in place until postoperative follow-up office visit. -Okay to shower. Keep wound out of direct water stream. No soaking or submerging until all the scabs fall off (approximately 6 weeks). -Please call the office if dressing becomes wet, soiled, or saturated. Activities: -Weight-bearing as tolerated. Use front wheeled walker, and progress to cane when safe. -Continue with home exercises as directed by your physical therapist. -Elevate ?toes above the nose if you have significant swelling in your lower leg. (A wedge pillow is easiest.) -Ice your incision as needed for pain/inflammation/swelling. Protect your skin with a folded pillowcase. Follow-up: -Follow-up with your surgeon or PA in the office in 10-14 days after surgery. -Follow-up with your surgeon 6 weeks postoperatively. Call the office if you have chest pain, shortness of breath, significant swelling that will not resolve with elevating, fever over 101?, significantly worsening pain. [facility] Orth[facility]ics: [phone] Skin/Wound/Dressing Care Report to your healthcare provider any signs of infection, such as:: chills, fever, night sweats, unusual drainage and unusual redness Special Rehabilitation Services Rehab type: Physical therapy and Occupational therapy Discharge Data Primary Care Provider: Carmina Madrigal VTE Deep Vein Thrombosis/Pulmonary Embolism Present on Admission: No
--- NOTE | 2021-07-03 10:20 | CM.DPC ---
DCP Discharge to SNF Per MD, pt remains medically stable to d/c to SNF today and no identified barriers to discharge. ASHLEIGH confirmed with [facility] that auth initiated by ASHLEIGH this weekend for SNF was approved and they notified [facility]. ASHLEIGH called [facility] and confirmed transport still scheduled for 1330 today via cabulance and provided pt's SS# and they will contact pt's Sig Dipti Shah next to confirm her acceptance at their facility. ASHLEIGH met bedside with pt and Nicho Resendez/DULCE Shah and updated on d/c to [facility] at 1330 and Pablo very thankful that it is a closer SNF to [place] than anticipated and he acknowledges understanding and appreciative. ASHLEIGH updated that [facility] admissions will be calling him to confirm pt's acceptance at their facility due to pt's dementia. ASHLEIGH updated RN, AUTO REBUILDER, display trimmer and MD. BRETT Valera kindly faxing d/c packet to [facility] to review. Plan: Patient to d/c to [facility] SNF for rehab via cabulance at 1330 prior to return home with Nicho Resendez. Evelia Graves, AGRICULTURE LABORATORY TECHNICIAN
[2021-07-03] MEDS: OXYCODONE IR 10 MG TABLET PO (10:53)
--- NOTE | 2021-07-03 11:08 | CM.DPNOTE ---
Emailed final snf referral packet and received receipt per Evelia to [facility]. Moraima Soriano CM assist.
--- NOTE | 2021-07-03 13:26 | PC.NURSE ---
report given to RN at [facility]
== END 2021-07-03 14:08 | DRG 481 ==
LOC: ED 23:53 → AC 06-26 02:26
PROVIDERS: Internal Medicine; Orthopaedic Surgery Foot and Ankle Surgery; Physician Assistant Medical; Admitting Provider Nurse Practitioner Family; Emergency Provider Emergency Medicine; PCP Registered Nurse; Referring Provider Emergency Medicine; Visit Provider Nurse Practitioner Family
PROC: 0QH636Z Insertion of Intramedullary Internal Fixation Device into Right Upper Femur, Percutaneous Approach (ICD-10-PCS; CPT 27245; principal; 2021-06-26 14:15)
DX: M84.451A Pathological fracture, right femur, initial encounter for fracture (principal); I13.0 Hypertensive heart and chronic kidney disease with heart failure and stage 1 through stage 4 chronic kidney disease, or unspecified chronic kidney disease; I50.32 Chronic diastolic (congestive) heart failure; D62 Acute posthemorrhagic anemia; N39.0 Urinary tract infection, site not specified; N18.32 Chronic kidney disease, stage 3b; E11.22 Type 2 diabetes mellitus with diabetic chronic kidney disease; E11.65 Type 2 diabetes mellitus with hyperglycemia; B96.1 Klebsiella pneumoniae [K. pneumoniae] as the cause of diseases classified elsewhere; E78.5 Hyperlipidemia, unspecified; K27.7 Chronic peptic ulcer, site unspecified, without hemorrhage or perforation; N32.81 Overactive bladder; S01.01XA Laceration without foreign body of scalp, initial encounter; W18.30XA Fall on same level, unspecified, initial encounter; K21.9 Gastro-esophageal reflux disease without esophagitis; Z79.4 Long term (current) use of insulin; Z20.822 Contact with and (suspected) exposure to COVID-19; Z87.891 Personal history of nicotine dependence
CPT/HCPCS: 36415; 36430; 70450; 71045; 71250; 72125; 73502; 74176; 76000; 80048; 80053; 81001; 82962; 83036; 83735; 84484; 85014; 85018; 85025; 86850; 86900; 86901; 87077; 87086; 87186; 87635; 93005; 93010; 94760; 96360; 96361; 97162; 97166; 97530; 97535; 99284; 99285; C9803; P9016; J0171; J0690; J1170; J1650; J1815; J1940; J2405; J2704; J3010

== ENCOUNTER 2021-07-24 08:16 | Emergency (ER) | payer MEDICARE, MEDICAID, SELFPAY ==
[2021-06-26 05:24] VITALS: BMI 24.7
[2021-07-24] VITALS (12 sets, daily range): BP systolic 174–191; BP diastolic 80–110; PULSE 64–73; RESP 16; O2SAT 98–100
--- NOTE | 2021-07-24 08:54 | ED.ABDPAIN ---
HPI - Abdominal Pain General Chief Complaint: Altered Mental Status Stated Complaint: Neuro Change Time Seen by Provider: 07/24/21 08:36 Source: patient Mode of arrival: Ambulatory Limitations: altered mental status History of Present Illness HPI narrative: The patient presents with her , was concerned about altered mental status. She apparently did not recognizing this morning. When asked orientation questions, she was unfamiliar with the month and year, apparently this is baseline. She has no fever, chills or URI symptoms. She has no speech changes or vision changes. She has no focal weakness. She has urinary incontinence, her is concerned she smells like he has an infection. She was apparently admitted in [place] last year for 3 days with a urinary infection, probably pyelonephritis. She has right flank pain at this time. She has history of alcoholic hepatitis, cirrhosis, diabetes and renal failure in addition to the chronic incontinence issue. She currently has no fever or chills. She has no abdominal pain, no nausea or vomiting. She has incontinence but she denies dysuria or hematuria. She arrives by EMS. She was recently hospitalized with a right femur fracture, undergoing ORIF. Related Data Home Medications Medication Instructions Recorded Confirmed cholecalciferol (vitamin D3) 25 1,000 unit PO BID 10/08/17 06/25/21 mcg (1,000 unit) capsule (Vitamin D3) cyanocobalamin (vitamin B-12) 1,000 mcg PO DAILY 08/02/19 06/25/21 1,000 mcg tablet (Vitamin B-12) lisinopril 20 mg tablet 20 mg PO DAILY 06/25/21 06/25/21 omeprazole 20 mg capsule,delayed 20 mg PO DAILY 06/25/21 06/25/21 release oxybutynin chloride 5 mg 5 mg PO DAILY 06/25/21 06/25/21 tablet,extended release 24 hr pantoprazole 20 mg tablet,delayed 20 mg PO DAILY 06/25/21 06/25/21 release (Protonix) Previous Rx's Medication Instructions Recorded Glucose Test strips #100 ea 03/28/21 amlodipine 10 mg tablet 10 mg PO DAILY #90 tab 03/29/21 atorvastatin 20 mg tablet (Lipitor) 40 mg PO BEDTIME #90 tab 03/29/21 insulin aspart U-100 100 unit/mL 1 sliding scale dose SUBCUT 03/29/21 (3 mL) subcutaneous pen (Novolog QIDACHS #15 ml Flexpen U-100 Insulin aspart) insulin glargine 100 unit/mL (3 12 unit (0.12 mL) SUBCUT QPM #15 ml 03/29/21 mL) subcutaneous pen (Lantus Solostar U-100 Insulin) sucralfate 1 gram tablet (Carafate) 1 g PO QID #360 tab 03/30/21 diaper,brief,adult,disposable #50 ea 05/03/21 (Briefs) furosemide 20 mg tablet (Lasix) 20 mg PO .COMPLEX #30 tab 06/16/21 bisacodyl 10 mg rectal suppository 10 mg [place] DAILY PRN #30 ea 07/03/21 docusate sodium 100 mg capsule 100 mg PO BID #30 cap 07/03/21 enoxaparin 30 mg/0.3 mL 30 mg (0.3 mL) SUBCUT DAILY #10 ml 07/03/21 subcutaneous syringe (Lovenox) methocarbamol 500 mg tablet 500 mg PO TID PRN #20 tab 07/03/21 oxycodone 5 mg tablet 5 mg PO Q3HR PRN #20 tab 07/03/21 polyethylene glycol 3350 17 gram 17 gm PO DAILY #20 ea 07/03/21 oral powder packet sennosides 8.6 mg tablet (senna) 8.6 mg PO DAILY #20 tab 07/03/21 Allergies Allergy/AdvReac Type Severity Reaction Status Date / Time Iodine and Iodide Containing Allergy Unknown Verified 06/08/21 18:35 Produc [IODINE AND IODIDE CONTAINING PRODUC] Review of Systems Constitutional Constitutional: Reports as per HPI, Denies anorexia, Denies chills, Denies fever(s) and Denies headache(s) Eyes Eyes: Denies change in vision ENT Ears, Nose, Mouth, and Throat: Denies vertigo, Denies dizziness, Denies facial pain, Denies headache(s), Denies mouth pain and Denies sore throat Cardiovascular Cardiovascular: Denies chest pain at rest and Denies palpitations Respiratory Respiratory: Denies cough Gastrointestinal Gastrointestinal: Denies abdominal pain and Denies nausea Genitourinary Genitourinary: Reports as per HPI Musculoskeletal Comments: Right back pain. Integumentary/Breasts Skin/Breast: Denies lesions and Denies rash Neurologic Neurologic: Denies abnormal movements, Reports confusion, Denies vertigo, Denies dizziness and Denies headache(s) Psychiatric Psychiatric: Reports confusion Endocrine Endocrine: Denies palpitations Hematologic/Lymphatic On Anticoagulants: No Patient History Medical History Acute on chronic diastolic heart failure Anemia Dow's esophagus with esophagitis Bilateral lower extremity edema CKD (chronic kidney disease) stage 3, GFR 30-59 ml/min CVA (cerebral vascular accident) (~2017) Dementia Diabetes Fractures Gallbladder disease GERD (gastroesophageal reflux disease) GERD (gastroesophageal reflux disease) History of urinary incontinence (~2017) Hyperlipidemia Hypertension Overactive bladder Partial blindness Post-menopausal Screening for malignant neoplasm of colon Subdural hematoma Swelling of left lower extremity Upper GI bleed Vision disorder Surgical History Anesthesia History of cholecystectomy History of hip replacement (~2019) History of surgery on arm Tubal ligation status Family History Mother Heart disease Father No problems noted. Sister Cancer Social History marital status: household members: significant other caregiver/support person: Yes Smoking Status: Former smoker alcohol intake: former Smoking Status: Former smoker tobacco type: cigarettes alcohol intake frequency: holidays/special occasions only Alcohol type: hard liquor Substance Use Type: marijuana Exam Initial Vital Signs Initial Vital Signs: Vital Signs Pulse Rate 71 07/24/21 08:10 Respiratory Rate 16 07/24/21 08:10 Blood Pressure 175/80 H 07/24/21 08:10 Pulse Oximetry 98 07/24/21 08:10 Const General: cooperative, No in distress, No anxious, frail appearing and No intoxicated appearing Orientation: Orientation (To person and place) [facility] Head: normocephalic and atraumatic Face and sinus: normal facial exam and sinuses tender Throat: posterior oropharynx normal Eyes General: appearance normal, both eyes and all related structures EOM: EOM intact bilaterally Neck Neck: normal visual inspection and No JVD Chest Chest: normal inspection of the chest Resp Effort & Inspection: normal respiratory effort Auscultation: clear to auscultation bilaterally Cardio Rate: regular rate Rhythm: regular rhythm Heart Sounds: S1 normal, S2 normal and no murmurs GI Inspection: normal to inspection Palpation: soft, No guarding and No tender Auscultation: normal bowel sounds Back/Spine/Pelvis Back: CVA tenderness right Skin General: no rashes or lesions noted Lesions: no lesions Rashes: no rashes Wounds: no wounds Neuro General: patient alert, patient awake, oriented (Person place) and no focal motor deficits Motor: muscle tone normal throughout Extrem General: normal to inspection and no pedal edema Course Course Course Narrative: She is oriented to person place only. Medical records indicate dementia. There is no significant flexion found. Dehydration is suggested. Due to incontinence she is not drinking much water. I discussed this with her and her . Orders Ordered: ED Orders 07/24/21 08:40 UA Complete [Urinalysis and Microscopic] Stat 07/24/21 08:47 Complete Blood Count AUTO DIFF Stat 07/24/21 08:48 Blood Culture Stat 07/24/21 10:45 Comprehensive Metabolic Panel Stat Lactate (Lactic Acid) Stat Lipase Stat Discontinued Medications Sodium Chloride (Normal Saline 0.9%) 500 mls @ 1,000 mls/hr IV BOLUS ONE Stop: 07/24/21 09:15 Vital Signs Vital signs: Vital Signs - 8 hr 07/24/21 08:10 07/24/21 08:18 07/24/21 08:41 Pulse Rate 71 73 72 Respiratory Rate 16 Blood Pressure 175/80 H Pulse Oximetry 98 98 98 07/24/21 09:00 07/24/21 09:10 07/24/21 09:30 Pulse Rate 70 71 64 Respiratory Rate Blood Pressure 191/110 H 174/82 H Pulse Oximetry 98 98 99 07/24/21 10:00 07/24/21 10:30 07/24/21 11:00 Pulse Rate 69 68 65 Respiratory Rate Blood Pressure Pulse Oximetry 98 98 100 07/24/21 11:09 Pulse Rate 70 Respiratory Rate Blood Pressure 184/85 H Pulse Oximetry 100 MDM - Abdominal Pain Lab Data Result diagrams: 07/24/21 08:47 07/24/21 10:45 Labs: Lab Results 07/24/21 07/24/21 07/24/21 Range/Units 08:40 08:47 10:45 WBC 5.5 (4.5-11.0) X10^3/uL RBC 3.61 L (4.0-5.2) X10^6/uL Hgb 9.3 L (12.0-16.0) g/dL Hct 30.2 L (36-46) % MCV 83.8 (80-100) fL MCH 25.7 L (26-34) PG MCHC 30.6 (30-36) % RDW 18.3 H (11.6-14.8) % Plt Count 268 (150-400) X10^3/uL Neut % (Auto) 66.6 (50-75) % Lymph % (Auto) 21.2 L (25-40) % Mcdowell % (Auto) 10.3 (3-14) % Eos % (Auto) 1.5 L (2-4) % Baso % (Auto) 0.4 (0-2) % Neut # (Auto) 3600 (4863-6325) /uL Lymph # (Auto) 1200 (2712-1008) /uL Mcdowell # (Auto) 600 (0-900) /uL Eos # (Auto) 100 (0-450) /uL Baso # (Auto) 0 (0-100) /uL Sodium 138 (137-145) mmol/L Potassium 4.1 (3.4-5.1) mmol/L Chloride 111 H (98-107) mmol/L Carbon Dioxide 22 (22-32) mmol/L BUN 31 H (7-17) mg/dL Creatinine 1.66 H (0.52-1.04) mg/dL Estimated GFR 31.0 L (>60) mL/min BUN/Creatinine Ratio 18.7 (6-22) Glucose 289 H (80-110) mg/dL Lactate (0.7-2.1) mmol/L Calcium 8.8 (8.4-10.2) mg/dL Total Bilirubin 0.5 (0.2-1.3) mg/dL AST 24 (14-36) IU/L ALT 12 (<35) IU/L Alkaline Phosphatase 101 (38-126) U/L Total Protein 7.6 (6.3-8.2) g/dL Albumin 3.4 L (3.5-5.0) g/dL Globulin 4.2 H (1.7-4.1) g/dL Albumin/Globulin Ratio 0.8 L (1.0-2.8) Lipase 15 L (23-300) U/L Urine Color Yellow Urine Appearance Clear Urine pH 5.0 (4.5-8.0) Ur Specific Sutton 1.015 (1.000-1.035) Urine Protein 3+ H (Negative) Urine Glucose (UA) 1+ H (Negative) g/dL Urine Ketones Negative (NEGATIVE) Urine Occult Blood 1+ H (Negative) Urine Nitrate Negative (Negative) Urine Bilirubin Negative (NEGATIVE) Urine Urobilinogen 0.2 (0.2) E.U./dL Ur Leukocyte Esterase Negative (NEGATIVE) Urine RBC 1-5/hpf (0-5/HPF) Urine WBC 5-10/hpf H (0-5/HPF) Ur Squamous Epith Cells 5-10 /hpf H (0-5/HPF) Amorphous Sediment 3+ Urine Bacteria Few (2-10) H (None) Ur Culture Indicated? Cult not indicated 07/24/21 Range/Units 10:45 WBC (4.5-11.0) X10^3/uL RBC (4.0-5.2) X10^6/uL Hgb (12.0-16.0) g/dL Hct (36-46) % MCV (80-100) fL MCH (26-34) PG MCHC (30-36) % RDW (11.6-14.8) % Plt Count (150-400) X10^3/uL Neut % (Auto) (50-75) % Lymph % (Auto) (25-40) % Mcdowell % (Auto) (3-14) % Eos % (Auto) (2-4) % Baso % (Auto) (0-2) % Neut # (Auto) (9496-8579) /uL Lymph # (Auto) (3807-7399) /uL Mcdowell # (Auto) (0-900) /uL Eos # (Auto) (0-450) /uL Baso # (Auto) (0-100) /uL Sodium (137-145) mmol/L Potassium (3.4-5.1) mmol/L Chloride (98-107) mmol/L Carbon Dioxide (22-32) mmol/L BUN (7-17) mg/dL Creatinine (0.52-1.04) mg/dL Estimated GFR (>60) mL/min BUN/Creatinine Ratio (6-22) Glucose (80-110) mg/dL Lactate 1.5 (0.7-2.1) mmol/L Calcium (8.4-10.2) mg/dL Total Bilirubin (0.2-1.3) mg/dL AST (14-36) IU/L ALT (<35) IU/L Alkaline Phosphatase (38-126) U/L Total Protein (6.3-8.2) g/dL Albumin (3.5-5.0) g/dL Globulin (1.7-4.1) g/dL Albumin/Globulin Ratio (1.0-2.8) Lipase (23-300) U/L Urine Color Urine Appearance Urine pH (4.5-8.0) Ur Specific Sutton (1.000-1.035) Urine Protein (Negative) Urine Glucose (UA) (Negative) g/dL Urine Ketones (NEGATIVE) Urine Occult Blood (Negative) Urine Nitrate (Negative) Urine Bilirubin (NEGATIVE) Urine Urobilinogen (0.2) E.U./dL Ur Leukocyte Esterase (NEGATIVE) Urine RBC (0-5/HPF) Urine WBC (0-5/HPF) Ur Squamous Epith Cells (0-5/HPF) Amorphous Sediment Urine Bacteria (None) Ur Culture Indicated? Discharge Plan Departure Patient Disposition: Home Clinical Impression: Confusion, Chronic renal insufficiency, stage III (moderate), Urinary incontinence, Dehydration Instructions: Urinary Incontinence -- Female Activity Restrictions/Additional Instructions: Continue your current medications. You need to increase her water intake. Follow up with her PCM regarding your urinary incontinence. Specialty consultation may be necessary. Return here as needed. Prescriptions: No Action (DME) Glucose Test strips See Rx Instructions .Route .MEDSUPPLY Qty: 100 11RF Rx Instructions: Use to test blood sugars four times daily. amlodipine 10 mg tablet 10 mg PO DAILY Qty: 90 2RF atorvastatin [Lipitor] 20 mg tablet 40 mg PO BEDTIME Qty: 90 2RF insulin aspart U-100 [Novolog Flexpen U-100 Insulin] 100 unit/mL (3 mL) insulin pen 1 sliding scale dose subcut QIDACHS Qty: 15 2RF Lantus Solostar U-100 Insulin 100 unit/mL (3 mL) insulin pen 12 unit SUBCUT QPM Qty: 15 2RF sucralfate [Carafate] 1 gram tablet 1 g PO QID Qty: 360 2RF (DME) Briefs Misc See Rx Instructions .Route Qty: 50 6RF Rx Instructions: Use daily and as needed for urinary incontinence furosemide [Lasix] 20 mg tablet 20 mg PO .COMPLEX Qty: 30 0RF Rx Instructions: Take 20 mg 1 tab by mouth every Saturday and Saturday. Weigh daily, call if she gains >5lbs in 1 week cholecalciferol (vitamin D3) [Vitamin D3] 1,000 unit Capsule 1,000 unit PO BID 0RF cyanocobalamin (vitamin B-12) [Vitamin B-12] 1,000 mcg Tablet 1,000 mcg PO DAILY 0RF lisinopril 20 mg Tablet 20 mg PO DAILY 0RF pantoprazole [Protonix] 20 mg Tablet,Delayed Release (Dr/Ec) 20 mg PO DAILY 0RF oxybutynin chloride 5 mg Tablet Extended Release 24hr 5 mg PO DAILY 0RF omeprazole 20 mg Capsule,Delayed Release(Dr/Ec) 20 mg PO DAILY 0RF methocarbamol 500 mg Tablet 500 mg PO TID PRN (Reason: Muscle Spasm) Qty: 20 0RF sennosides [senna] 8.6 mg Tablet 8.6 mg PO DAILY Qty: 20 0RF polyethylene glycol 3350 17 gram Powder In Packet 17 gm PO DAILY Qty: 20 0RF bisacodyl 10 mg Suppository 10 mg [place] DAILY PRN (Reason: Constipation) Qty: 30 0RF docusate sodium 100 mg Capsule 100 mg PO BID Qty: 30 0RF oxycodone 5 mg Tablet 5 mg PO Q3HR PRN (Reason: Pain, Moderate (4-6)) Qty: 20 0RF enoxaparin [Lovenox] 30 mg/0.3 mL Syringe 30 mg SUBCUT DAILY Qty: 10 0RF Referrals: Carmina Madrigal, GARY [Primary Care Provider] -
--- NOTE | 2021-07-24 09:21 | PC.NURSE ---
pt states pt is normally confused but knows who i am but upon waking this morning, she did not know who he was. she has a history of UTIs and has been confused previously with one. he states she has had some foul smelling urine recently when he changes her diapers. Patient states she didnt recognize her this morning and that he looked younger.
[2021-07-24 09:26] LABS: Appearance Urine UA CLEAR; Bilirubin Urine UA NEGATIVE (NEGATIVE); Color Urine UA YELLOW; Glucose Urine UA 1+ g/dL (Negative); Ketones Urine UA NEGATIVE (NEGATIVE); Leukocyte Esterase Urine UA NEGATIVE (NEGATIVE); Nitrite Urine UA NEGATIVE (Negative); Occult Blood Urine UA 1+ (Negative); Protein Urine UA 3+ (Negative); Specific Gravity Urine UA 1.015 (1.000-1.035); Urobilinogen Urine UA 0.2 E.U./dL (0.2)
[2021-07-24 09:44] LABS: Amorphous Sediment Urine 3+; Bacteria Urine Few (2-10); Culture Indicated Urine Cult Not Indicated; RBC Urine 1-5/HPF (0-5/HPF); Squamous Epithelial Cell Urine 5-10 /HPF (0-5/HPF); WBC Urine 5-10/HPF (0-5/HPF)
[2021-07-24 11:10] LABS: Add Manual Diff / Slide Review NO; Basophils Absolute Auto 0 /uL (0-100); Basophils Percent Auto 0.4 % (0-2); Eosinophils Absolute Auto 100 /uL (0-450); Eosinophils Percent Auto 1.5 % (2-4); Hematocrit 30.2 % (36-46); Hemoglobin 9.3 g/dL (12.0-16.0); Lymphocytes Absolute Auto 1200 /uL (1100-4500); Lymphocytes Percent Auto 21.2 % (25-40); Mean Corpuscular HGB Conc 30.6 % (30-36); Mean Corpuscular Hemoglobin 25.7 PG (26-34); Mean Corpuscular Volume 83.8 fL (80-100); Monocytes Absolute Auto 600 /uL (0-900); Monocytes Percent Auto 10.3 % (3-14); Neutrophils Absolute Auto 3600 /uL (1500-7000); Neutrophils Percent Auto 66.6 % (50-75); Platelet Count 268 X10^3/uL (150-400); Red Blood Cell Count 3.61 X10^6/uL (4.0-5.2); Red Cell Distribution Width 18.3 % (11.6-14.8); White Blood Cell Count 5.5 X10^3/uL (4.5-11.0)
[2021-07-24 11:31] LABS: Lactate (Lactic Acid) 1.5 mmol/L (0.7-2.1)
[2021-07-24 11:32] LABS: Alanine Aminotransferase 12 IU/L (<35); Albumin 3.4 g/dL (3.5-5.0); Albumin Globulin Ratio 0.8 (1.0-2.8); Alkaline Phosphatase 101 U/L (38-126); Aspartate Aminotransferase 24 IU/L (14-36); BUN Creatinine Ratio 18.7 (6-22); Bilirubin Total 0.5 mg/dL (0.2-1.3); Blood Urea Nitrogen 31 mg/dL (7-17); Calcium 8.8 mg/dL (8.4-10.2); Carbon Dioxide 22 mmol/L (22-32); Chloride 111 mmol/L (98-107); Globulin 4.2 g/dL (1.7-4.1); Glucose 289 mg/dL (80-110); HEMOLYSIS < 15 (0-50); Lipase 15 U/L (23-300); Potassium 4.1 mmol/L (3.4-5.1); Sodium 138 mmol/L (137-145); Total Protein 7.6 g/dL (6.3-8.2)
== END 2021-07-24 12:32 | disposition home or self-care (01) ==
PROVIDERS: Emergency Provider Emergency Medicine; PCP Registered Nurse
DX: R41.0 Disorientation, unspecified (principal); I13.0 Hypertensive heart and chronic kidney disease with heart failure and stage 1 through stage 4 chronic kidney disease, or unspecified chronic kidney disease; E11.22 Type 2 diabetes mellitus with diabetic chronic kidney disease; N18.30 Chronic kidney disease, stage 3 unspecified; I50.32 Chronic diastolic (congestive) heart failure; Z87.891 Personal history of nicotine dependence; R32 Unspecified urinary incontinence; E86.0 Dehydration; Z46.6 Encounter for fitting and adjustment of urinary device
CPT/HCPCS: 36415; 51701; 80053; 81001; 83605; 83690; 85025; 87040; 99283

== ENCOUNTER 2021-07-31 12:16 | Emergency (ER) | payer MEDICARE, MEDICAID, SELFPAY ==
[2021-06-26 05:24] VITALS: BMI 24.7
--- NOTE | 2021-07-31 12:19 | DI.CT.S_ITS ---
PROCEDURE: CT HEAD/BRAIN WO CON INDICATIONS: fall on thinners TECHNIQUE: Noncontrast 4.5 mm thick angled axial sections acquired from the foramen magnum to the vertex, with coronal and sagittal reformats. For radiation dose reduction, the following was used: automated exposure control, adjustment of mA and/or kV according to patient size. COMPARISON: [facility], CT, CT HEAD/BRAIN WO CON, 06/25/2021, 21:45. FINDINGS: Image quality: Excellent. CSF spaces: Basal cisterns are patent. No extra-axial fluid collections. Ventricles are normal in size and shape. Brain: No midline shift. No intracranial masses or hemorrhage. No area of hypodensity in a large vascular distribution to suggest acute infarction. Periventricular hypodensity consistent with chronic microvascular ischemic change. Age-related parenchymal loss. Skull and face: Calvarium and visualized facial bones are intact, without suspicious lesions. Sinuses: Visualized sinuses and mastoids are clear. IMPRESSION: No acute intracranial abnormality. Chronic microvascular ischemic disease. Dictated by: Eagle Alonso M.D. on 07/31/2021 at 12:01 Approved by: Eagle Alonso M.D. on 07/31/2021 at 12:07
--- NOTE | 2021-07-31 12:19 | DI.CT.S_ITS ---
PROCEDURE: CT CERVICAL SPINE WO CON INDICATIONS: fall on thinners TECHNIQUE: Noncontrast 3 mm thick sections acquired from the skull base to the T4 level. Sagittal and coronal reformats were then constructed. For radiation dose reduction, the following was used: automated exposure control, adjustment of mA and/or kV according to patient size. COMPARISON: [facility], CT, CT CERVICAL SPINE WO CON, 06/25/2021, 21:45. FINDINGS: Image quality: Good. Bones: No fractures or dislocations. Moderate degenerative change most pronounced at C6-C7. Visualized superior ribs are intact. Soft tissues: Ascending aorta demonstrates aneurysmal dilatation measuring 3.7 cm, (4/12). Aneurysmal dilatation of the main pulmonary artery measuring approximately 3.7 cm. Prevertebral soft tissues are normal in thickness. No paravertebral hematomas. No apical pneumothoraces. IMPRESSION: No acute osseous abnormality. Aneurysmal dilatation of the ascending aorta and main pulmonary artery. Dictated by: Eagle Alonso M.D. on 07/31/2021 at 12:07 Approved by: Eagle Alonso M.D. on 07/31/2021 at 12:12
[2021-07-31 12:26] VITALS: BP 161/68; PULSE 71; RESP 18; TEMP 36.8; O2SAT 100; BMI 21.1
--- NOTE | 2021-07-31 13:14 | ED.FALL ---
HPI - Fall General Chief Complaint: Trauma Stated Complaint: Fall Time Seen by Provider: 07/31/21 12:58 Source: patient and EMS Mode of arrival: EMS History of Present Illness HPI Narrative: Patient is a 66-year-old female who presents after ground level fall. She is on Lovenox his injections after right hip intertrochanteric fracture. She fracture her right hip in June. She was released to rehab her says she just got out recently. She does have a walker at home that she normally uses. She said she stood up to walk just a few feet but fell. She did not hit her head or lose consciousness. She said she was just unsteady. Denies any dizziness numbness tingling or weakness. says that there are rowena still in her head from when she fell last Related Data Home Medications Medication Instructions Recorded Confirmed cholecalciferol (vitamin D3) 25 1,000 unit PO BID 10/08/17 07/27/21 mcg (1,000 unit) capsule (Vitamin D3) cyanocobalamin (vitamin B-12) 1,000 mcg PO DAILY 08/02/19 07/27/21 1,000 mcg tablet (Vitamin B-12) lisinopril 20 mg tablet 20 mg PO DAILY 06/25/21 07/27/21 omeprazole 20 mg capsule,delayed 20 mg PO DAILY 06/25/21 07/27/21 release oxybutynin chloride 5 mg 5 mg PO DAILY 06/25/21 07/27/21 tablet,extended release 24 hr pantoprazole 20 mg tablet,delayed 20 mg PO DAILY 06/25/21 07/27/21 release (Protonix) Previous Rx's Medication Instructions Recorded Glucose Test strips #100 ea 03/28/21 amlodipine 10 mg tablet 10 mg PO DAILY #90 tab 03/29/21 atorvastatin 20 mg tablet (Lipitor) 40 mg PO BEDTIME #90 tab 03/29/21 insulin aspart U-100 100 unit/mL 1 sliding scale dose SUBCUT 03/29/21 (3 mL) subcutaneous pen (Novolog QIDACHS #15 ml Flexpen U-100 Insulin aspart) insulin glargine 100 unit/mL (3 12 unit (0.12 mL) SUBCUT QPM #15 ml 03/29/21 mL) subcutaneous pen (Lantus Solostar U-100 Insulin) sucralfate 1 gram tablet (Carafate) 1 g PO QID #360 tab 03/30/21 diaper,brief,adult,disposable #50 ea 05/03/21 (Briefs) furosemide 20 mg tablet (Lasix) 20 mg PO .COMPLEX #30 tab 06/16/21 bisacodyl 10 mg rectal suppository 10 mg UT DAILY PRN #30 ea 07/03/21 docusate sodium 100 mg capsule 100 mg PO BID #30 cap 07/03/21 enoxaparin 30 mg/0.3 mL 30 mg (0.3 mL) SUBCUT DAILY #10 ml 07/03/21 subcutaneous syringe (Lovenox) methocarbamol 500 mg tablet 500 mg PO TID PRN #20 tab 07/03/21 oxycodone 5 mg tablet 5 mg PO Q3HR PRN #20 tab 07/03/21 polyethylene glycol 3350 17 gram 17 gm PO DAILY #20 ea 07/03/21 oral powder packet sennosides 8.6 mg tablet (senna) 8.6 mg PO DAILY #20 tab 07/03/21 Allergies Allergy/AdvReac Type Severity Reaction Status Date / Time Iodine and Iodide Containing Allergy Unknown Verified 07/31/21 12:58 Produc [IODINE AND IODIDE CONTAINING PRODUC] Review of Systems Review of Systems Narrative: GENERAL: +fall Denies chills, fatigue, malaise, fever, sweats, travel HEENT: Denies sinus pain, ear pain, sore throat, difficulty swallowing, neck pain RESPIRATORY: Denies dyspnea, cough, wheezing, hemoptysis, sputum. CARDIOVASCULAR: Denies chest pain, palpitations, orthopnea, edema GASTROINTESTINAL: Denies nausea, vomiting, abdominal pain, diarrhea, constipation, melena. : Denies dysuria, frequency, incontinence, hematuria, urinary retention, flank pain. MUSCULOSKELETAL: Denies weakness, joint pain, or bony pain SKIN: No rash, no erythema, no pruritus NEUROLOGIC: Denies weakness, dizziness, headache, numbness, change in speech, confusion PSYCHIATRIC: No concerning psychosocial issues. 12 point review of systems is negative except for those stated above and HPI Patient History Medical History Acute on chronic diastolic heart failure Anemia Dow's esophagus with esophagitis Bilateral lower extremity edema CKD (chronic kidney disease) stage 3, GFR 30-59 ml/min CVA (cerebral vascular accident) (~2017) Dementia Diabetes Fractures Gallbladder disease GERD (gastroesophageal reflux disease) GERD (gastroesophageal reflux disease) History of urinary incontinence (~2017) Hyperlipidemia Hypertension Overactive bladder Partial blindness Post-menopausal Screening for malignant neoplasm of colon Subdural hematoma Swelling of left lower extremity Upper GI bleed Vision disorder Surgical History Anesthesia History of cholecystectomy History of hip replacement (~2019) History of surgery on arm Tubal ligation status Family History Mother Heart disease Father No problems noted. Sister Cancer Social History marital status: household members: significant other caregiver/support person: Yes Smoking Status: Former smoker alcohol intake: former Smoking Status: Former smoker tobacco type: cigarettes alcohol intake frequency: holidays/special occasions only Alcohol type: hard liquor Substance Use Type: marijuana Exam Initial Vital Signs Initial Vital Signs: Vital Signs Temperature 98.3 F 07/31/21 12:26 Pulse Rate 71 07/31/21 12:26 Respiratory Rate 18 07/31/21 12:26 Blood Pressure 161/68 H 07/31/21 12:26 Pulse Oximetry 100 07/31/21 12:26 GENERAL: Alert 66-year-old female in no acute distress HEENT: Head atraumatic , old scab noted on posterior scalp, no actual rowena appreciated, pupils reactive, face symmetric, moist mucous membranes CARDIOVASCULAR: Regular rate and rhythm without murmurs, rubs or gallops. RESPIRATORY: Breath sounds equal bilaterally, no wheezes rales or rhonchi. ABDOMEN: Soft, nontender. Normoactive bowel sounds all 4 quadrants. No guarding or rebound. EXTREMITIES: Normal range of motion, no clubbing or edema. Neurovascularly intact NEUROLOGICAL: Alert and oriented x4.Normal gait and speech. Cranial nerves II through XII grossly intact. SKIN: Warm, dry, no laceration, no petechiae, no rashes or lesions. Course Orders Ordered: ED Orders 07/31/21 12:19 CT cervical spine wo con Stat CT head/brain wo con Stat Discontinued Medications Hydrogen Peroxide/Benzyl Alcohol (Hydrogen Peroxide 473 Ml Solution) 60 ml TOP NOW ONE Stop: 07/31/21 13:35 Last Admin: 07/31/21 14:02 Dose: Not Given Documented by: MELISSA Vital Signs Vital signs: Vital Signs - 8 hr 07/31/21 12:26 07/31/21 14:12 Temperature 98.3 F Pulse Rate 71 68 Respiratory Rate 18 Blood Pressure 161/68 H 169/96 H Pulse Oximetry 100 100 MDM - Fall Imaging Data CT scan - head: Radiologist's Impression: PROCEDURE:? CT HEAD/BRAIN WO CON ? INDICATIONS:? fall on thinners ? TECHNIQUE:? Noncontrast 4.5 mm thick angled axial sections acquired from the foramen magnum to the vertex, with coronal and sagittal reformats.? For radiation dose reduction, the following was used:? automated exposure control, adjustment of mA and/or kV according to patient size.? ? COMPARISON:? [facility], CT, CT HEAD/BRAIN WO CON, 06/25/2021, 21:45. ? FINDINGS:? Image quality:? Excellent.? ? CSF spaces:? Basal cisterns are patent.? No extra-axial fluid collections.? Ventricles are normal in size and shape.? ? Brain:? No midline shift.? No intracranial masses or hemorrhage.? No area of hypodensity in a large vascular distribution to suggest acute infarction. Periventricular hypodensity consistent with chronic microvascular ischemic change. Age-related parenchymal loss. ? Skull and face:? Calvarium and visualized facial bones are intact, without suspicious lesions.? ? Sinuses:? Visualized sinuses and mastoids are clear.? ? IMPRESSION:? No acute intracranial abnormality. Chronic microvascular ischemic disease. ? ? Dictated by: Eagle Alonso M.D. on 07/31/2021 at 12:01 ? ? Approved by: Eagle Alonso M.D. on 07/31/2021 at 12:07 ? CT - cervical spine: Radiologist's Impression: PROCEDURE:? CT CERVICAL SPINE WO CON ? INDICATIONS:? fall on thinners ? TECHNIQUE:? Noncontrast 3 mm thick sections acquired from the skull base to the T4 level.? Sagittal and coronal reformats were then constructed.? For radiation dose reduction, the following was used:? automated exposure control, adjustment of mA and/or kV according to patient size.? ? COMPARISON:? [facility], CT, CT CERVICAL SPINE WO CON, 06/25/2021, 21:45. ? FINDINGS:? Image quality:? Good.? ? Bones:? No fractures or dislocations.? Moderate degenerative change most pronounced at C6-C7.? Visualized superior ribs are intact.? ? Soft tissues:? Ascending aorta demonstrates aneurysmal dilatation measuring 3.7 cm, (08/29).? Aneurysmal dilatation of the main pulmonary artery measuring approximately 3.7 cm.? Prevertebral soft tissues are normal in thickness.? No paravertebral hematomas.? No apical pneumothoraces.? ? ? IMPRESSION:? No acute osseous abnormality. ? Aneurysmal dilatation of the ascending aorta and main pulmonary artery. ? ? Dictated by: Eagle Alonso M.D. on 07/31/2021 at 12:07 ? ? MDM Narrative Medical decision making narrative: At this time patient had a mechanical fall she apparently does fall. I recommended that she use her walker at all times she understands and agrees to this. She has no focal deficits or evidence of new trauma at this time. Therefore patient does not require any further workup at this time. Discharge Plan Departure Patient Disposition: Home Clinical Impression: Fall Instructions: How to Prevent Falls Activity Restrictions/Additional Instructions: *You have been diagnosed with fall *What to do: Use your walker at all times. There are no rowena in your head. *Continue to take medications as directed *Follow up with your primary care provider in 2-3 days or call [phone] *Return to ER if you should have increasing confusion, frequent falls or any new, worsening or concerning symptoms Prescriptions: No Action (DME) Glucose Test strips See Rx Instructions .Route .MEDSUPPLY Qty: 100 11RF Rx Instructions: Use to test blood sugars four times daily. amlodipine 10 mg tablet 10 mg PO DAILY Qty: 90 2RF atorvastatin [Lipitor] 20 mg tablet 40 mg PO BEDTIME Qty: 90 2RF insulin aspart U-100 [Novolog Flexpen U-100 Insulin] 100 unit/mL (3 mL) insulin pen 1 sliding scale dose subcut QIDACHS Qty: 15 2RF Lantus Solostar U-100 Insulin 100 unit/mL (3 mL) insulin pen 12 unit SUBCUT QPM Qty: 15 2RF sucralfate [Carafate] 1 gram tablet 1 g PO QID Qty: 360 2RF (DME) Briefs Misc See Rx Instructions .Route Qty: 50 6RF Rx Instructions: Use daily and as needed for urinary incontinence furosemide [Lasix] 20 mg tablet 20 mg PO .COMPLEX Qty: 30 0RF Rx Instructions: Take 20 mg 1 tab by mouth every Saturday and Saturday. Weigh daily, call if she gains >5lbs in 1 week cholecalciferol (vitamin D3) [Vitamin D3] 1,000 unit Capsule 1,000 unit PO BID 0RF cyanocobalamin (vitamin B-12) [Vitamin B-12] 1,000 mcg Tablet 1,000 mcg PO DAILY 0RF lisinopril 20 mg Tablet 20 mg PO DAILY 0RF pantoprazole [Protonix] 20 mg Tablet,Delayed Release (Dr/Ec) 20 mg PO DAILY 0RF oxybutynin chloride 5 mg Tablet Extended Release 24hr 5 mg PO DAILY 0RF omeprazole 20 mg Capsule,Delayed Release(Dr/Ec) 20 mg PO DAILY 0RF methocarbamol 500 mg Tablet 500 mg PO TID PRN (Reason: Muscle Spasm) Qty: 20 0RF sennosides [senna] 8.6 mg Tablet 8.6 mg PO DAILY Qty: 20 0RF polyethylene glycol 3350 17 gram Powder In Packet 17 gm PO DAILY Qty: 20 0RF bisacodyl 10 mg Suppository 10 mg UT DAILY PRN (Reason: Constipation) Qty: 30 0RF docusate sodium 100 mg Capsule 100 mg PO BID Qty: 30 0RF oxycodone 5 mg Tablet 5 mg PO Q3HR PRN (Reason: Pain, Moderate (4-6)) Qty: 20 0RF enoxaparin [Lovenox] 30 mg/0.3 mL Syringe 30 mg SUBCUT DAILY Qty: 10 0RF Referrals: Joanna Pérez ARNP [Primary Care Provider] -
[2021-07-31 14:12] VITALS: BP 169/96; PULSE 68; O2SAT 100
== END 2021-07-31 14:26 | disposition home or self-care (01) ==
PROVIDERS: Emergency Provider Emergency Medicine; PCP Nurse Practitioner
DX: R29.6 Repeated falls (principal); Z79.01 Long term (current) use of anticoagulants; Z87.891 Personal history of nicotine dependence
CPT/HCPCS: 70450; 72125; 99284

== ENCOUNTER 2021-08-03 12:36 | Observation (INO) | payer MEDICARE, MEDICAID, SELFPAY ==
[2021-06-26 05:24] VITALS: BMI 24.7
[2021-08-03] VITALS (14 sets, daily range): BP systolic 136–167; BP diastolic 70–83; PULSE 67–75; RESP 10–20; TEMP 36.3–36.7; O2SAT 96–100; BMI 24.0; BMI 22.0
--- NOTE | 2021-08-03 12:51 | DI.CT.S_ITS ---
PROCEDURE: CT HEAD/BRAIN WO CON INDICATIONS: altered TECHNIQUE: Noncontrast 4.5 mm thick angled axial sections acquired from the foramen magnum to the vertex, with coronal and sagittal reformats. For radiation dose reduction, the following was used: automated exposure control, adjustment of mA and/or kV according to patient size. COMPARISON: [facility], CT, CT HEAD/BRAIN WO CON, 07/31/2021, 12:34. FINDINGS: Image quality: Excellent. CSF spaces: Basal cisterns are patent. No extra-axial fluid collections. The ventricles are symmetric in size and shape. Brain: No intracranial bleeds or masses. There is cerebral volume loss for age, with resultant ventricular and sulcal prominence. There are periventricular and deep white matter chronic small vessel ischemic changes. There is intracranial internal carotid artery atherosclerosis. Skull and face: Calvarium and visualized facial bones appear intact, without suspicious lesions. Sinuses: Visualized sinuses and mastoids are clear. IMPRESSION: No acute intracranial abnormality. Dictated by: Ruddy Cardenas M.D. on 08/03/2021 at 13:05 Approved by: Ruddy Cardenas M.D. on 08/03/2021 at 13:07
--- NOTE | 2021-08-03 12:52 | DI.RAD.S_ITS ---
PROCEDURE: XR CHEST 1V INDICATIONS: altered, weakness TECHNIQUE: One view of the chest was acquired. COMPARISON: [facility], CR, XR CHEST 1V, 06/25/2021, 22:14. FINDINGS: Surgical changes and devices: None. Lungs and pleura: Lungs are clear. No pleural effusions or pneumothorax. Mediastinum: Mediastinal contours appear normal. Heart size is enlarged, as before. Bones and chest wall: No suspicious bony lesions. Overlying soft tissues appear unremarkable. IMPRESSION: Cardiomegaly. No acute pulmonary findings. Dictated by: Marzena Starkey M.D. on 08/03/2021 at 13:20 Approved by: Marzena Starkey M.D. on 08/03/2021 at 13:20
--- NOTE | 2021-08-03 13:09 | ED_ITS ---
HPI - Neuro Symptoms/Deficit General Chief Complaint: Neuro Symptoms/Deficit Stated Complaint: Confusion when she woke,now baseline,LKW 1800 Time Seen by Provider: 08/03/21 12:42 Source: patient, family and EMS Mode of arrival: EMS History of Present Illness HPI Narrative: ?66-year-old female smoker, former heavy drinker with extensive medical history including myocardial infarction, kidney failure, sepsis, upper GI bleed presents by EMS for evaluation of altered mental status this morning. Per the 's report she went to bed in her normal state of health at about 6:00 p.m. and had an episode this morning lasting about 30 minutes which he found her to be more confused than normal. He states she did not recognize him and was confused about her location, in the symptoms lasted about 30 minutes. She was at her baseline by her arrival. She had no recent trauma or injury, no fever or chills and denies any change in medications or diet. She had no other obvious neurologic symptoms such as facial droop, slurring of words or unilateral weakness. On Anticoagulants: No Related Data Home Medications Medication Instructions Recorded Confirmed cholecalciferol (vitamin D3) 25 1,000 unit PO BID 10/08/17 08/03/21 mcg (1,000 unit) capsule (Vitamin D3) cyanocobalamin (vitamin B-12) 1,000 mcg PO DAILY 08/02/19 08/03/21 1,000 mcg tablet (Vitamin B-12) lisinopril 20 mg tablet 40 mg PO DAILY 06/25/21 08/03/21 omeprazole 20 mg capsule,delayed 20 mg PO DAILY 06/25/21 08/03/21 release oxybutynin chloride 5 mg 5 mg PO DAILY 06/25/21 08/03/21 tablet,extended release 24 hr pantoprazole 20 mg tablet,delayed 20 mg PO DAILY 06/25/21 08/03/21 release (Protonix) Previous Rx's Medication Instructions Recorded Glucose Test strips #100 ea 03/28/21 amlodipine 10 mg tablet 10 mg PO DAILY #90 tab 03/29/21 atorvastatin 20 mg tablet (Lipitor) 40 mg PO BEDTIME #90 tab 03/29/21 insulin aspart U-100 100 unit/mL 1 sliding scale dose SUBCUT 03/29/21 (3 mL) subcutaneous pen (Novolog QIDACHS #15 ml Flexpen U-100 Insulin aspart) insulin glargine 100 unit/mL (3 12 unit (0.12 mL) SUBCUT QPM #15 ml 03/29/21 mL) subcutaneous pen (Lantus Solostar U-100 Insulin) sucralfate 1 gram tablet (Carafate) 1 g PO QID #360 tab 03/30/21 diaper,brief,adult,disposable #50 ea 05/03/21 (Briefs) bisacodyl 10 mg rectal suppository 10 mg SC DAILY PRN #30 ea 07/03/21 docusate sodium 100 mg capsule 100 mg PO BID #30 cap 07/03/21 enoxaparin 30 mg/0.3 mL 30 mg (0.3 mL) SUBCUT DAILY #10 ml 07/03/21 subcutaneous syringe (Lovenox) methocarbamol 500 mg tablet 500 mg PO TID PRN #20 tab 07/03/21 oxycodone 5 mg tablet 5 mg PO Q3HR PRN #20 tab 07/03/21 polyethylene glycol 3350 17 gram 17 gm PO DAILY #20 ea 07/03/21 oral powder packet sennosides 8.6 mg tablet (senna) 8.6 mg PO DAILY #20 tab 07/03/21 Allergies Allergy/AdvReac Type Severity Reaction Status Date / Time Iodine and Iodide Containing Allergy Unknown Verified 07/31/21 12:58 Produc [IODINE AND IODIDE CONTAINING PRODUC] Review of Systems Review of Systems Narrative: GENERAL: Denies chills, fatigue, malaise, fever, sweats. HEENT: Denies sinus pain, ear pain, sore throat, difficulty swallowing, dizziness. RESPIRATORY: Denies dyspnea, cough, wheezing, hemoptysis, sputum. CARDIOVASCULAR: Denies chest pain, palpitations, orthopnea, edema, GASTROINTESTINAL: Denies nausea, vomiting, abdominal pain, diarrhea, constipation, melena. : Denies dysuria, frequency, incontinence, hematuria, urinary retention. MUSCULOSKELETAL: denies weakness, joint pain, or bony pain SKIN: Denies rash, skin lesions, or other NEUROLOGIC: See HPI PSYCHIATRIC: No concerning psychosocial issues. 12 point review of systems is negative except for those stated above Hematologic/Lymphatic On Anticoagulants: No Patient History Medical History Acute on chronic diastolic heart failure Anemia Dow's esophagus with esophagitis Bilateral lower extremity edema CKD (chronic kidney disease) stage 3, GFR 30-59 ml/min CVA (cerebral vascular accident) (~2017) Dementia Diabetes Fractures Gallbladder disease GERD (gastroesophageal reflux disease) GERD (gastroesophageal reflux disease) History of urinary incontinence (~2017) Hyperlipidemia Hypertension Overactive bladder Partial blindness Post-menopausal Screening for malignant neoplasm of colon Subdural hematoma Swelling of left lower extremity Upper GI bleed Vision disorder Surgical History Anesthesia History of cholecystectomy History of hip replacement (~2019) History of surgery on arm Tubal ligation status Family History Mother Heart disease Father No problems noted. Sister Cancer Social History marital status: household members: significant other caregiver/support person: Yes Smoking Status: Former smoker alcohol intake: former Smoking Status: Former smoker tobacco type: cigarettes alcohol intake frequency: holidays/special occasions only Alcohol type: hard liquor Substance Use Type: marijuana Exam Narrative Exam Narrative: GENERAL: [66] year old patient appears stated age. Well-developed patient, chronically ill and in no obvious or significant distress 14 (confused about date, this is baseline per ) HEAD: Atraumatic. Normocephalic. EYES: Pupils equal round and reactive. Extraocular motions intact. No scleral icterus. No injection or drainage. ENT: Nose without bleeding, purulent drainage. Throat without erythema, tonsillar hypertrophy or exudate. Airway patent. NECK: Trachea midline. Non tender CARDIOVASCULAR: Regular rate and rhythm without murmurs, gallops, or rubs. RESPIRATORY: Clear to auscultation. Breath sounds equal bilaterally. No wheezes, rales, or rhonchi. GASTROINTESTINAL: Abdomen soft, non-tender, nondistended. EXTREMITIES: No edema or joint tenderness. BACK: Nontender without deformity or crepitance. No flank tenderness NEURO: AOx2 (confused about date, baseline per ). Cranial nerves 2-12 grossly intact SKIN: No rash or erythema of visible areas Initial Vital Signs Initial Vital Signs: Vital Signs Temperature 98.1 F 08/03/21 12:37 Pulse Rate 75 08/03/21 12:37 Respiratory Rate 18 08/03/21 12:37 Blood Pressure 147/71 H 08/03/21 12:37 Pulse Oximetry 100 08/03/21 12:37 Course Orders Ordered: Acetaminophen (Acetaminophen 325 Mg Tablet) 650 mg PO Q6HR [facility] Last Admin: 08/04/21 06:16 Dose: 650 mg Documented by: Admin: 08/03/21 20:18 Dose: 650 mg Documented by: Admin: 08/03/21 19:03 Dose: Not Given Documented by: NIKOLAS Amlodipine Besylate (Amlodipine 5 Mg Tablet) 10 mg PO DAILY [facility] Atorvastatin Calcium (Atorvastatin 20 Mg Tablet) 40 mg PO BEDTIME [facility] Last Admin: 08/03/21 20:18 Dose: 40 mg Documented by: CARLOTA Bisacodyl (Bisacodyl 10 Mg Supp) 10 mg SC DAILY PRN PRN Reason: Constipation Dextrose (Dextrose 50 % In Water 25 Gm/50 Ml Syringe) 25 gm IV PRN PRN; Protocol PRN Reason: Hypoglycemia Heparin Sodium (Porcine) (Heparin 5,000 Unit/Ml Vial) 5,000 unit SUBCUT BID [facility] Last Admin: 08/03/21 20:18 Dose: 5,000 unit Documented by: CARLOTA Insulin Glargine (Insulin Glargine 100 Unit/Ml 3ml Pen) 10 unit SUBCUT BEDTIME [facility] Last Admin: 08/03/21 21:54 Dose: 10 unit Documented by: CARLOTA Cosigned by: TROY Insulin Human Lispro (Insulin Lispro 100 Unit/Ml 3ml Vial) 0 unit SUBCUT ACHS [facility]; Protocol Last Admin: 08/03/21 21:52 Dose: 4 unit Documented by: CARLOTA Cosigned by: TROY Lisinopril (Lisinopril 20 Mg Tablet) 40 mg PO DAILY [facility] Naloxone HCl (Naloxone 0.4 Mg/Ml Vial) 0.2 mg IV Q2MIN PRN PRN Reason: Opiate Reversal Ondansetron HCl (Ondansetron 4 Mg/2 Ml Inj) 4 mg IV Q8HR PRN PRN Reason: Nausea And Vomiting Oxybutynin (Oxybutynin 5 Mg Tablet) 5 mg PO DAILY [facility] Pantoprazole Sodium (Pantoprazole Dr 20 Mg Tablet) 20 mg PO 0700 [facility] Last Admin: 08/04/21 06:16 Dose: 20 mg Documented by: CARLOTA Discontinued Medications Sodium Chloride (Normal Saline 0.9%) 1,000 mls @ 150 mls/hr IV CONT MIRIAM Last Infusion: 08/03/21 18:10 Dose: 0 mls/hr Documented by: Infusion: 08/03/21 17:10 Dose: 150 mls/hr Documented by: Infusion: 08/03/21 16:15 Dose: 0 mls/hr Documented by: Admin: 08/03/21 15:00 Dose: 150 mls/hr Documented by: ANNE Vital Signs Vital signs: Vital Signs - 8 hr 08/03/21 12:37 08/03/21 13:16 08/03/21 13:17 Temperature 98.1 F Pulse Rate 75 72 73 Respiratory Rate 18 Blood Pressure 147/71 H 148/72 H Pulse Oximetry 100 100 100 08/03/21 13:30 08/03/21 14:00 08/03/21 14:30 Temperature Pulse Rate 72 72 72 Respiratory Rate 10 L 16 19 Blood Pressure 143/72 H 136/70 165/78 H Pulse Oximetry 99 100 99 08/03/21 15:00 08/03/21 15:30 Temperature Pulse Rate 70 69 Respiratory Rate 20 19 Blood Pressure 160/82 H 161/83 H Pulse Oximetry 100 100 MDM - Neuro Symptoms/Deficit Lab Data Result diagrams: 08/04/21 05:20 08/04/21 05:20 Labs: Lab Results 08/03/21 08/03/21 08/03/21 Range/Units 13:10 13:10 13:10 WBC 7.5 (4.5-11.0) X10^3/uL RBC 3.65 L (4.0-5.2) X10^6/uL Hgb 9.4 L (12.0-16.0) g/dL Hct 29.6 L (36-46) % MCV 81.0 (80-100) fL MCH 25.7 L (26-34) PG MCHC 31.8 (30-36) % RDW 17.9 H (11.6-14.8) % Plt Count 422 H (150-400) X10^3/uL Neut % (Auto) 71.1 (50-75) % Lymph % (Auto) 19.7 L (25-40) % [place] % (Auto) 7.6 (3-14) % Eos % (Auto) 0.9 L (2-4) % Baso % (Auto) 0.7 (0-2) % Neut # (Auto) 5400 (1213-6328) /uL Lymph # (Auto) 1500 (3345-9890) /uL [place] # (Auto) 600 (0-900) /uL Eos # (Auto) 100 (0-450) /uL Baso # (Auto) 100 (0-100) /uL PT 10.8 (10.1-12.7) SECONDS INR 1.0 (0.9-1.3) Sodium (137-145) mmol/L Potassium (3.4-5.1) mmol/L Chloride (98-107) mmol/L Carbon Dioxide (22-32) mmol/L BUN (7-17) mg/dL Creatinine (0.52-1.04) mg/dL Estimated GFR (>60) mL/min BUN/Creatinine Ratio (6-22) Glucose (80-110) mg/dL Lactate 2.0 (0.7-2.1) mmol/L Calcium (8.4-10.2) mg/dL Total Bilirubin (0.2-1.3) mg/dL Conjugated Bilirubin (0.0-0.3) md/dL Unconjugated Bilirubin (0.0-1.1) mg/dL AST (14-36) IU/L ALT (<35) IU/L Alkaline Phosphatase (38-126) U/L Ammonia (9-30) umol/L Total Creatine Kinase (30-135) U/L CK-MB (CK-2) CK-MB (CK-2) Rel Index Troponin I (0.01-0.034) ng/mL Total Protein (6.3-8.2) g/dL Albumin (3.5-5.0) g/dL Globulin (1.7-4.1) g/dL Albumin/Globulin Ratio (1.0-2.8) TSH (0.47-4.68) uIU/mL Prolactin (3.0-18.6) ng/mL Salicylates (<20) mg/dL Acetaminophen (10-30) ug/mL Ethyl Alcohol ( - 10) mg/dL SARS-CoV-2 (PCR) (Negative) 08/03/21 08/03/21 08/03/21 Range/Units 13:10 13:10 14:00 WBC (4.5-11.0) X10^3/uL RBC (4.0-5.2) X10^6/uL Hgb (12.0-16.0) g/dL Hct (36-46) % MCV (80-100) fL MCH (26-34) PG MCHC (30-36) % RDW (11.6-14.8) % Plt Count (150-400) X10^3/uL Neut % (Auto) (50-75) % Lymph % (Auto) (25-40) % [place] % (Auto) (3-14) % Eos % (Auto) (2-4) % Baso % (Auto) (0-2) % Neut # (Auto) (4524-7706) /uL Lymph # (Auto) (4307-2629) /uL [place] # (Auto) (0-900) /uL Eos # (Auto) (0-450) /uL Baso # (Auto) (0-100) /uL PT (10.1-12.7) SECONDS INR (0.9-1.3) Sodium 136 L (137-145) mmol/L Potassium 4.5 (3.4-5.1) mmol/L Chloride 109 H (98-107) mmol/L Carbon Dioxide 17 L (22-32) mmol/L BUN 30 H (7-17) mg/dL Creatinine 1.86 H (0.52-1.04) mg/dL Estimated GFR 27.2 L (>60) mL/min BUN/Creatinine Ratio 16.1 (6-22) Glucose 386 H (80-110) mg/dL Lactate (0.7-2.1) mmol/L Calcium 8.3 L (8.4-10.2) mg/dL Total Bilirubin 0.3 (0.2-1.3) mg/dL Conjugated Bilirubin 0.0 (0.0-0.3) md/dL Unconjugated Bilirubin 0.2 (0.0-1.1) mg/dL AST 18 (14-36) IU/L ALT 12 (<35) IU/L Alkaline Phosphatase 106 (38-126) U/L Ammonia < 9 L (9-30) umol/L Total Creatine Kinase 28 L (30-135) U/L CK-MB (CK-2) TNP CK-MB (CK-2) Rel Index TNP Troponin I < 0.012 (0.01-0.034) ng/mL Total Protein 7.1 (6.3-8.2) g/dL Albumin 3.2 L (3.5-5.0) g/dL Globulin 3.9 (1.7-4.1) g/dL Albumin/Globulin Ratio 0.8 L (1.0-2.8) TSH 1.42 (0.47-4.68) uIU/mL Prolactin 16.0 (3.0-18.6) ng/mL Salicylates < 1.0 (<20) mg/dL Acetaminophen < 10 L (10-30) ug/mL Ethyl Alcohol < 10 ( - 10) mg/dL SARS-CoV-2 (PCR) (Negative) 08/03/21 Range/Units 14:00 WBC (4.5-11.0) X10^3/uL RBC (4.0-5.2) X10^6/uL Hgb (12.0-16.0) g/dL Hct (36-46) % MCV (80-100) fL MCH (26-34) PG MCHC (30-36) % RDW (11.6-14.8) % Plt Count (150-400) X10^3/uL Neut % (Auto) (50-75) % Lymph % (Auto) (25-40) % [place] % (Auto) (3-14) % Eos % (Auto) (2-4) % Baso % (Auto) (0-2) % Neut # (Auto) (3395-0667) /uL Lymph # (Auto) (2617-6907) /uL [place] # (Auto) (0-900) /uL Eos # (Auto) (0-450) /uL Baso # (Auto) (0-100) /uL PT (10.1-12.7) SECONDS INR (0.9-1.3) Sodium (137-145) mmol/L Potassium (3.4-5.1) mmol/L Chloride (98-107) mmol/L Carbon Dioxide (22-32) mmol/L BUN (7-17) mg/dL Creatinine (0.52-1.04) mg/dL Estimated GFR (>60) mL/min BUN/Creatinine Ratio (6-22) Glucose (80-110) mg/dL Lactate (0.7-2.1) mmol/L Calcium (8.4-10.2) mg/dL Total Bilirubin (0.2-1.3) mg/dL Conjugated Bilirubin (0.0-0.3) md/dL Unconjugated Bilirubin (0.0-1.1) mg/dL AST (14-36) IU/L ALT (<35) IU/L Alkaline Phosphatase (38-126) U/L Ammonia (9-30) umol/L Total Creatine Kinase (30-135) U/L CK-MB (CK-2) CK-MB (CK-2) Rel Index Troponin I (0.01-0.034) ng/mL Total Protein (6.3-8.2) g/dL Albumin (3.5-5.0) g/dL Globulin (1.7-4.1) g/dL Albumin/Globulin Ratio (1.0-2.8) TSH (0.47-4.68) uIU/mL Prolactin (3.0-18.6) ng/mL Salicylates (<20) mg/dL Acetaminophen (10-30) ug/mL Ethyl Alcohol ( - 10) mg/dL SARS-CoV-2 (PCR) Negative (Negative) Point of Care Testing Glucose POC [address] scan - head: Radiologist's Impression: Kristine Moon??66??F??1955 ? Allergy/Adv: Iodine and Iodide Containing Produc (More??) Close Chest X-Ray (Signed) Marzena Starkey - 08/03/[address] (Signed) Ruddy Cardenas - 08/03/[address] (Signed) Call,Eagle - 07/31/[address] (Signed) Call,Eagle - 07/31/21 Hip X-Ray (Signed) Rosalinda Suazo - 06/26/21 Chest/Abdomen/Pelvis CT (Signed) Jesús Adorno - 06/25/21 Chest X-Ray (Signed) Jesús Adorno - 06/25/21 Hip X-Ray (Signed) Roscpauline,Jesús - 06/25/[address] (Signed) Roscpauline,Jesús - 06/25/[address] (Signed) Ingaann,Jesús - 06/25/[address] (Signed) Chase Mensah - 04/15/21 Chest CTA (Signed) Antwon Redd - 03/31/21 Vascular Ultrasound (Signed) Eagle Alonso - 03/31/21 Chest X-Ray (Signed) Lucio Macias - 01/26/21 Echocardiogram Ultrasound (Signed) LohavamonicaKamol - 01/15/21 Telemetry Strips 01/15/21 Chest/Abdomen X-ray (Signed) Rosalinda Suazo - 01/15/21 Abdomen MRI (Signed) Landon Mcbride - 01/05/[address] (Signed) Antwon Redd - 12/13/20 Chest CTA (Signed) Rosalinda Suazo - 09/18/20 Chest X-Ray (Signed) Alireza Mendoza - 09/18/20 Chest X-Ray (Signed) Rosalinda Suazo - 08/18/20 Telemetry Strips 08/17/20 Chest X-Ray (Signed) Chase Mensah - 08/17/20 Chest X-Ray (Signed) Chase Mensah - 07/10/[address] (Signed) Rosalinda Suazo - 07/09/[address] (Signed) Antwon Redd - 03/07/20 Pelvis X-Ray (Signed) Alireza Mendoza - 03/07/20 Chest X-Ray (Signed) Alireza Mendoza - 03/07/[address] (Signed) Alireza Mendoza - 03/07/[address] [address] [address] Scan Report Signed Patient: Kristine Moon MR#: [id number] : 1955 Acct:[id number] Age/Sex: 66 / F Date of Service: 08/03/21 Loc: ED Accession Number: [id number] ?? Procedure: CT head/brain wo con Ordering Provider: Bruce Nguyễn D.O. PROCEDURE:? CT HEAD/BRAIN WO CON ? INDICATIONS:? altered ? TECHNIQUE:? Noncontrast 4.5 mm thick angled axial sections acquired from the foramen magnum to the vertex, with coronal and sagittal reformats.? For radiation dose reduction, the following was used:? automated exposure control, adjustment of mA and/or kV according to patient size.? ? COMPARISON:? [facility], CT, CT HEAD/BRAIN WO CON, 07/31/2021, 12:34. ? FINDINGS:? Image quality:? Excellent.? ? CSF spaces:? Basal cisterns are patent.? No extra-axial fluid collections.? The ventricles are symmetric in size and shape.? ? Brain:? No intracranial bleeds or masses.? There is cerebral volume loss for age, with resultant ventricular and sulcal prominence.? There are periventricular and deep white matter chronic small vessel ischemic changes.? There is intracranial internal carotid artery atherosclerosis.? ? Skull and face:? Calvarium and visualized facial bones appear intact, without s uspicious lesions.? ? Sinuses:? Visualized sinuses and mastoids are clear.? ? IMPRESSION:? No acute intracranial abnormality. ? ? Dictated by: Ruddy Cardenas M.D. on 08/03/2021 at 13:05 ? ? Approved by: Ruddy Cardenas M.D. on 08/03/2021 at 13:07 ? Chest x-ray: Radiologist's Impression: [address] [address] XRay Report Signed Patient: Kristine Moon MR#: [id number] : 1955 Acct:[id number] Age/Sex: 66 / F Date of Service: 08/03/21 Loc: ED Accession Number: [id number] ?? Procedure: XR chest 1V Ordering Provider: Bruce Nguyễn D.O. PROCEDURE:? XR CHEST 1V ? INDICATIONS:? altered, weakness ? TECHNIQUE:? One view of the chest was acquired.? ? COMPARISON:? [facility], CR, XR CHEST 1V, 06/25/2021, 22:14. ? FINDINGS:? ? Surgical changes and devices:? None.? ? Lungs and pleura:? Lungs are clear.? No pleural effusions or pneumothorax.? ? Mediastinum:? Mediastinal contours appear normal.? Heart size is enlarged, as before. ? Bones and chest wall:? No suspicious bony lesions.? Overlying soft tissues a ppear unremarkable.? ? IMPRESSION:? Cardiomegaly.? No acute pulmonary findings. ? ? Dictated by: Marzena Starkey M.D. on 08/03/2021 at 13:20 ? ? Approved by: Marzena Starkey M.D. on 08/03/2021 at 13:20 ? Discharge Plan Departure Patient Disposition: Admitted as Observation Clinical Impression: Brain TIA Admit Date/Time: 08/03/21 15:46 Admit Provider: Eliana Wolf
[2021-08-03 13:22] LABS: Add Manual Diff / Slide Review NO; Basophils Absolute Auto 100 /uL (0-100); Basophils Percent Auto 0.7 % (0-2); Eosinophils Absolute Auto 100 /uL (0-450); Eosinophils Percent Auto 0.9 % (2-4); Hematocrit 29.6 % (36-46); Hemoglobin 9.4 g/dL (12.0-16.0); Lymphocytes Absolute Auto 1500 /uL (1100-4500); Lymphocytes Percent Auto 19.7 % (25-40); Mean Corpuscular HGB Conc 31.8 % (30-36); Mean Corpuscular Hemoglobin 25.7 PG (26-34); Monocytes Absolute Auto 600 /uL (0-900); Monocytes Percent Auto 7.6 % (3-14); Neutrophils Absolute Auto 5400 /uL (1500-7000); Neutrophils Percent Auto 71.1 % (50-75); Platelet Count 422 X10^3/uL (150-400); Red Blood Cell Count 3.65 X10^6/uL (4.0-5.2); Red Cell Distribution Width 17.9 % (11.6-14.8); White Blood Cell Count 7.5 X10^3/uL (4.5-11.0)
[2021-08-03 13:33] LABS: Prothrombin Time 10.8 SECONDS (10.1-12.7)
[2021-08-03 13:38] LABS: Ammonia (NH3) < 9 umol/L (9-30)
[2021-08-03] MEDS: SODIUM CHLORIDE 0.9% 1,000 ML 150 ML IV (15:00)
[2021-08-03 15:06] LABS: Acetaminophen < 10 ug/mL (10-30); Alanine Aminotransferase 12 IU/L (<35); Albumin 3.2 g/dL (3.5-5.0); Albumin Globulin Ratio 0.8 (1.0-2.8); Alkaline Phosphatase 106 U/L (38-126); Aspartate Aminotransferase 18 IU/L (14-36); BUN Creatinine Ratio 16.1 (6-22); Blood Urea Nitrogen 30 mg/dL (7-17); Calcium 8.3 mg/dL (8.4-10.2); Carbon Dioxide 17 mmol/L (22-32); Chloride 109 mmol/L (98-107); Creatine Kinase 28 U/L (30-135); Estimated Glomerular Filt Rate 27.2 mL/min (>60); Ethanol (ETOH) < 10 mg/dL; Globulin 3.9 g/dL (1.7-4.1); Glucose 386 mg/dL (80-110); HEMOLYSIS < 15 (0-50); Potassium 4.5 mmol/L (3.4-5.1); Salicylate < 1.0 mg/dL (<20); Sodium 136 mmol/L (137-145); Total Protein 7.1 g/dL (6.3-8.2)
[2021-08-03 15:10] LABS: Bilirubin Total 0.3 mg/dL (0.2-1.3)
[2021-08-03 15:12] LABS: Troponin I < 0.012 ng/mL (0.01-0.034)
[2021-08-03 15:14] LABS: COVID19 -Nasal RAPID Negative (Negative)
[2021-08-03 15:36] LABS: Bilirubin Unconjugated 0.2 mg/dL (0.0-1.1)
[2021-08-03 16:04] LABS: Thyroid Stimulating Hormone 1.42 uIU/mL (0.47-4.68)
--- NOTE | 2021-08-03 17:17 | PC.NURSE ---
Addendum entered by Alice Lama R.N. 08/03/21 19:23: Patient back on unit from CT and MRI. Remains saline locked. Bed alarm on. Remains NPO until OK'd by . Addendum entered by Alice Lama R.N. 08/03/21 17:47: Patient currently NPO until CT of abdomen is completed. Original Note: Patient arrived to Acute Care at 1616, A/O to name and birthday, situation and place. Endorses pain in R leg from hip to knee. VSS. Lungs CTA. Denies chest pain, SOB, dizziness or lightheadedness. Able to follow commands and responds to questions appropriately. NS infusing at 150cc/hr in left wrist, ER order, confirmed with Dr. Wolf to continue fluids. ADA diet, and tele also ordered. BT active x 4, patients reports last BM 08/02. Skin warm, dry and intact, various bruises noted from previous IV attempts and insulin injection sites. reports patient is incontinent of urine. At this time brief is in place and dry. Call light in reach. Bed alarm is on. Patient is high fall risk due to previous fall.
--- NOTE | 2021-08-03 17:59 | DI.MRI.S_ITS ---
PROCEDURE: MR HEAD/BRAIN WO CON INDICATIONS: r/o stroke TECHNIQUE: Non-contrast axial T1 spin echo, axial T2 fast spin echo, sagittal and axial FLAIR, coronal T2 fast spin echo, axial gradient echo, axial diffusion and ADC through the brain. COMPARISON: [facility], CT, CT HEAD/BRAIN WO CON, 08/03/2021, 12:57. [facility], MR, MR BRAIN WITHOUT CONTRAST, 07/10/2020, 14:21. FINDINGS: Image quality: Excellent. CSF spaces: Ventricles appear symmetric in size and shape. Basal cisterns are patent. No extra-axial fluid collections. Brain: No intracranial bleeds or mass effects. There is cerebral volume loss for age. There are severe periventricular and deep white matter chronic small vessel ischemic changes. Brainstem appears normal. Diffusion-weighted images show no acute ischemic insults. No chronic ischemic insults. Normal intravascular flow voids are present. Skull and face: Calvarial bone marrow is normal in signal. Orbits are normal. Sinuses: Sinuses and mastoids are clear. IMPRESSION: 1. Age-related volume loss and severe small vessel ischemic change 2. No evidence of acute stroke, hemorrhage, or mass. Dictated by: Chito Arroyo M.D. on 08/03/2021 at 19:34 Approved by: Chito Arroyo M.D. on 08/03/2021 at 19:36
--- NOTE | 2021-08-03 18:00 | DI.CT.S_ITS ---
PROCEDURE: CT CHEST ABD PEL WO CON INDICATIONS: fall, r/o rib fracture/splenic hemorrhage TECHNIQUE: After the administration of oral contrast, 5 mm thick sections acquired from the lung apices to the symphysis pubis. 5 mm thick coronal and sagittal reformats acquired, with additional 7 mm coronal MIP reformats through the lungs. For radiation dose reduction, the following was used: automated exposure control, adjustment of mA and/or kV according to patient size. COMPARISON: [facility], CT, CT CHEST ABD PEL WO CON, 06/26/2021, 0:06. FINDINGS: Image quality: Excellent. CHEST: Lungs and pleura: No acute pulmonary opacities. No pleural effusions or pneumothorax. Central and peripheral airways are patent are normal in caliber. Mediastinum: Heart size is normal. No pericardial effusion. Coronary artery calcifications. Great vessel origin calcifications. No mediastinal adenopathy by CT size criteria. Thoracic aorta and central pulmonary arteries are normal in size. Esophagus is normal in caliber. No hiatal hernia. Chest wall: No axillary or supraclavicular adenopathy by size criteria. Multiple old left rib fractures. No acute displaced rib fractures noted.1 Thyroid gland is unremarkable as visualized . ABDOMEN: Solid organs: Cirrhosis, ascites, as before. Gallbladder is surgically absent. Air is present in the biliary tree, as before.. Extensive pancreatic calcifications consistent with extensive changes of chronic pancreatitis. Spleen is normal in size. No adrenal nodules. Both kidneys are normal in size, without hydronephrosis or nephrolithiasis. Peritoneum and bowel: Small and large bowel loops are normal in caliber and wall thickness. No free fluid or air. Nodes and vessels: No retroperitoneal or mesenteric adenopathy by size criteria. Aorta and inferior vena cava are normal in size. Extensive atherosclerotic calcifications of the aorta and iliacs. Miscellaneous: No ventral hernias. PELVIS: Genitourinary: Bladder wall thickness is normal. Miscellaneous: No inguinal hernias or adenopathy. Bones: No suspicious bony lesions. No acute vertebral body compression fractures. Bilateral total hip arthroplasties. Old compression fractures of T9, T10, and T11. IMPRESSION: 1. Extensive chronic findings, which include the following: Cardiomegaly, coronary artery disease, ASCVD, extensive peripheral vascular disease, cirrhosis, ascites, chronic pancreatitis, multiple old compression fractures. 2. There are also old left rib fractures. 3. In the setting of these chronic findings, although it is possible to miss findings related to acute trauma, there is no evidence of sequelae of acute trauma in the chest, abdomen, and pelvis. Dictated by: Chito Arroyo M.D. on 08/03/2021 at 18:43 Approved by: Chito Arroyo M.D. on 08/03/2021 at 18:50
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
[2021-08-03 18:33] LABS: Appearance Urine UA CLEAR; Bilirubin Urine UA NEGATIVE (NEGATIVE); Color Urine UA YELLOW; Glucose Urine UA 2+ g/dL (Negative); Ketones Urine UA NEGATIVE (NEGATIVE); Leukocyte Esterase Urine UA NEGATIVE (NEGATIVE); Nitrite Urine UA NEGATIVE (Negative); Occult Blood Urine UA TRACE-LYSED (Negative); Protein Urine UA 3+ (Negative); Urobilinogen Urine UA 0.2 E.U./dL (0.2)
[2021-08-03 18:38] LABS: UR Morphine/Opiate cutoff 300 Negative (Negative); Ur Creatinine Normal (Normal); Ur Specific Gravity Normal (Normal); Urine Amphetamines Negative (Negative); Urine Barbiturates Negative (Negative); Urine Benzodiazepines Negative (Negative); Urine Cocaine Negative (Negative); Urine MDMA Negative (Negative); Urine Methadone Negative (Negative); Urine Methamphetamines Negative (Negative); Urine Oxycodone Negative (Negative); Urine Phencyclidine Negative (Negative); Urine Tetrahydrocannabinol Negative (Negative); Urine Tricyclic Antidepressant Negative (Negative); Urine pH Normal (Normal)
[2021-08-03 18:46] LABS: Bacteria Urine Few (2-10); Culture Indicated Urine Cult Not Indicated; RBC Urine 0-1/HPF (0-5/HPF); Squamous Epithelial Cell Urine 1-5 /HPF (0-5/HPF); WBC Urine 1-5/HPF (0-5/HPF)
[2021-08-03] MEDS: ACETAMINOPHEN 325 MG TABLET 650 MG PO (20:18)
[2021-08-03] MEDS: ATORVASTATIN 20 MG TABLET 40 MG PO (20:18)
[2021-08-03] MEDS: HEPARIN 5,000 UNIT/ML VIAL 5000 UNIT SUBCUT (20:18)
[2021-08-03] MEDS: INSULIN LISPRO 100 UNIT/ML 3ML VIAL SUBCUT (21:52)
[2021-08-03] MEDS: INSULIN GLARGINE 100 UNIT/ML 3ML PEN 10 UNIT SUBCUT (21:54)
[2021-08-04 01:00] VITALS: BP 137/72; PULSE 80; RESP 18; TEMP 36.5; O2SAT 96; O2SAT 97
[2021-08-04 05:00] VITALS: BP 128/74; PULSE 76; RESP 18; TEMP 36.9; O2SAT 97; O2SAT 99
[2021-08-04 05:57] LABS: Add Manual Diff / Slide Review NO; Basophils Absolute Auto 0 /uL (0-100); Basophils Percent Auto 0.4 % (0-2); Eosinophils Absolute Auto 100 /uL (0-450); Eosinophils Percent Auto 2.1 % (2-4); Hematocrit 25.5 % (36-46); Lymphocytes Absolute Auto 1600 /uL (1100-4500); Lymphocytes Percent Auto 25.7 % (25-40); Mean Corpuscular HGB Conc 31.4 % (30-36); Mean Corpuscular Volume 82.6 fL (80-100); Monocytes Absolute Auto 800 /uL (0-900); Neutrophils Absolute Auto 3800 /uL (1500-7000); Neutrophils Percent Auto 59.8 % (50-75); Platelet Count 387 X10^3/uL (150-400); Red Blood Cell Count 3.09 X10^6/uL (4.0-5.2); Red Cell Distribution Width 17.4 % (11.6-14.8); White Blood Cell Count 6.3 X10^3/uL (4.5-11.0)
[2021-08-04 06:13] LABS: Alanine Aminotransferase 9 IU/L (<35); Albumin 2.7 g/dL (3.5-5.0); Albumin Globulin Ratio 0.7 (1.0-2.8); Alkaline Phosphatase 85 U/L (38-126); Aspartate Aminotransferase 16 IU/L (14-36); BUN Creatinine Ratio 17.2 (6-22); Bilirubin Total 0.3 mg/dL (0.2-1.3); Blood Urea Nitrogen 30 mg/dL (7-17); Calcium 8.3 mg/dL (8.4-10.2); Carbon Dioxide 15 mmol/L (22-32); Chloride 114 mmol/L (98-107); Estimated Glomerular Filt Rate 29.4 mL/min (>60); Globulin 3.7 g/dL (1.7-4.1); Glucose 156 mg/dL (80-110); HEMOLYSIS < 15 (0-50); Potassium 3.8 mmol/L (3.4-5.1); Sodium 137 mmol/L (137-145); Total Protein 6.4 g/dL (6.3-8.2)
[2021-08-04] MEDS: ACETAMINOPHEN 325 MG TABLET 650 MG PO (06:16)
[2021-08-04] MEDS: PANTOPRAZOLE DR 20 MG TABLET PO (06:16)
--- NOTE | 2021-08-04 06:52 | PC.NURSE ---
Addendum entered by Nancy Valerio R.N. 08/04/21 07:05: morning labs phoned to MD: RBC 3.09 h/h 8.0/25.5 down from previous labwork. notified Martín, and Dr. Wolf. Original Note: new admit on day shift. OBS status. patient is alert, oriented to self, year, place (correctly identified the current president) and situation. did not recall accurate month/day. royer thought i was losing my mind. denies pain/discomfort. 1pa ADL assistance and bed mobility. CT head/brain negative. d/c NPO status. ([employer]/hospitalist will f/u) L hand PIV is bothersome to patient, reinforced w/ soft netting. patient states this is helpful, no further c/o. glucocheck at HS 364, lantus and SSI given per order. ice water available at bedside. Bed alarm on, call light w/in reach.
[2021-08-04 07:45] VITALS: BP 120/75; PULSE 69; RESP 18; TEMP 36.7; O2SAT 98
[2021-08-04] MEDS: OXYBUTYNIN 5 MG TABLET PO (10:12)
[2021-08-04] MEDS: AMLODIPINE 5 MG TABLET 10 MG PO (10:12)
[2021-08-04] MEDS: HEPARIN 5,000 UNIT/ML VIAL 5000 UNIT SUBCUT (10:13)
[2021-08-04] MEDS: lisinopriL 20 MG TABLET 40 MG PO (10:13)
[2021-08-04] MEDS: INSULIN LISPRO 100 UNIT/ML 3ML VIAL SUBCUT (10:14)
--- NOTE | 2021-08-04 10:45 | PC.NURSE ---
Assess- Patient is plesant, alert and oriented x2. She is a one to two person assist to get up out of bed. She has some bruises on her arms from iv starts. BS 132, given 1u of insulin. Patient is visiting with her now and she ate decent at breakfast.
--- NOTE | 2021-08-04 10:56 | P.DS_ITS ---
History of Present Illness History of Present Illness Date Patient Seen: 08/04/21 Time Patient Seen: 10:56 Chief complaint: Confusion when she woke,now baseline,LKW 1800 Narrative: The patient is a 66-year-old female with a history of chronic kidney disease, peptic ulcer disease, diastolic heart failure, hypertension, type 2 diabetes, gastroparesis, chronic anemia, vascular diff dementia, who is status post a hip fracture. She was at subacute rehab and just returned home about 1 week ago. The patient had a fall 3 days prior to admission and was evaluated in the emergency room. Her head CT at that time was negative. Patient was discharged home. She is brought in today by medics because she awoke today and was quite confused. Her was in the kitchen and she did not recognize him. It appeared to last for a brief period of time and then resolved. She had no numbness tingling or weakness with it. She had no loss of consciousness with it. She had no tonic clonic activity associated as well. She does recall being confused. States that she thought the man in the kitchen who was are with someone else. She has had no fever no chills no shortness of breath no chest pain or other symptoms. The patient does have some right-sided chest pain and right upper quadrant pain after her fall. It only hurts with palpation or with sitting. She has a previous rib fracture. The patient underwent a head CT in the emergency room. Head CT negative for any intracranial abnormality. Chest x-ray revealed no acute pulmonary findings. Patient is admitted to the hospital for evaluation of acute confusion, and right upper quadrant pain. White count 7.5, hemoglobin 9 0.6/29, sodium 136, chloride 109, potassium 4.5, CO2 17, BUN 30, creatinine 1.86, glucose is 386. Troponin 0.012. Albumin 3.2, TSH 1.42, prolactin 16, UA negative. Discharge Providers Provider Date of admission: 08/03/21 15:46 Discharge Date: 08/04/21 Primary care physician: GARY Scott Discharge provider: Eliana Wolf MD Summary Hospital Course Discharge Diagnosis: 1. Acute encephalopathy, resolved 2. Vascular dementia 3. Hypertension 4. Cirrhosis 5. Hyperlipidemia 6. Type 2 diabetes 7. GERD 8. Anemia, likely multifactorial, suspect chronic 9. Stage 4 chronic kidney disease Hospital Course: Patient was admitted to the hospital after an episode of acute confusion. She was no longer confused by the time she arrived to the hospital. As she is had of fall prior to admission head CT was obtained in the emergency room. Head CT was negative for any acute bleed. The patient underwent a head MRI to rule out of stroke. MRI of the brain was negative. In addition she complained of pain in the right upper quadrant there was concern regarding rib fractures verses a splenic contusion. CT of the abdomen and pelvis revealed no new fractures, no splenic contusion, no intra-abdominal abnormalities. Patient does have cirrhosis, she did have some ascites on CT scan, she has some minimal abdominal distension which is not symptomatic. Patient was awake alert in her usual s hernandez. He was deemed appropriate for discharge. Arrangements were made for her to discharge home. Status at Discharge Cognitive/behavioral status at discharge: oriented Functional status at discharge: uses cane/walker Overall status at discharge: patient is back to baseline Exam Vital Signs (past 8 hours): - 08/04/21 05:00 08/04/21 07:45 Temperature 98.4 F 98.1 F Pulse Rate 76 69 Respiratory Rate 18 18 Blood Pressure 128/74 120/75 Pulse Oximetry 97 98 Oxygen Delivery Method Room Air Oxygen Flow Rate 0 Narrative Exam Narrative: Pleasant female sitting in a chair in no obvious distress Resp Other: Lungs clear to auscultation Cardio Other: Cardiac exam: Regular rate and rhythm normal S1-S2 GI Other: Abdomen: Soft, nontender, mild fluid wave noted Extrem Other: No edema Objective Labs Result Diagrams: 08/04/21 05:20 08/04/21 05:20 Labs: Laboratory Results - last 24 hr 08/03/21 08/03/21 08/03/21 13:10 13:10 13:10 WBC 7.5 RBC 3.65 L Hgb 9.4 L Hct 29.6 L MCV 81.0 MCH 25.7 L MCHC 31.8 RDW 17.9 H Plt Count 422 H Neut % (Auto) 71.1 Lymph % (Auto) 19.7 L [place] % (Auto) 7.6 Eos % (Auto) 0.9 L Baso % (Auto) 0.7 Neut # (Auto) 5400 Lymph # (Auto) 1500 [place] # (Auto) 600 Eos # (Auto) 100 Baso # (Auto) 100 PT 10.8 INR 1.0 Sodium Potassium Chloride Carbon Dioxide BUN Creatinine Estimated GFR BUN/Creatinine Ratio Glucose Lactate 2.0 Calcium Total Bilirubin Conjugated Bilirubin Unconjugated Bilirubin AST ALT Alkaline Phosphatase Ammonia Total Creatine Kinase CK-MB (CK-2) CK-MB (CK-2) Rel Index Troponin I Total Protein Albumin Globulin Albumin/Globulin Ratio TSH Prolactin Urine Color Urine Appearance Urine pH Ur Specific [place] Urine Protein Urine Glucose (UA) Urine Ketones Urine Occult Blood Urine Nitrate Urine Bilirubin Urine Urobilinogen Ur Leukocyte Esterase Urine RBC Urine WBC Ur Squamous Epith Cells Urine Bacteria Ur Culture Indicated? Salicylates U Opiates 300ng/mL cut Ur Oxycodone Screen Urine Methadone Screen Acetaminophen Ur Barbiturates Screen U Tricyclic Antidepress Ur Phencyclidine Scrn Ur Amphetamines Screen U Methamphetamines Scrn Ur MDMA Scrn (Ecstasy) U Benzodiazepines Scrn Urine Cocaine Screen U Marijuana (THC) Screen Ethyl Alcohol SARS-CoV-2 (PCR) 08/03/21 08/03/21 08/03/21 13:10 13:10 14:00 WBC RBC Hgb Hct MCV MCH MCHC RDW Plt Count Neut % (Auto) Lymph % (Auto) [place] % (Auto) Eos % (Auto) Baso % (Auto) Neut # (Auto) Lymph # (Auto) [place] # (Auto) Eos # (Auto) Baso # (Auto) PT INR Sodium 136 L Potassium 4.5 Chloride 109 H Carbon Dioxide 17 L BUN 30 H Creatinine 1.86 H Estimated GFR 27.2 L BUN/Creatinine Ratio 16.1 Glucose 386 H Lactate Calcium 8.3 L Total Bilirubin 0.3 Conjugated Bilirubin 0.0 Unconjugated Bilirubin 0.2 AST 18 ALT 12 Alkaline Phosphatase 106 Ammonia < 9 L Total Creatine Kinase 28 L CK-MB (CK-2) TNP CK-MB (CK-2) Rel Index TNP Troponin I < 0.012 Total Protein 7.1 Albumin 3.2 L Globulin 3.9 Albumin/Globulin Ratio 0.8 L TSH 1.42 Prolactin 16.0 Urine Color Urine Appearance Urine pH Ur Specific [place] Urine Protein Urine Glucose (UA) Urine Ketones Urine Occult Blood Urine Nitrate Urine Bilirubin Urine Urobilinogen Ur Leukocyte Esterase Urine RBC Urine WBC Ur Squamous Epith Cells Urine Bacteria Ur Culture Indicated? Salicylates < 1.0 U Opiates 300ng/mL cut Ur Oxycodone Screen Urine Methadone Screen Acetaminophen < 10 L Ur Barbiturates Screen U Tricyclic Antidepress Ur Phencyclidine Scrn Ur Amphetamines Screen U Methamphetamines Scrn Ur MDMA Scrn (Ecstasy) U Benzodiazepines Scrn Urine Cocaine Screen U Marijuana (THC) Screen Ethyl Alcohol < 10 SARS-CoV-2 (PCR) 08/03/21 08/03/21 08/03/21 14:00 18:11 18:11 WBC RBC Hgb Hct MCV MCH MCHC RDW Plt Count Neut % (Auto) Lymph % (Auto) [place] % (Auto) Eos % (Auto) Baso % (Auto) Neut # (Auto) Lymph # (Auto) [place] # (Auto) Eos # (Auto) Baso # (Auto) PT INR Sodium Potassium Chloride Carbon Dioxide BUN Creatinine Estimated GFR BUN/Creatinine Ratio Glucose Lactate Calcium Total Bilirubin Conjugated Bilirubin Unconjugated Bilirubin AST ALT Alkaline Phosphatase Ammonia Total Creatine Kinase CK-MB (CK-2) CK-MB (CK-2) Rel Index Troponin I Total Protein Albumin Globulin Albumin/Globulin Ratio TSH Prolactin Urine Color Yellow Urine Appearance Clear Urine pH 5.0 Ur Specific [place] 1.020 Urine Protein 3+ H Urine Glucose (UA) 2+ H Urine Ketones Negative Urine Occult Blood Trace-lysed Urine Nitrate Negative Urine Bilirubin Negative Urine Urobilinogen 0.2 Ur Leukocyte Esterase Negative Urine RBC 0-1/hpf Urine WBC 1-5/hpf Ur Squamous Epith Cells 1-5 /hpf Urine Bacteria Few (2-10) H Ur Culture Indicated? Cult not indicated Salicylates U Opiates 300ng/mL cut Negative Ur Oxycodone Screen Negative Urine Methadone Screen Negative Acetaminophen Ur Barbiturates Screen Negative U Tricyclic Antidepress Negative Ur Phencyclidine Scrn Negative Ur Amphetamines Screen Negative U Methamphetamines Scrn Negative Ur MDMA Scrn (Ecstasy) Negative U Benzodiazepines Scrn Negative Urine Cocaine Screen Negative U Marijuana (THC) Screen Negative Ethyl Alcohol SARS-CoV-2 (PCR) Negative 08/04/21 08/04/21 05:20 05:20 WBC 6.3 RBC 3.09 L Hgb 8.0 L Hct 25.5 L MCV 82.6 MCH 26.0 MCHC 31.4 RDW 17.4 H Plt Count 387 Neut % (Auto) 59.8 Lymph % (Auto) 25.7 [place] % (Auto) 12.0 Eos % (Auto) 2.1 Baso % (Auto) 0.4 Neut # (Auto) 3800 Lymph # (Auto) 1600 [place] # (Auto) 800 Eos # (Auto) 100 Baso # (Auto) 0 PT INR Sodium 137 Potassium 3.8 Chloride 114 H Carbon Dioxide 15 L BUN 30 H Creatinine 1.74 H Estimated GFR 29.4 L BUN/Creatinine Ratio 17.2 Glucose 156 H D Lactate Calcium 8.3 L Total Bilirubin 0.3 Conjugated Bilirubin Unconjugated Bilirubin AST 16 ALT 9 Alkaline Phosphatase 85 Ammonia Total Creatine Kinase CK-MB (CK-2) CK-MB (CK-2) Rel Index Troponin I Total Protein 6.4 Albumin 2.7 L Globulin 3.7 Albumin/Globulin Ratio 0.7 L TSH Prolactin Urine Color Urine Appearance Urine pH Ur Specific [place] Urine Protein Urine Glucose (UA) Urine Ketones Urine Occult Blood Urine Nitrate Urine Bilirubin Urine Urobilinogen Ur Leukocyte Esterase Urine RBC Urine WBC Ur Squamous Epith Cells Urine Bacteria Ur Culture Indicated? Salicylates U Opiates 300ng/mL cut Ur Oxycodone Screen Urine Methadone Screen Acetaminophen Ur Barbiturates Screen U Tricyclic Antidepress Ur Phencyclidine Scrn Ur Amphetamines Screen U Methamphetamines Scrn Ur MDMA Scrn (Ecstasy) U Benzodiazepines Scrn Urine Cocaine Screen U Marijuana (THC) Screen Ethyl Alcohol SARS-CoV-2 (PCR) PFSH Medical History Acute on chronic diastolic heart failure Anemia Dow's esophagus with esophagitis Bilateral lower extremity edema CKD (chronic kidney disease) stage 3, GFR 30-59 ml/min CVA (cerebral vascular accident) (~2017) Dementia Diabetes Fractures Gallbladder disease GERD (gastroesophageal reflux disease) GERD (gastroesophageal reflux disease) History of urinary incontinence (~2017) Hyperlipidemia Hypertension Overactive bladder Partial blindness Post-menopausal Screening for malignant neoplasm of colon Subdural hematoma Swelling of left lower extremity Upper GI bleed Vision disorder Surgical History Anesthesia History of cholecystectomy History of hip replacement (~2019) History of surgery on arm Tubal ligation status Family History Mother Heart disease Father No problems noted. Sister Cancer Social History marital status: household members: significant other caregiver/support person: Yes Smoking Status: Former smoker alcohol intake: former Discharge Assessment & Plan Assessment and Plan Assessment: 1.Acute encephalopathy, resolved 2. Vascular dementia 3. Hypertension 4. Cirrhosis 5. Hyperlipidemia 6. Type 2 diabetes 7. GERD 8. Anemia, likely multifactorial, suspect chronic 9. Stage 4 chronic kidney disease Plan of Treatment: Discharge home Follow-up with PCP in 1 week Discharge Plan Discharge Plan Patient Disposition: Home Discharge orders & Medications Prescriptions: Continued amlodipine 10 mg tablet 10 mg PO DAILY Qty: 90 2RF atorvastatin [Lipitor] 20 mg tablet 40 mg PO BEDTIME Qty: 90 2RF insulin aspart U-100 [Novolog Flexpen U-100 Insulin] 100 unit/mL (3 mL) insulin pen 1 sliding scale dose subcut QIDACHS Qty: 15 2RF Lantus Solostar U-100 Insulin 100 unit/mL (3 mL) insulin pen 12 unit SUBCUT QPM Qty: 15 2RF sucralfate [Carafate] 1 gram tablet 1 g PO QID Qty: 360 2RF cholecalciferol (vitamin D3) [Vitamin D3] 1,000 unit Capsule 1,000 unit PO BID 0RF cyanocobalamin (vitamin B-12) [Vitamin B-12] 1,000 mcg Tablet 1,000 mcg PO DAILY 0RF lisinopril 20 mg Tablet 40 mg PO DAILY 0RF pantoprazole [Protonix] 20 mg Tablet,Delayed Release (Dr/Ec) 20 mg PO DAILY 0RF oxybutynin chloride 5 mg Tablet Extended Release 24hr 5 mg PO DAILY 0RF omeprazole 20 mg Capsule,Delayed Release(Dr/Ec) 20 mg PO DAILY 0RF methocarbamol 500 mg Tablet 500 mg PO TID PRN (Reason: Muscle Spasm) Qty: 20 0RF sennosides [senna] 8.6 mg Tablet 8.6 mg PO DAILY Qty: 20 0RF polyethylene glycol 3350 17 gram Powder In Packet 17 gm PO DAILY Qty: 20 0RF bisacodyl 10 mg Suppository 10 mg OK DAILY PRN (Reason: Constipation) Qty: 30 0RF docusate sodium 100 mg Capsule 100 mg PO BID Qty: 30 0RF oxycodone 5 mg Tablet 5 mg PO Q3HR PRN (Reason: Pain, Moderate (4-6)) Qty: 20 0RF Discontinued enoxaparin [Lovenox] 30 mg/0.3 mL Syringe 30 mg SUBCUT DAILY Qty: 10 0RF Rx Instructions: TO END 07/31/2021 No Action (DME) Glucose Test strips See Rx Instructions .Route .MEDSUPPLY Qty: 100 11RF Rx Instructions: Use to test blood sugars four times daily. (DME) Briefs Misc See Rx Instructions .Route Qty: 50 6RF Rx Instructions: Use daily and as needed for urinary incontinence Follow up/Referrals: Joanna Pérez ARNP [Primary Care Provider] - Discharge Health Status Multidrug resistant organism: No MDRO Diet/Activity/Treatments Diet: Carb-consistent/Diabetic, Low-sodium and Low-cholesterol Activity: as tolerated Discharge Data Primary Care Provider: Joanna Pérez Attending Provider: Eliana Wolf
[2021-08-04 11:45] VITALS: BP 134/73; PULSE 74; RESP 18; TEMP 36.4; O2SAT 98
--- NOTE | 2021-08-04 12:53 | CM.DPNOTE ---
Faxed snf referral packet to [facility] and received fax conf. Moraima Soriano CM Assist.
--- NOTE | 2021-08-04 13:24 | OT.IP.EVAL ---
Past Medical History (Last Reviewed 08/03/21 @ 18:12 by Eliana Wolf MD) Acute on chronic diastolic heart failure Anemia Dow's esophagus with esophagitis Bilateral lower extremity edema CKD (chronic kidney disease) stage 3, GFR 30-59 ml/min CVA (cerebral vascular accident) (~2017) Dementia Diabetes Fractures Gallbladder disease GERD (gastroesophageal reflux disease) GERD (gastroesophageal reflux disease) History of cholecystectomy History of hip replacement (~2019) History of surgery on arm History of urinary incontinence (~2017) Hyperlipidemia Hypertension Overactive bladder Partial blindness Post-menopausal Screening for malignant neoplasm of colon Subdural hematoma Swelling of left lower extremity Tubal ligation status Upper GI bleed Vision disorder Surgical History (Last Reviewed 08/03/21 @ 13:42 by Bruce Nguyễn DO) Anesthesia History of cholecystectomy History of hip replacement (~2019) History of surgery on arm Tubal ligation status Occupational Therapy Inpatient Evaluation/Re-Eval M1 PT/OT-IP Prior Functional Status Start: 08/04/21 14:00 Freq: NEEDED Status: Discharge Protocol: Document 08/04/21 14:07 CGR (Rec: 08/04/21 14:25 CGR [id number]) Medical Review Prior Functional Status Medical History Reviewed Yes Communication Pt is an effective verbal communicator. Mobility and Gait Pt was MOD I for mobility with the 2ww Activities of Daily Living and IADL's Pt needs assist with bathing, dressing, toileting (sometimes ), and all IADLs. Prior Functional Level (Other details) Pt's partner Pablo is very supportive and is home all the time unless the caregiver, Yeimi, is there. Yeimi comes in 5 days a week for 5 hours a day. Social History Household Members significant other Living Arrangements House Number of Floors (Floors) One Floor Number of Stairs To Enter/Railing? 1 step to enter Home Environment Standard Height Toilet,Tub/ Shower Home Equipment Front Wheel Walker,Four Wheel Walker,Bedside Commode,Tub Transfer Bench,Hand Held Shower,Grab Bars Near Toilet, Grab Bars In Shower Employment Status Retired Additional Social History Comment Pt typically uses the BSC at home. M2 OT-IP Current Condition Start: 08/04/21 14:00 Freq: Status: Discharge Protocol: Document 08/04/21 14:07 CGR (Rec: 08/04/21 14:25 CGR [id number]) Occupational Therapy Current Condition Current Condition Evaluation Date 08/04/21 Treatment Diagnosis AMS Diagnosis Onset Date 08/03/21 M3 OT- IP Subjective and Pain Start: 08/04/21 14:00 Freq: Status: Discharge Protocol: Document 08/04/21 14:07 CGR (Rec: 08/04/21 14:25 CGR [id number]) OT- Subjective Occupational Therapy Visit Type Type Initial Evaluation Visit Start Time 12:54 Visit Stop Time 13:24 Total Visit Minutes 30 Notes Pt's partner Pablo present throughout OT Pain Assessment Pain When Pain Assessed At Rest Pain Present Pain Present Pain Reported Location Right Leg Intensity 2 Scale Used Numeric (0 - 10) Management Techniques Distraction,Modification of Treatment,Re-positioning M4 OT- IP ADL's Start: 08/04/21 14:00 Freq: Status: Discharge Protocol: Document 08/04/21 14:07 CGR (Rec: 08/04/21 14:25 CGR [id number]) OT [id number] Comments OT Self-Feeding Comments Not meal time but pt reports eating her lunch without difficulty OT ADL-Grooming Comments OT Grooming Comments Not performed OT ADL-Oral Care Comments Oral Care Comments Not performed OT ADL-Dressing General Eval Lower Body Dressing Ability Total Assistance Areas Needing Assistance Socks Comments OT Dressing Comments at baseline OT ADL-Toileting General Evaluation Toileting Ability Standby Assistance Comments OT Toileting Comments simulated toileting while seated on toilet OT ADL-Bathing Comments OT Bathing Comments Not performed M5 OT- IP IADL's Start: 08/04/21 14:00 Freq: Status: Discharge Protocol: Document 08/04/21 14:07 CGR (Rec: 08/04/21 14:25 R [id number]) OT-Instrumental Activities of Daily Living Deficits IADL Deficits Identified Deficits Home Safety Awareness Awareness of Need for Assistance at Home Decreased Awareness Ability to Problem Solve Emergency Unable to Problem Solve Situations Medication Management Medication Management Caregiver Administers Money Management Money Management Caregiver Provides Assistance Meal Preparation Meal Preparation Caregiver Provides Assist Striper Spray Gun Striper Spray Gun Caregiver Provides Assist Driving Driving Comments Pt does not drive M6 OT- IP Functional Cognition Start: 08/04/21 14:00 Freq: Status: Discharge Protocol: Document 08/04/21 14:07 CGR (Rec: 08/04/21 14:25 CGR [id number]) Cognitive Factors Limiting Selfcare Function Cognitive Ability Level of Alertness Alert Patient Orientation Name,Age,Month,Day of Week, Place,Situation Attention Span Ability Capable of Focused Attention, Capable of Sustained Attention Ability to Follow Commands Able to Follow One Step Commands with Increased Time, Able to Follow One Step Commands with Repetition Cognitive Tests SLUMS Pt scored a 10/30 on the SLUMS . She was unable to state the year, do simple math, named 8 animals in 1 minute, was unable to emember any of the 5 objects, could sequence a 3 number chain, was able to davin the clock time correctly, and was able to answer only one of the listening comprehension questions. Cognitive Comments Cognitive Assessment Comments Pt's SLUMS score of 10/30 is well into the dementia category. Pt became tearful stating that her memory isn't good but that she isn't stupid . OT- Vision and Hearing OT- Hearing Assessment OT- Hearing Assessment WFL OT- Vision Assessment Vision History Low Vision Visual Attentiveness WFL Occular Pursuits WFL Visual Convergence WFL Vision Assessment Comments Pablo states that the pt no longer wears glasses because her diabetic retinopathy. M7 OT- IP Mobility and Balance Start: 08/04/21 14:00 Freq: Status: Discharge Protocol: Document 08/04/21 14:07 CGR (Rec: 08/04/21 14:25 CGR [id number]) OT- Bed Mobility Assessment Rolling Type of Rolling Roll to Right Level of Assistance Minimal Assistance Supine to Sit Supine to Sit Assist Minimal Assistance Sit to Supine Sit to Supine Assist Standby Assistance Scooting Scooting to Edge of Bed Standby Assistance OT-Transfer Assessment Sit to and From Stand Sit to and from Stand Minimal Assistance Transfers Transfer Ability Standby Assistance Technique Transfer Destination Bed,Chair,Toilet Transfer Technique Stand Step Pivot Devices Transfer Assistive Devices Gait Belt,Front Wheeled Walker Comments Mobility Comments Pt needs min a for sit to stand from all surfaces. OT- Gait Assessment Gait Gait Assistance Required: Standby Assistance Assistive Devices Assistive Device Gait Belt,Front Wheeled Walker Comments Gait Ability Comments mobility around the room OT- Balance Assessment Sitting Balance and Reactions Static Sitting Balance Ability Normal Dynamic Sitting Balance Ability Good M8 OT- IP Objective Assessments Start: 08/04/21 14:00 Freq: Status: Discharge Protocol: Document 08/04/21 14:07 CGR (Rec: 08/04/21 14:25 CGR [id number]) OT Gross Range of Motion Upper Extremity Range of Motion Assessment Within Functional Limits OT Strength Upper Extremity Strength Assessment Within Functional Limits Comments Strength Comments 08/22 OT- Coordination Assessment Upper Extremity Finger to Nose Test Within Functional Limits Finger Tapping Test Within Functional Limits OT-Muscle Tone Assessment Muscle Tone WNL Yes M9 OT- IP Assessment and Plan Start: 08/04/21 14:00 Freq: Status: Discharge Protocol: Document 08/04/21 14:07 CGR (Rec: 08/04/21 14:25 CGR [id number]) OT Summary Assessment and Plan Potential Rehabilitation Potential Good Analytic Complexity at Evaluation Moderate Summary OT Impairments Pain,Strength,Balance, Functional Cognition, Functional Mobility,Grooming, Dressing,Toileting,Bathing, Toilet Transfers,Shower Transfers,Activity Tolerance Progress Towards Goals Slow Progress due to Medical Issues Assessment Summary Pt presents as a moderate complexity evaluation s/p admit for confusion. Pt appears to be at or close to her baseline of needing help with some ADLs and mobility. Pt will benefit from home health for her needs. MD requesting SLUMS, pt scored 10 /30. Recommend d/c home with very attentive partner. Goals Grooming Goal Independent Dressing Goal Minimal Assistance Toileting Goal Minimal Assistance Bathing Goal Minimal Assistance Toilet Transfer Goal Independent Shower Transfer Goal Independent Days to Meet Goals 5 Frequency of Treatment Frequency Of Treatment Once a Day Treatment Plan OT Treatment Plan ADL Training,Functional Cognition Training,Functional Mobility,Patient/Family Education,Discharge Planning Discharge Recommendations OT Discharge Recommendations Home Health Transportation Needs at Discharge Private Vehicle
--- NOTE | 2021-08-04 13:34 | CM.IDA ---
Initial DCP Assessment Note Pt is a 66yo female, resident of [place], presents w/altered mental status which has since resolved; admitted observation for evaluation of acute confusion, and right upper quadrant pain PCP: Joanna Pérez Payer: [facility]/[place]ER[place] Reviewed chart, pt discussed in multidisciplinary rounds this morning. Patient discharged home today, Dr Wolf suspects this event may have been in the setting of patient's vascular dementia. Patient is s/p recent hip fx and repair, DC 07.03.21 to [facility] for rehab, has been home for one week. Spoke w/Anjelica at [facility] who explained that patient can be forgetful, requires redirection, but is easy to care for and compliant with care. [facility] would likely accept patient again for rehab if there was a need in the future. Met w/patient and partner Pablo to introduce role and review DCP today; Pablo has prepared to take patient back home. He has contacted [facility] (patient's [place] cg) to alert them patient is returning home. In addition, patient requests kay be notified that patient is returning home today Placed call to [facility]/kay , updated. Kay can resume services for patient, no needs from this CM team Plan: DC home w/partner Pablo via pov, resumption of kay services and [facility] care giving THALIA Farrell
== END 2021-08-04 13:50 | disposition home or self-care (01) ==
LOC: ED 14:27 → AC 15:48
PROVIDERS: Admitting Provider Internal Medicine; Emergency Provider Emergency Medicine; PCP Nurse Practitioner; Referring Provider Emergency Medicine; Visit Provider Internal Medicine
DX: G93.49 Other encephalopathy (principal); R07.9 Chest pain, unspecified; R10.11 Right upper quadrant pain; F01.50 Vascular dementia, unspecified severity, without behavioral disturbance, psychotic disturbance, mood disturbance, and anxiety; E78.5 Hyperlipidemia, unspecified; K74.60 Unspecified cirrhosis of liver; K21.9 Gastro-esophageal reflux disease without esophagitis; E11.22 Type 2 diabetes mellitus with diabetic chronic kidney disease; I12.9 Hypertensive chronic kidney disease with stage 1 through stage 4 chronic kidney disease, or unspecified chronic kidney disease; N18.4 Chronic kidney disease, stage 4 (severe); Z91.81 History of falling; Z87.891 Personal history of nicotine dependence; Z20.822 Contact with and (suspected) exposure to COVID-19; Z79.4 Long term (current) use of insulin
CPT/HCPCS: 36415; 70450; 70551; 71045; 71250; 74176; 80053; 80076; 80305; 80320; 80329; 81001; 82140; 82550; 82962; 83605; 84146; 84443; 84484; 85025; 85610; 87040; 87635; 93005; 93010; 96372; 97166; 97535; 99285; C9803; G0378; G0480; J1644; J1815

== ENCOUNTER 2021-08-31 12:22 | Emergency (ER) | payer MEDICARE, MEDICAID, SELFPAY ==
[2021-08-03 16:36] VITALS: BMI 22.0
[2021-08-31] VITALS (11 sets, daily range): BP systolic 117–132; BP diastolic 61–79; PULSE 76–83; RESP 17–24; TEMP 36.9; O2SAT 97–100; BMI 24.7
--- NOTE | 2021-08-31 12:42 | DI.US.S_ITS ---
PROCEDURE: US ABDOMEN LIMITED INDICATIONS: Ascites TECHNIQUE: Real-time focused scanning was performed of the abdomen, with image documentation. COMPARISON: None. FINDINGS: Large amount of ascites identified. Right lower quadrant skin marked for paracentesis. IMPRESSION: Large amount of ascites. Successful ultrasound localization for paracentesis. Dictated by: Rosalinda Suazo MD, PhD on 08/31/2021 at 13:57 Approved by: Rosalinda Suazo MD, PhD on 08/31/2021 at 13:57
--- NOTE | 2021-08-31 13:09 | ED.ABDPAIN ---
HPI - Abdominal Pain General Chief Complaint: Abdominal Pain Stated Complaint: gained 3 lbs overnight Time Seen by Provider: 08/31/21 12:42 Source: patient, family and EMS Mode of arrival: Ambulatory History of Present Illness HPI narrative: Patient is a 66-year-old female former history of alcohol abuse has been sober since 2018 now has a history of cirrhosis, hyperlipidemia, TIA, diabetes, presenting today with increased abdominal swelling. She states that she drained 3 lb overnight and her abdomen is quite distended more so than it was last week. She has no shortness of breath. Mildly confused. No fever chills or abdominal pain. She denies any chest pain palpitations or shortness of breath. Related Data Home Medications Medication Instructions Recorded Confirmed cholecalciferol (vitamin D3) 25 1,000 unit PO BID 10/08/17 08/03/21 mcg (1,000 unit) capsule (Vitamin D3) cyanocobalamin (vitamin B-12) 1,000 mcg PO DAILY 08/02/19 08/03/21 1,000 mcg tablet (Vitamin B-12) lisinopril 20 mg tablet 40 mg PO DAILY 06/25/21 08/03/21 oxybutynin chloride 5 mg 5 mg PO DAILY 06/25/21 08/03/21 tablet,extended release 24 hr pantoprazole 20 mg tablet,delayed 20 mg PO DAILY 06/25/21 08/03/21 release (Protonix) Previous Rx's Medication Instructions Recorded Glucose Test strips #100 ea 03/28/21 amlodipine 10 mg tablet 10 mg PO DAILY #90 tab 03/29/21 atorvastatin 20 mg tablet (Lipitor) 40 mg PO BEDTIME #90 tab 03/29/21 insulin aspart U-100 100 unit/mL 1 sliding scale dose SUBCUT 03/29/21 (3 mL) subcutaneous pen (Novolog QIDACHS #15 ml Flexpen U-100 Insulin aspart) insulin glargine 100 unit/mL (3 12 unit (0.12 mL) SUBCUT QPM #15 ml 03/29/21 mL) subcutaneous pen (Lantus Solostar U-100 Insulin) sucralfate 1 gram tablet (Carafate) 1 g PO QID #360 tab 03/30/21 diaper,brief,adult,disposable #50 ea 05/03/21 (Briefs) bisacodyl 10 mg rectal suppository 10 mg ND DAILY PRN #30 ea 07/03/21 docusate sodium 100 mg capsule 100 mg PO BID #30 cap 07/03/21 methocarbamol 500 mg tablet 500 mg PO TID PRN #20 tab 07/03/21 oxycodone 5 mg tablet 5 mg PO Q3HR PRN #20 tab 07/03/21 polyethylene glycol 3350 17 gram 17 gm PO DAILY #20 ea 07/03/21 oral powder packet sennosides 8.6 mg tablet (senna) 8.6 mg PO DAILY #20 tab 07/03/21 omeprazole 20 mg capsule,delayed 20 mg PO DAILY #90 cap 08/17/21 release Allergies Allergy/AdvReac Type Severity Reaction Status Date / Time Iodine and Iodide Containing Allergy Unknown Verified 07/31/21 12:58 Produc [IODINE AND IODIDE CONTAINING PRODUC] Review of Systems Review of Systems Narrative: GENERAL: Denies chills, fatigue, malaise, fever, sweats, travel HEENT: Denies sinus pain, ear pain, sore throat, difficulty swallowing, neck pain RESPIRATORY: Denies dyspnea, cough, wheezing, hemoptysis, sputum. CARDIOVASCULAR: Denies chest pain, palpitations, orthopnea, edema GASTROINTESTINAL: See HPI : Denies dysuria, frequency, incontinence, hematuria, urinary retention, flank pain. MUSCULOSKELETAL: Denies weakness, joint pain, or bony pain SKIN: No rash, no erythema, no pruritus NEUROLOGIC: Denies weakness, dizziness, headache, numbness, change in speech, confusion PSYCHIATRIC: No concerning psychosocial issues. 12 point review of systems is negative except for those stated above and HPI Patient History Medical History Acute on chronic diastolic heart failure Anemia Dow's esophagus with esophagitis Bilateral lower extremity edema CKD (chronic kidney disease) stage 3, GFR 30-59 ml/min CVA (cerebral vascular accident) (~2017) Dementia Diabetes Fractures Gallbladder disease GERD (gastroesophageal reflux disease) GERD (gastroesophageal reflux disease) History of urinary incontinence (~2017) Hyperlipidemia Hypertension Overactive bladder Partial blindness Post-menopausal Screening for malignant neoplasm of colon Subdural hematoma Swelling of left lower extremity Upper GI bleed Vision disorder Surgical History Anesthesia History of cholecystectomy History of hip replacement (~2019) History of surgery on arm Tubal ligation status Family History Mother Heart disease Father No problems noted. Sister Cancer Social History marital status: household members: significant other caregiver/support person: Yes Smoking Status: Former smoker alcohol intake: former Smoking Status: Former smoker tobacco type: cigarettes alcohol intake frequency: holidays/special occasions only Alcohol type: hard liquor Substance Use Type: marijuana Exam Initial Vital Signs Initial Vital Signs: Vital Signs Temperature 98.4 F 08/31/21 12:22 Pulse Rate 82 08/31/21 12:22 Respiratory Rate 18 08/31/21 12:22 Blood Pressure 132/61 08/31/21 12:22 Pulse Oximetry 100 08/31/21 12:22 GENERAL: Alert mildly confused 66-year-old female appears older than stated age in no acute distress. HEENT: Head atraumatic,EOMI, pupils reactive, face symmetric, moist mucous membranes CARDIOVASCULAR: Regular rate and rhythm without murmurs, rubs or gallops. RESPIRATORY: Breath sounds equal bilaterally, no wheezes rales or rhonchi. ABDOMEN: Distended nontender + fluid wave EXTREMITIES: Normal range of motion, no clubbing or edema. Neurovascularly intact NEUROLOGICAL: Alert and oriented x4.Normal gait and speech. SKIN: Warm, dry, no laceration, no petechiae, no rashes or lesions. Procedures Paracentesis Time Out Performed: Yes Local Anesthetic: lidocaine 1% Amount of anesthesia used (mL): 2 Fluid: clear and sent to lab for analysis Post Procedure Exam: awake, alert, normal BP, normal HR and normal SpO2 Patient Tolerated Procedure: Well Course Orders Ordered: ED Orders 08/31/21 12:41 EKG-12 Lead Stat 08/31/21 12:42 US abdomen limited Stat 08/31/21 12:59 Ammonia (NH3) Stat Complete Blood Count AUTO DIFF Stat Comprehensive Metabolic Panel Stat LDH [Lactate Dehydrogenase] Stat Lipase Stat NT-proBNP (BNP-Adult 18+) Stat PT [Prothrombin Time INR] Stat PTT [Partial Thromboplastin Time] Stat Troponin & CK Cardiac Panel Stat 08/31/21 15:15 Albumin Body Fluid Stat Amylase Body Fluid Stat Cell Count w Diff Body Fluid Stat Glucose Body Fluid Stat LDH Body Fluid Stat Total Protein Body Fluid Stat 08/31/21 15:22 Body Fluid Culture Stat Discontinued Medications Lidocaine HCl (Lidocaine 1% (Pf)) 2 ml SUBCUT NOW ONE Stop: 08/31/21 14:44 Last Admin: 08/31/21 15:19 Dose: 2 ml Documented by: NISHANT Vital Signs Vital signs: Vital Signs - 8 hr 08/31/21 12:22 08/31/21 12:45 08/31/21 13:00 Temperature 98.4 F Pulse Rate 82 81 83 Respiratory Rate 18 19 21 Blood Pressure 132/61 128/68 Pulse Oximetry 100 100 100 08/31/21 13:30 08/31/21 14:00 08/31/21 14:30 Temperature Pulse Rate 80 76 80 Respiratory Rate 20 17 20 Blood Pressure 117/67 122/65 122/68 Pulse Oximetry 98 97 98 08/31/21 15:00 08/31/21 15:30 08/31/21 16:00 Temperature Pulse Rate 80 79 81 Respiratory Rate 24 24 18 Blood Pressure 128/79 124/69 123/66 Pulse Oximetry 100 100 98 08/31/21 16:30 08/31/21 17:00 Temperature Pulse Rate 79 77 Respiratory Rate 18 21 Blood Pressure 125/68 122/66 Pulse Oximetry 100 100 MDM - Abdominal Pain Lab Data Result diagrams: 08/31/21 12:59 08/31/21 12:59 Labs: Lab Results 08/31/21 08/31/21 08/31/21 Range/Units 12:59 12:59 12:59 WBC 9.1 (4.5-11.0) X10^3/uL RBC 3.76 L (4.0-5.2) X10^6/uL Hgb 9.4 L (12.0-16.0) g/dL Hct 29.1 L (36-46) % MCV 77.5 L (80-100) fL MCH 24.9 L (26-34) PG MCHC 32.1 (30-36) % RDW 16.5 H (11.6-14.8) % Plt Count 461 H (150-400) X10^3/uL Neut % (Auto) 82.9 H (50-75) % Lymph % (Auto) 9.6 L (25-40) % [place] % (Auto) 6.8 (3-14) % Eos % (Auto) 0.4 L (2-4) % Baso % (Auto) 0.3 (0-2) % Neut # (Auto) 7600 H (0710-8030) /uL Lymph # (Auto) 900 L (7121-0735) /uL [place] # (Auto) 600 (0-900) /uL Eos # (Auto) 0 (0-450) /uL Baso # (Auto) 0 (0-100) /uL PT (10.1-12.7) SECONDS INR (0.9-1.3) APTT (26.4-36.2) SECONDS Sodium 137 (137-145) mmol/L Potassium 3.9 (3.4-5.1) mmol/L Chloride 113 H (98-107) mmol/L Carbon Dioxide 12 L (22-32) mmol/L BUN 38 H (7-17) mg/dL Creatinine 2.26 H (0.52-1.04) mg/dL Estimated GFR 24 L (>60) mL/min BUN/Creatinine Ratio 16.8 (6-22) Glucose 318 H (80-110) mg/dL Calcium 8.2 L (8.4-10.2) mg/dL Total Bilirubin 0.3 (0.2-1.3) mg/dL AST 16 (14-36) IU/L ALT 10 (<35) IU/L Alkaline Phosphatase 100 (38-126) U/L Ammonia < 9 L (9-30) umol/L Lactate Dehydrogenase (313-618) U/L Total Creatine Kinase 33 (30-135) U/L CK-MB (CK-2) TNP CK-MB (CK-2) Rel Index TNP Troponin I < 0.012 (0.01-0.034) ng/mL NT-Pro-B Natriuret Pep 2170 H (<125) pg/mL Total Protein 7.2 (6.3-8.2) g/dL Albumin 2.9 L (3.5-5.0) g/dL Globulin 4.3 H (1.7-4.1) g/dL Albumin/Globulin Ratio 0.7 L (1.0-2.8) Lipase 15 L (23-300) U/L Fluid Color Fluid Appearance Fluid RBC /uL Fld Tot Nucleated Cell /uL Fluid Polynuclear WBCs % Fluid Mononuclear WBCs % Fluid Eosinophils % Fluid Other Cells % Body Fluid Clot Fluid Glucose mg/dL Fluid Total Protein g/dL Fluid Albumin g/dL Fluid LDH U/L Fluid Amylase IU/L 08/31/21 08/31/21 08/31/21 Range/Units 12:59 12:59 15:15 WBC (4.5-11.0) X10^3/uL RBC (4.0-5.2) X10^6/uL Hgb (12.0-16.0) g/dL Hct (36-46) % MCV (80-100) fL MCH (26-34) PG MCHC (30-36) % RDW (11.6-14.8) % Plt Count (150-400) X10^3/uL Neut % (Auto) (50-75) % Lymph % (Auto) (25-40) % [place] % (Auto) (3-14) % Eos % (Auto) (2-4) % Baso % (Auto) (0-2) % Neut # (Auto) (1318-0199) /uL Lymph # (Auto) (9276-6327) /uL [place] # (Auto) (0-900) /uL Eos # (Auto) (0-450) /uL Baso # (Auto) (0-100) /uL PT 11.3 (10.1-12.7) SECONDS INR 1.0 (0.9-1.3) APTT 33 (26.4-36.2) SECONDS Sodium (137-145) mmol/L Potassium (3.4-5.1) mmol/L Chloride (98-107) mmol/L Carbon Dioxide (22-32) mmol/L BUN (7-17) mg/dL Creatinine (0.52-1.04) mg/dL Estimated GFR (>60) mL/min BUN/Creatinine Ratio (6-22) Glucose (80-110) mg/dL Calcium (8.4-10.2) mg/dL Total Bilirubin (0.2-1.3) mg/dL AST (14-36) IU/L ALT (<35) IU/L Alkaline Phosphatase (38-126) U/L Ammonia (9-30) umol/L Lactate Dehydrogenase 326 (313-618) U/L Total Creatine Kinase (30-135) U/L CK-MB (CK-2) CK-MB (CK-2) Rel Index Troponin I (0.01-0.034) ng/mL NT-Pro-B Natriuret Pep (<125) pg/mL Total Protein (6.3-8.2) g/dL Albumin (3.5-5.0) g/dL Globulin (1.7-4.1) g/dL Albumin/Globulin Ratio (1.0-2.8) Lipase (23-300) U/L Fluid Color Yellow Fluid Appearance Clear Fluid RBC < 1000 /uL Fld Tot Nucleated Cell 344 /uL Fluid Polynuclear WBCs 40 % Fluid Mononuclear WBCs 55 % Fluid Eosinophils 0 % Fluid Other Cells 5 % Body Fluid Clot No clots present Fluid Glucose 299 mg/dL Fluid Total Protein 2.5 g/dL Fluid Albumin 1.0 g/dL Fluid LDH 195 U/L Fluid Amylase < 30 IU/L Imaging Data US - abdomen: Radiologist's Impression: Kristine thompson MR#: [id number] : 1955 Acct:[id number] Age/Sex: 66 / F Date of Service: 08/31/21 Loc: ED Accession Number: [id number] ?? Procedure: US abdomen limited Ordering Provider: Rafaela Guerrero D.O. PROCEDURE: US ABDOMEN LIMITED ? INDICATIONS:? Ascites ? TECHNIQUE:? Real-time focused scanning was performed of the abdomen, with image documentation.? ? COMPARISON:? None. ? FINDINGS:? Large amount of ascites identified.? Right lower quadrant skin marked for paracentesis. ? IMPRESSION:? Large amount of ascites.? Successful ultrasound localization for paracentesis.? ? ? Dictated by: Rosalinda Suazo MD, PhD on 08/31/2021 at 13:57 ? ? [facility] Narrative Medical decision making narrative: Patient apparently does have a history of cirrhosis but not history of ascites. This is a new diagnosis for her. Fluid is sent down to the lab for analysis. She does not have any abdominal pain fever leukocytosis at this time low suspicion for SBP. She is found to have mild increase in her creatinine of 2.2. Has been states that she does have an appointment with a records coordinator within the next few weeks. She is also found to have an elevated BNP without any signs of congestive heart failure or shortness of breath, no need for treatment at this time. Well. This time no need for admission or further workup. sAAG 1.9 likely due to no hypertension consistent with cirrhosis Discharge Plan Departure Patient Disposition: Home Clinical Impression: Ascites, Acute kidney injury Instructions: DI for Ascites, Abdominal Paracentesis Activity Restrictions/Additional Instructions: *You have been diagnosed with ascites, acute kidney injury *What to do: You have a fluid in your abdomen likely due to cirrhosis and liver failure. It will reaccumulate and he will likely needed to be removed again. I am not sure how soon this will all happened. Please discuss this with your primary provider. *Continue to take medications as directed *Follow up with your primary care provider in 2-3 days or call [phone], call to schedule appointment Please follow-up with your kidney doctor next week as scheduled *Return to ER if you should have fever, increased redness is, vomiting, or any new, worsening or concerning symptoms Prescriptions: No Action (DME) Glucose Test strips See Rx Instructions .Route .MEDSUPPLY Qty: 100 11RF Rx Instructions: Use to test blood sugars four times daily. amlodipine 10 mg tablet 10 mg PO DAILY Qty: 90 2RF atorvastatin [Lipitor] 20 mg tablet 40 mg PO BEDTIME Qty: 90 2RF insulin aspart U-100 [Novolog Flexpen U-100 Insulin] 100 unit/mL (3 mL) insulin pen 1 sliding scale dose subcut QIDACHS Qty: 15 2RF Lantus Solostar U-100 Insulin 100 unit/mL (3 mL) insulin pen 12 unit SUBCUT QPM Qty: 15 2RF sucralfate [Carafate] 1 gram tablet 1 g PO QID Qty: 360 2RF (DME) Briefs Misc See Rx Instructions .Route Qty: 50 6RF Rx Instructions: Use daily and as needed for urinary incontinence omeprazole 20 mg capsule,delayed release(DR/EC) 20 mg PO DAILY Qty: 90 3RF cholecalciferol (vitamin D3) [Vitamin D3] 1,000 unit Capsule 1,000 unit PO BID 0RF cyanocobalamin (vitamin B-12) [Vitamin B-12] 1,000 mcg Tablet 1,000 mcg PO DAILY 0RF lisinopril 20 mg Tablet 40 mg PO DAILY 0RF pantoprazole [Protonix] 20 mg Tablet,Delayed Release (Dr/Ec) 20 mg PO DAILY 0RF oxybutynin chloride 5 mg Tablet Extended Release 24hr 5 mg PO DAILY 0RF methocarbamol 500 mg Tablet 500 mg PO TID PRN (Reason: Muscle Spasm) Qty: 20 0RF sennosides [senna] 8.6 mg Tablet 8.6 mg PO DAILY Qty: 20 0RF polyethylene glycol 3350 17 gram Powder In Packet 17 gm PO DAILY Qty: 20 0RF bisacodyl 10 mg Suppository 10 mg ND DAILY PRN (Reason: Constipation) Qty: 30 0RF docusate sodium 100 mg Capsule 100 mg PO BID Qty: 30 0RF oxycodone 5 mg Tablet 5 mg PO Q3HR PRN (Reason: Pain, Moderate (4-6)) Qty: 20 0RF Referrals: Joanna Pérez ARNP [Primary Care Provider] -
[2021-08-31 13:11] LABS: Add Manual Diff / Slide Review NO; Basophils Absolute Auto 0 /uL (0-100); Basophils Percent Auto 0.3 % (0-2); Eosinophils Absolute Auto 0 /uL (0-450); Eosinophils Percent Auto 0.4 % (2-4); Hematocrit 29.1 % (36-46); Hemoglobin 9.4 g/dL (12.0-16.0); Lymphocytes Absolute Auto 900 /uL (1100-4500); Lymphocytes Percent Auto 9.6 % (25-40); Mean Corpuscular HGB Conc 32.1 % (30-36); Mean Corpuscular Hemoglobin 24.9 PG (26-34); Mean Corpuscular Volume 77.5 fL (80-100); Monocytes Absolute Auto 600 /uL (0-900); Monocytes Percent Auto 6.8 % (3-14); Neutrophils Absolute Auto 7600 /uL (1500-7000); Neutrophils Percent Auto 82.9 % (50-75); Platelet Count 461 X10^3/uL (150-400); Red Blood Cell Count 3.76 X10^6/uL (4.0-5.2); Red Cell Distribution Width 16.5 % (11.6-14.8); White Blood Cell Count 9.1 X10^3/uL (4.5-11.0)
[2021-08-31 13:28] LABS: Ammonia (NH3) < 9 umol/L (9-30)
[2021-08-31 13:29] LABS: Alanine Aminotransferase 10 IU/L (<35); Albumin 2.9 g/dL (3.5-5.0); Albumin Globulin Ratio 0.7 (1.0-2.8); Alkaline Phosphatase 100 U/L (38-126); Aspartate Aminotransferase 16 IU/L (14-36); BUN Creatinine Ratio 16.8 (6-22); Bilirubin Total 0.3 mg/dL (0.2-1.3); Blood Urea Nitrogen 38 mg/dL (7-17); Calcium 8.2 mg/dL (8.4-10.2); Carbon Dioxide 12 mmol/L (22-32); Chloride 113 mmol/L (98-107); Creatine Kinase 33 U/L (30-135); Estimated Glomerular Filt Rate 24 mL/min (>60); Globulin 4.3 g/dL (1.7-4.1); Glucose 318 mg/dL (80-110); HEMOLYSIS < 15 (0-50); Lipase 15 U/L (23-300); Potassium 3.9 mmol/L (3.4-5.1); Sodium 137 mmol/L (137-145); Total Protein 7.2 g/dL (6.3-8.2)
[2021-08-31 13:39] LABS: NT-proBNP (BNP-Adult 18+) 2170 pg/mL (<125); Troponin I < 0.012 ng/mL (0.01-0.034)
[2021-08-31 13:53] LABS: PTT Partial Thromboplastin Tim 33 SECONDS (26.4-36.2); Prothrombin Time 11.3 SECONDS (10.1-12.7)
[2021-08-31] MEDS: LIDOCAINE 1% (PF) 2 ML SUBCUT (15:19)
[2021-08-31 16:12] LABS: Lactate Dehydrogenase 326 U/L (313-618)
[2021-08-31 16:47] LABS: Amylase Body Fluid < 30 IU/L; Glucose Body Fluid 299 mg/dL; LDH Body Fluid 195 U/L; Total Protein Body Fluid 2.5 g/dL
[2021-08-31 16:51] LABS: Body Fluid Tot Nucleated Cells 344 /uL
[2021-08-31 16:54] LABS: Body Fluid Appearance CLEAR; Body Fluid Clotted? NO CLOTS PRESENT; Body Fluid Color YELLOW; Body Fluid Red Blood Cells < 1000 /uL
[2021-08-31 17:41] LABS: Eosinophils Body Fluid 0 %; Mononuclear WBC Body Fluid 55 %; Other Cells Body Fluid 5 %; Polynuclear WBC Body Fluid 40 %
== END 2021-08-31 17:20 | disposition home or self-care (01) ==
PROVIDERS: Emergency Provider Emergency Medicine; PCP Nurse Practitioner
DX: R18.8 Other ascites (principal); N17.9 Acute kidney failure, unspecified; Z87.891 Personal history of nicotine dependence
CPT/HCPCS: 36415; 49082; 76705; 80053; 82042; 82140; 82150; 82550; 82945; 83615; 83690; 83880; 84157; 84484; 85025; 85610; 85730; 87070; 87075; 87205; 89051; 93005; 93010; 99283; 99284

== ENCOUNTER 2021-09-20 16:04 | Emergency (ER) | payer MEDICARE, MEDICAID, SELFPAY ==
[2021-08-03 16:36] VITALS: BMI 22.0
[2021-09-20 16:12] VITALS: BP 120/70; PULSE 84; RESP 20; TEMP 36.5; O2SAT 99; BMI 24.0
[2021-09-20] MEDS: MORPHINE 2 MG/ML INJ IV (17:18)
[2021-09-20 17:28] LABS: Add Manual Diff / Slide Review NO; Basophils Absolute Auto 0 /uL (0-100); Basophils Percent Auto 0.5 % (0-2); Eosinophils Absolute Auto 0 /uL (0-450); Eosinophils Percent Auto 0.6 % (2-4); Hematocrit 30.7 % (36-46); Hemoglobin 10.1 g/dL (12.0-16.0); Lymphocytes Absolute Auto 1300 /uL (1100-4500); Lymphocytes Percent Auto 17.2 % (25-40); Mean Corpuscular HGB Conc 32.9 % (30-36); Mean Corpuscular Hemoglobin 24.6 PG (26-34); Mean Corpuscular Volume 74.8 fL (80-100); Monocytes Absolute Auto 700 /uL (0-900); Monocytes Percent Auto 8.6 % (3-14); Neutrophils Absolute Auto 5700 /uL (1500-7000); Neutrophils Percent Auto 73.1 % (50-75); Platelet Count 374 X10^3/uL (150-400); Red Cell Distribution Width 16.8 % (11.6-14.8); White Blood Cell Count 7.8 X10^3/uL (4.5-11.0)
[2021-09-20 17:37] LABS: Prothrombin Time 11.7 SECONDS (10.1-12.7)
[2021-09-20 17:39] LABS: PTT Partial Thromboplastin Tim 30 SECONDS (26.4-36.2)
[2021-09-20 17:41] LABS: Alanine Aminotransferase 11 IU/L (<35); Albumin 2.8 g/dL (3.5-5.0); Albumin Globulin Ratio 0.7 (1.0-2.8); Alkaline Phosphatase 106 U/L (38-126); Aspartate Aminotransferase 18 IU/L (14-36); BUN Creatinine Ratio 13.6 (6-22); Bilirubin Total 0.5 mg/dL (0.2-1.3); Blood Urea Nitrogen 30 mg/dL (7-17); Calcium 7.9 mg/dL (8.4-10.2); Carbon Dioxide 20 mmol/L (22-32); Chloride 109 mmol/L (98-107); Estimated Glomerular Filt Rate 24 mL/min (>60); Globulin 4.2 g/dL (1.7-4.1); Glucose 95 mg/dL (80-110); HEMOLYSIS < 15 (0-50); Lipase 14 U/L (23-300); Potassium 4.1 mmol/L (3.4-5.1); Sodium 137 mmol/L (137-145)
--- NOTE | 2021-09-20 18:06 | ED_ITS ---
HPI - Abdominal Pain General Chief Complaint: Abdominal Pain Stated Complaint: Abs px Time Seen by Provider: 09/20/21 18:06 Source: patient and EMS Mode of arrival: EMS Limitations: no limitations History of Present Illness HPI narrative: This is a 66-year-old female comes emergency department with complaint of inc reasing abdominal circumference and 4 lb weight gain in the last 2 days. Patient has known ascites and liver failure secondary to alcohol abuse since 2018 with a history of cirrhosis, dyslipidemia, TIA, diabetes. Patient denies fevers or chills. She denies any abdominal pain. She denies any chest pain or shortness of breath. She denies any dysuria urgency or frequency. No diarrhea constipation. Her both no increasing swelling in her lower extremities. She had paracentesis 2 weeks ago here and the emergency department. They are in process of setting up with gastroenterology. They are also setting up with Dr. Early as primary care as their primary care has left the region. They are interested in being set up for outpatient paracentesis but are sure how to go through this process. Related Data Home Medications Medication Instructions Recorded Confirmed cholecalciferol (vitamin D3) 25 1,000 unit PO BID 10/08/17 08/03/21 mcg (1,000 unit) capsule (Vitamin D3) cyanocobalamin (vitamin B-12) 1,000 mcg PO DAILY 08/02/19 08/03/21 1,000 mcg tablet (Vitamin B-12) lisinopril 20 mg tablet 40 mg PO DAILY 06/25/21 08/03/21 oxybutynin chloride 5 mg 5 mg PO DAILY 06/25/21 08/03/21 tablet,extended release 24 hr pantoprazole 20 mg tablet,delayed 20 mg PO DAILY 06/25/21 08/03/21 release (Protonix) Previous Rx's Medication Instructions Recorded Glucose Test strips #100 ea 03/28/21 amlodipine 10 mg tablet 10 mg PO DAILY #90 tab 03/29/21 atorvastatin 20 mg tablet (Lipitor) 40 mg PO BEDTIME #90 tab 03/29/21 insulin aspart U-100 100 unit/mL 1 sliding scale dose SUBCUT 03/29/21 (3 mL) subcutaneous pen (Novolog QIDACHS #15 ml Flexpen U-100 Insulin aspart) insulin glargine 100 unit/mL (3 12 unit (0.12 mL) SUBCUT QPM #15 ml 03/29/21 mL) subcutaneous pen (Lantus Solostar U-100 Insulin) sucralfate 1 gram tablet (Carafate) 1 g PO QID #360 tab 03/30/21 diaper,brief,adult,disposable #50 ea 05/03/21 (Briefs) bisacodyl 10 mg rectal suppository 10 mg KS DAILY PRN #30 ea 07/03/21 docusate sodium 100 mg capsule 100 mg PO BID #30 cap 07/03/21 methocarbamol 500 mg tablet 500 mg PO TID PRN #20 tab 07/03/21 oxycodone 5 mg tablet 5 mg PO Q3HR PRN #20 tab 07/03/21 polyethylene glycol 3350 17 gram 17 gm PO DAILY #20 ea 07/03/21 oral powder packet sennosides 8.6 mg tablet (senna) 8.6 mg PO DAILY #20 tab 07/03/21 omeprazole 20 mg capsule,delayed 20 mg PO DAILY #90 cap 08/17/21 release furosemide 20 mg tablet (Lasix) 20 mg PO DAILY #5 tab 09/20/21 Allergies Allergy/AdvReac Type Severity Reaction Status Date / Time Iodine and Iodide Containing Allergy Unknown Verified 09/20/21 16:12 Produc [IODINE AND IODIDE CONTAINING PRODUC] Review of Systems Review of Systems ROS Unobtainable: All systems reviewed & are unremarkable except as noted in HPI and below Patient History Medical History Acute on chronic diastolic heart failure Anemia Dow's esophagus with esophagitis Bilateral lower extremity edema CKD (chronic kidney disease) stage 3, GFR 30-59 ml/min CVA (cerebral vascular accident) (~2017) Dementia Diabetes Fractures Gallbladder disease GERD (gastroesophageal reflux disease) GERD (gastroesophageal reflux disease) History of urinary incontinence (~2017) Hyperlipidemia Hypertension Overactive bladder Partial blindness Post-menopausal Screening for malignant neoplasm of colon Subdural hematoma Swelling of left lower extremity Upper GI bleed Vision disorder Surgical History Anesthesia History of cholecystectomy History of hip replacement (~2019) History of surgery on arm Tubal ligation status Family History Mother Heart disease Father No problems noted. Sister Cancer Social History marital status: household members: significant other caregiver/support person: Yes Smoking Status: Former smoker alcohol intake: former Smoking Status: Former smoker tobacco type: cigarettes alcohol intake frequency: holidays/special occasions only Alcohol type: hard liquor Substance Use Type: marijuana Exam Narrative Exam Narrative: GENERAL: Alert and oriented x three, elderly female in mild distress. HEENT: Head normocephalic, atraumatic, EOMI, pupils reactive, face symmetric, moist mucous membranes NECK: Supple, full range of motion CARDIOVASCULAR: Regular rate and rhythm without murmurs, rubs or gallops. RESPIRATORY: Breath sounds equal bilaterally, no wheezes rales or rhonchi. ABDOMEN: Soft, nontender, distended. Positive for fluid wave. Bowel sounds all 4 quadrants. No guarding or rebound, rigidity, no mass. Patient a small reducible upper abdominal midline hernia. : No CVA tenderness EXTREMITIES: Normal range of motion, no clubbing or edema. Neurovascularly intact NEUROLOGICAL: Cranial nerves II through XII grossly intact. Moving all extremities SKIN: Warm, dry, no petechiae, no rashes or lesions. Initial Vital Signs Initial Vital Signs: Vital Signs Temperature 97.7 F 09/20/21 16:12 Pulse Rate 84 09/20/21 16:12 Respiratory Rate 20 09/20/21 16:12 Blood Pressure 120/70 09/20/21 16:12 Pulse Oximetry 99 09/20/21 16:12 Course Orders Ordered: Discontinued Medications Furosemide (Furosemide 20 Mg Tablet) 20 mg PO NOW ONE Stop: 09/20/21 19:53 Last Admin: 09/20/21 20:04 Dose: 20 mg Documented by: NEGRA Morphine Sulfate (Morphine 2 Mg/Ml Inj) 2 mg IV NOW ONE Stop: 09/20/21 16:53 Last Admin: 09/20/21 17:18 Dose: 2 mg Documented by: DAVIDA Reevaluation(s) Reevaluation #1: Patient's labs reviewed, patient was marked for ultrasound-guided paracentesis. Discussed with patient as well as her at this time they defer having a ctual paracentesis in the department although it was offered. She is stable and appropriate for discharge home and they would like to try to set up outpatient follow-up for paracentesis and recurrent paracentesis as needed. They have follow-up tomorrow with her primary care physician but were given order and contact for scheduling here in the department. Return precautions discussed and all questions answered. Vital Signs Vital signs: Vital Signs - 8 hr 09/20/21 16:12 09/20/21 18:08 Temperature 97.7 F Pulse Rate 84 72 Respiratory Rate 20 16 Blood Pressure 120/70 118/88 Pulse Oximetry 99 98 MDM - Abdominal Pain Lab Data Result diagrams: 09/20/21 17:20 09/20/21 17:20 Labs: Lab Results 09/20/21 09/20/21 09/20/21 Range/Units 17:20 17:20 17:20 WBC 7.8 (4.5-11.0) X10^3/uL RBC 4.10 (4.0-5.2) X10^6/uL Hgb 10.1 L (12.0-16.0) g/dL Hct 30.7 L (36-46) % MCV 74.8 L (80-100) fL MCH 24.6 L (26-34) PG MCHC 32.9 (30-36) % RDW 16.8 H (11.6-14.8) % Plt Count 374 (150-400) X10^3/uL Neut % (Auto) 73.1 (50-75) % Lymph % (Auto) 17.2 L (25-40) % Grand % (Auto) 8.6 (3-14) % Eos % (Auto) 0.6 L (2-4) % Baso % (Auto) 0.5 (0-2) % Neut # (Auto) 5700 (2928-7486) /uL Lymph # (Auto) 1300 (5269-4815) /uL Grand # (Auto) 700 (0-900) /uL Eos # (Auto) 0 (0-450) /uL Baso # (Auto) 0 (0-100) /uL PT 11.7 (10.1-12.7) SECONDS INR 1.0 (0.9-1.3) APTT 30 (26.4-36.2) SECONDS Sodium 137 (137-145) mmol/L Potassium 4.1 (3.4-5.1) mmol/L Chloride 109 H (98-107) mmol/L Carbon Dioxide 20 L (22-32) mmol/L BUN 30 H (7-17) mg/dL Creatinine 2.21 H (0.52-1.04) mg/dL Estimated GFR 24 L (>60) mL/min BUN/Creatinine Ratio 13.6 (6-22) Glucose 95 (80-110) mg/dL Calcium 7.9 L (8.4-10.2) mg/dL Total Bilirubin 0.5 (0.2-1.3) mg/dL AST 18 (14-36) IU/L ALT 11 (<35) IU/L Alkaline Phosphatase 106 (38-126) U/L Total Protein 7.0 (6.3-8.2) g/dL Albumin 2.8 L (3.5-5.0) g/dL Globulin 4.2 H (1.7-4.1) g/dL Albumin/Globulin Ratio 0.7 L (1.0-2.8) Lipase 14 L (23-300) U/L MDM Narrative Medical decision making narrative: This is a 66-year-old female with a known alcoholic liver disease who has been sober since 2018 patient was seen about 2 weeks ago had paracentesis at that t [facility]. She returns today with increasing swelling but no new chest pain, shortness of breath or other emergent symptoms. After discussion patient's labs reviewed they are appropriate paracentesis was offered for and risks versus benefits were discussed they are more interested in outpatient paracentesis and were unsure how to obtain this and schedule it as needed on a regular basis They actually have an appointment tomorrow with their primary care physician so order was given to the patient with instructions to schedule outpatient paracentesis and they can follow up their primary care physician tomorrow who can also assist with this. We did discuss that they are welcome to return at any time if she is having worsening symptoms but she is stable to defer paracentesis at this time. Discharge Plan Departure Patient Disposition: Home Clinical Impression: Ascites Instructions: DI for Ascites, DI for Abdominal Paracentesis Activity Restrictions/Additional Instructions: Follow-up tomorrow at your appointment with Dr. Early. Discussed getting set up for outpatient paracentesis although in order is included today. As discussed paracentesis was offered today but you are stable and appropriate for outpatient paracentesis which sounds like you prefer. Order for parents centesis is included please call the scheduling number at the top of the order form tomorrow to set up appointment. Continue your home medications as prescribed. Prescription for Lasix 20 mg once daily x5 days was sent to [facility] in [place] Please return for fevers, new chest pain, shortness of breath, rapidly worsening swelling, difficulty breathing, lightheadedness or passing out, rapidly worseni ng swelling of her extremities or other new or concerning symptoms. Prescriptions: New furosemide [Lasix] 20 mg tablet 20 mg PO DAILY Qty: 5 0RF No Action (DME) Glucose Test strips See Rx Instructions .Route .MEDSUPPLY Qty: 100 11RF Rx Instructions: Use to test blood sugars four times daily. amlodipine 10 mg tablet 10 mg PO DAILY Qty: 90 2RF atorvastatin [Lipitor] 20 mg tablet 40 mg PO BEDTIME Qty: 90 2RF insulin aspart U-100 [Novolog Flexpen U-100 Insulin] 100 unit/mL (3 mL) insulin pen 1 sliding scale dose subcut QIDACHS Qty: 15 2RF Lantus Solostar U-100 Insulin 100 unit/mL (3 mL) insulin pen 12 unit SUBCUT QPM Qty: 15 2RF sucralfate [Carafate] 1 gram tablet 1 g PO QID Qty: 360 2RF (DME) Briefs Misc See Rx Instructions .Route Qty: 50 6RF Rx Instructions: Use daily and as needed for urinary incontinence omeprazole 20 mg capsule,delayed release(DR/EC) 20 mg PO DAILY Qty: 90 3RF cholecalciferol (vitamin D3) [Vitamin D3] 1,000 unit Capsule 1,000 unit PO BID 0RF cyanocobalamin (vitamin B-12) [Vitamin B-12] 1,000 mcg Tablet 1,000 mcg PO DAILY 0RF lisinopril 20 mg Tablet 40 mg PO DAILY 0RF pantoprazole [Protonix] 20 mg Tablet,Delayed Release (Dr/Ec) 20 mg PO DAILY 0RF oxybutynin chloride 5 mg Tablet Extended Release 24hr 5 mg PO DAILY 0RF methocarbamol 500 mg Tablet 500 mg PO TID PRN (Reason: Muscle Spasm) Qty: 20 0RF sennosides [senna] 8.6 mg Tablet 8.6 mg PO DAILY Qty: 20 0RF polyethylene glycol 3350 17 gram Powder In Packet 17 gm PO DAILY Qty: 20 0RF bisacodyl 10 mg Suppository 10 mg KS DAILY PRN (Reason: Constipation) Qty: 30 0RF docusate sodium 100 mg Capsule 100 mg PO BID Qty: 30 0RF oxycodone 5 mg Tablet 5 mg PO Q3HR PRN (Reason: Pain, Moderate (4-6)) Qty: 20 0RF Referrals: Colleen Early MD [Primary Care Provider] -
[2021-09-20 18:08] VITALS: BP 118/88; PULSE 72; RESP 16; O2SAT 98
--- NOTE | 2021-09-20 18:19 | DI.US.S_ITS ---
PROCEDURE: US ABDOMEN LIMITED INDICATIONS: ascites TECHNIQUE: Real-time focused scanning was performed of the abdomen, with image documentation. COMPARISON: [facility], , US ABDOMEN LIMITED, 08/31/2021, 13:18. FINDINGS: Moderate ascites with largest pocket in the right lower quadrant. IMPRESSION: Moderate ascites. Dictated by: Ruddy Cardenas M.D. on 09/20/2021 at 19:16 Approved by: Ruddy Cardensa M.D. on 09/20/2021 at 19:17
[2021-09-20] MEDS: FUROSEMIDE 20 MG TABLET PO (20:04)
[2021-09-20 20:06] VITALS: BP 127/80; PULSE 79; RESP 16; O2SAT 97
== END 2021-09-20 20:35 | disposition home or self-care (01) ==
PROVIDERS: Emergency Medicine; Emergency Provider Emergency Medicine; PCP Internal Medicine
DX: R18.8 Other ascites (principal)
CPT/HCPCS: 36415; 76705; 80053; 83690; 85025; 85610; 85730; 96374; 99284; J2270

== ENCOUNTER 2021-10-17 10:45 | Emergency (ER) | payer MEDICARE, MEDICAID, SELFPAY ==
[2021-08-03 16:36] VITALS: BMI 22.0
[2021-10-17] VITALS (22 sets, daily range): BP systolic 140–166; BP diastolic 71–101; PULSE 86–98; RESP 22–28; TEMP 36.9; O2SAT 93–100
--- NOTE | 2021-10-17 10:49 | DI.US.S_ITS ---
PROCEDURE: US ABDOMEN LIMITED INDICATIONS: FLORENCIA FOR PARACENTESIS TECHNIQUE: Real-time focused scanning was performed of the abdomen, with image documentation. COMPARISON: [facility], , US ABDOMEN LIMITED, 09/20/2021, 18:57. FINDINGS: Moderate ascites is seen. The right lower quadrant is marked at the site of the largest pocket. The depth from the skin surface to the fluid is just over 1 cm. IMPRESSION: Ultrasound guided skin marking, for performance of a paracentesis. Dictated by: Chase Mensah M.D. on 10/17/2021 at 10:52 Approved by: Chase Mensah M.D. on 10/17/2021 at 10:54
--- NOTE | 2021-10-17 11:57 | PC.NURSE ---
Pt has upper bilateral expiatory wheezes, pronounced swelling of the abdomen that is tight to the touch. Pt denies SOB, chest pain or any other symptoms. She is oriented to name, , and date.
[2021-10-17 13:15] LABS: Add Manual Diff / Slide Review NO; Basophils Absolute Auto 100 /uL (0-100); Basophils Percent Auto 1.2 % (0-2); Eosinophils Absolute Auto 200 /uL (0-450); Eosinophils Percent Auto 1.8 % (2-4); Hematocrit 28.4 % (36-46); Hemoglobin 9.1 g/dL (12.0-16.0); Lymphocytes Absolute Auto 800 /uL (1100-4500); Lymphocytes Percent Auto 8.6 % (25-40); Mean Corpuscular HGB Conc 32.2 % (30-36); Mean Corpuscular Hemoglobin 24.1 PG (26-34); Mean Corpuscular Volume 74.9 fL (80-100); Monocytes Absolute Auto 800 /uL (0-900); Monocytes Percent Auto 8.2 % (3-14); Neutrophils Absolute Auto 7600 /uL (1500-7000); Neutrophils Percent Auto 80.2 % (50-75); Platelet Count 452 X10^3/uL (150-400); Red Blood Cell Count 3.79 X10^6/uL (4.0-5.2); Red Cell Distribution Width 18.9 % (11.6-14.8); White Blood Cell Count 9.4 X10^3/uL (4.5-11.0)
[2021-10-17 13:26] LABS: INR 1.1 (0.9-1.3); Prothrombin Time 11.9 SECONDS (10.1-12.7)
[2021-10-17 13:28] LABS: Alanine Aminotransferase 10 IU/L (<35); Albumin 3.2 g/dL (3.5-5.0); Albumin Globulin Ratio 0.9 (1.0-2.8); Alkaline Phosphatase 74 U/L (38-126); Aspartate Aminotransferase 18 IU/L (14-36); BUN Creatinine Ratio 15.9 (6-22); Bilirubin Total 0.6 mg/dL (0.2-1.3); Blood Urea Nitrogen 45 mg/dL (7-17); Calcium 8.4 mg/dL (8.4-10.2); Carbon Dioxide 17 mmol/L (22-32); Chloride 111 mmol/L (98-107); Estimated Glomerular Filt Rate 18 mL/min (>60); Globulin 3.5 g/dL (1.7-4.1); Glucose 109 mg/dL (80-110); HEMOLYSIS < 15 (0-50); Sodium 139 mmol/L (137-145); Total Protein 6.7 g/dL (6.3-8.2)
[2021-10-17 13:29] LABS: Potassium 5.5 mmol/L (3.4-5.1)
[2021-10-17] MEDS: LIDO 1%/SOD BICARB 8.4% (10ML) 10 ML SYRINGE INJ (14:00)
--- NOTE | 2021-10-17 15:12 | ED.ABDPAIN ---
HPI - Abdominal Pain General Chief Complaint: Abdominal Pain Stated Complaint: Abd distention Time Seen by Provider: 10/17/21 10:49 Source: EMS Mode of arrival: EMS History of Present Illness HPI narrative: 66-year-old female smoker, former heavy drinker with extensive medical history? including myocardial infarction, kidney failure, sepsis, upper GI bleed presents at the request of her [facility] facility for increasing abdominal circumference and discomfort. She was scheduled to have a routine paracentesis a few days ago but for some reason was unable to make it to her appointment. She is sent here today with the hopes that she can have it drained. She has had no fever chills and denies nausea or vomiting. She does have some generalized abdominal discomfort and has felt slightly short of breath for the past few days. She is otherwise well and free of complaint. She denies any medication or dietary change Related Data Home Medications Medication Instructions Recorded Confirmed cholecalciferol (vitamin D3) 25 1,000 unit PO BID 10/08/17 08/03/21 mcg (1,000 unit) capsule (Vitamin D3) cyanocobalamin (vitamin B-12) 1,000 mcg PO DAILY 08/02/19 08/03/21 1,000 mcg tablet (Vitamin B-12) lisinopril 20 mg tablet 40 mg PO DAILY 06/25/21 08/03/21 oxybutynin chloride 5 mg 5 mg PO DAILY 06/25/21 08/03/21 tablet,extended release 24 hr pantoprazole 20 mg tablet,delayed 20 mg PO DAILY 06/25/21 08/03/21 release (Protonix) Previous Rx's Medication Instructions Recorded Glucose Test strips #100 ea 03/28/21 amlodipine 10 mg tablet 10 mg PO DAILY #90 tab 03/29/21 atorvastatin 20 mg tablet (Lipitor) 40 mg PO BEDTIME #90 tab 03/29/21 insulin aspart U-100 100 unit/mL 1 sliding scale dose SUBCUT 03/29/21 (3 mL) subcutaneous pen (Novolog QIDACHS #15 ml Flexpen U-100 Insulin aspart) insulin glargine 100 unit/mL (3 12 unit (0.12 mL) SUBCUT QPM #15 ml 03/29/21 mL) subcutaneous pen (Lantus Solostar U-100 Insulin) sucralfate 1 gram tablet (Carafate) 1 g PO QID #360 tab 03/30/21 diaper,brief,adult,disposable #50 ea 05/03/21 (Briefs) bisacodyl 10 mg rectal suppository 10 mg MN DAILY PRN #30 ea 07/03/21 docusate sodium 100 mg capsule 100 mg PO BID #30 cap 07/03/21 methocarbamol 500 mg tablet 500 mg PO TID PRN #20 tab 07/03/21 oxycodone 5 mg tablet 5 mg PO Q3HR PRN #20 tab 07/03/21 polyethylene glycol 3350 17 gram 17 gm PO DAILY #20 ea 07/03/21 oral powder packet sennosides 8.6 mg tablet (senna) 8.6 mg PO DAILY #20 tab 07/03/21 omeprazole 20 mg capsule,delayed 20 mg PO DAILY #90 cap 08/17/21 release furosemide 20 mg tablet (Lasix) 20 mg PO DAILY #5 tab 09/20/21 Allergies Allergy/AdvReac Type Severity Reaction Status Date / Time Iodine and Iodide Containing Allergy Unknown Verified 09/20/21 16:12 Produc [IODINE AND IODIDE CONTAINING PRODUC] Review of Systems Review of Systems Narrative: GENERAL: Denies chills, fatigue, malaise, fever, sweats. HEENT: Denies sinus pain, ear pain, sore throat, difficulty swallowing, dizziness. RESPIRATORY: See HPI CARDIOVASCULAR: Denies chest pain, palpitations, orthopnea, edema, GASTROINTESTINAL: See HPI : Denies dysuria, frequency, incontinence, hematuria, urinary retention. MUSCULOSKELETAL: denies weakness, joint pain, or bony pain SKIN: Denies rash, skin lesions, or other NEUROLOGIC: Denies weakness, headache, numbness, change in speech, confusion, seizures, incoordination. PSYCHIATRIC: No concerning psychosocial issues. 12 point review of systems is negative except for those stated above Patient History Medical History Acute on chronic diastolic heart failure Anemia Dow's esophagus with esophagitis Bilateral lower extremity edema CKD (chronic kidney disease) stage 3, GFR 30-59 ml/min CVA (cerebral vascular accident) (~2018) Dementia Diabetes Fractures Gallbladder disease GERD (gastroesophageal reflux disease) GERD (gastroesophageal reflux disease) History of urinary incontinence (~2018) Hyperlipidemia Hypertension Overactive bladder Partial blindness Post-menopausal Screening for malignant neoplasm of colon Subdural hematoma Swelling of left lower extremity Upper GI bleed Vision disorder Surgical History Anesthesia History of cholecystectomy History of hip replacement (~2019) History of surgery on arm Tubal ligation status Family History Mother Heart disease Father No problems noted. Sister Cancer Social History marital status: household members: significant other caregiver/support person: Yes Smoking Status: Former smoker alcohol intake: former Smoking Status: Former smoker tobacco type: cigarettes alcohol intake frequency: holidays/special occasions only Alcohol type: hard liquor Substance Use Type: marijuana Exam Narrative Exam Narrative: GENERAL: [66] year old patient appears older than stated age. Evidence of chronic illness, malnutrition, thin HEAD: Atraumatic. Normocephalic. EYES: Pupils equal round and reactive. Extraocular motions intact. No scleral icterus. No injection or drainage. ENT: Nose without bleeding, purulent drainage. Throat without erythema, tonsillar hypertrophy or exudate. Airway patent. NECK: Trachea midline. Non tender CARDIOVASCULAR: Regular rate and rhythm without murmurs, gallops, or rubs. RESPIRATORY: Clear to auscultation. Breath sounds equal bilaterally. No wheezes, rales, or rhonchi. GASTROINTESTINAL: Firm, distended, sequela of portal hypertension including caput medusa, fluid wave present, no redness or warmth EXTREMITIES: No edema or joint tenderness. BACK: Nontender without deformity or crepitance. No flank tenderness. NEURO: AOx3. SKIN: No rash or erythema of visible areas Initial Vital Signs Initial Vital Signs: Vital Signs Temperature 98.4 F 10/17/21 10:48 Pulse Rate 97 H 10/17/21 10:48 Respiratory Rate 22 10/17/21 10:48 Blood Pressure 150/71 H 10/17/21 10:48 Pulse Oximetry 100 10/17/21 10:48 Procedures Paracentesis Time Out Performed: Yes Local Anesthetic: lidocaine 1% and with bicarb Amount of anesthesia used (mL): 4 Fluid: clear Post Procedure Exam: awake, alert, normal BP, normal HR and normal SpO2 Patient Tolerated Procedure: Well Complications: none Course Orders Ordered: Discontinued Medications Lidocaine/Sodium Bicarbonate (Lido 1%/Sod Bicarb 8.4% (10ml) 10 Ml Syringe) 10 ml INJ NOW ONE Stop: 10/17/21 14:00 Last Admin: 10/17/21 14:00 Dose: 10 ml Documented by: NEGRA Vital Signs Vital signs: Vital Signs - 8 hr 10/17/21 10:48 10/17/21 11:54 10/17/21 11:56 Temperature 98.4 F Pulse Rate 97 H 98 H 98 H Respiratory Rate 22 Blood Pressure 150/71 H 142/89 H Pulse Oximetry 100 100 100 10/17/21 12:00 10/17/21 12:30 10/17/21 12:55 Temperature Pulse Rate 97 H 95 H 93 H Respiratory Rate Blood Pressure 144/101 H Pulse Oximetry 99 100 99 10/17/21 13:00 10/17/21 13:30 10/17/21 13:33 Temperature Pulse Rate 94 H 93 H 97 H Respiratory Rate Blood Pressure 166/91 H Pulse Oximetry 100 100 100 10/17/21 14:00 Temperature Pulse Rate 90 Respiratory Rate 24 Blood Pressure 157/92 H Pulse Oximetry 99 MDM - Abdominal Pain Lab Data Result diagrams: 10/17/21 13:06 10/17/21 13:06 Labs: Lab Results 10/17/21 10/17/21 10/17/21 Range/Units 13:06 13:06 13:06 WBC 9.4 (4.5-11.0) X10^3/uL RBC 3.79 L (4.0-5.2) X10^6/uL Hgb 9.1 L (12.0-16.0) g/dL Hct 28.4 L (36-46) % MCV 74.9 L (80-100) fL MCH 24.1 L (26-34) PG MCHC 32.2 (30-36) % RDW 18.9 H (11.6-14.8) % Plt Count 452 H (150-400) X10^3/uL Neut % (Auto) 80.2 H (50-75) % Lymph % (Auto) 8.6 L (25-40) % Freestone % (Auto) 8.2 (3-14) % Eos % (Auto) 1.8 L (2-4) % Baso % (Auto) 1.2 (0-2) % Neut # (Auto) 7600 H (9830-1163) /uL Lymph # (Auto) 800 L (7908-1140) /uL Freestone # (Auto) 800 (0-900) /uL Eos # (Auto) 200 (0-450) /uL Baso # (Auto) 100 (0-100) /uL PT 11.9 (10.1-12.7) SECONDS INR 1.1 (0.9-1.3) Sodium 139 (137-145) mmol/L Potassium 5.5 H (3.4-5.1) mmol/L Chloride 111 H (98-107) mmol/L Carbon Dioxide 17 L (22-32) mmol/L BUN 45 H (7-17) mg/dL Creatinine 2.83 H (0.52-1.04) mg/dL Estimated GFR 18 L (>60) mL/min BUN/Creatinine Ratio 15.9 (6-22) Glucose 109 (80-110) mg/dL Calcium 8.4 (8.4-10.2) mg/dL Total Bilirubin 0.6 (0.2-1.3) mg/dL AST 18 (14-36) IU/L ALT 10 (<35) IU/L Alkaline Phosphatase 74 (38-126) U/L Total Protein 6.7 (6.3-8.2) g/dL Albumin 3.2 L (3.5-5.0) g/dL Globulin 3.5 (1.7-4.1) g/dL Albumin/Globulin Ratio 0.9 L (1.0-2.8) Fluid Color Fluid Appearance Fluid RBC /uL Fld Tot Nucleated Cell /uL Fluid Polynuclear WBCs % Fluid Mononuclear WBCs % Fluid Eosinophils % Fluid Other Cells Body Fluid Clot Fluid Glucose mg/dL Fluid Total Protein g/dL Fluid Albumin g/dL Fluid LDH U/L 10/17/21 Range/Units 14:45 WBC (4.5-11.0) X10^3/uL RBC (4.0-5.2) X10^6/uL Hgb (12.0-16.0) g/dL Hct (36-46) % MCV (80-100) fL MCH (26-34) PG MCHC (30-36) % RDW (11.6-14.8) % Plt Count (150-400) X10^3/uL Neut % (Auto) (50-75) % Lymph % (Auto) (25-40) % Freestone % (Auto) (3-14) % Eos % (Auto) (2-4) % Baso % (Auto) (0-2) % Neut # (Auto) (6713-7276) /uL Lymph # (Auto) (7622-9842) /uL Freestone # (Auto) (0-900) /uL Eos # (Auto) (0-450) /uL Baso # (Auto) (0-100) /uL PT (10.1-12.7) SECONDS INR (0.9-1.3) Sodium (137-145) mmol/L Potassium (3.4-5.1) mmol/L Chloride (98-107) mmol/L Carbon Dioxide (22-32) mmol/L BUN (7-17) mg/dL Creatinine (0.52-1.04) mg/dL Estimated GFR (>60) mL/min BUN/Creatinine Ratio (6-22) Glucose (80-110) mg/dL Calcium (8.4-10.2) mg/dL Total Bilirubin (0.2-1.3) mg/dL AST (14-36) IU/L ALT (<35) IU/L Alkaline Phosphatase (38-126) U/L Total Protein (6.3-8.2) g/dL Albumin (3.5-5.0) g/dL Globulin (1.7-4.1) g/dL Albumin/Globulin Ratio (1.0-2.8) Fluid Color Yellow Fluid Appearance Clear Fluid RBC < 1000 /uL Fld Tot Nucleated Cell 174 /uL Fluid Polynuclear WBCs 11 % Fluid Mononuclear WBCs 89 % Fluid Eosinophils 0 % Fluid Other Cells Not Reportable Body Fluid Clot No clots present Fluid Glucose 159 mg/dL Fluid Total Protein 2.4 g/dL Fluid Albumin 1.1 g/dL Fluid LDH 256 U/L MDM Narrative Medical decision making narrative: Patient presents for paracentesis at request of longterm. Ultrasound marked appropriate pockets of fluid, patient was consented and tolerated procedure well. 5L clear fluid removed, no evidence of SBP, patient's symptoms tremendously improved. Return precautions given and questions answered to her apparent satisfaction Discharge Plan Departure Patient Disposition: Home Clinical Impression: Abdominal ascites Activity Restrictions/Additional Instructions: *You have been diagnosed with [worsening ascites, status post paracentesis *What to do: *Please continue to take your regular medications as directed. *Please follow up with your primary care provider in 2-3 days, call for an appointment. Let them know you were seen in the Emergency Department and that we ask that you be seen in follow up. We will electronically transmit a record of today's note if your PCP is in our system *If you do not have a primary care provider please contact the [facility] Resource line at [phone]. They will ask some questions about your medical history and help get you set up with a doctor in the community. *Return to Emergency Department if you should have any new, worsening or concerning symptoms, such as [fever greater than 101 F, shaking chills, worsening pain, persistent vomiting or other bothersome symptoms] Prescriptions: No Action (DME) Glucose Test strips See Rx Instructions .Route .MEDSUPPLY Qty: 100 11RF Rx Instructions: Use to test blood sugars four times daily. amlodipine 10 mg tablet 10 mg PO DAILY Qty: 90 2RF atorvastatin [Lipitor] 20 mg tablet 40 mg PO BEDTIME Qty: 90 2RF insulin aspart U-100 [Novolog Flexpen U-100 Insulin] 100 unit/mL (3 mL) insulin pen 1 sliding scale dose subcut QIDACHS Qty: 15 2RF Lantus Solostar U-100 Insulin 100 unit/mL (3 mL) insulin pen 12 unit SUBCUT QPM Qty: 15 2RF sucralfate [Carafate] 1 gram tablet 1 g PO QID Qty: 360 2RF (DME) Briefs Misc See Rx Instructions .Route Qty: 50 6RF Rx Instructions: Use daily and as needed for urinary incontinence omeprazole 20 mg capsule,delayed release(DR/EC) 20 mg PO DAILY Qty: 90 3RF cholecalciferol (vitamin D3) [Vitamin D3] 1,000 unit Capsule 1,000 unit PO BID 0RF cyanocobalamin (vitamin B-12) [Vitamin B-12] 1,000 mcg Tablet 1,000 mcg PO DAILY 0RF lisinopril 20 mg Tablet 40 mg PO DAILY 0RF pantoprazole [Protonix] 20 mg Tablet,Delayed Release (Dr/Ec) 20 mg PO DAILY 0RF oxybutynin chloride 5 mg Tablet Extended Release 24hr 5 mg PO DAILY 0RF methocarbamol 500 mg Tablet 500 mg PO TID PRN (Reason: Muscle Spasm) Qty: 20 0RF sennosides [senna] 8.6 mg Tablet 8.6 mg PO DAILY Qty: 20 0RF polyethylene glycol 3350 17 gram Powder In Packet 17 gm PO DAILY Qty: 20 0RF bisacodyl 10 mg Suppository 10 mg MN DAILY PRN (Reason: Constipation) Qty: 30 0RF docusate sodium 100 mg Capsule 100 mg PO BID Qty: 30 0RF oxycodone 5 mg Tablet 5 mg PO Q3HR PRN (Reason: Pain, Moderate (4-6)) Qty: 20 0RF furosemide [Lasix] 20 mg tablet 20 mg PO DAILY Qty: 5 0RF Referrals: Colleen Early MD [Primary Care Provider] -
[2021-10-17 15:19] LABS: Body Fluid Tot Nucleated Cells 174 /uL
[2021-10-17 15:23] LABS: Albumin Body Fluid 1.1 g/dL; Glucose Body Fluid 159 mg/dL; LDH Body Fluid 256 U/L; Total Protein Body Fluid 2.4 g/dL
[2021-10-17 15:30] LABS: Body Fluid Red Blood Cells < 1000 /uL
[2021-10-17 15:39] LABS: Body Fluid Appearance CLEAR; Body Fluid Clotted? NO CLOTS PRESENT; Body Fluid Color YELLOW
[2021-10-17 15:59] LABS: Polynuclear WBC Body Fluid 11 %
[2021-10-17 16:00] LABS: Eosinophils Body Fluid 0 %; Mononuclear WBC Body Fluid 89 %
== END 2021-10-17 17:11 | disposition home or self-care (01) ==
PROVIDERS: Emergency Provider Emergency Medicine; PCP Internal Medicine
DX: R18.8 Other ascites (principal)
CPT/HCPCS: 36415; 49082; 76705; 80053; 82042; 82945; 83615; 84157; 85025; 85610; 89051; 99284

== ENCOUNTER 2021-10-24 17:48 | Emergency (ER) | payer MEDICARE, MEDICAID, SELFPAY ==
[2021-08-03 16:36] VITALS: BMI 22.0
[2021-10-24] VITALS (11 sets, daily range): BP systolic 108–163; BP diastolic 67–79; PULSE 108–120; RESP 17–26; TEMP 37; O2SAT 98–100
--- NOTE | 2021-10-24 17:56 | DI.RAD.S_ITS ---
PROCEDURE: XR CHEST 1V INDICATIONS: altered mental status TECHNIQUE: One view of the chest was acquired. COMPARISON: [facility], CR, XR CHEST 1V, 08/03/2021, 12:45. FINDINGS: Surgical changes and devices: ORIF of the left proximal humerus. Lungs and pleura: Lungs are clear. No pleural effusions or pneumothorax. Mediastinum: Mediastinal contours appear normal. Heart size is normal. Bones and chest wall: No suspicious bony lesions. Overlying soft tissues appear unremarkable. IMPRESSION: No acute process. Dictated by: Jean Pierre Alejandro M.D. on 10/24/2021 at 18:08 Approved by: Jean Pierre Alejandro M.D. on 10/24/2021 at 18:08
--- NOTE | 2021-10-24 18:03 | DI.CT.S_ITS ---
PROCEDURE: CT HEAD/BRAIN WO CON INDICATIONS: altered mental status TECHNIQUE: Noncontrast 4.5 mm thick angled axial sections acquired from the foramen magnum to the vertex, with coronal and sagittal reformats. For radiation dose reduction, the following was used: automated exposure control, adjustment of mA and/or kV according to patient size. COMPARISON: [facility], CT, CT HEAD/BRAIN WO CON, 08/03/2021, 12:57. FINDINGS: Image quality: Excellent. CSF spaces: Basal cisterns are patent. No extra-axial fluid collections. Ventricles are normal in size and shape. Brain: No midline shift. No intracranial masses or hemorrhage. Dobson-white matter interface is normal. Moderate cerebral and cerebellar volume loss with multifocal white matter chronic ischemic change noted. Old lacunar infarct noted in the right lentiform nucleus calcified atherosclerotic plaque noted involving the cavernous portions of both internal carotid arteries. Skull and face: Calvarium and visualized facial bones are intact, without suspicious lesions. Sinuses: Visualized sinuses and mastoids are clear. IMPRESSION: Atrophy and chronic ischemic change without acute hemorrhage or mass effect Approved by: Lucio Macias M.D. on 10/24/2021 at 17:41
--- NOTE | 2021-10-24 18:19 | ED.AMS ---
HPI - Altered Mental Status General Chief Complaint: Altered Mental Status Stated Complaint: LOC, Syncope Time Seen by Provider: 10/24/21 18:08 Source: family and EMS Mode of arrival: Wheelchair History of Present Illness HPI narrative: 66-year-old female smoker, former heavy drinker with extensive medical history? including myocardial infarction, kidney failure, sepsis, upper GI bleed presents?by EMS for evaluation of altered mental status with last known normal at about 12 or 12 30. Nursing staff states that she is less verbal and more confused than normal, there is no report of any fever chills nor vomiting or abdominal pain. She has had no known change in medications or diet. There is very little history reported back to us. She has been seen recently for increased ascites and has had a reported 15 L taken off with various paracentesis over the past few weeks. She is full code Related Data Home Medications Medication Instructions Recorded Confirmed cholecalciferol (vitamin D3) 25 1,000 unit PO BID 10/08/17 08/03/21 mcg (1,000 unit) capsule (Vitamin D3) cyanocobalamin (vitamin B-12) 1,000 mcg PO DAILY 08/02/19 08/03/21 1,000 mcg tablet (Vitamin B-12) lisinopril 20 mg tablet 40 mg PO DAILY 06/25/21 08/03/21 oxybutynin chloride 5 mg 5 mg PO DAILY 06/25/21 08/03/21 tablet,extended release 24 hr pantoprazole 20 mg tablet,delayed 20 mg PO DAILY 06/25/21 08/03/21 release (Protonix) Previous Rx's Medication Instructions Recorded Glucose Test strips #100 ea 03/28/21 amlodipine 10 mg tablet 10 mg PO DAILY #90 tab 03/29/21 atorvastatin 20 mg tablet (Lipitor) 40 mg PO BEDTIME #90 tab 03/29/21 insulin aspart U-100 100 unit/mL 1 sliding scale dose SUBCUT 03/29/21 (3 mL) subcutaneous pen (Novolog QIDACHS #15 ml Flexpen U-100 Insulin aspart) insulin glargine 100 unit/mL (3 12 unit (0.12 mL) SUBCUT QPM #15 ml 03/29/21 mL) subcutaneous pen (Lantus Solostar U-100 Insulin) sucralfate 1 gram tablet (Carafate) 1 g PO QID #360 tab 03/30/21 diaper,brief,adult,disposable #50 ea 05/03/21 (Briefs) bisacodyl 10 mg rectal suppository 10 mg VT DAILY PRN #30 ea 07/03/21 docusate sodium 100 mg capsule 100 mg PO BID #30 cap 07/03/21 methocarbamol 500 mg tablet 500 mg PO TID PRN #20 tab 07/03/21 oxycodone 5 mg tablet 5 mg PO Q3HR PRN #20 tab 07/03/21 polyethylene glycol 3350 17 gram 17 gm PO DAILY #20 ea 07/03/21 oral powder packet sennosides 8.6 mg tablet (senna) 8.6 mg PO DAILY #20 tab 07/03/21 omeprazole 20 mg capsule,delayed 20 mg PO DAILY #90 cap 08/17/21 release furosemide 20 mg tablet (Lasix) 20 mg PO DAILY #5 tab 09/20/21 Allergies Allergy/AdvReac Type Severity Reaction Status Date / Time Iodine and Iodide Containing Allergy Unknown Verified 10/24/21 17:52 Produc [IODINE AND IODIDE CONTAINING PRODUC] Review of Systems Review of Systems ROS Unobtainable: Unobtainable due to mental status/LOC Patient History Medical History Acute on chronic diastolic heart failure Anemia Dow's esophagus with esophagitis Bilateral lower extremity edema CKD (chronic kidney disease) stage 3, GFR 30-59 ml/min CVA (cerebral vascular accident) (~2017) Dementia Diabetes Fractures Gallbladder disease GERD (gastroesophageal reflux disease) GERD (gastroesophageal reflux disease) History of urinary incontinence (~2017) Hyperlipidemia Hypertension Overactive bladder Partial blindness Post-menopausal Screening for malignant neoplasm of colon Subdural hematoma Swelling of left lower extremity Upper GI bleed Vision disorder Surgical History Anesthesia History of cholecystectomy History of hip replacement (~2019) History of surgery on arm Tubal ligation status Family History Mother Heart disease Father No problems noted. Sister Cancer Social History marital status: household members: significant other caregiver/support person: Yes Smoking Status: Former smoker alcohol intake: former Smoking Status: Former smoker tobacco type: cigarettes alcohol intake frequency: holidays/special occasions only Alcohol type: hard liquor Substance Use Type: marijuana Exam Narrative Exam Narrative: GENERAL: [66] year old patient appears older than stated age. Well-developed patient, in moderate distress, confused, significant change from the last time I saw her HEAD: Atraumatic. Normocephalic. EYES: Pupils equal round and reactive. Extraocular motions intact. No scleral icterus. No injection or drainage. ENT: Nose without bleeding, purulent drainage. Throat without erythema, tonsillar hypertrophy or exudate. Airway patent. NECK: Trachea midline. Non tender CARDIOVASCULAR: Regular rate and rhythm without murmurs, gallops, or rubs. RESPIRATORY: Clear to auscultation. Breath sounds equal bilaterally. No wheezes, rales, or rhonchi. GASTROINTESTINAL: Abdomen soft, slight distention, no obvious pain EXTREMITIES: No edema or joint tenderness. BACK: Nontender without deformity or crepitance. No flank tenderness. NEURO: Cranial nerves 2-12 grossly intact, confused, nonsensical speech SKIN: No rash or erythema of visible areas Initial Vital Signs Initial Vital Signs: Vital Signs Temperature 98.6 F 10/24/21 17:48 Pulse Rate 118 H 10/24/21 17:48 Respiratory Rate 17 10/24/21 17:48 Blood Pressure 114/79 10/24/21 17:48 Pulse Oximetry 98 10/24/21 17:48 Scores NIH Stroke Scale Level of Conciousness: Not alert, but arousable by minor stim to obey, answer or respond Ask month/age: Answers neither question correctly, aphasic, stuporous, coma Open/close eyes, close hand: Performs one task correctly Best gaze horizontal: Normal Visual cuevas: No visual loss Facial palsy: Partial paralysis, total or near total paralysis of lower face Left arm drift: Drifts down, not to bed Right arm drift: Some effort against gravity, cannot maintain, drifts down to bed Left leg drift: No drift for full 5 sec Right leg drift: No effort against gravity Limb ataxia: Absent Sensory on face/arms/legs: Mild to moderate sensory loss, can tell touch Best language: Severe aphasia, not much is understood, fragmented Dysarthria: Severe, unintelligible Extinction or inattention: Visual, tactile, auditory, spacial or personal inattention to stimuli Total NIH Stroke scale score: 18 Course Orders Ordered: ED Orders 10/24/21 19:28 Acetaminophen Stat Ammonia (NH3) Stat Complete Blood Count AUTO DIFF Stat Comprehensive Metabolic Panel Stat Ethanol (ETOH) Stat Prothrombin Time INR Stat Salicylate Stat 10/24/21 19:33 COVID19 -Nasal RAPID/Pre-Proc Stat Discontinued Medications Diphenhydramine HCl (Diphenhydramine 50 Mg/Ml Vial) 25 mg IV NOW ONE Stop: 10/24/21 18:56 Last Admin: 10/24/21 19:21 Dose: 25 mg Documented by: YARIEL Furosemide (Furosemide 40 Mg/4 Ml Vial) 40 mg IV NOW ONE Stop: 10/24/21 20:10 Last Admin: 10/24/21 20:21 Dose: 40 mg Documented by: YARIEL Calcium Gluconate 4.65 meq/ (Sodium Chloride) 60 mls @ 180 mls/hr IV NOW ONE Stop: 10/24/21 20:28 Last Admin: 10/24/21 20:21 Dose: Not Given Documented by: YARIEL Methylprednisolone (Methylprednisolone 125 Mg/2 Ml Vial) 125 mg IV NOW ONE Stop: 10/24/21 18:56 Last Admin: 10/24/21 19:20 Dose: 125 mg Documented by: YARIEL Consultations Consultation #1: early contact with Stroke Center given concern for possible LVO. Dr. Figueroa has reviewed the case and recommends transfer [place] [facility] [place] Vital Signs Vital signs: Vital Signs - 8 hr 10/24/21 19:50 10/24/21 20:00 10/24/21 20:03 Pulse Rate 109 H 110 H 110 H Respiratory Rate 25 H 26 H 24 Blood Pressure 163/76 H 149/79 H Pulse Oximetry 100 100 100 MDM - Altered Mental Status Lab Data Result diagrams: 10/24/21 19:28 10/24/21 19:28 Labs: Lab Results 10/24/21 10/24/21 10/24/21 Range/Units 19:28 19:28 19:28 WBC 9.3 (4.5-11.0) X10^3/uL RBC 3.73 L (4.0-5.2) X10^6/uL Hgb 9.0 L (12.0-16.0) g/dL Hct 28.8 L (36-46) % MCV 77.2 L (80-100) fL MCH 24.2 L (26-34) PG MCHC 31.4 (30-36) % RDW 20.4 H (11.6-14.8) % Plt Count 476 H (150-400) X10^3/uL Neut % (Auto) 85.8 H (50-75) % Lymph % (Auto) 6.9 L (25-40) % [place] % (Auto) 6.4 (3-14) % Eos % (Auto) 0.3 L (2-4) % Baso % (Auto) 0.6 (0-2) % Neut # (Auto) 8000 H (3090-3388) /uL Lymph # (Auto) 600 L (3639-1166) /uL [place] # (Auto) 600 (0-900) /uL Eos # (Auto) 0 (0-450) /uL Baso # (Auto) 100 (0-100) /uL RBC Morphology See below Polychromasia 2+ H Anisocytosis 3+ H [place] Cells 2+ H Schistocytes 2+ H PT (10.1-12.7) SECONDS INR (0.9-1.3) Sodium 135 L (137-145) mmol/L Potassium 6.7 H* D (3.4-5.1) mmol/L Chloride 113 H (98-107) mmol/L Carbon Dioxide 12 L (22-32) mmol/L BUN 47 H (7-17) mg/dL Creatinine 2.90 H (0.52-1.04) mg/dL Estimated GFR 17 L (>60) mL/min BUN/Creatinine Ratio 16.2 (6-22) Glucose 246 H D (80-110) mg/dL Calcium 8.3 L (8.4-10.2) mg/dL Total Bilirubin 0.5 (0.2-1.3) mg/dL AST 17 (14-36) IU/L ALT 11 (<35) IU/L Alkaline Phosphatase 87 (38-126) U/L Ammonia < 9 L (9-30) umol/L Total Protein 6.4 (6.3-8.2) g/dL Albumin 2.9 L (3.5-5.0) g/dL Globulin 3.5 (1.7-4.1) g/dL Albumin/Globulin Ratio 0.8 L (1.0-2.8) Salicylates (<20) mg/dL Acetaminophen (10-30) ug/mL Ethyl Alcohol ( - 10) mg/dL SARS-CoV-2 (PCR) (Negative) 10/24/21 10/24/21 10/24/21 Range/Units 19:28 19:28 19:33 WBC (4.5-11.0) X10^3/uL RBC (4.0-5.2) X10^6/uL Hgb (12.0-16.0) g/dL Hct (36-46) % MCV (80-100) fL MCH (26-34) PG MCHC (30-36) % RDW (11.6-14.8) % Plt Count (150-400) X10^3/uL Neut % (Auto) (50-75) % Lymph % (Auto) (25-40) % [place] % (Auto) (3-14) % Eos % (Auto) (2-4) % Baso % (Auto) (0-2) % Neut # (Auto) (2306-0261) /uL Lymph # (Auto) (3396-6432) /uL [place] # (Auto) (0-900) /uL Eos # (Auto) (0-450) /uL Baso # (Auto) (0-100) /uL RBC Morphology Polychromasia Anisocytosis [place] Cells Schistocytes PT 11.7 (10.1-12.7) SECONDS INR 1.1 (0.9-1.3) Sodium (137-145) mmol/L Potassium (3.4-5.1) mmol/L Chloride (98-107) mmol/L Carbon Dioxide (22-32) mmol/L BUN (7-17) mg/dL Creatinine (0.52-1.04) mg/dL Estimated GFR (>60) mL/min BUN/Creatinine Ratio (6-22) Glucose (80-110) mg/dL Calcium (8.4-10.2) mg/dL Total Bilirubin (0.2-1.3) mg/dL AST (14-36) IU/L ALT (<35) IU/L Alkaline Phosphatase (38-126) U/L Ammonia (9-30) umol/L Total Protein (6.3-8.2) g/dL Albumin (3.5-5.0) g/dL Globulin (1.7-4.1) g/dL Albumin/Globulin Ratio (1.0-2.8) Salicylates < 1.0 (<20) mg/dL Acetaminophen < 10 (10-30) ug/mL Ethyl Alcohol < 10 ( - 10) mg/dL SARS-CoV-2 (PCR) Negative (Negative) Point of Care Testing Glucose POC [address] scan - head: Radiologist's Impression: [address] [address] [address] Scan Report Signed Patient: Kristine Moon MR#: [id number] : 1955 Acct:[id number] Age/Sex: 66 / F Date of Service: 10/24/21 Loc: ED Accession Number: [id number] ?? Procedure: CT head/brain wo con Ordering Provider: Shwetha Taylor D.O. PROCEDURE:? CT HEAD/BRAIN WO CON ? INDICATIONS:? altered mental status ? TECHNIQUE:? Noncontrast 4.5 mm thick angled axial sections acquired from the foramen magnum to the vertex, with coronal and sagittal reformats.? For radiation dose reduction, the following was used:? automated exposure control, adjustment of mA and/or kV according to patient size.? ? COMPARISON:? [facility], CT, CT HEAD/BRAIN WO CON, 08/03/2021, 12:57. ? FINDINGS:? Image quality:? Excellent.? ? CSF spaces:? Basal cisterns are patent.? No extra-axial fluid collections.? Ventricles are normal in size and shape.? ? Brain:? No midline shift.? No intracranial masses or hemorrhage.? Dobson-white matter interface is normal.? Moderate cerebral and cerebellar volume loss with multifocal white matter chronic ischemic change noted.? Old lacunar infarct noted in the right lentiform nucleus calcified atherosclerotic plaque noted involving the cavernous portions of both internal carotid arteries.? ? Skull and face:? Calvarium and visualized facial bones are intact, without suspicious lesions.? ? Sinuses:? Visualized sinuses and mastoids are clear.? ? IMPRESSION:? Atrophy and chronic ischemic change without acute hemorrhage or mass effect ? ? ? Approved by: Lucio Macias M.D. on 10/24/2021 at 17:41? MDM Narrative Medical decision making narrative: 66-year-old female with significant chronic medical problems presents pain guarded condition. She is activated as a code stroke / Code IR given severity of symptoms and elevated LAMS score. She is not a tPA candidate given last known well being upwards of 6 hours prior to her arrival. There was close interaction with the Stroke Center and we elected to hold off on CT angiography here given her history of anaphylaxis and poor kidney function. I did pre treat for anaphylaxis in the event that she goes for angiography at [facility]. She was transported by air lift for definitive care which is likely to include MR with angiography Critical Care Time Critical Care Time Critical Care Time: Yes Total Critical Care Time: 30 Attestation: The high probability of a clinically significant, sudden or life threatening deterioration of the [Neuro] system(s) required my full and direct attention, intervention and personal management. The aggregate critical care time was [30] minutes. This time is in addition to time spent performing reported procedures but includes the following: [x] Data Review and interpretation [x] Patient assessment and monitoring of vital signs [x] Documentation [x] Medication orders and management Discharge Plan Departure Patient Disposition: [facility] Clinical Impression: Acute stroke due to ischemia Prescriptions: No Action (DME) Glucose Test strips See Rx Instructions .Route .MEDSUPPLY Qty: 100 11RF Rx Instructions: Use to test blood sugars four times daily. amlodipine 10 mg tablet 10 mg PO DAILY Qty: 90 2RF atorvastatin [Lipitor] 20 mg tablet 40 mg PO BEDTIME Qty: 90 2RF insulin aspart U-100 [Novolog Flexpen U-100 Insulin] 100 unit/mL (3 mL) insulin pen 1 sliding scale dose subcut QIDACHS Qty: 15 2RF Lantus Solostar U-100 Insulin 100 unit/mL (3 mL) insulin pen 12 unit SUBCUT QPM Qty: 15 2RF sucralfate [Carafate] 1 gram tablet 1 g PO QID Qty: 360 2RF (DME) Briefs Misc See Rx Instructions .Route Qty: 50 6RF Rx Instructions: Use daily and as needed for urinary incontinence omeprazole 20 mg capsule,delayed release(DR/EC) 20 mg PO DAILY Qty: 90 3RF cholecalciferol (vitamin D3) [Vitamin D3] 1,000 unit Capsule 1,000 unit PO BID 0RF cyanocobalamin (vitamin B-12) [Vitamin B-12] 1,000 mcg Tablet 1,000 mcg PO DAILY 0RF lisinopril 20 mg Tablet 40 mg PO DAILY 0RF pantoprazole [Protonix] 20 mg Tablet,Delayed Release (Dr/Ec) 20 mg PO DAILY 0RF oxybutynin chloride 5 mg Tablet Extended Release 24hr 5 mg PO DAILY 0RF methocarbamol 500 mg Tablet 500 mg PO TID PRN (Reason: Muscle Spasm) Qty: 20 0RF sennosides [senna] 8.6 mg Tablet 8.6 mg PO DAILY Qty: 20 0RF polyethylene glycol 3350 17 gram Powder In Packet 17 gm PO DAILY Qty: 20 0RF bisacodyl 10 mg Suppository 10 mg VT DAILY PRN (Reason: Constipation) Qty: 30 0RF docusate sodium 100 mg Capsule 100 mg PO BID Qty: 30 0RF oxycodone 5 mg Tablet 5 mg PO Q3HR PRN (Reason: Pain, Moderate (4-6)) Qty: 20 0RF furosemide [Lasix] 20 mg tablet 20 mg PO DAILY Qty: 5 0RF Referrals: Colleen Early MD [Primary Care Provider] -
[2021-10-24] MEDS: methylPREDNISolone 125 MG/2 ML VIAL IV (19:20)
[2021-10-24] MEDS: diphenhydrAMINE 50 MG/ML VIAL 25 MG IV (19:21)
[2021-10-24 19:52] LABS: INR 1.1 (0.9-1.3); Prothrombin Time 11.7 SECONDS (10.1-12.7)
[2021-10-24 19:57] LABS: Ammonia (NH3) < 9 umol/L (9-30)
[2021-10-24 19:58] LABS: Acetaminophen < 10 ug/mL (10-30); Ethanol (ETOH) < 10 mg/dL; Salicylate < 1.0 mg/dL (<20)
[2021-10-24 19:59] LABS: Alanine Aminotransferase 11 IU/L (<35); Albumin 2.9 g/dL (3.5-5.0); Albumin Globulin Ratio 0.8 (1.0-2.8); Alkaline Phosphatase 87 U/L (38-126); Aspartate Aminotransferase 17 IU/L (14-36); BUN Creatinine Ratio 16.2 (6-22); Bilirubin Total 0.5 mg/dL (0.2-1.3); Blood Urea Nitrogen 47 mg/dL (7-17); Calcium 8.3 mg/dL (8.4-10.2); Carbon Dioxide 12 mmol/L (22-32); Chloride 113 mmol/L (98-107); Estimated Glomerular Filt Rate 17 mL/min (>60); Globulin 3.5 g/dL (1.7-4.1); Glucose 246 mg/dL (80-110); HEMOLYSIS < 15 (0-50); Sodium 135 mmol/L (137-145); Total Protein 6.4 g/dL (6.3-8.2)
[2021-10-24 20:07] LABS: Potassium 6.7 mmol/L (3.4-5.1)
[2021-10-24 20:13] LABS: Add Manual Diff / Slide Review NO; Basophils Absolute Auto 100 /uL (0-100); Basophils Percent Auto 0.6 % (0-2); Eosinophils Absolute Auto 0 /uL (0-450); Eosinophils Percent Auto 0.3 % (2-4); Hematocrit 28.8 % (36-46); Lymphocytes Absolute Auto 600 /uL (1100-4500); Lymphocytes Percent Auto 6.9 % (25-40); Mean Corpuscular HGB Conc 31.4 % (30-36); Mean Corpuscular Hemoglobin 24.2 PG (26-34); Mean Corpuscular Volume 77.2 fL (80-100); Monocytes Absolute Auto 600 /uL (0-900); Monocytes Percent Auto 6.4 % (3-14); Neutrophils Absolute Auto 8000 /uL (1500-7000); Neutrophils Percent Auto 85.8 % (50-75); Platelet Count 476 X10^3/uL (150-400); Red Blood Cell Count 3.73 X10^6/uL (4.0-5.2); Red Cell Distribution Width 20.4 % (11.6-14.8); White Blood Cell Count 9.3 X10^3/uL (4.5-11.0)
[2021-10-24 20:15] LABS: COVID19 -Nasal RAPID Negative (Negative)
[2021-10-24] MEDS: FUROSEMIDE 40 MG/4 ML VIAL IV (20:21)
[2021-10-24 21:02] LABS: Burr Cells 2+
[2021-10-24 21:03] LABS: Anisocytosis 3+
[2021-10-24 21:04] LABS: Polychromasia 2+; Schistocytes 2+
== END 2021-10-24 20:20 | disposition short-term general hospital (02) ==
PROVIDERS: Emergency Medicine; Emergency Provider Emergency Medicine; PCP Internal Medicine
DX: I63.9 Cerebral infarction, unspecified (principal); Z20.822 Contact with and (suspected) exposure to COVID-19
CPT/HCPCS: 36415; 70450; 71045; 80053; 80320; 80329; 82140; 82962; 85025; 85610; 87635; 96374; 96375; 99285; 99291; C9803; G0480; J1200; J1940; J2930